=== PATIENT | male | born 1965 | race Caucasian/White ===

== ENCOUNTER → 2016-10-17 | Outpatient (CLI) | payer OTHER ==
[~2016-10-17] MED LIST: ANSHCCR/ TOP; ASCO500T3 PO; ASPI81TA28 PO; ATOR-26 PO; DEXT4CHW60 PO; DOCU-94 PO; EMOL-19 TOP; EMOL-31 TOP; FERR325T18 PO; FLUO20CA35 PO; GABA800T PO; GLUC-338 PO; INSDGI SC; INSHRIE SQ; INSUINJ17 SC; LEVO-366 PO; LEVO125T72 PO; LEVO300T5 PO; LSN25 PO; METF-384 PO
[2016-10-17 16:48] LABS: BASO % 1.5 %; BASO ABS # 0.11 K/uL (0-0.2); EOS % 1.7 %; HEMATOCRIT 30.4 % (42-52); IG% 0.1 %; LYMPH % 29.8 %; LYMPH ABS # 2.23 K/uL (1.2-3.4); MEAN CELL VOLUME 87.6 fL (80-100); MEAN CORPUSCULAR HEMOGLOBIN 30.3 pg (25-34); MEAN PLATELET VOLUME 9.7 fL (7.4-10.4); NEUT % 57.9 %; PLATELET COUNT 323 K/uL (130-400); RED BLOOD COUNT 3.47 M/uL (4.7-6.1); WHITE BLOOD COUNT 7.48 K/uL (4.8-10.8)
[2016-10-17 16:50] LABS: COMPLETE YES; MEAN CORPUSCULAR HGB CONC 34.5 g/dl (32-36)
[2016-10-17 17:09] LABS: ALB/GLOB RATIO 0.9 (0.9-2); ALKALINE PHOSPHATASE 87 U/L (45-117); ALT/SGPT 24 U/L (12-78); AST/SGOT 13 U/L (15-37); BLOOD UREA NITROGEN 23 mg/dl (7-18); BUN/CREATININE RATIO 18.9 (10-20); CALCIUM 8.8 mg/dl (8.5-10.1); CARBON DIOXIDE 30 mmol/L (21-32); CHLORIDE 104 mmol/L (98-107); GLUCOSE 63 mg/dl (70-99); POTASSIUM 4.6 mmol/L (3.5-5.1); SODIUM 141 mmol/L (136-145)
--- NOTE | 2016-10-20 07:46 | CODING QUERY NO DIAGNOSIS ---
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 Please assist us with providing a diagnosis/symptom for the test(s) below: A diagnosis/symptom was not documented on your Order. A valid diagnosis/symptom is required to bill all insurances. Please remember that we are unable to code a diagnosis of rule out, probable, possible, questionable, or suspected. Tests that require a diagnosis: DOS: 10/17/16 * CBC DIAGNOSIS: * CMP DIAGNOSIS: * TROPONIN DIAGNOSIS: Provider Signature: Date: Thank you Yos[facility] Information Management Once completed, please kindly fax back to [phone] For questions please call [phone]
== END ==
LOC: C.LABSPEC 16:22
PROVIDERS: ATTEND Nurse Practitioner Adult Health
DX: Z00.00 Encounter for general adult medical examination without abnormal findings (principal)

== ENCOUNTER 2016-11-14 06:16 | Emergency (ER) | payer OTHER ==
[~2016-11-14] VITALS: Ht 182.9 cm; Wt 73.5 kg
[~2016-11-14 06:16] MED LIST changes: -ASCO500T3 PO; -DEXT4CHW60 PO; -DOCU-94 PO; -EMOL-19 TOP; -FERR325T18 PO; -INSHRIE SQ; -LEVO-366 PO; -LEVO300T5 PO; -LSN25 PO; -METF-384 PO
[2016-11-14 06:24] VITALS: TEMP 36.6; Ht 182.9 cm; Wt 73.5 kg
[2016-11-14] MEDS ORDERED: DOCU-94 PO (06:32)
[2016-11-14] MEDS ORDERED: FERR325T18 PO (06:32)
[2016-11-14] MEDS ORDERED: LSN25 PO (06:36)
[2016-11-14] MEDS ORDERED: ANSHCCR/ TOP (06:36)
[2016-11-14] MEDS ORDERED: LEVO300T31 PO (06:36)
[2016-11-14] MEDS ORDERED: DEXT4CHW60 PO (06:36)
[2016-11-14] MEDS ORDERED: METF-384 PO (06:37)
[2016-11-14] MEDS ORDERED: ASCO500T3 PO (06:38)
[2016-11-14] MEDS ORDERED: EMOL-19 TOP (06:38)
[2016-11-14] MEDS ORDERED: INSHRIE SQ (06:42)
[2016-11-14 06:50] VITALS: O2SAT 99
--- NOTE | 2016-11-14 06:50 | EMERGENCY ROOM VISIT NOTE ---
History Report prepared by Sarah: Karla June Under the Supervision of: Dr. Charli Chaney M.D. First contact with patient: 06:36 Chief Complaint: SYNCOPE Stated Complaint: SYNCOPE,FALL,LACERATION Nursing Triage Summary: arrived via amb with als. pt got up to go to the br and had a syncopal episode struck his head on the bed. ? 10 second loc. small laceration to scalp and abrasion to right lateral back area. History of Present Illness The patient is a 51 year old male who presents to the Emergency Room with complaints of a sudden syncopal episode that occurred prior to arrival. He currently rates his discomfort as a 2/10 in severity. The patient states that this morning he had gotten up to go to the bathroom and then suddenly lost consciousness for 10 seconds. The patient notes that he hit the back of his head and now has a laceration to his scalp. He states that this has never happened in the past and notes that he feels back to baseline currently. The patient states that he felt his blood pressure was low this morning. He reports a normal fluid intake. The patient denies feeling ill recently. The patient denies any chest pain, shortness of breath, fever, or chills. He states that he has a history of diabetes and notes that his blood glucose levels have recently been running high. The patient states that he smokes 1 pack of cigarettes per day. He notes a history of anemia, but states that he is unsure why. Source of History: patient Onset: prior to arrival Position: other (global) Symptom Intensity: 2/10 Quality: other (syncopal episode) Timing: other (sudden) Associated Symptoms: + LOC, No SOB, No chest pain, No chills, No fevers Note: Associated Symptoms: blood pressure low Review of Systems All systems have been listed, reviewed, and are negative other than those previously mentioned. Please see Additional Medical History Sheet. Past Medical & Surgical Medical Problems: (1) Anemia (2) Depression (3) Diabetes mellitus type I (4) Dyslipidemia (5) Eczema (6) Hypothyroidism (7) Neuropathy Family History Diabetes mellitus Heart disease Social History Smoking Status: Current Every Day Smoker Alcohol Use: none Drug Use: none Marital Status: single Housing Status: other Occupation Status: unemployed Current/Historical Medications Scheduled Ascorbic Acid (Vitamin C), 500 MG PO BID Aspirin (Aspirin Ec), 81 MG PO DAILY Atorvastatin (Lipitor), 80 MG PO DAILY Emollient (Lubriderm), 1 APPLN TOP BID Ferrous Gluconate (Ferrous Gluconate), 324 MG PO TID Fluoxetine (Prozac), 20 MG PO DAILY Hydrocortisone (Hydrocortisone 2.5%), 1 APPLN TOP BID Insulin Glargine (Lantus), 24 UNITS SC QPM Insulin Human Regular (Humulin R), SQ TID Levothyroxine Sodium (Levothyroxine Sodium), 300 MCG PO DAILY Lisinopril (Lisinopril), 2.5 MG PO DAILY Metformin Hcl (Glucophage), 1,000 MG PO BID Scheduled PRN Dextrose (Diabetic Use) (Glucose), 8 GM PO QID PRN for UNDECIDED Docusate Sodium (Colace), 100 MG PO BID PRN for Constipation Gabapentin (Neurontin), 800 MG PO TID PRN for UNDECIDED Allergies Coded Allergies: NO KNOWN DRUG ALLERGIES (Verified Allergy, Unknown, NONE, 11/14/16) Physical Exam Vital Signs Date Time Temp Pulse Resp B/P Pulse Ox O2 Delivery O2 Flow Rate FiO2 11/14/16 11:35 100 16 148/97 98 11/14/16 10:29 11/14/16 10:23 71 141/89 99 71 120/87 89 120/78 11/14/16 09:52 70 18 151/96 98 Room Air 11/14/16 07:43 69 18 142/87 99 Room Air 11/14/16 07:05 68 132/78 72 121/76 78 93/63 11/14/16 06:50 99 Room Air 11/14/16 06:25 71 11/14/16 06:24 36.6 73 18 111/67 99 Room Air Physical Exam GENERAL: Patient awake, alert, oriented x 3. Patient follows commands. Patient does not appear toxic. Patient is adequately hydrated and well- nourished. SKIN: No erythema, pallor, cyanosis or rash HEENT: 3 cm linear laceration on the top of his scalp. Pupils equal, reactive to light and accommodation. Ears normal. No hemotympanum, Lion sign, or raccoon sign. Oral cavity and posterior pharynx appear normal. Neck: Without adenopathy, no neck vein distention. LUNGS: Clear to auscultation. No wheezes, no rales, no rhonchi. HEART: No murmurs. No gallops. No rubs ABDOMEN: No masses, no rebound, no hepatomegaly or splenomegaly. EXTREMITIES: No signs of trauma. No pedal or pretibial edema. No calf or thigh tenderness. NEUROLOGIC: Cranial nerves II-XII within normal limits. No gross motor sensory function deficits. Medical Decision & Procedures ER Provider Diagnostic Interpretation: X ray results are stated below per my interpretation and the radiologist's interpretation. CHEST ONE VIEW PORTABLE CLINICAL HISTORY: syncope TRAUMA COMPARISON STUDY: 04/28/2016 FINDINGS: The chest has an emphysematous configuration. The heart is normal in size. There is no failure. There is no focal pulmonary consolidation. There are no pleural effusions. There is no pneumothorax.[ IMPRESSION: No active disease in the chest. Electronically signed by: Jason Ram M.D. 11/14/2016 6:58 AM Dictated Date/Time: 11/14/2016 6:58 AM Laboratory Results 11/14/16 06:23 11/14/16 06:23 Test 11/14/16 06:23 Red Blood Count 3.85 M/uL (4.7-6.1) Mean Corpuscular Volume 88.8 fL (80-100) Mean Corpuscular Hemoglobin 29.9 pg (25-34) Mean Corpuscular Hemoglobin Concent 33.6 g/dl (32-36) RDW Standard Deviation 45.1 fL (36.4-46.3) RDW Coefficient of Variation 13.8 % (11.5-14.5) Mean Platelet Volume 9.7 fL (7.4-10.4) Anion Gap 4.0 mmol/L (3-11) Est Creatinine Clear Calc Drug Dose 64.2 ml/min Estimated GFR () 66.5 Estimated GFR (Non- 57.4 BUN/Creatinine Ratio 11.6 (10-20) Calcium Level 9.1 mg/dl (8.5-10.1) Total Bilirubin 0.4 mg/dl (0.2-1) Aspartate Amino Transf (AST/SGOT) 13 U/L (15-37) Alanine Aminotransferase (ALT/SGPT) 35 U/L (12-78) Alkaline Phosphatase 95 U/L (45-117) Troponin I < 0.015 ng/ml (0-0.045) Total Protein 7.0 gm/dl (6.4-8.2) Albumin 3.4 gm/dl (3.4-5.0) Globulin 3.6 gm/dl (2.5-4.0) Albumin/Globulin Ratio 0.9 (0.9-2) Beta-Hydroxybutyric Acid 0.85 mg/dL (0.2-2.81) Laboratory results as stated above per my review. Medications Administered Medications (Trade) Dose Ordered Sig/Radha Route Start Time Stop Time Status Last Admin Dose Admin Sodium Chloride 1,000 ml @ 999 mls/hr Q1H1M IV 11/14/16 07:00 11/14/16 12:09 DC 11/14/16 06:58 999 MLS/HR Sodium Chloride (Nss 1000ml) 1,000 ml @ 1,000 mls/hr Q1H ONCE IV 11/14/16 08:30 11/14/16 09:29 DC 11/14/16 08:30 1,000 MLS/HR Atorvastatin Calcium (Lipitor Tab) 80 mg ONE ONCE PO 11/14/16 09:00 11/14/16 09:01 DC 11/14/16 09:45 80 MG Fluoxetine HCl (Prozac Cap) 20 mg NOW ONCE PO 11/14/16 09:00 11/14/16 09:01 DC 11/14/16 09:44 20 MG Gabapentin (Neurontin Cap) 800 mg ONE ONCE PO 11/14/16 09:00 11/14/16 09:01 DC 11/14/16 09:45 800 MG Docusate Sodium (coLACE CAP) 100 mg NOW ONCE PO 11/14/16 09:00 11/14/16 09:01 DC 11/14/16 09:44 100 MG Levothyroxine Sodium (Synthroid Tab) 300 mcg ONE ONCE PO 11/14/16 09:00 11/14/16 09:01 DC 11/14/16 09:46 300 MCG Metformin HCl (Glucophage Tab) 1,000 mg ONE ONCE PO 11/14/16 09:00 11/14/16 09:01 DC 11/14/16 09:46 1,000 MG Procedure Location: Scalp Total length: 3 cm Complexity: Simple Verbal consent was obtained after the risks and benefits were explained, including but not limited to bleeding, scarring, infection, pain, and bone/ nerve damage. At this time, the risks of the procedure are less than the risks of NOT performing the procedure. A time out was taken and the correct patient and site identified. The scalp was prepped with betadine. Copious irrigation was performed using saline. The skin was re-prepped with betadine, the hair cleared from the wound, and a sterile field set. The wound was explored for foreign bodies and none found. Debridement was not performed. The wound edges were approximated using 3 surgical sunshine in the standard fashion. Hemostasis and excellent approximation was achieved. Antibacterial ointment and a sterile dressing applied. Detailed wound care instructions and signs and symptoms of infection reviewed with the patient. No complications and the patient tolerated the procedure well. ECG Indication: syncope Rate (beats per minute): 71 Rhythm: normal sinus Findings: no acute ischemic change, no ectopy ED Course 0636: Past medical records reviewed. The patient was evaluated in room A2. A complete history and physical examination was performed. 0700: Ordered Sodium Chloride 1000 ml @ 999 mls/hr IV. 0817: I reevaluated the patient and he is resting comfortably. 0830: Ordered Sodium Chloride 1000 ml @ 1000 mls/hr IV. 0845: I performed the staple laceration repair at this time. See procedure note for further detail. 0900: Ordered Metformin HCl 1000 mg PO, Synthroid Tab 300 mcg PO, Colace Cp 100 mg PO, Gabapentin 800 mg PO, Prozac Cp 20 mg PO, Lipitor Tab 80 mg PO. 1115: I reevaluated the patient and he is resting comfortably. I discussed all the exam findings with him and I discussed the treatment plan. He verbalized complete understanding and agreement. The patient is ready to go home. Medical Decision Nurses notes reviewed. Medical history sheet reviewed. Differential diagnosis includes but is not limited to: arrhythmia, metabolic disorder, hypoglycemia, anemia, TIA, CVA, vasovagal syncope. The patient had a syncopal episode this morning and fell striking the top of his head. He incurred a 3 cm laceration on his scalp. Multiple labs, imaging and EKG were obtained here. Please see above. The patient was felt to be slightly orthostatic although he is most likely orthostatic all the time. He has a history of diabetic neuropathy. He normally uses a cane. The patient has no evidence for an acute cardiac arrhythmia or other cardiopulmonary pathology. Lab work was evaluated. Blood sugar slightly elevated. The patient had not yet taken any of his meds this morning. The patient was given a few liters of fluid here and did feel significantly better. The laceration was repaired using 3 sunshine. The patient was felt safe to return to the retirement. Impression Primary Impression: Orthostatic hypotension Additional Impressions: Anemia Diabetes Scalp laceration Scribe Attestation The scribe's documentation has been prepared under my direction and personally reviewed by me in its entirety. I confirm that the note above accurately reflects all work, treatment, procedures, and medical decision making performed by me. Departure Information Dispostion Home / Self-Care Referrals Deniz ESQUIVEL (PCP) Forms HOME CARE DOCUMENTATION FORM, IMPORTANT VISIT INFORMATION Patient Instructions My [facility] Additional Instructions Continue all of your current medications as prescribed. Drink extra fluids. [place] should be removed in 7-8 days Clean daily with warm soap and water and cover with bacitracin ointment. Problem Qualifiers
[2016-11-14 06:58] LABS: HEMATOCRIT 34.2 % (42-52); MEAN CELL VOLUME 88.8 fL (80-100); MEAN CORPUSCULAR HEMOGLOBIN 29.9 pg (25-34); MEAN CORPUSCULAR HGB CONC 33.6 g/dl (32-36); MEAN PLATELET VOLUME 9.7 fL (7.4-10.4); PLATELET COUNT 324 K/uL (130-400); RED BLOOD COUNT 3.85 M/uL (4.7-6.1); WHITE BLOOD COUNT 7.08 K/uL (4.8-10.8)
[2016-11-14] MEDS ORDERED: SODIUM CHLORIDE 0.9% 1000ML 1,000 ML IV SCH (07:00)
--- NOTE | 2016-11-14 07:01 | DIAGNOSTIC IMAGING REPORT ---
CHEST ONE VIEW PORTABLE CLINICAL HISTORY: syncope TRAUMA COMPARISON STUDY: 04/28/2016 FINDINGS: The chest has an emphysematous configuration. The heart is normal in size. There is no failure. There is no focal pulmonary consolidation. There are no pleural effusions. There is no pneumothorax.[ IMPRESSION: No active disease in the chest. Electronically signed by: Jason Ram M.D. 11/14/2016 6:58 AM Dictated Date/Time: 11/14/2016 6:58 AM
[2016-11-14 07:05] LABS: ALT/SGPT 35 U/L (12-78); AST/SGOT 13 U/L (15-37); BLOOD UREA NITROGEN 16 mg/dl (7-18); BUN/CREATININE RATIO 11.6 (10-20); CALCIUM 9.1 mg/dl (8.5-10.1); CARBON DIOXIDE 31 mmol/L (21-32); CHLORIDE 102 mmol/L (98-107); GLUCOSE 309 mg/dl (70-99); POTASSIUM 4.8 mmol/L (3.5-5.1); SODIUM 137 mmol/L (136-145)
[2016-11-14 07:08] LABS: ALB/GLOB RATIO 0.9 (0.9-2); ALKALINE PHOSPHATASE 95 U/L (45-117)
[2016-11-14 07:15] LABS: BETA-HYDROXYBUTYRATE 0.85 mg/dL (0.2-2.81)
[2016-11-14] MEDS ORDERED: SODIUM CHLORIDE 0.9% 1000ML 1,000 ML IV ONE (08:30)
[2016-11-14] MEDS ORDERED: LEVOTHYROXINE 200 MCG TAB PO ONE (09:00)
[2016-11-14] MEDS ORDERED: GABAPENTIN 400 MG CAP PO ONE (09:00)
[2016-11-14] MEDS ORDERED: METFORMIN HCL 500 MG TAB PO ONE (09:00)
[2016-11-14] MEDS ORDERED: ATORVASTATIN 40 MG TAB PO ONE (09:00)
[2016-11-14] MEDS ORDERED: FLUOXETINE HCL 20 MG CAP PO ONE (09:00)
[2016-11-14] MEDS ORDERED: DOCUSATE SODIUM 100 MG CAP PO ONE (09:00)
[2016-11-14 11:35] VITALS: BP 148/97; PULSE 100; O2SAT 98
[2017-06-28] MEDS ORDERED: LVQ750 PO (18:46)
[2017-06-28] MEDS ORDERED: DXY100 PO (18:46)
[2017-06-28] MEDS ORDERED: SYN50 PO (19:05)
== END 2016-11-14 11:36 | disposition home or self-care (01) ==
LOC: EDBD 06:16 → C.EDA 06:18
DX: I95.1 Orthostatic hypotension (principal); S01.01XA Laceration without foreign body of scalp, initial encounter; W22.09XA Striking against other stationary object, initial encounter; W19.XXXA Unspecified fall, initial encounter; E10.40 Type 1 diabetes mellitus with diabetic neuropathy, unspecified; D64.9 Anemia, unspecified; F32.9 Major depressive disorder, single episode, unspecified; E78.5 Hyperlipidemia, unspecified; E03.9 Hypothyroidism, unspecified; F17.210 Nicotine dependence, cigarettes, uncomplicated; Z83.3 Family history of diabetes mellitus; Z79.82 Long term (current) use of aspirin; Z79.899 Other long term (current) drug therapy; Z79.4 Long term (current) use of insulin

== ENCOUNTER 2016-12-09 12:22 | Emergency (ER) | payer OTHER ==
[~2016-12-09] VITALS: Ht 182.9 cm; Wt 78.8 kg
[~2016-12-09 12:22] MED LIST changes: +ASCO500T3 PO; +DEXT4CHW60 PO; +DOCU-94 PO; +EMOL-19 TOP; -EMOL-31 TOP; +FERR325T18 PO; -GLUC-338 PO; +INSHRIE SQ; -INSUINJ17 SC; -LEVO125T72 PO; +LEVO300T31 PO; +LSN25 PO; +METF-384 PO
[2016-12-09 12:39] VITALS: O2SAT 100
[2016-12-09 12:41] VITALS: TEMP 36.5; Ht 182.9 cm; Wt 78.8 kg
[2016-12-09] MEDS ORDERED: SODIUM CHLORIDE 0.9% 1000ML 1,000 ML IV STA ×2 (12:57)
[2016-12-09 13:16] LABS: BASO % 1.9 %; BASO ABS # 0.11 K/uL (0-0.2); COMPLETE YES; EOS % 4.2 %; HEMATOCRIT 30.3 % (42-52); IG% 0.2 %; LYMPH % 37.9 %; LYMPH ABS # 2.17 K/uL (1.2-3.4); MEAN CELL VOLUME 89.6 fL (80-100); MEAN CORPUSCULAR HEMOGLOBIN 30.5 pg (25-34); MEAN PLATELET VOLUME 8.9 fL (7.4-10.4); NEUT % 48.8 %; PLATELET COUNT 316 K/uL (130-400); RED BLOOD COUNT 3.38 M/uL (4.7-6.1); WHITE BLOOD COUNT 5.73 K/uL (4.8-10.8)
[2016-12-09] MEDS ORDERED: NovoLIN-R INSULIN PER UNIT CHARGE IV STA (13:22)
[2016-12-09 13:25] LABS: INR 0.9 (0.9-1.1); PROTHROMBIN TIME (PATIENT) 10.1 SECONDS (9.0-12.0)
--- NOTE | 2016-12-09 13:25 | DIAGNOSTIC IMAGING REPORT ---
CHEST ONE VIEW PORTABLE CLINICAL HISTORY: EVALUATE WEAKNESS mental status change COMPARISON STUDY: 11/14/2016 FINDINGS: Possible right suprahilar nodular density measuring 8.5 mm currently. Lungs otherwise are clear. Diaphragms smooth. Minimal chronic colonic atelectasis left base. IMPRESSION: 1. 8.5 mm nodular density versus overlap artifact right suprahilar region. 2. CT of the chest is suggested as follow-up. Electronically signed by: Miguel Connolly M.D. 12/09/2016 1:24 PM Dictated Date/Time: 12/09/2016 1:22 PM
[2016-12-09 13:38] LABS: ALKALINE PHOSPHATASE 79 U/L (45-117); ALT/SGPT 22 U/L (12-78); AST/SGOT 11 U/L (15-37); BLOOD UREA NITROGEN 21 mg/dl (7-18); BUN/CREATININE RATIO 17.9 (10-20); CARBON DIOXIDE 27 mmol/L (21-32); CHLORIDE 104 mmol/L (98-107); CKMB/CK RATIO 2.2 (0-3.0); GLUCOSE 483 mg/dl (70-99); MAGNESIUM 2.2 mg/dl (1.8-2.4); SODIUM 136 mmol/L (136-145)
[2016-12-09 13:59] LABS: BETA-HYDROXYBUTYRATE 0.64 mg/dL (0.2-2.81)
[2016-12-09] MEDS ORDERED: OPTIRAY 320 IV PRN (16:00)
--- NOTE | 2016-12-09 16:31 | DIAGNOSTIC IMAGING REPORT ---
CHEST CTA for PULMONARY ARTERIES CT DOSE: 271.10 mGy.cm HISTORY: Abnormal chest x-ray. Hypotension. Weakness. TECHNIQUE: Multiaxial CT images of the chest were performed following the intravenous administration of contrast to evaluate the pulmonary arteries. Maximal intensity projection images were also obtained. COMPARISON STUDY: Chest CTA 04/28/2016. FINDINGS: There is a normal caliber thoracic aorta with no evidence for dissection. There is no evidence for pulmonary embolus. No pleural effusions. No pneumothorax. The liver and spleen are unremarkable. There is a right renal cyst. No mediastinal or hilar lymphadenopathy. Mild emphysema. Patchy groundglass densities at the lung bases. This favors dependent change. A 3 mm ground glass nodule within the lingula. This is best seen on image 196. This is of doubtful clinical significance given its small size. This remains stable. Slightly distended and fluid-filled esophagus. This also remains unchanged. No right suprahilar nodules identified. IMPRESSION: 1. No evidence for pulmonary embolus. 2. Patchy ground glass densities at the lung bases favor mild dependent change. Otherwise, no focal lung consolidations to suggest pneumonia. 3. Mild emphysema. 4. Stable 3 mm groundglass nodule within the left upper lobe. Electronically signed by: Tani Contreras M.D. 12/09/2016 4:29 PM Dictated Date/Time: 12/09/2016 4:21 PM
[2016-12-09 17:56] VITALS: BP 115/72; PULSE 67; O2SAT 98
--- NOTE | 2016-12-09 21:39 | EMERGENCY ROOM VISIT NOTE ---
History Report prepared by Sarah: Sangeetha Valencia Under the Supervision of: Dr. Celestino Garcia M.D. First contact with patient: 12:57 Chief Complaint: HYPOTENSION Stated Complaint: HYPOTENSIVE History of Present Illness The patient is a 51 year old male who presents to the Emergency Room with complaints of persistent hypotension that was first noticed yesterday. The patient came to the ED via ambulance from [facility]. The patient was going to the nurse's station yesterday when he felt dizzy and experienced syncope. The patient fell but denies any injuries. His blood pressure was checked immediately and was found to be 80/50. He had an IV placed and has received 4 L of NSS without any relief of his hypotension. [facility] staff felt that the patient needed to be evaluated further so they sent him into the ED. Pt denies headache, fevers, chills, cough, diaphoresis, visual changes, neck pain, chest pain, breathing difficulties, nausea, vomiting, abdominal pain, back pain, melena, hematochezia, urinary symptoms, numbness, weakness, lymphadenopathy, rash, or other complaints. The patient states that he has experienced similar episodes in the past, but they have not identified the cause. The patient has diabetes and states that his sugars have been fluctuating. His blood sugar in the ED was 510, but he states that it is not uncommon for his blood sugar to be that high. Source of History: patient Onset: yesterday Position: other (global) Quality: other (hypotension) Timing: other (persistent) Associated Symptoms: + LOC Note: dizziness Review of Systems See HPI for pertinent positives and negatives. A total of ten systems were reviewed and were otherwise negative. Past Medical & Surgical Medical Problems: (1) Anemia (2) Depression (3) Diabetes mellitus type I (4) Dyslipidemia (5) Eczema (6) Hypothyroidism (7) Neuropathy (8) Pneumonia Family History Diabetes mellitus Heart disease Social History Smoking Status: Current Every Day Smoker Alcohol Use: none Drug Use: none Marital Status: single Housing Status: other Occupation Status: unemployed Current/Historical Medications Scheduled Ascorbic Acid (Vitamin C), 500 MG PO BID Aspirin (Aspirin Ec), 81 MG PO DAILY Atorvastatin (Lipitor), 80 MG PO DAILY Emollient (Lubriderm), 1 APPLN TOP BID Ferrous Gluconate (Ferrous Gluconate), 324 MG PO TID Fluoxetine (Prozac), 20 MG PO DAILY Hydrocortisone (Hydrocortisone 2.5%), 1 APPLN TOP BID Insulin Glargine (Lantus), 24 UNITS SC QPM Insulin Human Regular (Humulin R), SQ TID Levothyroxine Sodium (Levothyroxine Sodium), 300 MCG PO DAILY Lisinopril (Lisinopril), 2.5 MG PO DAILY Metformin Hcl (Glucophage), 1,000 MG PO BID Scheduled PRN Dextrose (Diabetic Use) (Glucose), 8 GM PO QID PRN for UNDECIDED Docusate Sodium (Colace), 100 MG PO BID PRN for Constipation Gabapentin (Neurontin), 800 MG PO TID PRN for UNDECIDED Allergies Coded Allergies: NO KNOWN DRUG ALLERGIES (Verified Allergy, Unknown, NONE, 11/14/16) Physical Exam Vital Signs Date Time Temp Pulse Resp B/P Pulse Ox O2 Delivery O2 Flow Rate FiO2 12/09/16 17:56 67 18 115/72 98 Room Air 12/09/16 16:32 68 12/09/16 15:54 88 18 106/65 98 Room Air 12/09/16 14:24 70 16 111/70 98 12/09/16 13:59 70 18 150/91 99 Room Air 12/09/16 12:52 154/86 141/79 119/74 12/09/16 12:41 36.5 70 18 154/86 98 Room Air 12/09/16 12:39 100 Room Air 12/09/16 12:31 77 Physical Exam GENERAL: Awake, alert, well-appearing, in no distress HENT: Normocephalic, atraumatic. Oropharynx unremarkable. EYES: Normal conjunctiva. Sclera non-icteric. NECK: Supple. No nuchal rigidity. FROM. No JVD. RESPIRATORY: Clear to auscultation. CARDIAC: Regular rate, normal rhythm. Extremities warm and well perfused. Pulses equal. ABDOMEN: Soft, non-distended. No tenderness to palpation. No rebound or guarding. No masses. RECTAL: Deferred. MUSCULOSKELETAL: Chest examination reveals no tenderness. The back is symmetrical on inspection without obvious abnormality. There is no CVA tenderness to palpation. No joint edema. LOWER EXTREMITIES: Calves are equal size bilaterally and non-tender. No edema. No discoloration. NEURO: Normal sensorium. No sensory or motor deficits noted. SKIN: No rash or jaundice noted. Medical Decision & Procedures ER Provider Diagnostic Interpretation: Radiology results as stated below per my review and radiologist interpretation: CHEST ONE VIEW PORTABLE FINDINGS: Possible right suprahilar nodular density measuring 8.5 mm currently. Lungs otherwise are clear. Diaphragms smooth. Minimal chronic colonic atelectasis left base. IMPRESSION: 1. 8.5 mm nodular density versus overlap artifact right suprahilar region. 2. CT of the chest is suggested as follow-up. Electronically signed by: Miguel Connolly M.D. 12/09/2016 1:24 PM Dictated Date/Time: 12/09/2016 1:22 PM CHEST CTA for PULMONARY ARTERIES FINDINGS: There is a normal caliber thoracic aorta with no evidence for dissection. There is no evidence for pulmonary embolus. No pleural effusions. No pneumothorax. The liver and spleen are unremarkable. There is a right renal cyst. No mediastinal or hilar lymphadenopathy. Mild emphysema. Patchy groundglass densities at the lung bases. This favors dependent change. A 3 mm ground glass nodule within the lingula. This is best seen on image 196. This is of doubtful clinical significance given its small size. This remains stable. Slightly distended and fluid-filled esophagus. This also remains unchanged. No right suprahilar nodules identified. IMPRESSION: 1. No evidence for pulmonary embolus. 2. Patchy ground glass densities at the lung bases favor mild dependent change. Otherwise, no focal lung consolidations to suggest pneumonia. 3. Mild emphysema. 4. Stable 3 mm groundglass nodule within the left upper lobe. Electronically signed by: Tani Contreras M.D. 12/09/2016 4:29 PM Dictated Date/Time: 12/09/2016 4:21 PM Laboratory Results 12/09/16 12:30 Red Blood Count 3.38, Mean Corpuscular Volume 89.6, Mean Corpuscular Hemoglobin 30.5, Mean Corpuscular Hemoglobin Concent 34.0, Mean Platelet Volume 8.9, Neutrophils (%) (Auto) 48.8, Lymphocytes (%) (Auto) 37.9, Monocytes (%) (Auto) 7.0, Eosinophils (%) (Auto) 4.2, Basophils (%) (Auto) 1.9, Neutrophils # (Auto) 2.80, Lymphocytes # (Auto) 2.17, Monocytes # (Auto) 0.40, Eosinophils # (Auto) 0.24, Basophils # (Auto) 0.11 12/09/16 12:30 Test 12/09/16 12:30 12/09/16 14:23 White Blood Count 5.73 K/uL (4.8-10.8) Red Blood Count 3.38 M/uL (4.7-6.1) Hemoglobin 10.3 g/dL (14.0-18.0) Hematocrit 30.3 % (42-52) Mean Corpuscular Volume 89.6 fL (80-100) Mean Corpuscular Hemoglobin 30.5 pg (25-34) Mean Corpuscular Hemoglobin Concent 34.0 g/dl (32-36) Platelet Count 316 K/uL (130-400) Mean Platelet Volume 8.9 fL (7.4-10.4) Neutrophils (%) (Auto) 48.8 % Lymphocytes (%) (Auto) 37.9 % Monocytes (%) (Auto) 7.0 % Eosinophils (%) (Auto) 4.2 % Basophils (%) (Auto) 1.9 % Neutrophils # (Auto) 2.80 K/uL (1.4-6.5) Lymphocytes # (Auto) 2.17 K/uL (1.2-3.4) Monocytes # (Auto) 0.40 K/uL (0.11-0.59) Eosinophils # (Auto) 0.24 K/uL (0-0.5) Basophils # (Auto) 0.11 K/uL (0-0.2) RDW Standard Deviation 45.3 fL (36.4-46.3) RDW Coefficient of Variation 13.7 % (11.5-14.5) Immature Granulocyte % (Auto) 0.2 % Immature Granulocyte # (Auto) 0.01 K/uL (0.00-0.02) Prothrombin Time 10.1 SECONDS (9.0-12.0) Prothromb Time International Ratio 0.9 (0.9-1.1) Activated Partial Thromboplast Time 26.8 SECONDS (21.0-31.0) Partial Thromboplastin Ratio 1.0 Anion Gap 5.0 mmol/L (3-11) Est Creatinine Clear Calc Drug Dose 79.1 ml/min Estimated GFR () 80.1 Estimated GFR (Non- 69.1 BUN/Creatinine Ratio 17.9 (10-20) Calcium Level 8.0 mg/dl (8.5-10.1) Magnesium Level 2.2 mg/dl (1.8-2.4) Total Bilirubin 0.4 mg/dl (0.2-1) Direct Bilirubin < 0.1 mg/dl (0-0.2) Aspartate Amino Transf (AST/SGOT) 11 U/L (15-37) Alanine Aminotransferase (ALT/SGPT) 22 U/L (12-78) Alkaline Phosphatase 79 U/L (45-117) Total Creatine Kinase 69 U/L (39-308) Creatine Kinase MB 1.5 ng/ml (0.5-3.6) Creatine Kinase MB Ratio 2.2 (0-3.0) Troponin I < 0.015 ng/ml (0-0.045) Total Protein 6.3 gm/dl (6.4-8.2) Albumin 3.0 gm/dl (3.4-5.0) Lipase 563 U/L (73-393) Beta-Hydroxybutyric Acid 0.64 mg/dL (0.2-2.81) Thyroid Stimulating Hormone (TSH) 2.980 uIu/ml (0.300-4.500) Bedside Glucose 328 mg/dl (70-99) Laboratory results reviewed by me Medications Administered Medications (Trade) Dose Ordered Sig/Radha Route Start Time Stop Time Status Last Admin Dose Admin Sodium Chloride 1,000 ml @ 125 mls/hr Q8H STAT IV 12/09/16 12:57 12/09/16 18:20 DC 12/09/16 12:57 125 MLS/HR Sodium Chloride (Nss 1000ml) 1,000 ml @ 999 mls/hr Q1H1M STAT IV 12/09/16 12:57 12/09/16 13:57 DC 12/09/16 13:38 999 MLS/HR Insulin Human Regular (novoLIN-R U-100 PER UNIT) 10 units NOW STAT IV 12/09/16 13:22 12/09/16 13:23 DC 12/09/16 13:46 10 UNITS ECG Indication: other (hypotension) Rate (beats per minute): 71 Rhythm: normal sinus Findings: no acute ischemic change, no ectopy ED Course 1257: Ordered Sodium Chloride 1000 ml @ 999 mls/hr IV, Sodium Chloride 1000 ml @ 125 mls/hr IV 1300: The patient was evaluated in room B5. A complete history and physical exam was performed. 1322: Ordered Insulin Human Regular 10 units IV 1547: I reassessed the patient and discussed the option of a CT scan. He expressed that he would like to have the CT scan done. 1715: Discussed the patient's case with Dr. Brown who is the [facility] doctor. She agrees with sending the patient [facility] to the [facility]. She will work him up as an outpatient and she will see him tomorrow morning. 1722: I reevaluated the patient. Discussed results and discharge instructions: she verbalized understanding and agreement. The patient is ready for discharge. Medical Decision Prior records/ancillary studies reviewed. Triage Nursing notes reviewed and agree them. The patient's history was concerning for hypertension. Differential diagnosis: Etiologies such as infection, hypoglycemia, electrolyte abnormalities, cardiac sources, intracerebral event, toxicologic, neurologic, as well as others were entertained. Physical examination: As above. Clinically no abnormalities found. The patient was asymptomatic orthostatic testing was unremarkable. ER treatment provided: IV hydration with normal saline IV insulin On reassessment the patient felt normal. Diagnostics interpretation by me: ECG: Normal slight anemia on CBC but no leukocytosis. The labs revealed Chemistry panel revealed hyperglycemia without evidence of DKA. His glucose went from 508 to 483 to 328. Lipase was minimally elevated but there is no evidence of pancreatitis and physical examination the patient had no pain. TSH and cardiac markers negative. Imaging studies: Chest x-ray and CT scan as above The patient had a slightly abnormal chest x-ray and radiology recommended CT imaging. He was evaluated with a PE study given the hypotension and none was found. No significant acute problems were noted on his chest CT. The patient had no hypotension in the emergency department. He has no symptoms. Consultation: A consultation was placed with the on-call [facility] physician, Dr. Brown. The case was discussed and diagnostics were reviewed. As the patient is a symptomatic and doing well at this time she will have the patient return back to the [facility] for observation and continued workup as an outpatient. By the evaluation outlined above emergent etiologies such as infection, hypoglycemia, electrolyte abnormalities, cardiac sources, intracerebral event, toxicologic, neurologic,as well as others were deemed relatively unlikely. The patient was informed about the findings as listed above. All questions were answered and he was pleased with the treatment. Return instructions were outlined and the patient was discharged in stable condition. The chart was completed utilizing NPC III Speech voice recognition software. Grammatical errors, random word insertions, pronoun errors, and incomplete sentences are an occasional consequence of this system due to software limitations, ambient noise, and hardware issues. Any formal questions or concerns about the content, text, or information contained within the body of this dictation should be directly addressed to the physician for clarification. Consults Time Called: 1704 Consulting Physician: Dr. Brown - [facility] Doctor Returned Call: 1715 Discussed the patient's case with Dr. Brown who is the [facility] doctor. She agrees with sending the patient back to the [facility]. She will work him up as an outpatient and she will see him tomorrow morning. Impression Primary Impression: Hypotension Scribe Attestation The scribe's documentation has been prepared under my direction and personally reviewed by me in its entirety. I confirm that the note above accurately reflects all work, treatment, procedures, and medical decision making performed by me. Departure Information Dispostion Other ([facility]) Referrals Deniz ESQUIVEL (PCP) Forms HOME CARE DOCUMENTATION FORM, IMPORTANT VISIT INFORMATION, WORK / SCHOOL INSTRUCTIONS Patient Instructions My [facility] Additional Instructions Continue current medications. Monitor blood glucose at least 4 times a day and adjust treatment accordingly. Proceed back to the [facility] for monitoring. Dr. Brown is aware and will be following the patient. Return to the ER for headache, passing out, difficulty breathing, fevers, numbness, tingling, worsening of your condition, or as needed. Problem Qualifiers Primary Impression: Hypotension
[2017-06-28] MEDS ORDERED: DXY100 PO (18:46)
[2017-06-28] MEDS ORDERED: LVQ750 PO (18:46)
[2017-06-28] MEDS ORDERED: SYN50 PO (19:05)
== END 2016-12-09 17:56 | disposition home or self-care (01) ==
LOC: EDBD 12:22 → C.EDB 12:23
DX: I95.9 Hypotension, unspecified (principal); D64.9 Anemia, unspecified; F32.9 Major depressive disorder, single episode, unspecified; E78.5 Hyperlipidemia, unspecified; E03.9 Hypothyroidism, unspecified; Z87.01 Personal history of pneumonia (recurrent); E10.40 Type 1 diabetes mellitus with diabetic neuropathy, unspecified; Z83.3 Family history of diabetes mellitus; F17.210 Nicotine dependence, cigarettes, uncomplicated; Z79.82 Long term (current) use of aspirin; Z79.4 Long term (current) use of insulin; Z79.899 Other long term (current) drug therapy

== ENCOUNTER 2017-06-21 12:42 | Inpatient (IN) | payer OTHER ==
[~2017-06-21] VITALS: Ht 182.9 cm; Wt 76.5 kg
[2017-06-21 13:28] LABS: BASO % 0.6 %; BASO ABS # 0.06 K/uL (0-0.2); COMPLETE YES; EOS % 0.3 %; HEMATOCRIT 29.2 % (42-52); IG% 0.3 %; LYMPH % 13.5 %; LYMPH ABS # 1.47 K/uL (1.2-3.4); MEAN CELL VOLUME 85.9 fL (80-100); MEAN CORPUSCULAR HEMOGLOBIN 29.4 pg (25-34); MEAN CORPUSCULAR HGB CONC 34.2 g/dl (32-36); MEAN PLATELET VOLUME 8.3 fL (7.4-10.4); MONO % 7.5 %; NEUT % 77.8 %; PLATELET COUNT 346 K/uL (130-400); WHITE BLOOD COUNT 10.88 K/uL (4.8-10.8)
[2017-06-21] MEDS ORDERED: SODIUM CHLORIDE 0.9% 500ML 500 ML IV STA (13:33)
[2017-06-21 13:47] LABS: BUN/CREATININE RATIO 12.5 (10-20); CALCIUM 8.4 mg/dl (8.5-10.1); CREATININE 1.29 mg/dl (0.60-1.40); POTASSIUM 4.4 mmol/L (3.5-5.1)
--- NOTE | 2017-06-21 13:47 | EMERGENCY ROOM VISIT NOTE ---
History First contact with patient: 13:23 Chief Complaint: DIZZY Stated Complaint: DIZZY/HYPOTENSION Nursing Triage Summary: Pt has been dizzy for the past month, but had an increase in severity today. History of Present Illness The patient is a 52 year old male who presents to the Emergency Room with complaints of lightheadedness that has been going on for the last few months. It is worse with standing. The patient resides at [facility]. His blood pressure was taken this morning and noted to be low at 70/50s. The patient denies any headache. He was slightly nauseated this morning. He reports eating and drinking normally. She denies any pain in his chest. No heart palpitations. No difficulty breathing. No recent illnesses. The patient is a type I diabetic. He does note that he has been feeling hypoglycemic at approximately 3 in the morning fairly consistently. He did not actually take his blood sugar at that time. Blood sugar at lunchtime today was 150. He denies any recent changes in medication. He does take medication for blood pressure Review of Systems 10 system review performed and negative unless noted in HPI or below Past Medical/Surgical History Medical Problems: (1) Anemia (2) Depression (3) Diabetes mellitus type I (4) Dyslipidemia (5) Eczema (6) Hypothyroidism (7) Neuropathy (8) Pneumonia Family History Diabetes mellitus Heart disease Social History Smoking Status: Current Every Day Smoker Alcohol Use: none Drug Use: none Marital Status: single Housing Status: other Occupation Status: unemployed Current/Historical Medications Scheduled Aspirin (Aspirin Ec), 81 MG PO DAILY Atorvastatin (Lipitor), 80 MG PO DAILY Dextrose (Diabetic Use) (Glucose), 2 TAB PO QID Fluoxetine (Prozac), 3 CAP PO DAILY Gabapentin (Neurontin), 800 MG PO TID Insulin Glargine (Lantus), 26 UNITS SC QPM Insulin Human Regular (Humulin R), SQ TID Levothyroxine Sodium (Levothyroxine Sodium), 300 MCG PO DAILY Lisinopril (Lisinopril), 2.5 MG PO DAILY Metformin Hcl (Glucophage), 1,000 MG PO BID Scheduled PRN Docusate Sodium (Colace), 100 MG PO BID PRN for Constipation Physical Exam Vital Signs Date Time Temp Pulse Resp B/P (MAP) Pulse Ox O2 Delivery O2 Flow Rate FiO2 06/21/17 15:13 75 20 108/68 97 Room Air 06/21/17 14:15 76 18 112/69 98 Room Air 80 95/56 82 73/47 06/21/17 12:56 36.8 73 18 121/75 98 Room Air 06/21/17 12:51 76 Physical Exam VITALS: Vitals are noted on the nurse's note and reviewed by myself. Vital signs stable. GENERAL: 52-year-old male, in no acute distress, nondiaphoretic, well-developed well-nourished. SKIN: The skin was without rashes, erythema, edema, or bruising. HEAD: Normocephalic atraumatic. EYES: Pupils equal round and reactive to light and accommodation. Conjunctivae without injection, sclerae without icterus. Extraocular movements intact. MOUTH: Mucous membranes slightly dry. Poor dental hygiene.. NECK: Supple without nuchal rigidity. No lymphadenopathy.. No JVD. HEART: Regular rate and rhythm without murmurs gallops or rubs. LUNGS: Clear to auscultation bilaterally without wheezes, rales or rhonchi. No accessory muscle use. ABDOMEN: Positive bowel sounds x 4.Soft,. MUSCULOSKELETAL: No muscle atrophy, erythema, or edema noted. Strength 5/5 throughout. NEURO: Patient was alert and oriented to person place and time. Normal sensation to touch. No focal neurological deficits. Medical Decision & Procedures ER Provider Diagnostic Interpretation: Chest x-ray IMPRESSION: Chronic and emphysematous change. No acute process. The above report was generated using voice recognition software. It may contain grammatical, syntax or spelling errors. Electronically signed by: Miguel Connolly M.D. 06/21/2017 1:51 PM Laboratory Results 06/21/17 13:15 Red Blood Count 3.40, Mean Corpuscular Volume 85.9, Mean Corpuscular Hemoglobin 29.4, Mean Corpuscular Hemoglobin Concent 34.2, Mean Platelet Volume 8.3, Neutrophils (%) (Auto) 77.8, Lymphocytes (%) (Auto) 13.5, Monocytes (%) (Auto) 7.5, Eosinophils (%) (Auto) 0.3, Basophils (%) (Auto) 0.6, Neutrophils # (Auto) 8.47, Lymphocytes # (Auto) 1.47, Monocytes # (Auto) 0.82, Eosinophils # (Auto) 0.03, Basophils # (Auto) 0.06 06/21/17 13:15 Test 06/21/17 13:15 06/21/17 13:32 White Blood Count 10.88 K/uL (4.8-10.8) Red Blood Count 3.40 M/uL (4.7-6.1) Hemoglobin 10.0 g/dL (14.0-18.0) Hematocrit 29.2 % (42-52) Mean Corpuscular Volume 85.9 fL (80-100) Mean Corpuscular Hemoglobin 29.4 pg (25-34) Mean Corpuscular Hemoglobin Concent 34.2 g/dl (32-36) Platelet Count 346 K/uL (130-400) Mean Platelet Volume 8.3 fL (7.4-10.4) Neutrophils (%) (Auto) 77.8 % Lymphocytes (%) (Auto) 13.5 % Monocytes (%) (Auto) 7.5 % Eosinophils (%) (Auto) 0.3 % Basophils (%) (Auto) 0.6 % Neutrophils # (Auto) 8.47 K/uL (1.4-6.5) Lymphocytes # (Auto) 1.47 K/uL (1.2-3.4) Monocytes # (Auto) 0.82 K/uL (0.11-0.59) Eosinophils # (Auto) 0.03 K/uL (0-0.5) Basophils # (Auto) 0.06 K/uL (0-0.2) RDW Standard Deviation 47.3 fL (36.4-46.3) RDW Coefficient of Variation 15.0 % (11.5-14.5) Immature Granulocyte % (Auto) 0.3 % Immature Granulocyte # (Auto) 0.03 K/uL (0.00-0.02) Anion Gap 6.0 mmol/L (3-11) Est Creatinine Clear Calc Drug Dose 72.1 ml/min Estimated GFR () 72.9 Estimated GFR (Non- 62.9 BUN/Creatinine Ratio 12.5 (10-20) Calcium Level 8.4 mg/dl (8.5-10.1) Total Bilirubin 0.2 mg/dl (0.2-1) Aspartate Amino Transf (AST/SGOT) 21 U/L (15-37) Alanine Aminotransferase (ALT/SGPT) 17 U/L (12-78) Alkaline Phosphatase 99 U/L (45-117) Total Creatine Kinase 231 U/L (39-308) Creatine Kinase MB 5.2 ng/ml (0.5-3.6) Creatine Kinase MB Ratio 2.3 (0-3.0) Total Protein 6.6 gm/dl (6.4-8.2) Albumin 2.5 gm/dl (3.4-5.0) Globulin 4.1 gm/dl (2.5-4.0) Albumin/Globulin Ratio 0.6 (0.9-2) Thyroid Stimulating Hormone (TSH) 52.800 uIu/ml (0.300-4.500) Free Thyroxine 0.46 ng/dl (0.80-1.60) Bedside Troponin I 0.030 ng/ml (0-0.045) Medications Administered Medications (Trade) Dose Ordered Sig/Radha Route Start Time Stop Time Status Last Admin Dose Admin Sodium Chloride 500 ml @ 999 mls/hr Q31M STAT IV 06/21/17 13:33 06/21/17 14:06 DC 06/21/17 13:41 999 MLS/HR ECG Indication: other Rate (beats per minute): 73 Rhythm: normal sinus ED Course Patient was seen and examined Vital signs including blood pressure were reviewed medications list was verified with patient Labs were obtained, and a saline lock was established The patient was put on a monitor. He was given 1 L normal saline bolus Upon reevaluation, the patient was resting comfortably in bed. We discussed the results of his workup. The case was also discussed with my supervising physician The patient was discussed with the [facility] hospitalist group, who agreed to admit the patient for further workup and treatment. Medical Decision Differential diagnosis: Orthostatic hypotension, dehydration, adrenal insufficiency, This patient is a 52-year-old male that presents to emergency department complaining of lightheadedness upon standing for the last few months. On exam, he was slightly dehydrated. His orthostatic vital signs were dramatically positive. The patient was also hyponatremic with a sodium of 129. His TSH is also significantly elevated in the 50s. The patient was hydrated with 1 L of normal saline in the emergency department. I do not feel that it is safe to send him back to [facility]. There is a high likelihood of a syncopal episode given the decrease in blood pressure with standing. The patient will be admitted to the hospital for further workup and treatment. Medication Reconcilliation Current Medication List: was personally reviewed by me Blood Pressure Screening Patient's blood pressure: Low blood pressure Consults Consulting Physician: Roger Delgado Impression Primary Impression: Orthostatic hypotension Departure Information Referrals Deniz ESQUIVEL (PCP) Patient Instructions [facility]
--- NOTE | 2017-06-21 13:53 | DIAGNOSTIC IMAGING REPORT ---
CHEST ONE VIEW PORTABLE CLINICAL HISTORY: / Hypertension. Dyspnea. COMPARISON STUDY: 12/09/2016 FINDINGS: Emphysematous change. Nodular density previously described in the right upper lung appear to represent overlap artifact with the anterior right first rib. No focal infiltrate. Minimal apical pleural reactive change considered chronic. IMPRESSION: Chronic and emphysematous change. No acute process. The above report was generated using voice recognition software. It may contain grammatical, syntax or spelling errors. Electronically signed by: Miguel Connolly M.D. 06/21/2017 1:51 PM Dictated Date/Time: 06/21/2017 1:51 PM
[2017-06-21 13:58] LABS: ALB/GLOB RATIO 0.6 (0.9-2); CKMB/CK RATIO 2.3 (0-3.0); THYROID STIMULATING HORMONE 52.8 uIu/ml (0.300-4.500)
[2017-06-21] MEDS ORDERED: FLUO10CA48 PO (15:03)
[2017-06-21] MEDS ORDERED: DEXT4CHW60 PO (15:03)
[2017-06-21] MEDS ORDERED: IV FLUIDS COMPLETED PRN (16:30)
[2017-06-21 16:38] VITALS: BP 83/55; PULSE 79; TEMP 36.7; BMI 22.2
[2017-06-21] MEDS ORDERED: ACETAMINOPHEN 325 MG TAB PO PRN (16:45)
[2017-06-21] MEDS: SODIUM CHLORIDE 0.9% 1000ML 1,000 ML IV SCH (16:51)
[2017-06-21] MEDS ORDERED: DEXTROSE 50% 50 ML SYR IV PRN (19:15)
[2017-06-21] MEDS ORDERED: PHARMACY GLYCEMIC MGMT CONSULT PRN (19:15)
[2017-06-21] MEDS ORDERED: DOCUSATE SODIUM 100 MG CAP PO PRN (19:15)
[2017-06-21] MEDS ORDERED: GLUCOSE 10 TABS/TUBE PO PRN (19:15)
[2017-06-21] MEDS ORDERED: GLUCOSE 40% GEL 15 GM TUBE PO PRN (19:15)
[2017-06-21] MEDS ORDERED: GLUCAGON FOR INJ 1 MG VIAL SQ PRN (19:15)
[2017-06-21 19:50] VITALS: BP 108/62; PULSE 88; TEMP 36.9; O2SAT 99
[2017-06-21] MEDS: INSULIN ASPART 100 UNITS/ML 3 ML PEN SC SCH (20:07)
[2017-06-21] MEDS: INSULIN GLARGINE SOLOSTAR 100 UNITS/ML 3 ML PEN SC SCH (20:50)
[2017-06-21] MEDS: GABAPENTIN 800 MG TAB PO SCH (20:51)
--- NOTE | 2017-06-21 21:39 | History and Physical ---
History & Physical Date & Time of Service: Jun 21, 2017 at 21:32 Chief Complaint: Hypotension Primary Care Physician: Deniz ESQUIVEL History of Present Illness Source: patient, hospital records 52 male with history of DM 1, HTN, Hypothyroidism, other problems noted below presenting with dizziness. Patient reports dizziness/lightheadedness for the past few weeks, worsening the past few days. Denies diarrhea, vomiting, poor intake. Thus was brought to the ER. Found to be (+) orthostasis, given IV bolus. TSH high, T4 low. On exam, patient seen resting in bed, comfortable. States he already feels improved. Denies chest pain, dyspnea, palpitations. Denies confusion, constipation, but does feel cold easily. Denies other symptoms. Past Medical/Surgical History Medical Problems: (1) Anemia Status: Resolved (2) Depression Status: Chronic (3) Diabetes mellitus type I Status: Chronic (4) Dyslipidemia Status: Chronic (5) Eczema Status: Chronic (6) Hypothyroidism Status: Chronic (7) Neuropathy Status: Chronic (8) Pneumonia Status: Resolved Family History Diabetes mellitus Heart disease Social History Smoking Status: Current Every Day Smoker Drug Use: none Marital Status: single Housing status: other Occupational Status: unemployed Allergies Coded Allergies: NO KNOWN DRUG ALLERGIES (Verified Allergy, Unknown, NONE, 06/21/17) Home Medications Scheduled Aspirin (Aspirin Ec), 81 MG PO DAILY Atorvastatin (Lipitor), 80 MG PO DAILY Dextrose (Diabetic Use) (Glucose), 2 TAB PO QID Fluoxetine (Prozac), 3 CAP PO DAILY Gabapentin (Neurontin), 800 MG PO TID Insulin Glargine (Lantus), 26 UNITS SC QPM Insulin Human Regular (Humulin R), SQ TID Levothyroxine Sodium (Levothyroxine Sodium), 300 MCG PO DAILY Lisinopril (Lisinopril), 2.5 MG PO DAILY Metformin Hcl (Glucophage), 1,000 MG PO BID Scheduled PRN Docusate Sodium (Colace), 100 MG PO BID PRN for Constipation Review of Systems Constitutional- no fever; no weight loss Eyes- no acute visual changes ENT- no sinus drainage; no pharyngitis Pulmonary- no cough, no wheezing, no shortness of breath Cardiac- no chest pain, no palpitations, no orthopnea, no dependent edema GI- no nausea, no vomiting, no diarrhea, no melena, no hematochezia - no dysuria, no hematuria Musculoskeletal- no arthralgias, no myalgias Derm- no rashes, no new skin lesions, no changing skin lesions Hematologic- no unusual bruising, no unusual bleeding Lymphatics- no adenopathy Endocrine- no polyuria or polydipsia; (+) cold intolerance Neuro- no headaches, no focal neurologic symptoms Psych- no anxiety, no depression Physical Exam Vital Signs Date Time Temp Pulse Resp B/P (MAP) Pulse Ox O2 Delivery O2 Flow Rate FiO2 06/21/17 20:00 Room Air 06/21/17 19:50 36.9 88 18 108/62 (77) 99 06/21/17 16:38 36.7 79 18 83/55 Room Air 06/21/17 15:13 75 20 108/68 97 Room Air 06/21/17 14:15 76 18 112/69 98 Room Air 80 95/56 82 73/47 06/21/17 12:56 36.8 73 18 121/75 98 Room Air 06/21/17 12:51 76 General Appearance: WD/WN, no apparent distress Head: normocephalic, atraumatic Eyes: normal inspection, PERRL, EOMI, sclerae normal ENT: normal ENT inspection, hearing grossly normal, pharynx normal Neck: supple, no adenopathy, thyroid normal, no JVD, trachea midline Respiratory/Chest: chest non-tender, lungs clear, normal breath sounds, no respiratory distress, no accessory muscle use Cardiovascular: regular rate, rhythm, no edema, no JVD, no murmur, normal peripheral pulses Abdomen/GI: normal bowel sounds, non tender, soft, no organomegaly Back: normal inspection, no CVA tenderness Extremities/Musculoskelatal: normal inspection, no calf tenderness, no pedal edema, normal range of motion, non-tender Neurologic/Psych: cellular plastics cutter II-XII nml as tested, no motor/sensory deficits, alert, normal mood/affect, normal reflexes, oriented x 3 Skin: normal color, warm/dry, no rash Lymphatic: no adenopathy Diagnostics Laboratory Results Results Past 24 Hours Test 06/21/17 13:15 06/21/17 13:32 06/21/17 16:43 06/21/17 17:03 Range/Units White Blood Count 10.88 4.8-10.8 K/uL Red Blood Count 3.40 4.7-6.1 M/uL Hemoglobin 10.0 14.0-18.0 g/dL Hematocrit 29.2 42-52 % Mean Corpuscular Volume 85.9 80-100 fL Mean Corpuscular Hemoglobin 29.4 25-34 pg Mean Corpuscular Hemoglobin Concent 34.2 32-36 g/dl Platelet Count 346 130-400 K/uL Mean Platelet Volume 8.3 7.4-10.4 fL Neutrophils (%) (Auto) 77.8 % Lymphocytes (%) (Auto) 13.5 % Monocytes (%) (Auto) 7.5 % Eosinophils (%) (Auto) 0.3 % Basophils (%) (Auto) 0.6 % Neutrophils # (Auto) 8.47 1.4-6.5 K/uL Lymphocytes # (Auto) 1.47 1.2-3.4 K/uL Monocytes # (Auto) 0.82 0.11-0.59 K/uL Eosinophils # (Auto) 0.03 0-0.5 K/uL Basophils # (Auto) 0.06 0-0.2 K/uL RDW Standard Deviation 47.3 36.4-46.3 fL RDW Coefficient of Variation 15.0 11.5-14.5 % Immature Granulocyte % (Auto) 0.3 % Immature Granulocyte # (Auto) 0.03 0.00-0.02 K/uL Sodium Level 129 136-145 mmol/L Potassium Level 4.4 3.5-5.1 mmol/L Chloride Level 97 98-107 mmol/L Carbon Dioxide Level 26 21-32 mmol/L Anion Gap 6.0 3-11 mmol/L Blood Urea Nitrogen 16 7-18 mg/dl Creatinine 1.29 0.60-1.40 mg/dl Est Creatinine Clear Calc Drug Dose 72.1 ml/min Estimated GFR () 72.9 Estimated GFR (Non- 62.9 BUN/Creatinine Ratio 12.5 10-20 Random Glucose 94 70-99 mg/dl Calcium Level 8.4 8.5-10.1 mg/dl Total Bilirubin 0.2 0.2-1 mg/dl Aspartate Amino Transf (AST/SGOT) 21 15-37 U/L Alanine Aminotransferase (ALT/SGPT) 17 12-78 U/L Alkaline Phosphatase 99 45-117 U/L Total Creatine Kinase 231 39-308 U/L Creatine Kinase MB 5.2 0.5-3.6 ng/ml Creatine Kinase MB Ratio 2.3 0-3.0 Total Protein 6.6 6.4-8.2 gm/dl Albumin 2.5 3.4-5.0 gm/dl Globulin 4.1 2.5-4.0 gm/dl Albumin/Globulin Ratio 0.6 0.9-2 Thyroid Stimulating Hormone (TSH) 52.800 0.300-4.500 uIu/ml Free Thyroxine 0.46 0.80-1.60 ng/dl Bedside Troponin I 0.030 0-0.045 ng/ml Bedside Glucose 58 56 70-99 mg/dl Test 06/21/17 17:39 06/21/17 20:05 Range/Units Bedside Glucose 105 140 70-99 mg/dl Microbiology Results 06/21/17 MRSA DNA Surveillance Screen - Final, Complete Specimen Negative for MRSA by DNA Probe Diagnostic Radiology CHEST ONE VIEW PORTABLE CLINICAL HISTORY: / Hypertension. Dyspnea. COMPARISON STUDY: 12/09/2016 FINDINGS: Emphysematous change. Nodular density previously described in the right upper lung appear to represent overlap artifact with the anterior right first rib. No focal infiltrate. Minimal apical pleural reactive change considered chronic. IMPRESSION: Chronic and emphysematous change. No acute process. EKG HR normal, Sinus Rhythm, No signs of ischemia Impression Assessment and Plan 52 male with history of DM 1, HTN, Hypothyroidism, other problems noted below presenting with dizziness. DIZZINESS, SECONDARY TO ORTHOSTASIS - hold Lisinopril - IV fluids monitor HYPONATREMIA - appears hypovolemic IV NSS monitor Na HYPOTHYROIDISM - increase L thyroxine to 350mcg daily DM 1 - pharmacy consulted HTN hold Lisinopril DVT proph SCDs Disposition pending anticipate d/c back to [facility] when medically stable Advanced Directives Existing Living Will: Yes Existing Power of Textile Technologist: No VTE Prophylaxis VTE Risk Assessment Done? Y/N: Yes Risk Level: Moderate
[2017-06-21 22:58] LABS: URINE APPEARANCE CLEAR (CLEAR); URINE BILIRUBIN NEG (NEG); URINE COLOR YELLOW; URINE EPITHELIAL CELL AUTO >30 /lpf (0-5); URINE NITRITE NEG (NEG); URINE PH 7.5 (4.5-7.5); URINE SPECIFIC GRAVITY 1.012 (1.000-1.030); UROBILINOGEN NEG (NEG); ZZUR CULT IF INDIC CLEAN CATCH NO
[2017-06-21 23:06] LABS: MANUAL MICROSCOPIC REQUIRED? NO; REVIEW REQ? YES
[2017-06-21 23:07] LABS: SULFASALICYLIC ACID POS (NEG)
[2017-06-22] VITALS (9 sets, daily range): BP systolic 93–145; BP diastolic 51–76; PULSE 67–83; TEMP 36.5–37.1; O2SAT 95–100; BMI 22.2
[2017-06-22] MEDS: SODIUM CHLORIDE 0.9% 1000ML 1,000 ML IV SCH ×3 (00:29→17:24)
[2017-06-22] MEDS: LEVOTHYROXINE 175 MCG TAB PO SCH (06:04)
[2017-06-22 06:44] LABS: BASO % 1.5 %; BASO ABS # 0.13 K/uL (0-0.2); COMPLETE YES; EOS % 2.9 %; HEMATOCRIT 28.4 % (42-52); IG% 0.4 %; LYMPH % 34.8 %; LYMPH ABS # 2.96 K/uL (1.2-3.4); MEAN CELL VOLUME 87.4 fL (80-100); MEAN CORPUSCULAR HEMOGLOBIN 29.2 pg (25-34); MEAN CORPUSCULAR HGB CONC 33.5 g/dl (32-36); MEAN PLATELET VOLUME 8.5 fL (7.4-10.4); MONO % 7.1 %; NEUT % 53.3 %; PLATELET COUNT 377 K/uL (130-400); RED BLOOD COUNT 3.25 M/uL (4.7-6.1)
[2017-06-22 07:00] LABS: ESTIMATED AVERAGE GLUCOSE 289 mg/dl; HA1C FLAG Normal (Normal)
[2017-06-22 07:27] LABS: BUN/CREATININE RATIO 13.2 (10-20); CALCIUM 8.3 mg/dl (8.5-10.1); CREATININE 1.03 mg/dl (0.60-1.40); POTASSIUM 4.3 mmol/L (3.5-5.1)
[2017-06-22] MEDS: ATORVASTATIN 40 MG TAB PO SCH (07:44)
[2017-06-22] MEDS: GABAPENTIN 800 MG TAB PO SCH ×3 (07:44→20:29)
[2017-06-22] MEDS: ASPIRIN 81 MG ECTAB PO SCH (07:44)
[2017-06-22] MEDS: FLUOXETINE HCL 10 MG CAP PO SCH (07:44)
[2017-06-22] MEDS: INSULIN ASPART 100 UNITS/ML 3 ML PEN SC SCH ×5 (07:49→23:57)
--- NOTE | 2017-06-22 10:01 | Pharmacy Progress Note ---
Glycemic Control Intl Consult Date of Service Jun 22, 2017. Scope Glycemic Pharmacist consulted by Dr Carey on 06/21/17 for glycemic control and to write orders per [facility] inpatient glycemic control protocol Objective Weight (Kilograms): 74.100 Accuchecks BSG (last 24hrs): Test 06/21/17 13:15 06/21/17 16:43 06/21/17 17:03 06/21/17 17:39 Random Glucose 94 mg/dl (70-99) Bedside Glucose 58 mg/dl (70-99) 56 mg/dl (70-99) 105 mg/dl (70-99) Test 06/21/17 20:05 06/22/17 06:02 Bedside Glucose 140 mg/dl (70-99) Random Glucose 93 mg/dl (70-99) Laboratory Data (last 24hrs) Test 06/21/17 13:15 06/21/17 23:04 06/22/17 06:02 Anion Gap 6.0 mmol/L 7.0 mmol/L BUN/Creatinine Ratio 12.5 13.2 Blood Urea Nitrogen 16 mg/dl 14 mg/dl Creatinine 1.29 mg/dl 1.03 mg/dl Potassium Level 4.4 mmol/L 4.3 mmol/L Sodium Level 129 mmol/L 129 mmol/L 133 mmol/L White Blood Count 10.88 K/uL 8.50 K/uL Red Blood Count 3.40 M/uL 3.25 M/uL Hemoglobin 10.0 g/dL 9.5 g/dL Hematocrit 29.2 % 28.4 % Mean Corpuscular Volume 85.9 fL 87.4 fL Mean Corpuscular Hemoglobin 29.4 pg 29.2 pg Mean Corpuscular Hemoglobin Concent 34.2 g/dl 33.5 g/dl Platelet Count 346 K/uL 377 K/uL Mean Platelet Volume 8.3 fL 8.5 fL Neutrophils (%) (Auto) 77.8 % 53.3 % Lymphocytes (%) (Auto) 13.5 % 34.8 % Monocytes (%) (Auto) 7.5 % 7.1 % Eosinophils (%) (Auto) 0.3 % 2.9 % Basophils (%) (Auto) 0.6 % 1.5 % Neutrophils # (Auto) 8.47 K/uL 4.53 K/uL Lymphocytes # (Auto) 1.47 K/uL 2.96 K/uL Monocytes # (Auto) 0.82 K/uL 0.60 K/uL Eosinophils # (Auto) 0.03 K/uL 0.25 K/uL Basophils # (Auto) 0.06 K/uL 0.13 K/uL Hemoglobin A1c 11.7 % HbA1c Test 06/22/17 06:02 Hemoglobin A1c 11.7 % (4.5-5.6) H Recent Pertinent Medications Outpatient Anti-diabetic Regimen: * Lantus 26 units HS * Humulin R sliding scale, 2-4 units * A1c = 11.7 % 06/22/17 The patient is currently receiving: * Basal insulin: Lantus 20 units every 24 hours * Correctional Insulin: Novolog Correction per scale ACHS Goal Range: Low 110 mg/dL - High 150 mg/dL Correction Factor: 60 mg/dL/unit * Prandial insulin: Per carb ratio of 1 unit per 20 grams CHO consumed Risk Factors for Insulin Resistance: * Diet: Type 2 DM Assessment & Plan ASSESSMENT: * 52 year old male, admitted with hypotension. * Uncontrolled type 1 diabetic, A1c 11.7%. * BSGs at goal as inpatient on basal bolus regimen. No changes needed at this time. PLAN FOR INPATIENT GLYCEMIC CONTROL: * Holding outpatient oral diabetes medications * Basal insulin with LANTUS SQ BID * BSG < 120mg/dl - 13 units * BSG 120-159mg/dl - 20 units * BSG 160mg/dl or greater - 26 units * Correctional Insulin with NOVOLOG per scale ACHS or Q6hrs while NPO * Goal Range: Low 110 mg/dL - High 150 mg/dL * Correction Factor: 60 mg/dL/unit * Nutritional / Prandial insulin per carb ratio of 1 unit per 20 grams CHO consumed OUTPATIENT RECOMMENDATIONS: * Uncontrolled type 1 DM, A1c 11.7% * Recommend titrating Lantus dose up and tightening sliding scale parameters * Call pharmacy upon discharge if more detailed recommendations needed * Please note that the plan above was derived based on current level of insulin resistance and hospital stress. These recommendations are appropriate for inpatient admission only. Plan of care upon discharge will need to be reassessed to avoid potential outpatient hypo/hyperglycemia. Thank you.
--- NOTE | 2017-06-22 19:04 | Progress Note ---
Medicine Progress Note Date & Time of Visit: Jun 22, 2017 at 18:59. Subjective patient seen resting in bed, comfortable states he feels improved today less dizzy when standing denies chest pain, dyspnea, palpitations, confusion, abdominal pain right buttock lesion feels about the same, denies fever/chills Objective Last 8 Hrs Date Time Temp Pulse Resp B/P (MAP) Pulse Ox O2 Delivery O2 Flow Rate FiO2 06/22/17 16:00 Room Air 06/22/17 15:27 36.7 67 16 112/66 (81) 95 Room Air 78 103/67 (79) 83 95/61 (72) 06/22/17 12:23 36.5 78 18 145/76 (99) 98 06/22/17 12:00 98 Room Air Physical Exam: General- oriented x 3, not in distress, speaks in sentences with no effort Eyes-EOMI, anicteric Neck- supple, no JVD, no adenopathy Lungs- clear breath sounds bilaterally, no rales/wheezes Heart- regular rhythm; no murmur, normal rate Abdomen- normal bowel sounds, soft, nontender Buttock- right: (+) soft indurated area, fluctuant mass, mild tenderness, no erythema/warmth Extremities- no pretibial edema, no calf tenderness Neuro- alert, oriented x 3; no gross focal deficits Skin- warm & dry Laboratory Results: Last 24 Hours Test 06/21/17 20:05 06/21/17 22:40 06/21/17 23:04 06/22/17 06:02 Bedside Glucose 140 mg/dl Urine Color YELLOW Urine Appearance CLEAR Urine pH 7.5 Urine Specific [place] 1.012 Urine Protein 2+ Urine Glucose (UA) NEG Urine Ketones NEG Urine Occult Blood NEG Urine Nitrite NEG Urine Bilirubin NEG Urine Urobilinogen NEG Urine Leukocyte Esterase NEG Urine WBC (Auto) 5-10 /hpf Urine RBC (Auto) 5-10 /hpf Urine Hyaline Casts (Auto) 5-10 /lpf Urine Epithelial Cells (Auto) >30 /lpf Urine Bacteria (Auto) NEG Urine Renal Epithelial Cells 5-10 /lpf Sodium Level 129 mmol/L 133 mmol/L White Blood Count 8.50 K/uL Red Blood Count 3.25 M/uL Hemoglobin 9.5 g/dL Hematocrit 28.4 % Mean Corpuscular Volume 87.4 fL Mean Corpuscular Hemoglobin 29.2 pg Mean Corpuscular Hemoglobin Concent 33.5 g/dl Platelet Count 377 K/uL Mean Platelet Volume 8.5 fL Neutrophils (%) (Auto) 53.3 % Lymphocytes (%) (Auto) 34.8 % Monocytes (%) (Auto) 7.1 % Eosinophils (%) (Auto) 2.9 % Basophils (%) (Auto) 1.5 % Neutrophils # (Auto) 4.53 K/uL Lymphocytes # (Auto) 2.96 K/uL Monocytes # (Auto) 0.60 K/uL Eosinophils # (Auto) 0.25 K/uL Basophils # (Auto) 0.13 K/uL RDW Standard Deviation 48.8 fL RDW Coefficient of Variation 15.1 % Immature Granulocyte % (Auto) 0.4 % Immature Granulocyte # (Auto) 0.03 K/uL Potassium Level 4.3 mmol/L Chloride Level 99 mmol/L Carbon Dioxide Level 26 mmol/L Anion Gap 7.0 mmol/L Blood Urea Nitrogen 14 mg/dl Creatinine 1.03 mg/dl Est Creatinine Clear Calc Drug Dose 86.9 ml/min Estimated GFR () 95.7 Estimated GFR (Non- 82.5 BUN/Creatinine Ratio 13.2 Random Glucose 93 mg/dl Estimated Average Glucose 289 mg/dl Hemoglobin A1c 11.7 % Calcium Level 8.3 mg/dl Test 06/22/17 07:01 06/22/17 11:20 06/22/17 11:31 06/22/17 18:57 Bedside Glucose 114 mg/dl 225 mg/dl Sodium Level 128 mmol/L Assessment & Plan 52 male with history of DM 1, HTN, Hypothyroidism, other problems noted below presenting with dizziness. DIZZINESS, SECONDARY TO ORTHOSTASIS - orthostasis improving - continue IV fluids HOLD Lisinopril monitor R/O RIGHT BUTTOCK ABSCESS - CT of the Pelvis ordered - no signs of active infection hold off on antibiotics until CT scan is back HYPONATREMIA - appears hypovolemic IV NSS - Na improved to 133 monitor HYPOTHYROIDISM - increased L thyroxine to 350mcg daily repeat TFT in 4 weeks DM 1 - pharmacy consulted HTN (+) orthostasis hold Lisinopril DVT proph SCDs lovenox if staying longer Disposition pending anticipate d/c back to [facility] when medically stable Current Inpatient Medications: Current Inpatient Medications Medications (Trade) Dose Ordered Sig/Radha Route Start Time Stop Time Status Last Admin Dose Admin Miscellaneous (Iv Fluids Completed) 1 ea PRN PRN N/A 06/21/17 16:30 06/21/18 16:29 Sodium Chloride 1,000 ml @ 125 mls/hr Q8H IV 06/21/17 17:00 07/21/17 16:59 06/22/17 17:24 125 MLS/HR Acetaminophen (Tylenol Tab) 650 mg Q4H PRN PO 06/21/17 16:45 07/21/17 16:44 Aspirin (Ecotrin Tab) 81 mg DAILY PO 06/22/17 09:00 07/22/17 08:59 06/22/17 07:44 81 MG Atorvastatin Calcium (Lipitor Tab) 80 mg DAILY PO 06/22/17 09:00 07/22/17 08:59 06/22/17 07:44 80 MG Docusate Sodium (coLACE CAP) 100 mg BID PRN PO 06/21/17 19:15 07/21/17 19:14 Fluoxetine HCl (Prozac Cap) 30 mg DAILY PO 06/22/17 09:00 07/22/17 08:59 06/22/17 07:44 30 MG Gabapentin (Neurontin Tab) 800 mg TID PO 06/21/17 21:00 07/21/17 20:59 06/22/17 13:40 800 MG Levothyroxine Sodium (Synthroid Tab) 350 mcg DAILYBB PO 06/22/17 06:00 07/22/17 05:59 06/22/17 06:04 350 MCG Insulin Aspart (novoLOG ASPART) SLIDING SCALE If C... ACHS SC 06/21/17 21:00 07/21/17 20:59 06/22/17 17:21 7 UNITS Glucose (Glucose 40% Gel) 15-30 GRAMS 15 GRAMS... UD PRN PO 06/21/17 19:15 07/21/17 19:14 Glucose (Glucose Chew Tab) 4-8 Tablets 4 Tabl... UD PRN PO 06/21/17 19:15 07/21/17 19:14 Dextrose (Dextrose 50% 50ML Syringe) 25-50ML OF 50% DW IV FOR... UD PRN IV 06/21/17 19:15 07/21/17 19:14 Glucagon (Glucagon Inj) 1 mg UD PRN SQ 06/21/17 19:15 07/21/17 19:14 Miscellaneous Information (Consult Glycemic Management Pharmacy) 1 ea UD PRN N/A 06/21/17 19:15 07/21/17 19:14 Insulin Glargine (Lantus Solostar Pen) SEE PROTOCOL PM LA 06/21/17 21:00 07/21/17 20:59 06/21/17 20:50 20 UNITS Insulin Aspart (novoLOG ASPART) SLIDING SCALE If C... 0000,0400 LA 06/23/17 00:00 06/23/17 04:01
[2017-06-22] MEDS: INSULIN GLARGINE SOLOSTAR 100 UNITS/ML 3 ML PEN SC SCH (20:30)
[2017-06-22] MEDS ORDERED: OPTIRAY 320 IV PRN (23:30)
[2017-06-23] VITALS (7 sets, daily range): BP systolic 76–155; BP diastolic 39–100; PULSE 61–85; TEMP 36.4–37.1; O2SAT 94–97; BMI 22.4
[2017-06-23] MEDS: INSULIN ASPART 100 UNITS/ML 3 ML PEN SC SCH ×5 (04:00→20:28)
[2017-06-23] MEDS: SODIUM CHLORIDE 0.9% 1000ML 1,000 ML IV SCH ×2 (05:26→11:16)
[2017-06-23] MEDS: LEVOTHYROXINE 175 MCG TAB PO SCH (06:28)
[2017-06-23 06:31] LABS: BASO % 1.8 %; BASO ABS # 0.14 K/uL (0-0.2); IG% 0.3 %; LYMPH % 37.5 %; LYMPH ABS # 2.92 K/uL (1.2-3.4); MEAN CELL VOLUME 88.2 fL (80-100); MEAN CORPUSCULAR HEMOGLOBIN 29.1 pg (25-34); MEAN PLATELET VOLUME 8.5 fL (7.4-10.4); MONO % 7.3 %; NEUT % 50.1 %; PLATELET COUNT 375 K/uL (130-400); RED BLOOD COUNT 3.06 M/uL (4.7-6.1); WHITE BLOOD COUNT 7.78 K/uL (4.8-10.8)
--- NOTE | 2017-06-23 06:51 | DIAGNOSTIC IMAGING REPORT ---
PELVIS W/IV CONT ONLY (CT) CLINICAL HISTORY: 52 years-old Male presenting with right fluctuant mass, concern for abscess. TECHNIQUE: Multidetector CT of the pelvis was performed after the administration of intravenous contrast. IV contrast: Optiray 320. A dose lowering technique was used consistent with the principles of ALARA (as low as reasonably achievable). COMPARISON: None. CT DOSE (mGy.cm): The estimated cumulative dose is 519.57 mGycm. FINDINGS: Resident Care Assistant topogram: Unremarkable. Bladder: Mild circumferential bladder wall thickening. Pelvic organs: Prostate and seminal vesicles normal. Bowel: Rectal wall thickening and infiltration of the mesorectal fascia. Wall thickening extends to the level of the anorectal junction distally. The sigmoid colon does not appear to be involved. Mild stool burden. No bowel obstruction. Peritoneal cavity: Trace free fluid in the pelvis. No free intraperitoneal gas. Lymph nodes: Scattered subcentimeter bilateral iliac and inguinal lymph nodes, likely reactive. Vasculature: Atherosclerosis of the bilateral iliac arteries. Abdominal wall: Extensive inflammatory change with multiple small rim-enhancing fluid collections along the right medial gluteal cleft. The largest collection measures 2.3 x 1.2 x 1.6 centimeters. Multiple smaller collections are noted. Reactive inflammatory changes of the adjacent medial aspect of the right gluteus teddy. Inflammatory change does not appear to extend to or emanating from the rectum or anus allowing for limitations of CT. A fistulous connection to the overlying cutis is difficult to exclude. Minimal inflammatory changes noted along the left medial gluteal cleft. Musculoskeletal: Degenerative change of the lower lumbar spine. IMPRESSION: 1. Multiple small abscesses along the right medial gluteal cleft. Though the overall region of involvement is larger, the largest single collection measures 2.3 x 1.2 x 1.6 cm. Inflammatory changes not appear to emanate from the anus or rectum allowing for limitations of CT. Reactive changes of the adjacent musculature. Correlate clinically to exclude a fistulous connection to the overlying cutis of the right medial gluteal cleft. 2. Mild rectal wall thickening with surrounding inflammatory change suggests proctitis. Electronically signed by: Castro Ocasio M.D. 06/23/2017 6:50 AM Dictated Date/Time: 06/23/2017 6:41 AM
[2017-06-23 07:00] LABS: ACANTHOCYTES 1+; COMPLETE YES
[2017-06-23 07:02] LABS: BUN/CREATININE RATIO 13.6 (10-20); CALCIUM 7.9 mg/dl (8.5-10.1); CREATININE 1.17 mg/dl (0.60-1.40); POTASSIUM 4.8 mmol/L (3.5-5.1)
[2017-06-23] MEDS ORDERED: VANCOMYCIN CONSULT ACTIVE PRN (08:11)
[2017-06-23] MEDS: GABAPENTIN 800 MG TAB PO SCH ×3 (08:14→20:25)
[2017-06-23] MEDS: ASPIRIN 81 MG ECTAB PO SCH (08:14)
[2017-06-23] MEDS: ATORVASTATIN 40 MG TAB PO SCH (08:14)
[2017-06-23] MEDS ORDERED: PIPERACILL/TAZOBAC CONSULT ACTIVE PRN (08:15)
[2017-06-23] MEDS: FLUOXETINE HCL 10 MG CAP PO SCH (08:15)
[2017-06-23] MEDS ORDERED: VANCOMYCIN INJ 2,000 MG in SODIUM CHLORIDE 0.9% 500ML 500 ML IV ONE (08:30)
[2017-06-23] MEDS ORDERED: PIPERACILL/TAZOBAC IV 3.375 GM in DEXTROSE 5% 100ML IV ONE (08:30)
--- NOTE | 2017-06-23 09:41 | Surgery Consultation ---
Consultation Date of Consultation: Jun 23, 2017. Attending Physician: Greg Carey MD Reason for Consultation: Right Buttock abscess History of Present Illness Gilbert is a pleasant 52 year-old male who presented to emergency department from [facility] on Monday with compliant of dizziness. Was found to have orthostatic hypotension and was admitted for observation and given IV fluids. He has had right buttock pain for the past month and was treated with a 10 day course of Bactrim at [facility]. States the pain and swelling had improved but now starting to increase again. Denies of previous episode of perirectal/buttock abscess. Last had a colonoscopy about 5 years ago or so which was normal per patient. Denies of any history of inflammatory bowel disease like Crohn's disease or ulcerative colitis. Denies history of recurrent skin infections. Denies fever, chills, nausea, vomiting, abdominal pain, severe rectal pain, changes in bowel habits, diarrhea or constipation or blood in stools. Past Medical/Surgical History Medical History: 1. Hypothyroidism 2. DM type 1 3. Depression 4. Anemia 5. Dyslipidemia 6. Neuropathy 7. Pneumonia 8. Hypertension Family History Diabetes mellitus Heart disease No pertinent family medical history Social History Smoking Status: Current Every Day Smoker Drug Use: none Marital Status: single Housing Status: other Occupation Status: unemployed Allergies Coded Allergies: NO KNOWN DRUG ALLERGIES (Verified Allergy, Unknown, NONE, 06/21/17) Home Medications Scheduled Aspirin (Aspirin Ec), 81 MG PO DAILY Atorvastatin (Lipitor), 80 MG PO DAILY Dextrose (Diabetic Use) (Glucose), 2 TAB PO QID Fluoxetine (Prozac), 3 CAP PO DAILY Gabapentin (Neurontin), 800 MG PO TID Insulin Glargine (Lantus), 26 UNITS SC QPM Insulin Human Regular (Humulin R), SQ TID Levothyroxine Sodium (Levothyroxine Sodium), 300 MCG PO DAILY Lisinopril (Lisinopril), 2.5 MG PO DAILY Metformin Hcl (Glucophage), 1,000 MG PO BID Scheduled PRN Docusate Sodium (Colace), 100 MG PO BID PRN for Constipation Current Inpatient Medications Current Inpatient Medications Medications (Trade) Dose Ordered Sig/Radha Route Start Time Stop Time Status Last Admin Dose Admin Miscellaneous (Iv Fluids Completed) 1 ea PRN PRN N/A 06/21/17 16:30 06/21/18 16:29 Sodium Chloride 1,000 ml @ 125 mls/hr Q8H IV 06/21/17 17:00 07/21/17 16:59 06/23/17 05:26 125 MLS/HR Acetaminophen (Tylenol Tab) 650 mg Q4H PRN PO 06/21/17 16:45 07/21/17 16:44 Aspirin (Ecotrin Tab) 81 mg DAILY PO 06/22/17 09:00 07/22/17 08:59 06/23/17 08:14 81 MG Atorvastatin Calcium (Lipitor Tab) 80 mg DAILY PO 06/22/17 09:00 07/22/17 08:59 06/23/17 08:14 80 MG Docusate Sodium (coLACE CAP) 100 mg BID PRN PO 06/21/17 19:15 07/21/17 19:14 Fluoxetine HCl (Prozac Cap) 30 mg DAILY PO 06/22/17 09:00 07/22/17 08:59 06/23/17 08:15 30 MG Gabapentin (Neurontin Tab) 800 mg TID PO 06/21/17 21:00 07/21/17 20:59 06/23/17 08:14 800 MG Levothyroxine Sodium (Synthroid Tab) 350 mcg DAILYBB PO 06/22/17 06:00 07/22/17 05:59 06/23/17 06:28 350 MCG Insulin Aspart (novoLOG ASPART) SLIDING SCALE If C... ACHS SC 06/21/17 21:00 07/21/17 20:59 06/23/17 08:13 3 UNITS Glucose (Glucose 40% Gel) 15-30 GRAMS 15 GRAMS... UD PRN PO 06/21/17 19:15 07/21/17 19:14 Glucose (Glucose Chew Tab) 4-8 Tablets 4 Tabl... UD PRN PO 06/21/17 19:15 07/21/17 19:14 Dextrose (Dextrose 50% 50ML Syringe) 25-50ML OF 50% DW IV FOR... UD PRN IV 06/21/17 19:15 07/21/17 19:14 Glucagon (Glucagon Inj) 1 mg UD PRN SQ 06/21/17 19:15 07/21/17 19:14 Miscellaneous Information (Consult Glycemic Management Pharmacy) 1 ea UD PRN N/A 06/21/17 19:15 07/21/17 19:14 Insulin Glargine (Lantus Solostar Pen) SEE PROTOCOL PM SC 06/21/17 21:00 07/21/17 20:59 06/22/17 20:30 26 UNITS Ioversol (Optiray 320) 111 ml UD PRN IV 06/22/17 23:30 06/26/17 23:29 Vancomycin HCl (Consult) 1 ea UD PRN N/A 06/23/17 08:11 07/23/17 08:10 Piperacillin Sod/ Tazobactam Sod (Consult) 1 ea UD PRN N/A 06/23/17 08:15 07/23/17 08:14 Vancomycin HCl 2000 mg/Sodium Chloride 540 ml @ 200 mls/hr TODAY@0830 ONCE IV 06/23/17 08:30 06/23/17 11:11 Piperacillin Sod/ Tazobactam Sod 3.375 gm/Dextrose 115 ml @ 28.75 mls/ hr Q8H IV 06/23/17 14:00 07/03/17 13:59 Review of Systems Constitutional: No fever, No chills, No sweats Cardiovascular: No chest pain Abdomen: No pain, No nausea, No vomiting, No diarrhea, No constipation, No GI bleeding Neurologic: + problem reported (dizziness) Physical Exam Date Time Temp Pulse Resp B/P (MAP) Pulse Ox O2 Delivery O2 Flow Rate FiO2 06/23/17 08:00 Room Air 06/23/17 07:02 36.5 78 20 124/73 (90) 95 Room Air 78 107/66 (80) 82 86/58 (67) 06/23/17 04:00 Room Air 06/23/17 03:25 36.9 75 18 124/68 (86) 97 Room Air 75 103/64 (77) 78 97/61 (73) 06/23/17 00:00 Room Air 06/22/17 23:34 36.9 76 18 120/71 (87) 97 Room Air 06/22/17 20:00 Room Air 06/22/17 19:32 37.1 82 18 93/53 (66) 95 Room Air 06/22/17 16:00 Room Air 06/22/17 15:27 36.7 67 16 112/66 (81) 95 Room Air 78 103/67 (79) 83 95/61 (72) 06/22/17 12:23 36.5 78 18 145/76 (99) 98 06/22/17 12:00 98 Room Air General Appearance: WD/WN, no apparent distress Head: normocephalic, atraumatic Eyes: sclerae normal ENT: hearing grossly normal Respiratory/Chest: no respiratory distress, no accessory muscle use Abdomen/GI: + pertinent finding (Right buttock with induration spanning about 6 cm with small area of fluctance appreciate. Tender to palpation, no active drainage. No cellulitis. Tenderness to the gluteus muscle just lateral to area of induration. REctal exam normal, no blood present) Back: normal inspection Extremities/Musculoskelatal: normal inspection Neurologic/Psych: alert, normal mood/affect, oriented x 3 Skin: normal color, warm/dry, no rash Laboratory Results Last 24 Hours Test 06/22/17 11:20 06/22/17 11:31 06/22/17 16:15 06/22/17 19:18 Sodium Level 128 mmol/L 129 mmol/L Bedside Glucose 225 mg/dl 305 mg/dl Test 06/22/17 20:20 06/22/17 23:45 06/23/17 00:40 06/23/17 04:32 Bedside Glucose 307 mg/dl 165 mg/dl 58 mg/dl Sodium Level 130 mmol/L Test 06/23/17 05:11 06/23/17 05:42 06/23/17 06:39 06/23/17 07:04 Bedside Glucose 76 mg/dl 58 mg/dl 95 mg/dl White Blood Count 7.78 K/uL Red Blood Count 3.06 M/uL Hemoglobin 8.9 g/dL Hematocrit 27.0 % Mean Corpuscular Volume 88.2 fL Mean Corpuscular Hemoglobin 29.1 pg Mean Corpuscular Hemoglobin Concent 33.0 g/dl Platelet Count 375 K/uL Mean Platelet Volume 8.5 fL Neutrophils (%) (Auto) 50.1 % Lymphocytes (%) (Auto) 37.5 % Monocytes (%) (Auto) 7.3 % Eosinophils (%) (Auto) 3.0 % Basophils (%) (Auto) 1.8 % Neutrophils # (Auto) 3.90 K/uL Lymphocytes # (Auto) 2.92 K/uL Monocytes # (Auto) 0.57 K/uL Eosinophils # (Auto) 0.23 K/uL Basophils # (Auto) 0.14 K/uL RDW Standard Deviation 48.5 fL RDW Coefficient of Variation 15.2 % Immature Granulocyte % (Auto) 0.3 % Immature Granulocyte # (Auto) 0.02 K/uL Acanthocytes 1+ Sodium Level 134 mmol/L Potassium Level 4.8 mmol/L Chloride Level 103 mmol/L Carbon Dioxide Level 29 mmol/L Anion Gap 2.0 mmol/L Blood Urea Nitrogen 16 mg/dl Creatinine 1.17 mg/dl Est Creatinine Clear Calc Drug Dose 77.3 ml/min Estimated GFR () 82.0 Estimated GFR (Non- 70.8 BUN/Creatinine Ratio 13.6 Random Glucose 66 mg/dl Calcium Level 7.9 mg/dl PELVIS W/IV CONT ONLY (CT) CLINICAL HISTORY: 52 years-old Male presenting with right fluctuant mass, concern for abscess. TECHNIQUE: Multidetector CT of the pelvis was performed after the administration of intravenous contrast. IV contrast: Optiray 320. A dose lowering technique was used consistent with the principles of ALARA (as low as reasonably achievable). COMPARISON: None. CT DOSE (mGy.cm): The estimated cumulative dose is 519.57 mGycm. FINDINGS: Mortgage Analyst topogram: Unremarkable. Bladder: Mild circumferential bladder wall thickening. Pelvic organs: Prostate and seminal vesicles normal. Bowel: Rectal wall thickening and infiltration of the mesorectal fascia. Wall thickening extends to the level of the anorectal junction distally. The sigmoid colon does not appear to be involved. Mild stool burden. No bowel obstruction. Peritoneal cavity: Trace free fluid in the pelvis. No free intraperitoneal gas. Lymph nodes: Scattered subcentimeter bilateral iliac and inguinal lymph nodes, likely reactive. Vasculature: Atherosclerosis of the bilateral iliac arteries. Abdominal wall: Extensive inflammatory change with multiple small rim-enhancing fluid collections along the right medial gluteal cleft. The largest collection measures 2.3 x 1.2 x 1.6 centimeters. Multiple smaller collections are noted. Reactive inflammatory changes of the adjacent medial aspect of the right gluteus teddy. Inflammatory change does not appear to extend to or emanating from the rectum or anus allowing for limitations of CT. A fistulous connection to the overlying cutis is difficult to exclude. Minimal inflammatory changes noted along the left medial gluteal cleft. Musculoskeletal: Degenerative change of the lower lumbar spine. IMPRESSION: 1. Multiple small abscesses along the right medial gluteal cleft. Though the overall region of involvement is larger, the largest single collection measures 2.3 x 1.2 x 1.6 cm. Inflammatory changes not appear to emanate from the anus or rectum allowing for limitations of CT. Reactive changes of the adjacent musculature. Correlate clinically to exclude a fistulous connection to the overlying cutis of the right medial gluteal cleft. 2. Mild rectal wall thickening with surrounding inflammatory change suggests proctitis. Assessment & Plan 52 year-old male with Right Gluteal Abscesses with largest measuring 2.3 x 1.2 x 1.6 cm. Examination shows induration with small area of fluctuance, no active drainage. Afebrile and no leukocytosis. CT of Pelvis showing multiple small abscesses along right medial gluteal cleft, inflammatory change does not appear to extend to or emanating from the rectum or anus. Plan: Plan for bedside incision and drainage this afternoon Continue current medical management Continue IV antibiotics and pain management Discussed with Dr. Jenkins who agrees with above
--- NOTE | 2017-06-23 09:49 | Pharmacy Progress Note ---
Glycemic Control Progress Note Date of Service Jun 23, 2017. Scope Glycemic Pharmacist consulted for glycemic control to write orders per [facility] inpatient glycemic control protocol. Objective Accuchecks BSG (last 24hrs): Test 06/22/17 11:31 06/22/17 16:15 06/22/17 20:20 06/22/17 23:45 Bedside Glucose 225 mg/dl (70-99) 305 mg/dl (70-99) 307 mg/dl (70-99) 165 mg/dl (70-99) Test 06/23/17 04:32 06/23/17 05:11 06/23/17 05:42 06/23/17 06:39 Bedside Glucose 58 mg/dl (70-99) 76 mg/dl (70-99) 58 mg/dl (70-99) Random Glucose 66 mg/dl (70-99) Test 06/23/17 07:04 Bedside Glucose 95 mg/dl (70-99) HbA1c: Test 06/22/17 06:02 Hemoglobin A1c 11.7 % (4.5-5.6) H Recent Pertinent Medications Outpatient Anti-diabetic Regimen: * Lantus 26 units HS * Humulin R sliding scale, 2-4 units * A1c = 11.7 % 06/22/17 The patient is currently receiving: * Basal insulin: * LANTUS SQ BID * BSG < 120mg/dl - 13 units * BSG 120-159mg/dl - 20 units * BSG 160mg/dl or greater - 26 units * Correctional Insulin: Novolog Correction per scale ACHS Goal Range: Low 110 mg/dL - High 150 mg/dL Correction Factor: 40 mg/dL/unit * Prandial insulin: Per carb ratio of 1 unit per 15 grams CHO consumed Risk Factors for Insulin Resistance: * Infection: IV Vancomycin and Zosyn for abscess * Diet: Type 2 DM Assessment & Plan ASSESSMENT: 06/23 * Yesterday blood sugar soto to 305mg/dl prior to dinner, so CF and CR were tightened, but then patient's BSG fell overnight after correction at 2100. * Pt requires a less aggressive CR and CF at bedtime, will adjust accordingly to prevent hypoglycemia overnight, and continue tighter CR and CF during the day /mealtimes. * Pt started IV Vancomycin and Zosyn for buttocks abscess 06/22 * 52 year old male, admitted with hypotension. * Uncontrolled type 1 diabetic, A1c 11.7%. * BSGs at goal as inpatient on basal bolus regimen. No changes needed at this time. PLAN FOR INPATIENT GLYCEMIC CONTROL: * Holding outpatient oral diabetes medications * Continue Basal insulin with LANTUS SQ BID * BSG < 120mg/dl - 13 units * BSG 120-159mg/dl - 20 units * BSG 160mg/dl or greater - 26 units * Correctional Insulin with NOVOLOG per scale AC * Goal Range: Low 120 mg/dL - High 150 mg/dL * Correction Factor: 45 mg/dL/unit * Nutritional / Prandial insulin per carb ratio of 1 unit per 15 grams CHO consumed * Correctional Insulin with NOVOLOG per scale HS * Correction Factor: 60 mg/dL/unit * Nutritional / Prandial insulin per carb ratio of 1 unit per 20 grams CHO consumed OUTPATIENT RECOMMENDATIONS: * Uncontrolled type 1 DM, A1c 11.7% * Recommend meal time insulin, instead of just a sliding scale with analog insulin * Please note that the plan above was derived based on current level of insulin resistance and hospital stress. These recommendations are appropriate for inpatient admission only. Plan of care upon discharge will need to be reassessed to avoid potential outpatient hypo/hyperglycemia. Thank you.
--- NOTE | 2017-06-23 10:05 | Pharmacy Progress Note ---
Pharmacy Antibiotic Consult Date of Service: Jun 23, 2017. Pharmacy Dosing Scope Pharmacy is consulted to initiate vancomycin and zosyn IV dosing therapy, order appropriate labs and adjust drug dose/frequency. Subjective The patient is a 52 year old male admitted on Jun 21, 2017 at 15:22. Objective Height (Feet): 6 Height (Inches): 0.00 Weight (Kilograms): 74.800 Lab Results (24hrs): Test 06/23/17 00:40 06/23/17 05:42 06/23/17 06:39 06/23/17 07:04 Sodium Level 130 mmol/L (136-145) 134 mmol/L (136-145) White Blood Count 7.78 K/uL (4.8-10.8) Red Blood Count 3.06 M/uL (4.7-6.1) Hemoglobin 8.9 g/dL (14.0-18.0) Hematocrit 27.0 % (42-52) Mean Corpuscular Volume 88.2 fL (80-100) Mean Corpuscular Hemoglobin 29.1 pg (25-34) Mean Corpuscular Hemoglobin Concent 33.0 g/dl (32-36) Platelet Count 375 K/uL (130-400) Mean Platelet Volume 8.5 fL (7.4-10.4) Neutrophils (%) (Auto) 50.1 % Lymphocytes (%) (Auto) 37.5 % Monocytes (%) (Auto) 7.3 % Eosinophils (%) (Auto) 3.0 % Basophils (%) (Auto) 1.8 % Neutrophils # (Auto) 3.90 K/uL (1.4-6.5) Lymphocytes # (Auto) 2.92 K/uL (1.2-3.4) Monocytes # (Auto) 0.57 K/uL (0.11-0.59) Eosinophils # (Auto) 0.23 K/uL (0-0.5) Basophils # (Auto) 0.14 K/uL (0-0.2) RDW Standard Deviation 48.5 fL (36.4-46.3) RDW Coefficient of Variation 15.2 % (11.5-14.5) Immature Granulocyte % (Auto) 0.3 % Immature Granulocyte # (Auto) 0.02 K/uL (0.00-0.02) Acanthocytes 1+ Potassium Level 4.8 mmol/L (3.5-5.1) Chloride Level 103 mmol/L (98-107) Carbon Dioxide Level 29 mmol/L (21-32) Anion Gap 2.0 mmol/L (3-11) Blood Urea Nitrogen 16 mg/dl (7-18) Creatinine 1.17 mg/dl (0.60-1.40) Est Creatinine Clear Calc Drug Dose 77.3 ml/min Estimated GFR () 82.0 Estimated GFR (Non- 70.8 BUN/Creatinine Ratio 13.6 (10-20) Random Glucose 66 mg/dl (70-99) Calcium Level 7.9 mg/dl (8.5-10.1) Bedside Glucose 58 mg/dl (70-99) 95 mg/dl (70-99) Assessment & Plan Patient started on vancomycin and zosyn for a gluteal abscess. Surgery consulted and plan is for bedside incision and drainage this afternoon. Had been previously tx with bactrim x 10 days for infxn per MD notes. Vancomycin: * LD of vancomycin 2000 mg x 1 (26 mg/kg) * Will start MD of vancomycin 1250 mg (~16 mg/kg) iv q 12 hr to achieve an estimated trough ~15-20 mcg/ml (goal for abscess) * Estimated kinetics: t1/2~10 hrs, ke~0.06 hr-1, CrCl ~77 ml/min * Will plan to obtain a trough prior to the 1000 dose on 06/25 to ensure therapeutic Zosyn: * 3.375 gm iv q8 hrs (appropriate for CrCl >20 ml/min) Pharmacy will continue to follow and will adjust dose/frequency as necessary. Thank you
[2017-06-23] MEDS ORDERED: LIDOCAINE HCL 1% 20 ML VIAL ONE (13:11)
--- NOTE | 2017-06-23 14:09 | OPERATIVE REPORT ---
DATE OF OPERATION: 06/23/2017 PREOPERATIVE DIAGNOSIS: Right gluteal abscess. POSTOPERATIVE DIAGNOSIS: Same. PROCEDURE PERFORMED: I&D of deep right gluteal abscess. SURGEON: Dr. Zain Jenkins. CERTIFIED FLEX ENDOSCOPE REPROCESSOR: Concha Shah PA-C. ANESTHESIA: 1% Xylocaine local. ESTIMATED BLOOD LOSS: 2 mL. COMPLICATIONS: None. DRAINS: None. INDICATION FOR PROCEDURE: This is a 52-year-old male who came in with a right gluteal induration and was treated with antibiotics, had a CT scan suggestive of abscesses in his right gluteal area. We talked to him in detail about this and plan on doing a local I&D at the bedside. DESCRIPTION OF PROCEDURE: The patient was placed in the left lateral decubitus position. His buttocks were prepped and draped in normal sterile fashion. 1% Xylocaine was used to create a field block. A 2 inch incision was made over the indurated area where there was some fluctuance. This was opened widely. There was a small amount of pus which was expressed. Intraoperative cultures were taken. There was about 2 mL of blood loss. The incision was then packed and will be packed overnight and we will take the packing out tomorrow and see how he progresses. I attest to the content of the Intraoperative Record and any orders documented therein. Any exception s are noted below.
[2017-06-23] MEDS: PIPERACILL/TAZOBAC IV 3.375 GM in DEXTROSE 5% 100ML IV SCH ×2 (14:36→21:55)
[2017-06-23] MEDS: OXYCODONE/ACETAMINOPHEN 5-325 TAB PO PRN ×2 (16:15→22:02)
--- NOTE | 2017-06-23 19:58 | Progress Note ---
Medicine Progress Note Date & Time of Visit: Jun 23, 2017 at 19:54. Subjective seen resting in bed, comfortable states he felt lightheaded when standing today , but improved denies chest pain, dyspnea still has some tenderness on the right buttock denies fever/chills denies other symptoms Objective Last 8 Hrs Date Time Temp Pulse Resp B/P (MAP) Pulse Ox O2 Delivery O2 Flow Rate FiO2 06/23/17 19:32 37.1 79 16 92/53 (66) 94 Room Air 85 90/48 (62) 78 76/39 (51) 06/23/17 16:00 Room Air 06/23/17 15:25 36.6 78 18 122/74 (90) 95 Room Air 06/23/17 12:05 36.4 80 16 110/67 (81) 94 Room Air 06/23/17 12:00 Room Air Physical Exam: General- oriented x 3, not in distress, speaks in sentences with no effort Eyes-EOMI, anicteric Neck- supple, no JVD Lungs- clear breath sounds bilaterally, no rales, no wheezes Heart- regular rhythm; no murmur, normal rate Abdomen- normal bowel sounds, soft, nontender Buttock- right: (+) soft indurated area, fluctuant mass, mild tenderness, no erythema/warmth Extremities- no pretibial edema, no calf tenderness Neuro- alert, oriented x 3; no gross focal deficits Skin- warm & dry Laboratory Results: Last 24 Hours Test 06/22/17 20:20 06/22/17 23:45 06/23/17 00:40 06/23/17 04:32 Bedside Glucose 307 mg/dl 165 mg/dl 58 mg/dl Sodium Level 130 mmol/L Test 06/23/17 05:11 06/23/17 05:42 06/23/17 06:39 06/23/17 07:04 Bedside Glucose 76 mg/dl 58 mg/dl 95 mg/dl White Blood Count 7.78 K/uL Red Blood Count 3.06 M/uL Hemoglobin 8.9 g/dL Hematocrit 27.0 % Mean Corpuscular Volume 88.2 fL Mean Corpuscular Hemoglobin 29.1 pg Mean Corpuscular Hemoglobin Concent 33.0 g/dl Platelet Count 375 K/uL Mean Platelet Volume 8.5 fL Neutrophils (%) (Auto) 50.1 % Lymphocytes (%) (Auto) 37.5 % Monocytes (%) (Auto) 7.3 % Eosinophils (%) (Auto) 3.0 % Basophils (%) (Auto) 1.8 % Neutrophils # (Auto) 3.90 K/uL Lymphocytes # (Auto) 2.92 K/uL Monocytes # (Auto) 0.57 K/uL Eosinophils # (Auto) 0.23 K/uL Basophils # (Auto) 0.14 K/uL RDW Standard Deviation 48.5 fL RDW Coefficient of Variation 15.2 % Immature Granulocyte % (Auto) 0.3 % Immature Granulocyte # (Auto) 0.02 K/uL Acanthocytes 1+ Sodium Level 134 mmol/L Potassium Level 4.8 mmol/L Chloride Level 103 mmol/L Carbon Dioxide Level 29 mmol/L Anion Gap 2.0 mmol/L Blood Urea Nitrogen 16 mg/dl Creatinine 1.17 mg/dl Est Creatinine Clear Calc Drug Dose 77.3 ml/min Estimated GFR () 82.0 Estimated GFR (Non- 70.8 BUN/Creatinine Ratio 13.6 Random Glucose 66 mg/dl Calcium Level 7.9 mg/dl Test 06/23/17 11:19 06/23/17 16:06 Bedside Glucose 296 mg/dl 141 mg/dl Date/Time Source Procedure Growth Status 06/23/17 13:05 Abscess Buttock Right Gram Stain Pending Received 06/23/17 13:05 Abscess Buttock Right Bacterial Culture Pending Received Assessment & Plan 52 male with history of DM 1, HTN, Hypothyroidism, other problems noted below presenting with dizziness. DIZZINESS, SECONDARY TO ORTHOSTASIS - orthostasis improving - continue IV fluids HOLD Lisinopril monitor - from chronic buttock abscess management as noted below - from DM autonomic neuropathy? may need Florinef, stockings if without improvement RIGHT BUTTOCK ABSCESS - CT of the Pelvis noted - Vanco + Zosyn ordered - Surgery consulted for I&D HYPONATREMIA - appears hypovolemic IV NSS - Na improved to 134 monitor HYPOTHYROIDISM - increased L thyroxine to 350mcg daily repeat TFT in 4 weeks DM 1 - pharmacy consulted HTN (+) orthostasis hold Lisinopril DVT proph SCDs lovenox if staying longer Disposition pending anticipate d/c back to [facility] when medically stable Current Inpatient Medications: Current Inpatient Medications Medications (Trade) Dose Ordered Sig/Radha Route Start Time Stop Time Status Last Admin Dose Admin Miscellaneous (Iv Fluids Completed) 1 ea PRN PRN N/A 06/21/17 16:30 06/21/18 16:29 Sodium Chloride 1,000 ml @ 125 mls/hr Q8H IV 06/21/17 17:00 07/21/17 16:59 06/23/17 11:16 125 MLS/HR Acetaminophen (Tylenol Tab) 650 mg Q4H PRN PO 06/21/17 16:45 07/21/17 16:44 Aspirin (Ecotrin Tab) 81 mg DAILY PO 06/22/17 09:00 07/22/17 08:59 06/23/17 08:14 81 MG Atorvastatin Calcium (Lipitor Tab) 80 mg DAILY PO 06/22/17 09:00 07/22/17 08:59 06/23/17 08:14 80 MG Docusate Sodium (coLACE CAP) 100 mg BID PRN PO 06/21/17 19:15 07/21/17 19:14 Fluoxetine HCl (Prozac Cap) 30 mg DAILY PO 06/22/17 09:00 07/22/17 08:59 06/23/17 08:15 30 MG Gabapentin (Neurontin Tab) 800 mg TID PO 06/21/17 21:00 07/21/17 20:59 06/23/17 14:36 800 MG Levothyroxine Sodium (Synthroid Tab) 350 mcg DAILYBB PO 06/22/17 06:00 07/22/17 05:59 06/23/17 06:28 350 MCG Glucose (Glucose 40% Gel) 15-30 GRAMS 15 GRAMS... UD PRN PO 06/21/17 19:15 07/21/17 19:14 Glucose (Glucose Chew Tab) 4-8 Tablets 4 Tabl... UD PRN PO 06/21/17 19:15 07/21/17 19:14 Dextrose (Dextrose 50% 50ML Syringe) 25-50ML OF 50% DW IV FOR... UD PRN IV 06/21/17 19:15 07/21/17 19:14 Glucagon (Glucagon Inj) 1 mg UD PRN SQ 06/21/17 19:15 07/21/17 19:14 Miscellaneous Information (Consult Glycemic Management Pharmacy) 1 ea UD PRN N/A 06/21/17 19:15 07/21/17 19:14 Insulin Glargine (Lantus Solostar Pen) SEE PROTOCOL PM SC 06/21/17 21:00 07/21/17 20:59 06/22/17 20:30 26 UNITS Ioversol (Optiray 320) 111 ml UD PRN IV 06/22/17 23:30 06/26/17 23:29 Vancomycin HCl (Consult) 1 ea UD PRN N/A 06/23/17 08:11 07/23/17 08:10 Piperacillin Sod/ Tazobactam Sod (Consult) 1 ea UD PRN N/A 06/23/17 08:15 07/23/17 08:14 Piperacillin Sod/ Tazobactam Sod 3.375 gm/Dextrose 115 ml @ 28.75 mls/ hr Q8H IV 06/23/17 14:00 07/03/17 13:59 06/23/17 14:36 28.75 MLS/HR Insulin Aspart (novoLOG ASPART) SLIDING SCALE If C... AC SC 06/23/17 11:00 07/23/17 10:59 06/23/17 17:06 7 UNITS Insulin Aspart (novoLOG ASPART) SLIDING SCALE If C... HS SC 06/23/17 21:00 07/23/17 20:59 Vancomycin HCl 1250 mg/Sodium Chloride 275 ml @ 125 mls/hr Q12H IV 06/23/17 22:00 07/03/17 21:59 Oxycodone/ Acetaminophen (Percocet 5-325mg Tab) `1-2 tabs for pain 1 tab ... Q4H PRN PO 06/23/17 14:00 07/07/17 13:59 06/23/17 16:15 2 TAB
[2017-06-23] MEDS: INSULIN GLARGINE SOLOSTAR 100 UNITS/ML 3 ML PEN SC SCH (20:29)
[2017-06-23] MEDS: VANCOMYCIN INJ 1,250 MG in SODIUM CHLORIDE 0.9% 250ML 250 ML IV SCH (21:55)
[2017-06-24] VITALS (7 sets, daily range): BP systolic 99–138; BP diastolic 60–83; PULSE 69–82; TEMP 36.4–36.9; O2SAT 93–98
[2017-06-24] MEDS: SODIUM CHLORIDE 0.9% 1000ML 1,000 ML IV SCH ×4 (01:20→20:05)
[2017-06-24] MEDS: LEVOTHYROXINE 175 MCG TAB PO SCH (06:17)
[2017-06-24] MEDS: PIPERACILL/TAZOBAC IV 3.375 GM in DEXTROSE 5% 100ML IV SCH ×3 (06:17→22:22)
[2017-06-24] MEDS: OXYCODONE/ACETAMINOPHEN 5-325 TAB PO PRN ×3 (06:22→20:23)
[2017-06-24 06:25] LABS: BASO % 1.4 %; BASO ABS # 0.15 K/uL (0-0.2); COMPLETE YES; EOS % 3.3 %; IG% 0.3 %; LYMPH ABS # 3.34 K/uL (1.2-3.4); MEAN CELL VOLUME 88.7 fL (80-100); MEAN CORPUSCULAR HEMOGLOBIN 29.1 pg (25-34); MEAN CORPUSCULAR HGB CONC 32.8 g/dl (32-36); MEAN PLATELET VOLUME 8.1 fL (7.4-10.4); MONO % 10.1 %; NEUT % 52.9 %; PLATELET COUNT 385 K/uL (130-400); RED BLOOD COUNT 3.27 M/uL (4.7-6.1); WHITE BLOOD COUNT 10.44 K/uL (4.8-10.8)
[2017-06-24 06:58] LABS: BUN/CREATININE RATIO 14.6 (10-20); CREATININE 1.21 mg/dl (0.60-1.40); POTASSIUM 4.3 mmol/L (3.5-5.1)
[2017-06-24] MEDS: INSULIN ASPART 100 UNITS/ML 3 ML PEN SC SCH ×4 (07:57→20:12)
[2017-06-24] MEDS: ASPIRIN 81 MG ECTAB PO SCH (07:59)
[2017-06-24] MEDS: ATORVASTATIN 40 MG TAB PO SCH (07:59)
[2017-06-24] MEDS: GABAPENTIN 800 MG TAB PO SCH ×3 (08:00→20:05)
[2017-06-24] MEDS: FLUOXETINE HCL 10 MG CAP PO SCH (08:01)
--- NOTE | 2017-06-24 08:42 | Surgery Progress Note ---
Surgery Progress Note Date of Service Jun 24, 2017. Subjective Post OP Day: 1 + feeling well, + flatus, + diet (regular), No complaints, No nausea, No vomiting Objective Vital Signs: Date Time Temp Pulse Resp B/P (MAP) Pulse Ox O2 Delivery O2 Flow Rate FiO2 06/24/17 07:49 36.4 74 18 119/71 (87) 93 113/75 (88) 100/65 (77) 06/24/17 04:03 36.4 69 22 116/64 (81) 98 Room Air 06/24/17 04:00 Room Air 06/24/17 00:01 Room Air 06/23/17 23:15 36.5 72 22 140/77 (98) 97 Room Air 72 121/70 (87) 69 106/64 (78) 06/23/17 20:00 Room Air 06/23/17 19:32 37.1 79 16 92/53 (66) 94 Room Air 85 90/48 (62) 78 76/39 (51) 06/23/17 16:00 Room Air 06/23/17 15:25 36.6 78 18 122/74 (90) 95 Room Air 06/23/17 12:05 36.4 80 16 110/67 (81) 94 Room Air 06/23/17 12:00 Room Air General Appearance: WD/WN, no apparent distress Head: normocephalic, atraumatic Neck: supple, trachea midline Incision(s): clean, drainage (bloody; minimal purulence) Extremities: non-tender, no pedal edema Laboratory Results: Results Past 24 Hours Test 06/23/17 11:19 06/23/17 16:06 06/23/17 20:16 06/24/17 06:04 Range/Units Bedside Glucose 296 141 70 70-99 mg/dl White Blood Count 10.44 4.8-10.8 K/uL Red Blood Count 3.27 4.7-6.1 M/uL Hemoglobin 9.5 14.0-18.0 g/dL Hematocrit 29.0 42-52 % Mean Corpuscular Volume 88.7 80-100 fL Mean Corpuscular Hemoglobin 29.1 25-34 pg Mean Corpuscular Hemoglobin Concent 32.8 32-36 g/dl Platelet Count 385 130-400 K/uL Mean Platelet Volume 8.1 7.4-10.4 fL Neutrophils (%) (Auto) 52.9 % Lymphocytes (%) (Auto) 32.0 % Monocytes (%) (Auto) 10.1 % Eosinophils (%) (Auto) 3.3 % Basophils (%) (Auto) 1.4 % Neutrophils # (Auto) 5.53 1.4-6.5 K/uL Lymphocytes # (Auto) 3.34 1.2-3.4 K/uL Monocytes # (Auto) 1.05 0.11-0.59 K/uL Eosinophils # (Auto) 0.34 0-0.5 K/uL Basophils # (Auto) 0.15 0-0.2 K/uL RDW Standard Deviation 49.6 36.4-46.3 fL RDW Coefficient of Variation 15.2 11.5-14.5 % Immature Granulocyte % (Auto) 0.3 % Immature Granulocyte # (Auto) 0.03 0.00-0.02 K/uL Sodium Level 135 136-145 mmol/L Potassium Level 4.3 3.5-5.1 mmol/L Chloride Level 104 98-107 mmol/L Carbon Dioxide Level 27 21-32 mmol/L Anion Gap 4.0 3-11 mmol/L Blood Urea Nitrogen 18 7-18 mg/dl Creatinine 1.21 0.60-1.40 mg/dl Est Creatinine Clear Calc Drug Dose 77.1 ml/min Estimated GFR () 78.7 Estimated GFR (Non- 67.9 BUN/Creatinine Ratio 14.6 10-20 Random Glucose 40 70-99 mg/dl Calcium Level 8.0 8.5-10.1 mg/dl Test 06/24/17 06:12 06/24/17 06:30 06/24/17 06:45 Range/Units Bedside Glucose 49 50 73 70-99 mg/dl Microbiology Results 06/23/17 Gram Stain, Received Pending 06/23/17 Bacterial Culture, Received Pending Assessment & Plan gluteal abscess s/p I&D -begin dressings as ordered and continue at home till wound heals by secondary intention -IV abx to oral and discharge per medical team -follow-up with state medical staff
[2017-06-24] MEDS: VANCOMYCIN INJ 1,250 MG in SODIUM CHLORIDE 0.9% 250ML 250 ML IV SCH ×2 (10:08→20:16)
[2017-06-24] MEDS ORDERED: COSYNTROPIN INJ 250 MCG in SYRINGE 4 ML IV ONE (10:30)
[2017-06-24] MEDS ORDERED: COSYNTROPIN INJ 0.25 MCG in SYRINGE 4 ML IV ONE (10:30)
[2017-06-24 11:19] LABS: INR 0.9 (0.9-1.1)
[2017-06-24] MEDS: HEPARIN SOD 5000 UNIT/0.5 ML CARP SQ SCH ×2 (13:31→22:23)
--- NOTE | 2017-06-24 14:47 | Pharmacy Progress Note ---
Glycemic Control Progress Note Date of Service Jun 24, 2017. Scope Glycemic Pharmacist consulted for glycemic control to write orders per [facility] inpatient glycemic control protocol. Objective Accuchecks BSG (last 24hrs): Test 06/23/17 16:06 06/23/17 20:16 06/24/17 06:04 06/24/17 06:12 Bedside Glucose 141 mg/dl (70-99) 70 mg/dl (70-99) 49 mg/dl (70-99) Random Glucose 40 mg/dl (70-99) Test 06/24/17 06:30 06/24/17 06:45 06/24/17 11:16 06/24/17 13:17 Bedside Glucose 50 mg/dl (70-99) 73 mg/dl (70-99) 182 mg/dl (70-99) 175 mg/dl (70-99) HbA1c: Test 06/22/17 06:02 Hemoglobin A1c 11.7 % (4.5-5.6) H Recent Pertinent Medications Outpatient Anti-diabetic Regimen: * Lantus 26 units HS * Humulin R sliding scale, 2-4 units * Pt reports not wanting to take prandial insulin, and having hypoglycemia with 26 units of Lantus * A1c = 11.7 % 06/22/17 The patient is currently receiving: * Basal insulin: * LANTUS SQ BID * BSG < 120mg/dl - 13 units * BSG 120-250mg/dl - 20 units * BSG 251mg/dl or greater - 23 units * Correctional Insulin with NOVOLOG per scale AC * Goal Range: Low 120 mg/dL - High 150 mg/dL * Correction Factor: 45 mg/dL/unit * Nutritional / Prandial insulin per carb ratio of 1 unit per 15 grams CHO consumed * Correctional Insulin with NOVOLOG per scale HS * Correction Factor: 60 mg/dL/unit * Nutritional / Prandial insulin per carb ratio of 1 unit per 20 grams CHO consumed Risk Factors for Insulin Resistance: * Infection: IV Vancomycin and Zosyn for abscess * Diet: Type 2 DM Assessment & Plan ASSESSMENT: 06/24 * Blood sugars dropped overnight again despite change in CR and CF. Will eliminate CR completely at bedtime * Pt does not want to have prandial insulin as an outpatient and really does not like when his blood sugars go low, which he reports happens especially if he has more than 20 units of Lantus at bedtime. Change scale so pt only gets more than 20 units of Lantus if BSG > 250mg/dl 06/23 * Yesterday blood sugar soto to 305mg/dl prior to dinner, so CF and CR were tightened, but then patient's BSG fell overnight after correction at 2100. * Pt requires a less aggressive CR and CF at bedtime, will adjust accordingly to prevent hypoglycemia overnight, and continue tighter CR and CF during the day /mealtimes. * Pt started IV Vancomycin and Zosyn for buttocks abscess 06/22 * 52 year old male, admitted with hypotension. * Uncontrolled type 1 diabetic, A1c 11.7%. * BSGs at goal as inpatient on basal bolus regimen. No changes needed at this time. PLAN FOR INPATIENT GLYCEMIC CONTROL: * Holding outpatient oral diabetes medications * Basal insulin with LANTUS SQ BID * BSG < 120mg/dl - 13 units * BSG 120-249mg/dl - 20 units * BSG 250mg/dl or greater - 23 units * Correctional Insulin with NOVOLOG per scale AC * Goal Range: Low 120 mg/dL - High 150 mg/dL * Correction Factor: 45 mg/dL/unit * Nutritional / Prandial insulin per carb ratio of 1 unit per 15 grams CHO consumed * Correctional Insulin with NOVOLOG per scale HS * Correction Factor: 60 mg/dL/unit * No carb ratio OUTPATIENT RECOMMENDATIONS: * Uncontrolled type 1 DM, A1c 11.7% * Recommend meal time insulin, instead of just a sliding scale with analog insulin, but patient is resistant to doing this * Please note that the plan above was derived based on current level of insulin resistance and hospital stress. These recommendations are appropriate for inpatient admission only. Plan of care upon discharge will need to be reassessed to avoid potential outpatient hypo/hyperglycemia. Thank you.
--- NOTE | 2017-06-24 18:28 | Progress Note ---
Medicine Progress Note Date & Time of Visit: Jun 24, 2017 at 18:20. Subjective seen resting in bed, comfortable still has some dizziness/lightheadedness when standing denies chest pain, dyspnea has some pain on the I&D site no other symptoms Objective Last 8 Hrs Date Time Temp Pulse Resp B/P (MAP) Pulse Ox O2 Delivery O2 Flow Rate FiO2 06/24/17 16:00 Room Air 06/24/17 15:24 36.5 75 18 99/60 (73) 96 Room Air 06/24/17 12:00 Room Air 06/24/17 11:45 36.5 73 18 138/83 (101) 95 Physical Exam: General- oriented x 3, not in distress, speaks in sentences with no effort Eyes-anicteric Neck- no JVD Lungs- clear breath sounds bilaterally Heart- regular rhythm; no murmur, normal rate Abdomen- normal bowel sounds, soft, nontender Extremities- no pretibial edema, no calf tenderness Neuro- alert, oriented x 3; no gross focal deficits Skin- warm & dry Laboratory Results: Last 24 Hours Test 06/23/17 20:16 06/24/17 06:04 06/24/17 06:12 06/24/17 06:30 Bedside Glucose 70 mg/dl 49 mg/dl 50 mg/dl White Blood Count 10.44 K/uL Red Blood Count 3.27 M/uL Hemoglobin 9.5 g/dL Hematocrit 29.0 % Mean Corpuscular Volume 88.7 fL Mean Corpuscular Hemoglobin 29.1 pg Mean Corpuscular Hemoglobin Concent 32.8 g/dl Platelet Count 385 K/uL Mean Platelet Volume 8.1 fL Neutrophils (%) (Auto) 52.9 % Lymphocytes (%) (Auto) 32.0 % Monocytes (%) (Auto) 10.1 % Eosinophils (%) (Auto) 3.3 % Basophils (%) (Auto) 1.4 % Neutrophils # (Auto) 5.53 K/uL Lymphocytes # (Auto) 3.34 K/uL Monocytes # (Auto) 1.05 K/uL Eosinophils # (Auto) 0.34 K/uL Basophils # (Auto) 0.15 K/uL RDW Standard Deviation 49.6 fL RDW Coefficient of Variation 15.2 % Immature Granulocyte % (Auto) 0.3 % Immature Granulocyte # (Auto) 0.03 K/uL Sodium Level 135 mmol/L Potassium Level 4.3 mmol/L Chloride Level 104 mmol/L Carbon Dioxide Level 27 mmol/L Anion Gap 4.0 mmol/L Blood Urea Nitrogen 18 mg/dl Creatinine 1.21 mg/dl Est Creatinine Clear Calc Drug Dose 77.1 ml/min Estimated GFR () 78.7 Estimated GFR (Non- 67.9 BUN/Creatinine Ratio 14.6 Random Glucose 40 mg/dl Calcium Level 8.0 mg/dl Test 06/24/17 06:45 06/24/17 10:54 06/24/17 11:16 06/24/17 13:17 Bedside Glucose 73 mg/dl 182 mg/dl 175 mg/dl Prothrombin Time 10.0 SECONDS Prothromb Time International Ratio 0.9 Test 06/24/17 16:18 Bedside Glucose 86 mg/dl Assessment & Plan 52 male with history of DM 1, HTN, Hypothyroidism, other problems noted below presenting with dizziness. DIZZINESS, SECONDARY TO ORTHOSTASIS - orthostasis about the same - continue IV fluids HOLD Lisinopril monitor - from chronic buttock abscess management as noted below - from DM autonomic neuropathy? compression stockings check Cosyntropin test may need florinef RIGHT BUTTOCK ABSCESS - CT of the Pelvis noted - s/p I&D of the buttock abscess appreciate Dr. Jenkins's recommendations - Vanco + Zosyn ordered day 2 monitor HYPONATREMIA - appears hypovolemic IV NSS - Na improved to 134 monitor HYPOTHYROIDISM - increased L thyroxine to 350mcg daily repeat TFT in 4 weeks DM 1, Uncontrolled - A1C 11 - pharmacy consulted HTN (+) orthostasis hold Lisinopril DVT proph Heparin SC Disposition pending anticipate d/c back to [facility] when medically stable Current Inpatient Medications: Current Inpatient Medications Medications (Trade) Dose Ordered Sig/Radha Route Start Time Stop Time Status Last Admin Dose Admin Miscellaneous (Iv Fluids Completed) 1 ea PRN PRN N/A 06/21/17 16:30 06/21/18 16:29 Sodium Chloride 1,000 ml @ 125 mls/hr Q8H IV 06/21/17 17:00 07/21/17 16:59 06/24/17 10:08 125 MLS/HR Acetaminophen (Tylenol Tab) 650 mg Q4H PRN PO 06/21/17 16:45 07/21/17 16:44 Aspirin (Ecotrin Tab) 81 mg DAILY PO 06/22/17 09:00 07/22/17 08:59 06/24/17 07:59 81 MG Atorvastatin Calcium (Lipitor Tab) 80 mg DAILY PO 06/22/17 09:00 07/22/17 08:59 06/24/17 07:59 80 MG Docusate Sodium (coLACE CAP) 100 mg BID PRN PO 06/21/17 19:15 07/21/17 19:14 Fluoxetine HCl (Prozac Cap) 30 mg DAILY PO 06/22/17 09:00 07/22/17 08:59 06/24/17 08:01 30 MG Gabapentin (Neurontin Tab) 800 mg TID PO 06/21/17 21:00 07/21/17 20:59 06/24/17 13:13 800 MG Levothyroxine Sodium (Synthroid Tab) 350 mcg DAILYBB PO 06/22/17 06:00 07/22/17 05:59 06/24/17 06:17 350 MCG Glucose (Glucose 40% Gel) 15-30 GRAMS 15 GRAMS... UD PRN PO 06/21/17 19:15 07/21/17 19:14 Glucose (Glucose Chew Tab) 4-8 Tablets 4 Tabl... UD PRN PO 06/21/17 19:15 07/21/17 19:14 Dextrose (Dextrose 50% 50ML Syringe) 25-50ML OF 50% DW IV FOR... UD PRN IV 06/21/17 19:15 07/21/17 19:14 Glucagon (Glucagon Inj) 1 mg UD PRN SQ 06/21/17 19:15 07/21/17 19:14 Miscellaneous Information (Consult Glycemic Management Pharmacy) 1 ea UD PRN N/A 06/21/17 19:15 07/21/17 19:14 Insulin Glargine (Lantus Solostar Pen) SEE PROTOCOL PM SC 06/21/17 21:00 07/21/17 20:59 06/23/17 20:29 13 UNITS Ioversol (Optiray 320) 111 ml UD PRN IV 06/22/17 23:30 06/26/17 23:29 Vancomycin HCl (Consult) 1 ea UD PRN N/A 06/23/17 08:11 07/23/17 08:10 Piperacillin Sod/ Tazobactam Sod (Consult) 1 ea UD PRN N/A 06/23/17 08:15 07/23/17 08:14 Piperacillin Sod/ Tazobactam Sod 3.375 gm/Dextrose 115 ml @ 28.75 mls/ hr Q8H IV 06/23/17 14:00 07/03/17 13:59 06/24/17 13:34 28.75 MLS/HR Insulin Aspart (novoLOG ASPART) SLIDING SCALE If C... AC SC 06/23/17 11:00 07/23/17 10:59 06/24/17 17:07 5 UNITS Insulin Aspart (novoLOG ASPART) SLIDING SCALE If C... HS SC 06/23/17 21:00 07/23/17 20:59 06/23/17 20:28 1 UNITS Vancomycin HCl 1250 mg/Sodium Chloride 275 ml @ 125 mls/hr Q12H IV 06/23/17 22:00 07/03/17 21:59 06/24/17 10:08 125 MLS/HR Oxycodone/ Acetaminophen (Percocet 5-325mg Tab) `1-2 tabs for pain 1 tab ... Q4H PRN PO 06/23/17 14:00 07/07/17 13:59 06/24/17 13:12 2 TAB Heparin Sodium (Porcine) (Heparin Sq 5000 Unit/0.5ml) 5,000 unit Q8 SQ 06/24/17 14:00 07/24/17 13:59 06/24/17 13:31 5,000 UNIT Cosyntropin 250 mcg/Syringe 5 ml @ 2.5 mls/min TODAY@0800 ONCE IV 06/25/17 08:00 06/25/17 08:01
[2017-06-24] MEDS: INSULIN GLARGINE SOLOSTAR 100 UNITS/ML 3 ML PEN SC SCH (20:15)
[2017-06-25] VITALS (10 sets, daily range): BP systolic 114–160; BP diastolic 64–92; PULSE 72–85; TEMP 36.5–36.8; O2SAT 94–99
[2017-06-25] MEDS: PIPERACILL/TAZOBAC IV 3.375 GM in DEXTROSE 5% 100ML IV SCH (06:10)
[2017-06-25] MEDS: LEVOTHYROXINE 175 MCG TAB PO SCH (06:10)
[2017-06-25] MEDS: SODIUM CHLORIDE 0.9% 1000ML 1,000 ML IV SCH ×3 (06:11→17:09)
[2017-06-25] MEDS: HEPARIN SOD 5000 UNIT/0.5 ML CARP SQ SCH ×3 (06:12→21:07)
[2017-06-25] MEDS: OXYCODONE/ACETAMINOPHEN 5-325 TAB PO PRN ×2 (06:18→15:19)
[2017-06-25] MEDS ORDERED: COSYNTROPIN INJ 250 MCG in SYRINGE 4 ML IV ONE (08:00)
[2017-06-25 08:18] LABS: BASO % 1.6 %; BASO ABS # 0.13 K/uL (0-0.2); EOS % 4.9 %; HEMATOCRIT 25.9 % (42-52); IG% 0.1 %; LYMPH % 29.2 %; LYMPH ABS # 2.31 K/uL (1.2-3.4); MEAN CELL VOLUME 88.7 fL (80-100); MEAN CORPUSCULAR HEMOGLOBIN 29.5 pg (25-34); MEAN CORPUSCULAR HGB CONC 33.2 g/dl (32-36); MEAN PLATELET VOLUME 8.1 fL (7.4-10.4); MONO % 8.1 %; NEUT % 56.1 %; PLATELET COUNT 336 K/uL (130-400); RED BLOOD COUNT 2.92 M/uL (4.7-6.1)
[2017-06-25 08:55] LABS: ACANTHOCYTES 1+; COMPLETE YES
[2017-06-25 09:08] LABS: BUN/CREATININE RATIO 12.6 (10-20); CALCIUM 8.1 mg/dl (8.5-10.1); CREATININE 1.15 mg/dl (0.60-1.40)
[2017-06-25] MEDS ORDERED: VANCOMYCIN TROUGH ONE (09:30)
[2017-06-25] MEDS: INSULIN ASPART 100 UNITS/ML 3 ML PEN SC SCH ×4 (09:56→21:05)
[2017-06-25] MEDS: ASPIRIN 81 MG ECTAB PO SCH (09:57)
[2017-06-25] MEDS: VANCOMYCIN INJ 1,250 MG in SODIUM CHLORIDE 0.9% 250ML 250 ML IV SCH (09:58)
[2017-06-25] MEDS: ATORVASTATIN 40 MG TAB PO SCH (09:58)
[2017-06-25] MEDS: GABAPENTIN 800 MG TAB PO SCH ×3 (09:58→19:42)
[2017-06-25] MEDS: FLUOXETINE HCL 10 MG CAP PO SCH (09:58)
[2017-06-25] MEDS: LEVOFLOXACIN 750 MG TAB PO SCH (15:15)
--- NOTE | 2017-06-25 18:11 | Progress Note ---
Medicine Progress Note Date & Time of Visit: Jun 25, 2017 at 18:07. Subjective patient seen resting in bed, comfortable states he feels ok today was still slightly lightheaded when standing, feels this is improving pain on the I&D site improving denies other symptoms Objective Last 8 Hrs Date Time Temp Pulse Resp B/P (MAP) Pulse Ox O2 Delivery O2 Flow Rate FiO2 06/25/17 16:00 Room Air 06/25/17 15:15 36.8 80 21 160/82 (108) 97 Room Air 06/25/17 12:00 Room Air 06/25/17 11:41 36.7 82 18 135/74 (94) 95 Physical Exam: General- oriented x 3, not in distress, speaks in sentences with no effort Lungs- clear BS BL Heart- regular rhythm; no murmur, normal rate Abdomen- normal bowel sounds, soft, nontender Extremities- no pretibial edema, no calf tenderness Neuro- alert, oriented x 3; no gross focal deficits Skin- warm & dry Laboratory Results: Last 24 Hours Test 06/24/17 20:11 06/25/17 06:05 06/25/17 07:59 06/25/17 09:28 Bedside Glucose 104 mg/dl 97 mg/dl White Blood Count 7.90 K/uL Red Blood Count 2.92 M/uL Hemoglobin 8.6 g/dL Hematocrit 25.9 % Mean Corpuscular Volume 88.7 fL Mean Corpuscular Hemoglobin 29.5 pg Mean Corpuscular Hemoglobin Concent 33.2 g/dl Platelet Count 336 K/uL Mean Platelet Volume 8.1 fL Neutrophils (%) (Auto) 56.1 % Lymphocytes (%) (Auto) 29.2 % Monocytes (%) (Auto) 8.1 % Eosinophils (%) (Auto) 4.9 % Basophils (%) (Auto) 1.6 % Neutrophils # (Auto) 4.42 K/uL Lymphocytes # (Auto) 2.31 K/uL Monocytes # (Auto) 0.64 K/uL Eosinophils # (Auto) 0.39 K/uL Basophils # (Auto) 0.13 K/uL RDW Standard Deviation 50.7 fL RDW Coefficient of Variation 15.6 % Immature Granulocyte % (Auto) 0.1 % Immature Granulocyte # (Auto) 0.01 K/uL Acanthocytes 1+ Sodium Level 141 mmol/L Potassium Level 5.0 mmol/L Chloride Level 106 mmol/L Carbon Dioxide Level 30 mmol/L Anion Gap 5.0 mmol/L Blood Urea Nitrogen 15 mg/dl Creatinine 1.15 mg/dl Est Creatinine Clear Calc Drug Dose 81.6 ml/min Estimated GFR () 83.7 Estimated GFR (Non- 72.3 BUN/Creatinine Ratio 12.6 Random Glucose 84 mg/dl Calcium Level 8.1 mg/dl Cortisol Response to Stimulation Cortisol Baseline Vancomycin Level Trough 22.4 mcg/ml Test 06/25/17 09:32 06/25/17 11:08 06/25/17 16:17 Bedside Glucose 83 mg/dl 128 mg/dl 219 mg/dl Assessment & Plan 52 male with history of DM 1, HTN, Hypothyroidism, other problems noted below presenting with dizziness. DIZZINESS, SECONDARY TO ORTHOSTASIS - orthostasis improving - continue IV fluids HOLD Lisinopril monitor - from chronic buttock abscess management as noted below - from DM autonomic neuropathy? compression stockings Cosyntropin test: negative - continue to monitor BP, if stable, d/c tomorrow RIGHT BUTTOCK ABSCESS - CT of the Pelvis noted - s/p I&D of the buttock abscess appreciate Dr. Jenkins's recommendations - Culture of drainage: negative so far - Vanco + Zosyn ordered x 2 days --> changed to Doxy + Levaquin Day 1 monitor HYPONATREMIA - appears hypovolemic IV NSS - Na improved to 141 HYPOTHYROIDISM - increased L thyroxine to 350mcg daily repeat TFT in 4 weeks DM 1, Uncontrolled - A1C 11 - pharmacy consulted HTN (+) orthostasis hold Lisinopril DVT proph Heparin SC Disposition pending anticipate d/c back to [facility] when medically stable Current Inpatient Medications: Current Inpatient Medications Medications (Trade) Dose Ordered Sig/Radha Route Start Time Stop Time Status Last Admin Dose Admin Miscellaneous (Iv Fluids Completed) 1 ea PRN PRN N/A 06/21/17 16:30 06/21/18 16:29 Sodium Chloride 1,000 ml @ 125 mls/hr Q8H IV 06/21/17 17:00 07/21/17 16:59 06/25/17 17:09 125 MLS/HR Acetaminophen (Tylenol Tab) 650 mg Q4H PRN PO 06/21/17 16:45 07/21/17 16:44 Aspirin (Ecotrin Tab) 81 mg DAILY PO 06/22/17 09:00 07/22/17 08:59 06/25/17 09:57 81 MG Atorvastatin Calcium (Lipitor Tab) 80 mg DAILY PO 06/22/17 09:00 07/22/17 08:59 06/25/17 09:58 80 MG Docusate Sodium (coLACE CAP) 100 mg BID PRN PO 06/21/17 19:15 07/21/17 19:14 Fluoxetine HCl (Prozac Cap) 30 mg DAILY PO 06/22/17 09:00 07/22/17 08:59 06/25/17 09:58 30 MG Gabapentin (Neurontin Tab) 800 mg TID PO 06/21/17 21:00 07/21/17 20:59 06/25/17 15:15 800 MG Levothyroxine Sodium (Synthroid Tab) 350 mcg DAILYBB PO 06/22/17 06:00 07/22/17 05:59 06/25/17 06:10 350 MCG Glucose (Glucose 40% Gel) 15-30 GRAMS 15 GRAMS... UD PRN PO 06/21/17 19:15 07/21/17 19:14 Glucose (Glucose Chew Tab) 4-8 Tablets 4 Tabl... UD PRN PO 06/21/17 19:15 07/21/17 19:14 Dextrose (Dextrose 50% 50ML Syringe) 25-50ML OF 50% DW IV FOR... UD PRN IV 06/21/17 19:15 07/21/17 19:14 Glucagon (Glucagon Inj) 1 mg UD PRN SQ 06/21/17 19:15 07/21/17 19:14 Miscellaneous Information (Consult Glycemic Management Pharmacy) 1 ea UD PRN N/A 06/21/17 19:15 07/21/17 19:14 Insulin Glargine (Lantus Solostar Pen) SEE PROTOCOL PM SC 06/21/17 21:00 07/21/17 20:59 06/24/17 20:15 13 UNITS Ioversol (Optiray 320) 111 ml UD PRN IV 06/22/17 23:30 06/26/17 23:29 Insulin Aspart (novoLOG ASPART) SLIDING SCALE If C... AC SC 06/23/17 11:00 12/31/17 10:59 06/25/17 17:10 9 UNITS Insulin Aspart (novoLOG ASPART) SLIDING SCALE If C... HS SC 06/23/17 21:00 07/23/17 20:59 06/23/17 20:28 1 UNITS Oxycodone/ Acetaminophen (Percocet 5-325mg Tab) `1-2 tabs for pain 1 tab ... Q4H PRN PO 06/23/17 14:00 07/07/17 13:59 06/25/17 15:19 2 TAB Heparin Sodium (Porcine) (Heparin Sq 5000 Unit/0.5ml) 5,000 unit Q8 SQ 06/24/17 14:00 07/24/17 13:59 06/25/17 15:20 5,000 UNIT Levofloxacin (Levaquin Tab) 750 mg DAILY@11 PO 06/25/17 15:00 06/29/17 11:01 06/25/17 15:15 750 MG Doxycycline Hyclate (Vibramycin Cap) 100 mg BID PO 06/25/17 21:00 07/05/17 20:59
[2017-06-25] MEDS: DOXYCYCLINE HYCLATE 100 MG CAP PO SCH (19:43)
[2017-06-25] MEDS: INSULIN GLARGINE SOLOSTAR 100 UNITS/ML 3 ML PEN SC SCH (21:06)
[2017-06-26] VITALS (15 sets, daily range): BP systolic 114–169; BP diastolic 62–91; PULSE 40–79; TEMP 36.5–36.6; O2SAT 96–99
[2017-06-26] MEDS: SODIUM CHLORIDE 0.9% 1000ML 1,000 ML IV SCH ×3 (00:37→17:02)
[2017-06-26] MEDS: HEPARIN SOD 5000 UNIT/0.5 ML CARP SQ SCH ×3 (06:14→21:16)
[2017-06-26] MEDS: LEVOTHYROXINE 175 MCG TAB PO SCH (06:14)
[2017-06-26 07:36] LABS: BASO % 1.3 %; BASO ABS # 0.14 K/uL (0-0.2); COMPLETE YES; EOS % 3.2 %; HEMATOCRIT 28.7 % (42-52); IG% 0.3 %; LYMPH ABS # 2.57 K/uL (1.2-3.4); MEAN CELL VOLUME 89.1 fL (80-100); MEAN CORPUSCULAR HEMOGLOBIN 29.5 pg (25-34); MEAN CORPUSCULAR HGB CONC 33.1 g/dl (32-36); MEAN PLATELET VOLUME 8.6 fL (7.4-10.4); MONO % 7.2 %; PLATELET COUNT 452 K/uL (130-400); RED BLOOD COUNT 3.22 M/uL (4.7-6.1); WHITE BLOOD COUNT 10.69 K/uL (4.8-10.8)
[2017-06-26 08:06] LABS: BUN/CREATININE RATIO 12.6 (10-20); CALCIUM 8.6 mg/dl (8.5-10.1); CREATININE 1.02 mg/dl (0.60-1.40); POTASSIUM 4.1 mmol/L (3.5-5.1)
[2017-06-26] MEDS: ASPIRIN 81 MG ECTAB PO SCH (08:31)
[2017-06-26] MEDS: DOXYCYCLINE HYCLATE 100 MG CAP PO SCH ×2 (08:31→19:41)
[2017-06-26] MEDS: GABAPENTIN 800 MG TAB PO SCH ×3 (08:31→19:40)
[2017-06-26] MEDS: FLUOXETINE HCL 10 MG CAP PO SCH (08:31)
[2017-06-26] MEDS: ATORVASTATIN 40 MG TAB PO SCH (08:31)
[2017-06-26] MEDS: INSULIN ASPART 100 UNITS/ML 3 ML PEN SC SCH ×4 (08:34→19:40)
[2017-06-26] MEDS: OXYCODONE/ACETAMINOPHEN 5-325 TAB PO PRN ×3 (08:36→21:23)
--- NOTE | 2017-06-26 09:33 | Pharmacy Progress Note ---
Glycemic: Assessment & Plan Date of Service Jun 26, 2017. Assessment & Plan The patient is currently receiving 43 units of insulin per day. BSGs ranging 83 - 219 mg/dl over the past 24hrs. * Basal insulin: Lantus 13 units (BSG < 120), 20 units (BSG 120-250) , 23 units (BSG>250) every 24 hours * Correctional Insulin: Novolog Correction per scale ACHS Goal Range: Low 120 mg/dL - High 150 mg/dL Correction Factor: 45 mg/dL/unit AC; 60 mg/dl/unit HS * Prandial insulin: Per carb ratio of 1 unit per 12 grams CHO consumed BSGs continue to improve, except mildly elevated dinner and HS readings. Patient is very labile experiencing highs and lows over the last few days.Will continue lantus and novolog scale for now, until more of a trend can be determined. Pharmacy will continue to monitor patient daily and write orders per [facility] inpatient glycemic control protocol. Thanks. * Please note that the plan above was derived based on current level of insulin resistance and hospital stress. These recommendations are appropriate for inpatient admission only. Plan of care upon discharge will need to be reassessed to avoid potential outpatient hypo/hyperglycemia.
[2017-06-26] MEDS: LEVOFLOXACIN 750 MG TAB PO SCH (12:28)
[2017-06-26] MEDS ORDERED: LISINOPRIL 2.5 MG TAB PO ONE (18:04)
[2017-06-26] MEDS: INSULIN GLARGINE SOLOSTAR 100 UNITS/ML 3 ML PEN SC SCH (19:50)
[2017-06-27] VITALS (18 sets, daily range): BP systolic 77–166; BP diastolic 40–88; PULSE 62–84; TEMP 36.3–36.8; O2SAT 96–97
[2017-06-27] MEDS: LEVOTHYROXINE 175 MCG TAB PO SCH (06:28)
[2017-06-27] MEDS: HEPARIN SOD 5000 UNIT/0.5 ML CARP SQ SCH ×3 (06:29→20:39)
[2017-06-27] MEDS: OXYCODONE/ACETAMINOPHEN 5-325 TAB PO PRN ×3 (06:32→20:35)
[2017-06-27 06:39] LABS: HEMATOCRIT 27.6 % (42-52); MEAN CORPUSCULAR HEMOGLOBIN 28.7 pg (25-34); MEAN CORPUSCULAR HGB CONC 32.2 g/dl (32-36); MEAN PLATELET VOLUME 8.4 fL (7.4-10.4); PLATELET COUNT 362 K/uL (130-400); WHITE BLOOD COUNT 8.54 K/uL (4.8-10.8)
[2017-06-27] MEDS ORDERED: LISINOPRIL 2.5 MG TAB PO SCH (09:00)
[2017-06-27] MEDS: FLUOXETINE HCL 10 MG CAP PO SCH (09:19)
[2017-06-27] MEDS: DOXYCYCLINE HYCLATE 100 MG CAP PO SCH ×2 (09:19→20:36)
[2017-06-27] MEDS: GABAPENTIN 800 MG TAB PO SCH ×3 (09:20→20:36)
[2017-06-27] MEDS: ATORVASTATIN 40 MG TAB PO SCH (09:20)
[2017-06-27] MEDS: ASPIRIN 81 MG ECTAB PO SCH (09:20)
[2017-06-27] MEDS: INSULIN ASPART 100 UNITS/ML 3 ML PEN SC SCH ×4 (09:23→20:38)
--- NOTE | 2017-06-27 12:08 | Pharmacy Progress Note ---
Glycemic: Assessment & Plan Date of Service Jun 27, 2017. Assessment & Plan The patient is currently receiving 26 units of insulin per day. BSGs ranging 107 - 225 mg/dl over the past 24hrs. Will increase lantus dose and tighten correction factor to combat elevated blood sugars today. PLAN: * Basal insulin: Lantus 20 units every 24 hours * Correctional Insulin: Novolog Correction per scale AC Goal Range: Low 120 mg/dL - High 150 mg/dL Correction Factor: 40 mg/dL/unit * Correctional Insulin: Novolog Correction per scale HS Goal Range: Low 120 mg/dL - High 150 mg/dL Correction Factor: 60 mg/dL/unit * Prandial insulin: Per carb ratio of 1 unit per 12 grams CHO consumed Pharmacy will continue to monitor patient daily and write orders per [facility] inpatient glycemic control protocol. Thanks. * Please note that the plan above was derived based on current level of insulin resistance and hospital stress. These recommendations are appropriate for inpatient admission only. Plan of care upon discharge will need to be reassessed to avoid potential outpatient hypo/hyperglycemia.
[2017-06-27] MEDS: LEVOFLOXACIN 750 MG TAB PO SCH (13:47)
[2017-06-27] MEDS: SODIUM CHLORIDE 0.9% 1000ML 1,000 ML IV SCH (20:35)
--- NOTE | 2017-06-27 20:38 | Progress Note ---
Medicine Progress Note Date & Time of Visit: Jun 27, 2017 at 20:32. 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 reports patient "turned white" when he stood up today denies chest pain, dyspnea, palpitations incision site pain improving denies other symptoms Objective Last 8 Hrs Date Time Temp Pulse Resp B/P (MAP) Pulse Ox O2 Delivery O2 Flow Rate FiO2 06/27/17 19:20 36.7 78 18 144/73 (96) 97 Room Air 06/27/17 16:00 97 Room Air 06/27/17 15:51 62 24 81/51 (61) 06/27/17 15:49 77 22 80/54 (63) 06/27/17 15:47 84 77/40 (52) 06/27/17 15:45 83 22 90/58 (69) 06/27/17 15:43 82 20 102/64 (77) 06/27/17 15:41 36.7 79 18 132/67 (88) 96 Room Air Physical Exam: General- oriented x 3, not in distress, speaks in sentences with no effort Lungs- clear breath sounds bilaterally, Heart- regular rhythm; no murmur, normal rate Abdomen- normal bowel sounds, non distended, soft, nontender Extremities- no pretibial edema, no calf tenderness Neuro- alert, oriented x 3; no gross focal deficits Skin- warm & dry Laboratory Results: Last 24 Hours Test 06/27/17 06:10 06/27/17 06:18 06/27/17 11:03 06/27/17 16:31 White Blood Count 8.54 K/uL Red Blood Count 3.10 M/uL Hemoglobin 8.9 g/dL Hematocrit 27.6 % Mean Corpuscular Volume 89.0 fL Mean Corpuscular Hemoglobin 28.7 pg Mean Corpuscular Hemoglobin Concent 32.2 g/dl RDW Standard Deviation 51.1 fL RDW Coefficient of Variation 15.9 % Platelet Count 362 K/uL Mean Platelet Volume 8.4 fL Bedside Glucose 217 mg/dl 225 mg/dl 52 mg/dl Test 06/27/17 16:52 06/27/17 20:18 Bedside Glucose 83 mg/dl 160 mg/dl Assessment & Plan 52 male with history of DM 1, HTN, Hypothyroidism, other problems noted below presenting with dizziness. DIZZINESS, SECONDARY TO ORTHOSTASIS - usual Lisinopril 2.5mg po daily resumed this AM as BP was elevated yesterday up to systolic 169 (+) Orthostasis again today d/c Lisinopril for now - resume IV fluids - chronic buttock abscess s/p I&D continue Levaquin, Doxycycline - from DM autonomic neuropathy? compression stockings Cosyntropin test: negative - will consult Cardiology for further recommendations RIGHT BUTTOCK ABSCESS - s/p I&D of the buttock abscess appreciate Dr. Jenkins's recommendations - Culture of drainage: Coag Neg staph - Vanco + Zosyn ordered x 2 days --> changed to Doxy + Levaquin Day 2 monitor HYPONATREMIA - appears hypovolemic IV NSS - Na improved to 144 HYPOTHYROIDISM - increased L thyroxine to 350mcg daily repeat TFT in 4 weeks DM 1, Uncontrolled - A1C 11 - pharmacy consulted HTN (+) orthostasis hold Lisinopril DVT proph Heparin SC Disposition pending anticipate d/c back to [facility] when medically stable Current Inpatient Medications: Current Inpatient Medications Medications (Trade) Dose Ordered Sig/Radha Route Start Time Stop Time Status Last Admin Dose Admin Miscellaneous (Iv Fluids Completed) 1 ea PRN PRN N/A 06/21/17 16:30 06/21/18 16:29 Acetaminophen (Tylenol Tab) 650 mg Q4H PRN PO 06/21/17 16:45 07/21/17 16:44 Aspirin (Ecotrin Tab) 81 mg DAILY PO 06/22/17 09:00 07/22/17 08:59 06/27/17 09:20 81 MG Atorvastatin Calcium (Lipitor Tab) 80 mg DAILY PO 06/22/17 09:00 07/22/17 08:59 06/27/17 09:20 80 MG Docusate Sodium (coLACE CAP) 100 mg BID PRN PO 06/21/17 19:15 07/21/17 19:14 Fluoxetine HCl (Prozac Cap) 30 mg DAILY PO 06/22/17 09:00 07/22/17 08:59 06/27/17 09:19 30 MG Gabapentin (Neurontin Tab) 800 mg TID PO 06/21/17 21:00 07/21/17 20:59 06/27/17 13:47 800 MG Levothyroxine Sodium (Synthroid Tab) 350 mcg DAILYBB PO 06/22/17 06:00 07/22/17 05:59 06/27/17 06:28 350 MCG Glucose (Glucose 40% Gel) 15-30 GRAMS 15 GRAMS... UD PRN PO 06/21/17 19:15 07/21/17 19:14 Glucose (Glucose Chew Tab) 4-8 Tablets 4 Tabl... UD PRN PO 06/21/17 19:15 07/21/17 19:14 Dextrose (Dextrose 50% 50ML Syringe) 25-50ML OF 50% DW IV FOR... UD PRN IV 06/21/17 19:15 07/21/17 19:14 Glucagon (Glucagon Inj) 1 mg UD PRN SQ 06/21/17 19:15 07/21/17 19:14 Miscellaneous Information (Consult Glycemic Management Pharmacy) 1 ea UD PRN N/A 06/21/17 19:15 07/21/17 19:14 Insulin Aspart (novoLOG ASPART) SLIDING SCALE If C... AC SC 06/23/17 11:00 07/23/17 10:59 06/27/17 17:45 4 UNITS Insulin Aspart (novoLOG ASPART) SLIDING SCALE If C... HS SC 06/23/17 21:00 07/23/17 20:59 06/25/17 21:05 2 UNITS Oxycodone/ Acetaminophen (Percocet 5-325mg Tab) `1-2 tabs for pain 1 tab ... Q4H PRN PO 06/23/17 14:00 07/07/17 13:59 06/27/17 13:47 2 TAB Heparin Sodium (Porcine) (Heparin Sq 5000 Unit/0.5ml) 5,000 unit Q8 SQ 06/24/17 14:00 07/24/17 13:59 06/27/17 17:46 5,000 UNIT Levofloxacin (Levaquin Tab) 750 mg DAILY@11 PO 06/25/17 15:00 06/29/17 11:01 06/27/17 13:47 750 MG Doxycycline Hyclate (Vibramycin Cap) 100 mg BID PO 06/25/17 21:00 07/05/17 20:59 06/27/17 09:19 100 MG Insulin Glargine (Lantus Solostar Pen) 18 units PM SC 06/27/17 21:00 07/27/17 20:59 Sodium Chloride 1,000 ml @ 125 mls/hr Q8H IV 06/27/17 19:45 07/27/17 19:44
[2017-06-27] MEDS ORDERED: INSULIN GLARGINE SOLOSTAR 100 UNITS/ML 3 ML PEN SC SCH ×2 (21:00)
[2017-06-28] VITALS (8 sets, daily range): BP systolic 93–159; BP diastolic 52–83; PULSE 73–80; TEMP 36.3–36.6; O2SAT 95–99; Ht 182.9 cm; Wt 76.5 kg
[2017-06-28] MEDS: SODIUM CHLORIDE 0.9% 1000ML 1,000 ML IV SCH ×3 (03:52→17:31)
[2017-06-28] MEDS: LEVOTHYROXINE 175 MCG TAB PO SCH (05:55)
[2017-06-28] MEDS: HEPARIN SOD 5000 UNIT/0.5 ML CARP SQ SCH ×2 (05:56→13:44)
[2017-06-28] MEDS: OXYCODONE/ACETAMINOPHEN 5-325 TAB PO PRN ×2 (06:51→15:40)
[2017-06-28 07:26] LABS: BUN/CREATININE RATIO 14.7 (10-20); CALCIUM 8.7 mg/dl (8.5-10.1); CREATININE 1.22 mg/dl (0.60-1.40); POTASSIUM 3.9 mmol/L (3.5-5.1)
[2017-06-28] MEDS: FLUOXETINE HCL 10 MG CAP PO SCH (07:47)
[2017-06-28] MEDS: ASPIRIN 81 MG ECTAB PO SCH (07:47)
[2017-06-28] MEDS: GABAPENTIN 800 MG TAB PO SCH ×2 (07:47→13:43)
[2017-06-28] MEDS: ATORVASTATIN 40 MG TAB PO SCH (07:48)
[2017-06-28] MEDS: DOXYCYCLINE HYCLATE 100 MG CAP PO SCH (07:48)
[2017-06-28] MEDS: INSULIN ASPART 100 UNITS/ML 3 ML PEN SC SCH ×3 (08:47→17:26)
--- NOTE | 2017-06-28 09:33 | Pharmacy Progress Note ---
Pharmacy Glycemic Short Note 2 Date of Service Jun 28, 2017. OUTPATIENT ANTIDIABETIC REGIMEN: * Lantus 26 units qPM * Humulin R per sliding scale (usually 2-4 units) ASSESSMENT: * Mr. Fitch received 40 units of insulin yesterday with several hypoglycemic episodes over the past 24 hours * No changes to causes of insulin resistance/sensitivity * Changes made yesterday to insulin regimen: * Tightened CF from 45 -> 40 since he was running high * Lantus dose scheduled at 20 units instead of the sliding scale -> this was adjusted down to 18 units last night s/p hypoglycemic episode * Fasting BSG this AM severely low - 43 mg/dL * I'm somewhat surprised by this because he had received 20 units of Lantus on 06/25 and fasting BSGs were increasing?? * Changes to be made today based upon est TDD of 30 units PLAN FOR INPATIENT GLYCEMIC CONTROL: * Decrease Lantus to 15 units qHS * Loosen CR this AM to 15 until BSGs start to improve -> will then adjust back to 12 PLAN FOR DISCHARGE: * Needs meal coverage as an outpatient - would recommend to start with 2 units with each meal in addition to his Regular insulin sliding scale * Continue Lantus 26 units qPM
[2017-06-28] MEDS: LEVOFLOXACIN 750 MG TAB PO SCH (11:48)
--- NOTE | 2017-06-28 12:01 | Progress Note ---
Medicine Progress Note Date & Time of Visit: Jun 28, 2017 at 11:57. Subjective seen sitting up in bed, not in distress, comfortable states he felt less dizzy when standing this morning no chest pain, dyspnea pain on the surgical site improving denies other symptoms Objective Last 8 Hrs Date Time Temp Pulse Resp B/P (MAP) Pulse Ox O2 Delivery O2 Flow Rate FiO2 06/28/17 08:00 99 Room Air 06/28/17 08:00 36.5 73 16 124/75 (91) 99 Room Air 06/28/17 04:00 Room Air Physical Exam: General- oriented x 3, not in distress, speaks in sentences with no effort Lungs- clear breath sounds bilaterally, no rales, no wheezing Heart- regular rhythm; no murmur, normal rate Abdomen- normal bowel sounds, non distended, soft, nontender Extremities- no pretibial edema, no calf tenderness Neuro- alert, oriented x 3; no gross focal deficits Skin- warm & dry Laboratory Results: Last 24 Hours Test 06/27/17 16:31 06/27/17 16:52 06/27/17 20:18 06/28/17 05:59 Bedside Glucose 52 mg/dl 83 mg/dl 160 mg/dl 43 mg/dl Test 06/28/17 06:15 06/28/17 06:20 06/28/17 06:30 06/28/17 06:47 Bedside Glucose 49 mg/dl 63 mg/dl 143 mg/dl Sodium Level 138 mmol/L Potassium Level 3.9 mmol/L Chloride Level 104 mmol/L Carbon Dioxide Level 28 mmol/L Anion Gap 6.0 mmol/L Blood Urea Nitrogen 18 mg/dl Creatinine 1.22 mg/dl Est Creatinine Clear Calc Drug Dose 75.8 ml/min Estimated GFR () 78.0 Estimated GFR (Non- 67.3 BUN/Creatinine Ratio 14.7 Random Glucose 45 mg/dl Calcium Level 8.7 mg/dl Test 06/28/17 11:18 Bedside Glucose 315 mg/dl Assessment & Plan 52 male with history of DM 1, HTN, Hypothyroidism, other problems noted below presenting with dizziness. DIZZINESS, SECONDARY TO ORTHOSTASIS - Lisinopril held again yesterday for hypotension - resumed IV fluids - chronic buttock abscess s/p I&D continue Levaquin, Doxycycline - from DM autonomic neuropathy? compression stockings Cosyntropin test: negative - repeat Ortho VS today - Cardiology consulted RIGHT BUTTOCK ABSCESS - s/p I&D of the buttock abscess appreciate Dr. Jenkins's recommendations - Culture of drainage: Coag Neg staph - Vanco + Zosyn ordered x 2 days --> changed to Doxy + Levaquin Day 3 healing well needs to be monitored closely HYPONATREMIA - appears hypovolemic IV NSS - Na improved to 144 HYPOTHYROIDISM - increased L thyroxine to 350mcg daily repeat TFT in 4 weeks DM 1, Uncontrolled - A1C 11 - pharmacy consulted noted to have hypoglycemic episodes Brittle Diabetes - when discharged, Pharmacy recommends increase Humalog R 2 units with meals , maintain usual lantus dose HTN (+) orthostasis hold Lisinopril DVT proph Heparin SC Disposition pending anticipate d/c back to [facility] when medically stable Current Inpatient Medications: Current Inpatient Medications Medications (Trade) Dose Ordered Sig/Radha Route Start Time Stop Time Status Last Admin Dose Admin Miscellaneous (Iv Fluids Completed) 1 ea PRN PRN N/A 06/21/17 16:30 06/21/18 16:29 Acetaminophen (Tylenol Tab) 650 mg Q4H PRN PO 06/21/17 16:45 07/21/17 16:44 Aspirin (Ecotrin Tab) 81 mg DAILY PO 06/22/17 09:00 07/22/17 08:59 06/28/17 07:47 81 MG Atorvastatin Calcium (Lipitor Tab) 80 mg DAILY PO 06/22/17 09:00 07/22/17 08:59 06/28/17 07:48 80 MG Docusate Sodium (coLACE CAP) 100 mg BID PRN PO 06/21/17 19:15 07/21/17 19:14 Fluoxetine HCl (Prozac Cap) 30 mg DAILY PO 06/22/17 09:00 07/22/17 08:59 06/28/17 07:47 30 MG Gabapentin (Neurontin Tab) 800 mg TID PO 06/21/17 21:00 07/21/17 20:59 06/28/17 07:47 800 MG Levothyroxine Sodium (Synthroid Tab) 350 mcg DAILYBB PO 06/22/17 06:00 07/22/17 05:59 06/28/17 05:55 350 MCG Glucose (Glucose 40% Gel) 15-30 GRAMS 15 GRAMS... UD PRN PO 06/21/17 19:15 07/21/17 19:14 Glucose (Glucose Chew Tab) 4-8 Tablets 4 Tabl... UD PRN PO 06/21/17 19:15 07/21/17 19:14 Dextrose (Dextrose 50% 50ML Syringe) 25-50ML OF 50% DW IV FOR... UD PRN IV 06/21/17 19:15 07/21/17 19:14 Glucagon (Glucagon Inj) 1 mg UD PRN SQ 06/21/17 19:15 07/21/17 19:14 Miscellaneous Information (Consult Glycemic Management Pharmacy) 1 ea UD PRN N/A 06/21/17 19:15 07/21/17 19:14 Insulin Aspart (novoLOG ASPART) SLIDING SCALE If C... AC SC 06/23/17 11:00 07/23/17 10:59 06/28/17 11:47 9 UNITS Insulin Aspart (novoLOG ASPART) SLIDING SCALE If C... HS SC 06/23/17 21:00 07/23/17 20:59 06/27/17 20:38 1 UNITS Oxycodone/ Acetaminophen (Percocet 5-325mg Tab) `1-2 tabs for pain 1 tab ... Q4H PRN PO 06/23/17 14:00 07/07/17 13:59 06/28/17 06:51 2 TAB Heparin Sodium (Porcine) (Heparin Sq 5000 Unit/0.5ml) 5,000 unit Q8 SQ 06/24/17 14:00 07/24/17 13:59 06/28/17 05:56 5,000 UNIT Levofloxacin (Levaquin Tab) 750 mg DAILY@11 PO 06/25/17 15:00 06/29/17 11:01 06/28/17 11:48 750 MG Doxycycline Hyclate (Vibramycin Cap) 100 mg BID PO 06/25/17 21:00 07/05/17 20:59 06/28/17 07:48 100 MG Sodium Chloride 1,000 ml @ 125 mls/hr Q8H IV 06/27/17 19:45 07/27/17 19:44 06/28/17 11:49 125 MLS/HR Insulin Glargine (Lantus Solostar Pen) 15 units PM SC 06/28/17 21:00 07/28/17 20:59
--- NOTE | 2017-06-28 14:29 | Cardiology Consultation ---
Cardiology Consultation History of Present Illness Patient is a 52 year old male prisoner with history of hypertension, hypothyroidism with significantly elevated TSH at 52, history of Graves disease , history of orthostatic hypotension per review of prior [place] records requiring multiple hospitalizations and ER visits for syncope and near syncope with injury. Patient was initially admitted for a gluteal abscess. He underwent I&D. The following day the patient developed worsening dizziness with positional changes. No syncope during hospitalization. He has orthostatic blood pressure readings on vital signs. Lisinopril was placed on hold. He has been treated with IV fluids. He was ordered to have compression stockings but patient removed these. Patient denies a history of cardiovascular disease. He denies prior MS, CHF, arrhythmias. Denies prior cardiovascular testing. He does state his father and grandfather is a all had Cardiovascular issues including CABG and carotid vascular disease. At time of consult patient resting in bed comfortably. He denies dizziness while sitting. Symptoms occur only when standing up too quickly. He admits this occurs frequently while in his [facility] cell. last true syncopal event occurred approximately 6 months ago and required stable secondary to head laceration. he denies exertional chest pain or shortness of breath. no sense of palpitations or tachy palpitations. No orthopnea, PND or edema. No arrhythmias on telemetry (Karen Alegre PA-C) Past Medical/Surgical History Problem List: Medical Problems: (1) Anemia (2) Depression (3) Diabetes mellitus type I (4) Dyslipidemia (5) Eczema (6) Hypothyroidism (7) Neuropathy (8) Pneumonia 9. Orthostatic hypotension 10. Graves disease (Karen Alegre PA-C) Family History Diabetes mellitus Heart disease (Karen Alegre PA-C) Diabetes mellitus Heart disease (Ramón Urban DO) Social History Smoking Status: Current Every Day Smoker Drug Use: none Marital Status: single Housing Status: other Occupation: unemployed (Karen Alegre PA-C) Review Of Systems See HPI for pertinent positives. All other 10 point review of systems is negative (Karen Alegre PA-C) Allergies Coded Allergies: NO KNOWN DRUG ALLERGIES (Verified Allergy, Unknown, NONE, 06/21/17) Medications Reported Home Medications Medications Dose Route/Sig Max Daily Dose Days Date Category Dose Instructions Glucose (Dextrose (Diabetic Use)) 4 Gm Chw 2 Tab PO QID 06/21/17 Reported Prozac (Fluoxetine HCl) 10 Mg Cap 3 Cap PO DAILY 06/21/17 Reported *CRUSH* Humulin R (Insulin Human Regular) 100 Units/Ml Susp SQ TID 11/14/16 Reported BSG 200-300 INJECT 2 UNITS 301-400 INJECT 3 UNITS 401-500 INJECT 4 UNITS >500 CALL Glucophage (Metformin Hcl) 1,000 Mg Tab 1,000 Mg PO BID 11/14/16 Reported Levothyroxine Sodium 300 Mcg Tab 300 Mcg PO DAILY 11/14/16 Reported Lisinopril 2.5 Mg Tab 2.5 Mg PO DAILY 11/14/16 Reported Colace (Docusate Sodium) 100 Mg Cap 100 Mg PO BID PRN 11/14/16 Reported Lantus (Insulin Glargine) 100 Unit/Ml Inj 26 Units SC QPM 04/28/16 Reported Neurontin (Gabapentin) 800 Mg Tab 800 Mg PO TID 01/12/16 Reported Lipitor (Atorvastatin Calcium) 80 Mg Tab 80 Mg PO DAILY 01/12/16 Reported Aspirin Ec (Aspirin) 81 Mg Tab 81 Mg PO DAILY 01/12/16 Reported (Karen Alegre, PAAshley) Physical Exam Vital Signs (Last 8hrs): Last 8 Hrs Date Time Temp Pulse Resp B/P (MAP) Pulse Ox O2 Delivery O2 Flow Rate FiO2 06/28/17 12:00 99 Room Air 06/28/17 11:56 36.3 73 16 159/82 (107) 98 Room Air 144/76 (98) 101/64 (76) 06/28/17 08:00 99 Room Air 06/28/17 08:00 36.5 73 16 124/75 (91) 99 Room Air General Appearance: Alert and Oriented x3. NAD. Head: Normocephalic Atraumatic. Eyes: PERRLA, EOMI, conjunctiva and sclera clear Neck: Supple. No carotid bruits noted. No JVD. No HJD. Respiratory: Breath sounds clear to auscultation bilaterally. No w/r/r. Cardiovascular: Reg rate and rhythm. S1 and S2 noted. No murmurs, rubs, gallops. PMI non displace. Abdomen: Normal bowel sounds, soft nontender. no abdominal bruits. Extremities: No edema, no clubbing or cyanosis. distal pulses 2/4 bilaterally. Neuro: No focal deficits. Psychiatric: Normal affect. (Karen Alegre PA-C) Data Last 24 Hours Test 06/27/17 16:31 06/27/17 16:52 06/27/17 20:18 06/28/17 05:59 Bedside Glucose 52 mg/dl 83 mg/dl 160 mg/dl 43 mg/dl Test 06/28/17 06:15 06/28/17 06:20 06/28/17 06:30 06/28/17 06:47 Bedside Glucose 49 mg/dl 63 mg/dl 143 mg/dl Sodium Level 138 mmol/L Potassium Level 3.9 mmol/L Chloride Level 104 mmol/L Carbon Dioxide Level 28 mmol/L Anion Gap 6.0 mmol/L Blood Urea Nitrogen 18 mg/dl Creatinine 1.22 mg/dl Est Creatinine Clear Calc Drug Dose 75.8 ml/min Estimated GFR () 78.0 Estimated GFR (Non- 67.3 BUN/Creatinine Ratio 14.7 Random Glucose 45 mg/dl Calcium Level 8.7 mg/dl Test 06/28/17 11:18 Bedside Glucose 315 mg/dl Imaging: Chest xray on admission: IMPRESSION: Chronic and emphysematous change. No acute process. EKG: NSR, normal EKG. No ischemic changes. Telemetry reviewed: NSR with rare PVC. No arrhythmias (Karen Alegre PA-C) Assessment & Plan 1. Orthostatic hypotension with history of intermittent syncope/near syncope 2. Hypothyroidism, elevated TSH noted. 3. Gluteal abscess 4, Family history of cardiovascular disease 5. Hypertension 6. Chronic tobacco abuse PLAN: Titrate levothyroxine, dose adjusted this admission. Update 2D echo to r/o structural heart disease carotid duplex given history of tobacco abuse and syncope. If within normal limits, no further cardiac testing warranted. Recommend JARRELL hose, increase fluid intake, liberalize salt intake, and change positions slowly. Case discussed with Dr. Urban (Karen Alegre PA-C) Cardiology attending physician: Patient seen and examined at the bedside. Reports long history of orthostatic hypotension, syncope, and near syncope. Patient reports significant lightheadedness which can be sporadic but typically occurs when he is standing. He was initially admitted to the hospital for abscess I&D. Orthostatic blood pressures documented. He is also found to be hypothyroid. Levothyroxine has been titrated. Compression stockings were ordered, however, patient remove these yesterday. Denies chest pain or shortness of breath. No dysrhythmias on telemetry. PE: VSS with orthostatic blood pressure changes. General: NAD, awake and alert. Heart: Regular, normal S1-S2, no murmur, rub, gallop. Lungs: Clear bilateral, no rales, rhonchi, or wheeze. Extremities: No edema. A/P: Agree with above PA-C history, physical exam, assessment and plan. Conservative treatment of orthostatic hypotension discussed at length including compression stockings, liberalizing sodium intake, avoiding injury by lowering himself to the ground or sitting with prodromal symptoms, as well as used of isometric contraction exercises. Continue IV hydration with normal saline. Consider addition of Florinef in the future if conservative measures ineffective and patient is euthyroid. Resting 2-D transthoracic echo will be performed to exclude presence of structural heart disease. Thank you for allow me to participate in the care of your patient. Ariel Urban DO, FACC (Ramón Urban DO)
--- NOTE | 2017-06-28 15:08 | DIAGNOSTIC IMAGING REPORT ---
CAROTID DOPPLER NECK ART HISTORY: Mental status change syncope; dizziness COMPARISON: None. TECHNIQUE: Real-time, grayscale, and color Doppler sonography of the carotid arteries was performed. Imaging reviewed in the transverse and longitudinal planes. All measurements were calculated based on NASCET criteria. FINDINGS: Antegrade flow is seen in the bilateral vertebral arteries. The brachial pressures are hemodynamically similar. Mild plaque formation bilaterally The peak systolic velocity within the right ICA is 71. The right systolic ratio is 0.8. The peak systolic velocity within the left ICA is 73. The left systolic ratio is 0.8. IMPRESSION: No hemodynamically significant stenosis seen within the carotid arteries. Minimal plaque formation bilaterally The above report was generated using voice recognition software. It may contain grammatical, syntax or spelling errors. Electronically signed by: Miguel Connolly M.D. 06/28/2017 3:07 PM Dictated Date/Time: 06/28/2017 3:06 PM
--- NOTE | 2017-06-28 16:06 | ECHOCARDIOGRAM REPORT ---
*NOTICE TO RECEIVING LIBERTARIAN AGENCY This information is strictly Confidential and protected under [place] law. [place] law prohibits you from making any further disclosure of this information unless further disclosure is expressly permitted by the written consent of the person to whom it pertains or is authorized by law. A general authorization for the release of medical or other information is not sufficient for this purpose. Hospital accepts no responsibility if the information is made available to any other person, INCLUDING THE PATIENT. Interpretation Summary * Name: MARIELA ROSE [id number] Study Date: 06/28/2017 12:15 PM BP: 124/75 mmHg * Patient Location: .2T\S\S235\S\1 HR: 73 * : 1965 (M/d/yyyy) Gender: Male Height: 72 in * Age: 52 yrs Ethnicity: CA Weight: 168 lb * Ordering Physician: Karen Alegre * Referring Physician: Deniz ESQUIVEL * Performed By: Alejandra Gutierrez RDCS * * Reason For Study: Syncope * BSA: 2.0 m2 * The study was technically adequate. * -- Conclusions -- * Ejection Fraction = 60-65%. * Pulse wave TDI of the anterior and posterior mitral annulas demonstrates normal LV relaxation * No significant valvular disease. Procedure Details * A complete two-dimensional transthoracic echocardiogram was performed (2D, M-mode, Doppler and color flow Doppler). Left Ventricle * The left ventricle is normal in size. * There is no thrombus. * There is normal left ventricular wall thickness. * Ejection Fraction = 60-65%. * Left ventricular systolic function is normal. * The left ventricular wall motion is normal. Right Ventricle * The right ventricle is normal size. * The right ventricular systolic function is normal as assessed by tricuspid annular plane systolic excursion (TAPSE) (normal >1.5 cm). Atria * The left atrial size is normal. * Right atrial size is normal. * There is no evidence of atrial septal defect, but resolution does not allow assessment for a patent foramen ovale. Mitral Valve * The mitral valve is normal. * There is no mitral valve stenosis. * Significant mitral regurgitation is absent. Tricuspid Valve * The tricuspid valve is normal. * There is no tricuspid stenosis. * Significant tricuspid regurgitation is absent. Aortic Valve * The aortic valve is trileaflet. * Aortic stenosis is absent. * There is no significant aortic regurgitation. Pulmonic Valve * The pulmonary valve is not well seen, but the Doppler examination is normal without significant regurgitation or stenosis. * There is no pulmonic valvular stenosis. * Trace pulmonic valvular regurgitation. Great Vessels * The aortic root and proximal ascending aorta are normal sized. Pericardium/Pleural * There is no pericardial effusion. Great Vessels * Normal inferior vena cava diameter and respiratory variation suggests normal central venous pressure. Left Ventricular Diastolic Function * Pulse wave TDI of the anterior and posterior mitral annulas demonstrates normal LV relaxation MMode 2D Measurements and Calculations IVSd 1.1 cm LVIDd 4.5 cm LVIDs 3.1 cm LVPWd 1.1 cm IVS/LVPW 0.95 FS 32.3 % EDV(Teich) 94.7 ml ESV(Teich) 37.3 ml EF(Teich) 60.7 % EDV(cubed) 94.0 ml ESV(cubed) 29.1 ml EF(cubed) 69.0 % LV mass(C)d 178.7 grams LV mass(C)dI 90.3 grams/m\S\2 SV(Teich) 57.5 ml SI(Teich) 29.0 ml/m\S\2 SV(cubed) 64.8 ml SI(cubed) 32.8 ml/m\S\2 Ao root diam 3.2 cm Ao root area 8.1 cm\S\2 ACS 1.7 cm LA dimension 3.9 cm asc Aorta Diam 2.6 cm LA/Ao 1.2 LVOT diam 2.0 cm LVOT area 3.1 cm\S\2 LVAd ap4 28.2 cm\S\2 LVLd ap4 8.3 cm EDV(MOD-sp4) 80.9 ml EDV(sp4-el) 81.2 ml LVAs ap4 16.0 cm\S\2 LVLs ap4 7.6 cm ESV(MOD-sp4) 32.6 ml ESV(sp4-el) 28.5 ml EF(MOD-sp4) 59.7 % EF(sp4-el) 64.9 % LVAd ap2 25.2 cm\S\2 LVLd ap2 8.0 cm EDV(MOD-sp2) 72.1 ml EDV(sp2-el) 67.6 ml LVAs ap2 13.7 cm\S\2 LVLs ap2 6.8 cm ESV(MOD-sp2) 26.1 ml ESV(sp2-el) 23.2 ml EF(MOD-sp2) 63.9 % EF(sp2-el) 65.6 % LVLd %diff -3.76 % EDV(MOD-bp) 77.3 ml LVLs %diff -11.77 % ESV(MOD-bp) 29.9 ml EF(MOD-bp) 61.3 % SV(MOD-sp4) 48.3 ml SI(MOD-sp4) 24.4 ml/m\S\2 SV(MOD-sp2) 46.0 ml SI(MOD-sp2) 23.3 ml/m\S\2 SV(MOD-bp) 47.3 ml SI(MOD-bp) 23.9 ml/m\S\2 SV(sp4-el) 52.7 ml SI(sp4-el) 26.6 ml/m\S\2 SV(sp2-el) 44.3 ml SI(sp2-el) 22.4 ml/m\S\2 Doppler Measurements and Calculations MV E max mitul 74.4 cm/sec MV A max mitul 65.8 cm/sec MV E/A 1.1 MV dec time 0.24 sec Ao V2 max 118.9 cm/sec Ao max PG 5.7 mmHg Ao max PG (full) 2.6 mmHg TRACEY(V,A) 2.3 cm\S\2 TRACEY(V,D) 2.3 cm\S\2 LV V1 max PG 3.1 mmHg LV V1 max 87.9 cm/sec PA V2 max 102.7 cm/sec PA max PG 4.2 mmHg PA acc slope 511.0 cm/sec\S\2 PA acc time 0.14 sec PI max mitul 157.3 cm/sec PI max PG 9.9 mmHg PI dec slope 194.1 cm/sec\S\2 PI P1/2t 237.3 msec TR max mitul 94.9 cm/sec PA pr(Accel) 14.4 mmHg
[2017-06-28] MEDS ORDERED: DXY100 PO (18:46)
[2017-06-28] MEDS ORDERED: LVQ750 PO (18:46)
--- NOTE | 2017-06-28 18:51 | Discharge Instructions ---
Discharge Instructions Date of Service Jun 28, 2017. Admission Reason for Admission: Hypotension Discharge Discharge Diagnosis / Problem: ORTHOSTATIC HYPOTENSION Discharge Goals Goal(s): Diagnostic testing, Therapeutic intervention Activity Recommendations Activity Level: Ambulates in room (FALL PRECAUTIONS PLEASE) . Additional Information Patient informed of condition: Yes Advance Directives: No (UNKNOWN) DNR: No Level of Care: Other (CORRECTIONAL FACILITY) Communicable Disease: No Prognosis: Improving Instructions / Follow-Up Instructions / Follow-Up MONITOR ORTHOSTATIC VITAL SIGNS AT LEAST DAILY. MONITOR BLOOD GLUCOSE AC AND HS. USE COMPRESSION STOCKINGS ALL THE TIME. LIBERALIZE SALT INTAKE. PLEASE REFER TO ACCOMPANYING HOSPITAL DISCHARGE SUMMARY FOR FURTHER DETAILS. Current Hospital Diet Patient's current hospital diet: Diabetes Type 2 Diet Discharge Diet Recommended Diet: Diabetes Type 2 Diet Procedures Procedures Performed: INCISION AND DRAINAGE OF RIGHT BUTTOCK ABSCESS,CT SCAN OF THE PELVIS, ECHOCARDIOGRAM, CAROTID US Pending Studies Studies pending at discharge: no Laboratory Results Hemoglobin A1c Test 06/22/17 06:02 Range/Units Estimated Average Glucose 289 mg/dl Hemoglobin A1c 11.7 H 4.5-5.6 % Medical Emergencies . Who to Call and When: Medical Emergencies: If at any time you feel your situation is an emergency, please call 911 immediately. . Non-Emergent Contact Non-Emergency issues call your: Primary Care Provider Call Non-Emergent contact if: you have a fever, your pain is not controlled, your pain is worsening, wound has increased drainage, wound has increased redness, wound has increased pain, you have any medication questions . . "Provider Documentation" section prepared by Greg Carey. . Core Measure Problem Core Measures: None
[2017-06-28] MEDS ORDERED: SYN50 PO (19:05)
--- NOTE | 2017-06-28 19:07 | Discharge Summary ---
Discharge Summary Date of Service Jun 28, 2017. Discharge Summary Admission Date: 06/21/17 Discharge Date: Jun 28, 2017 Discharge Disposition: Home Principal Diagnosis: DIZZINESS, SECONDARY TO ORTHOSTASIS Secondary Diagnoses/Problems: Please refer to hospital course below. Procedures: INCISION AND DRAINAGE RIGHT BUTTOCK ABSCESS 06/23/17 CHEST ONE VIEW PORTABLE CLINICAL HISTORY: / Hypertension. Dyspnea. COMPARISON STUDY: 12/09/2016 FINDINGS: Emphysematous change. Nodular density previously described in the right upper lung appear to represent overlap artifact with the anterior right first rib. No focal infiltrate. Minimal apical pleural reactive change considered chronic. IMPRESSION: Chronic and emphysematous change. No acute process. PELVIS W/IV CONT ONLY (CT) CLINICAL HISTORY: 52 years-old Male presenting with right fluctuant mass, concern for abscess. TECHNIQUE: Multidetector CT of the pelvis was performed after the administration of intravenous contrast. IV contrast: Optiray 320. A dose lowering technique was used consistent with the principles of ALARA (as low as reasonably achievable). COMPARISON: None. CT DOSE (mGy.cm): The estimated cumulative dose is 519.57 mGycm. 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 Bladder: Mild circumferential bladder wall thickening. Pelvic organs: Prostate and seminal vesicles normal. Bowel: Rectal wall thickening and infiltration of the mesorectal fascia. Wall thickening extends to the level of the anorectal junction distally. The sigmoid colon does not appear to be involved. Mild stool burden. No bowel obstruction. Peritoneal cavity: Trace free fluid in the pelvis. No free intraperitoneal gas. Lymph nodes: Scattered subcentimeter bilateral iliac and inguinal lymph nodes, likely reactive. Vasculature: Atherosclerosis of the bilateral iliac arteries. Abdominal wall: Extensive inflammatory change with multiple small rim-enhancing fluid collections along the right medial gluteal cleft. The largest collection measures 2.3 x 1.2 x 1.6 centimeters. Multiple smaller collections are noted. Reactive inflammatory changes of the adjacent medial aspect of the right gluteus teddy. Inflammatory change does not appear to extend to or emanating from the rectum or anus allowing for limitations of CT. A fistulous connection to the overlying cutis is difficult to exclude. Minimal inflammatory changes noted along the left medial gluteal cleft. Musculoskeletal: Degenerative change of the lower lumbar spine. IMPRESSION: 1. Multiple small abscesses along the right medial gluteal cleft. Though the overall region of involvement is larger, the largest single collection measures 2.3 x 1.2 x 1.6 cm. Inflammatory changes not appear to emanate from the anus or rectum allowing for limitations of CT. Reactive changes of the adjacent musculature. Correlate clinically to exclude a fistulous connection to the overlying cutis of the right medial gluteal cleft. 2. Mild rectal wall thickening with surrounding inflammatory change suggests proctitis. Electronically signed by: Castro Ocasio M.D. 06/23/2017 6:50 AM CAROTID DOPPLER NECK ART No hemodynamically significant stenosis seen within the carotid arteries. Minimal plaque formation bilaterally ECHO Interpretation Summary * -- Conclusions -- * Ejection Fraction = 60-65%. * Pulse wave TDI of the anterior and posterior mitral annulas demonstrates normal LV relaxation * No significant valvular disease. 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 MONITOR BLOOD GLUCOSE AC AND HS. USE COMPRESSION STOCKINGS ALL THE TIME. LIBERALIZE SALT INTAKE. PLEASE REFER TO HOSPITAL COURSE BELOW FOR FURTHER DETAILS. Medication Reconciliation New Medications: Doxycycline Hyclate (Doxycycline Hyclate) 100 Mg Cap 100 MG PO BID for 2 Days, #4 CAP 0 Refills Levofloxacin (Levofloxacin) 750 Mg Tab 750 MG PO DAILY@11 for 2 Days, #2 TAB 0 Refills Continued Medications: Aspirin (Aspirin Ec) 81 Mg Tab 81 MG PO DAILY Atorvastatin (Lipitor) 80 Mg Tab 80 MG PO DAILY, TAB Docusate Sodium (Colace) 100 Mg Cap 100 MG PO BID PRN for Constipation Fluoxetine (Prozac) 10 Mg Cap 3 CAP PO DAILY, CAP *CRUSH* Gabapentin (Neurontin) 800 Mg Tab 800 MG PO TID for PRN, TAB Insulin Glargine (Lantus) 100 Unit/Ml Inj 26 UNITS SC QPM Insulin Human Regular (Humulin R) 100 Units/Ml Susp SQ TID BSG 200-300 INJECT 2 UNITS 301-400 INJECT 3 UNITS 401-500 INJECT 4 UNITS >500 CALL Levothyroxine Sodium (Levothyroxine Sodium) 300 Mcg Tab 300 MCG PO DAILY Metformin Hcl (Glucophage) 1,000 Mg Tab 1000 MG PO BID, TAB Discontinued Medications: Dextrose (Diabetic Use) (Glucose) 4 Gm Chw 2 TAB PO QID Lisinopril (Lisinopril) 2.5 Mg Tab 2.5 MG PO DAILY Admission Information HPI (per Admitting provider): 52 male with history of DM 1, HTN, Hypothyroidism, other problems noted below presenting with dizziness. Patient reports dizziness/lightheadedness for the past few weeks, worsening the past few days. Denies diarrhea, vomiting, poor intake. Thus was brought to the ER. Found to be (+) orthostasis, given IV bolus. TSH high, T4 low. On exam, patient seen resting in bed, comfortable. States he already feels improved. Denies chest pain, dyspnea, palpitations. Denies confusion, constipation, but does feel cold easily. Denies other symptoms. Physical Exam (per Admitting): General Appearance: WD/WN, no apparent distress Head: normocephalic, atraumatic Eyes: normal inspection, PERRL, EOMI, sclerae normal ENT: normal ENT inspection, hearing grossly normal, pharynx normal Neck: supple, no adenopathy, thyroid normal, no JVD, trachea midline Respiratory/Chest: chest non-tender, lungs clear, normal breath sounds, no respiratory distress, no accessory muscle use Cardiovascular: regular rate, rhythm, no edema, no JVD, no murmur, normal peripheral pulses Abdomen/GI: normal bowel sounds, non tender, soft, no organomegaly Back: normal inspection, no CVA tenderness Extremities/Musculoskelatal: normal inspection, no calf tenderness, no pedal edema, normal range of motion, non-tender Neurologic/Psych: 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 * Pulse wave TDI of the anterior and posterior mitral annulas demonstrates normal LV relaxation * No significant valvular disease. Carotid Doppler: unrevealing Cosyntropin test: negative recommend compression stockings, liberalize salt intake, patient instructed not to move too quickly, lower and sit if dizzy consider Florinef if not improving - Orthostatic VS has improved patient states dizziness much better RIGHT BUTTOCK ABSCESS - full CT report in the Procedure section above - s/p I&D of the buttock abscess 06/23/[address] Jenkins - Culture of drainage: Coag Neg staph - Vanco + Zosyn ordered x 2 days --> changed to Doxy + Levaquin Day 4 healing well needs to be monitored closely - continue 2 more days of Doxycycline + Levaquin monitor HYPONATREMIA - hypovolemic IV NSS - Na improved to 144 HYPOTHYROIDISM - increased L thyroxine frmo 300 to 350mcg daily repeat Thyroid Function test in 4 weeks - make sure patient takes Levothyroxine by itself in early AM DM 1, Uncontrolled - A1C 11 - pharmacy consulted noted to have hypoglycemic episodes Brittle Diabetes - when discharged, Pharmacy recommends increase Humalog R 2 units with meals , maintain usual lantus dose monitor closely HTN (+) orthostasis hold Lisinopril monitor BP daily DVT proph Heparin SC given Disposition d/c back to [facility] Total time spent on discharge = 45 minutes This includes examination of the patient, discharge planning, medication reconciliation, and communication with other providers. Discharge Instructions Discharge Instructions Date of Service Jun 28, 2017. Admission Reason for Admission: Hypotension Discharge Discharge Diagnosis / Problem: ORTHOSTATIC HYPOTENSION Discharge Goals Goal(s): Diagnostic testing, Therapeutic intervention Activity Recommendations Activity Level: Ambulates in room (FALL PRECAUTIONS PLEASE) . Additional Information Patient informed of condition: Yes Advance Directives: No (UNKNOWN) DNR: No Level of Care: Other (CORRECTIONAL FACILITY) Communicable Disease: No Prognosis: Improving Instructions / Follow-Up Instructions / Follow-Up MONITOR ORTHOSTATIC VITAL SIGNS AT LEAST DAILY. MONITOR BLOOD GLUCOSE AC AND HS. USE COMPRESSION STOCKINGS ALL THE TIME. LIBERALIZE SALT INTAKE. PLEASE REFER TO ACCOMPANYING HOSPITAL DISCHARGE SUMMARY FOR FURTHER DETAILS. Current Hospital Diet Patient's current hospital diet: Diabetes Type 2 Diet Discharge Diet Recommended Diet: Diabetes Type 2 Diet Procedures Procedures Performed: INCISION AND DRAINAGE OF RIGHT BUTTOCK ABSCESS,CT SCAN OF THE PELVIS, ECHOCARDIOGRAM, CAROTID US Pending Studies Studies pending at discharge: no Laboratory Results Hemoglobin A1c Test 06/22/17 06:02 Range/Units Estimated Average Glucose 289 mg/dl Hemoglobin A1c 11.7 H 4.5-5.6 % Medical Emergencies . Who to Call and When: Medical Emergencies: If at any time you feel your situation is an emergency, please call 911 immediately. . Non-Emergent Contact Non-Emergency issues call your: Primary Care Provider Call Non-Emergent contact if: you have a fever, your pain is not controlled, your pain is worsening, wound has increased drainage, wound has increased redness, wound has increased pain, you have any medication questions . . "Provider Documentation" section prepared by Greg Carey. . Core Measure Problem Core Measures: None
[2017-06-28] MEDS ORDERED: INSULIN GLARGINE SOLOSTAR 100 UNITS/ML 3 ML PEN SC SCH (21:00)
== END 2017-06-28 19:45 | disposition home or self-care (01) | DRG 312 ==
LOC: EDBD 12:42 → C.EDA 12:43 → C.2T 15:22 → ENRESERV 15:30 → OBSVTOIN 06-27 20:30
PROVIDERS: ADMIT Internal Medicine; ATTEND Internal Medicine
PROC: 0Y900ZZ Drainage of Right Buttock, Open Approach (ICD-10-PCS; principal; 2017-06-23)
DX: I95.1 Orthostatic hypotension (principal); E87.1 Hypo-osmolality and hyponatremia; F32.9 Major depressive disorder, single episode, unspecified; E78.5 Hyperlipidemia, unspecified; E03.9 Hypothyroidism, unspecified; F17.200 Nicotine dependence, unspecified, uncomplicated; E10.40 Type 1 diabetes mellitus with diabetic neuropathy, unspecified; Z87.01 Personal history of pneumonia (recurrent); Z79.82 Long term (current) use of aspirin; Z79.4 Long term (current) use of insulin; Z83.3 Family history of diabetes mellitus; Z82.49 Family history of ischemic heart disease and other diseases of the circulatory system

== ENCOUNTER 2020-05-22 17:36 | Inpatient (IN) ==
--- NOTE | 2020-05-22 18:51 | Emergency Department Note ---
History of Present Illness General Chief complaint: Fever Time Seen by Provider: 05/22/20 18:17 Source: patient Mode of arrival: other (wheelchair, snf guards) Limitations: no limitations History of Present Illness Provider complaint: hypoxia, fever Onset (ago): day(s) 2 Current Pain Intensity: 0 Associated symptoms: + cough, + fever/chills and + loss of appetite; no weakness Treatments prior to arrival: none This is a 55-year-old male who presents from the snf after being found to be hypoxic on a pulse ox check at the [facility]. Patient denies any shortness of breath or cough. Patient states he did have a fever yesterday, but this did improve with Tylenol. Patient denies chest pain, abdominal pain, nausea, vomiting, diarrhea, trouble urinating, leg swelling, rash, headaches, dizziness. Patient states his cellmate has been sick, although he was tested for coronavirus himself a couple of days ago and was negative. Patient states his blood sugar readings have been elevated in the 200s and 300s, even though he had poor p.o. intake today. Patient states he has previously been admitted with DKA. Patient states he was a smoker and was recently told he did have underlying COPD. He does not wear oxygen, nor does he use any MDIs or nebulizer treatments. Pt did have recent COVID test and was negative. Pt seen during a time of high acuity and national emergency pandemic while wearing PPE. Home Medications Home Medications Medication Instructions Recorded Confirmed Type Lantus U-100 Insulin 8 unit SUBCUT HS 05/09/18 05/22/20 History aspirin [Aspir-81] 81 mg PO DAILY 05/09/18 05/22/20 History atorvastatin 80 mg PO HS 05/09/18 05/22/20 History B complex 63-cadwd-U-biot-zinc 1 tab PO DAILY 05/22/20 05/22/20 History [Dialyvite] alendronate [Fosamax] 70 mg PO TU 05/22/20 05/22/20 History fludrocortisone 0.3 mg PO DAILY 05/22/20 05/22/20 History fluoxetine [Prozac] 40 mg PO DAILY 05/22/20 05/22/20 History gabapentin 600 mg PO QID 05/22/20 05/22/20 History insulin glargine [Lantus U-100 15 unit SUBCUT QAM 05/22/20 05/22/20 History Insulin] insulin regular human [Novolin R 1 sliding scale dose SUBCUT 05/22/20 05/22/20 History Regular U-100 Insuln] USEASDIRECTD levalbuterol tartrate [Xopenex HFA] 2 inh INHALATION QID 05/22/20 05/22/20 History levothyroxine 137 mcg PO DAILY 05/22/20 05/22/20 History lisinopril 2.5 mg PO DAILY 05/22/20 05/22/20 History ondansetron 4 mg PO Q6H PRN 05/22/20 05/22/20 History vitamin E 1,000 unit PO DAILY 05/22/20 05/22/20 History Allergies Allergy/AdvReac Type Severity Reaction Status Date / Time No Known Drug Allergies Allergy Unknown NONE Verified 05/22/20 20:27 Past Med/Surg History Medical History Diabetes mellitus type 1 NSTEMI (non-ST elevated myocardial infarction) Family History Other No pertinent family history Social History Smoking Status: Never smoker Hx Alcohol Use: No Hx Substance Use: No Preferred Language: Stateless Communication Ability: Effective Visual Impairment: No Limitations Beliefs That Will Affect Care: None Current Living Situation: Other Current Living Situation Comment: [facility] Other Information That Helps Us Care for You: No Feels Safe at Home: Yes Safety Concerns: Feels Safe At This Time Assistive Devices: None Review of Systems See HPI for pertinent positives & negatives. and A total of 10 systems reviewed and were otherwise negative Physical Exam Vital Signs Vital Signs - 24 hr 05/22/20 21:10 05/22/20 22:07 05/22/20 22:50 Pulse Rate [Right Finger] 76 74 74 Pulse Rhythm [Right Finger] Regular Pulse Strength [Right Finger] Normal Respiratory Rate 20 19 19 Respiratory Effort / Characteristics Non-Labored Blood Pressure [Right Arm] 158/101 H 149/87 H 146/84 H Blood Pressure Mean [Right Arm] 120 107 104 Pulse Oximetry 96 94 95 Oxygen Delivery Method Room Air Room Air GENERAL: alert, well appearing, well nourished, no distress, non-toxic, handcuffs in place. EYE EXAM: normal conjunctiva, PERRL and EOM's grossly intact OROPHARYNX: no exudate, no erythema, lips, buccal mucosa, and tongue normal and mucous membranes are moist NECK: supple, no nuchal rigidity, no adenopathy, non-tender LUNGS: Clear to auscultation. Normal chest wall mechanics, no w/r/r HEART: no murmurs, S1 normal and S2 normal ABDOMEN: abdomen soft, non-tender, normo-active bowel sounds, no masses, no r ebound or guarding. BACK: Back is symmetrical on inspection and there is no deformity, no midline t enderness, no CVA tenderness. SKIN: no rashes and no bruising UPPER EXTREMITIES: upper extremities are grossly normal. FROM, nml pulses b/l. LOWER EXTREMITIES: No pitting edema. decreased ROM b/l, nml pulses b/l. NEURO EXAM: Normal sensorium, cranial nerves II-XII grossly intact, normal speech, no gross weakness of arms, no gross weakness of legs. Patient with bilateral lower extremity neuropathy up to the level of the knees. Patient states this contributes to difficulty walking. Course Course 2010: Pt updated on results. States he was previously told that his kidney numbers were not normal and is aware of the anemia. Patient denies any recent blood loss including any black stools. 2032: Discussed with [facility] at [facility]. Pt had fever yesterday and again today up to 102.2 F. They did have a pulse ox reading of 88%. They do have a history of anemia, chronic kidney disease, diabetes, and COPD all verified on the patient. We did discuss his prior outpatient labs from April 28, 2020 compared to the levels tonight. Patient does have a history of iron deficiency anemia although they confirm patient is not taking any iron supplementation. These seem stable and relatively unchanged. They verify that patient does not use any nebulizer or MDI treatments and does not require oxygen. 2054: After updated the patient again, the nurse and I prepared to perform an ambulatory pulse ox and patient stated he is not ambulatory. Patient denies any history of DVT, denies noticing any lower extremity edema. 2144: Discussed with Dr. Wayne. 2150: Updated on patient. Patient states he is nonambulatory due to significant neuropathy. Administered Medications Acetaminophen (Acetaminophen 325 Mg Tab) 650 mg PO Q4H PRN PRN Reason: Pain or Fever Stop: 06/22/20 00:45 Last Admin: 05/23/20 08:54 Dose: 650 mg Documented by: [id number] Admin: 05/23/20 01:12 Dose: 650 mg Documented by: [id number] Aspirin (Aspirin 81 Mg Ectab) 81 mg PO DAILY MARY Stop: 06/22/20 08:59 Last Admin: 05/23/20 08:57 Dose: 81 mg Documented by: [id number] Fludrocortisone Acetate (Fludrocortisone Acetate 0.1 Mg Tab) 0.3 mg PO DAILY MARY Stop: 06/22/20 08:59 Last Admin: 05/23/20 09:00 Dose: 0.3 mg Documented by: [id number] Fluoxetine HCl (Fluoxetine Hcl 20 Mg Cap) 40 mg PO DAILY [facility] Stop: 06/22/20 08:59 Last Admin: 05/23/20 08:59 Dose: 40 mg Documented by: [id number] Gabapentin (Gabapentin 600 Mg Tab) 600 mg PO QID [facility] Stop: 06/22/20 08:59 Last Admin: 05/23/20 16:54 Dose: 600 mg Documented by: [id number] Admin: 05/23/20 12:03 Dose: 600 mg Documented by: [id number] Admin: 05/23/20 08:58 Dose: 600 mg Documented by: [id number] Heparin Sodium (Porcine) (Heparin Sod 5,000 Unit/0.5 Ml Vial) 5,000 units SQ Q8 [facility] Stop: 06/22/20 05:59 Last Admin: 05/23/20 12:11 Dose: 5,000 units Documented by: [id number] Cosigned by: [id number] Admin: 05/23/20 06:39 Dose: 5,000 units Documented by: [id number] Cosigned by: [id number] Ceftriaxone Sodium 2,000 mg/ (Dextrose) 70 mls @ 100 mls/hr IV Q24H [facility]; Protocol Stop: 05/30/20 07:59 Last Infusion: 05/23/20 09:50 Dose: 0 mls/hr Documented by: [id number] Admin: 05/23/20 08:58 Dose: 100 mls/hr Documented by: [id number] Doxycycline Hyclate 100 mg/ (Dextrose) 110 mls @ 50 mls/hr IV Q12H [facility] Stop: 05/30/20 08:59 Last Infusion: 05/23/20 11:31 Dose: 0 mls/hr Documented by: [id number] Admin: 05/23/20 08:57 Dose: 50 mls/hr Documented by: [id number] Sodium Chloride (Nss 1000ml) 1,000 mls @ 50 mls/hr IV .Q20H [facility] Stop: 06/22/20 06:59 Last Infusion: 05/23/20 11:31 Dose: 50 mls/hr Documented by: [id number] Admin: 05/23/20 08:57 Dose: 50 mls/hr Documented by: [id number] Sodium Chloride (Nss) 500 mls @ 80 mls/hr IV .Q6H15M [facility] Stop: 06/22/20 12:44 Last Admin: 05/23/20 14:27 Dose: 80 mls/hr Documented by: [id number] Insulin Aspart (Insulin Aspart 100 Units/Ml 3 Ml Pen) 0 units SC ACHS [facility] Stop: 06/22/20 07:29 Last Admin: 05/23/20 17:04 Dose: Not Given Documented by: [id number] Cosigned by: [id number] Admin: 05/23/20 12:10 Dose: Not Given Documented by: [id number] Cosigned by: [id number] Admin: 05/23/20 10:28 Dose: Not Given Documented by: [id number] Cosigned by: [id number] Insulin Glargine (Insulin Glargine Solostar 100 Units/Ml 3 Ml Pen) 15 units SQ QAM [facility] Stop: 06/22/20 08:59 Last Admin: 05/23/20 09:50 Dose: 15 units Documented by: [id number] Cosigned by: [id number] Levothyroxine Sodium (Levothyroxine Sodium 137 Mcg Tablet) 137 mcg PO DAILYBB [facility] Stop: 06/22/20 06:29 Last Admin: 05/23/20 06:30 Dose: 137 mcg Documented by: [id number] Ondansetron HCl (Ondansetron Inj 2 Mg/Ml 2 Ml Vial) 4 mg IV Q6H PRN PRN Reason: Nausea Stop: 06/22/20 00:45 Last Admin: 05/23/20 16:59 Dose: 4 mg Documented by: [id number] Admin: 05/23/20 10:16 Dose: 4 mg Documented by: [id number] Vitamin B Complex/Folic Acid (Nephrocaps) 1 cap PO DAILY MARY Stop: 06/22/20 08:59 Last Admin: 05/23/20 10:15 Dose: 1 cap Documented by: [id number] Discontinued Medications Doxycycline Hyclate (Doxycycline Hyclate 100 Mg Cap) 100 mg PO NOW STA Stop: 05/22/20 20:38 Last Admin: 05/22/20 21:03 Dose: 100 mg Documented by: [id number] Cefepime HCl (Maxipime) 2,000 mg in 20 mls @ 5 mls/min IV NOW STA Stop: 05/22/20 20:40 Last Admin: 05/22/20 21:03 Dose: 5 mls/min Documented by: [id number] Levalbuterol HCl (Levalbuterol Tartrate 15 Gm Hfa.Aer.Ad) 2 puffs INH QID MARY Stop: 06/22/20 08:59 Last Admin: 05/23/20 08:00 Dose: 2 puffs Documented by: [id number] Ondansetron HCl (Ondansetron Inj 2 Mg/Ml 2 Ml Vial) Confirm Administered Dose 4 mg .ROUTE .STK-MED ONE Stop: 05/23/20 01:06 Last Admin: 05/23/20 01:13 Dose: 4 mg Documented by: [id number] Potassium Chloride (Potassium Chloride 20 Meq Tabcr) 40 meq PO NOW STA Stop: 05/22/20 19:59 Last Admin: 05/22/20 20:30 Dose: 40 meq Documented by: [id number] Potassium Chloride (Potassium Chloride 20 Meq Tabcr) 20 meq PO NOW STA Stop: 05/23/20 01:03 Last Admin: 05/23/20 02:25 Dose: 20 meq Documented by: [id number] Potassium Citrate (Potassium Citrate 10 Meq Tab) 40 meq PO ONE ONE Stop: 05/23/20 13:01 Last Admin: 05/23/20 14:27 Dose: 40 meq Documented by: [id number] Medical Decision Making Differential Diagnosis Differential diagnoses includes but is not limited to pneumonia, bronchitis, COPD/Asthma exacerbation, pneumothorax, pulmonary embolism, congestive heart failure, acute coronary syndrome Medical Records Attestation: I reviewed the patient's medical records. Home Medications Current Medication List: was personally reviewed by me Laboratory Data Attestation: I reviewed the patient's lab results. Result diagrams: 05/23/20 05:24 05/23/20 17:45 Lab Results 05/22/20 05/22/20 05/22/20 Range/Units 19:05 19:05 19:05 WBC 6.00 (4.8-10.8) K/uL RBC 2.93 L (4.7-6.1) M/uL Hgb 8.2 L (14.0-18.0) g/dL Hct 24.9 L (42-52) % MCV 85.0 (80-100) fL MCH 28.0 (25-34) pg MCHC 32.9 (32-36) g/dL RDW Std Deviation 51.7 H (36.4-46.3) fL RDW Coeff of Minnie 16.6 H (11.5-14.5) % Plt Count 294 (130-400) K/uL MPV 8.8 (7.4-10.4) fL Immature Gran % (Auto) 0.2 % Neut % (Auto) 60.7 % Lymph % (Auto) 22.3 % [place] % (Auto) 14.8 % Eos % (Auto) 1.2 % Baso % (Auto) 0.8 % Neut # (Auto) 3.64 (1.4-6.5) K/uL Lymph # (Auto) 1.34 (1.2-3.4) K/uL [place] # (Auto) 0.89 H (0.11-0.59) K/uL Eos # (Auto) 0.07 (0-0.5) K/uL Baso # (Auto) 0.05 (0-0.2) K/uL Immature Gran # (Auto) 0.01 (0.00-0.02) K/uL PT 10.9 (9.0-12.0) Seconds INR 1.0 (0.9-1.1) APTT 29.3 (21.0-31.0) Seconds PTT Ratio 1.1 Sodium 142 (136-145) mmol/L Potassium 2.9 L (3.5-5.1) mmol/L Chloride 109 H (98-107) mmol/L Carbon Dioxide 29 (21-32) mmol/L Anion Gap 4.0 (3-11) BUN 21 H (7-18) mg/dl Creatinine 2.49 H (0.6-1.4) mg/dl Est Cr Clr Drug Dosing 36.4 ml/min Est GFR ( Amer) 32.2 Est GFR (Non-Af Amer) 27.8 BUN/Creatinine Ratio 8.4 L (10-20) Glucose 107 H (70-99) mg/dl Lactate (0.4-2.0) mmol/L Calcium 7.6 L (8.5-10.1) mg/dl Magnesium 2.0 (1.8-2.4) mg/dl Total Bilirubin 0.2 (0.2-1) mg/dl AST 19 (15-37) U/L ALT 24 (12-78) U/L Alkaline Phosphatase 117 (45-117) U/L Troponin I < 0.015 (0-0.045) ng/ml Total Protein 6.7 (6.4-8.2) gm/dl Albumin 2.4 L (3.4-5.0) gm/dl Globulin 4.3 H (2.5-4.0) gm/dl Albumin/Globulin Ratio 0.6 L (0.9-2) Procalcitonin (0-0.5) ng/ml Adenovirus (PCR) (NotDetected) B. pertussis DNA (PCR) (NotDetected) B.parapertussis DNA PCR (NotDetected) C. pneumoniae DNA (PCR) (NotDetected) Coronavirus OC43 (PCR) (NotDetected) Coronavirus HKU1 (PCR) (NotDetected) Coronavirus 229E (PCR) (NotDetected) COVID-19 PCR (NotDetected) Coronavirus NL63 (PCR) (NotDetected) Human Metapneumovir PCR (NotDetected) Influenza Type A (PCR) (NotDetected) Influ A Molecular Assay (Negative) Influenza Type B (PCR) (NotDetected) Influ B Molecular Assay (Negative) M. pneumoniae (PCR) (NotDetected) Parainfluenza 1 (PCR) (NotDetected) Parainfluenza 2 (PCR) (NotDetected) Parainfluenza 3 (PCR) (NotDetected) Parainfluenza 4 (PCR) (NotDetected) RSV (PCR) (NotDetected) Entero/Rhino (PCR) (NotDetected) 05/22/20 05/22/20 05/22/20 Range/Units 19:05 19:05 19:05 WBC (4.8-10.8) K/uL RBC (4.7-6.1) M/uL Hgb (14.0-18.0) g/dL Hct (42-52) % MCV (80-100) fL MCH (25-34) pg MCHC (32-36) g/dL RDW Std Deviation (36.4-46.3) fL RDW Coeff of Minnie (11.5-14.5) % Plt Count (130-400) K/uL MPV (7.4-10.4) fL Immature Gran % (Auto) % Neut % (Auto) % Lymph % (Auto) % [place] % (Auto) % Eos % (Auto) % Baso % (Auto) % Neut # (Auto) (1.4-6.5) K/uL Lymph # (Auto) (1.2-3.4) K/uL [place] # (Auto) (0.11-0.59) K/uL Eos # (Auto) (0-0.5) K/uL Baso # (Auto) (0-0.2) K/uL Immature Gran # (Auto) (0.00-0.02) K/uL PT (9.0-12.0) Seconds INR (0.9-1.1) APTT (21.0-31.0) Seconds PTT Ratio Sodium (136-145) mmol/L Potassium (3.5-5.1) mmol/L Chloride (98-107) mmol/L Carbon Dioxide (21-32) mmol/L Anion Gap (3-11) BUN (7-18) mg/dl Creatinine (0.6-1.4) mg/dl Est Cr Clr Drug Dosing ml/min Est GFR ( Amer) Est GFR (Non-Af Amer) BUN/Creatinine Ratio (10-20) Glucose (70-99) mg/dl Lactate 0.5 (0.4-2.0) mmol/L Calcium (8.5-10.1) mg/dl Magnesium (1.8-2.4) mg/dl Total Bilirubin (0.2-1) mg/dl AST (15-37) U/L ALT (12-78) U/L Alkaline Phosphatase (45-117) U/L Troponin I (0-0.045) ng/ml Total Protein (6.4-8.2) gm/dl Albumin (3.4-5.0) gm/dl Globulin (2.5-4.0) gm/dl Albumin/Globulin Ratio (0.9-2) Procalcitonin 0.07 (0-0.5) ng/ml Adenovirus (PCR) (NotDetected) B. pertussis DNA (PCR) (NotDetected) B.parapertussis DNA PCR (NotDetected) C. pneumoniae DNA (PCR) (NotDetected) Coronavirus OC43 (PCR) (NotDetected) Coronavirus HKU1 (PCR) (NotDetected) Coronavirus 229E (PCR) (NotDetected) COVID-19 PCR (NotDetected) Coronavirus NL63 (PCR) (NotDetected) Human Metapneumovir PCR (NotDetected) Influenza Type A (PCR) (NotDetected) Influ A Molecular Assay Negative (Negative) Influenza Type B (PCR) (NotDetected) Influ B Molecular Assay Negative (Negative) M. pneumoniae (PCR) (NotDetected) Parainfluenza 1 (PCR) (NotDetected) Parainfluenza 2 (PCR) (NotDetected) Parainfluenza 3 (PCR) (NotDetected) Parainfluenza 4 (PCR) (NotDetected) RSV (PCR) (NotDetected) Entero/Rhino (PCR) (NotDetected) 05/22/20 Range/Units 19:05 WBC (4.8-10.8) K/uL RBC (4.7-6.1) M/uL Hgb (14.0-18.0) g/dL Hct (42-52) % MCV (80-100) fL MCH (25-34) pg MCHC (32-36) g/dL RDW Std Deviation (36.4-46.3) fL RDW Coeff of Minnie (11.5-14.5) % Plt Count (130-400) K/uL MPV (7.4-10.4) fL Immature Gran % (Auto) % Neut % (Auto) % Lymph % (Auto) % [place] % (Auto) % Eos % (Auto) % Baso % (Auto) % Neut # (Auto) (1.4-6.5) K/uL Lymph # (Auto) (1.2-3.4) K/uL [place] # (Auto) (0.11-0.59) K/uL Eos # (Auto) (0-0.5) K/uL Baso # (Auto) (0-0.2) K/uL Immature Gran # (Auto) (0.00-0.02) K/uL PT (9.0-12.0) Seconds INR (0.9-1.1) APTT (21.0-31.0) Seconds PTT Ratio Sodium (136-145) mmol/L Potassium (3.5-5.1) mmol/L Chloride (98-107) mmol/L Carbon Dioxide (21-32) mmol/L Anion Gap (3-11) BUN (7-18) mg/dl Creatinine (0.6-1.4) mg/dl Est Cr Clr Drug Dosing ml/min Est GFR ( Amer) Est GFR (Non-Af Amer) BUN/Creatinine Ratio (10-20) Glucose (70-99) mg/dl Lactate (0.4-2.0) mmol/L Calcium (8.5-10.1) mg/dl Magnesium (1.8-2.4) mg/dl Total Bilirubin (0.2-1) mg/dl AST (15-37) U/L ALT (12-78) U/L Alkaline Phosphatase (45-117) U/L Troponin I (0-0.045) ng/ml Total Protein (6.4-8.2) gm/dl Albumin (3.4-5.0) gm/dl Globulin (2.5-4.0) gm/dl Albumin/Globulin Ratio (0.9-2) Procalcitonin (0-0.5) ng/ml Adenovirus (PCR) Not Detected (NotDetected) B. pertussis DNA (PCR) Not Detected (NotDetected) B.parapertussis DNA PCR Not Detected (NotDetected) C. pneumoniae DNA (PCR) Not Detected (NotDetected) Coronavirus OC43 (PCR) Not Detected (NotDetected) Coronavirus HKU1 (PCR) Not Detected (NotDetected) Coronavirus 229E (PCR) Not Detected (NotDetected) COVID-19 PCR DETECTED A* (NotDetected) Coronavirus NL63 (PCR) Not Detected (NotDetected) Human Metapneumovir PCR Not Detected (NotDetected) Influenza Type A (PCR) Not Detected (NotDetected) Influ A Molecular Assay (Negative) Influenza Type B (PCR) Not Detected (NotDetected) Influ B Molecular Assay (Negative) M. pneumoniae (PCR) Not Detected (NotDetected) Parainfluenza 1 (PCR) Not Detected (NotDetected) Parainfluenza 2 (PCR) Not Detected (NotDetected) Parainfluenza 3 (PCR) Not Detected (NotDetected) Parainfluenza 4 (PCR) Not Detected (NotDetected) RSV (PCR) Not Detected (NotDetected) Entero/Rhino (PCR) Not Detected (NotDetected) Imaging Data Radiologist's Impression: XR chest 1V portable HISTORY: 55 years-old Male SEPSIS acute sepsis COMPARISON: Chest radiograph 06/12/2018 TECHNIQUE: Portable AP view of the chest FINDINGS: Cardiomediastinal and hilar silhouettes are within normal limits. Nodular opacity of the right lung apex may correlate with osteophytic spurring of the anterior right first rib. No pneumothorax or overt pulmonary edema. Clear right lung. Small left pleural effusion with left lung base consolidation. Bones appear grossly intact. IMPRESSION: Small left pleural effusion with left lung base consolidation suggestive of pneumonia versus atelectasis. ACT 112: Negative or not required by law. The above report was generated using voice recognition software. It may contain grammatical, syntax or spelling errors. Electronically signed by: Jabari Leong M.D. 05/22/2020 7:53 PM ECG Data Attestation: I personally reviewed and interpreted this ECG as follows: Indication: + SOB/dyspnea Rate (beats per minute): 76 Rhythm: + normal sinus ECG Intervals/blocks: + Normal QRS and + Normal QT ECG Craig: + Normal ECG ST segments: + ST depression (V4-6) Blood Pressure Blood Pressure Findings: Elevated blood pressure Blood Pressure Disposition: further management by hospitalist LAURA Narrative This is a 55-year-old male prisoner brought in from [facility] due to concern for recent fevers and hypoxia noted in the infirmary. Patient here denies any shortness of breath, cough or cold type symptoms. Patient's oxygen saturation here was normal on room air. Patient did admit to a recent diagnosis of COPD and a remote smoking history. Patient is also a long-term diabetic, and does admit to difficulty controlling his blood sugars recently. Labs are drawn and sent and chest x-ray performed, and patient was found to have a left-sided pneumonia. Patient also found to have several other lab abnormalities, and [facility] nature [facility] several of these. Patient unable to perform an ambulatory pulse ox stating that he is wheelchair-bound due to significant bilateral lower extremity neuropathy. Patient's anemia and chronic kidney disease otherwise appears stable based on discussion with the nurse in the infirmary. Patient remained hemodynamically stable here, never hypoxic, no increased work of breathing and did not require any supplemental oxygen. Due to concern for his nonambulatory status for consideration of possible PE, we discussed additional imaging. However, given patient's elevated creatinine, I did not feel CT angiography of the chest was appropriate. No VQ scan could be obtained the night. We will order an ultrasound of the lower extremities to rule out DVT as a precaution, although I suspect the patient's fever and hypoxia were more related to the pneumonia seen on chest x-ray. Due to multiple comorbidities and several lab abnormalities as well as recent hypoxia in the setting of the pneumonia seen here erika, case was discussed with the hospitalist. They were in agreement with the plan. Patient did have a negative Covid test at the snf 3 days prior, however we will repeat this again tonight as a precaution. Patient did have hyperglycemia here although no evidence of DKA. I do not suspect ACS although patient did have an abnormal EKG. Troponin negative. No evidence for bacteremia/sepsis at this time although I do feel the patient is at risk given his other comorbidities and obvious source. Patient was started on IV antibiotics while in the emergency room, cultures were sent as a precaution. An order was placed for continuous cardiac monitoring. The monitor shows a rate of _70_ with __normal sinus_ rhythm. Impression & Plan Pneumonia, Hypertension, Anemia, CKD (chronic kidney disease) Discharge Plan Visit Data Chief Complaint: Fever ED Provider: Lee Ann Hou Discharge Problem: Pneumonia, Hypertension, Anemia, CKD (chronic kidney disease) Patient Disposition: Admitted As Inpatient Discharge Instructions Interventions: ED Discharge Assessment Last Done: 05/22/20 23:43 Discharge Problem: Pneumonia Qualifiers: Pneumonia type: due to unspecified organism Laterality: left Lung location: lower lobe of lung Qualified Code(s): J18.9 - Pneumonia, unspecified organism Hypertension Qualifiers: Hypertension type: essential hypertension Qualified Code(s): I10 - Essential (primary) hypertension Anemia Qualifiers: Anemia type: iron deficiency Iron deficiency anemia type: unspecified iron deficiency Qualified Code(s): D50.9 - Iron deficiency anemia, unspecified CKD (chronic kidney disease) Qualifiers: Chronic kidney disease stage: unspecified stage Qualified Code(s): N18.9 - Chronic kidney disease, unspecified
[2020-05-22 19:29] LABS: Basophils # (auto) 0.05 K/uL (0-0.2); Basophils % (auto) 0.8 %; Eosinophils # (auto) 0.07 K/uL (0-0.5); Eosinophils % (auto) 1.2 %; Hematocrit (blood only) 24.9 % (42-52); Hemoglobin 8.2 g/dL (14.0-18.0); Immature Granulocytes # (auto) 0.01 K/uL (0.00-0.02); Immature Granulocytes % (auto) 0.2 %; Lymphocytes # (auto) 1.34 K/uL (1.2-3.4); Lymphocytes % (auto) 22.3 %; Mean Corpuscular Hgb Conc 32.9 g/dL (32-36); Mean Platelet Volume 8.8 fL (7.4-10.4); Monocytes # (auto) 0.89 K/uL (0.11-0.59); Monocytes % (auto) 14.8 %; Neutrophils # (auto) 3.64 K/uL (1.4-6.5); Neutrophils % (auto) 60.7 %; Platelet Count 294 K/uL (130-400); RDW Coefficient of Variation 16.6 % (11.5-14.5); RDW Standard Deviation 51.7 fL (36.4-46.3); Red Blood Count 2.93 M/uL (4.7-6.1)
[2020-05-22 19:47] LABS: Alanine Aminotransferase 24 U/L (12-78); Albumin Level 2.4 gm/dl (3.4-5.0); Aspartate Aminotransferase 19 U/L (15-37); BUN Creatinine Ratio 8.4 (10-20); Blood Urea Nitrogen 21 mg/dl (7-18); Calcium 7.6 mg/dl (8.5-10.1); Carbon Dioxide 29 mmol/L (21-32); Chloride 109 mmol/L (98-107); Creatinine Clr Calc Pharmacy 36.4 ml/min; Est GFR (African American) 32.2; Est GFR (Non-African American) 27.8; Glucose 107 mg/dl (70-99); Partial Thromboplastin Ratio 1.1; Partial Thromboplastin Time 29.3 Seconds (21.0-31.0); Potassium 2.9 mmol/L (3.5-5.1); Prothrombin Time 10.9 Seconds (9.0-12.0); Sodium 142 mmol/L (136-145)
[2020-05-22 19:51] LABS: Albumin Globulin Ratio 0.6 (0.9-2); Alkaline Phosphatase 117 U/L (45-117); Bilirubin,Total 0.2 mg/dl (0.2-1); Globulin 4.3 gm/dl (2.5-4.0); Total Protein 6.7 gm/dl (6.4-8.2); Troponin I < 0.015 ng/ml (0-0.045)
--- NOTE | 2020-05-22 19:54 | XRay Report ---
XR chest 1V portable HISTORY: 55 years-old Male SEPSIS acute sepsis COMPARISON: Chest radiograph 06/12/2018 TECHNIQUE: Portable AP view of the chest FINDINGS: Cardiomediastinal and hilar silhouettes are within normal limits. Nodular opacity of the right lung a pex may correlate with osteophytic spurring of the anterior right first rib. No pneumothorax or overt pulmonary edema. Clear right lung. Small left pleural effusion with left lung base consolidation. Joel caty appear grossly intact. IMPRESSION: Small left pleural effusion with left lung base consolidation suggestive of pneumonia lori marlon atelectasis. ACT 112: Negative or not required by law. The above report was generated using voice recognition software. It may contain grammatical, syntax o r spelling errors. Electronically signed by: Jabari Leong M.D. 05/22/2020 7:53 PM
[2020-05-22] MEDS ORDERED: POTASSIUM CHLORIDE CRTAB 20 MEQ TABCR PO STA (19:58)
[2020-05-22 20:09] LABS: Influenza A virus by PCR Negative (Negative); Influenza B virus by PCR Negative (Negative)
[2020-05-22] MEDS ORDERED: DOXYCYCLINE HYCLATE 100 MG CAP PO STA (20:37)
[2020-05-22] MEDS ORDERED: CEFEPIME 2,000 MG/20 ML VIAL IV STA (20:37)
[2020-05-22 23:05] LABS: Adenovirus PCR Not Detected (NotDetected); Bordetella parapertussis PCR Not Detected (NotDetected); Bordetella pertussis PCR Not Detected (NotDetected); Chlamydia pneumoniae PCR Not Detected (NotDetected); Coronavirus 229E PCR Not Detected (NotDetected); Coronavirus HKU1 PCR Not Detected (NotDetected); Coronavirus NL63 PCR Not Detected (NotDetected); Coronavirus OC43PCR Not Detected (NotDetected); Human Metapneumovirus PCR Not Detected (NotDetected); Influenza A PCR Not Detected (NotDetected); Influenza B PCR Not Detected (NotDetected); Mycoplasma pneumoniae PCR Not Detected (NotDetected); Parainfluenza Virus 1 PCR Not Detected (NotDetected); Parainfluenza Virus 2 PCR Not Detected (NotDetected); Parainfluenza Virus 3 PCR Not Detected (NotDetected); Parainfluenza Virus 4 PCR Not Detected (NotDetected); Respiratory Syncytial VirusPCR Not Detected (NotDetected); Rhinovirus/Enterovirus PCR Not Detected (NotDetected)
[2020-05-22 23:07] LABS: Coronavirus CoV-2 (COVID19)PCR DETECTED (NotDetected)
[2020-05-23] MEDS ORDERED: NITROGLYCERIN SL 0.4 MG/TAB TAB SL PRN (00:46)
[2020-05-23] MEDS ORDERED: POTASSIUM CHLORIDE CRTAB 20 MEQ TABCR PO STA (01:02)
[2020-05-23] MEDS ORDERED: ONDANSETRON INJ 2 MG/ML 2 ML VIAL ONE (01:05)
[2020-05-23] MEDS: ACETAMINOPHEN 325 MG TAB PO PRN ×3 (01:12→20:32)
[2020-05-23] MEDS ORDERED: GLUCOSE 10 TABS/TUBE PO PRN (01:30)
[2020-05-23] MEDS ORDERED: GLUCAGON FOR INJ 1 MG VIAL SQ PRN (01:30)
[2020-05-23] MEDS ORDERED: GLUCOSE 40% GEL 15 GM TUBE PO PRN (01:30)
--- NOTE | 2020-05-23 04:32 | History and Physical Report ---
DATE OF ADMISSION: 05/22/2020 CHIEF COMPLAINT: Fever. HISTORY OF PRESENT ILLNESS: This is a 55-year-old male with past medical history significant for type 1 diabetes, hyperlipidemia, eczema, depression, anemia, hypothyroidism, neuropathy, history of pneumonia, who was recently in the hospital because of DKA, and also non-ST elevated myocardial infarction secondary to demand ischemia and XOCHITL, which got resolved, discharged on Lantus and Novolin, who comes because of fever. The patient has a fever yesterday and today in the correction facility. In correction facility his pulse ox was checked and he was hypoxic in 80s, so he was sent here. Currently the patient is resting comfortably and hemodynamically stable, saturating fine on room air. He is feeling he has some belching, but denies any shortness of breath or cough. No chest pain. No headache, no dizziness, no blurred vision, no earache, no runny nose, no sore throat, no dysphagia. Appetite is okay. Denies any loss of sense of smell or taste. No nausea, no abdominal pain. Normal bowel and bladder movements. No rash seen. Imaging studies showed left lower lobe pneumonia. As per patient, he was tested for COVID three days ago in intermediate and was negative, but we again did the BioFire in the ER, it came back positive for COVID-19 PCR. His creatinine is 2.4, baseline was 1 when he was here.His hemoglobin is 8.2, which was around 8-9 last admission. The patient denies any blood in the stools or black stools. Currently resting comfortably. ALLERGIES: No known drug allergies. PAST MEDICAL HISTORY: As mentioned above. PAST SURGICAL HISTORY: I and D of the right gluteal abscess. MEDICATIONS: Currently the patient is on aspirin 81 mg p.o. daily, atorvastatin 80 mg at bedtime, B complex 1 tablet daily, fludrocortisone 0.3 mg p.o. daily, Prozac 40 mg p.o. daily, gabapentin 600 mg p.o. q.i.d., Lantus 15 units a.m. and 18 units at bedtime. Insulin Regular human sliding scale, Xopenex HFA 2 inhalations q.i.d., levothyroxine 137 mcg p.o. daily, lisinopril 2.5 mg p.o. daily, Zofran 4 mg p.o. q. 6 hours p.r.n., vitamin D 1000 mg p.o. daily. FAMILY HISTORY: No family history on file. SOCIAL HISTORY: He says he used to smoke in the past, quit few years ago. REVIEW OF SYSTEMS: Currently in the correction facility, review of systems as per HPI. Rest of the review of systems negative. PHYSICAL EXAMINATION: GENERAL: The patient is of moderate build, not in acute distress. VITAL SIGNS: Temperature 36.8, pulse 83, respiratory rate 18, blood pressure 141/63, oxygen 94% on room air. HEENT: Pupils equal, round, and reactive to light. Oral mucosa moist. NECK: No JVD, no neck masses seen. CARDIOVASCULAR: S1, S2 heard. Regular rate and rhythm, no murmur, no gallop. RESPIRATORY SYSTEM: Normal AP diameter. No accessory muscle use. No wheezing, no crackles. ABDOMEN: Soft, bowel sounds present, nontender. No distention. CENTRAL NERVOUS SYSTEM: Cranial nerves II-XII grossly intact. Nonfocal. EXTREMITIES: No edema, no erythema seen. LABORATORY DATA: WBC 6, hemoglobin 8.2, hematocrit 24.9, platelets 294. PT 10.9, INR 1, APTT 29.3. Sodium 142, potassium 2.9, chloride 109, bicarbonate 29, BUN 21, creatinine 2.4, serum glucose 107. Lactate 0.5, calcium 7.6, magnesium 2, total bilirubin 0.2, AST 19, ALT 24, alkaline phosphatase 117. Troponin I less than 0.015. Procalcitonin 0.07. BioFire COVID-19 PCR positive. IMAGING DATA: Chest x-ray, small left pleural effusion with left basilar consolidation suggestive of pneumonia versus atelectasis. EKG: Normal sinus rhythm with a rate of 76, nonspecific ST waves in lateral leads. ASSESSMENT AND PLAN: This is a 55-year-old male who presents with fever, questionable hypoxia, and found to be COVID-19 positive. 1. Positive for COVID-19 pneumonia, coming from the intermediate, having fever yesterday and today. No leukocytosis. His chest x-ray shows left lower lobe infiltrate. COVID-19 BioFire is positive. The patient had question of hypoxia in the intermediate, but currently resting comfortably and hemodynamically stable and saturating fine on room air. Lactate and procalcitonin negative. In the ER, empirically started on Rocephin and doxycycline. Will continue the Rocephin and doxycycline for now and check the D-dimer in the a.m. and follow repeat labs. If the patient again desaturates, will start him on dexamethasone and remdesivir. Closely monitor in the tele floor. We will place him on gentle fluids. 2. Hypokalemia. We will replace. 3. Acute kidney injury. Baseline creatinine around 1, currently with creatinine of 2.4. Getting gentle fluids. We will hold his lisinopril and monitor his blood pressure. 4. History of diabetes. Recently was here with diabetic ketoacidosis. Continue his home Lantus, insulin sliding scale. Will follow his blood suagrs closely. If started on dexamethasone, may need glycemic pharmacy consult. 5. Hypothyroidism. Continue Synthroid. 6. Hypertension. Holding the lisinopril. Will follow the blood pressure. 7. Anemia. Last admission, his vitamin B12 and folate levels were normal, iron was low, thought to be iron deficiency anemia. We will check his stool for Hemoccult. He needs to follow with GI when stable. Last time he was started on iron supplements, seems to be not taking. Will restart when able. 8. Code status. Full code. 9. Deep venous thrombosis prophylaxis, sequential compression devices. DISPOSITION: Closely monitor in tele floor. CLIFFORD
[2020-05-23 06:18] LABS: Basophils # (auto) 0.03 K/uL (0-0.2); Basophils % (auto) 0.5 %; Eosinophils # (auto) 0.04 K/uL (0-0.5); Eosinophils % (auto) 0.7 %; Hematocrit (blood only) 23.2 % (42-52); Hemoglobin 7.4 g/dL (14.0-18.0); Immature Granulocytes # (auto) 0.01 K/uL (0.00-0.02); Immature Granulocytes % (auto) 0.2 %; Lymphocytes # (auto) 1.46 K/uL (1.2-3.4); Lymphocytes % (auto) 24.3 %; Mean Corpuscular Hemoglobin 27.5 pg (25-34); Mean Corpuscular Hgb Conc 31.9 g/dL (32-36); Mean Corpuscular Volume 86.2 fL (80-100); Mean Platelet Volume 8.8 fL (7.4-10.4); Monocytes # (auto) 0.75 K/uL (0.11-0.59); Monocytes % (auto) 12.5 %; Neutrophils # (auto) 3.71 K/uL (1.4-6.5); Neutrophils % (auto) 61.8 %; Platelet Count 280 K/uL (130-400); RDW Coefficient of Variation 16.6 % (11.5-14.5); RDW Standard Deviation 52.7 fL (36.4-46.3); Red Blood Count 2.69 M/uL (4.7-6.1)
[2020-05-23] MEDS: LEVOTHYROXINE SODIUM 137 MCG TABLET PO SCH (06:30)
[2020-05-23] MEDS: HEPARIN SOD 5,000 UNIT/0.5 ML VIAL SQ SCH ×3 (06:39→21:40)
[2020-05-23 06:42] LABS: RBC Morphology Unremarkable
[2020-05-23 06:44] LABS: D Dimer 1490 ug/L FEU (0-500)
[2020-05-23 06:52] LABS: BUN Creatinine Ratio 8.9 (10-20); Calcium 7.5 mg/dl (8.5-10.1); Creatinine Clr Calc Pharmacy 37.1 ml/min; Est GFR (Non-African American) 28.5; Magnesium 2.1 mg/dl (1.8-2.4)
[2020-05-23 06:55] LABS: Estimated Average Glucose 192 mg/dl; Hemoglobin A1C 8.3 % (4.5-5.6)
--- NOTE | 2020-05-23 07:07 | Ultrasound Report ---
ULTRASOUND BILATERAL LOWER EXTREMITY VENOUS CLINICAL HISTORY: Sepsis. Nonambulatory patient. COMPARISON STUDY: No priors. TECHNIQUE: Real-time, grayscale, and color Doppler sonography of the deep veins of the right and left lower extremity was performed from the inguinal crease to the calf. Compression and augmentation wer e utilized. FINDINGS: There is no sonographic evidence of deep venous thrombosis identified in the right or left lower extremity. The common femoral, superficial femoral, and popliteal veins are patent and normally compressible bilaterally. The greater saphenous vein and the profunda femoris vein at the junction w ith the common femoral vein are clear in both legs. The visualized calf veins are patent bilaterally. Prominent inguinal lymph nodes are likely on a reactive basis. IMPRESSION: There is no sonographic evidence of deep venous thrombosis identified in the right or lef t lower extremity. ACT 112: Negative or not required by law. Electronically signed by: Kendall Pardo M.D. 05/23/2020 7:05 AM
--- NOTE | 2020-05-23 08:08 | Electrocardiogram Report ---
Test Reason : Blood Pressure : / mmHG Vent. Rate : 076 BPM Atrial Rate : 076 BPM P-R Int : 130 ms QRS Dur : 098 ms QT Int : 392 ms P-R-T Axes : 042 019 062 degrees QTc Int : 441 ms Normal sinus rhythm Left ventricular hypertrophy with repolarization abnormality Diffuse Minor Nonspecific ST abnormality Abnormal ECG When compared with ECG of 14-JUN-2018 03:29, ST now depressed in Lateral leads Nonspecific T wave abnormality now evident in Lateral leads Confirmed by Samuel Arteaga ([id number]) on 05/23/2020 8:08:28 AM Referred By: [facility] Confirmed By:Samuel Arteaga
[2020-05-23] MEDS ORDERED: LEVALBUTEROL TARTRATE 15 GM HFA.AER.AD INH PRN (08:19)
[2020-05-23] MEDS: DOXYCYCLINE HYCLATE 100 MG in DEXTROSE 5% 100 ML IV SCH ×2 (08:57→20:42)
[2020-05-23] MEDS: ASPIRIN 81 MG ECTAB PO SCH (08:57)
[2020-05-23] MEDS: SODIUM CHLORIDE 0.9% 1000ML 1,000 ML IV SCH (08:57)
[2020-05-23] MEDS: GABAPENTIN 600 MG TAB PO SCH ×4 (08:58→20:42)
[2020-05-23] MEDS: cefTRIAXone SODIUM 2,000 MG in DEXTROSE 5% 50 ML IV SCH (08:58)
[2020-05-23] MEDS: FLUoxetine HCL 20 MG CAP PO SCH (08:59)
[2020-05-23] MEDS ORDERED: FOLBEE PLUS CZ (DIATX) 1 TAB PO SCH (09:00)
[2020-05-23] MEDS ORDERED: LEVALBUTEROL TARTRATE 15 GM HFA.AER.AD INH SCH (09:00)
[2020-05-23] MEDS ORDERED: VITAMIN E 1000 UNIT PO SCH (09:00)
[2020-05-23] MEDS: FLUDROCORTISONE ACETATE 0.1 MG TAB PO SCH (09:00)
[2020-05-23] MEDS: INSULIN GLARGINE SOLOSTAR 100 UNITS/ML 3 ML PEN SQ SCH (09:50)
[2020-05-23] MEDS: NEPHROCAPS PO SCH (10:15)
[2020-05-23] MEDS: ONDANSETRON INJ 2 MG/ML 2 ML VIAL IV PRN ×3 (10:16→20:33)
[2020-05-23] MEDS: INSULIN ASPART 100 UNITS/ML 3 ML PEN SC SCH ×4 (10:28→21:40)
--- NOTE | 2020-05-23 12:45 | Hospitalist Progress Note ---
Date of Service May 23, 2020 Assessment & Plan (1) Pneumonia: +COVID CXR reports small left pleural effusion and left lung base consolidation Continue ceft and doxy for now Has been on room air since admission. The high flow NC noted on records was erroneous per RN and admitting Dr No need for COVID specific therapies for now Will monitor oxygenation Will monitor LFTs DD dimer was elevated. Negative dopplers Will continue hep sq q8h for DVT ppx for now (2) XOCHITL (acute kidney injury): Cr is 2.44 XOCHITL vs CKD since last blood work we have is from 2 yrs ago when Cr was 1 Will give gentle IVF and monitor Cr (3) Diabetes mellitus type I: Continue insulin and lantus A1c is 8.3 (4) Hypothyroidism: Continue levothyroxine (5) Hypertension: Monitor BP Lisinopril on hold for now due to possible XOCHITL Admission and Anticipated Discharge Date Admission Date: May 22, 2020 Subjective Patient seen and examined. Reports only nausea and dry cough Denied any chest pain, SOB Denied any abd pain, vomiting, diarrhea or constipation Denied any dysuria, freq, urgency Physical Exam Constitutional: + well hydrated; no acute distress Eyes: PERRL, conjunctivae normal, anicteric sclerae ENMT: external ear and nose normal, oropharynx normal Respiratory: normal respiratory effort; no respiratory distress Was not able to auscultate as there was no stethoscope available in room and on floor. (Refer to respiratory exam from H/P this morning) Cardiovascular: RRR, no murmur, no edema Gastrointestinal (Abdomen): normal bowel sounds, soft, nontender, no hepatosplenomegaly Skin: Scaly erythematous patchy lesions on dorsum of left hand and both feet (psoriatic lesions) Neurologic: PERRL, EOMI, accommodation nl, no face palsy, no dysarthria Genitourinary: no CVA tenderness Results & Data Results & Data ([facility]) Vital Signs (Past 12 Hours) Vital Signs Temp Pulse Pulse Resp BP BP Pulse Ox 05/23/20 12:14 36.7 C 81 18 144/71 H 91 05/23/20 08:00 75 16 93 05/23/20 07:22 36.9 C 75 16 152/71 H 95 05/23/20 03:53 36.8 C 71 16 121/54 L 91 05/23/20 01:00 81 Laboratory Results Laboratory Results - last 24 hr 05/22/20 05/22/20 05/22/20 19:05 19:05 19:05 WBC 6.00 RBC 2.93 L Hgb 8.2 L Hct 24.9 L MCV 85.0 MCH 28.0 MCHC 32.9 RDW Std Deviation 51.7 H RDW Coeff of Minnie 16.6 H Plt Count 294 MPV 8.8 Immature Gran % (Auto) 0.2 Neut % (Auto) 60.7 Lymph % (Auto) 22.3 [place] % (Auto) 14.8 Eos % (Auto) 1.2 Baso % (Auto) 0.8 Neut # (Auto) 3.64 Lymph # (Auto) 1.34 [place] # (Auto) 0.89 H Eos # (Auto) 0.07 Baso # (Auto) 0.05 Immature Gran # (Auto) 0.01 RBC Morphology PT 10.9 INR 1.0 APTT 29.3 PTT Ratio 1.1 D-Dimer Sodium 142 Potassium 2.9 L Chloride 109 H Carbon Dioxide 29 Anion Gap 4.0 BUN 21 H Creatinine 2.49 H Est Cr Clr Drug Dosing 36.4 Est GFR ( Amer) 32.2 Est GFR (Non-Af Amer) 27.8 BUN/Creatinine Ratio 8.4 L Glucose 107 H POC Glucose Estimat Average Glucose Hemoglobin A1c Lactate Calcium 7.6 L Magnesium 2.0 Total Bilirubin 0.2 AST 19 ALT 24 Alkaline Phosphatase 117 Total Creatine Kinase Troponin I < 0.015 Total Protein 6.7 Albumin 2.4 L Globulin 4.3 H Albumin/Globulin Ratio 0.6 L Procalcitonin Nasal Screen MRSA (PCR) Adenovirus (PCR) B. pertussis DNA (PCR) B.parapertussis DNA PCR C. pneumoniae DNA (PCR) Coronavirus OC43 (PCR) Coronavirus HKU1 (PCR) Coronavirus 229E (PCR) COVID-19 PCR Coronavirus NL63 (PCR) Hepatitis C Ab Screen Human Metapneumovir PCR Influenza Type A (PCR) Influ A Molecular Assay Influenza Type B (PCR) Influ B Molecular Assay M. pneumoniae (PCR) Parainfluenza 1 (PCR) Parainfluenza 2 (PCR) Parainfluenza 3 (PCR) Parainfluenza 4 (PCR) RSV (PCR) Entero/Rhino (PCR) 05/22/20 05/22/20 05/22/20 19:05 19:05 19:05 WBC RBC Hgb Hct MCV MCH MCHC RDW Std Deviation RDW Coeff of Minnie Plt Count MPV Immature Gran % (Auto) Neut % (Auto) Lymph % (Auto) [place] % (Auto) Eos % (Auto) Baso % (Auto) Neut # (Auto) Lymph # (Auto) [place] # (Auto) Eos # (Auto) Baso # (Auto) Immature Gran # (Auto) RBC Morphology PT INR APTT PTT Ratio D-Dimer Sodium Potassium Chloride Carbon Dioxide Anion Gap BUN Creatinine Est Cr Clr Drug Dosing Est GFR ( Amer) Est GFR (Non-Af Amer) BUN/Creatinine Ratio Glucose POC Glucose Estimat Average Glucose Hemoglobin A1c Lactate 0.5 Calcium Magnesium Total Bilirubin AST ALT Alkaline Phosphatase Total Creatine Kinase Troponin I Total Protein Albumin Globulin Albumin/Globulin Ratio Procalcitonin 0.07 Nasal Screen MRSA (PCR) Adenovirus (PCR) B. pertussis DNA (PCR) B.parapertussis DNA PCR C. pneumoniae DNA (PCR) Coronavirus OC43 (PCR) Coronavirus HKU1 (PCR) Coronavirus 229E (PCR) COVID-19 PCR Coronavirus NL63 (PCR) Hepatitis C Ab Screen Human Metapneumovir PCR Influenza Type A (PCR) Influ A Molecular Assay Negative Influenza Type B (PCR) Influ B Molecular Assay Negative M. pneumoniae (PCR) Parainfluenza 1 (PCR) Parainfluenza 2 (PCR) Parainfluenza 3 (PCR) Parainfluenza 4 (PCR) RSV (PCR) Entero/Rhino (PCR) 05/22/20 05/23/20 05/23/20 19:05 04:10 05:24 WBC RBC Hgb Hct MCV MCH MCHC RDW Std Deviation RDW Coeff of Minnie Plt Count MPV Immature Gran % (Auto) Neut % (Auto) Lymph % (Auto) [place] % (Auto) Eos % (Auto) Baso % (Auto) Neut # (Auto) Lymph # (Auto) [place] # (Auto) Eos # (Auto) Baso # (Auto) Immature Gran # (Auto) RBC Morphology PT INR APTT PTT Ratio D-Dimer Sodium Potassium Chloride Carbon Dioxide Anion Gap BUN Creatinine Est Cr Clr Drug Dosing Est GFR ( Amer) Est GFR (Non-Af Amer) BUN/Creatinine Ratio Glucose POC Glucose Estimat Average Glucose Hemoglobin A1c Lactate Calcium Magnesium Total Bilirubin AST ALT Alkaline Phosphatase Total Creatine Kinase Troponin I Total Protein Albumin Globulin Albumin/Globulin Ratio Procalcitonin Nasal Screen MRSA (PCR) Negative Adenovirus (PCR) Not Detected B. pertussis DNA (PCR) Not Detected B.parapertussis DNA PCR Not Detected C. pneumoniae DNA (PCR) Not Detected Coronavirus OC43 (PCR) Not Detected Coronavirus HKU1 (PCR) Not Detected Coronavirus 229E (PCR) Not Detected COVID-19 PCR DETECTED A* Coronavirus NL63 (PCR) Not Detected Hepatitis C Ab Screen Neg Human Metapneumovir PCR Not Detected Influenza Type A (PCR) Not Detected Influ A Molecular Assay Influenza Type B (PCR) Not Detected Influ B Molecular Assay M. pneumoniae (PCR) Not Detected Parainfluenza 1 (PCR) Not Detected Parainfluenza 2 (PCR) Not Detected Parainfluenza 3 (PCR) Not Detected Parainfluenza 4 (PCR) Not Detected RSV (PCR) Not Detected Entero/Rhino (PCR) Not Detected 05/23/20 05/23/20 05/23/20 05:24 05:24 05:24 WBC 6.00 RBC 2.69 L Hgb 7.4 L Hct 23.2 L MCV 86.2 MCH 27.5 MCHC 31.9 L RDW Std Deviation 52.7 H RDW Coeff of Minnie 16.6 H Plt Count 280 MPV 8.8 Immature Gran % (Auto) 0.2 Neut % (Auto) 61.8 Lymph % (Auto) 24.3 [place] % (Auto) 12.5 Eos % (Auto) 0.7 Baso % (Auto) 0.5 Neut # (Auto) 3.71 Lymph # (Auto) 1.46 [place] # (Auto) 0.75 H Eos # (Auto) 0.04 Baso # (Auto) 0.03 Immature Gran # (Auto) 0.01 RBC Morphology Unremarkable PT INR APTT PTT Ratio D-Dimer 1490 H* Sodium 142 Potassium 3.0 L Chloride 110 H Carbon Dioxide 27 Anion Gap 5.0 BUN 22 H Creatinine 2.44 H Est Cr Clr Drug Dosing 37.1 Est GFR ( Amer) 33.0 Est GFR (Non-Af Amer) 28.5 BUN/Creatinine Ratio 8.9 L Glucose 59 L POC Glucose Estimat Average Glucose Hemoglobin A1c Lactate Calcium 7.5 L Magnesium 2.1 Total Bilirubin AST ALT Alkaline Phosphatase Total Creatine Kinase Troponin I Total Protein Albumin Globulin Albumin/Globulin Ratio Procalcitonin Nasal Screen MRSA (PCR) Adenovirus (PCR) B. pertussis DNA (PCR) B.parapertussis DNA PCR C. pneumoniae DNA (PCR) Coronavirus OC43 (PCR) Coronavirus HKU1 (PCR) Coronavirus 229E (PCR) COVID-19 PCR Coronavirus NL63 (PCR) Hepatitis C Ab Screen Human Metapneumovir PCR Influenza Type A (PCR) Influ A Molecular Assay Influenza Type B (PCR) Influ B Molecular Assay M. pneumoniae (PCR) Parainfluenza 1 (PCR) Parainfluenza 2 (PCR) Parainfluenza 3 (PCR) Parainfluenza 4 (PCR) RSV (PCR) Entero/Rhino (PCR) 05/23/20 05/23/20 05/23/20 05:24 05:24 10:14 WBC RBC Hgb Hct MCV MCH MCHC RDW Std Deviation RDW Coeff of Minnie Plt Count MPV Immature Gran % (Auto) Neut % (Auto) Lymph % (Auto) [place] % (Auto) Eos % (Auto) Baso % (Auto) Neut # (Auto) Lymph # (Auto) [place] # (Auto) Eos # (Auto) Baso # (Auto) Immature Gran # (Auto) RBC Morphology PT INR APTT PTT Ratio D-Dimer Sodium Potassium Chloride Carbon Dioxide Anion Gap BUN Creatinine Est Cr Clr Drug Dosing Est GFR ( Amer) Est GFR (Non-Af Amer) BUN/Creatinine Ratio Glucose POC Glucose 124 H Estimat Average Glucose 192 Hemoglobin A1c 8.3 H Lactate Calcium Magnesium Total Bilirubin AST ALT Alkaline Phosphatase Total Creatine Kinase 113 Troponin I Total Protein Albumin Globulin Albumin/Globulin Ratio Procalcitonin Nasal Screen MRSA (PCR) Adenovirus (PCR) B. pertussis DNA (PCR) B.parapertussis DNA PCR C. pneumoniae DNA (PCR) Coronavirus OC43 (PCR) Coronavirus HKU1 (PCR) Coronavirus 229E (PCR) COVID-19 PCR Coronavirus NL63 (PCR) Hepatitis C Ab Screen Human Metapneumovir PCR Influenza Type A (PCR) Influ A Molecular Assay Influenza Type B (PCR) Influ B Molecular Assay M. pneumoniae (PCR) Parainfluenza 1 (PCR) Parainfluenza 2 (PCR) Parainfluenza 3 (PCR) Parainfluenza 4 (PCR) RSV (PCR) Entero/Rhino (PCR) 05/23/20 12:01 WBC RBC Hgb Hct MCV MCH MCHC RDW Std Deviation RDW Coeff of Minnie Plt Count MPV Immature Gran % (Auto) Neut % (Auto) Lymph % (Auto) [place] % (Auto) Eos % (Auto) Baso % (Auto) Neut # (Auto) Lymph # (Auto) [place] # (Auto) Eos # (Auto) Baso # (Auto) Immature Gran # (Auto) RBC Morphology PT INR APTT PTT Ratio D-Dimer Sodium Potassium Chloride Carbon Dioxide Anion Gap BUN Creatinine Est Cr Clr Drug Dosing Est GFR ( Amer) Est GFR (Non-Af Amer) BUN/Creatinine Ratio Glucose POC Glucose 108 H Estimat Average Glucose Hemoglobin A1c Lactate Calcium Magnesium Total Bilirubin AST ALT Alkaline Phosphatase Total Creatine Kinase Troponin I Total Protein Albumin Globulin Albumin/Globulin Ratio Procalcitonin Nasal Screen MRSA (PCR) Adenovirus (PCR) B. pertussis DNA (PCR) B.parapertussis DNA PCR C. pneumoniae DNA (PCR) Coronavirus OC43 (PCR) Coronavirus HKU1 (PCR) Coronavirus 229E (PCR) COVID-19 PCR Coronavirus NL63 (PCR) Hepatitis C Ab Screen Human Metapneumovir PCR Influenza Type A (PCR) Influ A Molecular Assay Influenza Type B (PCR) Influ B Molecular Assay M. pneumoniae (PCR) Parainfluenza 1 (PCR) Parainfluenza 2 (PCR) Parainfluenza 3 (PCR) Parainfluenza 4 (PCR) RSV (PCR) Entero/Rhino (PCR)
[2020-05-23] MEDS ORDERED: POTASSIUM CITRATE 10 MEQ TAB PO ONE (13:00)
[2020-05-23] MEDS: SODIUM CHLORIDE 0.9% 500 ML IV SCH ×2 (14:27→23:30)
[2020-05-23] MEDS: ATORVASTATIN 40 MG TAB PO SCH (20:42)
[2020-05-23] MEDS ORDERED: INSULIN GLARGINE SOLOSTAR 100 UNITS/ML 3 ML PEN SQ SCH (21:00)
[2020-05-24] MEDS: SODIUM CHLORIDE 0.9% 500 ML IV SCH ×2 (02:37→19:03)
[2020-05-24] MEDS: LEVOTHYROXINE SODIUM 137 MCG TABLET PO SCH (06:04)
[2020-05-24] MEDS: ACETAMINOPHEN 325 MG TAB PO PRN (06:04)
[2020-05-24] MEDS: CARBOHYDRATES FOR HYPOGLYCEMIA PO PRN ×3 (06:10→21:30)
[2020-05-24] MEDS: HEPARIN SOD 5,000 UNIT/0.5 ML VIAL SQ SCH ×3 (06:23→21:15)
[2020-05-24 06:36] LABS: Hematocrit (blood only) 26.3 % (42-52); Hemoglobin 8.3 g/dL (14.0-18.0); Mean Corpuscular Hemoglobin 27.3 pg (25-34); Mean Corpuscular Hgb Conc 31.6 g/dL (32-36); Mean Corpuscular Volume 86.5 fL (80-100); Mean Platelet Volume 8.9 fL (7.4-10.4); Platelet Count 320 K/uL (130-400); RDW Coefficient of Variation 16.7 % (11.5-14.5); RDW Standard Deviation 53.3 fL (36.4-46.3); Red Blood Count 3.04 M/uL (4.7-6.1); White Blood Count 6.77 K/uL (4.8-10.8)
[2020-05-24 07:08] LABS: Albumin Level 2.3 gm/dl (3.4-5.0); BUN Creatinine Ratio 9.6 (10-20); Bilirubin,Total 0.3 mg/dl (0.2-1); Calcium 7.9 mg/dl (8.5-10.1); Globulin 4.3 gm/dl (2.5-4.0); Magnesium 1.9 mg/dl (1.8-2.4); Phosphorus 2.4 mg/dl (2.5-4.9); Total Protein 6.6 gm/dl (6.4-8.2)
[2020-05-24 09:29] LABS: Creatinine Clr Calc Pharmacy 33.2 ml/min; Est GFR (African American) 28.8; Est GFR (Non-African American) 24.9
[2020-05-24 09:30] LABS: Albumin Globulin Ratio 0.5 (0.9-2)
[2020-05-24] MEDS: cefTRIAXone SODIUM 2,000 MG in DEXTROSE 5% 50 ML IV SCH (10:10)
[2020-05-24] MEDS: DOXYCYCLINE HYCLATE 100 MG in DEXTROSE 5% 100 ML IV SCH ×2 (10:10→21:35)
[2020-05-24] MEDS: NEPHROCAPS PO SCH (10:11)
[2020-05-24] MEDS: GABAPENTIN 600 MG TAB PO SCH ×4 (10:11→21:34)
[2020-05-24] MEDS: FLUDROCORTISONE ACETATE 0.1 MG TAB PO SCH (10:11)
[2020-05-24] MEDS: FLUoxetine HCL 20 MG CAP PO SCH (10:11)
[2020-05-24] MEDS: ASPIRIN 81 MG ECTAB PO SCH (10:11)
[2020-05-24] MEDS: INSULIN ASPART 100 UNITS/ML 3 ML PEN SC SCH ×5 (10:25→21:14)
[2020-05-24] MEDS: INSULIN GLARGINE SOLOSTAR 100 UNITS/ML 3 ML PEN SQ SCH (10:26)
--- NOTE | 2020-05-24 10:44 | Hospitalist Progress Note ---
Date of Service May 24, 2020 Assessment & Plan (1) Pneumonia: +COVID CXR reports small left pleural effusion and left lung base consolidation Continue ceft and doxy Due to increased oxygen requirement, I discussed with Marriage Therapist Dr Lawson He recommends starting dexamethasone 6mg po Patient not a candidate for remdesivir due to renal function Will monitor blood glucose with steroid therapy Repeat CXR today reports trace left pleural effusion and improving left lung consolidation Continue to monitor oxygenation DD dimer was elevated. Negative dopplers Will continue hep sq q8h for DVT ppx for now (2) XOCHITL (acute kidney injury): Cr is 2.44>>2.7 XOCHITL vs CKD since last blood work we have is from 2 yrs ago when Cr was 1 Got some IVF Encouraged to drink (3) Diabetes mellitus type I: Continue insulin and lantus A1c is 8.3 Was hypoglycemic this AM. RN asked to hold AM lantus Hypoglycemic episode likely due to poor intake Will monitor especially with initiating (4) Hypothyroidism: Continue levothyroxine (5) Hypertension: Poorly controlled Lisinopril on hold for now due to possible XOCHITL Give amlodipine Admission and Anticipated Discharge Date Admission Date: May 22, 2020 Subjective Patient seen and examined Patient reports cough is same but shortness of getting worse Per RN, patient's ox sats dropped to <90 overnight and was started on nasal oxygen Denied any fevers, chills Still reports poor appetite and anorexia Denied any chest pain Denied any abd pain, diarrhea, constipation Physical Exam Constitutional: + well hydrated; no acute distress Eyes: PERRL, conjunctivae normal, anicteric sclerae ENMT: external ear and nose normal, oropharynx normal Respiratory: normal respiratory effort; no respiratory distress On nasal oxygen at 2l/min. Mild Left lung crackles Cardiovascular: RRR, no murmur, no edema Gastrointestinal (Abdomen): normal bowel sounds, soft, nontender, no hepatospl enomegaly Neurologic: PERRL, EOMI, accommodation nl, no face palsy, no dysarthria Genitourinary: no CVA tenderness Results & Data Results & Data ([facility]) Vital Signs (Past 12 Hours) Vital Signs Temp Pulse Pulse Resp BP Pulse Ox 05/24/20 08:09 36.9 C 78 18 160/77 H 89 L 05/24/20 00:06 36.9 C 76 18 152/75 H 94 05/23/20 23:59 73 Laboratory Results Laboratory Results - last 24 hr 05/23/20 05/23/20 05/23/20 16:51 17:45 20:40 WBC RBC Hgb Hct MCV MCH MCHC RDW Std Deviation RDW Coeff of Minnie Plt Count MPV Sodium Potassium 3.4 L Chloride Carbon Dioxide Anion Gap BUN Creatinine Est Cr Clr Drug Dosing Est GFR ( Amer) Est GFR (Non-Af Amer) BUN/Creatinine Ratio Glucose POC Glucose 82 108 H Calcium Phosphorus Magnesium Total Bilirubin AST ALT Alkaline Phosphatase NT-Pro-B Natriuret Pep Total Protein Albumin Globulin Albumin/Globulin Ratio 05/24/20 05/24/20 05/24/20 06:01 06:17 06:17 WBC 6.77 RBC 3.04 L Hgb 8.3 L Hct 26.3 L MCV 86.5 MCH 27.3 MCHC 31.6 L RDW Std Deviation 53.3 H RDW Coeff of Minnie 16.7 H Plt Count 320 MPV 8.9 Sodium 144 Potassium 4.0 D Chloride 111 H Carbon Dioxide 28 Anion Gap 5.0 BUN 26 H Creatinine 2.73 H Est Cr Clr Drug Dosing 33.2 Est GFR ( Amer) 28.8 Est GFR (Non-Af Amer) 24.9 BUN/Creatinine Ratio 9.6 L Glucose 44 L* POC Glucose 43 L* Calcium 7.9 L Phosphorus 2.4 L Magnesium 1.9 Total Bilirubin 0.3 AST 24 ALT 23 Alkaline Phosphatase 105 NT-Pro-B Natriuret Pep Total Protein 6.6 Albumin 2.3 L Globulin 4.3 H Albumin/Globulin Ratio 0.5 L 05/24/20 05/24/20 06:34 11:04 WBC RBC Hgb Hct MCV MCH MCHC RDW Std Deviation RDW Coeff of Minnie Plt Count MPV Sodium Potassium Chloride Carbon Dioxide Anion Gap BUN Creatinine Est Cr Clr Drug Dosing Est GFR ( Amer) Est GFR (Non-Af Amer) BUN/Creatinine Ratio Glucose POC Glucose 74 Calcium Phosphorus Magnesium Total Bilirubin AST ALT Alkaline Phosphatase NT-Pro-B Natriuret Pep 1908 H Total Protein Albumin Globulin Albumin/Globulin Ratio (1) Hypertension Hypertension type: essential hypertension Qualified Code(s): I10 - Essential (primary) hypertension
--- NOTE | 2020-05-24 11:29 | XRay Report ---
XR chest 1V portable HISTORY: 55 years-old Male Hypoxia. Reassess acute hypoxia COMPARISON: Chest radiograph 05/22/2020, CTA chest 12/09/2016 TECHNIQUE: Portable AP view of the chest FINDINGS: Cardiomediastinal and hilar silhouettes are within normal limits. Mild emphysema. No pneumothorax, la rge pleural effusion or overt pulmonary edema. Trace left pleural effusion with persistent moderately improved left lung base consolidation. Degenerative changes of the shoulders and spine. IMPRESSION: 1. Trace left pleural effusion with moderately improved left lung base consolidation suggestive of re solving pneumonia. One month follow-up chest radiograph recommended to document complete resolution. 2. Mild emphysema. ACT 112: Negative or not required by law. The above report was generated using voice recognition software. It may contain grammatical, syntax o r spelling errors. Electronically signed by: Jabari Leong M.D. 05/24/2020 11:28 AM
[2020-05-24] MEDS: dexAMETHasone 4 MG TAB PO SCH (11:30)
[2020-05-24] MEDS ORDERED: amLODIPine BESYLATE 5 MG TAB PO ONE (12:39)
[2020-05-24] MEDS ORDERED: PHARMACY GLYCEMIC MGMT CONSULT PRN (15:07)
[2020-05-24] MEDS: SODIUM CHLORIDE 0.9% 1000ML 1,000 ML IV SCH (19:03)
[2020-05-24] MEDS: ATORVASTATIN 40 MG TAB PO SCH (21:34)
[2020-05-25] MEDS: HEPARIN SOD 5,000 UNIT/0.5 ML VIAL SQ SCH ×3 (05:53→20:45)
[2020-05-25] MEDS: LEVOTHYROXINE SODIUM 137 MCG TABLET PO SCH (05:54)
[2020-05-25 07:06] LABS: Hematocrit (blood only) 25.7 % (42-52); Hemoglobin 8.4 g/dL (14.0-18.0); Mean Corpuscular Hemoglobin 27.5 pg (25-34); Mean Corpuscular Hgb Conc 32.7 g/dL (32-36); Mean Corpuscular Volume 84.3 fL (80-100); Platelet Count 283 K/uL (130-400); RDW Coefficient of Variation 16.4 % (11.5-14.5); RDW Standard Deviation 50.9 fL (36.4-46.3); Red Blood Count 3.05 M/uL (4.7-6.1); White Blood Count 3.49 K/uL (4.8-10.8)
[2020-05-25 07:46] LABS: Albumin Level 1.9 gm/dl (3.4-5.0); BUN Creatinine Ratio 12.6 (10-20); C Reactive Protein 4.59 mg/dl (0-0.29); Calcium 7.5 mg/dl (8.5-10.1); Creatinine Clr Calc Pharmacy 32.8 ml/min; Est GFR (African American) 28.5; Est GFR (Non-African American) 24.5; Magnesium 1.8 mg/dl (1.8-2.4); Potassium 3.6 mmol/L (3.5-5.1)
[2020-05-25 07:50] LABS: Albumin Globulin Ratio 0.5 (0.9-2); Bilirubin,Total 0.2 mg/dl (0.2-1); Ferritin 54.3 ng/ml (8-388); Globulin 4.1 gm/dl (2.5-4.0); Phosphorus 3.8 mg/dl (2.5-4.9)
[2020-05-25] MEDS: cefTRIAXone SODIUM 2,000 MG in DEXTROSE 5% 50 ML IV SCH (08:37)
[2020-05-25] MEDS: DOXYCYCLINE HYCLATE 100 MG in DEXTROSE 5% 100 ML IV SCH ×2 (08:38→21:08)
[2020-05-25] MEDS: FLUoxetine HCL 20 MG CAP PO SCH (08:51)
[2020-05-25] MEDS: NEPHROCAPS PO SCH (08:54)
[2020-05-25] MEDS: FLUDROCORTISONE ACETATE 0.1 MG TAB PO SCH (08:54)
[2020-05-25] MEDS: ASPIRIN 81 MG ECTAB PO SCH (08:55)
[2020-05-25] MEDS: dexAMETHasone 4 MG TAB PO SCH (08:56)
[2020-05-25] MEDS: GABAPENTIN 600 MG TAB PO SCH ×4 (08:57→21:04)
[2020-05-25] MEDS: ONDANSETRON INJ 2 MG/ML 2 ML VIAL IV PRN (09:05)
[2020-05-25] MEDS: INSULIN ASPART 100 UNITS/ML 3 ML PEN SC SCH ×5 (09:44→23:26)
--- NOTE | 2020-05-25 11:04 | Consultation Report ---
DATE OF CONSULTATION: 05/25/2020 NEPHROLOGY CONSULTATION NOTE REASON FOR CONSULT: Acute renal failure in a patient who is positive for COVID-19. HISTORY OF PRESENT ILLNESS: The patient is a 55-year-old male with type 1 diabetes, hyperlipidemia, depression, anemia, hypothyroidism and multiple complications related to diabetes as well as cardiac disease, admitted from [facility] because of fever. The patient was noted to be hypoxic and was positive for COVID-19 pneumonia. He does have a right lower lobe pneumonia also. Renal function was worse than baseline with a creatinine in the mid 2 to high 2s at this time, but fairly stable for the last 3 days. At baseline, renal function is close to being normal, but he has had many episodes of acute renal failure. At this time, patient seems to be requiring some oxygen. He is making urine. ALLERGIES: None. PAST MEDICAL AND SURGICAL HISTORY: Reviewed in detail and includes as detailed in the HPI. Past surgical history of incision and drainage of the right gluteal abscess. MEDICATIONS: At the residential include aspirin, Lipitor, vitamins, fludrocortisone 0.3 mg daily, Prozac, gabapentin, Lantus, Xopenex, levothyroxine, lisinopril, Zofran, vitamin D. FAMILY HISTORY: Not available. SOCIAL HISTORY: Currently a resident of [facility]. He used to smoke in the past, quit few years ago. REVIEW OF SYSTEMS: He had positive fever, shortness of breath, hypoxia, some GI symptoms, poor appetite, headache and nausea. Otherwise, 12 systems reviewed and negative. PHYSICAL EXAMINATION: GENERAL: The patient is of moderate built. He is not in overt respiratory distress. He is awake, alert, oriented x3 and was able to give me a detailed account of his medical problem. VITAL SIGNS: Temperature 36.6 degrees Celsius, 96% on 2 liter nasal cannula, pulse rate 77, respiratory rate 18. CHEST: Bilateral clear to auscultation. CARDIOVASCULAR: S1, S2 regular. ABDOMEN: Soft, nontender. EXTREMITIES: Show no edema. LABORATORY TESTS: BUN 35, creatinine 2.76. Sodium 139, potassium 3.6, carbon dioxide 26, chloride 107. Hemoglobin 8.4. Chest x-ray shows trace left pleural effusion with moderately improved left lung base consolidation suggestive of resolving pneumonia. No evidence of overt congestive heart failure. ASSESSMENT AND PLAN: A 55-year-old male with multiple medical problems at baseline, but normal renal function, who presented from the residential with fever, hypoxia and was found to be COVID-19 positive. 1. Acute renal failure. This is a fairly mild acute renal failure. Creatinine has been in the mid 2 to high 2s now for 3 days and does not seem to be getting worse very rapidly. He is making urine. He is hemodynamically stable. He does not have any evidence of fluid overload or major electrolyte problem or acid base imbalance needing dialysis. 2. Continue daily laboratories. 3. We do need a urinalysis to further categorize the renal failure. His blood glucose seems to be running quite high and needs to be controlled better. 4. Pneumonia with left lower consolidation in a COVID-19 positive patient, being addressed by the primary team. BRITTAD
[2020-05-25] MEDS ORDERED: INSULIN GLARGINE SOLOSTAR 100 UNITS/ML 3 ML PEN SQ STA ×2 (11:08→11:09)
--- NOTE | 2020-05-25 11:18 | Pharmacy Report ---
Glycemic Control Consultation - Date of Service May 25, 2020 - Scope Scope: Glycemic Pharmacist consulted for glycemic control and to write orders per [facility] inpatient glycemic control protocol. - Objective Weight: 86.5 kg Accuchecks BSG (last 24hrs): 05/24/20 05/24/20 05/24/20 11:49 16:42 20:34 Glucose POC Glucose 247 H 240 H 61 L* 05/24/20 05/24/20 05/24/20 20:35 20:37 21:08 Glucose POC Glucose 57 L* 59 L* 55 L* 05/24/20 05/24/20 05/25/20 21:37 22:07 06:28 Glucose 284 H POC Glucose 60 L* 107 H 05/25/20 05/25/20 07:38 07:38 Glucose POC Glucose 324 H* 321 H* Laboratory Data (last 24hrs): 05/25/20 06:28 Potassium 3.6 Carbon Dioxide 26 Anion Gap 6.0 Creatinine 2.76 H Est Cr Clr Drug Dosing 32.8 HbA1c: Hemoglobin A1c 8.3 % (4.5-5.6) H 05/23/20 05:24 - Recent Pertinent Medications Outpatient Anti-diabetic Regimen: * Lantus 15 units SC qAM, 8 units SC qPM * A1c = 8.3 % on 05/23/20 Risk Factors for Insulin Resistance: * Steroids: dexamethasone 6 mg po daily, started 05/24 * Infection: COVID-19, possible superimposed PNA * Diet: T1DM - Assessment & Plan Assessment & Plan: ASSESSMENT: * 55 yo M with T1DM admitted with COVID-19 and possible superimposed PNA * BSG's initially adequately controlled on 05/23, except AM hypoglycemia. * Severe AM hypoglycemia noted 05/24 AM prompted significant reduction in Lantus (from total of 23 to 15 units/24 hours yesterday). This reduction caused hyperglycemia this AM - will increase Lantus * Dexamethasone initiated 05/24 which caused hyperglycemia in the evening which prompted significant tightening of Novolog parameters. This tightening caused mild hypoglycemia last evening - Novolog parameters were loosened at that time. No further changes for now. May need to be tightened slightly later * IV insulin indicated due to better control BSG's but will give as one-time boluses given COVID positivity PLAN FOR INPATIENT GLYCEMIC CONTROL: * Insulin regular 5 units IV x1 now. May require additional IV insulin later today. * Basal insulin * Lantus 22 units SQ x1 today * Bolus insulin * NovoLog per scale ACHS with two overnight checks * Goal Range: Low 110 mg/dL - High 140 mg/dL * Correction Factor: 25 mg/dL/unit * Nutritional / Prandial insulin per carb ratio of 1 unit per 9 grams CHO consumed * Please note that the plan above was derived based on current level of insulin resistance and hospital stress. These recommendations are appropriate for inpatient admission only. Plan of care upon discharge will need to be reassessed to avoid potential outpatient hypo/hyperglycemia. Thank you.
[2020-05-25] MEDS: amLODIPine BESYLATE 5 MG TAB PO SCH (12:06)
[2020-05-25] MEDS ORDERED: INSULIN HUMAN REGULAR PER UNIT 5 UNITS in SYRINGE 4.95 ML IV ONE (13:30)
--- NOTE | 2020-05-25 14:33 | Hospitalist Progress Note ---
Date of Service May 25, 2020 Assessment & Plan (1) Pneumonia: +COVID CXR reports small left pleural effusion and left lung base consolidation Continue ceft and doxy Continue dexamethasone 6mg po Patient not a candidate for remdesivir due to renal function Continue to manage blood glucose Wean oxygen as tolerated DD dimer was elevated. Negative dopplers Will continue hep sq q8h for DVT ppx for now (2) XOCHITL (acute kidney injury): Cr is 2.44>>2.7 XOCHITL vs CKD since last blood work we have is from 2 yrs ago when Cr was 1 Food Products Tester evaluation appreciated (3) Diabetes mellitus type I: Continue insulin and lantus A1c is 8.3 Has had hypoglycemic episodes likely due to poor po intake Has been hyperglycemic this AM likely with steroid therapy Continue to optimize glycemic control pharmacist on board (4) Hypothyroidism: Continue levothyroxine (5) Hypertension: Poorly controlled Lisinopril on hold for now due to possible XOCHITL Continue amlodipine Admission and Anticipated Discharge Date Admission Date: May 22, 2020 Subjective Patient seen and examined. Reports cough and shortness of breath is same No chest pain, fevers, chills, vomiting Reports mild headache Denied any blurred vision, dizziness Denied any abd pain, diarrhea or constipation Physical Exam Constitutional: + well hydrated; no acute distress Eyes: PERRL, conjunctivae normal, anicteric sclerae ENMT: external ear and nose normal, oropharynx normal Respiratory: normal respiratory effort; no respiratory distress On nasal oxygen 2l/min, clear to auscultation bilaterally Cardiovascular: RRR, no murmur, no edema Gastrointestinal (Abdomen): normal bowel sounds, soft, nontender, no hepatosplenomegaly Skin: Psoariatic lesions on dorsum of left hand and both feet Neurologic: PERRL, EOMI, accommodation nl, no face palsy, no dysarthria Genitourinary: no CVA tenderness Results & Data Results & Data ([facility]) Vital Signs (Past 12 Hours) Vital Signs Temp Pulse Resp BP Pulse Ox 05/25/20 12:03 36.8 C 71 18 145/72 H 97 05/25/20 07:40 36.6 C 77 18 181/90 H 96 05/25/20 04:57 36.6 C 74 20 166/82 H 93 Laboratory Results Laboratory Results - last 24 hr 05/24/20 05/24/20 05/24/20 16:42 20:34 20:35 WBC RBC Hgb Hct MCV MCH MCHC RDW Std Deviation RDW Coeff of Minnie Plt Count MPV Sodium Potassium Chloride Carbon Dioxide Anion Gap BUN Creatinine Est Cr Clr Drug Dosing Est GFR ( Amer) Est GFR (Non-Af Amer) BUN/Creatinine Ratio Glucose POC Glucose 240 H 61 L* 57 L* Calcium Phosphorus Magnesium Ferritin Total Bilirubin AST ALT Alkaline Phosphatase C-Reactive Protein Total Protein Albumin Globulin Albumin/Globulin Ratio Procalcitonin 05/24/20 05/24/20 05/24/20 20:37 21:08 21:37 WBC RBC Hgb Hct MCV MCH MCHC RDW Std Deviation RDW Coeff of Minnie Plt Count MPV Sodium Potassium Chloride Carbon Dioxide Anion Gap BUN Creatinine Est Cr Clr Drug Dosing Est GFR ( Amer) Est GFR (Non-Af Amer) BUN/Creatinine Ratio Glucose POC Glucose 59 L* 55 L* 60 L* Calcium Phosphorus Magnesium Ferritin Total Bilirubin AST ALT Alkaline Phosphatase C-Reactive Protein Total Protein Albumin Globulin Albumin/Globulin Ratio Procalcitonin 05/24/20 05/25/20 05/25/20 22:07 06:28 06:28 WBC 3.49 L RBC 3.05 L Hgb 8.4 L Hct 25.7 L MCV 84.3 MCH 27.5 MCHC 32.7 RDW Std Deviation 50.9 H RDW Coeff of Minnie 16.4 H Plt Count 283 MPV 9.0 Sodium 139 Potassium 3.6 Chloride 107 Carbon Dioxide 26 Anion Gap 6.0 BUN 35 H Creatinine 2.76 H Est Cr Clr Drug Dosing 32.8 Est GFR ( Amer) 28.5 Est GFR (Non-Af Amer) 24.5 BUN/Creatinine Ratio 12.6 Glucose 284 H POC Glucose 107 H Calcium 7.5 L Phosphorus 3.8 D Magnesium 1.8 Ferritin 54.3 Total Bilirubin 0.2 AST 27 ALT 25 Alkaline Phosphatase 94 C-Reactive Protein 4.59 H Total Protein 6.0 L Albumin 1.9 L Globulin 4.1 H Albumin/Globulin Ratio 0.5 L Procalcitonin 05/25/20 05/25/20 05/25/20 06:28 07:38 07:38 WBC RBC Hgb Hct MCV MCH MCHC RDW Std Deviation RDW Coeff of Minnie Plt Count MPV Sodium Potassium Chloride Carbon Dioxide Anion Gap BUN Creatinine Est Cr Clr Drug Dosing Est GFR ( Amer) Est GFR (Non-Af Amer) BUN/Creatinine Ratio Glucose POC Glucose 324 H* 321 H* Calcium Phosphorus Magnesium Ferritin Total Bilirubin AST ALT Alkaline Phosphatase C-Reactive Protein Total Protein Albumin Globulin Albumin/Globulin Ratio Procalcitonin 0.14 05/25/20 14:15 WBC RBC Hgb Hct MCV MCH MCHC RDW Std Deviation RDW Coeff of Minnie Plt Count MPV Sodium Potassium Chloride Carbon Dioxide Anion Gap BUN Creatinine Est Cr Clr Drug Dosing Est GFR ( Amer) Est GFR (Non-Af Amer) BUN/Creatinine Ratio Glucose POC Glucose 287 H Calcium Phosphorus Magnesium Ferritin Total Bilirubin AST ALT Alkaline Phosphatase C-Reactive Protein Total Protein Albumin Globulin Albumin/Globulin Ratio Procalcitonin (1) Hypertension Hypertension type: essential hypertension Qualified Code(s): I10 - Essential (primary) hypertension
[2020-05-25] MEDS: hydrALAZINE HCL 25 MG TAB PO SCH ×2 (17:07→21:04)
[2020-05-25] MEDS: ACETAMINOPHEN 325 MG TAB PO PRN (17:14)
[2020-05-25] MEDS: ATORVASTATIN 40 MG TAB PO SCH (21:04)
[2020-05-25 23:43] LABS: Appearance Urine Clear (Clear); Bacteria Urine Automated Negative (Negative); Bilirubin Urine Negative (Negative); Blood Urine Trace (Negative); Color Urine Yellow; Glucose Urine UA 1+ (Negative); Ketones Urine Trace (Negative); Leukocyte Esterase Urine Negative (Negative); Nitrite Urine Negative (Negative); Protein Urine 3+ (Negative); RBC Urine Automated 0-4 /hpf (0-4); Specific Gravity Urine 1.023 (1.000-1.030); Urobilinogen Urine Negative (Negative); pH Urine 5.5 (4.5-7.5)
[2020-05-26] MEDS: LEVOTHYROXINE SODIUM 137 MCG TABLET PO SCH (04:47)
[2020-05-26] MEDS: INSULIN ASPART 100 UNITS/ML 3 ML PEN SC SCH ×5 (04:58→21:06)
[2020-05-26] MEDS: HEPARIN SOD 5,000 UNIT/0.5 ML VIAL SQ SCH ×3 (04:59→21:06)
[2020-05-26 05:56] LABS: Hematocrit (blood only) 25.6 % (42-52); Hemoglobin 8.6 g/dL (14.0-18.0); Mean Corpuscular Hgb Conc 33.6 g/dL (32-36); Mean Corpuscular Volume 83.4 fL (80-100); Mean Platelet Volume 8.9 fL (7.4-10.4); Platelet Count 319 K/uL (130-400); RDW Coefficient of Variation 16.3 % (11.5-14.5); RDW Standard Deviation 50.4 fL (36.4-46.3); Red Blood Count 3.07 M/uL (4.7-6.1); White Blood Count 7.04 K/uL (4.8-10.8)
[2020-05-26 06:32] LABS: Albumin Globulin Ratio 0.5 (0.9-2); Albumin Level 1.9 gm/dl (3.4-5.0); BUN Creatinine Ratio 14.6 (10-20); Bilirubin,Total 0.2 mg/dl (0.2-1); Calcium 7.8 mg/dl (8.5-10.1); Creatinine Clr Calc Pharmacy 32.1 ml/min; Est GFR (African American) 27.7; Est GFR (Non-African American) 23.9; Globulin 4.1 gm/dl (2.5-4.0)
[2020-05-26] MEDS ORDERED: INSULIN GLARGINE SOLOSTAR 100 UNITS/ML 3 ML PEN SQ ONE (08:00)
[2020-05-26] MEDS: DOXYCYCLINE HYCLATE 100 MG in DEXTROSE 5% 100 ML IV SCH ×2 (08:03→20:09)
[2020-05-26] MEDS: cefTRIAXone SODIUM 2,000 MG in DEXTROSE 5% 50 ML IV SCH (08:03)
[2020-05-26] MEDS: FLUoxetine HCL 20 MG CAP PO SCH (08:04)
[2020-05-26] MEDS: GABAPENTIN 600 MG TAB PO SCH ×4 (08:04→20:08)
[2020-05-26] MEDS: ASPIRIN 81 MG ECTAB PO SCH (08:04)
[2020-05-26] MEDS: NEPHROCAPS PO SCH (08:05)
[2020-05-26] MEDS: hydrALAZINE HCL 25 MG TAB PO SCH ×3 (08:05→20:09)
[2020-05-26] MEDS: amLODIPine BESYLATE 5 MG TAB PO SCH (08:05)
[2020-05-26] MEDS: dexAMETHasone 4 MG TAB PO SCH (08:05)
[2020-05-26] MEDS: FLUDROCORTISONE ACETATE 0.1 MG TAB PO SCH (08:06)
[2020-05-26] MEDS ORDERED: POTASSIUM CHLORIDE 20 MEQ/15 ML UDC PO STA (08:15)
[2020-05-26] MEDS: ONDANSETRON INJ 2 MG/ML 2 ML VIAL IV PRN ×2 (09:46→16:58)
--- NOTE | 2020-05-26 10:19 | Pharmacy Report ---
Pharmacy Glycemic Short Note 2 - Date of Service May 26, 2020 - Glycemic Short BSG Results (Last 24 hours): 05/25/20 05/25/20 05/25/20 11:59 14:15 16:18 Glucose POC Glucose 305 H* 287 H 264 H 05/25/20 05/25/20 05/26/20 20:41 23:16 04:46 Glucose POC Glucose 230 H 240 H 218 H 05/26/20 05/26/20 05:44 07:47 Glucose 204 H POC Glucose 191 H Outpatient Anti-diabetic Regimen: * Lantus 15 units SC qAM, 8 units SC qPM * A1c = 8.3 % on 05/23/20 Risk Factors for Insulin Resistance: * Steroids: dexamethasone 6 mg po daily, day 3 of anticipated 10 day course (for COVID-19) * Infection: COVID-19, possible superimposed PNA * Diet: T1DM ASSESSMENT: 05/26/20 * Stressors stable (see above) * BSG's gradually but steadily trended down yesterday after increase in Lantus in AM and tightening of Novolog parameters in PM. * Now with BSG of 191 mg/dL this AM * Will cautiously increase Lantus due to AM hyperglycemia and also 9 units of correctional insulin needed overnight. This dose may precipitate hypoglycemia in the AM were it not for the dexamethasone ordered, therefore ordered to be given simultaneously * Will continue with the current Novolog parameters as they were already tightened last evening * Plan for IV bolus for any BSG > 300 mg/dL - would like to continue to avoid standard-protocol insulin drip unless necessary due to need for hourly encounters/adjustments in COVID positive patient. BSG trend is reasonable at this time therefore OK for now. 05/25/20 * 55 yo M with T1DM admitted with COVID-19 and possible superimposed PNA * BSG's initially adequately controlled on 05/23, except AM hypoglycemia. * Severe AM hypoglycemia noted 05/24 AM prompted significant reduction in Lantus (from total of 23 to 15 units/24 hours yesterday). This reduction caused hyperglycemia this AM - will increase Lantus * Dexamethasone initiated 05/24 which caused hyperglycemia in the evening which prompted significant tightening of Novolog parameters. This tightening caused mild hypoglycemia last evening - Novolog parameters were loosened at that time. No further changes for now. May need to be tightened slightly later * IV insulin indicated due to better control BSG's but will give as one-time boluses given COVID positivity PLAN FOR INPATIENT GLYCEMIC CONTROL: * Basal insulin * Lantus 25 units SQ x1. Will continue to order one-time doses instead of scheduling * Bolus insulin * NovoLog per scale ACHS or Q6hrs while NPO * Goal Range: Low 110 mg/dL - High 140 mg/dL * Correction Factor: 20 mg/dL/unit * Nutritional / Prandial insulin per carb ratio of 1 unit per 7 grams CHO consumed Plan for discharge: Dependent on whether patient will be discharged on steroids
--- NOTE | 2020-05-26 11:01 | Progress Notes ---
DATE: 05/26/2020 NEPHROLOGY PROGRESS NOTE SUBJECTIVE: Overnight, no new issues. He continues to be very mildly hypoxic, but at this time is not on oxygen. OBJECTIVE: VITAL SIGNS: Blood pressure 141/41, 94% on room air, temperature 36.7, pulse rate 65. He is making urine, although it is not accurately charted. HEENT: Mucous membrane is moist. NECK: Supple. No jugular venous distention. CHEST: Bilateral clear to auscultation. CARDIOVASCULAR: S1, S2 regular. ABDOMEN: Soft, nontender. EXTREMITIES: Show no edema. LABORATORY TEST: From this morning was reviewed and shows creatinine of 2.82, which is very slightly worse than yesterday, but it really has not changed much, it was 2.49 on admission 4 days ago and has barely moved since then. Potassium was low this morning at 3.0. ASSESSMENT AND PLAN: A 55-year-old male with multiple medical problems at baseline, but normal renal function, who presented from the [facility] with fever, hypoxia and was found to be COVID-19 positive. 1. Acute renal failure: The acute component is fairly mild. Creatinine has only gone up by 0.4 in 5 days and he is making urine. He seems to be hemodynamically stable. 2. Hypokalemia secondary to poor appetite, but he is also on Florinef, which is fludrocortisone. This lowers potassium and will be stopped for the time being. He already received 40 mEq of potassium.
--- NOTE | 2020-05-26 14:21 | Hospitalist Progress Note ---
Date of Service May 26, 2020 Assessment & Plan (1) Pneumonia: +COVID CXR reports small left pleural effusion and left lung base consolidation Continue ceft and doxy Continue dexamethasone 6mg po Patient not a candidate for remdesivir due to renal function Continue to manage blood glucose Wean oxygen as tolerated Will need ambulatory pulse ox on discharge DD dimer was elevated. Negative dopplers Will continue hep sq q8h for DVT ppx for now (2) XOCHITL (acute kidney injury): Cr is 2.44>>2.7>>2.82 XOCHITL on CKD [facility] He stated patient has CKD and last lab work in 12/2019 showed cr of 2.32 Due to poor oral intake today, will give 1L IVF NSS at 80cc/h Monitor Cr and avoid nephrotoxins Supervisor Production evaluation appreciated Replete hypokalemia (3) Diabetes mellitus type I: Continue insulin and lantus A1c is 8.3 Has had hypoglycemic episodes likely due to poor po intake Has been hyperglycemic likely with steroid therapy Continue to optimize glycemic control pharmacist on board (4) Hypothyroidism: Continue levothyroxine (5) Hypertension: Poorly controlled Lisinopril on hold for now due to XOCHITL Continue amlodipine Admission and Anticipated Discharge Date Admission Date: May 22, 2020 Subjective Patient seen and examined Reports cough, shortness of breath Reports anorexia, abd discomfort. Had nausea earlier which has resolved Denied any chest pain Denied any diarrhea, constipation Reports mild headache and dizziness Physical Exam Constitutional: + well hydrated; no acute distress Eyes: PERRL, conjunctivae normal, anicteric sclerae ENMT: external ear and nose normal, oropharynx normal Respiratory: normal respiratory effort; no respiratory distress Auscultation: lungs clear to auscultation bilaterally Cardiovascular: RRR, no murmur, no edema Gastrointestinal (Abdomen): normal bowel sounds, soft, nontender, no hepatosplenomegaly Musculoskeletal: Psoariatic lesions Neurologic: PERRL, EOMI, accommodation nl, no face palsy, no dysarthria Genitourinary: no CVA tenderness Results & Data Results & Data ([facility]) Vital Signs (Past 12 Hours) Vital Signs Temp Pulse Pulse Resp BP Pulse Ox 05/26/20 11:48 37 C 74 18 151/76 H 89 L 05/26/20 08:45 93 05/26/20 08:40 65 05/26/20 07:49 36.7 C 74 18 141/41 H 94 05/26/20 04:44 36.6 C 66 140/74 91 Laboratory Results Laboratory Results - last 24 hr 05/25/20 05/25/20 05/25/20 11:59 14:15 16:18 WBC RBC Hgb Hct MCV MCH MCHC RDW Std Deviation RDW Coeff of Minnie Plt Count MPV Sodium Potassium Chloride Carbon Dioxide Anion Gap BUN Creatinine Est Cr Clr Drug Dosing Est GFR ( Amer) Est GFR (Non-Af Amer) BUN/Creatinine Ratio Glucose POC Glucose 305 H* 287 H 264 H Calcium Total Bilirubin AST ALT Alkaline Phosphatase Total Protein Albumin Globulin Albumin/Globulin Ratio Urine Color Urine Appearance Urine pH Ur Specific [place] Urine Protein Urine Glucose (UA) Urine Ketones Urine Blood Urine Nitrite Urine Bilirubin Urine Urobilinogen Ur Leukocyte Esterase Urine WBC (Auto) Urine RBC (Auto) U Hyaline Cast (Auto) U Epithel Cells (Auto) Urine Bacteria (Auto) 05/25/20 05/25/20 05/25/20 20:41 23:05 23:16 WBC RBC Hgb Hct MCV MCH MCHC RDW Std Deviation RDW Coeff of Minnie Plt Count MPV Sodium Potassium Chloride Carbon Dioxide Anion Gap BUN Creatinine Est Cr Clr Drug Dosing Est GFR ( Amer) Est GFR (Non-Af Amer) BUN/Creatinine Ratio Glucose POC Glucose 230 H 240 H Calcium Total Bilirubin AST ALT Alkaline Phosphatase Total Protein Albumin Globulin Albumin/Globulin Ratio Urine Color Yellow Urine Appearance Clear Urine pH 5.5 Ur Specific [place] 1.023 Urine Protein 3+ H Urine Glucose (UA) 1+ H Urine Ketones Trace H Urine Blood Trace H Urine Nitrite Negative Urine Bilirubin Negative Urine Urobilinogen Negative Ur Leukocyte Esterase Negative Urine WBC (Auto) 1-5 Urine RBC (Auto) 0-4 U Hyaline Cast (Auto) 1-5 U Epithel Cells (Auto) 10-20 H Urine Bacteria (Auto) Negative 05/26/20 05/26/20 05/26/20 04:46 05:44 05:44 WBC 7.04 RBC 3.07 L Hgb 8.6 L Hct 25.6 L MCV 83.4 MCH 28.0 MCHC 33.6 RDW Std Deviation 50.4 H RDW Coeff of Minnie 16.3 H Plt Count 319 MPV 8.9 Sodium 139 Potassium 3.0 L D Chloride 106 Carbon Dioxide 25 Anion Gap 8.0 BUN 41 H Creatinine 2.82 H Est Cr Clr Drug Dosing 32.1 Est GFR ( Amer) 27.7 Est GFR (Non-Af Amer) 23.9 BUN/Creatinine Ratio 14.6 Glucose 204 H POC Glucose 218 H Calcium 7.8 L Total Bilirubin 0.2 AST 27 ALT 28 Alkaline Phosphatase 89 Total Protein 6.0 L Albumin 1.9 L Globulin 4.1 H Albumin/Globulin Ratio 0.5 L Urine Color Urine Appearance Urine pH Ur Specific [place] Urine Protein Urine Glucose (UA) Urine Ketones Urine Blood Urine Nitrite Urine Bilirubin Urine Urobilinogen Ur Leukocyte Esterase Urine WBC (Auto) Urine RBC (Auto) U Hyaline Cast (Auto) U Epithel Cells (Auto) Urine Bacteria (Auto) 05/26/20 05/26/20 07:47 11:47 WBC RBC Hgb Hct MCV MCH MCHC RDW Std Deviation RDW Coeff of Minnie Plt Count MPV Sodium Potassium Chloride Carbon Dioxide Anion Gap BUN Creatinine Est Cr Clr Drug Dosing Est GFR ( Amer) Est GFR (Non-Af Amer) BUN/Creatinine Ratio Glucose POC Glucose 191 H 226 H Calcium Total Bilirubin AST ALT Alkaline Phosphatase Total Protein Albumin Globulin Albumin/Globulin Ratio Urine Color Urine Appearance Urine pH Ur Specific [place] Urine Protein Urine Glucose (UA) Urine Ketones Urine Blood Urine Nitrite Urine Bilirubin Urine Urobilinogen Ur Leukocyte Esterase Urine WBC (Auto) Urine RBC (Auto) U Hyaline Cast (Auto) U Epithel Cells (Auto) Urine Bacteria (Auto) (1) Hypertension Hypertension type: essential hypertension Qualified Code(s): I10 - Essential (primary) hypertension
[2020-05-26] MEDS: SODIUM CHLORIDE 0.9% 1000ML 1,000 ML IV SCH (15:15)
[2020-05-26] MEDS: ACETAMINOPHEN 325 MG TAB PO PRN (16:57)
[2020-05-26] MEDS: ATORVASTATIN 40 MG TAB PO SCH (20:08)
[2020-05-27] MEDS: SODIUM CHLORIDE 0.9% 1000ML 1,000 ML IV SCH (04:28)
[2020-05-27] MEDS: LEVOTHYROXINE SODIUM 137 MCG TABLET PO SCH (06:01)
[2020-05-27] MEDS: HEPARIN SOD 5,000 UNIT/0.5 ML VIAL SQ SCH ×3 (06:10→22:32)
[2020-05-27 06:27] LABS: Hemoglobin 8.6 g/dL (14.0-18.0); Mean Corpuscular Hemoglobin 26.9 pg (25-34); Mean Corpuscular Hgb Conc 31.9 g/dL (32-36); Mean Corpuscular Volume 84.4 fL (80-100); Platelet Count 382 K/uL (130-400); RDW Coefficient of Variation 16.5 % (11.5-14.5); RDW Standard Deviation 51.4 fL (36.4-46.3); White Blood Count 7.82 K/uL (4.8-10.8)
[2020-05-27 06:59] LABS: C Reactive Protein 2.34 mg/dl (0-0.29); Calcium 7.4 mg/dl (8.5-10.1); Creatinine Clr Calc Pharmacy 26.1 ml/min; Est GFR (African American) 21.6; Est GFR (Non-African American) 18.6; Magnesium 1.8 mg/dl (1.8-2.4); Potassium 3.7 mmol/L (3.5-5.1)
[2020-05-27] MEDS ORDERED: INSULIN GLARGINE SOLOSTAR 100 UNITS/ML 3 ML PEN SQ ONE ×2 (08:15→08:30)
[2020-05-27] MEDS: cefTRIAXone SODIUM 2,000 MG in DEXTROSE 5% 50 ML IV SCH (08:26)
[2020-05-27] MEDS: DOXYCYCLINE HYCLATE 100 MG in DEXTROSE 5% 100 ML IV SCH (08:26)
[2020-05-27] MEDS: dexAMETHasone 4 MG TAB PO SCH (08:26)
[2020-05-27] MEDS: amLODIPine BESYLATE 5 MG TAB PO SCH (08:27)
[2020-05-27] MEDS: ASPIRIN 81 MG ECTAB PO SCH (08:27)
[2020-05-27] MEDS: FLUoxetine HCL 20 MG CAP PO SCH (08:27)
[2020-05-27] MEDS: NEPHROCAPS PO SCH (08:27)
[2020-05-27] MEDS: hydrALAZINE HCL 25 MG TAB PO SCH ×3 (08:28→21:12)
[2020-05-27] MEDS: GABAPENTIN 600 MG TAB PO SCH ×4 (08:29→21:12)
[2020-05-27] MEDS: ONDANSETRON INJ 2 MG/ML 2 ML VIAL IV PRN (08:36)
[2020-05-27] MEDS: INSULIN ASPART 100 UNITS/ML 3 ML PEN SC SCH ×4 (08:48→22:32)
--- NOTE | 2020-05-27 10:06 | Progress Notes ---
DATE: 05/27/2020 NEPHROLOGY PROGRESS NOTE SUBJECTIVE: Overnight, no new issues. He continues to be very mildly hypoxic, but he is eating and drinking normally. He is making urine, which appears normal appearing. However, renal function continues to get worse. He did get IV fluid yesterday. OBJECTIVE: VITAL SIGNS: Blood pressure is 169/83, temperature 36.8, 90% on 2 liter nasal cannula. I did not do physical examination today to conserve critically needed protective equipment for COVID-19,.examination inferred from yesterday. LABORATORY TEST: From this morning was reviewed in detail and shows rising creatinine and is up to 3.47, BUN is 49, potassium 3.7. Sodium 138, calcium 7.4. C-reactive protein is up to 2.34 now. ASSESSMENT AND PLAN: A 55-year-old male with multiple medical problems at baseline, but normal renal function, who [facility] with fever, hypoxia and was found to be COVID-19 positive. Acute renal failure: Creatinine continues to rise. This is not a case of volume depletion. Acute renal failure secondary to acute tubular necrosis in the setting of COVID-19 infection. Potassium seems to be better today with the use of supplement, continue that. Continue daily laboratories. Rising creatinine is a concerning finding in a patient with COVID-19 and is associated with higher mortality. Given the rising creatinine, he is definitely not stable for discharge yet. We may even have to do dialysis in the coming days if the creatinine continues to rise. MTDD
--- NOTE | 2020-05-27 11:28 | Pharmacy Report ---
Pharmacy Glycemic Short Note 2 - Date of Service May 27, 2020 - Glycemic Short BSG Results (Last 24 hours): 05/26/20 05/26/20 05/26/20 11:47 16:41 20:07 Glucose POC Glucose 226 H 155 H 194 H 05/27/20 05/27/20 05:13 07:47 Glucose 296 H POC Glucose 314 H* Outpatient Anti-diabetic Regimen: * Lantus 15 units SC qAM, 8 units SC qPM * A1c = 8.3 % on 05/23/20 Risk Factors for Insulin Resistance: * Steroids: dexamethasone 6 mg po daily, day 3 of anticipated 10 day course (for COVID-19) * Infection: COVID-19, possible superimposed PNA * Diet: T1DM ASSESSMENT: 05/27/20 * Stressors stable (see above), except possible XOCHITL noted today * AM fasting BSG significantly elevated - will increase Lantus and add two overnight checks tonight * Post-prandial BSG's >180 mg/dL x2 yesterday - will tighten Novolog CHO ratio 05/26/20 * Stressors stable (see above) * BSG's gradually but steadily trended down yesterday after increase in Lantus in AM and tightening of Novolog parameters in PM. * Now with BSG of 191 mg/dL this AM * Will cautiously increase Lantus due to AM hyperglycemia and also 9 units of correctional insulin needed overnight. This dose may precipitate hypoglycemia in the AM were it not for the dexamethasone ordered, therefore ordered to be given simultaneously * Will continue with the current Novolog parameters as they were already tightened last evening * Plan for IV bolus for any BSG > 300 mg/dL - would like to continue to avoid standard-protocol insulin drip unless necessary due to need for hourly encounters/adjustments in COVID positive patient. BSG trend is reasonable at this time therefore OK for now. 05/25/20 * 55 yo M with T1DM admitted with COVID-19 and possible superimposed PNA * BSG's initially adequately controlled on 05/23, except AM hypoglycemia. * Severe AM hypoglycemia noted 05/24 AM prompted significant reduction in Lantus (from total of 23 to 15 units/24 hours yesterday). This reduction caused hyperglycemia this AM - will increase Lantus * Dexamethasone initiated 05/24 which caused hyperglycemia in the evening which prompted significant tightening of Novolog parameters. This tightening caused mild hypoglycemia last evening - Novolog parameters were loosened at that time. No further changes for now. May need to be tightened slightly later * IV insulin indicated due to better control BSG's but will give as one-time nuvia luses given COVID positivity PLAN FOR INPATIENT GLYCEMIC CONTROL: * Basal insulin * Lantus 25 units SQ x1. Will continue to order one-time doses instead of s cheduling * Bolus insulin * NovoLog per scale ACHS or Q6hrs while NPO * Goal Range: Low 110 mg/dL - High 140 mg/dL * Correction Factor: 20 mg/dL/unit * Nutritional / Prandial insulin per carb ratio of 1 unit per 7 grams CHO consumed Plan for discharge: Dependent on whether patient will be discharged on steroids
[2020-05-27] MEDS: ACETAMINOPHEN 325 MG TAB PO PRN (12:05)
--- NOTE | 2020-05-27 15:04 | Hospitalist Progress Note ---
Date of Service May 27, 2020 Assessment & Plan (1) Pneumonia: +COVID CXR reports small left pleural effusion and left lung base consolidation Continue ceft and doxy Continue dexamethasone 6mg po Patient not a candidate for remdesivir due to renal function Continue to manage blood glucose Obtained consent for convalescent plasma (05/27/20), will transfuse 1 unit Wean oxygen as tolerated Will need ambulatory pulse ox on discharge DD dimer was elevated at 1490. Negative dopplers Will continue heparin sq q8h for DVT ppx for now (2) XOCHITL (acute kidney injury): Cr is 2.44>>2.7>>2.82, however now 3.5 XOCHITL on CKD Spoke to physician at senior living facility He stated patient has CKD and last lab work in 12/2019 showed cr of 2.32 Due to poor oral intake yesterday received 1L IVF NSS at 80cc/h Monitor Cr and avoid nephrotoxins Door Patcher evaluation appreciated - ATN, worsening Cr, concern for poss. need for dialysis, no need for extra IV fluids Replete hypokalemia (3) Diabetes mellitus type I: Continue insulin and lantus A1c is 8.3 Has had hypoglycemic episodes likely due to poor po intake Has been hyperglycemic likely with steroid therapy Continue to optimize glycemic control pharmacist on board (4) Hypothyroidism: Continue levothyroxine (5) Hypertension: now controlled Lisinopril on hold for now due to XOCHITL Continue amlodipine Admission and Anticipated Discharge Date Admission Date: May 22, 2020 Subjective Sitting up in bed in NAD. using suppl. O2. At baseline he does not use any oxygen. Cr increased today. Nephrology following. Pt reports normal urination and normal urine output. Denies fever, chills, chest pain, abd. pain. some nausea. Obtained consent for convalescent plasma. Review of Systems Review of Systems: All systems reviewed & are unremarkable except as noted in HPI & below Constitutional: no fever and no chills Respiratory: + cough and + dyspnea (improved) Cardiovascular: no chest pain and no palpitations Gastrointestinal: no abdominal pain, no nausea and no vomiting Physical Exam Physical Exam: Constitutional: + well hydrated; no acute distress Eyes: PERRL, EOMI, conjunctivae normal, anicteric sclerae ENMT: external ear and nose normal, oropharynx normal Respiratory: normal respiratory effort; no respiratory distress Auscultation: lungs clear to auscultation bilaterally Cardiovascular: RRR, no murmur, no edema Gastrointestinal (Abdomen): normal bowel sounds, soft, nontender, no hepatosplenomegaly Musculoskeletal: moves extremities Neurologic: PERRL, EOMI, no face palsy, no dysarthria Genitourinary: no CVA tenderness Skin: warm, dry, Psoariatic lesions Results & Data Results & Data ([facility]) Vital Signs (Past 12 Hours) Vital Signs Temp Pulse Pulse Resp BP BP Pulse Ox 05/27/20 11:59 36.7 C 79 18 130/64 90 05/27/20 08:19 36.8 C 80 19 169/83 H 90 05/27/20 08:00 68 05/27/20 05:08 36.6 C 77 17 146/76 H 91 Laboratory Results 05/27/20 05/27/20 05/27/20 Range/Units 11:55 07:47 05:13 WBC (4.8-10.8) K/uL RBC (4.7-6.1) M/uL Hgb (14.0-18.0) g/dL Hct (42-52) % MCV (80-100) fL MCH (25-34) pg MCHC (32-36) g/dL RDW Std Deviation (36.4-46.3) fL RDW Coeff of Minnie (11.5-14.5) % Plt Count (130-400) K/uL MPV (7.4-10.4) fL Sodium 138 (136-145) mmol/L Potassium 3.7 D (3.5-5.1) mmol/L Chloride 108 H (98-107) mmol/L Carbon Dioxide 23 (21-32) mmol/L Anion Gap 7.0 (3-11) BUN 49 H (7-18) mg/dl Creatinine 3.47 H D (0.6-1.4) mg/dl Est Cr Clr Drug Dosing 26.1 ml/min Est GFR ( Amer) 21.6 Est GFR (Non-Af Amer) 18.6 BUN/Creatinine Ratio 14.0 (10-20) Glucose 296 H (70-99) mg/dl POC Glucose 240 H 314 H* (70-99) mg/dl Calcium 7.4 L (8.5-10.1) mg/dl Magnesium 1.8 (1.8-2.4) mg/dl C-Reactive Protein 2.34 H (0-0.29) mg/dl 05/27/20 05/26/20 05/26/20 Range/Units 05:13 20:07 16:41 WBC 7.82 (4.8-10.8) K/uL RBC 3.20 L (4.7-6.1) M/uL Hgb 8.6 L (14.0-18.0) g/dL Hct 27.0 L (42-52) % MCV 84.4 (80-100) fL MCH 26.9 (25-34) pg MCHC 31.9 L (32-36) g/dL RDW Std Deviation 51.4 H (36.4-46.3) fL RDW Coeff of Minnie 16.5 H (11.5-14.5) % Plt Count 382 (130-400) K/uL MPV 10.0 (7.4-10.4) fL Sodium (136-145) mmol/L Potassium (3.5-5.1) mmol/L Chloride (98-107) mmol/L Carbon Dioxide (21-32) mmol/L Anion Gap (3-11) BUN (7-18) mg/dl Creatinine (0.6-1.4) mg/dl Est Cr Clr Drug Dosing ml/min Est GFR ( Amer) Est GFR (Non-Af Amer) BUN/Creatinine Ratio (10-20) Glucose (70-99) mg/dl POC Glucose 194 H 155 H (70-99) mg/dl Calcium (8.5-10.1) mg/dl Magnesium (1.8-2.4) mg/dl C-Reactive Protein (0-0.29) mg/dl Medications Administered Current Inpatient Medications Acetaminophen (Acetaminophen 325 Mg Tab) 650 mg PO Q4H PRN PRN Reason: Pain or Fever Stop: 06/22/20 00:45 Last Admin: 05/27/20 12:05 Dose: 650 mg Documented by: Amlodipine Besylate (Amlodipine Besylate 5 Mg Tab) 10 mg PO QAM [facility] Stop: 06/24/20 08:59 Last Admin: 05/27/20 08:27 Dose: 10 mg Documented by: Aspirin (Aspirin 81 Mg Ectab) 81 mg PO DAILY [facility] Stop: 06/22/20 08:59 Last Admin: 05/27/20 08:27 Dose: 81 mg Documented by: Atorvastatin Calcium (Atorvastatin 40 Mg Tab) 80 mg PO HS MARY Stop: 06/22/20 20:59 Last Admin: 05/26/20 20:08 Dose: 80 mg Documented by: Dexamethasone (Dexamethasone 4 Mg Tab) 6 mg PO DAILY MARY Stop: 06/03/20 11:14 Last Admin: 05/27/20 08:26 Dose: 6 mg Documented by: Dextrose (Dextrose 50% 50 Ml Syringe) 25 - 50 ml IV UD PRN; Protocol PRN Reason: Hypoglycemia Protocol Stop: 06/22/20 01:29 Fluoxetine HCl (Fluoxetine Hcl 20 Mg Cap) 40 mg PO DAILY MARY Stop: 06/22/20 08:59 Last Admin: 05/27/20 08:27 Dose: 40 mg Documented by: Gabapentin (Gabapentin 600 Mg Tab) 600 mg PO QID MARY Stop: 06/22/20 08:59 Last Admin: 05/27/20 11:59 Dose: 600 mg Documented by: Glucagon (Glucagon For Inj 1 Mg Vial) 1 mg SQ UD PRN; Protocol PRN Reason: Hypoglycemia Protocol Stop: 06/22/20 01:29 Glucose (Glucose 40% Gel 15 Gm Tube) 15 - 30 gm PO UD PRN; Protocol PRN Reason: Hypoglycemia Protocol Stop: 06/22/20 01:29 Glucose (Glucose 10 Tabs/Tube) 4 - 8 tabs PO UD PRN; Protocol PRN Reason: Hypoglycemia Protocol Stop: 06/22/20 01:29 Heparin Sodium (Porcine) (Heparin Sod 5,000 Unit/0.5 Ml Vial) 5,000 units SQ Q8 MARY Stop: 06/22/20 05:59 Last Admin: 05/27/20 06:10 Dose: 5,000 units Documented by: Hydralazine HCl (Hydralazine Hcl 25 Mg Tab) 25 mg PO TID MARY Stop: 06/24/20 13:59 Last Admin: 05/27/20 08:28 Dose: 25 mg Documented by: Ceftriaxone Sodium 2,000 mg/ (Dextrose) 70 mls @ 100 mls/hr IV Q24H MARY; Protocol Stop: 05/30/20 07:59 Last Infusion: 05/27/20 09:13 Dose: Infused Documented by: Doxycycline Hyclate 100 mg/ (Dextrose) 110 mls @ 50 mls/hr IV Q12H [facility] Stop: 05/30/20 08:59 Last Infusion: 05/27/20 10:46 Dose: Infused Documented by: Insulin Aspart (Insulin Aspart 100 Units/Ml 3 Ml Pen) 0 units SC ACHS [facility] Stop: 06/22/20 07:29 Last Admin: 05/27/20 12:12 Dose: 9 units Documented by: Insulin Aspart (Insulin Aspart 100 Units/Ml 3 Ml Pen) 0 units SC TODAY@0000,0400 [facility] Stop: 05/28/20 04:01 Levalbuterol HCl (Levalbuterol Tartrate 15 Gm Hfa.Aer.Ad) 2 puffs INH QID PRN PRN Reason: Wheezing Stop: 05/30/20 08:17 Levothyroxine Sodium (Levothyroxine Sodium 137 Mcg Tablet) [facility] Stop: 06/22/20 06:29 Last Admin: 05/27/20 06:01 Dose: 137 mcg Documented by: Miscellaneous (Carbohydrates For Hypoglycemia ) 15 - 30 gm PO UD PRN PRN Reason: Hypoglycemia Treatment Stop: 06/22/20 01:29 Last Admin: 05/24/20 21:30 Dose: 15 gm Documented by: Miscellaneous Information (Pharmacy Glycemic Mgmt Consult) 1 ea N/A UD PRN PRN Reason: Consult Stop: 06/23/20 15:06 Nitroglycerin (Nitroglycerin Sl 0.4 Mg/Tab Tab) 0.4 mg SL UD PRN PRN Reason: Chest Pain Stop: 06/22/20 00:45 Ondansetron HCl (Ondansetron Inj 2 Mg/Ml 2 Ml Vial) 4 mg IV Q6H PRN PRN Reason: Nausea Stop: 06/22/20 00:45 Last Admin: 05/27/20 08:36 Dose: 4 mg Documented by: Vitamin B Complex/Folic Acid (Nephrocaps) 1 cap PO DAILY [facility] Stop: 06/22/20 08:59 Last Admin: 05/27/20 08:27 Dose: 1 cap Documented by: (1) Hypertension Hypertension type: essential hypertension Qualified Code(s): I10 - Essential (primary) hypertension
[2020-05-27] MEDS ORDERED: ACETAMINOPHEN 325 MG TAB PO SCH (17:50)
[2020-05-27] MEDS ORDERED: FUROSEMIDE 40 MG in SYRINGE 0 ML IV ONE (18:30)
[2020-05-27] MEDS: PANTOprazole 40 MG TAB PO SCH (21:12)
[2020-05-27] MEDS: ATORVASTATIN 40 MG TAB PO SCH (21:12)
[2020-05-27] MEDS: DOXYCYCLINE HYCLATE 100 MG CAP PO SCH (21:12)
[2020-05-28] MEDS: INSULIN ASPART 100 UNITS/ML 3 ML PEN SC SCH ×6 (00:25→21:59)
[2020-05-28] MEDS ORDERED: INSULIN ASPART 100 UNITS/ML 3 ML PEN SC ONE (02:00)
[2020-05-28] MEDS: HEPARIN SOD 5,000 UNIT/0.5 ML VIAL SQ SCH ×3 (04:32→21:43)
[2020-05-28] MEDS: LEVOTHYROXINE SODIUM 137 MCG TABLET PO SCH (04:32)
[2020-05-28 06:10] LABS: Hematocrit (blood only) 27.7 % (42-52); Hemoglobin 9.1 g/dL (14.0-18.0); Mean Corpuscular Hemoglobin 27.6 pg (25-34); Mean Corpuscular Hgb Conc 32.9 g/dL (32-36); Mean Corpuscular Volume 83.9 fL (80-100); Mean Platelet Volume 9.2 fL (7.4-10.4); Platelet Count 378 K/uL (130-400); RDW Coefficient of Variation 16.8 % (11.5-14.5); RDW Standard Deviation 51.6 fL (36.4-46.3); White Blood Count 8.55 K/uL (4.8-10.8)
[2020-05-28 06:39] LABS: BUN Creatinine Ratio 15.7 (10-20); Calcium 7.7 mg/dl (8.5-10.1); Creatinine Clr Calc Pharmacy 26.5 ml/min; Potassium 3.5 mmol/L (3.5-5.1)
[2020-05-28 06:42] LABS: Albumin Globulin Ratio 0.4 (0.9-2); Bilirubin,Total 0.2 mg/dl (0.2-1); Globulin 4.5 gm/dl (2.5-4.0); Phosphorus 3.4 mg/dl (2.5-4.9); Total Protein 6.5 gm/dl (6.4-8.2)
[2020-05-28] MEDS ORDERED: POTASSIUM CHLORIDE 10 MEQ TABCR PO STA (07:15)
--- NOTE | 2020-05-28 07:15 | Hospitalist Progress Note ---
Date of Service May 28, 2020 Assessment & Plan (1) Pneumonia: +COVID CXR reports small left pleural effusion and left lung base consolidation Continue ceft and doxy Continue dexamethasone 6mg po Patient not a candidate for remdesivir due to renal function Continue to manage blood glucose Obtained consent for convalescent plasma (05/27/20), and provided pt with FDA EUA fact sheet for convalescent plasma Will transfuse 1 unit (pt has not received it yet) Wean oxygen as tolerated Will need ambulatory pulse ox on discharge DD dimer was elevated at 1490. Negative dopplers Will continue heparin sq q8h for DVT ppx for now (2) XOCHITL (acute kidney injury): Cr is 2.44>>2.7>>2.82, however now 3.4 (essentially unchanged from yesterday) XOCHITL on CKD Spoke to physician at [facility] facility He stated patient has CKD and last lab work in 12/2019 showed Cr of 2.32 Due to poor oral intake received 1L IVF NSS at 80cc/h Monitor Cr and avoid nephrotoxins Security Sergeant evaluation appreciated - ATN, worsening Cr, concern for poss. need for dialysis, no need for extra IV fluids Replete hypokalemia (3) Diabetes mellitus type I: Continue insulin and lantus A1c is 8.3 Has had hypoglycemic episodes likely due to poor po intake Has been hyperglycemic likely with steroid therapy Continue to optimize glycemic control pharmacist on board (4) Hypothyroidism: Continue levothyroxine (5) Hypertension: now controlled Lisinopril on hold for now due to XOCHITL Continue amlodipine Admission and Anticipated Discharge Date Admission Date: May 22, 2020 Subjective Obtained consent for convalescent plasma on 05/27. Not received yet. Cr increased but essentially unchanged from yesterday. Nephrology following. No increased shortness of breath. But pt is on 4L/min and reports cough. Review of Systems Review of Systems: All systems reviewed & are unremarkable except as noted in HPI & below Constitutional: no fever and no chills Respiratory: + cough and + dyspnea (improved) Cardiovascular: no chest pain and no palpitations Gastrointestinal: no abdominal pain, no nausea and no vomiting Physical Exam Physical Exam: Constitutional: + well hydrated; no acute distress Eyes: PERRL, EOMI, conjunctivae normal, anicteric sclerae ENMT: external ear and nose normal, oropharynx normal Respiratory: normal respiratory effort; no respiratory distress Auscultation: lungs clear to auscultation bilaterally Cardiovascular: RRR, no murmur, no edema Gastrointestinal (Abdomen): normal bowel sounds, soft, nontender Musculoskeletal: moves extremities Neurologic: PERRL, EOMI, no face palsy, no dysarthria Genitourinary: no CVA tenderness Skin: warm, dry, Psoriatic lesions Results & Data Results & Data ([facility]) Vital Signs (Past 12 Hours) Vital Signs Temp Pulse Resp BP Pulse Ox 05/28/20 04:08 36.8 C 74 18 143/74 H 93 05/28/20 00:00 36.6 C 87 18 137/72 93 05/27/20 19:33 36.6 C 84 20 121/63 95 Laboratory Results 05/28/20 05/28/20 05/28/20 Range/Units 05:47 05:47 04:07 WBC 8.55 (4.8-10.8) K/uL RBC 3.30 L (4.7-6.1) M/uL Hgb 9.1 L (14.0-18.0) g/dL Hct 27.7 L (42-52) % MCV 83.9 (80-100) fL MCH 27.6 (25-34) pg MCHC 32.9 (32-36) g/dL RDW Std Deviation 51.6 H (36.4-46.3) fL RDW Coeff of Minnie 16.8 H (11.5-14.5) % Plt Count 378 (130-400) K/uL MPV 9.2 (7.4-10.4) fL Sodium 140 (136-145) mmol/L Potassium 3.5 (3.5-5.1) mmol/L Chloride 109 H (98-107) mmol/L Carbon Dioxide 22 (21-32) mmol/L Anion Gap 9.0 (3-11) BUN 53 H (7-18) mg/dl Creatinine 3.41 H (0.6-1.4) mg/dl Est Cr Clr Drug Dosing 26.5 ml/min Est GFR ( Amer) 22.0 Est GFR (Non-Af Amer) 19.0 BUN/Creatinine Ratio 15.7 (10-20) Glucose 203 H (70-99) mg/dl POC Glucose 216 H (70-99) mg/dl Calcium 7.7 L (8.5-10.1) mg/dl Phosphorus 3.4 (2.5-4.9) mg/dl Magnesium 2.0 (1.8-2.4) mg/dl Total Bilirubin 0.2 (0.2-1) mg/dl AST 27 (15-37) U/L ALT 34 (12-78) U/L Alkaline Phosphatase 93 (45-117) U/L Total Protein 6.5 (6.4-8.2) gm/dl Albumin 2.0 L (3.4-5.0) gm/dl Globulin 4.5 H (2.5-4.0) gm/dl Albumin/Globulin Ratio 0.4 L (0.9-2) Blood Type Antibody Screen 05/28/20 05/27/20 05/27/20 Range/Units 00:20 21:11 18:23 WBC (4.8-10.8) K/uL RBC (4.7-6.1) M/uL Hgb (14.0-18.0) g/dL Hct (42-52) % MCV (80-100) fL MCH (25-34) pg MCHC (32-36) g/dL RDW Std Deviation (36.4-46.3) fL RDW Coeff of Minnie (11.5-14.5) % Plt Count (130-400) K/uL MPV (7.4-10.4) fL Sodium (136-145) mmol/L Potassium (3.5-5.1) mmol/L Chloride (98-107) mmol/L Carbon Dioxide (21-32) mmol/L Anion Gap (3-11) BUN (7-18) mg/dl Creatinine (0.6-1.4) mg/dl Est Cr Clr Drug Dosing ml/min Est GFR ( Amer) Est GFR (Non-Af Amer) BUN/Creatinine Ratio (10-20) Glucose (70-99) mg/dl POC Glucose 221 H 174 H (70-99) mg/dl Calcium (8.5-10.1) mg/dl Phosphorus (2.5-4.9) mg/dl Magnesium (1.8-2.4) mg/dl Total Bilirubin (0.2-1) mg/dl AST (15-37) U/L ALT (12-78) U/L Alkaline Phosphatase (45-117) U/L Total Protein (6.4-8.2) gm/dl Albumin (3.4-5.0) gm/dl Globulin (2.5-4.0) gm/dl Albumin/Globulin Ratio (0.9-2) Blood Type A Positive Antibody Screen NEGATIVE 05/27/20 05/27/20 05/27/20 Range/Units 16:37 11:55 07:47 WBC (4.8-10.8) K/uL RBC (4.7-6.1) M/uL Hgb (14.0-18.0) g/dL Hct (42-52) % MCV (80-100) fL MCH (25-34) pg MCHC (32-36) g/dL RDW Std Deviation (36.4-46.3) fL RDW Coeff of Minnie (11.5-14.5) % Plt Count (130-400) K/uL MPV (7.4-10.4) fL Sodium (136-145) mmol/L Potassium (3.5-5.1) mmol/L Chloride (98-107) mmol/L Carbon Dioxide (21-32) mmol/L Anion Gap (3-11) BUN (7-18) mg/dl Creatinine (0.6-1.4) mg/dl Est Cr Clr Drug Dosing ml/min Est GFR ( Amer) Est GFR (Non-Af Amer) BUN/Creatinine Ratio (10-20) Glucose (70-99) mg/dl POC Glucose 98 240 H 314 H* (70-99) mg/dl Calcium (8.5-10.1) mg/dl Phosphorus (2.5-4.9) mg/dl Magnesium (1.8-2.4) mg/dl Total Bilirubin (0.2-1) mg/dl AST (15-37) U/L ALT (12-78) U/L Alkaline Phosphatase (45-117) U/L Total Protein (6.4-8.2) gm/dl Albumin (3.4-5.0) gm/dl Globulin (2.5-4.0) gm/dl Albumin/Globulin Ratio (0.9-2) Blood Type Antibody Screen Medications Administered Current Inpatient Medications Acetaminophen (Acetaminophen 325 Mg Tab) 650 mg PO Q4H PRN PRN Reason: Pain or Fever Stop: 06/22/20 00:45 Last Admin: 05/27/20 12:05 Dose: 650 mg Documented by: Amlodipine Besylate (Amlodipine Besylate 5 Mg Tab) 10 mg PO QAM [facility] Stop: 06/24/20 08:59 Last Admin: 05/27/20 08:27 Dose: 10 mg Documented by: Aspirin (Aspirin 81 Mg Ectab) 81 mg PO DAILY MARY Stop: 06/22/20 08:59 Last Admin: 05/27/20 08:27 Dose: 81 mg Documented by: Atorvastatin Calcium (Atorvastatin 40 Mg Tab) 80 mg PO HS [facility] Stop: 06/22/20 20:59 Last Admin: 05/27/20 21:12 Dose: 80 mg Documented by: Dexamethasone (Dexamethasone 4 Mg Tab) 6 mg PO DAILY [facility] Stop: 06/03/20 11:14 Last Admin: 05/27/20 08:26 Dose: 6 mg Documented by: Dextrose (Dextrose 50% 50 Ml Syringe) 25 - 50 ml IV UD PRN; Protocol PRN Reason: Hypoglycemia Protocol Stop: 06/22/20 01:29 Doxycycline Hyclate (Doxycycline Hyclate 100 Mg Cap) 100 mg PO BID [facility] Stop: 06/03/20 20:59 Last Admin: 05/27/20 21:12 Dose: 100 mg Documented by: Fluoxetine HCl (Fluoxetine Hcl 20 Mg Cap) 40 mg PO DAILY [facility] Stop: 06/22/20 08:59 Last Admin: 05/27/20 08:27 Dose: 40 mg Documented by: Gabapentin (Gabapentin 600 Mg Tab) 600 mg PO QID [facility] Stop: 06/22/20 08:59 Last Admin: 05/27/20 21:12 Dose: 600 mg Documented by: Glucagon (Glucagon For Inj 1 Mg Vial) 1 mg SQ UD PRN; Protocol PRN Reason: Hypoglycemia Protocol Stop: 06/22/20 01:29 Glucose (Glucose 40% Gel 15 Gm Tube) 15 - 30 gm PO UD PRN; Protocol PRN Reason: Hypoglycemia Protocol Stop: 06/22/20 01:29 Glucose (Glucose 10 Tabs/Tube) 4 - 8 tabs PO UD PRN; Protocol PRN Reason: Hypoglycemia Protocol Stop: 06/22/20 01:29 Heparin Sodium (Porcine) (Heparin Sod 5,000 Unit/0.5 Ml Vial) 5,000 units SQ Q8 [facility] Stop: 06/22/20 05:59 Last Admin: 05/28/20 04:32 Dose: 5,000 units Documented by: Hydralazine HCl (Hydralazine Hcl 25 Mg Tab) 25 mg PO TID [facility] Stop: 06/24/20 13:59 Last Admin: 05/27/20 21:12 Dose: 25 mg Documented by: Ceftriaxone Sodium 2,000 mg/ (Dextrose) 70 mls @ 100 mls/hr IV Q24H [facility]; Protocol Stop: 05/30/20 07:59 Last Infusion: 05/27/20 09:13 Dose: Infused Documented by: Insulin Aspart (Insulin Aspart 100 Units/Ml 3 Ml Pen) 0 units SC ACHS [facility] Stop: 06/22/20 07:29 Last Admin: 05/27/20 22:32 Dose: 2 units Documented by: Levalbuterol HCl (Levalbuterol Tartrate 15 Gm Hfa.Aer.Ad) 2 puffs INH QID PRN PRN Reason: Wheezing Stop: 05/30/20 08:17 Levothyroxine Sodium (Levothyroxine Sodium 137 Mcg Tablet) 137 mcg PO DAILYBB [facility] Stop: 06/22/20 06:29 Last Admin: 05/28/20 04:32 Dose: 137 mcg Documented by: Miscellaneous (Carbohydrates For Hypoglycemia ) 15 - 30 gm PO UD PRN PRN Reason: Hypoglycemia Treatment Stop: 06/22/20 01:29 Last Admin: 05/24/20 21:30 Dose: 15 gm Documented by: Miscellaneous Information (Pharmacy Glycemic Mgmt Consult) 1 ea N/A UD PRN PRN Reason: Consult Stop: 06/23/20 15:06 Nitroglycerin (Nitroglycerin Sl 0.4 Mg/Tab Tab) 0.4 mg SL UD PRN PRN Reason: Chest Pain Stop: 06/22/20 00:45 Ondansetron HCl (Ondansetron Inj 2 Mg/Ml 2 Ml Vial) 4 mg IV Q6H PRN PRN Reason: Nausea Stop: 06/22/20 00:45 Last Admin: 05/27/20 08:36 Dose: 4 mg Documented by: Pantoprazole Sodium (Pantoprazole 40 Mg Tab) 40 mg PO QAM [facility] Stop: 06/26/20 18:29 Last Admin: 05/27/20 21:12 Dose: 40 mg Documented by: Vitamin B Complex/Folic Acid (Nephrocaps) 1 cap PO DAILY [facility] Stop: 06/22/20 08:59 Last Admin: 05/27/20 08:27 Dose: 1 cap Documented by: (1) Hypertension Hypertension type: essential hypertension Qualified Code(s): I10 - Essential (primary) hypertension
[2020-05-28] MEDS: PANTOprazole 40 MG TAB PO SCH (09:36)
[2020-05-28] MEDS: GABAPENTIN 600 MG TAB PO SCH ×4 (09:36→21:41)
[2020-05-28] MEDS: amLODIPine BESYLATE 5 MG TAB PO SCH (09:36)
[2020-05-28] MEDS: dexAMETHasone 4 MG TAB PO SCH (09:36)
[2020-05-28] MEDS: ASPIRIN 81 MG ECTAB PO SCH (09:36)
[2020-05-28] MEDS: hydrALAZINE HCL 25 MG TAB PO SCH ×3 (09:37→21:42)
[2020-05-28] MEDS: NEPHROCAPS PO SCH (09:37)
[2020-05-28] MEDS: DOXYCYCLINE HYCLATE 100 MG CAP PO SCH ×2 (09:38→21:43)
[2020-05-28] MEDS: FLUoxetine HCL 20 MG CAP PO SCH (09:39)
[2020-05-28] MEDS: cefTRIAXone SODIUM 2,000 MG in DEXTROSE 5% 50 ML IV SCH (09:43)
[2020-05-28] MEDS: INSULIN GLARGINE SOLOSTAR 100 UNITS/ML 3 ML PEN SQ SCH (10:07)
[2020-05-28] MEDS: ONDANSETRON INJ 2 MG/ML 2 ML VIAL IV PRN (10:30)
--- NOTE | 2020-05-28 12:03 | Pharmacy Report ---
Pharmacy Glycemic Short Note 2 - Date of Service May 28, 2020 - Glycemic Short BSG Results (Last 24 hours): 05/27/20 05/27/20 05/27/20 11:55 16:37 21:11 Glucose POC Glucose 240 H 98 174 H 05/28/20 05/28/20 05/28/20 00:20 04:07 05:47 Glucose 203 H POC Glucose 221 H 216 H 05/28/20 09:30 Glucose POC Glucose 232 H Outpatient Anti-diabetic Regimen: * Lantus 15 units SC qAM, 8 units SC qPM * A1c = 8.3 % on 05/23/20 Risk Factors for Insulin Resistance: * Steroids: dexamethasone 6 mg po daily, day 3 of anticipated 10 day course (for COVID-19) * Infection: COVID-19, possible superimposed PNA * Diet: T1DM ASSESSMENT: 05/28/20: * Pt has received 65 units of insulin over the past 24 hrs * 32 units of basal insulin with Lantus * 33 units of bolus insulin with NovoLog * BSGs ranging 98-314 mg/dl * Hyperglycemia continues secondary to daily dexamethasone * Patient received additional 9 units of correctional insulin overnight and correctional insulin prior to meals yesterday. Will add this to basal insulin dosing and increase Lantus to 44 units SQ daily. * Will tighten CR since steroids have their most profound effect on post- prandial hyperglycemia. Will loosen CF since CR tightening AND basal insulin significantly increased. 05/27/20 * Stressors stable (see above), except possible XOCHITL noted today * AM fasting BSG significantly elevated - will increase Lantus and add two overnight checks tonight * Post-prandial BSG's >180 mg/dL x2 yesterday - will tighten Novolog CHO ratio 05/26/20 * Stressors stable (see above) * BSG's gradually but steadily trended down yesterday after increase in Lantus in AM and tightening of Novolog parameters in PM. * Now with BSG of 191 mg/dL this AM * Will cautiously increase Lantus due to AM hyperglycemia and also 9 units of correctional insulin needed overnight. This dose may precipitate hypoglycemia in the AM were it not for the dexamethasone ordered, therefore ordered to be given simultaneously * Will continue with the current Novolog parameters as they were already tightened last evening * Plan for IV bolus for any BSG > 300 mg/dL - would like to continue to avoid standard-protocol insulin drip unless necessary due to need for hourly encounters/adjustments in COVID positive patient. BSG trend is reasonable at this time therefore OK for now. 05/25/20 * 55 yo M with T1DM admitted with COVID-19 and possible superimposed PNA * BSG's initially adequately controlled on 05/23, except AM hypoglycemia. * Severe AM hypoglycemia noted 05/24 AM prompted significant reduction in Lantus (from total of 23 to 15 units/24 hours yesterday). This reduction caused hyperglycemia this AM - will increase Lantus * Dexamethasone initiated 05/24 which caused hyperglycemia in the evening which prompted significant tightening of Novolog parameters. This tightening caused mild hypoglycemia last evening - Novolog parameters were loosened at that time. No further changes for now. May need to be tightened slightly later * IV insulin indicated due to better control BSG's but will give as one-time boluses given COVID positivity PLAN FOR INPATIENT GLYCEMIC CONTROL: * Basal insulin * Lantus 44 units SQ daily while on PO dexamethasone. * Lantus will need SIGNIFICANTLY decreased once dexamethasone stopped. * Bolus insulin * NovoLog per scale ACHS or Q6hrs while NPO * Goal Range: Low 110 mg/dL - High 140 mg/dL * Correction Factor: 25 mg/dL/unit * Nutritional / Prandial insulin per carb ratio of 1 unit per 5 grams CHO consumed Plan for discharge: Dependent on whether patient will be discharged on steroids
--- NOTE | 2020-05-28 15:26 | Progress Notes ---
DATE: 05/28/2020 SUBJECTIVE: No new issues overnight. He did receive convalescent plasma earlier today with IV Lasix. Does not report any more shortness of breath than yesterday. He is eating and drinking normally. OBJECTIVE: GENERAL: Otherwise awake and alert, oriented x3. VITAL SIGNS: Blood pressure 144/71, temperature 36.8, 93% on 3 liter nasal cannula. HEENT: Mucous membrane is moist. NECK: Supple. No jugular venous distention. CHEST: Bilateral clear to auscultation. CARDIOVASCULAR: S1, S2 regular. ABDOMEN: Soft, nontender. EXTREMITIES: Shows no edema. LABORATORY TESTS: Reviewed from this morning, hemoglobin is 9.1, platelet count is 378. BUN is 53, creatinine 3.41. Sodium 140, potassium 3.5, chloride 109. ASSESSMENT AND PLAN: A 55-year-old male with multiple medical problems at baseline, who presented from the long term with fever, hypoxia and was found to be COVID-19 positive. Acute renal failure--- Creatinine today is very similar to yesterday, which is a good sign. He is making urine and he is otherwise hemodynamically stable. Acute renal failure secondary to acute tubular necrosis in the setting of COVID-19 infection. No major electrolyte problem today. Continue current therapy. He does not need IV fluid. His creatinine should start trending down before we consider his discharge. CLIFFORD
[2020-05-28] MEDS: ACETAMINOPHEN 325 MG TAB PO PRN (17:07)
--- NOTE | 2020-05-28 20:18 | XRay Report ---
XR chest 1V portable CLINICAL HISTORY: Abnormal chest x-ray. Follow-up study COMPARISON STUDY: 05/24/2020 FINDINGS: The cardiac and mediastinal contours remain stable. There is underlying pulmonary emphysema . Since the prior study, the patient has developed right lower lung zone airspace opacities suspiciou s for a pneumonia. There are improving left basilar opacities. There is widening of the left lateral costophrenic angle[ IMPRESSION: 1. Mild emphysema 2. Suspected trace left pleural effusion 3. Improving left basilar opacities 4. Interval development of right lower lobe airspace opacities suspicious for pneumonia. ACT 112: Negative or not required by law. Electronically signed by: Jason Ram M.D. 05/28/2020 8:17 PM
[2020-05-28] MEDS: ATORVASTATIN 40 MG TAB PO SCH (21:40)
[2020-05-29] MEDS: LEVOTHYROXINE SODIUM 137 MCG TABLET PO SCH (06:18)
[2020-05-29 06:21] LABS: Hematocrit (blood only) 25.5 % (42-52); Hemoglobin 8.4 g/dL (14.0-18.0); Mean Corpuscular Hemoglobin 27.6 pg (25-34); Mean Corpuscular Hgb Conc 32.9 g/dL (32-36); Mean Corpuscular Volume 83.9 fL (80-100); Mean Platelet Volume 9.4 fL (7.4-10.4); Platelet Count 365 K/uL (130-400); RDW Coefficient of Variation 16.9 % (11.5-14.5); RDW Standard Deviation 52.3 fL (36.4-46.3); Red Blood Count 3.04 M/uL (4.7-6.1); White Blood Count 8.85 K/uL (4.8-10.8)
[2020-05-29] MEDS: HEPARIN SOD 5,000 UNIT/0.5 ML VIAL SQ SCH ×3 (06:29→22:05)
[2020-05-29 06:57] LABS: Albumin Level 1.9 gm/dl (3.4-5.0); BUN Creatinine Ratio 17.4 (10-20); Calcium 7.7 mg/dl (8.5-10.1); Creatinine Clr Calc Pharmacy 27.9 ml/min; Est GFR (African American) 23.3; Est GFR (Non-African American) 20.1; Potassium 3.8 mmol/L (3.5-5.1)
[2020-05-29 06:59] LABS: Albumin Globulin Ratio 0.4 (0.9-2); Bilirubin,Total 0.3 mg/dl (0.2-1); Globulin 4.3 gm/dl (2.5-4.0); Phosphorus 3.7 mg/dl (2.5-4.9); Total Protein 6.2 gm/dl (6.4-8.2)
[2020-05-29] MEDS ORDERED: CEFEPIME CONSULT ACTIVE PRN (07:22)
[2020-05-29] MEDS: metroNIDAZOLE 500 MG TAB PO SCH ×3 (08:27→21:55)
[2020-05-29] MEDS: dexAMETHasone 4 MG TAB PO SCH (08:28)
[2020-05-29] MEDS: amLODIPine BESYLATE 5 MG TAB PO SCH (08:28)
[2020-05-29] MEDS: THIAMINE HCL 100 MG TAB PO SCH ×2 (08:28→21:55)
[2020-05-29] MEDS: GABAPENTIN 600 MG TAB PO SCH ×4 (08:29→21:24)
[2020-05-29] MEDS: NEPHROCAPS PO SCH (08:29)
[2020-05-29] MEDS: ASPIRIN 81 MG ECTAB PO SCH (08:30)
[2020-05-29] MEDS: hydrALAZINE HCL 25 MG TAB PO SCH ×3 (08:30→21:24)
[2020-05-29] MEDS: FLUoxetine HCL 20 MG CAP PO SCH (08:30)
[2020-05-29] MEDS: PANTOprazole 40 MG TAB PO SCH (08:31)
[2020-05-29] MEDS: DOXYCYCLINE HYCLATE 100 MG CAP PO SCH ×2 (08:33→21:55)
[2020-05-29] MEDS: CEFEPIME 2,000 MG in SYRINGE 0 ML IV SCH (08:35)
[2020-05-29] MEDS: INSULIN ASPART 100 UNITS/ML 3 ML PEN SC SCH ×4 (08:58→22:05)
[2020-05-29] MEDS: INSULIN GLARGINE SOLOSTAR 100 UNITS/ML 3 ML PEN SQ SCH (08:59)
--- NOTE | 2020-05-29 09:20 | Hospitalist Progress Note ---
Date of Service May 29, 2020 Assessment & Plan (1) Pneumonia: +COVID CXR reports small left pleural effusion and left lung base consolidation Continued ceftriaxone and doxycycline while inpt, repeat CXR shows progression of lung opacity, will switch ceft to cefepime and will add flagyl, pt on 4L of O2 Continue dexamethasone 6mg po Patient not a candidate for remdesivir due to renal function Continue to manage blood glucose Obtained consent for convalescent plasma (05/27/20), and provided pt with FDA EUA fact sheet for convalescent plasma Now s/p transfusion of 1 unit overnight (05/28 night), received 40 IV lasix prior to transfusion Wean oxygen as tolerated Will need ambulatory pulse ox on discharge DD dimer was elevated at 1490. Negative dopplers Will continue heparin sq q8h for DVT ppx for now (2) XOCHITL (acute kidney injury): Cr is 2.44>>2.7>>2.82, however then up to 3.47, now down to 3.2 XOCHITL on CKD d/t ATN in the setting of COVID 19infection Per physician at senior care facility, patient has CKD and last lab work in 12/2019 showed Cr of 2.32 Due to poor oral intake received 1L IVF NSS at 80cc/h while inpt Monitor Cr and avoid nephrotoxins [employer] evaluation appreciated - ATN, worsening Cr, concern for poss. need for dialysis, no need for extra IV fluids Replete hypokalemia (3) Diabetes mellitus type I: Continue insulin and lantus A1c is 8.3 Has had hypoglycemic episodes likely due to poor po intake Has been hyperglycemic likely with steroid therapy Continue to optimize glycemic control pharmacist on board (4) Hypothyroidism: Continue levothyroxine (5) Hypertension: now controlled Lisinopril on hold for now due to XOCHITL Continue amlodipine Admission and Anticipated Discharge Date Admission Date: May 22, 2020 Subjective Pt is sitting up in bed in NAD, on 4L/min and reports cough. Also reports some increased shortness of breath overnight, feeling better now. No chest pain, abd. pain, n/v/d. Pt received convalescent plasma last night with lasix. Cr slightly down to 3.2. Nephrology following. Pt continues to make urine. Review of Systems 2 Review of Systems: All systems reviewed & are unremarkable except as noted in HPI & below Constitutional: no fever and no chills Respiratory: + cough and + dyspnea (improved) Cardiovascular: no chest pain, no palpitations and no edema Gastrointestinal: no abdominal pain, no nausea, no vomiting and no diarrhea/loose stools Physical Exam Physical Exam: Constitutional: + well hydrated; no acute distress Eyes: PERRL, EOMI, conjunctivae normal, anicteric sclerae ENMT: external ear and nose normal, oropharynx normal Respiratory: normal respiratory effort; no respiratory distress Auscultation: lungs clear to auscultation bilaterally Cardiovascular: RRR, no murmur, no edema Gastrointestinal (Abdomen): normal bowel sounds, soft, nontender Musculoskeletal: moves extremities Neurologic: PERRL, EOMI, no face palsy, no dysarthria Genitourinary: no CVA tenderness Skin: warm, dry, Psoriatic lesions Results & Data Results & Data ([facility]) Vital Signs (Past 12 Hours) Vital Signs Temp Pulse Pulse Resp BP BP Pulse Ox 05/29/20 08:18 36.5 C 73 19 127/64 94 05/28/20 23:59 63 05/28/20 23:45 36.4 C L 62 16 119/73 91 05/28/20 23:10 36.5 C 65 16 116/64 91 05/28/20 23:05 36.4 C L 68 16 118/63 91 05/28/20 23:00 36.5 C 66 16 114/63 91 05/28/20 22:54 36.4 C L 68 16 118/63 91 Laboratory Results 05/29/20 05/29/20 05/29/20 Range/Units 07:43 06:05 06:05 WBC 8.85 (4.8-10.8) K/uL RBC 3.04 L (4.7-6.1) M/uL Hgb 8.4 L (14.0-18.0) g/dL Hct 25.5 L (42-52) % MCV 83.9 (80-100) fL MCH 27.6 (25-34) pg MCHC 32.9 (32-36) g/dL RDW Std Deviation 52.3 H (36.4-46.3) fL RDW Coeff of Minnie 16.9 H (11.5-14.5) % Plt Count 365 (130-400) K/uL MPV 9.4 (7.4-10.4) fL Sodium 140 (136-145) mmol/L Potassium 3.8 (3.5-5.1) mmol/L Chloride 111 H (98-107) mmol/L Carbon Dioxide 23 (21-32) mmol/L Anion Gap 6.0 (3-11) BUN 57 H (7-18) mg/dl Creatinine 3.25 H (0.6-1.4) mg/dl Est Cr Clr Drug Dosing 27.9 ml/min Est GFR ( Amer) 23.3 Est GFR (Non-Af Amer) 20.1 BUN/Creatinine Ratio 17.4 (10-20) Glucose 142 H (70-99) mg/dl POC Glucose 145 H (70-99) mg/dl Calcium 7.7 L (8.5-10.1) mg/dl Phosphorus 3.7 (2.5-4.9) mg/dl Magnesium 2.0 (1.8-2.4) mg/dl Total Bilirubin 0.3 (0.2-1) mg/dl AST 26 (15-37) U/L ALT 30 (12-78) U/L Alkaline Phosphatase 78 (45-117) U/L Total Protein 6.2 L (6.4-8.2) gm/dl Albumin 1.9 L (3.4-5.0) gm/dl Globulin 4.3 H (2.5-4.0) gm/dl Albumin/Globulin Ratio 0.4 L (0.9-2) Blood Type Antibody Screen 05/28/20 05/28/20 05/28/20 Range/Units 21:40 16:54 12:02 WBC (4.8-10.8) K/uL RBC (4.7-6.1) M/uL Hgb (14.0-18.0) g/dL Hct (42-52) % MCV (80-100) fL MCH (25-34) pg MCHC (32-36) g/dL RDW Std Deviation (36.4-46.3) fL RDW Coeff of Minnie (11.5-14.5) % Plt Count (130-400) K/uL MPV (7.4-10.4) fL Sodium (136-145) mmol/L Potassium (3.5-5.1) mmol/L Chloride (98-107) mmol/L Carbon Dioxide (21-32) mmol/L Anion Gap (3-11) BUN (7-18) mg/dl Creatinine (0.6-1.4) mg/dl Est Cr Clr Drug Dosing ml/min Est GFR ( Amer) Est GFR (Non-Af Amer) BUN/Creatinine Ratio (10-20) Glucose (70-99) mg/dl POC Glucose 103 H 82 207 H (70-99) mg/dl Calcium (8.5-10.1) mg/dl Phosphorus (2.5-4.9) mg/dl Magnesium (1.8-2.4) mg/dl Total Bilirubin (0.2-1) mg/dl AST (15-37) U/L ALT (12-78) U/L Alkaline Phosphatase (45-117) U/L Total Protein (6.4-8.2) gm/dl Albumin (3.4-5.0) gm/dl Globulin (2.5-4.0) gm/dl Albumin/Globulin Ratio (0.9-2) Blood Type Antibody Screen 05/28/20 05/27/20 Range/Units 09:30 18:23 WBC (4.8-10.8) K/uL RBC (4.7-6.1) M/uL Hgb (14.0-18.0) g/dL Hct (42-52) % MCV (80-100) fL MCH (25-34) pg MCHC (32-36) g/dL RDW Std Deviation (36.4-46.3) fL RDW Coeff of Minnie (11.5-14.5) % Plt Count (130-400) K/uL MPV (7.4-10.4) fL Sodium (136-145) mmol/L Potassium (3.5-5.1) mmol/L Chloride (98-107) mmol/L Carbon Dioxide (21-32) mmol/L Anion Gap (3-11) BUN (7-18) mg/dl Creatinine (0.6-1.4) mg/dl Est Cr Clr Drug Dosing ml/min Est GFR ( Amer) Est GFR (Non-Af Amer) BUN/Creatinine Ratio (10-20) Glucose (70-99) mg/dl POC Glucose 232 H (70-99) mg/dl Calcium (8.5-10.1) mg/dl Phosphorus (2.5-4.9) mg/dl Magnesium (1.8-2.4) mg/dl Total Bilirubin (0.2-1) mg/dl AST (15-37) U/L ALT (12-78) U/L Alkaline Phosphatase (45-117) U/L Total Protein (6.4-8.2) gm/dl Albumin (3.4-5.0) gm/dl Globulin (2.5-4.0) gm/dl Albumin/Globulin Ratio (0.9-2) Blood Type A Positive Antibody Screen NEGATIVE Medications Administered Current Inpatient Medications Acetaminophen (Acetaminophen 325 Mg Tab) 650 mg PO Q4H PRN PRN Reason: Pain or Fever Stop: 06/22/20 00:45 Last Admin: 05/28/20 17:07 Dose: 650 mg Documented by: Amlodipine Besylate (Amlodipine Besylate 5 Mg Tab) 10 mg PO QAM MARY Stop: 06/24/20 08:59 Last Admin: 05/29/20 08:28 Dose: 10 mg Documented by: Aspirin (Aspirin 81 Mg Ectab) 81 mg PO DAILY MARY Stop: 06/22/20 08:59 Last Admin: 05/29/20 08:30 Dose: 81 mg Documented by: Atorvastatin Calcium (Atorvastatin 40 Mg Tab) 80 mg PO HS MARY Stop: 06/22/20 20:59 Last Admin: 05/28/20 21:40 Dose: 80 mg Documented by: Dexamethasone (Dexamethasone 4 Mg Tab) 6 mg PO DAILY MARY Stop: 06/03/20 11:14 Last Admin: 05/29/20 08:28 Dose: 6 mg Documented by: Dextrose (Dextrose 50% 50 Ml Syringe) 25 - 50 ml IV UD PRN; Protocol PRN Reason: Hypoglycemia Protocol Stop: 06/22/20 01:29 Doxycycline Hyclate (Doxycycline Hyclate 100 Mg Cap) 100 mg PO BID MARY Stop: 06/03/20 20:59 Last Admin: 05/29/20 08:33 Dose: 100 mg Documented by: Fluoxetine HCl (Fluoxetine Hcl 20 Mg Cap) 40 mg PO DAILY MARY Stop: 06/22/20 08:59 Last Admin: 05/29/20 08:30 Dose: 40 mg Documented by: Gabapentin (Gabapentin 600 Mg Tab) 600 mg PO QID MARY Stop: 06/22/20 08:59 Last Admin: 05/29/20 08:29 Dose: 600 mg Documented by: Glucagon (Glucagon For Inj 1 Mg Vial) 1 mg SQ UD PRN; Protocol PRN Reason: Hypoglycemia Protocol Stop: 06/22/20 01:29 Glucose (Glucose 40% Gel 15 Gm Tube) 15 - 30 gm PO UD PRN; Protocol PRN Reason: Hypoglycemia Protocol Stop: 06/22/20 01:29 Glucose (Glucose 10 Tabs/Tube) 4 - 8 tabs PO UD PRN; Protocol PRN Reason: Hypoglycemia Protocol Stop: 06/22/20 01:29 Heparin Sodium (Porcine) (Heparin Sod 5,000 Unit/0.5 Ml Vial) 5,000 units SQ Q8 MARY Stop: 06/22/20 05:59 Last Admin: 05/29/20 06:29 Dose: 5,000 units Documented by: Hydralazine HCl (Hydralazine Hcl 25 Mg Tab) 25 mg PO TID MARY Stop: 06/24/20 13:59 Last Admin: 05/29/20 08:30 Dose: 25 mg Documented by: Cefepime HCl 2,000 mg/ Syringe 20 mls @ 5 mls/min IV Q24H MARY; Protocol Stop: 06/05/20 07:59 Last Admin: 05/29/20 08:35 Dose: 5 mls/min Documented by: Insulin Aspart (Insulin Aspart 100 Units/Ml 3 Ml Pen) 0 units SC ACHS [facility] Stop: 06/22/20 07:29 Last Admin: 05/29/20 08:58 Dose: 7 units Documented by: Insulin Glargine (Insulin Glargine Solostar 100 Units/Ml 3 Ml Pen) 44 units SQ DAILY [facility]; Protocol Stop: 06/27/20 08:59 Last Admin: 05/29/20 08:59 Dose: 44 units Documented by: Levalbuterol HCl (Levalbuterol Tartrate 15 Gm Hfa.Aer.Ad) 2 puffs INH QID PRN PRN Reason: Wheezing Stop: 05/30/20 08:17 Levothyroxine Sodium (Levothyroxine Sodium 137 Mcg Tablet) 137 mcg PO DAILYBB MARY Stop: 06/22/20 06:29 Last Admin: 05/29/20 06:18 Dose: 137 mcg Documented by: Metronidazole (Metronidazole 500 Mg Tab) 500 mg PO TID MARY Stop: 06/05/20 08:59 Last Admin: 05/29/20 08:27 Dose: 500 mg Documented by: Miscellaneous (Carbohydrates For Hypoglycemia ) 15 - 30 gm PO UD PRN PRN Reason: Hypoglycemia Treatment Stop: 06/22/20 01:29 Last Admin: 05/24/20 21:30 Dose: 15 gm Documented by: Miscellaneous Information (Pharmacy Glycemic Mgmt Consult) 1 ea N/A UD PRN PRN Reason: Consult Stop: 06/23/20 15:06 Miscellaneous Information (Cefepime Consult Active) 1 ea N/A UD PRN PRN Reason: Consult Stop: 06/28/20 07:21 Nitroglycerin (Nitroglycerin Sl 0.4 Mg/Tab Tab) 0.4 mg SL UD PRN PRN Reason: Chest Pain Stop: 06/22/20 00:45 Ondansetron HCl (Ondansetron Inj 2 Mg/Ml 2 Ml Vial) 4 mg IV Q6H PRN PRN Reason: Nausea Stop: 06/22/20 00:45 Last Admin: 05/28/20 10:30 Dose: 4 mg Documented by: Pantoprazole Sodium (Pantoprazole 40 Mg Tab) 40 mg PO QAM MARY Stop: 06/26/20 18:29 Last Admin: 05/29/20 08:31 Dose: 40 mg Documented by: Thiamine HCl (Thiamine Hcl 100 Mg Tab) 100 mg PO BID MARY Stop: 06/28/20 08:59 Last Admin: 05/29/20 08:28 Dose: 100 mg Documented by: Vitamin B Complex/Folic Acid (Nephrocaps) 1 cap PO DAILY MARY Stop: 06/22/20 08:59 Last Admin: 05/29/20 08:29 Dose: 1 cap Documented by: (1) Hypertension Hypertension type: essential hypertension Qualified Code(s): I10 - Essential (primary) hypertension
--- NOTE | 2020-05-29 09:43 | Progress Notes ---
DATE: 05/29/2020 SUBJECTIVE: The patient's condition seems to be slightly better today. He is now on room air with 94% oxygen saturations, made about 1.5 liters of urine and renal function is slightly better than yesterday. He is eating and drinking normally. OBJECTIVE: VITAL SIGNS: Blood pressure 127/64, pulse rate 73, temperature 36.5 degrees Celsius, 94% on room air. HEENT: Mucous membranes moist. REVIEW OF SYSTEMS: Detailed examination not done today to save critically needed protective personal equipment, examination inferred from my examination yesterday. LABORATORY TESTS: Blood work from this morning shows creatinine is 3.2, BUN 57. Sodium 140, potassium 3.8, calcium 7.7, hemoglobin 8.4. ASSESSMENT AND PLAN: A 55-year-old male with multiple medical problems at baseline, who presented from the [facility] with fever, hypoxia and was found to be COVID-19 positive, acute renal failure secondary to acute tubular necrosis in the setting of COVID-19 infection. No major issues with fluid or electrolyte. He does not need IV fluid. He is making good urine output and his creatinine has started to trend down slowly. At this point, I am quite hopeful that the worst is over and he will start making some recovery from now on. Continue to hold Florinef, which he was getting prior to hospitalization. It is not exactly clear what his baseline creatinine is, but we have information from the [facility] that his more recent baseline creatinine is about 2.
--- NOTE | 2020-05-29 10:12 | Pharmacy Report ---
Pharmacy Glycemic Short Note 2 - Date of Service May 29, 2020 - Glycemic Short BSG Results (Last 24 hours): 05/28/20 05/28/20 05/28/20 12:02 16:54 21:40 Glucose POC Glucose 207 H 82 103 H 05/29/20 05/29/20 06:05 07:43 Glucose 142 H POC Glucose 145 H Outpatient Anti-diabetic Regimen: * Lantus 15 units SC qAM, 8 units SC qPM * A1c = 8.3 % on 05/23/20 Risk Factors for Insulin Resistance: * Steroids: dexamethasone 6 mg po daily, day 3 of anticipated 10 day course (for COVID-19) * Infection: COVID-19, possible superimposed PNA * Diet: T1DM ASSESSMENT: 05/29/20: * Pt has received 81 units of insulin over the past 24hrs * 44 units of basal insulin with Lantus * 37 units of bolus insulin with NovoLog * BSGs ranging 82-232 mg/dl * Hyperglycemia secondary to steroids. Pt is requiring abou 2x outpatient dosing of insulin for steroid induced hyperglycemia (dexamethasone for COVID+) Insulin regimen will need significantly tapered once dxm dc. * BSGs trending downwards throughout the day - will loosen CF/CR * AM fasting BSG is in goal range at 142 mg/dl. No changes needed to basal insulin 05/28/20: * Pt has received 65 units of insulin over the past 24 hrs * 32 units of basal insulin with Lantus * 33 units of bolus insulin with NovoLog * BSGs ranging 98-314 mg/dl * Hyperglycemia continues secondary to daily dexamethasone * Patient received additional 9 units of correctional insulin overnight and correctional insulin prior to meals yesterday. Will add this to basal insulin dosing and increase Lantus to 44 units SQ daily. * Will tighten CR since steroids have their most profound effect on post- prandial hyperglycemia. Will loosen CF since CR tightening AND basal insulin significantly increased. 05/27/20 * Stressors stable (see above), except possible XOCHITL noted today * AM fasting BSG significantly elevated - will increase Lantus and add two overnight checks tonight * Post-prandial BSG's >180 mg/dL x2 yesterday - will tighten Novolog CHO ratio 05/26/20 * Stressors stable (see above) * BSG's gradually but steadily trended down yesterday after increase in Lantus in AM and tightening of Novolog parameters in PM. * Now with BSG of 191 mg/dL this AM * Will cautiously increase Lantus due to AM hyperglycemia and also 9 units of correctional insulin needed overnight. This dose may precipitate hypoglycemia in the AM were it not for the dexamethasone ordered, therefore ordered to be given simultaneously * Will continue with the current Novolog parameters as they were already tightened last evening * Plan for IV bolus for any BSG > 300 mg/dL - would like to continue to avoid standard-protocol insulin drip unless necessary due to need for hourly encounters/adjustments in COVID positive patient. BSG trend is reasonable at this time therefore OK for now. 05/25/20 * 55 yo M with T1DM admitted with COVID-19 and possible superimposed PNA * BSG's initially adequately controlled on 05/23, except AM hypoglycemia. * Severe AM hypoglycemia noted 05/24 AM prompted significant reduction in Lantus (from total of 23 to 15 units/24 hours yesterday). This reduction caused hyperglycemia this AM - will increase Lantus * Dexamethasone initiated 05/24 which caused hyperglycemia in the evening which prompted significant tightening of Novolog parameters. This tightening caused mild hypoglycemia last evening - Novolog parameters were loosened at that time. No further changes for now. May need to be tightened slightly later * IV insulin indicated due to better control BSG's but will give as one-time boluses given COVID positivity PLAN FOR INPATIENT GLYCEMIC CONTROL: * Basal insulin * Lantus 44 units SQ daily while on PO dexamethasone. * Lantus will need SIGNIFICANTLY decreased once dexamethasone stopped. * Bolus insulin: loosen parameters * NovoLog per scale ACHS or Q6hrs while NPO * Goal Range: Low 110 mg/dL - High 140 mg/dL * Correction Factor: 30 mg/dL/unit * Nutritional / Prandial insulin per carb ratio of 1 unit per 6 grams CHO consumed Plan for discharge: Dependent on whether patient will be discharged on steroids
[2020-05-29] MEDS ORDERED: EUCERIN CR 120 GM JAR EXT PRN (11:01)
[2020-05-29] MEDS: ONDANSETRON INJ 2 MG/ML 2 ML VIAL IV PRN (12:04)
[2020-05-29] MEDS: CARBOHYDRATES FOR HYPOGLYCEMIA PO PRN ×2 (16:50→17:10)
[2020-05-29] MEDS ORDERED: PROMETHAZINE HCL 6.25 MG in SODIUM CHLORIDE 0.9% 50 ML IV STA (16:59)
[2020-05-29] MEDS ORDERED: FUROSEMIDE 40 MG in SYRINGE 0 ML IV ONE (17:00)
--- NOTE | 2020-05-29 17:15 | XRay Report ---
XR chest 1V portable CLINICAL HISTORY: follow up COMPARISON STUDY: Chest radiograph May 28, 2020. FINDINGS: There is no pneumothorax. Small left pleural effusion is noted. Left basilar opacity has sl ightly increased. Right basilar opacity is unchanged. Diffuse interstitial thickening is increased. C ardiac size is stable. Patient is rotated. Mediastinal contours are unchanged. IMPRESSION: 1. Increase in interstitial thickening and bilateral opacities. The findings could reflect an infecti ous process or pulmonary edema. 2. Small left pleural effusion. ACT 112: Negative or not required by law. Electronically signed by: Wong Lazaro M.D. 05/29/2020 5:13 PM
[2020-05-29] MEDS: ATORVASTATIN 40 MG TAB PO SCH (21:24)
[2020-05-29] MEDS: DEXTROSE 50% 50 ML SYRINGE IV PRN (21:38)
[2020-05-29] MEDS: ACETAMINOPHEN 325 MG TAB PO PRN (21:54)
[2020-05-29] MEDS: DEXTROSE 5% 1,000 ML IV SCH (21:58)
[2020-05-30 05:43] LABS: Hematocrit (blood only) 24.2 % (42-52); Hemoglobin 7.9 g/dL (14.0-18.0); Mean Corpuscular Hemoglobin 27.2 pg (25-34); Mean Corpuscular Hgb Conc 32.6 g/dL (32-36); Mean Corpuscular Volume 83.4 fL (80-100); Platelet Count 394 K/uL (130-400); RDW Standard Deviation 52.7 fL (36.4-46.3); White Blood Count 10.78 K/uL (4.8-10.8)
[2020-05-30] MEDS: HEPARIN SOD 5,000 UNIT/0.5 ML VIAL SQ SCH ×2 (06:05→15:55)
[2020-05-30] MEDS: LEVOTHYROXINE SODIUM 137 MCG TABLET PO SCH (06:09)
[2020-05-30 06:12] LABS: Albumin Level 1.9 gm/dl (3.4-5.0); BUN Creatinine Ratio 16.7 (10-20); Calcium 7.4 mg/dl (8.5-10.1); Est GFR (African American) 23.5; Est GFR (Non-African American) 20.3; Magnesium 1.8 mg/dl (1.8-2.4); Potassium 4.1 mmol/L (3.5-5.1)
[2020-05-30 06:18] LABS: Albumin Globulin Ratio 0.5 (0.9-2); Bilirubin,Total 0.2 mg/dl (0.2-1); Phosphorus 2.6 mg/dl (2.5-4.9); Total Protein 5.9 gm/dl (6.4-8.2)
[2020-05-30] MEDS: INSULIN ASPART 100 UNITS/ML 3 ML PEN SC SCH ×4 (08:20→21:09)
--- NOTE | 2020-05-30 08:48 | Hospitalist Progress Note ---
Date of Service May 30, 2020 Assessment & Plan (1) Pneumonia: +COVID CXR reports small left pleural effusion and left lung base consolidation Continued ceftriaxone and doxycycline while inpt, repeat CXR shows progression of lung opacity, switched ceft to cefepime and added flagyl, pt now on 11L of O2 Continue dexamethasone 6mg po Patient not a candidate for remdesivir due to renal function Continue to manage blood glucose Obtained consent for convalescent plasma (05/27/20), and provided pt with FDA EUA fact sheet for convalescent plasma Now s/p transfusion of 1 unit (05/28 night), received 40 IV lasix prior to transfusion Currently oxygen requirement much increased 11L via oxymas, will give IV lasix (pt refused IV lasix yesterday) Wean oxygen as tolerated Will need ambulatory pulse ox on discharge DD dimer was elevated at 1490. Negative dopplers Can't get CT PE d/t poor renal function VQ scan ordered - notified that the study can not be obtained on COVID pts Repeat LE Dopplers Pt has been on heparin sq q8h for DVT ppx Will now switch to IV heparin given increased oxygen requirement, this was discussed including the risk of bleeding, with the pt who is in agreement ICU notified in case pt's status deteriorates (2) XOCHITL (acute kidney injury): Cr is 2.44>>2.7>>2.82, however then up to 3.47, now down to 3.2 XOCHITL on CKD d/t ATN in the setting of COVID 19infection Per physician at senior care facility, patient has CKD and last lab work in 12/2019 showed Cr of 2.32 Due to poor oral intake received 1L IVF NSS at 80cc/h while inpt Monitor Cr and avoid nephrotoxins Phone Counselor evaluation appreciated - ATN, worsening Cr, concern for poss. need for dialysis, no need for extra IV fluids Replete hypokalemia (3) Diabetes mellitus type I: Continue insulin and lantus A1c is 8.3 Has had hypoglycemic episodes likely due to poor po intake Has been hyperglycemic likely with steroid therapy Continue to optimize glycemic control pharmacist on board (4) Hypothyroidism: Continue levothyroxine (5) Hypertension: now controlled Lisinopril on hold for now due to XOCHITL Continue amlodipine Admission and Anticipated Discharge Date Admission Date: May 22, 2020 Subjective Pt is sitting up in bed in NAD, now on 11L/min of O2 via oxymask, reports cough. Also reports some increased shortness of breath. Pt refused lasix yesterday. Discussed that we need to try lasix. No chest pain, abd. pain, has some nausea. Nephrology following. Pt continues to make urine. Review of Systems Review of Systems: All systems reviewed & are unremarkable except as noted in HPI & below Constitutional: no fever and no chills Respiratory: + cough and + dyspnea Cardiovascular: no chest pain and no palpitations Gastrointestinal: + nausea; no abdominal pain and no vomiting Physical Exam Physical Exam: Constitutional: + well hydrated; no acute distress Eyes: PERRL, EOMI, conjunctivae normal, anicteric sclerae ENMT: external ear and nose normal, oropharynx normal Respiratory: normal respiratory effort; no respiratory distress Auscultation: lungs clear to auscultation bilaterally Cardiovascular: RRR, no murmur, no edema Gastrointestinal (Abdomen): normal bowel sounds, soft, nontender Musculoskeletal: moves extremities Neurologic: PERRL, EOMI, no face palsy, no dysarthria Genitourinary: no CVA tenderness Skin: warm, dry, Psoriatic lesions Results & Data Results & Data ([facility]) Vital Signs (Past 12 Hours) Vital Signs Temp Pulse Pulse Resp BP BP Pulse Ox 05/30/20 08:08 36.8 C 84 18 115/67 89 L 05/30/20 02:18 36.8 C 89 22 146/67 H 91 05/29/20 23:59 85 05/29/20 23:55 36.9 C 90 18 138/71 90 Laboratory Results 05/30/20 05/30/20 05/30/20 Range/Units 08:07 04:59 04:59 WBC 10.78 (4.8-10.8) K/uL RBC 2.90 L (4.7-6.1) M/uL Hgb 7.9 L (14.0-18.0) g/dL Hct 24.2 L (42-52) % MCV 83.4 (80-100) fL MCH 27.2 (25-34) pg MCHC 32.6 (32-36) g/dL RDW Std Deviation 52.7 H (36.4-46.3) fL RDW Coeff of Minnie 17.0 H (11.5-14.5) % Plt Count 394 (130-400) K/uL MPV 10.0 (7.4-10.4) fL Sodium 139 (136-145) mmol/L Potassium 4.1 (3.5-5.1) mmol/L Chloride 110 H (98-107) mmol/L Carbon Dioxide 21 (21-32) mmol/L Anion Gap 9.0 (3-11) BUN 54 H (7-18) mg/dl Creatinine 3.23 H (0.6-1.4) mg/dl Est Cr Clr Drug Dosing 28.0 ml/min Est GFR ( Amer) 23.5 Est GFR (Non-Af Amer) 20.3 BUN/Creatinine Ratio 16.7 (10-20) Glucose 168 H (70-99) mg/dl POC Glucose 187 H (70-99) mg/dl Calcium 7.4 L (8.5-10.1) mg/dl Phosphorus 2.6 D (2.5-4.9) mg/dl Magnesium 1.8 (1.8-2.4) mg/dl Total Bilirubin 0.2 (0.2-1) mg/dl AST 32 (15-37) U/L ALT 28 (12-78) U/L Alkaline Phosphatase 71 (45-117) U/L Total Protein 5.9 L (6.4-8.2) gm/dl Albumin 1.9 L (3.4-5.0) gm/dl Globulin 4.0 (2.5-4.0) gm/dl Albumin/Globulin Ratio 0.5 L (0.9-2) 05/30/20 05/29/20 05/29/20 Range/Units 02:21 23:54 21:57 WBC (4.8-10.8) K/uL RBC (4.7-6.1) M/uL Hgb (14.0-18.0) g/dL Hct (42-52) % MCV (80-100) fL MCH (25-34) pg MCHC (32-36) g/dL RDW Std Deviation (36.4-46.3) fL RDW Coeff of Minnie (11.5-14.5) % Plt Count (130-400) K/uL MPV (7.4-10.4) fL Sodium (136-145) mmol/L Potassium (3.5-5.1) mmol/L Chloride (98-107) mmol/L Carbon Dioxide (21-32) mmol/L Anion Gap (3-11) BUN (7-18) mg/dl Creatinine (0.6-1.4) mg/dl Est Cr Clr Drug Dosing ml/min Est GFR ( Amer) Est GFR (Non-Af Amer) BUN/Creatinine Ratio (-20) Glucose (70-99) mg/dl POC Glucose 71 107 H 106 H (70-99) mg/dl Calcium (8.5-10.1) mg/dl Phosphorus (2.5-4.9) mg/dl Magnesium (1.8-2.4) mg/dl Total Bilirubin (0.2-1) mg/dl AST (15-37) U/L ALT (12-78) U/L Alkaline Phosphatase (45-117) U/L Total Protein (6.4-8.2) gm/dl Albumin (3.4-5.0) gm/dl Globulin (2.5-4.0) gm/dl Albumin/Globulin Ratio (0.9-2) 05/29/20 05/29/20 05/29/20 Range/Units 21:33 21:15 21:13 WBC (4.8-10.8) K/uL RBC (4.7-6.1) M/uL Hgb (14.0-18.0) g/dL Hct (42-52) % MCV (80-100) fL MCH (25-34) pg MCHC (32-36) g/dL RDW Std Deviation (36.4-46.3) fL RDW Coeff of Minnie (11.5-14.5) % Plt Count (130-400) K/uL MPV (7.4-10.4) fL Sodium (136-145) mmol/L Potassium (3.5-5.1) mmol/L Chloride (98-107) mmol/L Carbon Dioxide (21-32) mmol/L Anion Gap (3-11) BUN (7-18) mg/dl Creatinine (0.6-1.4) mg/dl Est Cr Clr Drug Dosing ml/min Est GFR ( Amer) Est GFR (Non-Af Amer) BUN/Creatinine Ratio (-20) Glucose (70-99) mg/dl POC Glucose 38 L* 44 L* 38 L* (70-99) mg/dl Calcium (8.5-10.1) mg/dl Phosphorus (2.5-4.9) mg/dl Magnesium (1.8-2.4) mg/dl Total Bilirubin (0.2-1) mg/dl AST (15-37) U/L ALT (12-78) U/L Alkaline Phosphatase (45-117) U/L Total Protein (6.4-8.2) gm/dl Albumin (3.4-5.0) gm/dl Globulin (2.5-4.0) gm/dl Albumin/Globulin Ratio (0.9-2) 05/29/20 05/29/20 05/29/20 Range/Units 17:24 17:07 16:41 WBC (4.8-10.8) K/uL RBC (4.7-6.1) M/uL Hgb (14.0-18.0) g/dL Hct (42-52) % MCV (80-100) fL MCH (25-34) pg MCHC (32-36) g/dL RDW Std Deviation (36.4-46.3) fL RDW Coeff of Minnie (11.5-14.5) % Plt Count (130-400) K/uL MPV (7.4-10.4) fL Sodium (136-145) mmol/L Potassium (3.5-5.1) mmol/L Chloride (98-107) mmol/L Carbon Dioxide (21-32) mmol/L Anion Gap (3-11) BUN (7-18) mg/dl Creatinine (0.6-1.4) mg/dl Est Cr Clr Drug Dosing ml/min Est GFR ( Amer) Est GFR (Non-Af Amer) BUN/Creatinine Ratio (-20) Glucose (70-99) mg/dl POC Glucose 72 57 L* 61 L* (70-99) mg/dl Calcium (8.5-10.1) mg/dl Phosphorus (2.5-4.9) mg/dl Magnesium (1.8-2.4) mg/dl Total Bilirubin (0.2-1) mg/dl AST (15-37) U/L ALT (12-78) U/L Alkaline Phosphatase (45-117) U/L Total Protein (6.4-8.2) gm/dl Albumin (3.4-5.0) gm/dl Globulin (2.5-4.0) gm/dl Albumin/Globulin Ratio (0.9-2) 05/29/20 Range/Units 11:31 WBC (4.8-10.8) K/uL RBC (4.7-6.1) M/uL Hgb (14.0-18.0) g/dL Hct (42-52) % MCV (80-100) fL MCH (25-34) pg MCHC (32-36) g/dL RDW Std Deviation (36.4-46.3) fL RDW Coeff of Minnie (11.5-14.5) % Plt Count (130-400) K/uL MPV (7.4-10.4) fL Sodium (136-145) mmol/L Potassium (3.5-5.1) mmol/L Chloride (98-107) mmol/L Carbon Dioxide (21-32) mmol/L Anion Gap (3-11) BUN (7-18) mg/dl Creatinine (0.6-1.4) mg/dl Est Cr Clr Drug Dosing ml/min Est GFR ( Amer) Est GFR (Non-Af Amer) BUN/Creatinine Ratio (10-20) Glucose (70-99) mg/dl POC Glucose 140 H (70-99) mg/dl Calcium (8.5-10.1) mg/dl Phosphorus (2.5-4.9) mg/dl Magnesium (1.8-2.4) mg/dl Total Bilirubin (0.2-1) mg/dl AST (15-37) U/L ALT (12-78) U/L Alkaline Phosphatase (45-117) U/L Total Protein (6.4-8.2) gm/dl Albumin (3.4-5.0) gm/dl Globulin (2.5-4.0) gm/dl Albumin/Globulin Ratio (0.9-2) Medications Administered Current Inpatient Medications Acetaminophen (Acetaminophen 325 Mg Tab) 650 mg PO Q4H PRN PRN Reason: Pain or Fever Stop: 06/22/20 00:45 Last Admin: 05/29/20 21:54 Dose: 650 mg Documented by: Albuterol (Albuterol Hfa 8 Gm Inhaler) 2 puffs INH Q4R PRN PRN Reason: shortness of breath Stop: 06/28/20 16:37 Amlodipine Besylate (Amlodipine Besylate 5 Mg Tab) 10 mg PO QAM MARY Stop: 06/24/20 08:59 Last Admin: 05/29/20 08:28 Dose: 10 mg Documented by: Aspirin (Aspirin 81 Mg Ectab) 81 mg PO DAILY MARY Stop: 06/22/20 08:59 Last Admin: 05/29/20 08:30 Dose: 81 mg Documented by: Atorvastatin Calcium (Atorvastatin 40 Mg Tab) 80 mg PO HS [facility] Stop: 06/22/20 20:59 Last Admin: 05/29/20 21:24 Dose: 80 mg Documented by: Dexamethasone (Dexamethasone 4 Mg Tab) 6 mg PO DAILY [facility] Stop: 06/03/20 11:14 Last Admin: 05/29/20 08:28 Dose: 6 mg Documented by: Dextrose (Dextrose 50% 50 Ml Syringe) 25 - 50 ml IV UD PRN; Protocol PRN Reason: Hypoglycemia Protocol Stop: 06/22/20 01:29 Last Admin: 05/29/20 21:38 Dose: 50 ml Documented by: Doxycycline Hyclate (Doxycycline Hyclate 100 Mg Cap) 100 mg PO BID [facility] Stop: 06/03/20 20:59 Last Admin: 05/29/20 21:55 Dose: 100 mg Documented by: Fluoxetine HCl (Fluoxetine Hcl 20 Mg Cap) 40 mg PO DAILY MARY Stop: 06/22/20 08:59 Last Admin: 05/29/20 08:30 Dose: 40 mg Documented by: Gabapentin (Gabapentin 600 Mg Tab) 600 mg PO QID MARY Stop: 06/22/20 08:59 Last Admin: 05/29/20 21:24 Dose: 600 mg Documented by: Glucagon (Glucagon For Inj 1 Mg Vial) 1 mg SQ UD PRN; Protocol PRN Reason: Hypoglycemia Protocol Stop: 06/22/20 01:29 Glucose (Glucose 40% Gel 15 Gm Tube) 15 - 30 gm PO UD PRN; Protocol PRN Reason: Hypoglycemia Protocol Stop: 06/22/20 01:29 Glucose (Glucose 10 Tabs/Tube) 4 - 8 tabs PO UD PRN; Protocol PRN Reason: Hypoglycemia Protocol Stop: 06/22/20 01:29 Last Admin: 05/29/20 21:15 Dose: 4 tabs Documented by: Heparin Sodium (Porcine) (Heparin Sod 5,000 Unit/0.5 Ml Vial) 5,000 units SQ Q8 [facility] Stop: 06/22/20 05:59 Last Admin: 05/30/20 06:05 Dose: 5,000 units Documented by: Hydralazine HCl (Hydralazine Hcl 25 Mg Tab) 25 mg PO TID [facility] Stop: 06/24/20 13:59 Last Admin: 05/29/20 21:24 Dose: 25 mg Documented by: Cefepime HCl 2,000 mg/ Syringe 20 mls @ 5 mls/min IV Q24H [facility]; Protocol Stop: 06/05/20 07:59 Last Admin: 05/29/20 08:35 Dose: 5 mls/min Documented by: Dextrose (D5w) 1,000 mls @ 50 mls/hr IV .Q20H [facility] Stop: 06/28/20 21:59 Last Admin: 05/29/20 21:58 Dose: 50 mls/hr Documented by: Furosemide 60 mg/ Syringe 6 mls @ 4 mls/min IV ONE ONE Stop: 05/30/20 08:43 Doxycycline Hyclate 100 mg/ (Dextrose) 110 mls @ 50 mls/hr IV Q12H [facility] Stop: 06/06/20 08:44 Albumin Human (Albumin 25%) 12.5 gm in 50 mls @ 50 mls/hr IV Q1H [facility] Stop: 05/30/20 10:44 Insulin Aspart (Insulin Aspart 100 Units/Ml 3 Ml Pen) 0 units SC ACHS [facility] Stop: 06/22/20 07:29 Last Admin: 05/29/20 22:05 Dose: Not Given Documented by: Insulin Glargine (Insulin Glargine Solostar 100 Units/Ml 3 Ml Pen) 44 units SQ DAILY [facility]; Protocol Stop: 06/27/20 08:59 Last Admin: 05/29/20 08:59 Dose: 44 units Documented by: Levothyroxine Sodium (Levothyroxine Sodium 137 Mcg Tablet) 137 mcg PO DAILYBB [facility] Stop: 06/22/20 06:29 Last Admin: 05/30/20 06:09 Dose: 137 mcg Documented by: Metronidazole (Metronidazole 500 Mg Tab) 500 mg PO TID [facility] Stop: 06/05/20 08:59 Last Admin: 05/29/20 21:55 Dose: 500 mg Documented by: Miscellaneous (Carbohydrates For Hypoglycemia ) 15 - 30 gm PO UD PRN PRN Reason: Hypoglycemia Treatment Stop: 06/22/20 01:29 Last Admin: 05/29/20 17:10 Dose: 15 gm Documented by: Miscellaneous Information (Pharmacy Glycemic Mgmt Consult) 1 ea N/A UD PRN PRN Reason: Consult Stop: 06/23/20 15:06 Miscellaneous Information (Cefepime Consult Active) 1 ea N/A UD PRN PRN Reason: Consult Stop: 06/28/20 07:21 Multi-Ingredient Cream (Eucerin Cr 120 Gm Jar) 1 appln EXT BID PRN PRN Reason: Rash Stop: 06/28/20 11:00 Nitroglycerin (Nitroglycerin Sl 0.4 Mg/Tab Tab) 0.4 mg SL UD PRN PRN Reason: Chest Pain Stop: 06/22/20 00:45 Ondansetron HCl (Ondansetron Inj 2 Mg/Ml 2 Ml Vial) 4 mg IV Q6H PRN PRN Reason: Nausea Stop: 06/22/20 00:45 Last Admin: 05/29/20 12:04 Dose: 4 mg Documented by: Pantoprazole Sodium (Pantoprazole 40 Mg Tab) 40 mg PO QAM [facility] Stop: 06/26/20 18:29 Last Admin: 05/29/20 08:31 Dose: 40 mg Documented by: Thiamine HCl (Thiamine Hcl 100 Mg Tab) 100 mg PO BID [facility] Stop: 06/28/20 08:59 Last Admin: 05/29/20 21:55 Dose: 100 mg Documented by: Vitamin B Complex/Folic Acid (Nephrocaps) 1 cap PO DAILY [facility] Stop: 06/22/20 08:59 Last Admin: 05/29/20 08:29 Dose: 1 cap Documented by: (1) Hypertension Hypertension type: essential hypertension Qualified Code(s): I10 - Essential (primary) hypertension
[2020-05-30] MEDS ORDERED: FUROSEMIDE 60 MG in SYRINGE 0 ML IV ONE ×2 (09:00→17:45)
[2020-05-30] MEDS ORDERED: MAGNESIUM SULFATE / D5W 1 GM/100 ML BAG IV ONE ×2 (09:30→22:58)
[2020-05-30] MEDS: CEFEPIME 2,000 MG in SYRINGE 0 ML IV SCH (09:57)
[2020-05-30] MEDS: ALBUMIN 25% 12.5 GM/50 ML VIAL IV SCH ×2 (09:58→11:13)
[2020-05-30] MEDS: PANTOprazole 40 MG TAB PO SCH (09:59)
[2020-05-30] MEDS: ASPIRIN 81 MG ECTAB PO SCH (09:59)
[2020-05-30] MEDS: FLUoxetine HCL 20 MG CAP PO SCH (09:59)
[2020-05-30] MEDS: GABAPENTIN 600 MG TAB PO SCH ×4 (10:00→21:02)
[2020-05-30] MEDS: dexAMETHasone 4 MG TAB PO SCH (10:00)
[2020-05-30] MEDS: hydrALAZINE HCL 25 MG TAB PO SCH ×3 (10:00→21:02)
[2020-05-30] MEDS: amLODIPine BESYLATE 5 MG TAB PO SCH (10:00)
[2020-05-30] MEDS: NEPHROCAPS PO SCH (10:00)
[2020-05-30] MEDS: THIAMINE HCL 100 MG TAB PO SCH ×2 (10:02→21:02)
[2020-05-30] MEDS: metroNIDAZOLE 500 MG TAB PO SCH ×3 (10:02→21:02)
[2020-05-30] MEDS: ACETAMINOPHEN 325 MG TAB PO PRN (10:24)
[2020-05-30] MEDS: DOXYCYCLINE HYCLATE 100 MG in DEXTROSE 5% 100 ML IV SCH ×2 (12:04→23:52)
[2020-05-30] MEDS: INSULIN GLARGINE SOLOSTAR 100 UNITS/ML 3 ML PEN SQ SCH (12:47)
--- NOTE | 2020-05-30 14:19 | Pharmacy Report ---
Pharmacy Glycemic Short Note 2 - Date of Service May 30, 2020 - Glycemic Short BSG Results (Last 24 hours): 05/29/20 05/29/20 05/29/20 16:41 17:07 17:24 Glucose POC Glucose 61 L* 57 L* 72 05/29/20 05/29/20 05/29/20 21:13 21:15 21:33 Glucose POC Glucose 38 L* 44 L* 38 L* 05/29/20 05/29/20 05/30/20 21:57 23:54 02:21 Glucose POC Glucose 106 H 107 H 71 05/30/20 05/30/20 05/30/20 04:59 08:07 11:25 Glucose 168 H POC Glucose 187 H 221 H Outpatient Anti-diabetic Regimen: * Lantus 15 units SC qAM, 8 units SC qPM * A1c = 8.3 % on 05/23/20 Risk Factors for Insulin Resistance: * Steroids: dexamethasone 6 mg po daily, day 7 of anticipated 10 day course (for COVID-19) * Infection: COVID-19, possible superimposed PNA * Diet: T1DM ASSESSMENT: 05/30/20: * Pt has received 58 units of insulin over the past 24hrs * 44 units of basal insulin with Lantus * 14 units of bolus insulin with NovoLog * BSGs ranging 38-221 mg/dl * Hypoglycemic multiple times last night, held Lantus this morning until blood sugars soto to 221mg/dl at lunch, resume Lantus at 50% reduction * Continue CF/CR at this time, loosened yesterday, may need to tighten tomorrow for better steroid coverage since basal is being reduced significantly * Patient remains on PO Dexamethasone 05/29/20: * Pt has received 81 units of insulin over the past 24hrs * 44 units of basal insulin with Lantus * 37 units of bolus insulin with NovoLog * BSGs ranging 82-232 mg/dl * Hyperglycemia secondary to steroids. Pt is requiring abou 2x outpatient dosing of insulin for steroid induced hyperglycemia (dexamethasone for COVID+) Insulin regimen will need significantly tapered once dxm dc. * BSGs trending downwards throughout the day - will loosen CF/CR * AM fasting BSG is in goal range at 142 mg/dl. No changes needed to basal insulin 05/28/20: * Pt has received 65 units of insulin over the past 24 hrs * 32 units of basal insulin with Lantus * 33 units of bolus insulin with NovoLog * BSGs ranging 98-314 mg/dl * Hyperglycemia continues secondary to daily dexamethasone * Patient received additional 9 units of correctional insulin overnight and correctional insulin prior to meals yesterday. Will add this to basal insulin dosing and increase Lantus to 44 units SQ daily. * Will tighten CR since steroids have their most profound effect on post- prandial hyperglycemia. Will loosen CF since CR tightening AND basal insulin significantly increased. 05/27/20 * Stressors stable (see above), except possible XOCHITL noted today * AM fasting BSG significantly elevated - will increase Lantus and add two overnight checks tonight * Post-prandial BSG's >180 mg/dL x2 yesterday - will tighten Novolog CHO ratio 05/26/20 * Stressors stable (see above) * BSG's gradually but steadily trended down yesterday after increase in Lantus in AM and tightening of Novolog parameters in PM. * Now with BSG of 191 mg/dL this AM * Will cautiously increase Lantus due to AM hyperglycemia and also 9 units of correctional insulin needed overnight. This dose may precipitate hypoglycemia in the AM were it not for the dexamethasone ordered, therefore ordered to be given simultaneously * Will continue with the current Novolog parameters as they were already tightened last evening * Plan for IV bolus for any BSG > 300 mg/dL - would like to continue to avoid standard-protocol insulin drip unless necessary due to need for hourly encounters/adjustments in COVID positive patient. BSG trend is reasonable at this time therefore OK for now. 05/25/20 * 55 yo M with T1DM admitted with COVID-19 and possible superimposed PNA * BSG's initially adequately controlled on 05/23, except AM hypoglycemia. * Severe AM hypoglycemia noted 05/24 AM prompted significant reduction in Lantus (from total of 23 to 15 units/24 hours yesterday). This reduction caused hyperglycemia this AM - will increase Lantus * Dexamethasone initiated 05/24 which caused hyperglycemia in the evening which prompted significant tightening of Novolog parameters. This tightening caused mild hypoglycemia last evening - Novolog parameters were loosened at that time. No further changes for now. May need to be tightened slightly later * IV insulin indicated due to better control BSG's but will give as one-time boluses given COVID positivity PLAN FOR INPATIENT GLYCEMIC CONTROL: * Basal insulin -DECREASE * Lantus 20 units SQ daily * Bolus insulin: * NovoLog per scale ACHS or Q6hrs while NPO * Goal Range: Low 110 mg/dL - High 140 mg/dL * Correction Factor: 30 mg/dL/unit * Nutritional / Prandial insulin per carb ratio of 1 unit per 6 grams CHO consumed Plan for discharge: Dependent on whether patient will be discharged on steroids
[2020-05-30] MEDS ORDERED: FUROSEMIDE 10 MG/ML 10 ML VIAL IV ONE (17:27)
[2020-05-30] MEDS: DEXTROSE 5% 1,000 ML IV SCH (17:39)
[2020-05-30] MEDS ORDERED: FUROSEMIDE 40 MG/4 ML VIAL IV ONE (17:45)
[2020-05-30 20:00] LABS: Hemoglobin 7.9 g/dL (14.0-18.0)
[2020-05-30 20:15] LABS: Partial Thromboplastin Ratio 1.4; Partial Thromboplastin Time 40.3 Seconds (21.0-31.0)
[2020-05-30] MEDS: ATORVASTATIN 40 MG TAB PO SCH (21:02)
[2020-05-30] MEDS: HEPARIN SODIUM/DEXTROSE 25,000 UNITS/500 ML BAG IV SCH (21:09)
[2020-05-30] MEDS ORDERED: ALBUTEROL HFA 8 GM INHALER INH ONE (22:57)
[2020-05-30] MEDS ORDERED: methylPREDNISolone 20 MG in SYRINGE 0 ML IV STA (23:00)
[2020-05-30] MEDS: ALBUTEROL HFA 8 GM INHALER INH SCH (23:31)
[2020-05-31 00:03] LABS: Base Excess ABG -2.9 mEq/L (-9-1.8); HCO3 ABG 21 mmol/L (19-24); Oxygen Saturation ABG 85.9 % (90-95); PCO2 ABG 30 mmHg (35-46); PO2 ABG 51 mmHg (80-95); pH ABG 7.46 (7.35-7.45)
[2020-05-31 00:07] LABS: Allen Test Pos (Pos)
[2020-05-31 00:15] LABS: BUN Creatinine Ratio 18.3 (10-20); Calcium 7.6 mg/dl (8.5-10.1); Creatinine Clr Calc Pharmacy 26.5 ml/min; Est GFR (Non-African American) 18.9; Magnesium 2.1 mg/dl (1.8-2.4)
[2020-05-31 00:28] LABS: Beta-Hydroxybutyrate 1.66 mg/dl (0.2-2.81)
[2020-05-31 03:25] LABS: Hematocrit (blood only) 25.6 % (42-52); Hemoglobin 8.4 g/dL (14.0-18.0); Mean Corpuscular Hemoglobin 27.6 pg (25-34); Mean Corpuscular Hgb Conc 32.8 g/dL (32-36); Mean Corpuscular Volume 84.2 fL (80-100); Mean Platelet Volume 10.1 fL (7.4-10.4); Platelet Count 418 K/uL (130-400); RDW Coefficient of Variation 16.7 % (11.5-14.5); Red Blood Count 3.04 M/uL (4.7-6.1); White Blood Count 9.07 K/uL (4.8-10.8)
[2020-05-31 04:04] LABS: Calcium 7.5 mg/dl (8.5-10.1); Creatinine Clr Calc Pharmacy 26.5 ml/min; Est GFR (Non-African American) 18.9; Magnesium 2.3 mg/dl (1.8-2.4); Potassium 4.1 mmol/L (3.5-5.1)
[2020-05-31 04:16] LABS: Beta-Hydroxybutyrate 3.8 mg/dl (0.2-2.81); Phosphorus 3.7 mg/dl (2.5-4.9)
[2020-05-31] MEDS ORDERED: INSULIN ASPART 100 UNITS/ML 3 ML PEN SC STA (04:24)
[2020-05-31 05:34] LABS: Partial Thromboplastin Ratio > 5.0
[2020-05-31 05:49] LABS: Partial Thromboplastin Time > 139.0 Seconds (21.0-31.0)
[2020-05-31] MEDS: LEVOTHYROXINE SODIUM 137 MCG TABLET PO SCH (05:54)
--- NOTE | 2020-05-31 07:16 | Ultrasound Report ---
BILATERAL LOWER EXTREMITY VENOUS DOPPLER CLINICAL HISTORY: r/o DVT COMPARISON STUDY: Bilateral lower extremity venous Doppler ultrasound May 22, 2020. TECHNIQUE: Sonography of the deep venous system of the bilateral lower extremities was performed. Co mpression and augmentation were evaluated. FINDINGS: The bilateral common femoral, superficial femoral and popliteal veins were compressible. A ugmentation was normal. Flow was shown within the deep calf vessels. IMPRESSION: No evidence of deep venous thrombus within the bilateral lower extremities. ACT 112: Negative or not required by law. Electronically signed by: Wong Lazaro M.D. 05/31/2020 7:14 AM
[2020-05-31] MEDS ORDERED: metOLazone 2.5 MG TABLET PO ONE (07:23)
--- NOTE | 2020-05-31 07:33 | Hospitalist Progress Note ---
Date of Service May 31, 2020 Assessment & Plan (1) Pneumonia: +COVID CXR reports small left pleural effusion and left lung base consolidation Continued ceftriaxone and doxycycline while inpt, repeat CXR shows progression of lung opacity, switched ceft to cefepime and added flagyl, pt now on 11L of O2 Continue dexamethasone 6mg po Patient not a candidate for remdesivir due to renal function Continue to manage blood glucose Obtained consent for convalescent plasma (05/27/20), and provided pt with FDA EUA fact sheet for convalescent plasma Now s/p transfusion of 1 unit (05/28 night), received 40 IV lasix prior to transfusion Currently oxygen requirement much increased 13-15L via oxymask, now transferred to high flow nasal cannula Wean oxygen as tolerated Will need ambulatory pulse ox on discharge DD dimer was elevated at 1490. Negative dopplers Can't get CT PE d/t poor renal function VQ scan ordered - notified that the study can not be obtained on COVID pts Repeat LE Dopplers - negative Pt has been on heparin sq q8h for DVT ppx Switched to IV heparin given increased oxygen requirement, this was discussed including the risk of bleeding, with the pt who is in agreement -Discussed further with pulmonary medicine, seems that increased oxygen requirement is due to fluid overload, okay to stop IV heparin. Patient also had some increased bleeding from IV site. We will switch back to subcu DVT Heparin prophylaxis. -Gave 60 IV Lasix with 2.5 metolazone in the morning, then 5 mg metolazone with 100 mg of IV Lasix (05/31/20). Per nephrology, 80 mg IV Lasix twice daily ordered ICU notified in case pt's status deteriorates (2) XOCHITL (acute kidney injury): Cr is 2.44>>2.7>>2.82, however then up to 3.47, then down to 3.2 , now back to 3.4 and stable XOCHITL on CKD d/t ATN in the setting of COVID 19infection Per physician at [facility], patient has CKD and last lab work in 12/2019 showed Cr of 2.32 Due to poor oral intake received 1L IVF NSS at 80cc/h while inpt Monitor Cr and avoid nephrotoxins [employer] Adviser evaluation appreciated - ATN, worsening Cr, concern for poss. need for dialysis, no need for extra IV fluids Replete hypokalemia -Patient appears fluid overloaded, and now has increased oxygen requirement, diuresis increased. (3) Diabetes mellitus type I: Continue insulin and lantus A1c is 8.3 Has had hypoglycemic episodes likely due to poor po intake Has been hyperglycemic likely with steroid therapy Continue to optimize glycemic control pharmacist on board (4) Hypothyroidism: Continue levothyroxine (5) Hypertension: now controlled Lisinopril on hold for now due to XOCHITL Continue amlodipine Admission and Anticipated Discharge Date Admission Date: May 22, 2020 Subjective ICU notified for evaluation as pt on 13L of O2, then on 15L of O2 via oxymask. Dexamethasone switched from PO to IV by microchip specialist. Solumedrol given by microchip specialist. Pt received another dose of lasix last evening. Was started on IV heparin last evening, for concern of PE given increasing O2 requirement. Discussed with pulmonology, high flow nasal cannula. Increased diuresis recommended. Patient is lying in bed, in no acute distress, despite of being on HF nasal cannula, he says he has only some shortness of breath but he is actually not in distress. Denies any chest pain. Denies abdominal pain. Has been having some nausea on and off. Review of Systems Review of Systems: All systems reviewed & are unremarkable except as noted in HPI & below Constitutional: no fever and no chills Respiratory: + cough and + dyspnea Cardiovascular: no chest pain and no palpitations Gastrointestinal: + nausea; no abdominal pain and no vomiting Physical Exam Physical Exam: Constitutional: + well hydrated; no acute distress on HF NC Eyes: PERRL, EOMI, conjunctivae normal, anicteric sclerae ENMT: external ear and nose normal, oropharynx normal Respiratory: normal respiratory effort; no respiratory distress Auscultation: lungs clear to auscultation bilaterally Cardiovascular: RRR, no murmur, no edema Gastrointestinal (Abdomen): normal bowel sounds, soft, nontender Musculoskeletal: moves extremities Neurologic: PERRL, EOMI, no face palsy, no dysarthria Genitourinary: no CVA tenderness Skin: warm, dry, Psoriatic lesions Results & Data Results & Data ([facility]) Vital Signs (Past 12 Hours) Vital Signs Temp Pulse Pulse Resp BP Pulse Ox 05/31/20 03:48 36.4 C L 75 20 123/67 91 05/30/20 23:59 69 05/30/20 23:33 36.4 C L 78 18 117/61 91 05/30/20 23:31 78 22 91 Laboratory Results 05/31/20 05/31/20 05/31/20 Range/Units 07:23 04:48 03:00 WBC (4.8-10.8) K/uL RBC (4.7-6.1) M/uL Hgb (14.0-18.0) g/dL Hct (42-52) % MCV (80-100) fL MCH (25-34) pg MCHC (32-36) g/dL RDW Std Deviation (36.4-46.3) fL RDW Coeff of Minnie (11.5-14.5) % Plt Count (130-400) K/uL MPV (7.4-10.4) fL APTT > 139.0 H* Cancelled (21.0-31.0) Seconds PTT Ratio > 5.0 Cancelled ABG pH ABG pCO2 ABG pO2 ABG HCO3 ABG O2 Saturation ABG Base Excess Serge Test Barometric Pressure Oxygen Given Sodium (136-145) mmol/L Potassium (3.5-5.1) mmol/L Chloride (98-107) mmol/L Carbon Dioxide (21-32) mmol/L Anion Gap (3-11) BUN (7-18) mg/dl Creatinine (0.6-1.4) mg/dl Est Cr Clr Drug Dosing ml/min Est GFR ( Amer) Est GFR (Non-Af Amer) BUN/Creatinine Ratio (10-20) Glucose (70-99) mg/dl POC Glucose 417 H* (70-99) mg/dl Calcium (8.5-10.1) mg/dl Phosphorus (2.5-4.9) mg/dl Magnesium (1.8-2.4) mg/dl Beta-Hydroxybutyric Acd (0.2-2.81) mg/dl 05/31/20 05/31/20 05/30/20 Range/Units 03:00 03:00 23:50 WBC 9.07 (4.8-10.8) K/uL RBC 3.04 L (4.7-6.1) M/uL Hgb 8.4 L (14.0-18.0) g/dL Hct 25.6 L (42-52) % MCV 84.2 (80-100) fL MCH 27.6 (25-34) pg MCHC 32.8 (32-36) g/dL RDW Std Deviation 51.0 H (36.4-46.3) fL RDW Coeff of Minnie 16.7 H (11.5-14.5) % Plt Count 418 H (130-400) K/uL MPV 10.1 (7.4-10.4) fL APTT (21.0-31.0) Seconds PTT Ratio ABG pH 7.46 H ABG pCO2 30 L ABG pO2 51 L ABG HCO3 21 ABG O2 Saturation 85.9 L ABG Base Excess -2.9 Serge Test Pos Barometric Pressure Oxygen Given 15 Sodium 134 L (136-145) mmol/L Potassium 4.1 (3.5-5.1) mmol/L Chloride 102 (98-107) mmol/L Carbon Dioxide 25 (21-32) mmol/L Anion Gap 7.0 (3-11) BUN 65 H (7-18) mg/dl Creatinine 3.42 H (0.6-1.4) mg/dl Est Cr Clr Drug Dosing 26.5 ml/min Est GFR ( Amer) 22.0 Est GFR (Non-Af Amer) 18.9 BUN/Creatinine Ratio 19.0 (10-20) Glucose 445 H* (70-99) mg/dl POC Glucose (70-99) mg/dl Calcium 7.5 L (8.5-10.1) mg/dl Phosphorus 3.7 D (2.5-4.9) mg/dl Magnesium 2.3 (1.8-2.4) mg/dl Beta-Hydroxybutyric Acd 3.80 H (0.2-2.81) mg/dl 05/30/20 05/30/20 05/30/20 Range/Units 23:42 23:29 23:21 WBC (4.8-10.8) K/uL RBC (4.7-6.1) M/uL Hgb (14.0-18.0) g/dL Hct (42-52) % MCV (80-100) fL MCH (25-34) pg MCHC (32-36) g/dL RDW Std Deviation (36.4-46.3) fL RDW Coeff of Minnie (11.5-14.5) % Plt Count (130-400) K/uL MPV (7.4-10.4) fL APTT (21.0-31.0) Seconds PTT Ratio ABG pH Cancelled ABG pCO2 Cancelled ABG pO2 Cancelled ABG HCO3 Cancelled ABG O2 Saturation Cancelled ABG Base Excess Cancelled Serge Test Cancelled Barometric Pressure Cancelled Oxygen Given Cancelled Sodium (136-145) mmol/L Potassium (3.5-5.1) mmol/L Chloride (98-107) mmol/L Carbon Dioxide (21-32) mmol/L Anion Gap (3-11) BUN (7-18) mg/dl Creatinine (0.6-1.4) mg/dl Est Cr Clr Drug Dosing ml/min Est GFR ( Amer) Est GFR (Non-Af Amer) BUN/Creatinine Ratio (10-20) Glucose (70-99) mg/dl POC Glucose 384 H* 368 H* (70-99) mg/dl Calcium (8.5-10.1) mg/dl Phosphorus (2.5-4.9) mg/dl Magnesium (1.8-2.4) mg/dl Beta-Hydroxybutyric Acd (0.2-2.81) mg/dl 05/30/20 05/30/20 05/30/20 Range/Units 23:21 20:46 20:44 WBC (4.8-10.8) K/uL RBC (4.7-6.1) M/uL Hgb (14.0-18.0) g/dL Hct (42-52) % MCV (80-100) fL MCH (25-34) pg MCHC (32-36) g/dL RDW Std Deviation (36.4-46.3) fL RDW Coeff of Minnie (11.5-14.5) % Plt Count (130-400) K/uL MPV (7.4-10.4) fL APTT (21.0-31.0) Seconds PTT Ratio ABG pH ABG pCO2 ABG pO2 ABG HCO3 ABG O2 Saturation ABG Base Excess Serge Test Barometric Pressure Oxygen Given Sodium 136 (136-145) mmol/L Potassium 4.0 (3.5-5.1) mmol/L Chloride 105 (98-107) mmol/L Carbon Dioxide 22 (21-32) mmol/L Anion Gap 9.0 (3-11) BUN 63 H (7-18) mg/dl Creatinine 3.42 H (0.6-1.4) mg/dl Est Cr Clr Drug Dosing 26.5 ml/min Est GFR ( Amer) 22.0 Est GFR (Non-Af Amer) 18.9 BUN/Creatinine Ratio 18.3 (10-20) Glucose 361 H* (70-99) mg/dl POC Glucose 342 H* 364 H* (70-99) mg/dl Calcium 7.6 L (8.5-10.1) mg/dl Phosphorus (2.5-4.9) mg/dl Magnesium 2.1 (1.8-2.4) mg/dl Beta-Hydroxybutyric Acd 1.66 (0.2-2.81) mg/dl 05/30/20 05/30/20 05/30/20 Range/Units 19:42 19:42 16:49 WBC (4.8-10.8) K/uL RBC (4.7-6.1) M/uL Hgb 7.9 L (14.0-18.0) g/dL Hct 24.0 L (42-52) % MCV (80-100) fL MCH (25-34) pg MCHC (32-36) g/dL RDW Std Deviation (36.4-46.3) fL RDW Coeff of Minnie (11.5-14.5) % Plt Count (130-400) K/uL MPV (7.4-10.4) fL APTT 40.3 H (21.0-31.0) Seconds PTT Ratio 1.4 ABG pH ABG pCO2 ABG pO2 ABG HCO3 ABG O2 Saturation ABG Base Excess Serge Test Barometric Pressure Oxygen Given Sodium (136-145) mmol/L Potassium (3.5-5.1) mmol/L Chloride (98-107) mmol/L Carbon Dioxide (21-32) mmol/L Anion Gap (3-11) BUN (7-18) mg/dl Creatinine (0.6-1.4) mg/dl Est Cr Clr Drug Dosing ml/min Est GFR ( Amer) Est GFR (Non-Af Amer) BUN/Creatinine Ratio (-20) Glucose (70-99) mg/dl POC Glucose 294 H (70-99) mg/dl Calcium (8.5-10.1) mg/dl Phosphorus (2.5-4.9) mg/dl Magnesium (1.8-2.4) mg/dl Beta-Hydroxybutyric Acd (0.2-2.81) mg/dl 05/30/20 05/30/20 Range/Units 11:25 08:07 WBC (4.8-10.8) K/uL RBC (4.7-6.1) M/uL Hgb (14.0-18.0) g/dL Hct (42-52) % MCV (80-100) fL MCH (25-34) pg MCHC (32-36) g/dL RDW Std Deviation (36.4-46.3) fL RDW Coeff of Minnie (11.5-14.5) % Plt Count (130-400) K/uL MPV (7.4-10.4) fL APTT (21.0-31.0) Seconds PTT Ratio ABG pH ABG pCO2 ABG pO2 ABG HCO3 ABG O2 Saturation ABG Base Excess Serge Test Barometric Pressure Oxygen Given Sodium (136-145) mmol/L Potassium (3.5-5.1) mmol/L Chloride (98-107) mmol/L Carbon Dioxide (21-32) mmol/L Anion Gap (3-11) BUN (7-18) mg/dl Creatinine (0.6-1.4) mg/dl Est Cr Clr Drug Dosing ml/min Est GFR ( Amer) Est GFR (Non-Af Amer) BUN/Creatinine Ratio (-20) Glucose (70-99) mg/dl POC Glucose 221 H 187 H (70-99) mg/dl Calcium (8.5-10.1) mg/dl Phosphorus (2.5-4.9) mg/dl Magnesium (1.8-2.4) mg/dl Beta-Hydroxybutyric Acd (0.2-2.81) mg/dl Medications Administered Current Inpatient Medications Acetaminophen (Acetaminophen 325 Mg Tab) 650 mg PO Q4H PRN PRN Reason: Pain or Fever Stop: 06/22/20 00:45 Last Admin: 05/30/20 10:24 Dose: 650 mg Documented by: Albuterol (Albuterol Hfa 8 Gm Inhaler) 2 puffs INH Q4R PRN PRN Reason: shortness of breath Stop: 06/28/20 16:37 Albuterol (Albuterol Hfa 8 Gm Inhaler) 2 puffs INH Q6R MARY Stop: 06/29/20 22:59 Last Admin: 05/30/20 23:31 Dose: 2 puffs Documented by: Amlodipine Besylate (Amlodipine Besylate 5 Mg Tab) 10 mg PO QAM [facility] Stop: 06/24/20 08:59 Last Admin: 05/30/20 10:00 Dose: 10 mg Documented by: Aspirin (Aspirin 81 Mg Ectab) 81 mg PO DAILY [facility] Stop: 06/22/20 08:59 Last Admin: 05/30/20 09:59 Dose: 81 mg Documented by: Atorvastatin Calcium (Atorvastatin 40 Mg Tab) 80 mg PO HS [facility] Stop: 06/22/20 20:59 Last Admin: 05/30/20 21:02 Dose: 80 mg Documented by: Dextrose (Dextrose 50% 50 Ml Syringe) 25 - 50 ml IV UD PRN; Protocol PRN Reason: Hypoglycemia Protocol Stop: 06/22/20 01:29 Last Admin: 05/29/20 21:38 Dose: 50 ml Documented by: Fluoxetine HCl (Fluoxetine Hcl 20 Mg Cap) 40 mg PO DAILY [facility] Stop: 06/22/20 08:59 Last Admin: 05/30/20 09:59 Dose: 40 mg Documented by: Gabapentin (Gabapentin 600 Mg Tab) 600 mg PO QID [facility] Stop: 06/22/20 08:59 Last Admin: 05/30/20 21:02 Dose: 600 mg Documented by: Glucagon (Glucagon For Inj 1 Mg Vial) 1 mg SQ UD PRN; Protocol PRN Reason: Hypoglycemia Protocol Stop: 06/22/20 01:29 Glucose (Glucose 40% Gel 15 Gm Tube) 15 - 30 gm PO UD PRN; Protocol PRN Reason: Hypoglycemia Protocol Stop: 06/22/20 01:29 Glucose (Glucose 10 Tabs/Tube) 4 - 8 tabs PO UD PRN; Protocol PRN Reason: Hypoglycemia Protocol Stop: 06/22/20 01:29 Last Admin: 05/29/20 21:15 Dose: 4 tabs Documented by: Hydralazine HCl (Hydralazine Hcl 25 Mg Tab) 25 mg PO TID [facility] Stop: 06/24/20 13:59 Last Admin: 05/30/20 21:02 Dose: 25 mg Documented by: Cefepime HCl 2,000 mg/ Syringe 20 mls @ 5 mls/min IV Q24H [facility]; Protocol Stop: 06/05/20 07:59 Last Admin: 05/30/20 09:57 Dose: 5 mls/min Documented by: Dextrose (D5w) 1,000 mls @ 50 mls/hr IV .Q20H [facility] Stop: 06/28/20 21:59 Last Admin: 05/30/20 17:39 Dose: 50 mls/hr Documented by: Doxycycline Hyclate 100 mg/ (Dextrose) 110 mls @ 50 mls/hr IV Q12H [facility] Stop: 06/06/20 09:59 Last Infusion: 05/31/20 02:05 Dose: Infused Documented by: Heparin Sodium/Dextrose (Heparin Sodium/Dextrose) 25,000 units in 500 mls @ 0 mls/hr IV .Q0M [facility]; Protocol Stop: 06/29/20 17:44 Last Titration: 05/31/20 05:51 Dose: 0 units/hr, 0 mls/hr Documented by: Dexamethasone Sodium Phosphate (6 mg/ Syringe) 1.5 mls @ 1 mls/min IV DAILY [facility] Stop: 06/30/20 08:59 Furosemide 80 mg/ Syringe 8 mls @ 4 mls/min IV 0745 ONE Stop: 05/31/20 07:46 Insulin Aspart (Insulin Aspart 100 Units/Ml 3 Ml Pen) 0 units SC ACHS [facility] Stop: 06/22/20 07:29 Last Admin: 05/30/20 21:09 Dose: 7 units Documented by: Insulin Glargine (Insulin Glargine Solostar 100 Units/Ml 3 Ml Pen) 20 units SQ DAILY [facility]; Protocol Stop: 06/29/20 11:59 Last Admin: 05/30/20 12:47 Dose: 20 units Documented by: Levothyroxine Sodium (Levothyroxine Sodium 137 Mcg Tablet) 137 mcg PO DAILYBB [facility] Stop: 06/22/20 06:29 Last Admin: 05/31/20 05:54 Dose: 137 mcg Documented by: Metronidazole (Metronidazole 500 Mg Tab) 500 mg PO TID [facility] Stop: 06/05/20 08:59 Last Admin: 05/30/20 21:02 Dose: 500 mg Documented by: Miscellaneous (Carbohydrates For Hypoglycemia ) 15 - 30 gm PO UD PRN PRN Reason: Hypoglycemia Treatment Stop: 06/22/20 01:29 Last Admin: 05/29/20 17:10 Dose: 15 gm Documented by: Miscellaneous Information (Pharmacy Glycemic Mgmt Consult) 1 ea N/A UD PRN PRN Reason: Consult Stop: 06/23/20 15:06 Miscellaneous Information (Cefepime Consult Active) 1 ea N/A UD PRN PRN Reason: Consult Stop: 06/28/20 07:21 Multi-Ingredient Cream (Eucerin Cr 120 Gm Jar) 1 appln EXT BID PRN PRN Reason: Rash Stop: 06/28/20 11:00 Nitroglycerin (Nitroglycerin Sl 0.4 Mg/Tab Tab) 0.4 mg SL UD PRN PRN Reason: Chest Pain Stop: 06/22/20 00:45 Ondansetron HCl (Ondansetron Inj 2 Mg/Ml 2 Ml Vial) 4 mg IV Q6H PRN PRN Reason: Nausea Stop: 06/22/20 00:45 Last Admin: 05/29/20 12:04 Dose: 4 mg Documented by: Pantoprazole Sodium (Pantoprazole 40 Mg Tab) 40 mg PO QAM [facility] Stop: 06/26/20 18:29 Last Admin: 05/30/20 09:59 Dose: 40 mg Documented by: Thiamine HCl (Thiamine Hcl 100 Mg Tab) 100 mg PO BID MARY Stop: 06/28/20 08:59 Last Admin: 05/30/20 21:02 Dose: 100 mg Documented by: Vitamin B Complex/Folic Acid (Nephrocaps) 1 cap PO DAILY MARY Stop: 06/22/20 08:59 Last Admin: 05/30/20 10:00 Dose: 1 cap Documented by: (1) Hypertension Hypertension type: essential hypertension Qualified Code(s): I10 - Essential (primary) hypertension
[2020-05-31] MEDS ORDERED: FUROSEMIDE 80 MG in SYRINGE 0 ML IV ONE (07:45)
[2020-05-31] MEDS: dexAMETHasone 6 MG in SYRINGE 0 ML IV SCH (08:19)
[2020-05-31] MEDS: CEFEPIME 2,000 MG in SYRINGE 0 ML IV SCH (08:20)
--- NOTE | 2020-05-31 08:22 | XRay Report ---
XR chest 1V portable CLINICAL HISTORY: Hypoxia COMPARISON STUDY: 05/29/2020 FINDINGS: The cardiac and mediastinal contours remain stable. There is a suspected trace left pleural effusion. There are bilateral interstitial pulmonary opacities, slightly progressive the right lung base and slightly improved at the left lung base. The findings could be secondary to either pulmonary edema or infectious/inflammatory process.[ IMPRESSION: 1. Bilateral interstitial pulmonary opacities, minimally progressive on the right, and slightly impro armando on the left. ACT 112: Negative or not required by law. Electronically signed by: Jason Ram M.D. 05/31/2020 8:21 AM
[2020-05-31] MEDS: GABAPENTIN 600 MG TAB PO SCH ×4 (08:23→21:27)
[2020-05-31] MEDS: FLUoxetine HCL 20 MG CAP PO SCH (08:24)
[2020-05-31] MEDS: hydrALAZINE HCL 25 MG TAB PO SCH ×3 (08:24→21:28)
[2020-05-31] MEDS: PANTOprazole 40 MG TAB PO SCH (08:24)
[2020-05-31] MEDS: NEPHROCAPS PO SCH (08:24)
[2020-05-31] MEDS: amLODIPine BESYLATE 5 MG TAB PO SCH (08:25)
[2020-05-31] MEDS: metroNIDAZOLE 500 MG TAB PO SCH ×3 (08:25→21:28)
[2020-05-31] MEDS: THIAMINE HCL 100 MG TAB PO SCH ×2 (08:26→21:28)
[2020-05-31] MEDS: ASPIRIN 81 MG ECTAB PO SCH (08:27)
[2020-05-31] MEDS: ONDANSETRON INJ 2 MG/ML 2 ML VIAL IV PRN ×2 (08:41→17:29)
[2020-05-31 08:43] LABS: Partial Thromboplastin Ratio > 5.0
[2020-05-31] MEDS: INSULIN ASPART 100 UNITS/ML 3 ML PEN SC SCH ×4 (08:49→21:53)
[2020-05-31 08:50] LABS: Partial Thromboplastin Time > 139.0 Seconds (21.0-31.0)
[2020-05-31] MEDS: INSULIN GLARGINE SOLOSTAR 100 UNITS/ML 3 ML PEN SQ SCH (08:50)
[2020-05-31] MEDS ORDERED: NovoLIN-N (NPH) PER UNIT CHARGE SQ SCH (09:00)
[2020-05-31] MEDS ORDERED: dexAMETHasone 6 MG in DEXTROSE 5% 25 ML IV SCH (09:00)
--- NOTE | 2020-05-31 09:10 | XRay Report ---
XR chest 1V portable CLINICAL HISTORY: incr. O2 req., follow up COMPARISON STUDY: Chest radiograph May 30, 2020. FINDINGS: Lung volumes are normal. There is no pneumothorax. There are trace bilateral pleural effusi ons. Right lower lung airspace opacity persists. Left perihilar opacity has slightly increased. Diffu se interstitial thickening has slightly increased. Cardiomediastinal silhouette is stable. IMPRESSION: 1. Slight increase in bilateral airspace opacities with interstitial thickening. Pneumonia is favored . Asymmetric pulmonary edema could appear similar. 2. Trace bilateral pleural effusions. ACT 112: Negative or not required by law. Electronically signed by: Wong Lazaro M.D. 05/31/2020 9:08 AM
[2020-05-31 09:28] LABS: C Reactive Protein 8.42 mg/dl (0-0.29); Ferritin 206.7 ng/ml (8-388)
[2020-05-31 10:43] LABS: Partial Thromboplastin Ratio 1.6
[2020-05-31 11:06] LABS: Partial Thromboplastin Time 45.7 Seconds (21.0-31.0)
[2020-05-31] MEDS: DOXYCYCLINE HYCLATE 100 MG in DEXTROSE 5% 100 ML IV SCH ×2 (11:09→22:36)
[2020-05-31] MEDS: ALBUTEROL HFA 8 GM INHALER INH SCH (11:38)
[2020-05-31] MEDS: Heparin IV Adult Wt-Based Standard *NO* Bolus Protocol IV SCH (11:38)
--- NOTE | 2020-05-31 12:55 | Pulmonary Consultation ---
Date of Consultation May 31, 2020 Assessment & Plan (1) Pneumonia: Chest x-ray 05/31/2020 personally reviewed: Portable film, right lower lobe haziness as well as left upper lobe haziness appreciated. Is increased vascular marking compared to chest x-ray done 05/30/2020. --Hypoxic respiratory failure Multifactorial COVID-19 pneumonia playing a role on top of fluid overload For COVID-19 recommend continuing with dexamethasone for total of 10 days s/p convalescent plasma 1 unit (05/28 night) First fluid overload and CKD --> recommend diuresis as tolerated to keep the patient negative balance Procalcitonin 0.07 --> 0.14 For hypoxia continue with O2 supplementation to keep oxygen saturation greater than 88%. If the patient is needing more than 6 L would recommend high flow, the patient is still in distress would recommend BiPAP Awake proning as tolerated. Patient's D-dimer was elevated when he came to the hospital. He also has underlying CKD. The possibility of PE is low but still in the differential given Covid is a hypercoagulable state. Patient is currently on heparin drip. We could order a repeat D-dimer and the D-dimer is around the same level as it was before then we can transition the drip to subcu heparin instead I doubt patient has bacterial pneumonia given the procalcitonin was 0.07 at presentation and repeat procalcitonin was only 0.14 with no significant worsening on the chest x-ray when it comes to the consolidation process --CKD Nephrology is on board If the plan is dialysis in future Would recommend permacath placement Plan: Given there is worsening on the chest x-ray which is inclining more towards vascular congestion. The possibility of PE is low. Although patient has CKD and his D-dimer was elevated at presentation. We could repeat a D-dimer to see how much it has increased or remained around the same. Doppler bilateral lower extremity was also negative. The possibility of PE is low. Continue with diuresis to keep the patient negative balance. I do not think patient has bacterial pneumonia. Could consider discontinuing cefepime. Complete the course of doxycycline for 5 days and then stop. Patient is breathing in mid to high teens. Not in any acute distress. It is okay if the patient saturation is 87-88%. Transition to BiPAP if need be if there is any respiratory distress. Case was discussed with Dr Martínez as well as LI French. Pulmonary will follow the patient peripherally. Call for any questions Please note the above document was generated using voice recognition software. It may contain grammatical, syntax or spelling errors.Any formal questions or concerns about the content, text or information contained within the body of thi s dictation should be directly addressed to the provider for clarification. Laterality: left Lung location: lower lobe of lung Pneumonia type: due to unspecified organism Qualified Code(s): J18.9 - Pneumonia, unspecified organism (2) COVID-19: (3) CKD (chronic kidney disease): Chronic kidney disease stage: unspecified stage Qualified Code(s): N18.9 - Chronic kidney disease, unspecified History of Present Illness Attending Physician: Filemon Martínez MD History of Present Illness 55-year-old with past medical history of CKD stage III, type 1 diabetes, dyslipidemia, depression was admitted to hospital because of shortness of breath and was found to have COVID-19 pneumonia Because of the underlying CKD patient was not a candidate for remdesivir. Patient has been getting dexamethasone since he has been in the hospital. ICU was called today as patient's oxygen requirement are gradually increasing. Patient was seen from the glass window. He was laying comfortably in bed. Had blanket over his head. He was on high flow 100% saturating 89% not in any acute distress. Afebrile since coming to the hospital. History obtained from previous chart and the nurse. Allergies Allergy/AdvReac Type Severity Reaction Status Date / Time No Known Drug Allergies Allergy Unknown NONE Verified 05/22/20 20:27 Home Medications Home Medications Medication Instructions Recorded Confirmed Type Lantus U-100 Insulin 8 unit SUBCUT HS 05/09/18 05/22/20 History aspirin [Aspir-81] 81 mg PO DAILY 05/09/18 05/22/20 History atorvastatin 80 mg PO HS 05/09/18 05/22/20 History B complex [id number] 1 tab PO DAILY 05/22/20 05/22/20 History [Dialyvite] alendronate [Fosamax] 70 mg PO TU 05/22/20 05/22/20 History fludrocortisone 0.3 mg PO DAILY 05/22/20 05/22/20 History fluoxetine [Prozac] 40 mg PO DAILY 05/22/20 05/22/20 History gabapentin 600 mg PO QID 05/22/20 05/22/20 History insulin glargine [Lantus U-100 15 unit SUBCUT QAM 05/22/20 05/22/20 History Insulin] insulin regular human [Novolin R 1 sliding scale dose SUBCUT 05/22/20 05/22/20 History Regular U-100 Insuln] USEASDIRECTD levalbuterol tartrate [Xopenex HFA] 2 inh INHALATION QID 05/22/20 05/22/20 History levothyroxine 137 mcg PO DAILY 05/22/20 05/22/20 History lisinopril 2.5 mg PO DAILY 05/22/20 05/22/20 History ondansetron 4 mg PO Q6H PRN 05/22/20 05/22/20 History vitamin E 1,000 unit PO DAILY 05/22/20 05/22/20 History Patient History Medical History Diabetes mellitus type 1 NSTEMI (non-ST elevated myocardial infarction) Family History Other No pertinent family history Social History Smoking Status: Never smoker Hx Alcohol Use: No Hx Substance Use: No Preferred Language: [place] Communication Ability: Effective Visual Impairment: No Limitations Beliefs That Will Affect Care: None Current Living Situation: Other Current Living Situation Comment: [facility]way Other Information That Helps Us Care for You: No Feels Safe at Home: Yes Safety Concerns: Feels Safe At This Time Assistive Devices: Oxygen - Continuous Review of Systems Review of Systems: Other Physical Exam Physical Exam: Patient not examined due to coronavirus restrictions and attempts to minimize exposure to staff and consider PPE. Please refer to the hospitalist exam for complete details. Results & Data Results & Data ([facility]) Vital Signs (Past 12 Hours) Vital Signs Temp Pulse Resp BP Pulse Ox 05/31/20 12:00 36.7 C 77 22 125/71 90 05/31/20 08:51 76 22 93 05/31/20 08:01 36.7 C 37 L 20 124/68 92 05/31/20 03:48 36.4 C L 75 20 123/67 91 05/31/20 03:00 05/31/20 03:00 PG Care Time/CCT Total # of Minutes Spent Total Time Spent with Patient: Total time spent is greater than 50% in coordination of care (as documented) at patient's floor/unit and/or counseling patient: Coding Level of Care Code 67168 Inpt Consult Level 3 Diagnoses Pneumonia J18.9 Laterality: left Lung location: lower lobe of lung Pneumonia type: due to unspecified organism COVID-19 U07.1 CKD (chronic kidney disease) N18.9 Chronic kidney disease stage: unspecified stage
[2020-05-31] MEDS ORDERED: metOLazone 5 MG TABLET PO ONE (13:15)
[2020-05-31] MEDS ORDERED: FUROSEMIDE 100 MG in SYRINGE 0 ML IV ONE (13:15)
[2020-05-31 13:39] LABS: D Dimer 1740 ug/L FEU (0-500)
[2020-05-31] MEDS ORDERED: INSULIN HUMAN REGULAR PER UNIT 5 UNITS in SYRINGE 4.95 ML IV ONE (18:15)
--- NOTE | 2020-05-31 18:25 | Progress Notes ---
DATE: 05/31/2020 NEPHROLOGY PROGRESS NOTE The patient's oxygen requirement has gone up and he is now on 91% oxygen saturation on high-flow nasal cannula. Detailed physical examination not done to conserve critically needed PPE. LABORATORY TESTS: Reviewed. Chest x-ray shows pleural effusion as well as worsening finding. Venous duplex was done and was negative for DVT. Blood work from this morning shows hemoglobin 8.4. Sodium 134, potassium 4.1, BUN 65, creatinine 3.42. CRP 8.42. This is significantly higher than before. VITAL SIGNS: Show blood pressure 110/72, pulse rate 79, temperature 36.8 degrees Celsius, oxygen saturation 91% on high-flow nasal cannula. ASSESSMENT AND PLAN: A 55-year-old male with multiple medical problems including longstanding diabetes as well as baseline chronic kidney disease with baseline creatinine in the low 2s, admitted with COVID-19 infection and now has acute renal failure secondary to acute tubular necrosis on background chronic kidney disease. Acute renal failure: Creatinine has remained fairly stable for the last 3 days, but however, it seems he is having increasing respiratory symptoms. Reviewed the pulmonary distributor sales consultant notes in detail as well as chest x-ray finding and I agree we need to do some aggressive diuresis. Given this, I do want to stop the IV fluid and give Lasix 80 mg IV twice daily. It is better to keep him on the dry side as long as his blood pressure allows.
[2020-05-31] MEDS: ATORVASTATIN 40 MG TAB PO SCH (21:28)
[2020-05-31] MEDS: HEPARIN SOD 5,000 UNIT/0.5 ML VIAL SQ SCH (21:53)
[2020-05-31] MEDS: FUROSEMIDE 80 MG in SYRINGE 0 ML IV SCH (22:35)
[2020-06-01] MEDS: INSULIN ASPART 100 UNITS/ML 3 ML PEN SC SCH ×4 (00:56→12:35)
[2020-06-01] MEDS: ONDANSETRON INJ 2 MG/ML 2 ML VIAL IV PRN ×2 (05:21→08:25)
[2020-06-01] MEDS: LEVOTHYROXINE SODIUM 137 MCG TABLET PO SCH (06:03)
[2020-06-01] MEDS: HEPARIN SOD 5,000 UNIT/0.5 ML VIAL SQ SCH ×3 (06:03→21:56)
[2020-06-01 06:13] LABS: Hematocrit (blood only) 24.7 % (42-52); Hemoglobin 8.4 g/dL (14.0-18.0); Mean Corpuscular Hemoglobin 27.9 pg (25-34); Mean Corpuscular Volume 82.1 fL (80-100); Mean Platelet Volume 9.6 fL (7.4-10.4); Platelet Count 434 K/uL (130-400); RDW Coefficient of Variation 16.7 % (11.5-14.5); RDW Standard Deviation 50.4 fL (36.4-46.3); Red Blood Count 3.01 M/uL (4.7-6.1); White Blood Count 13.14 K/uL (4.8-10.8)
[2020-06-01 06:56] LABS: Calcium 7.8 mg/dl (8.5-10.1); Creatinine Clr Calc Pharmacy 20.7 ml/min; Est GFR (African American) 16.3; Potassium 3.4 mmol/L (3.5-5.1)
[2020-06-01] MEDS: CEFEPIME 2,000 MG in SYRINGE 0 ML IV SCH (08:00)
[2020-06-01] MEDS: FUROSEMIDE 80 MG in SYRINGE 0 ML IV SCH ×2 (08:01→17:16)
--- NOTE | 2020-06-01 08:01 | Hospitalist Progress Note ---
Date of Service June 01, 2020 Assessment & Plan (1) Pneumonia: +COVID CXR reports small left pleural effusion and left lung base consolidation Continued ceftriaxone and doxycycline while inpt, repeat CXR shows progression of lung opacity, switched ceft to cefepime and added flagyl, pt now on 11L of O2 Continue dexamethasone 6mg po Patient not a candidate for remdesivir due to renal function Continue to manage blood glucose Obtained consent for convalescent plasma (05/27/20), and provided pt with FDA EUA fact sheet for convalescent plasma Now s/p transfusion of 1 unit (05/28 night), received 40 IV lasix prior to transfusion Currently oxygen requirement much increased 13-15L via oxymask, now transferred to high flow nasal cannula Wean oxygen as tolerated Will need ambulatory pulse ox on discharge DD dimer was elevated at 1490. Negative dopplers Can't get CT PE d/t poor renal function VQ scan ordered - notified that the study can not be obtained on COVID pts Repeat LE Dopplers - negative Pt has been on heparin sq q8h for DVT ppx Switched to IV heparin given increased oxygen requirement, this was discussed including the risk of bleeding, with the pt who is in agreement -Discussed further with pulmonary medicine, seems that increased oxygen requirement is due to fluid overload, okay to stop IV heparin. Patient also had some increased bleeding from IV site. We will switch back to subcu DVT Heparin prophylaxis. -Gave 60 IV Lasix with 2.5 metolazone in the morning, then 5 mg metolazone with 100 mg of IV Lasix (05/31/20). Per nephrology, 80 mg IV Lasix twice daily ordered ICU notified in case pt's status deteriorates 05/01 This morning patient desaturated into the 70s, has been having nausea and vomiting. Code purple was called. Patient currently on high flow nasal cannula, sitting up in bed, alert and oriented and answering questions appropriately. Does not actually seem to be in acute distress at the moment. ICU at the bedside, plan for central line placement and proning, also explained possible intubation, pt understood and in agreement. Patient has had increased oxygen requirements yesterday, was believed due to fluid overload, will slightly diuresed with IV Lasix, metolazone. IV heparin was stopped yesterday. Continued dexamethasone and continued antibiotics. Patient not on remdesivir due to XOCHITL on CKD. 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 need for dialysis, no need for extra IV fluids Replete hypokalemia -Patient appears fluid overloaded, and now has increased oxygen requirement, diuresis increased. (3) Diabetes mellitus type I: Continue insulin and lantus A1c is 8.3 Has had hypoglycemic episodes likely due to poor po intake Has been hyperglycemic likely with steroid therapy Continue to optimize glycemic control pharmacist on board (4) Hypothyroidism: Continue levothyroxine (5) Hypertension: now controlled Lisinopril on hold for now due to XOCHITL Continue amlodipine Admission and Anticipated Discharge Date Admission Date: May 22, 2020 Subjective This morning patient desaturated into the 70s, has been having nausea and vomiting. Code purple was called. Patient currently on high flow nasal cannula, sitting up in bed, alert and oriented and answering questions appropriately. Does not actually seem to be in acute distress at the moment. ICU at the bedside, plan for central line placement and proning, also explained possible intubation, pt understood and in agreement. Patient has had increased oxygen requirements yesterday, was believed due to fluid overload, will slightly diuresed with IV Lasix, metolazone. IV heparin was stopped yesterday. Continued dexamethasone and continued antibiotics. Patient not on remdesivir due to XOCHITL on CKD. Review of Systems Review of Systems: All systems reviewed & are unremarkable except as noted in HPI & below Constitutional: no fever and no chills Respiratory: + cough and + dyspnea Cardiovascular: no chest pain and no palpitations Gastrointestinal: + nausea and + vomiting Physical Exam Physical Exam: Constitutional: + well hydrated; no acute distress on HF NC Eyes: PERRL, EOMI, conjunctivae normal, anicteric sclerae ENMT: external ear and nose normal, oropharynx normal Respiratory: normal respiratory effort; no respiratory distress Auscultation: + bibasilar crackles b/l Cardiovascular: RRR, no murmur, no edema Gastrointestinal (Abdomen): normal bowel sounds, soft, nontender Musculoskeletal: moves extremities Neurologic: PERRL, EOMI, no face palsy, no dysarthria Genitourinary: no CVA tenderness Skin: warm, dry, Psoriatic lesions Results & Data Results & Data ([facility]) Vital Signs (Past 12 Hours) Vital Signs Temp Pulse Pulse Resp BP BP Pulse Ox 06/01/20 07:52 37.0 C 98 H 22 141/73 H 88 L 06/01/20 04:52 37.2 C 91 H 20 150/71 H 95 06/01/20 03:56 68 20 91 05/31/20 23:59 36.9 C 76 85 20 128/66 83 L 05/31/20 22:51 80 20 92 05/31/20 20:05 83 20 93 Laboratory Results 06/01/20 06/01/20 06/01/20 Range/Units 07:38 06:01 06:01 WBC 13.14 H (4.8-10.8) K/uL RBC 3.01 L (4.7-6.1) M/uL Hgb 8.4 L (14.0-18.0) g/dL Hct 24.7 L (42-52) % MCV 82.1 (80-100) fL MCH 27.9 (25-34) pg MCHC 34.0 (32-36) g/dL RDW Std Deviation 50.4 H (36.4-46.3) fL RDW Coeff of Minnie 16.7 H (11.5-14.5) % Plt Count 434 H (130-400) K/uL MPV 9.6 (7.4-10.4) fL APTT (21.0-31.0) Seconds PTT Ratio D-Dimer (0-500) ug/L FEU Sodium 139 (136-145) mmol/L Potassium 3.4 L D (3.5-5.1) mmol/L Chloride 106 (98-107) mmol/L Carbon Dioxide 24 (21-32) mmol/L Anion Gap 9.0 (3-11) BUN 83 H (7-18) mg/dl Creatinine 4.38 H D (0.6-1.4) mg/dl Est Cr Clr Drug Dosing 20.7 ml/min Est GFR ( Amer) 16.3 Est GFR (Non-Af Amer) 14.0 BUN/Creatinine Ratio 19.0 (10-20) Glucose 142 H (70-99) mg/dl POC Glucose 102 H (70-99) mg/dl Calcium 7.8 L (8.5-10.1) mg/dl Ferritin (8-388) ng/ml C-Reactive Protein (0-0.29) mg/dl 06/01/20 06/01/20 06/01/20 Range/Units 05:00 04:50 00:48 WBC (4.8-10.8) K/uL RBC (4.7-6.1) M/uL Hgb (14.0-18.0) g/dL Hct (42-52) % MCV (80-100) fL MCH (25-34) pg MCHC (32-36) g/dL RDW Std Deviation (36.4-46.3) fL RDW Coeff of Minnie (11.5-14.5) % Plt Count (130-400) K/uL MPV (7.4-10.4) fL APTT (21.0-31.0) Seconds PTT Ratio D-Dimer (0-500) ug/L FEU Sodium (136-145) mmol/L Potassium (3.5-5.1) mmol/L Chloride (98-107) mmol/L Carbon Dioxide (21-32) mmol/L Anion Gap (3-11) BUN (7-18) mg/dl Creatinine (0.6-1.4) mg/dl Est Cr Clr Drug Dosing ml/min Est GFR ( Amer) Est GFR (Non-Af Amer) BUN/Creatinine Ratio (10-20) Glucose (70-99) mg/dl POC Glucose 175 H 182 H 237 H (70-99) mg/dl Calcium (8.5-10.1) mg/dl Ferritin (8-388) ng/ml C-Reactive Protein (0-0.29) mg/dl 05/31/20 05/31/20 05/31/20 Range/Units 21:26 17:25 11:23 WBC (4.8-10.8) K/uL RBC (4.7-6.1) M/uL Hgb (14.0-18.0) g/dL Hct (42-52) % MCV (80-100) fL MCH (25-34) pg MCHC (32-36) g/dL RDW Std Deviation (36.4-46.3) fL RDW Coeff of Minnie (11.5-14.5) % Plt Count (130-400) K/uL MPV (7.4-10.4) fL APTT (21.0-31.0) Seconds PTT Ratio D-Dimer (0-500) ug/L FEU Sodium (136-145) mmol/L Potassium (3.5-5.1) mmol/L Chloride (98-107) mmol/L Carbon Dioxide (21-32) mmol/L Anion Gap (3-11) BUN (7-18) mg/dl Creatinine (0.6-1.4) mg/dl Est Cr Clr Drug Dosing ml/min Est GFR ( Amer) Est GFR (Non-Af Amer) BUN/Creatinine Ratio (10-20) Glucose (70-99) mg/dl POC Glucose 256 H 353 H* 382 H* (70-99) mg/dl Calcium (8.5-10.1) mg/dl Ferritin (8-388) ng/ml C-Reactive Protein (0-0.29) mg/dl 05/31/20 05/31/20 05/31/20 Range/Units 09:49 09:49 07:00 WBC (4.8-10.8) K/uL RBC (4.7-6.1) M/uL Hgb (14.0-18.0) g/dL Hct (42-52) % MCV (80-100) fL MCH (25-34) pg MCHC (32-36) g/dL RDW Std Deviation (36.4-46.3) fL RDW Coeff of Minnie (11.5-14.5) % Plt Count (130-400) K/uL MPV (7.4-10.4) fL APTT 45.7 H* > 139.0 H* (21.0-31.0) Seconds PTT Ratio 1.6 > 5.0 D-Dimer 1740 H* (0-500) ug/L FEU Sodium (136-145) mmol/L Potassium (3.5-5.1) mmol/L Chloride (98-107) mmol/L Carbon Dioxide (21-32) mmol/L Anion Gap (3-11) BUN (7-18) mg/dl Creatinine (0.6-1.4) mg/dl Est Cr Clr Drug Dosing ml/min Est GFR ( Amer) Est GFR (Non-Af Amer) BUN/Creatinine Ratio (-20) Glucose (70-99) mg/dl POC Glucose (70-99) mg/dl Calcium (8.5-10.1) mg/dl Ferritin (8-388) ng/ml C-Reactive Protein (0-0.29) mg/dl 05/31/20 Range/Units 03:00 WBC (4.8-10.8) K/uL RBC (4.7-6.1) M/uL Hgb (14.0-18.0) g/dL Hct (42-52) % MCV (80-100) fL MCH (25-34) pg MCHC (32-36) g/dL RDW Std Deviation (36.4-46.3) fL RDW Coeff of Minnie (11.5-14.5) % Plt Count (130-400) K/uL MPV (7.4-10.4) fL APTT (21.0-31.0) Seconds PTT Ratio D-Dimer (0-500) ug/L FEU Sodium (136-145) mmol/L Potassium (3.5-5.1) mmol/L Chloride (98-107) mmol/L Carbon Dioxide (21-32) mmol/L Anion Gap (3-11) BUN (7-18) mg/dl Creatinine (0.6-1.4) mg/dl Est Cr Clr Drug Dosing ml/min Est GFR ( Amer) Est GFR (Non-Af Amer) BUN/Creatinine Ratio (-20) Glucose (70-99) mg/dl POC Glucose (70-99) mg/dl Calcium (8.5-10.1) mg/dl Ferritin 206.7 (8-388) ng/ml C-Reactive Protein 8.42 H (0-0.29) mg/dl Medications Administered Current Inpatient Medications Acetaminophen (Acetaminophen 325 Mg Tab) 650 mg PO Q4H PRN PRN Reason: Pain or Fever Stop: 06/22/20 00:45 Last Admin: 05/30/20 10:24 Dose: 650 mg Documented by: Albuterol (Albuterol Hfa 8 Gm Inhaler) 2 puffs INH Q4R PRN PRN Reason: shortness of breath Stop: 06/28/20 16:37 Albuterol (Albuterol Hfa 8 Gm Inhaler) 2 puffs INH Q6R MARY Stop: 06/29/20 22:59 Last Admin: 05/31/20 11:38 Dose: Not Given Documented by: Amlodipine Besylate (Amlodipine Besylate 5 Mg Tab) 10 mg PO QAM MARY Stop: 06/24/20 08:59 Last Admin: 05/31/20 08:25 Dose: 10 mg Documented by: Aspirin (Aspirin 81 Mg Ectab) 81 mg PO DAILY [facility] Stop: 06/22/20 08:59 Last Admin: 05/31/20 08:27 Dose: 81 mg Documented by: Atorvastatin Calcium (Atorvastatin 40 Mg Tab) 80 mg PO HS [facility] Stop: 06/22/20 20:59 Last Admin: 05/31/20 21:28 Dose: 80 mg Documented by: Dextrose (Dextrose 50% 50 Ml Syringe) 25 - 50 ml IV UD PRN; Protocol PRN Reason: Hypoglycemia Protocol Stop: 06/22/20 01:29 Last Admin: 05/29/20 21:38 Dose: 50 ml Documented by: Fluoxetine HCl (Fluoxetine Hcl 20 Mg Cap) 40 mg PO DAILY MARY Stop: 06/22/20 08:59 Last Admin: 05/31/20 08:24 Dose: 40 mg Documented by: Gabapentin (Gabapentin 600 Mg Tab) 600 mg PO QID MARY Stop: 06/22/20 08:59 Last Admin: 05/31/20 21:27 Dose: 600 mg Documented by: Glucagon (Glucagon For Inj 1 Mg Vial) 1 mg SQ UD PRN; Protocol PRN Reason: Hypoglycemia Protocol Stop: 06/22/20 01:29 Glucose (Glucose 40% Gel 15 Gm Tube) 15 - 30 gm PO UD PRN; Protocol PRN Reason: Hypoglycemia Protocol Stop: 06/22/20 01:29 Glucose (Glucose 10 Tabs/Tube) 4 - 8 tabs PO UD PRN; Protocol PRN Reason: Hypoglycemia Protocol Stop: 06/22/20 01:29 Last Admin: 05/29/20 21:15 Dose: 4 tabs Documented by: Heparin Sodium (Porcine) (Heparin Sod 5,000 Unit/0.5 Ml Vial) 5,000 units SQ Q8 MARY Stop: 06/30/20 21:59 Last Admin: 06/01/20 06:03 Dose: Not Given Documented by: Hydralazine HCl (Hydralazine Hcl 25 Mg Tab) 25 mg PO TID [facility] Stop: 06/24/20 13:59 Last Admin: 05/31/20 21:28 Dose: 25 mg Documented by: Cefepime HCl 2,000 mg/ Syringe 20 mls @ 5 mls/min IV Q24H MARY; Protocol Stop: 06/05/20 07:59 Last Admin: 05/31/20 08:20 Dose: 5 mls/min Documented by: Dextrose (D5w) 1,000 mls @ 50 mls/hr IV .Q20H MARY Stop: 06/28/20 21:59 Last Infusion: 05/31/20 08:08 Dose: 0 mls/hr Documented by: Doxycycline Hyclate 100 mg/ (Dextrose) 110 mls @ 50 mls/hr IV Q12H MARY Stop: 06/06/20 09:59 Last Infusion: 06/01/20 00:50 Dose: Infused Documented by: Dexamethasone Sodium Phosphate (6 mg/ Syringe) 1.5 mls @ 1 mls/min IV DAILY MARY Stop: 06/30/20 08:59 Last Admin: 05/31/20 08:19 Dose: 1 mls/min Documented by: Furosemide 80 mg/ Syringe 8 mls @ 4 mls/min IV [id number] MARY Stop: 06/30/20 20:59 Last Admin: 05/31/20 22:35 Dose: 4 mls/min Documented by: Insulin Aspart (Insulin Aspart 100 Units/Ml 3 Ml Pen) 0 units SC ACHS [facility] Stop: 06/22/20 07:29 Last Admin: 05/31/20 21:53 Dose: 6 units Documented by: Insulin Glargine (Insulin Glargine Solostar 100 Units/Ml 3 Ml Pen) 22 units SQ DAILY MARY; Protocol Stop: 07/01/20 08:59 Insulin Human NPH (Novolin-N (Nph) Per Unit Charge) 20 units SQ DAILY MARY; Protocol Stop: 06/30/20 08:59 Last Admin: 05/31/20 08:50 Dose: 20 units Documented by: Levothyroxine Sodium (Levothyroxine Sodium 137 Mcg Tablet) 137 mcg PO DAILYBB [facility] Stop: 06/22/20 06:29 Last Admin: 06/01/20 06:03 Dose: Not Given Documented by: Metronidazole (Metronidazole 500 Mg Tab) 500 mg PO TID [facility] Stop: 06/05/20 08:59 Last Admin: 05/31/20 21:28 Dose: 500 mg Documented by: Miscellaneous (Carbohydrates For Hypoglycemia ) 15 - 30 gm PO UD PRN PRN Reason: Hypoglycemia Treatment Stop: 06/22/20 01:29 Last Admin: 05/29/20 17:10 Dose: 15 gm Documented by: Miscellaneous Information (Pharmacy Glycemic Mgmt Consult) 1 ea N/A UD PRN PRN Reason: Consult Stop: 06/23/20 15:06 Miscellaneous Information (Cefepime Consult Active) 1 ea N/A UD PRN PRN Reason: Consult Stop: 06/28/20 07:21 Multi-Ingredient Cream (Eucerin Cr 120 Gm Jar) 1 appln EXT BID PRN PRN Reason: Rash Stop: 06/28/20 11:00 Nitroglycerin (Nitroglycerin Sl 0.4 Mg/Tab Tab) 0.4 mg SL UD PRN PRN Reason: Chest Pain Stop: 06/22/20 00:45 Ondansetron HCl (Ondansetron Inj 2 Mg/Ml 2 Ml Vial) 4 mg IV Q6H PRN PRN Reason: Nausea Stop: 06/22/20 00:45 Last Admin: 06/01/20 05:21 Dose: 4 mg Documented by: Pantoprazole Sodium (Pantoprazole 40 Mg Tab) 40 mg PO QAM [facility] Stop: 06/26/20 18:29 Last Admin: 05/31/20 08:24 Dose: 40 mg Documented by: Potassium Chloride (Potassium Chloride 20 Meq Tabcr) 20 meq PO QAM [facility] Stop: 07/01/20 08:59 Thiamine HCl (Thiamine Hcl 100 Mg Tab) 100 mg PO BID [facility] Stop: 06/28/20 08:59 Last Admin: 05/31/20 21:28 Dose: 100 mg Documented by: Vitamin B Complex/Folic Acid (Nephrocaps) 1 cap PO DAILY [facility] Stop: 06/22/20 08:59 Last Admin: 05/31/20 08:24 Dose: 1 cap Documented by: (1) Hypertension Hypertension type: essential hypertension Qualified Code(s): I10 - Essential (primary) hypertension
[2020-06-01] MEDS ORDERED: RAPID SEQUENCE INDUCTION BAG ONE (08:09)
[2020-06-01] MEDS: dexAMETHasone 6 MG in SYRINGE 0 ML IV SCH (08:10)
[2020-06-01] MEDS ORDERED: MIDAZOLAM BOLUS FROM BAG IV PRN (08:23)
[2020-06-01] MEDS ORDERED: STAT IV Infusion **Titration per Protocol STA (08:23)
[2020-06-01] MEDS ORDERED: fentaNYL DRIP 1,250 MCG/250 ML BAG IV SCH (08:30)
[2020-06-01] MEDS ORDERED: MIDAZOLAM HCL 125 MG/250 ML BAG IV SCH (08:30)
[2020-06-01] MEDS ORDERED: SODIUM CHLORIDE 0.9% 250 ML IV PRN ×2 (08:30→08:34)
[2020-06-01] MEDS: ALBUTEROL HFA 8 GM INHALER INH SCH ×4 (08:40→20:20)
[2020-06-01] MEDS ORDERED: LIDOCAINE 1% LOCAL 20 ML VIAL ONE (08:44)
[2020-06-01] MEDS ORDERED: POTASSIUM CHLORIDE CRTAB 20 MEQ TABCR PO SCH (09:00)
[2020-06-01] MEDS ORDERED: INSULIN GLARGINE SOLOSTAR 100 UNITS/ML 3 ML PEN SQ SCH ×2 (09:00)
[2020-06-01 09:20] LABS: Fibrinogen 638 mg/dl (184-400); INR 1.1 (0.9-1.1); Partial Thromboplastin Time 27.9 Seconds (21.0-31.0); Prothrombin Time 11.5 Seconds (9.0-12.0)
[2020-06-01] MEDS: HEPARIN SODIUM/DEXTROSE 25,000 UNITS/500 ML BAG IV SCH (09:41)
[2020-06-01] MEDS: Heparin IV Adult Wt-Based Standard *NO* Bolus Protocol IV SCH (09:42)
--- NOTE | 2020-06-01 10:04 | XRay Report ---
XR chest 1V portable CLINICAL HISTORY: s/p central line placement COMPARISON STUDY: Chest radiograph May 31, 2020. FINDINGS: Tip of the right internal jugular central line projects over the proximal SVC. There is no pneumothorax. Cardiomediastinal silhouette is stable. No pleural effusion is identified. Interstitial thickening and bilateral airspace opacities are similar to prior exam. IMPRESSION: 1. No pneumothorax following placement of a right internal jugular central line. Tip projects over th e proximal SVC. 2. No change in bilateral airspace opacities and interstitial thickening which favor an infectious pr ocess although pulmonary edema could appear similar. ACT 112: Negative or not required by law. Electronically signed by: Wong Lazaro M.D. 06/01/2020 10:03 AM
[2020-06-01] MEDS: DOXYCYCLINE HYCLATE 100 MG in DEXTROSE 5% 100 ML IV SCH ×2 (10:45→21:58)
[2020-06-01] MEDS: hydrALAZINE HCL 25 MG TAB PO SCH ×2 (12:33→17:52)
[2020-06-01] MEDS: ASPIRIN 81 MG ECTAB PO SCH (12:33)
[2020-06-01] MEDS: metroNIDAZOLE 500 MG TAB PO SCH ×3 (12:34→21:57)
[2020-06-01] MEDS: GABAPENTIN 600 MG TAB PO SCH ×3 (12:34→18:19)
[2020-06-01] MEDS: amLODIPine BESYLATE 5 MG TAB PO SCH (12:34)
[2020-06-01] MEDS: PANTOprazole 40 MG TAB PO SCH (12:34)
[2020-06-01] MEDS: NEPHROCAPS PO SCH (12:34)
[2020-06-01] MEDS: THIAMINE HCL 100 MG TAB PO SCH ×2 (12:35→21:58)
[2020-06-01] MEDS: FLUoxetine HCL 20 MG CAP PO SCH (12:35)
[2020-06-01 13:57] LABS: iSTAT Allen Test Pass; iSTAT Art Bld Gas pCO2 Correct 22 mmHg (35-46); iSTAT Art Bld Gas pH Corrected 7.477 (7.35-7.45); iSTAT Arterial Blood Gas HCO3 16 meg/L (19-24); iSTAT Arterial Blood Gas pCO2 22 mmHg (35-46); iSTAT Arterial Blood Gas pH 7.48 (7.35-7.45); iSTAT Arterial Blood Gas pO2 34 mmHg (80-95); iSTAT Arterial Blood Gas pO2 C 34; iSTAT Carbon Dioxide 17 mmol/L (24-31); iSTAT FiO2 100 %; iSTAT Hematocrit 25 % (42-52); iSTAT Hemoglobin 8.5 g/dl (14.0-18.0); iSTAT Potassium 3.5 mmol/L (3.3-5.0); iSTAT Site L Radial; iSTAT Sodium 138 mmol/L (135-144)
--- NOTE | 2020-06-01 14:24 | Pharmacy Report ---
Glycemic Control Progress Note - Date of Service June 01, 2020 - Scope Glycemic Pharmacist consulted for glycemic control to write orders per [facility] inpatient glycemic control protocol. - Objective Accuchecks BSG(last 24 hours):: 05/31/20 05/31/20 06/01/20 17:25 21:26 00:48 Glucose POC Glucose 353 H* 256 H 237 H 06/01/20 06/01/20 06/01/20 04:50 05:00 06:01 Glucose 142 H POC Glucose 182 H 175 H 06/01/20 06/01/20 07:38 12:16 Glucose POC Glucose 102 H 111 H HbA1c:: Hemoglobin A1c 8.3 % (4.5-5.6) H 05/23/20 05:24 - Recent Pertinent Medications The patient is currently receiving: * Basal insulin: Lantus 20 units every 24 hours plus NPH 20 units daily * Correctional Insulin: Novolog Correction per scale ACHS Goal Range: Low 120 mg/dL - High 150 mg/dL Correction Factor: 25 mg/dL/unit * Prandial insulin: Per carb ratio of 1 unit per 6 grams CHO consumed - Outpatient Anti-Diabetic Meds Lantus 15 units in the morning and 8 units in the PM - Assessment & Plan ASSESSMENT: * See progress note from 05/25/2020 for more background info, in short: * Pt receiving SQ basal bolus insulin regimen for hyperglycemia secondary to baseline DM (outpatient regimen on hold). Patient is COVID-19 positive and desaturated today. He is currently on high-flow oxygen and is being transferred to the ICU. He is on dexamethasone 6 mg IV daily. * Patient is currently receiving an average of 87 units of insulin per day * 40 units of basal insulin * 47 units of prandial/correctional insulin * BSGs ranging 237 - 417 mg/dl over the past 24hrs * Changes needed to insulin regimen: * AM Fasting BSG = 102 mg/dl. This is slightly below goal range for patient based on inpatient targets and co-morbidities. The patient received an extra 7 units of basal insulin overnight. Patient desaturated this morning and is now on high-flow oxygen. PO intake has been poor for several days (at least since 05/30/2020). He is volume overloaded and kidney function has worsened today. Due to uncertainty with patient's respiratory status plus steroid use, will switch to SQ regular insulin scheduled q6 hours. This will allow for quicker changes in insulin dosing. * Post-prandial BSGs were elevated yesterday. Will use looser CF at this point due to NPO status. * Total daily dose = ? units. Currently changing with PO intake. PLAN FOR INPATIENT GLYCEMIC CONTROL: * Changing to regular insulin scheduled q6 hours --> 1 unit if BSG less than 100 mg/dL; 2 units if BSG 100-180 mg/dL; 3 units if BSG greater than 180 mg/dL * Continuing correction factor of 30 mg/dl/unit * Continuing carb ratio of 1 unit per 7 grams CHO consumed * Continuing goal range of Low 120 mg/dL - High 150 mg/dL * Please note that the plan above was derived based on current level of insulin resistance and hospital stress. These recommendations are appropriate for inpatient admission only. Plan of care upon discharge will need to be reassessed to avoid potential outpatient hypo/hyperglycemia. Thank you.
--- NOTE | 2020-06-01 16:08 | Critical Care Consultation ---
Date of Consultation June 01, 2020 Assessment & Plan (1) Pneumonia: Reason Critically Ill: COVID-19 acute respiratory distress syndrome with severe hypoxic respiratory failure. PLAN: Neuro: If patient requires intubation mechanical ventilation I would proceed with neuromuscular blockade consisting of cis atracurium and sedatives of Versed and fentanyl infusions Continue fluoxetine 40 mg p.o. daily Continue gabapentin 600 mg p.o. by mouth 4 times daily Resp: Acute respiratory distress syndrome secondary to COVID-19 Acute hypoxic respiratory failure -Already receiving steroids for severe ARDS PF ratio: 34 on last ABG however that is significantly improved given oxygen saturation low 90s -s/p convalescent plasma 1 unit (05/28 night) -Not candidate for remdesivir -Dexamethasone 6 mg IV daily: Shortened to 10-day duration Patient had recurrent hypoxemic episode however he self proned and rapidly recovered in 3 to 5 minutes into the 90s. -Highly advise self proning if able morbidity and mortality significantly increases with intubation and mechanical ventilation. CV: Hypertension -Continue amlodipine -Lasix 80 mg IV twice daily -Holding hydralazine by mouth 25 mg p.o. 3 times daily 81 mg aspirin to continue daily Fluids/Renal: Chronic kidney disease -1 Nephrocap daily ID: Current anti-infectives: Flagyl 500 3 times daily day 4 of 7 -Doxycycline 100 mg 3 times daily day 3 of 7 -Cefepime 2 g every 24 hours day 4 of 7 GI/Nutrition: Thiamine supplementation -100 twice daily Protonix 40 mg daily ordered by hospitalist service Zofran as needed nausea Continue atorvastatin 80 mg daily Heme: Elevated D-dimer of unclear significance Elevated fibrinogen of unclear significance -DVT prophylaxis: Heparin 5000 3 times daily Endocrine: ICU hyperglycemia protocol Hypothyroidism -Continue levothyroxine 137 mg by mouth Vascular access: Right internal jugular triple-lumen placed 06/01 -Left radial arterial line placed 06/01 Code Status: Full code Disposition: ICU (2) COVID-19: (3) CKD (chronic kidney disease): History of Present Illness Reason for Consultation: Acute hypoxemic respiratory failure Requesting Physician: Filemon Martínez MD Attending Physician: Filemon Martínez MD History of Present Illness Patient is a 55-year-old male who was admitted to the hospital for hypoxemia secondary to COVID-19 pneumonia/acute respiratory distress syndrome. This morning the patient was having difficulty tolerating his Vapotherm and had been satting in the high 70s and low 80s was feeling rather dyspneic and was not recovering with any do speed. Providers at the bedside provided history that he had previously been on full dose heparin but this was discontinued when he was developing worsening anemia and some bleeding at puncture sites and transitioned to DVT prophylaxis doses. The heparin was started for an elevated D-dimer in the setting of severe hypoxemia. He has known chronic kidney disease which has mildly worsened, his potassium was within normal limits. When I saw the patient he was feeling very dyspneic he was not able to speak in full sentences. I discussed the risks and benefits of blood transfusion which he consented to, bronchoscopy which he verbally consented to, arterial line placement which she verbally consented to as well as advanced vascular access which he verbally consented to. We discussed the risks and benefits of endotracheal intubation as well as the need for sedation and probable pronation. Allergies Allergy/AdvReac Type Severity Reaction Status Date / Time No Known Drug Allergies Allergy Unknown NONE Verified 05/22/20 20:27 Home Medications Home Medications Medication Instructions Recorded Confirmed Type Lantus U-100 Insulin 8 unit SUBCUT HS 05/09/18 05/22/20 History aspirin [Aspir-81] 81 mg PO DAILY 05/09/18 05/22/20 History atorvastatin 80 mg PO HS 05/09/18 05/22/20 History B complex 56-edvih-L-biot-zinc 1 tab PO DAILY 05/22/20 05/22/20 History [Dialyvite] alendronate [Fosamax] 70 mg PO TU 05/22/20 05/22/20 History fludrocortisone 0.3 mg PO DAILY 05/22/20 05/22/20 History fluoxetine [Prozac] 40 mg PO DAILY 05/22/20 05/22/20 History gabapentin 600 mg PO QID 05/22/20 05/22/20 History insulin glargine [Lantus U-100 15 unit SUBCUT QAM 05/22/20 05/22/20 History Insulin] insulin regular human [Novolin R 1 sliding scale dose SUBCUT 05/22/20 05/22/20 History Regular U-100 Insuln] USEASDIRECTD levalbuterol tartrate [Xopenex HFA] 2 inh INHALATION QID 05/22/20 05/22/20 History levothyroxine 137 mcg PO DAILY 05/22/20 05/22/20 History lisinopril 2.5 mg PO DAILY 05/22/20 05/22/20 History ondansetron 4 mg PO Q6H PRN 05/22/20 05/22/20 History vitamin E 1,000 unit PO DAILY 05/22/20 05/22/20 History Patient History Medical History Diabetes mellitus type 1 NSTEMI (non-ST elevated myocardial infarction) Family History Other No pertinent family history Social History Smoking Status: Never smoker Hx Alcohol Use: No Hx Substance Use: No Preferred Language: [place] Communication Ability: Effective Visual Impairment: No Limitations Beliefs That Will Affect Care: None Current Living Situation: Other Current Living Situation Comment: Group Home Feels Safe at Home: Yes Assistive Devices: Oxygen - Continuous Review of Systems Review of Systems: Unable to obtain secondary to patient condition with extreme dyspnea Physical Exam Physical Exam: General: Alert. nontoxic. Single Shackle present on the patient's wrist to the bed Skin: Warm, dry, Head: Atraumatic Ears, nose, mouth and throat: airway patent Cardiovascular: Normal peripheral perfusion Respiratory: Tachypnea, accessory muscle use, no belly breathing, no pursed lip breathing Gastrointestinal: Non distended Musculoskeletal: No deformity Results & Data Results & Data ([facility]) Vital Signs (Past 12 Hours) Vital Signs Temp Pulse Resp BP BP Pulse Ox 06/01/20 15:56 86 26 H 94 06/01/20 15:00 82 18 102/59 L 76 L 06/01/20 14:00 37.1 C 81 18 108/68 94 06/01/20 12:00 37 C 80 26 H 102/67 94 06/01/20 11:00 81 28 H 102/72 96 06/01/20 08:30 104 H 40 H 92 06/01/20 07:52 37.0 C 98 H 22 141/73 H 88 L 06/01/20 04:52 37.2 C 91 H 20 150/71 H 95 Coding Level of Care Code Critical Care 1st 30-74 mins Diagnoses Pneumonia J18.9 Laterality: left Lung location: lower lobe of lung Pneumonia type: due to unspecified organism COVID-19 U07.1 CKD (chronic kidney disease) N18.9 Chronic kidney disease stage: unspecified stage Time Spent (min) 85 Comment I have personally spent 85 minutes of critical care time in the direct management of this (1) CKD (chronic kidney disease) Chronic kidney disease stage: unspecified stage Qualified Code(s): N18.9 - Chronic kidney disease, unspecified (2) Pneumonia Laterality: left Lung location: lower lobe of lung Pneumonia type: due to unspecified organism Qualified Code(s): J18.9 - Pneumonia, unspecified organism
--- NOTE | 2020-06-01 16:13 | Procedure Note ---
Procedure Note Date of Service Procedure #1 of 2 June 01, 2020 Procedure date: Noted above Procedure: Central venous access Pre-procedure indication: Severe ARDS, Post-procedure Diagnosis: same as above Prior to Procedure: Informed Consent: The risks, benefits, indications, potential complications, and alternatives were explained to the patient and informed consent obtained verbally, unable to sign due to acuity of condition and COVID-19 pandemic. Attending Staff: Tenzin Bartlett DO Resident/APC: Not applicable Skin Prep: Chlorhexidine Anesthesia: 4 mL 1% lidocaine without epinephrine The identity of the patient was confirmed and a bedside time out was performed. Description of Procedure: Given the high probability the patient was going to need pronation in event of refractory hypoxemic respiratory failure a right subclavian approach was undertaken. There were technical problems in getting the ultrasound equipment to work appropriately so a anatomic landmark approach was undertaken After sterile prep and sterile drape utilizing standard sterile technique the superficial skin of the right subclavian area was anesthetized. 3 attempts were undertaken to enter the subclavian vessel, this was not able to be located even with extreme Trendelenburg and further attempts were discontinued and the procedure into the right subclavian was aborted. Complications: None Estimated blood loss: Minimal Patient tolerated the procedure well. After successful placement of a subsequent triple-lumen catheter a additional ultrasound was located and I was able to confirm that there was lung sliding on the side of the attempt, later a chest x-ray was obtained to confirm location and there was no evidence of pneumothorax. Procedure #2 of 2 Procedure date: Noted above Procedure: Central venous access Pre-procedure indication: Severe ARDS, Post-procedure Diagnosis: same as above Prior to Procedure: Informed Consent: The risks, benefits, indications, potential complications, and alternatives were explained to the patient and informed consent obtained verbally, unable to sign due to acuity of condition and COVID-19 pandemic. Attending Staff: Tenzin Bartlett DO Resident/APC: Not applicable Skin Prep: Chlorhexidine Anesthesia: 4 mL 1% lidocaine without epinephrine The identity of the patient was confirmed and a bedside time out was performed. Description of Procedure: After sterile prep and sterile drape utilizing standard sterile technique the superficial skin of the right internal jugular area was anesthetized. Utilizing a micropuncture technique the target vessel was identified with a 27-gauge needle, maintaining same direction the target vessel was entered with an 18-gauge needle. Dark venous blood return was noted. A guidewire was inserted through the needle and into the vessel. The needle was withdrawn and a skin luis m was made. A tissue dilator was advanced via Seldinger technique and removed. A triple lumen catheter was inserted via Seldinger technique and the guidewire removed. A transducing needle was inserted into one of the ports and dark venous blood was noted, nonpulsatile, likely low central venous pressure. All ports phoebe and flushed easily. A Biopatch was placed, and the catheter was secured via silk suture at 15 cm as well as a commercial securement device. A sterile dressing was then applied. Complications: None Estimated blood loss: Trace Patient tolerated the procedure well. Coding CPT Codes Tubes, Drains, and Vasc Access - Tubes, Drains, and Vasc Access: [id number] Insertion Of Non-tunneled Catheter Age 4 Yrs> ([id number]) Tubes, Drains, and Vasc Access - Tubes, Drains, and Vasc Access: [id number] Insertion Of Non-tunneled Catheter Age 4 Yrs> ([id number]) [facility] [place] Procedure Codes (Charges) Tubes, Drains, and Vasc Access Procedure 1: Tubes, Drains, and Vasc Access: [id number] Insertion Of Non-tunneled Catheter Age 4 Yrs> (Procedure aborted modifier) Procedure 2: Tubes, Drains, and Vasc Access: [id number] Insertion Of Non-tunneled Catheter Age 4 Yrs> (Second procedure same side different site)
--- NOTE | 2020-06-01 16:46 | Nephrology Progress Note ---
Date of Service June 01, 2020 Assessment & Plan (1) XOCHITL (acute kidney injury): No recent baseline creatinine > last one prior to admission is 2 years old: 1.1-1.3 at that time. No OP/prior to admission creatinine documented. Pt presented with creatinine 2.5 on 05/22; then since 05/27 in mid to low 3s. bumped to 4.4 AM 06/01. Yesterday lasix dosing was intensified (first had lasix 40 mg 05/27, then 60 mg 05/30; then two 80 mg doses and 100 mg 05/31). some low K this am>> pt had 20 mEq po x 1. other chemistries ok; relative hypotension through the day today. did d/w pt he may well need dialysis; we reviewed what dialysis is and how fluid overload or build up of poisons might make him need it > he is open to dialysis if need arises -repeat bmp ordered for this evening; repeat UACM as well d/t worsened renal function; known proteinuria before admission and with 2-3+ dipstick proteinuria consistently at admission 2019 and 2017. -lowered hydralazine to bid 25 mg w/ prn dose -lowered amlodipine to 5 mg in am -order in to get last OP labs from longterm -lasix stopped after dose this evening >> lungs are clear, no edema on exam, markedly worsening renal function > use lasix PRN -continue FR 1.5L >>>lowered gabapentin dose d/t worsening XOCHITL >> from 600 mg qid to 300 mg bid to start and discuss w/ pharmacy on AM rounds/based on AM labs; some potential for decreased mental status if dose not adjusted -recommend renal u/s if clinically stable (none this admission) Present on Admission?: Yes (2) COVID-19: on high flow 02 w/ near intubation / code purple for hypoxia 06/01 AM; ICU status now; recurrent hypoxemic episodes corrected with self-proning -also on one week course of flagyl, doxy, cefepime (about midway through course) Present on Admission?: Yes (3) Orthostatic hypotension: on standing /long-term fludrocortisone prior to admission; now held while on dexamethasone >> would need to be mindful of hypothalamic/pituitary axis suppression once dexamethasone complete potentially Present on Admission?: Yes Admission and Anticipated Discharge Date Admission Date: May 22, 2020 Subjective seen on rounds today at approx 1330. pt awaiting transfer to ICU d/t deteriorating respiratory status--code purple this am . sats ok on 40L hi flow 02 but desats to 70s w/ exam maneuvers; pulm strongly recommending self proning. denies musculoskeletal or abd or chest pain, denies edema, denies diarrhea, denies N, no rash Review of Systems Review of Systems: All systems reviewed & are unremarkable except as noted in HPI & below Physical Exam Constitutional: well developed, well nourished, + thin and comfortable; no acute distress Eyes: EOM intact bilaterally ENMT: Ears: no external ear abnormality Nose: no external nose abnormality Mouth: + dry oral mucous membranes Neck: no nuchal rigidity Respiratory: normal respiratory effort Auscultation: lungs clear to auscultation bilaterally and + diminished lung sounds Cardiovascular: RRR, no murmur, no edema Gastrointestinal (Abdomen): Inspection/Auscultation: abdomen normal to inspection and normal bowel sounds Percussion/Palpation: abdomen soft; abdomen nontender Musculoskeletal: Extremities: strength 5/5 throughout Skin: no rashes, warm and dry Neurologic: gutierrez, fluent speech, no tremor Psychiatric: A+Ox3, euthymic affect Genitourinary: mukherjee present, ample light yellow clear urine Results & Data ([facility]) Vital Signs (Past 12 Hours) Vital Signs Temp Pulse Resp BP BP Pulse Ox 06/01/20 15:56 86 26 H 94 06/01/20 15:00 82 18 102/59 L 76 L 06/01/20 14:00 37.1 C 81 18 108/68 94 06/01/20 12:00 37 C 80 26 H 102/67 94 06/01/20 11:00 81 28 H 102/72 96 06/01/20 08:30 104 H 40 H 92 06/01/20 07:52 37.0 C 98 H 22 141/73 H 88 L 06/01/20 04:52 37.2 C 91 H 20 150/71 H 95 Laboratory Results 06/01/20 06:01 06/01/20 06:01 Diagnostic Findings cxr 1. No pneumothorax following placement of a right internal jugular central line. Tip projects over the proximal SVC. 2. No change in bilateral airspace opacities and interstitial thickening which favor an infectious process although pulmonary edema could appear similar.
--- NOTE | 2020-06-01 17:13 | Procedure Note ---
Procedure Note Date of Service June 01, 2020 Procedure date: Noted above Procedure: Left radial artery cannulation Pre-procedure Diagnosis: Need for invasive monitoring frequent blood draws in the setting of COVID-19 acute respiratory distress syndrome Post-procedure Diagnosis: same as above Prior to Procedure: Informed Consent: The risks, benefits, indications, potential complications, and alternatives were explained to the patient and informed consent obtained verbally due to COVID-19 limitations during pandemic and acuity of situation. Attending Staff: Tenzin Bartlett DO Skin Prep: Chlorhexidine Anesthesia: 3 mL 1% lidocaine without epinephrine The identity of the patient was confirmed and a bedside time out was performed. Description of Procedure: After sterile prep and sterile drape utilizing standard sterile technique the superficial skin of the left radial artery was anesthetized. The target artery was identified via dynamic ultrasound guidance and entered with a 20-gauge arrow Angiocath. Pulsatile bright red blood return was noted. Via modified Seldinger technique the self-contained guidewire was advanced and the Angiocath advanced over the guidewire. The guidewire was removed and brisk arterial blood return was noted. The pressure monitor was connected, and the arterial line was secured via silk suture as well as a commercial securement device. A sterile dressing was then applied. Complications: None Estimated blood loss: Trace Patient tolerated the procedure well. Coding CPT Codes Tubes, Drains, and Vasc Access - Tubes, Drains, and Vasc Access: [id number] Place Catheter In Artery ([id number]) [facility] [place] Procedure Codes (Charges) Tubes, Drains, and Vasc Access Procedure 1: Tubes, Drains, and Vasc Access: [id number] Place Catheter In Artery
[2020-06-01] MEDS: INSULIN HUMAN REGULAR SC SCH ×4 (17:14→22:13)
[2020-06-01] MEDS ORDERED: hydrALAZINE 10 MG TAB PO PRN (18:42)
[2020-06-01] MEDS ORDERED: hydrALAZINE HCL 25 MG TAB PO SCH (21:00)
[2020-06-01] MEDS ORDERED: OXYMETAZOLINE 0.05% 30 ML BTL ONE (21:44)
[2020-06-01] MEDS: GABAPENTIN 300 MG CAP PO SCH (21:56)
[2020-06-01] MEDS: ATORVASTATIN 40 MG TAB PO SCH (21:58)
[2020-06-02 01:18] LABS: Calcium 7.6 mg/dl (8.5-10.1); Creatinine Clr Calc Pharmacy 20.2 ml/min; Est GFR (African American) 15.8; Est GFR (Non-African American) 13.7; Potassium 3.7 mmol/L (3.5-5.1)
[2020-06-02] MEDS: ALBUTEROL HFA 8 GM INHALER INH SCH ×4 (02:00→19:37)
[2020-06-02] MEDS: INSULIN HUMAN REGULAR SC SCH ×4 (04:46→12:37)
[2020-06-02 05:09] LABS: iSTAT Art Bld Gas pCO2 Correct 32 mmHg (35-46); iSTAT Art Bld Gas pH Corrected 7.427 (7.35-7.45); iSTAT Arterial Blood Gas HCO3 21 meg/L (19-24); iSTAT Arterial Blood Gas pCO2 32 mmHg (35-46); iSTAT Arterial Blood Gas pH 7.42 (7.35-7.45); iSTAT Arterial Blood Gas pO2 60 mmHg (80-95); iSTAT Arterial Blood Gas pO2 C 59; iSTAT Carbon Dioxide 22 mmol/L (24-31); iSTAT FiO2 90 %; iSTAT Hematocrit 24 % (42-52); iSTAT Hemoglobin 8.2 g/dl (14.0-18.0); iSTAT Potassium 3.7 mmol/L (3.3-5.0); iSTAT Site L Radial; iSTAT Sodium 137 mmol/L (135-144)
[2020-06-02 05:09] LABS: Hematocrit (blood only) 23.7 % (42-52); Hemoglobin 7.8 g/dL (14.0-18.0); Mean Corpuscular Hemoglobin 27.4 pg (25-34); Mean Corpuscular Hgb Conc 32.9 g/dL (32-36); Mean Corpuscular Volume 83.2 fL (80-100); Platelet Count 412 K/uL (130-400); RDW Coefficient of Variation 16.5 % (11.5-14.5); RDW Standard Deviation 50.3 fL (36.4-46.3); Red Blood Count 2.85 M/uL (4.7-6.1); White Blood Count 11.82 K/uL (4.8-10.8)
[2020-06-02 05:58] LABS: BUN Creatinine Ratio 21.2 (10-20); Calcium 7.7 mg/dl (8.5-10.1); Creatinine Clr Calc Pharmacy 19.9 ml/min; Est GFR (African American) 15.6; Est GFR (Non-African American) 13.4; Magnesium 2.1 mg/dl (1.8-2.4); Potassium 3.7 mmol/L (3.5-5.1)
[2020-06-02] MEDS: LEVOTHYROXINE SODIUM 137 MCG TABLET PO SCH (06:16)
[2020-06-02] MEDS: HEPARIN SOD 5,000 UNIT/0.5 ML VIAL SQ SCH ×3 (06:16→21:35)
[2020-06-02] MEDS ORDERED: amLODIPine BESYLATE 5 MG TAB PO SCH (09:00)
--- NOTE | 2020-06-02 10:09 | Critical Care Progress Note ---
Date of Service June 02, 2020 Assessment & Plan (1) Pneumonia: Reason Critically Ill: COVID-19 acute respiratory distress syndrome with severe hypoxic respiratory failure. PLAN: Neuro: If patient requires intubation mechanical ventilation I would proceed with neuromuscular blockade consisting of cis atracurium and sedatives of Versed and fentanyl infusions Continue fluoxetine 40 mg p.o. daily Continue gabapentin 600 mg p.o. by mouth 4 times daily Resp: Acute respiratory distress syndrome secondary to COVID-19 Acute hypoxic respiratory failure -Already receiving steroids for severe ARDS PF ratio: 34 on last ABG however that is significantly improved given oxygen saturation low 90s -s/p convalescent plasma 1 unit (05/28 night) -Not candidate for remdesivir -Dexamethasone 6 mg IV daily: Shortened to 10-day duration Patient had recurrent hypoxemic episode however he self proned and rapidly recovered in 3 to 5 minutes into the 90s. -Highly advise self proning if able morbidity and mortality significantly increases with intubation and mechanical ventilation. -Trying to remove aggressive supplemental oxygen, will attempt nasal cannula and have patient auto prone if he drops below 88%. -If it takes the patient greater than 10 minutes to recover from hypoxia we will reinstitute high flow nasal cannula -His oxygen saturations have been in the high 90s with the Vapotherm high flow therapy CV: Hypertension -Amlodipine 5 mg daily -Holding Lasix per nephrology -Holding hydralazine by mouth 25 mg p.o. 2 times daily -10 mg hydralazine p.o. as needed for systolic 160 or greater 81 mg aspirin to continue daily -We will defer antihypertensives to nephrology team Fluids/Renal: Chronic kidney disease -1 Nephrocap daily -Hopefully have reached a ashwin in worsening acute on chronic kidney disease ID: Current anti-infectives: Flagyl 500 3 times daily day 5 of 7 by mouth -Doxycycline 100 mg 2 times daily day 4 of 7 by mouth -Cefepime 2 g every 24 hours day 5 of 7 GI/Nutrition: ADA diet regular as the patient has been recovering from his hypoxic episodes rather quickly Thiamine supplementation -100 twice daily -Additional multivitamin Protonix 40 mg daily ordered by hospitalist service Zofran as needed nausea Continue atorvastatin 80 mg daily Heme: Elevated D-dimer of unclear significance Elevated fibrinogen of unclear significance -DVT prophylaxis: Heparin 5000 2 times daily Epistaxis -Treated with Afrin last night and that resolved the nosebleed -We will use low-dose DVT prophylaxis of 5000 twice daily as the patient is also uremic and that should hopefully minimize minor and major bleeding complications Endocrine: ICU hyperglycemia protocol -Type 1 diabetes -Significant variability as we have held foods and had different stress levels with steroids. Hypothyroidism -Continue levothyroxine 137 mg by mouth Mineralocorticoid replacement -0.3 mg p.o. daily of fludrocortisone on home med record -Currently receiving 6 mg dexamethasone which provides similar mineralocorticoid activity -Placed fludrocortisone order back onto chart on hold. -Indication from senior care medication reconciliation listed orthostatic hypotension Vascular access: Right internal jugular triple-lumen placed 06/01 -Left radial arterial line placed 06/01 Code Status: Full code Disposition: ICU (2) COVID-19: (3) CKD (chronic kidney disease): Admission and Anticipated Discharge Date Admission Date: May 22, 2020 Subjective Patient is recovering quicker from dyspneic episodes Review of Systems Review of Systems: Other Physical Exam Physical Exam: General: Alert. nontoxic. Skin: Warm, dry, Head: Atraumatic Ears, nose, mouth and throat: airway patent Cardiovascular: Normal peripheral perfusion Respiratory: Tachypnea, accessory muscle use, no belly breathing, no pursed lip breathing Gastrointestinal: Non distended Musculoskeletal: No deformity Results & Data Results & Data ([facility]) Vital Signs (Past 12 Hours) Vital Signs Temp Pulse Pulse Resp BP Pulse Ox 06/02/20 08:00 79 21 98 06/02/20 07:51 76 20 96 06/02/20 07:00 80 24 96 06/02/20 06:30 78 24 87 L 06/02/20 06:00 75 21 98 06/02/20 05:30 36.7 C 75 20 97 06/02/20 05:00 75 22 93 06/02/20 04:30 75 21 93 06/02/20 04:00 73 19 97 06/02/20 03:48 77 20 97 06/02/20 03:30 72 21 98 06/02/20 03:16 70 19 103/54 L 100 06/02/20 03:00 71 23 96 06/02/20 02:30 71 20 99 06/02/20 02:00 70 80 9 L 94 06/02/20 01:30 71 16 94 06/02/20 01:00 73 19 93 06/02/20 00:30 36.6 C 71 20 99 06/02/20 00:00 72 19 96 06/01/20 23:30 73 10 L 100 06/01/20 23:00 73 18 100 06/01/20 22:30 80 20 90 06/01/20 22:24 77 20 89 L 06/01/20 22:00 77 19 92 Coding Level of Care Code Critical Care 1st 30-74 mins Diagnoses Pneumonia J18.9 Laterality: left Lung location: lower lobe of lung Pneumonia type: due to unspecified organism COVID-19 U07.1 CKD (chronic kidney disease) N18.9 Chronic kidney disease stage: unspecified stage Time Spent (min) 45 (1) CKD (chronic kidney disease) Chronic kidney disease stage: unspecified stage Qualified Code(s): N18.9 - Chronic kidney disease, unspecified (2) Pneumonia Laterality: left Lung location: lower lobe of lung Pneumonia type: due to unspecified organism Qualified Code(s): J18.9 - Pneumonia, unspecified organism
[2020-06-02] MEDS: dexAMETHasone 6 MG in SYRINGE 0 ML IV SCH (11:31)
[2020-06-02] MEDS: THIAMINE HCL 100 MG TAB PO SCH ×2 (11:32→21:37)
[2020-06-02] MEDS: CEFEPIME 2,000 MG in SYRINGE 0 ML IV SCH (11:32)
[2020-06-02] MEDS: FLUoxetine HCL 20 MG CAP PO SCH (11:33)
[2020-06-02] MEDS: NEPHROCAPS PO SCH (11:33)
[2020-06-02] MEDS: ASPIRIN 81 MG ECTAB PO SCH (11:33)
[2020-06-02] MEDS: PANTOprazole 40 MG TAB PO SCH (11:33)
[2020-06-02] MEDS: metroNIDAZOLE 500 MG TAB PO SCH ×3 (11:33→21:33)
[2020-06-02] MEDS: GABAPENTIN 300 MG CAP PO SCH ×2 (11:34→21:36)
[2020-06-02] MEDS: DOXYCYCLINE HYCLATE 100 MG in DEXTROSE 5% 100 ML IV SCH (11:41)
[2020-06-02] MEDS: INSULIN DETEMIR FLEXPEN/FLEX TOUCH 100 UNITS/ML 3ML SC SCH ×2 (11:57→21:38)
[2020-06-02] MEDS: Heparin IV Adult Wt-Based Standard *NO* Bolus Protocol IV SCH (12:40)
[2020-06-02] MEDS: INSULIN ASPART 100 UNITS/ML 3 ML PEN SC SCH ×3 (13:42→22:06)
--- NOTE | 2020-06-02 15:25 | Pharmacy Report ---
Pharmacy Glycemic Short Note 2 - Date of Service June 02, 2020 - Glycemic Short BSG Results (Last 24 hours): 06/01/20 06/01/20 06/02/20 17:09 22:09 00:42 Glucose 230 H POC Glucose 226 H 225 H 06/02/20 06/02/20 06/02/20 04:44 04:46 11:48 Glucose 226 H POC Glucose 245 H 229 H Outpatient Anti-diabetic Regimen: * Lantus 15 units SC qAM, 8 units SC qPM * A1c = 8.3 % on 05/23/20 Risk Factors for Insulin Resistance: * Steroids: dexamethasone 6 mg po daily, day 7 of anticipated 10 day course (for COVID-19) * Infection: COVID-19, possible superimposed PNA * Diet: T1DM ASSESSMENT: 06/02/20 * Patient received only 6 units of insulin yesterday given decompensation. Long acting insulin was d/c'd and SQ scheduled regular insulin was trialed. BSGs remained elevated, however it appears correctional insulin was held overnight. * As patient clinically improved today and was ordered a diet, will resume long acting insulin but will trial Levemir for more favorable twice daily dosing PK effects in T1 diabetes. Will change back to novolog but tighten scale conservatively. Patient remains on dexamethasone 05/30/20: * Pt has received 58 units of insulin over the past 24hrs * 44 units of basal insulin with Lantus * 14 units of bolus insulin with NovoLog * BSGs ranging 38-221 mg/dl * Hypoglycemic multiple times last night, held Lantus this morning until blood sugars soto to 221mg/dl at lunch, resume Lantus at 50% reduction * Continue CF/CR at this time, loosened yesterday, may need to tighten tomorrow for better steroid coverage since basal is being reduced significantly * Patient remains on PO Dexamethasone 05/29/20: * Pt has received 81 units of insulin over the past 24hrs * 44 units of basal insulin with Lantus * 37 units of bolus insulin with NovoLog * BSGs ranging 82-232 mg/dl * Hyperglycemia secondary to steroids. Pt is requiring abou 2x outpatient dosing of insulin for steroid induced hyperglycemia (dexamethasone for COVID+) Insulin regimen will need significantly tapered once dxm dc. * BSGs trending downwards throughout the day - will loosen CF/CR * AM fasting BSG is in goal range at 142 mg/dl. No changes needed to basal insulin 05/28/20: * Pt has received 65 units of insulin over the past 24 hrs * 32 units of basal insulin with Lantus * 33 units of bolus insulin with NovoLog * BSGs ranging 98-314 mg/dl * Hyperglycemia continues secondary to daily dexamethasone * Patient received additional 9 units of correctional insulin overnight and correctional insulin prior to meals yesterday. Will add this to basal insulin dosing and increase Lantus to 44 units SQ daily. * Will tighten CR since steroids have their most profound effect on post- prandial hyperglycemia. Will loosen CF since CR tightening AND basal insulin significantly increased. 05/27/20 * Stressors stable (see above), except possible XOCHITL noted today * AM fasting BSG significantly elevated - will increase Lantus and add two overnight checks tonight * Post-prandial BSG's >180 mg/dL x2 yesterday - will tighten Novolog CHO ratio 05/26/20 * Stressors stable (see above) * BSG's gradually but steadily trended down yesterday after increase in Lantus in AM and tightening of Novolog parameters in PM. * Now with BSG of 191 mg/dL this AM * Will cautiously increase Lantus due to AM hyperglycemia and also 9 units of correctional insulin needed overnight. This dose may precipitate hypoglycemia in the AM were it not for the dexamethasone ordered, therefore ordered to be given simultaneously * Will continue with the current Novolog parameters as they were already tightened last evening * Plan for IV bolus for any BSG > 300 mg/dL - would like to continue to avoid standard-protocol insulin drip unless necessary due to need for hourly encounters/adjustments in COVID positive patient. BSG trend is reasonable at this time therefore OK for now. 05/25/20 * 55 yo M with T1DM admitted with COVID-19 and possible superimposed PNA * BSG's initially adequately controlled on 05/23, except AM hypoglycemia. * Severe AM hypoglycemia noted 05/24 AM prompted significant reduction in Lantus (from total of 23 to 15 units/24 hours yesterday). This reduction caused hyperglycemia this AM - will increase Lantus * Dexamethasone initiated 05/24 which caused hyperglycemia in the evening which prompted significant tightening of Novolog parameters. This tightening caused mild hypoglycemia last evening - Novolog parameters were loosened at that time. No further changes for now. May need to be tightened slightly later * IV insulin indicated due to better control BSG's but will give as one-time boluses given COVID positivity PLAN FOR INPATIENT GLYCEMIC CONTROL: * Basal insulin * Levemir 15 units SQ BID (first dose was at lunchtime) * Bolus insulin: * NovoLog per scale ACHS or Q6hrs while NPO * Goal Range: Low 120 mg/dL - High 150 mg/dL * Correction Factor: 20 mg/dL/unit * Nutritional / Prandial insulin per carb ratio of 1 unit per 7 grams CHO consumed Plan for discharge: Dependent on whether patient will be discharged on steroids
--- NOTE | 2020-06-02 17:18 | Nephrology Progress Note ---
Date of Service June 02, 2020 Assessment & Plan (1) XOCHITL (acute kidney injury): No recent baseline creatinine > last one prior to admission is 2 years old: 1.1-1.3 at that time. No OP/prior to admission creatinine documented. Pt presented with creatinine 2.5 on 05/22; then since 05/27 in mid to low 3s. bumped to 4.4 AM 06/01. Yesterday lasix dosing was intensified (first had lasix 40 mg 05/27, then 60 mg 05/30; then two 80 mg doses and 100 mg 05/31). some low K this am>> pt had 20 mEq po x 1. other chemistries ok; relative hypotension through the day today. did d/w pt he may well need dialysis; we reviewed what dialysis is and how fluid overload or build up of poisons might make him need it > he is open to dialysis if need arises -await repeat UACM d/t worsened renal function -cont prn hydralazine; standing dose on hold as is standing amlodipine -await 06/02 requested last OP labs from [facility] -lasix stopped after pm dose 06/01 >> lungs are clear, no edema on exam, markedly worsening renal function > use lasix PRN for now -FR liberalized to 2L which is reasonable >>>lowered gabapentin dose d/t worsening XOCHITL >> from 600 mg qid to 300 mg bid as of 06/01 PM ; some potential for decreased mental status if dose not adjusted adn pt is so far tolerating -recommend renal u/s if clinically stable /feasible (none this admission) (2) COVID-19: on high flow 02 w/ near intubation / code purple for hypoxia 06/01 AM; ICU status now; recurrent hypoxemic episodes corrected with self-proning -also on one week course of flagyl, doxy, cefepime (now more than midway through course) ->worry about uptrend in temp this afternoon (currently 38.0) (3) Orthostatic hypotension: 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 pt was able to get down to 6L 02 briefly but then desatted to 70s w/ sitting up to eat. can restore sats somewhat by self proning; pt w/ limited willingness to do this however. no concerns about diminished UOP even w/ no lasix since last evening. Review of Systems Review of Systems: Other (ROS not obtained d/t pt on high flow 02 in C19 precautions, w/ easy desats) Physical Exam Constitutional: well developed, well nourished, + thin and comfortable; no acute distress on high flow 02 at time of my eval; full in person physical exam deferred d/t interest of minimizing C19 exposure, preserving PPE Eyes: EOM intact bilaterally ENMT: Ears: no external ear abnormality Nose: no external nose abnormality Mouth: + dry oral mucous membranes Respiratory: normal respiratory effort Cardiovascular: Rate/Rhythm: regular rate (on monitor) and regular rhythm (on monitor) Musculoskeletal: Extremities: strength 5/5 throughout Psychiatric: Orientation: alert and cooperative Eye Contact: good eye co ntact Genitourinary: mukherjee just emptied; clear light yellow urine Results & Data ([facility]) Vital Signs (Past 12 Hours) Vital Signs Temp Pulse Pulse Resp BP Pulse Ox 06/02/20 15:54 82 06/02/20 14:14 82 23 127/68 95 06/02/20 14:00 85 22 93 06/02/20 13:44 85 93 06/02/20 13:14 82 25 H 117/63 91 06/02/20 12:17 38.0 C H 86 23 136/70 94 06/02/20 12:00 89 20 73 L 06/02/20 11:00 79 16 96 06/02/20 10:57 75 20 98 06/02/20 10:00 37.5 C 82 25 H 88 L 06/02/20 08:00 79 21 98 06/02/20 07:51 76 20 96 06/02/20 07:00 80 24 96 06/02/20 06:30 78 24 87 L 06/02/20 06:00 75 21 98 06/02/20 05:30 36.7 C 75 20 97 Laboratory Results 06/02/20 04:44 06/02/20 04:44 Diagnostic Findings none new
[2020-06-02 18:03] LABS: Appearance Urine Clear (Clear); Bacteria Urine Automated Negative (Negative); Bilirubin Urine Negative (Negative); Blood Urine 1+ (Negative); Color Urine Yellow; Glucose Urine UA Negative (Negative); Ketones Urine Negative (Negative); Leukocyte Esterase Urine Negative (Negative); Nitrite Urine Negative (Negative); Protein Urine 3+ (Negative); RBC Urine Automated 0-4 /hpf (0-4); Specific Gravity Urine 1.017 (1.000-1.030); Urobilinogen Urine Negative (Negative); pH Urine 5.5 (4.5-7.5)
--- NOTE | 2020-06-02 20:46 | Hospitalist Progress Note ---
Date of Service June 02, 2020 Assessment & Plan (1) Pneumonia: +COVID CXR reports small left pleural effusion and left lung base consolidation Continued ceftriaxone and doxycycline while inpt, repeat CXR shows progression of lung opacity, switched ceft to cefepime and added flagyl, pt on 11L of O2 Continue dexamethasone 6mg po - switched to IV Patient not a candidate for remdesivir due to renal function Continue to manage blood glucose Obtained consent for convalescent plasma (05/27/20), and provided pt with FDA EUA fact sheet for convalescent plasma Now s/p transfusion of 1 unit (05/28 night), received 40 IV lasix prior to transfusion Pt on broad spectrum Abx Oxygen requirement increased to 13-15L via oxymask, switched to high flow nasal cannula ICU/ pulmonary medicine consulted DD dimer was elevated at 1490. Negative dopplers Can't get CT PE d/t poor renal function VQ scan ordered - notified that the study can not be obtained on COVID pts Repeat LE Dopplers - negative Pt has been on heparin sq q8h for DVT ppx Switched to IV heparin given increased oxygen requirement, this was discussed including the risk of bleeding, with the pt who is in agreement -Discussed further with pulmonary medicine, seems that increased oxygen requirement is due to fluid overload, okay to stop IV heparin. Patient also had some increased bleeding from IV site. Switched back to subcu DVT Heparin pro phylaxis. -Gave 60 IV Lasix with 2.5 metolazone in the morning, then 5 mg metolazone with 100 mg of IV Lasix (05/31/20). Per nephrology, 80 mg IV Lasix twice daily ordered On 10/9 AM pt desaturated into the 70s, having nausea and vomiting. Code purple was called. Central line was placed and proning encouraged, also explained possible intubation, pt understood and in agreement. Currently pt is in ICU on HF NC. (2) XOCHITL (acute kidney injury): Cr is 2.44>>2.7>>2.82, however then up to 3.47 >3.2 >3.4, now 4.5 and BUN 94 (06/02) XOCHITL on CKD d/t ATN in the setting of COVID 19infection Per physician at longterm facility, patient has CKD and last lab work in 12/2019 showed Cr of 2.32 Monitor Cr and avoid nephrotoxins Transportation Job Titles evaluation appreciated - ATN, worsening Cr, concern for poss. need for dialysis, no need for extra IV fluids Replete hypokalemia Due to increased oxygen requirement recently, diuresis was increased, currently pt does not seem to be in fluid overload (3) Diabetes mellitus type I: Continue insulin and lantus A1c is 8.3 Has had hypoglycemic episodes likely due to poor po intake Has been hyperglycemic likely with steroid therapy Continue to optimize glycemic control pharmacist on board (4) Hypothyroidism: Continue levothyroxine (5) Hypertension: now controlled Lisinopril on hold for now due to XOCHITL Continue amlodipine, hydralazine prn Admission and Anticipated Discharge Date Admission Date: May 22, 2020 Subjective Currently patient is sitting up in bed, in no acute distress, on high flow nasal cannula. States that he is is actually feeling better than he has had in a long time. Patient is currently in ICU, yesterday he was desaturating to 70s, and code purple was called. Encouraged proning. Denies chest pain, abdominal pain, nausea or vomiting. He was just eating. Review of Systems Review of Systems: All systems reviewed & are unremarkable except as noted in HPI & below Constitutional: no fever and no chills Respiratory: + cough and + dyspnea Cardiovascular: no chest pain and no palpitations Gastrointestinal: no abdominal pain, no nausea and no vomiting Physical Exam Physical Exam: Constitutional: WD/WN, no acute distress on HF NC Eyes: PERRL, EOMI, conjunctivae normal, anicteric sclerae ENMT: external ear and nose normal, oropharynx normal Respiratory: normal respiratory effort; no respiratory distress Auscultation: CTAB Cardiovascular: RRR, no murmur, no edema Gastrointestinal (Abdomen): normal bowel sounds, soft, nontender Musculoskeletal: moves extremities Neurologic: PERRL, EOMI, no face palsy, no dysarthria, moves extremities Genitourinary: no CVA tenderness Skin: warm, dry, Psoriatic lesions Results & Data Results & Data ([facility]) Vital Signs (Past 12 Hours) Vital Signs Temp Pulse Pulse Resp BP Pulse Ox 06/02/20 19:37 84 22 90 06/02/20 18:00 79 21 94 06/02/20 16:26 79 20 108/58 L 95 06/02/20 16:00 36.9 C 82 26 H 93 06/02/20 15:54 82 06/02/20 14:15 82 18 97 06/02/20 14:14 82 23 127/68 95 06/02/20 14:00 85 22 93 06/02/20 13:44 85 93 06/02/20 13:14 82 25 H 117/63 91 06/02/20 12:17 38.0 C H 86 23 136/70 94 06/02/20 12:00 89 20 73 L 06/02/20 11:00 79 16 96 06/02/20 10:57 75 20 98 06/02/20 10:00 37.5 C 82 25 H 88 L Laboratory Results 06/02/20 06/02/20 06/02/20 Range/Units 17:35 16:41 11:48 WBC (4.8-10.8) K/uL RBC (4.7-6.1) M/uL Hgb (14.0-18.0) g/dL POC Hgb (14.0-18.0) g/dl Hct (42-52) % POC Hct (42-52) % MCV (80-100) fL MCH (25-34) pg MCHC (32-36) g/dL RDW Std Deviation (36.4-46.3) fL RDW Coeff of Minnie (11.5-14.5) % Plt Count (130-400) K/uL MPV (7.4-10.4) fL Specimen Type Sample Site Patient Temperature POC pH (7.35-7.45) POC pCO2 (35-46) mmHg POC pO2 (80-95) mmHg POC HCO3 (19-24) ana/L POC Total CO2 (24-31) mmol/L POC Base Excess (-9-1.8) ana/L O2 Sat Pulse Oximetry ABG pH (Temp Correct) (7.35-7.45) ABG pCO2 (Temp Corrct (35-46) mmHg POC ABG pO2 at Pt Temp POC ABG O2 Sat (90-95) % Serge Test Set Respiration Rate O2 Delivery Device POC O2 Rate Minute Ventilation Vent Mode Vent Setting Spontaneous Rate FiO2 (liters per min) POC FiO2 % Tidal Volume Spontaneous Tidal Vol End Tidal CO2 PEEP High PEEP Setting Low PEEP Setting Pressure Support POC Pressure Suppt Pressure Support Vent Pressure High Time High Time Low EPAP IPAP POC Blood Gas Comment POC Sodium (135-144) mmol/L Sodium (136-145) mmol/L POC Potassium (3.3-5.0) mmol/L Potassium (3.5-5.1) mmol/L Chloride (98-107) mmol/L Carbon Dioxide (21-32) mmol/L Anion Gap (3-11) BUN (7-18) mg/dl Creatinine (0.6-1.4) mg/dl Est Cr Clr Drug Dosing ml/min Est GFR ( Amer) Est GFR (Non-Af Amer) BUN/Creatinine Ratio (10-20) Glucose (70-99) mg/dl POC Glucose 237 H 229 H (70-99) mg/dl Calcium (8.5-10.1) mg/dl Phosphorus (2.5-4.9) mg/dl Magnesium (1.8-2.4) mg/dl Urine Color Yellow Urine Appearance Clear (Clear) Urine pH 5.5 (4.5-7.5) Ur Specific [place] 1.017 (1.000-1.030) Urine Protein 3+ H (Negative) Urine Glucose (UA) Negative (Negative) Urine Ketones Negative (Negative) Urine Blood 1+ H (Negative) Urine Nitrite Negative (Negative) Urine Bilirubin Negative (Negative) Urine Urobilinogen Negative (Negative) Ur Leukocyte Esterase Negative (Negative) Urine WBC (Auto) 1-5 (0-5) /hpf Urine RBC (Auto) 0-4 (0-4) /hpf U Hyaline Cast (Auto) 1-5 (0-5) /lpf U Epithel Cells (Auto) 5-10 H (0-5) /lpf Urine Bacteria (Auto) Negative (Negative) 06/02/20 06/02/20 06/02/20 Range/Units 05:28 04:53 04:46 WBC (4.8-10.8) K/uL RBC (4.7-6.1) M/uL Hgb (14.0-18.0) g/dL POC Hgb Cancelled 8.2 L (14.0-18.0) g/dl Hct (42-52) % POC Hct Cancelled 24 L (42-52) % MCV (80-100) fL MCH (25-34) pg MCHC (32-36) g/dL RDW Std Deviation (36.4-46.3) fL RDW Coeff of Minnie (11.5-14.5) % Plt Count (130-400) K/uL MPV (7.4-10.4) fL Specimen Type Cancelled Sample Site Cancelled L Radial Patient Temperature Cancelled POC pH Cancelled 7.42 (7.35-7.45) POC pCO2 Cancelled 32 L (35-46) mmHg POC pO2 Cancelled 60 L (80-95) mmHg POC HCO3 Cancelled 21 (19-24) ana/L POC Total CO2 Cancelled 22 L (24-31) mmol/L POC Base Excess Cancelled -4.0 (-9-1.8) ana/L O2 Sat Pulse Oximetry Cancelled ABG pH (Temp Correct) Cancelled 7.427 (7.35-7.45) ABG pCO2 (Temp Corrct Cancelled 32 L (35-46) mmHg POC ABG pO2 at Pt Temp Cancelled 59 POC ABG O2 Sat Cancelled 91.0 (90-95) % Serge Test Cancelled NA Set Respiration Rate Cancelled O2 Delivery Device Cancelled Hi Dash Can POC O2 Rate Cancelled Minute Ventilation Cancelled Vent Mode Cancelled Vent Setting Cancelled Spontaneous Rate Cancelled FiO2 (liters per min) Cancelled POC FiO2 Cancelled 90 % Tidal Volume Cancelled Spontaneous Tidal Vol Cancelled End Tidal CO2 Cancelled PEEP Cancelled High PEEP Setting Cancelled Low PEEP Setting Cancelled Pressure Support Cancelled POC Pressure Suppt Cancelled Pressure Support Vent Cancelled Pressure High Cancelled Time High Cancelled Time Low Cancelled EPAP Cancelled IPAP Cancelled POC Blood Gas Comment Cancelled POC Sodium Cancelled 137 (135-144) mmol/L Sodium (136-145) mmol/L POC Potassium Cancelled 3.7 (3.3-5.0) mmol/L Potassium (3.5-5.1) mmol/L Chloride (98-107) mmol/L Carbon Dioxide (21-32) mmol/L Anion Gap (3-11) BUN (7-18) mg/dl Creatinine (0.6-1.4) mg/dl Est Cr Clr Drug Dosing ml/min Est GFR ( Amer) Est GFR (Non-Af Amer) BUN/Creatinine Ratio (10-20) Glucose (70-99) mg/dl POC Glucose 245 H (70-99) mg/dl Calcium (8.5-10.1) mg/dl Phosphorus (2.5-4.9) mg/dl Magnesium (1.8-2.4) mg/dl Urine Color Urine Appearance (Clear) Urine pH (4.5-7.5) Ur Specific [place] (1.000-1.030) Urine Protein (Negative) Urine Glucose (UA) (Negative) Urine Ketones (Negative) Urine Blood (Negative) Urine Nitrite (Negative) Urine Bilirubin (Negative) Urine Urobilinogen (Negative) Ur Leukocyte Esterase (Negative) Urine WBC (Auto) (0-5) /hpf Urine RBC (Auto) (0-4) /hpf U Hyaline Cast (Auto) (0-5) /lpf U Epithel Cells (Auto) (0-5) /lpf Urine Bacteria (Auto) (Negative) 06/02/20 06/02/20 06/02/20 Range/Units 04:44 04:44 00:42 WBC 11.82 H (4.8-10.8) K/uL RBC 2.85 L (4.7-6.1) M/uL Hgb 7.8 L (14.0-18.0) g/dL POC Hgb (14.0-18.0) g/dl Hct 23.7 L (42-52) % POC Hct (42-52) % MCV 83.2 (80-100) fL MCH 27.4 (25-34) pg MCHC 32.9 (32-36) g/dL RDW Std Deviation 50.3 H (36.4-46.3) fL RDW Coeff of Minnie 16.5 H (11.5-14.5) % Plt Count 412 H (130-400) K/uL MPV 10.0 (7.4-10.4) fL Specimen Type Sample Site Patient Temperature POC pH (7.35-7.45) POC pCO2 (35-46) mmHg POC pO2 (80-95) mmHg POC HCO3 (19-24) ana/L POC Total CO2 (24-31) mmol/L POC Base Excess (-9-1.8) ana/L O2 Sat Pulse Oximetry ABG pH (Temp Correct) (7.35-7.45) ABG pCO2 (Temp Corrct (35-46) mmHg POC ABG pO2 at Pt Temp POC ABG O2 Sat (90-95) % Serge Test Set Respiration Rate O2 Delivery Device POC O2 Rate Minute Ventilation Vent Mode Vent Setting Spontaneous Rate FiO2 (liters per min) POC FiO2 % Tidal Volume Spontaneous Tidal Vol End Tidal CO2 PEEP High PEEP Setting Low PEEP Setting Pressure Support POC Pressure Suppt Pressure Support Vent Pressure High Time High Time Low EPAP IPAP POC Blood Gas Comment POC Sodium (135-144) mmol/L Sodium 139 138 (136-145) mmol/L POC Potassium (3.3-5.0) mmol/L Potassium 3.7 3.7 (3.5-5.1) mmol/L Chloride 104 104 (98-107) mmol/L Carbon Dioxide 24 23 (21-32) mmol/L Anion Gap 11.0 11.0 (3-11) BUN 94 H 94 H (7-18) mg/dl Creatinine 4.54 H* 4.48 H (0.6-1.4) mg/dl Est Cr Clr Drug Dosing 19.9 20.2 ml/min Est GFR ( Amer) 15.6 15.8 Est GFR (Non-Af Amer) 13.4 13.7 BUN/Creatinine Ratio 21.2 H 21.0 H (10-20) Glucose 226 H 230 H (70-99) mg/dl POC Glucose (70-99) mg/dl Calcium 7.7 L 7.6 L (8.5-10.1) mg/dl Phosphorus 5.0 H (2.5-4.9) mg/dl Magnesium 2.1 (1.8-2.4) mg/dl Urine Color Urine Appearance (Clear) Urine pH (4.5-7.5) Ur Specific [place] (1.000-1.030) Urine Protein (Negative) Urine Glucose (UA) (Negative) Urine Ketones (Negative) Urine Blood (Negative) Urine Nitrite (Negative) Urine Bilirubin (Negative) Urine Urobilinogen (Negative) Ur Leukocyte Esterase (Negative) Urine WBC (Auto) (0-5) /hpf Urine RBC (Auto) (0-4) /hpf U Hyaline Cast (Auto) (0-5) /lpf U Epithel Cells (Auto) (0-5) /lpf Urine Bacteria (Auto) (Negative) 06/01/20 Range/Units 22:09 WBC (4.8-10.8) K/uL RBC (4.7-6.1) M/uL Hgb (14.0-18.0) g/dL POC Hgb (14.0-18.0) g/dl Hct (42-52) % POC Hct (42-52) % MCV (80-100) fL MCH (25-34) pg MCHC (32-36) g/dL RDW Std Deviation (36.4-46.3) fL RDW Coeff of Minnie (11.5-14.5) % Plt Count (130-400) K/uL MPV (7.4-10.4) fL Specimen Type Sample Site Patient Temperature POC pH (7.35-7.45) POC pCO2 (35-46) mmHg POC pO2 (80-95) mmHg POC HCO3 (19-24) ana/L POC Total CO2 (24-31) mmol/L POC Base Excess (-9-1.8) ana/L O2 Sat Pulse Oximetry ABG pH (Temp Correct) (7.35-7.45) ABG pCO2 (Temp Corrct (35-46) mmHg POC ABG pO2 at Pt Temp POC ABG O2 Sat (90-95) % Serge Test Set Respiration Rate O2 Delivery Device POC O2 Rate Minute Ventilation Vent Mode Vent Setting Spontaneous Rate FiO2 (liters per min) POC FiO2 % Tidal Volume Spontaneous Tidal Vol End Tidal CO2 PEEP High PEEP Setting Low PEEP Setting Pressure Support POC Pressure Suppt Pressure Support Vent Pressure High Time High Time Low EPAP IPAP POC Blood Gas Comment POC Sodium (135-144) mmol/L Sodium (136-145) mmol/L POC Potassium (3.3-5.0) mmol/L Potassium (3.5-5.1) mmol/L Chloride (98-107) mmol/L Carbon Dioxide (21-32) mmol/L Anion Gap (3-11) BUN (7-18) mg/dl Creatinine (0.6-1.4) mg/dl Est Cr Clr Drug Dosing ml/min Est GFR ( Amer) Est GFR (Non-Af Amer) BUN/Creatinine Ratio (10-20) Glucose (70-99) mg/dl POC Glucose 225 H (70-99) mg/dl Calcium (8.5-10.1) mg/dl Phosphorus (2.5-4.9) mg/dl Magnesium (1.8-2.4) mg/dl Urine Color Urine Appearance (Clear) Urine pH (4.5-7.5) Ur Specific [place] (1.000-1.030) Urine Protein (Negative) Urine Glucose (UA) (Negative) Urine Ketones (Negative) Urine Blood (Negative) Urine Nitrite (Negative) Urine Bilirubin (Negative) Urine Urobilinogen (Negative) Ur Leukocyte Esterase (Negative) Urine WBC (Auto) (0-5) /hpf Urine RBC (Auto) (0-4) /hpf U Hyaline Cast (Auto) (0-5) /lpf U Epithel Cells (Auto) (0-5) /lpf Urine Bacteria (Auto) (Negative) Medications Administered Current Inpatient Medications Acetaminophen (Acetaminophen 325 Mg Tab) 650 mg PO Q4H PRN PRN Reason: Pain or Fever Stop: 06/22/20 00:45 Last Admin: 05/30/20 10:24 Dose: 650 mg Documented by: Albuterol (Albuterol Hfa 8 Gm Inhaler) 2 puffs INH Q4R PRN PRN Reason: shortness of breath Stop: 06/28/20 16:37 Albuterol (Albuterol Hfa 8 Gm Inhaler) 2 puffs INH Q6R MARY Stop: 06/29/20 22:59 Last Admin: 06/02/20 19:37 Dose: 2 puffs Documented by: Aspirin (Aspirin 81 Mg Ectab) 81 mg PO DAILY MARY Stop: 06/22/20 08:59 Last Admin: 06/02/20 11:33 Dose: 81 mg Documented by: Atorvastatin Calcium (Atorvastatin 40 Mg Tab) 80 mg PO HS MARY Stop: 06/22/20 20:59 Last Admin: 06/01/20 21:58 Dose: 80 mg Documented by: Dextrose (Dextrose 50% 50 Ml Syringe) 25 - 50 ml IV UD PRN; Protocol PRN Reason: Hypoglycemia Protocol Stop: 06/22/20 01:29 Last Admin: 05/29/20 21:38 Dose: 50 ml Documented by: Doxycycline Hyclate (Doxycycline Hyclate 100 Mg Cap) 100 mg PO BID MARY Stop: 06/05/20 23:59 Fludrocortisone Acetate (Fludrocortisone Acetate 0.1 Mg Tab) 0.3 mg PO QAM MARY Stop: 07/03/20 08:59 Fluoxetine HCl (Fluoxetine Hcl 20 Mg Cap) 40 mg PO DAILY MARY Stop: 06/22/20 08:59 Last Admin: 06/02/20 11:33 Dose: 40 mg Documented by: Gabapentin (Gabapentin 300 Mg Cap) 300 mg PO BID MARY Stop: 07/01/20 20:59 Last Admin: 06/02/20 11:34 Dose: 300 mg Documented by: Glucagon (Glucagon For Inj 1 Mg Vial) 1 mg SQ UD PRN; Protocol PRN Reason: Hypoglycemia Protocol Stop: 06/22/20 01:29 Glucose (Glucose 40% Gel 15 Gm Tube) 15 - 30 gm PO UD PRN; Protocol PRN Reason: Hypoglycemia Protocol Stop: 06/22/20 01:29 Glucose (Glucose 10 Tabs/Tube) 4 - 8 tabs PO UD PRN; Protocol PRN Reason: Hypoglycemia Protocol Stop: 06/22/20 01:29 Last Admin: 05/29/20 21:15 Dose: 4 tabs Documented by: Heparin Sodium (Porcine) (Heparin Sod 5,000 Unit/0.5 Ml Vial) 5,000 units SQ Q8 MARY Stop: 06/02/20 23:59 Last Admin: 06/02/20 13:50 Dose: 5,000 units Documented by: Heparin Sodium (Porcine) (Heparin Sod 5,000 Unit/0.5 Ml Vial) 5,000 units SQ Q12 MARY Stop: 07/03/20 08:59 Hydralazine HCl (Hydralazine Hcl 25 Mg Tab) 25 mg PO BID MARY Stop: 07/01/20 20:59 Hydralazine HCl (Hydralazine 10 Mg Tab) 10 mg PO Q6H PRN PRN Reason: Hypertension/ SBP >160 Stop: 07/01/20 18:44 Cefepime HCl 2,000 mg/ Syringe 20 mls @ 5 mls/min IV Q24H MARY; Protocol Stop: 06/05/20 07:59 Last Admin: 06/02/20 11:32 Dose: 5 mls/min Documented by: Dexamethasone Sodium Phosphate (6 mg/ Syringe) 1.5 mls @ 1 mls/min IV DAILY MARY Stop: 06/10/20 08:59 Last Admin: 06/02/20 11:31 Dose: 1 mls/min Documented by: Insulin Aspart (Insulin Aspart 100 Units/Ml 3 Ml Pen) 0 units SC ACHS REPLACED BY [facility] Stop: 07/02/20 11:59 Last Admin: 06/02/20 16:36 Dose: 12 units Documented by: Insulin Detemir (Insulin Detemir Flexpen/Flex Touch 100 Units/Ml 3ml) 15 units SC BID REPLACED BY [facility] Stop: 07/02/20 11:59 Last Admin: 06/02/20 11:57 Dose: 15 units Documented by: Levothyroxine Sodium (Levothyroxine Sodium 137 Mcg Tablet) 137 mcg PO DAILYBB REPLACED BY [facility] Stop: 06/22/20 06:29 Last Admin: 06/02/20 06:16 Dose: 137 mcg Documented by: Metronidazole (Metronidazole 500 Mg Tab) 500 mg PO TID REPLACED BY [facility] Stop: 06/05/20 08:59 Last Admin: 06/02/20 16:35 Dose: 500 mg Documented by: Miscellaneous (Carbohydrates For Hypoglycemia ) 15 - 30 gm PO UD PRN PRN Reason: Hypoglycemia Treatment Stop: 06/22/20 01:29 Last Admin: 05/29/20 17:10 Dose: 15 gm Documented by: Miscellaneous Information (Pharmacy Glycemic Mgmt Consult) 1 ea N/A UD PRN PRN Reason: Consult Stop: 06/23/20 15:06 Miscellaneous Information (Cefepime Consult Active) 1 ea N/A UD PRN PRN Reason: Consult Stop: 06/28/20 07:21 Multi-Ingredient Cream (Eucerin Cr 120 Gm Jar) 1 appln EXT BID PRN PRN Reason: Rash Stop: 06/28/20 11:00 Multivitamins (Multivitamin Tab) 1 tab PO QAM REPLACED BY [facility] Stop: 07/03/20 08:59 Ondansetron HCl (Ondansetron Inj 2 Mg/Ml 2 Ml Vial) 4 mg IV Q6H PRN PRN Reason: Nausea Stop: 06/22/20 00:45 Last Admin: 06/01/20 08:25 Dose: 4 mg Documented by: Pantoprazole Sodium (Pantoprazole 40 Mg Tab) 40 mg PO QAM REPLACED BY [facility] Stop: 06/26/20 18:29 Last Admin: 06/02/20 11:33 Dose: 40 mg Documented by: Thiamine HCl (Thiamine Hcl 100 Mg Tab) 100 mg PO BID REPLACED BY [facility] Stop: 06/28/20 08:59 Last Admin: 06/02/20 11:32 Dose: 100 mg Documented by: Vitamin B Complex/Folic Acid (Nephrocaps) 1 cap PO DAILY MARY Stop: 06/22/20 08:59 Last Admin: 06/02/20 11:33 Dose: 1 cap Documented by: (1) Hypertension Hypertension type: essential hypertension Qualified Code(s): I10 - Essential (primary) hypertension
[2020-06-02] MEDS: DOXYCYCLINE HYCLATE 100 MG CAP PO SCH (21:35)
[2020-06-02] MEDS: ATORVASTATIN 40 MG TAB PO SCH (21:36)
[2020-06-03] MEDS: ALBUTEROL HFA 8 GM INHALER INH SCH ×3 (01:11→15:00)
[2020-06-03 05:08] LABS: Hematocrit (blood only) 21.9 % (42-52); Hemoglobin 7.3 g/dL (14.0-18.0); Mean Corpuscular Hemoglobin 27.2 pg (25-34); Mean Corpuscular Hgb Conc 33.3 g/dL (32-36); Mean Corpuscular Volume 81.7 fL (80-100); Platelet Count 384 K/uL (130-400); RDW Coefficient of Variation 16.3 % (11.5-14.5); Red Blood Count 2.68 M/uL (4.7-6.1); White Blood Count 9.45 K/uL (4.8-10.8)
[2020-06-03 05:25] LABS: iSTAT Arterial Blood Gas HCO3 23 meg/L (19-24); iSTAT Arterial Blood Gas pCO2 33 mmHg (35-46); iSTAT Arterial Blood Gas pH 7.44 (7.35-7.45); iSTAT Arterial Blood Gas pO2 59 mmHg (80-95); iSTAT Carbon Dioxide 23 mmol/L (24-31); iSTAT FiO2 70 %; iSTAT Site Art Line
[2020-06-03 06:09] LABS: BUN Creatinine Ratio 23.9 (10-20); Calcium 7.3 mg/dl (8.5-10.1); Creatinine Clr Calc Pharmacy 26.5 ml/min; Est GFR (Non-African American) 18.9; Magnesium 1.9 mg/dl (1.8-2.4); Phosphorus 3.1 mg/dl (2.5-4.9); Potassium 3.1 mmol/L (3.5-5.1)
[2020-06-03] MEDS: LEVOTHYROXINE SODIUM 137 MCG TABLET PO SCH (06:26)
[2020-06-03] MEDS ORDERED: POTASSIUM CHLORIDE 20 MEQ/15 ML UDC PO STA (06:37)
[2020-06-03] MEDS ORDERED: MAGNESIUM SULFATE / D5W 1 GM/100 ML BAG IV ONE (06:40)
[2020-06-03] MEDS ORDERED: POTASSIUM CHLORIDE CRTAB 20 MEQ TABCR PO STA ×2 (06:56→10:57)
[2020-06-03] MEDS: ASPIRIN 81 MG ECTAB PO SCH (07:58)
[2020-06-03] MEDS: metroNIDAZOLE 500 MG TAB PO SCH ×3 (07:58→20:07)
[2020-06-03] MEDS: GABAPENTIN 300 MG CAP PO SCH ×2 (07:59→20:07)
[2020-06-03] MEDS: FLUoxetine HCL 20 MG CAP PO SCH (07:59)
[2020-06-03] MEDS: DOXYCYCLINE HYCLATE 100 MG CAP PO SCH ×2 (07:59→20:07)
[2020-06-03] MEDS: NEPHROCAPS PO SCH (07:59)
[2020-06-03] MEDS: PANTOprazole 40 MG TAB PO SCH (07:59)
[2020-06-03] MEDS: THIAMINE HCL 100 MG TAB PO SCH ×2 (07:59→20:07)
[2020-06-03] MEDS: MULTIVITAMIN TAB PO SCH (07:59)
[2020-06-03] MEDS: HEPARIN SOD 5,000 UNIT/0.5 ML VIAL SQ SCH ×2 (07:59→20:08)
[2020-06-03] MEDS: ACETAMINOPHEN 325 MG TAB PO PRN (08:01)
[2020-06-03] MEDS: CEFEPIME 2,000 MG in SYRINGE 0 ML IV SCH (08:01)
[2020-06-03] MEDS: dexAMETHasone 6 MG in SYRINGE 0 ML IV SCH (08:01)
[2020-06-03] MEDS: INSULIN ASPART 100 UNITS/ML 3 ML PEN SC SCH ×4 (08:03→21:24)
[2020-06-03] MEDS: INSULIN DETEMIR FLEXPEN/FLEX TOUCH 100 UNITS/ML 3ML SC SCH (08:03)
[2020-06-03] MEDS ORDERED: FUROSEMIDE 40 MG in SYRINGE 0 ML IV STA (10:58)
--- NOTE | 2020-06-03 14:17 | Hospitalist Progress Note ---
Date of Service June 03, 2020 Assessment & Plan (1) Pneumonia: Positive for COVID-19 Acute respiratory distress syndrome with severe hypoxic respiratory failure Received 1 unit of convalescent plasma on 05/27/2020 has been receiving IV dexamethasone since that time He is not a candidate for remdesivir due to renal failure Continued ceftriaxone and doxycycline while inpt, repeat CXR shows progression of lung opacity, switched ceft to cefepime and added flagyl, pt on 11L of O2 Continue to manage blood glucose Obtained consent for convalescent plasma (05/27/20), and provided pt with FDA EUA fact sheet for convalescent plasma Received transfusion of 1 unit (05/28 night), received 40 IV lasix prior to transfusion Oxygen requirement increased to 13-15L via oxymask, switched to high flow nasal cannula ICU/ pulmonary medicine consulted-appreciate input and recommendation DD dimer was elevated at 1490. Negative dopplers Can't get CT PE d/t poor renal function VQ scan ordered - notified that the study can not be obtained on COVID pts Repeat LE Dopplers - negative Pt has been on heparin sq q8h for DVT ppx Switched to IV heparin given increased oxygen requirement, this was discussed including the risk of bleeding, with the pt who is in agreement -Discussed further with pulmonary medicine, seems that increased oxygen requirement is due to fluid overload, okay to stop IV heparin. Patient also had some increased bleeding from IV site. Switched back to subcu DVT Heparin prophylaxis. -Gave 60 IV Lasix with 2.5 metolazone in the morning, then 5 mg metolazone with 100 mg of IV Lasix (05/31/20). Per nephrology, 80 mg IV Lasix twice daily ordered Anemia Secondary to infection No acute blood loss identified Received 1 unit of PRBC HemoGlobin remains low at 7.3 We will monitor CBC (2) XOCHITL (acute kidney injury): Cr is 2.44>>2.7>>2.82, however then up to 3.47 >3.2 >3.4, now 4.5 and BUN 94 (06/02) XOCHITL on CKD d/t ATN in the setting of COVID 19infection Per physician at [facility], patient has CKD and last lab work in 12/2019 showed Cr of 2.32 Monitor Cr and avoid nephrotoxins Independent Living Advisor evaluation appreciated - ATN, worsening Cr, concern for poss. need for dialysis, no need for extra IV fluids Replete hypokalemia Creatinine has been improving, 3.42 as of 06/03/2020 (3) Diabetes mellitus type I: Continue insulin and lantus A1c is 8.3 Has had hypoglycemic episodes likely due to poor po intake Has been hyperglycemic likely with steroid therapy Continue to optimize glycemic control pharmacist on board (4) Hypothyroidism: Continue levothyroxine (5) Hypertension: now controlled Lisinopril on hold for now due to XOCHITL Continue amlodipine, hydralazine prn DVT prophylaxis Subcu heparin CODE STATUS Full Discussed with the security professional and the patient can be moved to medical telemetry unit for continuation of care Admission and Anticipated Discharge Date Admission Date: May 22, 2020 Subjective The patient was seen and examined in ICU He has been feeling a lot better today and requiring less oxygen via nasal cannula to maintain saturation Denies any complaints Review of Systems Review of Systems: All systems reviewed and are unremarkable except as noted below Constitutional: + weakness Respiratory: no dyspnea Cardiovascular: no chest pain Neurologic: + generalized weakness; no tremor(s), no headache(s) and no confusion Physical Exam Physical Exam: Lying in bed comfortably Constitutional: well developed and well nourished; no acute distress Eyes: PERRL, conjunctivae normal, anicteric sclerae ENMT: external ear and nose normal, oropharynx normal Neck: trachea midline, no thyromegaly Respiratory: no respiratory distress and no cough Auscultation: lungs clear to auscultation bilaterally Cardiovascular: Rate/Rhythm: regular rate and regular rhythm Heart Sounds: no murmur Gastrointestinal (Abdomen): Inspection/Auscultation: normal bowel sounds; abdomen not distended Percussion/Palpation: abdomen soft; abdomen nontender Musculoskeletal: No acute arthritis in any joint Neurologic: Alert, awake and oriented x3. Generally weak but no focal sensory and motor deficit appreciated. Psychiatric: A+Ox3, euthymic affect Results & Data Results & Data ([facility]) Vital Signs (Past 12 Hours) Vital Signs Temp Pulse Pulse Resp BP Pulse Ox 06/03/20 12:00 81 17 94 06/03/20 11:46 79 16 146/76 H 96 06/03/20 11:00 79 18 98 06/03/20 10:26 73 20 110/56 L 92 06/03/20 10:00 73 21 90 06/03/20 09:00 74 20 100 06/03/20 08:45 76 13 96 06/03/20 08:27 80 21 95 06/03/20 08:26 79 15 142/71 H 94 06/03/20 08:00 36.8 C 85 19 92 06/03/20 07:11 84 22 82 L 06/03/20 06:26 63 19 111/58 L 90 06/03/20 06:00 64 18 90 06/03/20 04:26 65 18 116/69 90 06/03/20 04:00 36.7 C 68 21 89 L 06/03/20 03:27 69 18 93 06/03/20 02:26 72 16 122/70 92 06/03/20 02:00 72 14 93 Laboratory Results Short CBC 06/03/20 Range/Units 04:32 WBC 9.45 (4.8-10.8) K/uL Hgb 7.3 L (14.0-18.0) g/dL Hct 21.9 L (42-52) % Plt Count 384 (130-400) K/uL BMP 06/03/20 04:32 Sodium 141 Potassium 3.1 L D Chloride 112 H Carbon Dioxide 21 BUN 82 H Creatinine 3.42 H D Glucose 145 H Calcium 7.3 L Urine 06/02/20 Range/Units 17:35 Urine Color Yellow Urine Appearance Clear (Clear) Urine pH 5.5 (4.5-7.5) Ur Specific [place] 1.017 (1.000-1.030) Urine Protein 3+ H (Negative) Urine Glucose (UA) Negative (Negative) Medications Administered Current Inpatient Medications Acetaminophen (Acetaminophen 325 Mg Tab) 650 mg PO Q4H PRN PRN Reason: Pain or Fever Stop: 06/22/20 00:45 Last Admin: 06/03/20 08:01 Dose: 650 mg Documented by: Albuterol (Albuterol Hfa 8 Gm Inhaler) 2 puffs INH Q4R PRN PRN Reason: shortness of breath Stop: 06/28/20 16:37 Albuterol (Albuterol Hfa 8 Gm Inhaler) 2 puffs INH Q6R MARY Stop: 06/29/20 22:59 Last Admin: 06/03/20 07:27 Dose: 2 puffs Documented by: Aspirin (Aspirin 81 Mg Ectab) 81 mg PO DAILY MARY Stop: 06/22/20 08:59 Last Admin: 06/03/20 07:58 Dose: 81 mg Documented by: Atorvastatin Calcium (Atorvastatin 40 Mg Tab) 80 mg PO HS MARY Stop: 06/22/20 20:59 Last Admin: 06/02/20 21:36 Dose: 80 mg Documented by: Dextrose (Dextrose 50% 50 Ml Syringe) 25 - 50 ml IV UD PRN; Protocol PRN Reason: Hypoglycemia Protocol Stop: 06/22/20 01:29 Last Admin: 05/29/20 21:38 Dose: 50 ml Documented by: Doxycycline Hyclate (Doxycycline Hyclate 100 Mg Cap) 100 mg PO BID MARY Stop: 06/05/20 23:59 Last Admin: 06/03/20 07:59 Dose: 100 mg Documented by: Fludrocortisone Acetate (Fludrocortisone Acetate 0.1 Mg Tab) 0.3 mg PO QAM MARY Stop: 07/03/20 08:59 Fluoxetine HCl (Fluoxetine Hcl 20 Mg Cap) 40 mg PO DAILY MARY Stop: 06/22/20 08:59 Last Admin: 06/03/20 07:59 Dose: 40 mg Documented by: Gabapentin (Gabapentin 300 Mg Cap) 300 mg PO BID MARY Stop: 07/01/20 20:59 Last Admin: 06/03/20 07:59 Dose: 300 mg Documented by: Glucagon (Glucagon For Inj 1 Mg Vial) 1 mg SQ UD PRN; Protocol PRN Reason: Hypoglycemia Protocol Stop: 06/22/20 01:29 Glucose (Glucose 40% Gel 15 Gm Tube) 15 - 30 gm PO UD PRN; Protocol PRN Reason: Hypoglycemia Protocol Stop: 06/22/20 01:29 Glucose (Glucose 10 Tabs/Tube) 4 - 8 tabs PO UD PRN; Protocol PRN Reason: Hypoglycemia Protocol Stop: 06/22/20 01:29 Last Admin: 05/29/20 21:15 Dose: 4 tabs Documented by: Heparin Sodium (Porcine) (Heparin Sod 5,000 Unit/0.5 Ml Vial) 5,000 units SQ Q12 MARY Stop: 07/03/20 08:59 Last Admin: 06/03/20 07:59 Dose: 5,000 units Documented by: Hydralazine HCl (Hydralazine Hcl 25 Mg Tab) 25 mg PO BID MARY Stop: 12/09/20 20:59 Hydralazine HCl (Hydralazine 10 Mg Tab) 10 mg PO Q6H PRN PRN Reason: Hypertension/ SBP >160 Stop: 07/01/20 18:44 Cefepime HCl 2,000 mg/ Syringe 20 mls @ 5 mls/min IV Q24H [facility]; Protocol Stop: 06/05/20 07:59 Last Admin: 06/03/20 08:01 Dose: 5 mls/min Documented by: Dexamethasone Sodium Phosphate (6 mg/ Syringe) 1.5 mls @ 1 mls/min IV DAILY MARY Stop: 06/10/20 08:59 Last Admin: 06/03/20 08:01 Dose: 1 mls/min Documented by: Insulin Aspart (Insulin Aspart 100 Units/Ml 3 Ml Pen) 0 units SC ACHS [facility] Stop: 07/02/20 11:59 Last Admin: 06/03/20 12:10 Dose: 19 units Documented by: Insulin Detemir (Insulin Detemir Flexpen/Flex Touch 100 Units/Ml 3ml) 15 units SC BID [facility] Stop: 07/02/20 11:59 Last Admin: 06/03/20 08:03 Dose: 15 units Documented by: Levothyroxine Sodium (Levothyroxine Sodium 137 Mcg Tablet) 137 mcg PO DAILYBB [facility] Stop: 06/22/20 06:29 Last Admin: 06/03/20 06:26 Dose: 137 mcg Documented by: Metronidazole (Metronidazole 500 Mg Tab) 500 mg PO TID [facility] Stop: 06/05/20 08:59 Last Admin: 06/03/20 12:12 Dose: 500 mg Documented by: Miscellaneous (Carbohydrates For Hypoglycemia ) 15 - 30 gm PO UD PRN PRN Reason: Hypoglycemia Treatment Stop: 06/22/20 01:29 Last Admin: 05/29/20 17:10 Dose: 15 gm Documented by: Miscellaneous Information (Pharmacy Glycemic Mgmt Consult) 1 ea N/A UD PRN PRN Reason: Consult Stop: 06/23/20 15:06 Miscellaneous Information (Cefepime Consult Active) 1 ea N/A UD PRN PRN Reason: Consult Stop: 06/28/20 07:21 Multi-Ingredient Cream (Eucerin Cr 120 Gm Jar) 1 appln EXT BID PRN PRN Reason: Rash Stop: 06/28/20 11:00 Multivitamins (Multivitamin Tab) 1 tab PO QAM MARY Stop: 07/03/20 08:59 Last Admin: 06/03/20 07:59 Dose: 1 tab Documented by: Ondansetron HCl (Ondansetron Inj 2 Mg/Ml 2 Ml Vial) 4 mg IV Q6H PRN PRN Reason: Nausea Stop: 06/22/20 00:45 Last Admin: 06/01/20 08:25 Dose: 4 mg Documented by: Pantoprazole Sodium (Pantoprazole 40 Mg Tab) 40 mg PO QAM [facility] Stop: 06/26/20 18:29 Last Admin: 06/03/20 07:59 Dose: 40 mg Documented by: Thiamine HCl (Thiamine Hcl 100 Mg Tab) 100 mg PO BID MARY Stop: 06/28/20 08:59 Last Admin: 06/03/20 07:59 Dose: 100 mg Documented by: Vitamin B Complex/Folic Acid (Nephrocaps) 1 cap PO DAILY MARY Stop: 06/22/20 08:59 Last Admin: 06/03/20 07:59 Dose: 1 cap Documented by: (1) Hypertension Hypertension type: essential hypertension Qualified Code(s): I10 - Essential (primary) hypertension
--- NOTE | 2020-06-03 14:26 | Pharmacy Report ---
Pharmacy Glycemic Short Note 2 - Date of Service June 03, 2020 - Glycemic Short BSG Results (Last 24 hours): 06/02/20 06/02/20 06/03/20 16:41 22:05 04:32 Glucose 145 H POC Glucose 237 H 145 H 06/03/20 06/03/20 11:35 11:37 Glucose POC Glucose 328 H* 311 H* Outpatient Anti-diabetic Regimen: * Lantus 15 units SC qAM, 8 units SC qPM * A1c = 8.3 % on 05/23/20 Risk Factors for Insulin Resistance: * Steroids: dexamethasone 6 mg po daily, day 7 of anticipated 10 day course (for COVID-19) * Infection: COVID-19, possible superimposed PNA * Diet: T1DM ASSESSMENT: 06/03/20 * Patient did trend down nicely yesterday with addition of levemir. Fasting BSG this morning was also well controlled. However, lunchtime BSG was significantly elevated, but AM novolog dose may not have been adequate. Patient remains on steroids and is tolerating a diet. Novolog was slightly tightened for dinnertime, however I am hesitant to make too many changes as patient was been labile in the past. Will assess a full 24 hours on current regimen and assess need for further changes tomorrow. May consider transition to NPH. 06/02/20 * Patient received only 6 units of insulin yesterday given decompensation. Long acting insulin was d/c'd and SQ scheduled regular insulin was trialed. BSGs remained elevated, however it appears correctional insulin was held overnight. * As patient clinically improved today and was ordered a diet, will resume long acting insulin but will trial Levemir for more favorable twice daily dosing PK effects in T1 diabetes. Will change back to novolog but tighten scale conservatively. Patient remains on dexamethasone 05/30/20: * Pt has received 58 units of insulin over the past 24hrs * 44 units of basal insulin with Lantus * 14 units of bolus insulin with NovoLog * BSGs ranging 38-221 mg/dl * Hypoglycemic multiple times last night, held Lantus this morning until blood sugars soto to 221mg/dl at lunch, resume Lantus at 50% reduction * Continue CF/CR at this time, loosened yesterday, may need to tighten tomorrow for better steroid coverage since basal is being reduced significantly * Patient remains on PO Dexamethasone 05/29/20: * Pt has received 81 units of insulin over the past 24hrs * 44 units of basal insulin with Lantus * 37 units of bolus insulin with NovoLog * BSGs ranging 82-232 mg/dl * Hyperglycemia secondary to steroids. Pt is requiring abou 2x outpatient dosing of insulin for steroid induced hyperglycemia (dexamethasone for COVID+) Insulin regimen will need significantly tapered once dxm dc. * BSGs trending downwards throughout the day - will loosen CF/CR * AM fasting BSG is in goal range at 142 mg/dl. No changes needed to basal insulin 05/28/20: * Pt has received 65 units of insulin over the past 24 hrs * 32 units of basal insulin with Lantus * 33 units of bolus insulin with NovoLog * BSGs ranging 98-314 mg/dl * Hyperglycemia continues secondary to daily dexamethasone * Patient received additional 9 units of correctional insulin overnight and correctional insulin prior to meals yesterday. Will add this to basal insulin dosing and increase Lantus to 44 units SQ daily. * Will tighten CR since steroids have their most profound effect on post- prandial hyperglycemia. Will loosen CF since CR tightening AND basal insulin significantly increased. 05/27/20 * Stressors stable (see above), except possible XOCHITL noted today * AM fasting BSG significantly elevated - will increase Lantus and add two overnight checks tonight * Post-prandial BSG's >180 mg/dL x2 yesterday - will tighten Novolog CHO ratio 05/26/20 * Stressors stable (see above) * BSG's gradually but steadily trended down yesterday after increase in Lantus in AM and tightening of Novolog parameters in PM. * Now with BSG of 191 mg/dL this AM * Will cautiously increase Lantus due to AM hyperglycemia and also 9 units of correctional insulin needed overnight. This dose may precipitate hypoglycemia in the AM were it not for the dexamethasone ordered, therefore ordered to be given simultaneously * Will continue with the current Novolog parameters as they were already tightened last evening * Plan for IV bolus for any BSG > 300 mg/dL - would like to continue to avoid [facility] andard-protocol insulin drip unless necessary due to need for hourly encounters/adjustments in COVID positive patient. BSG trend is reasonable at this time therefore OK for now. 05/25/20 * 55 yo M with T1DM admitted with COVID-19 and possible superimposed PNA * BSG's initially adequately controlled on 05/23, except AM hypoglycemia. * Severe AM hypoglycemia noted 05/24 AM prompted significant reduction in Lantus (from total of 23 to 15 units/24 hours yesterday). This reduction caused hyperglycemia this AM - will increase Lantus * Dexamethasone initiated 05/24 which caused hyperglycemia in the evening which prompted significant tightening of Novolog parameters. This tightening caused mild hypoglycemia last evening - Novolog parameters were loosened at that time. No further changes for now. May need to be tightened slightly later * IV insulin indicated due to better control BSG's but will give as one-time boluses given COVID positivity PLAN FOR INPATIENT GLYCEMIC CONTROL: * Basal insulin * Levemir 15 units SQ BID * Bolus insulin: * NovoLog per scale ACHS or Q6hrs while NPO * Goal Range: Low 120 mg/dL - High 150 mg/dL * Correction Factor: 20 mg/dL/unit * Nutritional / Prandial insulin per carb ratio of 1 unit per 6 grams CHO consumed ( was 1 unit per 7 grams CHO consumed for breakfast and lunch) Plan for discharge: Dependent on whether patient will be discharged on steroids
[2020-06-03] MEDS ORDERED: INSULIN HUMAN REGULAR PER UNIT 6 UNITS in SYRINGE 5.94 ML IV ONE ×2 (16:45→21:45)
--- NOTE | 2020-06-03 18:09 | Critical Care Progress Note ---
Date of Service June 03, 2020 Assessment & Plan (1) Pneumonia: Reason Critically Ill: COVID-19 acute respiratory distress syndrome with severe hypoxic respiratory failure. PLAN: Neuro: Continue fluoxetine 40 mg p.o. daily Resp: Acute respiratory distress syndrome secondary to COVID-19 Acute hypoxic respiratory failure -Already receiving steroids for severe ARDS PF: Improving -s/p convalescent plasma 1 unit (05/28 night) -Not candidate for remdesivir -Dexamethasone 6 mg IV daily: Shortened to 10-day duration in total CV: Hypertension -Amlodipine 5 mg daily -1 dose diuretic today -Holding hydralazine by mouth 25 mg p.o. 2 times daily -10 mg hydralazine p.o. as needed for systolic 160 or greater 81 mg aspirin to continue daily -We will defer antihypertensives to nephrology team Fluids/Renal: Chronic kidney disease: Creatinine improved -1 Nephrocap daily ID: Current anti-infectives: Flagyl 500 3 times daily day 6 of 7 by mouth -Doxycycline 100 mg 2 times daily day 7 by mouth -Cefepime 2 g every 24 hours day GI/Nutrition: ADA diet regular as the patient has been recovering from his hypoxic episodes rather quickly Thiamine supplementation -100 twice daily -Additional multivitamin Protonix 40 mg daily ordered by hospitalist service Zofran as needed nausea Continue atorvastatin 80 mg daily Heme: Elevated D-dimer of unclear significance Elevated fibrinogen of unclear significance -DVT prophylaxis: Heparin 5000 2 times daily Epistaxis -We will use low-dose DVT prophylaxis of 5000 twice daily as the patient is also uremic and that should hopefully minimize minor and major bleeding complications Endocrine: ICU hyperglycemia protocol -Type 1 diabetes Hypothyroidism -Continue levothyroxine 137 mg by mouth Mineralocorticoid replacement -0.3 mg p.o. daily of fludrocortisone on home med record -Currently receiving 6 mg dexamethasone which provides similar mineralocorticoid activity -Placed fludrocortisone order back onto chart on hold. -Indication from assisted medication reconciliation listed orthostatic hypotension Vascular access: Right internal jugular triple-lumen placed 06/01: Discontinue today -Left radial arterial line placed 06/01: Discontinued today Code Status: Full code Disposition: Patient was discussed in multidisciplinary rounds. Patient has stabilized and improved to a point that he could be considered for downgrade out of the ICU as he has proven his ability to self prone. (2) COVID-19: (3) CKD (chronic kidney disease): Admission and Anticipated Discharge Date Admission Date: May 22, 2020 Subjective No acute events overnight decreasing FiO2 requirements now tolerating mainly regular nasal cannula Review of Systems Review of Systems: No chest pain, continued subjective dyspnea Physical Exam Physical Exam: General: Alert. nontoxic. Skin: Warm, dry, Head: Atraumatic Ears, nose, mouth and throat: airway patent Cardiovascular: Normal peripheral perfusion Respiratory: Tachypnea, improved with limited accessory muscle use Gastrointestinal: Non distended Musculoskeletal: No deformity Results & Data Results & Data ([facility]) Vital Signs (Past 12 Hours) Vital Signs Temp Pulse Pulse Resp BP Pulse Ox 06/03/20 16:26 36.6 C 81 19 120/75 90 06/03/20 16:00 73 17 96 06/03/20 14:00 76 20 95 06/03/20 13:00 80 19 98 06/03/20 12:00 81 17 94 06/03/20 11:46 79 16 146/76 H 96 06/03/20 11:00 79 18 98 06/03/20 10:26 73 20 110/56 L 92 06/03/20 10:00 73 21 90 06/03/20 09:00 74 20 100 06/03/20 08:45 76 13 96 06/03/20 08:27 80 21 95 06/03/20 08:26 79 15 142/71 H 94 06/03/20 08:00 36.8 C 85 19 92 06/03/20 07:11 84 22 82 L 06/03/20 06:26 63 19 111/58 L 90 Coding Level of Care Code 25409 Subseq [facility] 3 Diagnoses Pneumonia J18.9 Laterality: left Lung location: lower lobe of lung Pneumonia type: due to unspecified organism COVID-19 U07.1 CKD (chronic kidney disease) N18.9 Chronic kidney disease stage: unspecified stage (1) Pneumonia Laterality: left Lung location: lower lobe of lung Pneumonia type: due to unspecified organism Qualified Code(s): J18.9 - Pneumonia, unspecified organism (2) CKD (chronic kidney disease) Chronic kidney disease stage: unspecified stage Qualified Code(s): N18.9 - Chronic kidney disease, unspecified
--- NOTE | 2020-06-03 18:21 | Nephrology Progress Note ---
Date of Service June 03, 2020 Assessment & Plan (1) XOCHITL (acute kidney injury): No recent baseline creatinine > last one prior to admission is 2 years old: 1.1-1.3 at that time. No OP/prior to admission creatinine documented. Pt presented with creatinine 2.5 on 05/22; then since 05/27 in mid to low 3s. bumped to 4.4 AM 06/01, 4.5 on 06/02; on 06/03 down to 3.4. on 06/01 lasix dosing was intensified (first had lasix 40 mg 05/27, then 60 mg 05/30; then two 80 mg doses as well as 100 mg 05/31). some low K again this am>> pt had 60 mEq po this am. other chemistries ok; relative hypotension from 06/01-06/02 improved. did d/w pt he may well need dialysis; we reviewed what dialysis is and how fluid overload or build up of poisons might make him need it > he is open to dialysis if need a rises -repeat uacm w/ 3+ dipstick protein, 1+ blood, consistent with even 2018 sediment; no infection or other inflammation -on bid hydralazine>>will stop standing hydralazine dose and give lasix IV 40 mg IV tid trial and another 20 mE K today -await 06/02 requested last OP labs from [facility] -lasix stopped after pm dose 06/01 >> lungs are clear, no edema on exam, markedly worsening renal function > use lasix as above and extra doses PRN for now -FR liberalized to 2L which is reasonable >>>lowered gabapentin dose d/t worsening XOCHITL >> from 600 mg qid to 300 mg bid as of 06/01 PM ; some potential for decreased mental status if dose not adjusted and pt is so far tolerating/no mention of pain -recommend renal u/s if clinically stable /feasible (none this admission) (2) COVID-19: on high flow 02 w/ near intubation / code purple for hypoxia 06/01 AM; ICU status now; recurrent hypoxemic episodes corrected with self-proning -also on one week course of flagyl, doxy, cefepime (now more than midway through course) -no recent F (3) Orthostatic hypotension: on standing /nursing home fludrocortisone prior to admission and now resumed including while completing dexamethasone Admission and Anticipated Discharge Date Admission Date: May 22, 2020 Subjective seen on rounds this am at 0915; no acute interval events; c/o dry mouth; breathing ok per pt; cough at times; no edema; no n/v and eating better now; no chest pain or palpitations; no rash; no F; on 6L for most of day today after high adrien ON Review of Systems Review of Systems: All systems reviewed & are unremarkable except as noted in HPI & below Physical Exam Constitutional: well developed, well nourished, + thin and comfortable; no acute distress Eyes: EOM intact bilaterally ENMT: Ears: no external ear abnormality Nose: no external nose abnormality Mouth: + dry oral mucous membranes Neck: no nuchal rigidity Respiratory: normal respiratory effort Auscultation: lungs clear to auscultation bilaterally Cardiovascular: RRR, no murmur, no edema Gastrointestinal (Abdomen): Inspection/Auscultation: abdomen normal to inspection and normal bowel sounds Percussion/Palpation: abdomen soft; abdomen nontender Musculoskeletal: Extremities: strength 5/5 throughout Skin: no rashes, warm and dry Psychiatric: A+Ox3, euthymic affect Orientation: alert and cooperative Eye Contact: good eye contact Genitourinary: mukherjee w/ ample light yellow clear urine Results & Data ([facility]) Vital Signs (Past 12 Hours) Vital Signs Temp Pulse Pulse Resp BP Pulse Ox 06/03/20 16:26 36.6 C 81 19 120/75 90 06/03/20 16:00 73 17 96 06/03/20 14:00 76 20 95 06/03/20 13:00 80 19 98 06/03/20 12:00 81 17 94 06/03/20 11:46 79 16 146/76 H 96 06/03/20 11:00 79 18 98 06/03/20 10:26 73 20 110/56 L 92 06/03/20 10:00 73 21 90 06/03/20 09:00 74 20 100 06/03/20 08:45 76 13 96 06/03/20 08:27 80 21 95 06/03/20 08:26 79 15 142/71 H 94 06/03/20 08:00 36.8 C 85 19 92 06/03/20 07:11 84 22 82 L 06/03/20 06:26 63 19 111/58 L 90 Laboratory Results 06/03/20 04:32 06/03/20 04:32 Diagnostic Findings cxr 1. No pneumothorax following placement of a right internal jugular central line. Tip projects over the proximal SVC. 2. No change in bilateral airspace opacities and interstitial thickening which favor an infectious process although pulmonary edema could appear similar.
[2020-06-03] MEDS ORDERED: POTASSIUM CHLORIDE CRTAB 20 MEQ TABCR PO ONE (18:24)
[2020-06-03] MEDS: ATORVASTATIN 40 MG TAB PO SCH (20:07)
[2020-06-03] MEDS: FUROSEMIDE 40 MG in SYRINGE 0 ML IV SCH (20:07)
[2020-06-03] MEDS ORDERED: INSULIN DETEMIR FLEXPEN/FLEX TOUCH 100 UNITS/ML 3ML SC ONE (21:00)
[2020-06-04 07:32] LABS: Eosinophils # (auto) 0.01 K/uL (0-0.5); Eosinophils % (auto) 0.1 %; Hematocrit (blood only) 26.3 % (42-52); Hemoglobin 8.8 g/dL (14.0-18.0); Immature Granulocytes # (auto) 0.08 K/uL (0.00-0.02); Immature Granulocytes % (auto) 0.5 %; Lymphocytes # (auto) 1.39 K/uL (1.2-3.4); Lymphocytes % (auto) 9.1 %; Mean Corpuscular Hemoglobin 27.5 pg (25-34); Mean Corpuscular Hgb Conc 33.5 g/dL (32-36); Mean Corpuscular Volume 82.2 fL (80-100); Mean Platelet Volume 10.2 fL (7.4-10.4); Monocytes # (auto) 0.64 K/uL (0.11-0.59); Monocytes % (auto) 4.2 %; Neutrophils # (auto) 13.08 K/uL (1.4-6.5); Neutrophils % (auto) 86.1 %; Platelet Count 514 K/uL (130-400); RDW Coefficient of Variation 16.4 % (11.5-14.5)
[2020-06-04 08:03] LABS: BUN Creatinine Ratio 21.9 (10-20); Calcium 8.6 mg/dl (8.5-10.1); Creatinine Clr Calc Pharmacy 22.2 ml/min; Est GFR (African American) 17.8; Est GFR (Non-African American) 15.3; Magnesium 2.1 mg/dl (1.8-2.4); Phosphorus 2.5 mg/dl (2.5-4.9); Potassium 3.9 mmol/L (3.5-5.1)
[2020-06-04] MEDS: LEVOTHYROXINE SODIUM 137 MCG TABLET PO SCH (08:32)
[2020-06-04] MEDS: CEFEPIME 2,000 MG in SYRINGE 0 ML IV SCH (08:32)
[2020-06-04] MEDS: FUROSEMIDE 40 MG in SYRINGE 0 ML IV SCH ×2 (08:32→17:04)
[2020-06-04] MEDS: dexAMETHasone 6 MG in SYRINGE 0 ML IV SCH (08:32)
[2020-06-04] MEDS: NEPHROCAPS PO SCH (08:33)
[2020-06-04] MEDS: FLUoxetine HCL 20 MG CAP PO SCH (08:33)
[2020-06-04] MEDS: ASPIRIN 81 MG ECTAB PO SCH (08:52)
[2020-06-04] MEDS: metroNIDAZOLE 500 MG TAB PO SCH ×2 (08:53→16:52)
[2020-06-04] MEDS: PANTOprazole 40 MG TAB PO SCH (08:53)
[2020-06-04] MEDS: DOXYCYCLINE HYCLATE 100 MG CAP PO SCH ×2 (08:55→20:27)
[2020-06-04] MEDS: THIAMINE HCL 100 MG TAB PO SCH ×2 (08:56→20:27)
[2020-06-04] MEDS: INSULIN ASPART 100 UNITS/ML 3 ML PEN SC SCH ×4 (10:09→21:55)
[2020-06-04] MEDS: INSULIN DETEMIR FLEXPEN/FLEX TOUCH 100 UNITS/ML 3ML SC SCH (10:10)
[2020-06-04] MEDS: HEPARIN SOD 5,000 UNIT/0.5 ML VIAL SQ SCH ×2 (10:10→21:56)
--- NOTE | 2020-06-04 13:09 | Pharmacy Report ---
Pharmacy Glycemic Short Note 2 - Date of Service June 04, 2020 - Glycemic Short BSG Results (Last 24 hours): 06/03/20 06/03/20 06/03/20 16:22 16:23 20:19 Glucose POC Glucose 348 H* 327 H* 403 H* 06/04/20 06/04/20 06/04/20 06:46 08:29 11:28 Glucose 117 H POC Glucose 108 H 105 H Outpatient Anti-diabetic Regimen: * Lantus 15 units SC qAM, 8 units SC qPM * A1c = 8.3 % on 05/23/20 Risk Factors for Insulin Resistance: * Steroids: dexamethasone 6 mg po daily, day 7 of anticipated 10 day course (for COVID-19) * Infection: COVID-19, possible superimposed PNA * Diet: T1DM ASSESSMENT: 06/04/20: * Patient's fasting and lunchtime BSG well controlled today after more heavily weighting AM Levemir. Will continue to monitor for further adjustments. The patient appears to be very labile and BSG trends have been difficult to identify thus far. Patient continues on dexamethasone and is tolerating a diet. 06/03/20 * Patient did trend down nicely yesterday with addition of levemir. Fasting BSG this morning was also well controlled. However, lunchtime BSG was significantly elevated, but AM novolog dose may not have been adequate. Patient remains on steroids and is tolerating a diet. Novolog was slightly tightened for dinnertime, however I am hesitant to make too many changes as patient was been labile in the past. Will assess a full 24 hours on current regimen and assess need for further changes tomorrow. May consider transition to NPH. 06/02/20 * Patient received only 6 units of insulin yesterday given decompensation. Long acting insulin was d/c'd and SQ scheduled regular insulin was trialed. BSGs remained elevated, however it appears correctional insulin was held overnight. * As patient clinically improved today and was ordered a diet, will resume long acting insulin but will trial Levemir for more favorable twice daily dosing PK effects in T1 diabetes. Will change back to novolog but tighten scale conservatively. Patient remains on dexamethasone 05/30/20: * Pt has received 58 units of insulin over the past 24hrs * 44 units of basal insulin with Lantus * 14 units of bolus insulin with NovoLog * BSGs ranging 38-221 mg/dl * Hypoglycemic multiple times last night, held Lantus this morning until blood sugars soto to 221mg/dl at lunch, resume Lantus at 50% reduction * Continue CF/CR at this time, loosened yesterday, may need to tighten tomorrow for better steroid coverage since basal is being reduced significantly * Patient remains on PO Dexamethasone 05/29/20: * Pt has received 81 units of insulin over the past 24hrs * 44 units of basal insulin with Lantus * 37 units of bolus insulin with NovoLog * BSGs ranging 82-232 mg/dl * Hyperglycemia secondary to steroids. Pt is requiring abou 2x outpatient dosing of insulin for steroid induced hyperglycemia (dexamethasone for COVID+) Insulin regimen will need significantly tapered once dxm dc. * BSGs trending downwards throughout the day - will loosen CF/CR * AM fasting BSG is in goal range at 142 mg/dl. No changes needed to basal insulin 05/28/20: * Pt has received 65 units of insulin over the past 24 hrs * 32 units of basal insulin with Lantus * 33 units of bolus insulin with NovoLog * BSGs ranging 98-314 mg/dl * Hyperglycemia continues secondary to daily dexamethasone * Patient received additional 9 units of correctional insulin overnight and correctional insulin prior to meals yesterday. Will add this to basal insulin dosing and increase Lantus to 44 units SQ daily. * Will tighten CR since steroids have their most profound effect on post- prandial hyperglycemia. Will loosen CF since CR tightening AND basal insulin significantly increased. 05/27/20 * Stressors stable (see above), except possible XOCHITL noted today * AM fasting BSG significantly elevated - will increase Lantus and add two overnight checks tonight * Post-prandial BSG's >180 mg/dL x2 yesterday - will tighten Novolog CHO ratio 05/26/20 * Stressors stable (see above) * BSG's gradually but steadily trended down yesterday after increase in Lantus in AM and tightening of Novolog parameters in PM. * Now with BSG of 191 mg/dL this AM * Will cautiously increase Lantus due to AM hyperglycemia and also 9 units of correctional insulin needed overnight. This dose may precipitate hypoglycemia in the AM were it not for the dexamethasone ordered, therefore ordered to be given simultaneously * Will continue with the current Novolog parameters as they were already tightened last evening * Plan for IV bolus for any BSG > 300 mg/dL - would like to continue to avoid standard-protocol insulin drip unless necessary due to need for hourly encounters/adjustments in COVID positive patient. BSG trend is reasonable at this time therefore OK for now. 05/25/20 * 55 yo M with T1DM admitted with COVID-19 and possible superimposed PNA * BSG's initially adequately controlled on 05/23, except AM hypoglycemia. * Severe AM hypoglycemia noted 05/24 AM prompted significant reduction in Lantus (from total of 23 to 15 units/24 hours yesterday). This reduction caused hyperglycemia this AM - will increase Lantus * Dexamethasone initiated 05/24 which caused hyperglycemia in the evening which prompted significant tightening of Novolog parameters. This tightening caused mild hypoglycemia last evening - Novolog parameters were loosened at that time. No further changes for now. May need to be tightened slightly later * IV insulin indicated due to better control BSG's but will give as one-time boluses given COVID positivity PLAN FOR INPATIENT GLYCEMIC CONTROL: * Basal insulin * Levemir 20 units SQ qam * Levemir 12 units SQ HS * Bolus insulin: * NovoLog per scale ACHS or Q6hrs while NPO * Goal Range: Low 120 mg/dL - High 150 mg/dL * Correction Factor: 20 mg/dL/unit * Nutritional / Prandial insulin per carb ratio of 1 unit per 6 grams CHO consumed Plan for discharge: Dependent on whether patient will be discharged on steroids
[2020-06-04] MEDS: FLUDROCORTISONE ACETATE 0.1 MG TAB PO SCH (13:13)
[2020-06-04] MEDS: MULTIVITAMIN TAB PO SCH (13:13)
[2020-06-04] MEDS: GABAPENTIN 300 MG CAP PO SCH ×2 (13:13→20:27)
--- NOTE | 2020-06-04 18:49 | Hospitalist Progress Note ---
Date of Service June 04, 2020 Assessment & Plan (1) Pneumonia: Positive for COVID-19 Acute respiratory distress syndrome with severe hypoxic respiratory failure Received 1 unit of convalescent plasma on 05/27/2020 has been receiving IV dexamethasone since that time He is not a candidate for remdesivir due to renal failure Continued ceftriaxone and doxycycline while inpt, repeat CXR shows progression of lung opacity, switched ceft to cefepime and added flagyl, pt on 11L of O2 Continue to manage blood glucose Obtained consent for convalescent plasma (05/27/20), and provided pt with FDA EUA fact sheet for convalescent plasma Received transfusion of 1 unit (05/28 night), received 40 IV lasix prior to transfusion Oxygen requirement increased to 13-15L via oxymask, switched to high flow nasal cannula ICU/ pulmonary medicine consulted-appreciate input and recommendation Remains stable but requiring very high flow oxygen Not yet ready to be transferred to [facility] until the oxygen requirement improves DD dimer was elevated at 1490. Negative dopplers Can't get CT PE d/t poor renal function VQ scan ordered - notified that the study can not be obtained on COVID pts Repeat LE Dopplers - negative Pt has been on heparin sq q8h for DVT ppx Switched to IV heparin given increased oxygen requirement, this was discussed including the risk of bleeding, with the pt who is in agreement -Discussed further with pulmonary medicine, seems that increased oxygen requirement is due to fluid overload, okay to stop IV heparin. Patient also had some increased bleeding from IV site. Switched back to subcu DVT Heparin prophylaxis. -Gave 60 IV Lasix with 2.5 metolazone in the morning, then 5 mg metolazone with 100 mg of IV Lasix (05/31/20). Per nephrology, 80 mg IV Lasix twice daily ordered Lasix doses will be adjusted as per nephrology Anemia Secondary to infection No acute blood loss identified Received 1 unit of PRBC HemoGlobin remains low at 7.3 We will monitor CBC-hemoglobin is 8.8 on 06/04/2020 (2) XOCHITL (acute kidney injury): Cr is 2.44>>2.7>>2.82, however then up to 3.47 >3.2 >3.4, now 4.5 and BUN 94 (06/02) XOCHITL on CKD d/t ATN in the setting of COVID 19infection Per physician at [facility], patient has CKD and last lab work in 12/2019 showed Cr of 2.32 Monitor Cr and avoid nephrotoxins [employer] evaluation appreciated - ATN, worsening Cr, concern for poss. need for dialysis, no need for extra IV fluids Replete hypokalemia Creatinine has been improving, 3.42 as of 06/03/2020 Worse as of today and the Lasix doses will be adjusted by registered nurses (3) Diabetes mellitus type I: Continue insulin and lantus A1c is 8.3 Has had hypoglycemic episodes likely due to poor po intake Has been hyperglycemic likely with steroid therapy Continue to optimize glycemic control pharmacist on board (4) Hypothyroidism: Continue levothyroxine (5) Hypertension: now controlled Lisinopril on hold for now due to XOCHITL Continue amlodipine, hydralazine prn DVT prophylaxis Subcu heparin CODE STATUS Full Discussed with the staff electrical engineer and the patient can be moved to medical telemetry unit for continuation of care Admission and Anticipated Discharge Date Admission Date: May 22, 2020 Subjective The patient was seen and examined in ICU He has been feeling a lot better today and requiring less oxygen via nasal cannula to maintain saturation Denies any complaints 06/04/2020 The patient was seen and examined in telemetry unit He has been feeling a lot better but is still requiring high flow oxygen to maintain saturation Denies any significant symptoms Review of Systems Review of Systems: All systems reviewed and are unremarkable except as noted below Constitutional: + weakness Neurologic: + generalized weakness; no tremor(s), no headache(s) and no confusion Physical Exam Physical Exam: Lying in bed comfortably Constitutional: well developed and well nourished; no acute distress Eyes: PERRL, conjunctivae normal, anicteric sclerae ENMT: external ear and nose normal, oropharynx normal Neck: trachea midline, no thyromegaly Respiratory: no respiratory distress and no cough Auscultation: lungs clear to auscultation bilaterally Cardiovascular: Rate/Rhythm: regular rate and regular rhythm Heart Sounds: no murmur Gastrointestinal (Abdomen): Inspection/Auscultation: normal bowel sounds; abdomen not distended Percussion/Palpation: abdomen soft; abdomen nontender Musculoskeletal: No acute arthritis in any joint Neurologic: Generally weak without any focal neuro deficit Psychiatric: A+Ox3, euthymic affect Results & Data Results & Data ([facility]) Vital Signs (Past 12 Hours) Vital Signs Temp Pulse Pulse Resp BP BP Pulse Ox 06/04/20 16:39 36.9 C 85 22 127/72 99 06/04/20 16:00 90 22 127/72 99 06/04/20 15:12 24 92 06/04/20 11:29 36.9 C 90 24 145/79 H 91 06/04/20 11:13 93 H 16 92 Laboratory Results Short CBC 06/04/20 Range/Units 06:46 WBC 15.20 H (4.8-10.8) K/uL Hgb 8.8 L (14.0-18.0) g/dL Hct 26.3 L (42-52) % Plt Count 514 H (130-400) K/uL BMP 06/04/20 06:46 Sodium 138 Potassium 3.9 D Chloride 107 Carbon Dioxide 23 BUN 89 H Creatinine 4.07 H D Glucose 117 H Calcium 8.6 D Medications Administered Current Inpatient Medications Acetaminophen (Acetaminophen 325 Mg Tab) 650 mg PO Q4H PRN PRN Reason: Pain or Fever Stop: 06/22/20 00:45 Last Admin: 06/03/20 08:01 Dose: 650 mg Documented by: Albuterol (Albuterol Hfa 8 Gm Inhaler) 2 puffs INH Q4R PRN PRN Reason: shortness of breath Stop: 06/28/20 16:37 Aspirin (Aspirin 81 Mg Ectab) 81 mg PO DAILY MARY Stop: 06/22/20 08:59 Last Admin: 06/04/20 08:52 Dose: 81 mg Documented by: Atorvastatin Calcium (Atorvastatin 40 Mg Tab) 80 mg PO HS MARY Stop: 06/22/20 20:59 Last Admin: 06/03/20 20:07 Dose: 80 mg Documented by: Dextrose (Dextrose 50% 50 Ml Syringe) 25 - 50 ml IV UD PRN; Protocol PRN Reason: Hypoglycemia Protocol Stop: 06/22/20 01:29 Last Admin: 05/29/20 21:38 Dose: 50 ml Documented by: Doxycycline Hyclate (Doxycycline Hyclate 100 Mg Cap) 100 mg PO BID MARY Stop: 06/05/20 23:59 Last Admin: 06/04/20 08:55 Dose: 100 mg Documented by: Fludrocortisone Acetate (Fludrocortisone Acetate 0.1 Mg Tab) 0.3 mg PO QAM MARY Stop: 07/03/20 08:59 Last Admin: 06/04/20 13:13 Dose: 0.3 mg Documented by: Fluoxetine HCl (Fluoxetine Hcl 20 Mg Cap) 40 mg PO DAILY MARY Stop: 06/22/20 08:59 Last Admin: 06/04/20 08:33 Dose: 40 mg Documented by: Gabapentin (Gabapentin 300 Mg Cap) 300 mg PO BID MARY Stop: 07/01/20 20:59 Last Admin: 06/04/20 13:13 Dose: 300 mg Documented by: Glucagon (Glucagon For Inj 1 Mg Vial) 1 mg SQ UD PRN; Protocol PRN Reason: Hypoglycemia Protocol Stop: 06/22/20 01:29 Glucose (Glucose 40% Gel 15 Gm Tube) 15 - 30 gm PO UD PRN; Protocol PRN Reason: Hypoglycemia Protocol Stop: 06/22/20 01:29 Glucose (Glucose 10 Tabs/Tube) 4 - 8 tabs PO UD PRN; Protocol PRN Reason: Hypoglycemia Protocol Stop: 06/22/20 01:29 Last Admin: 05/29/20 21:15 Dose: 4 tabs Documented by: Heparin Sodium (Beef Lung) (Heparin 10 Unit/Ml 5 Ml Flush) 5 ml FLUSH PRN PRN PRN Reason: Flush Stop: 07/03/20 22:44 Heparin Sodium (Porcine) (Heparin Sod 5,000 Unit/0.5 Ml Vial) 5,000 units SQ Q12 MARY Stop: 07/03/20 08:59 Last Admin: 06/04/20 10:10 Dose: 5,000 units Documented by: Hydralazine HCl (Hydralazine 10 Mg Tab) 10 mg PO Q6H PRN PRN Reason: Hypertension/ SBP >160 Stop: 07/01/20 18:44 Cefepime HCl 2,000 mg/ Syringe 20 mls @ 5 mls/min IV Q24H MARY; Protocol Stop: 06/05/20 07:59 Last Admin: 06/04/20 08:32 Dose: 5 mls/min Documented by: Dexamethasone Sodium Phosphate (6 mg/ Syringe) 1.5 mls @ 1 mls/min IV DAILY MARY Stop: 06/10/20 08:59 Last Admin: 06/04/20 08:32 Dose: 1 mls/min Documented by: Furosemide 20 mg/ Syringe 2 mls @ 4 mls/min IV [id number] MARY Stop: 07/05/20 08:59 Insulin Aspart (Insulin Aspart 100 Units/Ml 3 Ml Pen) 0 units SC ACHS [facility] Stop: 07/02/20 11:59 Last Admin: 06/04/20 17:36 Dose: 11 units Documented by: Insulin Detemir (Insulin Detemir Flexpen/Flex Touch 100 Units/Ml 3ml) 20 units SC QAM [facility] Stop: 07/04/20 08:59 Last Admin: 06/04/20 10:10 Dose: 20 units Documented by: Insulin Detemir (Insulin Detemir Flexpen/Flex Touch 100 Units/Ml 3ml) 12 units SC HS [facility] Stop: 07/04/20 20:59 Levothyroxine Sodium (Levothyroxine Sodium 137 Mcg Tablet) 137 mcg PO DAILYBB [facility] Stop: 06/22/20 06:29 Last Admin: 06/04/20 08:32 Dose: 137 mcg Documented by: Metronidazole (Metronidazole 500 Mg Tab) 500 mg PO TID [facility] Stop: 06/05/20 08:59 Last Admin: 06/04/20 16:52 Dose: 500 mg Documented by: Miscellaneous (Carbohydrates For Hypoglycemia ) 15 - 30 gm PO UD PRN PRN Reason: Hypoglycemia Treatment Stop: 06/22/20 01:29 Last Admin: 05/29/20 17:10 Dose: 15 gm Documented by: Miscellaneous Information (Pharmacy Glycemic Mgmt Consult) 1 ea N/A UD PRN PRN Reason: Consult Stop: 06/23/20 15:06 Miscellaneous Information (Cefepime Consult Active) 1 ea N/A UD PRN PRN Reason: Consult Stop: 06/28/20 07:21 Multi-Ingredient Cream (Eucerin Cr 120 Gm Jar) 1 appln EXT BID PRN PRN Reason: Rash Stop: 06/28/20 11:00 Multivitamins ([facility]ivitamin Tab) [facility] [place] 07/03/20 08:59 Last Admin: 06/04/20 13:13 Dose: 1 tab Documented by: Ondansetron HCl (Ondansetron Inj 2 Mg/Ml 2 Ml Vial) 4 mg IV Q6H PRN PRN Reason: Nausea Stop: 06/22/20 00:45 Last Admin: 06/01/20 08:25 Dose: 4 mg Documented by: Pantoprazole Sodium (Pantoprazole 40 Mg Tab) 40 mg PO QAM MARY Stop: 06/26/20 18:29 Last Admin: 06/04/20 08:53 Dose: 40 mg Documented by: Thiamine HCl (Thiamine Hcl 100 Mg Tab) 100 mg PO BID MARY Stop: 06/28/20 08:59 Last Admin: 06/04/20 08:56 Dose: 100 mg Documented by: Vitamin B Complex/Folic Acid (Nephrocaps) 1 cap PO DAILY MARY Stop: 06/22/20 08:59 Last Admin: 06/04/20 08:33 Dose: 1 cap Documented by: (1) Hypertension Hypertension type: essential hypertension Qualified Code(s): I10 - Essential (primary) hypertension
[2020-06-04] MEDS: ATORVASTATIN 40 MG TAB PO SCH (20:27)
--- NOTE | 2020-06-04 20:31 | Nephrology Progress Note ---
Date of Service June 04, 2020 Assessment & Plan (1) XOCHITL (acute kidney injury): Per hospitalist, baseline creatinine 2.3 in 12/2019. No OP/prior to admission creatinine documented. Pt presented with creatinine 2.5 on 05/22; then since 05/27 in mid to low 3s. bumped to 4.4 AM 06/01, 4.5 on 06/02; on 06/03 down to 3.4, back up to 4.1 06/04 w/ resumption of lasix. on 06/01 lasix dosing was intensified (first had lasix 40 mg 05/27, then 60 mg 05/30; then two 80 mg doses as well as 100 mg 05/31). K ok this am. other chemistries ok; relative hypotension from 06/01-06/02 improved. did d/w pt he may well need dialysis; we reviewed what dialysis is and how fluid overload or build up of poisons might make him need it > he is open to dialysis if need arises -repeat u[facility] w/ 3+ dipstick protein, 1+ blood, consistent with even 2018 sediment; no infection or other inflammation -on bid hydralazine>>lowered lasix IV to 20 mg IV bid17 trial -await 06/02 [facility] -[facility]ix stopped after pm dose 06/01 >> lungs are clear, no edema on exam, markedly worsening renal function > use lasix as above and extra doses PRN for now -cont FR 2L >>>cont lowered gabapentin dose d/t worsening XOCHITL >> from 600 mg qid to 300 mg bid as of 06/01 PM ; some potential for decreased mental status if dose not adjusted and pt is so far tolerating/no mention of pain -recommend renal u/s if clinically stable /feasible (none this admission) (2) COVID-19: on high flow 02 w/ near intubation / code purple for hypoxia 06/01 AM; ICU status downgraded 06/03; recurrent hypoxemic episodes corrected with self- proning >> he has been on 6L or more 02 continuously since 05/28 -also on one week course of flagyl, doxy, cefepime (now more than midway through course) -no recent F (3) Orthostatic hypotension: on standing /custodial fludrocortisone prior to admission and now resumed including while completing dexamethasone Admission and Anticipated Discharge Date Admission Date: May 22, 2020 Review of Systems Review of Systems: Other Physical Exam Constitutional: PE deferred in the interest of preserving PPE and limiting staff exposure Results & Data ([facility]) Vital Signs (Past 12 Hours) Vital Signs Temp Pulse Pulse Resp BP BP Pulse Ox 06/04/20 19:42 86 20 88 L 06/04/20 16:39 36.9 C 85 22 127/72 99 06/04/20 16:00 90 22 127/72 99 06/04/20 15:12 24 92 06/04/20 11:29 36.9 C 90 24 145/79 H 91 06/04/20 11:13 93 H 16 92 Laboratory Results 06/04/20 06:46 06/04/20 06:46
[2020-06-04] MEDS ORDERED: INSULIN DETEMIR FLEXPEN/FLEX TOUCH 100 UNITS/ML 3ML SC SCH (21:00)
[2020-06-05] MEDS: metroNIDAZOLE 500 MG TAB PO SCH (02:23)
[2020-06-05] MEDS: LEVOTHYROXINE SODIUM 137 MCG TABLET PO SCH (06:13)
[2020-06-05 07:04] LABS: Basophils # (auto) 0.01 K/uL (0-0.2); Basophils % (auto) 0.1 %; Eosinophils # (auto) 0.07 K/uL (0-0.5); Eosinophils % (auto) 0.5 %; Hemoglobin 8.9 g/dL (14.0-18.0); Immature Granulocytes # (auto) 0.13 K/uL (0.00-0.02); Immature Granulocytes % (auto) 0.9 %; Lymphocytes # (auto) 1.77 K/uL (1.2-3.4); Lymphocytes % (auto) 11.9 %; Mean Corpuscular Hemoglobin 27.6 pg (25-34); Mean Corpuscular Volume 83.6 fL (80-100); Mean Platelet Volume 10.6 fL (7.4-10.4); Monocytes # (auto) 0.58 K/uL (0.11-0.59); Monocytes % (auto) 3.9 %; Neutrophils # (auto) 12.32 K/uL (1.4-6.5); Neutrophils % (auto) 82.7 %; Platelet Count 535 K/uL (130-400); RDW Coefficient of Variation 16.6 % (11.5-14.5); RDW Standard Deviation 51.1 fL (36.4-46.3); Red Blood Count 3.23 M/uL (4.7-6.1); White Blood Count 14.88 K/uL (4.8-10.8)
[2020-06-05 07:45] LABS: Calcium 8.7 mg/dl (8.5-10.1); Est GFR (African American) 17.6; Est GFR (Non-African American) 15.2; Potassium 4.1 mmol/L (3.5-5.1)
[2020-06-05] MEDS: PANTOprazole 40 MG TAB PO SCH (09:01)
[2020-06-05] MEDS: NEPHROCAPS PO SCH (09:01)
[2020-06-05] MEDS: GABAPENTIN 300 MG CAP PO SCH ×2 (09:02→22:17)
[2020-06-05] MEDS: FLUoxetine HCL 20 MG CAP PO SCH (09:02)
[2020-06-05] MEDS: ASPIRIN 81 MG ECTAB PO SCH (09:02)
[2020-06-05] MEDS: FLUDROCORTISONE ACETATE 0.1 MG TAB PO SCH (09:02)
[2020-06-05] MEDS: MULTIVITAMIN TAB PO SCH (09:03)
[2020-06-05] MEDS: THIAMINE HCL 100 MG TAB PO SCH ×2 (09:03→23:16)
[2020-06-05] MEDS: DOXYCYCLINE HYCLATE 100 MG CAP PO SCH ×2 (09:06→22:18)
--- NOTE | 2020-06-05 09:47 | Pharmacy Report ---
Pharmacy Glycemic Short Note 2 - Date of Service June 05, 2020 - Glycemic Short BSG Results (Last 24 hours): Outpatient Anti-diabetic Regimen: * Lantus 15 units SC qAM, 8 units SC qPM * A1c = 8.3 % on 05/23/20 Risk Factors for Insulin Resistance: * Steroids: dexamethasone 6 mg po daily, day 7 of anticipated 10 day course (for COVID-19) * Infection: COVID-19, possible superimposed PNA * Diet: T1DM ASSESSMENT: 06/05: * Gilbert received 65 units of insulin total yesterday * 32 units basal + 33 units bolus * BSGs were [phone] mg/dL * BSGs trending upwards throughout the day * Fasting BSG this AM was controlled at 138 mg/dL * Lunchtime BSG was 52 mg/dL with a recheck of 57 mg/dL * Patient was not symptomatic and did not require treatment. BSG increased with lunch meal. * Each of the last two days, patient's AM and lunch BSGs have been low or borderline low which may be secondary to BID Lantus * Will attempt front-loading all of his basal insulin in the AM when he get the dexamethasone 06/04: * Patient's fasting and lunchtime BSG well controlled today after more heavily weighting AM Levemir. Will continue to monitor for further adjustments. The patient appears to be very labile and BSG trends have been difficult to identify thus far. Patient continues on dexamethasone and is tolerating a diet. 06/03: * Patient did trend down nicely yesterday with addition of levemir. Fasting BSG this morning was also well controlled. However, lunchtime BSG was significantly elevated, but AM novolog dose may not have been adequate. Patient remains on steroids and is tolerating a diet. Novolog was slightly tightened for dinnertime, however I am hesitant to make too many changes as patient was been labile in the past. Will assess a full 24 hours on current regimen and assess need for further changes tomorrow. May consider transition to NPH. PLAN FOR INPATIENT GLYCEMIC CONTROL: * Basal insulin - decrease slightly and change in schedule * Levemir 30 units SQ qAM * Bolus insulin - no change * NovoLog per scale ACHS or Q6hrs while NPO * Goal Range: Low 120 mg/dL - High 150 mg/dL * Correction Factor: 20 mg/dL/unit * Nutritional / Prandial insulin per carb ratio of 1 unit per 5 grams CHO consumed Plan for discharge: Dependent on whether patient will be discharged on steroids
[2020-06-05] MEDS: INSULIN ASPART 100 UNITS/ML 3 ML PEN SC SCH ×4 (10:13→22:39)
[2020-06-05] MEDS: INSULIN DETEMIR FLEXPEN/FLEX TOUCH 100 UNITS/ML 3ML SC SCH (10:14)
[2020-06-05] MEDS: HEPARIN SOD 5,000 UNIT/0.5 ML VIAL SQ SCH ×2 (10:14→22:39)
--- NOTE | 2020-06-05 10:25 | XRay Report ---
XR chest 1V portable CLINICAL HISTORY: Pneumonia COMPARISON STUDY: 06/01/2020 FINDINGS: The cardiac and mediastinal contours remain stable. There is been interval removal of the r ight internal jugular central venous catheter. There are persistent bilateral interstitial pulmonary opacities.[There is an 12 mm nodular opacity at the left lung base. As this was not visualized the pr ior study, this is unlikely to represent a pulmonary mass. This likely represents focal atelectasis o r focal pulmonary consolidation. This can be followed on subsequent studies. IMPRESSION: 1. Persistent bilateral interstitial pulmonary opacities 2. Interval removal of the right internal jugular central venous catheter 3. 12 mm nodular opacity at the left lung base ACT 112: Negative or not required by law. Electronically signed by: Jason Ram M.D. 06/05/2020 10:22 AM
[2020-06-05] MEDS: dexAMETHasone 6 MG in SYRINGE 0 ML IV SCH (12:22)
[2020-06-05] MEDS: CEFEPIME 2,000 MG in SYRINGE 0 ML IV SCH (12:22)
[2020-06-05] MEDS: FUROSEMIDE 20 MG in SYRINGE 0 ML IV SCH ×2 (12:27→17:26)
--- NOTE | 2020-06-05 17:10 | Hospitalist Progress Note ---
Date of Service June 05, 2020 Assessment & Plan (1) Pneumonia: Positive for COVID-19 Acute respiratory distress syndrome with severe hypoxic respiratory failure Received 1 unit of convalescent plasma on 05/27/2020 has been receiving IV dexamethasone since that time He is not a candidate for remdesivir due to renal failure Continued ceftriaxone and doxycycline while inpt, repeat CXR shows progression of lung opacity, switched ceft to cefepime and added flagyl, pt on 11L of O2 Continue to manage blood glucose Obtained consent for convalescent plasma (05/27/20), and provided pt with FDA EUA fact sheet for convalescent plasma Received transfusion of 1 unit (05/28 night), received 40 IV lasix prior to transfusion Oxygen requirement increased to 13-15L via oxymask, switched to high flow nasal cannula ICU/ pulmonary medicine consulted-appreciate input and recommendation Remains stable but requiring very high flow oxygen Not yet ready to be transferred to SCI until the oxygen requirement improves Repeat chest x-ray did show no improvement of the interstitial disease Still requiring high flow oxygen at 45% DD dimer was elevated at 1490. Negative dopplers Can't get CT PE d/t poor renal function VQ scan ordered - notified that the study can not be obtained on COVID pts Repeat LE Dopplers - negative Pt has been on heparin sq q8h for DVT ppx Switched to IV heparin given increased oxygen requirement, this was discussed including the risk of bleeding, with the pt who is in agreement -Discussed further with pulmonary medicine, seems that increased oxygen requirement is due to fluid overload, okay to stop IV heparin. Patient also had some increased bleeding from IV site. Switched back to subcu DVT Heparin prophylaxis. -Gave 60 IV Lasix with 2.5 metolazone in the morning, then 5 mg metolazone with 100 mg of IV Lasix (05/31/20). Per nephrology, 80 mg IV Lasix twice daily ordered Lasix doses will be adjusted as per nephrology Anemia Secondary to infection No acute blood loss identified Received 1 unit of PRBC HemoGlobin remains low at 7.3 We will monitor CBC-hemoglobin is 8.8 on 06/04/2020 Hemoglobin remains stable 8.9 as of 06/05/2020 (2) XOCHITL (acute kidney injury): Cr is 2.44>>2.7>>2.82, however then up to 3.47 >3.2 >3.4, now 4.5 and BUN 94 (06/02) XOCHITL on CKD d/t ATN in the setting of COVID 19infection [facility], patient has CKD and last lab work in 12/2019 showed Cr of 2.32 Monitor Cr and avoid nephrotoxins Body Masker evaluation appreciated - ATN, worsening Cr, concern for poss. need for dialysis, no need for extra IV fluids Replete hypokalemia Creatinine has been improving, 3.42 as of 06/03/2020 Worse as of today and the Lasix doses will be adjusted by taxi dancer Creatinine is slightly worse compared with yesterday to 4.11 from 4.07 (3) Diabetes mellitus type I: Continue insulin and lantus A1c is 8.3 Has had hypoglycemic episodes likely due to poor po intake Has been hyperglycemic likely with steroid therapy Continue to optimize glycemic control pharmacist on board (4) Hypothyroidism: Continue levothyroxine (5) Hypertension: now controlled Lisinopril on hold for now due to XOCHITL Continue amlodipine, hydralazine prn DVT prophylaxis Subcu heparin CODE STATUS Full Discussed with the crystal cutter and the patient can be moved to medical telemetry unit for continuation of care Admission and Anticipated Discharge Date Admission Date: May 22, 2020 Subjective The patient was seen and examined in ICU He has been feeling a lot better today and requiring less oxygen via nasal cannula to maintain saturation Denies any complaints 06/04/2020 The patient was seen and examined in telemetry unit He has been feeling a lot better but is still requiring high flow oxygen to maintain saturation Denies any significant symptoms 06/05/2020 The patient was seen and examined in telemetry unit He complains of occasional nausea but breathing remains stable He is still requiring about 45% FiO2 decreased from 60% as of yesterday Review of Systems Review of Systems: All systems reviewed and are unremarkable except as noted below Constitutional: + weakness Neurologic: + generalized weakness; no tremor(s), no headache(s) and no confusion Physical Exam Physical Exam: Lying in bed comfortably Constitutional: well developed and well nourished; no acute distress Eyes: PERRL, conjunctivae normal, anicteric sclerae ENMT: external ear and nose normal, oropharynx normal Neck: trachea midline, no thyromegaly Respiratory: no respiratory distress and no cough Auscultation: lungs clear to auscultation bilaterally Cardiovascular: Rate/Rhythm: regular rate and regular rhythm Heart Sounds: no murmur Gastrointestinal (Abdomen): Inspection/Auscultation: normal bowel sounds; abdomen not distended Percussion/Palpation: abdomen soft; abdomen nontender Musculoskeletal: No acute arthritis in any joint Psychiatric: A+Ox3, euthymic affect Results & Data Results & Data ([facility]) Vital Signs (Past 12 Hours) Vital Signs Temp Pulse Pulse Resp BP Pulse Ox 06/05/20 14:22 95 H 19 88 L 06/05/20 12:31 36.7 C 90 18 144/73 H 92 06/05/20 11:15 91 H 19 88 L 06/05/20 08:19 36.8 C 92 H 18 132/69 98 06/05/20 07:20 86 19 88 L Laboratory Results Short CBC 06/05/20 Range/Units 06:34 WBC 14.88 H (4.8-10.8) K/uL Hgb 8.9 L (14.0-18.0) g/dL Hct 27.0 L (42-52) % Plt Count 535 H (130-400) K/uL [facility] 06/05/20 06:34 Sodium 140 Potassium 4.1 Chloride 108 H Carbon Dioxide 23 BUN 94 H Creatinine 4.11 H Glucose 121 H Calcium 8.7 Medications Administered Current Inpatient Medications Acetaminophen (Acetaminophen 325 Mg Tab) 650 mg PO Q4H PRN PRN Reason: Pain or Fever Stop: 06/22/20 00:45 Last Admin: 06/03/20 08:01 Dose: 650 mg Documented by: Albuterol (Albuterol Hfa 8 Gm Inhaler) 2 puffs INH Q4R PRN PRN Reason: shortness of breath Stop: 06/28/20 16:37 Aspirin (Aspirin 81 Mg Ectab) 81 mg PO DAILY MARY Stop: 06/22/20 08:59 Last Admin: 06/05/20 09:02 Dose: 81 mg Documented by: Atorvastatin Calcium (Atorvastatin 40 Mg Tab) 80 mg PO HS MARY Stop: 06/22/20 20:59 Last Admin: 06/04/20 20:27 Dose: 80 mg Documented by: Dextrose (Dextrose 50% 50 Ml Syringe) 25 - 50 ml IV UD PRN; Protocol PRN Reason: Hypoglycemia Protocol Stop: 06/22/20 01:29 Last Admin: 05/29/20 21:38 Dose: 50 ml Documented by: Doxycycline Hyclate (Doxycycline Hyclate 100 Mg Cap) 100 mg PO BID MARY Stop: 06/05/20 23:59 Last Admin: 06/05/20 09:06 Dose: 100 mg Documented by: Fludrocortisone Acetate (Fludrocortisone Acetate 0.1 Mg Tab) 0.3 mg PO QAM MARY Stop: 07/03/20 08:59 Last Admin: 06/05/20 09:02 Dose: 0.3 mg Documented by: Fluoxetine HCl (Fluoxetine Hcl 20 Mg Cap) 40 mg PO DAILY MARY Stop: 06/22/20 08:59 Last Admin: 06/05/20 09:02 Dose: 40 mg Documented by: Gabapentin (Gabapentin 300 Mg Cap) 300 mg PO BID MARY Stop: 07/01/20 20:59 Last Admin: 06/05/20 09:02 Dose: 300 mg Documented by: Glucagon (Glucagon For Inj 1 Mg Vial) 1 mg SQ UD PRN; Protocol PRN Reason: Hypoglycemia Protocol Stop: 06/22/20 01:29 Glucose (Glucose 40% Gel 15 Gm Tube) 15 - 30 gm PO UD PRN; Protocol PRN Reason: Hypoglycemia Protocol Stop: 06/22/20 01:29 Glucose (Glucose 10 Tabs/Tube) 4 - 8 tabs PO UD PRN; Protocol PRN Reason: Hypoglycemia Protocol Stop: 06/22/20 01:29 Last Admin: 05/29/20 21:15 Dose: 4 tabs Documented by: Heparin Sodium (Beef Lung) (Heparin 10 Unit/Ml 5 Ml Flush) 5 ml FLUSH PRN PRN PRN Reason: Flush Stop: 07/03/20 22:44 Heparin Sodium (Porcine) (Heparin Sod 5,000 Unit/0.5 Ml Vial) 5,000 units SQ Q12 MARY Stop: 07/03/20 08:59 Last Admin: 06/05/20 10:14 Dose: 5,000 units Documented by: Hydralazine HCl (Hydralazine 10 Mg Tab) 10 mg PO Q6H PRN PRN Reason: Hypertension/ SBP >160 Stop: 07/01/20 18:44 Dexamethasone Sodium Phosphate (6 mg/ Syringe) 1.5 mls @ 1 mls/min IV DAILY MARY Stop: 06/10/20 08:59 Last Admin: 06/05/20 12:22 Dose: 1 mls/min Documented by: Furosemide 20 mg/ Syringe 2 mls @ 4 mls/min IV BID17 [facility] Stop: 07/05/20 08:59 Last Admin: 06/05/20 12:27 Dose: 4 mls/min Documented by: Cefepime HCl 2,000 mg/ Syringe 20 mls @ 5 mls/min IV Q24H [facility]; Protocol Stop: 06/07/20 11:03 Last Admin: 06/05/20 12:22 Dose: 5 mls/min Documented by: Insulin Aspart (Insulin Aspart 100 Units/Ml 3 Ml Pen) 0 units SC ACHS [facility]; Protocol Stop: 07/02/20 11:59 Last Admin: 06/05/20 17:05 Dose: Not Given Documented by: Insulin Glargine (Insulin Glargine Solostar 100 Units/Ml 3 Ml Pen) 30 units SC [facility]; Protocol Stop: 07/06/20 08:59 Levothyroxine Sodium (Levothyroxine Sodium 137 Mcg Tablet) 137 mcg PO DAILYBB [facility] Stop: 06/22/20 06:29 Last Admin: 06/05/20 06:13 Dose: 137 mcg Documented by: Miscellaneous (Carbohydrates For Hypoglycemia ) 15 - 30 gm PO UD PRN PRN Reason: Hypoglycemia Treatment Stop: 06/22/20 01:29 Last Admin: 05/29/20 17:10 Dose: 15 gm Documented by: Miscellaneous Information (Pharmacy Glycemic Mgmt Consult) 1 ea N/A UD PRN PRN Reason: Consult Stop: 06/23/20 15:06 Miscellaneous Information (Cefepime Consult Active) 1 ea N/A UD PRN PRN Reason: Consult Stop: 06/28/20 07:21 Multi-Ingredient Cream (Eucerin Cr 120 Gm Jar) 1 appln EXT BID PRN PRN Reason: Rash Stop: 06/28/20 11:00 Multivitamins (Multivitamin Tab) [facility] [place] [facility] [place]: 07/03/20 08:59 Last Admin: 06/05/20 09:03 Dose: 1 tab Documented by: Ondansetron HCl (Ondansetron Inj 2 Mg/Ml 2 Ml Vial) 4 mg IV Q6H PRN PRN Reason: Nausea Stop: 06/22/20 00:45 Last Admin: 06/01/20 08:25 Dose: 4 mg Documented by: Pantoprazole Sodium (Pantoprazole 40 Mg Tab) 40 mg PO QAM MARY Stop: 06/26/20 18:29 Last Admin: 06/05/20 09:01 Dose: 40 mg Documented by: Thiamine HCl (Thiamine Hcl 100 Mg Tab) 100 mg PO BID MARY Stop: 06/28/20 08:59 Last Admin: 06/05/20 09:03 Dose: 100 mg Documented by: Vitamin B Complex/Folic Acid (Nephrocaps) 1 cap PO DAILY MARY Stop: 06/22/20 08:59 Last Admin: 06/05/20 09:01 Dose: 1 cap Documented by: (1) Hypertension Hypertension type: essential hypertension Qualified Code(s): I10 - Essential (primary) hypertension
--- NOTE | 2020-06-05 18:17 | Nephrology Progress Note ---
Date of Service June 05, 2020 Assessment & Plan (1) XOCHITL (acute kidney injury): Per hospitalist, baseline creatinine 2.3 in 12/2019. No OP/prior to admission creatinine documented. Pt presented with creatinine 2.5 on 05/22; then since 05/27 in mid to low 3s. bumped to 4.4 AM 06/01, 4.5 on 06/02; on 06/03 down to 3.4, back up to 4.1 on 06/04 w/ resumption of lasix. on 06/01 lasix dosing was intensified (first had lasix 40 mg 05/27, then 60 mg 05/30; then two 80 mg doses as well as 100 mg 05/31). K ok this am. other chemistries ok; relative hypotension from 06/01-06/02 improved. did d/w pt he may well need dialysis; we reviewed what dialysis is and how fluid overload or build up of poisons might make him need it > he is open to dialysis if need arises -repeat uacm w/ 3+ dipstick protein, 1+ blood, consistent with even 2018 sediment; no infection or other inflammation -on bid hydralazine>>cont lasix IV to 20 mg IV bid17 -await 06/02 requested last OP labs from half-way -lasix stopped after pm dose 06/01 >> lungs are clear, no edema on exam, markedly worsening renal function > use lasix as above and extra doses PRN for now -lowered FR to 1.5L >>>cont lowered gabapentin dose d/t worsening XOCHITL >> from 600 mg qid to 300 mg bid as of 06/01 PM ; some potential for decreased mental status if dose not adjusted and pt is so far tolerating/no mention of pain -recommend renal u/s if clinically stable /feasible (none this admission) (2) COVID-19: on high flow 02 w/ near intubation / code purple for hypoxia 06/01 AM; ICU status downgraded 06/03; recurrent hypoxemic episodes corrected with self- proning >> he has been on 6L or more 02 continuously since 05/28 -also on one week course of doxy, cefepime (now more than midway through course) -no recent F >new L base consolidation? (3) Orthostatic hypotension: on standing /termite helper fludrocortisone prior to admission and now resumed including while completing dexamethasone Admission and Anticipated Discharge Date Admission Date: May 22, 2020 Subjective no pain seen on rounds this am - on 30L/min Fi02 with sats dropping to 80s and even 70s, feeling sob. no n/v, ongoing dry mouth; still tolerating mukherjee; no chest pain; no edema Review of Systems Review of Systems: All systems reviewed & are unremarkable except as noted in HPI & below Physical Exam Constitutional: well developed, well nourished, + acute distress (mild) and + thin Eyes: EOM intact bilaterally ENMT: Ears: no external ear abnormality Nose: no external nose abnormality Mouth: + dry oral mucous membranes Neck: no nuchal rigidity Respiratory: normal respiratory effort Auscultation: + crackles (some fine crackles BL) Cardiovascular: RRR, no murmur, no edema Rate/Rhythm: regular rate (on monitor) and regular rhythm (on monitor) Gastrointestinal (Abdomen): Inspection/Auscultation: abdomen normal to inspection and normal bowel sounds Percussion/Palpation: abdomen soft; abdomen nontender Musculoskeletal: Extremities: strength 5/5 throughout Skin: no rashes, warm and dry cyanotic lips Psychiatric: Orientation: alert and oriented x 3 Eye Contact: good eye contact Affect: + anxious affect and + flat affect Genitourinary: mukherjee w/ ample light yellow urine Results & Data ([facility]) Vital Signs (Past 12 Hours) Vital Signs Temp Pulse Pulse Resp BP Pulse Ox 06/05/20 17:30 36.9 C 89 20 142/85 H 91 06/05/20 17:13 83 20 90 06/05/20 14:22 95 H 19 88 L 06/05/20 12:31 36.7 C 90 18 144/73 H 92 06/05/20 11:15 91 H 19 88 L 06/05/20 08:19 36.8 C 92 H 18 132/69 98 06/05/20 07:20 86 19 88 L Laboratory Results 06/05/20 06:34 06/05/20 06:34 Diagnostic Findings cxr today 1. Persistent bilateral interstitial pulmonary opacities 2. Interval removal of the right internal jugular central venous catheter 3. 12 mm nodular opacity at the left lung base
[2020-06-05] MEDS: ATORVASTATIN 40 MG TAB PO SCH (22:19)
[2020-06-06] MEDS: LEVOTHYROXINE SODIUM 137 MCG TABLET PO SCH (05:33)
[2020-06-06 07:00] LABS: Basophils # (auto) 0.01 K/uL (0-0.2); Basophils % (auto) 0.1 %; Eosinophils # (auto) 0.03 K/uL (0-0.5); Eosinophils % (auto) 0.2 %; Hematocrit (blood only) 25.3 % (42-52); Hemoglobin 8.5 g/dL (14.0-18.0); Immature Granulocytes # (auto) 0.12 K/uL (0.00-0.02); Immature Granulocytes % (auto) 0.9 %; Lymphocytes # (auto) 1.42 K/uL (1.2-3.4); Lymphocytes % (auto) 11.2 %; Mean Corpuscular Hemoglobin 27.8 pg (25-34); Mean Corpuscular Hgb Conc 33.6 g/dL (32-36); Mean Corpuscular Volume 82.7 fL (80-100); Mean Platelet Volume 10.7 fL (7.4-10.4); Monocytes # (auto) 0.41 K/uL (0.11-0.59); Monocytes % (auto) 3.2 %; Neutrophils # (auto) 10.73 K/uL (1.4-6.5); Neutrophils % (auto) 84.4 %; Platelet Count 483 K/uL (130-400); RDW Coefficient of Variation 16.7 % (11.5-14.5); RDW Standard Deviation 50.3 fL (36.4-46.3); Red Blood Count 3.06 M/uL (4.7-6.1); White Blood Count 12.72 K/uL (4.8-10.8)
[2020-06-06 07:31] LABS: Calcium 8.1 mg/dl (8.5-10.1); Creatinine Clr Calc Pharmacy 23.7 ml/min; Est GFR (African American) 19.5; Est GFR (Non-African American) 16.8; Magnesium 2.2 mg/dl (1.8-2.4); Phosphorus 3.9 mg/dl (2.5-4.9); Potassium 3.9 mmol/L (3.5-5.1)
[2020-06-06 07:43] LABS: Beta-Hydroxybutyrate 1.42 mg/dl (0.2-2.81)
[2020-06-06] MEDS ORDERED: NovoLIN-N (NPH) PER UNIT CHARGE SQ ONE (08:00)
[2020-06-06] MEDS: FUROSEMIDE 20 MG in SYRINGE 0 ML IV SCH ×2 (08:55→17:10)
[2020-06-06] MEDS: THIAMINE HCL 100 MG TAB PO SCH ×2 (08:55→20:34)
[2020-06-06] MEDS: dexAMETHasone 6 MG in SYRINGE 0 ML IV SCH (08:55)
[2020-06-06] MEDS: NEPHROCAPS PO SCH (08:56)
[2020-06-06] MEDS: FLUDROCORTISONE ACETATE 0.1 MG TAB PO SCH (08:56)
[2020-06-06] MEDS: HEPARIN SOD 5,000 UNIT/0.5 ML VIAL SQ SCH ×2 (08:56→20:33)
[2020-06-06] MEDS: FLUoxetine HCL 20 MG CAP PO SCH (08:56)
[2020-06-06] MEDS: ASPIRIN 81 MG ECTAB PO SCH (08:56)
[2020-06-06] MEDS: PANTOprazole 40 MG TAB PO SCH (08:57)
[2020-06-06] MEDS: GABAPENTIN 300 MG CAP PO SCH ×2 (08:57→20:33)
[2020-06-06] MEDS: MULTIVITAMIN TAB PO SCH (08:57)
[2020-06-06] MEDS: INSULIN ASPART 100 UNITS/ML 3 ML PEN SC SCH ×4 (08:58→20:35)
[2020-06-06] MEDS: INSULIN GLARGINE SOLOSTAR 100 UNITS/ML 3 ML PEN SC SCH (08:59)
--- NOTE | 2020-06-06 10:32 | Pharmacy Report ---
Pharmacy Glycemic Short Note 2 - Date of Service June 06, 2020 - Glycemic Short BSG Results (Last 24 hours): 06/05/20 06/05/20 06/05/20 12:11 12:11 13:10 Glucose POC Glucose 52 L* 57 L* 111 H 06/05/20 06/05/20 06/06/20 16:54 21:01 06:03 Glucose 304 H* POC Glucose 113 H 243 H 06/06/20 07:38 Glucose POC Glucose 337 H* Outpatient Anti-diabetic Regimen: * Lantus 15 units SC qAM, 8 units SC qPM * A1c = 8.3 % on 05/23/20 ASSESSMENT: 06/06: * Gilbert received 36 units of insulin yesterday (this is significantly less than previous days) * 20 units of basal * 16 units of bolus * BSGs: 138, 57, 113, 243 mg/dL * remains on dexamethasone 6 mg IV daily * Fasting BSG this AM was 337 mg/dL. I suspect this is due to basal deficiency. Patient received 30-32 units of basal insulin 06/02 through 06/04 but only 20 units yesterday (~35% reduction). Patient will resume dose of 30 units of basal today. I will add a small dose of NPH this morning only to help cover dexamethasone while patient is overcoming basal deficiency. * Post prandial BSGs were on the lower end yesterday with the exception of bedtime BSG of 243 mg/dL. Patient consumed 15 grams of carbs with dinner that were not covered with Novolog, therefore this elevation is to be expected. No changes to Novolog. 06/05: * Gilbert received 65 units of insulin total yesterday * 32 units basal + 33 units bolus * BSGs were [id number] mg/dL * BSGs trending upwards throughout the day * Fasting BSG this AM was controlled at 138 mg/dL * Lunchtime BSG was 52 mg/dL with a recheck of 57 mg/dL * Patient was not symptomatic and did not require treatment. BSG increased with lunch meal. * Each of the last two days, patient's AM and lunch BSGs have been low or borderline low which may be secondary to BID Lantus * Will attempt front-loading all of his basal insulin in the AM when he get the dexamethasone 06/04: * Patient's fasting and lunchtime BSG well controlled today after more heavily weighting AM Levemir. Will continue to monitor for further adjustments. The patient appears to be very labile and BSG trends have been difficult to identify thus far. Patient continues on dexamethasone and is tolerating a t. 06/03: * Patient did trend down nicely yesterday with addition of levemir. Fasting BSG this morning was also well controlled. However, lunchtime BSG was significantly elevated, but AM novolog dose may not have been adequate. Patient remains on steroids and is tolerating a diet. Novolog was slightly tightened for dinnertime, however I am hesitant to make too many changes as patient was been labile in the past. Will assess a full 24 hours on current regimen and assess need for further changes tomorrow. May consider transition to NPH. PLAN FOR INPATIENT GLYCEMIC CONTROL: * Basal insulin * Lantus 30 units SQ qAM * NPH 10 units SQ this AM x 1 * Bolus insulin - no change * NovoLog per scale ACHS or Q6hrs while NPO * Goal Range: Low 120 mg/dL - High 150 mg/dL * Correction Factor: 20 mg/dL/unit * Nutritional / Prandial insulin per carb ratio of 1 unit per 5 grams CHO consumed Plan for discharge: Dependent on whether patient will be discharged on steroids
[2020-06-06] MEDS: CEFEPIME 2,000 MG in SYRINGE 0 ML IV SCH (11:22)
--- NOTE | 2020-06-06 13:41 | Hospitalist Progress Note ---
Date of Service June 06, 2020 Assessment & Plan (1) Pneumonia: Positive for COVID-19 Acute respiratory distress syndrome with severe hypoxic respiratory failure Received 1 unit of convalescent plasma on 05/27/2020 has been receiving IV dexamethasone since that time He is not a candidate for remdesivir due to renal failure Continued ceftriaxone and doxycycline while inpt, repeat CXR shows progression of lung opacity, switched ceft to cefepime and added flagyl, pt on 11L of O2 Continue to manage blood glucose Obtained consent for convalescent plasma (05/27/20), and provided pt with FDA EUA fact sheet for convalescent plasma Received transfusion of 1 unit (05/28 night), received 40 IV lasix prior to transfusion Oxygen requirement increased to 13-15L via oxymask, switched to high flow nasal cannula ICU/ pulmonary medicine consulted-appreciate input and recommendation Remains stable but requiring very high flow oxygen Not yet ready to be transferred to [facility] until the oxygen requirement improves Repeat chest x-ray did show no improvement of the interstitial disease Condition has been worsening and he still requires high flow oxygen up to 80 to maintain saturation We will continue current management Discussed with the long term doctor and discussed with the patient about poor prognosis of his condition If his respiratory status goes down even with current aggressive treatment he does not want to be intubated to maintain oxygen level and life He has a clear understanding about his current medical condition and agreed that he does not want to be resuscitated in case of cardiac and respiratory arrest His CODE STATUS is changed to DNR/DNI DD dimer was elevated at 1490. Negative dopplers Can't get CT PE d/t poor renal function VQ scan ordered - notified that the study can not be obtained on COVID pts Repeat LE Dopplers - negative Pt has been on heparin sq q8h for DVT ppx Switched to IV heparin given increased oxygen requirement, this was discussed including the risk of bleeding, with the pt who is in agreement -Discussed further with pulmonary medicine, seems that increased oxygen requirement is due to fluid overload, okay to stop IV heparin. Patient also had some increased bleeding from IV site. Switched back to subcu DVT Heparin prophylaxis. -Gave 60 IV Lasix with 2.5 metolazone in the morning, then 5 mg metolazone with 100 mg of IV Lasix (05/31/20). Per nephrology, 80 mg IV Lasix twice daily ordered Lasix doses will be adjusted as per nephrology Anemia Secondary to infection No acute blood loss identified Received 1 unit of PRBC HemoGlobin remains low at 7.3 We will monitor CBC-hemoglobin is 8.8 on 06/04/2020 Hemoglobin remains stable 8.9 as of 06/05/2020 (2) XOCHITL (acute kidney injury): Cr is 2.44>>2.7>>2.82, however then up to 3.47 >3.2 >3.4, now 4.5 and BUN 94 (06/02) XOCHITL on CKD d/t ATN in the setting of COVID 19infection Per physician at [facility], patient has CKD and last lab work in 12/2019 showed Cr of 2.32 Monitor Cr and avoid nephrotoxins Photographer Apprentice evaluation appreciated - ATN, worsening Cr, concern for poss. need for dialysis, no need for extra IV fluids Replete hypokalemia Creatinine has been improving, 3.42 as of 06/03/2020 Worse as of today and the Lasix doses will be adjusted by manganese wheeler Creatinine is slightly worse compared with yesterday to 4.11 from 4.07 Creatinine is a little bit better today We will continue Lasix as advised by her manganese wheeler (3) Diabetes mellitus type I: Continue insulin and lantus A1c is 8.3 Has had hypoglycemic episodes likely due to poor po intake Has been hyperglycemic likely with steroid therapy Continue to optimize glycemic control pharmacist on board (4) Hypothyroidism: Continue levothyroxine (5) Hypertension: now controlled Lisinopril on hold for now due to XOCHITL Continue amlodipine, hydralazine prn DVT prophylaxis Subcu heparin CODE STATUS DNR/DNI Discussed with the screwdown operator and the patient can be moved to medical telemetry unit for continuation of care Discussed with the screwdown operator, physician at the [facility] and the patient in detail. Is a very poor prognosis The patient was put into DNI/DNR Admission and Anticipated Discharge Date Admission Date: May 22, 2020 Subjective The patient was seen and examined in ICU He has been feeling a lot better today and requiring less oxygen via nasal cannula to maintain saturation Denies any complaints 06/04/2020 The patient was seen and examined in telemetry unit He has been feeling a lot better but is still requiring high flow oxygen to maintain saturation Denies any significant symptoms 06/05/2020 The patient was seen and examined in telemetry unit He complains of occasional nausea but breathing remains stable He is still requiring about 45% FiO2 decreased from 60% as of yesterday 06/06/2020 The patient was seen and examined in telemetry unit He remains short of breath and requiring high flow oxygen to maintain saturation sometimes up to 80 He is generally weak and lethargic Denies any significant pain, no fever and/or chills, no nausea and or vomiting Review of Systems Review of Systems: All systems reviewed and are unremarkable except as noted below Constitutional: + weakness Respiratory: + dyspnea Neurologic: + generalized weakness; no tremor(s), no headache(s) and no confusion Physical Exam Physical Exam: Lying in bed with moderate shortness of breath at rest Constitutional: well developed, well nourished, + acute distress (Due to shortness of breath) and + ill appearing Eyes: PERRL, conjunctivae normal, anicteric sclerae ENMT: external ear and nose normal, oropharynx normal Neck: trachea midline, no thyromegaly Respiratory: + respiratory distress, + labored breathing, + uses accessory muscles and + cough Auscultation: + diminished lung sounds, + crackles and + wheezes Cardiovascular: Rate/Rhythm: regular rate and regular rhythm Heart Sounds: no murmur Gastrointestinal (Abdomen): Inspection/Auscultation: normal bowel sounds; abdomen not distended Percussion/Palpation: abdomen soft; abdomen nontender Musculoskeletal: No acute arthritis in any joint Neurologic: Alert, awake and oriented x3. Psychiatric: A+Ox3, euthymic affect Results & Data Results & Data ([facility]) Vital Signs (Past 12 Hours) Vital Signs Temp Pulse Pulse Resp BP Pulse Ox 06/06/20 11:19 36.9 C 81 25 H 98/68 L 98 06/06/20 11:01 86 22 82 L 06/06/20 07:56 36.7 C 81 20 109/61 87 L 06/06/20 07:30 72 06/06/20 07:24 76 23 88 L 06/06/20 04:17 36.4 C L 82 22 111/64 90 06/06/20 02:18 79 20 88 L Laboratory Results Short CBC 06/06/20 Range/Units 06:03 WBC 12.72 H (4.8-10.8) K/uL Hgb 8.5 L (14.0-18.0) g/dL Hct 25.3 L (42-52) % Plt Count 483 H (130-400) K/uL BMP 06/06/20 06:03 Sodium 138 Potassium 3.9 Chloride 105 Carbon Dioxide 23 BUN 109 H Creatinine 3.78 H D Glucose 304 H* Calcium 8.1 L Medications Administered Current Inpatient Medications Acetaminophen (Acetaminophen 325 Mg Tab) 650 mg PO Q4H PRN PRN Reason: Pain or Fever Stop: 06/22/20 00:45 Last Admin: 06/03/20 08:01 Dose: 650 mg Documented by: Albuterol (Albuterol Hfa 8 Gm Inhaler) 2 puffs INH Q4R PRN PRN Reason: shortness of breath Stop: 06/28/20 16:37 Aspirin (Aspirin 81 Mg Ectab) 81 mg PO DAILY MARY Stop: 06/22/20 08:59 Last Admin: 06/06/20 08:56 Dose: 81 mg Documented by: Atorvastatin Calcium (Atorvastatin 40 Mg Tab) 80 mg PO HS MARY Stop: 06/22/20 20:59 Last Admin: 06/05/20 22:19 Dose: 80 mg Documented by: Dextrose (Dextrose 50% 50 Ml Syringe) 25 - 50 ml IV UD PRN; Protocol PRN Reason: Hypoglycemia Protocol Stop: 06/22/20 01:29 Last Admin: 05/29/20 21:38 Dose: 50 ml Documented by: Fludrocortisone Acetate (Fludrocortisone Acetate 0.1 Mg Tab) 0.3 mg PO QAM [facility]ARY Stop: 07/03/20 08:59 Last Admin: 06/06/20 08:56 Dose: 0.3 mg Documented by: Fluoxetine HCl (Fluoxetine Hcl 20 Mg Cap) 40 mg PO DAILY [facility]ARY Stop: 06/22/20 08:59 Last Admin: 06/06/20 08:56 Dose: 40 mg Documented by: Gabapentin (Gabapentin 300 Mg Cap) 300 mg PO BID MARY Stop: 07/01/20 20:59 Last Admin: 06/06/20 08:57 Dose: 300 mg Documented by: Glucagon (Glucagon For Inj 1 Mg Vial) 1 mg SQ UD PRN; Protocol PRN Reason: Hypoglycemia Protocol Stop: 06/22/20 01:29 Glucose (Glucose 40% Gel 15 Gm Tube) 15 - 30 gm PO UD PRN; Protocol PRN Reason: Hypoglycemia Protocol Stop: 06/22/20 01:29 Glucose (Glucose 10 Tabs/Tube) 4 - 8 tabs PO UD PRN; Protocol PRN Reason: Hypoglycemia Protocol Stop: 06/22/20 01:29 Last Admin: 05/29/20 21:15 Dose: 4 tabs Documented by: Heparin Sodium (Beef Lung) (Heparin 10 Unit/Ml 5 Ml Flush) 5 ml FLUSH PRN PRN PRN Reason: Flush Stop: 07/03/20 22:44 Heparin Sodium (Porcine) (Heparin Sod 5,000 Unit/0.5 Ml Vial) 5,000 units SQ Q12 MARY Stop: 07/03/20 08:59 Last Admin: 06/06/20 08:56 Dose: 5,000 units Documented by: Hydralazine HCl (Hydralazine 10 Mg Tab) 10 mg PO Q6H PRN PRN Reason: Hypertension/ SBP >160 Stop: 07/01/20 18:44 Dexamethasone Sodium Phosphate (6 mg/ Syringe) 1.5 mls @ 1 mls/min IV DAILY [facility] Stop: 06/10/20 08:59 Last Admin: 06/06/20 08:55 Dose: 1 mls/min Documented by: Furosemide 20 mg/ Syringe 2 mls @ 4 mls/min IV [id number] [facility] Stop: 07/05/20 08:59 Last Admin: 06/06/20 08:55 Dose: 4 mls/min Documented by: Cefepime HCl 2,000 mg/ Syringe 20 mls @ 5 mls/min IV Q24H [facility]; Protocol Stop: 06/07/20 11:03 Last Admin: 06/06/20 11:22 Dose: 5 mls/min Documented by: Insulin Aspart (Insulin Aspart 100 Units/Ml 3 Ml Pen) 0 units SC ACHS [facility]; Protocol Stop: 07/02/20 11:59 Last Admin: 06/06/20 12:04 Dose: 13 units Documented by: Insulin Glargine (Insulin Glargine Solostar 100 Units/Ml 3 Ml Pen) [facility]; Protocol Stop: 07/06/20 08:59 Last Admin: 06/06/20 08:59 Dose: 30 units Documented by: Levothyroxine Sodium (Levothyroxine Sodium 137 Mcg Tablet) 137 mcg PO DAILYBB [facility] Stop: 06/22/20 06:29 Last Admin: 06/06/20 05:33 Dose: 137 mcg Documented by: Miscellaneous (Carbohydrates For Hypoglycemia ) 15 - 30 gm PO UD PRN PRN Reason: Hypoglycemia Treatment Stop: 06/22/20 01:29 Last Admin: 05/29/20 17:10 Dose: 15 gm Documented by: Miscellaneous Information (Pharmacy Glycemic Mgmt Consult) 1 ea N/A UD PRN PRN Reason: Consult Stop: 06/23/20 15:06 Miscellaneous Information (Cefepime Consult Active) 1 ea N/A UD PRN PRN Reason: Consult Stop: 06/28/20 07:21 Multi-Ingredient Cream (Eucerin Cr 120 Gm Jar) 1 appln EXT BID PRN PRN Reason: Rash Stop: 06/28/20 11:00 Multivitamins (Multivitamin Tab) 1 tab PO QAM [facility] Stop: 07/03/20 08:59 Last Admin: 06/06/20 08:57 Dose: 1 tab Documented by: Ondansetron HCl (Ondansetron Inj 2 Mg/Ml 2 Ml Vial) 4 mg IV Q6H PRN PRN Reason: Nausea Stop: 06/22/20 00:45 Last Admin: 06/01/20 08:25 Dose: 4 mg Documented by: Pantoprazole Sodium (Pantoprazole 40 Mg Tab) 40 mg PO QAM [facility] Stop: 06/26/20 18:29 Last Admin: 06/06/20 08:57 Dose: 40 mg Documented by: Thiamine HCl (Thiamine Hcl 100 Mg Tab) 100 mg PO BID [facility] Stop: 06/28/20 08:59 Last Admin: 06/06/20 08:55 Dose: 100 mg Documented by: Vitamin B Complex/Folic Acid (Nephrocaps) 1 cap PO DAILY [facility] Stop: 06/22/20 08:59 Last Admin: 06/06/20 08:56 Dose: 1 cap Documented by: (1) Hypertension Hypertension type: essential hypertension Qualified Code(s): I10 - Essential (primary) hypertension
[2020-06-06] MEDS: ATORVASTATIN 40 MG TAB PO SCH (20:33)
[2020-06-07] MEDS: LEVOTHYROXINE SODIUM 137 MCG TABLET PO SCH (06:22)
[2020-06-07] MEDS: INSULIN ASPART 100 UNITS/ML 3 ML PEN SC SCH ×4 (09:08→21:25)
[2020-06-07] MEDS: ASPIRIN 81 MG ECTAB PO SCH (09:09)
[2020-06-07] MEDS: dexAMETHasone 6 MG in SYRINGE 0 ML IV SCH (09:09)
[2020-06-07] MEDS: FLUDROCORTISONE ACETATE 0.1 MG TAB PO SCH (09:09)
[2020-06-07] MEDS: HEPARIN SOD 5,000 UNIT/0.5 ML VIAL SQ SCH ×2 (09:10→21:24)
[2020-06-07] MEDS: INSULIN GLARGINE SOLOSTAR 100 UNITS/ML 3 ML PEN SC SCH (09:10)
[2020-06-07] MEDS: FUROSEMIDE 20 MG in SYRINGE 0 ML IV SCH ×2 (09:11→17:49)
[2020-06-07] MEDS: NEPHROCAPS PO SCH (09:13)
[2020-06-07] MEDS: GABAPENTIN 300 MG CAP PO SCH ×2 (09:13→21:25)
[2020-06-07] MEDS: PANTOprazole 40 MG TAB PO SCH (09:13)
[2020-06-07] MEDS: FLUoxetine HCL 20 MG CAP PO SCH (09:14)
[2020-06-07] MEDS: THIAMINE HCL 100 MG TAB PO SCH ×2 (09:14→21:25)
[2020-06-07] MEDS: MULTIVITAMIN TAB PO SCH (09:15)
[2020-06-07 09:43] LABS: Basophils # (auto) 0.01 K/uL (0-0.2); Basophils % (auto) 0.1 %; Eosinophils # (auto) 0.15 K/uL (0-0.5); Hematocrit (blood only) 25.7 % (42-52); Hemoglobin 8.6 g/dL (14.0-18.0); Immature Granulocytes # (auto) 0.15 K/uL (0.00-0.02); Lymphocytes # (auto) 1.28 K/uL (1.2-3.4); Lymphocytes % (auto) 8.7 %; Mean Corpuscular Hemoglobin 27.7 pg (25-34); Mean Corpuscular Hgb Conc 33.5 g/dL (32-36); Mean Corpuscular Volume 82.9 fL (80-100); Mean Platelet Volume 10.6 fL (7.4-10.4); Monocytes # (auto) 0.54 K/uL (0.11-0.59); Monocytes % (auto) 3.7 %; Neutrophils # (auto) 12.57 K/uL (1.4-6.5); Neutrophils % (auto) 85.5 %; Platelet Count 508 K/uL (130-400); RDW Coefficient of Variation 16.6 % (11.5-14.5); RDW Standard Deviation 49.8 fL (36.4-46.3)
[2020-06-07 10:03] LABS: BUN Creatinine Ratio 29.4 (10-20); Calcium 8.4 mg/dl (8.5-10.1); Creatinine Clr Calc Pharmacy 24.5 ml/min; Est GFR (African American) 20.4; Est GFR (Non-African American) 17.6; Magnesium 2.2 mg/dl (1.8-2.4); Potassium 3.6 mmol/L (3.5-5.1)
[2020-06-07 10:04] LABS: Phosphorus 3.9 mg/dl (2.5-4.9)
[2020-06-07 11:01] LABS: Schistocytes Occasional
[2020-06-07] MEDS: CEFEPIME 2,000 MG in SYRINGE 0 ML IV SCH (12:16)
[2020-06-07] MEDS: ONDANSETRON INJ 2 MG/ML 2 ML VIAL IV PRN (12:37)
--- NOTE | 2020-06-07 14:18 | Hospitalist Progress Note ---
Date of Service June 07, 2020 Assessment & Plan (1) Pneumonia: Positive for COVID-19 Acute respiratory distress syndrome with severe hypoxic respiratory failure Received 1 unit of convalescent plasma on 05/27/2020 has been receiving IV dexamethasone since that time He is not a candidate for remdesivir due to renal failure Continued ceftriaxone and doxycycline while inpt, repeat CXR shows progression of lung opacity, switched ceft to cefepime and added flagyl, pt on 11L of O2 Continue to manage blood glucose Obtained consent for convalescent plasma (05/27/20), and provided pt with FDA EUA fact sheet for convalescent plasma Received transfusion of 1 unit (05/28 night), received 40 IV lasix prior to transfusion Oxygen requirement increased to 13-15L via oxymask, switched to high flow nasal cannula ICU/ pulmonary medicine consulted-appreciate input and recommendation Remains stable but requiring very high flow oxygen Not yet ready to be transferred to [facility] until the oxygen requirement improves Repeat chest x-ray did show no improvement of the interstitial disease Condition has been worsening and he still requires high flow oxygen up to 80 to maintain saturation Condition has been deteriorating and is requiring FiO2 of 90 to maintain saturation Remains very weak and lethargic Discussed with the intermediate doctor and discussed with the patient about poor prognosis of his condition If his respiratory status goes down even with current aggressive treatment he does not want to be intubated to maintain oxygen level and life He has a clear understanding about his current medical condition and agreed that he does not want to be resuscitated in case of cardiac and respiratory arrest His CODE STATUS is changed to DNR/DNI DD dimer was elevated at 1490. Negative dopplers Can't get CT PE d/t poor renal function VQ scan ordered - notified that the study can not be obtained on COVID pts Repeat LE Dopplers - negative Pt has been on heparin sq q8h for DVT ppx Switched to IV heparin given increased oxygen requirement, this was discussed including the risk of bleeding, with the pt who is in agreement -Discussed further with pulmonary medicine, seems that increased oxygen requirement is due to fluid overload, okay to stop IV heparin. Patient also had some increased bleeding from IV site. Switched back to subcu DVT Heparin prophylaxis. -Gave 60 IV Lasix with 2.5 metolazone in the morning, then 5 mg metolazone with 100 mg of IV Lasix (05/31/20). Per nephrology, 80 mg IV Lasix twice daily ordered Lasix doses will be adjusted as per nephrology Anemia Secondary to infection No acute blood loss identified Received 1 unit of PRBC HemoGlobin remains low at 7.3 We will monitor CBC-hemoglobin is 8.8 on 06/04/2020 Hemoglobin remains stable 8.9 as of 06/05/2020-remains stable thereafter (2) XOCHITL (acute kidney injury): Cr is 2.44>>2.7>>2.82, however then up to 3.47 >3.2 >3.4, now 4.5 and BUN 94 (06/02) XOCHITL on CKD d/t ATN in the setting of COVID 19infection [facility] at [facility], patient has CKD and last lab work in 12/2019 showed Cr of 2.32 Monitor Cr and avoid nephrotoxins Oven Builder evaluation appreciated - ATN, worsening Cr, concern for poss. need for dialysis, no need for extra IV fluids Replete hypokalemia Creatinine has been improving, 3.42 as of 06/03/2020 Worse as of today and the Lasix doses will be adjusted by watch caser Creatinine is slightly worse compared with yesterday to 4.11 from 4.07 Creatinine is a little bit better today 06/07/2020 We will continue Lasix as advised by her watch caser (3) Diabetes mellitus type I: Continue insulin and lantus A1c is 8.3 Has had hypoglycemic episodes likely due to poor po intake Has been hyperglycemic likely with steroid therapy Continue to optimize glycemic control pharmacist on board (4) Hypothyroidism: Continue levothyroxine (5) Hypertension: now controlled Lisinopril on hold for now due to XOCHITL Continue amlodipine, hydralazine prn DVT prophylaxis Subcu heparin CODE STATUS DNR/DNI Discussed with the mental health program specialist and the patient can be moved to medical telemetry unit for continuation of care Discussed with the mental health program specialist, physician at the [facility] and the patient in detail. Is a very poor prognosis The patient was put into DNI/DNR Admission and Anticipated Discharge Date Admission Date: May 22, 2020 Subjective The patient was seen and examined in ICU He has been feeling a lot better today and requiring less oxygen via nasal cannula to maintain saturation Denies any complaints 06/04/2020 The patient was seen and examined in telemetry unit He has been feeling a lot better but is still requiring high flow oxygen to maintain saturation Denies any significant symptoms 06/05/2020 The patient was seen and examined in telemetry unit He complains of occasional nausea but breathing remains stable He is still requiring about 45% FiO2 decreased from 60% as of yesterday 06/06/2020 The patient was seen and examined in telemetry unit He remains short of breath and requiring high flow oxygen to maintain saturation sometimes up to 80 He is generally weak and lethargic Denies any significant pain, no fever and/or chills, no nausea and or vomiting 06/07/2020 The patient was seen and examined in telemetry/Covid unit He has been feeling worse compared with yesterday and has been requiring more oxygen to maintain saturation Denies any significant symptoms other than weakness and shortness of breath Review of Systems Review of Systems: All systems reviewed and are unremarkable except as noted below Constitutional: + weakness Respiratory: + dyspnea Neurologic: + generalized weakness; no tremor(s), no headache(s) and no confusion Physical Exam Physical Exam: Lying in bed with moderate shortness of breath at rest Constitutional: well developed, well nourished, + acute distress (Due to shortness of breath) and + ill appearing Eyes: PERRL, conjunctivae normal, anicteric sclerae ENMT: external ear and nose normal, oropharynx normal Neck: trachea midline, no thyromegaly Respiratory: + respiratory distress, + labored breathing, + uses accessory mus cles and + cough Auscultation: + diminished lung sounds, + crackles and + wheezes Cardiovascular: Rate/Rhythm: regular rate and regular rhythm Heart Sounds: no murmur Gastrointestinal (Abdomen): Inspection/Auscultation: normal bowel sounds; abdomen not distended Percussion/Palpation: abdomen soft; abdomen nontender Musculoskeletal: No acute arthritis in any joint Psychiatric: A+Ox3, euthymic affect Results & Data Results & Data ([facility]) Vital Signs (Past 12 Hours) Vital Signs Temp Pulse Pulse Resp BP BP Pulse Ox 06/07/20 11:55 81 22 100 06/07/20 11:44 37.0 C 83 22 124/74 92 06/07/20 08:04 82 24 92 06/07/20 07:56 36.9 C 73 20 124/69 97 06/07/20 03:24 36.6 C 74 24 114/71 97 06/07/20 02:54 71 16 92 Laboratory Results Short CBC 06/07/20 Range/Units 09:14 WBC 14.70 H (4.8-10.8) K/uL Hgb 8.6 L (14.0-18.0) g/dL Hct 25.7 L (42-52) % Plt Count 508 H (130-400) K/uL BMP 06/07/20 09:14 Sodium 139 Potassium 3.6 Chloride 104 Carbon Dioxide 26 BUN 107 H Creatinine 3.64 H Glucose 174 H Calcium 8.4 L Medications Administered Current Inpatient Medications Acetaminophen (Acetaminophen 325 Mg Tab) 650 mg PO Q4H PRN PRN Reason: Pain or Fever Stop: 06/22/20 00:45 Last Admin: 06/03/20 08:01 Dose: 650 mg Documented by: Albuterol (Albuterol Hfa 8 Gm Inhaler) 2 puffs INH Q4R PRN PRN Reason: shortness of breath Stop: 06/28/20 16:37 Aspirin (Aspirin 81 Mg Ectab) 81 mg PO DAILY [facility]ARY Stop: 06/22/20 08:59 Last Admin: 06/07/20 09:09 Dose: 81 mg Documented by: Atorvastatin Calcium (Atorvastatin 40 Mg Tab) 80 mg PO HS [facility] Stop: 06/22/20 20:59 Last Admin: 06/06/20 20:33 Dose: 80 mg Documented by: Dextrose (Dextrose 50% 50 Ml Syringe) 25 - 50 ml IV UD PRN; Protocol PRN Reason: Hypoglycemia Protocol Stop: 06/22/20 01:29 Last Admin: 05/29/20 21:38 Dose: 50 ml Documented by: Fludrocortisone Acetate (Fludrocortisone Acetate 0.1 Mg Tab) 0.3 mg PO QAM [facility] Stop: 07/03/20 08:59 Last Admin: 06/07/20 09:09 Dose: 0.3 mg Documented by: Fluoxetine HCl (Fluoxetine Hcl 20 Mg Cap) 40 mg PO DAILY [facility] Stop: 06/22/20 08:59 Last Admin: 06/07/20 09:14 Dose: 40 mg Documented by: Gabapentin (Gabapentin 300 Mg Cap) 300 mg PO BID [facility] Stop: 07/01/20 20:59 Last Admin: 06/07/20 09:13 Dose: 300 mg Documented by: Glucagon (Glucagon For Inj 1 Mg Vial) 1 mg SQ UD PRN; Protocol PRN Reason: Hypoglycemia Protocol Stop: 06/22/20 01:29 Glucose (Glucose 40% Gel 15 Gm Tube) 15 - 30 gm PO UD PRN; Protocol PRN Reason: Hypoglycemia Protocol Stop: 06/22/20 01:29 Glucose (Glucose 10 Tabs/Tube) 4 - 8 tabs PO UD PRN; Protocol PRN Reason: Hypoglycemia Protocol Stop: 06/22/20 01:29 Last Admin: 05/29/20 21:15 Dose: 4 tabs Documented by: Heparin Sodium (Beef Lung) (Heparin 10 Unit/Ml 5 Ml Flush) 5 ml FLUSH PRN PRN PRN Reason: Flush Stop: 07/03/20 22:44 Heparin Sodium (Porcine) (Heparin Sod 5,000 Unit/0.5 Ml Vial) 5,000 units SQ Q12 [facility] Stop: 07/03/20 08:59 Last Admin: 06/07/20 09:10 Dose: 5,000 units Documented by: Hydralazine HCl (Hydralazine 10 Mg Tab) 10 mg PO Q6H PRN PRN Reason: Hypertension/ SBP >160 Stop: 07/01/20 18:44 Dexamethasone Sodium Phosphate (6 mg/ Syringe) 1.5 mls @ 1 mls/min IV DAILY [facility] Stop: 06/10/20 08:59 Last Admin: 06/07/20 09:09 Dose: 1 mls/min Documented by: Furosemide 20 mg/ Syringe 2 mls @ 4 mls/min IV [id number] [facility] Stop: 07/05/20 08:59 Last Admin: 06/07/20 09:11 Dose: 4 mls/min Documented by: Insulin Aspart (Insulin Aspart 100 Units/Ml 3 Ml Pen) 0 units SC [facility]; Protocol Stop: 07/02/20 11:59 Last Admin: 06/07/20 12:38 Dose: 5 units Documented by: Insulin Glargine (Insulin Glargine Solostar 100 Units/Ml 3 Ml Pen) 30 units SC [facility]; Protocol Stop: 07/06/20 08:59 Last Admin: 06/07/20 09:10 Dose: 30 units Documented by: Levothyroxine Sodium (Levothyroxine Sodium 137 Mcg Tablet) 137 mcg PO DAILYBB [facility] Stop: 06/22/20 06:29 Last Admin: 06/07/20 06:22 Dose: 137 mcg Documented by: Miscellaneous (Carbohydrates For Hypoglycemia ) 15 - 30 gm PO UD PRN PRN Reason: Hypoglycemia Treatment Stop: 06/22/20 01:29 Last Admin: 05/29/20 17:10 Dose: 15 gm Documented by: Miscellaneous Information (Pharmacy Glycemic Mgmt Consult) 1 ea N/A UD PRN PRN Reason: Consult Stop: 06/23/20 15:06 Multi-Ingredient Cream (Eucerin Cr 120 Gm Jar) 1 appln EXT BID PRN PRN Reason: Rash Stop: 06/28/20 11:00 Multivitamins (Multivitamin Tab) 1 tab PO QAM [facility] Stop: 07/03/20 08:59 Last Admin: 06/07/20 09:15 Dose: 1 tab Documented by: Ondansetron HCl (Ondansetron Inj 2 Mg/Ml 2 Ml Vial) 4 mg IV Q6H PRN PRN Reason: Nausea Stop: 06/22/20 00:45 Last Admin: 06/07/20 12:37 Dose: 4 mg Documented by: Pantoprazole Sodium (Pantoprazole 40 Mg Tab) 40 mg PO QAM [facility] Stop: 06/26/20 18:29 Last Admin: 06/07/20 09:13 Dose: 40 mg Documented by: Thiamine HCl (Thiamine Hcl 100 Mg Tab) 100 mg PO BID [facility] Stop: 06/28/20 08:59 Last Admin: 06/07/20 09:14 Dose: 100 mg Documented by: Vitamin B Complex/Folic Acid (Nephrocaps) 1 cap PO DAILY [facility] Stop: 06/22/20 08:59 Last Admin: 06/07/20 09:13 Dose: 1 cap Documented by: (1) Hypertension Hypertension type: essential hypertension Qualified Code(s): I10 - Essential (primary) hypertension
[2020-06-07] MEDS: ATORVASTATIN 40 MG TAB PO SCH (21:25)
[2020-06-08] MEDS: LEVOTHYROXINE SODIUM 137 MCG TABLET PO SCH (06:04)
[2020-06-08] MEDS: dexAMETHasone 6 MG in SYRINGE 0 ML IV SCH (07:41)
[2020-06-08] MEDS: ONDANSETRON INJ 2 MG/ML 2 ML VIAL IV PRN (07:48)
[2020-06-08] MEDS: FUROSEMIDE 20 MG in SYRINGE 0 ML IV SCH ×2 (07:49→17:21)
[2020-06-08] MEDS: INSULIN ASPART 100 UNITS/ML 3 ML PEN SC SCH ×4 (08:00→21:55)
[2020-06-08 08:32] LABS: Basophils # (auto) 0.01 K/uL (0-0.2); Basophils % (auto) 0.1 %; Eosinophils # (auto) 0.17 K/uL (0-0.5); Eosinophils % (auto) 1.1 %; Hematocrit (blood only) 26.5 % (42-52); Hemoglobin 8.7 g/dL (14.0-18.0); Immature Granulocytes # (auto) 0.22 K/uL (0.00-0.02); Immature Granulocytes % (auto) 1.4 %; Lymphocytes # (auto) 1.57 K/uL (1.2-3.4); Lymphocytes % (auto) 9.9 %; Mean Corpuscular Hemoglobin 27.4 pg (25-34); Mean Corpuscular Hgb Conc 32.8 g/dL (32-36); Mean Corpuscular Volume 83.6 fL (80-100); Mean Platelet Volume 10.9 fL (7.4-10.4); Monocytes # (auto) 0.39 K/uL (0.11-0.59); Monocytes % (auto) 2.5 %; Neutrophils # (auto) 13.42 K/uL (1.4-6.5); Platelet Count 478 K/uL (130-400); RDW Coefficient of Variation 16.6 % (11.5-14.5); RDW Standard Deviation 50.1 fL (36.4-46.3); Red Blood Count 3.17 M/uL (4.7-6.1); White Blood Count 15.78 K/uL (4.8-10.8)
[2020-06-08 09:38] LABS: BUN Creatinine Ratio 29.4 (10-20); Calcium 8.2 mg/dl (8.5-10.1); Creatinine Clr Calc Pharmacy 25.7 ml/min; Est GFR (African American) 21.2; Est GFR (Non-African American) 18.3; Magnesium 2.1 mg/dl (1.8-2.4); Potassium 3.3 mmol/L (3.5-5.1)
[2020-06-08] MEDS: THIAMINE HCL 100 MG TAB PO SCH ×2 (09:44→22:19)
[2020-06-08] MEDS: HEPARIN SOD 5,000 UNIT/0.5 ML VIAL SQ SCH ×2 (09:44→22:18)
[2020-06-08] MEDS: PANTOprazole 40 MG TAB PO SCH (09:45)
[2020-06-08] MEDS: FLUoxetine HCL 20 MG CAP PO SCH (09:45)
[2020-06-08] MEDS: MULTIVITAMIN TAB PO SCH (09:45)
[2020-06-08] MEDS: GABAPENTIN 300 MG CAP PO SCH ×2 (09:46→22:19)
[2020-06-08] MEDS: INSULIN GLARGINE SOLOSTAR 100 UNITS/ML 3 ML PEN SC SCH (09:46)
[2020-06-08] MEDS: FLUDROCORTISONE ACETATE 0.1 MG TAB PO SCH (09:46)
[2020-06-08] MEDS: ASPIRIN 81 MG ECTAB PO SCH (09:47)
[2020-06-08] MEDS: NEPHROCAPS PO SCH (09:47)
--- NOTE | 2020-06-08 11:09 | Pharmacy Report ---
Pharmacy Glycemic Short Note 2 - Date of Service June 08, 2020 - Glycemic Short BSG Results (Last 24 hours): 06/07/20 06/07/20 06/07/20 11:26 16:23 20:57 Glucose POC Glucose 157 H 258 H 271 H 06/08/20 06/08/20 07:29 07:49 Glucose 112 H POC Glucose 126 H Outpatient Anti-diabetic Regimen: * Lantus 15 units SC qAM, 8 units SC qPM * A1c = 8.3 % on 05/23/20 ASSESSMENT: 06/07 * Dexamethasone 6 mg IV daily continues * Labile BSG's noted - hypoglycemia noted 06/05 and severe hyperglycemia 06/06. Yesterday, BSG's improved - ranged 157-271 mg/dL * AM fasting BSG in goal range - will continue Lantus * Post-prandial elevations yesterday noted, but none >300 mg/dL and hypoglycemia occurred on 06/05 with current CHO ratio. Therefore will not tighten further. 06/06: * Gilbert received 36 units of insulin yesterday (this is significantly less than previous days) * 20 units of basal * 16 units of bolus * BSGs: 138, 57, 113, 243 mg/dL * remains on dexamethasone 6 mg IV daily * Fasting BSG this AM was 337 mg/dL. I suspect this is due to basal deficiency. Patient received 30-32 units of basal insulin 06/02 through 06/04 but only 20 units yesterday (~35% reduction). Patient will resume dose of 30 units of basal today. I will add a small dose of NPH this morning only to help cover dexamethasone while patient is overcoming basal deficiency. * Post prandial BSGs were on the lower end yesterday with the exception of bedtime BSG of 243 mg/dL. Patient consumed 15 grams of carbs with dinner that were not covered with Novolog, therefore this elevation is to be expected. No changes to Novolog. 06/05: * Gilbert received 65 units of insulin total yesterday * 32 units basal + 33 units bolus * BSGs were [phone] mg/dL * BSGs trending upwards throughout the day * Fasting BSG this AM was controlled at 138 mg/dL * Lunchtime BSG was 52 mg/dL with a recheck of 57 mg/dL * Patient was not symptomatic and did not require treatment. BSG increased with lunch meal. * Each of the last two days, patient's AM and lunch BSGs have been low or borderline low which may be secondary to BID Lantus * Will attempt front-loading all of his basal insulin in the AM when he get the dexamethasone 06/04: * Patient's fasting and lunchtime BSG well controlled today after more heavily weighting AM Levemir. Will continue to monitor for further adjustments. The patient appears to be very labile and BSG trends have been difficult to identify thus far. Patient continues on dexamethasone and is tolerating a diet. 06/03: * Patient did trend down nicely yesterday with addition of levemir. Fasting BSG this morning was also well controlled. However, lunchtime BSG was significantly elevated, but AM novolog dose may not have been adequate. Patient remains on steroids and is tolerating a diet. Novolog was slightly tightened for dinnertime, however I am hesitant to make too many changes as patient was been labile in the past. Will assess a full 24 hours on current regimen and assess need for further changes tomorrow. May consider transition to NPH. PLAN FOR INPATIENT GLYCEMIC CONTROL: * Basal insulin - no change * Lantus 30 units SQ qAM * Bolus insulin - no change * NovoLog per scale ACHS or Q6hrs while NPO * Goal Range: Low 120 mg/dL - High 150 mg/dL * Correction Factor: 20 mg/dL/unit * Nutritional / Prandial insulin per carb ratio of 1 unit per 5 grams CHO consumed Plan for discharge: Dependent on whether patient will be discharged on steroids
--- NOTE | 2020-06-08 12:00 | Progress Notes ---
DATE: 06/08/2020 NEPHROLOGY PROGRESS NOTE SUBJECTIVE: Overnight, no improvement noted in the patient. He is still requiring very high oxygen 100% at 40 liters per minute on BiPAP. The patient is getting weaker and really not able to give me much history. OBJECTIVE: VITAL SIGNS: Blood pressure 125/71, pulse rate 79, temperature 37 degrees Celsius, oxygen saturation 89% on 100% FiO2 40 liters per minute. CHEST: Bilateral decreased breath sounds and occasional crackles. CARDIOVASCULAR: S1, S2 regular. ABDOMEN: Soft, nontender. EXTREMITIES: Show trace edema. Urine output was about 2150 mL. LABORATORY TEST: WBC count is rising again and is up to 15.78, hemoglobin 8.7, platelet count 478. Sodium 138, potassium 3.3, BUN 103, creatinine 3.5. Chest x-ray done 3 days ago shows persistent bilateral interstitial pulmonary opacities. ASSESSMENT AND PLAN: A 55-year-old male with multiple underlying medical problems including diabetes and chronic kidney disease with baseline creatinine in the low 2s, admitted with COVID-19 pneumonia and has [id number] renal failure. 1. Acute renal failure: This is secondary to acute tubular necrosis. His baseline creatinine was 2.3 as of 12/2019. At this time, creatinine is higher than baseline, but is stable and is not rising. He does have good urine output with current dose of Lasix. He does not appear to be in volume depletion or volume overload. I would continue with the Lasix as is being done. 2. COVID-19 pneumonia: Unfortunately, patient's condition seems to be declining. He is on very high oxygen need at this time.
[2020-06-08] MEDS: POTASSIUM CHLORIDE CRTAB 20 MEQ TABCR PO SCH ×2 (12:30→22:18)
--- NOTE | 2020-06-08 15:25 | Hospitalist Progress Note ---
Date of Service June 08, 2020 Assessment & Plan (1) Pneumonia: Positive for COVID-19 Acute respiratory distress syndrome with severe hypoxic respiratory failure Received 1 unit of convalescent plasma on 05/27/2020 has been receiving IV dexamethasone since that time He is not a candidate for remdesivir due to renal failure Continued ceftriaxone and doxycycline while inpt, repeat CXR shows progression of lung opacity, switched ceft to cefepime and added flagyl, pt on 11L of O2 Continue to manage blood glucose Obtained consent for convalescent plasma (05/27/20), and provided pt with FDA EUA fact sheet for convalescent plasma Received transfusion of 1 unit (05/28 night), received 40 IV lasix prior to transfusion Oxygen requirement increased to 13-15L via oxymask, switched to high flow nasal cannula ICU/ pulmonary medicine consulted-appreciate input and recommendation Remains stable but requiring very high flow oxygen Not yet ready to be transferred to [facility] until the oxygen requirement improves Repeat chest x-ray did show no improvement of the interstitial disease Condition has been worsening and he still requires high flow oxygen up to 80 to maintain saturation Condition has been deteriorating and is requiring FiO2 of 90 to maintain saturation Remains critical but stable Prognosis is extremely poor Discussed with the residential doctor and discussed with the patient about poor prognosis of his condition If his respiratory status goes down even with current aggressive treatment he does not want to be intubated to maintain oxygen level and life He has a clear understanding about his current medical condition and agreed that he does not want to be resuscitated in case of cardiac and respiratory arrest His CODE STATUS is changed to DNR/DNI Continue supportive care DD dimer was elevated at 1490. Negative dopplers Can't get CT PE d/t poor renal function VQ scan ordered - notified that the study can not be obtained on COVID pts Repeat LE Dopplers - negative Pt has been on heparin sq q8h for DVT ppx Switched to IV heparin given increased oxygen requirement, this was discussed including the risk of bleeding, with the pt who is in agreement -Discussed further with pulmonary medicine, seems that increased oxygen requirement is due to fluid overload, okay to stop IV heparin. Patient also had some increased bleeding from IV site. Switched back to subcu DVT Heparin prophylaxis. -Gave 60 IV Lasix with 2.5 metolazone in the morning, then 5 mg metolazone with 100 mg of IV Lasix (05/31/20). Per nephrology, 80 mg IV Lasix twice daily ordered Lasix doses will be adjusted as per nephrology Anemia Secondary to infection No acute blood loss identified Received 1 unit of PRBC HemoGlobin remains low at 7.3 We will monitor CBC-hemoglobin is 8.8 on 06/04/2020 Hemoglobin remains stable 8.9 as of 06/05/2020-remains stable thereafter (2) XOCHITL (acute kidney injury): Cr is 2.44>>2.7>>2.82, however then up to 3.47 >3.2 >3.4, now 4.5 and BUN 94 (06/02) XOCHITL on CKD d/t ATN in the setting of COVID 19infection [facility], patient has CKD and last lab work in 12/2019 showed Cr of 2.32 Monitor Cr and avoid nephrotoxins Director Of Surgery evaluation appreciated - ATN, worsening Cr, concern for poss. need for dialysis, no need for extra IV fluids Replete hypokalemia Creatinine has been improving, 3.42 as of 06/03/2020 Worse as of today and the Lasix doses will be adjusted by gambling box person Creatinine is slightly worse compared with yesterday to 4.11 from 4.07 Creatinine is a little bit better today 06/07/2020 We will continue Lasix as advised by her gambling box person Creatinine is high but stable at 3.5 (3) Diabetes mellitus type I: Continue insulin and lantus A1c is 8.3 Has had hypoglycemic episodes likely due to poor po intake Has been hyperglycemic likely with steroid therapy Continue to optimize glycemic control pharmacist on board (4) Hypothyroidism: Continue levothyroxine (5) Hypertension: now controlled Lisinopril on hold for now due to XOCHITL Continue amlodipine, hydralazine prn DVT prophylaxis Subcu heparin CODE STATUS DNR/DNI Discussed with the upset welding machine operator and the patient can be moved to medical telemetry unit for continuation of care Discussed with the upset welding machine operator, physician at the [facility] and the patient in detail. Is a very poor prognosis The patient was put into DNI/DNR Admission and Anticipated Discharge Date Admission Date: May 22, 2020 Subjective The patient was seen and examined in ICU He has been feeling a lot better today and requiring less oxygen via nasal cannula to maintain saturation Denies any complaints 06/04/2020 The patient was seen and examined in telemetry unit He has been feeling a lot better but is still requiring high flow oxygen to maintain saturation Denies any significant symptoms 06/05/2020 The patient was seen and examined in telemetry unit He complains of occasional nausea but breathing remains stable He is still requiring about 45% FiO2 decreased from 60% as of yesterday 06/06/2020 The patient was seen and examined in telemetry unit He remains short of breath and requiring high flow oxygen to maintain saturation sometimes up to 80 He is generally weak and lethargic Denies any significant pain, no fever and/or chills, no nausea and or vomiting 06/07/2020 The patient was seen and examined in telemetry/Covid unit He has been feeling worse compared with yesterday and has been requiring more oxygen to maintain saturation Denies any significant symptoms other than weakness and shortness of breath 06/08/2020 The patient was seen and examined in telemetry/Covid unit He remains stable but critical Complains of shortness of breath at rest and requiring high flow oxygen with FiO2 of 40-80 to maintain saturation Denies any other symptoms Review of Systems Review of Systems: All systems reviewed and are unremarkable except as noted below Constitutional: + weakness Respiratory: + dyspnea Neurologic: + generalized weakness; no tremor(s), no headache(s) and no confusion Physical Exam Physical Exam: Lying in bed with moderate shortness of breath at rest Constitutional: well developed, well nourished, + acute distress (Due to shortness of breath) and + ill appearing Eyes: PERRL, conjunctivae normal, anicteric sclerae ENMT: external ear and nose normal, oropharynx normal Neck: trachea midline, no thyromegaly Respiratory: + respiratory distress, + labored breathing, + uses accessory muscles and + cough Auscultation: + diminished lung sounds, + crackles and + wheezes Cardiovascular: Rate/Rhythm: regular rate and regular rhythm Heart Sounds: no murmur Gastrointestinal (Abdomen): Inspection/Auscultation: normal bowel sounds; abdomen not distended Percussion/Palpation: abdomen soft; abdomen nontender Musculoskeletal: No acute arthritis in any joint Neurologic: Alert, awake and oriented x3. Generally very weak and lethargic Psychiatric: A+Ox3, euthymic affect Results & Data Results & Data ([facility]) Vital Signs (Past 12 Hours) Vital Signs Temp Pulse Pulse Resp BP BP Pulse Ox 06/08/20 11:23 37.0 C 84 23 122/73 98 06/08/20 10:38 84 24 97 06/08/20 07:52 79 18 89 L 06/08/20 07:45 73 06/08/20 07:30 37.0 C 80 31 H 125/71 84 L 06/08/20 05:24 75 26 H 89 L 06/08/20 04:12 36.6 C 85 22 107/61 90 Laboratory Results Short CBC 06/08/20 Range/Units 07:49 WBC 15.78 H (4.8-10.8) K/uL Hgb 8.7 L (14.0-18.0) g/dL Hct 26.5 L (42-52) % Plt Count 478 H (130-400) K/uL BMP 06/08/20 07:49 Sodium 138 Potassium 3.3 L Chloride 106 Carbon Dioxide 23 BUN 103 H Creatinine 3.52 H Glucose 112 H Calcium 8.2 L Medications Administered Current Inpatient Medications Acetaminophen (Acetaminophen 325 Mg Tab) 650 mg PO Q4H PRN PRN Reason: Pain or Fever Stop: 06/22/20 00:45 Last Admin: 06/03/20 08:01 Dose: 650 mg Documented by: Albuterol (Albuterol Hfa 8 Gm Inhaler) 2 puffs INH Q4R PRN PRN Reason: shortness of breath Stop: 06/28/20 16:37 Aspirin (Aspirin 81 Mg Ectab) 81 mg PO DAILY MARY Stop: 06/22/20 08:59 Last Admin: 06/08/20 09:47 Dose: 81 mg Documented by: Atorvastatin Calcium (Atorvastatin 40 Mg Tab) 80 mg PO HS MARY Stop: 06/22/20 20:59 Last Admin: 06/07/20 21:25 Dose: 80 mg Documented by: Dextrose (Dextrose 50% 50 Ml Syringe) 25 - 50 ml IV UD PRN; Protocol PRN Reason: Hypoglycemia Protocol Stop: 06/22/20 01:29 Last Admin: 05/29/20 21:38 Dose: 50 ml Documented by: Fludrocortisone Acetate (Fludrocortisone Acetate 0.1 Mg Tab) 0.3 mg PO QAM MARY Stop: 07/03/20 08:59 Last Admin: 06/08/20 09:46 Dose: 0.3 mg Documented by: Fluoxetine HCl (Fluoxetine Hcl 20 Mg Cap) 40 mg PO DAILY MARY Stop: 06/22/20 08:59 Last Admin: 06/08/20 09:45 Dose: 40 mg Documented by: Gabapentin (Gabapentin 300 Mg Cap) 300 mg PO BID MARY Stop: 07/01/20 20:59 Last Admin: 06/08/20 09:46 Dose: 300 mg Documented by: Glucagon (Glucagon For Inj 1 Mg Vial) 1 mg SQ UD PRN; Protocol PRN Reason: Hypoglycemia Protocol Stop: 06/22/20 01:29 Glucose (Glucose 40% Gel 15 Gm Tube) 15 - 30 gm PO UD PRN; Protocol PRN Reason: Hypoglycemia Protocol Stop: 06/22/20 01:29 Glucose (Glucose 10 Tabs/Tube) 4 - 8 tabs PO UD PRN; Protocol PRN Reason: Hypoglycemia Protocol Stop: 06/22/20 01:29 Last Admin: 05/29/20 21:15 Dose: 4 tabs Documented by: Heparin Sodium (Beef Lung) (Heparin 10 Unit/Ml 5 Ml Flush) 5 ml FLUSH PRN PRN PRN Reason: Flush Stop: 07/03/20 22:44 Heparin Sodium (Porcine) (Heparin Sod 5,000 Unit/0.5 Ml Vial) 5,000 units SQ Q12 MARY Stop: 07/03/20 08:59 Last Admin: 06/08/20 09:44 Dose: 5,000 units Documented by: Hydralazine HCl (Hydralazine 10 Mg Tab) 10 mg PO Q6H PRN PRN Reason: Hypertension/ SBP >160 Stop: 07/01/20 18:44 Dexamethasone Sodium Phosphate (6 mg/ Syringe) 1.5 mls @ 1 mls/min IV DAILY MARY Stop: 06/10/20 08:59 Last Admin: 06/08/20 07:41 Dose: 1 mls/min Documented by: Furosemide 20 mg/ Syringe 2 mls @ 4 mls/min IV [id number] MARY Stop: 07/05/20 08:59 Last Admin: 06/08/20 07:49 Dose: 4 mls/min Documented by: Insulin Aspart (Insulin Aspart 100 Units/Ml 3 Ml Pen) 0 units SC ACHS MARY; Protocol Stop: 07/02/20 11:59 Last Admin: 06/08/20 12:13 Dose: 9 units Documented by: Insulin Glargine (Insulin Glargine Solostar 100 Units/Ml 3 Ml Pen) [facility] [place] Protocol Stop: 07/06/20 08:59 Last Admin: 06/08/20 09:46 Dose: 30 units Documented by: Levothyroxine Sodium (Levothyroxine Sodium 137 Mcg Tablet) 137 mcg PO DAILYBB [facility] Stop: 06/22/20 06:29 Last Admin: 06/08/20 06:04 Dose: 137 mcg Documented by: Miscellaneous (Carbohydrates For Hypoglycemia ) 15 - 30 gm PO UD PRN PRN Reason: Hypoglycemia Treatment Stop: 06/22/20 01:29 Last Admin: 05/29/20 17:10 Dose: 15 gm Documented by: Miscellaneous Information (Pharmacy Glycemic Mgmt Consult) 1 ea N/A UD PRN PRN Reason: Consult Stop: 06/23/20 15:06 Multi-Ingredient Cream (Eucerin Cr 120 Gm Jar) 1 appln EXT BID PRN PRN Reason: Rash Stop: 06/28/20 11:00 Multivitamins (Multivitamin Tab) 1 tab PO [facility] Stop: 07/03/20 08:59 Last Admin: 06/08/20 09:45 Dose: 1 tab Documented by: Ondansetron HCl (Ondansetron Inj 2 Mg/Ml 2 Ml Vial) 4 mg IV Q6H PRN PRN Reason: Nausea Stop: 06/22/20 00:45 Last Admin: 06/08/20 07:48 Dose: 4 mg Documented by: Pantoprazole Sodium (Pantoprazole 40 Mg Tab) 40 mg PO [facility] Stop: 06/26/20 18:29 Last Admin: 06/08/20 09:45 Dose: 40 mg Documented by: Potassium Chloride (Potassium Chloride Crtab 20 Meq Tabcr) 20 meq PO BID [facility] Stop: 07/08/20 10:29 Last Admin: 06/08/20 12:30 Dose: 20 meq Documented by: Thiamine HCl (Thiamine Hcl 100 Mg Tab) 100 mg PO BID [facility] Stop: 06/28/20 08:59 Last Admin: 06/08/20 09:44 Dose: 100 mg Documented by: Vitamin B Complex/Folic Acid (Nephrocaps) 1 cap PO DAILY [facility] Stop: 06/22/20 08:59 Last Admin: 06/08/20 09:47 Dose: 1 cap Documented by: (1) Hypertension Hypertension type: essential hypertension Qualified Code(s): I10 - Essential (primary) hypertension
[2020-06-08] MEDS: ATORVASTATIN 40 MG TAB PO SCH (22:19)
[2020-06-09] MEDS: LEVOTHYROXINE SODIUM 137 MCG TABLET PO SCH (06:14)
[2020-06-09] MEDS: ASPIRIN 81 MG ECTAB PO SCH (07:43)
[2020-06-09] MEDS: POTASSIUM CHLORIDE CRTAB 20 MEQ TABCR PO SCH ×2 (07:43→21:47)
[2020-06-09] MEDS: FLUDROCORTISONE ACETATE 0.1 MG TAB PO SCH (07:44)
[2020-06-09] MEDS: MULTIVITAMIN TAB PO SCH (07:44)
[2020-06-09] MEDS: NEPHROCAPS PO SCH (07:44)
[2020-06-09] MEDS: GABAPENTIN 300 MG CAP PO SCH ×2 (07:45→21:47)
[2020-06-09] MEDS: PANTOprazole 40 MG TAB PO SCH (07:46)
[2020-06-09] MEDS: FLUoxetine HCL 20 MG CAP PO SCH (07:46)
[2020-06-09] MEDS: THIAMINE HCL 100 MG TAB PO SCH ×2 (07:46→21:47)
[2020-06-09] MEDS: HEPARIN SOD 5,000 UNIT/0.5 ML VIAL SQ SCH ×2 (07:49→21:48)
[2020-06-09] MEDS: INSULIN GLARGINE SOLOSTAR 100 UNITS/ML 3 ML PEN SC SCH (07:50)
[2020-06-09] MEDS ORDERED: POTASSIUM CHLORIDE CRTAB 20 MEQ TABCR PO STA (07:51)
[2020-06-09] MEDS: dexAMETHasone 6 MG in SYRINGE 0 ML IV SCH (07:58)
[2020-06-09] MEDS: FUROSEMIDE 20 MG in SYRINGE 0 ML IV SCH ×2 (07:58→17:01)
[2020-06-09] MEDS: ACETAMINOPHEN 325 MG TAB PO PRN (07:58)
[2020-06-09] MEDS: INSULIN ASPART 100 UNITS/ML 3 ML PEN SC SCH ×4 (08:48→21:49)
[2020-06-09] MEDS: ALBUTEROL HFA 8 GM INHALER INH PRN (11:23)
--- NOTE | 2020-06-09 12:10 | Pharmacy Report ---
Pharmacy Glycemic Short Note 2 - Date of Service June 09, 2020 - Glycemic Short BSG Results (Last 24 hours): 06/08/20 06/08/20 06/09/20 16:32 20:26 07:37 POC Glucose 146 H 136 H 125 H 06/09/20 11:19 POC Glucose 118 H Outpatient Anti-diabetic Regimen: * Lantus 15 units SC qAM, 8 units SC qPM * A1c = 8.3 % on 05/23/20 ASSESSMENT: 06/09 * Dexamethasone scheduled to stop after dose this AM. Therefore will adjust regimen starting tomorrow AM. Will reduce Lantus and significantly loosen Novolog parameters. Further loosening may eventually be required as effects of dexamethasone gradually wear off 06/07 * Dexamethasone 6 mg IV daily continues * Labile BSG's noted - hypoglycemia noted 06/05 and severe hyperglycemia 06/06. Yesterday, BSG's improved - ranged 157-271 mg/dL * AM fasting BSG in goal range - will continue Lantus * Post-prandial elevations yesterday noted, but none >300 mg/dL and hypoglycemia occurred on 06/05 with current CHO ratio. Therefore will not tighten further. 06/06: * Gilbert received 36 units of insulin yesterday (this is significantly less than previous days) * 20 units of basal * 16 units of bolus * BSGs: 138, 57, 113, 243 mg/dL * remains on dexamethasone 6 mg IV daily * Fasting BSG this AM was 337 mg/dL. I suspect this is due to basal deficiency. Patient received 30-32 units of basal insulin 06/02 through 06/04 but only 20 units yesterday (~35% reduction). Patient will resume dose of 30 units of basal today. I will add a small dose of NPH this morning only to help cover dexamethasone while patient is overcoming basal deficiency. * Post prandial BSGs were on the lower end yesterday with the exception of bedtime BSG of 243 mg/dL. Patient consumed 15 grams of carbs with dinner that were not covered with Novolog, therefore this elevation is to be expected. No changes to Novolog. 06/05: * Gilbert received 65 units of insulin total yesterday * 32 units basal + 33 units bolus * BSGs were [phone] mg/dL * BSGs trending upwards throughout the day * Fasting BSG this AM was controlled at 138 mg/dL * Lunchtime BSG was 52 mg/dL with a recheck of 57 mg/dL * Patient was not symptomatic and did not require treatment. BSG increased with lunch meal. * Each of the last two days, patient's AM and lunch BSGs have been low or borderline low which may be secondary to BID Lantus * Will attempt front-loading all of his basal insulin in the AM when he get the dexamethasone 06/04: * Patient's fasting and lunchtime BSG well controlled today after more heavily weighting AM Levemir. Will continue to monitor for further adjustments. The patient appears to be very labile and BSG trends have been difficult to identify thus far. Patient continues on dexamethasone and is tolerating a diet. 06/03: * Patient did trend down nicely yesterday with addition of levemir. Fasting BSG this morning was also well controlled. However, lunchtime BSG was significantly elevated, but AM novolog dose may not have been adequate. Patient remains on steroids and is tolerating a diet. Novolog was slightly tightened for dinnertime, however I am hesitant to make too many changes as patient was been labile in the past. Will assess a full 24 hours on current regimen and assess need for further changes tomorrow. May consider transition to NPH. PLAN FOR INPATIENT GLYCEMIC CONTROL: * Basal insulin - decrease starting tomorrow * Lantus 22 units SQ qAM * Bolus insulin - loosen starting tomorrow * NovoLog per scale ACHS or Q6hrs while NPO * Goal Range: Low 120 mg/dL - High 150 mg/dL * Correction Factor: 25 mg/dL/unit * Nutritional / Prandial insulin per carb ratio of 1 unit per 8 grams CHO consumed Plan for discharge: Dependent on whether patient will be discharged on steroids
--- NOTE | 2020-06-09 16:47 | Hospitalist Progress Note ---
Date of Service June 09, 2020 Assessment & Plan (1) Pneumonia: Positive for COVID-19 Acute respiratory distress syndrome with severe hypoxic respiratory failure Received 1 unit of convalescent plasma on 05/27/2020 has been receiving IV dexamethasone since that time He is not a candidate for remdesivir due to renal failure Continued ceftriaxone and doxycycline while inpt, repeat CXR shows progression of lung opacity, switched ceft to cefepime and added flagyl, pt on 11L of O2 Continue to manage blood glucose Obtained consent for convalescent plasma (05/27/20), and provided pt with FDA EUA fact sheet for convalescent plasma Received transfusion of 1 unit (05/28 night), received 40 IV lasix prior to transfusion Oxygen requirement increased to 13-15L via oxymask, switched to high flow nasal cannula ICU/ pulmonary medicine consulted-appreciate input and recommendation Remains stable but requiring very high flow oxygen Not yet ready to be [facility] until the oxygen requirement improves Repeat chest x-ray did show no improvement of the interstitial disease Condition has been worsening and he still requires high flow oxygen up to 80 to maintain saturation Condition has been deteriorating and is requiring FiO2 of 90 to maintain saturation Remains critical and getting progressively worse with requirement of more FiO2 to maintain saturation Prognosis is extremely poor Discussed with the [place] [facility] doctor and discussed with the patient about poor prognosis of his condition If his respiratory status goes down even with current aggressive treatment he does not want to be intubated to maintain oxygen level and life He has a clear understanding about his current medical condition and agreed that he does not want to be resuscitated in case of cardiac and respiratory arrest His CODE STATUS is changed to DNR/DNI Continue supportive care DD dimer was elevated at 1490. Negative dopplers Can't get CT PE d/t poor renal function VQ scan ordered - notified that the study can not be obtained on COVID pts Repeat LE Dopplers - negative Pt has been on heparin sq q8h for DVT ppx Switched to IV heparin given increased oxygen requirement, this was discussed including the risk of bleeding, with the pt who is in agreement -Discussed further with pulmonary medicine, seems that increased oxygen requirement is due to fluid overload, okay to stop IV heparin. Patient also had some increased bleeding from IV site. Switched back to subcu DVT Heparin prophylaxis. -Gave 60 IV Lasix with 2.5 metolazone in the morning, then 5 mg metolazone with 100 mg of IV Lasix (05/31/20). Per nephrology, 80 mg IV Lasix twice daily ordered Lasix doses will be adjusted as per nephrology Anemia Secondary to infection No acute blood loss identified Received 1 unit of PRBC HemoGlobin remains low at 7.3 We will monitor CBC-hemoglobin is 8.8 on 06/04/2020 Hemoglobin remains stable 8.9 as of 06/05/2020-remains stable thereafter (2) XOCHITL (acute kidney injury): Cr is 2.44>>2.7>>2.82, however then up to 3.47 >3.2 >3.4, now 4.5 and BUN 94 (06/02) XOCHITL on CKD d/t ATN in the setting of COVID [facility]infection [facility], patient has CKD and last lab work in 12/2019 showed Cr of 2.32 Monitor Cr and avoid nephrotoxins Janitorial Supervisor evaluation appreciated - ATN, worsening Cr, concern for poss. need for dialysis, no need for extra IV fluids Replete hypokalemia Creatinine has been improving, 3.42 as of 06/03/2020 Worse as of today and the Lasix doses will be adjusted by director of compliance Creatinine is slightly worse compared with yesterday to 4.11 from 4.07 Creatinine is a little bit better today 06/07/2020 We will continue Lasix as advised by her director of compliance Creatinine is high but stable at 3.52 (3) Diabetes mellitus type I: Continue insulin and lantus A1c is 8.3 Has had hypoglycemic episodes likely due to poor po intake Has been hyperglycemic likely with steroid therapy Continue to optimize glycemic control pharmacist on board (4) Hypothyroidism: Continue levothyroxine (5) Hypertension: now controlled Lisinopril on hold for now due to XOCHITL Continue amlodipine, hydralazine prn DVT prophylaxis Subcu heparin CODE STATUS DNR/DNI Discussed with the parks and recreation worker and the patient can be moved to medical telemetry unit for continuation of care Discussed with the parks and recreation worker, physician at the [facility] and the patient in detail. Is a very poor prognosis The patient was put into DNI/DNR Admission and Anticipated Discharge Date Admission Date: May 22, 2020 Subjective The patient was seen and examined in ICU He has been feeling a lot better today and requiring less oxygen via nasal cannula to maintain saturation Denies any complaints 06/04/2020 The patient was seen and examined in telemetry unit He has been feeling a lot better but is still requiring high flow oxygen to maintain saturation Denies any significant symptoms 06/05/2020 The patient was seen and examined in telemetry unit He complains of occasional nausea but breathing remains stable He is still requiring about 45% FiO2 decreased from 60% as of yesterday 06/06/2020 The patient was seen and examined in telemetry unit He remains short of breath and requiring high flow oxygen to maintain saturation sometimes up to 80 He is generally weak and lethargic Denies any significant pain, no fever and/or chills, no nausea and or vomiting 06/07/2020 The patient was seen and examined in telemetry/Covid unit He has been feeling worse compared with yesterday and has been requiring more ox ygen to maintain saturation Denies any significant symptoms other than weakness and shortness of breath 06/08/2020 The patient was seen and examined in telemetry/Covid unit He remains stable but critical Complains of shortness of breath at rest and requiring high flow oxygen with FiO2 of 40-80 to maintain saturation Denies any other symptoms 06/09/2020 The patient was seen and examined in telemetry/Covid unit His condition remains critical and deteriorating Still requiring high flow oxygen to maintain saturation Denies any significant pain, nausea and or vomiting, fever or chills Review of Systems Review of Systems: All systems reviewed and are unremarkable except as noted below Constitutional: + weakness Respiratory: + dyspnea Neurologic: + generalized weakness; no tremor(s), no headache(s) and no confusion Physical Exam Physical Exam: Lying in bed with moderate shortness of breath at rest Constitutional: well developed, well nourished, + acute distress (Due to shortness of breath) and + ill appearing Eyes: PERRL, conjunctivae normal, anicteric sclerae ENMT: external ear and nose normal, oropharynx normal Neck: trachea midline, no thyromegaly Respiratory: + respiratory distress, + labored breathing, + uses accessory muscles and + cough Auscultation: + diminished lung sounds, + crackles and + wheezes Cardiovascular: Rate/Rhythm: regular rate and regular rhythm Heart Sounds: no murmur Gastrointestinal (Abdomen): Inspection/Auscultation: normal bowel sounds; abdomen not distended Percussion/Palpation: abdomen soft; abdomen nontender Musculoskeletal: No acute arthritis in any joint Neurologic: Alert, awake and oriented x3. Very weak and lethargic Psychiatric: A+Ox3, euthymic affect Results & Data Results & Data ([facility]) Vital Signs (Past 12 Hours) Vital Signs Temp Pulse Pulse Pulse Resp BP BP 06/09/20 15:38 20 06/09/20 15:28 36.9 C 82 19 114/65 06/09/20 11:25 81 20 06/09/20 11:21 36.8 C 79 23 110/65 06/09/20 08:00 74 06/09/20 07:36 36.8 C 82 24 127/71 Pulse Ox 06/09/20 15:38 93 06/09/20 15:28 95 06/09/20 11:25 90 06/09/20 11:21 98 06/09/20 08:00 06/09/20 07:36 89 L Medications Administered Current Inpatient Medications Acetaminophen (Acetaminophen 325 Mg Tab) 650 mg PO Q4H PRN PRN Reason: Pain or Fever Stop: 06/22/20 00:45 Last Admin: 06/09/20 07:58 Dose: 650 mg Documented by: Albuterol (Albuterol Hfa 8 Gm Inhaler) 2 puffs INH Q4R PRN PRN Reason: shortness of breath Stop: 06/28/20 16:37 Last Admin: 06/09/20 11:23 Dose: 2 puffs Documented by: Aspirin (Aspirin 81 Mg Ectab) 81 mg PO DAILY MARY Stop: 06/22/20 08:59 Last Admin: 06/09/20 07:43 Dose: 81 mg Documented by: Atorvastatin Calcium (Atorvastatin 40 Mg Tab) 80 mg PO HS MARY Stop: 06/22/20 20:59 Last Admin: 06/08/20 22:19 Dose: 80 mg Documented by: Dextrose (Dextrose 50% 50 Ml Syringe) 25 - 50 ml IV UD PRN; Protocol PRN Reason: Hypoglycemia Protocol Stop: 06/22/20 01:29 Last Admin: 05/29/20 21:38 Dose: 50 ml Documented by: Fludrocortisone Acetate (Fludrocortisone Acetate 0.1 Mg Tab) 0.3 mg PO QAM MARY Stop: 07/03/20 08:59 Last Admin: 06/09/20 07:44 Dose: 0.3 mg Documented by: Fluoxetine HCl (Fluoxetine Hcl 20 Mg Cap) 40 mg PO DAILY MARY Stop: 06/22/20 08:59 Last Admin: 06/09/20 07:46 Dose: 40 mg Documented by: Gabapentin (Gabapentin 300 Mg Cap) 300 mg PO BID MARY Stop: 07/01/20 20:59 Last Admin: 06/09/20 07:45 Dose: 300 mg Documented by: Glucagon (Glucagon For Inj 1 Mg Vial) 1 mg SQ UD PRN; Protocol PRN Reason: Hypoglycemia Protocol Stop: 06/22/20 01:29 Glucose (Glucose 40% Gel 15 Gm Tube) 15 - 30 gm PO UD PRN; Protocol PRN Reason: Hypoglycemia Protocol Stop: 06/22/20 01:29 Glucose (Glucose 10 Tabs/Tube) 4 - 8 tabs PO UD PRN; Protocol PRN Reason: Hypoglycemia Protocol Stop: 06/22/20 01:29 Last Admin: 05/29/20 21:15 Dose: 4 tabs Documented by: Heparin Sodium (Beef Lung) (Heparin 10 Unit/Ml 5 Ml Flush) 5 ml FLUSH PRN PRN PRN Reason: Flush Stop: 07/03/20 22:44 Heparin Sodium (Porcine) (Heparin Sod 5,000 Unit/0.5 Ml Vial) 5,000 units SQ Q12 MARY Stop: 07/03/20 08:59 Last Admin: 06/09/20 07:49 Dose: 5,000 units Documented by: Hydralazine HCl (Hydralazine 10 Mg Tab) 10 mg PO Q6H PRN PRN Reason: Hypertension/ SBP >160 Stop: 07/01/20 18:44 Dexamethasone Sodium Phosphate (6 mg/ Syringe) 1.5 mls @ 1 mls/min IV DAILY MARY Stop: 06/10/20 08:59 Last Admin: 06/09/20 07:58 Dose: 1 mls/min Documented by: Furosemide 20 mg/ Syringe 2 mls @ 4 mls/min IV BID17 [facility] Stop: 07/05/20 08:59 Last Admin: 06/09/20 07:58 Dose: 4 mls/min Documented by: Insulin Aspart (Insulin Aspart 100 Units/Ml 3 Ml Pen) 0 units SC ACHS [facility]; Protocol Stop: 06/09/20 23:59 Last Admin: 06/09/20 12:42 Dose: 10 units Documented by: Insulin Aspart (Insulin Aspart 100 Units/Ml 3 Ml Pen) 0 units SC ACHS [facility]; Pro tocol Stop: 07/10/20 07:29 Insulin Glargine (Insulin Glargine Solostar 100 Units/Ml 3 Ml Pen) 22 units SC [facility]; Protocol Stop: 07/10/20 08:59 Levothyroxine Sodium (Levothyroxine Sodium 137 Mcg Tablet) 137 mcg PO DAILYBB [facility] Stop: 06/22/20 06:29 Last Admin: 06/09/20 06:14 Dose: 137 mcg Documented by: Miscellaneous (Carbohydrates For Hypoglycemia ) 15 - 30 gm PO UD PRN PRN Reason: Hypoglycemia Treatment Stop: 06/22/20 01:29 Last Admin: 05/29/20 17:10 Dose: 15 gm Documented by: Miscellaneous Information (Pharmacy Glycemic Mgmt Consult) 1 ea N/A UD PRN PRN Reason: Consult Stop: 06/23/20 15:06 Multi-Ingredient Cream (Eucerin Cr 120 Gm Jar) 1 appln EXT BID PRN PRN Reason: Rash Stop: 06/28/20 11:00 Multivitamins (Multivitamin Tab) 1 tab PO [facility] Stop: 07/03/20 08:59 Last Admin: 06/09/20 07:44 Dose: 1 tab Documented by: Ondansetron HCl (Ondansetron Inj 2 Mg/Ml 2 Ml Vial) 4 mg IV Q6H PRN PRN Reason: Nausea Stop: 06/22/20 00:45 Last Admin: 06/08/20 07:48 Dose: 4 mg Documented by: Pantoprazole Sodium (Pantoprazole 40 Mg Tab) 40 mg PO [facility] Stop: 06/26/20 18:29 Last Admin: 06/09/20 07:46 Dose: 40 mg Documented by: Potassium Chloride (Potassium Chloride Crtab 20 Meq Tabcr) 20 meq PO BID [facility] Stop: 07/08/20 10:29 Last Admin: 06/09/20 07:43 Dose: 20 meq Documented by: Thiamine HCl (Thiamine Hcl 100 Mg Tab) 100 mg PO BID [facility] Stop: 06/28/20 08:59 Last Admin: 06/09/20 07:46 Dose: 100 mg Documented by: Vitamin B Complex/Folic Acid (Nephrocaps) 1 cap PO DAILY [facility] Stop: 06/22/20 08:59 Last Admin: 06/09/20 07:44 Dose: 1 cap Documented by: (1) Hypertension Hypertension type: essential hypertension Qualified Code(s): I10 - Essential (primary) hypertension
[2020-06-09] MEDS: ATORVASTATIN 40 MG TAB PO SCH (21:48)
[2020-06-10] MEDS: LEVOTHYROXINE SODIUM 137 MCG TABLET PO SCH (06:11)
[2020-06-10 06:19] LABS: Basophils # (auto) 0.01 K/uL (0-0.2); Basophils % (auto) 0.1 %; Eosinophils # (auto) 0.16 K/uL (0-0.5); Eosinophils % (auto) 1.2 %; Hemoglobin 8.2 g/dL (14.0-18.0); Immature Granulocytes # (auto) 0.16 K/uL (0.00-0.02); Immature Granulocytes % (auto) 1.2 %; Lymphocytes # (auto) 1.52 K/uL (1.2-3.4); Lymphocytes % (auto) 11.5 %; Mean Corpuscular Hemoglobin 26.7 pg (25-34); Mean Corpuscular Hgb Conc 31.5 g/dL (32-36); Mean Corpuscular Volume 84.7 fL (80-100); Mean Platelet Volume 10.8 fL (7.4-10.4); Monocytes # (auto) 0.26 K/uL (0.11-0.59); Neutrophils # (auto) 11.09 K/uL (1.4-6.5); Platelet Count 471 K/uL (130-400); RDW Coefficient of Variation 16.9 % (11.5-14.5); RDW Standard Deviation 50.8 fL (36.4-46.3); Red Blood Count 3.07 M/uL (4.7-6.1)
[2020-06-10 06:40] LABS: BUN Creatinine Ratio 35.4 (10-20); Calcium 8.5 mg/dl (8.5-10.1); Creatinine Clr Calc Pharmacy 31.2 ml/min; Est GFR (African American) 27.6; Est GFR (Non-African American) 23.8; Potassium 3.7 mmol/L (3.5-5.1)
[2020-06-10] MEDS ORDERED: INSULIN GLARGINE SOLOSTAR 100 UNITS/ML 3 ML PEN SC SCH (09:00)
[2020-06-10] MEDS: POTASSIUM CHLORIDE CRTAB 20 MEQ TABCR PO SCH ×2 (09:15→21:47)
[2020-06-10] MEDS: NEPHROCAPS PO SCH (09:15)
[2020-06-10] MEDS: ASPIRIN 81 MG ECTAB PO SCH (09:15)
[2020-06-10] MEDS: PANTOprazole 40 MG TAB PO SCH (09:15)
[2020-06-10] MEDS: FLUoxetine HCL 20 MG CAP PO SCH (09:15)
[2020-06-10] MEDS: MULTIVITAMIN TAB PO SCH (09:15)
[2020-06-10] MEDS: FLUDROCORTISONE ACETATE 0.1 MG TAB PO SCH (09:15)
[2020-06-10] MEDS: THIAMINE HCL 100 MG TAB PO SCH ×2 (09:15→21:47)
[2020-06-10] MEDS: GABAPENTIN 300 MG CAP PO SCH ×2 (09:15→21:47)
[2020-06-10] MEDS: FUROSEMIDE 20 MG in SYRINGE 0 ML IV SCH ×2 (09:17→18:13)
[2020-06-10] MEDS: HEPARIN SOD 5,000 UNIT/0.5 ML VIAL SQ SCH ×2 (09:17→21:47)
[2020-06-10] MEDS: INSULIN ASPART 100 UNITS/ML 3 ML PEN SC SCH ×4 (09:18→21:34)
[2020-06-10] MEDS ORDERED: predniSONE 10 MG TABLET PO ONE (12:30)
--- NOTE | 2020-06-10 13:04 | Pharmacy Report ---
Pharmacy Glycemic Short Note 2 - Date of Service June 10, 2020 - Glycemic Short BSG Results (Last 24 hours): 06/09/20 06/09/20 06/10/20 16:30 20:23 05:29 Glucose 155 H POC Glucose 180 H 209 H 06/10/20 06/10/20 07:16 11:39 Glucose POC Glucose 169 H 188 H Outpatient Anti-diabetic Regimen: * Lantus 15 units SC qAM, 8 units SC qPM * A1c = 8.3 % on 05/23/20 ASSESSMENT: 06/10 * Patient received dexamethasone 6 mg IV daily x17 days. This is 40 mg in terms of prednisone equivalents. Although this is not *greater than* 3 weeks, it is close to 3 weeks and therefore patient may have an element of HPA axis suppression which would require a steroid taper to prevent glucocorticoid withdrawal. Discussed w Dr. Cagle - plan currently is to start prednisone taper 30 mg po daily x7 days, 20 mg po daily x7 days, 10 mg po daily x7 days. This may require adjustment/slowing taper depending on patient tolerability. * Lantus dose reduced this AM - this dose may not be enough with prednisone admin this afternoon, but instead of giving a unit or two of Lantus in supplement, will schedule two overnight checks to provide additional "basal" insulin if needed * Will tighten the Novolog CHO ration slightly with steroids being resumed, but not quite to what it was previously while on dexamethasone 6 mg IV daily 06/09 * Dexamethasone scheduled to stop after dose this AM. Therefore will adjust regimen starting tomorrow AM. Will reduce Lantus and significantly loosen Novolog parameters. Further loosening may eventually be required as effects of dexamethasone gradually wear off 06/07 * Dexamethasone 6 mg IV daily continues * Labile BSG's noted - hypoglycemia noted 06/05 and severe hyperglycemia 06/06. Yesterday, BSG's improved - ranged 157-271 mg/dL * AM fasting BSG in goal range - will continue Lantus * Post-prandial elevations yesterday noted, but none >300 mg/dL and hypoglycemia occurred on 06/05 with current CHO ratio. Therefore will not tighten further. 06/06: * Gilbert received 36 units of insulin yesterday (this is significantly less than previous days) * 20 units of basal * 16 units of bolus * BSGs: 138, 57, 113, 243 mg/dL * remains on dexamethasone 6 mg IV daily * Fasting BSG this AM was 337 mg/dL. I suspect this is due to basal deficiency. Patient received 30-32 units of basal insulin 06/02 through 06/04 but only 20 units yesterday (~35% reduction). Patient will resume dose of 30 units of basal today. I will add a small dose of NPH this morning only to help cover dexamethasone while patient is overcoming basal deficiency. * Post prandial BSGs were on the lower end yesterday with the exception of bedtime BSG of 243 mg/dL. Patient consumed 15 grams of carbs with dinner that were not covered with Novolog, therefore this elevation is to be expected. No changes to Novolog. 06/05: * Gilbert received 65 units of insulin total yesterday * 32 units basal + 33 units bolus * BSGs were [phone] mg/dL * BSGs trending upwards throughout the day * Fasting BSG this AM was controlled at 138 mg/dL * Lunchtime BSG was 52 mg/dL with a recheck of 57 mg/dL * Patient was not symptomatic and did not require treatment. BSG increased with lunch meal. * Each of the last two days, patient's AM and lunch BSGs have been low or borderline low which may be secondary to BID Lantus * Will attempt front-loading all of his basal insulin in the AM when he get the dexamethasone 06/04: * Patient's fasting and lunchtime BSG well controlled today after more heavily weighting AM Levemir. Will continue to monitor for further adjustments. The patient appears to be very labile and BSG trends have been difficult to identify thus far. Patient continues on dexamethasone and is tolerating a diet. 06/03: * Patient did trend down nicely yesterday with addition of levemir. Fasting BSG this morning was also well controlled. However, lunchtime BSG was significantly elevated, but AM novolog dose may not have been adequate. Patient remains on steroids and is tolerating a diet. Novolog was slightly tightened for dinnertime, however I am hesitant to make too many changes as patient was been labile in the past. Will assess a full 24 hours on current regimen and assess need for further changes tomorrow. May consider transition to NPH. PLAN FOR INPATIENT GLYCEMIC CONTROL: * Basal insulin * Lantus 22 units SQ this AM. Will need to assess dose for tomorrow AM based on trend in BSG's * Bolus insulin - tighten * NovoLog per scale ACHS or Q6hrs while NPO * Goal Range: Low 120 mg/dL - High 150 mg/dL * Correction Factor: 25 mg/dL/unit * Nutritional / Prandial insulin per carb ratio of 1 unit per 7 grams CHO consumed Plan for discharge: Dependent on changes in inpatient insulin requirements with starting steroid taper
--- NOTE | 2020-06-10 16:10 | Hospitalist Progress Note ---
Date of Service June 10, 2020 Assessment & Plan (1) Acute respiratory failure with hypoxia: Admitted almost 3 weeks ago with covid pneumonia. Had acute respiratory distress syndrome with severe hypoxic respiratory failure on admisstion. Received one unit of conv plasma on 05/27. Has been receiving dexamethasone since that time. Working with pharmacist on an oral taper starting today to wean him off steroids safely over the next 3 weeks. Not a candidate for remdesivir 2/2 renal failure. Continues on high flow oxygen supplementation since that time and reports that he is starting to improve. He is DNR/DNI. (2) Pneumonia due to COVID-19 virus: He completed a robust antibiotic course while admitted. (Doxycycline 100mg BID 5 dys, stopped for 2, resumed 05/30 for 7 full days, Ceftriaxone x 14 days, Cefepime for an additional 3 days after the ceftriaxone completed, and Flagyl for 8 days.) Cont care plan as outlined above with supportive care measures and steroids. Cont scheduled Lasix as creatinine is coming down to around baseline and patient reports feeling improved. CXR in am to monitor progress. (3) XOCHITL (acute kidney injury): XOCHITL in setting of CKD 2/2 ATN in setting of COVID infection-appears closer to his baseline on labwork. Cont Lasix 20 IV BID for now, and touch base with nephrology who has been following him. Is not on home lasix per admission med list. Will consider stopping this tomorrow. (4) Diabetes mellitus type I: Continue insulin and lantus during admission. A1c is 8.3. Glucose appears well-controlled despite ongoing steroid therapy. Pharmacy is helping to manage this. (5) Thrush, oral: Likely from [employer] steroids. Started Nystatin swish and swallow regimen for 10 days. This may help to improve his PO intake. (6) Diabetic neuropathy: Home dose gabapentin was 600mg PO QID decreased to 300mg PO BID becuase of renal insufficiency. Will discuss this with nephro and pharmacy further in am. For now, give scheduled Tylenol and PRN oxy for discomfort with minimization of narcotic with current respiratory status. (7) Hypothyroidism: chronic, stable, Continue levothyroxine per home regimen. (8) Depression: chronic, stable. Pt appears encouraged today and in good spirits. Cont Prozac per home regimen. (9) DVT prophylaxis: Heparin SQ DNR/DNI Dipso-cont [facility] regional hospitalization/PCU status, still requiring high flow oxygen supplementation. Prognosis poor but continuing treatment and supportive care at this time. Pt does report feeling some improvement today. Kenya Cagle DO [facility] Hospitalist Admission and Anticipated Discharge Date Admission Date: May 22, 2020 Subjective 55 yo M hospitalized for COVID pneumonia feels improved still SOB and requiring significant oxygen through high flow mechanism per prior provider who discussed group home healthcare goals he is DNR reports that his neuropathy is not well controled currently taking gabapentin 300mg PO BID Review of Systems Review of Systems: All systems reviewed & are unremarkable except as noted in Subjective Physical Exam Physical Exam: CONSTITUTIONAL: WNWD, vitals as above, generally thin, inmate in restraints. EYES: normal conjunctivae, no scleral icterus ENT: external ear and nose normal, tongue with whitish substance all over it consistent with thrush. NECK: trachea midline RESPIRATORY: normal respiratory effort on max high flow oxygen supplementation, easily desaturates with speaking, +conversational dyspnea. Crackles at left base, otherwise no wheezes and good airflow throughout the remainder of the lung. Right side airflow is significantly diminished on auscultation. No clear adventitial sounds here. CARDIOVASCULAR: regular rate and rhythm, S1 and 2 heard without murmurs, gallops or rubs, no JVD, no peripheral edema GASTROINTESTINAL: soft, nontender, nondistended, no guarding MUSCULOSKELETAL: generalized weakness, head is normocephalic and atraumatic SKIN: warm and dry NEUROLOGIC: CN 2-12 grossly intact, normal cognition, normal speech, no gross focal deficits. PSYCHIATRIC: alert cooperative and answering questions appropriately. Results & Data Results & Data ([facility]) Vital Signs (Past 12 Hours) Vital Signs Temp Pulse Pulse Resp BP Pulse Ox 06/10/20 16:00 90 06/10/20 15:15 84 20 89 L 06/10/20 11:40 36.8 C 84 20 108/54 L 85 L 06/10/20 11:25 80 20 93 06/10/20 08:00 72 06/10/20 07:54 77 20 91 06/10/20 07:19 36.6 C 76 26 H 123/74 84 L 06/10/20 04:28 36.5 C 71 20 130/72 91 Laboratory Results Short CBC 06/10/20 Range/Units 05:29 WBC 13.20 H (4.8-10.8) K/uL Hgb 8.2 L (14.0-18.0) g/dL Hct 26.0 L (42-52) % Plt Count 471 H (130-400) K/uL BMP 06/10/20 05:29 Sodium 142 Potassium 3.7 Chloride 109 H Carbon Dioxide 26 BUN 100 H Creatinine 2.83 H D Glucose 155 H Calcium 8.5 Medications Administered Current Inpatient Medications Acetaminophen (Acetaminophen 325 Mg Tab) 650 mg PO Q4H PRN PRN Reason: Pain or Fever Stop: 06/22/20 00:45 Last Admin: 06/09/20 07:58 Dose: 650 mg Documented by: Albuterol (Albuterol Hfa 8 Gm Inhaler) 2 puffs INH Q4R PRN PRN Reason: shortness of breath Stop: 06/28/20 16:37 Last Admin: 06/09/20 11:23 Dose: 2 puffs Documented by: Aspirin (Aspirin 81 Mg Ectab) 81 mg PO DAILY MARY Stop: 06/22/20 08:59 Last Admin: 06/10/20 09:15 Dose: 81 mg Documented by: Atorvastatin Calcium (Atorvastatin 40 Mg Tab) 80 mg PO HS MARY Stop: 06/22/20 20:59 Last Admin: 06/09/20 21:48 Dose: 80 mg Documented by: Dextrose (Dextrose 50% 50 Ml Syringe) 25 - 50 ml IV UD PRN; Protocol PRN Reason: Hypoglycemia Protocol Stop: 06/22/20 01:29 Last Admin: 05/29/20 21:38 Dose: 50 ml Documented by: Fludrocortisone Acetate (Fludrocortisone Acetate 0.1 Mg Tab) 0.3 mg PO QAM MARY Stop: 07/03/20 08:59 Last Admin: 06/10/20 09:15 Dose: 0.3 mg Documented by: Fluoxetine HCl (Fluoxetine Hcl 20 Mg Cap) 40 mg PO DAILY MARY Stop: 06/22/20 08:59 Last Admin: 06/10/20 09:15 Dose: 40 mg Documented by: Gabapentin (Gabapentin 300 Mg Cap) 300 mg PO BID MARY Stop: 07/01/20 20:59 Last Admin: 06/10/20 09:15 Dose: 300 mg Documented by: Glucagon (Glucagon For Inj 1 Mg Vial) 1 mg SQ UD PRN; Protocol PRN Reason: Hypoglycemia Protocol Stop: 06/22/20 01:29 Glucose (Glucose 40% Gel 15 Gm Tube) 15 - 30 gm PO UD PRN; Protocol PRN Reason: Hypoglycemia Protocol Stop: 06/22/20 01:29 Glucose (Glucose 10 Tabs/Tube) 4 - 8 tabs PO UD PRN; Protocol PRN Reason: Hypoglycemia Protocol Stop: 06/22/20 01:29 Last Admin: 05/29/20 21:15 Dose: 4 tabs Documented by: Heparin Sodium (Beef Lung) (Heparin 10 Unit/Ml 5 Ml Flush) 5 ml FLUSH PRN PRN PRN Reason: Flush Stop: 07/03/20 22:44 Heparin Sodium (Porcine) (Heparin Sod 5,000 Unit/0.5 Ml Vial) 5,000 units SQ Q12 MARY Stop: 07/03/20 08:59 Last Admin: 06/10/20 09:17 Dose: 5,000 units Documented by: Hydralazine HCl (Hydralazine 10 Mg Tab) 10 mg PO Q6H PRN PRN Reason: Hypertension/ SBP >160 Stop: 07/01/20 18:44 Furosemide 20 mg/ Syringe 2 mls @ 4 mls/min IV [id number] [facility] Stop: 07/05/20 08:59 Last Admin: 06/10/20 09:17 Dose: 4 mls/min Documented by: Insulin Aspart (Insulin Aspart 100 Units/Ml 3 Ml Pen) 0 units SC ACHS [facility]; Protocol Stop: 07/10/20 07:29 Last Admin: 06/10/20 12:58 Dose: 10 units Documented by: Insulin Aspart (Insulin Aspart 100 Units/Ml 3 Ml Pen) 0 units SC TODAY@0000,0400 [facility]; Protocol Stop: 06/11/20 04:01 Levothyroxine Sodium (Levothyroxine Sodium 137 Mcg Tablet) 137 mcg PO DAILYBB [facility] Stop: 06/22/20 06:29 Last Admin: 06/10/20 06:11 Dose: 137 mcg Documented by: Miscellaneous (Carbohydrates For Hypoglycemia ) 15 - 30 gm PO UD PRN PRN Reason: Hypoglycemia Treatment Stop: 06/22/20 01:29 Last Admin: 05/29/20 17:10 Dose: 15 gm Documented by: Miscellaneous Information (Pharmacy Glycemic Mgmt Consult) 1 ea N/A UD PRN PRN Reason: Consult Stop: 06/23/20 15:06 Multi-Ingredient Cream (Eucerin Cr 120 Gm Jar) 1 appln EXT BID PRN PRN Reason: Rash Stop: 06/28/20 11:00 Multivitamins (Multivitamin Tab) 1 tab PO [facility] Stop: 07/03/20 08:59 Last Admin: 06/10/20 09:15 Dose: 1 tab Documented by: Ondansetron HCl (Ondansetron Inj 2 Mg/Ml 2 Ml Vial) 4 mg IV Q6H PRN PRN Reason: Nausea Stop: 06/22/20 00:45 Last Admin: 06/08/20 07:48 Dose: 4 mg Documented by: Pantoprazole Sodium (Pantoprazole 40 Mg Tab) 40 mg PO [facility] Stop: 06/26/20 18:29 Last Admin: 06/10/20 09:15 Dose: 40 mg Documented by: Potassium Chloride (Potassium Chloride Crtab 20 Meq Tabcr) 20 meq PO BID [facility] Stop: 07/08/20 10:29 Last Admin: 06/10/20 09:15 Dose: 20 meq Documented by: Prednisone (Prednisone 10 Mg Tablet) 30 mg PO [facility]; Taper Stop: 07/01/20 08:59 Thiamine HCl (Thiamine Hcl 100 Mg Tab) 100 mg PO BID [facility] Stop: 06/28/20 08:59 Last Admin: 06/10/20 09:15 Dose: 100 mg Documented by: Vitamin B Complex/Folic Acid (Nephrocaps) 1 cap PO DAILY [facility] Stop: 06/22/20 08:59 Last Admin: 06/10/20 09:15 Dose: 1 cap Documented by:
[2020-06-10] MEDS ORDERED: oxyCODONE HCL IR 5 MG TAB (IMMEDIATE RELEASE) PO PRN (21:06)
[2020-06-10] MEDS: ATORVASTATIN 40 MG TAB PO SCH (21:47)
[2020-06-10] MEDS: ACETAMINOPHEN 500 MG TAB PO SCH (22:18)
[2020-06-10] MEDS: NYSTATIN SUSP 500,000 U/5 ML UDC PO SCH (22:19)
[2020-06-11] MEDS: INSULIN ASPART 100 UNITS/ML 3 ML PEN SC SCH ×6 (00:20→21:14)
[2020-06-11] MEDS: ACETAMINOPHEN 500 MG TAB PO SCH ×3 (06:05→21:11)
[2020-06-11] MEDS: LEVOTHYROXINE SODIUM 137 MCG TABLET PO SCH (06:06)
[2020-06-11 06:38] LABS: Hematocrit (blood only) 28.5 % (42-52); Hemoglobin 9.1 g/dL (14.0-18.0); Mean Corpuscular Hemoglobin 27.4 pg (25-34); Mean Corpuscular Hgb Conc 31.9 g/dL (32-36); Mean Corpuscular Volume 85.8 fL (80-100); Mean Platelet Volume 11.1 fL (7.4-10.4); Platelet Count 520 K/uL (130-400); RDW Coefficient of Variation 17.4 % (11.5-14.5); RDW Standard Deviation 53.1 fL (36.4-46.3); Red Blood Count 3.32 M/uL (4.7-6.1)
[2020-06-11 07:07] LABS: Calcium 8.7 mg/dl (8.5-10.1); Creatinine Clr Calc Pharmacy 34.1 ml/min; Est GFR (African American) 30.4; Est GFR (Non-African American) 26.3; Magnesium 2.4 mg/dl (1.8-2.4); Potassium 4.2 mmol/L (3.5-5.1)
[2020-06-11 07:12] LABS: C Reactive Protein 4.65 mg/dl (0-0.29); Ferritin 84.9 ng/ml (8-388); Phosphorus 3.8 mg/dl (2.5-4.9)
[2020-06-11] MEDS ORDERED: INSULIN GLARGINE SOLOSTAR 100 UNITS/ML 3 ML PEN SC ONE (08:00)
[2020-06-11] MEDS ORDERED: predniSONE 10 MG TABLET PO SCH (09:00)
[2020-06-11] MEDS: HEPARIN SOD 5,000 UNIT/0.5 ML VIAL SQ SCH ×2 (09:34→21:06)
[2020-06-11] MEDS: THIAMINE HCL 100 MG TAB PO SCH ×2 (09:44→21:12)
[2020-06-11] MEDS: ASPIRIN 81 MG ECTAB PO SCH (09:45)
[2020-06-11] MEDS: FLUDROCORTISONE ACETATE 0.1 MG TAB PO SCH (09:45)
[2020-06-11] MEDS: MULTIVITAMIN TAB PO SCH (09:45)
[2020-06-11] MEDS: POTASSIUM CHLORIDE CRTAB 20 MEQ TABCR PO SCH ×2 (09:45→21:13)
[2020-06-11] MEDS: PANTOprazole 40 MG TAB PO SCH (09:46)
[2020-06-11] MEDS: FLUoxetine HCL 20 MG CAP PO SCH (09:46)
[2020-06-11] MEDS: NEPHROCAPS PO SCH (09:46)
[2020-06-11] MEDS: GABAPENTIN 300 MG CAP PO SCH ×3 (09:46→21:11)
[2020-06-11] MEDS: NYSTATIN SUSP 500,000 U/5 ML UDC PO SCH ×4 (09:48→21:10)
[2020-06-11] MEDS: FUROSEMIDE 20 MG in SYRINGE 0 ML IV SCH ×2 (09:48→16:44)
--- NOTE | 2020-06-11 10:45 | XRay Report ---
XR chest 1V portable HISTORY: 55 years-old Male monitor progress, +persistent hypoxia, +cov-19 acute shortness of breath COMPARISON: Chest radiograph 06/05/2020, CTA chest 12/09/2016. TECHNIQUE: Portable AP view of the chest FINDINGS: Moderate cardiomegaly. No pneumothorax. Progressively worsened mixed interstitial and alveolar opacit ies with consolidation most pronounced in the right lung base. No large pleural effusion. Mild emphys darby. Previously described 12 mm nodular opacity of the left lung base is better seen on comparison. D egenerative changes of the shoulders and spine. IMPRESSION: 1. Moderately progressed bilateral mixed interstitial and alveolar opacities suggestive of multifocal pneumonia. Superimposed pulmonary edema would be difficult to exclude. 2. Cardiomegaly. 3. Emphysema. ACT 112: Negative or not required by law. The above report was generated using voice recognition software. It may contain grammatical, syntax o r spelling errors. Electronically signed by: Jabari Leong M.D. 06/11/2020 10:44 AM
--- NOTE | 2020-06-11 10:46 | Pharmacy Report ---
Pharmacy Glycemic Short Note 2 - Date of Service June 11, 2020 - Glycemic Short BSG Results (Last 24 hours): 06/10/20 06/10/20 06/10/20 11:39 16:58 20:52 Glucose POC Glucose 188 H 129 H 149 H 06/11/20 06/11/20 06/11/20 00:03 04:30 05:54 Glucose 190 H POC Glucose 171 H 204 H 06/11/20 07:21 Glucose POC Glucose 228 H Outpatient Anti-diabetic Regimen: * Lantus 15 units SC qAM, 8 units SC qPM * A1c = 8.3 % on 05/23/20 ASSESSMENT: 06/11 * Post-prandial BSG's well controlled yesterday with revised CHO ratio - no change to Novolog CHO ratio. But will tighten correction factor now to help make up for basal deficiency causing hyperglycemia * AM fasting BSG elevated, as anticipated due to late admin of steroids yesterday (see 06/10 comment). Will increase dose today. Will add two overnight checks 06/10 * Patient received dexamethasone 6 mg IV daily x17 days. This is 40 mg in terms of prednisone equivalents. Although this is not *greater than* 3 weeks, it is close to 3 weeks and therefore patient may have an element of HPA axis suppression which would require a steroid taper to prevent glucocorticoid withdrawal. Discussed w Dr. Cagle - plan currently is to start prednisone taper 30 mg po daily x7 days, 20 mg po daily x7 days, 10 mg po daily x7 days. This may require adjustment/slowing taper depending on patient tolerability. * Lantus dose reduced this AM - this dose may not be enough with prednisone admin this afternoon, but instead of giving a unit or two of Lantus in supplement, will schedule two overnight checks to provide additional "basal" insulin if needed * Will tighten the Novolog CHO ration slightly with steroids being resumed, but not quite to what it was previously while on dexamethasone 6 mg IV daily 06/09 * Dexamethasone scheduled to stop after dose this AM. Therefore will adjust regimen starting tomorrow AM. Will reduce Lantus and significantly loosen Novolog parameters. Further loosening may eventually be required as effects of dexamethasone gradually wear off 06/07 * Dexamethasone 6 mg IV daily continues * Labile BSG's noted - hypoglycemia noted 06/05 and severe hyperglycemia 06/06. Yesterday, BSG's improved - ranged 157-271 mg/dL * AM fasting BSG in goal range - will continue Lantus * Post-prandial elevations yesterday noted, but none >300 mg/dL and hypoglycemia occurred on 06/05 with current CHO ratio. Therefore will not tighten further. 06/06: * Gilbert received 36 units of insulin yesterday (this is significantly less than previous days) * 20 units of basal * 16 units of bolus * BSGs: 138, 57, 113, 243 mg/dL * remains on dexamethasone 6 mg IV daily * Fasting BSG this AM was 337 mg/dL. I suspect this is due to basal deficiency. Patient received 30-32 units of basal insulin 06/02 through 06/04 but only 20 units yesterday (~35% reduction). Patient will resume dose of 30 units of basal today. I will add a small dose of NPH this morning only to help cover dexamethasone while patient is overcoming basal deficiency. * Post prandial BSGs were on the lower end yesterday with the exception of bedtime BSG of 243 mg/dL. Patient consumed 15 grams of carbs with dinner that were not covered with Novolog, therefore this elevation is to be expected. No changes to Novolog. 06/05: * Gilbert received 65 units of insulin total yesterday * 32 units basal + 33 units bolus * BSGs were [phone] mg/dL * BSGs trending upwards throughout the day * Fasting BSG this AM was controlled at 138 mg/dL * Lunchtime BSG was 52 mg/dL with a recheck of 57 mg/dL * Patient was not symptomatic and did not require treatment. BSG increased with lunch meal. * Each of the last two days, patient's AM and lunch BSGs have been low or borderline low which may be secondary to BID Lantus * Will attempt front-loading all of his basal insulin in the AM when he get the dexamethasone 06/04: * Patient's fasting and lunchtime BSG well controlled today after more heavily weighting AM Levemir. Will continue to monitor for further adjustments. The patient appears to be very labile and BSG trends have been difficult to identify thus far. Patient continues on dexamethasone and is tolerating a diet. 06/03: * Patient did trend down nicely yesterday with addition of levemir. Fasting BSG this morning was also well controlled. However, lunchtime BSG was significantly elevated, but AM novolog dose may not have been adequate. Patient remains on steroids and is tolerating a diet. Novolog was slightly tightened for dinnertime, however I am hesitant to make too many changes as patient was been labile in the past. Will assess a full 24 hours on current regimen and assess need for further changes tomorrow. May consider transition to NPH. PLAN FOR INPATIENT GLYCEMIC CONTROL: * Insulin regular 5 units IV x1 at lunch for BSG >300 mg/dL * Basal insulin - increase * Lantus 27 units SQ this AM. Will need to assess dose for tomorrow AM based on trend in BSG's * Bolus insulin - tighten * NovoLog per scale ACHS or Q6hrs while NPO * Goal Range: Low 120 mg/dL - High 150 mg/dL * Correction Factor: 20 mg/dL/unit * Nutritional / Prandial insulin per carb ratio of 1 unit per 7 grams CHO consumed Plan for discharge: Dependent on changes in inpatient insulin requirements with starting steroid taper
[2020-06-11] MEDS ORDERED: INSULIN HUMAN REGULAR PER UNIT 5 UNITS in SYRINGE 4.95 ML IV ONE (13:00)
--- NOTE | 2020-06-11 16:04 | Pulmonology Progress Note ---
Date of Service June 11, 2020 Assessment & Plan (1) Pneumonia: Chest x-ray 06/11/2020 personally reviewed: There is increase bilateral haziness appreciated more on the right side. Bilateral costophrenic and cardiophrenic angles are clean. The chest x-ray was compared to 06/05/2020. --Hypoxic respiratory failure Multifactorial Covid 19 PNA, CKD S/p course of antibiotics. s/p Dexamethasone. Patient is currently on tapering prednisone. Would recommend tapering off in the next 4 days. BNP is within normal limit. I doubt volume playing a role on the chest x-ray. Patient is not complaining of anything he is not spiking fever. --[facility] is on board Plan: Patient is -2.5 L in the last 24 hours He is on Lasix and diuresing well. Creatinine has returned to his baseline. I would not treat the chest x-ray. If the patient is clinically doing okay, no need to start antibiotics. Would recommend continuing with diuretics as tolerated. Incentive spirometry and Mucinex as needed. Case was discussed with Dr. Cagle Please note the above document was generated using voice recognition software. It may contain grammatical, syntax or spelling errors.Any formal questions or concerns about the content, text or information contained within the body of this dictation should be directly addressed to the provider for clarification. Laterality: left Lung location: lower lobe of lung Pneumonia type: due to unspecified organism Qualified Code(s): J18.9 - Pneumonia, unspecified organism (2) COVID-19: (3) CKD (chronic kidney disease): Chronic kidney disease stage: unspecified stage Qualified Code(s): N18.9 - Chronic kidney disease, unspecified Admission and Anticipated Discharge Date Admission Date: May 22, 2020 Subjective Patient was seen from the window while going to see another patient on this Covid unit. Case was discussed with hospitalist Review of Systems Review of Systems: Other Physical Exam Physical Exam: Patient not examined due to coronavirus restrictions and attempts to minimize exposure to staff and consider PPE. Please refer to the hospitalist exam for complete details. Results & Data Results & Data ([facility]) Vital Signs (Past 12 Hours) Vital Signs Temp Pulse Pulse Resp BP BP Pulse Ox 06/11/20 15:13 75 22 99 06/11/20 12:06 36.5 C 80 21 158/88 H 91 11/19/20 11:25 74 18 91 06/11/20 11:10 75 18 90 06/11/20 08:00 74 06/11/20 07:36 36.4 C L 78 18 150/97 H 90 06/11/20 04:29 36.7 C 77 18 126/70 93 PG Care Time/CCT Total # of Minutes Spent Total Time Spent with Patient: Total time spent is greater than 50% in coordination of care (as documented) at patient's floor/unit and/or counseling patient: Coding Level of Care Code 58461 Subseq Hosp Care Lvl 2 Diagnoses Pneumonia J18.9 Laterality: left Lung location: lower lobe of lung Pneumonia type: due to unspecified organism COVID-19 U07.1 CKD (chronic kidney disease) N18.9 Chronic kidney disease stage: unspecified stage
--- NOTE | 2020-06-11 20:30 | Hospitalist Progress Note ---
Date of Service June 11, 2020 Assessment & Plan (1) Acute respiratory failure with hypoxia: Admitted almost 3 weeks ago with covid pneumonia. Had acute respiratory distress syndrome with severe hypoxic respiratory failure on admission. Received one unit of conv plasma on 05/27. Has been receiving dexamethasone since that time. Changed steroid taper to reflect pulm recommendations. Not a candidate for remdesivir 2/2 renal failure. Continues on high flow oxygen supplementation since that time and reports that he is starting to improve. He is DNR/DNI. 06/11-CXR reveals worsened pulmonary edema/infiltrates. Exam is more consistent with pulmonary edema. Cont Lasix BID as long as kidney function continues to improve, and may need to increase this if oxygen needs start to worsen. I did lift the fluid restriction from the standpoint of quality of life at his request. Would not add additional antibiotics as the patient has already had a significant course as noted below. Discussed these decisions with the energy trader, Dr. Lawson. (2) Pneumonia due to COVID-19 virus: He completed a robust antibiotic course while admitted. (Doxycycline 100mg BID 5 dys, stopped for 2, resumed 05/30 for 7 full days, Ceftriaxone x 14 days, Cefepime for an additional 3 days after the ceftriaxone completed, and Flagyl for 8 days.) Cont care plan as outlined above with supportive care measures and steroids. Cont scheduled Lasix as creatinine is coming down to around baseline and patient reports feeling improved. (3) XOCHITL (acute kidney injury): XOCHITL in setting of CKD 2/2 ATN in setting of COVID infection-creatinine continues to improve. Cont Lasix 20 IV BID for now. (4) Diabetes mellitus type I: Continue insulin and lantus during admission. A1c is 8.3. There is some steroid induced hyperglycemia present and ongoing. His glucose levels are somewhat uncontrolled. I spoke with the glycemic pharmacist about this and she will tighten his coverage and perform two additional checks with coverage as needed overnight. Steroid taper will only last an additional 5 days. (5) Thrush, oral: Likely from anesthesia tech steroids. Cont Nystatin swish and swallow regimen for 10 days. This may help to improve his PO intake. (6) Diabetic neuropathy: Home dose gabapentin was 600mg PO QID decreased to 300mg PO BID becuase of renal insufficiency. Can only give max 300mg PO TID dosing for now with current renal function. Cont scheduled Tylenol and PRN oxy for discomfort with minimization of narcotic with current respiratory status. (7) Hypothyroidism: chronic, stable, Continue levothyroxine per home regimen. (8) Depression: chronic, stable. Pt appears encouraged today and in good spirits. Cont Prozac per home regimen. (9) DVT prophylaxis: Heparin SQ DNR/DNI Dipso-cont hopspitalization/PCU status, still requiring high flow oxygen supplementation. Prognosis poor but continuing treatment and supportive care at this time. Oxygen needs are slightly improved. Kenya Cagle DO [facility] Hospitalist Admission and Anticipated Discharge Date Admission Date: May 22, 2020 Subjective 55 yo M hospitalized for COVID pneumonia feels tired today but still doing ok CXR this morning with some additional fluid seen bilaterally This was corroborated on exam, however, oxygen needs are improved today Neuropathy still an issue for him but Tylenol helped him Fluid restriction was lifted at his request. Denies CP, diarrhea, or other issues when systems were reviewed. Review of Systems Review of Systems: All systems reviewed & are unremarkable except as noted in Subjective Physical Exam Physical Exam: CONSTITUTIONAL: WNWD, vitals as above, generally thin, inmate in restraints. EYES: normal conjunctivae, no scleral icterus ENT: external ear and nose normal, tongue with whitish substance all over it consistent with thrush. NECK: trachea midline RESPIRATORY: normal respiratory effort on high flow oxygen supplementation, easily desaturates with speaking. Crackles bilaterally, otherwise no wheezes. CARDIOVASCULAR: regular rate and rhythm, S1 and 2 heard without murmurs, gallops or rubs, no JVD, no peripheral edema GASTROINTESTINAL: soft, nontender, nondistended, no guarding MUSCULOSKELETAL: generalized weakness, head is normocephalic and atraumatic SKIN: warm and dry NEUROLOGIC: CN 2-12 grossly intact, normal cognition, normal speech, no gross focal deficits. PSYCHIATRIC: alert cooperative and answering questions appropriately. Results & Data Results & Data ([facility]) Vital Signs (Past 12 Hours) Vital Signs Temp Pulse Resp BP BP Pulse Ox 06/11/20 20:16 36.6 C 73 15 149/86 H 96 06/11/20 18:49 77 19 92 06/11/20 16:42 75 15 138/79 91 06/11/20 15:13 75 22 99 06/11/20 12:06 36.5 C 80 21 158/88 H 91 06/11/20 11:25 74 18 91 06/11/20 11:10 75 18 90 Laboratory Results Short CBC 06/11/20 Range/Units 05:54 WBC 13.00 H (4.8-10.8) K/uL Hgb 9.1 L (14.0-18.0) g/dL Hct 28.5 L (42-52) % Plt Count 520 H (130-400) K/uL BMP 06/11/20 05:54 Sodium 143 Potassium 4.2 Chloride 112 H Carbon Dioxide 25 BUN 91 H Creatinine 2.61 H Glucose 190 H Calcium 8.7 Diagnostic Findings [facility], [id number] XRay Report Patient: MARIELA ROSE [id number] Date: 05/22/20MR#: [id number]: BOX AAcct ID:[id number]: Date: 1965[facility] Zip: [place], [place] [address]Qlh: 55Location: 2ESex: MRoom/Bed: [address] Phy: Kenya Cagle, DODiagnosis: FEVERPri Phy: [facility]Service Date: 06/11/20Fam Phy:Interpreting Phy: Villa LeongAdmit Phy: Esequiel Wayne MD Ordering Phy: Kenya Cagle DO cc: ~ XR chest 1V portable HISTORY: 55 years-old Male monitor progress, +persistent hypoxia, +cov-19 acute shortness of breath COMPARISON: Chest radiograph 06/05/2020, CTA chest 12/09/2016. TECHNIQUE: Portable AP view of the chest FINDINGS: Moderate cardiomegaly. No pneumothorax. Progressively worsened mixed interstitial and alveolar opacities with consolidation most pronounced in the right lung base. No large pleural effusion. Mild emphysema. Previously described 12 mm nodular opacity of the left lung base is better seen on comparison. Degenerative changes of the shoulders and spine. IMPRESSION: 1. Moderately progressed bilateral mixed interstitial and alveolar opacities suggestive of multifocal pneumonia. Superimposed pulmonary edema would be difficult to exclude. 2. Cardiomegaly. 3. Emphysema. ACT 112: Negative or not required by law. The above report was generated using voice recognition software. It may contain grammatical, syntax or spelling errors. Electronically signed by: Jabari Leong M.D. 06/11/2020 10:44 AM Dictated: 06/11/20 1041Transcribed: 06/11/20 1041 Medications Administered Current Inpatient Medications Acetaminophen (Acetaminophen 500 Mg Tab) 1,000 mg PO Q8H MARY Stop: 07/10/20 21:59 Last Admin: 06/11/20 13:40 Dose: 1,000 mg Documented by: Albuterol (Albuterol Hfa 8 Gm Inhaler) 2 puffs INH Q4R PRN PRN Reason: shortness of breath Stop: 06/28/20 16:37 Last Admin: 06/09/20 11:23 Dose: 2 puffs Documented by: Aspirin (Aspirin 81 Mg Ectab) 81 mg PO DAILY MARY Stop: 06/22/20 08:59 Last Admin: 06/11/20 09:45 Dose: 81 mg Documented by: Atorvastatin Calcium (Atorvastatin 40 Mg Tab) 80 mg PO HS MARY Stop: 06/22/20 20:59 Last Admin: 06/10/20 21:47 Dose: 80 mg Documented by: Dextrose (Dextrose 50% 50 Ml Syringe) 25 - 50 ml IV UD PRN; Protocol PRN Reason: Hypoglycemia Protocol Stop: 06/22/20 01:29 Last Admin: 05/29/20 21:38 Dose: 50 ml Documented by: Fludrocortisone Acetate (Fludrocortisone Acetate 0.1 Mg Tab) 0.3 mg PO QAM MARY Stop: 07/03/20 08:59 Last Admin: 06/11/20 09:45 Dose: 0.3 mg Documented by: Fluoxetine HCl (Fluoxetine Hcl 20 Mg Cap) 40 mg PO DAILY MARY Stop: 06/22/20 08:59 Last Admin: 06/11/20 09:46 Dose: 40 mg Documented by: Gabapentin (Gabapentin 300 Mg Cap) 300 mg PO TID MARY Stop: 07/11/20 08:59 Last Admin: 06/11/20 13:40 Dose: 300 mg Documented by: Glucagon (Glucagon For Inj 1 Mg Vial) 1 mg SQ UD PRN; Protocol PRN Reason: Hypoglycemia Protocol Stop: 06/22/20 01:29 Glucose (Glucose 40% Gel 15 Gm Tube) 15 - 30 gm PO UD PRN; Protocol PRN Reason: Hypoglycemia Protocol Stop: 06/22/20 01:29 Glucose (Glucose 10 Tabs/Tube) 4 - 8 tabs PO UD PRN; Protocol PRN Reason: Hypoglycemia Protocol Stop: 06/22/20 01:29 Last Admin: 05/29/20 21:15 Dose: 4 tabs Documented by: Heparin Sodium (Beef Lung) (Heparin 10 Unit/Ml 5 Ml Flush) 5 ml FLUSH PRN PRN PRN Reason: Flush Stop: 07/03/20 22:44 Heparin Sodium (Porcine) (Heparin Sod 5,000 Unit/0.5 Ml Vial) 5,000 units SQ Q12 [facility] Stop: 07/03/20 08:59 Last Admin: 06/11/20 09:34 Dose: 5,000 units Documented by: Hydralazine HCl (Hydralazine 10 Mg Tab) 10 mg PO Q6H PRN PRN Reason: Hypertension/ SBP >160 Stop: 07/01/20 18:44 Furosemide 20 mg/ Syringe 2 mls @ 4 mls/min IV BID17 [facility] Stop: 07/05/20 08:59 Last Admin: 06/11/20 16:44 Dose: 4 mls/min Documented by: Insulin Aspart (Insulin Aspart 100 Units/Ml 3 Ml Pen) 0 units SC [facility]; Protocol Stop: 07/10/20 07:29 Last Admin: 06/11/20 17:52 Dose: 5 units Documented by: Insulin Aspart (Insulin Aspart 100 Units/Ml 3 Ml Pen) 0 units SC TODAY @0000,0400 [facility]; Protocol Stop: 06/12/20 04:01 Levothyroxine Sodium (Levothyroxine Sodium 137 Mcg Tablet) 137 mcg PO DAILYBB [facility] Stop: 06/22/20 06:29 Last Admin: 06/11/20 06:06 Dose: 137 mcg Documented by: Miscellaneous (Carbohydrates For Hypoglycemia ) 15 - 30 gm PO UD PRN PRN Reason: Hypoglycemia Treatment Stop: 06/22/20 01:29 Last Admin: 05/29/20 17:10 Dose: 15 gm Documented by: Miscellaneous Information (Pharmacy Glycemic Mgmt Consult) 1 ea N/A UD PRN PRN Reason: Consult Stop: 06/23/20 15:06 Multi-Ingredient Cream (Eucerin Cr 120 Gm Jar) 1 appln EXT BID PRN PRN Reason: Rash Stop: 06/28/20 11:00 Multivitamins (Multivitamin Tab) 1 tab PO QAM [facility] Stop: 07/03/20 08:59 Last Admin: 06/11/20 09:45 Dose: 1 tab Documented by: Nystatin (Nystatin Susp 500,000 U/5 Ml Udc) 5 ml PO QID [facility] Stop: 06/20/20 21:59 Last Admin: 06/11/20 16:44 Dose: 5 ml Documented by: Ondansetron HCl (Ondansetron Inj 2 Mg/Ml 2 Ml Vial) 4 mg IV Q6H PRN PRN Reason: Nausea Stop: 06/22/20 00:45 Last Admin: 06/08/20 07:48 Dose: 4 mg Documented by: Oxycodone HCl (Oxycodone Hcl Ir 5 Mg Tab (Immediate Release)) 5 mg PO Q8H PRN PRN Reason: severe neuropathic pain Stop: 06/24/20 21:05 Pantoprazole Sodium (Pantoprazole 40 Mg Tab) 40 mg PO QAM [facility] Stop: 06/26/20 18:29 Last Admin: 06/11/20 09:46 Dose: 40 mg Documented by: Potassium Chloride (Potassium Chloride Crtab 20 Meq Tabcr) 20 meq PO BID [facility] Stop: 07/08/20 10:29 Last Admin: 06/11/20 09:45 Dose: 20 meq Documented by: Prednisone (Prednisone 20 Mg Tab) 20 mg PO QAM [facility] Stop: 06/15/20 08:59 Prednisone (Prednisone 10 Mg Tablet) 10 mg PO QAM [facility] Stop: 06/18/20 08:59 Thiamine HCl (Thiamine Hcl 100 Mg Tab) 100 mg PO BID [facility] Stop: 06/28/20 08:59 Last Admin: 06/11/20 09:44 Dose: 100 mg Documented by: Vitamin B Complex/Folic Acid (Nephrocaps) 1 cap PO DAILY [facility] Stop: 06/22/20 08:59 Last Admin: 06/11/20 09:46 Dose: 1 cap Documented by:
[2020-06-11] MEDS: ATORVASTATIN 40 MG TAB PO SCH (21:12)
[2020-06-12] MEDS: INSULIN ASPART 100 UNITS/ML 3 ML PEN SC SCH ×5 (00:30→20:15)
[2020-06-12] MEDS: LEVOTHYROXINE SODIUM 137 MCG TABLET PO SCH (05:54)
[2020-06-12] MEDS: ACETAMINOPHEN 500 MG TAB PO SCH ×3 (05:54→21:21)
[2020-06-12 07:39] LABS: BUN Creatinine Ratio 38.2 (10-20); Calcium 8.6 mg/dl (8.5-10.1); Creatinine Clr Calc Pharmacy 34.7 ml/min; Est GFR (African American) 32.1; Est GFR (Non-African American) 27.7; Potassium 4.8 mmol/L (3.5-5.1)
[2020-06-12] MEDS ORDERED: INSULIN HUMAN REGULAR PER UNIT 5 UNITS in SYRINGE 4.95 ML IV ONE ×2 (07:45→11:30)
[2020-06-12 07:50] LABS: Beta-Hydroxybutyrate 5.73 mg/dl (0.2-2.81)
[2020-06-12] MEDS ORDERED: INSULIN GLARGINE SOLOSTAR 100 UNITS/ML 3 ML PEN SC ONE ×2 (08:00→16:00)
[2020-06-12] MEDS ORDERED: INSULIN GLARGINE SOLOSTAR 100 UNITS/ML 3 ML PEN SC SCH (08:00)
[2020-06-12] MEDS ORDERED: INSULIN ASPART 100 UNITS/ML 3 ML PEN SC ONE (08:30)
[2020-06-12] MEDS: ASPIRIN 81 MG ECTAB PO SCH (08:50)
[2020-06-12] MEDS: HEPARIN SOD 5,000 UNIT/0.5 ML VIAL SQ SCH ×2 (08:51→20:14)
[2020-06-12] MEDS: FLUDROCORTISONE ACETATE 0.1 MG TAB PO SCH (08:51)
[2020-06-12] MEDS: FUROSEMIDE 20 MG in SYRINGE 0 ML IV SCH ×2 (08:52→17:16)
[2020-06-12] MEDS: POTASSIUM CHLORIDE CRTAB 20 MEQ TABCR PO SCH ×2 (08:52→20:15)
[2020-06-12] MEDS: MULTIVITAMIN TAB PO SCH (08:53)
[2020-06-12] MEDS: NYSTATIN SUSP 500,000 U/5 ML UDC PO SCH ×4 (08:53→20:14)
[2020-06-12] MEDS: NEPHROCAPS PO SCH (08:53)
[2020-06-12] MEDS: GABAPENTIN 300 MG CAP PO SCH ×3 (08:54→20:14)
[2020-06-12] MEDS: predniSONE 20 MG TAB PO SCH (08:55)
[2020-06-12] MEDS: FLUoxetine HCL 20 MG CAP PO SCH (08:56)
[2020-06-12] MEDS: PANTOprazole 40 MG TAB PO SCH (08:56)
[2020-06-12] MEDS: THIAMINE HCL 100 MG TAB PO SCH ×2 (08:57→20:14)
[2020-06-12] MEDS: INSULIN REGULAR 250 UNITS in SODIUM CHLORIDE 0.9% 247.5 ML IV SCH (09:52)
[2020-06-12] MEDS ORDERED: INSULIN ASPART 100 UNITS/ML 3 ML PEN SC SCH ×2 (11:30)
[2020-06-12] MEDS ORDERED: INSULIN HUMAN REGULAR PER UNIT 7 UNITS in SYRINGE 6.93 ML IV ONE ×2 (13:15→16:00)
--- NOTE | 2020-06-12 15:16 | Hospitalist Progress Note ---
Date of Service June 12, 2020 Assessment & Plan (1) Acute respiratory failure with hypoxia: Admitted almost 3 weeks ago with covid pneumonia. Had acute respiratory distress syndrome with severe hypoxic respiratory failure on admission. Received one unit of conv plasma on 05/27. Has been receiving dexamethasone since that time. Changed steroid taper to reflect pulm recommendations. Continues on prednisone taper at this time. Not a candidate for remdesivir 2/2 renal failure. Continues on high flow oxygen supplementation since that time and reports that he is starting to improve. He is DNR/DNI. 06/12-About the same with frequent desaturations with minimal exertion or speaking. Continues on the prednisone taper. Lasix on hold. Lungs clear to auscultation on exam today. (2) Pneumonia due to COVID-19 virus: He completed a robust antibiotic course while admitted. (Doxycycline 100mg BID 5 dys, stopped for 2, resumed 05/30 for 7 full days, Ceftriaxone x 14 days, Cefepime for an additional 3 days after the ceftriaxone completed, and Flagyl for 8 days.) Cont care plan as outlined above with supportive care measures and steroids. (3) Diabetes mellitus type I: Brittle diabetic with recently demonstrated difficult to manage blood sugar, especially with steroids. Pt is reliably eating as thrush is getting better. Converted him to insulin drip this morning with plans to keep him on the drip for more consistent blood sugars. Will not be transitioning him off the insulin drip until he is more stable from a breathing standpoint. Lantus and prandial boluses to be decided on by glycemic pharmacist. Infiltration of peripheral IV site today lead to hyperglycemia with glucose into the 500s. He did not develop acidosis before a new IV site was established and insulin was running through it with good effect. Blood glucose is currently coming down into normal range on the drip. (4) XOCHITL (acute kidney injury): Resolved to baseline renal function. Patient has Stage 3 CKD. Lasix on hold for now. (5) Thrush, oral: Improving. Likely from jail steroids. Cont Nystatin swish and swallow regimen for 10 days. This may help to improve his PO intake. (6) Diabetic neuropathy: Home dose gabapentin was 600mg PO QID decreased to 300mg PO BID becuase of renal insufficiency. Cont with gabapentin 300mg PO TID dosing for now with current renal function. Cont scheduled Tylenol and PRN oxy for discomfort with minimization of narcotic with current respiratory status. (7) Hypothyroidism: chronic, stable, Continue levothyroxine per home regimen. (8) Depression: chronic, stable. Cont Prozac per home regimen. (9) DVT prophylaxis: Heparin SQ DNR/DNI Dipso-cont hopspitalization/PCU status, still requiring high flow oxygen supplementation. Prognosis poor but continuing treatment and supportive care at this time. Kenya Cagle DO [facility] Hospitalist Admission and Anticipated Discharge Date Admission Date: May 22, 2020 Subjective CC: acute respiratory failure 2/2 covid pneumonia pt is doing ok tonight he is eating but desaturates with eating or with any talking or minimal exertion he is requesting fruit. started vit c,d and zinc, also neuropathy pain is "ok" Type I brittle diabetic with difficult to contorl blood sugar on steroids over last 3 days. Discussed with glycemic pharmacist my preference would be to keep him on an insulin drip PIV infiltrated today and patient became hyperglycemic with some associated nausea No evidence of AGMA/DKA. Creat soto slightly-->Lasix on hold-->lungs clear to auscultation on exam. Review of Systems Review of Systems: All systems reviewed & are unremarkable except as noted in Subjective Physical Exam Physical Exam: CONSTITUTIONAL: vitals as above, generally thin, inmate in restraints. EYES: normal conjunctivae, no scleral icterus ENT: external ear and nose normal, tongue with whitish substance all over it consistent with thrush, which is improving. NECK: trachea midline RESPIRATORY: normal respiratory effort on high flow oxygen supplementation, easily desaturates with speaking or minimal exertion. Clear to auscultation throughout. Crackles have resolved and no wheezing present. CARDIOVASCULAR: regular rate and rhythm, S1 and 2 heard without murmurs, gallops or rubs, no JVD, no peripheral edema GASTROINTESTINAL: soft, nontender, nondistended, no guarding MUSCULOSKELETAL: generalized weakness, head is normocephalic and atraumatic SKIN: warm and dry NEUROLOGIC: CN 2-12 grossly intact, normal cognition, normal speech, no gross focal deficits. PSYCHIATRIC: alert cooperative and answering questions appropriately. Results & Data Results & Data ([facility]) Vital Signs (Past 12 Hours) Vital Signs Temp Pulse Resp BP BP Pulse Ox 06/12/20 11:16 74 18 97 06/12/20 11:11 36.6 C 76 20 112/68 96 06/12/20 07:10 71 18 96 06/12/20 06:47 36.6 C 74 16 139/88 95 06/12/20 06:06 76 20 84 L 06/12/20 04:24 36.6 C 74 20 150/87 H 89 L Laboratory Results [facility] 06/12/20 06:11 Sodium 143 Potassium 4.8 Chloride 112 H Carbon Dioxide 26 BUN 96 H Creatinine 2.50 H Glucose 316 H* Calcium 8.6 Medications Administered Current Inpatient Medications Acetaminophen (Acetaminophen 500 Mg Tab) 1,000 mg PO Q8H MARY Stop: 07/10/20 21:59 Last Admin: 06/12/20 13:22 Dose: 1,000 mg Documented by: Albuterol (Albuterol Hfa 8 Gm Inhaler) 2 puffs INH Q4R PRN PRN Reason: shortness of breath Stop: 06/28/20 16:37 Last Admin: 06/09/20 11:23 Dose: 2 puffs Documented by: Aspirin (Aspirin 81 Mg Ectab) 81 mg PO DAILY MARY Stop: 06/22/20 08:59 Last Admin: 06/12/20 08:50 Dose: 81 mg Documented by: Atorvastatin Calcium (Atorvastatin 40 Mg Tab) 80 mg PO HS MARY Stop: 06/22/20 20:59 Last Admin: 06/11/20 21:12 Dose: 80 mg Documented by: Dextrose (Dextrose 50% 50 Ml Syringe) 25 - 50 ml IV UD PRN; Protocol PRN Reason: Hypoglycemia Protocol Stop: 06/22/20 01:29 Last Admin: 05/29/20 21:38 Dose: 50 ml Documented by: Fludrocortisone Acetate (Fludrocortisone Acetate 0.1 Mg Tab) 0.3 mg PO QAM MARY Stop: 07/03/20 08:59 Last Admin: 06/12/20 08:51 Dose: 0.3 mg Documented by: Fluoxetine HCl (Fluoxetine Hcl 20 Mg Cap) 40 mg PO DAILY MARY Stop: 06/22/20 08:59 Last Admin: 06/12/20 08:56 Dose: 40 mg Documented by: Gabapentin (Gabapentin 300 Mg Cap) 300 mg PO TID MARY Stop: 07/11/20 08:59 Last Admin: 06/12/20 13:24 Dose: 300 mg Documented by: Glucagon (Glucagon For Inj 1 Mg Vial) 1 mg SQ UD PRN; Protocol PRN Reason: Hypoglycemia Protocol Stop: 06/22/20 01:29 Glucose (Glucose 40% Gel 15 Gm Tube) 15 - 30 gm PO UD PRN; Protocol PRN Reason: Hypoglycemia Protocol Stop: 06/22/20 01:29 Glucose (Glucose 10 Tabs/Tube) 4 - 8 tabs PO UD PRN; Protocol PRN Reason: Hypoglycemia Protocol Stop: 06/22/20 01:29 Last Admin: 05/29/20 21:15 Dose: 4 tabs Documented by: Heparin Sodium (Beef Lung) (Heparin 10 Unit/Ml 5 Ml Flush) 5 ml FLUSH PRN PRN PRN Reason: Flush Stop: 07/03/20 22:44 Heparin Sodium (Porcine) (Heparin Sod 5,000 Unit/0.5 Ml Vial) 5,000 units SQ Q12 MARY Stop: 07/03/20 08:59 Last Admin: 06/12/20 08:51 Dose: 5,000 units Documented by: Hydralazine HCl (Hydralazine 10 Mg Tab) 10 mg PO Q6H PRN PRN Reason: Hypertension/ SBP >160 Stop: 07/01/20 18:44 Furosemide 20 mg/ Syringe 2 mls @ 4 mls/min IV BID17 [facility] Stop: 07/05/20 08:59 Last Admin: 06/12/20 08:52 Dose: 4 mls/min Documented by: Insulin Human Regular 250 (units/ Sodium Chloride) 250 mls @ 7 mls/hr IV .Q24H MARY; Protocol Stop: 07/12/20 08:29 Last Titration: 06/12/20 14:09 Dose: 7 units/hr, 7 mls/hr Documented by: Insulin Aspart (Insulin Aspart 100 Units/Ml 3 Ml Pen) 0 units SC ACHS [facility]; Protocol Stop: 07/12/20 11:29 Last Admin: 06/12/20 13:19 Dose: 7 units Documented by: Insulin Glargine (Insulin Glargine Solostar 100 Units/Ml 3 Ml Pen) 10 units SC DAILY@0800 [facility]; Protocol Stop: 07/12/20 07:59 Last Admin: 06/12/20 08:48 Dose: 10 units Documented by: Levothyroxine Sodium (Levothyroxine Sodium 137 Mcg Tablet) 137 mcg PO DAILYBB [facility] Stop: 06/22/20 06:29 Last Admin: 06/12/20 05:54 Dose: 137 mcg Documented by: Miscellaneous (Carbohydrates For Hypoglycemia ) 15 - 30 gm PO UD PRN PRN Reason: Hypoglycemia Treatment Stop: 06/22/20 01:29 Last Admin: 05/29/20 17:10 Dose: 15 gm Documented by: Miscellaneous Information (Pharmacy Glycemic Mgmt Consult) 1 ea N/A UD PRN PRN Reason: Consult Stop: 06/23/20 15:06 Multi-Ingredient Cream (Eucerin Cr 120 Gm Jar) 1 appln EXT BID PRN PRN Reason: Rash Stop: 06/28/20 11:00 Multivitamins (Multivitamin Tab) 1 tab PO [facility] Stop: 07/03/20 08:59 Last Admin: 06/12/20 08:53 Dose: 1 tab Documented by: Nystatin (Nystatin Susp 500,000 U/5 Ml [facility]) 5 ml PO QID [facility] Stop: 06/20/20 21:59 Last Admin: 06/12/20 13:20 Dose: 5 ml Documented by: Ondansetron HCl (Ondansetron Inj 2 Mg/Ml 2 Ml Vial) 4 mg IV Q6H PRN PRN Reason: Nausea Stop: 06/22/20 00:45 Last Admin: 06/08/20 07:48 Dose: 4 mg Documented by: Oxycodone HCl (Oxycodone Hcl Ir 5 Mg Tab (Immediate Release)) 5 mg PO Q8H PRN PRN Reason: severe neuropathic pain Stop: 06/24/20 21:05 Pantoprazole Sodium (Pantoprazole 40 Mg Tab) 40 mg PO [facility] Stop: 06/26/20 18:29 Last Admin: 06/12/20 08:56 Dose: 40 mg Documented by: Potassium Chloride (Potassium Chloride Crtab 20 Meq Tabcr) 20 meq PO BID [facility] Stop: 07/08/20 10:29 Last Admin: 06/12/20 08:52 Dose: 20 meq Documented by: Prednisone (Prednisone 20 Mg Tab) 20 mg PO [facility] Stop: 06/15/20 08:59 Last Admin: 06/12/20 08:55 Dose: 20 mg Documented by: Prednisone (Prednisone 10 Mg Tablet) 10 mg PO [facility] Stop: 06/18/20 08:59 Thiamine HCl (Thiamine Hcl 100 Mg Tab) 100 mg PO BID [facility]ARY Stop: 06/28/20 08:59 Last Admin: 06/12/20 08:57 Dose: 100 mg Documented by: Vitamin B Complex/Folic Acid (Nephrocaps) 1 cap PO DAILY [facility]ARY Stop: 06/22/20 08:59 Last Admin: 06/12/20 08:53 Dose: 1 cap Documented by:
--- NOTE | 2020-06-12 16:01 | Pharmacy Report ---
Pharmacy Glycemic Short Note 2 - Date of Service June 12, 2020 - Glycemic Short BSG Results (Last 24 hours): 06/11/20 06/11/20 06/11/20 16:21 20:20 20:22 Glucose POC Glucose 168 H 307 H* 295 H 06/12/20 06/12/20 06/12/20 00:25 04:21 04:23 Glucose POC Glucose 276 H 306 H* 309 H* 06/12/20 06/12/20 06/12/20 06:11 07:26 07:27 Glucose 316 H* POC Glucose 348 H* 378 H* 06/12/20 06/12/20 06/12/20 07:27 11:02 11:03 Glucose POC Glucose 387 H* 467 H* 449 H* 06/12/20 06/12/20 06/12/20 12:00 12:01 12:59 Glucose POC Glucose 427 H* 435 H* 477 H* 06/12/20 06/12/20 06/12/20 13:00 14:02 14:04 Glucose POC Glucose 514 H* 534 H* 538 H* 06/12/20 06/12/20 15:06 15:07 Glucose POC Glucose 472 H* 508 H* Outpatient Anti-diabetic Regimen: * Lantus 15 units SC qAM, 8 units SC qPM * A1c = 8.3 % on 05/23/20 ASSESSMENT: 06/12 * One BSG > 300 mg/dL yesterday and BSG again >300 mg/dL this AM despite increase in Lantus and despite overnight checks * Discussed extensively w Dr. Cagle early this AM - benefits of insulin drip at this point with labile T1DM, steroid taper, BSG >300 mg/dL, and severe illness outweigh drawbacks with frequent titrations. We also discussed whether to continue Lantus - usually do not continue SQ basal insulin for a patient on an insulin drip. However, with previous labile BSG's noted, discussed best to continue *low dose* Lantus *not* intended to provide all of the patient's basal needs, to help eventual transition off of the drip as significant fluctuations in basal insulin previously this admission caused both severe hypo- and hyper-glycemia. Insulin drip initiated, higher bolus dose ordered, and low dose Lantus was ordered this AM as discussed * Have since discussed multiple times with RN (Mt) - BSG's have continued to climb. In response, have escalated therapy more than usual hyperglycemia protocol (for non-DKA, non-HHS), providing additional IV boluses (additional 5 units then additional 7 units) and have also been titrating rate up faster that usual hyperglycemia protocol. Despite frequent and aggressive interventions with escalating IV doses, BSG's have continued to climb. Discussed w Mt r/e IV site - Mt noted that there was a brief ~30 minute period where the IV may have infiltrated at around 1330 today, but otherwise good blood return noted * Discussed again with Dr. Cagle - concern that BSG's are behaving as if he is not adequately receiving the IV insulin which may or may not be due to a line issue. Plan is to get new line, get a BSG then give 0.1 unit/kg bolus in that new line, switch drip now running at 10 units/hr to the new line, and continue to titrate. Plan is to also increase goal range to DKA goal range and assess electrolytes r/e DKA concerns. Dr. Cagle to order/assess. Also - we discussed giving additional Lantus up to the dose the patient was receiving while on dexamethasone 6 mg as there is concern with IV access. 20 units Lantus ordered. This plan was also then verbally discussed with Mt * Will leave out for 2nd shift 06/11 * Post-prandial BSG's well controlled yesterday with revised CHO ratio - no change to Novolog CHO ratio. But will tighten correction factor now to help make up for basal deficiency causing hyperglycemia * AM fasting BSG elevated, as anticipated due to late admin of steroids yesterday (see 06/10 comment). Will increase dose today. Will add two overnight checks 06/10 * Patient received dexamethasone 6 mg IV daily x17 days. This is 40 mg in terms of prednisone equivalents. Although this is not *greater than* 3 weeks, it is close to 3 weeks and therefore patient may have an element of HPA axis suppression which would require a steroid taper to prevent glucocorticoid withdrawal. Discussed w Dr. Cagle - plan currently is to start prednisone taper 30 mg po daily x7 days, 20 mg po daily x7 days, 10 mg po daily x7 days. This may require adjustment/slowing taper depending on patient tolerability. * Lantus dose reduced this AM - this dose may not be enough with prednisone admin this afternoon, but instead of giving a unit or two of Lantus in supplement, will schedule two overnight checks to provide additional "basal" insulin if needed * Will tighten the Novolog CHO ration slightly with steroids being resumed, but not quite to what it was previously while on dexamethasone 6 mg IV daily 06/09 * Dexamethasone scheduled to stop after dose this AM. Therefore will adjust regimen starting tomorrow AM. Will reduce Lantus and significantly loosen Novolog parameters. Further loosening may eventually be required as effects of dexamethasone gradually wear off 06/07 * Dexamethasone 6 mg IV daily continues * Labile BSG's noted - hypoglycemia noted 06/05 and severe hyperglycemia 06/06. Yesterday, BSG's improved - ranged 157-271 mg/dL * AM fasting BSG in goal range - will continue Lantus * Post-prandial elevations yesterday noted, but none >300 mg/dL and hypoglycemia occurred on 06/05 with current CHO ratio. Therefore will not tighten further. 06/06: * Gilbert received 36 units of insulin yesterday (this is significantly less than previous days) * 20 units of basal * 16 units of bolus * BSGs: 138, 57, 113, 243 mg/dL * remains on dexamethasone 6 mg IV daily * Fasting BSG this AM was 337 mg/dL. I suspect this is due to basal deficiency. Patient received 30-32 units of basal insulin 06/02 through 06/04 but only 20 units yesterday (~35% reduction). Patient will resume dose of 30 units of basal today. I will add a small dose of NPH this morning only to help cover dexamethasone while patient is overcoming basal deficiency. * Post prandial BSGs were on the lower end yesterday with the exception of bedtime BSG of 243 mg/dL. Patient consumed 15 grams of carbs with dinner that were not covered with Novolog, therefore this elevation is to be expected. No changes to Novolog. 06/05: * Gilbert received 65 units of insulin total yesterday * 32 units basal + 33 units bolus * BSGs were [phone] mg/dL * BSGs trending upwards throughout the day * Fasting BSG this AM was controlled at 138 mg/dL * Lunchtime BSG was 52 mg/dL with a recheck of 57 mg/dL * Patient was not symptomatic and did not require treatment. BSG increased with lunch meal. * Each of the last two days, patient's AM and lunch BSGs have been low or borderline low which may be secondary to BID Lantus * Will attempt front-loading all of his basal insulin in the AM when he get the dexamethasone 06/04: * Patient's fasting and lunchtime BSG well controlled today after more heavily weighting AM Levemir. Will continue to monitor for further adjustments. The patient appears to be very labile and BSG trends have been difficult to identify thus far. Patient continues on dexamethasone and is tolerating a diet. 06/03: * Patient did trend down nicely yesterday with addition of levemir. Fasting BSG this morning was also well controlled. However, lunchtime BSG was significantly elevated, but AM novolog dose may not have been adequate. Patient remains on steroids and is tolerating a diet. Novolog was slightly tightened for dinnertime, however I am hesitant to make too many changes as patient was been labile in the past. Will assess a full 24 hours on current regimen and assess need for further changes tomorrow. May consider transition to NPH. PLAN FOR INPATIENT GLYCEMIC CONTROL: * Insulin regular 5 units IV x1 this AM, 5 units IV x1, 7 units IV x1 and now again 7 units IV x1 IV bolus * Insulin drip - goal range 150-250 mg/dL. Currently running at 10 units/hr * Basal insulin * Lantus 10 units SQ qAM. Additional 20 units NOW * Bolus insulin * Nutritional / Prandial insulin per carb ratio of 1 unit per 5 or 6 grams CHO consumed, depending on insulin drip rate Plan for discharge: Dependent on changes in inpatient insulin requirements with starting steroid taper
[2020-06-12 16:48] LABS: BUN Creatinine Ratio 36.6 (10-20); Calcium 8.6 mg/dl (8.5-10.1); Creatinine Clr Calc Pharmacy 31.3 ml/min; Est GFR (African American) 28.3; Est GFR (Non-African American) 24.4; Magnesium 2.6 mg/dl (1.8-2.4); Phosphorus 3.8 mg/dl (2.5-4.9); Potassium 4.8 mmol/L (3.5-5.1)
[2020-06-12 17:06] LABS: Beta-Hydroxybutyrate 1.46 mg/dl (0.2-2.81)
[2020-06-12] MEDS ORDERED: ONDANSETRON INJ 2 MG/ML 2 ML VIAL IV ONE (18:23)
[2020-06-12] MEDS: ASCORBIC ACID 500 MG TAB PO SCH (20:14)
[2020-06-12] MEDS: ZINC SULFATE 220 MG CAPSULE PO SCH (20:15)
[2020-06-12] MEDS: CHOLECALCIFEROL 1,000 UNITS 25 MCG TAB PO SCH (20:15)
[2020-06-12] MEDS: ATORVASTATIN 40 MG TAB PO SCH (20:15)
[2020-06-13] MEDS ORDERED: INSULIN GLARGINE SOLOSTAR 100 UNITS/ML 3 ML PEN SC ONE
[2020-06-13] MEDS: INSULIN ASPART 100 UNITS/ML 3 ML PEN SC SCH ×6 (00:19→22:05)
[2020-06-13] MEDS: ACETAMINOPHEN 500 MG TAB PO SCH ×3 (06:08→22:10)
[2020-06-13] MEDS: LEVOTHYROXINE SODIUM 137 MCG TABLET PO SCH (06:08)
[2020-06-13] MEDS: ASPIRIN 81 MG ECTAB PO SCH (08:45)
[2020-06-13] MEDS: FLUDROCORTISONE ACETATE 0.1 MG TAB PO SCH (08:46)
[2020-06-13] MEDS: FLUoxetine HCL 20 MG CAP PO SCH (08:47)
[2020-06-13] MEDS: HEPARIN SOD 5,000 UNIT/0.5 ML VIAL SQ SCH ×2 (08:47→20:21)
[2020-06-13] MEDS: POTASSIUM CHLORIDE CRTAB 20 MEQ TABCR PO SCH ×2 (08:48→20:22)
[2020-06-13] MEDS: NEPHROCAPS PO SCH (08:49)
[2020-06-13] MEDS: ZINC SULFATE 220 MG CAPSULE PO SCH (08:49)
[2020-06-13] MEDS: MULTIVITAMIN TAB PO SCH (08:50)
[2020-06-13] MEDS: THIAMINE HCL 100 MG TAB PO SCH ×2 (08:50→20:24)
[2020-06-13] MEDS: NYSTATIN SUSP 500,000 U/5 ML UDC PO SCH ×4 (08:50→20:23)
[2020-06-13] MEDS: ASCORBIC ACID 500 MG TAB PO SCH ×2 (08:51→22:42)
[2020-06-13] MEDS: CHOLECALCIFEROL 1,000 UNITS 25 MCG TAB PO SCH (08:51)
[2020-06-13] MEDS: predniSONE 20 MG TAB PO SCH (08:51)
[2020-06-13] MEDS: PANTOprazole 40 MG TAB PO SCH (08:52)
[2020-06-13] MEDS: GABAPENTIN 300 MG CAP PO SCH ×3 (08:52→20:23)
--- NOTE | 2020-06-13 09:16 | XRay Report ---
XR chest 1V portable HISTORY: hypoxia, +covid pneumonia progress COMPARISON: Chest 06/11/2020. FINDINGS: No pneumothorax. The heart remains mildly enlarged. Bilateral hazy airspace opacities, left greater than right are again noted. This appears of slightly improved within the right lung base. Th ere may be trace bilateral pleural effusions. IMPRESSION: Redemonstration of the bilateral hazy airspace opacities consistent with a viral pneumonia. This may have slightly improved within the right lung base. ACT 112: Negative or not required by law. Electronically signed by: Tani Contreras M.D. 06/13/2020 9:15 AM
[2020-06-13] MEDS: INSULIN REGULAR 250 UNITS in SODIUM CHLORIDE 0.9% 247.5 ML IV SCH (12:40)
--- NOTE | 2020-06-13 14:17 | Pharmacy Report ---
Pharmacy Glycemic Short Note 2 - Date of Service June 13, 2020 - Glycemic Short BSG Results (Last 24 hours): 06/12/20 06/12/20 06/12/20 15:06 15:07 16:00 Glucose POC Glucose 472 H* 508 H* 456 H* 06/12/20 06/12/20 06/12/20 16:03 16:06 17:08 Glucose 440 H* POC Glucose 470 H* 328 H* 06/12/20 06/12/20 06/12/20 17:09 18:04 19:07 Glucose POC Glucose 367 H* 264 H 245 H 06/12/20 06/12/20 06/12/20 20:09 21:00 22:00 Glucose POC Glucose 200 H 154 H 112 H 06/12/20 06/12/20 06/12/20 22:18 22:33 22:48 Glucose POC Glucose 136 H 121 H 117 H 06/12/20 06/12/20 06/13/20 23:03 23:18 00:12 Glucose POC Glucose 141 H 155 H 170 H 06/13/20 06/13/20 06/13/20 03:45 06:06 07:31 Glucose POC Glucose 185 H 199 H 179 H 06/13/20 06/13/20 06/13/20 08:38 09:35 10:34 Glucose POC Glucose 190 H 215 H 200 H 06/13/20 06/13/20 06/13/20 11:35 12:35 13:02 Glucose POC Glucose 191 H 149 H 160 H 06/13/20 13:29 Glucose POC Glucose 152 H Outpatient Anti-diabetic Regimen: * Lantus 15 units SC qAM, 8 units SC qPM * A1c = 8.3 % on 05/23/20 ASSESSMENT: 06/13/20 * Patient was transitioned off insulin drip early this morning and given 20 units of Lantus. After discussion with physician, insulin infusion resumed at 3.5 units/hr. Has now remained steady at 5 units/hr with BSGs in the mid - 100s. * At this point, will continue with Lantus 10 units (starting 06/13/20) plus insulin infusion. Do not want to stop insulin infusion due to fluctuating blood sugars. Please do not stop. 06/12 * One BSG > 300 mg/dL yesterday and BSG again >300 mg/dL this AM despite increase in Lantus and despite overnight checks * Discussed extensively w Dr. Cagle early this AM - benefits of insulin drip at this point with labile T1DM, steroid taper, BSG >300 mg/dL, and severe illness outweigh drawbacks with frequent titrations. We also discussed whether to continue Lantus - usually do not continue SQ basal insulin for a patient on an insulin drip. However, with previous labile BSG's noted, discussed best to continue *low dose* Lantus *not* intended to provide all of the patient's basal needs, to help eventual transition off of the drip as significant fluctuations in basal insulin previously this admission caused both severe hypo- and hyper-glycemia. Insulin drip initiated, higher bolus dose ordered, and low dose Lantus was ordered this AM as discussed * Have since discussed multiple times with RN (Mt) - BSG's have continued to climb. In response, have escalated therapy more than usual hyperglycemia protocol (for non-DKA, non-HHS), providing additional IV boluses (additional 5 units then additional 7 units) and have also been titrating rate up faster that usual hyperglycemia protocol. Despite frequent and aggressive interventions with escalating IV doses, BSG's have continued to climb. Discussed w Mt r/e IV site - Mt noted that there was a brief ~30 minute period where the IV may have infiltrated at around 1330 today, but otherwise good blood return noted * Discussed again with Dr. Cagle - concern that BSG's are behaving as if he is not adequately receiving the IV insulin which may or may not be due to a line issue. Plan is to get new line, get a BSG then give 0.1 unit/kg bolus in that new line, switch drip now running at 10 units/hr to the new line, and continue to titrate. Plan is to also increase goal range to DKA goal range and assess electrolytes r/e DKA concerns. Dr. Cagle to order/assess. Also - we discussed giving additional Lantus up to the dose the patient was receiving while on dexamethasone 6 mg as there is concern with IV access. 20 units Lantus ordered. This plan was also then verbally discussed with Mt * Will leave out for 2nd shift 06/11 * Post-prandial BSG's well controlled yesterday with revised CHO ratio - no change to Novolog CHO ratio. But will tighten correction factor now to help make up for basal deficiency causing hyperglycemia * AM fasting BSG elevated, as anticipated due to late admin of steroids yesterday (see 06/10 comment). Will increase dose today. Will add two overnight checks 06/10 * Patient received dexamethasone 6 mg IV daily x17 days. This is 40 mg in terms of prednisone equivalents. Although this is not *greater than* 3 weeks, it is close to 3 weeks and therefore patient may have an element of HPA axis suppression which would require a steroid taper to prevent glucocorticoid withdrawal. Discussed w Dr. Cagle - plan currently is to start prednisone taper 30 mg po daily x7 days, 20 mg po daily x7 days, 10 mg po daily x7 days. This may require adjustment/slowing taper depending on patient tolerability. * Lantus dose reduced this AM - this dose may not be enough with prednisone admin this afternoon, but instead of giving a unit or two of Lantus in supplement, will schedule two overnight checks to provide additional "basal" insulin if needed * Will tighten the Novolog CHO ration slightly with steroids being resumed, but not quite to what it was previously while on dexamethasone 6 mg IV daily PLAN FOR INPATIENT GLYCEMIC CONTROL: * Insulin drip - goal range 150-250 mg/dL. Currently running at 5 units/hr * Basal insulin * Lantus 10 units SQ qAM. * Bolus insulin * Nutritional / Prandial insulin per carb ratio of 1 unit per 5 or 6 grams CHO consumed, depending on insulin drip rate Plan for discharge: Dependent on changes in inpatient insulin requirements with starting steroid taper
[2020-06-13] MEDS ORDERED: FUROSEMIDE 20 MG in SYRINGE 0 ML IV ONE (15:29)
--- NOTE | 2020-06-13 16:36 | Hospitalist Progress Note ---
Date of Service June 13, 2020 Assessment & Plan (1) Acute respiratory failure with hypoxia: Admitted almost 3 weeks ago with covid pneumonia. Had acute respiratory distress syndrome with severe hypoxic respiratory failure on admission. Received one unit of conv plasma on 05/27. Has been receiving dexamethasone since that time. Changed steroid taper recently. WATCH CLOSELY FOR ADRENAL INSUFFICIENCY WHEN OFF STEROIDS. Not a candidate for remdesivir 2/2 renal failure. Continues on high flow oxygen supplementation occasionally transitioning to oxymask. (2) Pneumonia due to COVID-19 virus: He completed a robust antibiotic course while admitted. (Doxycycline 100mg BID 5 dys, stopped for 2, resumed 05/30 for 7 full days, Ceftriaxone x 14 days, Cefepime for an additional 3 days after the ceftriaxone completed, and Flagyl for 8 days.) Cont care plan as outlined above with supportive care measures and steroids. (3) Diabetes mellitus type I: Brittle diabetic with recently demonstrated difficult to manage blood sugar, especially with steroids. Pt is reliably eating as thrush is getting better. Converted him to insulin drip this morning with plans to keep him on the drip for more consistent blood sugars. Will not be transitioning him off the insulin drip until he is more stable from a breathing standpoint. Lantus and prandial boluses to be decided on by glycemic pharmacist. Infiltration of peripheral IV site on 06/12 lead to hyperglycemia with glucose into the 500s. He did not develop acidosis before a new IV site was established and insulin was running through it with good effect. Blood glucose is currently coming down into normal range on the drip. (4) CKD (chronic kidney disease), stage III: Resolved to baseline renal function. Patient has Stage 3 CKD. Lasix on hold for now. (5) Thrush, oral: Improving. Likely from equipment [employer] steroids. Cont Nystatin swish and swallow regimen for 10 days. This may help to improve his PO intake. (6) Diabetic neuropathy: Still reporting pain. Home dose gabapentin was 600mg PO QID decreased to 300mg PO BID becuase of renal insufficiency. Cont with gabapentin 300mg PO TID dosing for now with current renal function. Cont Tylenol and PRN oxy for discomfort with minimization of narcotic with current respiratory status. (7) Hypothyroidism: chronic, stable, Continue levothyroxine per home regimen. (8) Depression: chronic, stable. Cont Prozac per home regimen. (9) DVT prophylaxis: Heparin SQ DNR/DNI Dipso-cont hopspitalization/PCU status, still requiring high flow oxygen supplementation. Prognosis poor but continuing treatment and supportive care at this time. [facility] Ad[facility] and Anticipated Discharge Date Admission Date: May 22, 2020 Subjective cc: covid pneumonia -doing ok -feeling tired -still SOB with min exertion -eating well remains afebrile no BM in many days per nursing -not inclined to change position or prone. Review of Systems Review of Systems: All systems reviewed & are unremarkable except as noted in Subjective Physical Exam Physical Exam: CONSTITUTIONAL: vitals as above, generally thin, inmate in restraints. EYES: normal conjunctivae, no scleral icterus ENT: external ear and nose normal, tongue with whitish substance all over it consistent with thrush, which is improving. NECK: trachea midline RESPIRATORY: normal respiratory effort on high flow oxygen supplementation, easily desaturates with speaking or minimal exertion. Clear to auscultation throughout. CARDIOVASCULAR: regular rate and rhythm, S1 and 2 heard without murmurs, gallops or rubs, no JVD, no peripheral edema GASTROINTESTINAL: soft, nontender, nondistended, no guarding MUSCULOSKELETAL: generalized weakness, head is normocephalic and atraumatic SKIN: warm and dry NEUROLOGIC: CN 2-12 grossly intact, normal cognition, normal speech, no gross focal deficits. PSYCHIATRIC: alert cooperative and answering questions appropriately. Results & Data Results & Data ([facility]) Vital Signs (Past 12 Hours) Vital Signs Temp Pulse Pulse Resp BP Pulse Ox 06/13/20 11:13 36.5 C 75 20 160/96 H 90 06/13/20 07:39 36.4 C L 70 16 113/74 93 06/13/20 07:11 71 16 97 Laboratory Results [facility] 06/12/20 16:06 Sodium 142 Potassium 4.8 Chloride 112 H Carbon Dioxide 24 BUN 101 H Creatinine 2.77 H Glucose 440 H* Calcium 8.6 Diagnostic Findings [facility], [id number] XRay Report Patient: MARIELA ROSE [id number] Date: 05/22/20MR#: [id number]: BOX AAcct ID:[id number]: Date: 1965City Zip: [place] [address]Xyv: 56Location: 2ESex: MRoom/Bed: [id number] Phy: Kenya Cagle, DODiagnosis: FEVERPri [facility] Date: 06/13/20Fam Phy:Interpreting Phy: Tani Contreras MDAdmit Phy: Esequiel Wayne MD Ordering Phy: Kenya Cagle, DO cc: ~ R chest 1V portable HISTORY: hypoxia, +covid pneumonia progress COMPARISON: Chest 06/11/2020. FINDINGS: No pneumothorax. The heart remains mildly enlarged. Bilateral hazy airspace opacities, left greater than right are again noted. This appears of slightly improved within the right lung base. There may be trace bilateral pleural effusions. IMPRESSION: Redemonstration of the bilateral hazy airspace opacities consistent with a viral pneumonia. This may have slightly improved within the right lung base. ACT 112: Negative or not required by law. Electronically signed by: Tani Contreras M.D. 06/13/2020 9:15 AM Dictated: 06/13/20 0912Transcribed: 06/13/20 0912 Medications Administered Current Inpatient Medications Acetaminophen (Acetaminophen 500 Mg Tab) 1,000 mg PO Q8H MARY Stop: 07/10/20 21:59 Last Admin: 06/13/20 13:46 Dose: 1,000 mg Documented by: Albuterol (Albuterol Hfa 8 Gm Inhaler) 2 puffs INH Q4R PRN PRN Reason: shortness of breath Stop: 06/28/20 16:37 Last Admin: 06/09/20 11:23 Dose: 2 puffs Documented by: Ascorbic Acid (Ascorbic Acid 500 Mg Tab) 500 mg PO BID MARY Stop: 07/12/20 20:59 Last Admin: 06/13/20 08:51 Dose: 500 mg Documented by: Aspirin (Aspirin 81 Mg Ectab) 81 mg PO DAILY MARY Stop: 06/22/20 08:59 Last Admin: 06/13/20 08:45 Dose: 81 mg Documented by: Atorvastatin Calcium (Atorvastatin 40 Mg Tab) 80 mg PO HS MARY Stop: 06/22/20 20:59 Last Admin: 06/12/20 20:15 Dose: 80 mg Documented by: Dextrose (Dextrose 50% 50 Ml Syringe) 25 - 50 ml IV UD PRN; Protocol PRN Reason: Hypoglycemia Protocol Stop: 06/22/20 01:29 Last Admin: 05/29/20 21:38 Dose: 50 ml Documented by: Fludrocortisone Acetate (Fludrocortisone Acetate 0.1 Mg Tab) 0.3 mg PO QAM MARY Stop: 07/03/20 08:59 Last Admin: 06/13/20 08:46 Dose: 0.3 mg Documented by: Fluoxetine HCl (Fluoxetine Hcl 20 Mg Cap) 40 mg PO DAILY MARY Stop: 06/22/20 08:59 Last Admin: 06/13/20 08:47 Dose: 40 mg Documented by: Gabapentin (Gabapentin 300 Mg Cap) 300 mg PO TID MARY Stop: 07/11/20 08:59 Last Admin: 06/13/20 13:45 Dose: 300 mg Documented by: Glucagon (Glucagon For Inj 1 Mg Vial) 1 mg SQ UD PRN; Protocol PRN Reason: Hypoglycemia Protocol Stop: 06/22/20 01:29 Glucose (Glucose 40% Gel 15 Gm Tube) 15 - 30 gm PO UD PRN; Protocol PRN Reason: Hypoglycemia Protocol Stop: 06/22/20 01:29 Glucose (Glucose 10 Tabs/Tube) 4 - 8 tabs PO UD PRN; Protocol PRN Reason: Hypoglycemia Protocol Stop: 06/22/20 01:29 Last Admin: 05/29/20 21:15 Dose: 4 tabs Documented by: Heparin Sodium (Beef Lung) (Heparin 10 Unit/Ml 5 Ml Flush) 5 ml FLUSH PRN PRN PRN Reason: Flush Stop: 07/03/20 22:44 Heparin Sodium (Porcine) (Heparin Sod 5,000 Unit/0.5 Ml Vial) 5,000 units SQ Q12 MARY Stop: 07/03/20 08:59 Last Admin: 06/13/20 08:47 Dose: 5,000 units Documented by: Hydralazine HCl (Hydralazine 10 Mg Tab) 10 mg PO Q6H PRN PRN Reason: Hypertension/ SBP >160 Stop: 07/01/20 18:44 Furosemide 20 mg/ Syringe 2 mls @ 4 mls/min IV [id number] MARY Stop: 07/05/20 08:59 Last Admin: 06/12/20 17:16 Dose: 4 mls/min Documented by: Insulin Human Regular 250 (units/ Sodium Chloride) 250 mls @ 5.6 mls/hr IV .Q24H [facility]; Protocol Stop: 07/12/20 08:29 Last Titration: 06/13/20 15:33 Dose: 5.6 units/hr, 5.6 mls/hr Documented by: Insulin Aspart (Insulin Aspart 100 Units/Ml 3 Ml Pen) 0 units SC ACHS [facility]; Protocol Stop: 07/12/20 11:29 Last Admin: 06/13/20 13:43 Dose: 10 units Documented by: Insulin Glargine (Insulin Glargine Solostar 100 Units/Ml 3 Ml Pen) 10 units SC DAILY@0800 [facility]; Protocol Stop: 07/12/20 07:59 Last Admin: 06/12/20 08:48 Dose: 10 units Documented by: Levothyroxine Sodium (Levothyroxine Sodium 137 Mcg Tablet) 137 mcg PO DAILYBB [facility] Stop: 06/22/20 06:29 Last Admin: 06/13/20 06:08 Dose: 137 mcg Documented by: Miscellaneous (Carbohydrates For Hypoglycemia ) 15 - 30 gm PO UD PRN PRN Reason: Hypoglycemia Treatment Stop: 06/22/20 01:29 Last Admin: 05/29/20 17:10 Dose: 15 gm Documented by: Miscellaneous Information (Pharmacy Glycemic Mgmt Consult) 1 ea N/A UD PRN PRN Reason: Consult Stop: 06/23/20 15:06 Multi-Ingredient Cream (Eucerin Cr 120 Gm Jar) 1 appln EXT BID PRN PRN Reason: Rash Stop: 06/28/20 11:00 Multivitamins (Multivitamin Tab) 1 tab PO QAM [facility] Stop: 07/03/20 08:59 Last Admin: 06/13/20 08:50 Dose: 1 tab Documented by: Nystatin (Nystatin Susp 500,000 U/5 Ml Ud) 5 ml PO QID [facility] Stop: 06/20/20 21:59 Last Admin: 06/13/20 13:44 Dose: 5 ml Documented by: Ondansetron HCl (Ondansetron Inj 2 Mg/Ml 2 Ml Vial) 4 mg IV Q6H PRN PRN Reason: Nausea Stop: 06/22/20 00:45 Last Admin: 06/08/20 07:48 Dose: 4 mg Documented by: Oxycodone HCl (Oxycodone Hcl Ir 5 Mg Tab (Immediate Release)) 5 mg PO Q8H PRN PRN Reason: severe neuropathic pain Stop: 06/24/20 21:05 Pantoprazole Sodium (Pantoprazole 40 Mg Tab) [facility] Stop: 06/26/20 18:29 Last Admin: 06/13/20 08:52 Dose: 40 mg Documented by: Potassium Chloride (Potassium Chloride Crtab 20 Meq Tabcr) 20 meq PO BID [facility] Stop: 07/08/20 10:29 Last Admin: 06/13/20 08:48 Dose: 20 meq Documented by: Prednisone (Prednisone 20 Mg Tab) 20 mg PO [facility] Stop: 06/15/20 08:59 Last Admin: 06/13/20 08:51 Dose: 20 mg Documented by: Prednisone (Prednisone 10 Mg Tablet) 10 mg PO [facility] Stop: 06/18/20 08:59 Thiamine HCl (Thiamine Hcl 100 Mg Tab) 100 mg PO BID [facility] Stop: 06/28/20 08:59 Last Admin: 06/13/20 08:50 Dose: 100 mg Documented by: Vitamin B Complex/Folic Acid (Nephrocaps) 1 cap PO DAILY [facility] Stop: 06/22/20 08:59 Last Admin: 06/13/20 08:49 Dose: 1 cap Documented by: Vitamin D (Cholecalciferol 1,000 Units 25 Mcg Tab) 1,000 units PO [facility]ACARL [facility] Stop: 07/12/20 18:29 Last Admin: 06/13/20 08:51 Dose: 1,000 units Documented by: Zinc Sulfate (Zinc Sulfate 220 Mg Capsule) 220 mg PO [facility] Stop: 07/12/20 18:29 Last Admin: 06/13/20 08:49 Dose: 220 mg Documented by:
[2020-06-13] MEDS ORDERED: GLYCERIN ADULT 12 SUPP/BOX SUPP PR ONE (18:58)
[2020-06-13] MEDS: ATORVASTATIN 40 MG TAB PO SCH (20:23)
[2020-06-14] MEDS: ACETAMINOPHEN 500 MG TAB PO SCH (05:33)
[2020-06-14] MEDS: LEVOTHYROXINE SODIUM 137 MCG TABLET PO SCH (05:33)
[2020-06-14 07:19] LABS: Hematocrit (blood only) 26.2 % (42-52); Hemoglobin 8.1 g/dL (14.0-18.0); Mean Corpuscular Hemoglobin 27.2 pg (25-34); Mean Corpuscular Hgb Conc 30.9 g/dL (32-36); Mean Corpuscular Volume 87.9 fL (80-100); Platelet Count 457 K/uL (130-400); RDW Coefficient of Variation 17.5 % (11.5-14.5); RDW Standard Deviation 56.4 fL (36.4-46.3); Red Blood Count 2.98 M/uL (4.7-6.1); White Blood Count 13.81 K/uL (4.8-10.8)
[2020-06-14 07:33] LABS: BUN Creatinine Ratio 37.1 (10-20); C Reactive Protein 0.88 mg/dl (0-0.29); Calcium 8.8 mg/dl (8.5-10.1); Creatinine Clr Calc Pharmacy 35.4 ml/min; Est GFR (African American) 32.9; Est GFR (Non-African American) 28.4; Magnesium 2.3 mg/dl (1.8-2.4); Potassium 4.5 mmol/L (3.5-5.1)
[2020-06-14 07:38] LABS: Ferritin 74.8 ng/ml (8-388)
[2020-06-14] MEDS ORDERED: ACETAMINOPHEN 500 MG TAB PO PRN (07:39)
[2020-06-14] MEDS: INSULIN ASPART 100 UNITS/ML 3 ML PEN SC SCH ×4 (08:48→20:16)
[2020-06-14] MEDS: FLUDROCORTISONE ACETATE 0.1 MG TAB PO SCH (08:50)
[2020-06-14] MEDS: ASPIRIN 81 MG ECTAB PO SCH (08:50)
[2020-06-14] MEDS: HEPARIN SOD 5,000 UNIT/0.5 ML VIAL SQ SCH ×2 (08:50→21:31)
[2020-06-14] MEDS: POTASSIUM CHLORIDE CRTAB 20 MEQ TABCR PO SCH ×2 (08:51→21:32)
[2020-06-14] MEDS: NYSTATIN SUSP 500,000 U/5 ML UDC PO SCH ×4 (08:52→21:30)
[2020-06-14] MEDS: NEPHROCAPS PO SCH (08:52)
[2020-06-14] MEDS: MULTIVITAMIN TAB PO SCH (08:52)
[2020-06-14] MEDS: GABAPENTIN 300 MG CAP PO SCH ×3 (08:53→21:31)
[2020-06-14] MEDS: predniSONE 20 MG TAB PO SCH (08:53)
[2020-06-14] MEDS: PANTOprazole 40 MG TAB PO SCH (08:54)
[2020-06-14] MEDS: FLUoxetine HCL 20 MG CAP PO SCH (08:55)
[2020-06-14] MEDS: CHOLECALCIFEROL 1,000 UNITS 25 MCG TAB PO SCH (08:56)
[2020-06-14] MEDS: ZINC SULFATE 220 MG CAPSULE PO SCH (08:56)
[2020-06-14] MEDS: ASCORBIC ACID 500 MG TAB PO SCH ×2 (08:56→21:32)
[2020-06-14] MEDS: THIAMINE HCL 100 MG TAB PO SCH ×2 (08:56→21:32)
[2020-06-14] MEDS: DOCUSATE SODIUM/SENNA 50/8.6MG TAB PO SCH (09:00)
[2020-06-14] MEDS: INSULIN REGULAR 250 UNITS in SODIUM CHLORIDE 0.9% 247.5 ML IV SCH (10:00)
[2020-06-14] MEDS: INSULIN GLARGINE SOLOSTAR 100 UNITS/ML 3 ML PEN SC SCH (12:48)
[2020-06-14] MEDS: POLYETHYLENE (MIRALAX) 17 GM PACK PO PRN (13:30)
--- NOTE | 2020-06-14 13:44 | Pharmacy Report ---
Pharmacy Glycemic Short Note 2 - Date of Service June 14, 2020 - Glycemic Short BSG Results (Last 24 hours): 06/13/20 06/13/20 06/13/20 14:31 15:30 16:31 Glucose POC Glucose 253 H 237 H 221 H 06/13/20 06/13/20 06/13/20 17:35 18:31 19:34 Glucose POC Glucose 187 H 254 H 227 H 06/13/20 06/13/20 06/13/20 20:37 21:46 22:33 Glucose POC Glucose 182 H 140 H 124 H 06/13/20 06/14/20 06/14/20 23:31 00:32 01:35 Glucose POC Glucose 102 H 98 98 06/14/20 06/14/20 06/14/20 02:38 04:06 05:05 Glucose POC Glucose 104 H 120 H 99 06/14/20 06/14/20 06/14/20 05:59 06:02 06:48 Glucose 79 POC Glucose 91 94 06/14/20 06/14/20 06/14/20 08:09 08:56 10:00 Glucose POC Glucose 96 129 H 178 H 06/14/20 06/14/20 06/14/20 11:01 11:59 13:03 Glucose POC Glucose 176 H 155 H 215 H Outpatient Anti-diabetic Regimen: * Lantus 15 units SC qAM, 8 units SC qPM * A1c = 8.3 % on 05/23/20 ASSESSMENT: 06/14/20 * Patient did not receive any additional Lantus yesterday (except for 20 units around midnight). BSGs trended higher towards the end of the day with insulin rates around 5.6-6.7 units/hr. Overnight, however, insulin infusion was held for some time. * Insulin infusion was held this morning from around 0600 to 1000. Then restarted at 1.5 units/hr. Gave Lantus 10 units at noon. Again, the goal of this Lantus was not to titrate patient off drip but allow for easier transition in the future. Preferably when not on steroids. 06/13/20 * Patient was transitioned off insulin drip early this morning and given 20 units of Lantus. After discussion with physician, insulin infusion resumed at 3.5 units/hr. Has now remained steady at 5 units/hr with BSGs in the mid - 100s. * At this point, will continue with Lantus 10 units (starting 06/13/20) plus insulin infusion. Do not want to stop insulin infusion due to fluctuating blood sugars. Please do not stop. 06/12 * One BSG > 300 mg/dL yesterday and BSG again >300 mg/dL this AM despite increase in Lantus and despite overnight checks * Discussed extensively w Dr. Cagle early this AM - benefits of insulin drip at this point with labile T1DM, steroid taper, BSG >300 mg/dL, and severe illness outweigh drawbacks with frequent titrations. We also discussed whether to continue Lantus - usually do not continue SQ basal insulin for a patient on an insulin drip. However, with previous labile BSG's noted, discussed best to continue *low dose* Lantus *not* intended to provide all of the patient's basal needs, to help eventual transition off of the drip as significant fluctuations in basal insulin previously this admission caused both severe hypo- and hyper-glycemia. Insulin drip initiated, higher bolus dose ordered, and low dose Lantus was ordered this AM as discussed * Have since discussed multiple times with RN (Mt) - BSG's have continued to climb. In response, have escalated therapy more than usual hyperglycemia protocol (for non-DKA, non-HHS), providing additional IV boluses (additional 5 units then additional 7 units) and have also been titrating rate up faster that usual hyperglycemia protocol. Despite frequent and aggressive interventions with escalating IV doses, BSG's have continued to climb. Discussed w Mt r/e IV site - tM noted that there was a brief ~30 minute period where the IV may have infiltrated at around 1330 today, but otherwise good blood return noted * Discussed again with Dr. Cagle - concern that BSG's are behaving as if he is not adequately receiving the IV insulin which may or may not be due to a line issue. Plan is to get new line, get a BSG then give 0.1 unit/kg bolus in that new line, switch drip now running at 10 units/hr to the new line, and continue to titrate. Plan is to also increase goal range to DKA goal range and assess electrolytes r/e DKA concerns. Dr. Cagle to order/assess. Also - we discussed giving additional Lantus up to the dose the patient was receiving w azar on dexamethasone 6 mg as there is concern with IV access. 20 units Lantus ordered. This plan was also then verbally discussed with Mt * Will leave out for 2nd shift 06/11 * Post-prandial BSG's well controlled yesterday with revised CHO ratio - no change to Novolog CHO ratio. But will tighten correction factor now to help make up for basal deficiency causing hyperglycemia * AM fasting BSG elevated, as anticipated due to late admin of steroids yesterday (see 06/10 comment). Will increase dose today. Will add two overnight checks 06/10 * Patient received dexamethasone 6 mg IV daily x17 days. This is 40 mg in terms of prednisone equivalents. Although this is not *greater than* 3 weeks, it is close to 3 weeks and therefore patient may have an element of HPA axis suppression which would require a steroid taper to prevent glucocorticoid withdrawal. Discussed w Dr. Cagle - plan currently is to start prednisone taper 30 mg po daily x7 days, 20 mg po daily x7 days, 10 mg po daily x7 days. This may require adjustment/slowing taper depending on patient tolerability. * Lantus dose reduced this AM - this dose may not be enough with prednisone admin this afternoon, but instead of giving a unit or two of Lantus in supplement, will schedule two overnight checks to provide additional "basal" insulin if needed * Will tighten the Novolog CHO ration slightly with steroids being resumed, but not quite to what it was previously while on dexamethasone 6 mg IV daily PLAN FOR INPATIENT GLYCEMIC CONTROL: * Insulin drip - goal range 150-250 mg/dL. Currently running at 1.8 units/hr * Basal insulin * Lantus 10 units SQ qAM. * Bolus insulin * Nutritional / Prandial insulin per carb ratio of 1 unit per 5 or 6 grams CHO consumed, depending on insulin drip rate Plan for discharge: Dependent on changes in inpatient insulin requirements with starting steroid taper
--- NOTE | 2020-06-14 14:21 | Hospitalist Progress Note ---
Date of Service June 14, 2020 Assessment & Plan (1) Acute respiratory failure with hypoxia: Admitted almost 3 weeks ago with covid pneumonia. Had acute respiratory distress syndrome with severe hypoxic respiratory failure on admission. Received one unit of conv plasma on 05/27. Has been receiving dexamethasone since that time. Changed steroid taper recently. WATCH CLOSELY FOR ADRENAL INSUFFICIENCY WHEN OFF STEROIDS. Not a candidate for remdesivir 2/2 renal failure. Continues on high flow oxygen supplementation occasionally transitioning to oxymask. (2) Pneumonia due to COVID-19 virus: He completed a robust antibiotic course while admitted. (Doxycycline 100mg BID 5 dys, stopped for 2, resumed 05/30 for 7 full days, Ceftriaxone x 14 days, Cefepime for an additional 3 days after the ceftriaxone completed, and Flagyl for 8 days.) Cont care plan as outlined above with supportive care measures and steroids. (3) Diabetes mellitus type I: Brittle diabetic with recently demonstrated difficult to manage blood sugar, especially with steroids. Pt is reliably eating as thrush is getting better. Converted him to insulin drip this morning with plans to keep him on the drip for more consistent blood sugars. Will not be transitioning him off the insulin drip until he is more stable from a breathing standpoint. Lantus and prandial boluses to be decided on by glycemic pharmacist. Infiltration of peripheral IV site on 06/12 lead to hyperglycemia with glucose into the 500s. He did not develop acidosis before a new IV site was established and insulin was running through it with good effect. Blood glucose is currently coming down into normal range on the drip. (4) CKD (chronic kidney disease), stage III: Resolved to baseline renal function. Patient has Stage 3 CKD. Lasix on hold for now. (5) Thrush, oral: Improving. 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 Cont Nystatin swish and swallow regimen for 10 days. This may help to improve his PO intake. (6) Diabetic neuropathy: Still reporting pain. Home dose gabapentin was 600mg PO QID decreased to 300mg PO BID becuase of renal insufficiency. Cont with gabapentin 300mg PO TID dosing for now with current renal function. Cont Tylenol and PRN oxy for discomfort with minimization of narcotic with current respiratory status. (7) Hypothyroidism: chronic, stable, Continue levothyroxine per home regimen. (8) Depression: chronic, stable. Cont Prozac per home regimen. (9) Constipation: Pt ok with glycerin suppository and miralax now. Cont scheduled Sen[place]ot. Encouraged to move as able. Proning good for breathing and BM. (10) DVT prophylaxis: Heparin SQ DNR/DNI Dipso-cont hopspitalization/PCU status, still requiring high flow oxygen supplementation. Prognosis poor but continuing treatment and supportive care at this time. DO Tank LiconaK[facility] Centerist Admission and Anticipated Discharge Date Admission Date: May 22, 2020 Subjective cc: covid pneumonia -tired today -tolerating PO afebrile +SOB +pain in feet from neuropathy Review of Systems Review of Systems: All systems reviewed & are unremarkable except as noted in Subjective Physical Exam Physical Exam: CONSTITUTIONAL: vitals as above, generally thin, inmate in restraints. EYES: normal conjunctivae, no scleral icterus ENT: external ear and nose normal, tongue with whitish substance all over it consistent with thrush, which is improving. NECK: trachea midline RESPIRATORY: normal respiratory effort on high flow oxygen supplementation, easily desaturates with speaking or minimal exertion. Min crackles at bases b ilaterally otherwise clear with good air flow. CARDIOVASCULAR: regular rate and rhythm, S1 and 2 heard without murmurs, gallops or rubs, no JVD, no peripheral edema GASTROINTESTINAL: soft, nontender, nondistended, no guarding MUSCULOSKELETAL: generalized weakness, head is normocephalic and atraumatic SKIN: warm and dry NEUROLOGIC: CN 2-12 grossly intact, normal cognition, normal speech, no gross focal deficits. PSYCHIATRIC: alert cooperative and answering questions appropriately. Results & Data Results & Data ([facility]) Vital Signs (Past 12 Hours) Vital Signs Temp Pulse Resp BP BP Pulse Ox 06/14/20 10:45 75 22 81 L 06/14/20 08:32 75 20 89 L 06/14/20 07:55 36.7 C 71 20 124/70 89 L 06/14/20 04:09 36.6 C 72 18 135/78 90 06/14/20 03:30 69 16 89 L Laboratory Results Short CBC 06/14/20 Range/Units 05:59 WBC 13.81 H (4.8-10.8) K/uL Hgb 8.1 L (14.0-18.0) g/dL Hct 26.2 L (42-52) % Plt Count 457 H (130-400) K/uL BMP 06/14/20 05:59 Sodium 143 Potassium 4.5 Chloride 113 H Carbon Dioxide 27 BUN 91 H Creatinine 2.45 H D Glucose 79 Calcium 8.8 Medications Administered Current Inpatient Medications Acetaminophen (Acetaminophen 500 Mg Tab) 1,000 mg PO Q8H PRN PRN Reason: pain/fever Stop: 07/10/20 21:59 Albuterol (Albuterol Hfa 8 Gm Inhaler) 2 puffs INH Q4R PRN PRN Reason: shortness of breath Stop: 06/28/20 16:37 Last Admin: 06/09/20 11:23 Dose: 2 puffs Documented by: Ascorbic Acid (Ascorbic Acid 500 Mg Tab) 500 mg PO BID MARY Stop: 07/12/20 20:59 Last Admin: 06/14/20 08:56 Dose: 500 mg Documented by: Aspirin (Aspirin 81 Mg Ectab) 81 mg PO DAILY MARY Stop: 06/22/20 08:59 Last Admin: 06/14/20 08:50 Dose: 81 mg Documented by: Atorvastatin Calcium (Atorvastatin 40 Mg Tab) 80 mg PO HS MARY Stop: 06/22/20 20:59 Last Admin: 06/13/20 20:23 Dose: 80 mg Documented by: Dextrose (Dextrose 50% 50 Ml Syringe) 25 - 50 ml IV UD PRN; Protocol PRN Reason: Hypoglycemia Protocol Stop: 06/22/20 01:29 Last Admin: 05/29/20 21:38 Dose: 50 ml Documented by: Fludrocortisone Acetate (Fludrocortisone Acetate 0.1 Mg Tab) 0.3 mg PO QAM MARY Stop: 07/03/20 08:59 Last Admin: 06/14/20 08:50 Dose: 0.3 mg Documented by: Fluoxetine HCl (Fluoxetine Hcl 20 Mg Cap) 40 mg PO DAILY MARY Stop: 06/22/20 08:59 Last Admin: 06/14/20 08:55 Dose: 40 mg Documented by: Gabapentin (Gabapentin 300 Mg Cap) 300 mg PO TID MARY Stop: 07/11/20 08:59 Last Admin: 06/14/20 12:49 Dose: 300 mg Documented by: Glucagon (Glucagon For Inj 1 Mg Vial) 1 mg SQ UD PRN; Protocol PRN Reason: Hypoglycemia Protocol Stop: 06/22/20 01:29 Glucose (Glucose 40% Gel 15 Gm Tube) 15 - 30 gm PO UD PRN; Protocol PRN Reason: Hypoglycemia Protocol Stop: 06/22/20 01:29 Glucose (Glucose 10 Tabs/Tube) 4 - 8 tabs PO UD PRN; Protocol PRN Reason: Hypoglycemia Protocol Stop: 06/22/20 01:29 Last Admin: 05/29/20 21:15 Dose: 4 tabs Documented by: Heparin Sodium (Beef Lung) (Heparin 10 Unit/Ml 5 Ml Flush) 5 ml FLUSH PRN PRN PRN Reason: Flush Stop: 07/03/20 22:44 Heparin Sodium (Porcine) (Heparin Sod 5,000 Unit/0.5 Ml Vial) 5,000 units SQ Q12 MARY Stop: 07/03/20 08:59 Last Admin: 06/14/20 08:50 Dose: 5,000 units Documented by: Hydralazine HCl (Hydralazine 10 Mg Tab) 10 mg PO Q6H PRN PRN Reason: Hypertension/ SBP >160 Stop: 07/01/20 18:44 Furosemide 20 mg/ Syringe 2 mls @ 4 mls/min IV [id number] [facility] Stop: 07/05/20 08:59 Last Admin: 06/12/20 17:16 Dose: 4 mls/min Documented by: Insulin Human Regular 250 (units/ Sodium Chloride) 250 mls @ 2.2 mls/hr IV .Q24H [facility]; Protocol Stop: 07/12/20 08:29 Last Titration: 06/14/20 14:03 Dose: 2.2 units/hr, 2.2 mls/hr Documented by: Insulin Aspart (Insulin Aspart 100 Units/Ml 3 Ml Pen) 0 units SC ACHS [facility]; Protocol Stop: 07/12/20 11:29 Last Admin: 06/14/20 12:47 Dose: 14 units Documented by: Insulin Glargine (Insulin Glargine Solostar 100 Units/Ml 3 Ml Pen) 10 units SC DAILY@0800 [facility]; Protocol Stop: 07/14/20 11:59 Last Admin: 06/14/20 12:48 Dose: 10 units Documented by: Levothyroxine Sodium (Levothyroxine Sodium 137 Mcg Tablet) 137 mcg PO DAILYBB [facility] Stop: 06/22/20 06:29 Last Admin: 06/14/20 05:33 Dose: 137 mcg Documented by: Miscellaneous (Carbohydrates For Hypoglycemia ) 15 - 30 gm PO UD PRN PRN Reason: Hypoglycemia Treatment Stop: 06/22/20 01:29 Last Admin: 05/29/20 17:10 Dose: 15 gm Documented by: Miscellaneous Information (Pharmacy Glycemic Mgmt Consult) 1 ea N/A UD PRN PRN Reason: Consult Stop: 06/23/20 15:06 Multi-Ingredient Cream (Eucerin Cr 120 Gm Jar) 1 appln EXT BID PRN PRN Reason: Rash Stop: 06/28/20 11:00 Multivitamins ([facility]itamin Tab) [facility] Stop: 07/03/20 08:59 Last Admin: 06/14/20 08:52 Dose: 1 tab Documented by: Nystatin (Nystatin Susp 500,000 U/5 Ml [facility]) 5 ml PO QID [facility] Stop: 06/20/20 21:59 Last Admin: 06/14/20 12:48 Dose: 5 ml Documented by: Ondansetron HCl (Ondansetron Inj 2 Mg/Ml 2 Ml Vial) 4 mg IV Q6H PRN PRN Reason: Nausea Stop: 06/22/20 00:45 Last Admin: 06/08/20 07:48 Dose: 4 mg Documented by: Oxycodone HCl (Oxycodone Hcl Ir 5 Mg Tab (Immediate Release)) 5 mg PO Q8H PRN PRN Reason: severe neuropathic pain Stop: 06/24/20 21:05 Pantoprazole Sodium (Pantoprazole 40 Mg Tab) 40 mg PO QAM [facility] Stop: 06/26/20 18:29 Last Admin: 06/14/20 08:54 Dose: 40 mg Documented by: Polyethylene Glycol (Polyethylene (Miralax) 17 Gm Pack) 17 gm PO Q6H PRN PRN Reason: Constipation Stop: 07/13/20 18:55 Last Admin: 06/14/20 13:30 Dose: 17 gm Documented by: Potassium Chloride (Potassium Chloride Crtab 20 Meq Tabcr) 20 meq PO BID [facility] Stop: 07/08/20 10:29 Last Admin: 06/14/20 08:51 Dose: 20 meq Documented by: Prednisone (Prednisone 20 Mg Tab) 20 mg PO QAM [facility] Stop: 06/15/20 08:59 Last Admin: 06/14/20 08:53 Dose: 20 mg Documented by: Prednisone (Prednisone 10 Mg Tablet) 10 mg PO [facility] Stop: 06/18/20 08:59 Senna/Docusate Sodium (Docusate Sodium/Senna 50/8.6mg Tab) 1 [facility] Stop: 07/14/20 08:59 Last Admin: 06/14/20 09:00 Dose: 1 tab Documented by: Thiamine HCl (Thiamine Hcl 100 Mg Tab) 100 mg PO BID [facility] Stop: 06/28/20 08:59 Last Admin: 06/14/20 08:56 Dose: 100 mg Documented by: Vitamin B Complex/Folic Acid (Nephrocaps) 1 cap PO DAILY [facility] Stop: 06/22/20 08:59 Last Admin: 06/14/20 08:52 Dose: 1 cap Documented by: Vitamin D (Cholecalciferol 1,000 Units 25 Mcg Tab) 1,000 units PO [facility] Stop: 07/12/20 18:29 Last Admin: 06/14/20 08:56 Dose: 1,000 units Documented by: Zinc Sulfate (Zinc Sulfate 220 Mg Capsule) 220 mg PO [facility] Stop: 07/12/20 18:29 Last Admin: 06/14/20 08:56 Dose: 220 mg Documented by:
[2020-06-14] MEDS: ONDANSETRON INJ 2 MG/ML 2 ML VIAL IV PRN (20:07)
[2020-06-14] MEDS: ATORVASTATIN 40 MG TAB PO SCH (21:31)
[2020-06-15] MEDS: LEVOTHYROXINE SODIUM 137 MCG TABLET PO SCH (05:17)
[2020-06-15] MEDS: INSULIN ASPART 100 UNITS/ML 3 ML PEN SC SCH ×4 (08:36→20:31)
[2020-06-15] MEDS: INSULIN GLARGINE SOLOSTAR 100 UNITS/ML 3 ML PEN SC SCH (08:36)
[2020-06-15] MEDS: FLUDROCORTISONE ACETATE 0.1 MG TAB PO SCH (08:40)
[2020-06-15] MEDS: FLUoxetine HCL 20 MG CAP PO SCH (08:40)
[2020-06-15] MEDS: NEPHROCAPS PO SCH (08:40)
[2020-06-15] MEDS: MULTIVITAMIN TAB PO SCH (08:41)
[2020-06-15] MEDS: CHOLECALCIFEROL 1,000 UNITS 25 MCG TAB PO SCH (08:41)
[2020-06-15] MEDS: GABAPENTIN 300 MG CAP PO SCH ×3 (08:41→20:10)
[2020-06-15] MEDS: predniSONE 10 MG TABLET PO SCH (08:41)
[2020-06-15] MEDS: ASCORBIC ACID 500 MG TAB PO SCH ×2 (08:42→20:11)
[2020-06-15] MEDS: ASPIRIN 81 MG ECTAB PO SCH (08:42)
[2020-06-15] MEDS: POTASSIUM CHLORIDE CRTAB 20 MEQ TABCR PO SCH ×2 (08:42→20:09)
[2020-06-15] MEDS: PANTOprazole 40 MG TAB PO SCH (08:42)
[2020-06-15] MEDS: THIAMINE HCL 100 MG TAB PO SCH ×2 (08:42→20:11)
[2020-06-15] MEDS: ZINC SULFATE 220 MG CAPSULE PO SCH (08:45)
[2020-06-15] MEDS: NYSTATIN SUSP 500,000 U/5 ML UDC PO SCH ×4 (08:48→20:09)
[2020-06-15] MEDS: DOCUSATE SODIUM/SENNA 50/8.6MG TAB PO SCH (08:48)
[2020-06-15] MEDS: HEPARIN SOD 5,000 UNIT/0.5 ML VIAL SQ SCH ×2 (08:48→20:09)
--- NOTE | 2020-06-15 10:29 | Nephrology Progress Note ---
Date of Service June 15, 2020 Assessment & Plan (1) CKD (chronic kidney disease), stage III: Per hospitalist on paperwork from admission, baseline creatinine 2.3 in 12/2019. No OP/prior to admission creatinine documented. Pt presented with creatinine 2.5 on 05/22; then since 05/27 in mid to low 3s. peaked at 4.5 on 06/02; creat under 3 since 06/10; today low 2's. lasix on hold since 06/12 pm; remains on K supplements. uacm w/ 3+ dipstick protein, 1+ blood, consistent with even 2018 sediment; no infection or other inflammation. pt is open to dialysis if need arises; though he is doing better from renal standpoint than earlier thi cuateh -no longer on FR and none indicated -added bmp for today since on standing K > stable on standing K supplements; cont same; check bmp at least q48 hrs and sooner w/ lasix dose changes -lasix resumed today at 40 mg IV daily which is reasonable -await 06/02 requested last OP labs from [facility] > these do not appear to have been sent; >>>depending on respiratory status > consider removing mukherjee and voiding trial with diuretics if any standing to be given by 1800 daily -will follow peripherally now that renal function back to baseline >>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 s/p course of dexamethasone and on prednisone taper; also on OP fludro -ensure cont fludrocortisone at d/c; lisinopril on hold for now and reasonable to cont same BP w/ stable control since he is essentially bedbound; on lasix alone; has order for prn hydralazine - but not given since 06/01 and will d/c it (3) COVID-19: on high flow 02 for a few weeks now and still dependent; w/ near intubation / code purple for hypoxia 06/01 AM; ICU status downgraded 11/11; recurrent hypoxemic episodes corrected with self-proning >> he has been on 6L or more 02 continuously since 05/28 -per primary and pulm Admission and Anticipated Discharge Date Admission Date: May 22, 2020 Subjective seen on rounds at about 1630 this afternoon; c/o pleuritic chest pain and asks for meds; denies other sx including poor po, N/v, issues w/ mukherjee; rash. Review of Systems Review of Systems: All systems reviewed & are unremarkable except as noted in HPI & below Physical Exam Constitutional: well developed, well nourished and + thin; no acute distress Eyes: EOM intact bilaterally ENMT: Ears: no external ear abnormality Nose: no external nose abnormality Mouth: + dry oral mucous membranes Neck: no nuchal rigidity Respiratory: normal respiratory effort (on high flow 02; desats not ) Auscultation: + crackles (some fine crackles BL bases) Cardiovascular: RRR, no murmur, no edema Rate/Rhythm: regular rate and regular rhythm Gastrointestinal (Abdomen): Inspection/Auscultation: abdomen normal to inspection and normal bowel sounds Percussion/Palpation: abdomen soft; abdomen nontender Musculoskeletal: Extremities: strength 5/5 throughout Skin: no rashes, warm and dry Neurologic: gutierrez, fluent speech, no tremor Psychiatric: Orientation: alert and oriented x 3 Eye Contact: good eye contact Affect: + flat affect and + irritable affect Genitourinary: mukherjee w/ ample yellow urine Results & Data ([facility]) Vital Signs (Past 12 Hours) Vital Signs Temp Pulse Pulse Resp BP BP Pulse Ox 06/15/20 07:38 36.5 C 74 17 144/83 H 94 06/15/20 07:27 73 18 96 06/15/20 03:30 75 18 95 06/15/20 03:18 36.6 C 78 19 123/70 98 06/14/20 23:59 83 06/14/20 23:39 81 20 96 06/14/20 23:18 36.7 C 85 19 147/82 H Laboratory Results 06/14/20 05:59 06/15/20 10:37 (1) CKD (chronic kidney disease), stage III Chronic kidney disease stage 3 subtype: stage 3b (GFR 30-44) Qualified Code(s): N18.32 - Chronic kidney disease, stage 3b
[2020-06-15] MEDS: INSULIN REGULAR 250 UNITS in SODIUM CHLORIDE 0.9% 247.5 ML IV SCH (10:43)
[2020-06-15 11:26] LABS: BUN Creatinine Ratio 36.3 (10-20); Calcium 8.3 mg/dl (8.5-10.1); Creatinine Clr Calc Pharmacy 39.8 ml/min; Est GFR (African American) 37.8; Est GFR (Non-African American) 32.6; Potassium 4.4 mmol/L (3.5-5.1)
[2020-06-15 11:34] LABS: iSTAT Allen Test Pass; iSTAT Arterial Blood Gas HCO3 23 meg/L (19-24); iSTAT Arterial Blood Gas pCO2 35 mmHg (35-46); iSTAT Arterial Blood Gas pH 7.43 (7.35-7.45); iSTAT Arterial Blood Gas pO2 58 mmHg (80-95); iSTAT Carbon Dioxide 24 mmol/L (24-31); iSTAT FiO2 65 %; iSTAT Site R Radial
[2020-06-15] MEDS: DEXTROSE 50% 50 ML SYRINGE IV PRN (16:17)
[2020-06-15] MEDS ORDERED: MoRPHine SULFATE 2 MG/ML CARP IV STA (17:06)
--- NOTE | 2020-06-15 17:22 | Hospitalist Progress Note ---
Date of Service June 15, 2020 Assessment & Plan (1) Acute respiratory failure with hypoxia: Acute respiratory distress syndrome with severe hypoxic respiratory failure on admission. Received one unit of conv plasma on 05/27. Steroids x 3 weeks have been tapered off. Was not a candidate for remdesivir 2/2 renal failure. Continues on high flow oxygen supplementation occasionally transitioning to oxymask. Cont PRN Lasix on top of Lasix 40mg IV dialy for now. His oxygenation ability is improving and desaturations are less significant. (2) Pneumonia due to COVID-19 virus: He completed a robust antibiotic course while admitted. (Doxycycline 100mg BID 5 dys, stopped for 2, resumed 05/30 for 7 full days, Ceftriaxone x 14 days, Cefepime for an additional 3 days after the ceftriaxone completed, and Flagyl for 8 days.) Cont care plan as outlined above with supportive care measures and steroids. (3) Diabetes mellitus type I: Brittle diabetic with recently demonstrated difficult to manage blood sugar, especially with steroids. Pt is reliably eating as thrush is getting better. Converted him to insulin drip 06/12 with plans to keep him on the drip for more consistent blood sugars. Will not be transitioning him off the insulin drip until he is more stable from a breathing standpoint. Lantus and prandial boluses to be decided on by glycemic pharmacist. Infiltration of peripheral IV site on 06/12 lead to hyperglycemia with glucose into the 500s. He did not develop acidosis before a new IV site was established and insulin was running through it with good effect. Blood glucose is controlled with current insulin management. (4) CKD (chronic kidney disease), stage III: Resolved to baseline renal function. Patient has Stage 3 CKD. (5) Thrush, oral: Improving. Likely from intermediate steroids. Cont Nystatin swish and swallow regimen for 10 days. This may help to improve his PO intake. (6) Diabetic neuropathy: Still reporting pain. Home dose gabapentin was 600mg PO QID decreased to 300mg PO BID becuase of renal insufficiency. Cont with gabapentin 300mg PO TID dosing for now with current renal function. Cont Tylenol and PRN oxy for discomfort with minimization of narcotic with current respiratory status. (7) Hypothyroidism: chronic, stable, Continue levothyroxine per home regimen. (8) Depression: chronic, stable. Cont Prozac per home regimen. (9) Constipation: Resolved, BM today. (10) DVT prophylaxis: Heparin SQ DNR/DNI Dipso-cont hopspitalization/PCU status, still requiring high flow oxygen supplementation. Prognosis poor but continuing treatment and supportive care at this time. [facility] Admission and Anticipated Discharge Date Admission Date: May 22, 2020 Subjective cc: covid pneumonia -tired today -tolerating PO afebrile +SOB +pain in feet from neuropathy Review of Systems Review of Systems: All systems reviewed & are unremarkable except as noted in Subjective Physical Exam Physical Exam: CONSTITUTIONAL: vitals as above, generally thin, inmate in restraints. EYES: normal conjunctivae, no scleral icterus ENT: external ear and nose normal, MMM RESPIRATORY: normal respiratory effort on high flow oxygen supplementation, easily desaturates with speaking or minimal exertion but not as much today. Crackles heard at bases bilaterally CARDIOVASCULAR: regular rate and rhythm, S1 and 2 heard without murmurs, gallops or rubs, no JVD, no peripheral edema GASTROINTESTINAL: soft, nontender, nondistended, no guarding MUSCULOSKELETAL: generalized weakness, head is normocephalic and atraumatic SKIN: warm and dry NEUROLOGIC: CN 2-12 grossly intact, normal cognition, normal speech, no gross focal deficits. PSYCHIATRIC: alert cooperative and answering questions appropriately. Results & Data Results & Data ([facility]) Vital Signs (Past 12 Hours) Vital Signs Temp Pulse Pulse Pulse Resp BP BP 06/15/20 15:54 83 20 06/15/20 15:21 36.8 C 85 18 137/77 06/15/20 13:00 36.7 C 87 21 129/75 06/15/20 11:37 78 18 06/15/20 10:20 75 06/15/20 07:38 36.5 C 74 17 144/83 H 06/15/20 07:27 73 18 Pulse Ox 06/15/20 15:54 70 L 06/15/20 15:21 86 L 06/15/20 13:00 94 06/15/20 11:37 90 06/15/20 10:20 06/15/20 07:38 94 06/15/20 07:27 96 Laboratory Results BMP 06/15/20 10:37 Sodium 142 Potassium 4.4 Chloride 112 H Carbon Dioxide 25 BUN 79 H Creatinine 2.18 H Glucose 116 H Calcium 8.3 L Medications Administered Current Inpatient Medications Acetaminophen (Acetaminophen 500 Mg Tab) 1,000 mg PO Q8H PRN PRN Reason: pain/fever Stop: 07/10/20 21:59 Acetaminophen (Acetaminophen 500 Mg Tab) 1,000 mg PO Q8H MARY Stop: 07/15/20 17:29 Last Admin: 06/15/20 17:54 Dose: 1,000 mg Documented by: Albuterol (Albuterol Hfa 8 Gm Inhaler) 2 puffs INH Q4R PRN PRN Reason: shortness of breath Stop: 06/28/20 16:37 Last Admin: 06/09/20 11:23 Dose: 2 puffs Documented by: Ascorbic Acid (Ascorbic Acid 500 Mg Tab) 500 mg PO BID MARY Stop: 07/12/20 20:59 Last Admin: 06/15/20 08:42 Dose: 500 mg Documented by: Aspirin (Aspirin 81 Mg Ectab) 81 mg PO DAILY MARY Stop: 06/22/20 08:59 Last Admin: 06/15/20 08:42 Dose: 81 mg Documented by: Atorvastatin Calcium (Atorvastatin 40 Mg Tab) 80 mg PO HS MARY Stop: 06/22/20 20:59 Last Admin: 06/14/20 21:31 Dose: 80 mg Documented by: Dextrose (Dextrose 50% 50 Ml Syringe) 25 - 50 ml IV UD PRN; Protocol PRN Reason: Hypoglycemia Protocol Stop: 06/22/20 01:29 Last Admin: 06/15/20 16:17 Dose: 25 ml Documented by: Fludrocortisone Acetate (Fludrocortisone Acetate 0.1 Mg Tab) 0.3 mg PO QAM MARY Stop: 07/03/20 08:59 Last Admin: 06/15/20 08:40 Dose: 0.3 mg Documented by: Fluoxetine HCl (Fluoxetine Hcl 20 Mg Cap) 40 mg PO DAILY MARY Stop: 06/22/20 08:59 Last Admin: 06/15/20 08:40 Dose: 40 mg Documented by: Gabapentin (Gabapentin 300 Mg Cap) 300 mg PO TID MARY Stop: 07/11/20 08:59 Last Admin: 06/15/20 13:01 Dose: 300 mg Documented by: Glucagon (Glucagon For Inj 1 Mg Vial) 1 mg SQ UD PRN; Protocol PRN Reason: Hypoglycemia Protocol Stop: 06/22/20 01:29 Glucose (Glucose 40% Gel 15 Gm Tube) 15 - 30 gm PO UD PRN; Protocol PRN Reason: Hypoglycemia Protocol Stop: 06/22/20 01:29 Glucose (Glucose 10 Tabs/Tube) 4 - 8 tabs PO UD PRN; Protocol PRN Reason: Hypoglycemia Protocol Stop: 06/22/20 01:29 Last Admin: 05/29/20 21:15 Dose: 4 tabs Documented by: Heparin Sodium (Beef Lung) (Heparin 10 Unit/Ml 5 Ml Flush) 5 ml FLUSH PRN PRN PRN Reason: Flush Stop: 07/03/20 22:44 Heparin Sodium (Porcine) (Heparin Sod 5,000 Unit/0.5 Ml Vial) 5,000 units SQ Q12 MARY Stop: 07/03/20 08:59 Last Admin: 06/15/20 08:48 Dose: 5,000 units Documented by: Hydralazine HCl (Hydralazine 10 Mg Tab) 10 mg PO Q6H PRN PRN Reason: Hypertension/ SBP >160 Stop: 07/01/20 18:44 Furosemide 20 mg/ Syringe 2 mls @ 4 mls/min IV BID17 [facility] Stop: 07/05/20 08:59 Last Admin: 06/12/20 17:16 Dose: 4 mls/min Documented by: Insulin Human Regular 250 (units/ Sodium Chloride) 250 mls @ 0.9 mls/hr IV .Q24H MARY; Protocol Stop: 07/12/20 08:29 Last Titration: 06/15/20 17:47 Dose: 0.9 units/hr, 0.9 mls/hr Documented by: Furosemide 40 mg/ Syringe 4 mls @ 4 mls/min IV DAILY MARY Stop: 07/15/20 17:29 Last Admin: 06/15/20 17:51 Dose: 4 mls/min Documented by: Insulin Aspart (Insulin Aspart 100 Units/Ml 3 Ml Pen) 0 units SC ACHS [facility]; Protocol Stop: 07/12/20 11:29 Last Admin: 06/15/20 13:00 Dose: 11 units Documented by: Insulin Glargine (Insulin Glargine Solostar 100 Units/Ml 3 Ml Pen) 10 units SC DAILY@0800 [facility]; Protocol Stop: 07/14/20 11:59 Last Admin: 06/15/20 08:36 Dose: 10 units Documented by: Levothyroxine Sodium (Levothyroxine Sodium 137 Mcg Tablet) 137 mcg PO DAILYBB [facility] Stop: 06/22/20 06:29 Last Admin: 06/15/20 05:17 Dose: 137 mcg Documented by: Angeaneous (Carbohydrates For Hypoglycemia ) 15 - 30 gm PO UD PRN PRN Reason: Hypoglycemia Treatment Stop: 06/22/20 01:29 Last Admin: 05/29/20 17:10 Dose: 15 gm Documented by: April Information (Pharmacy Glycemic Mgmt Consult) 1 ea N/A UD PRN PRN Reason: Consult Stop: 06/23/20 15:06 Multi-Ingredient Cream (Eucerin Cr 120 Gm Jar) 1 appln EXT BID PRN PRN Reason: Rash Stop: 06/28/20 11:00 Multivitamins (Multivitamin Tab) 1 tab PO QAM [facility] Stop: 07/03/20 08:59 Last Admin: 06/15/20 08:41 Dose: 1 tab Documented by: Nystatin (Nystatin Susp 500,000 U/5 Ml [facility]) 5 ml PO QID [facility] Stop: 06/20/20 21:59 Last Admin: 06/15/20 17:52 Dose: 5 ml Documented by: Ondansetron HCl (Ondansetron Inj 2 Mg/Ml 2 Ml Vial) 4 mg IV Q6H PRN PRN Reason: Nausea Stop: 06/22/20 00:45 Last Admin: 06/14/20 20:07 Dose: 4 mg Documented by: Oxycodone HCl (Oxycodone Hcl Ir 5 Mg Tab (Immediate Release)) 5 mg PO Q8H PRN PRN Reason: severe neuropathic pain Stop: 06/24/20 21:05 Pantoprazole Sodium (Pantoprazole 40 Mg Tab) 40 mg PO QAM [facility] Stop: 06/26/20 18:29 Last Admin: 06/15/20 08:42 Dose: 40 mg Documented by: Polyethylene Glycol (Polyethylene (Miralax) 17 Gm Pack) 17 gm PO Q6H PRN PRN Reason: Constipation Stop: 07/13/20 18:55 Last Admin: 06/14/20 13:30 Dose: 17 gm Documented by: Potassium Chloride (Potassium Chloride Crtab 20 Meq Tabcr) 20 meq PO BID [facility] Stop: 07/08/20 10:29 Last Admin: 06/15/20 08:42 Dose: 20 meq Documented by: Prednisone (Prednisone 10 Mg Tablet) 10 mg PO QAM [facility] Stop: 06/18/20 08:59 Last Admin: 06/15/20 08:41 Dose: 10 mg Documented by: Senna/Docusate Sodium (Docusate Sodium/Senna 50/8.6mg Tab) 1 tab PO QAM MARY Stop: 07/14/20 08:59 Last Admin: 06/15/20 08:48 Dose: 1 tab Documented by: Thiamine HCl (Thiamine Hcl 100 Mg Tab) 100 mg PO BID MARY Stop: 06/28/20 08:59 Last Admin: 06/15/20 08:42 Dose: 100 mg Documented by: Vitamin B Complex/Folic Acid (Nephrocaps) 1 cap PO DAILY MARY Stop: 06/22/20 08:59 Last Admin: 06/15/20 08:40 Dose: 1 cap Documented by: Vitamin D (Cholecalciferol 1,000 Units 25 Mcg Tab) 1,000 units PO QAM [facility] Stop: 07/12/20 18:29 Last Admin: 06/15/20 08:41 Dose: 1,000 units Documented by: Zinc Sulfate (Zinc Sulfate 220 Mg Capsule) 220 mg PO QAM [facility] Stop: 07/12/20 18:29 Last Admin: 06/15/20 08:45 Dose: 220 mg Documented by:
[2020-06-15] MEDS: FUROSEMIDE 40 MG in SYRINGE 0 ML IV SCH (17:51)
[2020-06-15] MEDS: ACETAMINOPHEN 500 MG TAB PO SCH (17:54)
[2020-06-15] MEDS: ATORVASTATIN 40 MG TAB PO SCH (20:10)
[2020-06-16] MEDS: ACETAMINOPHEN 500 MG TAB PO SCH ×3 (01:32→17:55)
[2020-06-16] MEDS: FLUDROCORTISONE ACETATE 0.1 MG TAB PO SCH (08:28)
[2020-06-16] MEDS: THIAMINE HCL 100 MG TAB PO SCH ×2 (08:28→20:13)
[2020-06-16] MEDS: ASCORBIC ACID 500 MG TAB PO SCH ×2 (08:28→20:13)
[2020-06-16] MEDS: CHOLECALCIFEROL 1,000 UNITS 25 MCG TAB PO SCH (08:28)
[2020-06-16] MEDS: ASPIRIN 81 MG ECTAB PO SCH (08:28)
[2020-06-16] MEDS: FLUoxetine HCL 20 MG CAP PO SCH (08:28)
[2020-06-16] MEDS: FUROSEMIDE 40 MG in SYRINGE 0 ML IV SCH (08:28)
[2020-06-16] MEDS: ZINC SULFATE 220 MG CAPSULE PO SCH (08:28)
[2020-06-16] MEDS: NEPHROCAPS PO SCH (08:28)
[2020-06-16] MEDS: predniSONE 10 MG TABLET PO SCH (08:28)
[2020-06-16] MEDS: PANTOprazole 40 MG TAB PO SCH (08:28)
[2020-06-16] MEDS: POTASSIUM CHLORIDE CRTAB 20 MEQ TABCR PO SCH ×2 (08:29→20:11)
[2020-06-16] MEDS: MULTIVITAMIN TAB PO SCH (08:29)
[2020-06-16] MEDS: HEPARIN SOD 5,000 UNIT/0.5 ML VIAL SQ SCH ×2 (08:29→20:12)
[2020-06-16] MEDS: NYSTATIN SUSP 500,000 U/5 ML UDC PO SCH ×4 (08:29→20:11)
[2020-06-16] MEDS: GABAPENTIN 300 MG CAP PO SCH ×3 (08:29→20:12)
[2020-06-16] MEDS: INSULIN GLARGINE SOLOSTAR 100 UNITS/ML 3 ML PEN SC SCH (08:29)
[2020-06-16] MEDS: LEVOTHYROXINE SODIUM 137 MCG TABLET PO SCH (08:41)
[2020-06-16] MEDS: INSULIN ASPART 100 UNITS/ML 3 ML PEN SC SCH ×4 (08:45→20:06)
[2020-06-16] MEDS: DOCUSATE SODIUM/SENNA 50/8.6MG TAB PO SCH (09:35)
[2020-06-16] MEDS: INSULIN REGULAR 250 UNITS in SODIUM CHLORIDE 0.9% 247.5 ML IV SCH (11:03)
--- NOTE | 2020-06-16 15:38 | Hospitalist Progress Note ---
Date of Service June 16, 2020 Assessment & Plan (1) Acute respiratory failure with hypoxia: Acute respiratory distress syndrome with severe hypoxic respiratory failure on admission. Received one unit of conv plasma on 05/27. Steroids x 3 weeks have been tapered off. Was not a candidate for remdesivir 2/2 renal failure. Continues on high flow oxygen supplementation occasionally transitioning to oxymask. Cont PRN Lasix on top of Lasix 40mg IV dialy for now. His oxygenation ability is improving and desaturations are less significant. (2) Pneumonia due to COVID-19 virus: He completed a robust antibiotic course while admitted. (Doxycycline 100mg BID 5 dys, stopped for 2, resumed 05/30 for 7 full days, Ceftriaxone x 14 days, Cefepime for an additional 3 days after the ceftriaxone completed, and Flagyl for 8 days.) Cont care plan as outlined above with supportive care measures and steroids. (3) Diabetes mellitus type I: Brittle diabetic with recently demonstrated difficult to manage blood sugar, especially with steroids. Pt is reliably eating as thrush is getting better. Converted him to insulin drip 06/12 with plans to keep him on the drip for more consistent blood sugars. Will not be transitioning him off the insulin drip until he is more stable from a breathing standpoint. Lantus and prandial boluses to be decided on by glycemic pharmacist. Infiltration of peripheral IV site on 06/12 lead to hyperglycemia with glucose into the 500s. He did not develop acidosis before a new IV site was established and insulin was running through it with good effect. Blood glucose is currently coming down into normal range on the drip. (4) CKD (chronic kidney disease), stage III: Resolved to baseline renal function. Patient has Stage 3 CKD. Lasix on hold for now. (5) Thrush, oral: From prolonged steroids. Has a few days left. Tolerating p.o. (6) Diabetic neuropathy: Persistent. Home dose gabapentin was 600mg PO QID decreased to 300mg PO BID because of renal insufficiency. Cont with gabapentin 300mg PO TID dosing for now with current renal function. Cont scheduled Tylenol Tylenol and PRN oxy for discomfort with minimization of narcotic with current respiratory status. (7) Hypothyroidism: chronic, stable, Continue levothyroxine per home regimen. (8) Depression: chronic, stable. Cont Prozac per home regimen. (9) Constipation: Resolved, patient reports a BM yesterday and today. (10) DVT prophylaxis: Heparin SQ DNR/DNI Dipso-cont hopspitalization/PCU status, still requiring high flow oxygen supplementation. Prognosis poor but continuing treatment and supportive care at this time. Kenya Cagle DO [facility] Hospitalist Admission and Anticipated Discharge Date Admission Date: May 22, 2020 Subjective cc: covid pneumonia Patient consistently reports shortness of breath that is persistent but not progressively worse. He is tired, tolerating p.o., afebrile. He reports pain in his feet is improved from neuropathy although it still there. Continue scheduled Tylenol with breakthrough narcotic. Continue max gabapentin therapy which is less than his typical dose. Review of Systems Review of Systems: All systems reviewed & are unremarkable except as noted in Subjective Physical Exam Physical Exam: CONSTITUTIONAL: vitals as above, generally thin, inmate in restraints. EYES: normal conjunctivae, no scleral icterus ENT: external ear and nose normal, MMM RESPIRATORY: normal respiratory effort on high flow oxygen supplementation, easily desaturates with speaking or minimal exertion but not as much today. crackles heard throughout all lung case. CARDIOVASCULAR: regular rate and rhythm, S1 and 2 heard without murmurs, gallops or rubs, no JVD, no peripheral edema GASTROINTESTINAL: soft, nontender, nondistended, no guarding MUSCULOSKELETAL: generalized weakness, head is normocephalic and atraumatic SKIN: warm and dry NEUROLOGIC: CN 2-12 grossly intact, normal cognition, normal speech, no gross focal deficits. PSYCHIATRIC: alert cooperative and answering questions appropriately. Results & Data Results & Data ([facility]) Vital Signs (Past 12 Hours) Vital Signs Temp Pulse Pulse Resp BP Pulse Ox 06/16/20 12:08 36.7 C 75 20 142/80 H 89 L 06/16/20 10:42 72 18 93 06/16/20 09:41 82 26 H 91 06/16/20 09:00 77 26 H 91 06/16/20 08:30 70 28 H 82 L 06/16/20 08:07 73 21 90 06/16/20 07:37 36.7 C 74 21 133/80 93 06/16/20 03:55 78 24 98 Medications Administered Current Inpatient Medications Acetaminophen (Acetaminophen 500 Mg Tab) 1,000 mg PO Q8H PRN PRN Reason: pain/fever Stop: 07/10/20 21:59 Acetaminophen (Acetaminophen 500 Mg Tab) 1,000 mg PO Q8H MARY Stop: 07/15/20 17:29 Last Admin: 06/16/20 09:35 Dose: 1,000 mg Documented by: Albuterol (Albuterol Hfa 8 Gm Inhaler) 2 puffs INH Q4R PRN PRN Reason: shortness of breath Stop: 06/28/20 16:37 Last Admin: 06/09/20 11:23 Dose: 2 puffs Documented by: Ascorbic Acid (Ascorbic Acid 500 Mg Tab) 500 mg PO BID MARY Stop: 07/12/20 20:59 Last Admin: 06/16/20 08:28 Dose: 500 mg Documented by: Aspirin (Aspirin 81 Mg Ectab) 81 mg PO DAILY MARY Stop: 06/22/20 08:59 Last Admin: 06/16/20 08:28 Dose: 81 mg Documented by: Atorvastatin Calcium (Atorvastatin 40 Mg Tab) 80 mg PO HS MARY Stop: 06/22/20 20:59 Last Admin: 06/15/20 20:10 Dose: 80 mg Documented by: Dextrose (Dextrose 50% 50 Ml Syringe) 25 - 50 ml IV UD PRN; Protocol PRN Reason: Hypoglycemia Protocol Stop: 06/22/20 01:29 Last Admin: 06/15/20 16:17 Dose: 25 ml Documented by: Fludrocortisone Acetate (Fludrocortisone Acetate 0.1 Mg Tab) 0.3 mg PO QAM MARY Stop: 07/03/20 08:59 Last Admin: 06/16/20 08:28 Dose: 0.3 mg Documented by: Fluoxetine HCl (Fluoxetine Hcl 20 Mg Cap) 40 mg PO DAILY MARY Stop: 06/22/20 08:59 Last Admin: 06/16/20 08:28 Dose: 40 mg Documented by: Gabapentin (Gabapentin 300 Mg Cap) 300 mg PO TID MARY Stop: 07/11/20 08:59 Last Admin: 06/16/20 13:01 Dose: 300 mg Documented by: Glucagon (Glucagon For Inj 1 Mg Vial) 1 mg SQ UD PRN; Protocol PRN Reason: Hypoglycemia Protocol Stop: 06/22/20 01:29 Glucose (Glucose 40% Gel 15 Gm Tube) 15 - 30 gm PO UD PRN; Protocol PRN Reason: Hypoglycemia Protocol Stop: 06/22/20 01:29 Glucose (Glucose 10 Tabs/Tube) 4 - 8 tabs PO UD PRN; Protocol PRN Reason: Hypoglycemia Protocol Stop: 06/22/20 01:29 Last Admin: 05/29/20 21:15 Dose: 4 tabs Documented by: Heparin Sodium (Beef Lung) (Heparin 10 Unit/Ml 5 Ml Flush) 5 ml FLUSH PRN PRN PRN Reason: Flush Stop: 07/03/20 22:44 Heparin Sodium (Porcine) (Heparin Sod 5,000 Unit/0.5 Ml Vial) 5,000 units SQ Q12 MARY Stop: 07/03/20 08:59 Last Admin: 06/16/20 08:29 Dose: 5,000 units Documented by: Furosemide 20 mg/ Syringe 2 mls @ 4 mls/min IV BID17 [facility] Stop: 07/05/20 08:59 Last Admin: 06/12/20 17:16 Dose: 4 mls/min Documented by: Insulin Human Regular 250 (units/ Sodium Chloride) 250 mls @ 0.7 mls/hr IV .Q24H [facility]; Protocol Stop: 07/12/20 08:29 Last Titration: 06/16/20 15:09 Dose: 0.7 units/hr, 0.7 mls/hr Documented by: Furosemide 40 mg/ Syringe 4 mls @ 4 mls/min IV DAILY [facility] Stop: 07/15/20 17:29 Last Admin: 06/16/20 08:28 Dose: 4 mls/min Documented by: Insulin Aspart (Insulin Aspart 100 Units/Ml 3 Ml Pen) 0 units SC ACHS [facility]; Protocol Stop: 07/12/20 11:29 Last Admin: 06/16/20 12:47 Dose: 9 units Documented by: Insulin Glargine (Insulin Glargine Solostar 100 Units/Ml 3 Ml Pen) 10 units SC DAILY@0800 [facility]; Protocol Stop: 07/14/20 11:59 Last Admin: 06/16/20 08:29 Dose: 10 units Documented by: Levothyroxine Sodium (Levothyroxine Sodium 137 Mcg Tablet) 137 mcg PO DAILYBB MARY Stop: 06/22/20 06:29 Last Admin: 06/16/20 08:41 Dose: 137 mcg Documented by: Miscellaneous (Carbohydrates For Hypoglycemia ) 15 - 30 gm PO UD PRN PRN Reason: Hypoglycemia Treatment Stop: 06/22/20 01:29 Last Admin: 05/29/20 17:10 Dose: 15 gm Documented by: Miscellaneous Information (Pharmacy Glycemic Mgmt Consult) 1 ea N/A UD PRN PRN Reason: Consult Stop: 06/23/20 15:06 Multi-Ingredient Cream (Eucerin Cr 120 Gm Jar) 1 appln EXT BID PRN PRN Reason: Rash Stop: 06/28/20 11:00 Multivitamins (Multivitamin Tab) 1 tab PO QAM [facility] Stop: 07/03/20 08:59 Last Admin: 06/16/20 08:29 Dose: 1 tab Documented by: Nystatin (Nystatin Susp 500,000 U/5 Ml Udc) 5 ml PO QID [facility] Stop: 06/20/20 21:59 Last Admin: 06/16/20 12:18 Dose: 5 ml Documented by: Ondansetron HCl (Ondansetron Inj 2 Mg/Ml 2 Ml Vial) 4 mg IV Q6H PRN PRN Reason: Nausea Stop: 06/22/20 00:45 Last Admin: 06/14/20 20:07 Dose: 4 mg Documented by: Oxycodone HCl (Oxycodone Hcl Ir 5 Mg Tab (Immediate Release)) 5 mg PO Q8H PRN PRN Reason: severe neuropathic pain Stop: 06/24/20 21:05 Pantoprazole Sodium (Pantoprazole 40 Mg Tab) 40 mg PO QAM [facility] Stop: 06/26/20 18:29 Last Admin: 06/16/20 08:28 Dose: 40 mg Documented by: Polyethylene Glycol (Polyethylene (Miralax) 17 Gm Pack) 17 gm PO Q6H PRN PRN Reason: Constipation Stop: 07/13/20 18:55 Last Admin: 06/14/20 13:30 Dose: 17 gm Documented by: Potassium Chloride (Potassium Chloride Crtab 20 Meq Tabcr) 20 meq PO BID [facility] Stop: 07/08/20 10:29 Last Admin: 06/16/20 08:29 Dose: 20 meq Documented by: Prednisone (Prednisone 10 Mg Tablet) 10 mg PO QAM [facility] Stop: 06/18/20 08:59 Last Admin: 06/16/20 08:28 Dose: 10 mg Documented by: Senna/Docusate Sodium (Docusate Sodium/Senna 50/8.6mg Tab) 1 tab PO QAM MARY Stop: 07/14/20 08:59 Last Admin: 06/16/20 09:35 Dose: 1 tab Documented by: Thiamine HCl (Thiamine Hcl 100 Mg Tab) 100 mg PO BID MARY Stop: 06/28/20 08:59 Last Admin: 06/16/20 08:28 Dose: 100 mg Documented by: Vitamin B Complex/Folic Acid (Nephrocaps) 1 cap PO DAILY MARY Stop: 06/22/20 08:59 Last Admin: 06/16/20 08:28 Dose: 1 cap Documented by: Vitamin D (Cholecalciferol 1,000 Units 25 Mcg Tab) 1,000 units PO QAM [facility] Stop: 07/12/20 18:29 Last Admin: 06/16/20 08:28 Dose: 1,000 units Documented by: Zinc Sulfate (Zinc Sulfate 220 Mg Capsule) 220 mg PO QAM [facility] Stop: 07/12/20 18:29 Last Admin: 06/16/20 08:28 Dose: 220 mg Documented by: (1) CKD (chronic kidney disease), stage III Chronic kidney disease stage 3 subtype: stage 3b (GFR 30-44) Qualified Code(s): N18.32 - Chronic kidney disease, stage 3b
[2020-06-16] MEDS ORDERED: FUROSEMIDE 20 MG in SYRINGE 0 ML IV ONE (19:30)
[2020-06-16] MEDS: ATORVASTATIN 40 MG TAB PO SCH (20:14)
[2020-06-17] MEDS: ACETAMINOPHEN 500 MG TAB PO SCH ×3 (01:02→18:17)
[2020-06-17] MEDS: LEVOTHYROXINE SODIUM 137 MCG TABLET PO SCH (05:47)
[2020-06-17 07:16] LABS: Hematocrit (blood only) 24.6 % (42-52); Hemoglobin 7.8 g/dL (14.0-18.0); Mean Corpuscular Hemoglobin 27.9 pg (25-34); Mean Corpuscular Hgb Conc 31.7 g/dL (32-36); Mean Corpuscular Volume 87.9 fL (80-100); Mean Platelet Volume 10.7 fL (7.4-10.4); Platelet Count 445 K/uL (130-400); RDW Coefficient of Variation 17.6 % (11.5-14.5); RDW Standard Deviation 56.5 fL (36.4-46.3); White Blood Count 10.54 K/uL (4.8-10.8)
[2020-06-17 07:39] LABS: BUN Creatinine Ratio 32.2 (10-20); C Reactive Protein 1.48 mg/dl (0-0.29); Calcium 8.2 mg/dl (8.5-10.1); Creatinine Clr Calc Pharmacy 37.9 ml/min; Est GFR (African American) 33.9; Est GFR (Non-African American) 29.2; Magnesium 2.2 mg/dl (1.8-2.4); Potassium 4.4 mmol/L (3.5-5.1)
[2020-06-17] MEDS: FLUDROCORTISONE ACETATE 0.1 MG TAB PO SCH (08:43)
[2020-06-17] MEDS: FLUoxetine HCL 20 MG CAP PO SCH (08:43)
[2020-06-17] MEDS: ASPIRIN 81 MG ECTAB PO SCH (08:44)
[2020-06-17] MEDS: HEPARIN SOD 5,000 UNIT/0.5 ML VIAL SQ SCH ×2 (08:44→21:06)
[2020-06-17] MEDS: GABAPENTIN 300 MG CAP PO SCH ×3 (08:44→21:06)
[2020-06-17] MEDS: NEPHROCAPS PO SCH (08:44)
[2020-06-17] MEDS: predniSONE 10 MG TABLET PO SCH (08:44)
[2020-06-17] MEDS: CHOLECALCIFEROL 1,000 UNITS 25 MCG TAB PO SCH (08:45)
[2020-06-17] MEDS: MULTIVITAMIN TAB PO SCH (08:45)
[2020-06-17] MEDS: PANTOprazole 40 MG TAB PO SCH (08:45)
[2020-06-17] MEDS: THIAMINE HCL 100 MG TAB PO SCH ×2 (08:45→21:06)
[2020-06-17] MEDS: ASCORBIC ACID 500 MG TAB PO SCH ×2 (08:45→21:05)
[2020-06-17] MEDS: POTASSIUM CHLORIDE CRTAB 20 MEQ TABCR PO SCH ×2 (08:46→21:05)
[2020-06-17] MEDS: NYSTATIN SUSP 500,000 U/5 ML UDC PO SCH ×4 (08:46→21:04)
[2020-06-17] MEDS: INSULIN ASPART 100 UNITS/ML 3 ML PEN SC SCH ×4 (08:47→21:02)
[2020-06-17] MEDS: INSULIN GLARGINE SOLOSTAR 100 UNITS/ML 3 ML PEN SC SCH (08:47)
[2020-06-17] MEDS: ZINC SULFATE 220 MG CAPSULE PO SCH (08:47)
[2020-06-17] MEDS: FUROSEMIDE 40 MG in SYRINGE 0 ML IV SCH (08:52)
[2020-06-17] MEDS: DOCUSATE SODIUM/SENNA 50/8.6MG TAB PO SCH (08:52)
--- NOTE | 2020-06-17 09:00 | XRay Report ---
XR chest 1V portable HISTORY: COVID, persistent hypoxia COMPARISON: Chest 06/13/2020. FINDINGS: Cardiac silhouette remains enlarged. Trace bilateral pleural effusions. No pneumothorax. Bi lateral airspace opacities have progressed. This most pronounced within the left upper lobe. Diffuse interstitial thickening is again noted. IMPRESSION: Progressive bilateral airspace opacities consistent with a worsening pneumonia. This is most pronounc ed within the left upper lobe. ACT 112: Negative or not required by law. Electronically signed by: Tani Contreras M.D. 06/17/2020 8:59 AM
[2020-06-17] MEDS: INSULIN REGULAR 250 UNITS in SODIUM CHLORIDE 0.9% 247.5 ML IV SCH (09:31)
[2020-06-17] MEDS: ALBUTEROL HFA 8 GM INHALER INH PRN ×2 (09:50→19:24)
[2020-06-17] MEDS ORDERED: INSULIN GLARGINE SOLOSTAR 100 UNITS/ML 3 ML PEN SC ONE ×3 (10:30→21:00)
--- NOTE | 2020-06-17 12:45 | Pharmacy Report ---
Pharmacy Glycemic Short Note 2 - Date of Service June 17, 2020 - Glycemic Short BSG Results (Last 24 hours): 06/16/20 06/16/20 06/16/20 13:03 14:00 15:08 Glucose POC Glucose 138 H 153 H 163 H 06/16/20 06/16/20 06/16/20 16:11 18:39 19:18 Glucose POC Glucose 142 H 181 H 180 H 06/16/20 06/16/20 06/16/20 20:00 21:08 23:20 Glucose POC Glucose 174 H 170 H 119 H 06/17/20 06/17/20 06/17/20 00:16 01:14 02:16 Glucose POC Glucose 115 H 106 H 118 H 06/17/20 06/17/20 06/17/20 03:30 04:28 05:39 Glucose POC Glucose 105 H 118 H 122 H 06/17/20 06/17/20 06/17/20 06:02 06:36 07:29 Glucose 114 H POC Glucose 154 H 155 H 06/17/20 06/17/20 08:41 11:40 Glucose POC Glucose 161 H 235 H Outpatient Anti-diabetic Regimen: * Lantus 15 units SC qAM, 8 units SC qPM * A1c = 8.3 % on 05/23/20 ASSESSMENT: 06/17: * Received request from Hospitalist to transition patient off of insulin drip this AM * Patient continues on Prednisone 10mg daily * Over the last 24 hrs patient has been requiring infusion rates of 0.5- 0.8units/hr in addition to receiving once daily Lantus 10 units * Spoke with patient's RN, he is tolerating his diet * Will give supplemental Lantus this AM and give a scaled Lantus dose this PM with plans to transition him to his full outpt dose tomorrow * Novolog prandial doses will be based upon those producing desirable results w/ meals PLAN FOR INPATIENT GLYCEMIC CONTROL: * Basal insulin * Lantus 10 units x 1 given this AM, give additional 10 units x 1, then dose per scale this PM: 0 units if BSG less than 110, 4 units if 110-200, 7 units if greater than 200. * Beginning 06/18: Lantus 15 units AM + 8 units PM * Bolus insulin * Novolog SQ ACHS * Goal range: 110-140mg/dL * Correction Factor: 25mg/dL/unit * Nutritional / Prandial insulin per carb ratio of 1 unit per 6 grams CHO consumed Plan for discharge: TBD
--- NOTE | 2020-06-17 15:43 | Hospitalist Progress Note ---
Date of Service June 17, 2020 Assessment & Plan (1) Acute respiratory failure with hypoxia: Acute respiratory distress syndrome with severe hypoxic respiratory failure on admission secondary to COVID-19 infection Received one unit of conv plasma on 05/27. Steroids x 3 weeks have been tapered off. Was not a candidate for remdesivir 2/2 renal failure. Continues on high flow oxygen supplementation occasionally transitioning to oxymask. Still requiring high flow oxygen with FiO2 of 40 (2) Pneumonia due to COVID-19 virus: He completed a robust antibiotic course while admitted. (Doxycycline 100mg BID 5 dys, stopped for 2, resumed 05/30 for 7 full days, Ceftriaxone x 14 days, Cefepime for an additional 3 days after the ceftriaxone completed, and Flagyl for 8 days.) Cont care plan as outlined above with supportive care measures and steroids. We will get repeat COVID-19 test if negative he will be taken out from the floor with unit (3) Diabetes mellitus type I: Brittle diabetic with recently demonstrated difficult to manage blood sugar, especially with steroids. Pt is reliably eating as thrush is getting better. Converted him to insulin drip 06/12 with plans to keep him on the drip for more consistent blood sugars. Blood sugar has been stable and the insulin drip has been discontinued from today Management as per glycemic pharmacist (4) CKD (chronic kidney disease), stage III: Resolved to baseline renal function. Patient has Stage 3 CKD. Kidney function remains stable Lasix doses have been adjusted (5) Thrush, oral: From prolonged steroids. Has a few days left. Tolerating p.o. (6) Diabetic neuropathy: Persistent. Home dose gabapentin was 600mg PO QID decreased to 300mg PO BID because of renal insufficiency. Cont with gabapentin 300mg PO TID dosing for now with current renal function. Cont scheduled Tylenol Tylenol and PRN oxy for discomfort with minimization of narcotic with current respiratory status. (7) Hypothyroidism: chronic, stable, Continue levothyroxine per home regimen. (8) Depression: chronic, stable. Cont Prozac per home regimen. (9) Constipation: Resolved, BM today. (10) DVT prophylaxis: Heparin SQ DNR/DNI Dipso-cont hopspitalization/PCU status, still requiring high flow oxygen supplementation. Prognosis poor but continuing treatment and supportive care at this time. Admission and Anticipated Discharge Date Admission Date: May 22, 2020 Subjective 06/17/2020 The patient was seen and examined in telemetry/Covid unit He has been feeling a little better since the left team about 1 week ago He has been requiring high flow oxygen at around FiO2 of 40 Denies any significant symptoms except weakness and tiredness Review of Systems Review of Systems: All systems reviewed and are unremarkable except as noted below Constitutional: + weakness Respiratory: no dyspnea Neurologic: + generalized weakness; no tremor(s), no headache(s) and no confusion Physical Exam Physical Exam: Lying in bed with moderate shortness of breath at rest Constitutional: well developed, well nourished, + acute distress (Due to shortness of breath) and + ill appearing Eyes: PERRL, conjunctivae normal, anicteric sclerae ENMT: external ear and nose normal, oropharynx normal Neck: trachea midline, no thyromegaly Respiratory: + respiratory distress, + labored breathing, + uses accessory muscles and + cough Auscultation: + diminished lung sounds, + crackles and + wheezes Cardiovascular: Rate/Rhythm: regular rate and regular rhythm Heart Sounds: no murmur Gastrointestinal (Abdomen): Inspection/Auscultation: normal bowel sounds; abdomen not distended Percussion/Palpation: abdomen soft; abdomen nontender Musculoskeletal: No acute arthritis in any joint Neurologic: Alert, awake and oriented x3 Psychiatric: A+Ox3, euthymic affect Lymphatic: no cervical or axillary lymphadenopathy Results & Data Results & Data ([facility]) Vital Signs (Past 12 Hours) Vital Signs Temp Pulse Pulse Resp BP Pulse Ox 06/17/20 15:10 85 16 96 06/17/20 11:40 36.5 C 74 16 117/74 91 06/17/20 11:30 84 20 92 06/17/20 10:26 80 96 06/17/20 09:50 76 20 90 06/17/20 09:30 75 24 94 06/17/20 09:00 75 26 H 91 06/17/20 08:30 28 H 90 06/17/20 08:25 28 H 72 L 06/17/20 07:51 71 24 92 06/17/20 07:43 36.5 C 73 22 130/77 83 L 06/17/20 07:30 20 94 06/17/20 03:48 75 18 107/72 94 Laboratory Results Short CBC 06/17/20 Range/Units 06:02 WBC 10.54 (4.8-10.8) K/uL Hgb 7.8 L (14.0-18.0) g/dL Hct 24.6 L (42-52) % Plt Count 445 H (130-400) K/uL BMP 06/17/20 06:02 Sodium 146 H Potassium 4.4 Chloride 114 H Carbon Dioxide 28 BUN 77 H Creatinine 2.39 H Glucose 114 H Calcium 8.2 L Medications Administered Current Inpatient Medications Acetaminophen (Acetaminophen 500 Mg Tab) 1,000 mg PO Q8H PRN PRN Reason: pain/fever Stop: 07/10/20 21:59 Last Admin: 06/17/20 08:51 Dose: 1,000 mg Documented by: Acetaminophen (Acetaminophen 500 Mg Tab) 1,000 mg PO Q8H MARY Stop: 07/15/20 17:29 Last Admin: 06/17/20 09:50 Dose: Not Given Documented by: Albuterol (Albuterol Hfa 8 Gm Inhaler) 2 puffs INH Q4R PRN PRN Reason: shortness of breath Stop: 06/28/20 16:37 Last Admin: 06/17/20 09:50 Dose: 2 puffs Documented by: Ascorbic Acid (Ascorbic Acid 500 Mg Tab) 500 mg PO BID MARY Stop: 07/12/20 20:59 Last Admin: 06/17/20 08:45 Dose: 500 mg Documented by: Aspirin (Aspirin 81 Mg Ectab) 81 mg PO DAILY MARY Stop: 06/22/20 08:59 Last Admin: 06/17/20 08:44 Dose: 81 mg Documented by: Atorvastatin Calcium (Atorvastatin 40 Mg Tab) 80 mg PO HS MARY Stop: 06/22/20 20:59 Last Admin: 06/16/20 20:14 Dose: 80 mg Documented by: Dextrose (Dextrose 50% 50 Ml Syringe) 25 - 50 ml IV UD PRN; Protocol PRN Reason: Hypoglycemia Protocol Stop: 06/22/20 01:29 Last Admin: 06/15/20 16:17 Dose: 25 ml Documented by: Fludrocortisone Acetate (Fludrocortisone Acetate 0.1 Mg Tab) 0.3 mg PO QAM MARY Stop: 07/03/20 08:59 Last Admin: 06/17/20 08:43 Dose: 0.3 mg Documented by: Fluoxetine HCl (Fluoxetine Hcl 20 Mg Cap) 40 mg PO DAILY MARY Stop: 06/22/20 08:59 Last Admin: 06/17/20 08:43 Dose: 40 mg Documented by: Gabapentin (Gabapentin 300 Mg Cap) 300 mg PO TID MARY Stop: 07/11/20 08:59 Last Admin: 06/17/20 13:00 Dose: 300 mg Documented by: Glucagon (Glucagon For Inj 1 Mg Vial) 1 mg SQ UD PRN; Protocol PRN Reason: Hypoglycemia Protocol Stop: 06/22/20 01:29 Glucose (Glucose 40% Gel 15 Gm Tube) 15 - 30 gm PO UD PRN; Protocol PRN Reason: Hypoglycemia Protocol Stop: 06/22/20 01:29 Glucose (Glucose 10 Tabs/Tube) 4 - 8 tabs PO UD PRN; Protocol PRN Reason: Hypoglycemia Protocol Stop: 06/22/20 01:29 Last Admin: 05/29/20 21:15 Dose: 4 tabs Documented by: Heparin Sodium (Beef Lung) (Heparin 10 Unit/Ml 5 Ml Flush) 5 ml FLUSH PRN PRN PRN Reason: Flush Stop: 07/03/20 22:44 Heparin Sodium (Porcine) (Heparin Sod 5,000 Unit/0.5 Ml Vial) 5,000 units SQ Q12 MARY Stop: 07/03/20 08:59 Last Admin: 06/17/20 08:44 Dose: 5,000 units Documented by: Furosemide 20 mg/ Syringe 2 mls @ 4 mls/min IV BID17 [facility] Stop: 07/05/20 08:59 Last Admin: 06/12/20 17:16 Dose: 4 mls/min Documented by: Furosemide 40 mg/ Syringe 4 mls @ 4 mls/min IV DAILY MARY Stop: 07/15/20 17:29 Last Admin: 06/17/20 08:52 Dose: 4 mls/min Documented by: Insulin Aspart (Insulin Aspart 100 Units/Ml 3 Ml Pen) 0 units SC ACHS [facility]; Protocol Stop: 07/12/20 11:29 Last Admin: 06/17/20 12:55 Dose: 14 units Documented by: Insulin Glargine (Insulin Glargine Solostar 100 Units/Ml 3 Ml Pen) 15 units SC QAM [facility]; Protocol Stop: 07/18/20 08:59 Insulin Glargine (Insulin Glargine Solostar 100 Units/Ml 3 Ml Pen) 0 units SC [facility]; Protocol Stop: 06/17/20 21:01 Insulin Glargine (Insulin Glargine Solostar 100 Units/Ml 3 Ml Pen) 8 units SC [facility]; Protocol Stop: 07/18/20 20:59 Levothyroxine Sodium (Levothyroxine Sodium 137 Mcg Tablet) 137 mcg PO DAILYBB [facility] Stop: 06/22/20 06:29 Last Admin: 06/17/20 05:47 Dose: 137 mcg Documented by: Miscellaneous (Carbohydrates For Hypoglycemia ) 15 - 30 gm PO UD PRN PRN Reason: Hypoglycemia Treatment Stop: 06/22/20 01:29 Last Admin: 05/29/20 17:10 Dose: 15 gm Documented by: Miscellaneous Information (Pharmacy Glycemic Mgmt Consult) 1 ea N/A UD PRN PRN Reason: Consult Stop: 06/23/20 15:06 Multi-Ingredient Cream (Eucerin Cr 120 Gm Jar) 1 appln EXT BID PRN PRN Reason: Rash Stop: 06/28/20 11:00 Multivitamins (Multivitamin Tab) 1 tab PO [facility] Stop: 07/03/20 08:59 Last Admin: 06/17/20 08:45 Dose: 1 tab Documented by: Nystatin (Nystatin Susp 500,000 U/5 Ml [facility]) 5 ml PO QID [facility] Stop: 06/20/20 21:59 Last Admin: 06/17/20 12:57 Dose: 5 ml Documented by: Ondansetron HCl (Ondansetron Inj 2 Mg/Ml 2 Ml Vial) 4 mg IV Q6H PRN PRN Reason: Nausea Stop: 06/22/20 00:45 Last Admin: 06/14/20 20:07 Dose: 4 mg Documented by: Oxycodone HCl (Oxycodone Hcl Ir 5 Mg Tab (Immediate Release)) 5 mg PO Q8H PRN PRN Reason: severe neuropathic pain Stop: 06/24/20 21:05 Pantoprazole Sodium (Pantoprazole 40 Mg Tab) 40 mg PO QAM [facility] Stop: 06/26/20 18:29 Last Admin: 06/17/20 08:45 Dose: 40 mg Documented by: Polyethylene Glycol (Polyethylene (Miralax) 17 Gm Pack) 17 gm PO Q6H PRN PRN Reason: Constipation Stop: 07/13/20 18:55 Last Admin: 06/14/20 13:30 Dose: 17 gm Documented by: Potassium Chloride (Potassium Chloride Crtab 20 Meq Tabcr) 20 meq PO BID MARY Stop: 07/08/20 10:29 Last Admin: 06/17/20 08:46 Dose: 20 meq Documented by: Prednisone (Prednisone 10 Mg Tablet) 10 mg PO QAM MARY Stop: 06/18/20 08:59 Last Admin: 06/17/20 08:44 Dose: 10 mg Documented by: Senna/Docusate Sodium (Docusate Sodium/Senna 50/8.6mg Tab) 1 tab PO QAM MARY Stop: 07/14/20 08:59 Last Admin: 06/17/20 08:52 Dose: 1 tab Documented by: Thiamine HCl (Thiamine Hcl 100 Mg Tab) 100 mg PO BID MARY Stop: 06/28/20 08:59 Last Admin: 06/17/20 08:45 Dose: 100 mg Documented by: Vitamin B Complex/Folic Acid (Nephrocaps) 1 cap PO DAILY MARY Stop: 06/22/20 08:59 Last Admin: 06/17/20 08:44 Dose: 1 cap Documented by: Vitamin D (Cholecalciferol 1,000 Units 25 Mcg Tab) 1,000 units PO QAM MARY Stop: 07/12/20 18:29 Last Admin: 06/17/20 08:45 Dose: 1,000 units Documented by: Zinc Sulfate (Zinc Sulfate 220 Mg Capsule) 220 mg PO QAM MARY Stop: 07/12/20 18:29 Last Admin: 06/17/20 08:47 Dose: 220 mg Documented by: (1) CKD (chronic kidney disease), stage III Chronic kidney disease stage 3 subtype: stage 3b (GFR 30-44) Qualified Code(s): N18.32 - Chronic kidney disease, stage 3b
[2020-06-17 18:50] LABS: Influenza A virus by PCR Negative (Neg); Influenza B virus by PCR Negative (Neg); RSV by PCR Negative (Neg)
[2020-06-17 18:54] LABS: SARS CoV2 RNA(COVID-19) InHosp POSITIVE (Negative)
[2020-06-17] MEDS: ATORVASTATIN 40 MG TAB PO SCH (21:04)
[2020-06-18] MEDS: ACETAMINOPHEN 500 MG TAB PO SCH ×3 (01:20→17:22)
[2020-06-18] MEDS: LEVOTHYROXINE SODIUM 137 MCG TABLET PO SCH (04:46)
[2020-06-18] MEDS: NYSTATIN SUSP 500,000 U/5 ML UDC PO SCH ×4 (08:01→21:05)
[2020-06-18] MEDS: POTASSIUM CHLORIDE CRTAB 20 MEQ TABCR PO SCH ×2 (08:01→21:07)
[2020-06-18] MEDS: GABAPENTIN 300 MG CAP PO SCH ×3 (08:01→21:06)
[2020-06-18] MEDS: HEPARIN SOD 5,000 UNIT/0.5 ML VIAL SQ SCH ×2 (08:01→21:09)
[2020-06-18] MEDS: ASPIRIN 81 MG ECTAB PO SCH (08:02)
[2020-06-18] MEDS: FLUoxetine HCL 20 MG CAP PO SCH (08:02)
[2020-06-18] MEDS: NEPHROCAPS PO SCH (08:02)
[2020-06-18] MEDS: THIAMINE HCL 100 MG TAB PO SCH ×2 (08:02→21:08)
[2020-06-18] MEDS: MULTIVITAMIN TAB PO SCH (08:02)
[2020-06-18] MEDS: ZINC SULFATE 220 MG CAPSULE PO SCH (08:02)
[2020-06-18] MEDS: FLUDROCORTISONE ACETATE 0.1 MG TAB PO SCH (08:02)
[2020-06-18] MEDS: FUROSEMIDE 40 MG in SYRINGE 0 ML IV SCH (08:03)
[2020-06-18] MEDS: PANTOprazole 40 MG TAB PO SCH (08:03)
[2020-06-18] MEDS: CHOLECALCIFEROL 1,000 UNITS 25 MCG TAB PO SCH (08:03)
[2020-06-18] MEDS: ASCORBIC ACID 500 MG TAB PO SCH ×2 (08:03→21:09)
[2020-06-18] MEDS: INSULIN GLARGINE SOLOSTAR 100 UNITS/ML 3 ML PEN SC SCH (08:28)
[2020-06-18] MEDS: INSULIN ASPART 100 UNITS/ML 3 ML PEN SC SCH ×4 (08:28→22:21)
[2020-06-18] MEDS: DOCUSATE SODIUM/SENNA 50/8.6MG TAB PO SCH (08:33)
--- NOTE | 2020-06-18 13:02 | Hospitalist Progress Note ---
Date of Service June 18, 2020 Assessment & Plan (1) Acute respiratory failure with hypoxia: Acute respiratory distress syndrome with severe hypoxic respiratory failure on admission secondary to COVID-19 infection Received one unit of conv plasma on 05/27. Steroids x 3 weeks have been tapered off. Was not a candidate for remdesivir 2/2 renal failure. Continues on high flow oxygen supplementation occasionally transitioning to oxymask. Still requiring high flow oxygen with FiO2 of 40 Saturating well with 8 L O2 via oxygen mask (2) Pneumonia due to COVID-19 virus: He completed a robust antibiotic course while admitted. (Doxycycline 10 0mg BID 5 dys, stopped for 2, resumed 05/30 for 7 full days, Ceftriaxone x 14 days, Cefepime for an additional 3 days after the ceftriaxone completed, and Flagyl for 8 days.) Cont care plan as outlined above with supportive care measures and steroids. Repeat COVID-19 is positive (3) Diabetes mellitus type I: Brittle diabetic with recently demonstrated difficult to manage blood sugar, especially with steroids. Pt is reliably eating as thrush is getting better. Converted him to insulin drip 06/12 with plans to keep him on the drip for more consistent blood sugars. Blood sugar has been stable and the insulin drip has been discontinued from today Management as per glycemic pharmacist (4) CKD (chronic kidney disease), stage III: Resolved to baseline renal function. Patient has Stage 3 CKD. Kidney function remains stable Lasix doses have been adjusted Remains reasonably stable (5) Thrush, oral: From prolonged steroids. Has a few days left. Tolerating p.o. (6) Diabetic neuropathy: Persistent. Home dose gabapentin was 600mg PO QID decreased to 300mg PO BID because of renal insufficiency. Cont with gabapentin 300mg PO TID dosing for now with current renal function. Cont scheduled Tylenol Tylenol and PRN oxy for discomfort with minimization of narcotic with current respiratory status. (7) Hypothyroidism: chronic, stable, Continue levothyroxine per home regimen. (8) Depression: chronic, stable. Cont Prozac per home regimen. (9) Constipation: Resolved, BM today. (10) DVT prophylaxis: Heparin SQ DNR/DNI Dipso-cont hopspitalization/PCU status, still requiring high flow oxygen supplementation. Prognosis poor but continuing treatment and supportive care at this time. Admission and Anticipated Discharge Date Admission Date: May 22, 2020 Subjective 06/17/2020 The patient was seen and examined in telemetry/Covid unit He has been feeling a little better since the left team about 1 week ago He has been requiring high flow oxygen at around FiO2 of 40 Denies any significant symptoms except weakness and tiredness 06/18/2020 The patient was seen and examined in telemetry/Covid unit He remains stable with shortness of breath on minimal exertion Still requiring high flow oxygen at 8 L/min via oxygen mask Review of Systems Review of Systems: All systems reviewed and are unremarkable except as noted below Constitutional: + weakness Neurologic: + generalized weakness; no tremor(s), no headache(s) and no confu bernie Physical Exam Physical Exam: Lying in bed with moderate shortness of breath at rest Constitutional: well developed, well nourished, + acute distress (Due to shortness of breath) and + ill appearing Eyes: PERRL, conjunctivae normal, anicteric sclerae ENMT: external ear and nose normal, oropharynx normal Neck: trachea midline, no thyromegaly Respiratory: + respiratory distress, + labored breathing, + uses accessory muscles and + cough Auscultation: + diminished lung sounds, + crackles and + wheezes Cardiovascular: Rate/Rhythm: regular rate and regular rhythm Heart Sounds: no murmur Gastrointestinal (Abdomen): Inspection/Auscultation: normal bowel sounds; abdomen not distended Percussion/Palpation: abdomen soft; abdomen nontender Musculoskeletal: No acute arthritis in any joint Neurologic: Alert, awake and oriented x3. Generally weak but no focal neuro deficit Psychiatric: A+Ox3, euthymic affect Lymphatic: no cervical or axillary lymphadenopathy Results & Data Results & Data ([facility]) Vital Signs (Past 12 Hours) Vital Signs Temp Pulse Pulse Pulse Resp BP Pulse Ox 06/18/20 12:08 100 06/18/20 11:40 77 18 94 06/18/20 11:24 36.6 C 77 19 121/74 90 06/18/20 07:38 36.9 C 76 18 138/84 87 L 06/18/20 07:20 75 18 93 06/18/20 04:29 36.6 C 77 18 134/77 90 06/18/20 03:24 75 20 92 Medications Administered Current Inpatient Medications Acetaminophen (Acetaminophen 500 Mg Tab) 1,000 mg PO Q8H PRN PRN Reason: pain/fever Stop: 12/18/20 21:59 Last Admin: 06/17/20 08:51 Dose: 1,000 mg Documented by: Acetaminophen (Acetaminophen 500 Mg Tab) 1,000 mg PO Q8H MARY Stop: 07/15/20 17:29 Last Admin: 06/18/20 08:34 Dose: 1,000 mg Documented by: Albuterol (Albuterol Hfa 8 Gm Inhaler) 2 puffs INH Q4R PRN PRN Reason: shortness of breath Stop: 06/28/20 16:37 Last Admin: 06/17/20 19:24 Dose: 2 puffs Documented by: Ascorbic Acid (Ascorbic Acid 500 Mg Tab) 500 mg PO BID MARY Stop: 07/12/20 20:59 Last Admin: 06/18/20 08:03 Dose: 500 mg Documented by: Aspirin (Aspirin 81 Mg Ectab) 81 mg PO DAILY MARY Stop: 06/22/20 08:59 Last Admin: 06/18/20 08:02 Dose: 81 mg Documented by: Atorvastatin Calcium (Atorvastatin 40 Mg Tab) 80 mg PO HS MARY Stop: 06/22/20 20:59 Last Admin: 06/17/20 21:04 Dose: 80 mg Documented by: Dextrose (Dextrose 50% 50 Ml Syringe) 25 - 50 ml IV UD PRN; Protocol PRN Reason: Hypoglycemia Protocol Stop: 06/22/20 01:29 Last Admin: 06/15/20 16:17 Dose: 25 ml Documented by: Fludrocortisone Acetate (Fludrocortisone Acetate 0.1 Mg Tab) 0.3 mg PO QAM MARY Stop: 07/03/20 08:59 Last Admin: 06/18/20 08:02 Dose: 0.3 mg Documented by: Fluoxetine HCl (Fluoxetine Hcl 20 Mg Cap) 40 mg PO DAILY MARY Stop: 06/22/20 08:59 Last Admin: 06/18/20 08:02 Dose: 40 mg Documented by: Gabapentin (Gabapentin 300 Mg Cap) 300 mg PO TID MARY Stop: 07/11/20 08:59 Last Admin: 06/18/20 08:01 Dose: 300 mg Documented by: Glucagon (Glucagon For Inj 1 Mg Vial) 1 mg SQ UD PRN; Protocol PRN Reason: Hypoglycemia Protocol Stop: 06/22/20 01:29 Glucose (Glucose 40% Gel 15 Gm Tube) 15 - 30 gm PO UD PRN; Protocol PRN Reason: Hypoglycemia Protocol Stop: 06/22/20 01:29 Glucose (Glucose 10 Tabs/Tube) 4 - 8 tabs PO UD PRN; Protocol PRN Reason: Hypoglycemia Protocol Stop: 06/22/20 01:29 Last Admin: 05/29/20 21:15 Dose: 4 tabs Documented by: Heparin Sodium (Beef Lung) (Heparin 10 Unit/Ml 5 Ml Flush) 5 ml FLUSH PRN PRN PRN Reason: Flush Stop: 07/03/20 22:44 Heparin Sodium (Porcine) (Heparin Sod 5,000 Unit/0.5 Ml Vial) 5,000 units SQ Q12 MARY Stop: 07/03/20 08:59 Last Admin: 06/18/20 08:01 Dose: 5,000 units Documented by: Furosemide 20 mg/ Syringe 2 mls @ 4 mls/min IV BID17 [facility] Stop: 07/05/20 08:59 Last Admin: 06/12/20 17:16 Dose: 4 mls/min Documented by: Furosemide 40 mg/ Syringe 4 mls @ 4 mls/min IV DAILY MARY Stop: 07/15/20 17:29 Last Admin: 06/18/20 08:03 Dose: 4 mls/min Documented by: Insulin Aspart (Insulin Aspart 100 Units/Ml 3 Ml Pen) 0 units SC [facility]; Protocol Stop: 07/12/20 11:29 Last Admin: 06/18/20 08:28 Dose: 12 units Documented by: Insulin Glargine (Insulin Glargine Solostar 100 Units/Ml 3 Ml Pen) 15 [facility]; Protocol Stop: 07/18/20 08:59 Last Admin: 06/18/20 08:28 Dose: 15 units Documented by: Insulin Glargine (Insulin Glargine Solostar 100 Units/Ml 3 Ml Pen) 8 units SC [facility]; Protocol Stop: 07/18/20 20:59 Levothyroxine Sodium (Levothyroxine Sodium 137 Mcg Tablet) 137 mcg PO DAILYBB MARY Stop: 06/22/20 06:29 Last Admin: 06/18/20 04:46 Dose: 137 mcg Documented by: Miscellaneous (Carbohydrates For Hypoglycemia ) 15 - 30 gm PO UD PRN PRN Reason: Hypoglycemia Treatment Stop: 06/22/20 01:29 Last Admin: 05/29/20 17:10 Dose: 15 gm Documented by: Miscellaneous Information (Pharmacy Glycemic Mgmt Consult) 1 ea N/A UD PRN PRN Reason: Consult Stop: 06/23/20 15:06 Multi-Ingredient Cream (Eucerin Cr 120 Gm Jar) 1 appln EXT BID PRN PRN Reason: Rash Stop: 06/28/20 11:00 Multivitamins (Multivitamin Tab) 1 tab PO QAM [facility] Stop: 07/03/20 08:59 Last Admin: 06/18/20 08:02 Dose: 1 tab Documented by: Nystatin (Nystatin Susp 500,000 U/5 Ml [facility]) 5 ml PO QID MARY Stop: 06/20/20 21:59 Last Admin: 06/18/20 08:01 Dose: 5 ml Documented by: Ondansetron HCl (Ondansetron Inj 2 Mg/Ml 2 Ml Vial) 4 mg IV Q6H PRN PRN Reason: Nausea Stop: 06/22/20 00:45 Last Admin: 06/14/20 20:07 Dose: 4 mg Documented by: Oxycodone HCl (Oxycodone Hcl Ir 5 Mg Tab (Immediate Release)) 5 mg PO Q8H PRN PRN Reason: severe neuropathic pain Stop: 06/24/20 21:05 Pantoprazole Sodium (Pantoprazole 40 Mg Tab) 40 mg PO QAM [facility] Stop: 06/26/20 18:29 Last Admin: 06/18/20 08:03 Dose: 40 mg Documented by: Polyethylene Glycol (Polyethylene (Miralax) 17 Gm Pack) 17 gm PO Q6H PRN PRN Reason: Constipation Stop: 07/13/20 18:55 Last Admin: 06/14/20 13:30 Dose: 17 gm Documented by: Potassium Chloride (Potassium Chloride Crtab 20 Meq Tabcr) 20 meq PO BID [facility] Stop: 07/08/20 10:29 Last Admin: 06/18/20 08:01 Dose: 20 meq Documented by: Senna/Docusate Sodium (Docusate Sodium/Senna 50/8.6mg Tab) 1 tab PO QAM [facility] Stop: 07/14/20 08:59 Last Admin: 06/18/20 08:33 Dose: 1 tab Documented by: Thiamine HCl (Thiamine Hcl 100 Mg Tab) 100 mg PO BID MARY Stop: 06/28/20 08:59 Last Admin: 06/18/20 08:02 Dose: 100 mg Documented by: Vitamin B Complex/Folic Acid (Nephrocaps) 1 cap PO DAILY MARY Stop: 06/22/20 08:59 Last Admin: 06/18/20 08:02 Dose: 1 cap Documented by: Vitamin D (Cholecalciferol 1,000 Units 25 Mcg Tab) 1,000 units PO QAM MARY Stop: 07/12/20 18:29 Last Admin: 06/18/20 08:03 Dose: 1,000 units Documented by: Zinc Sulfate (Zinc Sulfate 220 Mg Capsule) 220 mg PO QAM MARY Stop: 07/12/20 18:29 Last Admin: 06/18/20 08:02 Dose: 220 mg Documented by: (1) CKD (chronic kidney disease), stage III Chronic kidney disease stage 3 subtype: stage 3b (GFR 30-44) Qualified Code(s): N18.32 - Chronic kidney disease, stage 3b
--- NOTE | 2020-06-18 13:44 | Pharmacy Report ---
Pharmacy Glycemic Short Note 2 - Date of Service June 18, 2020 - Glycemic Short BSG Results (Last 24 hours): 06/17/20 06/17/20 06/18/20 16:41 19:58 04:30 POC Glucose 139 H 198 H 183 H 06/18/20 06/18/20 07:37 11:25 POC Glucose 182 H 239 H Outpatient Anti-diabetic Regimen: * Lantus 15 units SC qAM, 8 units SC qPM * A1c = 8.3 % on 05/23/20 ASSESSMENT: 06/18: * Pt has received 65 units of SQ insulin since transitioning off of IV insulin infusion * 24 units of basal insulin with Lantus * 41 units of bolus insulin with NovoLog * BSGs adequate since patient is such a brittle diabetic with large BSG fluctuations * Resuming outpatient basal insulin dosing today. * Will tighten CHO coverage slightly since post-prandial BSGs still elevated * Prednisone DC today --> should yield an improvement in hyperglycemia without steroids on board. 06/17: * Received request from Hospitalist to transition patient off of insulin drip this AM * Patient continues on Prednisone 10mg daily * Over the last 24 hrs patient has been requiring infusion rates of 0.5- 0.8units/hr in addition to receiving once daily Lantus 10 units * Spoke with patient's RN, he is tolerating his diet * Will give supplemental Lantus this AM and give a scaled Lantus dose this PM with plans to transition him to his full outpt dose tomorrow * Novolog prandial doses will be based upon those producing desirable results w/ meals PLAN FOR INPATIENT GLYCEMIC CONTROL: * Basal insulin * Lantus 15 units AM + 8 units PM * Bolus insulin: tighten CHO ratio * Novolog SQ ACHS * Goal range: 110-140mg/dL * Correction Factor: 25mg/dL/unit * Nutritional / Prandial insulin per carb ratio of 1 unit per 5 grams CHO consumed Plan for discharge: TBD
[2020-06-18] MEDS ORDERED: INSULIN GLARGINE SOLOSTAR 100 UNITS/ML 3 ML PEN SC SCH (21:00)
[2020-06-18] MEDS: ATORVASTATIN 40 MG TAB PO SCH (21:06)
[2020-06-19] MEDS: ACETAMINOPHEN 500 MG TAB PO SCH ×3 (02:23→17:31)
[2020-06-19] MEDS: LEVOTHYROXINE SODIUM 137 MCG TABLET PO SCH (05:31)
[2020-06-19] MEDS: CARBOHYDRATES FOR HYPOGLYCEMIA PO PRN ×2 (07:30→07:46)
[2020-06-19] MEDS: INSULIN ASPART 100 UNITS/ML 3 ML PEN SC SCH ×4 (07:40→21:25)
--- NOTE | 2020-06-19 08:43 | Pharmacy Report ---
Pharmacy Glycemic Short Note 2 - Date of Service June 19, 2020 - Glycemic Short BSG Results (Last 24 hours): 06/18/20 06/18/20 06/18/20 11:25 16:24 20:28 POC Glucose 239 H 80 114 H 06/19/20 06/19/20 06/19/20 07:25 07:28 07:44 POC Glucose 62 L* 67 L* 62 L* 06/19/20 08:06 POC Glucose 96 Outpatient Anti-diabetic Regimen: * Lantus 15 units SC qAM, 8 units SC qPM * A1c = 8.3 % on 05/23/20 ASSESSMENT: 06/19: * Pt has received 61 units of SQ insulin over the past 24hrs * 23 units of basal insulin with Lantus * 38 units of bolus insulin with NovoLog * Pt with LOW BSG this AM. Hypoglycemia at 62-67-96 mg/dl. May have been cause by too much basal insulin; however, current basal insulin dosing is c/w outpatient dosing. Will reduce PM dose of Lantus this evening to prevent subsequent LOW tomorrow. * Will loosen CF since patient may have too much basal insulin on board * No changes needed to CHO coverage. * Prednisone DC yesterday; this will help stabilize BSGs 06/18: * Pt has received 65 units of SQ insulin since transitioning off of IV insulin infusion * 24 units of basal insulin with Lantus * 41 units of bolus insulin with NovoLog * BSGs adequate since patient is such a brittle diabetic with large BSG fluctuations * Resuming outpatient basal insulin dosing today. * Will tighten CHO coverage slightly since post-prandial BSGs still elevated * Prednisone DC today --> should yield an improvement in hyperglycemia without steroids on board. 06/17: * Received request from Hospitalist to transition patient off of insulin drip this AM * Patient continues on Prednisone 10mg daily * Over the last 24 hrs patient has been requiring infusion rates of 0.5- 0.8units/hr in addition to receiving once daily Lantus 10 units * Spoke with patient's RN, he is tolerating his diet * Will give supplemental Lantus this AM and give a scaled Lantus dose this PM with plans to transition him to his full outpt dose tomorrow * Novolog prandial doses will be based upon those producing desirable results w/ meals PLAN FOR INPATIENT GLYCEMIC CONTROL: * Basal insulin * Lantus 15 units AM + decrease PM dose to 6 units * Bolus insulin: loosen CF from 25 to 30 * Novolog SQ ACHS * Goal range: 110-140mg/dL * Correction Factor: 30 mg/dL/unit * Nutritional / Prandial insulin per carb ratio of 1 unit per 6 grams CHO consumed
[2020-06-19] MEDS: HEPARIN SOD 5,000 UNIT/0.5 ML VIAL SQ SCH ×3 (08:52→21:28)
[2020-06-19] MEDS: INSULIN GLARGINE SOLOSTAR 100 UNITS/ML 3 ML PEN SC SCH (08:52)
[2020-06-19] MEDS: FUROSEMIDE 40 MG in SYRINGE 0 ML IV SCH (08:53)
[2020-06-19] MEDS: PANTOprazole 40 MG TAB PO SCH (08:54)
[2020-06-19] MEDS: POTASSIUM CHLORIDE CRTAB 20 MEQ TABCR PO SCH ×2 (08:54→21:29)
[2020-06-19] MEDS: THIAMINE HCL 100 MG TAB PO SCH ×2 (08:54→21:30)
[2020-06-19] MEDS: GABAPENTIN 300 MG CAP PO SCH ×3 (08:54→21:28)
[2020-06-19] MEDS: CHOLECALCIFEROL 1,000 UNITS 25 MCG TAB PO SCH (08:55)
[2020-06-19] MEDS: MULTIVITAMIN TAB PO SCH (08:55)
[2020-06-19] MEDS: NEPHROCAPS PO SCH ×2 (08:55→08:57)
[2020-06-19] MEDS: FLUoxetine HCL 20 MG CAP PO SCH (08:55)
[2020-06-19] MEDS: ASPIRIN 81 MG ECTAB PO SCH (08:55)
[2020-06-19] MEDS: NYSTATIN SUSP 500,000 U/5 ML UDC PO SCH ×4 (08:56→21:28)
[2020-06-19] MEDS: FLUDROCORTISONE ACETATE 0.1 MG TAB PO SCH (08:56)
[2020-06-19] MEDS: ASCORBIC ACID 500 MG TAB PO SCH ×2 (08:59→21:31)
[2020-06-19] MEDS: ZINC SULFATE 220 MG CAPSULE PO SCH (08:59)
[2020-06-19] MEDS: DOCUSATE SODIUM/SENNA 50/8.6MG TAB PO SCH (08:59)
--- NOTE | 2020-06-19 15:21 | Hospitalist Progress Note ---
Date of Service June 19, 2020 Assessment & Plan (1) Acute respiratory failure with hypoxia: Acute respiratory distress syndrome with severe hypoxic respiratory failure on admission secondary to COVID-19 infection Received one unit of conv plasma on 05/27. Steroids x 3 weeks have been tapered off. Was not a candidate for remdesivir 2/2 renal failure. Continues on high flow oxygen supplementation occasionally transitioning to oxymask. Still requiring high flow oxygen with FiO2 of 40 Condition is worse today and requiring more than 10 L of oxygen to maintain saturation We will continue current management Cannot be discharged with high flow oxygen (2) Pneumonia due to COVID-19 virus: He completed a robust antibiotic course while admitted. (Doxycycline 100mg BID 5 dys, stopped for 2, resumed 05/30 for 7 full days, Ceftriaxone x 14 d ays, Cefepime for an additional 3 days after the ceftriaxone completed, and Flagyl for 8 days.) Cont care plan as outlined above with supportive care measures and steroids. Repeat COVID-19 is positive (3) Diabetes mellitus type I: Brittle diabetic with recently demonstrated difficult to manage blood sugar, especially with steroids. Pt is reliably eating as thrush is getting better. Converted him to insulin drip 06/12 with plans to keep him on the drip for more consistent blood sugars. Blood sugar has been stable and the insulin drip has been discontinued from today Management as per glycemic pharmacist (4) CKD (chronic kidney disease), stage III: Resolved to baseline renal function. Patient has Stage 3 CKD. Kidney function remains stable Lasix doses have been adjusted Remains reasonably stable Creatinine was 2.39 on of this month (5) Thrush, oral: From prolonged steroids. Has a few days left. Tolerating p.o. (6) Diabetic neuropathy: Persistent. Home dose gabapentin was 600mg PO QID decreased to 300mg PO BID because of renal insufficiency. Cont with gabapentin 300mg PO TID dosing for now with current renal function. Cont scheduled Tylenol Tylenol and PRN oxy for discomfort with minimization of narcotic with current respiratory status. (7) Hypothyroidism: chronic, stable, Continue levothyroxine per home regimen. (8) Depression: chronic, stable. Cont Prozac per home regimen. (9) Constipation: Resolved, BM today. (10) DVT prophylaxis: Heparin SQ DNR/DNI Dipso-cont hopspitalization/PCU status, still requiring high flow oxygen supplementation. Prognosis poor but continuing treatment and supportive care at this time. Admission and Anticipated Discharge Date Admission Date: May 22, 2020 Subjective 06/17/2020 The patient was seen and examined in telemetry/Covid unit He has been feeling a little better since the left team about 1 week ago He has been requiring high flow oxygen at around FiO2 of 40 Denies any significant symptoms except weakness and tiredness 06/18/2020 The patient was seen and examined in telemetry/Covid unit He remains stable with shortness of breath on minimal exertion Still requiring high flow oxygen at 8 L/min via oxygen mask 06/19/2020 The patient was seen and examined in telemetry/Covid unit He has been feeling worse today with increasing shortness of breath at rest and with minimal exertion He is requiring more than 10 L of oxygen via oxygen mask to maintain saturation Generally weak and lethargic Review of Systems Review of Systems: All systems reviewed and are unremarkable except as noted below Constitutional: + weakness Neurologic: + generalized weakness; no tremor(s), no headache(s) and no confusion Physical Exam Physical Exam: Lying in bed with moderate shortness of breath at rest Constitutional: well developed, well nourished, + acute distress (Due to shortness of breath) and + ill appearing Eyes: PERRL, conjunctivae normal, anicteric sclerae ENMT: external ear and nose normal, oropharynx normal Neck: trachea midline, no thyromegaly Respiratory: + respiratory distress, + labored breathing, + uses accessory muscles and + cough Auscultation: + diminished lung sounds, + crackles and + wheezes Cardiovascular: Rate/Rhythm: regular rate and regular rhythm Heart Sounds: no murmur Gastrointestinal (Abdomen): Inspection/Auscultation: normal bowel sounds; abdomen not distended Percussion/Palpation: abdomen soft; abdomen nontender Musculoskeletal: No acute arthritis in any joints Neurologic: Alert, awake and oriented x3, lysed weakness Psychiatric: A+Ox3, euthymic affect Lymphatic: no cervical or axillary lymphadenopathy Results & Data Results & Data ([facility]) Vital Signs (Past 12 Hours) Vital Signs Temp Pulse Pulse Pulse Resp BP BP 06/19/20 15:13 36.8 C 94 H 18 101/62 06/19/20 11:24 37.0 C 93 H 20 98/55 L 06/19/20 08:11 81 20 06/19/20 07:45 79 06/19/20 07:29 36.7 C 84 22 134/74 06/19/20 03:59 36.9 C 84 18 120/72 Pulse Ox 06/19/20 15:13 99 06/19/20 11:24 92 06/19/20 08:11 91 06/19/20 07:45 06/19/20 07:29 85 L 06/19/20 03:59 95 Medications Administered Current Inpatient Medications Acetaminophen (Acetaminophen 500 Mg Tab) 1,000 mg PO Q8H PRN PRN Reason: pain/fever Stop: 07/10/20 21:59 Last Admin: 06/17/20 08:51 Dose: 1,000 mg Documented by: Acetaminophen (Acetaminophen 500 Mg Tab) 1,000 mg PO Q8H MARY Stop: 07/15/20 17:29 Last Admin: 06/19/20 08:59 Dose: 1,000 mg Documented by: Albuterol (Albuterol Hfa 8 Gm Inhaler) 2 puffs INH Q4R PRN PRN Reason: shortness of breath Stop: 06/28/20 16:37 Last Admin: 06/17/20 19:24 Dose: 2 puffs Documented by: Ascorbic Acid (Ascorbic Acid 500 Mg Tab) 500 mg PO BID MARY Stop: 07/12/20 20:59 Last Admin: 06/19/20 08:59 Dose: 500 mg Documented by: Aspirin (Aspirin 81 Mg Ectab) 81 mg PO DAILY MARY Stop: 06/22/20 08:59 Last Admin: 06/19/20 08:55 Dose: 81 mg Documented by: Atorvastatin Calcium (Atorvastatin 40 Mg Tab) 80 mg PO HS MARY Stop: 06/22/20 20:59 Last Admin: 06/18/20 21:06 Dose: 80 mg Documented by: Dextrose (Dextrose 50% 50 Ml Syringe) 25 - 50 ml IV UD PRN; Protocol PRN Reason: Hypoglycemia Protocol Stop: 06/22/20 01:29 Last Admin: 06/15/20 16:17 Dose: 25 ml Documented by: Fludrocortisone Acetate (Fludrocortisone Acetate 0.1 Mg Tab) 0.3 mg PO QAM MARY Stop: 07/03/20 08:59 Last Admin: 06/19/20 08:56 Dose: 0.3 mg Documented by: Fluoxetine HCl (Fluoxetine Hcl 20 Mg Cap) 40 mg PO DAILY MARY Stop: 06/22/20 08:59 Last Admin: 06/19/20 08:55 Dose: 40 mg Documented by: Gabapentin (Gabapentin 300 Mg Cap) 300 mg PO TID MARY Stop: 07/11/20 08:59 Last Admin: 06/19/20 08:54 Dose: 300 mg Documented by: Glucagon (Glucagon For Inj 1 Mg Vial) 1 mg SQ UD PRN; Protocol PRN Reason: Hypoglycemia Protocol Stop: 06/22/20 01:29 Glucose (Glucose 40% Gel 15 Gm Tube) 15 - 30 gm PO UD PRN; Protocol PRN Reason: Hypoglycemia Protocol Stop: 06/22/20 01:29 Glucose (Glucose 10 Tabs/Tube) 4 - 8 tabs PO UD PRN; Protocol PRN Reason: Hypoglycemia Protocol Stop: 06/22/20 01:29 Last Admin: 05/29/20 21:15 Dose: 4 tabs Documented by: Heparin Sodium (Beef Lung) (Heparin 10 Unit/Ml 5 Ml Flush) 5 ml FLUSH PRN PRN PRN Reason: Flush Stop: 07/03/20 22:44 Heparin Sodium (Porcine) (Heparin Sod 5,000 Unit/0.5 Ml Vial) 5,000 units SQ Q12 MARY Stop: 07/03/20 08:59 Last Admin: 06/19/20 08:59 Dose: 5,000 units Documented by: Furosemide 20 mg/ Syringe 2 mls @ 4 mls/min IV [id number] MARY Stop: 07/05/20 08:59 Last Admin: 06/12/20 17:16 Dose: 4 mls/min Documented by: Furosemide 40 mg/ Syringe 4 mls @ 4 mls/min IV DAILY [facility] Stop: 07/15/20 17:29 Last Admin: 06/19/20 08:53 Dose: 4 mls/min Documented by: Insulin Aspart (Insulin Aspart 100 Units/Ml 3 Ml Pen) 0 units SC ACHS [facility]; Protocol Stop: 07/12/20 11:29 Last Admin: 06/19/20 13:20 Dose: Not Given Documented by: Insulin Glargine (Insulin Glargine Solostar 100 Units/Ml 3 Ml Pen) 15 units SC QAM [facility]; Protocol Stop: 07/18/20 08:59 Last Admin: 06/19/20 08:52 Dose: 15 units Documented by: Insulin Glargine (Insulin Glargine Solostar 100 Units/Ml 3 Ml Pen) 6 units SC [facility]; Protocol Stop: 07/19/20 20:59 Levothyroxine Sodium (Levothyroxine Sodium 137 Mcg Tablet) 137 mcg PO DAILYBB [facility] Stop: 06/22/20 06:29 Last Admin: 06/19/20 05:31 Dose: 137 mcg Documented by: Miscellaneous (Carbohydrates For Hypoglycemia ) 15 - 30 gm PO UD PRN PRN Reason: Hypoglycemia Treatment Stop: 06/22/20 01:29 Last Admin: 06/19/20 07:46 Dose: 15 gm Documented by: Miscellaneous Information (Pharmacy Glycemic Mgmt Consult) 1 ea N/A UD PRN PRN Reason: Consult Stop: 06/23/20 15:06 Multi-Ingredient Cream (Eucerin Cr 120 Gm Jar) 1 appln EXT BID PRN PRN Reason: Rash Stop: 06/28/20 11:00 Multivitamins (Multivitamin Tab) 1 tab PO [facility] Stop: 07/03/20 08:59 Last Admin: 06/19/20 08:55 Dose: 1 tab Documented by: Nystatin (Nystatin Susp 500,000 U/5 Ml [facility] [place]) 5 ml PO QID [facility] Stop: 06/20/20 21:59 Last Admin: 06/19/20 08:56 Dose: 5 ml Documented by: Ondansetron HCl (Ondansetron Inj 2 Mg/Ml 2 Ml Vial) 4 mg IV Q6H PRN PRN Reason: Nausea Stop: 06/22/20 00:45 Last Admin: 06/14/20 20:07 Dose: 4 mg Documented by: Oxycodone HCl (Oxycodone Hcl Ir 5 Mg Tab (Immediate Release)) 5 mg PO Q8H PRN PRN Reason: severe neuropathic pain Stop: 06/24/20 21:05 Pantoprazole Sodium (Pantoprazole 40 Mg Tab) [facility] [place] 06/26/20 18:29 Last Admin: 06/19/20 08:54 Dose: 40 mg Documented by: Polyethylene Glycol (Polyethylene (Miralax) 17 Gm Pack) 17 gm PO Q6H PRN PRN Reason: Constipation Stop: 07/13/20 18:55 Last Admin: 06/14/20 13:30 Dose: 17 gm Documented by: Potassium Chloride (Potassium Chloride Crtab 20 Meq Tabcr) 20 meq PO BID MARY Stop: 07/08/20 10:29 Last Admin: 06/19/20 08:54 Dose: 20 meq Documented by: Senna/Docusate Sodium (Docusate Sodium/Senna 50/8.6mg Tab) 1 tab PO QAM MARY Stop: 07/14/20 08:59 Last Admin: 06/19/20 08:59 Dose: 1 tab Documented by: Thiamine HCl (Thiamine Hcl 100 Mg Tab) 100 mg PO BID MARY Stop: 06/28/20 08:59 Last Admin: 06/19/20 08:54 Dose: 100 mg Documented by: Vitamin B Complex/Folic Acid (Nephrocaps) 1 cap PO DAILY MARY Stop: 06/22/20 08:59 Last Admin: 06/19/20 08:57 Dose: 1 cap Documented by: Vitamin D (Cholecalciferol 1,000 Units 25 Mcg Tab) 1,000 units PO QAM MARY Stop: 07/12/20 18:29 Last Admin: 06/19/20 08:55 Dose: 1,000 units Documented by: Zinc Sulfate (Zinc Sulfate 220 Mg Capsule) 220 mg PO QAM MARY Stop: 07/12/20 18:29 Last Admin: 06/19/20 08:59 Dose: 220 mg Documented by: (1) CKD (chronic kidney disease), stage III Chronic kidney disease stage 3 subtype: stage 3b (GFR 30-44) Qualified Code(s): N18.32 - Chronic kidney disease, stage 3b
[2020-06-19] MEDS: POLYETHYLENE (MIRALAX) 17 GM PACK PO PRN (15:59)
[2020-06-19] MEDS ORDERED: INSULIN GLARGINE SOLOSTAR 100 UNITS/ML 3 ML PEN SC SCH (21:00)
[2020-06-19] MEDS: ATORVASTATIN 40 MG TAB PO SCH (21:30)
[2020-06-20] MEDS: ACETAMINOPHEN 500 MG TAB PO SCH ×3 (01:48→17:51)
[2020-06-20] MEDS: LEVOTHYROXINE SODIUM 137 MCG TABLET PO SCH (04:51)
[2020-06-20] MEDS: ZINC SULFATE 220 MG CAPSULE PO SCH (08:18)
[2020-06-20] MEDS: PANTOprazole 40 MG TAB PO SCH (08:18)
[2020-06-20] MEDS: FLUDROCORTISONE ACETATE 0.1 MG TAB PO SCH (08:19)
[2020-06-20] MEDS: MULTIVITAMIN TAB PO SCH (08:19)
[2020-06-20] MEDS: GABAPENTIN 300 MG CAP PO SCH ×3 (08:20→22:24)
[2020-06-20] MEDS: POTASSIUM CHLORIDE CRTAB 20 MEQ TABCR PO SCH ×2 (08:20→22:25)
[2020-06-20] MEDS: FLUoxetine HCL 20 MG CAP PO SCH (08:20)
[2020-06-20] MEDS: NEPHROCAPS PO SCH (08:21)
[2020-06-20] MEDS: THIAMINE HCL 100 MG TAB PO SCH ×2 (08:22→22:00)
[2020-06-20] MEDS: HEPARIN SOD 5,000 UNIT/0.5 ML VIAL SQ SCH ×2 (08:23→22:18)
[2020-06-20] MEDS: ASCORBIC ACID 500 MG TAB PO SCH ×2 (08:23→22:15)
[2020-06-20] MEDS: ASPIRIN 81 MG ECTAB PO SCH (08:24)
[2020-06-20] MEDS: CHOLECALCIFEROL 1,000 UNITS 25 MCG TAB PO SCH (08:24)
[2020-06-20] MEDS: DOCUSATE SODIUM/SENNA 50/8.6MG TAB PO SCH (09:12)
[2020-06-20] MEDS: INSULIN GLARGINE SOLOSTAR 100 UNITS/ML 3 ML PEN SC SCH (09:12)
[2020-06-20] MEDS: INSULIN ASPART 100 UNITS/ML 3 ML PEN SC SCH ×4 (09:12→22:17)
[2020-06-20] MEDS: NYSTATIN SUSP 500,000 U/5 ML UDC PO SCH ×4 (10:07→22:33)
[2020-06-20] MEDS: FUROSEMIDE 40 MG in SYRINGE 0 ML IV SCH (10:07)
--- NOTE | 2020-06-20 14:32 | Pharmacy Report ---
Pharmacy Glycemic Short Note 2 - Date of Service June 20, 2020 - Glycemic Short BSG Results (Last 24 hours): 06/19/20 06/19/20 06/20/20 16:26 20:23 01:49 POC Glucose 86 181 H 75 06/20/20 06/20/20 08:10 12:09 POC Glucose 112 H 98 Outpatient Anti-diabetic Regimen: * Lantus 15 units SC qAM, 8 units SC qPM * A1c = 8.3 % on 05/23/20 ASSESSMENT: 06/20: * Patient received total of 24 units of insulin yesterday, of which 21 were basal insulin. Insulin needs much decreasing with steroids being dc'ed on 06/18. * BSGs on lower end of range today, but stable at 112-98 mg/dL - continue same basal insulin for now * May loosen CF/CR slightly today 06/19: * Pt has received 61 units of SQ insulin over the past 24hrs * 23 units of basal insulin with Lantus * 38 units of bolus insulin with NovoLog * Pt with LOW BSG this AM. Hypoglycemia at 62-67-96 mg/dl. May have been cause by too much basal insulin; however, current basal insulin dosing is c/w outpatient dosing. Will reduce PM dose of Lantus this evening to prevent subsequent LOW tomorrow. * Will loosen CF since patient may have too much basal insulin on board * No changes needed to CHO coverage. * Prednisone DC yesterday; this will help stabilize BSGs PLAN FOR INPATIENT GLYCEMIC CONTROL: * Basal insulin * Lantus 15 units AM + decrease PM dose to 6 units * Bolus insulin: * Novolog SQ ACHS * Goal range: 110-140mg/dL * Correction Factor: 40 mg/dL/unit * Nutritional / Prandial insulin per carb ratio of 1 unit per 6 grams CHO consumed
--- NOTE | 2020-06-20 17:39 | Hospitalist Progress Note ---
Date of Service June 20, 2020 Assessment & Plan (1) Acute respiratory failure with hypoxia: Acute respiratory distress syndrome with severe hypoxic respiratory failure on admission secondary to COVID-19 infection Received one unit of conv plasma on 05/27. Steroids x 3 weeks have been tapered off. Was not a candidate for remdesivir 2/2 renal failure. Continues on high flow oxygen supplementation occasionally transitioning to oxymask. Still requiring high flow oxygen with FiO2 of 40 Condition is worse today and requiring more than 10 L of oxygen to maintain saturation We will continue current management Cannot be discharged with high flow oxygen Condition has been deteriorating (2) Pneumonia due to COVID-19 virus: He completed a robust antibiotic course while admitted. (Doxycycline 100mg BID 5 dys, stopped for 2, resumed 05/30 for 7 full days, Ceftriaxone x 14 days, Cefepime for an additional 3 days after the ceftriaxone completed, and Flagyl for 8 days.) Cont care plan as outlined above with supportive care measures and steroids. Repeat COVID-19 is positive We will get another test on Monday (3) Diabetes mellitus type I: Brittle diabetic with recently demonstrated difficult to manage blood sugar, especially with steroids. Pt is reliably eating as thrush is getting better. Converted him to insulin drip 06/12 with plans to keep him on the drip for more consistent blood sugars. Blood sugar has been stable and the insulin drip has been discontinued from today Management as per glycemic pharmacist (4) CKD (chronic kidney disease), stage III: Resolved to baseline renal function. Patient has Stage 3 CKD. Kidney function remains stable Lasix doses have been adjusted Remains reasonably stable Creatinine was 2.39 on of this month Check PRP on Monday (5) Thrush, oral: From prolonged steroids. Has a few days left. Tolerating p.o. (6) Diabetic neuropathy: Persistent. Home dose gabapentin was 600mg PO QID decreased to 300mg PO BID because of renal insufficiency. Cont with gabapentin 300mg PO TID dosing for now with current renal function. Cont scheduled Tylenol Tylenol and PRN oxy for discomfort with minimization of narcotic with current respiratory status. (7) Hypothyroidism: chronic, stable, Continue levothyroxine per home regimen. (8) Depression: chronic, stable. Cont Prozac per home regimen. (9) Constipation: Resolved, BM today. (10) DVT prophylaxis: Heparin SQ DNR/DNI [facility], still requiring high flow oxygen supplementation. Prognosis poor but continuing treatment and supportive care at this time. Prognosis remains poor Admission and Anticipated Discharge Date Admission Date: May 22, 2020 Subjective 06/17/2020 The patient was seen and examined in telemetry/Covid unit He has been feeling a little better since the left team about 1 week ago He has been requiring high flow oxygen at around FiO2 of 40 Denies any significant symptoms except weakness and tiredness 06/18/2020 The patient was seen and examined in telemetry/Covid unit He remains stable with shortness of breath on minimal exertion Still requiring high flow oxygen at 8 L/min via oxygen mask 06/19/2020 The patient was seen and examined in telemetry/Covid unit He has been feeling worse today with increasing shortness of breath at rest and with minimal exertion He is requiring more than 10 L of oxygen via oxygen mask to maintain saturation Generally weak and lethargic 06/20/2020 The patient was seen and examined in medical telemetry unit He has been deteriorating and requiring more oxygen at rest and with minimal exertion Denies any significant pain Review of Systems Review of Systems: All systems reviewed and are unremarkable except as noted below Constitutional: + weakness Neurologic: + generalized weakness; no tremor(s), no headache(s) and no confusion Physical Exam Physical Exam: Lying in bed with moderate shortness of breath at rest Constitutional: well developed, well nourished, + acute distress (Due to shortness of breath) and + ill appearing Eyes: PERRL, conjunctivae normal, anicteric sclerae ENMT: external ear and nose normal, oropharynx normal Neck: trachea midline, no thyromegaly Respiratory: + respiratory distress, + labored breathing, + uses accessory muscles and + cough Auscultation: + diminished lung sounds, + crackles and + wheezes Cardiovascular: Rate/Rhythm: regular rate and regular rhythm Heart Sounds: no murmur Gastrointestinal (Abdomen): Inspection/Auscultation: normal bowel sounds; abdomen not distended Percussion/Palpation: abdomen soft; abdomen nontender Skin: No acute arthritis in any joint Neurologic: Extremely weak and lethargic Psychiatric: A+Ox3, euthymic affect Lymphatic: no cervical or axillary lymphadenopathy Results & Data Results & Data ([facility]) Vital Signs (Past 12 Hours) Vital Signs Temp Pulse Pulse Pulse Resp BP BP 11/28/20 17:19 36.8 C 93 H 18 129/71 06/20/20 16:00 97 H 06/20/20 11:26 37.4 C 92 H 24 151/85 H 06/20/20 08:24 36.8 C 91 H 30 H 112/69 06/20/20 07:35 89 06/20/20 05:46 36.5 C 84 18 111/65 Pulse Ox 06/20/20 17:19 94 06/20/20 16:00 06/20/20 11:26 91 06/20/20 08:24 91 06/20/20 07:35 06/20/20 05:46 92 Medications Administered Current Inpatient Medications Acetaminophen (Acetaminophen 500 Mg Tab) 1,000 mg PO Q8H PRN PRN Reason: pain/fever Stop: 07/10/20 21:59 Last Admin: 06/17/20 08:51 Dose: 1,000 mg Documented by: Acetaminophen (Acetaminophen 500 Mg Tab) 1,000 mg PO Q8H MARY Stop: 07/15/20 17:29 Last Admin: 06/20/20 10:07 Dose: 1,000 mg Documented by: Albuterol (Albuterol Hfa 8 Gm Inhaler) 2 puffs INH Q4R PRN PRN Reason: shortness of breath Stop: 06/28/20 16:37 Last Admin: 06/17/20 19:24 Dose: 2 puffs Documented by: Ascorbic Acid (Ascorbic Acid 500 Mg Tab) 500 mg PO BID MARY Stop: 07/12/20 20:59 Last Admin: 06/20/20 08:23 Dose: 500 mg Documented by: Aspirin (Aspirin 81 Mg Ectab) 81 mg PO DAILY MARY Stop: 06/22/20 08:59 Last Admin: 06/20/20 08:24 Dose: 81 mg Documented by: Atorvastatin Calcium (Atorvastatin 40 Mg Tab) 80 mg PO HS MARY Stop: 06/22/20 20:59 Last Admin: 06/19/20 21:30 Dose: 80 mg Documented by: Dextrose (Dextrose 50% 50 Ml Syringe) 25 - 50 ml IV UD PRN; Protocol PRN Reason: Hypoglycemia Protocol Stop: 06/22/20 01:29 Last Admin: 06/15/20 16:17 Dose: 25 ml Documented by: Fludrocortisone Acetate (Fludrocortisone Acetate 0.1 Mg Tab) 0.3 mg PO QAM [facility] Stop: 07/03/20 08:59 Last Admin: 06/20/20 08:19 Dose: 0.3 mg Documented by: Fluoxetine HCl (Fluoxetine Hcl 20 Mg Cap) 40 mg PO DAILY MARY Stop: 06/22/20 08:59 Last Admin: 06/20/20 08:20 Dose: 40 mg Documented by: Gabapentin (Gabapentin 300 Mg Cap) 300 mg PO TID MARY Stop: 07/11/20 08:59 Last Admin: 06/20/20 15:58 Dose: Not Given Documented by: Glucagon (Glucagon For Inj 1 Mg Vial) 1 mg SQ UD PRN; Protocol PRN Reason: Hypoglycemia Protocol Stop: 06/22/20 01:29 Glucose (Glucose 40% Gel 15 Gm Tube) 15 - 30 gm PO UD PRN; Protocol PRN Reason: Hypoglycemia Protocol Stop: 06/22/20 01:29 Glucose (Glucose 10 Tabs/Tube) 4 - 8 tabs PO UD PRN; Protocol PRN Reason: Hypoglycemia Protocol Stop: 06/22/20 01:29 Last Admin: 05/29/20 21:15 Dose: 4 tabs Documented by: Heparin Sodium (Beef Lung) (Heparin 10 Unit/Ml 5 Ml Flush) 5 ml FLUSH PRN PRN PRN Reason: Flush Stop: 07/03/20 22:44 Heparin Sodium (Porcine) (Heparin Sod 5,000 Unit/0.5 Ml Vial) 5,000 units SQ Q12 MARY Stop: 07/03/20 08:59 Last Admin: 06/20/20 08:23 Dose: 5,000 units Documented by: Furosemide 40 mg/ Syringe 4 mls @ 4 mls/min IV DAILY MARY Stop: 07/15/20 17:29 Last Admin: 06/20/20 10:07 Dose: 4 mls/min Documented by: Insulin Aspart (Insulin Aspart 100 Units/Ml 3 Ml Pen) 0 units SC A[facility]S [facility]; Protocol Stop: 07/12/20 11:29 Last Admin: 06/20/20 13:05 Dose: Not Given Documented by: Insulin Glargine (Insulin Glargine Solostar 100 Units/Ml 3 Ml Pen) [facility] [place] Protocol Stop: 07/18/20 08:59 Last Admin: 06/20/20 09:12 Dose: 15 units Documented by: Insulin Glargine (Insulin Glargine Solostar 100 Units/Ml 3 Ml Pen) 6 units SC [facility]; Protocol Stop: 07/20/20 20:59 Levothyroxine Sodium (Levothyroxine Sodium 137 Mcg Tablet) 137 mcg PO DAILYBB [facility] Stop: 06/22/20 06:29 Last Admin: 06/20/20 04:51 Dose: 137 mcg Documented by: Miscellaneous (Carbohydrates For Hypoglycemia ) 15 - 30 gm PO UD PRN PRN Reason: Hypoglycemia Treatment Stop: 06/22/20 01:29 Last Admin: 06/19/20 07:46 Dose: 15 gm Documented by: Miscellaneous Information (Pharmacy Glycemic Mgmt Consult) 1 ea N/A UD PRN PRN Reason: Consult Stop: 06/23/20 15:06 Multi-Ingredient Cream (Eucerin Cr 120 Gm Jar) 1 appln EXT BID PRN PRN Reason: Rash Stop: 06/28/20 11:00 Multivitamins (Multivitamin Tab) 1 tab PO [facility] Stop: 07/03/20 08:59 Last Admin: 06/20/20 08:19 Dose: 1 tab Documented by: Nystatin (Nystatin Susp 500,000 U/5 Ml [facility]) 5 ml PO QID [facility] Stop: 06/20/20 21:59 Last Admin: 06/20/20 15:57 Dose: Not Given Documented by: Ondansetron HCl (Ondansetron Inj 2 Mg/Ml 2 Ml Vial) 4 mg IV Q6H PRN PRN Reason: Nausea Stop: 06/22/20 00:45 Last Admin: 06/14/20 20:07 Dose: 4 mg Documented by: Oxycodone HCl (Oxycodone Hcl Ir 5 Mg Tab (Immediate Release)) 5 mg PO Q8H PRN PRN Reason: severe neuropathic pain Stop: 06/24/20 21:05 Pantoprazole Sodium (Pantoprazole 40 Mg Tab) 40 mg PO QAM [facility] Stop: 06/26/20 18:29 Last Admin: 06/20/20 08:18 Dose: 40 mg Documented by: Polyethylene Glycol (Polyethylene (Miralax) 17 Gm Pack) 17 gm PO Q6H PRN PRN Reason: Constipation Stop: 07/13/20 18:55 Last Admin: 06/19/20 15:59 Dose: 17 gm Documented by: Potassium Chloride (Potassium Chloride Crtab 20 Meq Tabcr) 20 meq PO BID MARY Stop: 07/08/20 10:29 Last Admin: 06/20/20 08:20 Dose: 20 meq Documented by: Senna/Docusate Sodium (Docusate Sodium/Senna 50/8.6mg Tab) 1 tab PO QAM MARY Stop: 07/14/20 08:59 Last Admin: 06/20/20 09:12 Dose: Not Given Documented by: Thiamine HCl (Thiamine Hcl 100 Mg Tab) 100 mg PO BID MARY Stop: 06/28/20 08:59 Last Admin: 06/20/20 08:22 Dose: 100 mg Documented by: Vitamin B Complex/Folic Acid (Nephrocaps) 1 cap PO DAILY MARY Stop: 06/22/20 08:59 Last Admin: 06/20/20 08:21 Dose: 1 cap Documented by: Vitamin D (Cholecalciferol 1,000 Units 25 Mcg Tab) 1,000 units PO QAM MARY Stop: 07/12/20 18:29 Last Admin: 06/20/20 08:24 Dose: 1,000 units Documented by: Zinc Sulfate (Zinc Sulfate 220 Mg Capsule) 220 mg PO QAM MARY Stop: 07/12/20 18:29 Last Admin: 06/20/20 08:18 Dose: 220 mg Documented by: (1) CKD (chronic kidney disease), stage III Chronic kidney disease stage 3 subtype: stage 3b (GFR 30-44) Qualified Code(s): N18.32 - Chronic kidney disease, stage 3b
[2020-06-20] MEDS ORDERED: INSULIN GLARGINE SOLOSTAR 100 UNITS/ML 3 ML PEN SC SCH ×2 (21:00)
[2020-06-20] MEDS: ATORVASTATIN 40 MG TAB PO SCH (22:21)
[2020-06-21] MEDS: ACETAMINOPHEN 500 MG TAB PO SCH ×3 (01:22→17:19)
[2020-06-21] MEDS: LEVOTHYROXINE SODIUM 137 MCG TABLET PO SCH (06:23)
[2020-06-21] MEDS: ZINC SULFATE 220 MG CAPSULE PO SCH (08:52)
[2020-06-21] MEDS: HEPARIN SOD 5,000 UNIT/0.5 ML VIAL SQ SCH ×2 (08:52→21:49)
[2020-06-21] MEDS: THIAMINE HCL 100 MG TAB PO SCH ×2 (08:52→22:02)
[2020-06-21] MEDS: FUROSEMIDE 40 MG in SYRINGE 0 ML IV SCH (08:52)
[2020-06-21] MEDS: DOCUSATE SODIUM/SENNA 50/8.6MG TAB PO SCH (08:52)
[2020-06-21] MEDS: ASCORBIC ACID 500 MG TAB PO SCH ×2 (08:52→22:03)
[2020-06-21] MEDS: GABAPENTIN 300 MG CAP PO SCH ×3 (08:52→22:03)
[2020-06-21] MEDS: POTASSIUM CHLORIDE CRTAB 20 MEQ TABCR PO SCH ×2 (08:52→21:59)
[2020-06-21] MEDS: ASPIRIN 81 MG ECTAB PO SCH (08:53)
[2020-06-21] MEDS: CHOLECALCIFEROL 1,000 UNITS 25 MCG TAB PO SCH (08:53)
[2020-06-21] MEDS: PANTOprazole 40 MG TAB PO SCH (08:53)
[2020-06-21] MEDS: MULTIVITAMIN TAB PO SCH (08:53)
[2020-06-21] MEDS: FLUDROCORTISONE ACETATE 0.1 MG TAB PO SCH (08:53)
[2020-06-21] MEDS: FLUoxetine HCL 20 MG CAP PO SCH (08:53)
[2020-06-21] MEDS: INSULIN ASPART 100 UNITS/ML 3 ML PEN SC SCH ×4 (09:21→22:04)
[2020-06-21] MEDS: INSULIN GLARGINE SOLOSTAR 100 UNITS/ML 3 ML PEN SC SCH (09:22)
--- NOTE | 2020-06-21 16:37 | Hospitalist Progress Note ---
Date of Service June 21, 2020 Assessment & Plan (1) Acute respiratory failure with hypoxia: Acute respiratory distress syndrome with severe hypoxic respiratory failure on admission secondary to COVID-19 infection Received one unit of conv plasma on 05/27. Steroids x 3 weeks have been tapered off. Was not a candidate for remdesivir 2/2 renal failure. Continues on high flow oxygen supplementation occasionally transitioning to oxymask. Still requiring high flow oxygen with FiO2 of 40 Condition is worse today and requiring more than 10 L of oxygen to maintain saturation We will continue current management Cannot be discharged with high flow oxygen Condition has been deteriorating and requiring 15 L of oxygen via oxygen mask to maintain saturation (2) Pneumonia due to COVID-19 virus: He completed a robust antibiotic course while admitted. (Doxycycline 100mg BID 5 dys, stopped for 2, resumed 05/30 for 7 full days, Ceftriaxone x 14 days, Cefepime for an additional 3 days after the ceftriaxone completed, and Flagyl for 8 days.) Cont care plan as outlined above with supportive care measures and steroids. Repeat COVID-19 is positive We will get another test on Monday (3) Diabetes mellitus type I: Brittle diabetic with recently demonstrated difficult to manage blood sugar, especially with steroids. Pt is reliably eating as thrush is getting better. Converted him to insulin drip 06/12 with plans to keep him on the drip for more consistent blood sugars. Blood sugar has been stable and the insulin drip has been discontinued from today Management as per glycemic pharmacist (4) CKD (chronic kidney disease), stage III: Resolved to baseline renal function. Patient has Stage 3 CKD. Kidney function remains stable Lasix doses have been adjusted Remains reasonably stable Creatinine was 2.39 on of this month Check PRP on Monday (5) Thrush, oral: From prolonged steroids. Has a few days left. Tolerating p.o. (6) Diabetic neuropathy: Persistent. Home dose gabapentin was 600mg PO QID decreased to 300mg PO BID because of renal insufficiency. Cont with gabapentin 300mg PO TID dosing for now with current renal function. Cont scheduled Tylenol Tylenol and PRN oxy for discomfort with minimization of narcotic with current respiratory status. (7) Hypothyroidism: chronic, stable, Continue levothyroxine per home regimen. (8) Depression: chronic, stable. Cont Prozac per home regimen. (9) Constipation: Resolved, BM today. (10) DVT prophylaxis: Heparin SQ DNR/DNI Dipso-cont [facility]/PCU status, still requiring high flow oxygen supplementation. Prognosis poor but continuing treatment and supportive care at this time. Prognosis remains poor Admission and Anticipated Discharge Date Admission Date: May 22, 2020 Subjective 06/17/2020 The patient was seen and examined in telemetry/Covid unit He has been feeling a little better since the left team about 1 week ago He has been requiring high flow oxygen at around FiO2 of 40 Denies any significant symptoms except weakness and tiredness 06/18/2020 The patient was seen and examined in telemetry/Covid unit He remains stable with shortness of breath on minimal exertion Still requiring high flow oxygen at 8 L/min via oxygen mask 06/19/2020 The patient was seen and examined in telemetry/Covid unit He has been feeling worse today with increasing shortness of breath at rest and with minimal exertion He is requiring more than 10 L of oxygen via oxygen mask to maintain saturation Generally weak and lethargic 06/20/2020 The patient was seen and examined in medical telemetry unit He has been deteriorating and requiring more oxygen at rest and with minimal exertion Denies any significant pain 06/21/2020 The patient was seen and examined in medical telemetry unit His condition has been deteriorating He is requiring 15 L of oxygen mask to maintain saturation Denies any other significant symptoms Review of Systems Review of Systems: All systems reviewed and are unremarkable except as noted below Constitutional: + weakness Neurologic: + generalized weakness; no tremor(s), no headache(s) and no confusion Physical Exam Physical Exam: Lying in bed with moderate shortness of breath at rest Constitutional: well developed, well nourished, + acute distress (Due to shortness of breath) and + ill appearing Eyes: PERRL, conjunctivae normal, anicteric sclerae ENMT: external ear and nose normal, oropharynx normal Neck: trachea midline, no thyromegaly Respiratory: + respiratory distress, + labored breathing, + uses accessory muscles and + cough Auscultation: + diminished lung sounds, + crackles and + wheezes Cardiovascular: Rate/Rhythm: regular rate and regular rhythm Heart Sounds: no murmur Gastrointestinal (Abdomen): Inspection/Auscultation: normal bowel sounds; abdomen not distended Percussion/Palpation: abdomen soft; abdomen nontender Musculoskeletal: No acute arthritis in any joint Psychiatric: A+Ox3, euthymic affect Lymphatic: no cervical or axillary lymphadenopathy Results & Data Results & Data ([facility]) Vital Signs (Past 12 Hours) Vital Signs Temp Pulse Pulse Pulse Resp BP Pulse Ox 06/21/20 15:16 87 06/21/20 11:54 36.9 C 81 19 111/68 93 06/21/20 10:38 98 06/21/20 08:28 36.4 C L 84 16 124/66 90 06/21/20 08:07 91 Medications Administered Current Inpatient Medications Acetaminophen (Acetaminophen 500 Mg Tab) 1,000 mg PO Q8H PRN PRN Reason: pain/fever Stop: 07/10/20 21:59 Last Admin: 06/17/20 08:51 Dose: 1,000 mg Documented by: Acetaminophen (Acetaminophen 500 Mg Tab) 1,000 mg PO Q8H MARY Stop: 07/15/20 17:29 Last Admin: 06/21/20 08:53 Dose: 1,000 mg Documented by: Albuterol (Albuterol Hfa 8 Gm Inhaler) 2 puffs INH Q4R PRN PRN Reason: shortness of breath Stop: 06/28/20 16:37 Last Admin: 06/17/20 19:24 Dose: 2 puffs Documented by: Ascorbic Acid (Ascorbic Acid 500 Mg Tab) 500 mg PO BID MARY Stop: 07/12/20 20:59 Last Admin: 06/21/20 08:52 Dose: 500 mg Documented by: Aspirin (Aspirin 81 Mg Ectab) 81 mg PO DAILY MARY Stop: 06/22/20 08:59 Last Admin: 06/21/20 08:53 Dose: 81 mg Documented by: Atorvastatin Calcium (Atorvastatin 40 Mg Tab) 80 mg PO HS MARY Stop: 06/22/20 20:59 Last Admin: 06/20/20 22:21 Dose: 80 mg Documented by: Dextrose (Dextrose 50% 50 Ml Syringe) 25 - 50 ml IV UD PRN; Protocol PRN Reason: Hypoglycemia Protocol Stop: 06/22/20 01:29 Last Admin: 06/15/20 16:17 Dose: 25 ml Documented by: Fludrocortisone Acetate (Fludrocortisone Acetate 0.1 Mg Tab) 0.3 mg PO QAM MARY Stop: 07/03/20 08:59 Last Admin: 11/29/20 08:53 Dose: 0.3 mg Documented by: Fluoxetine HCl (Fluoxetine Hcl 20 Mg Cap) 40 mg PO DAILY MARY Stop: 06/22/20 08:59 Last Admin: 06/21/20 08:53 Dose: 40 mg Documented by: Gabapentin (Gabapentin 300 Mg Cap) 300 mg PO TID MARY Stop: 07/11/20 08:59 Last Admin: 06/21/20 14:20 Dose: 300 mg Documented by: Glucagon (Glucagon For Inj 1 Mg Vial) 1 mg SQ UD PRN; Protocol PRN Reason: Hypoglycemia Protocol Stop: 06/22/20 01:29 Glucose (Glucose 40% Gel 15 Gm Tube) 15 - 30 gm PO UD PRN; Protocol PRN Reason: Hypoglycemia Protocol Stop: 06/22/20 01:29 Glucose (Glucose 10 Tabs/Tube) 4 - 8 tabs PO UD PRN; Protocol PRN Reason: Hypoglycemia Protocol Stop: 06/22/20 01:29 Last Admin: 05/29/20 21:15 Dose: 4 tabs Documented by: Heparin Sodium (Beef Lung) (Heparin 10 Unit/Ml 5 Ml Flush) 5 ml FLUSH PRN PRN PRN Reason: Flush Stop: 07/03/20 22:44 Heparin Sodium (Porcine) (Heparin Sod 5,000 Unit/0.5 Ml Vial) 5,000 units SQ Q12 MARY Stop: 07/03/20 08:59 Last Admin: 06/21/20 08:52 Dose: 5,000 units Documented by: Furosemide 40 mg/ Syringe 4 mls @ 4 mls/min IV DAILY MARY Stop: 07/15/20 17:29 Last Admin: 06/21/20 08:52 Dose: 4 mls/min Documented by: Lorazepam (Ativan) 0.25 mg in 0.5 mls @ 0.5 mls/min IV Q6H PRN PRN Reason: Anxiety/Agitation Stop: 07/21/20 08:58 Insulin Aspart (Insulin Aspart 100 Units/Ml 3 Ml Pen) 0 units SC ACHS [facility]; Protocol Stop: 07/12/20 11:29 Last Admin: 06/21/20 13:39 Dose: Not Given Documented by: Insulin Glargine (Insulin Glargine Solostar 100 Units/Ml 3 Ml Pen) 15 units SC QAM [facility]; Protocol Stop: 07/18/20 08:59 Last Admin: 06/21/20 09:22 Dose: 15 units Documented by: Insulin Glargine (Insulin Glargine Solostar 100 Units/Ml 3 Ml Pen) 4 units SC [facility]; Protocol Stop: 07/21/20 20:59 Levothyroxine Sodium (Levothyroxine Sodium 137 Mcg Tablet) 137 mcg PO DAILYBB [facility] Stop: 06/22/20 06:29 Last Admin: 06/21/20 06:23 Dose: 137 mcg Documented by: Miscellaneous (Carbohydrates For Hypoglycemia ) 15 - 30 gm PO UD PRN PRN Reason: Hypoglycemia Treatment Stop: 06/22/20 01:29 Last Admin: 06/19/20 07:46 Dose: 15 gm Documented by: Miscellaneous Information (Pharmacy Glycemic Mgmt Consult) 1 ea N/A UD PRN PRN Reason: Consult Stop: 06/23/20 15:06 Multi-Ingredient Cream (Eucerin Cr 120 Gm Jar) 1 appln EXT BID PRN PRN Reason: Rash Stop: 06/28/20 11:00 Multivitamins (Multivitamin Tab) [facility] [place] Stop: 07/03/20 08:59 Last Admin: 06/21/20 08:53 Dose: 1 tab Documented by: Ondansetron HCl (Ondansetron Inj 2 Mg/Ml 2 Ml Vial) 4 mg IV Q6H PRN PRN Reason: Nausea Stop: 06/22/20 00:45 Last Admin: 06/14/20 20:07 Dose: 4 mg Documented by: Oxycodone HCl (Oxycodone Hcl Ir 5 Mg Tab (Immediate Release)) 5 mg PO Q8H PRN PRN Reason: severe neuropathic pain Stop: 06/24/20 21:05 Pantoprazole Sodium (Pantoprazole 40 Mg Tab) 40 mg PO QAM [facility] Stop: 06/26/20 18:29 Last Admin: 06/21/20 08:53 Dose: 40 mg Documented by: Polyethylene Glycol (Polyethylene (Miralax) 17 Gm Pack) 17 gm PO Q6H PRN PRN Reason: Constipation Stop: 07/13/20 18:55 Last Admin: 06/19/20 15:59 Dose: 17 gm Documented by: Potassium Chloride (Potassium Chloride Crtab 20 Meq Tabcr) 20 meq PO BID [facility] Stop: 07/08/20 10:29 Last Admin: 06/21/20 08:52 Dose: 20 meq Documented by: Senna/Docusate Sodium (Docusate Sodium/Senna 50/8.6mg Tab) 1 tab PO QAM [facility] Stop: 07/14/20 08:59 Last Admin: 06/21/20 08:52 Dose: 1 tab Documented by: Thiamine HCl (Thiamine Hcl 100 Mg Tab) 100 mg PO BID MARY Stop: 06/28/20 08:59 Last Admin: 06/21/20 08:52 Dose: 100 mg Documented by: Vitamin B Complex/Folic Acid (Nephrocaps) 1 cap PO DAILY MARY Stop: 06/22/20 08:59 Last Admin: 06/20/20 08:21 Dose: 1 cap Documented by: Vitamin D (Cholecalciferol 1,000 Units 25 Mcg Tab) 1,000 units PO QAM [facility] Stop: 07/12/20 18:29 Last Admin: 06/21/20 08:53 Dose: 1,000 units Documented by: Zinc Sulfate (Zinc Sulfate 220 Mg Capsule) 220 mg PO QAM [facility] Stop: 07/12/20 18:29 Last Admin: 06/21/20 08:52 Dose: 220 mg Documented by: (1) CKD (chronic kidney disease), stage III Chronic kidney disease stage 3 subtype: stage 3b (GFR 30-44) Qualified Code(s): N18.32 - Chronic kidney disease, stage 3b
[2020-06-21] MEDS ORDERED: INSULIN GLARGINE SOLOSTAR 100 UNITS/ML 3 ML PEN SC SCH (21:00)
[2020-06-21] MEDS: ATORVASTATIN 40 MG TAB PO SCH (22:01)
[2020-06-22] MEDS: ACETAMINOPHEN 500 MG TAB PO SCH ×3 (02:14→17:36)
[2020-06-22 07:28] LABS: Hematocrit (blood only) 20.5 % (42-52); Hemoglobin 6.5 g/dL (14.0-18.0); Mean Corpuscular Hemoglobin 28.1 pg (25-34); Mean Corpuscular Hgb Conc 31.7 g/dL (32-36); Mean Corpuscular Volume 88.7 fL (80-100); Mean Platelet Volume 9.5 fL (7.4-10.4); Platelet Count 481 K/uL (130-400); RDW Coefficient of Variation 17.4 % (11.5-14.5); RDW Standard Deviation 56.8 fL (36.4-46.3); Red Blood Count 2.31 M/uL (4.7-6.1)
[2020-06-22] MEDS ORDERED: SODIUM CHLORIDE 0.9% 250 ML IV PRN (07:37)
[2020-06-22 07:45] LABS: Basophils # (auto) 0.04 K/uL (0-0.2); Basophils % (auto) 0.3 %; Eosinophils # (auto) 0.65 K/uL (0-0.5); Eosinophils % (auto) 5.3 %; Immature Granulocytes # (auto) 0.02 K/uL (0.00-0.02); Immature Granulocytes % (auto) 0.2 %; Lymphocytes # (auto) 1.57 K/uL (1.2-3.4); Lymphocytes % (auto) 12.9 %; Monocytes # (auto) 1.24 K/uL (0.11-0.59); Monocytes % (auto) 10.2 %; Neutrophils # (auto) 8.68 K/uL (1.4-6.5); Neutrophils % (auto) 71.1 %; RBC Morphology Unremarkable
[2020-06-22 07:55] LABS: Albumin Level 1.7 gm/dl (3.4-5.0); BUN Creatinine Ratio 25.1 (10-20); Calcium 8.4 mg/dl (8.5-10.1); Creatinine Clr Calc Pharmacy 39.7 ml/min; Est GFR (African American) 35.8; Est GFR (Non-African American) 30.9; Potassium 4.2 mmol/L (3.5-5.1)
[2020-06-22 07:59] LABS: Albumin Globulin Ratio 0.4 (0.9-2); Bilirubin,Total 0.3 mg/dl (0.2-1); Globulin 4.6 gm/dl (2.5-4.0); Total Protein 6.3 gm/dl (6.4-8.2)
[2020-06-22] MEDS ORDERED: FUROSEMIDE 40 MG in SYRINGE 0 ML IV ONE (08:30)
--- NOTE | 2020-06-22 08:56 | Pharmacy Report ---
Pharmacy Glycemic Short Note 2 - Date of Service June 22, 2020 - Glycemic Short BSG Results (Last 24 hours): 06/21/20 06/21/20 06/21/20 11:44 16:49 21:47 Glucose POC Glucose 106 H 175 H 176 H 06/22/20 06/22/20 06:58 07:42 Glucose 57 L POC Glucose 86 Outpatient Anti-diabetic Regimen: * Lantus 15 units SC qAM, 8 units SC qPM * A1c = 8.3 % on 05/23/20 ASSESSMENT: 06/22: * BSGs yesterday of 82, 106, 175, and 176 mg/dL * Patient received 23 units of insulin yesterday * 19 units of basal and 4 units of prandial/correctional * Fasting BSG of 57 mg/dL on BMP 06/20: * Patient received total of 24 units of insulin yesterday, of which 21 were basal insulin. Insulin needs much decreasing with steroids being dc'ed on 06/18. * BSGs on lower end of range today, but stable at 112-98 mg/dL - continue same basal insulin for now * May loosen CF/CR slightly today 06/19: * Pt has received 61 units of SQ insulin over the past 24hrs * 23 units of basal insulin with Lantus * 38 units of bolus insulin with NovoLog * Pt with LOW BSG this AM. Hypoglycemia at 62-67-96 mg/dl. May have been cause by too much basal insulin; however, current basal insulin dosing is c/w outpatient dosing. Will reduce PM dose of Lantus this evening to prevent subsequent LOW tomorrow. * Will loosen CF since patient may have too much basal insulin on board * No changes needed to CHO coverage. * Prednisone DC yesterday; this will help stabilize BSGs PLAN FOR INPATIENT GLYCEMIC CONTROL: * Basal insulin - hold HS Lantus tonight * Lantus 15 units AM * Bolus insulin: tighten CF * Novolog SQ ACHS * Goal range: 110-140mg/dL * Correction Factor: 30 mg/dL/unit * Nutritional / Prandial insulin per carb ratio of 1 unit per 6 grams CHO consumed
[2020-06-22] MEDS: FUROSEMIDE 40 MG in SYRINGE 0 ML IV SCH (09:33)
[2020-06-22] MEDS: MULTIVITAMIN TAB PO SCH (09:34)
[2020-06-22] MEDS: GABAPENTIN 300 MG CAP PO SCH ×3 (09:34→21:11)
[2020-06-22] MEDS: ASCORBIC ACID 500 MG TAB PO SCH ×2 (09:34→21:17)
[2020-06-22] MEDS: PANTOprazole 40 MG TAB PO SCH (09:35)
[2020-06-22] MEDS: FLUDROCORTISONE ACETATE 0.1 MG TAB PO SCH (09:35)
[2020-06-22] MEDS: POTASSIUM CHLORIDE CRTAB 20 MEQ TABCR PO SCH ×2 (09:36→21:16)
[2020-06-22] MEDS: ZINC SULFATE 220 MG CAPSULE PO SCH (09:36)
[2020-06-22] MEDS: HEPARIN SOD 5,000 UNIT/0.5 ML VIAL SQ SCH ×2 (09:37→21:11)
[2020-06-22] MEDS: THIAMINE HCL 100 MG TAB PO SCH ×2 (09:37→21:18)
[2020-06-22] MEDS: CHOLECALCIFEROL 1,000 UNITS 25 MCG TAB PO SCH (09:37)
[2020-06-22] MEDS: INSULIN GLARGINE SOLOSTAR 100 UNITS/ML 3 ML PEN SC SCH (09:38)
[2020-06-22] MEDS: INSULIN ASPART 100 UNITS/ML 3 ML PEN SC SCH ×4 (09:38→20:50)
[2020-06-22] MEDS: DOCUSATE SODIUM/SENNA 50/8.6MG TAB PO SCH (09:43)
[2020-06-22] MEDS: LORazepam 0.25 MG/0.5 ML VIAL IV PRN ×2 (09:56→21:44)
--- NOTE | 2020-06-22 14:14 | Hospitalist Progress Note ---
Date of Service June 22, 2020 Assessment & Plan (1) Acute respiratory failure with hypoxia: Acute respiratory distress syndrome with severe hypoxic respiratory failure on admission secondary to COVID-19 infection Received one unit of conv plasma on 05/27. Steroids x 3 weeks have been tapered off. Was not a candidate for remdesivir 2/2 renal failure. Continues on high flow oxygen supplementation occasionally transitioning to oxymask. Still requiring high flow oxygen with FiO2 of 40 Condition is worse today and requiring more than 10 L of oxygen to maintain saturation We will continue current management Cannot be discharged with high flow oxygen Condition has been deteriorating and requiring 15 L of oxygen via oxygen mask to maintain saturation No improvement of his condition Anemia Hemoglobin noted to be 6.5 likely secondary to acute illness No evidence of any acute blood loss Will give 2 units of PRBC Lasix in between transfusions (2) Pneumonia due to COVID-19 virus: He completed a robust antibiotic course while admitted. (Doxycycline 100mg BID 5 dys, stopped for 2, resumed 05/30 for 7 full days, Ceftriaxone x 14 days, Cefepime for an additional 3 days after the ceftriaxone completed, and Flagyl for 8 days.) Cont care plan as outlined above with supportive care measures and steroids. Repeat COVID-19 is positive We will get another test on Monday (3) Diabetes mellitus type I: Brittle diabetic with recently demonstrated difficult to manage blood sugar, especially with steroids. Pt is reliably eating as thrush is getting better. Converted him to insulin drip 06/12 with plans to keep him on the drip for more consistent blood sugars. Blood sugar has been stable and the insulin drip has been discontinued from today Management as per glycemic pharmacist (4) CKD (chronic kidney disease), stage III: Resolved to baseline renal function. Patient has Stage 3 CKD. Kidney function remains stable Lasix doses have been adjusted Remains reasonably stable Creatinine was 2.39 on of this month Check PRP on Monday-creatinine remains stable (5) Thrush, oral: From prolonged steroids. Has a few days left. Tolerating p.o. (6) Diabetic neuropathy: Persistent. Home dose gabapentin was 600mg PO QID decreased to 300mg PO BID because of renal insufficiency. Cont with gabapentin 300mg PO TID dosing for now with current renal function. Cont scheduled Tylenol Tylenol and PRN oxy for discomfort with minimization of narcotic with current respiratory status. (7) Hypothyroidism: chronic, stable, Continue levothyroxine per home regimen. (8) Depression: chronic, stable. Cont Prozac per home regimen. (9) Constipation: Resolved, BM today. (10) DVT prophylaxis: Heparin SQ DNR/DNI Dipso-cont hopspitalization/PCU status, still requiring high flow oxygen supplementation. Prognosis poor but continuing treatment and supportive care at this time. Prognosis remains poor Will ask for PT and OT evaluation for possible placement Admission and Anticipated Discharge Date Admission Date: May 22, 2020 Subjective 06/17/2020 The patient was seen and examined in telemetry/Covid unit He has been feeling a little better since the left team about 1 week ago He has been requiring high flow oxygen at around FiO2 of 40 Denies any significant symptoms except weakness and tiredness 06/18/2020 The patient was seen and examined in telemetry/Covid unit He remains stable with shortness of breath on minimal exertion Still requiring high flow oxygen at 8 L/min via oxygen mask 06/19/2020 The patient was seen and examined in telemetry/Covid unit He has been feeling worse today with increasing shortness of breath at rest and with minimal exertion He is requiring more than 10 L of oxygen via oxygen mask to maintain saturation Generally weak and lethargic 06/20/2020 The patient was seen and examined in medical telemetry unit He has been deteriorating and requiring more oxygen at rest and with minimal exertion Denies any significant pain 06/21/2020 The patient was seen and examined in medical telemetry unit His condition has been deteriorating He is requiring 15 L of oxygen mask to maintain saturation Denies any other significant symptoms 06/22/2020 The patient was seen and examined in medical telemetry unit He remained stable but critical and he still requires high flow oxygen to maintain saturation Remains extremely weak and lethargic Review of Systems Review of Systems: All systems reviewed and are unremarkable except as noted below Constitutional: + weakness Neurologic: + generalized weakness; no tremor(s), no headache(s) and no confusion Physical Exam Physical Exam: Lying in bed with moderate shortness of breath at rest Constitutional: well developed, well nourished, + acute distress (Due to shortness of breath) and + ill appearing Eyes: PERRL, conjunctivae normal, anicteric sclerae ENMT: external ear and nose normal, oropharynx normal Neck: trachea midline, no thyromegaly Respiratory: + respiratory distress, + labored breathing, + uses accessory muscles and + cough Auscultation: + diminished lung sounds, + crackles and + wheezes Cardiovascular: Rate/Rhythm: regular rate and regular rhythm Heart Sounds: no murmur Gastrointestinal (Abdomen): Inspection/Auscultation: normal bowel sounds; abdomen not distended Percussion/Palpation: abdomen soft; abdomen nontender Musculoskeletal: No acute arthritis in any joint Psychiatric: A+Ox3, euthymic affect Lymphatic: no cervical or axillary lymphadenopathy Results & Data Results & Data ([facility]) Vital Signs (Past 12 Hours) Vital Signs Temp Pulse Pulse Pulse Resp BP BP 06/22/20 13:50 36.4 C L 80 18 137/79 06/22/20 11:45 36.7 C 84 20 124/77 06/22/20 10:36 36.2 C L 84 20 127/77 06/22/20 10:27 36.7 C 84 20 124/77 06/22/20 10:12 36.6 C 80 18 134/75 06/22/20 08:01 36.4 C L 84 124/66 06/22/20 08:00 36.8 C 75 20 125/68 06/22/20 07:34 78 06/22/20 04:46 36.5 C 81 20 132/74 06/22/20 02:43 84 Pulse Ox 06/22/20 13:50 06/22/20 11:45 94 06/22/20 10:36 94 06/22/20 10:27 91 06/22/20 10:12 06/22/20 08:01 90 06/22/20 08:00 97 06/22/20 07:34 06/22/20 04:46 96 06/22/20 02:43 Laboratory Results Short CBC 06/22/20 Range/Units 06:58 WBC 12.20 H (4.8-10.8) K/uL Hgb 6.5 L* (14.0-18.0) g/dL Hct 20.5 L* (42-52) % Plt Count 481 H (130-400) K/uL BMP 06/22/20 06:58 Sodium 140 Potassium 4.2 Chloride 106 Carbon Dioxide 29 BUN 57 H Creatinine 2.28 H Glucose 57 L Calcium 8.4 L Liver Function 06/22/20 Range/Units 06:58 Total Bilirubin 0.3 (0.2-1) mg/dl AST 41 H (15-37) U/L ALT 53 (12-78) U/L Alkaline Phosphatase 149 H (45-117) U/L Albumin 1.7 L (3.4-5.0) gm/dl Medications Administered Current Inpatient Medications Acetaminophen (Acetaminophen 500 Mg Tab) 1,000 mg PO Q8H PRN PRN Reason: pain/fever Stop: 07/10/20 21:59 Last Admin: 06/17/20 08:51 Dose: 1,000 mg Documented by: Acetaminophen (Acetaminophen 500 Mg Tab) 1,000 mg PO Q8H MARY Stop: 07/15/20 17:29 Last Admin: 06/22/20 09:43 Dose: 1,000 mg Documented by: Albuterol (Albuterol Hfa 8 Gm Inhaler) 2 puffs INH Q4R PRN PRN Reason: shortness of breath Stop: 06/28/20 16:37 Last Admin: 06/17/20 19:24 Dose: 2 puffs Documented by: Ascorbic Acid (Ascorbic Acid 500 Mg Tab) 500 mg PO BID MARY Stop: 07/12/20 20:59 Last Admin: 06/22/20 09:34 Dose: 500 mg Documented by: Atorvastatin Calcium (Atorvastatin 40 Mg Tab) 80 mg PO HS MARY Stop: 06/22/20 20:59 Last Admin: 06/21/20 22:01 Dose: 80 mg Documented by: Fludrocortisone Acetate (Fludrocortisone Acetate 0.1 Mg Tab) 0.3 mg PO QAM MARY Stop: 07/03/20 08:59 Last Admin: 06/22/20 09:35 Dose: 0.3 mg Documented by: Gabapentin (Gabapentin 300 Mg Cap) 300 mg PO TID MARY Stop: 07/11/20 08:59 Last Admin: 06/22/20 14:11 Dose: 300 mg Documented by: Heparin Sodium (Beef Lung) (Heparin 10 Unit/Ml 5 Ml Flush) 5 ml FLUSH PRN PRN PRN Reason: Flush Stop: 07/03/20 22:44 Heparin Sodium (Porcine) (Heparin Sod 5,000 Unit/0.5 Ml Vial) 5,000 units SQ Q12 MARY Stop: 07/03/20 08:59 Last Admin: 06/22/20 09:37 Dose: 5,000 units Documented by: Furosemide 40 mg/ Syringe 4 mls @ 4 mls/min IV DAILY [facility] Stop: 07/15/20 17:29 Last Admin: 06/22/20 09:33 Dose: 4 mls/min Documented by: Lorazepam (Ativan) 0.25 mg in 0.5 mls @ 0.5 mls/min IV Q6H PRN PRN Reason: Anxiety/Agitation Stop: 07/21/20 08:58 Last Admin: 06/22/20 09:56 Dose: 0.5 mls/min Documented by: Sodium Chloride (Nss) 250 mls @ 15 mls/hr IV .[id number] PRN PRN Reason: For Transfusion Stop: 06/22/20 17:37 Insulin Aspart (Insulin Aspart 100 Units/Ml 3 Ml Pen) 0 units SC [facility]; Protocol Stop: 07/12/20 11:29 Last Admin: 06/22/20 12:42 Dose: 2 units Documented by: Insulin Glargine (Insulin Glargine Solostar 100 Units/Ml 3 Ml Pen) 15 units SC [facility]; Protocol Stop: 07/18/20 08:59 Last Admin: 06/22/20 09:38 Dose: 15 units Documented by: Miscellaneous Information (Pharmacy Glycemic Mgmt Consult) 1 ea N/A UD PRN PRN Reason: Consult Stop: 06/23/20 15:06 Multi-Ingredient Cream (Eucerin Cr 120 Gm Jar) 1 appln EXT BID PRN PRN Reason: Rash Stop: 06/28/20 11:00 Multivitamins (Multivitamin Tab) 1 tab PO [facility] Stop: 07/03/20 08:59 Last Admin: 06/22/20 09:34 Dose: 1 tab Documented by: Oxycodone HCl (Oxycodone Hcl Ir 5 Mg Tab (Immediate Release)) 5 mg PO Q8H PRN PRN Reason: severe neuropathic pain Stop: 06/24/20 21:05 Pantoprazole Sodium (Pantoprazole 40 Mg Tab) [facility] [place]: 06/26/20 18:29 Last Admin: 06/22/20 09:35 Dose: 40 mg Documented by: Polyethylene Glycol (Polyethylene (Miralax) 17 Gm Pack) 17 gm PO Q6H PRN PRN Reason: Constipation Stop: 07/13/20 18:55 Last Admin: 06/19/20 15:59 Dose: 17 gm Documented by: Potassium Chloride (Potassium Chloride Crtab 20 Meq Tabcr) 20 meq PO BID [facility] Stop: 07/08/20 10:29 Last Admin: 06/22/20 09:36 Dose: 20 meq Documented by: Senna/Docusate Sodium (Docusate Sodium/Senna 50/8.6mg Tab) 1 tab [facility] [place]: 07/14/20 08:59 Last Admin: 06/22/20 09:43 Dose: 1 tab Documented by: Thiamine HCl (Thiamine Hcl 100 Mg Tab) 100 mg PO BID [facility] Stop: 06/28/20 08:59 Last Admin: 06/22/20 09:37 Dose: 100 mg Documented by: Vitamin D (Cholecalciferol 1,000 Units 25 Mcg Tab) 1,000 units PO QAM [facility] Stop: 07/12/20 18:29 Last Admin: 06/22/20 09:37 Dose: 1,000 units Documented by: Zinc Sulfate (Zinc Sulfate 220 Mg Capsule) 220 mg PO [facility] Stop: 07/12/20 18:29 Last Admin: 06/22/20 09:36 Dose: 220 mg Documented by: (1) CKD (chronic kidney disease), stage III Chronic kidney disease stage 3 subtype: stage 3b (GFR 30-44) Qualified Code(s): N18.32 - Chronic kidney disease, stage 3b
--- NOTE | 2020-06-22 19:39 | Nephrology Progress Note ---
Date of Service June 22, 2020 Assessment & Plan (1) CKD (chronic kidney disease), stage III: Per hospitalist on paperwork from admission, baseline creatinine 2.3 in 12/2019. No OP/prior to admission creatinine documented. Pt presented with creatinine 2.5 on 05/22; then since 05/27 in mid to low 3s. peaked at 4.5 on 06/02; creat under 3 since 06/10; today low 2's,at baseline. uacm w/ 3+ dipstick protein, 1+ blood, consistent with even 2018 sediment; no infection or other inflammation. 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 s/p course of dexamethasone and on prednisone taper; also on OP fludro dose currently -ensure cont fludrocortisone at d/c; lisinopril on hold for now and reasonable to cont same BP w/ stable control since he is essentially bedbound; on lasix alone 40 mg IV dailyand will continue (3) COVID-19: on high flow 02 for a few weeks now and still dependent; w/ near intubati on / code purple for hypoxia 06/01 AM; ICU status downgraded 06/03; recurrent hypoxemic episodes corrected with self-proning >> he has been on 6L or more 02 continuously since 05/28 -per primary and pulm (4) Anemia: for pRBC today and to get extra lasix w/ transfusion Present on Admission?: Yes Admission and Anticipated Discharge Date Admission Date: May 22, 2020 Subjective c/o pleuritic chest pain and minimal appetite when I saw him this am at 0750; on 0xymask and can't eat w/o desat; for 2 units pRBC today d/t low hgb Review of Systems Review of Systems: All systems reviewed & are unremarkable except as noted in HPI & below Physical Exam Constitutional: well developed, well nourished and + thin; no acute distress Eyes: EOM intact bilaterally ENMT: Ears: no external ear abnormality Nose: no external nose abnormality Mouth: + dry oral mucous membranes Neck: no nuchal rigidity Respiratory: normal respiratory effort (on high flow 02; desats not ) Auscultation: + crackles (diffuse crackle throught posterior case) Cardiovascular: RRR, no murmur, no edema Rate/Rhythm: regular rate and regular rhythm Gastrointestinal (Abdomen): Inspection/Auscultation: abdomen normal to inspection and normal bowel sounds Percussion/Palpation: abdomen soft; abdomen nontender Musculoskeletal: Extremities: strength 5/5 throughout Skin: no rashes, warm and dry Psychiatric: Orientation: alert and oriented x 3 Eye Contact: good eye contact Affect: + anxious affect and + flat affect Genitourinary: mukherjee w/ ample light colored clear yellow urine Results & Data ([facility]) Vital Signs (Past 12 Hours) Vital Signs Temp Pulse Pulse Pulse Resp BP BP 06/22/20 15:54 36.7 C 88 18 151/85 H 06/22/20 15:50 74 06/22/20 14:54 36.5 C 81 18 143/85 H 06/22/20 14:23 36.4 C L 75 125/75 06/22/20 14:09 36.6 C 79 20 120/74 06/22/20 13:50 36.4 C L 80 18 137/79 06/22/20 11:45 36.7 C 84 20 124/77 06/22/20 10:36 36.2 C L 84 20 127/77 06/22/20 10:27 36.7 C 84 20 124/77 06/22/20 10:12 36.6 C 80 18 134/75 06/22/20 08:01 36.4 C L 84 124/66 06/22/20 08:00 36.8 C 75 20 125/68 06/22/20 07:34 78 Pulse Ox 06/22/20 15:54 91 06/22/20 15:50 06/22/20 14:54 98 06/22/20 14:23 94 06/22/20 14:09 91 06/22/20 13:50 06/22/20 11:45 94 06/22/20 10:36 94 06/22/20 10:27 91 06/22/20 10:12 06/22/20 08:01 90 06/22/20 08:00 97 06/22/20 07:34 Laboratory Results 06/22/20 06:58 06/22/20 06:58 (1) CKD (chronic kidney disease), stage III Chronic kidney disease stage 3 subtype: stage 3b (GFR 30-44) Qualified Code(s): N18.32 - Chronic kidney disease, stage 3b (2) Anemia Anemia type: iron deficiency Iron deficiency anemia type: unspecified iron deficiency Qualified Code(s): D50.9 - Iron deficiency anemia, unspecified
[2020-06-22] MEDS: CARBOHYDRATES FOR HYPOGLYCEMIA PO PRN (20:45)
[2020-06-22] MEDS ORDERED: GLUCAGON FOR INJ 1 MG VIAL IM PRN (21:00)
[2020-06-22] MEDS ORDERED: GLUCOSE 40% GEL 15 GM TUBE PO PRN (21:00)
[2020-06-22] MEDS ORDERED: DEXTROSE 50% 50 ML SYRINGE IV PRN (21:00)
[2020-06-22] MEDS ORDERED: GLUCOSE 10 TABS/TUBE PO PRN (21:00)
[2020-06-23] MEDS: ACETAMINOPHEN 500 MG TAB PO SCH ×3 (02:25→17:28)
[2020-06-23 07:50] LABS: Basophils # (auto) 0.06 K/uL (0-0.2); Basophils % (auto) 0.6 %; Eosinophils # (auto) 0.38 K/uL (0-0.5); Eosinophils % (auto) 3.7 %; Hematocrit (blood only) 28.1 % (42-52); Hemoglobin 9.2 g/dL (14.0-18.0); Immature Granulocytes # (auto) 0.03 K/uL (0.00-0.02); Immature Granulocytes % (auto) 0.3 %; Lymphocytes # (auto) 1.09 K/uL (1.2-3.4); Lymphocytes % (auto) 10.5 %; Mean Corpuscular Hemoglobin 28.4 pg (25-34); Mean Corpuscular Hgb Conc 32.7 g/dL (32-36); Mean Corpuscular Volume 86.7 fL (80-100); Mean Platelet Volume 9.8 fL (7.4-10.4); Monocytes # (auto) 1.05 K/uL (0.11-0.59); Monocytes % (auto) 10.1 %; Neutrophils # (auto) 7.77 K/uL (1.4-6.5); Neutrophils % (auto) 74.8 %; Platelet Count 482 K/uL (130-400); RDW Coefficient of Variation 16.7 % (11.5-14.5); RDW Standard Deviation 52.9 fL (36.4-46.3); Red Blood Count 3.24 M/uL (4.7-6.1); White Blood Count 10.38 K/uL (4.8-10.8)
[2020-06-23 08:26] LABS: BUN Creatinine Ratio 22.7 (10-20); Calcium 8.6 mg/dl (8.5-10.1); Creatinine Clr Calc Pharmacy 40.6 ml/min; Est GFR (African American) 36.8; Est GFR (Non-African American) 31.8; Potassium 4.3 mmol/L (3.5-5.1)
[2020-06-23] MEDS: FUROSEMIDE 40 MG in SYRINGE 0 ML IV SCH (08:56)
[2020-06-23] MEDS: MULTIVITAMIN TAB PO SCH (08:56)
[2020-06-23] MEDS: PANTOprazole 40 MG TAB PO SCH (08:56)
[2020-06-23] MEDS: DOCUSATE SODIUM/SENNA 50/8.6MG TAB PO SCH (08:56)
[2020-06-23] MEDS: CHOLECALCIFEROL 1,000 UNITS 25 MCG TAB PO SCH (08:56)
[2020-06-23] MEDS: ZINC SULFATE 220 MG CAPSULE PO SCH (08:57)
[2020-06-23] MEDS: HEPARIN SOD 5,000 UNIT/0.5 ML VIAL SQ SCH ×2 (08:57→21:32)
[2020-06-23] MEDS: POTASSIUM CHLORIDE CRTAB 20 MEQ TABCR PO SCH ×2 (08:57→21:31)
[2020-06-23] MEDS: FLUDROCORTISONE ACETATE 0.1 MG TAB PO SCH (08:57)
[2020-06-23] MEDS: GABAPENTIN 300 MG CAP PO SCH ×3 (08:57→21:31)
[2020-06-23] MEDS: ASCORBIC ACID 500 MG TAB PO SCH ×2 (08:58→21:31)
[2020-06-23] MEDS: THIAMINE HCL 100 MG TAB PO SCH ×2 (08:58→21:31)
[2020-06-23] MEDS: INSULIN GLARGINE SOLOSTAR 100 UNITS/ML 3 ML PEN SC SCH (09:10)
[2020-06-23] MEDS: INSULIN ASPART 100 UNITS/ML 3 ML PEN SC SCH ×4 (09:10→22:15)
--- NOTE | 2020-06-23 14:26 | CT Scan Report ---
CT SCAN OF THE CHEST WITHOUT IV CONTRAST CLINICAL HISTORY: Worsening pneumonia. Covid. COMPARISON STUDY: Chest CT dated 12/09/2016. Chest x-ray dated 06/17/2020. TECHNIQUE: CT scan of the thorax was performed from the thoracic inlet to the upper abdomen. Images are reviewed in the axial, sagittal, and coronal planes. IV contrast was not administered for this ex amination as per the referring clinician. A dose lowering technique was utilized adhering to the kelin yanez of ELI. The examination is degraded by motion artifact. CT DOSE: 614.05 mGycm FINDINGS: Thyroid: Atrophic and heterogeneous. Thoracic aorta: The thoracic aorta is normal in caliber and demonstrates standard 3-vessel arch anato my. Heart: The heart is enlarged noting a small pericardial effusion. The coronary arteries are densely c alcified. The pulmonary trunk is dilated measuring 4.2 cm. This suggests pulmonary artery hypertensio n. Lungs and pleural spaces: Evaluation of the lung parenchyma is degraded by motion artifact. Emphysema tous change is noted. There are small pleural effusions. There is dense multifocal airspace consolida tion, most confluent throughout the left upper lobe and in the lower lobes. There are foci of develop ing cavitation identified in the left upper lobe consolidation, best seen on image #68. Mediastinum: There are numerous enlarged mediastinal lymph nodes. Prevascular node on image #119 kailee ures 2.1 x 1.3 cm. A pretracheal node on image #112 measures 2.1 x 1.1 cm. Zakiya: Not well assessed without IV contrast. Axillae: There is no axillary lymphadenopathy. Upper abdomen: Fluid fills the distal to the esophagus to the level of the genaro. A small hiatal her tj is observed. Partially visualized upper abdominal viscera is otherwise grossly unremarkable. Skeletal structures: The skeletal structures are osteopenic. No lytic or blastic bony lesions are see n. IMPRESSION: 1. Cardiomegaly and emphysema with evidence of pulmonary artery hypertension. 2. Extensive multifocal airspace consolidation as above. 3. There is evidence of necrotizing/cavitary pneumonia in the left upper lobe. 4. Small pleural effusions. 5. Fluid fills the esophagus to the level of the genaro. Note that this may place the patient at risk for aspiration. 5. Mediastinal lymphadenopathy, likely reactive. ACT 112: Negative or not required by law. Electronically signed by: Kendall Pardo M.D. 06/23/2020 2:24 PM
--- NOTE | 2020-06-23 17:01 | Hospitalist Progress Note ---
Date of Service June 23, 2020 Assessment & Plan (1) Acute respiratory failure with hypoxia: Acute respiratory distress syndrome with severe hypoxic respiratory failure on admission secondary to COVID-19 infection Received one unit of conv plasma on 05/27. Steroids x 3 weeks have been tapered off. Was not a candidate for remdesivir 2/2 renal failure. Continues on high flow oxygen supplementation occasionally transitioning to oxymask. Still requiring high flow oxygen with FiO2 of 40 Condition is worse today and requiring more than 10 L of oxygen to maintain saturation We will continue current management Cannot be discharged with high flow oxygen Condition has been deteriorating and requiring 15 L of oxygen via oxygen mask to maintain saturation No improvement of his condition CT of the chest without contrast showed:1. Cardiomegaly and emphysema with evidence of pulmonary artery hypertension. 2. Extensive multifocal airspace consolidation as above. 3. There is evidence of necrotizing/cavitary pneumonia in the left upper lobe. 4. Small pleural effusions. 5. Fluid fills the esophagus to the level of the genaro. Note that this may place the patient at risk for aspiration. 6. Mediastinal lymphadenopathy, likely reactive. Plan to get pulmonary opinion for his ongoing shortness of breath. Anemia Hemoglobin noted to be 6.5 likely secondary to acute illness No evidence of any acute blood loss Will give 2 units of PRBC Lasix in between transfusions Hemoglobin improved to 9.2 as of 06/23/2020 (2) Pneumonia due to COVID-19 virus: He completed a robust antibiotic course while admitted. (Doxycycline 100mg BID 5 dys, stopped for 2, resumed 05/30 for 7 full days, Ceftriaxone x 14 days, Cefepime for an additional 3 days after the ceftriaxone completed, and Flagyl for 8 days.) Cont care plan as outlined above with supportive care measures and steroids. Repeat COVID-19 is positive No more Covid test is required Patient is still remains in isolation but not in negative pressure room Remains critical but stable (3) Diabetes mellitus type I: Brittle diabetic with recently demonstrated difficult to manage blood sugar, especially with steroids. Pt is reliably eating as thrush is getting better. Converted him to insulin drip 06/12 with plans to keep him on the drip for more consistent blood sugars. Blood sugar has been stable and the insulin drip has been discontinued from today Management as per glycemic pharmacist (4) CKD (chronic kidney disease), stage III: Resolved to baseline renal function. Patient has Stage 3 CKD. Kidney function remains stable Lasix doses have been adjusted Remains reasonably stable Creatinine was 2.39 on of this month Check PRP on Monday-creatinine remains stable (5) Thrush, oral: From prolonged steroids. Has a few days left. Tolerating p.o. (6) Diabetic neuropathy: Persistent. Home dose gabapentin was 600mg PO QID decreased to 300mg PO BID because of renal insufficiency. Cont with gabapentin 300mg PO TID dosing for now with current renal function. Cont scheduled Tylenol Tylenol and PRN oxy for discomfort with minimization of narcotic with current respiratory status. (7) Hypothyroidism: chronic, stable, Continue levothyroxine per home regimen. (8) Depression: chronic, stable. Cont Prozac per home regimen. (9) Constipation: Resolved, BM today. (10) DVT prophylaxis: Heparin SQ DNR/DNI Dipso-cont hopspitalization/PCU status, still requiring high flow oxygen supplementation. Prognosis poor but continuing treatment and supportive care at this time. Prognosis remains poor Will ask for PT and OT evaluation for possible placement Admission and Anticipated Discharge Date Admission Date: May 22, 2020 Subjective 06/17/2020 The patient was seen and examined in telemetry/Covid unit He has been feeling a little better since the left team about 1 week ago He has been requiring high flow oxygen at around FiO2 of 40 Denies any significant symptoms except weakness and tiredness 06/18/2020 The patient was seen and examined in telemetry/Covid unit He remains stable with shortness of breath on minimal exertion Still requiring high flow oxygen at 8 L/min via oxygen mask 06/19/2020 The patient was seen and examined in telemetry/Covid unit He has been feeling worse today with increasing shortness of breath at rest and with minimal exertion He is requiring more than 10 L of oxygen via oxygen mask to maintain saturation Generally weak and lethargic 06/20/2020 The patient was seen and examined in medical telemetry unit He has been deteriorating and requiring more oxygen at rest and with minimal exertion Denies any significant pain 06/21/2020 The patient was seen and examined in medical telemetry unit His condition has been deteriorating He is requiring 15 L of oxygen mask to maintain saturation Denies any other significant symptoms 06/22/2020 The patient was seen and examined in medical telemetry unit He remained stable but critical and he still requires high flow oxygen to maintain saturation Remains extremely weak and lethargic 06/23/2020 The patient was seen and examined in medical telemetry unit He is still requiring high flow oxygen at 15 L via oxygen mask to maintain saturation He has been getting more shortness of breath with minimal exertion Denies any pain, fever and or chills Review of Systems Review of Systems: All systems reviewed and are unremarkable except as noted below Constitutional: + weakness Neurologic: + generalized weakness; no tremor(s), no headache(s) and no confusion Physical Exam Physical Exam: Lying in bed with moderate shortness of breath at rest Constitutional: well developed, well nourished, + acute distress (Due to shortness of breath) and + ill appearing Eyes: PERRL, conjunctivae normal, anicteric sclerae ENMT: external ear and nose normal, oropharynx normal Neck: trachea midline, no thyromegaly Respiratory: + respiratory distress, + labored breathing, + uses accessory muscles and + cough Auscultation: + diminished lung sounds, + crackles and + wheezes Cardiovascular: Rate/Rhythm: regular rate and regular rhythm Heart Sounds: no murmur Gastrointestinal (Abdomen): Inspection/Auscultation: normal bowel sounds; abdomen not distended Percussion/Palpation: abdomen soft; abdomen nontender Musculoskeletal: No acute arthritis in any joint Psychiatric: A+Ox3, euthymic affect Lymphatic: no cervical or axillary lymphadenopathy Results & Data Results & Data ([facility]) Vital Signs (Past 12 Hours) Vital Signs Temp Pulse Pulse Resp BP Pulse Ox Pulse Ox 06/23/20 15:03 86 06/23/20 15:00 36.8 C 83 20 128/71 93 06/23/20 11:41 94 06/23/20 11:00 36.7 C 80 18 130/77 93 06/23/20 07:17 76 06/23/20 07:00 36.5 C 76 18 148/64 H 94 Pulse Ox Pulse Ox 06/23/20 15:03 06/23/20 15:00 06/23/20 11:41 86 L 75 L 06/23/20 11:00 06/23/20 07:17 06/23/20 07:00 Laboratory Results Short CBC 06/23/20 Range/Units 07:27 WBC 10.38 (4.8-10.8) K/uL Hgb 9.2 L (14.0-18.0) g/dL Hct 28.1 L (42-52) % Plt Count 482 H (130-400) K/uL BMP 06/23/20 07:27 Sodium 139 Potassium 4.3 Chloride 104 Carbon Dioxide 29 BUN 51 H Creatinine 2.23 H Glucose 249 H Calcium 8.6 Medications Administered Current Inpatient Medications Acetaminophen (Acetaminophen 500 Mg Tab) 1,000 mg PO Q8H PRN PRN Reason: pain/fever Stop: 07/10/20 21:59 Last Admin: 06/17/20 08:51 Dose: 1,000 mg Documented by: Acetaminophen (Acetaminophen 500 Mg Tab) 1,000 mg PO Q8H MARY Stop: 07/15/20 17:29 Last Admin: 06/23/20 08:56 Dose: 1,000 mg Documented by: Albuterol (Albuterol Hfa 8 Gm Inhaler) 2 puffs INH Q4R PRN PRN Reason: shortness of breath Stop: 06/28/20 16:37 Last Admin: 06/17/20 19:24 Dose: 2 puffs Documented by: Ascorbic Acid (Ascorbic Acid 500 Mg Tab) 500 mg PO BID MARY Stop: 07/12/20 20:59 Last Admin: 06/23/20 08:58 Dose: 500 mg Documented by: Dextrose (Dextrose 50% 50 Ml Syringe) 25 - 50 ml IV UD PRN; Protocol PRN Reason: Hypoglycemia Protocol Stop: 07/22/20 20:59 Fludrocortisone Acetate (Fludrocortisone Acetate 0.1 Mg Tab) 0.3 mg PO QAM MARY Stop: 07/03/20 08:59 Last Admin: 06/23/20 08:57 Dose: 0.3 mg Documented by: Gabapentin (Gabapentin 300 Mg Cap) 300 mg PO TID MARY Stop: 07/11/20 08:59 Last Admin: 06/23/20 14:23 Dose: 300 mg Documented by: Glucagon (Glucagon For Inj 1 Mg Vial) 1 mg IM UD PRN; Protocol PRN Reason: Hypoglycemia Protocol Stop: 07/22/20 20:59 Glucose (Glucose 40% Gel 15 Gm Tube) 15 - 30 gm PO UD PRN; Protocol PRN Reason: Hypoglycemia Protocol Stop: 07/22/20 20:59 Glucose (Glucose 10 Tabs/Tube) 4 - 8 tabs PO UD PRN; Protocol PRN Reason: Hypoglycemia Protocol Stop: 07/22/20 20:59 Heparin Sodium (Beef Lung) (Heparin 10 Unit/Ml 5 Ml Flush) 5 ml FLUSH PRN PRN PRN Reason: Flush Stop: 07/03/20 22:44 Heparin Sodium (Porcine) (Heparin Sod 5,000 Unit/0.5 Ml Vial) 5,000 units SQ Q12 MARY Stop: 07/03/20 08:59 Last Admin: 06/23/20 08:57 Dose: 5,000 units Documented by: Furosemide 40 mg/ Syringe 4 mls @ 4 mls/min IV DAILY MARY Stop: 07/15/20 17:29 Last Admin: 06/23/20 08:56 Dose: 4 mls/min Documented by: Lorazepam (Ativan) 0.25 mg in 0.5 mls @ 0.5 mls/min IV Q6H PRN PRN Reason: Anxiety/Agitation Stop: 07/21/20 08:58 Last Admin: 06/22/20 21:44 Dose: 0.5 mls/min Documented by: Insulin Aspart (Insulin Aspart 100 Units/Ml 3 Ml Pen) 0 units SC [facility]; Protocol Stop: 07/12/20 11:29 Last Admin: 06/23/20 12:32 Dose: 15 units Documented by: Insulin Glargine (Insulin Glargine Solostar 100 Units/Ml 3 Ml Pen) [facility] [place] Protocol Stop: 07/18/20 08:59 Last Admin: 06/23/20 09:10 Dose: 15 units Documented by: Insulin Glargine (Insulin Glargine Solostar 100 Units/Ml 3 Ml Pen) 0 units SC [facility]; Protocol Stop: 07/23/20 20:59 Miscellaneous (Carbohydrates For Hypoglycemia ) 15 - 30 gm PO UD PRN PRN Reason: Hypoglycemia Treatment Stop: 07/22/20 20:59 Last Admin: 06/22/20 20:45 Dose: 15 gm Documented by: Multi-Ingredient Cream (Eucerin Cr 120 Gm Jar) 1 appln EXT BID PRN PRN Reason: Rash Stop: 06/28/20 11:00 Multivitamins (Multivitamin Tab) 1 tab PO QAM [facility] Stop: 07/03/20 08:59 Last Admin: 06/23/20 08:56 Dose: 1 tab Documented by: Oxycodone HCl (Oxycodone Hcl Ir 5 Mg Tab (Immediate Release)) 5 mg PO Q8H PRN PRN Reason: severe neuropathic pain Stop: 06/24/20 21:05 Pantoprazole Sodium (Pantoprazole 40 Mg Tab) 40 [facility] [place] Stop: 06/26/20 18:29 Last Admin: 06/23/20 08:56 Dose: 40 mg Documented by: Polyethylene Glycol (Polyethylene (Miralax) 17 Gm Pack) 17 gm PO Q6H PRN PRN Reason: Constipation Stop: 07/13/20 18:55 Last Admin: 06/19/20 15:59 Dose: 17 gm Documented by: Potassium Chloride (Potassium Chloride Crtab 20 Meq Tabcr) 20 meq PO BID [facility] Stop: 07/08/20 10:29 Last Admin: 06/23/20 08:57 Dose: 20 meq Documented by: Senna/Docusate Sodium (Docusate Sodium/Senna 50/8.6mg Tab) 1 tab PO [facility] Stop: 07/14/20 08:59 Last Admin: 06/23/20 08:56 Dose: 1 tab Documented by: Thiamine HCl (Thiamine Hcl 100 Mg Tab) 100 mg PO BID [facility] Stop: 06/28/20 08:59 Last Admin: 06/23/20 08:58 Dose: 100 mg Documented by: Vitamin D (Cholecalciferol 1,000 Units 25 Mcg Tab) 1,000 units PO [facility] Stop: 07/12/20 18:29 Last Admin: 06/23/20 08:56 Dose: 1,000 units Documented by: Zinc Sulfate (Zinc Sulfate 220 Mg Capsule) 220 mg PO [facility] Stop: 07/12/20 18:29 Last Admin: 06/23/20 08:57 Dose: 220 mg Documented by: (1) CKD (chronic kidney disease), stage III Chronic kidney disease stage 3 subtype: stage 3b (GFR 30-44) Qualified Code(s): N18.32 - Chronic kidney disease, stage 3b
[2020-06-23] MEDS ORDERED: VANCOMYCIN CONSULT ACTIVE PRN (20:08)
--- NOTE | 2020-06-23 20:11 | Pharmacy Report ---
Pharmacy Abx Dose Short Note - Date of Service June 23, 2020 - Assessment & Plan Assessment 55 year old M receiving vancomycin/Unasyn for treatment of worsening pulmonary function Day # 1 of antimicrobial therapy. Patient has received Rocephin, doxycycline, cefepime, and Flagyl during extended hospital stay. Plan Vancomycin Patient meets criteria for vancomycin AUC dosing nomogram AUC/LINN is the preferred PK/PD target for vancomycin * Target AUC/LINN = 400-600 * AUC guided dosing is effective and associated with decreased risk of nephrotoxicity Pharmacy will continue to follow and will adjust dose/frequency as necessary. Thank you.
[2020-06-23] MEDS ORDERED: VANCOMYCIN HCL 2,000 MG in SODIUM CHLORIDE 0.9% 500 ML IV ONE (21:00)
[2020-06-23] MEDS ORDERED: INSULIN GLARGINE SOLOSTAR 100 UNITS/ML 3 ML PEN SC SCH (21:00)
[2020-06-23] MEDS: AMPICILLIN/SULBACTAM SOD 3,000 MG in 0.9 % SODIUM CHLORIDE 100 ML IV SCH (21:31)
[2020-06-24] MEDS: ACETAMINOPHEN 500 MG TAB PO SCH ×4 (00:29→16:55)
[2020-06-24] MEDS: INSULIN ASPART 100 UNITS/ML 3 ML PEN SC SCH ×5 (00:30→23:16)
[2020-06-24] MEDS: ALBUTEROL HFA 8 GM INHALER INH PRN (01:55)
[2020-06-24] MEDS: AMPICILLIN/SULBACTAM SOD 3,000 MG in 0.9 % SODIUM CHLORIDE 100 ML IV SCH ×4 (02:12→20:56)
[2020-06-24] MEDS: LORazepam 0.25 MG/0.5 ML VIAL IV PRN (02:13)
[2020-06-24] MEDS ORDERED: PHARMACY GLYCEMIC MGMT CONSULT PRN (07:34)
[2020-06-24] MEDS: GABAPENTIN 300 MG CAP PO SCH ×3 (08:42→20:56)
[2020-06-24] MEDS: FLUDROCORTISONE ACETATE 0.1 MG TAB PO SCH (08:43)
[2020-06-24] MEDS: HEPARIN SOD 5,000 UNIT/0.5 ML VIAL SQ SCH ×2 (08:44→20:57)
[2020-06-24] MEDS: FUROSEMIDE 40 MG in SYRINGE 0 ML IV SCH (08:45)
[2020-06-24] MEDS: THIAMINE HCL 100 MG TAB PO SCH ×2 (08:45→20:56)
[2020-06-24] MEDS: ASCORBIC ACID 500 MG TAB PO SCH ×2 (08:45→20:56)
[2020-06-24] MEDS: MULTIVITAMIN TAB PO SCH (08:46)
[2020-06-24] MEDS: CHOLECALCIFEROL 1,000 UNITS 25 MCG TAB PO SCH (08:46)
[2020-06-24] MEDS: POTASSIUM CHLORIDE CRTAB 20 MEQ TABCR PO SCH ×2 (08:46→20:56)
[2020-06-24] MEDS: ZINC SULFATE 220 MG CAPSULE PO SCH (08:46)
[2020-06-24] MEDS: PANTOprazole 40 MG TAB PO SCH (08:46)
[2020-06-24] MEDS ORDERED: SODIUM CHLORIDE 0.65% NA SOLN 45 ML (OCEAN) ONE (09:00)
[2020-06-24] MEDS: INSULIN GLARGINE SOLOSTAR 100 UNITS/ML 3 ML PEN SC SCH (09:16)
--- NOTE | 2020-06-24 10:51 | Pharmacy Report ---
Pharmacy Glycemic Short Note 2 - Date of Service June 24, 2020 - Glycemic Short BSG Results (Last 24 hours): 06/23/20 06/23/20 06/23/20 11:16 16:41 20:21 POC Glucose 300 H 89 73 06/23/20 06/24/20 23:41 05:23 POC Glucose 158 H 189 H Outpatient Anti-diabetic Regimen: * Lantus 15 units SC qAM, 8 units SC qPM * A1c = 8.3 % on 05/23/20 ASSESSMENT: 06/24: * BSGs yesterday of 267, 300, 89, and 73 mg/dL * 41 units of insulin received yesterday (15 units of Lantus and 26 units of prandial/correctional) * Fasting BSG of 189 mg/dL this morning * Chest CT yesterday revealed fluid filled esophagus * Given risk of aspiration - patient made NPO * Will decrease Lantus dose this morning given NPO status - plan for HS scale this evening * Concern for worsening pneumonia - vancomycin and Unasyn initiated last evening 06/22: * BSGs yesterday of 82, 106, 175, and 176 mg/dL * Patient received 23 units of insulin yesterday * 19 units of basal and 4 units of prandial/correctional * Fasting BSG of 57 mg/dL on BMP 06/20: * Patient received total of 24 units of insulin yesterday, of which 21 were basal insulin. Insulin needs much decreasing with steroids being dc'ed on 06/18. * BSGs on lower end of range today, but stable at 112-98 mg/dL - continue same basal insulin for now * May loosen CF/CR slightly today 06/19: * Pt has received 61 units of SQ insulin over the past 24hrs * 23 units of basal insulin with Lantus * 38 units of bolus insulin with NovoLog * Pt with LOW BSG this AM. Hypoglycemia at 62-67-96 mg/dl. May have been cause by too much basal insulin; however, current basal insulin dosing is c/w outpatient dosing. Will reduce PM dose of Lantus this evening to prevent subsequent LOW tomorrow. * Will loosen CF since patient may have too much basal insulin on board * No changes needed to CHO coverage. * Prednisone DC yesterday; this will help stabilize BSGs PLAN FOR INPATIENT GLYCEMIC CONTROL: * Basal insulin * Lantus 8 units SC x 1 this morning * Lantus scale SC HS (0-7 units - see EHR for details) * Bolus insulin: continue * Novolog SQ ACHS * Goal range: 110-140mg/dL * Correction Factor: 40 mg/dL/unit * Nutritional / Prandial insulin per carb ratio of 1 unit per 5 grams CHO consumed
[2020-06-24] MEDS: DOCUSATE SODIUM/SENNA 50/8.6MG TAB PO SCH (13:56)
--- NOTE | 2020-06-24 14:11 | Pulmonology Progress Note ---
Date of Service June 24, 2020 Assessment & Plan (1) Necrotizing pneumonia: A CT of his chest was obtained on 06/23/2020 which demonstrates necrotizing pneumonia in the left upper lobe with extensive multifocal airspace consolidation. These findings likely represent a viral pneumonia with superimposed bacterial pneumonia. I agree with Unasyn at this time. Recommend obtaining an MRSA screen. Follow-up procalcitonin. Determination of HIV status would be beneficial as well. I would recommend an infectious disease consult. Please obtain a sputum culture if able. Blood cultures are pending. He does have small pleural effusions likely related to volume overload from hypoalbuminemia and CHF. Recommend as needed diuresis. There is not a large enough pocket for a thoracentesis at this time. He also has a dilated and fluid-filled esophagus which may be related to his diabetic neuropathy. I would recommend a gastroenterology consultation to evaluate his esophagus. Recommend maintaining the head of the bed elevated. Speech therapy consultation may be beneficial as well. His prognosis is very poor especially in light of his chronic renal failure. Pulmonary will follow peripherally. Please call with questions. Thank you for the consult. (2) COVID-19: (3) Diabetic neuropathy: (4) Acute respiratory failure with hypoxia: (5) Moderate protein-energy malnutrition: (6) Aperistalsis, esophagus: Admission and Anticipated Discharge Date Admission Date: May 22, 2020 Subjective Patient notes minimal shortness of breath. He denies any dysphagia or coughing while eating. He denies any fevers or chills. No chest pain. He does note occasional hypoglycemic episodes at night and night sweats related to hypoglycemia. Review of Systems Review of Systems: All systems reviewed & are unremarkable except as noted in HPI & below Physical Exam Constitutional: + ill appearing Eyes: PERRL, conjunctivae normal, anicteric sclerae ENMT: external ear and nose normal, oropharynx normal Neck: normal visual inspection Respiratory: Diffuse crackles bilaterally predominantly in the upper lobes Cardiovascular: RRR, no murmur, no edema Gastrointestinal (Abdomen): normal bowel sounds, soft, nontender, no hepatosplenomegaly Musculoskeletal: no cyanosis or clubbing, extremities motor strength 5/5 Skin: no rashes, warm and dry Neurologic: PERRL, EOMI, accommodation nl, no face palsy, no dysarthria Psychiatric: A+Ox3, euthymic affect Results & Data Results & Data ([place]) Vital Signs (Past 12 Hours) Vital Signs Temp Pulse Pulse Resp BP Pulse Ox 06/24/20 11:45 98.4 F 83 20 115/67 94 06/24/20 09:30 81 06/24/20 07:48 99.1 F 89 135/73 91 06/24/20 03:30 98.4 F 81 21 113/68 93 I reviewed the vital signs, labs and imaging PG Care Time/CCT Total # of Minutes Spent Total Time Spent with Patient: Total time spent is greater than 50% in coordination of care (as documented) at patient's floor/unit and/or counseling patient: Coding Level of Care Code 49460 Subseq Hosp Care Lvl 3 Diagnoses Necrotizing pneumonia J85.0 COVID-19 U07.1 Diabetic neuropathy E11.40 Acute respiratory failure with hypoxia J96.01 Moderate protein-energy malnutrition E44.0 Aperistalsis, esophagus K22.0
--- NOTE | 2020-06-24 17:25 | Hospitalist Progress Note ---
Date of Service June 24, 2020 Assessment & Plan (1) Acute respiratory failure with hypoxia: Acute respiratory distress syndrome with severe hypoxic respiratory failure on admission secondary to COVID-19 infection Received one unit of conv plasma on 05/27. Steroids x 3 weeks have been tapered off. Was not a candidate for remdesivir 2/2 renal failure. Continues on high flow oxygen supplementation occasionally transitioning to oxymask. CT of the chest without contrast on 06/23 revealed multifocal airspace consolidation with necrotizing/cavitary pneumonia in the ERASMO, and fluid in the distal esophagus. cont Unasyn and Vanc--MRSA screen and trend procalcitonin consult ID and GI HIV screening, verbal consent over the phone. Cont to wean oxygen as tolerated. Cont daily diuretic and monitor kidney function. (2) Pneumonia due to COVID-19 virus: He completed a robust antibiotic course while admitted. (Doxycycline 100mg BID 5 dys, stopped for 2, resumed 05/30 for 7 full days, Ceftriaxone x 14 days, Cefepime for an additional 3 days after the ceftriaxone completed, and Flagyl for 8 days.) Cont care plan as outlined above with supportive care measures. Repeat COVID-19 is positive No more Covid test is required Patient is still remains in isolation but not in negative pressure room (3) Diabetes mellitus type I: brittle diabetic with difficult to control glucose. Glycemic pharmacist managing and has his on basal bolus SQ insulin at this point. Controlled for now. (4) CKD (chronic kidney disease), stage III: Resolved to baseline renal function. Patient has Stage 3 CKD. creatinine 06/23 was 2.2 (5) Thrush, oral: From prolonged steroids. Completed course of nystatin. (6) Diabetic neuropathy: Persistent. Home dose gabapentin was 600mg PO QID decreased to 300mg PO BID because of renal insufficiency. Cont with gabapentin 300mg PO TID dosing for now with current renal function. Cont scheduled Tylenol and PRN oxy for discomfort with minimization of narcotic with current respiratory status. (7) Hypothyroidism: chronic, stable, Continue levothyroxine per home regimen. (8) Depression: chronic, stable. Cont Prozac per home regimen. (9) Constipation: Resolved, BM reported yesteday. (10) DVT prophylaxis: Lovenox DNR/DNI Dipso-somewhat improved from last week. Continues on new antibiotic course for necrotizing pneumonia. Uncertain disposition at this time. Kenya Cagle DO [facility] Hospitalist Admission and Anticipated Discharge Date Admission Date: May 22, 2020 Subjective 55 yo M with covid pneumonia -persists on high oxygen requirements -CT scan of chest yesterday reveals fluid filled esophagus suggestive of GI issue and contiributing to risk of aspiration pnuemonia -also showed necrotizing pneumonia, poss 2/2 aspiration? -was made NPO but speech unable to see today -pt hungry and restarted diet, advised patient and nurse re: aspiration precautions -appreciate pulm input-requested studies and risk management consultant input was ordered. -patient is afebrile, neuropathy is manageable and no other symptoms at this time. Review of Systems Review of Systems: All systems reviewed & are unremarkable except as noted in Subjective Physical Exam Physical Exam: CONSTITUTIONAL: vitals as above, generally thin, inmate in restraints. EYES: normal conjunctivae, no scleral icterus ENT: external ear and nose normal, MMM RESPIRATORY: normal respiratory effort on 15 LPM oxygen face mask, easily desaturates with speaking or minimal exertion, improved. clear to auscultation throughout with very scant rhonchi if at all. CARDIOVASCULAR: regular rate and rhythm, S1 and 2 heard without murmurs, gallops or rubs, no JVD, no peripheral edema GASTROINTESTINAL: soft, nontender, nondistended, no guarding MUSCULOSKELETAL: generalized weakness, head is normocephalic and atraumatic SKIN: warm and dry NEUROLOGIC: CN 2-12 grossly intact, normal cognition, normal speech, no gross focal deficits. PSYCHIATRIC: alert cooperative and answering questions appropriately. Results & Data Results & Data ([facility]) Vital Signs (Past 12 Hours) Vital Signs Temp Pulse Pulse Resp BP BP Pulse Ox 06/24/20 14:34 36.8 C 79 18 136/69 96 06/24/20 11:45 36.9 C 83 20 115/67 94 06/24/20 09:30 81 06/24/20 07:48 37.3 C 89 135/73 91 Medications Administered Current Inpatient Medications Acetaminophen (Acetaminophen 500 Mg Tab) 1,000 mg PO Q8H PRN PRN Reason: pain/fever Stop: 07/10/20 21:59 Last Admin: 06/17/20 08:51 Dose: 1,000 mg Documented by: Acetaminophen (Acetaminophen 500 Mg Tab) 1,000 mg PO Q8H [facility] Stop: 07/15/20 17:29 Last Admin: 06/24/20 16:55 Dose: Not Given Documented by: Albuterol (Albuterol Hfa 8 Gm Inhaler) 2 puffs INH Q4R PRN PRN Reason: shortness of breath Stop: 06/28/20 16:37 Last Admin: 06/24/20 01:55 Dose: 2 puffs Documented by: Ascorbic Acid (Ascorbic Acid 500 Mg Tab) 500 mg PO BID MARY Stop: 07/12/20 20:59 Last Admin: 06/24/20 08:45 Dose: 500 mg Documented by: Dextrose (Dextrose 50% 50 Ml Syringe) 25 - 50 ml IV UD PRN; Protocol PRN Reason: Hypoglycemia Protocol Stop: 07/22/20 20:59 Fludrocortisone Acetate (Fludrocortisone Acetate 0.1 Mg Tab) 0.3 mg PO QAM MARY Stop: 07/03/20 08:59 Last Admin: 06/24/20 08:43 Dose: 0.3 mg Documented by: Gabapentin (Gabapentin 300 Mg Cap) 300 mg PO TID MARY Stop: 07/11/20 08:59 Last Admin: 06/24/20 13:56 Dose: 300 mg Documented by: Glucagon (Glucagon For Inj 1 Mg Vial) 1 mg IM UD PRN; Protocol PRN Reason: Hypoglycemia Protocol Stop: 07/22/20 20:59 Glucose (Glucose 40% Gel 15 Gm Tube) 15 - 30 gm PO UD PRN; Protocol PRN Reason: Hypoglycemia Protocol Stop: 07/22/20 20:59 Glucose (Glucose 10 Tabs/Tube) 4 - 8 tabs PO UD PRN; Protocol PRN Reason: Hypoglycemia Protocol Stop: 07/22/20 20:59 Heparin Sodium (Beef Lung) (Heparin 10 Unit/Ml 5 Ml Flush) 5 ml FLUSH PRN PRN PRN Reason: Flush Stop: 07/03/20 22:44 Heparin Sodium (Porcine) (Heparin Sod 5,000 Unit/0.5 Ml Vial) 5,000 units SQ Q12 MARY Stop: 07/03/20 08:59 Last Admin: 06/24/20 08:44 Dose: 5,000 units Documented by: Furosemide 40 mg/ Syringe 4 mls @ 4 mls/min IV DAILY MARY Stop: 07/15/20 17:29 Last Admin: 06/24/20 08:45 Dose: 4 mls/min Documented by: Lorazepam (Ativan) 0.25 mg in 0.5 mls @ 0.5 mls/min IV Q6H PRN PRN Reason: Anxiety/Agitation Stop: 07/21/20 08:58 Last Admin: 06/24/20 02:13 Dose: 0.5 mls/min Documented by: Ampicillin Sodium/Sulbactam Sodium 3,000 mg/ Sodium Chloride 108 mls @ 200 mls/hr IV Q6H MARY; Protocol Stop: 06/30/20 20:59 Last Admin: 06/24/20 16:23 Dose: 108 mls/hr Documented by: Vancomycin HCl 1,500 mg/ (Sodium Chloride) 530 mls @ 200 mls/hr IV Q24H MARY Stop: 06/30/20 00:38 Insulin Aspart (Insulin Aspart 100 Units/Ml 3 Ml Pen) 0 units SC Q6 MARY; Protocol Stop: 07/12/20 11:29 Last Admin: 06/24/20 17:12 Dose: Not Given Documented by: Insulin Glargine (Insulin Glargine Solostar 100 Units/Ml 3 Ml Pen) 8 units SC QAM [facility]; Protocol Stop: 07/18/20 08:59 Last Admin: 06/24/20 09:16 Dose: 8 units Documented by: Insulin Glargine (Insulin Glargine Solostar 100 Units/Ml 3 Ml Pen) 0 units SC HS [facility]; Protocol Stop: 06/24/20 21:01 Miscellaneous (Carbohydrates For Hypoglycemia ) 15 - 30 gm PO UD PRN PRN Reason: Hypoglycemia Treatment Stop: 07/22/20 20:59 Last Admin: 06/22/20 20:45 Dose: 15 gm Documented by: Miscellaneous Information (Vancomycin Consult Active) 1 ea N/A UD PRN PRN Reason: Consult Stop: 07/23/20 20:07 Miscellaneous Information (Pharmacy Glycemic Mgmt Consult) 1 ea N/A UD PRN PRN Reason: Consult Stop: 07/24/20 07:33 Multi-Ingredient Cream (Eucerin Cr 120 Gm Jar) 1 appln EXT BID PRN PRN Reason: Rash Stop: 06/28/20 11:00 Multivitamins (Multivitamin Tab) 1 tab PO QAM [facility] Stop: 07/03/20 08:59 Last Admin: 06/24/20 08:46 Dose: 1 tab Documented by: Oxycodone HCl (Oxycodone Hcl Ir 5 Mg Tab (Immediate Release)) 5 mg PO Q8H PRN PRN Reason: severe neuropathic pain Stop: 06/24/20 21:05 Pantoprazole Sodium (Pantoprazole 40 Mg Tab) [facility] [place] Stop: 06/26/20 18:29 Last Admin: 06/24/20 08:46 Dose: 40 mg Documented by: Polyethylene Glycol (Polyethylene (Miralax) 17 Gm Pack) 17 gm PO Q6H PRN PRN Reason: Constipation Stop: 07/13/20 18:55 Last Admin: 06/19/20 15:59 Dose: 17 gm Documented by: Potassium Chloride (Potassium Chloride Crtab 20 Meq Tabcr) 20 meq PO BID [facility] Stop: 07/08/20 10:29 Last Admin: 06/24/20 08:46 Dose: 20 meq Documented by: Senna/Docusate Sodium (Docusate Sodium/Senna 50/8.6mg Tab) 1 tab PO [facility] Stop: 07/14/20 08:59 Last Admin: 06/24/20 13:56 Dose: 1 tab Documented by: Thiamine HCl (Thiamine Hcl 100 Mg Tab) 100 mg PO BID [facility] Stop: 06/28/20 08:59 Last Admin: 06/24/20 08:45 Dose: 100 mg Documented by: Vitamin D (Cholecalciferol 1,000 Units 25 Mcg Tab) 1,000 units PO [facility] Stop: 07/12/20 18:29 Last Admin: 06/24/20 08:46 Dose: 1,000 units Documented by: Zinc Sulfate (Zinc Sulfate 220 Mg Capsule) 220 mg PO [facility] Stop: 07/12/20 18:29 Last Admin: 06/24/20 08:46 Dose: 220 mg Documented by: (1) CKD (chronic kidney disease), stage III Chronic kidney disease stage 3 subtype: stage 3b (GFR 30-44) Qualified Code(s): N18.32 - Chronic kidney disease, stage 3b
[2020-06-24] MEDS: CARBOHYDRATES FOR HYPOGLYCEMIA PO PRN (20:32)
[2020-06-24] MEDS ORDERED: INSULIN GLARGINE SOLOSTAR 100 UNITS/ML 3 ML PEN SC SCH (21:00)
[2020-06-24] MEDS ORDERED: VANCOMYCIN HCL 1,500 MG in SODIUM CHLORIDE 0.9% 500 ML IV SCH (22:00)
[2020-06-25] MEDS: ACETAMINOPHEN 500 MG TAB PO SCH ×3 (00:35→17:13)
[2020-06-25] MEDS: AMPICILLIN/SULBACTAM SOD 3,000 MG in 0.9 % SODIUM CHLORIDE 100 ML IV SCH ×4 (02:46→21:05)
[2020-06-25 07:06] LABS: Hematocrit (blood only) 27.2 % (42-52); Hemoglobin 8.7 g/dL (14.0-18.0); Mean Corpuscular Hemoglobin 27.9 pg (25-34); Mean Corpuscular Volume 87.2 fL (80-100); Mean Platelet Volume 9.3 fL (7.4-10.4); Platelet Count 490 K/uL (130-400); RDW Coefficient of Variation 16.1 % (11.5-14.5); RDW Standard Deviation 51.6 fL (36.4-46.3); Red Blood Count 3.12 M/uL (4.7-6.1); White Blood Count 10.18 K/uL (4.8-10.8)
[2020-06-25 07:36] LABS: BUN Creatinine Ratio 18.9 (10-20); Creatinine Clr Calc Pharmacy 40.8 ml/min; Est GFR (Non-African American) 31.9; Potassium 3.9 mmol/L (3.5-5.1)
--- NOTE | 2020-06-25 08:14 | Gastrointestinal Consultation ---
Date of Consultation June 25, 2020 Assessment & Plan (1) COVID-19: 55 year old male admitted w/ acute respiratory distress syndrome with severe hypoxic respiratory failure on admission secondary to COVID-19 infection s/p one unit of conv plasma on 05/27, received steroids x 3 weeks, not a candidiate for remdesivir due to renal failure who remains on oxymask at 15L w/ O2 sats in the 80's this AM who underwent chest CT imaging last two days ago w/ multifocal airspace consolidation with necrotizing/cavitary pneumonia in the ERASMO, and fluid in the distal esophagus on IV ABX. He notes today he has had worsening SOB but he is able to converse slowly with me - currently tolerating breakfast without any GI concern, no nausea/vomiting/regurgitation, denies dysphagia He is high risk for sedation for diagnostic EGD Would recommend NPO status Consider TPN for nutrition Agree with DONOR RELATIONS MANAGER evaluation PPI BID Once clinically stable, consider endoscopic evaluation Thank you for allowing us to participate in the care of this patient. Please call with any acute changes, questions or concerns. Please see addendum below with additional recommendation from my supervising physician. (2) Necrotizing pneumonia: Supervising Physician Co-Signing Physician Notes I have discussed the management with KAYLIE Burdick. I spoke with the patient and he reports no dysphagia, no prior issues with dysphagia, he feels he can eat and when he does he does not spit anything up and feels it goes down. He reports he has been tolerating a diet. [facility]- non contrast ct showing fluid filled e sophagus. I wonder if this is a reactive incidental finding related to his pneumonia as he has no clinical evidence of dysphagia or obstruction. He currently still has covid and an extremely high oxygen requirement. There is no current need for an urgent egd given his tolerance of po and it would unlikely be of much benefit to him given the risks of sedation with his current high oxygen requirement. Continue with current medical optimization of his pulmonary status. Could consider PPN for additional nutritional requirements on a temporary purpose if indicated. History of Present Illness Reason for Consultation: fluid filled esophagus Requesting Physician: Gurjit Attending Physician: Kenya Cagle, DO History of Present Illness 55 year old male w/ DM, hypothyroidism, CKD, NSETMI, dyslipidemia admitted w/ acute respiratory distress syndrome with severe hypoxic respiratory failure on admission secondary to COVID-19 infection s/p one unit of conv plasma on 05/27, received steroids x 3 weeks, not a candidate for remdesivir due to renal failure who remains on on high flow oxygen supplementation occasionally transitioning to oxymask w/ O2 sats in the 80's this AM who underwent chest CT imaging last two days ago w/ multifocal airspace consolidation with necrotizing/cavitary pneumonia in the ERASMO, and fluid in the distal esophagus on IV ABX. GI asked to evaluate for fluid filled esophagus. Due to active COVID-19 diagnosis, initial consultation to be completed via telemedicine. I tried to contact the room phone at [phone] x 2 attempts at [phone] and [phone] without answer. I was able to get in touch with the patient via phone at [phone]. He reports today is not a good day for his breathing. Feels more SOB than yesterday. No cough. No abd pain. No nausea, vomiting. No GERD. No burning, regurgitation. He notes his swallowing is fine. No dysphagia. He did tolerate food last evening and is currently eating breakfast. Eating eggs/oatmeal. Denies any acute GI concerns. Prior to COVID diagnosis - no GI concerns. Denies history of GERD, nausea/vomiting. No prior weight loss. No ETOH. No tobacco. Uses Motrin PRN but not daily. No family history of GI malignances Chest CT: Cardiomegaly and emphysema with evidence of pulmonary artery hypertension.Extensive multifocal airspace consolidation as above. There is evidence of necrotizing/cavitary pneumonia in the left upper lobe.. Small pleural effusions. Fluid fills the esophagus to the level of the genaro. Note that this may place the patient at risk for aspiration. EGD: not completed before Colonoscopy around age 49: he reports this was normal Allergies Allergy/AdvReac Type Severity Reaction Status Date / Time No Known Drug Allergies Allergy Unknown NONE Verified 05/22/20 20:27 Home Medications Medication Instructions Recorded Confirmed Type Lantus U-100 Insulin 8 unit SUBCUT HS 05/09/18 05/22/20 History aspirin [Aspir-81] 81 mg PO DAILY 05/09/18 05/22/20 History atorvastatin 80 mg PO HS 05/09/18 05/22/20 History B complex 92-mmmpr-[id number]-biot-zinc 1 tab PO DAILY 05/22/20 05/22/20 History [Dialyvite] alendronate [Fosamax] 70 mg PO TU 05/22/20 05/22/20 History fludrocortisone 0.3 mg PO DAILY 05/22/20 05/22/20 History fluoxetine [Prozac] 40 mg PO DAILY 05/22/20 05/22/20 History gabapentin 600 mg PO QID 05/22/20 05/22/20 History insulin glargine [Lantus U-100 15 unit SUBCUT QAM 05/22/20 05/22/20 History Insulin] insulin regular human [Novolin R 1 sliding scale dose SUBCUT 05/22/20 05/22/20 History Regular U-100 Insuln] USEASDIRECTD levalbuterol tartrate [Xopenex HFA] 2 inh INHALATION QID 05/22/20 05/22/20 History levothyroxine 137 mcg PO DAILY 05/22/20 05/22/20 History lisinopril 2.5 mg PO DAILY 05/22/20 05/22/20 History ondansetron 4 mg PO Q6H PRN 05/22/20 05/22/20 History vitamin E 1,000 unit PO DAILY 05/22/20 05/22/20 History Patient History Medical History (Updated 06/24/20 @ 14:11 by Radhames Esteban MD) Aperistalsis, esophagus Diabetes mellitus type 1 Hypothyroidism Moderate protein-energy malnutrition Necrotizing pneumonia NSTEMI (non-ST elevated myocardial infarction) Orthostatic hypotension on chronic fludrocortisone Proteinuria Family History Other No pertinent family history Social History Smoking Status: Never smoker Hx Alcohol Use: No Hx Substance Use: No Preferred Language: Occitan Communication Ability: Effective Visual Impairment: No Limitations Beliefs That Will Affect Care: None Current Living Situation: Other Current Living Situation Comment: [facility] Feels Safe at Home: Yes Assistive Devices: Oxygen - Continuous Review of Systems Constitutional: + fatigue; no fever and no chills Respiratory: + dyspnea; no cough Cardiovascular: no chest pain Gastrointestinal: no abdominal pain, no heartburn, no nausea, no coffee ground emesis, no hematemesis, no dysphagia, no constipation, no diarrhea/loose stools, no blood in stools and no melena Physical Exam Physical Exam: Did no conduct a PE Results & Data ([facility]) Vital Signs (Past 12 Hours) Vital Signs Temp Pulse Pulse Pulse Resp BP BP 06/25/20 07:40 36.9 C 80 20 135/75 06/25/20 07:07 75 06/25/20 02:54 36.8 C 76 18 144/77 H 06/25/20 00:15 83 06/24/20 23:30 37.3 C 86 18 125/67 06/24/20 20:23 36.7 C 84 147/80 H Pulse Ox 06/25/20 07:40 97 06/25/20 07:07 06/25/20 02:54 97 06/25/20 00:15 06/24/20 23:30 93 06/24/20 20:23 93 Laboratory Results 06/25/20 06/25/20 06/25/20 Range/Units 07:21 06:39 06:39 WBC (4.8-10.8) K/uL RBC (4.7-6.1) M/uL Hgb (14.0-18.0) g/dL Hct (42-52) % MCV (80-100) fL MCH (25-34) pg MCHC (32-36) g/dL RDW Std Deviation (36.4-46.3) fL RDW Coeff of Minnie (11.5-14.5) % Plt Count (130-400) K/uL MPV (7.4-10.4) fL Sodium (136-145) mmol/L Potassium (3.5-5.1) mmol/L Chloride (98-107) mmol/L Carbon Dioxide (21-32) mmol/L Anion Gap (3-11) BUN (7-18) mg/dl Creatinine (0.6-1.4) mg/dl Est Cr Clr Drug Dosing ml/min Est GFR ( Amer) Est GFR (Non-Af Amer) BUN/Creatinine Ratio (10-20) Glucose (70-99) mg/dl POC Glucose 97 (70-99) mg/dl Calcium (8.5-10.1) mg/dl Procalcitonin 2.28 H (0-0.5) ng/ml Nasal Screen MRSA (PCR) (Negative) HIV 1&2 Ab/P24 Ag 4thGn Pending 06/25/20 06/25/20 06/24/20 Range/Units 06:39 06:39 20:50 WBC 10.18 (4.8-10.8) K/uL RBC 3.12 L (4.7-6.1) M/uL Hgb 8.7 L (14.0-18.0) g/dL Hct 27.2 L (42-52) % MCV 87.2 (80-100) fL MCH 27.9 (25-34) pg MCHC 32.0 (32-36) g/dL RDW Std Deviation 51.6 H (36.4-46.3) fL RDW Coeff of Minnie 16.1 H (11.5-14.5) % Plt Count 490 H (130-400) K/uL MPV 9.3 (7.4-10.4) fL Sodium 139 (136-145) mmol/L Potassium 3.9 (3.5-5.1) mmol/L Chloride 106 (98-107) mmol/L Carbon Dioxide 27 (21-32) mmol/L Anion Gap 6.0 (3-11) BUN 42 H (7-18) mg/dl Creatinine 2.22 H (0.6-1.4) mg/dl Est Cr Clr Drug Dosing 40.8 ml/min Est GFR ( Amer) 37.0 Est GFR (Non-Af Amer) 31.9 BUN/Creatinine Ratio 18.9 (10-20) Glucose 85 (70-99) mg/dl POC Glucose 86 (70-99) mg/dl Calcium 8.0 L (8.5-10.1) mg/dl Procalcitonin (0-0.5) ng/ml Nasal Screen MRSA (PCR) (Negative) HIV 1&2 Ab/P24 Ag 4thGn 06/24/20 06/24/20 06/24/20 Range/Units 20:05 16:51 16:30 WBC (4.8-10.8) K/uL RBC (4.7-6.1) M/uL Hgb (14.0-18.0) g/dL Hct (42-52) % MCV (80-100) fL MCH (25-34) pg MCHC (32-36) g/dL RDW Std Deviation (36.4-46.3) fL RDW Coeff of Minnie (11.5-14.5) % Plt Count (130-400) K/uL MPV (7.4-10.4) fL Sodium (136-145) mmol/L Potassium (3.5-5.1) mmol/L Chloride (98-107) mmol/L Carbon Dioxide (21-32) mmol/L Anion Gap (3-11) BUN (7-18) mg/dl Creatinine (0.6-1.4) mg/dl Est Cr Clr Drug Dosing ml/min Est GFR ( Amer) Est GFR (Non-Af Amer) BUN/Creatinine Ratio (10-20) Glucose (70-99) mg/dl POC Glucose 54 L* 83 (70-99) mg/dl Calcium (8.5-10.1) mg/dl Procalcitonin (0-0.5) ng/ml Nasal Screen MRSA (PCR) Cancelled (Negative) HIV 1&2 Ab/P24 Ag 4thGn 06/24/20 06/24/20 06/24/20 Range/Units 14:00 11:40 07:36 WBC (4.8-10.8) K/uL RBC (4.7-6.1) M/uL Hgb (14.0-18.0) g/dL Hct (42-52) % MCV (80-100) fL MCH (25-34) pg MCHC (32-36) g/dL RDW Std Deviation (36.4-46.3) fL RDW Coeff of Minnie (11.5-14.5) % Plt Count (130-400) K/uL MPV (7.4-10.4) fL Sodium (136-145) mmol/L Potassium (3.5-5.1) mmol/L Chloride (98-107) mmol/L Carbon Dioxide (21-32) mmol/L Anion Gap (3-11) BUN (7-18) mg/dl Creatinine (0.6-1.4) mg/dl Est Cr Clr Drug Dosing ml/min Est GFR ( Amer) Est GFR (Non-Af Amer) BUN/Creatinine Ratio (-20) Glucose (70-99) mg/dl POC Glucose 130 H 162 H (70-99) mg/dl Calcium (8.5-10.1) mg/dl Procalcitonin (0-0.5) ng/ml Nasal Screen MRSA (PCR) Negative (Negative) HIV 1&2 Ab/P24 Ag 4thGn
[2020-06-25] MEDS: ALBUTEROL HFA 8 GM INHALER INH PRN (08:27)
[2020-06-25] MEDS: INSULIN ASPART 100 UNITS/ML 3 ML PEN SC SCH ×4 (09:25→21:06)
[2020-06-25] MEDS: INSULIN GLARGINE SOLOSTAR 100 UNITS/ML 3 ML PEN SC SCH ×2 (09:27→21:07)
[2020-06-25] MEDS: MULTIVITAMIN TAB PO SCH (09:33)
[2020-06-25] MEDS: FUROSEMIDE 40 MG in SYRINGE 0 ML IV SCH (09:33)
[2020-06-25] MEDS: GABAPENTIN 300 MG CAP PO SCH ×3 (09:33→21:05)
[2020-06-25] MEDS: FLUDROCORTISONE ACETATE 0.1 MG TAB PO SCH (09:33)
[2020-06-25] MEDS: PANTOprazole 40 MG TAB PO SCH (09:33)
[2020-06-25] MEDS: ZINC SULFATE 220 MG CAPSULE PO SCH (09:33)
[2020-06-25] MEDS: POTASSIUM CHLORIDE CRTAB 20 MEQ TABCR PO SCH ×2 (09:33→21:05)
[2020-06-25] MEDS: ASCORBIC ACID 500 MG TAB PO SCH ×2 (09:34→21:05)
[2020-06-25] MEDS: ENOXAPARIN INJ 40 MG/0.4 ML SYR SQ SCH (09:35)
[2020-06-25] MEDS: DOCUSATE SODIUM/SENNA 50/8.6MG TAB PO SCH (09:37)
[2020-06-25] MEDS: THIAMINE HCL 100 MG TAB PO SCH ×2 (09:38→21:05)
[2020-06-25] MEDS: CHOLECALCIFEROL 1,000 UNITS 25 MCG TAB PO SCH (09:38)
[2020-06-25] MEDS: ONDANSETRON INJ 2 MG/ML 2 ML VIAL IV PRN (14:47)
[2020-06-25] MEDS ORDERED: INSULIN GLARGINE SOLOSTAR 100 UNITS/ML 3 ML PEN SC SCH (18:00)
--- NOTE | 2020-06-25 20:00 | Hospitalist Progress Note ---
Date of Service June 25, 2020 Assessment & Plan (1) Acute respiratory failure with hypoxia: Acute respiratory distress syndrome with severe hypoxic respiratory failure on admission secondary to COVID-19 infection Received one unit of conv plasma on 05/27. Steroids x 3 weeks have been tapered off. Was not a candidate for remdesivir 2/2 renal failure. Continues on significant oxygen supplementation. CT of the chest without contrast on 06/23 revealed multifocal airspace consolidation with necrotizing/cavitary pneumonia in the ERASMO, and fluid in the distal esophagus. cont Unasyn, vancomycin discontinued with negative MRSA screen. Procalcitonin is trending down. Repeat chest x-ray this evening shows increased pulmonary edema and additional dose of Lasix will be given. Infectious disease consult and agrees with the results. HIV screeningis negative. Results were discussed with patient verbalized understanding. Cont to wean oxygen as tolerated. Cont daily diuretic and monitor kidney function, being conservative with lab draws in setting of anemia with recent need for blood transfusion. (2) Pneumonia due to COVID-19 virus: He completed a robust antibiotic course while admitted. (Doxycycline 100mg BID 5 dys, stopped for 2, resumed 05/30 for 7 full days, Ceftriaxone x 14 days, Cefepime for an additional 3 days after the ceftriaxone completed, and Flagyl for 8 days.) Now with bacterial superinfection likely secondary to aspir ation with gram-negative and anaerobic coverage. Cont care plan as outlined above with supportive care measures. (3) Diabetes mellitus type I: brittle diabetic with difficult to control glucose. Glycemic pharmacist managing and has his on basal bolus SQ insulin at this point. Controlled for now. (4) CKD (chronic kidney disease), stage III: Resolved to baseline renal function. Patient has Stage 3 CKD. (5) Diabetic neuropathy: Persistent. Home dose gabapentin was 600mg PO QID decreased to 300mg PO BID because of renal insufficiency. Cont with gabapentin 300mg PO TID dosing for now with current renal function. Cont Tylenol and PRN oxy for discomfort with minimization of narcotic with current respiratory status. (6) Hypothyroidism: chronic, stable, Continue levothyroxine per home regimen. (7) Depression: chronic, stable. Cont Prozac per home regimen. (8) Constipation: Resolved, BM reported yesteday. (9) DVT prophylaxis: Lovenox DNR/DNI Dipso-somewhat improved from last week. Continues on new antibiotic course for necrotizing pneumonia. Uncertain disposition at this time. [facility] Admission and Anticipated Discharge Date Admission Date: May 22, 2020 Subjective 55 yo M with covid pneumonia -discussed recommendations around NPO status -patient and I agree that he would like to eat and will observe strict aspiration precautions -reports feeling slightly more short of breath today -peripheral neuropathy still an issue but is tolerable with current gabapentin and Tylenol -I disclosed his negative HIV results to him and he verbalized understanding of this. Review of Systems Review of Systems: All systems reviewed & are unremarkable except as noted in Subjective Physical Exam Physical Exam: CONSTITUTIONAL: vitals as above, generally thin, inmate in restraints. EYES: normal conjunctivae, no scleral icterus ENT: external ear and nose normal, MMM RESPIRATORY: normal respiratory effort on 15 LPM oxygen face mask. Coarse crackles throughout, jennifer at bases bilaterally. CARDIOVASCULAR: regular rate and rhythm, S1 and 2 heard without murmurs, gallops or rubs, no JVD, no peripheral edema GASTROINTESTINAL: soft, nontender, nondistended, no guarding MUSCULOSKELETAL: generalized weakness, head is normocephalic and atraumatic SKIN: warm and dry NEUROLOGIC: CN 2-12 grossly intact, normal cognition, normal speech, no gross focal deficits. PSYCHIATRIC: alert cooperative and answering questions appropriately. Results & Data Results & Data ([facility]) Vital Signs (Past 12 Hours) Vital Signs Temp Pulse Pulse Resp BP BP Pulse Ox 06/25/20 15:45 36.2 C L 77 18 128/75 93 06/25/20 15:00 79 06/25/20 11:21 36.9 C 87 22 127/67 95 06/25/20 08:27 80 24 90 Laboratory Results Short CBC 06/25/20 Range/Units 06:39 WBC 10.18 (4.8-10.8) K/uL Hgb 8.7 L (14.0-18.0) g/dL Hct 27.2 L (42-52) % Plt Count 490 H (130-400) K/uL BMP 06/25/20 06:39 Sodium 139 Potassium 3.9 Chloride 106 Carbon Dioxide 27 BUN 42 H Creatinine 2.22 H Glucose 85 Calcium 8.0 L (1) CKD (chronic kidney disease), stage III Chronic kidney disease stage 3 subtype: stage 3b (GFR 30-44) Qualified Code(s): N18.32 - Chronic kidney disease, stage 3b
[2020-06-26] MEDS ORDERED: FUROSEMIDE 40 MG in SYRINGE 0 ML IV ONE (00:15)
[2020-06-26] MEDS: ACETAMINOPHEN 500 MG TAB PO SCH ×3 (03:14→17:44)
[2020-06-26] MEDS: AMPICILLIN/SULBACTAM SOD 3,000 MG in 0.9 % SODIUM CHLORIDE 100 ML IV SCH ×4 (05:18→22:05)
[2020-06-26 07:40] LABS: BUN Creatinine Ratio 16.5 (10-20); Calcium 8.2 mg/dl (8.5-10.1); Creatinine Clr Calc Pharmacy 37.1 ml/min; Est GFR (Non-African American) 28.5; Potassium 3.8 mmol/L (3.5-5.1)
--- NOTE | 2020-06-26 07:59 | XRay Report ---
XR chest 1V portable CLINICAL HISTORY: increased SOB, pneumonia, COVID COMPARISON STUDY: 06/17/2020 FINDINGS: The cardiac and mediastinal contours remain stable. There are multifocal airspace opacities consistent with a multifocal pneumonia. There is slight worsening in the pulmonary consolidative lo nges. Trace pleural effusions are suspected. IMPRESSION: Continued progression in the bilateral airspace opacities consistent with a focal pneumon ia ACT 112: Negative or not required by law. Electronically signed by: Jason Ram M.D. 06/26/2020 7:58 AM
[2020-06-26] MEDS: ZINC SULFATE 220 MG CAPSULE PO SCH (09:42)
[2020-06-26] MEDS: FLUDROCORTISONE ACETATE 0.1 MG TAB PO SCH (09:42)
[2020-06-26] MEDS: GABAPENTIN 300 MG CAP PO SCH ×3 (09:43→22:03)
[2020-06-26] MEDS: THIAMINE HCL 100 MG TAB PO SCH ×2 (09:43→22:05)
[2020-06-26] MEDS: PANTOprazole 40 MG TAB PO SCH (09:43)
[2020-06-26] MEDS: ASCORBIC ACID 500 MG TAB PO SCH ×2 (09:43→22:05)
[2020-06-26] MEDS: POTASSIUM CHLORIDE CRTAB 20 MEQ TABCR PO SCH ×2 (09:43→22:00)
[2020-06-26] MEDS: MULTIVITAMIN TAB PO SCH (09:43)
[2020-06-26] MEDS: FUROSEMIDE 40 MG in SYRINGE 0 ML IV SCH (09:44)
[2020-06-26] MEDS: ENOXAPARIN INJ 40 MG/0.4 ML SYR SQ SCH (09:44)
[2020-06-26] MEDS: CHOLECALCIFEROL 1,000 UNITS 25 MCG TAB PO SCH (09:53)
[2020-06-26] MEDS: DOCUSATE SODIUM/SENNA 50/8.6MG TAB PO SCH (09:58)
--- NOTE | 2020-06-26 10:14 | Pharmacy Report ---
Pharmacy Glycemic Short Note 2 - Date of Service June 26, 2020 - Glycemic Short BSG Results (Last 24 hours): 06/25/20 06/25/20 06/25/20 11:19 17:09 21:01 Glucose POC Glucose 169 H 85 186 H 06/26/20 06/26/20 06:54 07:23 Glucose 147 H POC Glucose 165 H Outpatient Anti-diabetic Regimen: * Lantus 15 units SC qAM, 8 units SC qPM * A1c = 8.3 % on 05/23/20 ASSESSMENT: 06/26: * BSGs yesterday of 97, 169, 85, and 186 mg/dL * Patient received 33 units of insulin (15 units of basal and 18 units of prandial/correctional) * Fasting BSG of 165 mg/dL this morning * Will keep BID dosing of Lantus - increase Lantus scale this evening to provide up to 9 units * Vancomycin discontinued yesterday, continues on Unasyn 06/24: * BSGs yesterday of 267, 300, 89, and 73 mg/dL * 41 units of insulin received yesterday (15 units of Lantus and 26 units of prandial/correctional) * Fasting BSG of 189 mg/dL this morning * Chest CT yesterday revealed fluid filled esophagus * Given risk of aspiration - patient made NPO * Will decrease Lantus dose this morning given NPO status - plan for HS scale this evening * Concern for worsening pneumonia - vancomycin and Unasyn initiated last evening 06/19: * Pt has received 61 units of SQ insulin over the past 24hrs * 23 units of basal insulin with Lantus * 38 units of bolus insulin with NovoLog * Pt with LOW BSG this AM. Hypoglycemia at 62-67-96 mg/dl. May have been cause by too much basal insulin; however, current basal insulin dosing is c/w outpatient dosing. Will reduce PM dose of Lantus this evening to prevent subsequent LOW tomorrow. * Will loosen CF since patient may have too much basal insulin on board * No changes needed to CHO coverage. * Prednisone DC yesterday; this will help stabilize BSGs PLAN FOR INPATIENT GLYCEMIC CONTROL: * Basal insulin * Lantus 8 units SC qAM * Lantus scale SC HS (4-9 units - see EHR for details) * Bolus insulin: continue * Novolog SQ ACHS * Goal range: 110-140mg/dL * Correction Factor: 40 mg/dL/unit * Nutritional / Prandial insulin per carb ratio of 1 unit per 6 grams CHO consumed
[2020-06-26] MEDS: INSULIN GLARGINE SOLOSTAR 100 UNITS/ML 3 ML PEN SC SCH ×2 (10:41→21:50)
[2020-06-26] MEDS: INSULIN ASPART 100 UNITS/ML 3 ML PEN SC SCH ×4 (10:41→21:50)
[2020-06-26] MEDS ORDERED: oxyCODONE HCL IR 5 MG TAB (IMMEDIATE RELEASE) PO STA (14:33)
[2020-06-26] MEDS: ONDANSETRON INJ 2 MG/ML 2 ML VIAL IV PRN (17:56)
[2020-06-26] MEDS ORDERED: FUROSEMIDE 20 MG in SYRINGE 0 ML IV ONE (20:00)
--- NOTE | 2020-06-26 20:00 | Hospitalist Progress Note ---
Date of Service June 26, 2020 Assessment & Plan (1) Acute respiratory failure with hypoxia: Acute respiratory distress syndrome with severe hypoxic respiratory failure on admission secondary to COVID-19 infection Received one unit of conv plasma on 05/27. Steroids x 3 weeks have been tapered off. Was not a candidate for remdesivir 2/2 renal failure. Continues on significant oxygen supplementation. CT of the chest without contrast on 06/23 revealed multifocal airspace consolidation with necrotizing/cavitary pneumonia in the ERASMO, and fluid in the distal esophagus. cont Unasyn, vancomycin discontinued with negative MRSA screen. Procalcitonin is trending down. Repeat chest x-ray on 06/25 in response to increase shortness of breath per patient reveals increased pulmonary edema. He is slightly better today but has a mild bump in creatinine to 2.4. Persistent crackles at the right base with intermittent shortness of breath. Will give additional 20 mg Lasix IV now. HIV screening is negative. Results were discussed with patient verbalized understanding. Cont to wean oxygen as tolerated. Cont daily diuretic and monitor kidney function, being conservative with lab draws in setting of anemia with recent need for blood transfusion. (2) Pneumonia due to COVID-19 virus: He completed a robust antibiotic course while admitted. (Doxycycline 100mg BID 5 dys, stopped for 2, resumed 05/30 for 7 full days, Ceftriaxone x 14 days, Cefepime for an additional 3 days after the ceftriaxone completed, and Flagyl for 8 days.) Now with bacterial superinfection likely secondary to aspiration with gram-negative and anaerobic coverage. Cont care plan as outlined above with supportive care measures. Patient will need at least 2 more weeks of antibiotics in the setting of necrotizing pneumonia. (3) Diabetes mellitus type I: brittle diabetic with difficult to control glucose. Glycemic pharmacist managing and has his on basal bolus SQ insulin at this point. Controlled for now. (4) CKD (chronic kidney disease), stage III: Resolved to baseline renal function. Patient has Stage 3 CKD. (5) Diabetic neuropathy: Persistent. Home dose gabapentin was 600mg PO QID decreased to 300mg PO BID because of renal insufficiency. Cont with gabapentin 300mg PO TID dosing for now with current renal function. Cont Tylenol and PRN oxy for discomfort with minimization of narcotic with current respiratory status. (6) Hypothyroidism: chronic, stable, Continue levothyroxine per home regimen. (7) Depression: chronic, stable. Cont Prozac per home regimen. (8) Constipation: Resolved, BM reported yesteday. (9) DVT prophylaxis: Lovenox DNR/DNI Dipso-remains hypoxic but is improving on new antibiotic therapy. Continue current course. Patient will need at least 2 more weeks of antibiotics in the setting of necrotizing pneumonia. DO [facility] Hospitalist Admission and Anticipated Discharge Date Admission Date: May 22, 2020 Subjective CC: acute respiratory failure -Tolerating p.o -Reports breathing is not worse or better but intermittent -Continues to observe strict aspiration precautions while eating -Reports having a bowel movement today -Asking for something more strong for severe peripheral neuropathic pain Review of Systems Review of Systems: All systems reviewed & are unremarkable except as noted in Subjective Physical Exam Physical Exam: CONSTITUTIONAL: vitals as above, generally thin, inmate in restraints. EYES: normal conjunctivae, no scleral icterus ENT: external ear and nose normal, MMM RESPIRATORY: normal respiratory effort on 15 LPM oxygen face mask. Coarse crackles improved and only auscultated over right base today. CARDIOVASCULAR: regular rate and rhythm, S1 and 2 heard without murmurs, gallops or rubs, no JVD, no peripheral edema GASTROINTESTINAL: soft, nontender, nondistended, no guarding MUSCULOSKELETAL: generalized weakness, head is normocephalic and atraumatic SKIN: warm and dry NEUROLOGIC: CN 2-12 grossly intact, normal cognition, normal speech, no gross focal deficits. PSYCHIATRIC: alert cooperative and answering questions appropriately. Results & Data Results & Data ([facility]) Vital Signs (Past 12 Hours) Vital Signs Temp Pulse Pulse Pulse Pulse Resp BP 06/26/20 19:11 36.9 C 84 18 134/77 06/26/20 18:08 06/26/20 16:00 76 06/26/20 15:02 37.6 C H 76 22 120/69 06/26/20 11:35 36.8 C 77 20 120/71 06/26/20 08:00 72 Pulse Ox 06/26/20 19:11 98 06/26/20 18:08 93 06/26/20 16:00 06/26/20 15:02 94 06/26/20 11:35 99 06/26/20 08:00 Laboratory Results [facility] 06/26/20 06:54 Sodium 139 Potassium 3.8 Chloride 104 Carbon Dioxide 26 BUN 40 H Creatinine 2.44 H Glucose 147 H Calcium 8.2 L Medications Administered Current Inpatient Medications Acetaminophen (Acetaminophen 500 Mg Tab) 1,000 mg PO Q8H MARY Stop: 07/15/20 17:29 Last Admin: 06/26/20 17:44 Dose: 1,000 mg Documented by: Albuterol (Albuterol Hfa 8 Gm Inhaler) 2 puffs INH Q4R PRN PRN Reason: shortness of breath Stop: 06/28/20 16:37 Last Admin: 06/25/20 08:27 Dose: 2 puffs Documented by: Ascorbic Acid (Ascorbic Acid 500 Mg Tab) 500 mg PO BID MARY Stop: 07/12/20 20:59 Last Admin: 06/26/20 09:43 Dose: 500 mg Documented by: Dextrose (Dextrose 50% 50 Ml Syringe) 25 - 50 ml IV UD PRN; Protocol PRN Reason: Hypoglycemia Protocol Stop: 07/22/20 20:59 Enoxaparin Sodium (Enoxaparin Inj 40 Mg/0.4 Ml Syr) 40 mg SQ QAM MARY Stop: 07/25/20 08:59 Last Admin: 06/26/20 09:44 Dose: 40 mg Documented by: Fludrocortisone Acetate (Fludrocortisone Acetate 0.1 Mg Tab) 0.3 mg PO QAM MARY Stop: 07/03/20 08:59 Last Admin: 06/26/20 09:42 Dose: 0.3 mg Documented by: Gabapentin (Gabapentin 300 Mg Cap) 300 mg PO TID MARY Stop: 07/11/20 08:59 Last Admin: 06/26/20 14:48 Dose: 300 mg Documented by: Glucagon (Glucagon For Inj 1 Mg Vial) 1 mg IM UD PRN; Protocol PRN Reason: Hypoglycemia Protocol Stop: 07/22/20 20:59 Glucose (Glucose 40% Gel 15 Gm Tube) 15 - 30 gm PO UD PRN; Protocol PRN Reason: Hypoglycemia Protocol Stop: 07/22/20 20:59 Glucose (Glucose 10 Tabs/Tube) 4 - 8 tabs PO UD PRN; Protocol PRN Reason: Hypoglycemia Protocol Stop: 07/22/20 20:59 Heparin Sodium (Beef Lung) (Heparin 10 Unit/Ml 5 Ml Flush) 5 ml FLUSH PRN PRN PRN Reason: Flush Stop: 07/03/20 22:44 Furosemide 40 mg/ Syringe 4 mls @ 4 mls/min IV DAILY MARY Stop: 07/15/20 17:29 Last Admin: 06/26/20 09:44 Dose: 4 mls/min Documented by: Lorazepam (Ativan) 0.25 mg in 0.5 mls @ 0.5 mls/min IV Q6H PRN PRN Reason: Anxiety/Agitation Stop: 07/21/20 08:58 Last Admin: 06/24/20 02:13 Dose: 0.5 mls/min Documented by: Ampicillin Sodium/Sulbactam Sodium 3,000 mg/ Sodium Chloride 108 mls @ 200 mls/hr IV Q6H MARY; Protocol Stop: 06/30/20 20:59 Last Infusion: 06/26/20 15:50 Dose: Infused Documented by: Insulin Aspart (Insulin Aspart 100 Units/Ml 3 Ml Pen) 0 units SC ACHS [facility]; Protocol Stop: 07/25/20 07:29 Last Admin: 06/26/20 17:50 Dose: Not Given Documented by: Insulin Glargine (Insulin Glargine Solostar 100 Units/Ml 3 Ml Pen) 8 units SC QAM [facility]; Protocol Stop: 07/18/20 08:59 Last Admin: 06/26/20 10:41 Dose: 8 units Documented by: Insulin Glargine (Insulin Glargine Solostar 100 Units/Ml 3 Ml Pen) 0 units SC [facility]; Protocol Stop: 07/25/20 17:59 Last Admin: 06/25/20 21:07 Dose: 7 units Documented by: Miscellaneous (Carbohydrates For Hypoglycemia ) 15 - 30 gm PO UD PRN PRN Reason: Hypoglycemia Treatment Stop: 07/22/20 20:59 Last Admin: 06/24/20 20:32 Dose: 15 gm Documented by: Miscellaneous Information (Pharmacy Glycemic Mgmt Consult) 1 ea N/A UD PRN PRN Reason: Consult Stop: 07/24/20 07:33 Multi-Ingredient Cream (Eucerin Cr 120 Gm Jar) 1 appln EXT BID PRN PRN Reason: Rash Stop: 06/28/20 11:00 Multivitamins (Multivitamin Tab) 1 tab PO QAM [facility] Stop: 07/03/20 08:59 Last Admin: 06/26/20 09:43 Dose: 1 tab Documented by: Ondansetron HCl (Ondansetron Inj 2 Mg/Ml 2 Ml Vial) 4 mg IV Q8H PRN PRN Reason: nausea or vomiting Stop: 07/25/20 14:14 Last Admin: 06/26/20 17:56 Dose: 4 mg Documented by: Oxycodone HCl (Oxycodone Hcl Ir 5 Mg Tab (Immediate Release)) 5 mg PO Q6H PRN PRN Reason: Pain Stop: 07/10/20 14:32 Polyethylene Glycol (Polyethylene (Miralax) 17 Gm Pack) 17 gm PO Q6H PRN PRN Reason: Constipation Stop: 07/13/20 18:55 Last Admin: 06/19/20 15:59 Dose: 17 gm Documented by: Potassium Chloride (Potassium Chloride Crtab 20 Meq Tabcr) 20 meq PO BID [facility] Stop: 07/08/20 10:29 Last Admin: 06/26/20 09:43 Dose: 20 meq Documented by: Senna/Docusate Sodium (Docusate Sodium/Senna 50/8.6mg Tab) [facility] Stop: 07/14/20 08:59 Last Admin: 06/26/20 09:58 Dose: 1 tab Documented by: Thiamine HCl (Thiamine Hcl 100 Mg Tab) 100 mg PO BID [facility] Stop: 06/28/20 08:59 Last Admin: 06/26/20 09:43 Dose: 100 mg Documented by: Vitamin D (Cholecalciferol 1,000 Units 25 Mcg Tab) 1,000 units PO QAM [facility] Stop: 07/12/20 18:29 Last Admin: 06/26/20 09:53 Dose: 1,000 units Documented by: Zinc Sulfate (Zinc Sulfate 220 Mg Capsule) 220 mg PO QAM [facility] Stop: 07/12/20 18:29 Last Admin: 06/26/20 09:42 Dose: 220 mg Documented by: (1) CKD (chronic kidney disease), stage III Chronic kidney disease stage 3 subtype: stage 3b (GFR 30-44) Qualified Code(s): N18.32 - Chronic kidney disease, stage 3b
[2020-06-26] MEDS ORDERED: VANCOMYCIN TROUGH ONE (21:30)
[2020-06-27] MEDS: ACETAMINOPHEN 500 MG TAB PO SCH ×3 (01:06→21:14)
[2020-06-27] MEDS: AMPICILLIN/SULBACTAM SOD 3,000 MG in 0.9 % SODIUM CHLORIDE 100 ML IV SCH ×4 (01:07→21:21)
[2020-06-27] MEDS: INSULIN ASPART 100 UNITS/ML 3 ML PEN SC SCH ×4 (07:30→21:35)
[2020-06-27] MEDS: ENOXAPARIN INJ 40 MG/0.4 ML SYR SQ SCH (09:00)
[2020-06-27] MEDS: POTASSIUM CHLORIDE CRTAB 20 MEQ TABCR PO SCH ×2 (09:00→21:16)
[2020-06-27] MEDS: ZINC SULFATE 220 MG CAPSULE PO SCH (09:00)
[2020-06-27] MEDS: FLUDROCORTISONE ACETATE 0.1 MG TAB PO SCH (09:00)
[2020-06-27] MEDS: ASCORBIC ACID 500 MG TAB PO SCH ×2 (09:00→21:22)
[2020-06-27] MEDS: MULTIVITAMIN TAB PO SCH (09:00)
[2020-06-27] MEDS: INSULIN GLARGINE SOLOSTAR 100 UNITS/ML 3 ML PEN SC SCH ×2 (09:00→21:35)
[2020-06-27] MEDS: FUROSEMIDE 40 MG in SYRINGE 0 ML IV SCH (09:00)
[2020-06-27] MEDS: DOCUSATE SODIUM/SENNA 50/8.6MG TAB PO SCH (09:00)
[2020-06-27] MEDS: THIAMINE HCL 100 MG TAB PO SCH ×2 (09:00→21:24)
[2020-06-27] MEDS: CHOLECALCIFEROL 1,000 UNITS 25 MCG TAB PO SCH (09:00)
[2020-06-27] MEDS: GABAPENTIN 300 MG CAP PO SCH ×3 (09:00→21:20)
[2020-06-27] MEDS: oxyCODONE HCL IR 5 MG TAB (IMMEDIATE RELEASE) PO PRN (19:28)
--- NOTE | 2020-06-27 20:00 | Hospitalist Progress Note ---
Date of Service June 27, 2020 Assessment & Plan (1) Acute respiratory failure with hypoxia: Acute respiratory distress syndrome with severe hypoxic respiratory failure on admission secondary to COVID-19 infection Received one unit of conv plasma on 05/27. Steroids x 3 weeks have been tapered off. Was not a candidate for remdesivir 2/2 renal failure. Continues on significant oxygen supplementation. CT of the chest without contrast on 06/23 revealed multifocal airspace consolidation with necrotizing/cavitary pneumonia in the ERASMO, and fluid in the distal esophagus. Unasyn started in response to new findings, vancomycin discontinued with negative MRSA screen. Procalcitonin is trending down. Repeat chest x-ray on 06/25 in response to increase shortness of breath per patient reveals increased pulmonary edema. Clear lungs to auscultation. Cont daily Lasix HIV screening is negative. Results were discussed with patient verbalized understanding. Cont to wean oxygen as tolerated. (2) Pneumonia due to COVID-19 virus: He completed a robust antibiotic course while admitted. (Doxycycline 100mg BID 5 dys, stopped for 2, resumed 05/30 for 7 full days, Ceftriaxone x 14 days, Cefepime for an additional 3 days after the ceftriaxone completed, and Flagyl for 8 days.) Now with bacterial superinfection likely secondary to aspiration with gram-negative and anaerobic coverage. Cont care plan as outlined above with supportive care measures. Patient will need at least 2 more weeks of antibiotics in the setting of necrotizing pneumonia. (3) Diabetes mellitus type I: brittle diabetic with difficult to control glucose. Glycemic pharmacist managing and has his on basal bolus SQ insulin at this point. Controlled for now. (4) CKD (chronic kidney disease), stage III: Resolved to baseline renal function. Patient has Stage 3 CKD. (5) Diabetic neuropathy: Persistent. Home dose gabapentin was 600mg PO QID decreased to 300mg PO BID because of renal insufficiency. Cont with gabapentin 300mg PO TID dosing for now with current renal function. Cont Tylenol and PRN oxy for discomfort with minimization of narcotic with current respiratory status. He was requiring oxycodone today which is fine. (6) Hypothyroidism: chronic, stable, Continue levothyroxine per home regimen. (7) Depression: chronic, stable. Cont Prozac per home regimen. (8) Psoriasis: steroid cream BID x 2 weeks. (9) DVT prophylaxis: Lovenox DNR/DNI Dipso-remains hypoxic but is improving on new antibiotic therapy. Continue current course. Patient will need at least 2 more weeks of antibiotics in the setting of necrotizing pneumonia. Kenya Cagle DO [facility] Hospitalist Admission and Anticipated Discharge Date Admission Date: May 22, 2020 Subjective 55 yo M with acute respiratory failure -peripheral neuropathy pain worse today -breathing slightly improved -has some new plaque psoriasis patches Review of Systems Review of Systems: All systems reviewed & are unremarkable except as noted in Subjective Physical Exam Physical Exam: CONSTITUTIONAL: vitals as above, generally thin, inmate in restraints. EYES: normal conjunctivae, no scleral icterus ENT: external ear and nose normal, MMM RESPIRATORY: normal respiratory effort on 13 LPM oxygen face mask. CARDIOVASCULAR: regular rate and rhythm, S1 and 2 heard without murmurs, gallops or rubs, no JVD, no peripheral edema GASTROINTESTINAL: soft, nontender, nondistended, no guarding MUSCULOSKELETAL: generalized weakness, head is normocephalic and atraumatic SKIN: warm and dry NEUROLOGIC: CN 2-12 grossly intact, normal cognition, normal speech, no gross focal deficits. PSYCHIATRIC: alert cooperative and answering questions appropriately. Results & Data Results & Data ([facility]) Vital Signs (Past 12 Hours) Vital Signs Temp Pulse Pulse Resp BP BP Pulse Ox 06/27/20 19:23 37.0 C 87 20 163/82 H 94 06/27/20 15:00 36.7 C 76 20 166/90 H 99 06/27/20 11:08 36.7 C 81 20 115/64 97 (1) CKD (chronic kidney disease), stage III Chronic kidney disease stage 3 subtype: stage 3b (GFR 30-44) Qualified Code(s): N18.32 - Chronic kidney disease, stage 3b
[2020-06-27] MEDS: BETAMETHASONE VAL 0.1% OINT 15 GM TUBE EXT SCH (21:21)
[2020-06-28] MEDS: ACETAMINOPHEN 500 MG TAB PO SCH ×3 (00:55→16:39)
[2020-06-28] MEDS: AMPICILLIN/SULBACTAM SOD 3,000 MG in 0.9 % SODIUM CHLORIDE 100 ML IV SCH ×4 (03:08→21:49)
[2020-06-28] MEDS: FLUDROCORTISONE ACETATE 0.1 MG TAB PO SCH (09:28)
[2020-06-28] MEDS: POTASSIUM CHLORIDE CRTAB 20 MEQ TABCR PO SCH ×2 (09:28→21:48)
[2020-06-28] MEDS: ENOXAPARIN INJ 40 MG/0.4 ML SYR SQ SCH (09:29)
[2020-06-28] MEDS: MULTIVITAMIN TAB PO SCH (09:29)
[2020-06-28] MEDS: GABAPENTIN 300 MG CAP PO SCH ×3 (09:29→21:49)
[2020-06-28] MEDS: ZINC SULFATE 220 MG CAPSULE PO SCH (09:30)
[2020-06-28] MEDS: CHOLECALCIFEROL 1,000 UNITS 25 MCG TAB PO SCH (09:30)
[2020-06-28] MEDS: ASCORBIC ACID 500 MG TAB PO SCH ×2 (09:30→21:50)
[2020-06-28] MEDS: DOCUSATE SODIUM/SENNA 50/8.6MG TAB PO SCH (09:36)
--- NOTE | 2020-06-28 09:46 | Pharmacy Report ---
Pharmacy Glycemic Short Note 2 - Date of Service June 28, 2020 - Glycemic Short BSG Results (Last 24 hours): 06/27/20 06/27/20 06/27/20 11:43 11:44 12:11 POC Glucose 57 L* 61 L* 72 06/27/20 06/27/20 06/28/20 17:25 21:19 07:54 POC Glucose 110 H 100 H 83 Outpatient Anti-diabetic Regimen: * Lantus 15 units SC qAM, 8 units SC qPM * A1c = 8.3 % on 05/23/20 ASSESSMENT: 06/28: * BSGs yesterday 113, 57, 72, 110, and 100 mg/dL * Patient received 12 units of basal insulin and 10 units of prandial/correctional (22 units total) * Will loosen Novolog parameters * Fasting BSG this morning of 83 mg/dL * Will plan to decrease basal insulin today 06/26: * BSGs yesterday of 97, 169, 85, and 186 mg/dL * Patient received 33 units of insulin (15 units of basal and 18 units of prandial/correctional) * Fasting BSG of 165 mg/dL this morning * Will keep BID dosing of Lantus - increase Lantus scale this evening to provide up to 9 units * Vancomycin discontinued yesterday, continues on Unasyn 06/19: * Pt has received 61 units of SQ insulin over the past 24hrs * 23 units of basal insulin with Lantus * 38 units of bolus insulin with NovoLog * Pt with LOW BSG this AM. Hypoglycemia at 62-67-96 mg/dl. May have been cause by too much basal insulin; however, current basal insulin dosing is c/w outpatient dosing. Will reduce PM dose of Lantus this evening to prevent subsequent LOW tomorrow. * Will loosen CF since patient may have too much basal insulin on board * No changes needed to CHO coverage. * Prednisone DC yesterday; this will help stabilize BSGs PLAN FOR INPATIENT GLYCEMIC CONTROL: * Basal insulin * Lantus 8 units SC qAM * Lantus scale SC HS (0-7 units - see EHR for details) * Bolus insulin: loosen * Novolog SQ ACHS * Goal range: 110-140mg/dL * Correction Factor: 40 mg/dL/unit * Nutritional / Prandial insulin per carb ratio of 1 unit per 8 grams CHO consumed
[2020-06-28] MEDS: ONDANSETRON INJ 2 MG/ML 2 ML VIAL IV PRN ×2 (09:52→17:22)
[2020-06-28] MEDS: FUROSEMIDE 40 MG in SYRINGE 0 ML IV SCH (09:53)
[2020-06-28] MEDS: BETAMETHASONE VAL 0.1% OINT 15 GM TUBE EXT SCH (10:06)
[2020-06-28] MEDS: oxyCODONE HCL IR 5 MG TAB (IMMEDIATE RELEASE) PO PRN ×3 (10:22→21:50)
[2020-06-28] MEDS: INSULIN ASPART 100 UNITS/ML 3 ML PEN SC SCH ×4 (10:35→21:00)
[2020-06-28] MEDS: INSULIN GLARGINE SOLOSTAR 100 UNITS/ML 3 ML PEN SC SCH ×2 (10:36→21:00)
[2020-06-28] MEDS ORDERED: CHLORASEPTIC 1.4% SOLN 180 ML BTL MT PRN (14:46)
[2020-06-28] MEDS ORDERED: FUROSEMIDE 20 MG in SYRINGE 0 ML IV ONE (15:00)
[2020-06-28] MEDS: BETAMETHASONE VAL 0.1% CR 15 GM EXT SCH ×2 (16:40→21:50)
--- NOTE | 2020-06-28 19:36 | Hospitalist Progress Note ---
Date of Service June 28, 2020 Assessment & Plan (1) Acute respiratory failure with hypoxia: Acute respiratory distress syndrome with severe hypoxic respiratory failure on admission secondary to COVID-19 infection Received one unit of conv plasma on 05/27. Steroids x 3 weeks have been tapered off. Was not a candidate for remdesivir 2/2 renal failure. Continues on significant oxygen supplementation. CT of the chest without contrast on 06/23 revealed multifocal airspace consolidation with necrotizing/cavitary pneumonia in the ERASMO, and fluid in the distal esophagus. Unasyn started in response to new findings, vancomycin discontinued with negative MRSA screen. Procalcitonin is trending down. Repeat chest x-ray on 06/25 in response to increase shortness of breath per patient reveals increased pulmonary edema. Improved with intermittent Lasix Clear lungs to auscultation. Cont daily Lasix HIV screening is negative. Results were discussed with patient verbalized understanding. Cont to wean oxygen as tolerated. 12-6 with increase in crackles on exam will give additional Lasix this evening. May consider repeat CT imaging in am in light of reports of severe breathing issues. (2) Pneumonia due to COVID-19 virus: He completed a robust antibiotic course while admitted. (Doxycycline 100mg BID 5 dys, stopped for 2, resumed 05/30 for 7 full days, Ceftriaxone x 14 days, Cefepime for an additional 3 days after the ceftriaxone completed, and Flagyl for 8 days.) Now with bacterial superinfection likely secondary to aspiration with gram-negative and anaerobic coverage. Cont care plan as outlined above with supportive care measures. Patient will need at least 2 more weeks of antibiotics in the setting of necrotizing pneumonia. (3) Diabetes mellitus type I: brittle diabetic with difficult to control glucose. Glycemic pharmacist managing and has his on basal bolus SQ insulin at this point. Controlled for now. (4) CKD (chronic kidney disease), stage III: Resolved to baseline renal function. Patient has Stage 3 CKD. (5) Diabetic neuropathy: Persistent. Home dose gabapentin was 600mg PO QID decreased to 300mg PO BID because of renal insufficiency. Cont with gabapentin 300mg PO TID dosing for now with current renal function. Cont Tylenol and PRN oxy for discomfort with minimization of narcotic with current respiratory status. He was requiring oxycodone today which is fine. (6) Hypothyroidism: chronic, stable, Continue levothyroxine per home regimen. (7) Depression: chronic, stable. Cont Prozac per home regimen. (8) Psoriasis: steroid cream BID x 2 weeks. (9) DVT prophylaxis: Lovenox DNR/DNI Dipso-remains hypoxic but is improving on new antibiotic therapy. Continue current course. Patient will need at least 2 more weeks of antibiotics in the setting of necrotizing pneumonia. Kenya Cagle DO [facility] Hospitalist Admission and Anticipated Discharge Date Admission Date: May 22, 2020 Subjective 55 yo M with acute respiratory failure -peripheral neuropathy pain manageable with current therapy but is painful -breathing slightly improved but has spells of feeling intermittent severe SOB. -tolerating PO Review of Systems Review of Systems: All systems reviewed & are unremarkable except as noted in Subjective Physical Exam Physical Exam: CONSTITUTIONAL: vitals as above, generally thin, inmate in restraints. EYES: normal conjunctivae, no scleral icterus ENT: external ear and nose normal, MMM RESPIRATORY: crackles on right side, good air movement on the left side, no increased work of breathing. CARDIOVASCULAR: regular rate and rhythm, S1 and 2 heard without murmurs, gallops or rubs, no JVD, no peripheral edema GASTROINTESTINAL: soft, nontender, nondistended, no guarding MUSCULOSKELETAL: generalized weakness, head is normocephalic and atraumatic SKIN: warm and dry NEUROLOGIC: CN 2-12 grossly intact, normal cognition, normal speech, no gross focal deficits. PSYCHIATRIC: alert cooperative and answering questions appropriately. Results & Data Results & Data ([facility]) Vital Signs (Past 12 Hours) Vital Signs Temp Pulse Pulse Pulse Resp BP BP 06/28/20 19:05 36.5 C 76 20 130/75 06/28/20 16:00 74 06/28/20 14:48 36.6 C 74 20 133/81 06/28/20 11:29 36.7 C 75 20 133/80 06/28/20 08:00 66 06/28/20 07:57 36.4 C L 73 20 163/85 H Pulse Ox 06/28/20 19:05 95 06/28/20 16:00 06/28/20 14:48 96 06/28/20 11:29 98 06/28/20 08:00 06/28/20 07:57 98 Medications Administered Current Inpatient Medications Acetaminophen (Acetaminophen 500 Mg Tab) 1,000 mg PO Q8H MARY Stop: 07/15/20 17:29 Last Admin: 06/28/20 16:39 Dose: 1,000 mg Documented by: Ascorbic Acid (Ascorbic Acid 500 Mg Tab) 500 mg PO BID MARY Stop: 07/12/20 20:59 Last Admin: 06/28/20 09:30 Dose: 500 mg Documented by: Betamethasone Valerate (Betamethasone Suzanne 0.1% Cr 15 Gm) 1 appln EXT BID MARY Stop: 07/28/20 15:59 Last Admin: 06/28/20 16:40 Dose: 1 appln Documented by: Dextrose (Dextrose 50% 50 Ml Syringe) 25 - 50 ml IV UD PRN; Protocol PRN Reason: Hypoglycemia Protocol Stop: 07/22/20 20:59 Enoxaparin Sodium (Enoxaparin Inj 40 Mg/0.4 Ml Syr) 40 mg SQ QAM MARY Stop: 07/25/20 08:59 Last Admin: 06/28/20 09:29 Dose: 40 mg Documented by: Fludrocortisone Acetate (Fludrocortisone Acetate 0.1 Mg Tab) 0.3 mg PO QAM MARY Stop: 07/03/20 08:59 Last Admin: 06/28/20 09:28 Dose: 0.3 mg Documented by: Gabapentin (Gabapentin 300 Mg Cap) 300 mg PO TID MARY Stop: 07/11/20 08:59 Last Admin: 06/28/20 14:40 Dose: 300 mg Documented by: Glucagon (Glucagon For Inj 1 Mg Vial) 1 mg IM UD PRN; Protocol PRN Reason: Hypoglycemia Protocol Stop: 07/22/20 20:59 Glucose (Glucose 40% Gel 15 Gm Tube) 15 - 30 gm PO UD PRN; Protocol PRN Reason: Hypoglycemia Protocol Stop: 07/22/20 20:59 Glucose (Glucose 10 Tabs/Tube) 4 - 8 tabs PO UD PRN; Protocol PRN Reason: Hypoglycemia Protocol Stop: 07/22/20 20:59 Heparin Sodium (Beef Lung) (Heparin 10 Unit/Ml 5 Ml Flush) 5 ml FLUSH PRN PRN PRN Reason: Flush Stop: 07/03/20 22:44 Furosemide 40 mg/ Syringe 4 mls @ 4 mls/min IV DAILY MARY Stop: 07/15/20 17:29 Last Admin: 06/28/20 09:53 Dose: 4 mls/min Documented by: Lorazepam (Ativan) 0.25 mg in 0.5 mls @ 0.5 mls/min IV Q6H PRN PRN Reason: Anxiety/Agitation Stop: 07/21/20 08:58 Last Admin: 06/24/20 02:13 Dose: 0.5 mls/min Documented by: Ampicillin Sodium/Sulbactam Sodium 3,000 mg/ Sodium Chloride 108 mls @ 200 mls/hr IV Q6H [facility]; Protocol Stop: 06/30/20 20:59 Last Infusion: 06/28/20 15:20 Dose: Infused Documented by: Insulin Aspart (Insulin Aspart 100 Units/Ml 3 Ml Pen) 0 units SC [facility]; Protocol Stop: 07/25/20 07:29 Last Admin: 06/28/20 17:33 Dose: Not Given Documented by: Insulin Glargine (Insulin Glargine Solostar 100 Units/Ml 3 Ml Pen) [facility]; Protocol Stop: 07/18/20 08:59 Last Admin: 06/28/20 10:36 Dose: 8 units Documented by: Insulin Glargine (Insulin Glargine Solostar 100 Units/Ml 3 Ml Pen) 0 units SC [facility]; Protocol Stop: 07/25/20 17:59 Last Admin: 06/27/20 21:35 Dose: 4 units Documented by: Miscellaneous (Carbohydrates For Hypoglycemia ) 15 - 30 gm PO UD PRN PRN Reason: Hypoglycemia Treatment Stop: 07/22/20 20:59 Last Admin: 06/24/20 20:32 Dose: 15 gm Documented by: Miscellaneous Information (Pharmacy Glycemic Mgmt Consult) 1 ea N/A UD PRN PRN Reason: Consult Stop: 07/24/20 07:33 Multivitamins (Multivitamin Tab) 1 tab PO [facility] Stop: 07/03/20 08:59 Last Admin: 06/28/20 09:29 Dose: 1 tab Documented by: Ondansetron HCl (Ondansetron Inj 2 Mg/Ml 2 Ml Vial) 4 mg IV Q8H PRN PRN Reason: nausea or vomiting Stop: 07/25/20 14:14 Last Admin: 06/28/20 17:22 Dose: 4 mg Documented by: Oxycodone HCl (Oxycodone Hcl Ir 5 Mg Tab (Immediate Release)) 5 mg PO Q6H PRN PRN Reason: Pain Stop: 07/10/20 14:32 Last Admin: 06/28/20 16:39 Dose: 5 mg Documented by: Phenol (Chloraseptic 1.4% Soln 180 Ml Btl) 2 sprays MT Q4H PRN PRN Reason: sore thorat Stop: 07/28/20 14:45 Last Admin: 06/28/20 15:19 Dose: 2 sprays Documented by: Polyethylene Glycol (Polyethylene (Miralax) 17 Gm Pack) 17 gm PO Q6H PRN PRN Reason: Constipation Stop: 07/13/20 18:55 Last Admin: 06/19/20 15:59 Dose: 17 gm Documented by: Potassium Chloride (Potassium Chloride Crtab 20 Meq Tabcr) 20 meq PO BID MARY Stop: 07/08/20 10:29 Last Admin: 06/28/20 09:28 Dose: 20 meq Documented by: Senna/Docusate Sodium (Docusate Sodium/Senna 50/8.6mg Tab) 1 [facility] Stop: 07/14/20 08:59 Last Admin: 06/28/20 09:36 Dose: Not Given Documented by: Vitamin D (Cholecalciferol 1,000 Units 25 Mcg Tab) 1,000 units [facility] Stop: 07/12/20 18:29 Last Admin: 06/28/20 09:30 Dose: 1,000 units Documented by: Zinc Sulfate (Zinc Sulfate 220 Mg Capsule) 220 mg PO QAM [facility] Stop: 07/12/20 18:29 Last Admin: 06/28/20 09:30 Dose: 220 mg Documented by: (1) CKD (chronic kidney disease), stage III Chronic kidney disease stage 3 subtype: stage 3b (GFR 30-44) Qualified Code(s): N18.32 - Chronic kidney disease, stage 3b
[2020-06-29] MEDS: ACETAMINOPHEN 500 MG TAB PO SCH ×3 (02:28→17:46)
[2020-06-29] MEDS: AMPICILLIN/SULBACTAM SOD 3,000 MG in 0.9 % SODIUM CHLORIDE 100 ML IV SCH ×4 (04:20→20:48)
[2020-06-29 06:58] LABS: Basophils # (auto) 0.06 K/uL (0-0.2); Basophils % (auto) 0.7 %; Eosinophils # (auto) 0.56 K/uL (0-0.5); Eosinophils % (auto) 6.9 %; Hematocrit (blood only) 29.5 % (42-52); Hemoglobin 9.3 g/dL (14.0-18.0); Immature Granulocytes # (auto) 0.06 K/uL (0.00-0.02); Immature Granulocytes % (auto) 0.7 %; Lymphocytes # (auto) 1.41 K/uL (1.2-3.4); Lymphocytes % (auto) 17.4 %; Mean Corpuscular Hemoglobin 27.6 pg (25-34); Mean Corpuscular Hgb Conc 31.5 g/dL (32-36); Mean Corpuscular Volume 87.5 fL (80-100); Mean Platelet Volume 9.2 fL (7.4-10.4); Monocytes # (auto) 0.83 K/uL (0.11-0.59); Monocytes % (auto) 10.2 %; Neutrophils # (auto) 5.19 K/uL (1.4-6.5); Neutrophils % (auto) 64.1 %; Platelet Count 615 K/uL (130-400); RDW Coefficient of Variation 15.7 % (11.5-14.5); RDW Standard Deviation 50.1 fL (36.4-46.3); Red Blood Count 3.37 M/uL (4.7-6.1); White Blood Count 8.11 K/uL (4.8-10.8)
[2020-06-29 07:42] LABS: BUN Creatinine Ratio 12.9 (10-20); C Reactive Protein 9.11 mg/dl (0-0.29); Calcium 7.7 mg/dl (8.5-10.1); Creatinine Clr Calc Pharmacy 42.1 ml/min; Est GFR (African American) 38.5; Est GFR (Non-African American) 33.2; Magnesium 1.8 mg/dl (1.8-2.4); Potassium 3.9 mmol/L (3.5-5.1)
[2020-06-29] MEDS: ENOXAPARIN INJ 40 MG/0.4 ML SYR SQ SCH (08:23)
[2020-06-29] MEDS: FUROSEMIDE 40 MG in SYRINGE 0 ML IV SCH (08:23)
[2020-06-29] MEDS: MULTIVITAMIN TAB PO SCH (08:24)
[2020-06-29] MEDS: CHOLECALCIFEROL 1,000 UNITS 25 MCG TAB PO SCH (08:24)
[2020-06-29] MEDS: ZINC SULFATE 220 MG CAPSULE PO SCH (08:24)
[2020-06-29] MEDS: FLUDROCORTISONE ACETATE 0.1 MG TAB PO SCH (08:24)
[2020-06-29] MEDS: DOCUSATE SODIUM/SENNA 50/8.6MG TAB PO SCH (08:24)
[2020-06-29] MEDS: GABAPENTIN 300 MG CAP PO SCH ×3 (08:24→20:48)
[2020-06-29] MEDS: ASCORBIC ACID 500 MG TAB PO SCH ×2 (08:24→20:49)
[2020-06-29] MEDS: POTASSIUM CHLORIDE CRTAB 20 MEQ TABCR PO SCH ×2 (08:24→20:48)
[2020-06-29] MEDS: BETAMETHASONE VAL 0.1% CR 15 GM EXT SCH ×2 (08:24→20:49)
[2020-06-29] MEDS: INSULIN GLARGINE SOLOSTAR 100 UNITS/ML 3 ML PEN SC SCH (08:25)
[2020-06-29] MEDS: INSULIN ASPART 100 UNITS/ML 3 ML PEN SC SCH ×4 (08:25→20:55)
[2020-06-29] MEDS: oxyCODONE HCL IR 5 MG TAB (IMMEDIATE RELEASE) PO PRN ×2 (08:35→15:51)
[2020-06-29] MEDS: CARBOHYDRATES FOR HYPOGLYCEMIA PO PRN (08:41)
--- NOTE | 2020-06-29 13:58 | Pharmacy Report ---
Glycemic Control Progress Note - Date of Service June 29, 2020 - Scope Glycemic Pharmacist consulted for glycemic control to write orders per [facility] inpatient glycemic control protocol. - Objective Accuchecks BSG(last 24 hours):: 06/27/20 06/28/20 06/28/20 07:35 16:44 21:47 Glucose POC Glucose 113 H 70 109 H 06/29/20 06/29/20 06/29/20 06:26 07:51 07:53 Glucose 50 L* POC Glucose 63 L* 69 L* 06/29/20 06/29/20 08:13 11:40 Glucose POC Glucose 80 76 HbA1c:: Hemoglobin A1c 8.3 % (4.5-5.6) H 05/23/20 05:24 - Recent Pertinent Medications The patient is currently receiving: * Basal insulin: Lantus 8 units in the morning and then 4 units in the evening * Correctional Insulin: Novolog Correction per scale ACHS Goal Range: Low 110 mg/dL - High 140 mg/dL Correction Factor: 40 mg/dL/unit * Prandial insulin: Per carb ratio of 1 unit per 8 grams CHO consumed - Outpatient Anti-Diabetic Meds Lantus 15 units in the morning and 8 units in the evening Regular insulin sliding scale - Assessment & Plan ASSESSMENT: * See progress note from 05/24/2020 for more background info, in short: * Pt receiving SQ basal bolus insulin regimen for hyperglycemia secondary to baseline DM (outpatient regimen on hold). Patient currently on Unasyn. He had poor intake yesterday and this morning. However, did eat a much larger lunch today. * Patient is currently receiving an average of 12 units of insulin per day * 12 units of basal insulin * 0 units of prandial/correctional insulin * BSGs ranging 70 - 110 mg/dl over the past 24hrs * Changes needed to insulin regimen: * AM Fasting BSG = 63 mg/dl. This is below goal range for patient based on inpatient targets and co-morbidities. This indicates that on days of poor PO intake, Lantus 12 units is too aggressive. Since patient did not eat breakfast and has uncertain PO intake throughout the rest of the day, will decrease Lantus to 11 units. * Post-prandial BSGs were fine yesterday although difficult to evaluate due to poor PO intake. Will leave the same at this point. * Total daily dose = ? units. Dependent on PO intake. PLAN FOR INPATIENT GLYCEMIC CONTROL: * DECREASING Lantus to 7 units SQ in the morning and 4 units in the evening * Continuing correction factor of 40 mg/dl/unit * Continuing carb ratio of 1 unit per 8 grams CHO consumed * Continuing goal range of Low 110 mg/dL - High 140 mg/dL * Please note that the plan above was derived based on current level of insulin resistance and hospital stress. These recommendations are appropriate for inpatient admission only. Plan of care upon discharge will need to be reassessed to avoid potential outpatient hypo/hyperglycemia. Thank you.
--- NOTE | 2020-06-29 15:57 | Hospitalist Progress Note ---
Date of Service June 29, 2020 Assessment & Plan (1) Acute respiratory failure with hypoxia: Acute respiratory distress syndrome with severe hypoxic respiratory failure on admission secondary to COVID-19 infection Received one unit of conv plasma on 05/27. Steroids x 3 weeks have been tapered off. Was not a candidate for remdesivir 2/2 renal failure. Continues on significant oxygen supplementation. CT of the chest without contrast on 06/23 revealed multifocal airspace consolidation with necrotizing/cavitary pneumonia in the ERASMO, and fluid in the distal esophagus. Unasyn started in response to new findings, vancomycin discontinued with negative MRSA screen. Procalcitonin is trending down. Repeat chest x-ray on 06/25 in response to increase shortness of breath per patient reveals increased pulmonary edema. Improved with intermittent Lasix-kidney function improved HIV screening is negative. Results were discussed with patient verbalized understanding. Cont to wean oxygen as tolerated. 12-6 with increase in crackles on exam will give additional Lasix this evening. May consider repeat CT imaging in am in light of reports of severe breathing issues. 12-7 patient continues to report intermittent episodes 10 minutes ++ where he feels severely SOB and then it resolves to his current baseline. This occurs multiple times a day and gives him the impression he is worsening. I considered a repeat CT chest with contrast to look for complications of pneumonia or PE of which he is high risk for both. In light of CKD, however, would like to get pulmonary opinion of this first and also obtain echo in am prior to ordering this. (2) Pneumonia due to COVID-19 virus: He completed a robust antibiotic course while admitted. (Doxycycline 100mg BID 5 dys, stopped for 2, resumed 05/30 for 7 full days, Ceftriaxone x 14 days, Cefepime for an additional 3 days after the ceftriaxone completed, and Flagyl for 8 days.) Now with bacterial superinfection likely secondary to aspiration with gram-negative and anaerobic coverage. Cont care plan as outlined above with supportive care measures. Patient will need at least 2 more weeks of antibiotics in the setting of necrotizing pneumonia. (3) Diabetes mellitus type I: brittle diabetic with difficult to control glucose. Glycemic pharmacist managing and has his on basal bolus SQ insulin at this point. Controlled for now. (4) CKD (chronic kidney disease), stage III: Resolved to baseline renal function. Patient has Stage 3 CKD. (5) Diabetic neuropathy: Persistent. Home dose gabapentin was 600mg PO QID decreased to 300mg PO BID because of renal insufficiency. Cont with gabapentin 300mg PO TID dosing for now with current renal function. Cont Tylenol and PRN oxy for discomfort with minimization of narcotic with current respiratory status. He was requiring oxycodone today which is fine. (6) Hypothyroidism: chronic, stable, Continue levothyroxine per home regimen. (7) Depression: chronic, stable. Cont Prozac per home regimen. (8) Psoriasis: steroid cream BID x 2 weeks. Extensor plaques are improving on exam. (9) DVT prophylaxis: Lovenox DNR/DNI Dipso-Uncertain at this time. Pt continues to remain hypoxic but is overall improved since admission. Patient will need at least 2 more weeks of antibiotics in the setting of necrotizing pneumonia. Kenya Cagle DO [facility] Hospitalist Admission and Anticipated Discharge Date Admission Date: May 22, 2020 Subjective 55 yo M with acute respiratory failure -peripheral neuropathy pain manageable with current therapy but is painful -breathing slightly improved but has spells of feeling intermittent severe SOB that persist today -this appears to be a new development and he is continually hypoxemic and has been severely so for the past 4+weeks in the hospital. -tolerating PO Review of Systems Review of Systems: All systems reviewed & are unremarkable except as noted in Subjective Physical Exam Physical Exam: CONSTITUTIONAL: vitals as above, generally thin, inmate in restraints. EYES: normal conjunctivae, no scleral icterus ENT: external ear and nose normal, MMM RESPIRATORY: crackles on right side are improved today from yesterday, good air movement on the left side, no increased work of breathing. CARDIOVASCULAR: regular rate and rhythm, S1 and 2 heard without murmurs, gallops or rubs, no JVD, no peripheral edema GASTROINTESTINAL: soft, nontender, nondistended, no guarding MUSCULOSKELETAL: generalized weakness, head is normocephalic and atraumatic SKIN: warm and dry NEUROLOGIC: CN 2-12 grossly intact, normal cognition, normal speech, no gross focal deficits. PSYCHIATRIC: alert cooperative and answering questions appropriately. Results & Data Results & Data ([facility]) Vital Signs (Past 12 Hours) Vital Signs Temp Pulse Resp BP BP Pulse Ox 06/29/20 14:36 36.7 C 74 18 148/76 H 123/80 96 06/29/20 12:03 36.7 C 74 18 123/80 96 06/29/20 06:57 36.8 C 103 H 20 151/79 H 94 06/29/20 05:01 36.7 C 80 148/76 H 95 Laboratory Results Short CBC 06/29/20 Range/Units 06:26 WBC 8.11 (4.8-10.8) K/uL Hgb 9.3 L (14.0-18.0) g/dL Hct 29.5 L (42-52) % Plt Count 615 H (130-400) K/uL BMP 06/29/20 06:26 Sodium 138 Potassium 3.9 Chloride 106 Carbon Dioxide 28 BUN 28 H Creatinine 2.15 H Glucose 50 L* Calcium 7.7 L Medications Administered Current Inpatient Medications Acetaminophen (Acetaminophen 500 Mg Tab) 1,000 mg PO Q8H MARY Stop: 07/15/20 17:29 Last Admin: 06/29/20 08:24 Dose: 1,000 mg Documented by: Ascorbic Acid (Ascorbic Acid 500 Mg Tab) 500 mg PO BID MARY Stop: 07/12/20 20:59 Last Admin: 06/29/20 08:24 Dose: 500 mg Documented by: Betamethasone Valerate (Betamethasone Suzanne 0.1% Cr 15 Gm) 1 appln EXT BID MARY Stop: 07/28/20 15:59 Last Admin: 06/29/20 08:24 Dose: 1 appln Documented by: Dextrose (Dextrose 50% 50 Ml Syringe) 25 - 50 ml IV UD PRN; Protocol PRN Reason: Hypoglycemia Protocol Stop: 07/22/20 20:59 Enoxaparin Sodium (Enoxaparin Inj 40 Mg/0.4 Ml Syr) 40 mg SQ QAM MARY Stop: 07/25/20 08:59 Last Admin: 06/29/20 08:23 Dose: 40 mg Documented by: Fludrocortisone Acetate (Fludrocortisone Acetate 0.1 Mg Tab) 0.3 mg PO QAM MARY Stop: 07/03/20 08:59 Last Admin: 06/29/20 08:24 Dose: 0.3 mg Documented by: Gabapentin (Gabapentin 300 Mg Cap) 300 mg PO TID MARY Stop: 07/11/20 08:59 Last Admin: 06/29/20 14:31 Dose: 300 mg Documented by: Glucagon (Glucagon For Inj 1 Mg Vial) 1 mg IM UD PRN; Protocol PRN Reason: Hypoglycemia Protocol Stop: 07/22/20 20:59 Glucose (Glucose 40% Gel 15 Gm Tube) 15 - 30 gm PO UD PRN; Protocol PRN Reason: Hypoglycemia Protocol Stop: 07/22/20 20:59 Glucose (Glucose 10 Tabs/Tube) 4 - 8 tabs PO UD PRN; Protocol PRN Reason: Hypoglycemia Protocol Stop: 07/22/20 20:59 Heparin Sodium (Beef Lung) (Heparin 10 Unit/Ml 5 Ml Flush) 5 ml FLUSH PRN PRN PRN Reason: Flush Stop: 07/03/20 22:44 Furosemide 40 mg/ Syringe 4 mls @ 4 mls/min IV DAILY MARY Stop: 07/15/20 17:29 Last Admin: 06/29/20 08:23 Dose: 4 mls/min Documented by: Lorazepam (Ativan) 0.25 mg in 0.5 mls @ 0.5 mls/min IV Q6H PRN PRN Reason: Anxiety/Agitation Stop: 07/21/20 08:58 Last Admin: 06/24/20 02:13 Dose: 0.5 mls/min Documented by: Ampicillin Sodium/Sulbactam Sodium 3,000 mg/ Sodium Chloride 108 mls @ 200 mls/hr IV Q6H MARY; Protocol Stop: 06/30/20 20:59 Last Infusion: 06/29/20 15:30 Dose: Infused Documented by: Insulin Aspart (Insulin Aspart 100 Units/Ml 3 Ml Pen) 0 units SC [facility]; Protocol Stop: 07/25/20 07:29 Last Admin: 06/29/20 11:45 Dose: Not Given Documented by: Insulin Glargine (Insulin Glargine Solostar 100 Units/Ml 3 Ml Pen) 7 [facility]; Protocol Stop: 07/29/20 08:59 Last Admin: 06/29/20 08:25 Dose: 7 units Documented by: Insulin Glargine (Insulin Glargine Solostar 100 Units/Ml 3 Ml Pen) 4 units SC [facility]; Protocol Stop: 07/29/20 20:59 Miscellaneous (Carbohydrates For Hypoglycemia ) 15 - 30 gm PO UD PRN PRN Reason: Hypoglycemia Treatment Stop: 07/22/20 20:59 Last Admin: 06/29/20 08:41 Dose: 15 gm Documented by: Miscellaneous Information (Pharmacy Glycemic Mgmt Consult) 1 ea N/A UD PRN PRN Reason: Consult Stop: 07/24/20 07:33 Multivitamins (Multivitamin Tab) 1 tab PO QAM [facility] Stop: 07/03/20 08:59 Last Admin: 06/29/20 08:24 Dose: 1 tab Documented by: Ondansetron HCl (Ondansetron Inj 2 Mg/Ml 2 Ml Vial) 4 mg IV Q8H PRN PRN Reason: nausea or vomiting Stop: 07/25/20 14:14 Last Admin: 06/28/20 17:22 Dose: 4 mg Documented by: Oxycodone HCl (Oxycodone Hcl Ir 5 Mg Tab (Immediate Release)) 5 mg PO Q6H PRN PRN Reason: Pain Stop: 07/10/20 14:32 Last Admin: 06/29/20 15:51 Dose: 5 mg Documented by: Phenol (Chloraseptic 1.4% Soln 180 Ml Btl) 2 sprays MT Q4H PRN PRN Reason: sore thorat Stop: 07/28/20 14:45 Last Admin: 06/28/20 15:19 Dose: 2 sprays Documented by: Polyethylene Glycol (Polyethylene (Miralax) 17 Gm Pack) 17 gm PO Q6H PRN PRN Reason: Constipation Stop: 07/13/20 18:55 Last Admin: 06/19/20 15:59 Dose: 17 gm Documented by: Potassium Chloride (Potassium Chloride Crtab 20 Meq Tabcr) 20 meq PO BID [facility] Stop: 07/08/20 10:29 Last Admin: 06/29/20 08:24 Dose: 20 meq Documented by: Senna/Docusate Sodium (Docusate Sodium/Senna 50/8.6mg Tab) 1 tab PO QAM [facility] Stop: 07/14/20 08:59 Last Admin: 06/29/20 08:24 Dose: 1 tab Documented by: Vitamin D (Cholecalciferol 1,000 Units 25 Mcg Tab) 1,000 units PO QAM [facility] Stop: 07/12/20 18:29 Last Admin: 06/29/20 08:24 Dose: 1,000 units Documented by: Zinc Sulfate (Zinc Sulfate 220 Mg Capsule) 220 mg PO QAM [facility] Stop: 07/12/20 18:29 Last Admin: 06/29/20 08:24 Dose: 220 mg Documented by: (1) CKD (chronic kidney disease), stage III Chronic kidney disease stage 3 subtype: stage 3b (GFR 30-44) Qualified Code(s): N18.32 - Chronic kidney disease, stage 3b
[2020-06-29] MEDS: ONDANSETRON INJ 2 MG/ML 2 ML VIAL IV PRN (17:51)
--- NOTE | 2020-06-29 20:07 | Nephrology Progress Note ---
Date of Service June 29, 2020 Assessment & Plan (1) CKD (chronic kidney disease), stage III: Per hospitalist on paperwork from admission, baseline creatinine 2.3 in 12/2019. No OP/prior to admission creatinine documented. Pt presented with creatinine 2.5 on 05/22; then since 05/27 in mid to low 3s. peaked at 4.5 on 06/02; creat under 3 since 06/10; today low 2's,at baseline. uacm w/ 3+ dipstick protein, 1+ blood, consistent with even 2018 sediment; no infection or other inflammation. pt is open to dialysis if need arises; though he is doing better from renal standpoint than earlier this month -no longer on FR and none indicated -daily to q48 hr bmp -cont lasix 40 mg IV daily >will resume OP lisinopril 2.5 mg daily -will follow peripherally now that renal function back to baseline >>VENEER GLUER was on gabapentin 600 mg qid; so we lowered significantly mid Nov d/t XOCHITL; now back up to 300 mg tid and tolerating; do not believe this medication would help pleuritic chest pain which he again c/o to me today but could consider resuming OP dose when/if appropriate (2) Orthostatic hypotension: with labile BP reported VENEER GLUER on standing /[facility] fludrocortisone prior to admission. s/p course of dexamethasone; also on OP fludro dose currently -ensure cont fludrocortisone at d/c -resume lisinopril BP w/ stable elevation since he is essentially bedbound (3) COVID-19: on high flow 02 for a few weeks now and still dependent; w/ near intubation / code purple for hypoxia 06/01 AM; ICU status downgraded 06/03; recurrent hypoxemic episodes corrected with self-proning >> he has been on 6L or more 02 continuously since 05/28; currently on 11L/min on oxymask -per primary and pulm (4) Anemia: for pRBC today and to get extra lasix w/ transfusion Admission and Anticipated Discharge Date Admission Date: May 22, 2020 Subjective seen on rounds at approx 1030; pt c/o BL foot pain; did stand today but desats w/ standing or taking po; not feeling jennifer sob Review of Systems Review of Systems: All systems reviewed & are unremarkable except as noted in HPI & below Physical Exam Constitutional: well developed, well nourished and + thin; no acute distress Eyes: EOM intact bilaterally ENMT: Ears: no external ear abnormality Nose: no external nose abnormality Mouth: + dry oral mucous membranes Neck: no nuchal rigidity Respiratory: normal respiratory effort (on high flow 02; desats not ) Auscultation: lungs clear to auscultation bilaterally and + diminished lung sounds Cardiovascular: RRR, no murmur, no edema Rate/Rhythm: regular rate and regular rhythm Gastrointestinal (Abdomen): Inspection/Auscultation: abdomen normal to inspection and normal bowel sounds Percussion/Palpation: abdomen soft; abdomen nontender Musculoskeletal: Extremities: strength 5/5 throughout Skin: no rashes, warm and dry Psychiatric: A+Ox3, euthymic affect Orientation: alert and oriented x 3 Eye Contact: good eye contact Affect: + anxious affect and + flat affect Results & Data ([facility]) Vital Signs (Past 12 Hours) Vital Signs Temp Pulse Resp BP BP Pulse Ox 06/29/20 19:08 36.6 C 77 20 180/90 H 96 06/29/20 16:00 36.4 C L 79 18 165/87 H 97 06/29/20 14:36 36.7 C 74 18 148/76 H 123/80 96 06/29/20 12:03 36.7 C 74 18 123/80 96 Laboratory Results 06/29/20 06:26 06/29/20 06:26 (1) CKD (chronic kidney disease), stage III Chronic kidney disease stage 3 subtype: stage 3b (GFR 30-44) Qualified Code(s): N18.32 - Chronic kidney disease, stage 3b (2) Anemia Anemia type: iron deficiency Iron deficiency anemia type: unspecified iron deficiency Qualified Code(s): D50.9 - Iron deficiency anemia, unspecified
[2020-06-29] MEDS ORDERED: INSULIN GLARGINE SOLOSTAR 100 UNITS/ML 3 ML PEN SC SCH (21:00)
[2020-06-30] MEDS: ACETAMINOPHEN 500 MG TAB PO SCH ×3 (02:00→17:46)
[2020-06-30] MEDS: AMPICILLIN/SULBACTAM SOD 3,000 MG in 0.9 % SODIUM CHLORIDE 100 ML IV SCH ×3 (02:00→14:21)
[2020-06-30] MEDS: oxyCODONE HCL IR 5 MG TAB (IMMEDIATE RELEASE) PO PRN ×2 (02:01→12:08)
[2020-06-30] MEDS: lisinopril 2.5 MG TAB PO SCH (08:32)
[2020-06-30] MEDS: ASCORBIC ACID 500 MG TAB PO SCH ×2 (08:32→21:28)
[2020-06-30] MEDS: FUROSEMIDE 40 MG in SYRINGE 0 ML IV SCH (08:32)
[2020-06-30] MEDS: DOCUSATE SODIUM/SENNA 50/8.6MG TAB PO SCH (08:32)
[2020-06-30] MEDS: CHOLECALCIFEROL 1,000 UNITS 25 MCG TAB PO SCH (08:32)
[2020-06-30] MEDS: ZINC SULFATE 220 MG CAPSULE PO SCH (08:33)
[2020-06-30] MEDS: MULTIVITAMIN TAB PO SCH (08:33)
[2020-06-30] MEDS: POTASSIUM CHLORIDE CRTAB 20 MEQ TABCR PO SCH ×2 (08:33→21:25)
[2020-06-30] MEDS: ENOXAPARIN INJ 40 MG/0.4 ML SYR SQ SCH (08:33)
[2020-06-30] MEDS: INSULIN GLARGINE SOLOSTAR 100 UNITS/ML 3 ML PEN SC SCH ×2 (08:33→21:40)
[2020-06-30] MEDS: FLUDROCORTISONE ACETATE 0.1 MG TAB PO SCH (08:33)
[2020-06-30] MEDS: GABAPENTIN 300 MG CAP PO SCH ×3 (08:33→21:26)
[2020-06-30] MEDS: INSULIN ASPART 100 UNITS/ML 3 ML PEN SC SCH ×4 (08:34→21:40)
[2020-06-30] MEDS: BETAMETHASONE VAL 0.1% CR 15 GM EXT SCH ×2 (08:35→21:27)
[2020-06-30] MEDS: ONDANSETRON INJ 2 MG/ML 2 ML VIAL IV PRN (10:09)
--- NOTE | 2020-06-30 11:16 | Hospitalist Progress Note ---
Date of Service June 30, 2020 Assessment & Plan (1) Acute respiratory failure with hypoxia: Acute respiratory distress syndrome with severe hypoxic respiratory failure on admission secondary to COVID-19 infection Received one unit of conv plasma on 05/27. Steroids x 3 weeks have been tapered off. Was not a candidate for remdesivir 2/2 renal failure. Continues on significant oxygen supplementation. CT of the chest without contrast on 06/23 revealed multifocal airspace consolidation with necrotizing/cavitary pneumonia in the ERASMO, and fluid in the distal esophagus. Unasyn started in response to new findings, vancomycin discontinued with negative MRSA screen. Procalcitonin is trending down. Repeat chest x-ray on 06/25 in response to increase shortness of breath per patient reveals increased pulmonary edema. Improved with intermittent Lasix-kidney function improved HIV screening is negative. Results were discussed with patient verbalized understanding. Cont to wean oxygen as tolerated. 12-6 with increase in crackles on exam will give additional Lasix this evening. May consider repeat CT imaging in am in light of reports of severe breathing issues. 12-7 patient continues to report intermittent episodes 10 minutes ++ where he feels severely SOB and then it resolves to his current baseline. This occurs multiple times a day and gives him the impression he is worsening. I considered a repeat CT chest with contrast to look for complications of pneumonia or PE of which he is high risk for both. In light of CKD, however, would like to get pulmonary opinion of this first and also obtain echo in am prior to ordering this. 12-8: with persistent SOB episodes reported and very concerning to patient in the setting of a severe course of respiratory covid viral illness already complicated by necrotizing pneumonia possibly secondary to aspiration, will repeat CT. The patient is still eating and is still high risk for aspiration. Although on Unasyn, clinical picture may be worse. DDx may include an abscess or other complication of pneumonia Will time it with contrast for PE study to also ensure no PE present despite patient being on DVT prophylaxis. (2) Pneumonia due to COVID-19 virus: He completed a robust antibiotic course while admitted. (Doxycycline 100mg BID 5 dys, stopped for 2, resumed 05/30 for 7 full days, Ceftriaxone x 14 days, Cefepime for an additional 3 days after the ceftriaxone completed, and Flagyl for 8 days.) Now with bacterial superinfection likely secondary to aspiration with gram-negative and anaerobic coverage. Cont care plan as outlined above with supportive care measures. Patient will need at least 2 weeks total of antibiotics in the setting of necrotizing pneumonia. (3) Diabetes mellitus type I: brittle diabetic with difficult to control glucose. Glycemic pharmacist managing and has his on basal bolus SQ insulin at this point. Controlled for now. (4) CKD (chronic kidney disease), stage III: Resolved to baseline renal function. Patient has Stage 3 CKD. With contrast administration being given, have encouraged him to hydrate well and will hold am lasix dose. (5) Diabetic neuropathy: Persistent. Home dose gabapentin was 600mg PO QID decreased to 300mg PO BID because of renal insufficiency. Cont with gabapentin 300mg PO TID dosing for now with current renal function. Cont Tylenol and PRN oxy for discomfort. He is starting to become more comfortable. May need to consider a different option than oxycodone for marriage and family therapist management if not offered by the group home going home but for now would just get him through this respiratory illness. (6) Hypothyroidism: chronic, stable, Continue levothyroxine per home regimen. (7) Depression: chronic, stable. Cont Prozac per home regimen. (8) Psoriasis: steroid cream BID x 2 weeks. Extensor plaques are improving on exam. (9) DVT prophylaxis: Lovenox DNR/DNI Dipso-Uncertain at this time. Pt continues to remain hypoxic but is overall improved since admission. Patient will need at least 1 more week of antibiotics in the setting of necrotizing pneumonia. Will repeat CT scan of the chest in am with contrast to ensure no worsening picture with persistent severe hypoxia and worsening SOB episodes per patient. Kenya Cagle DO [facility] Hospitalist Admission and Anticipated Discharge Date Admission Date: May 22, 2020 Subjective 55 yo M with acute respiratory failure -peripheral neuropathy pain manageable with current therapy but is painful -breathing slightly improved but still reporting spells of severe SOB that persist today -echo reviewed with patient. -tolerating PO Review of Systems Review of Systems: All systems reviewed & are unremarkable except as noted in Subjective Physical Exam Physical Exam: CONSTITUTIONAL: vitals as above, generally thin, inmate in restraints. EYES: normal conjunctivae, no scleral icterus ENT: external ear and nose normal, MMM RESPIRATORY: crackles on right side and left now, no rales or wheezes, no increased work of breathing. CARDIOVASCULAR: regular rate and rhythm, S1 and 2 heard without murmurs, gallops or rubs, no JVD, no peripheral edema GASTROINTESTINAL: soft, nontender, nondistended, no guarding MUSCULOSKELETAL: generalized weakness, head is normocephalic and atraumatic SKIN: warm and dry NEUROLOGIC: CN 2-12 grossly intact, normal cognition, normal speech, no gross focal deficits. PSYCHIATRIC: alert cooperative and answering questions appropriately. Results & Data Results & Data ([facility]) Vital Signs (Past 12 Hours) Vital Signs Temp Pulse Pulse Resp BP BP Pulse Ox 06/30/20 07:21 36.7 C 79 18 131/73 92 06/30/20 04:00 37.2 C 85 20 138/75 93 06/30/20 00:00 83 06/29/20 23:48 36.5 C 84 20 163/84 H 94 Medications Administered Current Inpatient Medications Acetaminophen (Acetaminophen 500 Mg Tab) 1,000 mg PO Q8H MARY Stop: 07/15/20 17:29 Last Admin: 06/30/20 08:32 Dose: 1,000 mg Documented by: Ascorbic Acid (Ascorbic Acid 500 Mg Tab) 500 mg PO BID MARY Stop: 07/12/20 20:59 Last Admin: 06/30/20 08:32 Dose: 500 mg Documented by: Betamethasone Valerate (Betamethasone Suzanne 0.1% Cr 15 Gm) 1 appln EXT BID MARY Stop: 07/28/20 15:59 Last Admin: 06/30/20 08:35 Dose: Not Given Documented by: Dextrose (Dextrose 50% 50 Ml Syringe) 25 - 50 ml IV UD PRN; Protocol PRN Reason: Hypoglycemia Protocol Stop: 07/22/20 20:59 Enoxaparin Sodium (Enoxaparin Inj 40 Mg/0.4 Ml Syr) 40 mg SQ QAM MARY Stop: 07/25/20 08:59 Last Admin: 06/30/20 08:33 Dose: 40 mg Documented by: Fludrocortisone Acetate (Fludrocortisone Acetate 0.1 Mg Tab) 0.3 mg PO QAM MARY Stop: 07/03/20 08:59 Last Admin: 06/30/20 08:33 Dose: 0.3 mg Documented by: Gabapentin (Gabapentin 300 Mg Cap) 300 mg PO TID MARY Stop: 07/11/20 08:59 Last Admin: 06/30/20 08:33 Dose: 300 mg Documented by: Glucagon (Glucagon For Inj 1 Mg Vial) 1 mg IM UD PRN; Protocol PRN Reason: Hypoglycemia Protocol Stop: 07/22/20 20:59 Glucose (Glucose 40% Gel 15 Gm Tube) 15 - 30 gm PO UD PRN; Protocol PRN Reason: Hypoglycemia Protocol Stop: 07/22/20 20:59 Glucose (Glucose 10 Tabs/Tube) 4 - 8 tabs PO UD PRN; Protocol PRN Reason: Hypoglycemia Protocol Stop: 07/22/20 20:59 Heparin Sodium (Beef Lung) (Heparin 10 Unit/Ml 5 Ml Flush) 5 ml FLUSH PRN PRN PRN Reason: Flush Stop: 07/03/20 22:44 Furosemide 40 mg/ Syringe 4 mls @ 4 mls/min IV DAILY MARY Stop: 07/15/20 17:29 Last Admin: 06/30/20 08:32 Dose: 4 mls/min Documented by: Lorazepam (Ativan) 0.25 mg in 0.5 mls @ 0.5 mls/min IV Q6H PRN PRN Reason: Anxiety/Agitation Stop: 07/21/20 08:58 Last Admin: 06/24/20 02:13 Dose: 0.5 mls/min Documented by: Ampicillin Sodium/Sulbactam Sodium 3,000 mg/ Sodium Chloride 108 mls @ 200 mls/hr IV Q6H MARY; Protocol Stop: 06/30/20 20:59 Last Infusion: 06/30/20 09:20 Dose: Infused Documented by: Insulin Aspart (Insulin Aspart 100 Units/Ml 3 Ml Pen) 0 units SC [facility]; Protocol Stop: 07/25/20 07:29 Last Admin: 06/30/20 08:34 Dose: 5 units Documented by: Insulin Glargine (Insulin Glargine Solostar 100 Units/Ml 3 Ml Pen) [facility]; Protocol Stop: 07/29/20 08:59 Last Admin: 06/30/20 08:33 Dose: 7 units Documented by: Insulin Glargine (Insulin Glargine Solostar 100 Units/Ml 3 Ml Pen) 4 units SC [facility]; Protocol Stop: 07/29/20 20:59 Last Admin: 06/29/20 20:48 Dose: 4 units Documented by: Lisinopril (Lisinopril 2.5 Mg Tab) 2.5 mg PO QAM [facility] Stop: 07/30/20 08:59 Last Admin: 06/30/20 08:32 Dose: 2.5 mg Documented by: Miscellaneous (Carbohydrates For Hypoglycemia ) 15 - 30 gm PO UD PRN PRN Reason: Hypoglycemia Treatment Stop: 07/22/20 20:59 Last Admin: 06/29/20 08:41 Dose: 15 gm Documented by: Miscellaneous Information (Pharmacy Glycemic Mgmt Consult) 1 ea N/A UD PRN PRN Reason: Consult Stop: 07/24/20 07:33 Multivitamins (Multivitamin Tab) 1 tab PO QAM [facility] Stop: 07/03/20 08:59 Last Admin: 06/30/20 08:33 Dose: 1 tab Documented by: Ondansetron HCl (Ondansetron Inj 2 Mg/Ml 2 Ml Vial) 4 mg IV Q8H PRN PRN Reason: nausea or vomiting Stop: 07/25/20 14:14 Last Admin: 06/30/20 10:09 Dose: 4 mg Documented by: Oxycodone HCl (Oxycodone Hcl Ir 5 Mg Tab (Immediate Release)) 5 mg PO Q6H PRN PRN Reason: Pain Stop: 07/10/20 14:32 Last Admin: 06/30/20 02:01 Dose: 5 mg Documented by: Phenol (Chloraseptic 1.4% Soln 180 Ml Btl) 2 sprays MT Q4H PRN PRN Reason: sore thorat Stop: 07/28/20 14:45 Last Admin: 06/28/20 15:19 Dose: 2 sprays Documented by: Polyethylene Glycol (Polyethylene (Miralax) 17 Gm Pack) 17 gm PO Q6H PRN PRN Reason: Constipation Stop: 07/13/20 18:55 Last Admin: 06/19/20 15:59 Dose: 17 gm Documented by: Potassium Chloride (Potassium Chloride Crtab 20 Meq Tabcr) 20 meq PO BID [facility] Stop: 07/08/20 10:29 Last Admin: 06/30/20 08:33 Dose: 20 meq Documented by: Senna/Docusate Sodium (Docusate Sodium/Senna 50/8.6mg Tab) 1 tab PO QAM [facility] Stop: 07/14/20 08:59 Last Admin: 06/30/20 08:32 Dose: 1 tab Documented by: Vitamin D (Cholecalciferol 1,000 Units 25 Mcg Tab) 1,000 units PO [facility] Stop: 07/12/20 18:29 Last Admin: 06/30/20 08:32 Dose: 1,000 units Documented by: Zinc Sulfate (Zinc Sulfate 220 Mg Capsule) 220 mg PO [facility] Stop: 07/12/20 18:29 Last Admin: 06/30/20 08:33 Dose: 220 mg Documented by: (1) CKD (chronic kidney disease), stage III Chronic kidney disease stage 3 subtype: stage 3b (GFR 30-44) Qualified Code(s): N18.32 - Chronic kidney disease, stage 3b
[2020-06-30] MEDS: CARBOHYDRATES FOR HYPOGLYCEMIA PO PRN ×2 (16:52→17:05)
[2020-07-01] MEDS: ACETAMINOPHEN 500 MG TAB PO SCH ×3 (00:08→17:06)
[2020-07-01] MEDS: oxyCODONE HCL IR 5 MG TAB (IMMEDIATE RELEASE) PO PRN (00:08)
[2020-07-01] MEDS: AMPICILLIN/SULBACTAM SOD 3,000 MG in 0.9 % SODIUM CHLORIDE 100 ML IV SCH ×3 (06:35→19:32)
[2020-07-01] MEDS: INSULIN ASPART 100 UNITS/ML 3 ML PEN SC SCH ×4 (08:01→20:55)
[2020-07-01] MEDS: INSULIN GLARGINE SOLOSTAR 100 UNITS/ML 3 ML PEN SC SCH ×2 (08:01→20:55)
[2020-07-01] MEDS: DOCUSATE SODIUM/SENNA 50/8.6MG TAB PO SCH (08:07)
[2020-07-01] MEDS: POTASSIUM CHLORIDE CRTAB 20 MEQ TABCR PO SCH ×2 (08:07→20:43)
[2020-07-01] MEDS: ASCORBIC ACID 500 MG TAB PO SCH (08:08)
[2020-07-01] MEDS: BETAMETHASONE VAL 0.1% CR 15 GM EXT SCH ×2 (08:08→20:44)
[2020-07-01] MEDS: CHOLECALCIFEROL 1,000 UNITS 25 MCG TAB PO SCH (08:08)
[2020-07-01] MEDS: GABAPENTIN 300 MG CAP PO SCH ×3 (08:08→20:43)
[2020-07-01] MEDS: FLUDROCORTISONE ACETATE 0.1 MG TAB PO SCH (08:08)
[2020-07-01] MEDS: ZINC SULFATE 220 MG CAPSULE PO SCH (08:08)
[2020-07-01] MEDS: ENOXAPARIN INJ 40 MG/0.4 ML SYR SQ SCH (08:08)
[2020-07-01] MEDS: MULTIVITAMIN TAB PO SCH (08:08)
[2020-07-01] MEDS: lisinopril 2.5 MG TAB PO SCH (08:08)
[2020-07-01] MEDS: ONDANSETRON INJ 2 MG/ML 2 ML VIAL IV PRN ×2 (08:53→17:21)
[2020-07-01] MEDS ORDERED: OPTIRAY 320 125ml IV ONE (09:02)
--- NOTE | 2020-07-01 09:04 | Nephrology Progress Note ---
Date of Service July 01, 2020 Assessment & Plan (1) CKD (chronic kidney disease), stage III: Per hospitalist on paperwork from admission, baseline creatinine 2.3 in 12/2019. No OP/prior to admission creatinine documented. Pt presented with creatinine 2.5 on 05/22; then since 05/27 in mid to low 3s. peaked at 4.5 on 06/02; creat under 3 since 06/10; at last labs on 06/29 in low 2's, at baseline. uacm w/ 3+ dipstick protein, 1+ blood, consistent with even 2018 sediment; no infection or other inflammation. pt is open to dialysis if need arises; though he is doing better from renal standpoint than earlier this month -no longer on FR and none indicated -will order labs for am -lasix 40 mg IV daily appropriately held today and likely tomorrow until labs assessed d/t IV dye load >wrote to hold low dose ACEI as well >>given IV contrast planned today, will give 500 mL NS 75 mL hourly after study as well to lower XOCHITL risk withplan to stop if worsening respiratory status >>SHINGLE TRIMMER was on gabapentin 600 mg qid; so we lowered significantly mid Nov d/t XOCHITL; now back up to 300 mg tid and tolerating; do not believe this medication would help pleuritic chest pain which he again c/o to me today but could consider resuming OP dose when/if appropriate (2) Orthostatic hypotension: with labile BP reported SHINGLE TRIMMER on standing /[facility] fludrocortisone prior to admission. s/p course of dexamethasone; also on OP fludro dose currently -ensure cont fludrocortisone at d/c -resume lisinopril when clinically approp BP w/ stable elevation since he is essentially bedbound (3) COVID-19: on high flow 02 for a few weeks now and still dependent; w/ near intubation / code purple for hypoxia 06/01 AM; ICU status downgraded 06/03; recurrent hypoxemic episodes corrected with self-proning >> he has been on 6L or more 02 continuously since 05/28; currently on 15L/min on oxymask -per primary and pulm -f/u CT results >> remarkable for increaseing BL pl effusions and ERASMO abscess >> fluids after study 500 ML; recheck labs in am and plan to resume lasix (4) Anemia: has had pRBC this admission on 06/22 >> t stn same day 6% -recheck cbc in am -start venofer load w/ 2 x 200 mg daily doses; will need further dosing therefter Admission and Anticipated Discharge Date Admission Date: May 22, [address] chest PE protocol for this aM and lasix on hold. seen on rounds on noon hour; still desats w/ standing or taking minimal po; no change in breathing and tolerating fluids so far Review of Systems Review of Systems: All systems reviewed & are unremarkable except as noted in HPI & below Physical Exam Constitutional: well developed, well nourished and + thin; no acute distress Eyes: EOM intact bilaterally ENMT: Ears: no external ear abnormality Nose: no external nose abnormality Mouth: + dry oral mucous membranes Neck: no nuchal rigidity Respiratory: normal respiratory effort (on high flow 02; desats not ) and able to speak in complete sentences; no labored breathing Auscultation: + diminished lung sounds and + crackles (diffusely through posterior case) Cardiovascular: RRR, no murmur, no edema Rate/Rhythm: regular rate and regular rhythm Gastrointestinal (Abdomen): Inspection/Auscultation: abdomen normal to inspection and normal bowel sounds Percussion/Palpation: abdomen soft; abdomen nontender Musculoskeletal: Extremities: strength 5/5 throughout Skin: no rashes, warm and dry Neurologic: gutierrez, fluen tspeech, no tremor Psychiatric: A+Ox3, euthymic affect Orientation: alert and oriented x 3 Eye Contact: good eye contact Affect: + anxious affect and + flat affect Genitourinary: [email or web address] Results & Data ([facility]) Vital Signs (Past 12 Hours) Vital Signs Temp Pulse Pulse Resp BP BP Pulse Ox 07/01/20 07:17 37.0 C 89 18 158/82 H 90 07/01/20 07:10 77 07/01/20 03:56 36.5 C 88 22 158/87 H 98 07/01/20 00:00 81 06/30/20 23:25 36.5 C 86 20 158/87 H 94 Laboratory Results no new labs Diagnostic Findings CT angio today there are mildly enlarged mediastinal lymph nodes. An index prevascular node measures 13 mm in short axis. There is a precarinal lymph node measures 11 mm in short axis. There was no evidence of thoracic aortic dilatation. There were no pulmonary artery filling defects to indicate acute pulmonary embolism. There is pulmonary artery enlargement suggesting pulmonary arterial hypertension There are bilateral pleural effusions left greater than right. These have in creased when compared the prior study There are progressive extensive bilateral pulmonary airspace opacities. There is cavitation of a a left upper lobe airspace opacity with a 4 cm air-fluid collection. This is suggestive of a pulmonary abscess. There is underlying pulmonary edema. There is debris filled esophagus. There is a small hiatal hernia IMPRESSION: 1. No evidence of acute pulmonary embolism 2. Increasing bilateral pleural effusions 3. Progressive extensive multifocal pulmonary airspace opacities. 4. Progressive cavitation within the left upper lobe with a 4 cm air-fluid collection. This is consistent with a necrotizing cavitary pneumonia/abscess 5. Mild mediastinal lymphadenopathy (1) CKD (chronic kidney disease), stage III Chronic kidney disease stage 3 subtype: stage 3b (GFR 30-44) Qualified Code(s): N18.32 - Chronic kidney disease, stage 3b (2) Anemia Anemia type: iron deficiency Iron deficiency anemia type: unspecified iron deficiency Qualified Code(s): D50.9 - Iron deficiency anemia, unspecified
--- NOTE | 2020-07-01 09:22 | CT Scan Report ---
CT ANGIOGRAM OF THE CHEST CLINICAL HISTORY: Shortness of breath. POSSIBLE PULMONARY EMBOLISM COMPARISON STUDY: 06/23/2020 TECHNIQUE: Following the IV administration of 94 mL of [id number]-320, CT angiogram of the thorax was pe rformed from the thoracic inlet to the lung bases utilizing the pulmonary embolus protocol. Images ar e reviewed in the axial, sagittal, and coronal planes. IV contrast was administered without complicat ion. MIP imaging was performed. A dose lowering technique was utilized adhering to the principles of ALARA. CT DOSE: 610.22 mGy.cm FINDINGS: There are mildly enlarged mediastinal lymph nodes. An index prevascular node measures 13 mm in short axis. There is a precarinal lymph node measures 11 mm in short axis. There was no evidence of thoracic aortic dilatation. There were no pulmonary artery filling defects to indicate acute pulmonary embolism. There is pulmona ry artery enlargement suggesting pulmonary arterial hypertension There are bilateral pleural effusions left greater than right. These have increased when compared the prior study There are progressive extensive bilateral pulmonary airspace opacities. There is cavitation of a a le ft upper lobe airspace opacity with a 4 cm air-fluid collection. This is suggestive of a pulmonary ab scess. There is underlying pulmonary edema. There is debris filled esophagus. There is a small hiatal hernia IMPRESSION: 1. No evidence of acute pulmonary embolism 2. Increasing bilateral pleural effusions 3. Progressive extensive multifocal pulmonary airspace opacities. 4. Progressive cavitation within the left upper lobe with a 4 cm air-fluid collection. This is consis tent with a necrotizing cavitary pneumonia/abscess 5. Mild mediastinal lymphadenopathy ACT 112: Negative or not required by law. Electronically signed by: Jason Ram M.D. 07/01/2020 9:21 AM
[2020-07-01] MEDS ORDERED: SODIUM CHLORIDE 0.9% 500 ML IV SCH (09:30)
[2020-07-01] MEDS: IRON SUCROSE 200 MG in 0.9 % SODIUM CHLORIDE 100 ML IV SCH (10:44)
--- NOTE | 2020-07-01 12:22 | Pulmonology Progress Note ---
Date of Service July 01, 2020 Assessment & Plan (1) Necrotizing pneumonia: Impression: 55-year-old male with Covid pneumonia and now appears to have a secondary lung abscess/pneumonia with fluid overload perpetuating his hypoxemic respiratory failure. Recommendations: 1. Recommend continued aggressive diuresis. Nephrology is following. His kidney function appears to have returned back to baseline. He is on 40 of IV Lasix daily. I recommend that this be increased to try and get the patient -1 to 2 L every 24 hours as tolerated by kidney function. 2. Hypoxemic respiratory failure: Suspect that this is multifactorial due to combinations of pulmonary fibrosis to the patient's recent viral pneumonia, fluid overload given the bilateral pleural effusions, and potential new infe ction given the lung abscess and elevated procalcitonin. See comments below. Wean oxygen as tolerated. 3. Bilateral pleural effusions: Would not recommend thoracentesis at this point time if the patient can tolerate diuresis. If kidney function becomes problematic to the point that we cannot diurese the patient without impending dialysis, could consider thoracentesis at that point time. 4. Lung abscess: The patient is being followed by infectious disease at [facility]. Typically these abscesses require a prolonged course of antimicrobial therapy often 3 to 6 weeks. Will defer to infectious disease choice of antimicrobial agents and duration of therapy. He should have follow- up imaging at completion of antimicrobial therapy to evaluate the cavity. Encouragingly, his procalcitonin and white blood cell count are normalizing. Would not recommend IV iron in the setting of a potential active infection. No indication for bronchoscopy currently as it would be unlikely to change man agement. 5. Florinef can be stopped at this point time. I think there is little utility in zinc and vitamin C as well so these will also be discontinued. If the patient's infection can be adequately addressed and treated and he can be diuresed, I suspect that his oxygen requirement will decrease over time. We will continue to follow peripherally as needed. Please call if we can be of additional assistance (2) Lung abscess: (3) Pneumonia: Laterality: left Lung location: lower lobe of lung Pneumonia type: due to unspecified organism Qualified Code(s): J18.9 - Pneumonia, unspecified organism (4) Fluid overload: Admission and Anticipated Discharge Date Admission Date: May 22, 2020 Subjective Asked by hospitalist to reevaluate this patient with persistent hypoxemia. I reviewed Dr. Esteban's note from 06/25 discussed the case with Dr. Montilla. Patient reports continued shortness of breath and continues to require oxygen at fairly high flow rates. Review of Systems Review of Systems: Please refer to hospitalist note. No additions or deletions Physical Exam Physical Exam: CONSTITUTIONAL: vitals as above, generally thin, inmate in restraints. EYES: normal conjunctivae, no scleral icterus ENT: external ear and nose normal, MMM RESPIRATORY: crackles on right side and left now, no rales or wheezes, no increased work of breathing. CARDIOVASCULAR: regular rate and rhythm, S1 and 2 heard without murmurs, gallops or rubs, no JVD, no peripheral edema GASTROINTESTINAL: soft, nontender, nondistended, no guarding MUSCULOSKELETAL: generalized weakness, head is normocephalic and atraumatic SKIN: warm and dry NEUROLOGIC: CN 2-12 grossly intact, normal cognition, normal speech, no gross focal deficits. PSYCHIATRIC: alert cooperative and answering questions appropriately. Results & Data Results & Data ([facility]) Vital Signs (Past 12 Hours) Vital Signs Temp Pulse Pulse Resp BP BP Pulse Ox 07/01/20 11:21 37 C 78 18 156/80 H 96 07/01/20 07:17 37.0 C 89 18 158/82 H 90 07/01/20 07:10 77 07/01/20 03:56 36.5 C 88 22 158/87 H 98 Laboratory Results 06/29/20 06:26 06/29/20 06:[address] the chest from 07/01/2020 was reviewed and compared to prior CT scan from 06/23/2020. There is now a air-fluid level in the necrotic area within the left upper lobe consistent with a lung abscess. There are diffuse parenchymal opacities bilaterally. These appear progressed from prior CT scan done 8 days ago. There is also worsening of the bilateral pleural effusions. No filling defects concerning for thromboembolic disease. Echocardiogram from 06/30/2020 showed preserved ejection fraction with grade 2 diastolic dysfunction. No obvious valvular lesions identified. PG Care Time/CCT Total # of Minutes Spent Total Time Spent with Patient: Total time spent is greater than 50% in coordinat ion of care (as documented) at patient's floor/unit and/or counseling patient: Coding Level of Care Code 94386 Subseq Hosp Care Lvl 3 Diagnoses Necrotizing pneumonia J85.0 Lung abscess J85.2 Pneumonia J18.9 Laterality: left Lung location: lower lobe of lung Pneumonia type: due to unspecified organism Fluid overload E87.70 Time Spent (min) 35
--- NOTE | 2020-07-01 12:33 | Pharmacy Report ---
Glycemic Control Progress Note - Date of Service July 01, 2020 - Scope Glycemic Pharmacist consulted for glycemic control to write orders per [facility] inpatient glycemic control protocol. - Objective Accuchecks BSG(last 24 hours):: 06/30/20 06/30/20 06/30/20 16:47 16:48 17:04 POC Glucose 54 L* 54 L* 60 L* 06/30/20 06/30/20 07/01/20 17:13 20:02 07:31 POC Glucose 74 158 H 140 H 07/01/20 11:06 POC Glucose 168 H HbA1c:: Hemoglobin A1c 8.3 % (4.5-5.6) H 05/23/20 05:24 - Recent Pertinent Medications The patient is currently receiving: * Basal insulin: Lantus 7 units in the morning and 5 units in the evening * Correctional Insulin: Novolog Correction per scale ACHS Goal Range: Low 110 mg/dL - High 140 mg/dL Correction Factor: 40 mg/dL/unit * Prandial insulin: Per carb ratio of 1 unit per 8 grams CHO consumed - Outpatient Anti-Diabetic Meds Lantus 15 units in the morning and 8 units in the PM - Assessment & Plan ASSESSMENT: * See progress note from 06/22/20 for more background info, in short: * Pt receiving SQ basal bolus insulin regimen for hyperglycemia secondary to T1 diabetes. * Patient is currently receiving an average of 26 units of insulin per day * 12 units of basal insulin * 14 units of prandial/correctional insulin * BSGs ranging 54 - 158 mg/dl over the past 24hrs * Changes needed to insulin regimen: * AM Fasting BSG = 140 mg/dl. This is in goal range for patient based on inpatient targets and co-morbidities. The patient is eating well today. Will continue with 12 units of basal per day. If patient has poor PO inta ke, recommend reducing to 11 units/day. * Post-prandial BSGs trended downwards. Loosen CF/CR and up goal range. * Total daily dose = ~25 units. Close to home dose. PLAN FOR INPATIENT GLYCEMIC CONTROL: * Continuing Lantus 7 units SQ in the morning and 5 units in the PM * LOOSENING correction factor to 45 mg/dl/unit * LOOSENING carb ratio to 1 unit per 10 grams CHO consumed * Continuing goal range of Low 110 mg/dL - High 140 mg/dL * Please note that the plan above was derived based on current level of insulin resistance and hospital stress. These recommendations are appropriate for inpatient admission only. Plan of care upon discharge will need to be reassessed to avoid potential outpatient hypo/hyperglycemia. Thank you.
--- NOTE | 2020-07-01 15:07 | Hospitalist Progress Note ---
Date of Service July 01, 2020 Assessment & Plan (1) Acute respiratory failure with hypoxia: Acute respiratory distress syndrome with severe hypoxic respiratory failure on admission secondary to COVID-19 infection Received one unit of conv plasma on 05/27. Steroids x 3 weeks have been tapered off. Was not a candidate for remdesivir 2/2 renal failure. Continues on significant oxygen supplementation. CT of the chest without contrast on 06/23 revealed multifocal airspace consolidation with necrotizing/cavitary pneumonia in the ERASMO, and fluid in the distal esophagus. Repeat CT scan with the contrast showed-bilateral extensive necrotizing pneumonia,bilateral pleural effusion and left upper lobe lung abscess. CT scan was negative for any acute pulmonary embolism Appreciate pulmonary input and recommendation Appreciate ID input and recommendation Been on intravenous Unasyn and will continue antibiotic for 3 to 6 weeks HIV screening is negative. Results were discussed with patient verbalized understanding. Cont to wean oxygen as tolerated. Bilateral pleural effusion We will continue with intravenous Lasix and more diuresis No plan for thoracentesis at this time but may require down the line if the condition does not get any better with intravenous Lasix and kidney function deteriorated Left upper lobe lung abscess As above (2) Pneumonia due to COVID-19 virus: He completed a robust antibiotic course while admitted. (Doxycycline 100mg BID 5 dys, stopped for 2, resumed 05/30 for 7 full days, Ceftriaxone x 14 days, Cefepime for an additional 3 days after the ceftriaxone completed, and Flagyl for 8 days.) Now with bacterial superinfection likely secondary to aspiration with gram-negative and anaerobic coverage. Cont care plan as outlined above with supportive care measures. Patient will need at least 2 weeks total of antibiotics in the setting of necrotizing pneumonia. As above (3) Diabetes mellitus type I: brittle diabetic with difficult to control glucose. Glycemic pharmacist managing and has his on basal bolus SQ insulin at this point. Controlled for now. (4) CKD (chronic kidney disease), stage III: Resolved to baseline renal function. Patient has Stage 3 CKD. With contrast administration being given, have encouraged him to hydrate well and will hold am lasix dose. Will check PRP (5) Diabetic neuropathy: Persistent. Home dose gabapentin was 600mg PO QID decreased to 300mg PO BID because of renal insufficiency. Cont with gabapentin 300mg PO TID dosing for now with current renal function. Cont Tylenol and PRN oxy for discomfort. He is starting to become more comfortable. May need to consider a different option than oxycodone for [place] management if not offered by the long term going home but for now would just get him through this respiratory illness. (6) Hypothyroidism: chronic, stable, Continue levothyroxine per home regimen. (7) Depression: chronic, stable. Cont Prozac per home regimen. (8) Psoriasis: steroid cream BID x 2 weeks. Extensor plaques are improving on exam. (9) DVT prophylaxis: Lovenox DNR/DNI Dipso-Uncertain at this time. Pt continues to remain hypoxic but is overall improved since admission. Patient will need at least 1 more week of antibiotics in the setting of necrotizing pneumonia. Will repeat CT scan of the chest in am with contrast to ensure no worsening picture with persistent severe hypoxia and worsening SOB episodes per patient. Admission and Anticipated Discharge Date Admission Date: May 22, 2020 Subjective 07/01/2020 The patient was seen and examined in medical telemetry unit His condition has been deteriorating and he still requiring high flow oxygen up to 15 L to maintain saturation Denies any fever and/or chills Review of Systems Review of Systems: All systems reviewed and are unremarkable except as noted below Respiratory: + cough, + dyspnea and + dyspnea on exertion Cardiovascular: no chest pain Physical Exam Physical Exam: Lying in bed with some discomfort secondary to shortness of breath Constitutional: well developed, well nourished, + acute distress (Due to shortness of breath) and + ill appearing Eyes: PERRL, conjunctivae normal, anicteric sclerae ENMT: external ear and nose normal, oropharynx normal Neck: trachea midline, no thyromegaly Respiratory: + respiratory distress and + labored breathing Auscultation: + diminished lung sounds and + crackles (At the bases) Musculoskeletal: No acute arthritis in any joint Neurologic: Alert, awake and oriented x3. Generally very weak and lethargic Psychiatric: A+Ox3, euthymic affect Results & Data Results & Data ([facility]) Vital Signs (Past 12 Hours) Vital Signs Temp Pulse Pulse Resp BP BP Pulse Ox 07/01/20 11:21 37 C 78 18 156/80 H 96 07/01/20 07:17 37.0 C 89 18 158/82 H 90 07/01/20 07:10 77 07/01/20 03:56 36.5 C 88 22 158/87 H 98 Medications Administered Current Inpatient Medications Acetaminophen (Acetaminophen 500 Mg Tab) 1,000 mg PO Q8H MARY Stop: 07/15/20 17:29 Last Admin: 07/01/20 08:07 Dose: 1,000 mg Documented by: Betamethasone Valerate (Betamethasone Suzanne 0.1% Cr 15 Gm) 1 appln EXT BID MARY Stop: 07/28/20 15:59 Last Admin: 07/01/20 08:08 Dose: 1 appln Documented by: Dextrose (Dextrose 50% 50 Ml Syringe) 25 - 50 ml IV UD PRN; Protocol PRN Reason: Hypoglycemia Protocol Stop: 07/22/20 20:59 Enoxaparin Sodium (Enoxaparin Inj 40 Mg/0.4 Ml Syr) 40 mg SQ QAM MARY Stop: 07/25/20 08:59 Last Admin: 07/01/20 08:08 Dose: 40 mg Documented by: Gabapentin (Gabapentin 300 Mg Cap) 300 mg PO TID MARY Stop: 07/11/20 08:59 Last Admin: 07/01/20 13:10 Dose: 300 mg Documented by: Glucagon (Glucagon For Inj 1 Mg Vial) 1 mg IM UD PRN; Protocol PRN Reason: Hypoglycemia Protocol Stop: 07/22/20 20:59 Glucose (Glucose 40% Gel 15 Gm Tube) 15 - 30 gm PO UD PRN; Protocol PRN Reason: Hypoglycemia Protocol Stop: 07/22/20 20:59 Glucose (Glucose 10 Tabs/Tube) 4 - 8 tabs PO UD PRN; Protocol PRN Reason: Hypoglycemia Protocol Stop: 07/22/20 20:59 Heparin Sodium (Beef Lung) (Heparin 10 Unit/Ml 5 Ml Flush) 5 ml FLUSH PRN PRN PRN Reason: Flush Stop: 07/03/20 22:44 Furosemide 40 mg/ Syringe 4 mls @ 4 mls/min IV DAILY MARY Stop: 07/15/20 17:29 Last Admin: 06/30/20 08:32 Dose: 4 mls/min Documented by: Lorazepam (Ativan) 0.25 mg in 0.5 mls @ 0.5 mls/min IV Q6H PRN PRN Reason: Anxiety/Agitation Stop: 07/21/20 08:58 Last Admin: 06/24/20 02:13 Dose: 0.5 mls/min Documented by: Ampicillin Sodium/Sulbactam Sodium 3,000 mg/ Sodium Chloride 108 mls @ 200 mls/hr IV Q6H [facility]; Protocol Stop: 07/08/20 06:59 Last Infusion: 07/01/20 13:52 Dose: Infused Documented by: Iron Sucrose 200 mg/ Sodium (Chloride) 110 mls @ 220 mls/hr IV DAILY [facility]1983 Stop: 07/02/20 09:29 Last Infusion: 07/01/20 11:32 Dose: Infused Documented by: Sodium Chloride (Nss) 500 mls @ 80 mls/hr IV .Q6H15M [facility], [facility]1983 Stop: 07/01/20 15:44 Last Admin: 07/01/20 10:44 Dose: 80 mls/hr Documented by: Insulin Aspart (Insulin Aspart 100 Units/Ml 3 Ml Pen) 0 units SC [facility]; Protocol Stop: 07/25/20 07:29 Last Admin: 07/01/20 11:58 Dose: 1 units Documented by: Insulin Glargine (Insulin Glargine Solostar 100 Units/Ml 3 Ml Pen) 7 units SC [facility]; Protocol Stop: 07/29/20 08:59 Last Admin: 07/01/20 08:01 Dose: 7 units Documented by: Insulin Glargine (Insulin Glargine Solostar 100 Units/Ml 3 Ml Pen) 5 units SC [facility]; Protocol Stop: 07/30/20 20:59 Last Admin: 06/30/20 21:40 Dose: 5 units Documented by: Lisinopril (Lisinopril 2.5 Mg Tab) 2.5 mg PO [facility] Stop: 07/30/20 08:59 Last Admin: 07/01/20 08:08 Dose: 2.5 mg Documented by: Miscellaneous (Carbohydrates For Hypoglycemia ) 15 - 30 gm PO UD PRN PRN Reason: Hypoglycemia Treatment Stop: 07/22/20 20:59 Last Admin: 06/30/20 17:05 Dose: 15 gm Documented by: Miscellaneous Information (Pharmacy Glycemic Mgmt Consult) 1 ea N/A UD PRN PRN Reason: Consult Stop: 07/24/20 07:33 Multivitamins (Multivitamin Tab) 1 tab PO [facility] Stop: 07/03/20 08:59 Last Admin: 07/01/20 08:08 Dose: 1 tab Documented by: Ondansetron HCl (Ondansetron Inj 2 Mg/Ml 2 Ml Vial) 4 mg IV Q8H PRN PRN Reason: nausea or vomiting Stop: 07/25/20 14:14 Last Admin: 07/01/20 08:53 Dose: 4 mg Documented by: Oxycodone HCl (Oxycodone Hcl Ir 5 Mg Tab (Immediate Release)) 5 mg PO Q6H PRN PRN Reason: Pain Stop: 07/10/20 14:32 Last Admin: 07/01/20 00:08 Dose: 5 mg Documented by: Phenol (Chloraseptic 1.4% Soln 180 Ml Btl) 2 sprays MT Q4H PRN PRN Reason: sore thorat Stop: 07/28/20 14:45 Last Admin: 06/28/20 15:19 Dose: 2 sprays Documented by: Polyethylene Glycol (Polyethylene (Miralax) 17 Gm Pack) 17 gm PO Q6H PRN PRN Reason: Constipation Stop: 07/13/20 18:55 Last Admin: 06/19/20 15:59 Dose: 17 gm Documented by: Potassium Chloride (Potassium Chloride Crtab 20 Meq Tabcr) 20 meq PO BID [facility] Stop: 07/08/20 10:29 Last Admin: 07/01/20 08:07 Dose: 20 meq Documented by: Senna/Docusate Sodium (Docusate Sodium/Senna 50/8.6mg Tab) 1 tab PO QAM [facility] Stop: 07/14/20 08:59 Last Admin: 07/01/20 08:07 Dose: 1 tab Documented by: Vitamin D (Cholecalciferol 1,000 Units 25 Mcg Tab) 1,000 units PO QAM [facility] Stop: 07/12/20 18:29 Last Admin: 07/01/20 08:08 Dose: 1,000 units Documented by: (1) CKD (chronic kidney disease), stage III Chronic kidney disease stage 3 subtype: stage 3b (GFR 30-44) Qualified Code(s): N18.32 - Chronic kidney disease, stage 3b
[2020-07-02] MEDS: ACETAMINOPHEN 500 MG TAB PO SCH ×3 (00:28→16:54)
[2020-07-02] MEDS: AMPICILLIN/SULBACTAM SOD 3,000 MG in 0.9 % SODIUM CHLORIDE 100 ML IV SCH ×4 (00:28→18:39)
[2020-07-02 06:27] LABS: Basophils # (auto) 0.09 K/uL (0-0.2); Basophils % (auto) 0.9 %; Eosinophils # (auto) 0.36 K/uL (0-0.5); Eosinophils % (auto) 3.7 %; Hemoglobin 9.2 g/dL (14.0-18.0); Immature Granulocytes # (auto) 0.08 K/uL (0.00-0.02); Immature Granulocytes % (auto) 0.8 %; Lymphocytes # (auto) 1.97 K/uL (1.2-3.4); Lymphocytes % (auto) 20.5 %; Mean Corpuscular Hemoglobin 27.7 pg (25-34); Mean Corpuscular Hgb Conc 31.7 g/dL (32-36); Mean Corpuscular Volume 87.3 fL (80-100); Mean Platelet Volume 8.9 fL (7.4-10.4); Monocytes # (auto) 0.75 K/uL (0.11-0.59); Monocytes % (auto) 7.8 %; Neutrophils # (auto) 6.36 K/uL (1.4-6.5); Neutrophils % (auto) 66.3 %; Platelet Count 724 K/uL (130-400); RDW Coefficient of Variation 15.7 % (11.5-14.5); RDW Standard Deviation 50.4 fL (36.4-46.3); Red Blood Count 3.32 M/uL (4.7-6.1); White Blood Count 9.61 K/uL (4.8-10.8)
[2020-07-02 06:58] LABS: Albumin Level 1.3 gm/dl (3.4-5.0); BUN Creatinine Ratio 9.8 (10-20); Calcium 8.3 mg/dl (8.5-10.1); Creatinine Clr Calc Pharmacy 46.4 ml/min; Est GFR (African American) 43.3; Est GFR (Non-African American) 37.4; Magnesium 1.7 mg/dl (1.8-2.4); Potassium 4.1 mmol/L (3.5-5.1)
[2020-07-02 07:01] LABS: Albumin Globulin Ratio 0.3 (0.9-2); Bilirubin,Total 0.2 mg/dl (0.2-1); Globulin 5.1 gm/dl (2.5-4.0); Phosphorus 3.3 mg/dl (2.5-4.9); Total Protein 6.4 gm/dl (6.4-8.2)
[2020-07-02] MEDS: INSULIN ASPART 100 UNITS/ML 3 ML PEN SC SCH ×4 (08:07→21:41)
[2020-07-02] MEDS: INSULIN GLARGINE SOLOSTAR 100 UNITS/ML 3 ML PEN SC SCH (08:08)
[2020-07-02] MEDS: IRON SUCROSE 200 MG in 0.9 % SODIUM CHLORIDE 100 ML IV SCH (08:18)
[2020-07-02] MEDS: POTASSIUM CHLORIDE CRTAB 20 MEQ TABCR PO SCH ×2 (08:19→21:40)
[2020-07-02] MEDS: CHOLECALCIFEROL 1,000 UNITS 25 MCG TAB PO SCH (08:19)
[2020-07-02] MEDS: MULTIVITAMIN TAB PO SCH (08:19)
[2020-07-02] MEDS: DOCUSATE SODIUM/SENNA 50/8.6MG TAB PO SCH (08:19)
[2020-07-02] MEDS: ENOXAPARIN INJ 40 MG/0.4 ML SYR SQ SCH (08:19)
[2020-07-02] MEDS: GABAPENTIN 300 MG CAP PO SCH ×3 (08:20→21:40)
[2020-07-02] MEDS: BETAMETHASONE VAL 0.1% CR 15 GM EXT SCH ×2 (08:20→21:42)
[2020-07-02] MEDS: FUROSEMIDE 40 MG in SYRINGE 0 ML IV SCH (08:21)
--- NOTE | 2020-07-02 09:52 | Pulmonology Progress Note ---
Date of Service July 02, 2020 Assessment & Plan (1) Necrotizing pneumonia: Impression: 55-year-old male with Covid pneumonia and now appears to have a secondary lung abscess/pneumonia with fluid overload perpetuating his hypoxemic respiratory failure. Recommendations: 1. Recommend continued aggressive diuresis. Nephrology is following. His kidney function appears to have returned back to baseline. He is on 40 of IV Lasix daily. His volume status was even last 24 hours. Continue diuretics under the direction of nephrology. 2. Hypoxemic respiratory failure: Suspect that this is multifactorial due to combinations of pulmonary fibrosis to the patient's recent viral pneumonia, fluid overload given the bilateral pleural effusions, and potential new infection given the lung abscess and elevated procalcitonin. See comments below. Wean oxygen as tolerated. 3. Bilateral pleural effusions: Would not recommend thoracentesis at this point time if the patient can tolerate diuresis. If kidney function becomes problematic to the point that we cannot diurese the patient without impending dialysis, could consider thoracentesis at that point time. 4. Lung abscess: The patient is being followed by infectious disease at [facility]. Typically these abscesses require a prolonged course of antimicrobial therapy often 3 to 6 weeks. Will defer to infectious disease choice of antimicrobial agents and duration of therapy. He should have follow- up imaging at completion of antimicrobial therapy to evaluate the cavity. Encouragingly, his procalcitonin and white blood cell count are normalizing. Would not recommend IV iron in the setting of a potential active infection. No indication for bronchoscopy currently as it would be unlikely to casino change attendant. 5. Florinef can be stopped at this point time. I think there is little utility in zinc and vitamin C as well so these will also be discontinued. If the patient's infection can be adequately addressed and treated and he can be diuresed, I suspect that his oxygen requirement will decrease over time. Admission and Anticipated Discharge Date Admission Date: May 22, 2020 Subjective Seen and examined. The patient is lying comfortably with a facemask in place with oxygen saturations in the high 90% range. Reportedly he desaturates with any significant physical activity. Review of Systems Review of Systems: Per hospitalist note. Results & Data Results & Data ([facility]) Vital Signs (Past 12 Hours) Vital Signs Temp Pulse Pulse Resp BP BP Pulse Ox 07/02/20 07:26 36.9 C 84 18 145/77 H 98 07/02/20 07:23 84 07/02/20 04:28 37.5 C 88 20 149/78 H 94 07/01/20 23:55 75 07/01/20 23:07 36.4 C L 84 18 163/86 H 94 PG Care Time/CCT Total # of Minutes Spent Total Time Spent with Patient: Total time spent is greater than 50% in coordination of care (as documented) at patient's floor/unit and/or counseling patient: Coding Level of Care Code 89922 Subseq Hosp Care Lvl 3 Diagnoses Necrotizing pneumonia J85.0
--- NOTE | 2020-07-02 14:37 | Hospitalist Progress Note ---
Date of Service July 02, 2020 Assessment & Plan (1) Acute respiratory failure with hypoxia: Acute respiratory distress syndrome with severe hypoxic respiratory failure on admission secondary to COVID-19 infection Received one unit of conv plasma on 05/27. Steroids x 3 weeks have been tapered off. Was not a candidate for remdesivir 2/2 renal failure. Continues on significant oxygen supplementation. CT of the chest without contrast on 06/23 revealed multifocal airspace consolidation with necrotizing/cavitary pneumonia in the ERASMO, and fluid in the distal esophagus. Repeat CT scan with the contrast showed-bilateral extensive necrotizing pneumonia,bilateral pleural effusion and left upper lobe lung abscess. CT scan was negative for any acute pulmonary embolism Appreciate pulmonary input and recommendation Appreciate ID input and recommendation Been on intravenous Unasyn and will continue antibiotic for 3 to 6 weeks HIV screening is negative. Results were discussed with patient verbalized understanding. Still requiring high flow oxygen up to 15 L/min to maintain saturation. Bilateral pleural effusion We will continue with intravenous Lasix and more diuresis No plan for thoracentesis at this time but may require down the line if the condition does not get any better with intravenous Lasix and kidney function deteriorated We will continue aggressive diuresis as per portrait consultant and employment training specialist Left upper lobe lung abscess As above Will need prolonged intravenous antibiotic (2) Pneumonia due to COVID-19 virus: He completed a robust antibiotic course while admitted. (Doxycycline 100mg BID 5 dys, stopped for 2, resumed 05/30 for 7 full days, Ceftriaxone x 14 days, Cefepime for an additional 3 days after the ceftriaxone completed, and Flagyl for 8 days.) Now with bacterial superinfection likely secondary to asp iration with gram-negative and anaerobic coverage. Cont care plan as outlined above with supportive care measures. Patient will need at least 2 weeks total of antibiotics in the setting of necrotizing pneumonia. As above (3) Diabetes mellitus type I: brittle diabetic with difficult to control glucose. Glycemic pharmacist managing and has his on basal bolus SQ insulin at this point. Controlled for now. (4) CKD (chronic kidney disease), stage III: Resolved to baseline renal function. Patient has Stage 3 CKD. With contrast administration being given, have encouraged him to hydrate well and will hold am lasix dose. Will check PRP-kidney function remains stable (5) Diabetic neuropathy: Persistent. Home dose gabapentin was 600mg PO QID decreased to 300mg PO BID because of renal insufficiency. Cont with gabapentin 300mg PO TID dosing for now with current renal function. Cont Tylenol and PRN oxy for discomfort. He is starting to become more comfortable. 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 (6) Hypothyroidism: chronic, stable, Continue levothyroxine per home regimen. (7) Depression: chronic, stable. Cont Prozac per home regimen. (8) Psoriasis: steroid cream BID x 2 weeks. Extensor plaques are improving on exam. (9) DVT prophylaxis: Lovenox DNR/DNI Dipso-Uncertain at this time. Pt continues to remain hypoxic but is overall improved since admission. Patient will need at least 1 more week of antibiotics in the setting of necrotizing pneumonia. Will repeat CT scan of the chest in am with contrast to ensure no worsening picture with persistent severe hypoxia and worsening SOB episodes per patient. Overall prognosis remains poor Admission and Anticipated Discharge Date Admission Date: May 22, 2020 Subjective 07/01/2020 The patient was seen and examined in medical telemetry unit His condition has been deteriorating and he still requiring high flow oxygen up to 15 L to maintain saturation Denies any fever and/or chills 07/02/2020 The patient was seen and examined in medical telemetry unit He remains critical but stable Desaturates with any activity and has been requiring high flow oxygen up to 15 L/min to maintain saturation Review of Systems Review of Systems: All systems reviewed and are unremarkable except as noted below Constitutional: + weakness Respiratory: + cough, + dyspnea and + dyspnea on exertion Neurologic: + generalized weakness; no tremor(s), no headache(s) and no confu bernie Physical Exam Physical Exam: Lying in bed with some discomfort secondary to shortness of breath Constitutional: well developed, well nourished, + acute distress (Due to shortness of breath) and + ill appearing Eyes: PERRL, conjunctivae normal, anicteric sclerae ENMT: external ear and nose normal, oropharynx normal Neck: trachea midline, no thyromegaly Respiratory: + respiratory distress, + labored breathing, + uses accessory muscles and + cough Auscultation: + diminished lung sounds, + crackles (At the bases) and + wheezes Cardiovascular: Rate/Rhythm: regular rate and regular rhythm Heart Sounds: no murmur Gastrointestinal (Abdomen): Inspection/Auscultation: normal bowel sounds; abdomen not distended Percussion/Palpation: abdomen soft; abdomen nontender Musculoskeletal: No acute arthritis in any joint Psychiatric: A+Ox3, euthymic affect Lymphatic: no cervical or axillary lymphadenopathy Results & Data Results & Data ([facility]) Vital Signs (Past 12 Hours) Vital Signs Temp Pulse Pulse Resp BP BP Pulse Ox 07/02/20 11:17 36.4 C L 76 18 146/76 H 97 07/02/20 07:26 36.9 C 84 18 145/77 H 98 07/02/20 07:23 84 07/02/20 04:28 37.5 C 88 20 149/78 H 94 Laboratory Results Short CBC 07/02/20 Range/Units 06:05 WBC 9.61 (4.8-10.8) K/uL Hgb 9.2 L (14.0-18.0) g/dL Hct 29.0 L (42-52) % Plt Count 724 H (130-400) K/uL BMP 07/02/20 06:05 Sodium 141 Potassium 4.1 Chloride 109 H Carbon Dioxide 26 BUN 19 H Creatinine 1.95 H Glucose 68 L Calcium 8.3 L Liver Function 07/02/20 Range/Units 06:05 Total Bilirubin 0.2 (0.2-1) mg/dl AST 16 (15-37) U/L ALT 14 (12-78) U/L Alkaline Phosphatase 138 H (45-117) U/L Albumin 1.3 L (3.4-5.0) gm/dl Medications Administered Current Inpatient Medications Acetaminophen (Acetaminophen 500 Mg Tab) 1,000 mg PO Q8H MARY Stop: 07/15/20 17:29 Last Admin: 07/02/20 08:20 Dose: 1,000 mg Documented by: Betamethasone Valerate (Betamethasone Suzanne 0.1% Cr 15 Gm) 1 appln EXT BID MARY Stop: 07/28/20 15:59 Last Admin: 07/02/20 08:20 Dose: 1 appln Documented by: Dextrose (Dextrose 50% 50 Ml Syringe) 25 - 50 ml IV UD PRN; Protocol PRN Reason: Hypoglycemia Protocol Stop: 07/22/20 20:59 Enoxaparin Sodium (Enoxaparin Inj 40 Mg/0.4 Ml Syr) 40 mg SQ QAM MARY Stop: 07/25/20 08:59 Last Admin: 07/02/20 08:19 Dose: 40 mg Documented by: Gabapentin (Gabapentin 300 Mg Cap) 300 mg PO TID MARY Stop: 07/11/20 08:59 Last Admin: 07/02/20 14:03 Dose: 300 mg Documented by: Glucagon (Glucagon For Inj 1 Mg Vial) 1 mg IM UD PRN; Protocol PRN Reason: Hypoglycemia Protocol Stop: 07/22/20 20:59 Glucose (Glucose 40% Gel 15 Gm Tube) 15 - 30 gm PO UD PRN; Protocol PRN Reason: Hypoglycemia Protocol Stop: 07/22/20 20:59 Glucose (Glucose 10 Tabs/Tube) 4 - 8 tabs PO UD PRN; Protocol PRN Reason: Hypoglycemia Protocol Stop: 07/22/20 20:59 Heparin Sodium (Beef Lung) (Heparin 10 Unit/Ml 5 Ml Flush) 5 ml FLUSH PRN PRN PRN Reason: Flush Stop: 07/03/20 22:44 Furosemide 40 mg/ Syringe 4 mls @ 4 mls/min IV DAILY MARY Stop: 07/15/20 17:29 Last Admin: 07/02/20 08:21 Dose: 4 mls/min Documented by: Lorazepam (Ativan) 0.25 mg in 0.5 mls @ 0.5 mls/min IV Q6H PRN PRN Reason: Anxiety/Agitation Stop: 07/21/20 08:58 Last Admin: 06/24/20 02:13 Dose: 0.5 mls/min Documented by: Ampicillin Sodium/Sulbactam Sodium 3,000 mg/ Sodium Chloride 108 mls @ 200 mls/hr IV Q6H MARY; Protocol Stop: 07/08/20 06:59 Last Admin: 07/02/20 14:02 Dose: 200 mls/hr Documented by: Insulin Aspart (Insulin Aspart 100 Units/Ml 3 Ml Pen) 0 units SC ACHS [facility]; Protocol Stop: 07/25/20 07:29 Last Admin: 07/02/20 11:46 Dose: Not Given Documented by: Insulin Glargine (Insulin Glargine Solostar 100 Units/Ml 3 Ml Pen) 7 units SC QAM [facility]; Protocol Stop: 07/29/20 08:59 Last Admin: 07/02/20 08:08 Dose: 7 units Documented by: Insulin Glargine (Insulin Glargine Solostar 100 Units/Ml 3 Ml Pen) 3 units SC [facility]; Protocol Stop: 08/01/20 20:59 Lisinopril (Lisinopril 2.5 Mg Tab) 2.5 mg PO QAM [facility] Stop: 07/30/20 08:59 Last Admin: 07/01/20 08:08 Dose: 2.5 mg Documented by: Miscellaneous (Carbohydrates For Hypoglycemia ) 15 - 30 gm PO UD PRN PRN Reason: Hypoglycemia Treatment Stop: 07/22/20 20:59 Last Admin: 06/30/20 17:05 Dose: 15 gm Documented by: Miscellaneous Information (Pharmacy Glycemic Mgmt Consult) 1 ea N/A UD PRN PRN Reason: Consult Stop: 07/24/20 07:33 Multivitamins (Multivitamin Tab) [facility] [place] Stop: 07/03/20 08:59 Last Admin: 07/02/20 08:19 Dose: 1 tab Documented by: Ondansetron HCl (Ondansetron Inj 2 Mg/Ml 2 Ml Vial) 4 mg IV Q8H PRN PRN Reason: nausea or vomiting Stop: 07/25/20 14:14 Last Admin: 07/01/20 17:21 Dose: 4 mg Documented by: Oxycodone HCl (Oxycodone Hcl Ir 5 Mg Tab (Immediate Release)) 5 mg PO Q6H PRN PRN Reason: Pain Stop: 07/10/20 14:32 Last Admin: 07/01/20 00:08 Dose: 5 mg Documented by: Phenol (Chloraseptic 1.4% Soln 180 Ml Btl) 2 sprays MT Q4H PRN PRN Reason: sore thorat Stop: 07/28/20 14:45 Last Admin: 06/28/20 15:19 Dose: 2 sprays Documented by: Polyethylene Glycol (Polyethylene (Miralax) 17 Gm Pack) 17 gm PO Q6H PRN PRN Reason: Constipation Stop: 07/13/20 18:55 Last Admin: 06/19/20 15:59 Dose: 17 gm Documented by: Potassium Chloride (Potassium Chloride Crtab 20 Meq Tabcr) 20 meq PO BID [facility] Stop: 07/08/20 10:29 Last Admin: 07/02/20 08:19 Dose: 20 meq Documented by: Senna/Docusate Sodium (Docusate Sodium/Senna 50/8.6mg Tab) 1 tab PO [facility] Stop: 07/14/20 08:59 Last Admin: 07/02/20 08:19 Dose: 1 tab Documented by: Vitamin D (Cholecalciferol 1,000 Units 25 Mcg Tab) 1,000 [facility] [place] Stop: 07/12/20 18:29 Last Admin: 07/02/20 08:19 Dose: 1,000 units Documented by: (1) CKD (chronic kidney disease), stage III Chronic kidney disease stage 3 subtype: stage 3b (GFR 30-44) Qualified Code(s): N18.32 - Chronic kidney disease, stage 3b
--- NOTE | 2020-07-02 15:49 | Pharmacy Report ---
Pharmacy Glycemic Short Note 2 - Date of Service July 02, 2020 - Glycemic Short BSG Results (Last 24 hours): 07/01/20 07/01/20 07/02/20 17:04 20:03 06:05 Glucose 68 L POC Glucose 229 H 149 H 07/02/20 07/02/20 07:36 11:24 Glucose POC Glucose 78 88 Outpatient Anti-diabetic Regimen: * Lantus 15 units SC qAM, 8 units SC qPM * A1c = 8.3 % on 05/23/20 ASSESSMENT: 07/02: * Patient received total of 23 units of insulin yesterday: 12 units of basal and 11 units bolus. * Fasting BSG this AM was low at 68 mg/dl. Reduced HS Lantus dose for tonight to 3 units. * Lunch BSG today was only 88 mg/dl, therefore also loosened Novolog CR. PLAN FOR INPATIENT GLYCEMIC CONTROL: * Basal insulin: reduced * Lantus 7 units SQ qAM and 3 units SQ HS * Bolus insulin: loosened * Novolog SQ ACHS * Goal range: 110-140mg/dL * Correction Factor: 45 mg/dL/unit * Nutritional / Prandial insulin per carb ratio of 1 unit per 12 grams CHO consumed Recommendation for Discharge: * Resume patient's home insulin regimen as long as he is not reporting hypoglycemia. * Recommend close follow up with outpatient provider for dose titration as needed.
[2020-07-02] MEDS: oxyCODONE HCL IR 5 MG TAB (IMMEDIATE RELEASE) PO PRN (16:53)
--- NOTE | 2020-07-02 17:26 | Nephrology Progress Note ---
Date of Service July 02, 2020 Assessment & Plan (1) CKD (chronic kidney disease), stage III: Per hospitalist on paperwork from admission, baseline creatinine 2.3 in 12/2019. No OP/prior to admission creatinine documented. Pt presented with creatinine 2.5 on 05/22; then since 05/27 in mid to low 3s. peaked at 4.5 on 06/02; creat under 3 since 06/10; at last labs on 06/29 in low 2's, at baseline. uacm w/ 3+ dipstick protein, 1+ blood, consistent with even 2018 sediment; no infection or other inflammation. 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 on 0.3 mg daily x months at least) and plan slow taper q 2-3 wks -stopped ACEI at tihs point (3) COVID-19: on high flow 02 for a few weeks now and still dependent; w/ near intubation / code purple for hypoxia 06/01 AM; ICU status downgraded 06/03; recurrent hypoxemic episodes corrected with self-proning >> he has been on 6L or more 02 continuously since 05/28; currently on 15L/min on oxymask -per primary and pulm -f/u CT results >> remarkable for increaseing BL pl effusions and ERASMO abscess >> fluids after study 500 ML; recheck labs in am and plan to resume lasix (4) Anemia: has had pRBC this admission on 06/22 >> t stn same day 6% -recheck cbc in am -cont venofer load w/ 2 x 200 mg daily doses; will order 300 mg daily starting tomorrow venofer x 3 more days Admission and Anticipated Discharge Date Admission Date: May 22, 2020 Subjective seen on rounds this am 1015; no interval changes in sx; desats to 70s w/ talking to me; had minimal breakfast; states pulm plans abtx changes and recommends aggressive diuresis Review of Systems Review of Systems: All systems reviewed & are unremarkable except as noted in HPI & below Musculoskeletal: + body aches (c/o bl foot pain) Physical Exam Constitutional: well developed, well nourished and + thin; no acute distress Eyes: EOM intact bilaterally ENMT: Ears: no external ear abnormality Nose: no external nose abnormality Mouth: + dry oral mucous membranes Neck: no nuchal rigidity Respiratory: normal respiratory effort (on high flow 02; desats readily) and able to speak in complete sentences; no labored breathing Auscultation: + diminished lung sounds and + crackles (diffusely through posterior case) Cardiovascular: RRR, no murmur, no edema Rate/Rhythm: regular rate and regular rhythm Gastrointestinal (Abdomen): Inspection/Auscultation: abdomen normal to inspection and normal bowel sounds Percussion/Palpation: abdomen soft; abdomen nontender Musculoskeletal: Extremities: strength 5/5 throughout Skin: no rashes, warm and dry Neurologic: gutierrez, fluent speech; no tremor Psychiatric: A+Ox3, euthymic affect Orientation: alert and oriented x 3 Eye Contact: good eye contact Affect: + anxious affect and + flat affect Genitourinary: [email or web address] Results & Data ([facility]) Vital Signs (Past 12 Hours) Vital Signs Temp Pulse Pulse Resp BP Pulse Ox 07/02/20 15:21 36.9 C 77 20 138/80 93 07/02/20 14:25 78 07/02/20 11:17 36.4 C L 76 18 146/76 H 97 07/02/20 07:26 36.9 C 84 18 145/77 H 98 07/02/20 07:23 84 Laboratory Results 07/02/20 06:05 07/02/20 06:05 (1) CKD (chronic kidney disease), stage III Chronic kidney disease stage 3 subtype: stage 3b (GFR 30-44) Qualified Code(s): N18.32 - Chronic kidney disease, stage 3b (2) Anemia Anemia type: iron deficiency Iron deficiency anemia type: unspecified iron deficiency Qualified Code(s): D50.9 - Iron deficiency anemia, unspecified
[2020-07-02] MEDS: FLUDROCORTISONE ACETATE 0.1 MG TAB PO SCH (18:37)
[2020-07-02] MEDS ORDERED: INSULIN GLARGINE SOLOSTAR 100 UNITS/ML 3 ML PEN SC SCH (21:00)
[2020-07-03] MEDS: oxyCODONE HCL IR 5 MG TAB (IMMEDIATE RELEASE) PO PRN ×3 (00:55→17:14)
[2020-07-03] MEDS: AMPICILLIN/SULBACTAM SOD 3,000 MG in 0.9 % SODIUM CHLORIDE 100 ML IV SCH ×5 (00:56→23:44)
[2020-07-03] MEDS: ACETAMINOPHEN 500 MG TAB PO SCH ×3 (00:57→17:08)
[2020-07-03 06:18] LABS: BUN Creatinine Ratio 9.2 (10-20); Calcium 7.9 mg/dl (8.5-10.1); Creatinine Clr Calc Pharmacy 43.3 ml/min; Est GFR (African American) 39.8; Est GFR (Non-African American) 34.4; Potassium 3.9 mmol/L (3.5-5.1)
[2020-07-03] MEDS: FUROSEMIDE 40 MG in SYRINGE 0 ML IV SCH (07:53)
[2020-07-03] MEDS: FLUDROCORTISONE ACETATE 0.1 MG TAB PO SCH (07:54)
[2020-07-03] MEDS: BETAMETHASONE VAL 0.1% CR 15 GM EXT SCH ×2 (07:56→21:34)
[2020-07-03] MEDS: IRON SUCROSE 300 MG in SODIUM CHLORIDE 0.9% 250 ML IV SCH (07:57)
[2020-07-03] MEDS: GABAPENTIN 300 MG CAP PO SCH ×3 (08:05→21:33)
[2020-07-03] MEDS: ENOXAPARIN INJ 40 MG/0.4 ML SYR SQ SCH (08:05)
[2020-07-03] MEDS: CHOLECALCIFEROL 1,000 UNITS 25 MCG TAB PO SCH (08:06)
[2020-07-03] MEDS: POTASSIUM CHLORIDE CRTAB 20 MEQ TABCR PO SCH ×2 (08:06→21:34)
[2020-07-03] MEDS: DOCUSATE SODIUM/SENNA 50/8.6MG TAB PO SCH (08:12)
[2020-07-03] MEDS: INSULIN ASPART 100 UNITS/ML 3 ML PEN SC SCH ×4 (09:55→22:07)
[2020-07-03] MEDS: INSULIN GLARGINE SOLOSTAR 100 UNITS/ML 3 ML PEN SC SCH (09:56)
--- NOTE | 2020-07-03 15:07 | Hospitalist Progress Note ---
Date of Service July 03, 2020 Assessment & Plan (1) Acute respiratory failure with hypoxia: Acute respiratory distress syndrome with severe hypoxic respiratory failure on admission secondary to COVID-19 infection Received one unit of conv plasma on 05/27. Steroids x 3 weeks have been tapered off. Was not a candidate for remdesivir 2/2 renal failure. Continues on significant oxygen supplementation. CT of the chest without contrast on 06/23 revealed multifocal airspace consolidation with necrotizing/cavitary pneumonia in the ERASMO, and fluid in the distal esophagus. Repeat CT scan with the contrast showed-bilateral extensive necrotizing pneumonia,bilateral pleural effusion and left upper lobe lung abscess. CT scan was negative for any acute pulmonary embolism Appreciate pulmonary input and recommendation Appreciate ID input and recommendation Been on intravenous Unasyn and will continue antibiotic for 3 to 6 weeks HIV screening is negative. Results were discussed with patient verbalized understanding. Still requiring high flow oxygen up to 15 L/min to maintain saturation. Does not show any significant improvement Bilateral pleural effusion We will continue with intravenous Lasix and more diuresis No plan for thoracentesis at this time but may require down the line if the condition does not get any better with intravenous Lasix and kidney function deteriorated We will continue aggressive diuresis as per change management specialist and project scientist We will continue diuresis Left upper lobe lung abscess As above Will need prolonged intravenous antibiotic (2) Pneumonia due to COVID-19 virus: He completed a robust antibiotic course while admitted. (Doxycycline 100mg BID 5 dys, stopped for 2, resumed 05/30 for 7 full days, Ceftriaxone x 14 days, Cefepime for an additional 3 days after the ceftriaxone completed, and Flagyl for 8 days.) Now with bacterial superinfection likely secondary to aspiration with gram-negative and anaerobic coverage. Cont care plan as outlined above with supportive care measures. Patient will need at least 2 weeks total of antibiotics in the setting of necrotizing pneumonia. As above (3) Diabetes mellitus type I: brittle diabetic with difficult to control glucose. Glycemic pharmacist managing and has his on basal bolus SQ insulin at this point. Controlled for now. (4) CKD (chronic kidney disease), stage III: Resolved to baseline renal function. Patient has Stage 3 CKD. With contrast administration being given, have encouraged him to hydrate well and will hold am lasix dose. Will check PRP-kidney function remains stable (5) Diabetic neuropathy: Persistent. Home dose gabapentin was 600mg PO QID decreased to 300mg PO BID because of renal insufficiency. Cont with gabapentin 300mg PO TID dosing for now with current renal function. Cont Tylenol and PRN oxy for discomfort. He is starting to become more comfortable. May need to consider a different option than oxycodone for chcf management if not offered by the snf going home but for now would just get him through this respiratory illness. (6) Hypothyroidism: chronic, stable, Continue levothyroxine per home regimen. (7) Depression: chronic, stable. Cont Prozac per home regimen. (8) Psoriasis: steroid cream BID x 2 weeks. Extensor plaques are improving on exam. (9) DVT prophylaxis: Lovenox DNR/DNI Dipso-Uncertain at this time. Pt continues to remain hypoxic but is overall improved since admission. Patient will need at least 1 more week of antibiotics in the setting of necrotizing pneumonia. Will repeat CT scan of the chest in am with contrast to ensure no worsening picture with persistent severe hypoxia and worsening SOB episodes per patient. Overall prognosis remains poor Admission and Anticipated Discharge Date Admission Date: May 22, 2020 Subjective 07/01/2020 The patient was seen and examined in medical telemetry unit His condition has been deteriorating and he still requiring high flow oxygen up to 15 L to maintain saturation Denies any fever and/or chills 07/02/2020 The patient was seen and examined in medical telemetry unit He remains critical but stable Desaturates with any activity and has been requiring high flow oxygen up to 15 L/min to maintain saturation 07/03/2020 The patient was seen and examined in medical telemetry unit He is seems to be a little bit better today Does not have any shortness of breath at rest and denies any cough Still requiring high flow oxygen to maintain saturation Review of Systems Review of Systems: All systems reviewed and are unremarkable except as noted below Constitutional: + weakness Respiratory: + cough, + dyspnea and + dyspnea on exertion Neurologic: + generalized weakness; no tremor(s), no headache(s) and no confusion Physical Exam Physical Exam: Lying in bed without significant distress but has oxygen mask on Constitutional: well developed, well nourished, + acute distress (Due to shortness of breath) and + ill appearing Eyes: PERRL, conjunctivae normal, anicteric sclerae ENMT: external ear and nose normal, oropharynx normal Neck: trachea midline, no thyromegaly Respiratory: + respiratory distress and + uses accessory muscles; no labored breathing and no cough Auscultation: + diminished lung sounds, + crackles (At the bases) and + wheezes Cardiovascular: Rate/Rhythm: regular rate and regular rhythm Heart Sounds: no murmur Gastrointestinal (Abdomen): Inspection/Auscultation: normal bowel sounds; abdomen not distended Percussion/Palpation: abdomen soft; abdomen nontender Musculoskeletal: No acute arthritis in any joint Psychiatric: A+Ox3, euthymic affect Lymphatic: no cervical or axillary lymphadenopathy Results & Data Results & Data ([facility]) Vital Signs (Past 12 Hours) Vital Signs Temp Pulse Pulse Resp BP Pulse Ox 07/03/20 08:00 81 07/03/20 07:58 36.7 C 80 20 157/86 H 93 Laboratory Results [facility] 07/03/20 05:19 Sodium 140 Potassium 3.9 Chloride 109 H Carbon Dioxide 28 BUN 19 H Creatinine 2.09 H Glucose 59 L Calcium 7.9 L Medications Administered Current Inpatient Medications Acetaminophen (Acetaminophen 500 Mg Tab) 1,000 mg PO Q8H [facility] Stop: 07/15/20 17:29 Last Admin: 07/03/20 08:12 Dose: 1,000 mg Documented by: Betamethasone Valerate (Betamethasone Suzanne 0.1% Cr 15 Gm) 1 appln EXT BID [facility] Stop: 07/28/20 15:59 Last Admin: 07/03/20 07:56 Dose: 1 appln Documented by: Dextrose (Dextrose 50% 50 Ml Syringe) 25 - 50 ml IV UD PRN; Protocol PRN Reason: Hypoglycemia Protocol Stop: 07/22/20 20:59 Enoxaparin Sodium (Enoxaparin Inj 40 Mg/0.4 Ml Syr) 40 mg SQ QAM MARY Stop: 07/25/20 08:59 Last Admin: 07/03/20 08:05 Dose: 40 mg Documented by: Fludrocortisone Acetate (Fludrocortisone Acetate 0.1 Mg Tab) 0.25 mg PO QAM [facility] Stop: 08/01/20 17:29 Last Admin: 07/03/20 07:54 Dose: 0.25 mg Documented by: Gabapentin (Gabapentin 300 Mg Cap) 300 mg PO TID MARY Stop: 07/11/20 08:59 Last Admin: 07/03/20 13:25 Dose: 300 mg Documented by: Glucagon (Glucagon For Inj 1 Mg Vial) 1 mg IM UD PRN; Protocol PRN Reason: Hypoglycemia Protocol Stop: 07/22/20 20:59 Glucose (Glucose 40% Gel 15 Gm Tube) 15 - 30 gm PO UD PRN; Protocol PRN Reason: Hypoglycemia Protocol Stop: 07/22/20 20:59 Glucose (Glucose 10 Tabs/Tube) 4 - 8 tabs PO UD PRN; Protocol PRN Reason: Hypoglycemia Protocol Stop: 07/22/20 20:59 Heparin Sodium (Beef Lung) (Heparin 10 Unit/Ml 5 Ml Flush) 5 ml FLUSH PRN PRN PRN Reason: Flush Stop: 07/03/20 22:44 Lorazepam (Ativan) 0.25 mg in 0.5 mls @ 0.5 mls/min IV Q6H PRN PRN Reason: Anxiety/Agitation Stop: 07/21/20 08:58 Last Admin: 06/24/20 02:13 Dose: 0.5 mls/min Documented by: Ampicillin Sodium/Sulbactam Sodium 3,000 mg/ Sodium Chloride 108 mls @ 200 mls/hr IV Q6H [facility]; Protocol Stop: 07/08/20 06:59 Last Infusion: 07/03/20 14:39 Dose: Infused Documented by: Iron Sucrose 300 mg/ Sodium (Chloride) 265 mls @ 176.667 mls/hr IV DAILY@0800 [facility]; Protocol Stop: 07/04/20 09:29 Last Infusion: 07/03/20 10:33 Dose: Infused Documented by: Furosemide 30 mg/ Syringe 3 mls @ 4 mls/min IV BID MARY Stop: 08/02/20 20:59 Insulin Aspart (Insulin Aspart 100 Units/Ml 3 Ml Pen) 0 units SC [facility]; Protocol Stop: 07/25/20 07:29 Last Admin: 07/03/20 12:15 Dose: Not Given Documented by: Insulin Glargine (Insulin Glargine Solostar 100 Units/Ml 3 Ml Pen) 7 units SC [facility]; Protocol Stop: 07/29/20 08:59 Last Admin: 07/03/20 09:56 Dose: 7 units Documented by: Miscellaneous (Carbohydrates For Hypoglycemia ) 15 - 30 gm PO UD PRN PRN Reason: Hypoglycemia Treatment Stop: 07/22/20 20:59 Last Admin: 06/30/20 17:05 Dose: 15 gm Documented by: Miscellaneous Information (Pharmacy Glycemic Mgmt Consult) 1 ea N/A UD PRN PRN Reason: Consult Stop: 07/24/20 07:33 Ondansetron HCl (Ondansetron Inj 2 Mg/Ml 2 Ml Vial) 4 mg IV Q8H PRN PRN Reason: nausea or vomiting Stop: 07/25/20 14:14 Last Admin: 07/01/20 17:21 Dose: 4 mg Documented by: Oxycodone HCl (Oxycodone Hcl Ir 5 Mg Tab (Immediate Release)) 5 mg PO Q6H PRN PRN Reason: Pain Stop: 07/10/20 14:32 Last Admin: 07/03/20 07:53 Dose: 5 mg Documented by: Phenol (Chloraseptic 1.4% Soln 180 Ml Btl) 2 sprays MT Q4H PRN PRN Reason: sore thorat Stop: 07/28/20 14:45 Last Admin: 06/28/20 15:19 Dose: 2 sprays Documented by: Polyethylene Glycol (Polyethylene (Miralax) 17 Gm Pack) 17 gm PO Q6H PRN PRN Reason: Constipation Stop: 07/13/20 18:55 Last Admin: 06/19/20 15:59 Dose: 17 gm Documented by: Potassium Chloride (Potassium Chloride Crtab 20 Meq Tabcr) 20 meq PO BID MARY Stop: 07/08/20 10:29 Last Admin: 07/03/20 08:06 Dose: 20 meq Documented by: Senna/Docusate Sodium (Docusate Sodium/Senna 50/8.6mg Tab) 1 tab PO QAM MARY Stop: 07/14/20 08:59 Last Admin: 07/03/20 08:12 Dose: 1 tab Documented by: Vitamin D (Cholecalciferol 1,000 Units 25 Mcg Tab) 1,000 units PO QAM MARY Stop: 07/12/20 18:29 Last Admin: 07/03/20 08:06 Dose: 1,000 units Documented by: (1) CKD (chronic kidney disease), stage III Chronic kidney disease stage 3 subtype: stage 3b (GFR 30-44) Qualified Code(s): N18.32 - Chronic kidney disease, stage 3b
--- NOTE | 2020-07-03 17:03 | Nephrology Progress Note ---
Date of Service July 03, 2020 Assessment & Plan (1) CKD (chronic kidney disease), stage III: Per hospitalist on paperwork from admission, baseline creatinine 2.3 in 12/2019. No OP/prior to admission creatinine documented. Pt presented with creatinine 2.5 on 05/22; then bumped to 05/27 in mid to low 3s. peaked at 4.5 on 06/02; creat under 3 since 06/10; at last labs on 06/29 in low 2's, at baseline. uacm w/ 3+ dipstick protein, 1+ blood, consistent with even 2018 sediment; no infection or other inflammation. pt is open to dialysis if need arises; though he is doing better from renal standpoint than earlier this month -no longer on FR and none indicated (he desats w/ po) -right now needs bmp each am -labs stable after IV contrast exposure 48 hrs back > back on IV lasix and 1.1L negative past 24 hrs; today changed lasix dose to 30 mg IV bid -- since there is plan to d/c lonny, will make it bid 17 >>CLINICAL PROJECT COORDINATOR was on gabapentin 600 mg qid; so we lowered significantly mid Nov d/t [id number]; now back up to 300 mg tid and tolerating; do not believe this medication would help pleuritic chest pain which he again c/o to me today but could consider resuming OP dose when/if appropriate (2) Orthostatic hypotension: with labile BP reported CLINICAL PROJECT COORDINATOR; but here BP w/ stable elevation since he is essentially bedbound on standing /longwall foreman fludrocortisone prior to admission. s/p course of dexamethasone >>fludro stopped today by another provider but I resumed it -lowered fludro to 0.25 mg daily on 07/02 (longwall foreman steroid user on 0.3 mg daily x months at least) and plan slow taper w/ dosing stepdown q 2-3 wks -stopped ACEI at tihs point (3) COVID-19: on high flow 02 for a few weeks now and still dependent; w/ near intubation / code purple for hypoxia 06/01 AM; ICU status downgraded 06/03; recurrent hypoxemic episodes corrected with self-proning >> he has been on 6L or more 02 continuously since 05/28; currently on 15L/min on oxymask -f/u CT results 06/30 >> remarkable for ERASMO abscess c/w necrotizing pneumonia; increasing BL pl effusions and multifocal airspace opacities >> per inf dzs and primary service (4) Anemia: has had pRBC this admission on 06/22 >> t stn same day 6% -recheck cbc in am -cont venofer load w/ 2 x 200 mg daily doses; will order 300 mg daily starting today x 2 more days Admission and Anticipated Discharge Date Admission Date: May 22, 2020 Subjective seen on rounds at 1040; breathing at basliene; taking small amount of po; no uncontrolled pain; does find mukherjee bothersome but states he doesn't want it d/c'd, just wondering if can exchange Review of Systems Review of Systems: All systems reviewed & are unremarkable except as noted in HPI & below Physical Exam Constitutional: well developed, well nourished and + thin; no acute distress Eyes: EOM intact bilaterally ENMT: Ears: no external ear abnormality Nose: no external nose abnormality Mouth: + dry oral mucous membranes Neck: no nuchal rigidity Respiratory: normal respiratory effort (on high flow 02; desats readily in past but not today w/ speech), + cough (w/ repeated deep inspiration; deep/dry) and able to speak in complete sentences; no labored breathing Auscultation: + diminished lung sounds and + crackles (diffusely through posterior case) Cardiovascular: RRR, no murmur, no edema Rate/Rhythm: regular rate and regular rhythm Gastrointestinal (Abdomen): Inspection/Auscultation: abdomen normal to inspection and normal bowel sounds Percussion/Palpation: abdomen soft; abdomen nontender Musculoskeletal: Extremities: strength 5/5 throughout Skin: no rashes, warm and dry Neurologic: gutierrez, fluent speech, tremor Psychiatric: A+Ox3, euthymic affect Orientation: alert and oriented x 3 Eye Contact: good eye contact Affect: + anxious affect and + flat affect Genitourinary: mukherjee w/ ample yellow urine Results & Data ([facility]) Vital Signs (Past 12 Hours) Vital Signs Temp Pulse Pulse Resp BP Pulse Ox 07/03/20 15:00 74 07/03/20 08:00 81 07/03/20 07:58 36.7 C 80 20 157/86 H 93 Laboratory Results 07/02/20 06:05 12/11/20 05:19 (1) CKD (chronic kidney disease), stage III Chronic kidney disease stage 3 subtype: stage 3b (GFR 30-44) Qualified Code(s): N18.32 - Chronic kidney disease, stage 3b (2) Anemia Anemia type: iron deficiency Iron deficiency anemia type: unspecified iron deficiency Qualified Code(s): D50.9 - Iron deficiency anemia, unspecified
[2020-07-03] MEDS: FUROSEMIDE 30 MG in SYRINGE 0 ML IV SCH (18:41)
[2020-07-03] MEDS ORDERED: FUROSEMIDE 30 MG in SYRINGE 0 ML IV SCH (21:00)
[2020-07-03] MEDS: ONDANSETRON INJ 2 MG/ML 2 ML VIAL IV PRN (23:44)
[2020-07-04] MEDS: ACETAMINOPHEN 500 MG TAB PO SCH ×3 (01:30→16:43)
[2020-07-04] MEDS: AMPICILLIN/SULBACTAM SOD 3,000 MG in 0.9 % SODIUM CHLORIDE 100 ML IV SCH ×3 (06:21→18:24)
[2020-07-04] MEDS: IRON SUCROSE 300 MG in SODIUM CHLORIDE 0.9% 250 ML IV SCH (08:02)
[2020-07-04] MEDS: GABAPENTIN 300 MG CAP PO SCH ×3 (08:03→21:18)
[2020-07-04] MEDS: ENOXAPARIN INJ 40 MG/0.4 ML SYR SQ SCH (08:03)
[2020-07-04] MEDS: oxyCODONE HCL IR 5 MG TAB (IMMEDIATE RELEASE) PO PRN ×2 (08:03→16:47)
[2020-07-04] MEDS: FUROSEMIDE 30 MG in SYRINGE 0 ML IV SCH ×2 (08:04→16:48)
[2020-07-04] MEDS: BETAMETHASONE VAL 0.1% CR 15 GM EXT SCH ×2 (08:04→21:17)
[2020-07-04] MEDS: FLUDROCORTISONE ACETATE 0.1 MG TAB PO SCH (08:04)
[2020-07-04] MEDS: CHOLECALCIFEROL 1,000 UNITS 25 MCG TAB PO SCH (08:05)
[2020-07-04] MEDS: DOCUSATE SODIUM/SENNA 50/8.6MG TAB PO SCH (08:06)
[2020-07-04] MEDS: INSULIN ASPART 100 UNITS/ML 3 ML PEN SC SCH ×4 (08:06→21:19)
[2020-07-04] MEDS: POTASSIUM CHLORIDE CRTAB 20 MEQ TABCR PO SCH ×2 (08:06→21:19)
[2020-07-04] MEDS ORDERED: INSULIN GLARGINE SOLOSTAR 100 UNITS/ML 3 ML PEN SC SCH (13:00)
--- NOTE | 2020-07-04 14:55 | Hospitalist Progress Note ---
Date of Service July 04, 2020 Assessment & Plan (1) Acute respiratory failure with hypoxia: Acute respiratory distress syndrome with severe hypoxic respiratory failure on admission secondary to COVID-19 infection Received one unit of conv plasma on 05/27. Steroids x 3 weeks have been tapered off. Was not a candidate for remdesivir 2/2 renal failure. Continues on significant oxygen supplementation. CT of the chest without contrast on 06/23 revealed multifocal airspace consolidation with necrotizing/cavitary pneumonia in the ERASMO, and fluid in the distal esophagus. Repeat CT scan with the contrast showed-bilateral extensive necrotizing pneumonia,bilateral pleural effusion and left upper lobe lung abscess. CT scan was negative for any acute pulmonary embolism Appreciate pulmonary input and recommendation Appreciate ID input and recommendation Been on intravenous Unasyn and will continue antibiotic for 3 to 6 weeks HIV screening is negative. Results were discussed with patient verbalized understanding. Still requiring high flow oxygen up to 15 L/min to maintain saturation. 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 (Doxycycline 100mg BID 5 dys, stopped for 2, resumed 05/30 for 7 full days, Ceftriaxone x 14 days, Cefepime for an additional 3 days after the ceftriaxone completed, and Flagyl for 8 days.) Now with bacterial superinfection likely secondary to aspiration with gram-negative and anaerobic coverage. Cont care plan as outlined above with supportive care measures. Patient will need at least 2 weeks total of antibiotics in the setting of necrotizing pneumonia. As above (3) Diabetes mellitus type I: brittle diabetic with difficult to control glucose. Glycemic pharmacist managing and has his on basal bolus SQ insulin at this point. Controlled for now. (4) CKD (chronic kidney disease), stage III: Resolved to baseline renal function. Patient has Stage 3 CKD. With contrast administration being given, have encouraged him to hydrate well and will hold am lasix dose. Will check PRP-kidney function remains stable We will check PRP tomorrow (5) Diabetic neuropathy: Persistent. Home dose gabapentin was 600mg PO QID decreased to 300mg PO BID because of renal insufficiency. Cont with gabapentin 300mg PO TID dosing for now with current renal function. Cont Tylenol and PRN oxy for discomfort. He is starting to become more comfortable. May need to consider a different option than oxycodone for long term care pharmacist management if not offered by the [facility] going home but for now would just get him through this respiratory illness. (6) Hypothyroidism: chronic, stable, Continue levothyroxine per home regimen. (7) Depression: chronic, stable. Cont Prozac per home regimen. (8) Psoriasis: steroid cream BID x 2 weeks. Extensor plaques are improving on exam. (9) DVT prophylaxis: Lovenox DNR/DNI Dipso-Uncertain at this time. Pt continues to remain hypoxic but is overall improved since admission. Patient will need at least 1 more week of antibiotics in the setting of necrotizing pneumonia. Will repeat CT scan of the chest in am with contrast to ensure no worsening picture with persistent severe hypoxia and worsening SOB episodes per patient. Overall prognosis remains poor Admission and Anticipated Discharge Date Admission Date: May 22, 2020 Subjective 07/01/2020 The patient was seen and examined in medical telemetry unit His condition has been deteriorating and he still requiring high flow oxygen up to 15 L to maintain saturation Denies any fever and/or chills 07/02/2020 The patient was seen and examined in medical telemetry unit He remains critical but stable Desaturates with any activity and has been requiring high flow oxygen up to 15 L/min to maintain saturation 07/03/2020 The patient was seen and examined in medical telemetry unit He is seems to be a little bit better today Does not have any shortness of breath at rest and denies any cough Still requiring high flow oxygen to maintain saturation 07/04/2020 The patient was seen and examined in medical telemetry unit He remains critical but stable Gets very short of breath with minimal exertion and requiring high flow oxygen to maintain saturation Review of Systems Review of Systems: All systems reviewed and are unremarkable except as noted below Constitutional: + weakness Respiratory: + cough, + dyspnea and + dyspnea on exertion Neurologic: + generalized weakness; no tremor(s), no headache(s) and no confusion Physical Exam Physical Exam: Lying in bed without significant distress but has oxygen mask on Constitutional: well developed, well nourished, + acute distress (Due to shortness of breath) and + ill appearing Eyes: PERRL, conjunctivae normal, anicteric sclerae ENMT: external ear and nose normal, oropharynx normal Neck: trachea midline, no thyromegaly Respiratory: + respiratory distress and + uses accessory muscles; no labored breathing and no cough Auscultation: + diminished lung sounds, + crackles (At the bases) and + wheezes Cardiovascular: Rate/Rhythm: regular rate and regular rhythm Heart Sounds: no murmur Extremities: + edema (Trace edema bilaterally) Gastrointestinal (Abdomen): Inspection/Auscultation: normal bowel sounds; abdomen not distended Percussion/Palpation: abdomen soft; abdomen nontender Psychiatric: A+Ox3, euthymic affect Lymphatic: no cervical or axillary lymphadenopathy Results & Data Results & Data ([facility]) Vital Signs (Past 12 Hours) Vital Signs Temp Pulse Pulse Resp BP Pulse Ox 07/04/20 08:07 37.4 C 88 16 98/79 L 92 07/04/20 07:00 86 07/04/20 03:35 37.7 C H 93 H 18 143/94 H 92 Medications Administered Current Inpatient Medications Acetaminophen (Acetaminophen 500 Mg Tab) 1,000 mg PO Q8H [facility] Stop: 07/15/20 17:29 Last Admin: 07/04/20 08:02 Dose: 1,000 mg Documented by: Betamethasone Valerate (Betamethasone Suzanne 0.1% Cr 15 Gm) 1 appln EXT BID [facility] Stop: 07/28/20 15:59 Last Admin: 07/04/20 08:04 Dose: 1 appln Documented by: Dextrose (Dextrose 50% 50 Ml Syringe) 25 - 50 ml IV UD PRN; Protocol PRN Reason: Hypoglycemia Protocol Stop: 07/22/20 20:59 Enoxaparin Sodium (Enoxaparin Inj 40 Mg/0.4 Ml Syr) 40 mg SQ QAM [facility] Stop: 07/25/20 08:59 Last Admin: 07/04/20 08:03 Dose: 40 mg Documented by: Fludrocortisone Acetate (Fludrocortisone Acetate 0.1 Mg Tab) 0.25 mg PO QAM [facility] Stop: 08/01/20 17:29 Last Admin: 07/04/20 08:04 Dose: 0.25 mg Documented by: Gabapentin (Gabapentin 300 Mg Cap) 300 mg PO TID [facility] Stop: 07/11/20 08:59 Last Admin: 07/04/20 13:51 Dose: 300 mg Documented by: Glucagon (Glucagon For Inj 1 Mg Vial) 1 mg IM UD PRN; Protocol PRN Reason: Hypoglycemia Protocol Stop: 07/22/20 20:59 Glucose (Glucose 40% Gel 15 Gm Tube) 15 - 30 gm PO UD PRN; Protocol PRN Reason: Hypoglycemia Protocol Stop: 07/22/20 20:59 Glucose (Glucose 10 Tabs/Tube) 4 - 8 tabs PO UD PRN; Protocol PRN Reason: Hypoglycemia Protocol Stop: 07/22/20 20:59 Lorazepam (Ativan) 0.25 mg in 0.5 mls @ 0.5 mls/min IV Q6H PRN PRN Reason: Anxiety/Agitation Stop: 07/21/20 08:58 Last Admin: 06/24/20 02:13 Dose: 0.5 mls/min Documented by: Ampicillin Sodium/Sulbactam Sodium 3,000 mg/ Sodium Chloride 108 mls @ 200 mls/hr IV Q6H [facility]; Protocol Stop: 07/08/20 06:59 Last Admin: 07/04/20 13:50 Dose: 200 mls/hr Documented by: Furosemide 30 mg/ Syringe 3 mls @ 4 mls/min IV BID17 [facility] Stop: 08/02/20 17:44 Last Admin: 07/04/20 08:04 Dose: 4 mls/min Documented by: Insulin Aspart (Insulin Aspart 100 Units/Ml 3 Ml Pen) 0 units SC ACHS [facility]; Protocol Stop: 07/25/20 07:29 Last Admin: 07/04/20 14:03 Dose: 1 units Documented by: Insulin Glargine (Insulin Glargine Solostar 100 Units/Ml 3 Ml Pen) 7 units SC QAM [facility]; Protocol Stop: 07/29/20 08:59 Last Admin: 07/03/20 09:56 Dose: 7 units Documented by: Insulin Glargine (Insulin Glargine Solostar 100 Units/Ml 3 Ml Pen) 8 units SC 1300 [facility] Stop: 07/04/20 15:00 Last Admin: 07/04/20 14:04 Dose: 8 units Documented by: Miscellaneous (Carbohydrates For Hypoglycemia ) 15 - 30 gm PO UD PRN PRN Reason: Hypoglycemia Treatment Stop: 07/22/20 20:59 Last Admin: 06/30/20 17:05 Dose: 15 gm Documented by: Miscellaneous Information (Pharmacy Glycemic Mgmt Consult) 1 ea N/A UD PRN PRN Reason: Consult Stop: 07/24/20 07:33 Ondansetron HCl (Ondansetron Inj 2 Mg/Ml 2 Ml Vial) 4 mg IV Q8H PRN PRN Reason: nausea or vomiting Stop: 07/25/20 14:14 Last Admin: 07/03/20 23:44 Dose: 4 mg Documented by: Oxycodone HCl (Oxycodone Hcl Ir 5 Mg Tab (Immediate Release)) 5 mg PO Q6H PRN PRN Reason: Pain Stop: 07/10/20 14:32 Last Admin: 07/04/20 08:03 Dose: 5 mg Documented by: Phenol (Chloraseptic 1.4% Soln 180 Ml Btl) 2 sprays MT Q4H PRN PRN Reason: sore thorat Stop: 07/28/20 14:45 Last Admin: 06/28/20 15:19 Dose: 2 sprays Documented by: Polyethylene Glycol (Polyethylene (Miralax) 17 Gm Pack) 17 gm PO Q6H PRN PRN Reason: Constipation Stop: 07/13/20 18:55 Last Admin: 06/19/20 15:59 Dose: 17 gm Documented by: Potassium Chloride (Potassium Chloride Crtab 20 Meq Tabcr) 20 meq PO BID [facility] Stop: 07/08/20 10:29 Last Admin: 07/04/20 08:06 Dose: 20 meq Documented by: Senna/Docusate Sodium (Docusate Sodium/Senna 50/8.6mg Tab) 1 tab PO QAM [facility] Stop: 07/14/20 08:59 Last Admin: 07/04/20 08:06 Dose: 1 tab Documented by: Vitamin D (Cholecalciferol 1,000 Units 25 Mcg Tab) 1,000 units PO QAM [facility] Stop: 07/12/20 18:29 Last Admin: 07/04/20 08:05 Dose: 1,000 units Documented by: (1) CKD (chronic kidney disease), stage III Chronic kidney disease stage 3 subtype: stage 3b (GFR 30-44) Qualified Code(s): N18.32 - Chronic kidney disease, stage 3b
--- NOTE | 2020-07-04 15:14 | Nephrology Progress Note ---
Date of Service July 04, 2020 Assessment & Plan (1) CKD (chronic kidney disease), stage III: Per hospitalist on paperwork from admission, baseline creatinine 2.3 in 12/2019. No OP/prior to admission creatinine documented. Pt presented with creatinine 2.5 on 05/22; then bumped to 05/27 in mid to low 3s. peaked at 4.5 on 06/02; creat under 3 since 06/10; at last labs on 06/29 in low 2's, at baseline. uacm w/ 3+ dipstick protein, 1+ blood, consistent with even 2018 sediment; no infection or other inflammation. pt is open to dialysis if need arises; though he is doing better from renal standpoint than earlier this month -labs stable after IV contrast exposure. Creatinine of 2 yesterday. -Continue Lasix 30 mg IV twice daily. 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 s/p course of de xamethasone > BP remains soft -Continue low-dose fludrocortisone (3) COVID-19: on high flow 02 for a few weeks now and still dependent; w/ near intubation / code purple for hypoxia 06/01 AM; ICU status downgraded 06/03; recurrent hypoxemic episodes corrected with self-proning >> he has been on 6L or more 02 continuously since 05/28; currently on 15L/min on oxymask -f/u CT results 06/30 >> remarkable for ERASMO abscess c/w necrotizing pneumonia; increasing BL pl effusions and multifocal airspace opacities >> per inf dzs and primary service (4) Anemia: has had pRBC this admission on 06/22 >> t stn same day 6% -recheck cbc in am -cont venofer load w/ 2 x 200 mg daily doses; will continue 300 mg daily Admission and Anticipated Discharge Date Admission Date: May 22, 2020 Subjective Patient is drowsy, unable to give history. Seen for CKD and hypernatremia. Review of Systems Review of Systems: Unobtainable due to cognitive status Physical Exam Physical Exam: General exam: Appears comfortable, no acute distress HEENT: Pupils are equal and reactive to light Neck: No JVD, neck is supple trachea is midline Respiratory system: Clear breath sounds bilaterally. Gastrointestinal: Abdomen is soft, non distended, non tender, bowel sounds are present CVS: Regular rate and rhythm. No murmurs, rubs or gallops Musculoskeletal: No joint or muscle tenderness Extremities: Non tender, no edema, peripheral pulses are present Neuro: Drowsy but arousable, no tremors, no focal neurological deficits Skin: No rashes Results & Data ([facility]) Vital Signs (Past 12 Hours) Vital Signs Temp Pulse Pulse Resp BP Pulse Ox 07/04/20 08:07 37.4 C 88 16 98/79 L 92 07/04/20 07:00 86 07/04/20 03:35 37.7 C H 93 H 18 143/94 H 92 Laboratory Results 07/03/20 05:19 (1) CKD (chronic kidney disease), stage III Chronic kidney disease stage 3 subtype: stage 3b (GFR 30-44) Qualified Code(s): N18.32 - Chronic kidney disease, stage 3b (2) Anemia Anemia type: iron deficiency Iron deficiency anemia type: unspecified iron deficiency Qualified Code(s): D50.9 - Iron deficiency anemia, unspecified
[2020-07-05] MEDS: oxyCODONE HCL IR 5 MG TAB (IMMEDIATE RELEASE) PO PRN ×3 (01:44→17:08)
[2020-07-05] MEDS: AMPICILLIN/SULBACTAM SOD 3,000 MG in 0.9 % SODIUM CHLORIDE 100 ML IV SCH ×4 (01:45→18:36)
[2020-07-05] MEDS: LORazepam 0.25 MG/0.5 ML VIAL IV PRN ×2 (01:52→20:19)
[2020-07-05] MEDS: ACETAMINOPHEN 500 MG TAB PO SCH ×3 (04:00→17:09)
[2020-07-05 07:06] LABS: Basophils # (auto) 0.11 K/uL (0-0.2); Basophils % (auto) 0.8 %; Eosinophils # (auto) 0.42 K/uL (0-0.5); Eosinophils % (auto) 3.1 %; Hematocrit (blood only) 27.7 % (42-52); Hemoglobin 8.8 g/dL (14.0-18.0); Immature Granulocytes # (auto) 0.18 K/uL (0.00-0.02); Immature Granulocytes % (auto) 1.3 %; Lymphocytes # (auto) 1.49 K/uL (1.2-3.4); Lymphocytes % (auto) 11.1 %; Mean Corpuscular Hemoglobin 27.5 pg (25-34); Mean Corpuscular Hgb Conc 31.8 g/dL (32-36); Mean Corpuscular Volume 86.6 fL (80-100); Mean Platelet Volume 8.6 fL (7.4-10.4); Monocytes # (auto) 1.15 K/uL (0.11-0.59); Monocytes % (auto) 8.5 %; Neutrophils # (auto) 10.13 K/uL (1.4-6.5); Neutrophils % (auto) 75.2 %; Platelet Count 643 K/uL (130-400); RDW Coefficient of Variation 15.9 % (11.5-14.5); RDW Standard Deviation 50.5 fL (36.4-46.3); White Blood Count 13.48 K/uL (4.8-10.8)
[2020-07-05 07:44] LABS: BUN Creatinine Ratio 10.8 (10-20); Calcium 7.6 mg/dl (8.5-10.1); Creatinine Clr Calc Pharmacy 38.9 ml/min; Est GFR (African American) 34.9; Est GFR (Non-African American) 30.1; Potassium 3.5 mmol/L (3.5-5.1)
[2020-07-05] MEDS: FUROSEMIDE 30 MG in SYRINGE 0 ML IV SCH ×2 (09:34→17:09)
[2020-07-05] MEDS: ENOXAPARIN INJ 40 MG/0.4 ML SYR SQ SCH (09:35)
[2020-07-05] MEDS: FLUDROCORTISONE ACETATE 0.1 MG TAB PO SCH (09:36)
[2020-07-05] MEDS: BETAMETHASONE VAL 0.1% CR 15 GM EXT SCH ×2 (09:36→20:36)
[2020-07-05] MEDS: POTASSIUM CHLORIDE CRTAB 20 MEQ TABCR PO SCH ×2 (09:36→20:34)
[2020-07-05] MEDS: CHOLECALCIFEROL 1,000 UNITS 25 MCG TAB PO SCH (09:36)
[2020-07-05] MEDS: DOCUSATE SODIUM/SENNA 50/8.6MG TAB PO SCH (09:37)
[2020-07-05] MEDS: GABAPENTIN 300 MG CAP PO SCH ×3 (09:37→20:35)
[2020-07-05] MEDS: ONDANSETRON INJ 2 MG/ML 2 ML VIAL IV PRN (09:44)
--- NOTE | 2020-07-05 09:50 | XRay Report ---
XR chest 1V portable HISTORY: Pneumonia. Follow-up. Shortness of breath. pleural effusions COMPARISON: Chest CTA 07/01/2020. FINDINGS: No change in the near diffuse bilateral airspace opacities. No pneumothorax. Small bilatera l pleural effusions and cardiomegaly persist. IMPRESSION: No change in the extensive bilateral airspace opacities and small bilateral pleural effusions. This l ikely represents a pneumonia. ACT 112: Negative or not required by law. Electronically signed by: Tani Contreras M.D. 07/05/2020 9:49 AM
[2020-07-05] MEDS: INSULIN GLARGINE SOLOSTAR 100 UNITS/ML 3 ML PEN SC SCH ×2 (09:55→20:31)
[2020-07-05] MEDS: INSULIN ASPART 100 UNITS/ML 3 ML PEN SC SCH ×4 (09:55→20:25)
--- NOTE | 2020-07-05 11:33 | Pulmonology Progress Note ---
Date of Service July 05, 2020 Assessment & Plan (1) Necrotizing pneumonia: Impression: 55-year-old male with Covid pneumonia and now appears to have a secondary lung abscess/pneumonia with fluid overload perpetuating his hypoxemic respiratory failure. Recommendations: 1. Recommend continued aggressive diuresis. Nephrology is following. Continue to try and target -1 L per 24 hours. If more aggressive diuresis resulted in decline in renal function and progressive need for dialysis, I think that is a necessary evil at this point in time as the patient has been in the hospital for over a month and needs aggressive fluid removal to optimize his pulmonary mechanics. 2. Hypoxemic respiratory failure: Suspect that this is multifactorial due to combinations of pulmonary fibrosis to the patient's recent viral pneumonia, fluid overload given the bilateral pleural effusions, and infection given the lung abscess and elevated procalcitonin. See comments below. Wean oxygen as tolerated. 3. Bilateral pleural effusions: Would not recommend thoracentesis at this point time if the patient can tolerate diuresis. If kidney function becomes problematic to the point that we cannot diurese the patient without impending dialysis, could consider thoracentesis at that point time. 4. Lung abscess: The patient is being followed by infectious disease at [facility]. Typically these abscesses require a prolonged course of antimicrobial therapy often 3 to 6 weeks. Will defer to infectious disease choice of antimicrobial agents and duration of therapy. He should have follow- up imaging at completion of antimicrobial therapy to evaluate the cavity. Encouragingly, his procalcitonin and white blood cell count are normalizing. Would not recommend IV iron in the setting of a potential active infection. No indication for bronchoscopy currently as it would be unlikely to change control specialist. If the patient's infection can be adequately addressed and treated and he can be diuresed, I suspect that his oxygen requirement will decrease over time. Admission and Anticipated Discharge Date Admission Date: May 22, 2020 Subjective Chart reviewed. 24-hour events noted. Patient offers no new complaints Review of Systems Review of Systems: Please refer to hospitalist note from today. No additions or deletions Physical Exam Constitutional: + ill appearing; no acute distress Neck: trachea midline, no thyromegaly Respiratory: normal respiratory effort Auscultation: + crackles, + rales and + wheezes Cardiovascular: RRR, no murmur, no edema Gastrointestinal (Abdomen): normal bowel sounds, soft, nontender, no hepatosplenomegaly Musculoskeletal: Extremities: extremities normal to inspection Skin: no rashes, warm and dry Neurologic: Nonfocal exam Lymphatic: no cervical lymphadenopathy Results & Data Results & Data ([facility]) Vital Signs (Past 12 Hours) Vital Signs Temp Pulse Pulse Resp BP Pulse Ox 07/05/20 04:50 36.9 C 92 H 18 164/86 H 88 L 07/05/20 04:35 68 07/05/20 00:36 36.4 C L 75 18 156/86 H 92 Laboratory Results 07/05/20 06:57 07/05/20 06:57 Diagnostic Findings Chest x-ray today was independently reviewed. Bilateral interstitial opacities slightly progressed compared to 06/25/2020 are noted with an area of focal consolidation in the lateral aspect of the left upper lobe. Small bilateral effusions again noted PG Care Time/CCT Total # of Minutes Spent Total Time Spent with Patient: Total time spent is greater than 50% in coordination of care (as documented) at patient's floor/unit and/or counseling patient: Coding Level of Care Code 73786 Subseq Hosp Care Lvl 2 Diagnoses Necrotizing pneumonia J85.0
--- NOTE | 2020-07-05 12:45 | Hospitalist Progress Note ---
Date of Service July 05, 2020 Assessment & Plan (1) Acute respiratory failure with hypoxia: Acute respiratory distress syndrome with severe hypoxic respiratory failure on admission secondary to COVID-19 infection Received one unit of conv plasma on 05/27. Steroids x 3 weeks have been tapered off. Was not a candidate for remdesivir 2/2 renal failure. Continues on significant oxygen supplementation. CT of the chest without contrast on 06/23 revealed multifocal airspace consolidation with necrotizing/cavitary pneumonia in the ERASMO, and fluid in the distal esophagus. Repeat CT scan with the contrast showed-bilateral extensive necrotizing pneumonia,bilateral pleural effusion and left upper lobe lung abscess. CT scan was negative for any acute pulmonary embolism Appreciate pulmonary input and recommendation Appreciate ID input and recommendation Been on intravenous Unasyn and will continue antibiotic for 3 to 6 weeks HIV screening is negative. Results were discussed with patient verbalized understanding. Still requiring high flow oxygen up to 15 L/min to maintain saturation. Does not show any improvement at all-we will continue current management Bilateral pleural effusion We will continue with intravenous Lasix and more diuresis No plan for thoracentesis at this time but may require down the line if the condition does not get any better with intravenous Lasix and kidney function deteriorated We will continue aggressive diuresis as per manager outreach and creative recruiter We will continue diuresis-no indication of thoracentesis and/or bronchoscopy as per loan services professional Left upper lobe lung abscess As above Will need prolonged intravenous antibiotic No fever and/or chills and no increase in white count We will continue intravenous antibiotic for now (2) Pneumonia due to COVID-19 virus: He completed a robust antibiotic course while admitted. (Doxycycline 100mg BID 5 dys, stopped for 2, resumed 05/30 for 7 full days, Ceftriaxone x 14 days, Cefepime for an additional 3 days after the ceftriaxone completed, and Flagyl for 8 days.) Now with bacterial superinfection likely secondary to aspiration with gram-negative and anaerobic coverage. Cont care plan as outlined above with supportive care measures. Patient will need at least 2 weeks total of antibiotics in the setting of necrotizing pneumonia. As above (3) Diabetes mellitus type I: brittle diabetic with difficult to control glucose. Glycemic pharmacist managing and has his on basal bolus SQ insulin at this point. Controlled for now. (4) CKD (chronic kidney disease), stage III: Resolved to baseline renal function. Patient has Stage 3 CKD. With contrast administration being given, have encouraged him to hydrate well and will hold am lasix dose. Will check PRP-kidney function remains stable We will check PRP tomorrow-creatinine is slightly higher today is 2.33 (5) Diabetic neuropathy: Persistent. Home dose gabapentin was 600mg PO QID decreased to 300mg PO BID because of renal insufficiency. Cont with gabapentin 300mg PO TID dosing for now with current renal function. Cont Tylenol and PRN oxy for discomfort. He is starting to become more comfortable. May need to consider a different option than oxycodone for fci management if not offered by the [facility] going home but for now would just get him through this respiratory illness. (6) Hypothyroidism: chronic, stable, Continue levothyroxine per home regimen. (7) Depression: chronic, stable. Cont Prozac per home regimen. (8) Psoriasis: steroid cream BID x 2 weeks. Extensor plaques are improving on exam. (9) DVT prophylaxis: Lovenox DNR/DNI Dipso-Uncertain at this time. Pt continues to remain hypoxic but is overall improved since admission. Patient will need at least 1 more week of antibiotics in the setting of necrotizing pneumonia. Will repeat CT scan of the chest in am with contrast to ensure no worsening picture with persistent severe hypoxia and worsening SOB episodes per patient. Overall prognosis remains poor Admission and Anticipated Discharge Date Admission Date: May 22, 2020 Subjective 07/01/2020 The patient was seen and examined in medical telemetry unit His condition has been deteriorating and he still requiring high flow oxygen up to 15 L to maintain saturation Denies any fever and/or chills 07/02/2020 The patient was seen and examined in medical telemetry unit He remains critical but stable Desaturates with any activity and has been requiring high flow oxygen up to 15 L/min to maintain saturation 07/03/2020 The patient was seen and examined in medical telemetry unit He is seems to be a little bit better today Does not have any shortness of breath at rest and denies any cough Still requiring high flow oxygen to maintain saturation 07/04/2020 The patient was seen and examined in medical telemetry unit He remains critical but stable Gets very short of breath with minimal exertion and requiring high flow oxygen to maintain saturation 07/05/2020 The patient was seen and examined in medical telemetry unit He remains critical but stable Still requiring very high dose of oxygen up to 15 L/min via nasal cannula or oxygen mask to maintain saturation Denies any other significant symptoms Review of Systems Review of Systems: All systems reviewed and are unremarkable except as noted below Constitutional: + weakness Respiratory: + cough, + dyspnea and + dyspnea on exertion Neurologic: + generalized weakness; no tremor(s), no headache(s) and no confusion Physical Exam Physical Exam: Lying in bed without significant distress but has oxygen mask on Constitutional: well developed, well nourished, + acute distress (Due to shortness of breath) and + ill appearing Eyes: PERRL, conjunctivae normal, anicteric sclerae ENMT: external ear and nose normal, oropharynx normal Neck: trachea midline, no thyromegaly Respiratory: + respiratory distress and + uses accessory muscles; no labored breathing and no cough Auscultation: + diminished lung sounds, + crackles (At the bases) and + wheezes Cardiovascular: Rate/Rhythm: regular rate and regular rhythm Heart Sounds: no murmur Extremities: + edema (Trace edema bilaterally) Gastrointestinal (Abdomen): Inspection/Auscultation: normal bowel sounds; abdomen not distended Percussion/Palpation: abdomen soft; abdomen nontender Musculoskeletal: No acute arthritis in any joints Neurologic: Alert, awake and oriented. Remains extremely weak and lethargic Psychiatric: A+Ox3, euthymic affect Lymphatic: no cervical or axillary lymphadenopathy Results & Data Results & Data ([facility]) Vital Signs (Past 12 Hours) Vital Signs Temp Pulse Pulse Resp BP BP Pulse Ox 07/05/20 12:28 36.4 C L 78 24 152/83 H 92 07/05/20 04:50 36.9 C 92 H 18 164/86 H 88 L 07/05/20 04:35 68 Laboratory Results Short CBC 07/05/20 Range/Units 06:57 WBC 13.48 H (4.8-10.8) K/uL Hgb 8.8 L (14.0-18.0) g/dL Hct 27.7 L (42-52) % Plt Count 643 H (130-400) K/uL BMP 07/05/20 06:57 Sodium 141 Potassium 3.5 Chloride 107 Carbon Dioxide 26 BUN 25 H Creatinine 2.33 H Glucose 169 H Calcium 7.6 L Medications Administered Current Inpatient Medications Acetaminophen (Acetaminophen 500 Mg Tab) 1,000 mg PO Q8H MARY Stop: 07/15/20 17:29 Last Admin: 07/05/20 09:35 Dose: 1,000 mg Documented by: Betamethasone Valerate (Betamethasone Suzanne 0.1% Cr 15 Gm) 1 appln EXT BID [facility] Stop: 07/28/20 15:59 Last Admin: 07/05/20 09:36 Dose: 1 appln Documented by: Dextrose (Dextrose 50% 50 Ml Syringe) 25 - 50 ml IV UD PRN; Protocol PRN Reason: Hypoglycemia Protocol Stop: 07/22/20 20:59 Enoxaparin Sodium (Enoxaparin Inj 40 Mg/0.4 Ml Syr) 40 mg SQ QAM [facility] Stop: 07/25/20 08:59 Last Admin: 07/05/20 09:35 Dose: 40 mg Documented by: Fludrocortisone Acetate (Fludrocortisone Acetate 0.1 Mg Tab) 0.25 mg PO QAM [facility] Stop: 08/01/20 17:29 Last Admin: 07/05/20 09:36 Dose: 0.25 mg Documented by: Gabapentin (Gabapentin 300 Mg Cap) 300 mg PO TID [facility] Stop: 07/11/20 08:59 Last Admin: 07/05/20 09:37 Dose: 300 mg Documented by: Glucagon (Glucagon For Inj 1 Mg Vial) 1 mg IM UD PRN; Protocol PRN Reason: Hypoglycemia Protocol Stop: 07/22/20 20:59 Glucose (Glucose 40% Gel 15 Gm Tube) 15 - 30 gm PO UD PRN; Protocol PRN Reason: Hypoglycemia Protocol Stop: 07/22/20 20:59 Glucose (Glucose 10 Tabs/Tube) 4 - 8 tabs PO UD PRN; Protocol PRN Reason: Hypoglycemia Protocol Stop: 07/22/20 20:59 Lorazepam (Ativan) 0.25 mg in 0.5 mls @ 0.5 mls/min IV Q6H PRN PRN Reason: Anxiety/Agitation Stop: 07/21/20 08:58 Last Admin: 07/05/20 01:52 Dose: 0.5 mls/min Documented by: Ampicillin Sodium/Sulbactam Sodium 3,000 mg/ Sodium Chloride 108 mls @ 200 mls/hr IV Q6H [facility]; Protocol Stop: 07/08/20 06:59 Last Infusion: 07/05/20 08:28 Dose: Infused Documented by: Furosemide 30 mg/ Syringe 3 mls @ 4 mls/min IV BID17 MARY Stop: 08/02/20 17:44 Last Admin: 07/05/20 09:34 Dose: 4 mls/min Documented by: Insulin Aspart (Insulin Aspart 100 Units/Ml 3 Ml Pen) 0 units SC ACHS [facility]; Protocol Stop: 07/25/20 07:29 Last Admin: 07/05/20 09:55 Dose: 1 units Documented by: Insulin Glargine (Insulin Glargine Solostar 100 Units/Ml 3 Ml Pen) 10 units SC QAM [facility]; Protocol Stop: 08/04/20 08:59 Last Admin: 07/05/20 09:55 Dose: 10 units Documented by: Miscellaneous (Carbohydrates For Hypoglycemia ) 15 - 30 gm PO UD PRN PRN Reason: Hypoglycemia Treatment Stop: 07/22/20 20:59 Last Admin: 06/30/20 17:05 Dose: 15 gm Documented by: Miscellaneous Information (Pharmacy Glycemic Mgmt Consult) 1 ea N/A UD PRN PRN Reason: Consult Stop: 07/24/20 07:33 Ondansetron HCl (Ondansetron Inj 2 Mg/Ml 2 Ml Vial) 4 mg IV Q8H PRN PRN Reason: nausea or vomiting Stop: 07/25/20 14:14 Last Admin: 07/05/20 09:44 Dose: 4 mg Documented by: Oxycodone HCl (Oxycodone Hcl Ir 5 Mg Tab (Immediate Release)) 5 mg PO Q6H PRN PRN Reason: Pain Stop: 07/10/20 14:32 Last Admin: 07/05/20 09:34 Dose: 5 mg Documented by: Phenol (Chloraseptic 1.4% Soln 180 Ml Btl) 2 sprays MT Q4H PRN PRN Reason: sore thorat Stop: 07/28/20 14:45 Last Admin: 06/28/20 15:19 Dose: 2 sprays Documented by: Polyethylene Glycol (Polyethylene (Miralax) 17 Gm Pack) 17 gm PO Q6H PRN PRN Reason: Constipation Stop: 07/13/20 18:55 Last Admin: 06/19/20 15:59 Dose: 17 gm Documented by: Potassium Chloride (Potassium Chloride Crtab 20 Meq Tabcr) 20 meq PO BID [facility] Stop: 12/16/20 10:29 Last Admin: 07/05/20 09:36 Dose: 20 meq Documented by: Senna/Docusate Sodium (Docusate Sodium/Senna 50/8.6mg Tab) 1 tab PO [facility] Stop: 07/14/20 08:59 Last Admin: 07/05/20 09:37 Dose: 1 tab Documented by: Vitamin D (Cholecalciferol 1,000 Units 25 Mcg Tab) [facility] [place] [place] Stop: 07/12/20 18:29 Last Admin: 07/05/20 09:36 Dose: 1,000 units Documented by: (1) CKD (chronic kidney disease), stage III Chronic kidney disease stage 3 subtype: stage 3b (GFR 30-44) Qualified Code(s): N18.32 - Chronic kidney disease, stage 3b
--- NOTE | 2020-07-05 14:05 | Pharmacy Report ---
Pharmacy Glycemic Short Note 2 - Date of Service July 05, 2020 - Glycemic Short BSG Results (Last 24 hours): 07/04/20 07/04/20 07/05/20 16:45 20:20 06:57 Glucose 169 H POC Glucose 228 H 212 H 07/05/20 07/05/20 07:47 12:15 Glucose POC Glucose 190 H 190 H Outpatient Anti-diabetic Regimen: * Lantus 15 units SC qAM, 8 units SC qPM * A1c = 8.3 % on 05/23/20 ASSESSMENT: 07/05: * Two days ago patient received only total of 7 units of insulin for the entire day since his BSGs were running low. * Yesterday, BSGs trended up into the 200s by the evening and he required total of 15 units of insulin; 8 units of which was basal and rest bolus. * Fasting BSG today was up to 190 mg/dl showing patient's insulin requirements have increased. Lantus dose was increased and given this AM. Additional Lantus dose if needed based on BSG scale ordered for tonight. * Novolog parameters continued the same. PLAN FOR INPATIENT GLYCEMIC CONTROL: * Basal insulin: increased * Lantus 10 units SQ qAM and 0-7 units based on BSG scale at HS * Bolus insulin: continued * Novolog SQ ACHS * Goal range: 110-140mg/dL * Correction Factor: 45 mg/dL/unit * Nutritional / Prandial insulin per carb ratio of 1 unit per 12 grams CHO consumed Recommendation for Discharge: * Resume patient's home insulin regimen as long as he is not reporting hypoglycemia. * Recommend close follow up with outpatient provider for dose titration as needed.
[2020-07-06] MEDS: AMPICILLIN/SULBACTAM SOD 3,000 MG in 0.9 % SODIUM CHLORIDE 100 ML IV SCH ×2 (01:56→06:15)
[2020-07-06] MEDS: ACETAMINOPHEN 500 MG TAB PO SCH ×3 (01:57→17:01)
[2020-07-06] MEDS: LORazepam 0.25 MG/0.5 ML VIAL IV PRN (03:16)
[2020-07-06] MEDS: INSULIN ASPART 100 UNITS/ML 3 ML PEN SC SCH ×4 (08:50→22:17)
[2020-07-06] MEDS: INSULIN GLARGINE SOLOSTAR 100 UNITS/ML 3 ML PEN SC SCH ×2 (08:51→22:17)
[2020-07-06] MEDS: FLUDROCORTISONE ACETATE 0.1 MG TAB PO SCH (08:52)
[2020-07-06] MEDS: FUROSEMIDE 30 MG in SYRINGE 0 ML IV SCH (08:54)
[2020-07-06] MEDS: GABAPENTIN 300 MG CAP PO SCH ×3 (08:54→20:39)
[2020-07-06] MEDS: BETAMETHASONE VAL 0.1% CR 15 GM EXT SCH ×3 (08:54→20:45)
[2020-07-06] MEDS: ENOXAPARIN INJ 40 MG/0.4 ML SYR SQ SCH (08:55)
[2020-07-06] MEDS: DOCUSATE SODIUM/SENNA 50/8.6MG TAB PO SCH (08:56)
[2020-07-06] MEDS: POTASSIUM CHLORIDE CRTAB 20 MEQ TABCR PO SCH ×2 (08:56→20:39)
[2020-07-06] MEDS: CHOLECALCIFEROL 1,000 UNITS 25 MCG TAB PO SCH (08:58)
[2020-07-06] MEDS: oxyCODONE HCL IR 5 MG TAB (IMMEDIATE RELEASE) PO PRN ×2 (09:03→16:58)
--- NOTE | 2020-07-06 09:58 | Pulmonology Progress Note ---
Date of Service July 06, 2020 Assessment & Plan (1) Necrotizing pneumonia: Impression: 55-year-old male with Covid pneumonia and now appears to have a secondary lung abscess/pneumonia with fluid overload perpetuating his hypoxemic respiratory failure.. Bilateral pleural effusions are identified. Recommendations: 1. Recommend continued aggressive diuresis. Nephrology is following. Continue to try and target -1 L per 24 hours. If more aggressive diuresis resulted in decline in renal function and progressive need for dialysis, I think that is a necessary evil at this point in time as the patient has been in the hospital for over a month and needs aggressive fluid removal to optimize his pulmonary mechanics. 2. Hypoxemic respiratory failure: Multifactorial due to combinations of pulmonary fibrosis, recent viral pneumonia from COVID-19 (+ 06/17/2020), fluid overload, bilateral pleural effusions, and infection given the lung abscess and elevated procalcitonin. Continue to attempt aggressive diuresis. Hold off on thoracentesis at this point unless creatinine jumped significantly. Continue with antibiotic therapy for lung abscess. Incentive spirometry. Out of bed to chair to activate mucilatory elevator 3. Bilateral pleural effusions: Appear to be progressive based on review of previous CT scan 06/23/2020. Nephrology is now involved and diuresing patient. We will target 1 L negative per day. Currently creatinine is stable at 2.33 which appears close to his baseline. We will hold off on invasive draining of pleural fluid at this time. 4. Lung abscess: The patient is being followed by infectious disease at [facility]. Typically these abscesses require a prolonged course of antimicrobial therapy often 3 to 6 weeks. Will defer to infectious disease choice of antimicrobial agents and duration of therapy. He should have follow- up imaging at completion of antimicrobial therapy to evaluate the cavity. Procalcitonin and white blood cell count are trending downward. Would not recommend IV iron in the setting of a potential active infection. No indication for bronchoscopy currently as it would be unlikely to mold insert changer. We will continue to follow this patient at this time. Please feel free to call with any questions. Admission and Anticipated Discharge Date Admission Date: May 22, 2020 Supervising Physician Co-Signing Physician Notes Chart reviewed. Discussed with critical care VIJAY. Recommend continued diuresis and antimicrobial agents. Wean oxygen as tolerated. Would not recommend imaging at this point time is unlikely to alter management. No indication for thoracentesis currently. Subjective Attending: Dr. Hitchcock Patient seen and examined at bedside. He was on high flow oxygen last night. Today he is on supplemental oxygen via oxygen mask at 15 L/min. His SaO2 on initial examination was 88%. After encouraging deep inspiration, patient was a 92%. Patient denies any fever or chills. He has no nausea or vomiting. He has no chest pain or tightness. He does state that he continues to get short of breath with minimal activity. He is incarcerated and therefore, shackled to the bed. He denies any new acute complaints. Review of Systems Review of Systems: All systems reviewed & are unremarkable except as noted in Subjective Physical Exam Physical Exam: GENERAL : No acute distress EYES: No icterus, gaze conjugate NOSE: No evidence of epistaxis MOUTH: No lesions or candidiasis NECK: Supple LUNGS: Patient with diffuse coarse crackles, Velcro crackles, bronchospasm, throughout all lung case on the posterior and anterior. Good inspiratory effort. No paradoxical chest wall movement. Lung sounds present in all 5 lobes HEART: Regular, tachycardic ABDOMEN: Soft, NT, ND, BS Present EXTREMITIES: No LE edema, pedal pulses intact NEURO: A&OX3 Results & Data Results & Data ([facility]) Vital Signs (Past 12 Hours) Vital Signs Temp Pulse Pulse Resp BP BP Pulse Ox 07/06/20 06:47 36.5 C 80 16 152/78 H 89 L 07/06/20 03:00 36.6 C 82 22 146/82 H 90 07/06/20 01:30 73 07/05/20 22:49 36.6 C 73 18 141/77 H 91 Laboratory Results 07/05/20 06:57 07/05/20 06:57 Diagnostic Findings Chest x-ray from 07/05/[address] scan of chest from 07/01/[address] scan of chest from 06/23/2020 reviewed PG Care Time/CCT Total # of Minutes Spent Total Time Spent with Patient: Total time spent is greater than 50% in coordination of care (as documented) at patient's floor/unit and/or counseling p atient: 25 minutes Coding Level of Care Code 39577 Subseq Hosp Care Lvl 2 Diagnoses Necrotizing pneumonia J85.0 Time Spent (min) 25
[2020-07-06] MEDS ORDERED: MoRPHine SULFATE 2 MG/ML CARP IV STA (10:41)
--- NOTE | 2020-07-06 10:57 | Nephrology Progress Note ---
Date of Service July 06, 2020 Assessment & Plan (1) CKD (chronic kidney disease), stage III: Per hospitalist on paperwork from admission, baseline creatinine 2.3 in 12/2019. No OP/prior to admission creatinine documented. Pt presented with creatinine 2.5 on 05/22; then bumped to 05/27 in mid to low 3s. peaked at 4.5 on 06/02; creat under 3 since 06/10; at last labs on 06/29 in low 2's, at baseline. [facility] w/ 3+ dipstick protein, 1+ blood, consistent with even 2018 sediment; no infection or other inflammation. pt is open to dialysis if need arises; though he is doing better from renal standpoint than earlier this month. 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 s/p course of dexamethasone >>fludro stopped today by another provider but I resumed it -lowered fludro to 0.25 mg daily on 07/02 (termination clerk steroid user on 0.3 mg daily x months at least) and plan slow taper w/ dosing stepdown q 2-3 wks -stopped ACEI at tihs point (3) COVID-19: on high flow 02 for a few weeks now and still dependent; w/ near intubation / code purple for hypoxia 06/01 AM; ICU status downgraded 06/03; recurrent hypoxemic episodes corrected with self-proning >> he has been on 6L or more 02 continuously since 05/28; currently on 15L/min on oxymask -f/u CT results 06/30 >> remarkable for ERASMO abscess c/w necrotizing pneumonia; increasing BL pl effusions and multifocal airspace opacities >> consider NPO status and PPN; recommend touching base again w/ inf dzs [facility] if not already done in wake of second CT (4) Anemia: has had pRBC this admission on 06/22 >> t stn same day 6% -recheck cbc in am -completed venofer load wk of 06/29 Admission and Anticipated Discharge Date Admission Date: May 22, 2020 Subjective worse sob today > desatting to 80s on 16L and feels more sob Physical Exam Constitutional: well developed, well nourished, + acute distress (d/t sob) and + thin Eyes: EOM intact bilaterally ENMT: Ears: no external ear abnormality Nose: no external nose abnormality Mouth: + dry oral mucous membranes Neck: no nuchal rigidity Respiratory: + labored breathing, able to speak in complete sentences, + tachypneic, + paradoxical chest wall movement and + paradoxical thoraco- abdominal movement; + abnormal respiratory effort and no cough Auscultation: + diminished lung sounds (markedly and no crackles) Cardiovascular: RRR, no murmur, no edema Rate/Rhythm: regular rate and regular rhythm Gastrointestinal (Abdomen): Inspection/Auscultation: abdomen normal to inspection and normal bowel sounds Percussion/Palpation: abdomen soft; abdomen nontender Musculoskeletal: Extremities: strength 5/5 throughout Skin: no rashes, warm and dry Psychiatric: A+Ox3, euthymic affect Orientation: alert and oriented x 3 Eye Contact: good eye contact Affect: + anxious affect and + flat affect Genitourinary: mukherjee present/ample urine Results & Data ([facility]) Vital Signs (Past 12 Hours) Vital Signs Temp Pulse Pulse Resp BP BP Pulse Ox 07/06/20 06:47 36.5 C 80 16 152/78 H 89 L 07/06/20 03:00 36.6 C 82 22 146/82 H 90 07/06/20 01:30 73 Laboratory Results 07/05/20 06:57 07/05/20 06:57 (1) CKD (chronic kidney disease), stage III Chronic kidney disease stage 3 subtype: stage 3b (GFR 30-44) Qualified Code(s): N18.32 - Chronic kidney disease, stage 3b (2) Anemia Anemia type: iron deficiency Iron deficiency anemia type: unspecified iron deficiency Qualified Code(s): D50.9 - Iron deficiency anemia, unspecified
[2020-07-06] MEDS ORDERED: FUROSEMIDE 30 MG in SYRINGE 0 ML IV STA (11:13)
[2020-07-06 12:00] LABS: Basophils # (auto) 0.21 K/uL (0-0.2); Basophils % (auto) 1.5 %; Eosinophils # (auto) 0.55 K/uL (0-0.5); Hemoglobin 8.8 g/dL (14.0-18.0); Immature Granulocytes # (auto) 0.15 K/uL (0.00-0.02); Immature Granulocytes % (auto) 1.1 %; Lymphocytes # (auto) 2.39 K/uL (1.2-3.4); Lymphocytes % (auto) 17.5 %; Mean Corpuscular Hgb Conc 32.6 g/dL (32-36); Monocytes # (auto) 1.01 K/uL (0.11-0.59); Monocytes % (auto) 7.4 %; Neutrophils # (auto) 9.32 K/uL (1.4-6.5); Neutrophils % (auto) 68.5 %; Platelet Count 716 K/uL (130-400); RDW Coefficient of Variation 16.2 % (11.5-14.5); RDW Standard Deviation 51.6 fL (36.4-46.3); Red Blood Count 3.14 M/uL (4.7-6.1); White Blood Count 13.63 K/uL (4.8-10.8)
[2020-07-06 12:15] LABS: BUN Creatinine Ratio 11.3 (10-20); Calcium 7.7 mg/dl (8.5-10.1); Creatinine Clr Calc Pharmacy 39.2 ml/min; Est GFR (African American) 35.3; Est GFR (Non-African American) 30.4; Potassium 3.7 mmol/L (3.5-5.1)
--- NOTE | 2020-07-06 12:56 | Pharmacy Report ---
Pharmacy Glycemic Short Note 2 - Date of Service July 06, 2020 - Glycemic Short BSG Results (Last 24 hours): 07/05/20 07/05/20 07/06/20 16:44 20:04 07:39 Glucose POC Glucose 193 H 180 H 95 07/06/20 07/06/20 11:41 11:44 Glucose 106 H POC Glucose 105 H Outpatient Anti-diabetic Regimen: * Lantus 15 units SC qAM, 8 units SC qPM * A1c = 8.3 % on 05/23/20 ASSESSMENT: 07/06: * Glycemic control acceptable over last 24 hr in this type 1 diabetic with "brittle" diabetes and inconsistent PO intake * Fasting BSG 95 this AM with 14 units of basal insulin on board * Over the last 24 hrs 19 units SQ have been administered - over that time she had really only consumed one full meal * Post-prandial BSGs mildly elevated however BSGs did not climb - will increase prandial insulin dose only slightly given previous requirements when tolerating a diet * Given today's poor PO intake, will titrate back the basal dose slightly (adjustments made to scaled dosing in the PM). 07/05: * Two days ago patient received only total of 7 units of insulin for the entire day since his BSGs were running low. * Yesterday, BSGs trended up into the 200s by the evening and he required total of 15 units of insulin; 8 units of which was basal and rest bolus. * Fasting BSG today was up to 190 mg/dl showing patient's insulin requirements have increased. Lantus dose was increased and given this AM. Additional Lantus dose if needed based on BSG scale ordered for tonight. * Novolog parameters continued the same. PLAN FOR INPATIENT GLYCEMIC CONTROL: * Basal insulin: decrease * Lantus 10 units SQ qAM and 0-6 units based on BSG scale at HS - see EHR * Bolus insulin: increase prandial doses * Novolog SQ ACHS * Goal range: 110-140mg/dL * Correction Factor: 45 mg/dL/unit * Nutritional / Prandial insulin per carb ratio of 1 unit per 9 grams CHO consumed Recommendation for Discharge: * A1c of 8.3% is above goal for many patients, however patient specific goals should be established with Endocrinology + patient input. * Resume patient's home insulin regimen as long as he is not reporting hypoglycemia. * Recommend close follow up with outpatient provider for dose titration as needed according to goals of care.
[2020-07-06] MEDS ORDERED: PIPERACILL/TAZOBAC CONSULT ACTIVE PRN (12:59)
[2020-07-06] MEDS ORDERED: PIPERACILLIN/TAZOBACTAM 4.5 GM in DEXTROSE 5% 100 ML IV ONE (13:30)
[2020-07-06] MEDS: FUROSEMIDE 40 MG in SYRINGE 0 ML IV SCH ×3 (13:40→20:40)
--- NOTE | 2020-07-06 14:57 | Hospitalist Progress Note ---
Date of Service July 06, 2020 Assessment & Plan (1) Acute respiratory failure with hypoxia: Acute respiratory distress syndrome with severe hypoxic respiratory failure on admission secondary to COVID-19 infection Received one unit of conv plasma on 05/27. Steroids x 3 weeks have been tapered off. Was not a candidate for remdesivir 2/2 renal failure. Continues on significant oxygen supplementation. CT of the chest without contrast on 06/23 revealed multifocal airspace consolidation with necrotizing/cavitary pneumonia in the ERASMO, and fluid in the distal esophagus. Repeat CT scan with the contrast showed-bilateral extensive necrotizing pneumonia,bilateral pleural effusion and left upper lobe lung abscess. CT scan was negative for any acute pulmonary embolism Appreciate pulmonary input and recommendation Appreciate ID input and recommendation Been on intravenous Unasyn and will continue antibiotic for 3 to 6 weeks HIV screening is negative. Results were discussed with patient verbalized understanding. Still requiring high flow oxygen up to 15 L/min to maintain saturation. Does not show any improvement at all-we will continue current management Discussed with test deck supervisor-we will get tracheal aspirate for Gram stain and culture. Unfortunately no invasive procedure for the abscess. Bilateral pleural effusion We will continue with intravenous Lasix and more diuresis No plan for thoracentesis at this time but may require down the line if the condition does not get any better with intravenous Lasix and kidney function deteriorated We will continue aggressive diuresis as per certified coder and test deck supervisor We will continue diuresis-no indication of thoracentesis and/or bronchoscopy as per thermoforming machine operator Doses of diuretics has been increased to Lasix 40 mg 4 times a day If there is no improvement with diuresis thoracentesis may be beneficial Left upper lobe lung abscess As above Will need prolonged intravenous antibiotic No fever and/or chills and no increase in white count We will continue intravenous antibiotic for now Discussed with ID and will change antibiotic to Zosyn intravenously We will get tracheal aspirate for Gram stain and CS (2) Pneumonia due to COVID-19 virus: He completed a robust antibiotic course while admitted. (Doxycycline 100mg BID 5 dys, stopped for 2, resumed 05/30 for 7 full days, Ceftriaxone x 14 days, Cefepime for an additional 3 days after the ceftriaxone completed, and Flagyl for 8 days.) Now with bacterial superinfection likely secondary to aspiration with gram-negative and anaerobic coverage. Cont care plan as outlined above with supportive care measures. Patient will need at least 2 weeks total of antibiotics in the setting of necrotizing pneumonia. As above (3) Diabetes mellitus type I: brittle diabetic with difficult to control glucose. Glycemic pharmacist managing and has his on basal bolus SQ insulin at this point. Controlled for now. (4) CKD (chronic kidney disease), stage III: Resolved to baseline renal function. Patient has Stage 3 CKD. With contrast administration being given, have encouraged him to hydrate well and will hold am lasix dose. Will check PRP-kidney function remains stable We will check PRP tomorrow-creatinine is slightly higher today is 2.33 (5) Diabetic neuropathy: Persistent. Home dose gabapentin was 600mg PO QID decreased to 300mg PO BID because of renal insufficiency. Cont with gabapentin 300mg PO TID dosing for now with current renal function. Cont Tylenol and PRN oxy for discomfort. He is starting to become more comfortable. May need to consider a different option than oxycodone for [facility] management if not offered by the [facility] going home but for now would just get him through this respiratory illness. (6) Hypothyroidism: chronic, stable, Continue levothyroxine per home regimen. (7) Depression: chronic, stable. Cont Prozac per home regimen. (8) Psoriasis: steroid cream BID x 2 weeks. Extensor plaques are improving on exam. (9) DVT prophylaxis: Lovenox DNR/DNI Dipso-Uncertain at this time. Pt continues to remain hypoxic but is overall improved since admission. Patient will need at least 1 more week of antibiotics in the setting of necrotizing pneumonia. Will repeat CT scan of the chest in am with contrast to ensure no worsening picture with persistent severe hypoxia and worsening SOB episodes per patient. Overall prognosis remains poor Admission and Anticipated Discharge Date Admission Date: May 22, 2020 Subjective 07/01/2020 The patient was seen and examined in medical telemetry unit His condition has been deteriorating and he still requiring high flow oxygen up to 15 L to maintain saturation Denies any fever and/or chills 07/02/2020 The patient was seen and examined in medical telemetry unit He remains critical but stable Desaturates with any activity and has been requiring high flow oxygen up to 15 L/min to maintain saturation 07/03/2020 The patient was seen and examined in medical telemetry unit He is seems to be a little bit better today Does not have any shortness of breath at rest and denies any cough Still requiring high flow oxygen to maintain saturation 07/04/2020 The patient was seen and examined in medical telemetry unit He remains critical but stable Gets very short of breath with minimal exertion and requiring high flow oxygen to maintain saturation 07/05/2020 The patient was seen and examined in medical telemetry unit He remains critical but stable Still requiring very high dose of oxygen up to 15 L/min via nasal cannula or oxygen mask to maintain saturation Denies any other significant symptoms 07/06/2020 The patient was seen and examined in medical telemetry unit His condition has been deteriorating Gets very short of breath with minimal exertion Denies any fever and/or chills, any abdominal pain, nausea and or vomiting Review of Systems Review of Systems: All systems reviewed and are unremarkable except as noted below Constitutional: + weakness Respiratory: + cough, + dyspnea and + dyspnea on exertion Neurologic: + generalized weakness; no tremor(s), no headache(s) and no confusion Physical Exam Physical Exam: Lying in bed without significant distress but has oxygen mask on Constitutional: well developed, well nourished, + acute distress (Due to shortness of breath) and + ill appearing Eyes: PERRL, conjunctivae normal, anicteric sclerae ENMT: external ear and nose normal, oropharynx normal Neck: trachea midline, no thyromegaly Respiratory: + respiratory distress and + uses accessory muscles; no labored breathing and no cough Auscultation: + diminished lung sounds, + crackles (At the bases) and + wheezes Cardiovascular: Rate/Rhythm: regular rate and regular rhythm Heart Sounds: no murmur Extremities: + edema (Trace edema bilaterally) Gastrointestinal (Abdomen): Inspection/Auscultation: normal bowel sounds; abdomen not distended Percussion/Palpation: abdomen soft; abdomen nontender Musculoskeletal: No acute arthritis in any joint Neurologic: Alert, awake and oriented x3. Generally weak and lethargic. Moves all extremities Psychiatric: A+Ox3, euthymic affect Lymphatic: no cervical or axillary lymphadenopathy Results & Data Results & Data ([facility]) Vital Signs (Past 12 Hours) Vital Signs Temp Pulse Resp BP BP Pulse Ox 07/06/20 11:49 37.0 C 72 22 127/77 90 07/06/20 06:47 36.5 C 80 16 152/78 H 89 L 07/06/20 03:00 36.6 C 82 22 146/82 H 90 Laboratory Results Short CBC 07/06/20 Range/Units 11:44 WBC 13.63 H (4.8-10.8) K/uL Hgb 8.8 L (14.0-18.0) g/dL Hct 27.0 L (42-52) % Plt Count 716 H (130-400) K/uL BMP 07/06/20 11:44 Sodium 141 Potassium 3.7 Chloride 107 Carbon Dioxide 30 BUN 26 H Creatinine 2.31 H Glucose 106 H Calcium 7.7 L Medications Administered Current Inpatient Medications Acetaminophen (Acetaminophen 500 Mg Tab) 1,000 mg PO Q8H MARY Stop: 07/15/20 17:29 Last Admin: 07/06/20 09:03 Dose: 1,000 mg Documented by: Betamethasone Valerate (Betamethasone Suzanne 0.1% Cr 15 Gm) 1 appln EXT BID [facility] Stop: 07/28/20 15:59 Last Admin: 07/06/20 08:54 Dose: 1 appln Documented by: Dextrose (Dextrose 50% 50 Ml Syringe) 25 - 50 ml IV UD PRN; Protocol PRN Reason: Hypoglycemia Protocol Stop: 07/22/20 20:59 Enoxaparin Sodium (Enoxaparin Inj 40 Mg/0.4 Ml Syr) 40 mg SQ QAM [facility] Stop: 07/25/20 08:59 Last Admin: 07/06/20 08:55 Dose: 40 mg Documented by: Fludrocortisone Acetate (Fludrocortisone Acetate 0.1 Mg Tab) 0.25 mg PO QAM [facility] Stop: 08/01/20 17:29 Last Admin: 07/06/20 08:52 Dose: 0.25 mg Documented by: Gabapentin (Gabapentin 300 Mg Cap) 300 mg PO TID MARY Stop: 07/11/20 08:59 Last Admin: 07/06/20 13:41 Dose: 300 mg Documented by: Glucagon (Glucagon For Inj 1 Mg Vial) 1 mg IM UD PRN; Protocol PRN Reason: Hypoglycemia Protocol Stop: 07/22/20 20:59 Glucose (Glucose 40% Gel 15 Gm Tube) 15 - 30 gm PO UD PRN; Protocol PRN Reason: Hypoglycemia Protocol Stop: 07/22/20 20:59 Glucose (Glucose 10 Tabs/Tube) 4 - 8 tabs PO UD PRN; Protocol PRN Reason: Hypoglycemia Protocol Stop: 07/22/20 20:59 Lorazepam (Ativan) 0.25 mg in 0.5 mls @ 0.5 mls/min IV Q6H PRN PRN Reason: Anxiety/Agitation Stop: 07/21/20 08:58 Last Admin: 07/06/20 03:16 Dose: 0.5 mls/min Documented by: Furosemide 40 mg/ Syringe 4 mls @ 4 mls/min IV QID MARY Stop: 08/05/20 12:59 Last Admin: 07/06/20 13:40 Dose: 4 mls/min Documented by: Piperacillin Sod/Tazobactam (Sod 4.5 gm/ Dextrose) 120 mls @ 30 mls/hr IV Q8H MARY; Protocol Stop: 07/13/20 19:59 Insulin Aspart (Insulin Aspart 100 Units/Ml 3 Ml Pen) 0 units SC ACHS [facility]; Protocol Stop: 07/25/20 07:29 Last Admin: 07/06/20 12:31 Dose: Not Given Documented by: Insulin Glargine (Insulin Glargine Solostar 100 Units/Ml 3 Ml Pen) [facility] [place] [place] Protocol Stop: 08/04/20 08:59 Last Admin: 07/06/20 08:51 Dose: 10 units Documented by: Insulin Glargine (Insulin Glargine Solostar 100 Units/Ml 3 Ml Pen) 0 units SC [facility]; Protocol Stop: 08/04/20 20:59 Last Admin: 07/05/20 20:31 Dose: 4 units Documented by: Miscellaneous (Carbohydrates For Hypoglycemia ) 15 - 30 gm PO UD PRN PRN Reason: Hypoglycemia Treatment Stop: 07/22/20 20:59 Last Admin: 06/30/20 17:05 Dose: 15 gm Documented by: Miscellaneous Information (Pharmacy Glycemic Mgmt Consult) 1 ea N/A UD PRN PRN Reason: Consult Stop: 07/24/20 07:33 Miscellaneous Information (Piperacill/Tazobac Consult Active) 1 ea N/A UD PRN PRN Reason: Consult Stop: 08/05/20 12:58 Ondansetron HCl (Ondansetron Inj 2 Mg/Ml 2 Ml Vial) 4 mg IV Q8H PRN PRN Reason: nausea or vomiting Stop: 07/25/20 14:14 Last Admin: 07/05/20 09:44 Dose: 4 mg Documented by: Oxycodone HCl (Oxycodone Hcl Ir 5 Mg Tab (Immediate Release)) 5 mg PO Q6H PRN PRN Reason: Pain Stop: 07/10/20 14:32 Last Admin: 07/06/20 09:03 Dose: 5 mg Documented by: Phenol (Chloraseptic 1.4% Soln 180 Ml Btl) 2 sprays MT Q4H PRN PRN Reason: sore thorat Stop: 07/28/20 14:45 Last Admin: 06/28/20 15:19 Dose: 2 sprays Documented by: Polyethylene Glycol (Polyethylene (Miralax) 17 Gm Pack) 17 gm PO Q6H PRN PRN Reason: Constipation Stop: 07/13/20 18:55 Last Admin: 06/19/20 15:59 Dose: 17 gm Documented by: Potassium Chloride (Potassium Chloride Crtab 20 Meq Tabcr) 20 meq PO BID MARY Stop: 07/08/20 10:29 Last Admin: 07/06/20 08:56 Dose: 20 meq Documented by: Senna/Docusate Sodium (Docusate Sodium/Senna 50/8.6mg Tab) 1 tab PO QAM MARY Stop: 07/14/20 08:59 Last Admin: 07/06/20 08:56 Dose: 1 tab Documented by: Vitamin D (Cholecalciferol 1,000 Units 25 Mcg Tab) 1,000 units PO QAM MARY Stop: 07/12/20 18:29 Last Admin: 07/06/20 08:58 Dose: 1,000 units Documented by: (1) CKD (chronic kidney disease), stage III Chronic kidney disease stage 3 subtype: stage 3b (GFR 30-44) Qualified Code(s): N18.32 - Chronic kidney disease, stage 3b
[2020-07-06] MEDS ORDERED: MoRPHine SULFATE 2 MG/ML CARP ONE (17:40)
[2020-07-06] MEDS: MoRPHine SULFATE 2 MG/ML CARP IV PRN (17:43)
[2020-07-06 20:11] LABS: BUN Creatinine Ratio 11.2 (10-20); Calcium 8.2 mg/dl (8.5-10.1); Creatinine Clr Calc Pharmacy 39.4 ml/min; Est GFR (African American) 35.5; Est GFR (Non-African American) 30.6; Potassium 3.2 mmol/L (3.5-5.1)
[2020-07-06] MEDS: PIPERACILLIN/TAZOBACTAM 4.5 GM in DEXTROSE 5% 100 ML IV SCH (20:34)
[2020-07-07] MEDS: MoRPHine SULFATE 2 MG/ML CARP IV PRN (00:18)
[2020-07-07] MEDS: ACETAMINOPHEN 500 MG TAB PO SCH ×3 (02:38→17:29)
[2020-07-07] MEDS: PIPERACILLIN/TAZOBACTAM 4.5 GM in DEXTROSE 5% 100 ML IV SCH ×3 (04:55→20:45)
[2020-07-07] MEDS: LORazepam 0.25 MG/0.5 ML VIAL IV PRN ×2 (06:17→14:17)
[2020-07-07 07:59] LABS: Basophils # (auto) 0.19 K/uL (0-0.2); Basophils % (auto) 1.5 %; Eosinophils # (auto) 0.59 K/uL (0-0.5); Eosinophils % (auto) 4.7 %; Hemoglobin 9.4 g/dL (14.0-18.0); Immature Granulocytes # (auto) 0.13 K/uL (0.00-0.02); Lymphocytes # (auto) 1.61 K/uL (1.2-3.4); Lymphocytes % (auto) 12.8 %; Mean Corpuscular Hemoglobin 27.3 pg (25-34); Mean Corpuscular Hgb Conc 31.3 g/dL (32-36); Mean Corpuscular Volume 87.2 fL (80-100); Monocytes # (auto) 1.01 K/uL (0.11-0.59); Monocytes % (auto) 8.1 %; Neutrophils % (auto) 71.9 %; Platelet Count 693 K/uL (130-400); RDW Coefficient of Variation 16.3 % (11.5-14.5); RDW Standard Deviation 51.4 fL (36.4-46.3); Red Blood Count 3.44 M/uL (4.7-6.1); White Blood Count 12.53 K/uL (4.8-10.8)
[2020-07-07] MEDS: oxyCODONE HCL IR 5 MG TAB (IMMEDIATE RELEASE) PO PRN ×2 (08:00→20:45)
[2020-07-07] MEDS: FUROSEMIDE 40 MG in SYRINGE 0 ML IV SCH ×4 (08:02→20:45)
[2020-07-07] MEDS: POTASSIUM CHLORIDE CRTAB 20 MEQ TABCR PO SCH ×2 (08:03→20:46)
[2020-07-07] MEDS: GABAPENTIN 300 MG CAP PO SCH ×3 (08:03→20:46)
[2020-07-07] MEDS: ENOXAPARIN INJ 40 MG/0.4 ML SYR SQ SCH (08:05)
[2020-07-07] MEDS: FLUDROCORTISONE ACETATE 0.1 MG TAB PO SCH (08:06)
[2020-07-07] MEDS: CHOLECALCIFEROL 1,000 UNITS 25 MCG TAB PO SCH (08:07)
[2020-07-07] MEDS: BETAMETHASONE VAL 0.1% CR 15 GM EXT SCH ×2 (08:11→20:46)
[2020-07-07] MEDS: INSULIN GLARGINE SOLOSTAR 100 UNITS/ML 3 ML PEN SC SCH ×2 (08:12→21:37)
[2020-07-07] MEDS: DOCUSATE SODIUM/SENNA 50/8.6MG TAB PO SCH (08:16)
[2020-07-07] MEDS: INSULIN ASPART 100 UNITS/ML 3 ML PEN SC SCH ×4 (08:17→21:37)
[2020-07-07 08:20] LABS: BUN Creatinine Ratio 10.9 (10-20); Calcium 8.2 mg/dl (8.5-10.1); Creatinine Clr Calc Pharmacy 38.7 ml/min; Est GFR (African American) 34.7; Potassium 3.5 mmol/L (3.5-5.1)
--- NOTE | 2020-07-07 15:19 | Nephrology Progress Note ---
Date of Service July 07, 2020 Assessment & Plan (1) CKD (chronic kidney disease), stage III: Per hospitalist on paperwork from admission, baseline creatinine 2.3 in 12/2019. No OP/prior to admission creatinine documented. Pt presented with creatinine 2.5 on 05/22; then bumped to 05/27 in mid to low 3s. peaked at 4.5 on 06/02; creat under 3 since 06/10; at last labs on 06/29 in low 2's, at baseline. uacm w/ 3+ dipstick protein, 1+ blood, consistent with even 2018 sediment; no infection or other inflammation. pt is open to dialysis if need arises; though he is doing better from renal standpoint than earlier this month. not negative over the weekend and now with worsening respiratory status -cont increased lasix 40 mg qid IV -Daily BMP -no FR for now but may need one -started K 20 mE daily first dose today >>[employer]ING LE[employer] was on gabapentin 600 mg qid; so we lowered significantly mid Nov d/t XOCHITL; now back up to 300 mg tid and tolerating; do not believe this medication would help pleuritic chest pain which he again c/o to me today but could consider resuming OP dose when/if appropriate (2) Orthostatic hypotension: with labile BP reported [employer]; but here BP w/ stable elevation since he is essentially bedbound on standing /detention fludrocortisone prior to admission. s/p course of dexamethasone >>fludro stopped today by another provider but I resumed it -lowered fludro to 0.25 mg daily on 07/02 (detention steroid user on 0.3 mg da lesli x months at least) and plan slow taper w/ dosing stepdown q 2-3 wks -stopped ACEI at tihs point (3) COVID-19: on high flow 02 for a few weeks now and still dependent; w/ near intubation / code purple for hypoxia 06/01 AM; ICU status downgraded 06/03; re current hypoxemic episodes corrected with self-proning >> he has been on 6L or more 02 continuously since 05/28; currently on 15L/min on oxymask -f/u CT results 06/30 >> remarkable for larger ERASMO abscess c/w worsening necrotizing pneumonia; increasing BL pl effusions and multifocal airspace opacities >> consider NPO status and PPN; recommend touching base again w/ inf dzs [facility] if not already done in wake of second CT (4) Anemia: has had pRBC this admission on 06/22 >> t stn same day 6% -recheck cbc in am -completed venofer load wk of 06/29 Admission and Anticipated Discharge Date Admission Date: May 22, 2020 Subjective 4L negative so far today; remains on 15L seen on rounds at 1400; no chnage in dyspnea, poor po; no n/v; no c/o pain today Review of Systems Review of Systems: All systems reviewed & are unremarkable except as noted in HPI & below Physical Exam Constitutional: well developed, well nourished and + thin; no acute distress Eyes: EOM intact bilaterally ENMT: Ears: no external ear abnormality Nose: no external nose abnormality Mouth: + dry oral mucous membranes Neck: no nuchal rigidity Respiratory: able to speak in complete sentences and + tachypneic; + abnormal respiratory effort, no labored breathing, no cough, no paradoxical chest wall movement and no paradoxical thoraco-abdominal movemnt Auscultation: + diminished lung sounds (markedly and no crackles) Cardiovascular: RRR, no murmur, no edema Rate/Rhythm: regular rate and regular rhythm Gastrointestinal (Abdomen): Inspection/Auscultation: abdomen normal to inspection and normal bowel sounds Percussion/Palpation: abdomen soft; abdomen nontender Musculoskeletal: Extremities: strength 5/5 throughout Skin: no rashes, warm and dry Neurologic: gutierrez, fluent speech, no tremor Psychiatric: A+Ox3, euthymic affect Orientation: alert and oriented x 3 Eye Contact: good eye contact Affect: + anxious affect and + flat affect Genitourinary: mukherjee w/ ample urine Results & Data ([facility]) Vital Signs (Past 12 Hours) Vital Signs Temp Pulse Resp BP BP Pulse Ox 07/07/20 14:13 80 20 152/80 H 90 07/07/20 11:41 36.8 C 78 20 120/73 97 07/07/20 08:54 36.5 C 83 20 152/85 H 88 L 07/07/20 06:30 79 24 92 07/07/20 06:05 82 30 H 77 L 07/07/20 06:00 89 40 H 58 L 12/15/20 04:00 37.0 C 72 22 135/78 92 Laboratory Results 07/07/20 07:26 07/07/20 07:26 (1) CKD (chronic kidney disease), stage III Chronic kidney disease stage 3 subtype: stage 3b (GFR 30-44) Qualified Code(s): N18.32 - Chronic kidney disease, stage 3b (2) Anemia Anemia type: iron deficiency Iron deficiency anemia type: unspecified iron deficiency Qualified Code(s): D50.9 - Iron deficiency anemia, unspecified
--- NOTE | 2020-07-07 16:04 | Pulmonology Progress Note ---
Date of Service July 07, 2020 Assessment & Plan (1) Necrotizing pneumonia: Is a 55-year-old incarcerated male that presented with shortness of breath and was found to have lung abscess with pneumonia. He had bilateral pleural effusions. He also had Heist toxemic respiratory failure. He had a positive Covid test on 06/17/2020. Recommendations: 1. Bilateral pleural effusions: This appears to be progressive as compared to CT scan from 06/23/2020. Patient is currently being diuresed by nephrology with 40 mg of furosemide 4 times daily. Negative fluid goal is -1 L/day. Currently, the patient's creatinine has been stable and is close to baseline. At this time, will defer on invasive procedures such as thoracentesis until patient begins to experience kidney failure or increased creatinine. At that time we will reevaluate to see if there is merit in attempting thoracentesis. 2. Lung abscess: Patient currently receiving [facility]. A tracheal aspirate was suction was obtained this morning and cultures are currently pending. Procalcitonin and white blood cell count are trending downward. Suspect the patient will need 3 to 6 weeks of antibiotic therapy. Would obtain follow-up imaging at the completion of anti microbial therapy to evaluate the cavity. 3. Hypoxemic respiratory failure: This is multifactorial. The patient has pulmonary fibrosis, recent viral pneumonia from COVID-19 (positive test 06/17/2020), fluid overload, bilateral pleural effusions, lung abscess. Continued diuresis is recommended. Continue with antibiotic therapy per [facility] infectious disease. Instructed patient to get out of bed and sit in chair for several hours daily and advised him not to lay flat in bed all the time. He would also benefit from continued voluntary proning as tolerated. I did speak to the correctional officers about the importance of the patient being in a bedside chair. I also discussed this with the patient's nurse. 4. Chronic kidney disease stage III: Nephrology is consulted. Continued diu resis watching creatinine closely. Further management per nephrology Thank you for including us in the care of this patient. We will continue to follow along with you at this time. (2) Acute respiratory failure with hypoxia: (3) Bilateral pleural effusion: (4) Lung abscess: (5) Fluid overload: (6) COVID-19: (7) Diabetes mellitus type I: (8) Hypotension: (9) Depression: Admission and Anticipated Discharge Date Admission Date: May 22, 2020 Supervising Physician Co-Signing Physician Notes Discussed with VIJAY. Agree with assessment and plan as noted. We will follow-up chest x-ray in morning. Subjective Attending: Dr. Hitchcock Patient seen at bedside. He is found with the blanket and sheet covered his head. I was able to remove the bed linens to talk to the patient and he stated that he had continued shortness of breath. He is frustrated and depressed. He states that he is tired of being short of breath. He denies any fever or chills. He has no nausea or vomiting. He has no diarrhea. Review of Systems Review of Systems: All systems reviewed & are unremarkable except as noted in Subjective Physical Exam Physical Exam: GENERAL : No acute distress. Patient appears ill EYES: No icterus, gaze conjugate NOSE: No evidence of epistaxis MOUTH: No lesions or candidiasis NECK: Supple LUNGS: Patient with bilateral crackles at the bases. He also has some faint bronchospasm in all case. There is no appreciation of rhonchi in the upper case. Patient has poor inspirational effort. HEART: Regular, rate controlled ABDOMEN: Soft, NT, ND, BS Present EXTREMITIES: No LE edema, pedal pulses intact NEURO: A&OX3 Results & Data Results & Data ([facility]) Vital Signs (Past 12 Hours) Vital Signs Temp Pulse Resp BP BP Pulse Ox 07/07/20 14:13 80 20 152/80 H 90 07/07/20 11:41 36.8 C 78 20 120/73 97 07/07/20 08:54 36.5 C 83 20 152/85 H 88 L 07/07/20 06:30 79 24 92 07/07/20 06:05 82 30 H 77 L 07/07/20 06:00 89 40 H 58 L Laboratory Results 07/07/20 07:26 07/07/20 07:26 Diagnostic Findings No new diagnostic imaging since 07/05/2020 PG Care Time/CCT Total # of Minutes Spent Total Time Spent with Patient: Total time spent is greater than 50% in coordination of care (as documented) at patient's floor/unit and/or counseling patient: 30 minutes including discussion with patient at bedside Coding Level of Care Code 77168 Subseq Hosp Care Lvl 2 Diagnoses Necrotizing pneumonia J85.0 Acute respiratory failure with hypoxia J96.01 Bilateral pleural effusion J90 Lung abscess J85.2 Fluid overload E87.70 COVID-19 U07.1 Diabetes mellitus type I E10.9 Hypotension I95.9 Depression F32.9 Time Spent (min) 30
--- NOTE | 2020-07-07 18:19 | Hospitalist Progress Note ---
Date of Service July 07, 2020 Assessment & Plan (1) Acute respiratory failure with hypoxia: Acute respiratory distress syndrome with severe hypoxic respiratory failure on admission secondary to COVID-19 infection Received one unit of conv plasma on 05/27. Steroids x 3 weeks have been tapered off. Was not a candidate for remdesivir 2/2 renal failure. Continues on significant oxygen supplementation. CT of the chest without contrast on 06/23 revealed multifocal airspace consolidation with necrotizing/cavitary pneumonia in the ERASMO, and fluid in the distal esophagus. Repeat CT scan with the contrast showed-bilateral extensive necrotizing pneumonia,bilateral pleural effusion and left upper lobe lung abscess. CT scan was negative for any acute pulmonary embolism Appreciate pulmonary input and recommendation Appreciate ID input and recommendation Been on intravenous Unasyn and will continue antibiotic for 3 to 6 weeks HIV screening is negative. Results were discussed with patient verbalized understanding. Still requiring high flow oxygen up to 15 L/min to maintain saturation. Does not show any improvement at all-we will continue current management Discussed with assembler truck trailer-we will get tracheal aspirate for Gram stain and culture. Unfortunately no invasive procedure for the abscess. Not been getting any better Will ask for palliative care recommendation Bilateral pleural effusion We will continue with intravenous Lasix and more diuresis No plan for thoracentesis at this time but may require down the line if the condition does not get any better with intravenous Lasix and kidney function deteriorated We will continue aggressive diuresis as per breaker boss and assembler truck trailer We will continue diuresis-no indication of thoracentesis and/or bronchoscopy as per physical security manager Doses of diuretics has been increased to Lasix 40 mg 4 times a day If there is no improvement with diuresis thoracentesis may be beneficial Has been getting enough diuresis and chest x-ray showed minimal bilateral pleural effusion Left upper lobe lung abscess As above Will need prolonged intravenous antibiotic No fever and/or chills and no increase in white count We will continue intravenous antibiotic for now Discussed with ID and will change antibiotic to Zosyn intravenously We will get tracheal aspirate for Gram stain and CS-Gram stain of the tracheal aspirate showed rare gram-positive cocci and a culture is pending (2) Pneumonia due to COVID-19 virus: He completed a robust antibiotic course while admitted. (Doxycycline 100mg BID 5 dys, stopped for 2, resumed 05/30 for 7 full days, Ceftriaxone x 14 days, Cefepime for an additional 3 days after the ceftriaxone completed, and Flagyl for 8 days.) Now with bacterial superinfection likely secondary to aspiration with gram-negative and anaerobic coverage. Cont care plan as o utlined above with supportive care measures. Patient will need at least 2 weeks total of antibiotics in the setting of necrotizing pneumonia. As above (3) Diabetes mellitus type I: brittle diabetic with difficult to control glucose. Glycemic pharmacist managing and has his on basal bolus SQ insulin at this point. Controlled for now. (4) CKD (chronic kidney disease), stage III: Resolved to baseline renal function. Patient has Stage 3 CKD. With contrast administration being given, have encouraged him to hydrate well and will hold am lasix dose. Will check PRP-kidney function remains stable We will check PRP tomorrow-creatinine is slightly higher today is 2.33 (5) Diabetic neuropathy: Persistent. Home dose gabapentin was 600mg PO QID decreased to 300mg PO BID because of renal insufficiency. Cont with gabapentin 300mg PO TID dosing for now with current renal function. Cont Tylenol and PRN oxy for discomfort. He is starting to become more comfortable. May need to consider a different option than oxycodone for terminal block assembler management if not offered by the correction going home but for now would just get him through this respiratory illness. (6) Hypothyroidism: chronic, stable, Continue levothyroxine per home regimen. (7) Depression: chronic, stable. Cont Prozac per home regimen. (8) Psoriasis: steroid cream BID x 2 weeks. Extensor plaques are improving on exam. (9) DVT prophylaxis: Lovenox DNR/DNI Dipso-Uncertain at this time. Pt continues to remain hypoxic but is overall improved since admission. Patient will need at least 1 more week of antibiotics in the setting of necrotizing pneumonia. Will repeat CT scan of the chest in am with contrast to ensure no worsening picture with persistent severe hypoxia and worsening SOB episodes per patient. Overall prognosis remains poor Admission and Anticipated Discharge Date Admission Date: May 22, 2020 Subjective 07/01/2020 The patient was seen and examined in medical telemetry unit His condition has been deteriorating and he still requiring high flow oxygen up to 15 L to maintain saturation Denies any fever and/or chills 07/02/2020 The patient was seen and examined in medical telemetry unit He remains critical but stable Desaturates with any activity and has been requiring high flow oxygen up to 15 L/min to maintain saturation 07/03/2020 The patient was seen and examined in medical telemetry unit He is seems to be a little bit better today Does not have any shortness of breath at rest and denies any cough Still requiring high flow oxygen to maintain saturation 07/04/2020 The patient was seen and examined in medical telemetry unit He remains critical but stable Gets very short of breath with minimal exertion and requiring high flow oxygen to maintain saturation 07/05/2020 The patient was seen and examined in medical telemetry unit He remains critical but stable Still requiring very high dose of oxygen up to 15 L/min via nasal cannula or oxygen mask to maintain saturation Denies any other significant symptoms 07/06/2020 The patient was seen and examined in medical telemetry unit His condition has been deteriorating Gets very short of breath with minimal exertion Denies any fever and/or chills, any abdominal pain, nausea and or vomiting 07/07/2020 The patient was seen and examined in medical telemetry unit Condition is a little better today but he does not feel that way Remains shortness of breath at rest and requiring high flow oxygen No fever and/or chills Review of Systems Review of Systems: All systems reviewed and are unremarkable except as noted below Constitutional: + weakness Respiratory: + cough, + dyspnea and + dyspnea on exertion Neurologic: + generalized weakness; no tremor(s), no headache(s) and no confusion Physical Exam Physical Exam: Lying in bed minimal shortness of breath at rest Constitutional: well developed, well nourished, + acute distress (Due to shortness of breath) and + ill appearing Eyes: PERRL, conjunctivae normal, anicteric sclerae ENMT: external ear and nose normal, oropharynx normal Neck: trachea midline, no thyromegaly Respiratory: + respiratory distress and + uses accessory muscles; no labored breathing and no cough Auscultation: + diminished lung sounds, + crackles (At the bases) and + wheezes Cardiovascular: Rate/Rhythm: regular rate and regular rhythm Heart Sounds: no murmur Extremities: + edema (Trace edema bilaterally) Gastrointestinal (Abdomen): Inspection/Auscultation: normal bowel sounds; abdomen not distended Percussion/Palpation: abdomen soft; abdomen nontender Musculoskeletal: No acute arthritis in any joint Neurologic: Alert, awake and oriented x3. Generally very weak and lethargic Psychiatric: A+Ox3, euthymic affect Lymphatic: no cervical or axillary lymphadenopathy Results & Data Results & Data ([facility]) Vital Signs (Past 12 Hours) Vital Signs Temp Pulse Resp BP BP Pulse Ox 07/07/20 14:13 80 20 152/80 H 90 07/07/20 11:41 36.8 C 78 20 120/73 97 07/07/20 08:54 36.5 C 83 20 152/85 H 88 L 07/07/20 06:30 79 24 92 Laboratory Results Short CBC 07/07/20 Range/Units 07:26 WBC 12.53 H (4.8-10.8) K/uL Hgb 9.4 L (14.0-18.0) g/dL Hct 30.0 L (42-52) % Plt Count 693 H (130-400) K/uL BMP 07/06/20 07/07/20 18:53 07:26 Sodium 139 140 Potassium 3.2 L 3.5 Chloride 105 105 Carbon Dioxide 29 28 BUN 26 H 26 H Creatinine 2.30 H 2.34 H Glucose 72 120 H Calcium 8.2 L 8.2 L Medications Administered Current Inpatient Medications Acetaminophen (Acetaminophen 500 Mg Tab) 1,000 mg PO Q8H MARY Stop: 07/15/20 17:29 Last Admin: 07/07/20 17:29 Dose: Not Given Documented by: Betamethasone Valerate (Betamethasone Suzanne 0.1% Cr 15 Gm) 1 appln EXT BID MARY Stop: 07/28/20 15:59 Last Admin: 07/07/20 08:11 Dose: 1 appln Documented by: Dextrose (Dextrose 50% 50 Ml Syringe) 25 - 50 ml IV UD PRN; Protocol PRN Reason: Hypoglycemia Protocol Stop: 07/22/20 20:59 Enoxaparin Sodium (Enoxaparin Inj 40 Mg/0.4 Ml Syr) 40 mg SQ QAM MARY Stop: 07/25/20 08:59 Last Admin: 07/07/20 08:05 Dose: 40 mg Documented by: Fludrocortisone Acetate (Fludrocortisone Acetate 0.1 Mg Tab) 0.25 mg PO QAM MARY Stop: 08/01/20 17:29 Last Admin: 07/07/20 08:06 Dose: 0.25 mg Documented by: Gabapentin (Gabapentin 300 Mg Cap) 300 mg PO TID MARY Stop: 07/11/20 08:59 Last Admin: 07/07/20 14:05 Dose: 300 mg Documented by: Glucagon (Glucagon For Inj 1 Mg Vial) 1 mg IM UD PRN; Protocol PRN Reason: Hypoglycemia Protocol Stop: 07/22/20 20:59 Glucose (Glucose 40% Gel 15 Gm Tube) 15 - 30 gm PO UD PRN; Protocol PRN Reason: Hypoglycemia Protocol Stop: 07/22/20 20:59 Glucose (Glucose 10 Tabs/Tube) 4 - 8 tabs PO UD PRN; Protocol PRN Reason: Hypoglycemia Protocol Stop: 07/22/20 20:59 Lorazepam (Ativan) 0.25 mg in 0.5 mls @ 0.5 mls/min IV Q6H PRN PRN Reason: Anxiety/Agitation Stop: 07/21/20 08:58 Last Admin: 07/07/20 14:17 Dose: 0.5 mls/min Documented by: Furosemide 40 mg/ Syringe 4 mls @ 4 mls/min IV QID MARY Stop: 08/05/20 12:59 Last Admin: 07/07/20 17:25 Dose: 4 mls/min Documented by: Piperacillin Sod/Tazobactam (Sod 4.5 gm/ Dextrose) 120 mls @ 30 mls/hr IV Q8H MARY; Protocol Stop: 07/13/20 19:59 Last Infusion: 07/07/20 16:47 Dose: Infused Documented by: Insulin Aspart (Insulin Aspart 100 Units/Ml 3 Ml Pen) 0 units SC ACHS [facility]; Protocol Stop: 07/25/20 07:29 Last Admin: 07/07/20 12:09 Dose: Not Given Documented by: Insulin Glargine (Insulin Glargine Solostar 100 Units/Ml 3 Ml Pen) [facility] [place] Protocol Stop: 08/04/20 08:59 Last Admin: 07/07/20 08:12 Dose: 10 units Documented by: Insulin Glargine (Insulin Glargine Solostar 100 Units/Ml 3 Ml Pen) 0 units SC [facility]; Protocol Stop: 08/04/20 20:59 Last Admin: 07/06/20 22:17 Dose: Not Given Documented by: Miscellaneous (Carbohydrates For Hypoglycemia ) 15 - 30 gm PO UD PRN PRN Reason: Hypoglycemia Treatment Stop: 07/22/20 20:59 Last Admin: 06/30/20 17:05 Dose: 15 gm Documented by: Miscellaneous Information (Pharmacy Glycemic Mgmt Consult) 1 ea N/A UD PRN PRN Reason: Consult Stop: 07/24/20 07:33 Miscellaneous Information (Piperacill/Tazobac Consult Active) 1 ea N/A UD PRN PRN Reason: Consult Stop: 08/05/20 12:58 Morphine Sulfate (Morphine Sulfate 2 Mg/Ml Carp) 1 mg IV Q6H PRN PRN Reason: Pain or Agitation Stop: 07/20/20 17:26 Last Admin: 07/07/20 00:18 Dose: 1 mg Documented by: Ondansetron HCl (Ondansetron Inj 2 Mg/Ml 2 Ml Vial) 4 mg IV Q8H PRN PRN Reason: nausea or vomiting Stop: 07/25/20 14:14 Last Admin: 07/05/20 09:44 Dose: 4 mg Documented by: Oxycodone HCl (Oxycodone Hcl Ir 5 Mg Tab (Immediate Release)) 5 mg PO Q6H PRN PRN Reason: Pain Stop: 07/10/20 14:32 Last Admin: 07/07/20 08:00 Dose: 5 mg Documented by: Phenol (Chloraseptic 1.4% Soln 180 Ml Btl) 2 sprays MT Q4H PRN PRN Reason: sore thorat Stop: 07/28/20 14:45 Last Admin: 06/28/20 15:19 Dose: 2 sprays Documented by: Polyethylene Glycol (Polyethylene (Miralax) 17 Gm Pack) 17 gm PO Q6H PRN PRN Reason: Constipation Stop: 07/13/20 18:55 Last Admin: 06/19/20 15:59 Dose: 17 gm Documented by: Potassium Chloride (Potassium Chloride Crtab 20 Meq Tabcr) 20 meq PO BID MARY Stop: 07/08/20 10:29 Last Admin: 07/07/20 08:03 Dose: 20 meq Documented by: Senna/Docusate Sodium (Docusate Sodium/Senna 50/8.6mg Tab) 1 tab PO QAM MARY Stop: 07/14/20 08:59 Last Admin: 07/07/20 08:16 Dose: 1 tab Documented by: Vitamin D (Cholecalciferol 1,000 Units 25 Mcg Tab) 1,000 units PO QAM MRAY Stop: 07/12/20 18:29 Last Admin: 07/07/20 08:07 Dose: 1,000 units Documented by: (1) CKD (chronic kidney disease), stage III Chronic kidney disease stage 3 subtype: stage 3b (GFR 30-44) Qualified Code(s): N18.32 - Chronic kidney disease, stage 3b
[2020-07-08] MEDS: ACETAMINOPHEN 500 MG TAB PO SCH ×3 (01:25→17:12)
[2020-07-08] MEDS: PIPERACILLIN/TAZOBACTAM 4.5 GM in DEXTROSE 5% 100 ML IV SCH ×3 (03:28→21:15)
[2020-07-08] MEDS: POTASSIUM CHLORIDE CRTAB 20 MEQ TABCR PO SCH ×2 (07:34→21:15)
[2020-07-08] MEDS: FLUDROCORTISONE ACETATE 0.1 MG TAB PO SCH (07:35)
[2020-07-08] MEDS: FUROSEMIDE 40 MG in SYRINGE 0 ML IV SCH ×4 (07:36→21:15)
[2020-07-08] MEDS: CHOLECALCIFEROL 1,000 UNITS 25 MCG TAB PO SCH (07:37)
[2020-07-08] MEDS: GABAPENTIN 300 MG CAP PO SCH ×3 (07:37→21:15)
[2020-07-08] MEDS: ENOXAPARIN INJ 40 MG/0.4 ML SYR SQ SCH (07:37)
[2020-07-08] MEDS: BETAMETHASONE VAL 0.1% CR 15 GM EXT SCH ×2 (07:38→21:53)
[2020-07-08 08:09] LABS: Basophils # (auto) 0.24 K/uL (0-0.2); Basophils % (auto) 2.1 %; Eosinophils # (auto) 0.52 K/uL (0-0.5); Eosinophils % (auto) 4.5 %; Hematocrit (blood only) 30.6 % (42-52); Hemoglobin 9.6 g/dL (14.0-18.0); Immature Granulocytes # (auto) 0.13 K/uL (0.00-0.02); Immature Granulocytes % (auto) 1.1 %; Lymphocytes # (auto) 2.66 K/uL (1.2-3.4); Lymphocytes % (auto) 23.2 %; Mean Corpuscular Hemoglobin 27.5 pg (25-34); Mean Corpuscular Hgb Conc 31.4 g/dL (32-36); Mean Corpuscular Volume 87.7 fL (80-100); Mean Platelet Volume 9.5 fL (7.4-10.4); Monocytes % (auto) 7.8 %; Neutrophils # (auto) 7.04 K/uL (1.4-6.5); Neutrophils % (auto) 61.3 %; Platelet Count 707 K/uL (130-400); RDW Coefficient of Variation 16.5 % (11.5-14.5); Red Blood Count 3.49 M/uL (4.7-6.1); White Blood Count 11.49 K/uL (4.8-10.8)
[2020-07-08] MEDS: DOCUSATE SODIUM/SENNA 50/8.6MG TAB PO SCH (08:18)
[2020-07-08] MEDS: LORazepam 0.25 MG/0.5 ML VIAL IV PRN ×3 (08:18→22:17)
[2020-07-08 08:49] LABS: BUN Creatinine Ratio 11.1 (10-20); Calcium 8.4 mg/dl (8.5-10.1); Creatinine Clr Calc Pharmacy 36.8 ml/min; Est GFR (African American) 32.7; Est GFR (Non-African American) 28.2; Potassium 3.7 mmol/L (3.5-5.1)
[2020-07-08] MEDS: INSULIN GLARGINE SOLOSTAR 100 UNITS/ML 3 ML PEN SC SCH ×2 (10:32→21:52)
[2020-07-08] MEDS: INSULIN ASPART 100 UNITS/ML 3 ML PEN SC SCH ×4 (10:33→21:52)
--- NOTE | 2020-07-08 11:37 | Palliative Care Consultation ---
Date of Consultation July 08, 2020 Assessment & Plan (1) Palliative care encounter: patient wants to continue with current treatment plan for continued future he agrees to participate with PT and OT as tolerates Pt agreeable to PRN Roxanol prior to moving to bedside chair, activity to assess how it affects him Pt continues to want to be a DNR/DNI Would like his daughter called Brisa [phone]. Will need to clear any contact with [facility]. Discussed with CM. Guaman called [phone], no answer, just automated message. Will continue to reach out. (2) Pneumonia due to COVID-19 virus: (3) Acute respiratory failure with hypoxia: (4) CKD (chronic kidney disease), stage III: Chronic kidney disease stage 3 subtype: stage 3b (GFR 30-44) Qualified Code(s): N18.32 - Chronic kidney disease, stage 3b (5) Fluid overload: History of Present Illness Attending Physician: Shayy Montilla MD Allergies Allergy/AdvReac Type Severity Reaction Status Date / Time No Known Drug Allergies Allergy Unknown NONE Verified 05/22/20 20:27 Home Medications Medication Instructions Recorded Confirmed Type Lantus U-100 Insulin 8 unit SUBCUT HS 05/09/18 05/22/20 History aspirin [Aspir-81] 81 mg PO DAILY 05/09/18 05/22/20 History atorvastatin 80 mg PO HS 05/09/18 05/22/20 History B complex 65-rblor-Q-biot-zinc 1 tab PO DAILY 05/22/20 05/22/20 History [Dialyvite] alendronate [Fosamax] 70 mg PO TU 05/22/20 05/22/20 History fludrocortisone 0.3 mg PO DAILY 05/22/20 05/22/20 History fluoxetine [Prozac] 40 mg PO DAILY 05/22/20 05/22/20 History gabapentin 600 mg PO QID 05/22/20 05/22/20 History insulin glargine [Lantus U-100 15 unit SUBCUT QAM 05/22/20 05/22/20 History Insulin] insulin regular human [Novolin R 1 sliding scale dose SUBCUT 05/22/20 05/22/20 History Regular U-100 Insuln] USEASDIRECTD levalbuterol tartrate [Xopenex HFA] 2 inh INHALATION QID 05/22/20 05/22/20 History levothyroxine 137 mcg PO DAILY 05/22/20 05/22/20 History lisinopril 2.5 mg PO DAILY 05/22/20 05/22/20 History ondansetron 4 mg PO Q6H PRN 05/22/20 05/22/20 History vitamin E 1,000 unit PO DAILY 05/22/20 05/22/20 History Patient History Medical History (Updated 07/08/20 @ 11:36 by KAYLIE Shah) Aperistalsis, esophagus Diabetes mellitus type 1 Hypothyroidism Moderate protein-energy malnutrition Necrotizing pneumonia NSTEMI (non-ST elevated myocardial infarction) Orthostatic hypotension on chronic fludrocortisone Palliative care encounter Proteinuria Family History Other No pertinent family history Social History Smoking Status: Never smoker Hx Alcohol Use: No Hx Substance Use: No Preferred Language: Amharic Communication Ability: Effective Visual Impairment: No Limitations Beliefs That Will Affect Care: None Current Living Situation: Other Current Living Situation Comment: Senior Care Feels Safe at Home: Yes Assistive Devices: Oxygen - Continuous Physical Exam Constitutional: + thin, + frail appearing and cooperative Respiratory: + respiratory distress and + uses accessory muscles Cardiovascular: Rate/Rhythm: regular rate and regular rhythm Heart Sounds: normal S1 and normal S2 Extremities: normal capillary refill Gastrointestinal (Abdomen): normal bowel sounds, soft, nontender, no hepatosplenomegaly Skin: no rashes, warm and dry Psychiatric: A+Ox3, euthymic affect Results & Data ([facility]) Vital Signs (Past 12 Hours) Vital Signs Temp Pulse Pulse Resp BP Pulse Ox 07/08/20 07:37 36.8 C 79 16 148/79 H 92 07/08/20 03:07 36.7 C 81 22 94 07/08/20 01:31 85 07/07/20 23:50 36.7 C 77 22 133/82 99 PG Care Time/CCT Total # of Minutes Spent Total Time Spent with Patient: Total time spent is greater than 50% in coordination of care (as documented) at patient's floor/unit and/or counseling patient: 70 Coding Level of Care Code 83143 Inpt Consult Level 3 Diagnoses Palliative care encounter Z51.5 Pneumonia due to COVID-19 virus U07.1; J12.89 Acute respiratory failure with hypoxia J96.01 CKD (chronic kidney disease), stage III N18.32 Chronic kidney disease stage 3 subtype: stage 3b (GFR 30-44) Fluid overload E87.70 Time Spent (min) 70 Time Spent Midlevel Total time spent 70 minutes with > 50% of that time spent assessing the patient, discussing goals of care and collaborating with IDT
--- NOTE | 2020-07-08 11:41 | Pharmacy Report ---
Glycemic Control Progress Note - Date of Service July 08, 2020 - Scope Glycemic Pharmacist consulted for glycemic control to write orders per [facility] inpatient glycemic control protocol. - Objective Accuchecks BSG(last 24 hours):: 07/07/20 07/07/20 07/08/20 16:42 20:39 07:14 Glucose 126 H POC Glucose 137 H 131 H 07/08/20 07:32 Glucose POC Glucose 145 H HbA1c:: Hemoglobin A1c 8.3 % (4.5-5.6) H 05/23/20 05:24 - Recent Pertinent Medications The patient is currently receiving: * Basal insulin: Lantus 10 units every 24 hours * Correctional Insulin: Novolog Correction per scale ACHS Goal Range: Low 120 mg/dL - High 160 mg/dL Correction Factor: 35 mg/dL/unit * Prandial insulin: Per carb ratio of 1 unit per 9 grams CHO consumed - Outpatient Anti-Diabetic Meds Lantus 15 units in the morning and 8 units in the PM - Assessment & Plan ASSESSMENT: * See progress note from 05/24/2020 for more background info, in short: * Pt receiving SQ basal bolus insulin regimen for hyperglycemia secondary to baseline DM (outpatient regimen on hold). Patient receiving Zosyn for necrotizing pneumonia. * Patient is currently receiving an average of 10 units of insulin per day * 10 units of basal insulin * 0 units of prandial/correctional insulin * BSGs ranging 127 - 138 mg/dl over the past 24hrs * Changes needed to insulin regimen: * AM Fasting BSG = 145 mg/dl. This is in goal range for patient based on inpatient targets and co-morbidities. Therefore Basal insulin will be continued at 10 units in the morning and then a scale in the evening. Okay with patient receiving Lantus 13 units at this point so will remove 6 unit option. * Post-prandial BSGs are in range therefore no changes needed to CF/CR. * Total daily dose = ~10-20 units depending on PO intake. PLAN FOR INPATIENT GLYCEMIC CONTROL: * Continuing Lantus 10 units SQ qAM plus 3 units tonight if BSG > 140 mg/dL * LOOSENING correction factor to 40 mg/dl/unit * Continuing carb ratio of 1 unit per 9 grams CHO consumed * Continuing goal range of Low 110 mg/dL - High 140 mg/dL * Please note that the plan above was derived based on current level of insulin resistance and hospital stress. These recommendations are appropriate for inpatient admission only. Plan of care upon discharge will need to be reassessed to avoid potential outpatient hypo/hyperglycemia. Thank you.
--- NOTE | 2020-07-08 15:03 | Hospitalist Progress Note ---
Date of Service July 08, 2020 Assessment & Plan (1) Acute respiratory failure with hypoxia: Acute respiratory distress syndrome with severe hypoxic respiratory failure on admission secondary to COVID-19 infection Received one unit of conv plasma on 05/27. Steroids x 3 weeks have been tapered off. Was not a candidate for remdesivir 2/2 renal failure. Continues on significant oxygen supplementation. CT of the chest without contrast on 06/23 revealed multifocal airspace consolidation with necrotizing/cavitary pneumonia in the ERASMO, and fluid in the distal esophagus. Repeat CT scan with the contrast showed-bilateral extensive necrotizing pneumonia,bilateral pleural effusion and left upper lobe lung abscess. CT scan was negative for any acute pulmonary embolism Appreciate pulmonary input and recommendation Appreciate ID input and recommendation Received intravenous Unasyn HIV screening is negative. Results were discussed with patient verbalized understanding. Still requiring high flow oxygen up to 15 L/min to maintain saturation. Does not show any improvement at all-we will continue current management Has been getting intravenous Zosyn since 07/06/2020 after discussion with ID as below Condition has been deteriorating Palliative care consulted-appreciate input and recommendation We will continue current management Bilateral pleural effusion We will continue with intravenous Lasix and more diuresis No plan for thoracentesis at this time but may require down the line if the condition does not get any better with intravenous Lasix and kidney function deteriorated We will continue aggressive diuresis as per otr driver and registered nurse obstetrics We will continue diuresis-no indication of thoracentesis and/or bronchoscopy as per superintendent terminal Doses of diuretics has been increased to Lasix 40 mg 4 times a day If there is no improvement with diuresis thoracentesis may be beneficial Has been getting enough diuresis and chest x-ray showed minimal bilateral pleural effusion Left upper lobe lung abscess As above Will need prolonged intravenous antibiotic No fever and/or chills and no increase in white count We will continue intravenous antibiotic for now Discussed with ID and will change antibiotic to Zosyn intravenously since 07/06/2020 We will get tracheal aspirate for Gram stain and CS-Gram stain of the tracheal aspirate-rare gram-positive cocci and the culture was THROAT: No sore throat, difficulty swallowing, or hoarseness. White count has been improving and will continue intravenous Zosyn for now (2) Pneumonia due to COVID-19 virus: He completed a robust antibiotic course while admitted. (Doxycycline 100mg BID 5 dys, stopped for 2, resumed 05/30 for 7 full days, Ceftriaxone x 14 days, Cefepime for an additional 3 days after the ceftriaxone completed, and Flagyl for 8 days.) Now with bacterial superinfection likely secondary to aspiration with gram-negative and anaerobic coverage. Cont care plan as outlined above with supportive care measures. Patient will need at least 2 weeks total of antibiotics in the setting of necrotizing pneumonia. As above (3) Diabetes mellitus type I: brittle diabetic with difficult to control glucose. Glycemic pharmacist managing and has his on basal bolus SQ insulin at this point. Controlled for now. (4) CKD (chronic kidney disease), stage III: Resolved to baseline renal function. Patient has Stage 3 CKD. With contrast administration being given, have encouraged him to hydrate well and will hold am lasix dose. Will check PRP-kidney function remains stable We will check PRP tomorrow-creatinine is slightly higher today is 2.33 Creatinine is minimally high at 2.46 (5) Diabetic neuropathy: Persistent. Home dose gabapentin was 600mg PO QID decreased to 300mg PO BID because of renal insufficiency. Cont with gabapentin 300mg PO TID dosing for now with current renal function. Cont Tylenol and PRN oxy for discomfort. He is starting to become more comfortable. May need to consider a different option than oxycodone for retirement management if not offered by the shelter going home but for now would just get him through this respiratory illness. (6) Hypothyroidism: chronic, stable, Continue levothyroxine per home regimen. (7) Depression: chronic, stable. Cont Prozac per home regimen. (8) Psoriasis: steroid cream BID x 2 weeks. Extensor plaques are improving on exam. (9) DVT prophylaxis: Lovenox DNR/DNI Dipso-Uncertain at this time. Pt continues to remain hypoxic but is overall improved since admission. Patient will need at least 1 more week of antibiotics in the setting of necrotizing pneumonia. Will repeat CT scan of the chest in am with contrast to ensure no worsening picture with persistent severe hypoxia and worsening SOB episodes per patient. Overall prognosis remains poor We will discussed with the [facility] medical lead Admission and Anticipated Discharge Date Admission Date: May 22, 2020 Subjective 07/01/2020 The patient was seen and examined in medical telemetry unit His condition has been deteriorating and he still requiring high flow oxygen up to 15 L to maintain saturation Denies any fever and/or chills 07/02/2020 The patient was seen and examined in medical telemetry unit He remains critical but stable Desaturates with any activity and has been requiring high flow oxygen up to 15 L/min to maintain saturation 07/03/2020 The patient was seen and examined in medical telemetry unit He is seems to be a little bit better today Does not have any shortness of breath at rest and denies any cough Still requiring high flow oxygen to maintain saturation 07/04/2020 The patient was seen and examined in medical telemetry unit He remains critical but stable Gets very short of breath with minimal exertion and requiring high flow oxygen to maintain saturation 07/05/2020 The patient was seen and examined in medical telemetry unit He remains critical but stable Still requiring very high dose of oxygen up to 15 L/min via nasal cannula or oxygen mask to maintain saturation Denies any other significant symptoms 07/06/2020 The patient was seen and examined in medical telemetry unit His condition has been deteriorating Gets very short of breath with minimal exertion Denies any fever and/or chills, any abdominal pain, nausea and or vomiting 07/07/2020 The patient was seen and examined in medical telemetry unit Condition is a little better today but he does not feel that way Remains shortness of breath at rest and requiring high flow oxygen No fever and/or chills 07/08/2020 The patient was seen and examined in medical telemetry unit He has been deteriorating and requiring higher dose of oxygen to maintain saturation He has been trying to participate in physical therapy He remains DNR/DNI Review of Systems 2 Review of Systems: All systems reviewed and are unremarkable except as noted below Constitutional: + weakness Respiratory: + cough, + dyspnea and + dyspnea on exertion Neurologic: + generalized weakness; no tremor(s), no headache(s) and no confusion Physical Exam Physical Exam: Sitting on a chair with moderate shortness of breath at rest Constitutional: + acute distress (Due to shortness of breath), + ill appearing and + thin Eyes: PERRL, conjunctivae normal, anicteric sclerae ENMT: external ear and nose normal, oropharynx normal Neck: trachea midline, no thyromegaly Respiratory: + respiratory distress and + uses accessory muscles; no labored breathing and no cough Auscultation: + diminished lung sounds, + crackles (At the bases) and + wheezes Cardiovascular: Rate/Rhythm: regular rate and regular rhythm Heart Sounds: no murmur Extremities: + edema (Trace edema bilaterally) Gastrointestinal (Abdomen): Inspection/Auscultation: normal bowel sounds; abdomen not distended Percussion/Palpation: abdomen soft; abdomen nontender Musculoskeletal: No acute arthritis in any joint Neurologic: Alert, awake and oriented x3. Generally very weak and lethargic Psychiatric: A+Ox3, euthymic affect Lymphatic: no cervical or axillary lymphadenopathy Results & Data Results & Data ([facility]) Vital Signs (Past 12 Hours) Vital Signs Temp Pulse Resp BP Pulse Ox 07/08/20 11:42 36.4 C L 78 16 119/74 99 07/08/20 07:37 36.8 C 79 16 148/79 H 92 07/08/20 03:07 36.7 C 81 22 94 Laboratory Results Short CBC 07/08/20 Range/Units 07:14 WBC 11.49 H (4.8-10.8) K/uL Hgb 9.6 L (14.0-18.0) g/dL Hct 30.6 L (42-52) % Plt Count 707 H (130-400) K/uL BMP 07/08/20 07:14 Sodium 141 Potassium 3.7 Chloride 104 Carbon Dioxide 29 BUN 27 H Creatinine 2.46 H Glucose 126 H Calcium 8.4 L Medications Administered Current Inpatient Medications Acetaminophen (Acetaminophen 500 Mg Tab) 1,000 mg PO Q8H [facility] Stop: 07/15/20 17:29 Last Admin: 07/08/20 08:18 Dose: 1,000 mg Documented by: Betamethasone Valerate (Betamethasone Suzanne 0.1% Cr 15 Gm) 1 appln EXT BID MARY Stop: 07/28/20 15:59 Last Admin: 07/08/20 07:38 Dose: 1 appln Documented by: Dextrose (Dextrose 50% 50 Ml Syringe) 25 - 50 ml IV UD PRN; Protocol PRN Reason: Hypoglycemia Protocol Stop: 07/22/20 20:59 Enoxaparin Sodium (Enoxaparin Inj 40 Mg/0.4 Ml Syr) 40 mg SQ QAM MARY Stop: 07/25/20 08:59 Last Admin: 07/08/20 07:37 Dose: 40 mg Documented by: Fludrocortisone Acetate (Fludrocortisone Acetate 0.1 Mg Tab) 0.25 mg PO QAM [facility] Stop: 08/01/20 17:29 Last Admin: 07/08/20 07:35 Dose: 0.25 mg Documented by: Gabapentin (Gabapentin 300 Mg Cap) 300 mg PO TID [facility] Stop: 07/11/20 08:59 Last Admin: 07/08/20 13:11 Dose: 300 mg Documented by: Glucagon (Glucagon For Inj 1 Mg Vial) 1 mg IM UD PRN; Protocol PRN Reason: Hypoglycemia Protocol Stop: 07/22/20 20:59 Glucose (Glucose 40% Gel 15 Gm Tube) 15 - 30 gm PO UD PRN; Protocol PRN Reason: Hypoglycemia Protocol Stop: 07/22/20 20:59 Glucose (Glucose 10 Tabs/Tube) 4 - 8 tabs PO UD PRN; Protocol PRN Reason: Hypoglycemia Protocol Stop: 07/22/20 20:59 Lorazepam (Ativan) 0.25 mg in 0.5 mls @ 0.5 mls/min IV Q6H PRN PRN Reason: Anxiety/Agitation Stop: 07/21/20 08:58 Last Admin: 07/08/20 14:28 Dose: 0.5 mls/min Documented by: Furosemide 40 mg/ Syringe 4 mls @ 4 mls/min IV QID [facility] Stop: 08/05/20 12:59 Last Admin: 07/08/20 13:10 Dose: 4 mls/min Documented by: Piperacillin Sod/Tazobactam (Sod 4.5 gm/ Dextrose) 120 mls @ 30 mls/hr IV Q8H [facility]; Protocol Stop: 07/13/20 19:59 Last Admin: 07/08/20 13:10 Dose: 30 mls/hr Documented by: Insulin Aspart (Insulin Aspart 100 Units/Ml 3 Ml Pen) 0 units [facility]; Protocol Stop: 07/25/20 07:29 Last Admin: 07/08/20 13:05 Dose: 2 units Documented by: Insulin Glargine (Insulin Glargine Solostar 100 Units/Ml 3 Ml Pen) [address] [facility]; Protocol Stop: 08/04/20 08:59 Last Admin: 07/08/20 10:32 Dose: 10 units Documented by: Insulin Glargine (Insulin Glargine Solostar 100 Units/Ml 3 Ml Pen) 0 units SC [facility]; Protocol Stop: 08/04/20 20:59 Last Admin: 07/07/20 21:37 Dose: Not Given Documented by: Miscellaneous (Carbohydrates For Hypoglycemia ) 15 - 30 gm PO UD PRN PRN Reason: Hypoglycemia Treatment Stop: 07/22/20 20:59 Last Admin: 06/30/20 17:05 Dose: 15 gm Documented by: Miscellaneous Information (Pharmacy Glycemic Mgmt Consult) 1 ea N/A UD PRN PRN Reason: Consult Stop: 07/24/20 07:33 Miscellaneous Information (Piperacill/Tazobac Consult Active) 1 ea N/A UD PRN PRN Reason: Consult Stop: 08/05/20 12:58 Morphine Sulfate (Morphine Sulfate 2 Mg/Ml Carp) 1 mg IV Q6H PRN PRN Reason: Pain or Agitation Stop: 07/20/20 17:26 Last Admin: 07/07/20 00:18 Dose: 1 mg Documented by: Ondansetron HCl (Ondansetron Inj 2 Mg/Ml 2 Ml Vial) 4 mg IV Q8H PRN PRN Reason: nausea or vomiting Stop: 07/25/20 14:14 Last Admin: 07/05/20 09:44 Dose: 4 mg Documented by: Oxycodone HCl (Oxycodone Hcl Ir 5 Mg Tab (Immediate Release)) 5 mg PO Q6H PRN PRN Reason: Pain Stop: 07/10/20 14:32 Last Admin: 07/07/20 20:45 Dose: 5 mg Documented by: Phenol (Chloraseptic 1.4% Soln 180 Ml Btl) 2 sprays MT Q4H PRN PRN Reason: sore thorat Stop: 07/28/20 14:45 Last Admin: 06/28/20 15:19 Dose: 2 sprays Documented by: Polyethylene Glycol (Polyethylene (Miralax) 17 Gm Pack) 17 gm PO Q6H PRN PRN Reason: Constipation Stop: 07/13/20 18:55 Last Admin: 06/19/20 15:59 Dose: 17 gm Documented by: Potassium Chloride (Potassium Chloride Crtab 20 Meq Tabcr) 40 meq PO BID MARY Stop: 08/06/20 20:59 Last Admin: 07/08/20 07:34 Dose: 40 meq Documented by: Senna/Docusate Sodium (Docusate Sodium/Senna 50/8.6mg Tab) 1 tab PO QAM MARY Stop: 07/14/20 08:59 Last Admin: 07/08/20 08:18 Dose: 1 tab Documented by: Vitamin D (Cholecalciferol 1,000 Units 25 Mcg Tab) 1,000 units PO QAM MARY Stop: 07/12/20 18:29 Last Admin: 07/08/20 07:37 Dose: 1,000 units Documented by: (1) CKD (chronic kidney disease), stage III Chronic kidney disease stage 3 subtype: stage 3b (GFR 30-44) Qualified Code(s): N18.32 - Chronic kidney disease, stage 3b
--- NOTE | 2020-07-08 15:20 | Pulmonology Progress Note ---
Date of Service July 08, 2020 Assessment & Plan (1) Necrotizing pneumonia: Is a 55-year-old incarcerated male that presented with shortness of breath and was found to have lung abscess with pneumonia. He had bilateral pleural effusions. He had a positive Covid test on 06/17/2020. Recommendations: 1. Bilateral pleural effusions: I suspect these may be improving as the patient has had significant net negative intake/output over the last several days. We will repeat chest x-ray in the morning. 2. Lung abscess: Patient currently receiving antibiotics as directed by [facility] infectious disease. A tracheal aspirate was suction was obtained this morning and cultures are currently pending. Procalcitonin and white blood cell count are trending downward. Suspect the patient will need 3 to 6 weeks of antibiotic therapy. Would obtain follow-up imaging at the completion of antimicrobial therapy to evaluate the cavity. 3. Hypoxemic respiratory failure: This is multifactorial. The patient has pulmonary fibrosis, recent viral pneumonia from COVID-19 (positive test 06/17/2020), fluid overload, bilateral pleural effusions, lung abscess. He is somewhat improving and we have been able to wean his oxygen down to 15 L with saturations of 99%. He continues to manifest minimal pulmonary reserve and desaturates with any physical activity however this appears improved compared to where he was a few days ago. 4. We will review his chest x-ray tomorrow and decide if any additional interventions are recommended from a pulmonary standpoint. This will likely require a prolonged rehabilitation process and the patient was advised that the more active he can be and avoiding lying prone in bed, the sooner we may see improvement. (2) Acute respiratory failure with hypoxia: (3) Bilateral pleural effusion: (4) Lung abscess: (5) Fluid overload: (6) COVID-19: (7) Diabetes mellitus type I: (8) Hypotension: (9) Depression: Admission and Anticipated Discharge Date Admission Date: May 22, 2020 Subjective No acute events. Review of Systems Review of Systems: Refer to hospitalist note Physical Exam Physical Exam: Exam per hospital Results & Data Results & Data ([facility]) Vital Signs (Past 12 Hours) Vital Signs Temp Pulse Resp BP Pulse Ox 07/08/20 11:42 36.4 C L 78 16 119/74 99 07/08/20 07:37 36.8 C 79 16 148/79 H 92 Laboratory Results 07/08/20 07:14 07/08/20 07:14 Diagnostic Findings No new films since the PG Care Time/CCT Total # of Minutes Spent Total Time Spent with Patient: Total time spent is greater than 50% in coordination of care (as documented) at patient's floor/unit and/or counseling patient: Coding Level of Care Code 07789 Subseq Hosp Care Lvl 2 Diagnoses Necrotizing pneumonia J85.0 Acute respiratory failure with hypoxia J96.01 Bilateral pleural effusion J90 Lung abscess J85.2 Fluid overload E87.70 COVID-19 U07.1 Diabetes mellitus type I E10.9 Hypotension I95.9 Depression F32.9
[2020-07-09] MEDS: ACETAMINOPHEN 500 MG TAB PO SCH ×3 (01:28→16:32)
[2020-07-09] MEDS: PIPERACILLIN/TAZOBACTAM 4.5 GM in DEXTROSE 5% 100 ML IV SCH ×3 (03:30→20:10)
[2020-07-09] MEDS: ENOXAPARIN INJ 40 MG/0.4 ML SYR SQ SCH (07:43)
[2020-07-09] MEDS: POTASSIUM CHLORIDE CRTAB 20 MEQ TABCR PO SCH ×2 (07:43→21:09)
[2020-07-09] MEDS: oxyCODONE HCL IR 5 MG TAB (IMMEDIATE RELEASE) PO PRN ×2 (07:44→16:32)
[2020-07-09] MEDS: FLUDROCORTISONE ACETATE 0.1 MG TAB PO SCH (07:44)
[2020-07-09] MEDS: GABAPENTIN 300 MG CAP PO SCH ×3 (07:45→21:09)
[2020-07-09] MEDS: DOCUSATE SODIUM/SENNA 50/8.6MG TAB PO SCH (07:45)
[2020-07-09] MEDS: FUROSEMIDE 40 MG in SYRINGE 0 ML IV SCH ×3 (07:45→16:36)
[2020-07-09] MEDS: BETAMETHASONE VAL 0.1% CR 15 GM EXT SCH ×2 (07:46→21:10)
[2020-07-09] MEDS: LORazepam 0.25 MG/0.5 ML VIAL IV PRN ×3 (07:48→22:08)
--- NOTE | 2020-07-09 08:17 | XRay Report ---
XR chest 1V portable CLINICAL HISTORY: Respiratory failure COMPARISON STUDY: 07/05/2020 FINDINGS: The heart remains enlarged. There are extensive bilateral pulmonary airspace opacities cons istent with a multifocal pneumonia. Trace pleural effusions are suspected.[ IMPRESSION: No change in the extensive bilateral pulmonary airspace opacities consistent with a multi focal pneumonia. ACT 112: Negative or not required by law. Electronically signed by: Jason Ram M.D. 07/09/2020 8:16 AM
[2020-07-09] MEDS: INSULIN GLARGINE SOLOSTAR 100 UNITS/ML 3 ML PEN SC SCH (09:16)
[2020-07-09] MEDS: INSULIN ASPART 100 UNITS/ML 3 ML PEN SC SCH ×4 (09:16→20:55)
[2020-07-09] MEDS: CHOLECALCIFEROL 1,000 UNITS 25 MCG TAB PO SCH (09:58)
[2020-07-09 10:39] LABS: BUN Creatinine Ratio 11.5 (10-20); Calcium 8.4 mg/dl (8.5-10.1); Creatinine Clr Calc Pharmacy 33.5 ml/min; Est GFR (African American) 29.2; Est GFR (Non-African American) 25.2; Potassium 3.8 mmol/L (3.5-5.1)
--- NOTE | 2020-07-09 11:49 | Nephrology Progress Note ---
Date of Service July 09, 2020 Assessment & Plan (1) CKD (chronic kidney disease), stage III: Per hospitalist on paperwork from admission, baseline creatinine 2.3 in 12/2019. No OP/prior to admission creatinine documented. Pt presented with creatinine 2.5 on 05/22; then bumped to 05/27 in mid to low 3s. peaked at 4.5 on 06/02; creat under 3 since 06/10; at last labs on 06/29 in low 2's, at baseline. uacm w/ 3+ dipstick protein, 1+ blood, consistent with even 2018 sediment; no infection or other inflammation. pt is open to dialysis if need arises; though he is doing better from renal standpoint than earlier this month. 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) and plan slow taper w/ dosing stepdown q 2-3 wks -stopped ACEI at tihs point (3) COVID-19: on high flow 02 for a few weeks now and still dependent; w/ near intubation / code purple for hypoxia 06/01 AM; ICU status downgraded 06/03; recurrent hypoxemic episodes corrected with self-proning >> he has been on 6L or more 02 continuously since 05/28; currently up to 30L/min on oxymask -f/u CT results 06/30 >> remarkable for larger ERASMO abscess c/w worsening necrotizing pneumonia; increasing BL pl effusions and multifocal airspace opacities >> consider NPO status and PPN; recommend touching base again w/ inf dzs [facility] if not already done in wake of second CT; d/w Dr Carlos 07/09 (4) Anemia: has had pRBC this admission on 06/22 >> t stn same day 6% -recheck cbc in am -completed venofer load wk of 06/29 Admission and Anticipated Discharge Date Admission Date: May 22, 2020 Subjective needing more 02 today>up to 30L most of day; not feeling more sob though; no other c/o Review of Systems Review of Systems: All systems reviewed & are unremarkable except as noted in HPI & below Physical Exam Constitutional: well developed, well nourished and + thin; no acute distress Eyes: EOM intact bilaterally ENMT: Ears: no external ear abnormality Nose: no external nose abnormality Mouth: + dry oral mucous membranes Neck: no nuchal rigidity Respiratory: able to speak in complete sentences; + abnormal respiratory effort, no labored breathing, no cough, not tachypneic, no paradoxical chest wall movement and no paradoxical thoraco-abdominal movemnt Auscultation: + diminished lung sounds (markedly and no crackles) and + crackles (through posterior case ? fewer) Cardiovascular: RRR, no murmur, no edema Rate/Rhythm: regular rate and regular rhythm Gastrointestinal (Abdomen): Inspection/Auscultation: abdomen normal to inspection and normal bowel sounds Percussion/Palpation: abdomen soft; abdomen nontender Musculoskeletal: Extremities: strength 5/5 throughout Skin: no rashes, warm and dry Neurologic: gutierrez, fluent speech, no tremor Psychiatric: A+Ox3, euthymic affect Orientation: alert and oriented x 3 Eye Contact: good eye contact Affect: + anxious affect and + flat affect Genitourinary: mukherjee w/ ample urine Results & Data ([facility]) Vital Signs (Past 12 Hours) Vital Signs Temp Pulse Pulse Resp BP BP Pulse Ox 07/09/20 11:34 36.5 C 84 16 102/62 83 L 07/09/20 07:26 36.7 C 85 20 135/72 94 07/09/20 02:49 36.8 C 79 20 128/75 93 07/09/20 00:03 81 Laboratory Results 07/08/20 07:14 12/17/20 09:44 (1) CKD (chronic kidney disease), stage III Chronic kidney disease stage 3 subtype: stage 3b (GFR 30-44) Qualified Code(s): N18.32 - Chronic kidney disease, stage 3b (2) Anemia Anemia type: iron deficiency Iron deficiency anemia type: unspecified iron deficiency Qualified Code(s): D50.9 - Iron deficiency anemia, unspecified
[2020-07-09] MEDS ORDERED: INSULIN GLARGINE SOLOSTAR 100 UNITS/ML 3 ML PEN SC ONE (12:30)
--- NOTE | 2020-07-09 13:04 | Pharmacy Report ---
Glycemic Control Progress Note - Date of Service July 09, 2020 - Scope Glycemic Pharmacist consulted for glycemic control to write orders per [facility] inpatient glycemic control protocol. - Objective Accuchecks BSG(last 24 hours):: 07/08/20 07/08/20 07/09/20 16:50 20:22 07:37 Glucose POC Glucose 263 H 201 H 182 H 07/09/20 07/09/20 09:44 11:46 Glucose 202 H POC Glucose 221 H HbA1c:: Hemoglobin A1c 8.3 % (4.5-5.6) H 05/23/20 05:24 - Recent Pertinent Medications The patient is currently receiving: * Basal insulin: Lantus 10 units every 24 hours plus an additional 0-3 units at bedtime depending on blood sugar * Correctional Insulin: Novolog Correction per scale ACHS Goal Range: Low 120 mg/dL - High 160 mg/dL Correction Factor: 40 mg/dL/unit * Prandial insulin: Per carb ratio of 1 unit per 9 grams CHO consumed - Outpatient Anti-Diabetic Meds Lantus 15 units in the morning and 8 units in the PM - Assessment & Plan ASSESSMENT: * See progress note from 05/24/20 for more background info, in short: * Pt receiving SQ basal bolus insulin regimen for hyperglycemia secondary to baseline DM (outpatient regimen on hold). Patient currently receiving Zosyn for necrotizing pneumonia. * Patient is currently receiving an average of 20 units of insulin per day * 13 units of basal insulin * 7 units of prandial/correctional insulin * BSGs ranging 145 - 263 mg/dl over the past 24hrs * Changes needed to insulin regimen: * AM Fasting BSG = 182 mg/dl. This is above goal range for patient based on inpatient targets and co-morbidities. The patient is eating slightly more today. Also had a couple days where he received only 10 units of basal insulin (which was probably too little). Will give additional 3 units at lunch today to make 13 units. * Post-prandial BSGs did trend upwards yesterday. Tightened CF slightly (as more basal needed). Hesitate to tighten CR as 1 unit per 8 grams of carbohydrates appears to be too much. May be better tolerated now since goal range is higher. * Total daily dose is dependent upon patient's oral intake. PLAN FOR INPATIENT GLYCEMIC CONTROL: * Continuing Lantus 10 units SQ qAM + 3 extra units at lunchtime * TIGHTENING correction factor to 35 mg/dl/unit * Continuing carb ratio of 1 unit per 9 grams CHO consumed * Continuing goal range of Low 120 mg/dL - High 160 mg/dL * Please note that the plan above was derived based on current level of insulin resistance and hospital stress. These recommendations are appropriate for inpatient admission only. Plan of care upon discharge will need to be reassessed to avoid potential outpatient hypo/hyperglycemia. Thank you.
[2020-07-09] MEDS: MoRPHine SULFATE 2 MG/ML CARP IV PRN (13:14)
--- NOTE | 2020-07-09 14:15 | Pulmonology Progress Note ---
Date of Service July 09, 2020 Assessment & Plan (1) Necrotizing pneumonia: Is a 55-year-old incarcerated male that presented with shortness of breath and was found to have lung abscess with pneumonia. He had bilateral pleural effusions. He had a positive Covid test on 06/17/2020. Recommendations: 1. Bilateral pleural effusions: These appear much smaller on the current film in association with the diuretics that the patient has been undergoing. 2. Lung abscess: Patient currently receiving antibiotics as directed by [facility] infectious disease. Antibiotics per ID. Would recommend a follow-up CT scan 3 to 4 weeks after appropriate antimicrobial therapy. 3. Hypoxemic respiratory failure: This is multifactorial. The patient has pulmonary fibrosis, recent viral pneumonia from COVID-19 (positive test 06/17/2020), fluid overload, bilateral pleural effusions, lung abscess. He is stable at this point time although not significantly improved. Unfortunately I think this is going to be a very prolonged process. Bronchoscopy is unlikely to yield any actionable information and I do not think the patient is a candidate for any sort of lung biopsy. 45 days out, I think there is little utility in high-dose steroids or additional immune suppression. Patient could have some underlying organizing pneumonia postinfectious however he would not tolerate a biopsy or bronchoscopy without having to be reintubated and he is DNR/DNI status. 4. Unfortunately have little else to offer this patient at this point time. We will sign off at this time (2) Acute respiratory failure with hypoxia: (3) Bilateral pleural effusion: (4) Lung abscess: (5) Fluid overload: (6) COVID-19: (7) Diabetes mellitus type I: (8) Hypotension: (9) Depression: Admission and Anticipated Discharge Date Admission Date: May 22, 2020 Subjective No significant changes. Review of Systems Review of Systems: Refer to hospitalist note Physical Exam Constitutional: + ill appearing; no acute distress Neck: trachea midline, no thyromegaly Respiratory: normal respiratory effort Auscultation: + crackles, + rales and + wheezes Cardiovascular: RRR, no murmur, no edema Gastrointestinal (Abdomen): normal bowel sounds, soft, nontender, no hepatosplenomegaly Musculoskeletal: Extremities: extremities normal to inspection Skin: no rashes, warm and dry Lymphatic: no cervical lymphadenopathy Results & Data Results & Data ([facility]) Vital Signs (Past 12 Hours) Vital Signs Temp Pulse Resp BP BP Pulse Ox 07/09/20 11:34 36.5 C 84 16 102/62 83 L 07/09/20 07:26 36.7 C 85 20 135/72 94 07/09/20 02:49 36.8 C 79 20 128/75 93 Laboratory Results 07/08/20 07:14 07/09/20 09:44 Diagnostic Findings Chest x-ray from today was independently reviewed. There are persistent bilateral airspace opacities not significantly changed from previous. Small pleural effusions are identified. PG Care Time/CCT Total # of Minutes Spent Total Time Spent with Patient: Total time spent is greater than 50% in coordination of care (as documented) at patient's floor/unit and/or counseling patient: Coding Level of Care Code 01922 Subseq Hosp Care Lvl 2 Diagnoses Necrotizing pneumonia J85.0 Acute respiratory failure with hypoxia J96.01 Bilateral pleural effusion J90 Lung abscess J85.2 Fluid overload E87.70 COVID-19 U07.1 Diabetes mellitus type I E10.9 Hypotension I95.9 Depression F32.9
--- NOTE | 2020-07-09 18:38 | Hospitalist Progress Note ---
Date of Service July 09, 2020 Assessment & Plan (1) Acute respiratory failure with hypoxia: Acute respiratory distress syndrome with severe hypoxic respiratory failure on admission secondary to COVID-19 infection Received conv plasma on 05/27. Received Steroids x 3 weeks and tapered off. Not a candidate for remdesivir due to renal failure -CT Chest revealed multifocal airspace consolidation with necrotizing/cavitary pneumonia in the ERASMO, and fluid in the distal esophagus. -Repeat CT scan showed B/L extensive necrotizing pneumonia,bilateral pleural effusion and left upper lobe lung abscess. CT scan was negative for any acute pulmonary embolism -HIV screen is negative -Discussed with ID on 07/09/20 -Appreciate pulmonology, ID input -Received multiple courses of antibiotics including Rocephin, doxycycline, cefepime, Unasyn -Plan to continue zosyn while hospitalized transition to Augmentin as able upon discharge -Needs to complete 4 weeks of antibiotic therapy starting June 23 -Continue supplemental oxygen as needed -We will need repeat imaging studies after completion of antibiotic course Bilateral pleural effusion Continue IV lasix May not tolerate any procedures Appreciate Nephrology/Pulm Input Monitor renal function Left upper lobe lung abscess As above Will need prolonged intravenous antibiotic Needs follow up with ID/Pulm upon discharge (2) Pneumonia due to COVID-19 virus: Completed multiple antibiotic course while admitted. (Doxycycline 100mg BID 5 dys, stopped for 2, resumed 05/30 for 7 full days, Ceftriaxone x 14 days, Cefepime for an additional 3 days after the ceftriaxone completed, and Flagyl for 8 days. Also received Unasyn and currently on Zosyn from 07/06) Continue antibiotics as above (3) Diabetes mellitus type I: Glycemic pharmacist managing Continue Insulin therapy Monitor BGs (4) CKD (chronic kidney disease), stage III: XOCHITL on CKD III ? Baseline Cr: 2.3 Renally adjust medications as needed Cr:2.7 today Appreciate nephrology input Monitor renal function Avoid nephrotoxic agents as able IV lasix adjusted (5) Diabetic neuropathy: Gabapentin decreased to 300mg PO TID due to renal insufficiency. (6) Hypothyroidism: Continue levothyroxine (7) Depression: Continue Prozac (8) Psoriasis: continue steroid cream BID (9) DVT prophylaxis: Lovenox SQ Code Status DNR/DNI Disposition To be determined Poor prognosis Admission and Anticipated Discharge Date Admission Date: May 22, 2020 Subjective Patient is seen and examined States no change in dyspnea No significant cough Reports nausea, but no vomiting Denies chest pain, abdominal pain, dizziness, diarrhea [employer] Guards at bedside Still requiring significant oxygen supplementation Discussed with ID today Review of Systems Review of Systems: All systems reviewed & are unremarkable except as noted in HPI & below Physical Exam Physical Exam: Physical Exam: Vitals signs as noted above General Appearance: Ill-appearing, no apparent distress Head: normocephalic, Atraumatic Eyes: normal inspection, EOMI Neck: supple, Trachea midline Respiratory/Chest: Decreased breath sounds, basal crackles, Rales Cardiovascular: S1, S2, No murmur Abdomen/GI:Soft, Non tender, Bowel sounds present Extremities/Musculoskelatal:normal inspection, no edema Neurologic/Psych:AAOX3, grossly no focal neurological deficits Skin: normal color, warm Results & Data Results & Data ([place]) Vital Signs (Past 12 Hours) Vital Signs Temp Pulse Pulse Resp BP BP Pulse Ox 07/09/20 15:32 78 07/09/20 14:43 36.4 C L 81 18 147/80 H 92 07/09/20 11:34 36.5 C 84 16 102/62 83 L 07/09/20 08:00 79 07/09/20 07:26 36.7 C 85 20 135/72 94 Laboratory Results [facility] 07/09/20 09:44 Sodium 140 Potassium 3.8 Chloride 104 Carbon Dioxide 30 BUN 31 H Creatinine 2.70 H Glucose 202 H Calcium 8.4 L (1) CKD (chronic kidney disease), stage III Chronic kidney disease stage 3 subtype: stage 3b (GFR 30-44) Qualified Code(s): N18.32 - Chronic kidney disease, stage 3b
[2020-07-10] MEDS: ACETAMINOPHEN 500 MG TAB PO SCH ×3 (01:35→18:35)
[2020-07-10] MEDS: PIPERACILLIN/TAZOBACTAM 4.5 GM in DEXTROSE 5% 100 ML IV SCH ×3 (04:01→20:49)
[2020-07-10] MEDS: oxyCODONE HCL IR 5 MG TAB (IMMEDIATE RELEASE) PO PRN ×2 (04:08→13:33)
[2020-07-10] MEDS: FUROSEMIDE 40 MG in SYRINGE 0 ML IV SCH ×3 (06:36→18:22)
[2020-07-10 07:28] LABS: Basophils # (auto) 0.22 K/uL (0-0.2); Basophils % (auto) 1.8 %; Eosinophils # (auto) 0.87 K/uL (0-0.5); Eosinophils % (auto) 7.2 %; Hematocrit (blood only) 28.2 % (42-52); Hemoglobin 8.9 g/dL (14.0-18.0); Immature Granulocytes # (auto) 0.13 K/uL (0.00-0.02); Immature Granulocytes % (auto) 1.1 %; Lymphocytes # (auto) 2.64 K/uL (1.2-3.4); Lymphocytes % (auto) 21.8 %; Mean Corpuscular Hemoglobin 27.9 pg (25-34); Mean Corpuscular Hgb Conc 31.6 g/dL (32-36); Mean Corpuscular Volume 88.4 fL (80-100); Mean Platelet Volume 9.4 fL (7.4-10.4); Monocytes # (auto) 0.77 K/uL (0.11-0.59); Monocytes % (auto) 6.4 %; Neutrophils # (auto) 7.49 K/uL (1.4-6.5); Neutrophils % (auto) 61.7 %; Platelet Count 617 K/uL (130-400); RDW Coefficient of Variation 16.9 % (11.5-14.5); RDW Standard Deviation 53.1 fL (36.4-46.3); Red Blood Count 3.19 M/uL (4.7-6.1); White Blood Count 12.12 K/uL (4.8-10.8)
[2020-07-10 07:59] LABS: BUN Creatinine Ratio 12.1 (10-20); Calcium 8.1 mg/dl (8.5-10.1); Creatinine Clr Calc Pharmacy 34.6 ml/min; Est GFR (African American) 30.3; Est GFR (Non-African American) 26.1; Magnesium 1.9 mg/dl (1.8-2.4); Potassium 3.8 mmol/L (3.5-5.1)
[2020-07-10] MEDS: INSULIN ASPART 100 UNITS/ML 3 ML PEN SC SCH ×4 (09:45→20:57)
[2020-07-10] MEDS: BETAMETHASONE VAL 0.1% CR 15 GM EXT SCH ×2 (10:08→21:00)
[2020-07-10] MEDS: ENOXAPARIN INJ 40 MG/0.4 ML SYR SQ SCH (10:08)
[2020-07-10] MEDS: INSULIN GLARGINE SOLOSTAR 100 UNITS/ML 3 ML PEN SC SCH ×2 (10:08→20:54)
[2020-07-10] MEDS: POTASSIUM CHLORIDE CRTAB 20 MEQ TABCR PO SCH ×2 (10:09→20:49)
[2020-07-10] MEDS: GABAPENTIN 300 MG CAP PO SCH ×3 (10:09→20:50)
[2020-07-10] MEDS: CHOLECALCIFEROL 1,000 UNITS 25 MCG TAB PO SCH (10:09)
[2020-07-10] MEDS: FLUDROCORTISONE ACETATE 0.1 MG TAB PO SCH (10:10)
[2020-07-10] MEDS: DOCUSATE SODIUM/SENNA 50/8.6MG TAB PO SCH (10:11)
[2020-07-10] MEDS: LORazepam 0.25 MG/0.5 ML VIAL IV PRN ×2 (10:11→18:34)
--- NOTE | 2020-07-10 11:50 | Pharmacy Report ---
Glycemic Control Progress Note - Date of Service July 10, 2020 - Scope Glycemic Pharmacist consulted for glycemic control to write orders per [facility] inpatient glycemic control protocol. - Objective Accuchecks BSG(last 24 hours):: 07/09/20 07/09/20 07/09/20 11:46 16:14 20:12 Glucose POC Glucose 221 H 211 H 109 H 07/10/20 07/10/20 07/10/20 06:42 07:49 11:29 Glucose 83 POC Glucose 106 H 135 H HbA1c:: Hemoglobin A1c 8.3 % (4.5-5.6) H 05/23/20 05:24 - Recent Pertinent Medications The patient is currently receiving: * Basal insulin: Lantus 10 units in the morning and 3 units at lunch (was previously at bedtime but moved up earlier yesterday) * Correctional Insulin: Novolog Correction per scale ACHS Goal Range: Low 120 mg/dL - High 160 mg/dL Correction Factor: 35 mg/dL/unit * Prandial insulin: Per carb ratio of 1 unit per 9 grams CHO consumed - Outpatient Anti-Diabetic Meds Lantus 15 units in the morning and 8 units in the evening - Assessment & Plan ASSESSMENT: * See progress note from 05/24/20 for more background info, in short: * Pt receiving SQ basal bolus insulin regimen for hyperglycemia secondary to baseline DM (outpatient regimen on hold). * Patient is currently receiving an average of 29 units of insulin per day * 13 units of basal insulin * 16 units of prandial/correctional insulin * BSGs ranging 109 - 221 mg/dl over the past 24hrs * Changes needed to insulin regimen: * AM Fasting BSG = 106 mg/dl. This is in goal range for patient based on inpatient targets and co-morbidities. Therefore Basal insulin will be continued. * Post-prandial BSGs are in range therefore no changes needed to CR. Will loosen CF since patient's basal appears to be more on track. * Total daily dose = ~30 units. PLAN FOR INPATIENT GLYCEMIC CONTROL: * Continuing Lantus 10 units SQ daily plus 2-3 units at bedtime * LOOSENING correction factor to 40 mg/dl/unit * Continuing carb ratio of 1 unit per 9 grams CHO consumed * Continuing goal range of Low 120 mg/dL - High 160 mg/dL * Please note that the plan above was derived based on current level of insulin resistance and hospital stress. These recommendations are appropriate for inpatient admission only. Plan of care upon discharge will need to be reassessed to avoid potential outpatient hypo/hyperglycemia. Thank you.
--- NOTE | 2020-07-10 20:41 | Hospitalist Progress Note ---
Date of Service July 10, 2020 Assessment & Plan (1) Acute respiratory failure with hypoxia: Acute respiratory distress syndrome with severe hypoxic respiratory failure on admission secondary to COVID-19 infection Received conv plasma on 05/27. Received Steroids x 3 weeks and tapered off. Not a candidate for remdesivir due to renal failure -CT Chest revealed multifocal airspace consolidation with necrotizing/cavitary pneumonia in the ERASMO, and fluid in the distal esophagus. -Repeat CT scan showed B/L extensive necrotizing pneumonia,bilateral pleural effusion and left upper lobe lung abscess. CT scan was negative for any acute pulmonary embolism -HIV screen is negative -Discussed with ID on 07/09/20 -Appreciate pulmonology, ID input -Received multiple courses of antibiotics including Rocephin, doxycycline, cefepime, Unasyn -Plan to continue zosyn while hospitalized transition to Augmentin as able upon discharge -Needs to complete 4 weeks of antibiotic therapy starting June 23 -Continue supplemental oxygen as needed -We will need repeat imaging studies after completion of antibiotic course -Continue current management Bilateral pleural effusion Continue IV lasix May not tolerate any procedures Appreciate Nephrology/Pulm Input Monitor renal function Left upper lobe lung abscess As above Will need prolonged intravenous antibiotic Needs follow up with ID/Pulm upon discharge (2) Pneumonia due to COVID-19 virus: Completed multiple antibiotic course while admitted. (Doxycycline 100mg BID 5 dys, stopped for 2, resumed 05/30 for 7 full days, Ceftriaxone x 14 days, Cefepime for an additional 3 days after the ceftriaxone completed, and Flagyl for 8 days. Also received Unasyn and currently on Zosyn from 07/06) Continue antibiotics as above (3) Diabetes mellitus type I: Glycemic pharmacist managing Continue Insulin therapy Monitor BGs (4) CKD (chronic kidney disease), stage III: XOCHITL on CKD III ? Baseline Cr: 2.3 Renally adjust medications as needed Cr:2.62 today Appreciate nephrology input Monitor renal function Avoid nephrotoxic agents as able Continue IV lasix as per Nephrology (5) Diabetic neuropathy: Gabapentin decreased to 300mg PO TID due to renal insufficiency. (6) Hypothyroidism: Continue levothyroxine (7) Depression: Continue Prozac (8) Psoriasis: continue steroid cream BID (9) DVT prophylaxis: Lovenox SQ Code Status DNR/DNI Disposition To be determined Poor prognosis Admission and Anticipated Discharge Date Admission Date: May 22, 2020 Subjective Patient is seen and examined No new complaints Dyspnea slightly better today Less cough Denies chest pain, abdominal pain, dizziness, diarrhea Half-Way Guards at bedside Still requiring significant oxygen supplementation Review of Systems 2 Review of Systems: All systems reviewed & are unremarkable except as noted in HPI & below Physical Exam Physical Exam: Physical Exam: Vitals signs as noted above General Appearance: Ill-appearing, no apparent distress Head: normocephalic, Atraumatic Eyes: normal inspection, EOMI Neck: supple, Trachea midline Respiratory/Chest: Decreased breath sounds, basal crackles, Rales Cardiovascular: S1, S2, No murmur Abdomen/GI:Soft, Non tender, Bowel sounds present Extremities/Musculoskelatal:normal inspection, no edema Neurologic/Psych:AAOX3, grossly no focal neurological deficits Skin: normal color, warm Results & Data Results & Data ([facility]) Vital Signs (Past 12 Hours) Vital Signs Temp Pulse Pulse Resp BP BP Pulse Ox 07/10/20 19:00 36.4 C L 82 16 160/86 H 90 07/10/20 17:43 94 07/10/20 16:00 80 07/10/20 14:52 36.3 C L 82 20 127/71 90 07/10/20 12:00 36.8 C 82 18 121/62 99 Laboratory Results Short CBC 07/10/20 Range/Units 06:42 WBC 12.12 H (4.8-10.8) K/uL Hgb 8.9 L (14.0-18.0) g/dL Hct 28.2 L (42-52) % Plt Count 617 H (130-400) K/uL BMP 07/10/20 06:42 Sodium 141 Potassium 3.8 Chloride 107 Carbon Dioxide 29 BUN 32 H Creatinine 2.62 H Glucose 83 Calcium 8.1 L (1) CKD (chronic kidney disease), stage III Chronic kidney disease stage 3 subtype: stage 3b (GFR 30-44) Qualified Code(s): N18.32 - Chronic kidney disease, stage 3b
[2020-07-11] MEDS: ACETAMINOPHEN 500 MG TAB PO SCH ×3 (01:23→17:37)
[2020-07-11] MEDS: INSULIN ASPART 100 UNITS/ML 3 ML PEN SC SCH ×6 (01:25→21:17)
[2020-07-11] MEDS: LORazepam 0.25 MG/0.5 ML VIAL IV PRN ×3 (02:27→17:37)
[2020-07-11] MEDS: PIPERACILLIN/TAZOBACTAM 4.5 GM in DEXTROSE 5% 100 ML IV SCH ×3 (04:24→21:37)
[2020-07-11 08:06] LABS: Basophils # (auto) 0.22 K/uL (0-0.2); Basophils % (auto) 1.8 %; Eosinophils # (auto) 0.69 K/uL (0-0.5); Eosinophils % (auto) 5.6 %; Hematocrit (blood only) 29.9 % (42-52); Hemoglobin 9.4 g/dL (14.0-18.0); Immature Granulocytes # (auto) 0.16 K/uL (0.00-0.02); Immature Granulocytes % (auto) 1.3 %; Lymphocytes % (auto) 19.5 %; Mean Corpuscular Hemoglobin 27.8 pg (25-34); Mean Corpuscular Hgb Conc 31.4 g/dL (32-36); Mean Corpuscular Volume 88.5 fL (80-100); Mean Platelet Volume 9.5 fL (7.4-10.4); Monocytes # (auto) 0.99 K/uL (0.11-0.59); Monocytes % (auto) 8.1 %; Neutrophils # (auto) 7.83 K/uL (1.4-6.5); Neutrophils % (auto) 63.7 %; Platelet Count 603 K/uL (130-400); RDW Coefficient of Variation 17.2 % (11.5-14.5); RDW Standard Deviation 53.7 fL (36.4-46.3); Red Blood Count 3.38 M/uL (4.7-6.1); White Blood Count 12.29 K/uL (4.8-10.8)
[2020-07-11 08:37] LABS: BUN Creatinine Ratio 11.7 (10-20); Calcium 8.5 mg/dl (8.5-10.1); Est GFR (African American) 29.7; Est GFR (Non-African American) 25.7; Potassium 3.9 mmol/L (3.5-5.1)
[2020-07-11] MEDS: CHOLECALCIFEROL 1,000 UNITS 25 MCG TAB PO SCH (09:14)
[2020-07-11] MEDS: DOCUSATE SODIUM/SENNA 50/8.6MG TAB PO SCH (09:14)
[2020-07-11] MEDS: BETAMETHASONE VAL 0.1% CR 15 GM EXT SCH ×2 (09:14→21:18)
[2020-07-11] MEDS: INSULIN GLARGINE SOLOSTAR 100 UNITS/ML 3 ML PEN SC SCH ×2 (09:15→21:17)
[2020-07-11] MEDS: POTASSIUM CHLORIDE CRTAB 20 MEQ TABCR PO SCH ×2 (09:15→21:16)
[2020-07-11] MEDS: ENOXAPARIN INJ 40 MG/0.4 ML SYR SQ SCH (09:15)
[2020-07-11] MEDS: FLUDROCORTISONE ACETATE 0.1 MG TAB PO SCH (09:16)
[2020-07-11] MEDS: FUROSEMIDE 40 MG in SYRINGE 0 ML IV SCH ×3 (09:19→17:38)
--- NOTE | 2020-07-11 18:16 | Hospitalist Progress Note ---
Date of Service July 11, 2020 Assessment & Plan (1) Acute respiratory failure with hypoxia: Acute respiratory distress syndrome with severe hypoxic respiratory failure on admission secondary to COVID-19 infection Received conv plasma on 05/27. Received Steroids x 3 weeks and tapered off. Not a candidate for remdesivir due to renal failure -CT Chest revealed multifocal airspace consolidation with necrotizing/cavitary pneumonia in the ERASMO, and fluid in the distal esophagus. -Repeat CT scan showed B/L extensive necrotizing pneumonia,bilateral pleural effusion and left upper lobe lung abscess. CT scan was negative for any acute pulmonary embolism -HIV screen is negative -Discussed with ID on 07/09/20 -Appreciate pulmonology, ID input -Received multiple courses of antibiotics including Rocephin, doxycycline, cefepime, Unasyn -Plan to continue zosyn while hospitalized transition to Augmentin as able upon discharge -Needs to complete 4 weeks of antibiotic therapy starting June 23 -Continue supplemental oxygen as needed -We will need repeat imaging studies after completion of antibiotic course -Clinically not showing much improvement -Patient prefers to continue current management Bilateral pleural effusion Continue IV lasix May not tolerate any procedures Appreciate Nephrology/Pulm Input Monitor renal function Left upper lobe lung abscess As above Will need prolonged intravenous antibiotic Needs follow up with ID/Pulm upon discharge (2) Pneumonia due to COVID-19 virus: Completed multiple antibiotic course while admitted. (Doxycycline 100mg BID 5 dys, stopped for 2, resumed 05/30 for 7 full days, Ceftriaxone x 14 days, Cefepime for an additional 3 days after the ceftriaxone completed, and Flagyl for 8 days. Also received Unasyn and currently on Zosyn from 07/06) Continue antibiotics as above (3) Diabetes mellitus type I: Glycemic pharmacist managing Continue Insulin therapy Monitor BGs (4) CKD (chronic kidney disease), stage III: XOCHITL on CKD III ? Baseline Cr: 2.3 Renally adjust medications as needed Cr:2.66 today Appreciate nephrology input Monitor renal function Avoid nephrotoxic agents as able Continue IV lasix as per Nephrology (5) Diabetic neuropathy: Gabapentin decreased to 300mg PO TID due to renal insufficiency. (6) Hypothyroidism: Continue levothyroxine (7) Depression: Continue Prozac (8) Psoriasis: continue steroid cream BID (9) DVT prophylaxis: Lovenox SQ Code Status DNR/DNI Disposition To be determined Poor prognosis Admission and Anticipated Discharge Date Admission Date: May 22, 2020 Subjective Patient is seen and examined Subjectively feels no change from yesterday Still requiring significant supplemental oxygen to maintain Sats Desaturates easily with feeds/movement Reports intermittent dyspnea Minimal cough Denies chest pain, abdominal pain, dizziness, diarrhea [employer] Guards at bedside Review of Systems Review of Systems: All systems reviewed & are unremarkable except as noted in HPI & below Physical Exam Physical Exam: Physical Exam: Vitals signs as noted above General Appearance: Ill-appearing, no apparent distress Head: normocephalic, Atraumatic Eyes: normal inspection, EOMI Neck: supple, Trachea midline Respiratory/Chest: Decreased breath sounds, b/l basal crackles, Rales Cardiovascular: S1, S2, No murmur Abdomen/GI:Soft, Non tender, Bowel sounds present Extremities/Musculoskelatal:normal inspection, no edema Neurologic/Psych:AAOX3, grossly no focal neurological deficits Skin: normal color, warm Results & Data Results & Data ([facility]) Vital Signs (Past 12 Hours) Vital Signs Temp Pulse Pulse Resp BP Pulse Ox 07/11/20 15:23 36.9 C 76 20 92/58 L 98 07/11/20 11:50 36.9 C 76 20 110/71 96 07/11/20 08:00 77 (1) CKD (chronic kidney disease), stage III Chronic kidney disease stage 3 subtype: stage 3b (GFR 30-44) Qualified Code(s): N18.32 - Chronic kidney disease, stage 3b
[2020-07-12] MEDS: LORazepam 0.25 MG/0.5 ML VIAL IV PRN ×3 (01:59→18:36)
[2020-07-12] MEDS: ACETAMINOPHEN 500 MG TAB PO SCH ×3 (02:01→17:22)
[2020-07-12] MEDS: PIPERACILLIN/TAZOBACTAM 4.5 GM in DEXTROSE 5% 100 ML IV SCH ×3 (04:15→19:49)
[2020-07-12] MEDS: FUROSEMIDE 40 MG in SYRINGE 0 ML IV SCH ×3 (06:34→17:22)
[2020-07-12 07:35] LABS: Hematocrit (blood only) 30.6 % (42-52); Hemoglobin 9.6 g/dL (14.0-18.0); Mean Corpuscular Hemoglobin 27.9 pg (25-34); Mean Corpuscular Hgb Conc 31.4 g/dL (32-36); Mean Platelet Volume 9.8 fL (7.4-10.4); Platelet Count 626 K/uL (130-400); RDW Coefficient of Variation 17.6 % (11.5-14.5); Red Blood Count 3.44 M/uL (4.7-6.1); White Blood Count 11.68 K/uL (4.8-10.8)
[2020-07-12 08:17] LABS: BUN Creatinine Ratio 11.2 (10-20); Calcium 8.5 mg/dl (8.5-10.1); Creatinine Clr Calc Pharmacy 36.1 ml/min; Est GFR (African American) 31.9; Est GFR (Non-African American) 27.5
[2020-07-12] MEDS: ENOXAPARIN INJ 40 MG/0.4 ML SYR SQ SCH (08:44)
[2020-07-12] MEDS: POTASSIUM CHLORIDE CRTAB 20 MEQ TABCR PO SCH ×2 (08:44→21:07)
[2020-07-12] MEDS: INSULIN GLARGINE SOLOSTAR 100 UNITS/ML 3 ML PEN SC SCH ×2 (08:45→21:11)
[2020-07-12] MEDS: INSULIN ASPART 100 UNITS/ML 3 ML PEN SC SCH ×4 (08:45→21:12)
[2020-07-12] MEDS: BETAMETHASONE VAL 0.1% CR 15 GM EXT SCH ×2 (09:05→21:07)
[2020-07-12] MEDS: CHOLECALCIFEROL 1,000 UNITS 25 MCG TAB PO SCH (09:06)
[2020-07-12] MEDS: FLUDROCORTISONE ACETATE 0.1 MG TAB PO SCH (09:06)
[2020-07-12] MEDS: DOCUSATE SODIUM/SENNA 50/8.6MG TAB PO SCH (09:07)
[2020-07-12 09:08] LABS: Potassium 4.1 mmol/L (3.5-5.1)
[2020-07-12 09:09] LABS: Magnesium 1.8 mg/dl (1.8-2.4)
[2020-07-12 12:40] LABS: Cdiff Antigen Positive; Cdiff Toxin A+B Negative Cdiff Toxin (Negative)
--- NOTE | 2020-07-12 14:11 | Pharmacy Report ---
Pharmacy Glycemic Short Note 2 - Date of Service July 12, 2020 - Glycemic Short BSG Results (Last 24 hours): 07/11/20 07/11/20 07/12/20 16:22 20:44 06:58 Glucose 190 H POC Glucose 98 271 H 07/12/20 07/12/20 07:48 11:52 Glucose POC Glucose 203 H 230 H Outpatient Anti-diabetic Regimen: * Lantus 15 units SC qAM, 8 units SC qPM * A1c = 8.3 % on 05/23/20 ASSESSMENT: 07/12 * Patient received total of 39 units of insulin yesterday, of which 13 were basal * Fasting BSG elevated at 203 - will increase HS basal dose * BSGs trending up with lunch time - plan to tighten CR PLAN FOR INPATIENT GLYCEMIC CONTROL: * Basal insulin: increase * Lantus 10 units SQ qAM and 3-4 units based on BSG scale at HS - see EHR * Bolus insulin: increase prandial doses * Novolog SQ ACHS * Goal range: 110-140mg/dL * Correction Factor: 35 mg/dL/unit * Nutritional / Prandial insulin per carb ratio of 1 unit per 7 grams CHO consumed
--- NOTE | 2020-07-12 15:56 | Hospitalist Progress Note ---
Date of Service July 12, 2020 Assessment & Plan (1) Acute respiratory failure with hypoxia: Acute respiratory distress syndrome with severe hypoxic respiratory failure on admission secondary to COVID-19 infection Received conv plasma on 05/27. Received Steroids x 3 weeks and tapered off. Not a candidate for remdesivir due to renal failure -CT Chest revealed multifocal airspace consolidation with necrotizing/cavitary pneumonia in the ERASMO, and fluid in the distal esophagus. -Repeat CT scan showed B/L extensive necrotizing pneumonia,bilateral pleural effusion and left upper lobe lung abscess. CT scan was negative for any acute pulmonary embolism -HIV screen is negative -Discussed with ID on 07/09/20 -Appreciate pulmonology, ID input -Received multiple courses of antibiotics including Rocephin, doxycycline, cefepime, Unasyn -Plan to continue zosyn while hospitalized transition to Augmentin as able upon discharge -Needs to complete 4 weeks of antibiotic therapy starting June 23 -Continue supplemental oxygen as needed -We will need repeat imaging studies after completion of antibiotic course -Remains critical but stable -Repeat chest x-ray tomorrow Bilateral pleural effusion Continue IV lasix May not tolerate any procedures Appreciate Nephrology/Pulm Input Monitor renal function Left upper lobe lung abscess As above Will need prolonged intravenous antibiotic Needs follow up with ID/Pulm upon discharge (2) Pneumonia due to COVID-19 virus: Completed multiple antibiotic course while admitted. (Doxycycline 100mg BID 5 dys, stopped for 2, resumed 05/30 for 7 full days, Ceftriaxone x 14 days, Cefepime for an additional 3 days after the ceftriaxone completed, and Flagyl for 8 days. Also received Unasyn and currently on Zosyn from 07/06) Continue antibiotics as above Diarrhea Stool for C diff: Gene positive, Toxin negative Hold stool softeners Will re-test stool studies if recurrence of diarrhea Monitor (3) Diabetes mellitus type I: Glycemic pharmacist managing Continue Insulin therapy Monitor BGs (4) CKD (chronic kidney disease), stage III: XOCHITL on CKD III ? Baseline Cr: 2.3 Renally adjust medications as needed Cr:2.5 today Appreciate nephrology input Monitor renal function Avoid nephrotoxic agents as able Continue IV lasix as per Nephrology (5) Diabetic neuropathy: Gabapentin decreased to 300mg PO TID due to renal insufficiency. (6) Hypothyroidism: Continue levothyroxine (7) Depression: Continue Prozac (8) Psoriasis: continue steroid cream BID (9) DVT prophylaxis: Lovenox SQ Code Status DNR/DNI Disposition To be determined Poor prognosis Admission and Anticipated Discharge Date Admission Date: May 22, 2020 Subjective Patient is seen and examined Had diarrhea today Stool for C. difficile negative Dyspnea slightly better today as per patient Persistent intermittent cough Chronic neuropathic feet pain No other complaints Denies chest pain, abdominal pain, dizziness, diarrhea [employer] Guards at bedside Review of Systems Review of Systems: All systems reviewed & are unremarkable except as noted in HPI & below Physical Exam Physical Exam: Physical Exam: Vitals signs as noted above General Appearance: Ill-appearing, no apparent distress Head: normocephalic, Atraumatic Eyes: normal inspection, EOMI Neck: supple, Trachea midline Respiratory/Chest: Decreased breath sounds, b/l basal crackles, Rales Cardiovascular: S1, S2, No murmur Abdomen/GI:Soft, Non tender, Bowel sounds present Extremities/Musculoskelatal:normal inspection, no edema Neurologic/Psych:AAOX3, grossly no focal neurological deficits Skin: normal color, warm Results & Data Results & Data ([facility]) Vital Signs (Past 12 Hours) Vital Signs Temp Pulse Pulse Resp BP BP Pulse Ox 07/12/20 15:00 71 07/12/20 12:18 36.7 C 86 18 125/77 91 07/12/20 08:00 36.8 C 77 77 20 142/94 H 96 07/12/20 04:18 36.5 C 79 18 145/83 H 99 Laboratory Results Short CBC 07/12/20 Range/Units 06:58 WBC 11.68 H (4.8-10.8) K/uL Hgb 9.6 L (14.0-18.0) g/dL Hct 30.6 L (42-52) % Plt Count 626 H (130-400) K/uL BMP 07/12/20 07/12/20 06:58 08:41 Sodium 140 Potassium 4.1 Chloride 104 Carbon Dioxide 29 BUN 28 H Creatinine 2.51 H Glucose 190 H Calcium 8.5 (1) CKD (chronic kidney disease), stage III Chronic kidney disease stage 3 subtype: stage 3b (GFR 30-44) Qualified Code(s): N18.32 - Chronic kidney disease, stage 3b
[2020-07-13] MEDS: ACETAMINOPHEN 500 MG TAB PO SCH ×3 (01:30→17:28)
[2020-07-13] MEDS: PIPERACILLIN/TAZOBACTAM 4.5 GM in DEXTROSE 5% 100 ML IV SCH ×3 (04:18→21:02)
[2020-07-13 07:45] LABS: Hematocrit (blood only) 33.3 % (42-52); Hemoglobin 10.5 g/dL (14.0-18.0); Mean Corpuscular Hemoglobin 28.2 pg (25-34); Mean Corpuscular Hgb Conc 31.5 g/dL (32-36); Mean Corpuscular Volume 89.5 fL (80-100); Mean Platelet Volume 9.3 fL (7.4-10.4); Platelet Count 537 K/uL (130-400); RDW Coefficient of Variation 17.5 % (11.5-14.5); RDW Standard Deviation 56.4 fL (36.4-46.3); Red Blood Count 3.72 M/uL (4.7-6.1); White Blood Count 11.48 K/uL (4.8-10.8)
[2020-07-13 08:21] LABS: BUN Creatinine Ratio 11.1 (10-20); Calcium 8.7 mg/dl (8.5-10.1); Est GFR (African American) 32.9; Est GFR (Non-African American) 28.4; Magnesium 1.9 mg/dl (1.8-2.4); Potassium 4.4 mmol/L (3.5-5.1)
--- NOTE | 2020-07-13 08:48 | XRay Report ---
XR chest 1V portable HISTORY: 55 years-old Male pleural effusion, lung abcess follow-up study in a patient with pleural e ffusions COMPARISON: Chest radiograph 07/09/2020, CTA chest 07/01/2020 TECHNIQUE: Portable AP view of the chest FINDINGS: Cardiac silhouette is enlarged, unchanged. Unchanged mediastinal contours. Emphysema with bilateral m ixed interstitial and alveolar opacities. Moderately improved aeration of the lungs. 5.8 cm pleural-b ased mass of the lateral left upper lobe. Small pleural effusions have also decreased in size. Degene rative changes of the shoulders and spine. IMPRESSION: 1. Emphysema with moderately improved aeration of the lungs. 2. Small pleural effusions have mildly decreased in size. 3. 5.8 cm pleural-based opacity of the left upper lobe correlates with the previously described cavit odessa lesion. ACT 112: Negative or not required by law. The above report was generated using voice recognition software. It may contain grammatical, syntax o r spelling errors. Electronically signed by: Jabari Leong M.D. 07/13/2020 8:46 AM
[2020-07-13] MEDS: FUROSEMIDE 40 MG in SYRINGE 0 ML IV SCH (08:55)
[2020-07-13] MEDS: INSULIN ASPART 100 UNITS/ML 3 ML PEN SC SCH ×4 (08:55→22:02)
[2020-07-13] MEDS: INSULIN GLARGINE SOLOSTAR 100 UNITS/ML 3 ML PEN SC SCH ×2 (08:58→22:01)
[2020-07-13] MEDS: FLUDROCORTISONE ACETATE 0.1 MG TAB PO SCH (08:59)
[2020-07-13] MEDS: POTASSIUM CHLORIDE CRTAB 20 MEQ TABCR PO SCH ×2 (08:59→21:03)
[2020-07-13] MEDS: ENOXAPARIN INJ 40 MG/0.4 ML SYR SQ SCH (09:00)
[2020-07-13] MEDS: BETAMETHASONE VAL 0.1% CR 15 GM EXT SCH ×2 (09:01→21:05)
[2020-07-13] MEDS: ONDANSETRON INJ 2 MG/ML 2 ML VIAL IV PRN ×2 (09:05→21:17)
--- NOTE | 2020-07-13 09:32 | Pharmacy Report ---
Pharmacy Glycemic Short Note 2 - Date of Service July 13, 2020 - Glycemic Short BSG Results (Last 24 hours): 07/12/20 07/12/20 07/12/20 11:52 16:40 21:10 Glucose POC Glucose 230 H 166 H 138 H 07/13/20 07/13/20 07:26 07:33 Glucose 201 H POC Glucose 207 H Outpatient Anti-diabetic Regimen: * Lantus 15 units SC qAM, 8 units SC qPM * A1c = 8.3 % on 05/23/20 ASSESSMENT: 07/13 * Post-prandial BSG's responded well to tightened carb ratio yesterday - no change * AM fasting still elevated - will slightly change the BSG parameters to increase likelihood of slightly higher basal dose this AM 07/12 * Patient received total of 39 units of insulin yesterday, of which 13 were basal * Fasting BSG elevated at 203 - will increase HS basal dose * BSGs trending up with lunch time - plan to tighten CR PLAN FOR INPATIENT GLYCEMIC CONTROL: * Basal insulin: increase * Lantus 10 units SQ qAM and 3-4 units based on BSG scale at HS - see EHR * Bolus insulin: no change * Novolog SQ ACHS * Goal range: 110-140mg/dL * Correction Factor: 35 mg/dL/unit * Nutritional / Prandial insulin per carb ratio of 1 unit per 7 grams CHO consumed
[2020-07-13] MEDS: FUROSEMIDE 60 MG in SYRINGE 0 ML IV SCH ×3 (13:12→21:04)
--- NOTE | 2020-07-13 17:40 | Hospitalist Progress Note ---
Date of Service July 13, 2020 Assessment & Plan (1) Acute respiratory failure with hypoxia: Acute respiratory distress syndrome with severe hypoxic respiratory failure on admission secondary to COVID-19 infection Received conv plasma on 05/27. Received Steroids x 3 weeks and tapered off. Not a candidate for remdesivir due to renal failure -CT Chest revealed multifocal airspace consolidation with necrotizing/cavitary pneumonia in the ERASMO, and fluid in the distal esophagus. -Repeat CT scan showed B/L extensive necrotizing pneumonia,bilateral pleural effusion and left upper lobe lung abscess. CT scan was negative for any acute pulmonary embolism -HIV screen is negative -Discussed with ID on 07/09/20 -Appreciate pulmonology, ID input -Received multiple courses of antibiotics including Rocephin, doxycycline, cefepime, Unasyn -Plan to continue zosyn while hospitalized transition to Augmentin as able upon discharge -Needs to complete 4 weeks of antibiotic therapy starting June 23 -Continue supplemental oxygen as needed -Repeat chest x-ray 07/13/20 showed moderately improved aeration of the lungs. Small pleural effusions is mildly decreased. Persistent 5.8 cm left upper lobe opacity. -Very slowly improving Bilateral pleural effusion Continue IV lasix May not tolerate any procedures Appreciate Nephrology/Pulm Input Monitor renal function Left upper lobe lung abscess As above Will need prolonged intravenous antibiotic Needs follow up with ID/Pulm upon discharge (2) Pneumonia due to COVID-19 virus: Completed multiple antibiotic course while admitted. (Doxycycline 100mg BID 5 dys, stopped for 2, resumed 05/30 for 7 full days, Ceftriaxone x 14 days, Cefepime for an additional 3 days after the ceftriaxone completed, and Flagyl for 8 days. Also received Unasyn and currently on Zosyn from 07/06) Continue antibiotics as above Diarrhea Stool for C diff: Gene positive, Toxin negative Hold stool softeners Will re-test stool studies if recurrence of diarrhea Monitor (3) Diabetes mellitus type I: Glycemic pharmacist managing Continue Insulin therapy Monitor BGs (4) CKD (chronic kidney disease), stage III: XOCHITL on CKD III ? Baseline Cr: 2.3 Renally adjust medications as needed Cr:2.45 today Appreciate nephrology input Monitor renal function Avoid nephrotoxic agents as able Continue IV lasix as per Nephrology Renal function near baseline (5) Diabetic neuropathy: Gabapentin decreased to 300mg PO TID due to renal insufficiency. (6) Hypothyroidism: Continue levothyroxine (7) Depression: Continue Prozac (8) Psoriasis: continue steroid cream BID (9) DVT prophylaxis: Lovenox SQ Code Status DNR/DNI Disposition To be determined Poor prognosis Admission and Anticipated Discharge Date Admission Date: May 22, 2020 Subjective Patient is seen and examined States feeling nauseous today Denies any diarrhea today Chest x-ray showed moderately improved aeration of the lungs. Less dyspnea, cough Chronic neuropathic feet pain Denies chest pain, abdominal pain, dizziness [employer] Guards at bedside Review of Systems Review of Systems: All systems reviewed & are unremarkable except as noted in HPI & below Physical Exam Physical Exam: Physical Exam: Vitals signs as noted above General Appearance: Ill-appearing, no apparent distress Head: normocephalic, Atraumatic Eyes: normal inspection, EOMI Neck: supple, Trachea midline Respiratory/Chest: Decreased breath sounds, b/l basal crackles, Rales Cardiovascular: S1, S2, No murmur Abdomen/GI:Soft, Non tender, Bowel sounds present Extremities/Musculoskelatal:normal inspection, no edema Neurologic/Psych:AAOX3, grossly no focal neurological deficits Skin: normal color, warm Results & Data Results & Data ([facility]) Vital Signs (Past 12 Hours) Vital Signs Temp Pulse Resp BP Pulse Ox 07/13/20 17:18 36.5 C 73 18 120/81 93 07/13/20 12:00 36.8 C 81 16 130/80 99 07/13/20 07:50 36.3 C L 84 18 158/89 H 92 Laboratory Results Short CBC 07/13/20 Range/Units 07:26 WBC 11.48 H (4.8-10.8) K/uL Hgb 10.5 L (14.0-18.0) g/dL Hct 33.3 L (42-52) % Plt Count 537 H (130-400) K/uL BMP 07/13/20 07:26 Sodium 139 Potassium 4.4 Chloride 104 Carbon Dioxide 30 BUN 27 H Creatinine 2.45 H Glucose 201 H Calcium 8.7 (1) CKD (chronic kidney disease), stage III Chronic kidney disease stage 3 subtype: stage 3b (GFR 30-44) Qualified Code(s): N18.32 - Chronic kidney disease, stage 3b
--- NOTE | 2020-07-13 19:52 | Communication Note ---
Date of Service: July 13, 2020 Pt not seen in person today d/t covid 19 mitigation efforts by this provider chart review only labs, meds, i/o, VS reviewed >increased lasix to 60 mg IV tid from 40 mg IV tid >cont I/O, daily bmp >will cont to follow
[2020-07-13] MEDS: LORazepam 0.25 MG/0.5 ML VIAL IV PRN (21:17)
[2020-07-14] MEDS: ACETAMINOPHEN 500 MG TAB PO SCH ×3 (01:19→16:54)
[2020-07-14] MEDS: PIPERACILLIN/TAZOBACTAM 4.5 GM in DEXTROSE 5% 100 ML IV SCH ×3 (04:21→21:03)
[2020-07-14 07:46] LABS: BUN Creatinine Ratio 10.5 (10-20); Calcium 8.5 mg/dl (8.5-10.1); Creatinine Clr Calc Pharmacy 33.6 ml/min; Est GFR (African American) 30.4; Est GFR (Non-African American) 26.3; Potassium 4.5 mmol/L (3.5-5.1)
[2020-07-14] MEDS: ONDANSETRON INJ 2 MG/ML 2 ML VIAL IV PRN ×2 (08:20→17:28)
[2020-07-14] MEDS: LORazepam 0.25 MG/0.5 ML VIAL IV PRN ×2 (08:20→17:28)
[2020-07-14] MEDS: ENOXAPARIN INJ 40 MG/0.4 ML SYR SQ SCH (08:32)
[2020-07-14] MEDS: FUROSEMIDE 60 MG in SYRINGE 0 ML IV SCH ×4 (08:32→21:03)
[2020-07-14] MEDS: POTASSIUM CHLORIDE CRTAB 20 MEQ TABCR PO SCH ×2 (08:32→21:07)
[2020-07-14] MEDS: FLUDROCORTISONE ACETATE 0.1 MG TAB PO SCH (08:33)
[2020-07-14] MEDS: BETAMETHASONE VAL 0.1% CR 15 GM EXT SCH ×2 (08:33→21:16)
[2020-07-14] MEDS: NEPHROCAPS PO SCH (08:41)
[2020-07-14] MEDS: INSULIN ASPART 100 UNITS/ML 3 ML PEN SC SCH ×4 (08:52→21:06)
[2020-07-14] MEDS: INSULIN GLARGINE SOLOSTAR 100 UNITS/ML 3 ML PEN SC SCH ×2 (08:53→21:06)
[2020-07-14 15:11] LABS: Cdiff Antigen Negative; Cdiff Toxin A+B Negative Cdiff Toxin (Negative)
[2020-07-14] MEDS: LACTOBACILLUS ACIDOPHILUS 1 GM PACK PO SCH (16:54)
[2020-07-14] MEDS: RASPBERRY SYRUP 5 ML UDP PO SCH (18:06)
[2020-07-14] MEDS: MoRPHine SULFATE 2 MG/ML CARP IV PRN (18:06)
[2020-07-14] MEDS: VANCOMYCIN HCL 125 MG/2.5ML SOLN PO SCH (18:06)
[2020-07-14] MEDS ORDERED: traMADol HCL 50 MG TABLET PO PRN (18:23)
--- NOTE | 2020-07-14 19:36 | Hospitalist Progress Note ---
Date of Service July 14, 2020 Assessment & Plan (1) Acute respiratory failure with hypoxia: Acute respiratory distress syndrome with severe hypoxic respiratory failure on admission secondary to COVID-19 infection Received conv plasma on 05/27. Received Steroids x 3 weeks and tapered off. Not a candidate for remdesivir due to renal failure -CT Chest revealed multifocal airspace consolidation with necrotizing/cavitary pneumonia in the ERASMO, and fluid in the distal esophagus. -Repeat CT scan showed B/L extensive necrotizing pneumonia,bilateral pleural effusion and left upper lobe lung abscess. CT scan was negative for any acute pulmonary embolism -HIV screen is negative -Discussed with ID on 07/09/20 -Appreciate pulmonology, ID input -Received multiple courses of antibiotics including Rocephin, doxycycline, cefepime, Unasyn -Plan to continue zosyn while hospitalized transition to Augmentin as able upon discharge -Needs to complete 4 weeks of antibiotic therapy starting June 23 -Repeat chest x-ray 07/13/20 showed moderately improved aeration of the lungs. Small pleural effusions is mildly decreased. Persistent 5.8 cm left upper lobe opacity. -Very slowly improving -Continue to wean supplemental oxygen as able Bilateral pleural effusion Continue IV lasix May not tolerate any procedures Appreciate Nephrology/Pulm Input Monitor renal function Left upper lobe lung abscess As above Will need prolonged intravenous antibiotic Needs follow up with ID/Pulm upon discharge (2) Pneumonia due to COVID-19 virus: Completed multiple antibiotic course while admitted. (Doxycycline 100mg BID 5 dys, stopped for 2, resumed 05/30 for 7 full days, Ceftriaxone x 14 days, Cefepime for an additional 3 days after the ceftriaxone completed, and Flagyl for 8 days. Also received Unasyn and currently on Zosyn from 07/06) Continue antibiotics as above Diarrhea Stool for C diff: Gene positive, Toxin negative Hold stool softeners We will start on oral vancomycin given ongoing diarrhea Monitor (3) Diabetes mellitus type I: Glycemic pharmacist managing Continue Insulin therapy Monitor BGs (4) CKD (chronic kidney disease), stage III: XOCHITL on CKD III ? Baseline Cr: 2.3 Renally adjust medications as needed Cr:2.61 today Appreciate nephrology input Monitor renal function Avoid nephrotoxic agents as able Continue IV lasix as per Nephrology Renal function near baseline (5) Diabetic neuropathy: Gabapentin decreased to 300mg PO TID due to renal insufficiency. (6) Hypothyroidism: Continue levothyroxine (7) Depression: Continue Prozac (8) Psoriasis: continue steroid cream BID (9) DVT prophylaxis: Lovenox SQ Code Status DNR/DNI Disposition To be determined Poor prognosis Admission and Anticipated Discharge Date Admission Date: May 22, 2020 Subjective Patient is seen and examined Complains to have generalized pain Reports having diarrhea Continues to have chronic dyspnea Requiring decreased supplemental oxygen to maintain saturations today Cough about the same as yesterday Chronic neuropathic feet pain [employer] at bedside Offers no other complaints Review of Systems Review of Systems: All systems reviewed & are unremarkable except as noted in HPI & below Physical Exam Physical Exam: Physical Exam: Vitals signs as noted above General Appearance: Ill-appearing, no apparent distress Head: normocephalic, Atraumatic Eyes: normal inspection, EOMI Neck: supple, Trachea midline Respiratory/Chest: Decreased breath sounds, b/l basal crackles, Rales Cardiovascular: S1, S2, No murmur Abdomen/GI:Soft, Non tender, Bowel sounds present Extremities/Musculoskelatal:normal inspection, no edema Neurologic/Psych:AAOX3, grossly no focal neurological deficits Skin: normal color, warm Results & Data Results & Data ([facility]) Vital Signs (Past 12 Hours) Vital Signs Temp Pulse Pulse Resp BP Pulse Ox 07/14/20 17:03 36.4 C L 73 18 136/79 91 07/14/20 12:52 18 98 07/14/20 12:05 36.7 C 78 20 123/84 100 07/14/20 08:00 75 Laboratory Results [facility] 07/14/20 07:04 Sodium 141 Potassium 4.5 Chloride 105 Carbon Dioxide 30 BUN 27 H Creatinine 2.61 H Glucose 173 H Calcium 8.5 (1) CKD (chronic kidney disease), stage III Chronic kidney disease stage 3 subtype: stage 3b (GFR 30-44) Qualified Code(s): N18.32 - Chronic kidney disease, stage 3b
[2020-07-15] MEDS: RASPBERRY SYRUP 5 ML UDP PO SCH ×5 (00:27→23:11)
[2020-07-15] MEDS: VANCOMYCIN HCL 125 MG/2.5ML SOLN PO SCH ×5 (00:27→23:11)
[2020-07-15] MEDS: INSULIN ASPART 100 UNITS/ML 3 ML PEN SC SCH ×6 (00:35→20:36)
[2020-07-15] MEDS: ACETAMINOPHEN 500 MG TAB PO SCH ×2 (00:35→09:37)
[2020-07-15] MEDS: PIPERACILLIN/TAZOBACTAM 4.5 GM in DEXTROSE 5% 100 ML IV SCH ×3 (04:40→20:42)
[2020-07-15 07:37] LABS: Basophils # (auto) 0.21 K/uL (0-0.2); Basophils % (auto) 2.2 %; Eosinophils # (auto) 0.77 K/uL (0-0.5); Hematocrit (blood only) 33.4 % (42-52); Hemoglobin 10.5 g/dL (14.0-18.0); Immature Granulocytes # (auto) 0.05 K/uL (0.00-0.02); Immature Granulocytes % (auto) 0.5 %; Lymphocytes # (auto) 2.88 K/uL (1.2-3.4); Lymphocytes % (auto) 29.8 %; Mean Corpuscular Hemoglobin 27.9 pg (25-34); Mean Corpuscular Hgb Conc 31.4 g/dL (32-36); Mean Corpuscular Volume 88.8 fL (80-100); Mean Platelet Volume 9.5 fL (7.4-10.4); Monocytes % (auto) 5.2 %; Neutrophils # (auto) 5.26 K/uL (1.4-6.5); Neutrophils % (auto) 54.3 %; Platelet Count 521 K/uL (130-400); RDW Coefficient of Variation 17.8 % (11.5-14.5); RDW Standard Deviation 56.9 fL (36.4-46.3); Red Blood Count 3.76 M/uL (4.7-6.1); White Blood Count 9.67 K/uL (4.8-10.8)
[2020-07-15 07:55] LABS: BUN Creatinine Ratio 12.1 (10-20); Calcium 8.4 mg/dl (8.5-10.1); Creatinine Clr Calc Pharmacy 30.3 ml/min; Est GFR (African American) 26.6; Est GFR (Non-African American) 22.9; Potassium 4.2 mmol/L (3.5-5.1)
[2020-07-15] MEDS: FLUDROCORTISONE ACETATE 0.1 MG TAB PO SCH (09:36)
[2020-07-15] MEDS: POTASSIUM CHLORIDE CRTAB 20 MEQ TABCR PO SCH ×2 (09:36→20:38)
[2020-07-15] MEDS: ENOXAPARIN INJ 40 MG/0.4 ML SYR SQ SCH (09:36)
[2020-07-15] MEDS: LACTOBACILLUS ACIDOPHILUS 1 GM PACK PO SCH ×3 (09:36→17:29)
[2020-07-15] MEDS: FUROSEMIDE 60 MG in SYRINGE 0 ML IV SCH (09:36)
[2020-07-15] MEDS: INSULIN GLARGINE SOLOSTAR 100 UNITS/ML 3 ML PEN SC SCH (09:36)
[2020-07-15] MEDS: NEPHROCAPS PO SCH (09:37)
[2020-07-15] MEDS: BETAMETHASONE VAL 0.1% CR 15 GM EXT SCH ×2 (09:37→20:38)
--- NOTE | 2020-07-15 13:08 | Nephrology Progress Note ---
Date of Service July 15, 2020 Assessment & Plan (1) CKD (chronic kidney disease), stage III: Baseline creatinine 2.3 in 12/2019. No OP/prior to admission creatinine documented. Pt presented with creatinine 2.5 on 05/22; then bumped to 05/27 in mid to low 3s. peaked at 4.5 on 06/02; creat under 3 since 06/10; labs on 06/29 in low 2's, at baseline. uacm w/ 3+ dipstick protein, 1+ blood, consistent with even 2018 sediment; no infection or other inflammation. pt is open to dialysis if need arises; though he is doing better from renal standpoint than earlier this month. -Has been net negative over the last 48 hours after the increase in the Lasix dose. -His oxygen requirements have decreased dramatically, and is maintaining good saturations at 4 L. -He gets anxious and starts to hyperventilate when he is made aware that his oxygen has been lowered. -Bump in serum creatinine not with increase in Lasix today creatinine of 2.9 up from 2.6 yesterday, BUN 35 up from 27. -Lower the furosemide to 40 mg IV twice daily, -Daily BMP -monitor electrolytes and replace accordingly. >>SENIOR PROFESSIONAL SERVICES CONSULTANT was on gabapentin 600 mg qid; so we lowered significantly mid Nov d/t XOCHITL; now back up to 300 mg tid and tolerating; do not believe this medication would help pleuritic chest pain which he again c/o to me today but could consider resuming OP dose when/if appropriate (2) Orthostatic hypotension: with labile BP reported SENIOR PROFESSIONAL SERVICES CONSULTANT; but here BP w/ stable elevation since he is essentially bedbound on standing /chcf fludrocortisone prior to admission. s/p course of dexamethasone >>fludro was stopped earlier topped but was restarted by Dr. Mercer. -lowered fludro to 0.25 mg daily on 07/02 (chcf steroid user on 0.3 mg daily x months at least) and plan slow taper w/ dosing stepdown q 2-3 wks. -Pressure has been good. -stopped ACEI , continue to withhold at the moment (3) COVID-19: on high flow 02 for a few weeks now ; w/ near intubation / code purple for hypoxia 06/01 AM; ICU status downgraded 11/11; recurrent hypoxemic episodes corrected with self-proning >> he has been on 6L or more 02 continuously since 05/28; currently up to 30L/min on oxymask -However amazingly he is maintaining good saturations on just 4 L of oxygen, he is to be comfortable and just in mild distress. Admission and Anticipated Discharge Date Admission Date: May 22, 2020 Subjective Continues to have chronic dyspnea Requiring decreased supplemental oxygen to maintain saturations. Gets anxious when he is made aware that he is on low oxygen. Review of Systems Review of Systems: All systems reviewed & are unremarkable except as noted in HPI & below and Other As per input from the nursing staff Physical Exam Physical Exam: Not done physically, due to COVID-19 PPE saving maneuvers Results & Data ([facility]) Vital Signs (Past 12 Hours) Vital Signs Temp Pulse Resp BP Pulse Ox 07/15/20 12:00 36.8 C 77 20 146/87 H 91 07/15/20 08:00 36.8 C 79 20 123/75 93 07/15/20 03:58 36.9 C 80 20 128/85 100 Laboratory Results 07/15/20 07:17 07/15/20 07:17 (1) CKD (chronic kidney disease), stage III Chronic kidney disease stage 3 subtype: stage 3b (GFR 30-44) Qualified Code(s): N18.32 - Chronic kidney disease, stage 3b
--- NOTE | 2020-07-15 14:59 | Pharmacy Report ---
Pharmacy Glycemic Short Note 2 - Date of Service July 15, 2020 - Glycemic Short BSG Results (Last 24 hours): 07/14/20 07/14/20 07/14/20 16:52 20:34 20:36 Glucose POC Glucose 247 H 422 H* 409 H* 07/15/20 07/15/20 07/15/20 00:04 04:09 07:17 Glucose 227 H POC Glucose 366 H* 243 H 07/15/20 07/15/20 07/15/20 07:53 12:00 12:02 Glucose POC Glucose 209 H 326 H* 263 H Outpatient Anti-diabetic Regimen: * Lantus 15 units SC qAM, 8 units SC qPM * A1c = 8.3 % on 05/23/20 ASSESSMENT: 07/15 * Patient received total of 36 units of insulin yesterday, of which 14 were basal * Fasting BSG elevated at 209 - likely related to basal deficient. Patient previously refusing basal 07/13 evening d/t poor PO intake * Plan to continue with usual basal this evening, anticipate BSGs to improve PLAN FOR INPATIENT GLYCEMIC CONTROL: * Basal insulin * Lantus 10 units SQ qAM and 3-4 units based on BSG scale at HS * Bolus insulin: no change * Novolog SQ ACHS * Goal range: 110-140mg/dL * Correction Factor: 30 mg/dL/unit * Nutritional / Prandial insulin per carb ratio of 1 unit per 7 grams CHO consumed
[2020-07-15] MEDS: LORazepam 0.25 MG/0.5 ML VIAL IV PRN (16:56)
[2020-07-15] MEDS: ONDANSETRON INJ 2 MG/ML 2 ML VIAL IV PRN (16:58)
[2020-07-15] MEDS ORDERED: INSULIN GLARGINE SOLOSTAR 100 UNITS/ML 3 ML PEN SC STA (17:01)
--- NOTE | 2020-07-15 19:34 | Hospitalist Progress Note ---
Date of Service July 15, 2020 Assessment & Plan (1) Acute respiratory failure with hypoxia: Acute respiratory distress syndrome with severe hypoxic respiratory failure on admission secondary to COVID-19 infection Received conv plasma on 05/27. Received Steroids x 3 weeks and tapered off. Not a candidate for remdesivir due to renal failure -CT Chest revealed multifocal airspace consolidation with necrotizing/cavitary pneumonia in the ERASMO, and fluid in the distal esophagus. -Repeat CT scan showed B/L extensive necrotizing pneumonia,bilateral pleural effusion and left upper lobe lung abscess. CT scan was negative for any acute pulmonary embolism -HIV screen is negative -Discussed with ID on 07/09/20 -Appreciate pulmonology, ID input -Received multiple courses of antibiotics including Rocephin, doxycycline, cefepime, Unasyn -Plan to continue zosyn while hospitalized transition to Augmentin as able upon discharge -Needs to complete 4 weeks of antibiotic therapy starting June 23 -Repeat chest x-ray 07/13/20 showed moderately improved aeration of the lungs. Small pleural effusions is mildly decreased. Persistent 5.8 cm left upper lobe opacity. -Very slowly improving -Continue to wean off of oxygen -Saturating low 90s on 4 L of supplemental oxygen -We need to repeat CT chest prior to discharge Bilateral pleural effusion Continue IV lasix as per Nephrology May not tolerate any procedures Appreciate Nephrology/Pulm Input Monitor renal function Left upper lobe lung abscess As above Will need prolonged intravenous antibiotic Needs follow up with ID/Pulm upon discharge (2) Pneumonia due to COVID-19 virus: Completed multiple antibiotic course while admitted. (Doxycycline 100mg BID 5 dys, stopped for 2, resumed 05/30 for 7 full days, Ceftriaxone x 14 days, Cefepime for an additional 3 days after the ceftriaxone completed, and Flagyl for 8 days. Also received Unasyn and currently on Zosyn from 07/06) Continue antibiotics as above Diarrhea Stool for C diff: Gene positive, Toxin negative Hold stool softeners Started on oral vancomycin--Diarrhea improving Monitor (3) Diabetes mellitus type I: Glycemic pharmacist managing Continue Insulin therapy Monitor BGs (4) CKD (chronic kidney disease), stage III: XOCHITL on CKD III ? Baseline Cr: 2.3 Renally adjust medications as needed Cr:2.9 today Appreciate nephrology input Monitor renal function Avoid nephrotoxic agents as able Decreased IV lasix to 40mg BID as per Nephrology Renal function near baseline (5) Diabetic neuropathy: Gabapentin decreased to 300mg PO TID due to renal insufficiency. (6) Hypothyroidism: Continue levothyroxine (7) Depression: Continue Prozac (8) Psoriasis: continue steroid cream BID (9) DVT prophylaxis: Lovenox SQ Code Status DNR/DNI Disposition To be determined Poor prognosis Admission and Anticipated Discharge Date Admission Date: May 22, 2020 Subjective Patient is seen and examined Less diarrhea today States having nausea associated with some abdominal discomfort today Denies any cough Less dyspnea today Continues to have poor appetite Renal function worsened today Chronic neuropathic feet pain [employer] at bedside Review of Systems Review of Systems: All systems reviewed & are unremarkable except as noted in HPI & below Physical Exam Physical Exam: Physical Exam: Vitals signs as noted above General Appearance: Ill-appearing, no apparent distress Head: normocephalic, Atraumatic Eyes: normal inspection, EOMI Neck: supple, Trachea midline Respiratory/Chest: Decreased breath sounds, CTA Cardiovascular: S1, S2, No murmur Abdomen/GI:Soft, Non tender, Bowel sounds present Extremities/Musculoskelatal:normal inspection, no edema Neurologic/Psych:AAOX3, grossly no focal neurological deficits Skin: normal color, warm Results & Data Results & Data ([place]) Vital Signs (Past 12 Hours) Vital Signs Temp Pulse Pulse Resp BP Pulse Ox 07/15/20 16:50 36.4 C L 73 18 128/80 91 07/15/20 15:00 72 07/15/20 12:00 36.8 C 77 20 146/87 H 91 07/15/20 08:00 36.8 C 79 20 123/75 93 Laboratory Results Short CBC 07/15/20 Range/Units 07:17 WBC 9.67 (4.8-10.8) K/uL Hgb 10.5 L (14.0-18.0) g/dL Hct 33.4 L (42-52) % Plt Count 521 H (130-400) K/uL BMP 07/15/20 07:17 Sodium 139 Potassium 4.2 Chloride 105 Carbon Dioxide 31 BUN 35 H Creatinine 2.92 H D Glucose 227 H Calcium 8.4 L (1) CKD (chronic kidney disease), stage III Chronic kidney disease stage 3 subtype: stage 3b (GFR 30-44) Qualified Code(s): N18.32 - Chronic kidney disease, stage 3b
[2020-07-15] MEDS: FUROSEMIDE 40 MG in SYRINGE 0 ML IV SCH (20:38)
[2020-07-16] MEDS: ONDANSETRON INJ 2 MG/ML 2 ML VIAL IV PRN ×2 (02:30→10:45)
[2020-07-16] MEDS: VANCOMYCIN HCL 125 MG/2.5ML SOLN PO SCH ×3 (05:00→17:13)
[2020-07-16] MEDS: PIPERACILLIN/TAZOBACTAM 4.5 GM in DEXTROSE 5% 100 ML IV SCH ×3 (05:00→20:35)
[2020-07-16] MEDS: RASPBERRY SYRUP 5 ML UDP PO SCH ×3 (05:00→17:13)
[2020-07-16] MEDS ORDERED: ALUMINUM/MAGNESIUM/SIMETH (MAALOX MAX) 30 ML UDC PO STA (06:13)
[2020-07-16 07:27] LABS: Basophils # (auto) 0.26 K/uL (0-0.2); Basophils % (auto) 2.4 %; Eosinophils # (auto) 0.84 K/uL (0-0.5); Eosinophils % (auto) 7.7 %; Hematocrit (blood only) 32.7 % (42-52); Hemoglobin 10.1 g/dL (14.0-18.0); Immature Granulocytes # (auto) 0.05 K/uL (0.00-0.02); Immature Granulocytes % (auto) 0.5 %; Lymphocytes # (auto) 2.56 K/uL (1.2-3.4); Lymphocytes % (auto) 23.3 %; Mean Corpuscular Hemoglobin 27.5 pg (25-34); Mean Corpuscular Hgb Conc 30.9 g/dL (32-36); Mean Corpuscular Volume 89.1 fL (80-100); Mean Platelet Volume 9.7 fL (7.4-10.4); Monocytes # (auto) 0.47 K/uL (0.11-0.59); Monocytes % (auto) 4.3 %; Neutrophils # (auto) 6.79 K/uL (1.4-6.5); Neutrophils % (auto) 61.8 %; Platelet Count 531 K/uL (130-400); RDW Coefficient of Variation 17.8 % (11.5-14.5); Red Blood Count 3.67 M/uL (4.7-6.1); White Blood Count 10.97 K/uL (4.8-10.8)
[2020-07-16 07:44] LABS: BUN Creatinine Ratio 11.3 (10-20); Calcium 8.4 mg/dl (8.5-10.1); Creatinine Clr Calc Pharmacy 28.6 ml/min; Est GFR (African American) 25.2; Est GFR (Non-African American) 21.8; Potassium 4.5 mmol/L (3.5-5.1)
[2020-07-16] MEDS ORDERED: ALUMINUM/MAGNESIUM/SIMETH (MAALOX MAX) 30 ML UDC PO PRN (08:21)
[2020-07-16] MEDS: LORazepam 0.25 MG/0.5 ML VIAL IV PRN ×3 (08:26→20:34)
[2020-07-16] MEDS: FUROSEMIDE 40 MG in SYRINGE 0 ML IV SCH (08:29)
[2020-07-16] MEDS: ENOXAPARIN INJ 40 MG/0.4 ML SYR SQ SCH (08:30)
[2020-07-16] MEDS: INSULIN ASPART 100 UNITS/ML 3 ML PEN SC SCH ×4 (08:35→20:47)
[2020-07-16] MEDS: INSULIN GLARGINE SOLOSTAR 100 UNITS/ML 3 ML PEN SC SCH ×2 (08:35→20:47)
[2020-07-16] MEDS ORDERED: INSULIN GLARGINE SOLOSTAR 100 UNITS/ML 3 ML PEN SC SCH (09:00)
[2020-07-16] MEDS: LACTOBACILLUS ACIDOPHILUS 1 GM PACK PO SCH ×3 (09:57→17:13)
--- NOTE | 2020-07-16 11:09 | Nephrology Progress Note ---
Date of Service July 16, 2020 Assessment & Plan (1) CKD (chronic kidney disease), stage III: Baseline creatinine 2.3 in 12/2019. No OP/prior to admission creatinine documented. Pt presented with creatinine 2.5 on 05/22; then bumped to 05/27 in mid to low 3s. peaked at 4.5 on 06/02; creat under 3 since 06/10; labs on 06/29 in low 2's, at baseline. uacm w/ 3+ dipstick protein, 1+ blood, consistent with even 2018 sediment; no infection or other inflammation. pt is open to dialysis if need arises; though he is doing better from renal standpoint than earlier this month. -Has been net negative over the last 72 hours , Lasix was reduced to 40 twice daily yesterday as his oxygen requirement had decreased. . -Slight bump in serum creatinine, after the decrease in Lasix yesterday, cont inues to be 35 CO2 of 30, urine output is also good. -Would recommend a chest x-ray, need to go back to 60 twice daily if it shows worsening of pulmonary edema. -Daily BMP -monitor electrolytes and replace accordingly. >>CLOUD ENGAGEMENT PARTNER was on gabapentin 600 mg qid; so we lowered significantly mid Nov d/t XCOHITL; now back up to 300 mg tid and tolerating; do not believe this medication would help pleuritic chest pain which he again c/o to me today but could consider resuming OP dose when/if appropriate (2) Orthostatic hypotension: with labile BP reported [employer]OUD ENGAGEMENT PARTNER; but here BP w/ stable elevation since he is essentially bedbound on standing /fdc fludrocortisone prior to admission. s/p course of dexamethasone >>fludro was stopped earlier topped but was restarted by Dr. Mercer. -lowered fludro to 0.25 mg daily on 07/02 (fdc steroid user on 0.3 mg d aily x months at least) and plan slow taper w/ dosing stepdown q 2-3 wks. -Pressure has been good. -stopped ACEI , continue to withhold at the moment (3) COVID-19: on high flow 02 for a few weeks now ; w/ near intubation / code purple for hypoxia 06/01 AM; ICU status downgraded 06/03; recurrent hypoxemic episodes corrected with self-proning >> he has been on 6L or more 02 continuously since 05/28; currently up to 30L/min on oxymask -However he is maintaining good saturations on just 4-6L of oxygen. Admission and Anticipated Discharge Date Admission Date: May 22, 2020 Subjective As per nursing staff. Diarrhea , and nausea better. States having nausea associated with some abdominal discomfort today Is now on 6 L of oxygen, comfortable Review of Systems Review of Systems: Other Not done, COVID-19 PPE preserving maneuvers Physical Exam Physical Exam: Not done physically, due to COVID-19 PPE saving maneuvers Results & Data ([facility]) Vital Signs (Past 12 Hours) Vital Signs Temp Pulse Pulse Resp BP BP Pulse Ox 07/16/20 10:08 79 07/16/20 07:33 36.5 C 82 20 136/82 95 07/16/20 04:00 36.5 C 85 18 149/86 H 93 Laboratory Results 07/16/20 06:55 07/16/20 06:55 (1) CKD (chronic kidney disease), stage III Chronic kidney disease stage 3 subtype: stage 3b (GFR 30-44) Qualified Code(s): N18.32 - Chronic kidney disease, stage 3b
[2020-07-16] MEDS: FLUDROCORTISONE ACETATE 0.1 MG TAB PO SCH (12:06)
[2020-07-16] MEDS: BETAMETHASONE VAL 0.1% CR 15 GM EXT SCH ×2 (12:07→20:48)
[2020-07-16] MEDS: NEPHROCAPS PO SCH (12:07)
[2020-07-16] MEDS: POTASSIUM CHLORIDE CRTAB 20 MEQ TABCR PO SCH (12:07)
--- NOTE | 2020-07-16 15:17 | Pharmacy Report ---
Pharmacy Glycemic Short Note 2 - Date of Service July 16, 2020 - Glycemic Short BSG Results (Last 24 hours): 07/15/20 07/15/20 07/16/20 16:31 20:28 06:55 Glucose 268 H POC Glucose 222 H 206 H 07/16/20 07/16/20 07:42 11:26 Glucose POC Glucose 253 H 228 H Outpatient Anti-diabetic Regimen: * Lantus 15 units SC qAM, 8 units SC qPM * A1c = 8.3 % on 05/23/20 ASSESSMENT: 07/16 * Patient received 30 units of insulin yesterday, of which 14 were basal * Fasting BSG still elevated despite recent dose increase - will further titrate this AM to 13 units * Continue same CF/CF for now 07/15 * Patient received total of 36 units of insulin yesterday, of which 14 were basal * Fasting BSG elevated at 209 - likely related to basal deficient. Patient previously refusing basal 07/13 evening d/t poor PO intake * Plan to continue with usual basal this evening, anticipate BSGs to improve PLAN FOR INPATIENT GLYCEMIC CONTROL: * Basal insulin * Lantus 13 units SQ qAM and 3-4 units based on BSG scale at HS * Bolus insulin: no change * Novolog SQ ACHS * Goal range: 110-140mg/dL * Correction Factor: 25 mg/dL/unit * Nutritional / Prandial insulin per carb ratio of 1 unit per 7 grams CHO consumed
--- NOTE | 2020-07-16 19:42 | Hospitalist Progress Note ---
Date of Service July 16, 2020 Assessment & Plan (1) Acute respiratory failure with hypoxia: Marked hypoxia attributed to COVID-19 pneumonia + superimposed necrotizing pneumonia. Required high flow nasal O2 for prolonged period of time. O2 now weaned down to 6 LPM by NC. (2) COVID-19: SARS-CoV-2 PCR positive 05/22/20. COVID-19 infection with pneumonia + resp failure. (3) Necrotizing pneumonia: Suspected aspiration pneumonia. Continue IV piperacillin / tazobactam. (4) Fluid overload: Receiving IV furosemide for fluid overload. Hold furosemide due to rising creatinine. (5) Nausea: Intermittent nausea. May have diabetic gastroparesis +/- GERD. Continue anti-emetics. Keep head of bed elevated. Add famotidine. Consider eventual gastric emptying scan. (6) XOCHITL (acute kidney injury): Serum creatinine today has risen to 3.05. Hold furosemide. Follow. (7) CKD (chronic kidney disease), stage III: CKD III due to diabetic nephropathy with superimposed XOCHITL as noted above. (8) Diabetes mellitus type I: Pharmacy consulted for glycemic management. Lantus / NovoLog per protocol. FBS today = 253. (9) Do not resuscitate status: As noted. (10) DVT prophylaxis: SQ enoxaparin. (11) Discharge planning issues: Anticipated return to [facility] when medically stable. Admission and Anticipated Discharge Date Admission Date: May 22, 2020 Subjective Recheck for COVID-19, pneumonia, and other problems. Patient seen in their room around 1330. Respiratory status improved- O2 weaned down to 6 LPM via NC. Occasional cough. No SOB at rest. Tired. Intermittent nausea; poor PO intake. Diarrhea improved. Review of Systems: Constitutional- no fever. Cardiac- no anginal symptoms. Pulmonary- as noted above. GI- as noted above. - Hanna cath. Otherwise, as noted above. Physical Exam Constitutional: + ill appearing; no acute distress Eyes: + anicteric sclerae Respiratory: no respiratory distress Auscultation: + rales (bibasilar) Cardiovascular: Rate/Rhythm: regular rate and regular rhythm Vessels: no JVD Extremities: no calf tenderness and no edema Gastrointestinal (Abdomen): Inspection/Auscultation: normal bowel sounds Percussion/Palpation: abdomen soft; abdomen nontender Musculoskeletal: Extremities: no cyanosis Skin: no rashes, warm and dry Psychiatric: Orientation: alert and oriented x 3 Genitourinary: + bladder abnormal to inspection (Hanna cath) Results & Data Results & Data ([facility]) Vital Signs (Past 12 Hours) Vital Signs Temp Pulse Pulse Resp BP Pulse Ox 07/16/20 15:30 36.7 C 75 18 119/76 94 07/16/20 15:00 72 07/16/20 11:29 36.7 C 82 20 115/70 95 07/16/20 10:08 79 Laboratory Results Laboratory Results - last 24 hr 07/15/20 07/16/20 07/16/20 20:28 06:55 06:55 WBC 10.97 H RBC 3.67 L Hgb 10.1 L Hct 32.7 L MCV 89.1 MCH 27.5 MCHC 30.9 L RDW Std Deviation 58.0 H RDW Coeff of Minnie 17.8 H Plt Count 531 H MPV 9.7 Immature Gran % (Auto) 0.5 Neut % (Auto) 61.8 Lymph % (Auto) 23.3 Dixon % (Auto) 4.3 Eos % (Auto) 7.7 Baso % (Auto) 2.4 Neut # (Auto) 6.79 H Lymph # (Auto) 2.56 Dixon # (Auto) 0.47 Eos # (Auto) 0.84 H Baso # (Auto) 0.26 H Immature Gran # (Auto) 0.05 H Sodium 139 Potassium 4.5 Chloride 105 Carbon Dioxide 30 Anion Gap 4.0 BUN 35 H Creatinine 3.05 H Est Cr Clr Drug Dosing 28.6 Est GFR ( Amer) 25.2 Est GFR (Non-Af Amer) 21.8 BUN/Creatinine Ratio 11.3 Glucose 268 H POC Glucose 206 H Calcium 8.4 L Magnesium 2.0 07/16/20 07/16/20 07/16/20 07:42 11:26 16:23 WBC RBC Hgb Hct MCV MCH MCHC RDW Std Deviation RDW Coeff of Imnnie Plt Count MPV Immature Gran % (Auto) Neut % (Auto) Lymph % (Auto) Dixon % (Auto) Eos % (Auto) Baso % (Auto) Neut # (Auto) Lymph # (Auto) Dixon # (Auto) Eos # (Auto) Baso # (Auto) Immature Gran # (Auto) Sodium Potassium Chloride Carbon Dioxide Anion Gap BUN Creatinine Est Cr Clr Drug Dosing Est GFR ( Amer) Est GFR (Non-Af Amer) BUN/Creatinine Ratio Glucose POC Glucose 253 H 228 H 135 H Calcium Magnesium (1) CKD (chronic kidney disease), stage III Chronic kidney disease stage 3 subtype: stage 3b (GFR 30-44) Qualified Code(s): N18.32 - Chronic kidney disease, stage 3b
[2020-07-16] MEDS: FAMOTIDINE 20 MG in SYRINGE 3 ML IV SCH (20:50)
[2020-07-17] MEDS ORDERED: INSULIN ASPART 100 UNITS/ML 3 ML PEN SC SCH
[2020-07-17] MEDS: ONDANSETRON INJ 2 MG/ML 2 ML VIAL IV PRN (01:07)
[2020-07-17] MEDS: PIPERACILLIN/TAZOBACTAM 4.5 GM in DEXTROSE 5% 100 ML IV SCH ×3 (04:58→21:50)
[2020-07-17] MEDS: LORazepam 0.25 MG/0.5 ML VIAL IV PRN ×3 (06:29→21:51)
[2020-07-17 08:05] LABS: C Reactive Protein 1.46 mg/dl (0-0.29); Calcium 8.6 mg/dl (8.5-10.1); Creatinine Clr Calc Pharmacy 28.3 ml/min; Est GFR (African American) 25.8; Est GFR (Non-African American) 22.3; Potassium 3.7 mmol/L (3.5-5.1)
[2020-07-17] MEDS: MoRPHine SULFATE 2 MG/ML CARP IV PRN (08:16)
[2020-07-17] MEDS: INSULIN GLARGINE SOLOSTAR 100 UNITS/ML 3 ML PEN SC SCH ×2 (08:27→21:52)
[2020-07-17] MEDS: ENOXAPARIN INJ 40 MG/0.4 ML SYR SQ SCH (08:28)
[2020-07-17] MEDS: FLUDROCORTISONE ACETATE 0.1 MG TAB PO SCH (08:28)
[2020-07-17] MEDS: NEPHROCAPS PO SCH (08:30)
[2020-07-17] MEDS: LACTOBACILLUS ACIDOPHILUS 1 GM PACK PO SCH ×3 (08:31→17:20)
[2020-07-17] MEDS: INSULIN ASPART 100 UNITS/ML 3 ML PEN SC SCH ×4 (09:58→21:53)
[2020-07-17] MEDS: FAMOTIDINE 20 MG in SYRINGE 3 ML IV SCH ×2 (11:52→21:51)
[2020-07-17] MEDS: BETAMETHASONE VAL 0.1% CR 15 GM EXT SCH ×2 (12:00→21:57)
--- NOTE | 2020-07-17 12:54 | Nephrology Progress Note ---
Date of Service July 17, 2020 Assessment & Plan (1) CKD (chronic kidney disease), stage III: Baseline creatinine 2.3 in 12/2019. No OP/prior to admission creatinine documented. Pt presented with creatinine 2.5 on 05/22; then bumped to 05/27 in mid to low 3s. peaked at 4.5 on 06/02; creat under 3 since 06/10; labs on 06/29 in low 2's, at baseline. uacm w/ 3+ dipstick protein, 1+ blood, consistent with even 2018 sediment; no infection or other inflammation. pt is open to dialysis if need arises; though he is doing better from renal standpoint than earlier this month. -Has been net negative over the last 72 hours , Lasix was reduced to 40 twice daily yesterday as his oxygen requirement had decreased. . -Creatinine improved after withholding Lasix yesterday , continues to make good urine saturations of around 92% on 6 L comfortable -Continue to hold Lasix for today. -Daily BMP -monitor electrolytes and replace accordingly. 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 s/p course of dexamethasone >>fludro was stopped earlier topped but was restarted by Dr. Mercer. -lowered fludro to 0.25 mg daily on 07/02 (detention steroid user on 0.3 mg daily x months at least) and plan slow taper w/ dosing stepdown q 2-3 wks. -Pressure has been good. -stopped ACEI , continue to withhold at the moment (3) COVID-19: on high flow 02 for a few weeks now ; w/ near intubation / code purple for hypoxia 06/01 AM; ICU status downgraded 06/03; recurrent hypoxemic episodes corrected with self-proning >> he has been on 6L or more 02 continuously since 05/28; currently up to 30L/min on oxymask -However he is maintaining good saturations on just 4-6L of oxygen. Admission and Anticipated Discharge Date Admission Date: May 22, 2020 Subjective Respiratory status better diarrhea better, comfortable at rest. Review of Systems Review of Systems: All systems reviewed & are unremarkable except as noted in HPI & below Physical Exam Physical Exam: Not done Results & Data ([facility]) Vital Signs (Past 12 Hours) Vital Signs Temp Pulse Pulse Resp BP Pulse Ox 07/17/20 07:49 36.4 C L 84 18 136/80 92 07/17/20 07:09 82 07/17/20 04:59 36.7 C 89 16 124/80 88 L 07/17/20 02:56 78 Laboratory Results 07/16/20 06:55 07/17/20 07:03 (1) CKD (chronic kidney disease), stage III Chronic kidney disease stage 3 subtype: stage 3b (GFR 30-44) Qualified Code(s): N18.32 - Chronic kidney disease, stage 3b
--- NOTE | 2020-07-17 17:58 | Hospitalist Progress Note ---
Date of Service July 17, 2020 Assessment & Plan (1) Acute respiratory failure with hypoxia: Marked hypoxia attributed to COVID-19 pneumonia + superimposed necrotizing pneumonia. Required high flow nasal O2 for prolonged period of time. O2 now weaned down NC 2-6 LPM alt with Oxymask. (2) COVID-19: SARS-CoV-2 PCR positive 05/22/20. COVID-19 infection with pneumonia + resp failure. (3) Necrotizing pneumonia: Suspected aspiration pneumonia. Continue IV piperacillin / tazobactam. ID recommends prolonged course of therapy. (4) Fluid overload: Received IV furosemide for fluid overload. Holding furosemide due to rising creatinine. (5) Nausea: Intermittent nausea. May have diabetic gastroparesis +/- GERD. Continue anti-emetics. Keep head of bed elevated. Added famotidine. Consider eventual gastric emptying scan. (6) Diarrhea: Frequent loose stools. Stools + for C diff gene, but negative for toxin on both 07/12 and 07/14. Was receiving empiric therapy with PO vanco, but was having nausea and vanco stopped. Diarrhea improved. (7) XOCHITL (acute kidney injury): Serum creatinine yesterday had risen to 3.05. Holding furosemide. Creatinine today = 2.99. Follow. (8) CKD (chronic kidney disease), stage III: CKD III due to diabetic nephropathy with superimposed XOCHITL as noted above. (9) Diabetes mellitus type I: Pharmacy consulted for glycemic management. Lantus / NovoLog per protocol. FBS today = 115. (10) Do not resuscitate status: As noted. (11) DVT prophylaxis: SQ enoxaparin. (12) Discharge planning issues: Anticipated return to [facility] when medically stable. Admission and Anticipated Discharge Date Admission Date: May 22, 2020 Subjective Recheck for COVID-19, pneumonia, and other problems. Patient seen in their room around 1500. Respiratory status improved- alternating Oxymask and NC. Occasional cough. No SOB at rest. Tired. Nausea improved. Ate most of lunch. Diarrhea improved. Review of Systems: Constitutional- no fever. Cardiac- no anginal symptoms. Pulmonary- as noted above. GI- as noted above. - Hanna cath. Otherwise, as noted above. Physical Exam Constitutional: + ill appearing; no acute distress Eyes: + anicteric sclerae Respiratory: no respiratory distress Auscultation: + rales (bibasilar) Cardiovascular: Rate/Rhythm: regular rate and regular rhythm Vessels: no JVD Extremities: no calf tenderness and no edema Gastrointestinal (Abdomen): Inspection/Auscultation: normal bowel sounds Percussion/Palpation: abdomen soft; abdomen nontender Musculoskeletal: Extremities: no cyanosis Skin: no rashes, warm and dry Psychiatric: Orientation: alert and oriented x 3 Genitourinary: + bladder abnormal to inspection (Hanna cath) Results & Data Results & Data ([facility]) Vital Signs (Past 12 Hours) Vital Signs Temp Pulse Pulse Resp BP BP Pulse Ox 07/17/20 16:00 80 07/17/20 15:18 36.5 C 80 120/68 91 07/17/20 07:49 36.4 C L 84 18 136/80 92 07/17/20 07:09 82 (1) CKD (chronic kidney disease), stage III Chronic kidney disease stage 3 subtype: stage 3b (GFR 30-44) Qualified Code(s): N18.32 - Chronic kidney disease, stage 3b
[2020-07-18] MEDS: PIPERACILLIN/TAZOBACTAM 4.5 GM in DEXTROSE 5% 100 ML IV SCH ×3 (03:58→20:46)
[2020-07-18] MEDS: LACTOBACILLUS ACIDOPHILUS 1 GM PACK PO SCH ×3 (08:40→17:10)
[2020-07-18] MEDS: FLUDROCORTISONE ACETATE 0.1 MG TAB PO SCH (08:42)
[2020-07-18] MEDS: NEPHROCAPS PO SCH (08:42)
[2020-07-18] MEDS: INSULIN GLARGINE SOLOSTAR 100 UNITS/ML 3 ML PEN SC SCH ×2 (08:48→20:45)
[2020-07-18] MEDS: INSULIN ASPART 100 UNITS/ML 3 ML PEN SC SCH ×4 (08:48→20:46)
[2020-07-18] MEDS: BETAMETHASONE VAL 0.1% CR 15 GM EXT SCH ×2 (08:50→20:46)
[2020-07-18] MEDS: ENOXAPARIN INJ 40 MG/0.4 ML SYR SQ SCH (08:50)
[2020-07-18] MEDS: FAMOTIDINE 20 MG in SYRINGE 3 ML IV SCH ×2 (08:56→20:45)
--- NOTE | 2020-07-18 12:21 | Nephrology Progress Note ---
Date of Service July 18, 2020 Assessment & Plan (1) CKD (chronic kidney disease), stage III: Baseline creatinine 2.3 in 12/2019. No OP/prior to admission creatinine documented. Pt presented with creatinine 2.5 on 05/22; then bumped to 05/27 in mid to low 3s. peaked at 4.5 on 06/02; creat under 3 since 06/10; labs on 06/29 in low 2's, at baseline. uacm w/ 3+ dipstick protein, 1+ blood, consistent with even 2018 sediment; no infection or other inflammation. pt is open to dialysis if need arises; though he is doing better from renal standpoint than earlier this month. -Has been net negative over the last 72 hours , Lasix was reduced to 40 twice daily yesterday as his oxygen requirement had decreased. -Creatinine improved after withholding Lasix , labs from today awaited continues to make good urine saturations of around 92-94% on 4 L comfortable -Continue to hold Lasix for today. -Daily BMP -monitor electrolytes and replace accordingly. 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 s/p course of dexamethasone >>fludro was stopped earlier topped but was restarted by Dr. Mercer. -lowered fludro to 0.25 mg daily on 07/02 (correction steroid user on 0.3 mg daily x months at least) and plan slow taper w/ dosing stepdown q 2-3 wks. -Pressure has been good. -stopped ACEI , continue to withhold at the moment (3) COVID-19: on high flow 02 for a few weeks now ; w/ near intubation / code purple for hypoxia 06/01 AM; ICU status downgraded 06/03; recurrent hypoxemic episodes corrected with self-proning >> he has been on 6L or more 02 continuously since 05/28; went up to 30L/min on oxymask -However he is maintaining good saturations on just 4-L of oxygen. Admission and Anticipated Discharge Date Admission Date: May 22, 2020 Subjective As per nursing staff, has been settled overnight agitations of 94 to 96% on 4 L cannula. UOP has been good. Review of Systems Review of Systems: Other As per nursing staff has been stable, area has almost settled as of breath improved Physical Exam Physical Exam: Not done, Covid PPD saving methods Results & Data ([facility]) Vital Signs (Past 12 Hours) Vital Signs Temp Pulse Resp BP Pulse Ox 07/18/20 11:36 36.8 C 81 20 109/68 94 07/18/20 08:15 36.7 C 97 H 18 126/74 97 07/18/20 03:37 36.7 C 83 18 125/72 98 (1) CKD (chronic kidney disease), stage III Chronic kidney disease stage 3 subtype: stage 3b (GFR 30-44) Qualified Code(s): N18.32 - Chronic kidney disease, stage 3b
[2020-07-18] MEDS: LORazepam 0.25 MG/0.5 ML VIAL IV PRN ×2 (13:34→23:28)
--- NOTE | 2020-07-18 21:53 | Hospitalist Progress Note ---
Date of Service July 18, 2020 Assessment & Plan (1) Acute respiratory failure with hypoxia: Marked hypoxia attributed to COVID-19 pneumonia + superimposed necrotizing pneumonia. Required high flow nasal O2 for prolonged period of time. O2 now weaned down NC 4 LPM alt with Oxymask. (2) COVID-19: SARS-CoV-2 PCR positive 05/22/20. COVID-19 infection with pneumonia + resp failure. (3) Necrotizing pneumonia: Suspected aspiration pneumonia. Continue IV piperacillin / tazobactam. ID recommends prolonged course of therapy. (4) Fluid overload: Received IV furosemide for fluid overload. Holding furosemide due to rising creatinine. (5) Nausea: Intermittent nausea. May have diabetic gastroparesis +/- GERD. Continue anti-emetics. Keep head of bed elevated. Added famotidine. Consider eventual gastric emptying scan. (6) Diarrhea: Frequent loose stools. Stools + for C diff gene, but negative for toxin on both 07/12 and 07/14. Was receiving empiric therapy with PO vanco, but was having nausea and vanco stopped. Diarrhea improved. (7) XOCHITL (acute kidney injury): Serum creatinine yesterday had risen to 3.05. Holding furosemide. Creatinine yesterday = 2.99. Follow. (8) CKD (chronic kidney disease), stage III: CKD III due to diabetic nephropathy with superimposed XOCHITL as noted above. (9) Diabetes mellitus type I: Pharmacy consulted for glycemic management. Lantus / NovoLog per protocol. FBS today = 218. (10) Do not resuscitate status: As noted. (11) DVT prophylaxis: SQ enoxaparin. (12) Discharge planning issues: Anticipated return to [facility] when medically stable. Admission and Anticipated Discharge Date Admission Date: May 22, 2020 Subjective Recheck for COVID-19, pneumonia, and other problems. Patient seen in their room around 1400. Respiratory status improved- alternating Oxymask and NC generally @ 4 LPM. Occasional cough. No SOB at rest. Nausea improved. Diarrhea improved. Hanna cath removed yesterday. Unable to void this morning- required straight cath. Review of Systems: Constitutional- no fever. Cardiac- no anginal symptoms. Pulmonary- as noted above. GI- as noted above. - as noted above. Otherwise, as noted above. Physical Exam Constitutional: + ill appearing; no acute distress Eyes: + anicteric sclerae Respiratory: no respiratory distress Auscultation: + rales (bibasilar) Cardiovascular: Rate/Rhythm: regular rate and regular rhythm Vessels: no JVD Extremities: no calf tenderness and no edema Gastrointestinal (Abdomen): Inspection/Auscultation: normal bowel sounds Percussion/Palpation: abdomen soft; abdomen nontender Musculoskeletal: Extremities: no cyanosis Skin: no rashes, warm and dry Psychiatric: Orientation: alert and oriented x 3 Genitourinary: + bladder abnormal to inspection (Hanna cath) Results & Data Results & Data ([facility]) Vital Signs (Past 12 Hours) Vital Signs Temp Pulse Pulse Resp BP BP Pulse Ox 07/18/20 19:14 36.5 C 74 18 137/80 94 07/18/20 18:27 76 07/18/20 17:00 36.4 C L 73 18 108/67 94 07/18/20 12:41 75 07/18/20 11:36 36.8 C 81 20 109/68 94 Laboratory Results Laboratory Results - last 24 hr 07/18/20 07/18/20 07/18/20 07:47 11:40 16:54 POC Glucose 218 H 154 H 81 07/18/20 20:10 POC Glucose 105 H (1) CKD (chronic kidney disease), stage III Chronic kidney disease stage 3 subtype: stage 3b (GFR 30-44) Qualified Code(s): N18.32 - Chronic kidney disease, stage 3b
[2020-07-19] MEDS: PIPERACILLIN/TAZOBACTAM 4.5 GM in DEXTROSE 5% 100 ML IV SCH ×3 (05:07→21:49)
[2020-07-19] MEDS: ONDANSETRON INJ 2 MG/ML 2 ML VIAL IV PRN (08:54)
[2020-07-19] MEDS: NEPHROCAPS PO SCH (08:54)
[2020-07-19] MEDS: FLUDROCORTISONE ACETATE 0.1 MG TAB PO SCH (08:55)
[2020-07-19] MEDS: ENOXAPARIN INJ 40 MG/0.4 ML SYR SQ SCH (08:56)
[2020-07-19] MEDS: FAMOTIDINE 20 MG in SYRINGE 3 ML IV SCH (08:56)
[2020-07-19] MEDS: LACTOBACILLUS ACIDOPHILUS 1 GM PACK PO SCH ×3 (08:56→18:14)
[2020-07-19] MEDS: BETAMETHASONE VAL 0.1% CR 15 GM EXT SCH ×2 (08:59→21:52)
[2020-07-19] MEDS: LORazepam 0.25 MG/0.5 ML VIAL IV PRN ×2 (09:00→21:52)
[2020-07-19 09:04] LABS: Hematocrit (blood only) 34.2 % (42-52); Hemoglobin 10.9 g/dL (14.0-18.0); Mean Corpuscular Hemoglobin 27.9 pg (25-34); Mean Corpuscular Hgb Conc 31.9 g/dL (32-36); Mean Corpuscular Volume 87.7 fL (80-100); Mean Platelet Volume 9.8 fL (7.4-10.4); Platelet Count 547 K/uL (130-400); RDW Coefficient of Variation 17.9 % (11.5-14.5); RDW Standard Deviation 56.9 fL (36.4-46.3); White Blood Count 8.33 K/uL (4.8-10.8)
[2020-07-19] MEDS: INSULIN ASPART 100 UNITS/ML 3 ML PEN SC SCH ×4 (09:11→21:51)
[2020-07-19] MEDS: INSULIN GLARGINE SOLOSTAR 100 UNITS/ML 3 ML PEN SC SCH ×2 (09:12→21:50)
[2020-07-19 09:28] LABS: BUN Creatinine Ratio 9.4 (10-20); Calcium 8.6 mg/dl (8.5-10.1); Est GFR (African American) 27.1; Est GFR (Non-African American) 23.4; Potassium 3.2 mmol/L (3.5-5.1)
[2020-07-19] MEDS ORDERED: SODIUM CHLORIDE 0.65% NA SOLN 45 ML (OCEAN) ONE (10:42)
[2020-07-19] MEDS: POTASSIUM CHLORIDE / WTR 10 MEQ/100 ML PLCT IV SCH ×2 (12:04→13:08)
[2020-07-19] MEDS: SODIUM CHLORIDE 0.65% NA SOLN 45 ML (OCEAN) SCH ×2 (12:07→21:51)
--- NOTE | 2020-07-19 12:13 | Hospitalist Progress Note ---
Date of Service July 19, 2020 Assessment & Plan (1) Acute respiratory failure with hypoxia: Marked hypoxia attributed to COVID-19 pneumonia + superimposed necrotizing pneumonia. Required high flow nasal O2 for prolonged period of time. O2 now weaned down NC 4 LPM alt with Oxymask. (2) COVID-19: SARS-CoV-2 PCR positive 05/22/20. COVID-19 infection with pneumonia + resp failure. (3) Necrotizing pneumonia: Suspected aspiration pneumonia. Continue IV piperacillin / tazobactam. ID recommends prolonged course of therapy. (4) Fluid overload: Received IV furosemide for fluid overload. Holding furosemide due to rising creatinine. (5) Nausea: Intermittent nausea. May have diabetic gastroparesis +/- GERD. Continue anti-emetics. Keep head of bed elevated. Persistent nausea despite some improvement with famotidine. Try PPI (lansoprazole ODT). Consider GI consult if no improvement. (6) Diarrhea: Frequent loose stools. Stools + for C diff gene, but negative for toxin on both 07/12 and 07/14. Was receiving empiric therapy with PO vanco, but stopped due to severe nausea. Diarrhea improved. (7) XOCHITL (acute kidney injury): Serum creatinine yesterday had risen to 3.05. Holding furosemide. Creatinine today = 2.87. Follow. (8) CKD (chronic kidney disease), stage III: CKD III due to diabetic nephropathy with superimposed XOCHITL as noted above. (9) Diabetes mellitus type I: Fluctuating blood sugars due to acute illness and variable PO intake. Pharmacy consulted for glycemic management. Lantus / NovoLog per protocol. FBS today = 80. (10) Do not resuscitate status: As noted. (11) DVT prophylaxis: SQ enoxaparin. (12) Discharge planning issues: Anticipated return to [facility] when medically stable. Admission and Anticipated Discharge Date Admission Date: May 22, 2020 Subjective Recheck for COVID-19, pneumonia, and other problems. Patient seen in their room around 1400. Respiratory status stable- alternating Oxymask and NC generally @ 4 LPM. Occasional cough. No SOB at rest. Having some mild epistaxis. Persistent nausea; did not eat much breakfast. 2 loose stools today. Hanna cath removed 07/17. Still unable to void- requiring straight caths. Review of Systems: Constitutional- no fever. Cardiac- no anginal symptoms. Pulmonary- as noted above. GI- as noted above. - as noted above. Otherwise, as noted above. Physical Exam Constitutional: + ill appearing; no acute distress Eyes: + anicteric sclerae Respiratory: no respiratory distress Auscultation: + rales (bibasilar) Cardiovascular: Rate/Rhythm: regular rate and regular rhythm Vessels: no JVD Extremities: no calf tenderness and no edema Gastrointestinal (Abdomen): Inspection/Auscultation: normal bowel sounds Percussion/Palpation: abdomen soft; abdomen nontender Musculoskeletal: Extremities: no cyanosis Skin: no rashes, warm and dry Psychiatric: Orientation: alert and oriented x 3 Results & Data Results & Data ([facility]) Vital Signs (Past 12 Hours) Vital Signs Temp Pulse Pulse Resp BP BP Pulse Ox 07/19/20 11:25 36.6 C 73 20 121/76 100 07/19/20 08:00 68 07/19/20 04:00 36.5 C 74 18 116/71 89 L Laboratory Results Laboratory Results - last 24 hr 07/18/20 07/18/20 07/19/20 16:54 20:10 07:46 WBC RBC Hgb Hct MCV MCH MCHC RDW Std Deviation RDW Coeff of Minnie Plt Count MPV Sodium Potassium Chloride Carbon Dioxide Anion Gap BUN Creatinine Est Cr Clr Drug Dosing Est GFR ( Amer) Est GFR (Non-Af Amer) BUN/Creatinine Ratio Glucose POC Glucose 81 105 H 80 Calcium 07/19/20 07/19/20 07/19/20 08:47 08:47 11:24 WBC 8.33 RBC 3.90 L Hgb 10.9 L Hct 34.2 L MCV 87.7 MCH 27.9 MCHC 31.9 L RDW Std Deviation 56.9 H RDW Coeff of Minnie 17.9 H Plt Count 547 H MPV 9.8 Sodium 141 Potassium 3.2 L Chloride 105 Carbon Dioxide 27 Anion Gap 9.0 BUN 27 H Creatinine 2.87 H Est Cr Clr Drug Dosing 30.0 Est GFR ( Amer) 27.1 Est GFR (Non-Af Amer) 23.4 BUN/Creatinine Ratio 9.4 L Glucose 98 POC Glucose 90 Calcium 8.6 (1) CKD (chronic kidney disease), stage III Chronic kidney disease stage 3 subtype: stage 3b (GFR 30-44) Qualified Code(s): N18.32 - Chronic kidney disease, stage 3b
--- NOTE | 2020-07-19 14:59 | Nephrology Progress Note ---
Date of Service July 19, 2020 Assessment & Plan (1) CKD (chronic kidney disease), stage III: Baseline creatinine 2.3 in 12/2019. No OP/prior to admission creatinine documented. Pt presented with creatinine 2.5 on 05/22; then bumped to 05/27 in mid to low 3s. peaked at 4.5 on 06/02; creat under 3 since 06/10; labs on 06/29 in low 2's, at baseline. uacm w/ 3+ dipstick protein, 1+ blood, consistent with even 2018 sediment; no infection or other inflammation. pt is open to dialysis if need arises; though he is doing better from renal standpoint than earlier this month. -Has been net negative over the last 72 hours , Lasix was reduced to 40 twice daily yesterday as his oxygen requirement had decreased. -Creatinine improved after withholding Lasix ,saturations of around 92-94% on 4 L comfortable -Continue to hold Lasix for today -Reassessment of volume status. -Daily BMP -monitor electrolytes and replace accordingly. 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 s/p course of dexamethasone >>fludro was stopped earlier topped but was restarted by Dr. Mercer. -lowered fludro to 0.25 mg daily on 07/02 (skilled nursing steroid user on 0.3 mg daily x months at least) and plan slow taper w/ dosing stepdown q 2-3 wks. -Pressure has been good. -stopped ACEI , continue to withhold at the moment (3) COVID-19: on high flow 02 for a few weeks now ; w/ near intubation / code purple for hypoxia 06/01 AM; ICU status downgraded 06/03; recurrent hypoxemic episodes corrected with self-proning >> he has been on 6L or more 02 continuously since 05/28; went up to 30L/min on oxymask -However he is maintaining good saturations on just 4-L of oxygen. Admission and Anticipated Discharge Date Admission Date: May 22, 2020 Subjective Per nursing staff, shortness of breath is improved, no new complaints Review of Systems Review of Systems: Other As per nursing staff no complaints Physical Exam Physical Exam: Not done, Covid PPD saving methods Results & Data ([facility]) Vital Signs (Past 12 Hours) Vital Signs Temp Pulse Pulse Resp BP BP Pulse Ox 07/19/20 11:25 36.6 C 73 20 121/76 100 07/19/20 08:00 68 07/19/20 04:00 36.5 C 74 18 116/71 89 L Laboratory Results 07/19/20 08:47 07/19/20 08:47 (1) CKD (chronic kidney disease), stage III Chronic kidney disease stage 3 subtype: stage 3b (GFR 30-44) Qualified Code(s): N18.32 - Chronic kidney disease, stage 3b
[2020-07-19] MEDS: LANSOPRAZOLE 30 MG SOLTAB PO SCH (21:45)
[2020-07-20] MEDS: PIPERACILLIN/TAZOBACTAM 4.5 GM in DEXTROSE 5% 100 ML IV SCH ×3 (05:08→21:37)
[2020-07-20] MEDS: LORazepam 0.25 MG/0.5 ML VIAL IV PRN ×2 (05:09→12:22)
[2020-07-20] MEDS: CARBOHYDRATES FOR HYPOGLYCEMIA PO PRN (07:42)
[2020-07-20] MEDS: INSULIN ASPART 100 UNITS/ML 3 ML PEN SC SCH ×4 (08:31→21:57)
[2020-07-20] MEDS: LACTOBACILLUS ACIDOPHILUS 1 GM PACK PO SCH ×3 (08:31→17:27)
[2020-07-20] MEDS: INSULIN GLARGINE SOLOSTAR 100 UNITS/ML 3 ML PEN SC SCH ×2 (08:31→08:33)
[2020-07-20] MEDS: NEPHROCAPS PO SCH (08:32)
[2020-07-20] MEDS: BETAMETHASONE VAL 0.1% CR 15 GM EXT SCH ×2 (08:32→21:37)
[2020-07-20] MEDS: ENOXAPARIN INJ 40 MG/0.4 ML SYR SQ SCH (08:32)
[2020-07-20] MEDS: FLUDROCORTISONE ACETATE 0.1 MG TAB PO SCH (08:32)
[2020-07-20] MEDS: SODIUM CHLORIDE 0.65% NA SOLN 45 ML (OCEAN) SCH ×3 (08:33→21:37)
[2020-07-20 08:42] LABS: BUN Creatinine Ratio 8.7 (10-20); Calcium 8.6 mg/dl (8.5-10.1); Creatinine Clr Calc Pharmacy 30.9 ml/min; Est GFR (African American) 28.1; Est GFR (Non-African American) 24.2
[2020-07-20] MEDS: POTASSIUM CHLORIDE / WTR 10 MEQ/100 ML PLCT IV SCH (10:12)
[2020-07-20] MEDS: LANSOPRAZOLE 30 MG SOLTAB PO SCH ×2 (10:12→21:38)
--- NOTE | 2020-07-20 11:23 | Pharmacy Report ---
Pharmacy Glycemic Short Note 2 - Date of Service July 20, 2020 - Glycemic Short BSG Results (Last 24 hours): 07/19/20 07/19/20 07/19/20 11:24 16:44 20:18 Glucose POC Glucose 90 82 106 H 07/20/20 07/20/20 07/20/20 07:36 07:50 08:27 Glucose 54 L POC Glucose 58 L* 105 H Outpatient Anti-diabetic Regimen: * Lantus 15 units SC qAM, 8 units SC qPM * A1c = 8.3 % on 05/23/20 ASSESSMENT: 07/19 * Patient received 16 units of insulin yesterday (all of which was basal) * BSGs of 80, 90, 82, and 106 mg/dL * Fasting BSG of 58 mg/dL this morning - will plan to decrease HS Lantus scale this evening 07/16 * Patient received 30 units of insulin yesterday, of which 14 were basal * Fasting BSG still elevated despite recent dose increase - will further titrate this AM to 13 units * Continue same CF/CF for now 07/15 * Patient received total of 36 units of insulin yesterday, of which 14 were basal * Fasting BSG elevated at 209 - likely related to basal deficient. Patient previously refusing basal 07/13 evening d/t poor PO intake * Plan to continue with usual basal this evening, anticipate BSGs to improve PLAN FOR INPATIENT GLYCEMIC CONTROL: * Basal insulin * Lantus 13 units SQ qAM and Lantus scale HS (0-2 units based on BSG) * Bolus insulin: no change * Novolog SQ ACHS * Goal range: 110-140mg/dL * Correction Factor: 25 mg/dL/unit * Nutritional / Prandial insulin per carb ratio of 1 unit per 7 grams CHO consumed PLAN FOR DISCHARGE: * Patient's BSGs have been incredibly labile throughout this admission * Discharge recommendation will be largely dependent on patient's oral intake upon discharge * Based on current intake, patient likely requires dose reduction of Lantus - dosed TBD at time of discharge
[2020-07-20] MEDS: ONDANSETRON INJ 2 MG/ML 2 ML VIAL IV PRN (12:22)
--- NOTE | 2020-07-20 21:12 | Hospitalist Progress Note ---
Date of Service July 20, 2020 Assessment & Plan (1) Acute respiratory failure with hypoxia: Marked hypoxia attributed to COVID-19 pneumonia + superimposed necrotizing pneumonia. Required high flow nasal O2 for prolonged period of time. O2 now weaned down NC 3-4 LPM alt with Oxymask. (2) COVID-19: SARS-CoV-2 PCR positive 05/22/20. COVID-19 infection with pneumonia + resp failure. (3) Necrotizing pneumonia: Suspected aspiration pneumonia. Continue IV piperacillin / tazobactam. ID recommends prolonged course of therapy. (4) Fluid overload: Received IV furosemide for fluid overload. Holding furosemide due to rising creatinine. (5) Nausea: Intermittent nausea. May have diabetic gastroparesis +/- GERD. Continue anti-emetics. Keep head of bed elevated. Persistent nausea despite some improvement with famotidine. Trying PPI (lansoprazole ODT). UGI + barium swallow scheduled for 07/21. Gastric emptying scan scheduled for 07/22. May need EGD. GI follow-up after imaging studies completed. (6) Diarrhea: Frequent loose stools. Stools + for C diff gene, but negative for toxin on both 07/12 and 07/14. Was receiving empiric therapy with PO vanco, but stopped due to severe nausea. Diarrhea improved. (7) XOCHITL (acute kidney injury): Serum creatinine soto to 3.05 while receiving furosemide for volume overload. Furosemide held. Creatinine today = 2.79. Follow. (8) CKD (chronic kidney disease), stage III: CKD III due to diabetic nephropathy with superimposed XOCHITL as noted above. (9) Diabetes mellitus type I: Fluctuating blood sugars due to acute illness and variable PO intake. Pharmacy consulted for glycemic management. Lantus / NovoLog per protocol. Variable PO intake due to nausea. FBS today = 105. (10) Do not resuscitate status: As noted. (11) DVT prophylaxis: SQ enoxaparin. (12) Discharge planning issues: Anticipated return to [facility] when medically stable. Admission and Anticipated Discharge Date Admission Date: May 22, 2020 Subjective Recheck for COVID-19, pneumonia, and other problems. Patient seen in their room around 1400. Respiratory status stable- alternating Oxymask and NC generally @ 4 LPM. Occasional cough. No SOB at rest. Epistaxis Ongoing severe nausea and poor PO intake. Diarrhea improved. Hanna cath removed 07/17. Had some urinary retention and incontinence- better today. Review of Systems: Constitutional- no fever. Cardiac- no anginal symptoms. Pulmonary- as noted above. GI- as noted above. - as noted above. Otherwise, as noted above. Physical Exam Constitutional: + ill appearing; no acute distress Eyes: + anicteric sclerae Respiratory: no respiratory distress Auscultation: + rales (bibasilar) Cardiovascular: Rate/Rhythm: regular rate and regular rhythm Vessels: no JVD Extremities: no calf tenderness and no edema Gastrointestinal (Abdomen): Inspection/Auscultation: normal bowel sounds Percussion/Palpation: abdomen soft; abdomen nontender Musculoskeletal: Extremities: no cyanosis Skin: no rashes, warm and dry Psychiatric: Orientation: alert and oriented x 3 Results & Data Results & Data ([facility]) Vital Signs (Past 12 Hours) Vital Signs Temp Pulse Pulse Resp BP Pulse Ox 07/20/20 16:00 75 07/20/20 11:15 36.8 C 86 18 139/70 99 Laboratory Results 07/20/20 07:50 (1) CKD (chronic kidney disease), stage III Chronic kidney disease stage 3 subtype: stage 3b (GFR 30-44) Qualified Code(s): N18.32 - Chronic kidney disease, stage 3b
[2020-07-21] MEDS: PIPERACILLIN/TAZOBACTAM 4.5 GM in DEXTROSE 5% 100 ML IV SCH (04:23)
[2020-07-21 06:54] LABS: BUN Creatinine Ratio 8.1 (10-20); Calcium 8.2 mg/dl (8.5-10.1); Creatinine Clr Calc Pharmacy 31.1 ml/min; Est GFR (African American) 28.3; Est GFR (Non-African American) 24.4; Magnesium 2.3 mg/dl (1.8-2.4); Potassium 3.1 mmol/L (3.5-5.1)
[2020-07-21] MEDS: ENOXAPARIN INJ 40 MG/0.4 ML SYR SQ SCH (08:49)
[2020-07-21] MEDS: INSULIN ASPART 100 UNITS/ML 3 ML PEN SC SCH ×4 (08:53→22:05)
[2020-07-21] MEDS: LACTOBACILLUS ACIDOPHILUS 1 GM PACK PO SCH ×3 (08:54→17:57)
[2020-07-21] MEDS: FLUDROCORTISONE ACETATE 0.1 MG TAB PO SCH (08:55)
[2020-07-21] MEDS: LANSOPRAZOLE 30 MG SOLTAB PO SCH ×2 (08:57→22:05)
[2020-07-21] MEDS: BETAMETHASONE VAL 0.1% CR 15 GM EXT SCH ×2 (08:58→22:05)
[2020-07-21] MEDS: SODIUM CHLORIDE 0.65% NA SOLN 45 ML (OCEAN) SCH ×4 (08:59→22:05)
[2020-07-21] MEDS: NEPHROCAPS PO SCH (08:59)
[2020-07-21] MEDS ORDERED: INSULIN GLARGINE SOLOSTAR 100 UNITS/ML 3 ML PEN SC ONE (09:00)
[2020-07-21] MEDS ORDERED: POTASSIUM CHLORIDE CRTAB 20 MEQ TABCR PO ONE (10:00)
--- NOTE | 2020-07-21 10:32 | Nephrology Progress Note ---
Date of Service July 21, 2020 Assessment & Plan (1) CKD (chronic kidney disease), stage III: Baseline creatinine 2.3 in 12/2019. No OP/prior to admission creatinine documented. Pt presented with creatinine 2.5 on 05/22; then bumped to 05/27 in mid to low 3s. peaked at 4.5 on 06/02; creat under 3 since 06/10; labs on 06/29 in low 2's, at baseline. uacm w/ 3+ dipstick protein, 1+ blood, consistent with even 2018 sediment; no infection or other inflammation. pt is open to dialysis if need arises; though he is doing better from renal standpoint than earlier this month. Creatinine 2.77 today from 2.79 yesterday. Potassium 3.1 due to fludrocortisone -Will give potassium chloride 40 mEq today. -Continue current dose of Lasix -Daily BMP -monitor electrolytes and replace accordingly. 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 -Will hold fludrocortisone (3) COVID-19: on high flow 02 for a few weeks now ; w/ near intubation / code purple for hypoxia 06/01 AM; ICU status downgraded 06/03; recurrent hypoxemic episodes corrected with self-proning >> he has been on 6L or more 02 continuously since 05/28; Oxygenation is much better now maintaining sats on 4 L nasal cannula -We will continue diuresis as above Admission and Anticipated Discharge Date Admission Date: May 22, 2020 Subjective Seen in follow-up for acute kidney injury. He feels better denies any shortness of breath. He remains on oxygen nasal cannula. No leg swelling. Urine output is adequate creatinine slowly downtrending Review of Systems Review of Systems: All systems reviewed & are unremarkable except as noted in HPI & below Physical Exam Physical Exam: General exam: Appears comfortable, no acute distress HEENT: Pupils are equal and reactive to light Neck: No JVD, neck is supple trachea is midline Respiratory system: Clear breath sounds bilaterally. Gastrointestinal: Abdomen is soft, non distended, non tender, bowel sounds are present CVS: Regular rate and rhythm. No murmurs, rubs or gallops Musculoskeletal: No joint or muscle tenderness Extremities: Non tender, no edema, peripheral pulses are present Neuro: Oriented, no tremors, no focal neurological deficits Skin: No rashes Results & Data ([facility]) Vital Signs (Past 12 Hours) Vital Signs Temp Pulse Resp BP BP Pulse Ox 07/21/20 07:51 36.5 C 78 18 149/85 H 93 07/21/20 04:24 36.4 C L 75 24 140/75 91 07/20/20 23:14 36.5 C 82 18 136/77 94 Laboratory Results 07/21/20 05:45 (1) CKD (chronic kidney disease), stage III Chronic kidney disease stage 3 subtype: stage 3b (GFR 30-44) Qualified Code(s): N18.32 - Chronic kidney disease, stage 3b
[2020-07-21] MEDS: ONDANSETRON INJ 2 MG/ML 2 ML VIAL IV PRN (10:50)
--- NOTE | 2020-07-21 10:50 | XRay Report ---
TWO VIEW CHEST CLINICAL HISTORY: Necrotizing pneumonia. FINDINGS: AP and lateral chest radiographs are compared to study dated 07/13/2020. Correlation is mad e with chest CT dated 07/01/2020. The heart is top normal for projection. Emphysematous change is agai n noted. Diffuse/multifocal airspace consolidation is similar to previous. This is most confluent at the left apex. There are small pleural effusions. There is no pneumothorax. The bony thorax appears i ntact. IMPRESSION: 1. Diffuse/multifocal airspace consolidation is unchanged to modestly increased as compared to 2019. 2. Confluent consolidation at the left apex is unchanged. 3. Emphysema. 4. Small pleural effusions persist. ACT 112: Negative or not required by law. Electronically signed by: Kendall Pardo M.D. 07/21/2020 10:49 AM
--- NOTE | 2020-07-21 14:47 | Pharmacy Report ---
Pharmacy Glycemic Short Note 2 - Date of Service July 21, 2020 - Glycemic Short BSG Results (Last 24 hours): 07/20/20 07/20/20 07/21/20 16:26 21:23 05:45 Glucose 129 H POC Glucose 128 H 128 H 07/21/20 07/21/20 07:42 11:51 Glucose POC Glucose 176 H 166 H Outpatient Anti-diabetic Regimen: * Lantus 15 units SC qAM, 8 units SC qPM * A1c = 8.3 % on 05/23/20 ASSESSMENT: 07/21: * Patient received 16 units of insulin yesterday: 13 units of basal and 3 units of bolus * Patient is NPO this morning for video swallow. Ordered a slightly reduced dose of Lantus 11 units this AM. Plan to give an additional 2 units at dinnertime since no evidence of BSG trending downward at this point. * No change to Novolog. 07/19 * Patient received 16 units of insulin yesterday (all of which was basal) * BSGs of 80, 90, 82, and 106 mg/dL * Fasting BSG of 58 mg/dL this morning - will plan to decrease HS Lantus scale this evening 07/16 * Patient received 30 units of insulin yesterday, of which 14 were basal * Fasting BSG still elevated despite recent dose increase - will further titrate this AM to 13 units * Continue same CF/CF for now 07/15 * Patient received total of 36 units of insulin yesterday, of which 14 were basal * Fasting BSG elevated at 209 - likely related to basal deficient. Patient previously refusing basal 07/13 evening d/t poor PO intake * Plan to continue with usual basal this evening, anticipate BSGs to improve PLAN FOR INPATIENT GLYCEMIC CONTROL: * Basal insulin * Lantus 13 units SQ qAM * Lantus 2 units SQ with dinner * Bolus insulin: no change * Novolog SQ ACHS * Goal range: 110-140mg/dL * Correction Factor: 25 mg/dL/unit * Nutritional / Prandial insulin per carb ratio of 1 unit per 7 grams CHO consumed PLAN FOR DISCHARGE: * Patient's BSGs have been incredibly labile throughout this admission * Discharge recommendation will be largely dependent on patient's oral intake upon discharge * Based on current intake, patient likely requires dose reduction of Lantus - dosed TBD at time of discharge
[2020-07-21] MEDS ORDERED: INSULIN GLARGINE SOLOSTAR 100 UNITS/ML 3 ML PEN SC SCH (16:30)
--- NOTE | 2020-07-21 20:38 | Hospitalist Progress Note ---
Date of Service July 21, 2020 Assessment & Plan (1) Acute respiratory failure with hypoxia: Acute respiratory distress syndrome with severe hypoxic respiratory failure on admission secondary to COVID-19 infection Received conv plasma on 05/27. Received Steroids x 3 weeks and tapered off. Not a candidate for remdesivir due to renal failure -CT Chest revealed multifocal airspace consolidation with necrotizing/cavitary pneumonia in the ERASMO, and fluid in the distal esophagus. -Repeat CT scan showed B/L extensive necrotizing pneumonia,bilateral pleural effusion and left upper lobe lung abscess. CT scan was negative for any acute pulmonary embolism -HIV screen is negative -Discussed with ID -Appreciate pulmonology, ID input -Received multiple courses of antibiotics including Rocephin, doxycycline, cefepime, Unasyn -Completed zosyn--4 week course starting June 23 -Repeat chest x-ray 07/13/20 showed moderately improved aeration of the lungs. Small pleural effusions is mildly decreased. Persistent 5.8 cm left upper lobe opacity. -Very slowly improving -Saturating well on 2-3 L of supplemental oxygen -Continue to wean off of oxygen -Will discuss with ID for further instructions Intermittent nausea. May have diabetic gastroparesis and or GERD. Continue anti-emetics. PPI Trial Video Swallow, Gastric Emptying Study tmw May need EGD Consider GI re-eval if needed Bilateral pleural effusion Received IV lasix May not tolerate any procedures Appreciate Nephrology/Pulm Input Monitor renal function Left upper lobe lung abscess As above Received prolonged intravenous antibiotic course Needs follow up with ID/Pulm upon discharge (2) Pneumonia due to COVID-19 virus: Completed multiple antibiotic course while admitted. (Doxycycline 100mg BID 5 dys, stopped for 2, resumed 05/30 for 7 full days, Ceftriaxone x 14 days, Cefepime for an additional 3 days after the ceftriaxone completed, and Flagyl for 8 days. Also received Unasyn and currently on Zosyn from 07/06) Completed IV Zosyn course Diarrhea Stool for C diff: Gene positive, Toxin negative Hold stool softeners Received empiric vancomycin- DCed due to nausea Monitor (3) Diabetes mellitus type I: Glycemic pharmacist managing Continue Insulin therapy Monitor BGs (4) CKD (chronic kidney disease), stage III: XOCHITL on CKD III ? Baseline Cr: 2.3 Lisinopril discontinued Cr:2.7 today Appreciate nephrology input Monitor renal function Avoid nephrotoxic agents as able IV lasix held (5) Diabetic neuropathy: Was on Gabapentin (6) Hypothyroidism: Continue levothyroxine (7) Depression: Continue Prozac (8) Psoriasis: continue steroid cream BID (9) DVT prophylaxis: Lovenox SQ Code Status DNR/DNI [facility] Admission and Anticipated Discharge Date Admission Date: May 22, 2020 Subjective Patient is seen and examined at bedside Reports nausea, diarrhea Also has some abdominal discomfort, poor appetite Denies cough, dyspnea, chest pain Offers no other complaints Care Home guards at bedside Review of Systems Review of Systems: All systems reviewed & are unremarkable except as noted in HPI & below Physical Exam Physical Exam: Physical Exam: Vitals signs as noted above General Appearance: Ill-appearing, no apparent distress Head: normocephalic, Atraumatic Eyes: normal inspection, EOMI Neck: supple, Trachea midline Respiratory/Chest: Decreased breath sounds, left basal crackles Cardiovascular: S1, S2, No murmur Abdomen/GI:Soft, Non tender, Bowel sounds present Extremities/Musculoskelatal:normal inspection, no edema Neurologic/Psych:AAOX3, grossly no focal neurological deficits Skin: normal color, warm Results & Data Results & Data ([place]) Vital Signs (Past 12 Hours) Vital Signs Temp Pulse Pulse Resp BP BP Pulse Ox 07/21/20 19:55 36.4 C L 71 18 129/76 96 07/21/20 16:00 36.6 C 73 18 133/78 93 07/21/20 14:20 71 07/21/20 11:04 36.6 C 79 18 143/85 H 91 Laboratory Results [facility] 07/21/20 05:45 Sodium 137 Potassium 3.1 L Chloride 104 Carbon Dioxide 26 BUN 22 H Creatinine 2.77 H Glucose 129 H Calcium 8.2 L (1) CKD (chronic kidney disease), stage III Chronic kidney disease stage 3 subtype: stage 3b (GFR 30-44) Qualified Code(s): N18.32 - Chronic kidney disease, stage 3b
[2020-07-22] MEDS: D5W AND NSS 1,000 ML IV SCH ×2 (01:10→14:05)
[2020-07-22] MEDS: LEVOTHYROXINE SODIUM 137 MCG TABLET PO SCH (06:06)
[2020-07-22 07:37] LABS: Basophils # (auto) 0.26 K/uL (0-0.2); Basophils % (auto) 2.7 %; Eosinophils # (auto) 1.68 K/uL (0-0.5); Eosinophils % (auto) 17.2 %; Hematocrit (blood only) 30.2 % (42-52); Hemoglobin 9.7 g/dL (14.0-18.0); Immature Granulocytes # (auto) 0.03 K/uL (0.00-0.02); Immature Granulocytes % (auto) 0.3 %; Lymphocytes # (auto) 3.26 K/uL (1.2-3.4); Lymphocytes % (auto) 33.4 %; Mean Corpuscular Hemoglobin 27.6 pg (25-34); Mean Corpuscular Hgb Conc 32.1 g/dL (32-36); Mean Platelet Volume 9.8 fL (7.4-10.4); Monocytes # (auto) 0.66 K/uL (0.11-0.59); Monocytes % (auto) 6.8 %; Neutrophils # (auto) 3.86 K/uL (1.4-6.5); Neutrophils % (auto) 39.6 %; Platelet Count 532 K/uL (130-400); RDW Coefficient of Variation 18.1 % (11.5-14.5); RDW Standard Deviation 56.2 fL (36.4-46.3); Red Blood Count 3.51 M/uL (4.7-6.1); White Blood Count 9.75 K/uL (4.8-10.8)
[2020-07-22] MEDS: ONDANSETRON INJ 2 MG/ML 2 ML VIAL IV PRN (07:57)
[2020-07-22] MEDS: INSULIN ASPART 100 UNITS/ML 3 ML PEN SC SCH ×4 (07:57→21:02)
[2020-07-22 08:03] LABS: Calcium 8.4 mg/dl (8.5-10.1); Creatinine Clr Calc Pharmacy 35.1 ml/min; Est GFR (African American) 32.1; Est GFR (Non-African American) 27.7; Magnesium 2.2 mg/dl (1.8-2.4); Potassium 3.3 mmol/L (3.5-5.1)
[2020-07-22] MEDS: LACTOBACILLUS ACIDOPHILUS 1 GM PACK PO SCH ×3 (08:46→16:28)
--- NOTE | 2020-07-22 08:49 | Nuclear Medicine Report ---
NUCLEAR GASTRIC EMPTYING STUDY: (NO CHARGE) CLINICAL HISTORY: diabetic, severe nausea COMPARISON STUDY: None TECHNIQUE: The patient was unable to ingest the oral meal required for this examination. The meal con tained 1 mCi of technetium 99m sulfur colloid. The patient ate only one tiny bit of egg and then refu sed to eat anymore due to nausea. The examination is therefore nondiagnostic. IMPRESSION: Nondiagnostic study. ACT 112: Negative or not required by law. Electronically signed by: Jason Ram M.D. 07/22/2020 8:48 AM
[2020-07-22] MEDS ORDERED: FLUoxetine HCL 20 MG CAP PO SCH (09:00)
[2020-07-22] MEDS: INSULIN GLARGINE SOLOSTAR 100 UNITS/ML 3 ML PEN SC SCH (09:03)
[2020-07-22] MEDS: LANSOPRAZOLE 30 MG SOLTAB PO SCH ×2 (09:04→21:10)
[2020-07-22] MEDS: SODIUM CHLORIDE 0.65% NA SOLN 45 ML (OCEAN) SCH ×3 (09:04→21:10)
[2020-07-22] MEDS: NEPHROCAPS PO SCH (09:04)
[2020-07-22] MEDS: ENOXAPARIN INJ 40 MG/0.4 ML SYR SQ SCH (09:04)
[2020-07-22] MEDS: BETAMETHASONE VAL 0.1% CR 15 GM EXT SCH ×2 (09:05→21:11)
[2020-07-22] MEDS ORDERED: POTASSIUM CHLORIDE CRTAB 20 MEQ TABCR PO STA (10:20)
[2020-07-22] MEDS: POTASSIUM CHLORIDE / WTR 10 MEQ/100 ML PLCT IV SCH ×3 (10:45→12:52)
[2020-07-22] MEDS: METOCLOPRAMIDE HCL 5 MG TABLET PO SCH ×2 (13:18→16:26)
--- NOTE | 2020-07-22 19:34 | Hospitalist Progress Note ---
Date of Service July 22, 2020 Assessment & Plan (1) Acute respiratory failure with hypoxia: Acute respiratory distress syndrome with severe hypoxic respiratory failure on admission secondary to COVID-19 infection Received conv plasma on 05/27. Received Steroids x 3 weeks and tapered off. Not a candidate for remdesivir due to renal failure -CT Chest revealed multifocal airspace consolidation with necrotizing/cavitary pneumonia in the ERASMO, and fluid in the distal esophagus. -Repeat CT scan showed B/L extensive necrotizing pneumonia,bilateral pleural effusion and left upper lobe lung abscess. CT scan was negative for any acute pulmonary embolism -HIV screen is negative -Discussed with ID -Appreciate pulmonology, ID input -Received multiple courses of antibiotics including Rocephin, doxycycline, cefepime, Unasyn -Completed zosyn--4 week course starting June 23 -Repeat chest x-ray 07/13/20 showed moderately improved aeration of the lungs. Small pleural effusions is mildly decreased. Persistent 5.8 cm left upper lobe opacity. -Very slowly improving -Saturating well on 1-2 L of supplemental oxygen -Continue to wean off of oxygen -Will need follow up with ID upon discharge -May need 2 Step prior to discharge Intermittent nausea--Chronic as per Patient's Outpatient Provider May have diabetic gastroparesis and or GERD. Continue anti-emetics. PPI Trial Video Swallow, Gastric Emptying Study--Patient refused Consider GI re-eval as outpatient Tried Regaln in the past without much help--willing to try again Bilateral pleural effusion Received IV lasix May not tolerate any procedures Appreciate Nephrology/Pulm Input Monitor renal function Left upper lobe lung abscess As above Received prolonged intravenous antibiotic course Needs follow up with ID/Pulm upon discharge (2) Pneumonia due to COVID-19 virus: Completed multiple antibiotic course while admitted. (Doxycycline 100mg BID 5 dys, stopped for 2, resumed 05/30 for 7 full days, Ceftriaxone x 14 days, Cefepime for an additional 3 days after the ceftriaxone completed, and Flagyl for 8 days. Also received Unasyn and currently on Zosyn from 07/06) Completed IV Zosyn course for 28 days Diarrhea Stool for C diff: Gene positive, Toxin negative Hold stool softeners Received empiric vancomycin- DCed due to nausea Monitor (3) Diabetes mellitus type I: Glycemic pharmacist managing Continue Insulin therapy Monitor BGs (4) CKD (chronic kidney disease), stage III: XOCHITL on CKD III ? Baseline Cr: 2.3 Lisinopril discontinued Cr:2.5 today Appreciate nephrology input Monitor renal function Avoid nephrotoxic agents as able IV lasix held (5) Diabetic neuropathy: Was on Gabapentin (6) Hypothyroidism: Continue levothyroxine (7) Depression: Continue Prozac (8) Psoriasis: continue steroid cream BID (9) DVT prophylaxis: Lovenox SQ Code Status DNR/DNI [facility] Admission and Anticipated Discharge Date Admission Date: May 22, 2020 Subjective Patient is seen and examined at bedside Reports nausea but no vomiting Discussed with patient's primary provider from correctional facility over the phone Patient refused video swallow, gastric emptying study No other complaints Saturating well on 1 to 2 L of supplemental oxygen Denies cough, dyspnea, chest pain, abd pain Halfway guards at bedside Review of Systems Review of Systems: All systems reviewed & are unremarkable except as noted in HPI & below Physical Exam Physical Exam: Physical Exam: Vitals signs as noted above General Appearance: Ill-appearing, no apparent distress Head: normocephalic, Atraumatic Eyes: normal inspection, EOMI Neck: supple, Trachea midline Respiratory/Chest: Decreased breath sounds, CTA Cardiovascular: S1, S2, No murmur Abdomen/GI:Soft, Non tender, Bowel sounds present Extremities/Musculoskelatal:normal inspection, no edema Neurologic/Psych:AAOX3, grossly no focal neurological deficits Skin: normal color, warm Results & Data Results & Data ([facility]) Vital Signs (Past 12 Hours) Vital Signs Temp Pulse Pulse Resp BP BP Pulse Ox 07/22/20 15:20 36.7 C 74 18 133/79 93 07/22/20 15:00 71 07/22/20 11:23 36.7 C 75 16 151/79 H 94 07/22/20 07:48 36.6 C 83 20 149/77 H 93 07/22/20 07:29 70 Laboratory Results Short CBC 07/22/20 Range/Units 06:33 WBC 9.75 (4.8-10.8) K/uL Hgb 9.7 L (14.0-18.0) g/dL Hct 30.2 L (42-52) % Plt Count 532 H (130-400) K/uL BMP 07/22/20 06:33 Sodium 140 Potassium 3.3 L Chloride 107 Carbon Dioxide 27 BUN 18 Creatinine 2.50 H Glucose 178 H Calcium 8.4 L (1) CKD (chronic kidney disease), stage III Chronic kidney disease stage 3 subtype: stage 3b (GFR 30-44) Qualified Code(s): N18.32 - Chronic kidney disease, stage 3b
[2020-07-23] MEDS: LEVOTHYROXINE SODIUM 137 MCG TABLET PO SCH (05:46)
[2020-07-23 07:57] LABS: BUN Creatinine Ratio 6.4 (10-20); Calcium 8.5 mg/dl (8.5-10.1); Creatinine Clr Calc Pharmacy 42.3 ml/min; Est GFR (African American) 39.6; Est GFR (Non-African American) 34.2; Magnesium 2.2 mg/dl (1.8-2.4); Potassium 3.8 mmol/L (3.5-5.1)
[2020-07-23 08:07] LABS: Basophils # (auto) 0.17 K/uL (0-0.2); Basophils % (auto) 1.6 %; Eosinophils # (auto) 1.31 K/uL (0-0.5); Eosinophils % (auto) 12.5 %; Hematocrit (blood only) 29.8 % (42-52); Hemoglobin 9.5 g/dL (14.0-18.0); Immature Granulocytes # (auto) 0.03 K/uL (0.00-0.02); Immature Granulocytes % (auto) 0.3 %; Lymphocytes # (auto) 3.29 K/uL (1.2-3.4); Lymphocytes % (auto) 31.4 %; Mean Corpuscular Hemoglobin 27.3 pg (25-34); Mean Corpuscular Hgb Conc 31.9 g/dL (32-36); Mean Corpuscular Volume 85.6 fL (80-100); Mean Platelet Volume 9.8 fL (7.4-10.4); Monocytes # (auto) 0.78 K/uL (0.11-0.59); Monocytes % (auto) 7.4 %; Neutrophils # (auto) 4.89 K/uL (1.4-6.5); Neutrophils % (auto) 46.8 %; Platelet Count 497 K/uL (130-400); RDW Coefficient of Variation 18.6 % (11.5-14.5); RDW Standard Deviation 58.1 fL (36.4-46.3); Red Blood Count 3.48 M/uL (4.7-6.1); White Blood Count 10.47 K/uL (4.8-10.8)
[2020-07-23] MEDS: ONDANSETRON INJ 2 MG/ML 2 ML VIAL IV PRN (08:14)
[2020-07-23] MEDS: ENOXAPARIN INJ 40 MG/0.4 ML SYR SQ SCH (08:18)
[2020-07-23] MEDS: METOCLOPRAMIDE HCL 5 MG TABLET PO SCH ×2 (08:18→12:08)
[2020-07-23] MEDS: NEPHROCAPS PO SCH (08:18)
[2020-07-23] MEDS: LACTOBACILLUS ACIDOPHILUS 1 GM PACK PO SCH ×2 (08:18→11:44)
[2020-07-23] MEDS: LANSOPRAZOLE 30 MG SOLTAB PO SCH (08:19)
[2020-07-23] MEDS: INSULIN ASPART 100 UNITS/ML 3 ML PEN SC SCH ×2 (08:21→12:40)
[2020-07-23] MEDS: INSULIN GLARGINE SOLOSTAR 100 UNITS/ML 3 ML PEN SC SCH (08:22)
[2020-07-23] MEDS: BETAMETHASONE VAL 0.1% CR 15 GM EXT SCH (08:25)
[2020-07-23] MEDS: SODIUM CHLORIDE 0.65% NA SOLN 45 ML (OCEAN) SCH ×2 (08:25→12:42)
[2020-07-23 11:35] VITALS: TEMP 98.2; O2SAT 94
[2020-07-23] MEDS: CARBOHYDRATES FOR HYPOGLYCEMIA PO PRN ×2 (11:40→11:55)
[2020-07-23] MEDS ORDERED: DEXTROSE 50% 50 ML SYRINGE IV ONE (12:03)
[2020-07-23] MEDS ORDERED: GLUCOSE 10 TABS/TUBE PO PRN (12:15)
[2020-07-23] MEDS ORDERED: DEXTROSE 50% 50 ML SYRINGE IV PRN (12:15)
[2020-07-23] MEDS ORDERED: GLUCAGON FOR INJ 1 MG VIAL IM PRN (12:15)
[2020-07-23] MEDS ORDERED: GLUCOSE 40% GEL 15 GM TUBE PO PRN (12:15)
--- NOTE | 2020-07-23 13:08 | Hospitalist Progress Note ---
Date of Service July 23, 2020 Assessment & Plan (1) Acute respiratory failure with hypoxia: Acute respiratory distress syndrome with severe hypoxic respiratory failure on admission secondary to COVID-19 infection Received conv plasma on 05/27. Received Steroids x 3 weeks and tapered off. Not a candidate for remdesivir due to renal failure -CT Chest revealed multifocal airspace consolidation with necrotizing/cavitary pneumonia in the ERASMO, and fluid in the distal esophagus. -Repeat CT scan showed B/L extensive necrotizing pneumonia,bilateral pleural effusion and left upper lobe lung abscess. CT scan was negative for any acute pulmonary embolism -HIV screen is negative -Discussed with ID -Appreciate pulmonology, ID input -Received multiple courses of antibiotics including Rocephin, doxycycline, cefepime, Unasyn -Completed zosyn--4 week course starting June 23 -Repeat chest x-ray 07/13/20 showed moderately improved aeration of the lungs. Small pleural effusions is mildly decreased. Persistent 5.8 cm left upper lobe opacity. -Very slowly improving -Saturating well on 1 L of supplemental oxygen -Needs follow up with ID/Pulm upon discharge -Continue supplemental oxygen and wean off as able as outpatient Intermittent nausea--Chronic as per Patient's Outpatient Provider May have diabetic gastroparesis and or GERD. Continue anti-emetics. PPI Trial Video Swallow, Gastric Emptying Study--Patient refused Consider GI re-eval as outpatient Tried Regaln in the past without much help Bilateral pleural effusion Received IV lasix May not tolerate any procedures Appreciate Nephrology/Pulm Input Monitor renal function Left upper lobe lung abscess As above Received prolonged intravenous antibiotic course Needs follow up with ID/Pulm upon discharge (2) Pneumonia due to COVID-19 virus: Completed multiple antibiotic course while admitted. (Doxycycline 100mg BID 5 dys, stopped for 2, resumed 05/30 for 7 full days, Ceftriaxone x 14 days, Cefepime for an additional 3 days after the ceftriaxone completed, and Flagyl for 8 days. Also received Unasyn and currently on Zosyn from 07/06) Completed IV Zosyn course for 28 days Diarrhea Stool for C diff: Gene positive, Toxin negative Hold stool softeners Received empiric vancomycin- DCed due to nausea Monitor (3) Diabetes mellitus type I: Glycemic pharmacist managing Continue Insulin therapy Monitor BGs Blood glucose levels very variable. Discontinue Lantus for now Advised to follow-up with his physician for further insulin adjustment (4) CKD (chronic kidney disease), stage III: XOCHITL on CKD III ? Baseline Cr: 2.3 Lisinopril discontinued Cr:2.1 today Appreciate nephrology input Monitor renal function Avoid nephrotoxic agents as able (5) Diabetic neuropathy: Was on Gabapentin (6) Hypothyroidism: Continue levothyroxine (7) Depression: Continue Prozac (8) Psoriasis: continue steroid cream BID (9) DVT prophylaxis: Lovenox SQ Code Status DNR/DNI [facility] Admission and Anticipated Discharge Date Admission Date: May 22, 2020 Subjective Patient is seen and examined at bedside Transient hypoglycemic this morning but later improved No new complaints Saturating 94% on 1 liter of supplemental oxygen Denies cough, chest pain, abd pain, dizziness [facility] guards at bedside Review of Systems Review of Systems: All systems reviewed & are unremarkable except as noted in HPI & below Physical Exam Physical Exam: Physical Exam: Vitals signs as noted above General Appearance: Ill-appearing, no apparent distress Head: normocephalic, Atraumatic Eyes: normal inspection, EOMI Neck: supple, Trachea midline Respiratory/Chest: Decreased breath sounds, CTA Cardiovascular: S1, S2, No murmur Abdomen/GI:Soft, Non tender, Bowel sounds present Extremities/Musculoskelatal:normal inspection, no edema Neurologic/Psych:AAOX3, grossly no focal neurological deficits Skin: normal color, warm Results & Data Results & Data ([facility]) Vital Signs (Past 12 Hours) Vital Signs Temp Pulse Pulse Resp BP BP Pulse Ox 07/23/20 11:34 36.8 C 76 18 146/82 H 94 07/23/20 11:00 78 07/23/20 07:52 36.9 C 75 18 155/83 H 90 07/23/20 03:30 36.6 C 18 142/68 H 91 07/23/20 01:16 72 Laboratory Results Short CBC 07/23/20 Range/Units 06:43 WBC 10.47 (4.8-10.8) K/uL Hgb 9.5 L (14.0-18.0) g/dL Hct 29.8 L (42-52) % Plt Count 497 H (130-400) K/uL BMP 07/23/20 06:43 Sodium 142 Potassium 3.8 D Chloride 112 H Carbon Dioxide 24 BUN 14 Creatinine 2.10 H D Glucose 101 H Calcium 8.5 (1) CKD (chronic kidney disease), stage III Chronic kidney disease stage 3 subtype: stage 3b (GFR 30-44) Qualified Code(s): N18.32 - Chronic kidney disease, stage 3b
[2020-07-23 14:24] VITALS: BP 142/68
[2020-07-23 15:37] VITALS: PULSE 79
--- NOTE | 2020-07-23 16:36 | Discharge Summary ---
Date of Service July 23, 2020 Admission HPI Per Admitting Provider CHIEF COMPLAINT: Fever. HISTORY OF PRESENT ILLNESS: This is a 55-year-old male with past medical history significant for type 1 diabetes, hyperlipidemia, eczema, depression, anemia, hypothyroidism, neuropathy, history of pneumonia, who was recently in the hospital because of DKA, and also non-ST elevated myocardial infarction secondary to demand ischemia and XOCHITL, which got resolved, discharged on Lantus and Novolin, who comes because of fever. The patient has a fever yesterday and today in the correction facility. In correction facility his pulse ox was checked and he was hypoxic in 80s, so he was sent here. Currently the patient is resting comfortably and hemodynamically stable, saturating fine on room air. He is feeling he has some belching, but denies any shortness of breath or cough. No chest pain. No headache, no dizziness, no blurred vision, no earache, no runny nose, no sore throat, no dysphagia. Appetite is okay. Denies any loss of sense of smell or taste. No nausea, no abdominal pain. Normal bowel and bladder movements. No rash seen. Imaging studies showed left lower lobe pneumonia. As per patient, he was tested for COVID three days ago in jail and was negative, but we again did the [employer] in the ER, it came back positive for COVID-19 PCR. His creatinine is 2.4, baseline was 1 when he was here.His hemoglobin is 8.2, which was around 8-9 last admission. The patient denies any blood in the stools or black stools. Currently resting comfortably. Admission Exam Per Admitting Provider PHYSICAL EXAMINATION: GENERAL: The patient is of moderate build, not in acute distress. VITAL SIGNS: Temperature 36.8, pulse 83, respiratory rate 18, blood pressure 141/63, oxygen 94% on room air. HEENT: Pupils equal, round, and reactive to light. Oral mucosa moist. NECK: No JVD, no neck masses seen. CARDIOVASCULAR: S1, S2 heard. Regular rate and rhythm, no murmur, no gallop. RESPIRATORY SYSTEM: Normal AP diameter. No accessory muscle use. No wheezing, no crackles. ABDOMEN: Soft, bowel sounds present, nontender. No distention. CENTRAL NERVOUS SYSTEM: Cranial nerves II-XII grossly intact. Nonfocal. EXTREMITIES: No edema, no erythema seen. Principal Diagnosis Acute respiratory failure with hypoxia Multifocal COVID-19 pneumonia Bilateral pleural effusion Left upper lobe lung abscess Chronic Nausea Acute kidney injury on CKD III Discharge Data Allergies Allergy/AdvReac Type Severity Reaction Status Date / Time No Known Drug Allergies Allergy Unknown NONE Verified 05/22/20 20:27 Consultations 05/22/20 21:48 ED Decision to Admit Stat 05/23/20 00:46 Consult Case Management - Discharge Planning Routine 05/25/20 08:44 Consult Nephrology Routine 05/31/20 07:27 Consult Pulmonology Routine 06/01/20 11:01 Consult Irrigator Gravity Flow Routine 06/02/20 00:30 Consult Health Information Management Routine 06/24/20 19:51 Consult Gastroenterology Routine 06/24/20 19:52 Consult Infectious Diseases Routine Procedures Performed Venous Doppler: No evidence of deep venous thrombus within the bilateral lower extremities. Chest CT: 1. Cardiomegaly and emphysema with evidence of pulmonary artery hypertension. 2. Extensive multifocal airspace consolidation as above. 3. There is evidence of necrotizing/cavitary pneumonia in the left upper lobe. 4. Small pleural effusions. 5. Fluid fills the esophagus to the level of the genaro. Note that this may place the patient at risk for aspiration. 5. Mediastinal lymphadenopathy, likely reactive. CTA: 1. No evidence of acute pulmonary embolism 2. Increasing bilateral pleural effusions 3. Progressive extensive multifocal pulmonary airspace opacities. 4. Progressive cavitation within the left upper lobe with a 4 cm air-fluid collection. This is consistent with a necrotizing cavitary pneumonia/abscess 5. Mild mediastinal lymphadenopathy Ordered Studies 05/22/20 21:42 US venous doppler LE BI Urgent 05/31/20 18:51 US venous doppler LE BI Routine 06/23/20 13:12 CT chest wo con Routine 07/01/20 09:00 CT angio chest PE protocol Routine Hospital Course (1) Acute respiratory failure with hypoxia: Acute respiratory distress syndrome with severe hypoxic respiratory failure on admission secondary to COVID-19 infection Received conv plasma on 05/27. Received Steroids x 3 weeks and tapered off. Not a candidate for remdesivir due to renal failure -CT Chest revealed multifocal airspace consolidation with necrotizing/cavitary pneumonia in the ERASMO, and fluid in the distal esophagus. -Repeat CT scan showed B/L extensive necrotizing pneumonia,bilateral pleural effusion and left upper lobe lung abscess. CT scan was negative for any acute pulmonary embolism -HIV screen is negative -Discussed with ID -Appreciate pulmonology, ID input -Received multiple courses of antibiotics including Rocephin, doxycycline, cefepime, Unasyn -Completed zosyn--4 week course starting June 23 -Repeat chest x-ray 07/13/20 showed moderately improved aeration of the lungs. Small pleural effusions is mildly decreased. Persistent 5.8 cm left upper lobe opacity. -Very slowly improving -Saturating well on 1 L of supplemental oxygen -Needs follow up with ID/Pulm upon discharge -Continue supplemental oxygen and wean off as able as outpatient Intermittent nausea--Chronic as per Patient's Outpatient Provider May have diabetic gastroparesis and or GERD. Continue anti-emetics. PPI Trial Video Swallow, Gastric Emptying Study--Patient refused Consider GI re-eval as outpatient Tried Regaln in the past without much help Bilateral pleural effusion Received IV lasix May not tolerate any procedures Appreciate Nephrology/Pulm Input Monitor renal function Left upper lobe lung abscess As above Received prolonged intravenous antibiotic course Needs follow up with ID/Pulm upon discharge (2) Pneumonia due to COVID-19 virus: Completed multiple antibiotic course while admitted. (Doxycycline 100mg BID 5 dys, stopped for 2, resumed 05/30 for 7 full days, Ceftriaxone x 14 days, Cefepime for an additional 3 days after the ceftriaxone completed, and Flagyl for 8 days. Also received Unasyn and currently on Zosyn from 07/06) Completed IV Zosyn course for 28 days Diarrhea Stool for C diff: Gene positive, Toxin negative Hold stool softeners Received empiric vancomycin- DCed due to nausea Monitor (3) Diabetes mellitus type I: Glycemic pharmacist managing Continue Insulin therapy Monitor BGs Blood glucose levels very variable. Discontinue Lantus for now Advised to follow-up with his physician for further insulin adjustment (4) CKD (chronic kidney disease), stage III: XOCHITL on CKD III ? Baseline Cr: 2.3 Lisinopril discontinued Cr:2.1 today Appreciate nephrology input Monitor renal function Avoid nephrotoxic agents as able (5) Diabetic neuropathy: Was on Gabapentin (6) Hypothyroidism: Continue levothyroxine (7) Depression: Continue Prozac (8) Psoriasis: continue steroid cream BID (9) DVT prophylaxis: Lovenox SQ Code Status DNR/DNI [facility]position Back to [facility] Today Total Time Total Time Spent Total Time Spent (In Minutes): 55 minutes Total Time Includes: Examination of the Patient, Discharge Planning, Medication Reconciliation, Communication With Other Providers and Other Discharge Plan Discharge Items [facility] Disposition: [facility] Reason For Visit: FEVER Discharge Diagnosis: Acute respiratory failure with hypoxia Multifocal COVID-19 pneumonia Bilateral pleural effusion Left upper lobe lung abscess Chronic Nausea Acute kidney injury on CKD III Activity: Per Instructions section Exercise/Sports: Gradually increase as tolerated Non-emergency contact: Primary Care Provider, Specialist and Profile Mill Operator Tape Control Call non-emergency contact if: you have any medication questions, your symptoms worsen, your pain is not controlled, your pain is worsening, your pain is unusual for you, your pain is concerning for you and you have a fever Follow-up/Referrals: Deniz ESQUIVEL [Primary Care Provider] - Diet: Carb Consistent or DM2 Diet Texture: Easy to Chew Addtl Attending Provider Instructions: Follow-up with your primary care physician at [facility] in 1 week Follow-up with your letterset press set up operator in 2 weeks with repeat chest X ray/CT scan as advised Follow up with your infectious disease for further instructions on antibiotics. Follow-up with your pr manager in 2 weeks to reassess your renal function as outpatient. Continue oxygen via nasal cannula as needed to maintain oxygen saturations greater than 90% Your blood glucose levels are very variable during your hospital stay. [facility]. Follow-up with your physician for further recommendations. Seek immediate medical attention if your symptoms reoccur or worsen Home Isolation COVID-19 Instructions The following information about Home Isolation is from the CDC Website: https://www.cdc.gov/coronavirus/2019-ncov/hcp/gmbircaq-ajxlybj-nyyydu.html Stay home except to get medical care People who are mildly ill with COVID-19 are able to isolate at home during their illness. You should restrict activities outside your home, except for getting medical care. Do not go to work, school, or public areas. Avoid using public transportation, ride-sharing, or taxis. Separate yourself from other people and animals in your home People: As much as possible, you should stay in a specific room and away from other people in your home. Also, you should use a separate bathroom, if available. Animals: You should restrict contact with pets and other animals while you are sick with COVID-19, just like you would around other people. Although there have not been reports of pets or other animals becoming sick with COVID-19, it is still recommended that people sick with COVID-19 limit contact with animals until more information is known about the virus. When possible, have another member of your household care for your animals while you are sick. If you are sick with COVID-19, avoid contact with your pet, including petting, snuggling, being kissed or licked, and sharing food. If you must care for your pet or be around animals while you are sick, wash your hands before and after you interact with pets and wear a face mask. Call ahead before visiting your doctor If you have a medical appointment, call the healthcare provider and tell them that you have or may have COVID-19. This will help the healthcare providers office take steps to keep other people from getting infected or exposed. Wear a face mask You should wear a face mask when you are around other people (e.g., sharing a room or vehicle) or pets and before you enter a healthcare providers office. If you are not able to wear a face mask (for example, because it causes trouble breathing), then people who live with you should not stay in the same room with you, or they should wear a face mask if they enter your room. Cover your coughs and sneezes Cover your mouth and nose with a tissue when you cough or sneeze. Throw used tissues in a lined trash can. Immediately wash your hands with soap and water for at least 20 seconds or, if soap and water are not available, clean your hands with an alcohol-based hand dishwasher busser that contains at least 60% alcohol. Clean your hands often Wash your hands often with soap and water for at least 20 seconds, especially after blowing your nose, coughing, or sneezing; going to the bathroom; and before eating or preparing food. If soap and water are not readily available, use an alcohol-based hand dishwasher busser with at least 60% alcohol, covering all surfaces of your hands and rubbing them together until they feel dry. Soap and water are the best option if hands are visibly dirty. Avoid touching your eyes, nose, and mouth with unwashed hands. Avoid sharing personal household items You should not share dishes, drinking glasses, cups, eating utensils, towels, or bedding with other people or pets in your home. After using these items, they should be washed thoroughly with soap and water. Clean all high-touch surfaces everyday High touch surfaces include counters, tabletops, doorknobs, bathroom fixtures, toilets, phones, keyboards, tablets, and bedside tables. Also, clean any surfaces that may have blood, stool, or body fluids on them. Use a household cleaning spray or wipe, according to the label instructions. Labels contain instructions for safe and effective use of the cleaning product including precautions you should take when applying the product, such as wearing gloves and making sure you have good ventilation during use of the product. Monitor your symptoms Seek prompt medical attention if your illness is worsening (e.g., difficulty breathing).Beforeseeking care, call your healthcare provider and tell them that you have, or are being evaluated for, COVID-19. Put on a face mask before you enter the facility. These steps will help the healthcare providers office to keep other people in the office or waiting room from getting infected or exposed. Ask your healthcare provider to call the local or state health department. Persons who are placed under active monitoring or facilitated self- monitoring should follow instructions provided by their local health department or occupational health professionals, as appropriate. When working with your local health department check their available hours. If you have a medical emergency and need to call 911, notify the dispatch personnel that you have, or are being evaluated for COVID-19. If possible, put on a face mask before emergency medical services arrive. Discontinuing home isolation Patients with confirmed COVID-19 should remain under home isolation precautions until the risk of secondary transmission to others is thought to be low. The decision to discontinue home isolation precautions should be made on a c ase-by-case basis, in consultation with healthcare providers and state and local health departments. Coronavirus disease 2019 (COVID-19) is a virus that causes a respiratory illness . It is caused by a coronavirus called 2019 novel coronavirus (2019-nCoV). There are many types of coronavirus. Coronaviruses are a very common cause of bronchitis. They may sometimes cause lung infection(pneumonia). Symptoms can range from mild to severe respiratory illness. These viruses are also foundin some animals. COVID-19 was first found in people in [facility], in late 2019. In 2020, several cases of COVID-19 have been confirmed in the [place] Public health officials are working to find the source. How the virus spreads is not yet fully known. It may be spread through droplets of fluid that a person coughs or sneezes into the air. It may be spread if you touch a surface with virus on it, such as a handle or object, and then touch your mouth. What are the symptoms of COVID-19? Some people have no symptoms or mild symptoms. Symptoms may appear 2 to 14 days after contact with the virus. Symptoms can include: Fever Coughing Trouble breathing What are possible complications from COVID-19? In many cases, this virus can cause infection (pneumonia) in both lungs. In some cases, this can cause . How is COVID-19 diagnosed? Your healthcare provider will ask about your symptoms. He or she will also ask about your recent travel and contact with sick people. Testing for the virus is only done through the CDC. If yourhealthcare provider thinks you may have COVID- 19, he or she will work with your local health department and the CDC on testing. Follow all instructions from your healthcare provider. COVID-19 is diagnosed by: Nasal and throat swab. A cotton-tipped swab is wiped inside your nose or throat. This is done to check for viruses in your nasal mucus. Sputum culture. A small sample of mucus coughed from your lungs (sputum) is collected if you have a cough. It is checked for the virus. How is COVID-19 treated? There is currently no medicine to treat the virus. Treatment is done to help your body while it fights the virus. This is known as supportive care. Supportive care may include: Pain medicine. These include acetaminophen and ibuprofen. They are used to help ease pain and reduce fever. Bed rest. This helps your body fight the illness. For severe illness, you may need to stay in the hospital. Care during severe illness may include: IV (intravenous) fluids.These are given through a vein to help keep your body hydrated. Oxygen. Supplemental oxygen or ventilation with a breathing machine (ventilator) may be given. This is done to keep enough oxygen in your body. Are you at risk for COVID-19? If youve been to a place where people have been sick with this virus, you are at risk for infection. You are at risk if you: Recently traveled to an affected area Had contact with a sick person who recently traveled to this area Had contact with a person who was diagnosed with COVID-19 How can COVID-19 be prevented? There is no vaccine yet. The best prevention is to not have contact with the virus. The CDC advises that people should not travel to areas where there are COVID-19 outbreaks right now for any reason that is not urgent. To help prevent spreading the infection, wash your hands often, or use an alcohol-basedhand dishwasher busser. If you are in an area with COVID-19: Wash your hands often. Or use an alcohol-based hand dishwasher busser often. Only touch your eyes, nose, or mouth with clean hands. Dont have contact with people who are sick. Follow local instructions about being in public. For example, you may be told to not use public transport for a period of time. Stay away from markets that have live or animals. Wash your hands after touching any animals. Don't touch animals that may be sick. Dont share eating or drinking tools with sick people. Dont kiss someone who is sick. Clean surfaces often with disinfectant. If you were in an area with COVID-19 in the last 14 days: Call your healthcare provider. He or she can talk with local health staff to see what action may be needed. Follow all instructions from your provider. Take your temperature every morning and evening for at least 14 days. This is to check for fever. Keep a record of the readings. Keep watch for symptoms of the virus. Tell your provider right away if you have symptoms. If you were in an area with COVID-19 and have a fever or other symptoms: Dont panic. Keep in mind that other illnesses can cause similar symptoms. Stay away from work, school, and public places. Limit physical contact with family members. Don't kiss anyone or share eating or drinking utensils. Clean surfaces you touch with disinfectant. This is to help prevent the virus from spreading. Call your healthcare provider. Explain that you have been exposed to COVID-19 and have symptoms. Do this before going to any hospital. Wait for instructions. Keep in mind that healthcare staff may wear protective equipment such as masks, gowns, gloves, and eye protection. You may be put in a separate room. This is to prevent the possible virus from spreading. Tell the healthcare staff about recent travel. This includes local travel on public transport. Staff may need to find other people you have been in contact with. Follow all instructions the healthcare staff give you. If you have been diagnosed with COVID-19 Follow all instructions from your healthcare provider. Dont leave your home, except to get medical care. Call your healthcare providers office before going. They can prepare and give you instructions. This will help prevent the virus from spreading. Dont go to work, school, or public areas. Dont use public transport or taxis. Stay away from other people in your home. Have them wear face masks around you. Dont share household items or food. Wear a face mask if you can. This includes at home or in a medical facility. Cover your face with a tissue when you cough or sneeze. Throw the tissue away. Wash your hands. Wash your hands often. Caregivers should: Follow all instructions from healthcare staff. Wear a face mask and protective clothing as advised. Wash hands often. Keep track of the sick persons symptoms. Clean surfaces, fabrics, and laundry thoroughly. Keep other people away from the sick person. When to call your healthcare provider Call your healthcare provider: If youve recently traveled and have symptoms If you have been diagnosed with COVID-19 and your symptoms are worse To learn more To find out more about COVID-19, visit the CDC website at www.cdc.gov/coronavirus/2019-ncov/index.html. 9202-[address] [employer]. [address] [place] [address]. All rights reserved. This information is not intended as a substitute for professional medical care. Always follow your healthcare professional's instructions. This information has been adapted from [employer] Pending Studies at Discharge: No Stand-Alone Forms: My [facility] [address] Skilled Items Patient informed of condition?: Yes Discharge Level of Care: Other Communicable Disease: No Discharge Prognosis: Improving Lines: None Urinary Catheter: No Medications and DC Order Prescriptions: New lansoprazole [Prevacid SoluTab] 30 mg Tablet,Disintegrat, Delay Rel 30 mg PO BID Qty: 60 RF: 0 Floranex 100 million cell Granules In Packet 1 g PO TIDM Qty: 90 RF: 0 Continued atorvastatin 80 mg Tablet 80 mg PO HS RF: 0 aspirin [Aspir-81] 81 mg Tablet,Delayed Release (Dr/Ec) 81 mg PO DAILY RF: 0 vitamin E 1,000 unit Capsule 1,000 unit PO DAILY RF: 0 levothyroxine 137 mcg Tablet 137 mcg PO DAILY RF: 0 alendronate [Fosamax] 70 mg Tablet 70 mg PO TU RF: 0 Novolin R Regular U-100 Insuln 100 unit/mL Solution 1 sliding scale dose SUBCUT USEASDIRECTD RF: 0 ondansetron 4 mg Tablet,Disintegrating 4 mg PO Q6H PRN (Reason: Nausea) RF: 0 fluoxetine [Prozac] 20 mg Capsule 40 mg PO DAILY RF: 0 levalbuterol tartrate [Xopenex HFA] 45 mcg/actuation Hfa Aerosol Inhaler 2 inh INHALATION QID RF: 0 Dialyvite [id number] gu-cl-dcb-mg Tablet 1 tab PO DAILY RF: 0 Discontinued Lantus U-100 Insulin 100 unit/mL Solution 8 unit SUBCUT HS RF: 0 gabapentin 600 mg Tablet 600 mg PO QID RF: 0 Lantus U-100 Insulin 100 unit/mL Solution 15 unit SUBCUT QAM RF: 0 fludrocortisone 0.1 mg Tablet 0.3 mg PO DAILY RF: 0 lisinopril 2.5 mg Tablet 2.5 mg PO DAILY RF: 0 Discharge Orders: Discharge Order (Routine); Ordered 07/23/20 Ordered By: Nitish Whatley/Other Patient Handouts: Managing Diabetes: The A1C Test Admission Data Admit Date/Time: 05/22/20 23:26 Attending Provider: Nitish Carlos Admit Provider: Esequiel Wayne Primary Care Provider: Deniz ESQUIVEL Other Providers: Nichol Robles I. ; Filemon Martínez ; Kenya Cagle ; Esequiel Wayne ; Chino Patel Muqueet ; Kei Bartlett Emily T. ; Eduin Campos ; Dominic Robles ; Yao Harper I. ; Caden Ellis II ; Dulce Dumont ; Miguel Cary ; Nitish Carlos Other Interventions: Discharge Summary Assessment (RN) Last Done: 07/23/20 14:16
== END 2020-07-23 16:03 | DRG 177 ==
LOC: ED 17:36 → 2S 23:26 → SUATTDRO 23:26 → 2S 23:43 → 1E 06-01 15:57 → 2E 06-04 00:36 → 2S 06-04 01:32 → 2E 06-05 16:12 → 2W 06-19 17:53

== ENCOUNTER 2022-03-05 10:05 | Observation (INO) ==
[2022-03-05] MEDS ORDERED: SODIUM CHLORIDE 0.9% 250 ML IV PRN (10:42)
[2022-03-05 10:45] LABS: Basophils # (auto) 0.12 K/uL (0-0.2); Basophils % (auto) 1.7 %; Eosinophils # (auto) 0.19 K/uL (0-0.50); Eosinophils % (auto) 2.6 %; Hematocrit (blood only) 24.7 % (40.1-51.0); Hemoglobin 7.9 g/dl (14.0-18.0); Immature Granulocytes # (auto) 0.02 K/uL (0.00-0.02); Immature Granulocytes % (auto) 0.3 %; Lymphocytes # (auto) 1.65 K/uL (1.2-3.4); Lymphocytes % (auto) 22.9 %; Mean Corpuscular Hemoglobin 28.9 pg (25.0-34.0); Mean Corpuscular Volume 90.5 fL (80.0-100.0); Monocytes # (auto) 0.57 K/uL (0.24-0.82); Monocytes % (auto) 7.9 %; Neutrophils # (auto) 4.67 K/uL (1.4-6.5); Neutrophils % (auto) 64.6 %; Platelet Count 386 K/uL (130-400); RDW Coefficient of Variation 14.5 % (11.5-14.5); RDW Standard Deviation 47.4 fL (36.4-46.3); Red Blood Count 2.73 M/uL (4.63-6.08); White Blood Count 7.22 K/ul (4.8-10.8)
[2022-03-05 11:01] LABS: Echinocytes 2+
[2022-03-05 11:12] LABS: Albumin Globulin Ratio 1.3 (0.9-2); Albumin Level 3.5 gm/dl (3.4-5.0); BUN Creatinine Ratio 9.3 (10-20); Bilirubin,Total 0.4 mg/dl (0.2-1.0); Calcium 8.4 mg/dl (8.5-10.1); Creatinine Clr Calc Pharmacy 29.4 ml/min; Est GFR (African American) 25.3 ml/min; Est GFR (Non-African American) 21.8 ml/min; Globulin 2.7 gm/dl (2.5-4.0); Potassium 5.3 mmol/L (3.5-5.1); Total Protein 6.2 gm/dl (6.0-8.3)
[2022-03-05] MEDS ORDERED: NovoLIN-R INSULIN PER UNIT CHARGE IV STA (11:13)
--- NOTE | 2022-03-05 11:13 | Emergency Department Note ---
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 The patient has multiple medical issues. A work-up was initiated. He did respond to fluids. ECG was normal sinus rhythm. CBC showed a moderate anemia but not significantly different than prior. The patient has an elevated creatinine which is about baseline for him. His potassium was mildly elevated at 5.3. Patient was very hyperglycemic. He received additional hydration and IV insulin here. Chest x-ray was unremarkable. Given the hypotension and tachycardia further management in the hospital was deemed appropriate consultation was made with the [facility]. Patient was evaluated in the ER for further management. Triage Nursing notes reviewed and agree them. Vital Signs: reviewed and remarkable for prehospital hypotension and tachycardia Differential diagnosis: Infection, dehydration, metabolic abnormality, hypo/hyperglycemia, electrolyte disturbance, anemia, hypoxia, cardiac sources, intracerebral event, toxicologic, neurologic, as well as other pathologies. Diagnostics interpreted by me: EC Lead ECG performed and revealed Normal sinus rhythm at 86, normal [place], QRS normal. No elevation or depression. No PACs or PVCs Cardiac Monitoring: Cardiac monitoring ordered by me: The patient was placed on continuous cardiac monitoring and observed. It revealed a normal sinus rhythm at 85 beats per minute without ectopy or evidence of dysrhythmia. Imaging studies: Chest x-ray. Findings: A chest x-ray was performed and revealed no pneumothorax, effusion, infiltrate, pulmonary edema, free air under the diaphragm, or wide mediastinum. Impression: No acute disease. HPI: The patient is a 57year old male prisoner who presents to the Emergency Room with complaints of hypotension. This started this morning and is noted to be found on morning rounds. Patient states he has had some dizziness over the last several days. Patient is a brittle diabetic and resides at the [facility] for the youth liaison officer escorting him. Patient reportedly had a blood pressure of 70/40 and a heart rate of 120. He did receive a fluid bolus of 500 mL of normal saline. His heart rate and blood pressure did improve. Patient states he has been eating and drinking normally. No trauma reported. Pt denies LOC, headache, fevers, chills, diaphoresis, visual changes, neck pain, chest pain, breathing difficulties, nausea, vomiting, abdominal pain, back pain, melena, hematochezia, urinary symptoms, numbness, weakness, lymphadenopathy, rash, or other complaints. ROS: See above HPI for pertinent positives & negatives. A total of 10 systems reviewed and were otherwise negative. PAST MEDICAL HISTORY:See Below , anemia, chronic renal insufficiency PAST SURGICAL HISTORY:See Below, FAMILY HISTORY:See Below SOCIAL HISTORY:See Below, incarcerated HOME MEDICATIONS:See Below ALLERGIES:See Below VITALS:See Below PHYSICAL EXAMINATION: GENERAL: Awake, alert, well-appearing, in no distress HENT: Normocephalic, atraumatic. Oropharynx unremarkable. EYES: Pale conjunctiva. Sclera non-icteric. NECK: Inspection normal. Non-tender. Supple. No nuchal rigidity. FROM. No masses. RESPIRATORY: Clear to auscultation. No wheezes. No rales. Normal respiratory effort. CARDIAC: Normal rate. Normal rhythm. No murmurs. No rubs. Extremities warm and well perfused. Pulses equal. No JVD. GI: Soft, non-distended. No tenderness to palpation. No rebound or guarding. No masses. RECTAL: Deferred. MUSCULOSKELETAL: Atraumatic. Chest examination reveals no tenderness. The back is symmetrical on inspection without obvious abnormality. There is no CVA tenderness to palpation. No joint edema. LOWER EXTREMITIES: Calves are equal size bilaterally and non-tender. No edema. No discoloration. NEURO: Normal sensorium. No sensory or motor deficits noted. SKIN: No rash or jaundice noted. Celestino Garcia MD Past Med/Surg History Medical History (Updated 03/05/22 @ 14:27 by Tawnya Harper PA-C) CKD (chronic kidney disease) Diabetes mellitus type 1 Hypothyroidism Non-STEMI (non-ST elevated myocardial infarction) NSTEMI (non-ST elevated myocardial infarction) Orthostatic hypotension on chronic fludrocortisone Proteinuria Psoriasis Surgical History (Updated 03/05/22 @ 14:26 by Tawnya Harper PA-C) No pertinent past surgical history Family History Other Heart disease Social History Smoking Status: Former smoker Tobacco Type: Cigarettes Cigarettes Per Day: 1 ppd; Smoking End Date: 2018; Hx Alcohol Use: No Hx Substance Use: No Preferred Language: [place] Communication Ability: Effective Visual Impairment: No Limitations [employer] Required: No Beliefs That Will Affect Care: None Current Living Situation: Other Current Living Situation Comment: [facility] Other Information That Helps Us Care for You: No Feels Safe at Home: Yes Safety Concerns: Feels Safe At This Time Assistive Devices: Wheelchair Allergies Allergies Allergy/AdvReac Type Severity Reaction Status Date / Time sodium chloride AdvReac Unknown CONTRAINDIC Verified 11/23/21 07:55 [From [place] Nasal] ATED. OC SPRAY AdvReac CONTRINDICA Uncoded 11/23/21 07:55 ATION Home Meds Home Medications Medication Instructions Recorded Confirmed Lactobacillus acidophilus 1 tab PO TIDM 03/05/22 03/05/22 (Acidophilus chewable tablet) acetaminophen 500 mg tablet 500 mg PO TID 03/05/22 03/05/22 alendronate 70 mg tablet 70 mg PO WK 03/05/22 03/05/22 aspirin 81 mg tablet,delayed 81 mg PO QAM 03/05/22 03/05/22 release atorvastatin 80 mg tablet 80 mg PO HS 03/05/22 03/05/22 ergocalciferol (vitamin D2) 50 mcg 50 mcg PO QAM 03/05/22 03/05/22 (2,000 unit) capsule ferrous sulfate 324 mg (65 mg 324 mg PO HS 03/05/22 03/05/22 iron) tablet,delayed release fluoxetine 20 mg capsule 40 mg PO QAM 03/05/22 03/05/22 hydroxyzine pamoate 50 mg capsule 50 mg PO HS 03/05/22 03/05/22 insulin glargine 100 unit/mL 19 unit subcut QAM 03/05/22 03/05/22 subcutaneous solution insulin regular human 100 unit/mL 0 sliding scale dose subcut DAILY 03/05/22 03/05/22 injection solution (Novolin R PRN . NEEDED Regular U-100 Insulin) levothyroxine 150 mcg tablet 150 mcg PO DAILYBB 03/05/22 03/05/22 lisinopril 10 mg tablet 10 mg PO BID 03/05/22 03/05/22 loperamide 2 mg tablet (Imodium 2 mg PO BID PRN Diarrhea 03/05/22 03/05/22 A-D) metoclopramide HCl 10 mg tablet 10 mg PO ACHS 03/05/22 03/05/22 ondansetron 8 mg disintegrating 8 mg PO Q8H 03/05/22 03/05/22 tablet pantoprazole 40 mg tablet,delayed 40 mg PO BID 03/05/22 03/05/22 release patiromer calcium sorbitex 25.2 25.2 g PO DAILY 03/05/22 03/05/22 gram oral powder packet (Veltassa) tamsulosin 0.4 mg capsule 0.4 mg PO HS 03/05/22 03/05/22 triamcinolone acetonide 0.1 % 1 applic topical BID 03/05/22 03/05/22 topical cream vitamin B complex with C-folic 1 tab PO DAILY 03/05/22 03/05/22 acid 0.8 mg-zinc citrate 50 mg tablet (Dialyvite 800 with Zinc 50) Results & Data (ED) Vital Signs Vital Signs - 24 hr 03/05/22 10:09 03/05/22 10:20 03/05/22 11:06 Temperature 36.4 C L Temperature Source Oral Pulse Rate 84 Pulse Rate [Apical] 86 Respiratory Rate 15 20 Respiratory Effort / Characteristics Non-Labored Non-Labored Spontaneous Respiratory Depth Normal Normal Respiratory Pattern Regular Regular Blood Pressure 119/67 Blood Pressure [Right Arm] 149/79 H Blood Pressure Mean 84 Blood Pressure Mean [Right Arm] 102 Blood Pressure Position Semi-fowlers Blood Pressure Position [Right Arm] Sitting Pulse Oximetry 100 98 100 Oxygen Delivery Method Room Air Room Air Room Air Sepsis Recent Fever Within 48 Hours No Sepsis New/Unexplained Change in Mental Status N/A Sepsis Action Taken by Nursing No Action Required 03/05/22 11:57 03/05/22 13:00 03/05/22 13:33 Temperature Temperature Source Pulse Rate Pulse Rate [Apical] 84 85 85 Respiratory Rate 20 20 20 Respiratory Effort / Characteristics Non-Labored Spontaneous Non-Labored Spontaneous Non-Labored Spontaneous Respiratory Depth Normal Normal Normal Respiratory Pattern Regular Regular Regular Blood Pressure Blood Pressure [Right Arm] 139/75 137/98 137/79 Blood Pressure Mean Blood Pressure Mean [Right Arm] 96 111 98 Blood Pressure Position Blood Pressure Position [Right Arm] Sitting Sitting Sitting Pulse Oximetry 99 98 100 Oxygen Delivery Method Room Air Room Air Room Air Sepsis Recent Fever Within 48 Hours Sepsis New/Unexplained Change in Mental Status Sepsis Action Taken by Nursing Laboratory Data Result diagrams: 03/06/22 06:15 03/06/22 06:15 Lab Results 03/05/22 03/05/22 03/05/22 Range/Units 10:28 10:28 10:28 WBC 7.22 (4.8-10.8) K/ul RBC 2.73 L (4.63-6.08) M/uL Hgb 7.9 L (14.0-18.0) g/dl Hct 24.7 L (40.1-51.0) % MCV 90.5 (80.0-100.0) fL MCH 28.9 (25.0-34.0) pg MCHC 32.0 (32.0-36.0) g/dL RDW Std Deviation 47.4 H (36.4-46.3) fL RDW Coeff of Minnie 14.5 (11.5-14.5) % Plt Count 386 (130-400) K/uL MPV 9.0 L (9.4-12.4) fL Immature Gran % (Auto) 0.3 % Neut % (Auto) 64.6 % Lymph % (Auto) 22.9 % [place] % (Auto) 7.9 % Eos % (Auto) 2.6 % Baso % (Auto) 1.7 % Neut # (Auto) 4.67 (1.4-6.5) K/uL Lymph # (Auto) 1.65 (1.2-3.4) K/uL [place] # (Auto) 0.57 (0.24-0.82) K/uL Eos # (Auto) 0.19 (0-0.50) K/uL Baso # (Auto) 0.12 (0-0.2) K/uL Immature Gran # (Auto) 0.02 (0.00-0.02) K/uL Echinocytes 2+ Sodium 130 L (136-145) mmol/L Potassium 5.3 H (3.5-5.1) mmol/L Chloride 104 (98-107) mmol/L Carbon Dioxide 18 L (21-32) mmol/L Anion Gap 8 (3-11) BUN 28 H (6-23) mg/dl Creatinine 3.01 H (0.6-1.4) mg/dl Est Cr Clr Drug Dosing 29.4 ml/min Est GFR ( Amer) 25.3 ml/min Est GFR (Non-Af Amer) 21.8 ml/min BUN/Creatinine Ratio 9.3 L (10-20) Glucose 371 H* (70-99(Fasting)) mg/dl Calcium 8.4 L (8.5-10.1) mg/dl Total Bilirubin 0.4 (0.2-1.0) mg/dl AST 29 (13-39) U/L ALT 46 (7-52) U/L Alkaline Phosphatase 90 (34-104) U/L Troponin I High Sens (0-20) pg/ml Total Protein 6.2 (6.0-8.3) gm/dl Albumin 3.5 (3.4-5.0) gm/dl Globulin 2.7 (2.5-4.0) gm/dl Albumin/Globulin Ratio 1.3 (0.9-2) Lipase 24 (11-82) U/L SARS-CoV-2, RNA, NAAT (NEGATIVE) Blood Type A Positive Antibody Screen NEGATIVE Crossmatch See Detail 03/05/22 03/05/22 Range/Units 10:28 13:00 WBC (4.8-10.8) K/ul RBC (4.63-6.08) M/uL Hgb (14.0-18.0) g/dl Hct (40.1-51.0) % MCV (80.0-100.0) fL MCH (25.0-34.0) pg MCHC (32.0-36.0) g/dL RDW Std Deviation (36.4-46.3) fL RDW Coeff of Minnie (11.5-14.5) % Plt Count (130-400) K/uL MPV (9.4-12.4) fL Immature Gran % (Auto) % Neut % (Auto) % Lymph % (Auto) % [place] % (Auto) % Eos % (Auto) % Baso % (Auto) % Neut # (Auto) (1.4-6.5) K/uL Lymph # (Auto) (1.2-3.4) K/uL [place] # (Auto) (0.24-0.82) K/uL Eos # (Auto) (0-0.50) K/uL Baso # (Auto) (0-0.2) K/uL Immature Gran # (Auto) (0.00-0.02) K/uL Echinocytes Sodium (136-145) mmol/L Potassium (3.5-5.1) mmol/L Chloride (98-107) mmol/L Carbon Dioxide (21-32) mmol/L Anion Gap (3-11) BUN (6-23) mg/dl Creatinine (0.6-1.4) mg/dl Est Cr Clr Drug Dosing ml/min Est GFR ( Amer) ml/min Est GFR (Non-Af Amer) ml/min BUN/Creatinine Ratio (10-20) Glucose (70-99(Fasting)) mg/dl Calcium (8.5-10.1) mg/dl Total Bilirubin (0.2-1.0) mg/dl AST (13-39) U/L ALT (7-52) U/L Alkaline Phosphatase (34-104) U/L Troponin I High Sens 3.5 (0-20) pg/ml Total Protein (6.0-8.3) gm/dl Albumin (3.4-5.0) gm/dl Globulin (2.5-4.0) gm/dl Albumin/Globulin Ratio (0.9-2) Lipase (11-82) U/L SARS-CoV-2, RNA, NAAT NEGATIVE (NEGATIVE) Blood Type Antibody Screen Crossmatch Administered Medications Atorvastatin Calcium (Atorvastatin 40 Mg Tab) 80 mg PO HS MARY Stop: 04/04/22 20:59 Last Admin: 03/05/22 21:31 Dose: 80 mg Documented By: CB Dextrose (Dextrose 50% 50 Ml Syringe) 25 - 50 ml IV UD PRN; Protocol PRN Reason: Hypoglycemia Protocol Stop: 04/04/22 13:34 Last Admin: 03/05/22 20:30 Dose: 50 ml Documented By: CB Ferrous Sulfate (Ferrous Sulfate 325 Mg Tab) 325 mg PO HS MARY Stop: 04/04/22 20:59 Last Admin: 03/05/22 21:31 Dose: 325 mg Documented By: CB Glucose (Glucose 40% Gel 15 Gm Tube) 15 - 30 gm PO UD PRN; Protocol PRN Reason: Hypoglycemia Protocol Stop: 04/04/22 13:34 Last Admin: 03/05/22 20:15 Dose: 30 gm Documented By: JULIETA Hydroxyzine HCl (Hydroxyzine Hcl 25 Mg Tab) 50 mg PO HS [facility] Stop: 04/04/22 20:59 Last Admin: 03/05/22 21:32 Dose: 50 mg Documented By: JULIETA Levothyroxine Sodium (Levothyroxine Sodium 150 Mcg Tablet) 150 mcg PO DAILYBB MARY Stop: 04/05/22 06:29 Last Admin: 03/06/22 06:48 Dose: 150 mcg Documented By: JULIETA Metoclopramide HCl (Metoclopramide Hcl 10 Mg Tablet) 10 mg PO ACHS [facility] Stop: 04/04/22 16:29 Last Admin: 03/05/22 21:32 Dose: 10 mg Documented By: Admin: 03/05/22 17:30 Dose: 10 mg Documented By: FRANCISCO JAVIER Ondansetron HCl (Ondansetron Inj 2 Mg/Ml 2 Ml Vial) 4 mg IV Q6H PRN PRN Reason: Nausea Stop: 04/04/22 14:59 Last Admin: 03/05/22 19:34 Dose: 4 mg Documented By: JULIETA Pantoprazole Sodium (Pantoprazole 40 Mg Tab) 40 mg PO BID [facility] Stop: 04/04/22 20:59 Last Admin: 03/05/22 21:32 Dose: 40 mg Documented By: JULIETA Tamsulosin HCl (Tamsulosin Hcl 0.4 Mg Cap) 0.4 mg PO HS [facility] Stop: 04/04/22 20:59 Last Admin: 03/05/22 21:32 Dose: 0.4 mg Documented By: JULIETA Discontinued Medications Sodium Chloride (Nss 1000ml) 1,000 mls @ 125 mls/hr IV .Q8H MARY Stop: 03/05/22 22:59 Last Infusion: 03/06/22 00:19 Dose: 0 mls/hr Documented By: Admin: 03/05/22 15:34 Dose: 125 mls/hr Documented By: FRANCISCO JAVIER Insulin Aspart (Insulin Aspart Per Unit) 0 units SC Q6 MARY Stop: 04/04/22 15:29 Last Admin: 03/05/22 17:30 Dose: 4 units Documented By: FRANCISCO JAVIER Co-signed By: MCKENZIE Admin: 03/05/22 15:41 Dose: 8 units Documented By: FRANCISCO JAVIER Co-signed By: CODY Insulin Human Regular (Novolin-R Insulin Per Unit Charge) 4 units IV NOW STA Stop: 03/05/22 11:14 Last Admin: 03/05/22 11:21 Dose: 4 units Documented By: JAMES Co-signed By: ARLENE Discharge Plan Visit Data Chief Complaint: Hypotension ED Provider: Celestino Garcia Discharge Problem: Acute hypotension, Anemia Patient Disposition: Admitted As Inpatient Discharge Instructions Interventions: ED Discharge Assessment Last Done: 03/05/22 14:35
--- NOTE | 2022-03-05 12:07 | Electrocardiogram Report ---
Test Reason : Blood Pressure : / mmHG Vent. Rate : 086 BPM Atrial Rate : 086 BPM P-R Int : 140 ms QRS Dur : 094 ms QT Int : 398 ms P-R-T Axes : 050 016 037 degrees QTc Int : 476 ms Normal sinus rhythm Normal ECG When compared with ECG of 22-NOV-2021 17:16, No significant change was found Confirmed by Gilbert Olmedo ([id number]) on 03/05/2022 12:07:08 PM Referred By: Confirmed By:Gilbert Olmedo
--- NOTE | 2022-03-05 13:31 | XRay Report ---
XR chest 1V portable CLINICAL HISTORY: hypotension TECHNIQUE: Single frontal radiograph of the chest was obtained. Comparison: Comparison is made to chest radiograph 10/11/2021 FINDINGS: No lines and tubes are seen. The cardiomediastinal silhouette is normal. The lungs are clear. No evid ence of pleural effusion or pneumothorax. IMPRESSION: No acute chest disease. ACT 112: Negative or not required by law. Electronically signed by: Sb Becker M.D. 03/05/2022 1:29 PM
[2022-03-05] MEDS ORDERED: GLUCAGON FOR INJ 1 MG VIAL SQ PRN (13:35)
[2022-03-05] MEDS ORDERED: DEXTROSE 50% 50 ML SYRINGE IV PRN (13:35)
[2022-03-05] MEDS ORDERED: GLUCOSE 10 TAB/TUBE PO PRN (13:35)
[2022-03-05] MEDS ORDERED: PHARMACY GLYCEMIC MGMT CONSULT PRN (13:35)
[2022-03-05] MEDS ORDERED: CARBOHYDRATES FOR HYPOGLYCEMIA PO PRN (13:35)
[2022-03-05] MEDS ORDERED: GLUCOSE 40% GEL 15 GM TUBE PO PRN (13:35)
--- NOTE | 2022-03-05 13:37 | History & Physical Report ---
Date of Service March 05, 2022 Assessment & Plan (1) Acute hypotension: Plan: This is a 57yo M from [facility] with a PMH of type 1 diabetes, CKD with baseline creatinine around 3, depression, anemia, hypothyroidism, neuropathy and other medical problems listed below who presents after hypotensive and tachycardic episode today. Noted to be hypotensive this AM with BP 70/40 with heart rate in the 120s that has resolved after 500 ml NSS Afebrile, no leukocytosis, hgb 7.9 (baseline 8-10), sodium 130 (corrected to 135 in setting of hyperglycemia), potassium 5.3, Cr 3.01 CXR with no acute disease ECG with normal sinus rhythm Likely due to hypovolemic state due to quick resolution with IV fluids. Appears dry on exam. Give additional 1L NSS Anemia at lower end of baseline but no reported blood in stool Repeat BMP and H&H later this afternoon Hold lisinopril for AM and reassess (2) Anemia: Plan: Anemia at lower end of baseline but no reported blood in stool. Repeat iron studies, continue supplementation (3) Diabetes mellitus type 1: Plan: Brittle diabetic. Reported BSG of 70 this AM, 370 upon arrival A1c ordered Glycemic consult placed BSG AC HS (4) CKD (chronic kidney disease): Plan: Cr at 3 (at baseline). Continue to monitor (5) Diabetic neuropathy: Plan: BLE neuropathy. Wheelchair bound. Fall precautions (6) Hypothyroidism: Plan: Continue levothyroxine (7) Depression: Plan: Continue SSRI (8) Dyslipidemia: Plan: Continue statin DVT Ppx: SCDs Code status: FULL PCP: [facility] Dispo: Obs PCU Patient seen in collaboration with Dr. Carey. Please see addendum. History of Present Illness Chief Complaint: hypotension, tachy at [facility] Primary Care Provider: [facility] This is a 57yo M from [facility] with a PMH of type 1 diabetes, CKD with baseline creatinine around 3, depression, anemia, hypothyroidism, neuropathy and other medical problems listed below who presents after hypotensive and tachycardic episode today. Patient with history of brittle diabetes who resides in [facility] at [place]. Was in normal state of health until this morning. Remembers blood sugar was 70 prior to breakfast. After eating, noted to be hypotensive with recorded BP 70/40 with heart rate in the 120s. Patient reports feeling dizzy at this time but denies any chest pain, palpitations, shortness of breath or near syncope. Received 500 mL bolus by EMS with improved blood pressure by the time of arrival to 119/67, heart rate of 84. Currently feeling back at baseline. Denies any fever, chills or recent infection. No headache, chest pain, palpitations, shortness of breath, nausea, vomiting, abdominal pain, dysuria, diarrhea constipation. Denies any black tarry stools or bright red blood in bowel movements are reportedly been regular. History of CKD with baseline creatinine around 3. Reports making urine without issue. Not on dialysis. Is wheelchair-bound due to significant diabetic peripheral neuropathy. Allergies Allergy/AdvReac Type Severity Reaction Status Date / Time sodium chloride AdvReac Unknown CONTRAINDIC Verified 11/23/21 07:55 [From [place] Nasal] ATED. OC SPRAY AdvReac CONTRINDICA Uncoded 11/23/21 07:55 [facility] Medications Medication Instructions Recorded Confirmed Type Lactobacillus acidophilus 1 tab PO TIDM 03/05/22 03/05/22 History (Acidophilus chewable tablet) acetaminophen 500 mg tablet 500 mg PO TID 03/05/22 03/05/22 History alendronate 70 mg tablet 70 mg PO WK 03/05/22 03/05/22 History aspirin 81 mg tablet,delayed 81 mg PO QAM 03/05/22 03/05/22 History release atorvastatin 80 mg tablet 80 mg PO HS 03/05/22 03/05/22 History ergocalciferol (vitamin D2) 50 mcg 50 mcg PO QAM 03/05/22 03/05/22 History (2,000 unit) capsule ferrous sulfate 324 mg (65 mg 324 mg PO HS 03/05/22 03/05/22 History iron) tablet,delayed release fluoxetine 20 mg capsule 40 mg PO QAM 03/05/22 03/05/22 History hydroxyzine pamoate 50 mg capsule 50 mg PO HS 03/05/22 03/05/22 History insulin glargine 100 unit/mL 19 unit subcut QAM 03/05/22 03/05/22 History subcutaneous solution insulin regular human 100 unit/mL 0 sliding scale dose subcut DAILY 03/05/22 03/05/22 History injection solution (Novolin R PRN . NEEDED Regular U-100 Insulin) levothyroxine 150 mcg tablet 150 mcg PO DAILYBB 03/05/22 03/05/22 History lisinopril 10 mg tablet 10 mg PO BID 03/05/22 03/05/22 History loperamide 2 mg tablet (Imodium 2 mg PO BID PRN Diarrhea 03/05/22 03/05/22 History A-D) metoclopramide HCl 10 mg tablet 10 mg PO ACHS 03/05/22 03/05/22 History ondansetron 8 mg disintegrating 8 mg PO Q8H 03/05/22 03/05/22 History tablet pantoprazole 40 mg tablet,delayed 40 mg PO BID 03/05/22 03/05/22 History release patiromer calcium sorbitex 25.2 25.2 g PO DAILY 03/05/22 03/05/22 History gram oral powder packet (Veltassa) tamsulosin 0.4 mg capsule 0.4 mg PO HS 03/05/22 03/05/22 History triamcinolone acetonide 0.1 % 1 applic topical BID 03/05/22 03/05/22 History topical cream vitamin B complex with C-folic 1 tab PO DAILY 03/05/22 03/05/22 History acid 0.8 mg-zinc citrate 50 mg tablet (Dialyvite 800 with Zinc 50) cyanocobalamin (vitamin B-12) 100 100 mcg PO QAM #30 tabs 03/06/22 Rx mcg tablet (Vitamin B-12) folic acid 1 mg tablet 1 mg PO QAM #30 tabs 03/06/22 Rx Past Med/Surg History Medical History (Updated 03/05/22 @ 14:27 by Tawnya Harper PA-C) CKD (chronic kidney disease) Diabetes mellitus type 1 Hypothyroidism Non-STEMI (non-ST elevated myocardial infarction) NSTEMI (non-ST elevated myocardial infarction) Orthostatic hypotension on chronic fludrocortisone Proteinuria Psoriasis Surgical History (Updated 03/05/22 @ 14:26 by Tawnya Harper PA-C) No pertinent past surgical history Family History Other Heart disease Social History Smoking Status: Former smoker Tobacco Type: Cigarettes Cigarettes Per Day: 1 ppd; Smoking End Date: 2018; Hx Alcohol Use: No Hx Substance Use: No Preferred Language: Frisian Communication Ability: Effective Visual Impairment: No Limitations Personal Clothing Laundry Aide Required: No Beliefs That Will Affect Care: None Current Living Situation: Other Current Living Situation Comment: [facility] Other Information That Helps Us Care for You: No Feels Safe at Home: Yes Safety Concerns: Feels Safe At This Time Assistive Devices: Wheelchair Review of Systems Review of Systems: At least ten systems reviewed and negative except as noted in the HPI. Physical Exam Physical Exam: General Appearance: WD/WN, vitals as above, NAD, sitting up in bed, pleasant, conversing easily Head: normocephalic, atraumatic Eyes: normal inspection, PERRL, conjunctivae normal, anicteric sclerae ENT: external ear and nose normal, oropharynx dry Neck: normal visual inspection, trachea midline, no thyromegaly Respiratory: normal respiratory effort, lungs clear to auscultation, no wheeze, rales, rhonchi. No accessory muscle use Cardiovascular: regular rate, rhythm, no murmur, normal peripheral pulses, no BLE edema. Vessels: no JVD Chest: normal inspection of chest Abdomen/GI: normal bowel sounds, soft, nontender, no hepatosplenomegaly Extremities/Musculoskeletal: no cyanosis or clubbing, extremities motor strength 5/5 Neurologic: PERRL, EOMI, accommodation nl, no face palsy, no dysarthria, CN's II-XI intact bilaterally and moves all extremities Psychiatric: A+Ox3, euthymic affect Skin: no rashes,warm/dry. + pale Results & Data Results & Data ([facility]) Vital Signs (Past 12 Hours) Vital Signs Temp Pulse Pulse Resp BP BP Pulse Ox 03/05/22 13:33 85 20 137/79 100 03/05/22 13:00 85 20 137/98 98 03/05/22 11:57 84 20 139/75 99 03/05/22 11:06 86 20 149/79 H 100 03/05/22 10:20 98 03/05/22 10:09 36.4 C L 84 15 119/67 100 O2 Del Method 03/05/22 13:33 Room Air 03/05/22 13:00 Room Air 03/05/22 11:57 Room Air 03/05/22 11:06 Room Air 03/05/22 10:20 Room Air 03/05/22 10:09 Room Air Laboratory Results Short CBC 03/05/22 Range/Units 10:28 WBC 7.22 (4.8-10.8) K/ul Hgb 7.9 L (14.0-18.0) g/dl Hct 24.7 L (40.1-51.0) % Plt Count 386 (130-400) K/uL BMP 03/05/22 10:28 Sodium 130 L Potassium 5.3 H Chloride 104 Carbon Dioxide 18 L BUN 28 H Creatinine 3.01 H Glucose 371 H* Calcium 8.4 L Liver Function 03/05/22 Range/Units 10:28 Total Bilirubin 0.4 (0.2-1.0) mg/dl AST 29 (13-39) U/L ALT 46 (7-52) U/L Alkaline Phosphatase 90 (34-104) U/L Albumin 3.5 (3.4-5.0) gm/dl Diagnostic Findings Chest X-Ray 03/05/22 13:07 XR chest 1V portable CLINICAL HISTORY: hypotension TECHNIQUE: Single frontal radiograph of the chest was obtained. Comparison: Comparison is made to chest radiograph 10/11/2021 FINDINGS: No lines and tubes are seen. The cardiomediastinal silhouette is normal. The lungs are clear. No evidence of pleural effusion or pneumothorax. IMPRESSION: No acute chest disease. ACT 112: Negative or not required by law. Electronically signed by: Sb Becker M.D. 03/05/2022 1:29 PM ECG Additional Comments: NSR Code Status & VTE Plan VTE Prophylaxis Plan VTE Prophylaxis will be ordered: Yes Supervising Physician Co-Signing Physician Notes delayed entry date of service noted above Attending Addendum: care coordinated with SHERRY Harper please refer to her notes for full details, I agree with her notes patient seen and examined, records reviewed by myself as well on exam, patient seen resting in bed, comfortable, not in distress denies symptoms diagnoses and plan of care as per SHERRY Harper's notes Greg Carey MD (1) CKD (chronic kidney disease) Chronic kidney disease stage: unspecified stage Qualified Code(s): N18.9 - Chronic kidney disease, unspecified
[2022-03-05] MEDS ORDERED: SODIUM CHLORIDE 0.9% 1000ML 1,000 ML IV SCH (15:00)
[2022-03-05] MEDS ORDERED: ACETAMINOPHEN 325 MG TAB PO PRN (15:00)
[2022-03-05] MEDS ORDERED: ONDANSETRON INJ 2 MG/ML 2 ML VIAL IV PRN (15:00)
[2022-03-05] MEDS: INSULIN ASPART PER UNIT SC SCH ×2 (15:41→17:30)
[2022-03-05 16:37] LABS: Hematocrit (blood only) 23.2 % (40.1-51.0); Hemoglobin 7.3 g/dl (14.0-18.0)
[2022-03-05 16:57] LABS: BUN Creatinine Ratio 9.5 (10-20); Creatinine Clr Calc Pharmacy 29.9 ml/min; Est GFR (African American) 25.8 ml/min; Est GFR (Non-African American) 22.2 ml/min; Potassium 5.3 mmol/L (3.5-5.1)
[2022-03-05] MEDS ORDERED: LACTOBACILLUS ACIDOPHILUS PO SCH (17:00)
[2022-03-05] MEDS: METOCLOPRAMIDE HCL 10 MG TABLET PO SCH ×2 (17:30→21:32)
[2022-03-05] MEDS ORDERED: TAMSULOSIN HCL 0.4 MG CAP PO SCH (21:00)
[2022-03-05] MEDS ORDERED: FERROUS SULFATE 325 MG TAB PO SCH (21:00)
[2022-03-05] MEDS ORDERED: hydrOXYzine HCl 25 MG TAB PO SCH (21:00)
[2022-03-05] MEDS ORDERED: ATORVASTATIN 40 MG TAB PO SCH (21:00)
[2022-03-05] MEDS: PANTOprazole 40 MG TAB PO SCH (21:32)
[2022-03-06 01:14] LABS: Appearance Urine Clear (Clear); Bacteria Urine Automated Negative (Negative); Bilirubin Urine Negative (Negative); Blood Urine Negative (Negative); Color Urine Yellow; Epithelial Cell Urine Auto 0-5 /lpf (0-5); Glucose Urine UA 1+ (Negative); Ketones Urine Negative (Negative); Leukocyte Esterase Urine Negative (Negative); Nitrite Urine Negative (Negative); Protein Urine Trace (Negative); RBC Urine Automated 0-4 /hpf (0-4); Specific Gravity Urine 1.011 (1.000-1.030); Urobilinogen Urine Negative (Negative); WBC Urine Automated 0 /hpf (0-5); pH Urine 5.5 (4.5-7.5)
[2022-03-06] MEDS ORDERED: LEVOTHYROXINE SODIUM 150 MCG TABLET PO SCH (06:30)
[2022-03-06 07:34] LABS: Hematocrit (blood only) 24.3 % (40.1-51.0); Hemoglobin 7.6 g/dl (14.0-18.0); Mean Corpuscular Hemoglobin 28.5 pg (25.0-34.0); Mean Corpuscular Hgb Conc 31.3 g/dL (32.0-36.0); Platelet Count 380 K/uL (130-400); RDW Coefficient of Variation 14.3 % (11.5-14.5); RDW Standard Deviation 48.2 fL (36.4-46.3); Red Blood Count 2.67 M/uL (4.63-6.08); White Blood Count 6.91 K/ul (4.8-10.8)
[2022-03-06 08:04] LABS: BUN Creatinine Ratio 9.7 (10-20); Calcium 8.2 mg/dl (8.5-10.1); Creatinine Clr Calc Pharmacy 31.9 ml/min; Est GFR (African American) 27.9 ml/min; Est GFR (Non-African American) 24.1 ml/min; Potassium 5.4 mmol/L (3.5-5.1)
[2022-03-06] MEDS ORDERED: ASPIRIN 81 MG ECTAB PO SCH (09:00)
[2022-03-06] MEDS ORDERED: LANTUS PER UNIT CHARGE SQ SCH (09:00)
[2022-03-06] MEDS ORDERED: FLUoxetine HCL 20 MG CAP PO SCH (09:00)
[2022-03-06] MEDS ORDERED: [UNRECOGNIZED DRUG - OTHER] PO SCH (09:00)
[2022-03-06] MEDS ORDERED: ZINC PO SCH (09:00)
[2022-03-06] MEDS: METOCLOPRAMIDE HCL 10 MG TABLET PO SCH ×2 (09:02→12:38)
[2022-03-06] MEDS: PANTOprazole 40 MG TAB PO SCH (09:03)
[2022-03-06] MEDS: INSULIN ASPART PER UNIT SC SCH ×2 (09:10→12:41)
[2022-03-06] MEDS ORDERED: FOLIC ACID 1 MG TAB PO SCH (11:30)
[2022-03-06] MEDS ORDERED: CYANOCOBALAMIN (B-12) 100 MCG TABLET PO SCH (11:30)
[2022-03-06] MEDS ORDERED: IRON SUCROSE 400 MG in SODIUM CHLORIDE 0.9% 250 ML IV ONE (11:45)
[2022-03-06] MEDS ORDERED: PATIROMER CALCIUM SORBITEX 8.4 GM PACK PO SCH (12:00)
--- NOTE | 2022-03-06 12:13 | Discharge Summary ---
Date of Service March 06, 2022 Admission HPI Per Admitting Provider This is a 57yo M from [facility] with a PMH of type 1 diabetes, CKD with baseline creatinine around 3, depression, anemia, hypothyroidism, neuropathy and other medical problems listed below who presents after hypotensive and tachycardic episode today. Patient with history of brittle diabetes who resides in [facility] at [place]. Was in normal state of health until this morning. Remembers blood sugar was 70 prior to breakfast. After eating, noted to be hypotensive with recorded BP 70/40 with heart rate in the 120s. Patient reports feeling dizzy at this time but denies any chest pain, palpitations, shortness of breath or near syncope. Received 500 mL bolus by EMS with improved blood pressure by the time of arrival to 119/67, heart rate of 84. Currently feeling back at baseline. Denies any fever, chills or recent infection. No headache, chest pain, palpitations, shortness of breath, nausea, vomiting, abdominal pain, dysuria, diarrhea constipation. Denies any black tarry stools or bright red bl ood in bowel movements are reportedly been regular. History of CKD with baseline creatinine around 3. Reports making urine without issue. Not on dialysis. Is wheelchair-bound due to significant diabetic peripheral neuropathy. Admission Exam Per Admitting Provider General Appearance:WD/WN, vitals as above, NAD, sitting up in bed, pleasant, conversing easily Head: normocephalic, atraumatic Eyes:normal inspection, PERRL, conjunctivae normal, anicteric sclerae ENT: external ear and nose normal, oropharynx dry Neck: normal visual inspection, trachea midline, no thyromegaly Respiratory:normal respiratory effort, lungs clear to auscultation, no wheeze, rales, rhonchi. No accessory muscle use Cardiovascular: regular rate, rhythm, no murmur, normal peripheral pulses, no BLE edema. Vessels: no JVD Chest: normal inspection of chest Abdomen/GI: normal bowel sounds, soft, nontender, no hepatosplenomegaly Extremities/Musculoskeletal: no cyanosis or clubbing, extremities motor strength 5/5 Neurologic: PERRL, EOMI, accommodation nl, no face palsy, no dysarthria, CN's II-XI intact bilaterally and moves all extremities Psychiatric:A+Ox3, euthymic affect Skin: no rashes,warm/dry. + pale Principal Diagnosis Acute hypotension Anemia on the background of CKD DM type I Discharge Exam GENERAL: Alert and oriented x3. NAD, on RA. HEENT: No pallor, no icterus. Pupils equal, round and reactive to light. Oral mucosa moist. NECK: No JVD, no neck masses. HEART: S1 and S2 heard. Regular rate and rhythm. No murmur, no gallop. RESPIRATORY SYSTEM: Normal AP diameter. No accessory muscle use. No wheezing, no crackles. ABDOMEN: Soft, bowel sounds present, nontender, no distention. CENTRAL NERVOUS SYSTEM: No facial droop. Speech is clear. Obeys simple commands. Moves extremities. EXTREMITIES: No edema, no erythema seen. Discharge Data Allergies Allergy/AdvReac Type Severity Reaction Status Date / Time sodium chloride AdvReac Unknown CONTRAINDIC Verified 11/23/21 07:55 [From [place] Nasal] ATED. OC SPRAY AdvReac CONTRINDICA Uncoded 11/23/21 07:55 ATION Consultations 03/05/22 13:07 ED Decision to Admit Stat Hospital Course (1) Acute hypotension: Plan 57yo M from [facility] with a PMH of type 1 diabetes, CKD with baseline creati nine around 3, depression, anemia, hypothyroidism, neuropathy and other medical problems listed below who presented 03/05 after hypotensive and tachycardic episode. He was managed for the following: (1) Acute hypotension Noted to be hypotensive 03/06 AM with BP 70/40 with heart rate in the 120s that has resolved after 500 ml NSS At admission: Afebrile, no leukocytosis, hgb 7.9 (baseline 8-10), sodium 130 (corrected to 135 in setting of hyperglycemia), potassium 5.3, Cr 3.01 CXR with no acute disease ECG with normal sinus rhythm Likely due to hypovolemic state due to quick resolution with IV fluids. Appeared dry on admitting exam. Anemia at lower end of baseline but no reported blood in stool, getting iron transfusion. No signs of infection, pt hemodynamically stable and reports strength back to baseline. (2) Anemia: Plan: Anemia at lower end of baseline but no reported blood in stool. c/w iron supplement. Colonoscospic eval as OP, pt made aware. (3) Diabetes mellitus type 1: Plan: Brittle diabetic. Reported BSG of 70 this AM, 370 upon arrival A1c ordered Glycemic consult placed BSG AC HS (4) CKD (chronic kidney disease): Plan: Cr at 3 (at baseline). Continue to monitor (5) Diabetic neuropathy: Plan: BLE neuropathy. Wheelchair bound. Fall precautions (6) Hypothyroidism: Plan: Continue levothyroxine (7) Depression: Plan: Continue SSRI (8) Dyslipidemia: Plan: Continue statin DVT Ppx: SCDs Code status: FULL PCP: [facility] Guaman Patient being discharged with following instruction at the point of discharge: [Dr. Brennan given phone call and signed out on the patient] Follow-up with your primary care physician within a week time. For your diabetes, follow-up closely with your diabetic clinic or primary care physician for ongoing management. For your hypotension episodes, you can take electrolyte solution up to 1 L a day in addition to other adequate fluid intake as discussed at the bedside. You can skip the dose of your blood pressure medications when your blood pressure is <110/70 mmHg. Recommend evaluation by GI doctor as an outpatient for colonoscopy as part of anemia work-up. Get your blood work CBC and CMP done in a week time and have the results forwarded to your primary care physician. Take your medications as prescribed. Total Time Total Time Spent Total Time Spent (In Minutes): 40 Discharge Plan Discharge Items [facility]position[facility] Reason For Visit: HYPOTENSIVE EPISODE Discharge Diagnosis: Acute hypotension Anemia on the background of CKD DM type I Activity: Resume your previous activity Non-emergency contact: Primary Care Provider Call non-emergency contact if: you have any medication questions, your symptoms worsen and your temperature is above 101 Follow-up/Referrals: Deniz ESQUIVEL [Primary Care Provider] - Diet: Carb Count or DM1, Low Potassium (2gm) and Low Sodium (2gm) Addtl Attending Provider Instructions: Follow-up with your primary care physician within a week time. For your diabetes, follow-up closely with your diabetic clinic or primary care physician for ongoing management. For your hypotension episodes, you can take electrolyte solution up to 1 L a day in addition to other adequate fluid intake as discussed at the bedside. You can skip the dose of your blood pressure medications when your blood pressure is <110/70 mmHg. Recommend evaluation by GI doctor as an outpatient for colonoscopy as part of anemia work-up. Get your blood work CBC and CMP done in a week time and have the results forwarded to your primary care physician. Take your medications as prescribed. Pending Studies at Discharge: No Skilled Items Patient informed of condition?: Yes DNR: No Discharge Level of Care: Other Communicable Disease: No Discharge Prognosis: Stable Lines: None Urinary Catheter: No Medications and DC Order Prescriptions: New cyanocobalamin (vitamin B-12) [Vitamin B-12] 100 mcg Tablet 100 mcg PO QAM Qty: 30 0RF folic acid 1 mg Tablet 1 mg PO QAM Qty: 30 0RF Continued acetaminophen 500 mg Tablet 500 mg PO TID Acidophilus Tablet,Chewable 1 tab PO TIDM alendronate 70 mg Tablet 70 mg PO WK Rx Instructions: TAKE THIS MED EVERY MONDAY IN THE MORNING ON AN EMPTY STOMACH aspirin 81 mg Tablet,Delayed Release (Dr/Ec) 81 mg PO QAM atorvastatin 80 mg Tablet 80 mg PO HS Dialyvite 800 with Zinc 50 0.8-50 mg Tablet 1 tab PO DAILY ferrous sulfate 324 mg (65 mg iron) Tablet,Delayed Release (Dr/Ec) 324 mg PO HS fluoxetine 20 mg Capsule 40 mg PO QAM hydroxyzine pamoate 50 mg Capsule 50 mg PO HS levothyroxine 150 mcg Tablet 150 mcg PO DAILYBB lisinopril 10 mg Tablet 10 mg PO BID metoclopramide HCl 10 mg Tablet 10 mg PO ACHS Rx Instructions: TAKE ONE TABLET, ORALLY, FOUR TIMES DAILY 15 MINUTES BEFORE MEALS AND AT BEDTIME ondansetron 8 mg Tablet,Disintegrating 8 mg PO Q8H pantoprazole 40 mg Tablet,Delayed Release (Dr/Ec) 40 mg PO BID tamsulosin 0.4 mg Capsule 0.4 mg PO HS triamcinolone acetonide 0.1 % Cream 1 applic TOPICAL BID Veltassa 25.2 gram Powder In Packet 25.2 g PO DAILY Rx Instructions: DISSOLVE ONE PACKET IN WATER AND DRINK ONCE DAILY 3 HOURS BEFORE MEALS ergocalciferol (vitamin D2) 50 mcg (2,000 unit) Capsule 50 mcg PO QAM insulin glargine [Semglee U-100 Insulin] 100 unit/mL Solution 19 unit SUBCUT QAM loperamide [Imodium A-D] 2 mg Tablet 2 mg PO BID PRN (Reason: Diarrhea) Novolin R Regular U-100 Insuln 100 unit/mL Solution 0 sliding scale dose subcut DAILY PRN (Reason: . NEEDED) Admission Data Admit Date/Time: 03/05/22 13:35 Attending Provider: Justin Avlarado Admit Provider: Greg Carey Primary Care Provider: Deniz ESQUIVEL Other Providers: Greg Carey
[2022-03-07 06:54] LABS: Estimated Average Glucose 174 mg/dl; Hemoglobin A1C 7.7 % (4.5-5.6)
== END 2022-03-06 16:43 ==
LOC: ED 10:05 → 2W 10:05 → SUATTDRO 13:35 → 2W 14:35
DX: D64.9 Anemia, unspecified; Z87.891 Personal history of nicotine dependence; Z79.82 Long term (current) use of aspirin; E10.22 Type 1 diabetes mellitus with diabetic chronic kidney disease; E78.5 Hyperlipidemia, unspecified; I95.9 Hypotension, unspecified; E03.9 Hypothyroidism, unspecified; Z79.4 Long term (current) use of insulin; N18.9 Chronic kidney disease, unspecified; Z79.890 Hormone replacement therapy

== ENCOUNTER 2022-12-14 16:36 | Inpatient (IN) ==
--- NOTE | 2022-12-14 16:42 | Emergency Department Note ---
Impression & Plan Osteomyelitis, Anemia, Failure of outpatient treatment, Ulcer of left ankle ED Provider Note NAME: MARIELA [id number] MILTON AGE: 57 SEX: M : 1965 ARRIVES VIA: Ambulance INFORMANT: [Patient] ED PROVIDER(S): [Kendall Lantigua MD] CHIEF COMPLAINT: HISTORY OF PRESENT ILLNESS: Diabetic ulcer of left ankle: Diabetic ulcer of the left lateral ankle with MRI revealing osteomyelitis and abscess. S aureus RX M.I.C. --- --------- Clindamycin S <=0.5 Daptomycin S 1 Erythromycin S <=0.5 Oxacillin S 0.5 Tetracycline S <=4 Trimeth/Sulfa S <=0.5/9.5 Vancomycin S 2 The patient is a 57-year-old male who presents to the ER with complaints of an ulcer and infection to his left distal leg. He has been dealing with this issue now for months. He was last seen 2 days ago at the wound center and there was concern that things had progressed to the point of needing an amputation. Apparently, today, the nursing home providers spoke to [facility] orthopedics and they recommended transfer to this hospital for admission. The patient states that despite everything that has been done, the wound will not heal. He denies any fever, he denies chills. He is not short of breath. He does not have any pain because he has neuropathy from his diabetes. He believes his sugars have been running okay. Looking at records, he was last on doxycycline. This medication finished on the , 6 days ago. Last wound culture showed a methicillin sensitive staph. PMHx/PSHx: See Below SOCIAL HISTORY: See Below. PHYSICAL EXAM: GENERAL: Patient is in no acute distress. HEENT: No acute trauma, normocephalic atraumatic, mucous membranes moist, no nasal congestion. NECK: No stridor, no adenopathy, no meningismus, trachea is midline. LUNGS: Clear to auscultation bilaterally, no wheeze, no rhonchi, breath sounds equal. HEART: Without murmurs gallops or rubs, regular rate and rhythm. ABDOMEN: Soft, nontender, bowel sounds positive, no peritonitis. EXTREMITIES: No cyanosis. The patient has some edema to the left lower extremity. There is a 2 cm open wound/ulcer to the lateral malleolus. This wound has some purulent drainage and appears quite deep. The packing was removed. There is no pain with palpation. There is some subtle warmth just proximal to the lesion. No excessive erythema. No foul odor at this time. NEUROLOGIC: Oriented x 3, no acute motor or sensory deficits, no focal weakness. SKIN: No jaundice, no diaphoresis. DIFFERENTIAL DIAGNOSIS: Osteomyelitis, tenosynovitis, abscess, failed outpatient management, neurovascular compromise, bacteremia or sepsis, metabolic abnormality, among others. EMERGENCY DEPARTMENT COURSE/PROCEDURES: Prior/Outside records reviewed: Wound center notes, nursing home notes, orthopedic notes. ECG per my interpretation: Indication was possible sepsis. The ECG shows a normal sinus rhythm with a rate of 80. There is no ST elevation, no PVCs. The QTc is 442. MEDICAL DECISION MAKING: There is no leukocytosis. A mild anemia was seen. Platelet count was slightly elevated. Creatinine was high at 2.65, this appears baseline for the patient. There was no electrolyte abnormality in need of emergent correction. Lactic acid level was not elevated making severe sepsis less likely. There was no concerning liver enzyme elevation. Procalcitonin level was not not elevated. COVID test returned negative. ECG showed a sinus rhythm, no ischemia. Left ankle film per my review did show evidence for osteomyelitis. On exam, the patient had a large wound to the lateral left leg near his malleolus. The wound was quite deep with drainage. A culture was obtained. The patient was not toxic or febrile. I did speak with orthopedics, Dr. Tomas. A medical admission was felt necessary. The patient can be seen by orthopedics in consult. The patient received IV vancomycin, IV saline 1 L, IV Flagyl, IV cefepime. I did speak with case management, I spoke with the patient, the on-call hospitalist was consulted. Patient has osteomyelitis with an abscess. His infection is not improving with outpatient therapy. The patient is very likely going to require some type of orthopedic surgical intervention. DISPOSITION: Patient's presentation and findings warrant a hospital stay. Past Med/Surg History Medical History Chronic anemia Chronic hyperkalemia Chronic hyponatremia Chronic nausea CKD (chronic kidney disease) Diabetes mellitus type 1 Hypothyroidism Non-STEMI (non-ST elevated myocardial infarction) NSTEMI (non-ST elevated myocardial infarction) Orthostatic hypotension on chronic fludrocortisone Proteinuria Psoriasis Surgical History Status post right foot surgery Family History Other Heart disease Social History Smoking Status: Never smoker Tobacco Type: Cigarettes Cigarettes Per Day: 1 ppd; Second Hand Exposure: No; Do You Dip or Chew Tobacco: No; Hx Alcohol Use: No Hx Substance Use: No Preferred Language: Panamanian Communication Ability: Effective Visual Impairment: No Limitations Interactive Producer Required: No Beliefs That Will Affect Care: None Current Living Situation: Other Current Living Situation Comment: inmate Other Information That Helps Us Care for You: No Feels Safe at Home: Yes Safety Concerns: Feels Safe At This Time Assistive Devices: Glasses, Hearing Aid - Bilateral and Wheelchair Allergies Allergies Allergy/AdvReac Type Severity Reaction Status Date / Time sodium chloride AdvReac Unknown CONTRAINDIC Verified 11/21/22 09:44 [From [place] Nasal] ATED. OC SPRAY AdvReac CONTRINDICA Uncoded 11/21/22 09:44 ATION Home Meds Home Medications Medication Instructions Recorded Confirmed Lactobacillus acidophilus 1 tab PO TIDM 03/05/22 12/14/22 (Acidophilus chewable tablet) alendronate 70 mg tablet 70 mg PO WK 03/05/22 12/14/22 aspirin 81 mg tablet,delayed 81 mg PO QAM 03/05/22 12/14/22 release ergocalciferol (vitamin D2) 50 mcg 50 mcg PO WK 03/05/22 12/14/22 (2,000 unit) capsule fluoxetine 20 mg capsule 40 mg PO QAM 03/05/22 12/14/22 hydroxyzine pamoate 50 mg capsule 50 mg PO HS 03/05/22 12/14/22 insulin glargine 100 unit/mL 15 unit subcut QAM 03/05/22 12/14/22 subcutaneous solution insulin regular human 100 unit/mL 2 unit subcut BID 03/05/22 12/14/22 injection solution (Novolin R Regular U-100 Insulin) levothyroxine 150 mcg tablet 150 mcg PO DAILYBB 03/05/22 12/14/22 metoclopramide HCl 10 mg tablet 10 mg PO ACHS 03/05/22 12/14/22 ondansetron 8 mg disintegrating 8 mg PO TID 03/05/22 12/14/22 tablet pantoprazole 40 mg tablet,delayed 40 mg PO BID 03/05/22 12/14/22 release patiromer calcium sorbitex 25.2 25.2 g PO .DAILY @ 03:45 03/05/22 12/14/22 gram oral powder packet (Veltassa) tamsulosin 0.4 mg capsule 0.4 mg PO HS 03/05/22 12/14/22 vitamin B complex with C-folic 1 tab PO DAILY 03/05/22 12/14/22 acid 0.8 mg-zinc citrate 50 mg tablet (Dialyvite 800 with Zinc 50) epoetin sanchez 10,000 unit/mL 10,000 unit subcut WK 11/21/22 12/14/22 injection solution (Epogen) ascorbic acid (vitamin C) 500 mg 500 mg PO QAM 12/14/22 12/14/22 tablet (Vitamin C) atorvastatin 40 mg tablet 40 mg PO PM 12/14/22 12/14/22 insulin regular human 100 unit/mL 1 sliding scale dose subcut 12/14/22 12/14/22 injection solution (Novolin R USEASDIRECTD PRN Hyperglycemia Regular U-100 Insulin) sodium bicarbonate 650 mg tablet 650 mg PO BID 12/14/22 12/14/22 Previous Rx's Medication Instructions Recorded cyanocobalamin (vitamin B-12) 100 100 mcg PO QAM #30 tabs 03/06/22 mcg tablet (Vitamin B-12) folic acid 1 mg tablet 1 mg PO QAM #30 tabs 03/06/22 Results & Data (ED) Vital Signs Vital Signs - 24 hr 12/14/22 16:45 12/14/22 16:56 12/14/22 16:57 Temperature 36.5 C Temperature Source Oral Pulse Rate 91 H 88 87 Pulse Rate from SpO2 Sensor 87 Pulse Rhythm Regular Pulse Strength Normal Respiratory Rate 18 24 Respiratory Effort / Characteristics Non-Labored Spontaneous Respiratory Depth Normal Respiratory Pattern Regular Blood Pressure 141/79 H Blood Pressure Mean 99 Blood Pressure Position Lying Pulse Oximetry 98 95 Oxygen Delivery Method Room Air Sepsis Recent Fever Within 48 Hours No Sepsis New/Unexplained Change in Mental Status No Sepsis Action Taken by Nursing No Action Required 12/14/22 17:00 12/14/22 17:00 12/14/22 17:05 Temperature Temperature Source Pulse Rate 89 Pulse Rate from SpO2 Sensor 88 Pulse Rhythm Pulse Strength Respiratory Rate 15 Respiratory Effort / Characteristics Respiratory Depth Respiratory Pattern Blood Pressure 140/80 141/85 H Blood Pressure Mean 98 94 Blood Pressure Position Pulse Oximetry 96 Oxygen Delivery Method Sepsis Recent Fever Within 48 Hours Sepsis New/Unexplained Change in Mental Status Sepsis Action Taken by Nursing 12/14/22 17:05 12/14/22 17:10 12/14/22 17:10 Temperature Temperature Source Pulse Rate 88 88 Pulse Rate from SpO2 Sensor 85 87 Pulse Rhythm Pulse Strength Respiratory Rate 23 23 Respiratory Effort / Characteristics Respiratory Depth Respiratory Pattern Blood Pressure 152/83 H Blood Pressure Mean 106 Blood Pressure Position Pulse Oximetry 96 95 Oxygen Delivery Method Sepsis Recent Fever Within 48 Hours Sepsis New/Unexplained Change in Mental Status Sepsis Action Taken by Prison Medications Current Medication List: was personally reviewed by me Laboratory Data Attestation: I reviewed the patient's lab results. 12/14/22 17:00 12/14/22 17:00 Lab Results 12/14/22 12/14/22 12/14/22 Range/Units 17:00 17:00 17:00 WBC 10.44 (4.8-10.8) K/ul RBC 4.77 (4.70-6.10) M/uL Hgb 12.7 L (14.0-18.0) g/dl Hct 40.4 L (42.0-52.0) % MCV 84.7 (80.0-100.0) fL MCH 26.6 (25.0-34.0) pg MCHC 31.4 L (32.0-36.0) g/dL RDW Std Deviation 52.2 H (36.4-46.3) fL RDW Coeff of Minnie 17.0 H (11.5-14.5) % Plt Count 487 H (130-400) K/uL MPV 8.5 L (9.4-12.4) fL Immature Gran % (Auto) 0.4 % Neut % (Auto) 70.7 % Lymph % (Auto) 12.5 % [place] % (Auto) 14.9 % Eos % (Auto) 0.7 % Baso % (Auto) 0.8 % Neut # (Auto) 7.39 H (1.40-6.50) K/uL Lymph # (Auto) 1.30 (1.2-3.4) K/uL [place] # (Auto) 1.56 H (0.11-0.59) K/uL Eos # (Auto) 0.07 (0-0.50) K/uL Baso # (Auto) 0.08 (0-0.2) K/uL Immature Gran # (Auto) 0.04 (0.01-0.20) K/uL Sodium 134 L (136-145) mmol/L Potassium 4.9 (3.5-5.1) mmol/L Chloride 101 (98-107) mmol/L Carbon Dioxide 26 (21-32) mmol/L Anion Gap 7 (3-11) BUN 29 H (6-23) mg/dl Creatinine 2.65 H (0.6-1.4) mg/dl Est Cr Clr Drug Dosing 26.4 ml/min Est GFR ( Amer) 29.5 ml/min Est GFR (Non-Af Amer) 25.4 ml/min BUN/Creatinine Ratio 10.9 (10-20) Glucose 84 (70-99(Fasting)) mg/dl Lactate 1.1 (0.4-2.0) mmol/L Calcium 8.6 (8.6-10.3) mg/dl Magnesium 1.7 (1.7-2.4) mg/dl Total Bilirubin 0.6 (0.2-1.0) mg/dl Direct Bilirubin 0.1 (0-0.2) mg/dl AST 17 (13-39) U/L ALT 15 (7-52) U/L Alkaline Phosphatase 96 (34-104) U/L Total Protein 7.2 (6.0-8.3) gm/dl Albumin 3.0 L (3.4-5.0) gm/dl Procalcitonin (0-0.5) ng/ml 12/14/22 Range/Units 17:00 WBC (4.8-10.8) K/ul RBC (4.70-6.10) M/uL Hgb (14.0-18.0) g/dl Hct (42.0-52.0) % MCV (80.0-100.0) fL MCH (25.0-34.0) pg MCHC (32.0-36.0) g/dL RDW Std Deviation (36.4-46.3) fL RDW Coeff of Minnie (11.5-14.5) % Plt Count (130-400) K/uL MPV (9.4-12.4) fL Immature Gran % (Auto) % Neut % (Auto) % Lymph % (Auto) % [place] % (Auto) % Eos % (Auto) % Baso % (Auto) % Neut # (Auto) (1.40-6.50) K/uL Lymph # (Auto) (1.2-3.4) K/uL [place] # (Auto) (0.11-0.59) K/uL Eos # (Auto) (0-0.50) K/uL Baso # (Auto) (0-0.2) K/uL Immature Gran # (Auto) (0.01-0.20) K/uL Sodium (136-145) mmol/L Potassium (3.5-5.1) mmol/L Chloride (98-107) mmol/L Carbon Dioxide (21-32) mmol/L Anion Gap (3-11) BUN (6-23) mg/dl Creatinine (0.6-1.4) mg/dl Est Cr Clr Drug Dosing ml/min Est GFR ( Amer) ml/min Est GFR (Non-Af Amer) ml/min BUN/Creatinine Ratio (10-20) Glucose (70-99(Fasting)) mg/dl Lactate (0.4-2.0) mmol/L Calcium (8.6-10.3) mg/dl Magnesium (1.7-2.4) mg/dl Total Bilirubin (0.2-1.0) mg/dl Direct Bilirubin (0-0.2) mg/dl AST (13-39) U/L ALT (7-52) U/L Alkaline Phosphatase (34-104) U/L Total Protein (6.0-8.3) gm/dl Albumin (3.4-5.0) gm/dl Procalcitonin 0.23 (0-0.5) ng/ml Administered Medications Discontinued Medications Sodium Chloride (Nss 1000ml) 1,000 mls @ 999 mls/hr IV .[id number] MARY Stop: 12/14/22 17:45 Last Infusion: 12/14/22 18:23 Dose: 0 mls/hr Documented By: Admin: 12/14/22 17:23 Dose: 999 mls/hr Documented By: TESSA Vancomycin HCl 1,750 mg/ (Sodium Chloride) 535 mls @ 200 mls/hr IV NOW STA; Protocol Stop: 12/14/22 19:45 Last Infusion: 12/14/22 21:42 Dose: 0 mls/hr Documented By: Admin: 12/14/22 18:41 Dose: 200 mls/hr Documented By: TESSA Cefepime HCl (Maxipime) 20 mls @ 5 mls/min IV NOW STA Stop: 12/14/22 17:05 Last Admin: 12/14/22 17:23 Dose: 5 mls/min Documented By: TESSA Metronidazole (Flagyl) 500 mg in 100 mls @ 100 mls/hr IV NOW STA Stop: 12/14/22 18:03 Last Infusion: 12/14/22 19:00 Dose: 0 mls/hr Documented By: Admin: 12/14/22 17:23 Dose: 100 mls/hr Documented By: TESSA Imaging Data Radiologist's Impression: Ankle X-Ray 12/14/22 16:58 XR ankle LT min 3V routine CLINICAL HISTORY: Possible osteomyelitis. COMPARISON: Left ankle MRI December 05, 2022. FINDINGS: Note is made of trace soft tissue defect consistent with wound of the left ankle. There is associated soft tissue swelling. A locule of soft tissue gas is present. There is slight indistinctness of the cortex of the fibular tip with a small adjacent 4 mm bone fragment. Talar dome is intact. No additional sites of bony erosion are identified. Moderate vascular calcification is incidentally noted. No acute fractures. IMPRESSION: 1. Lateral ankle wound with associated soft tissue swelling. 2. Indistinctness of the cortex of the fibular tip suggestive of acute osteomyelitis, as shown on MRI of December 05, 2022. 3. No acute fractures. ACT 112: Negative or not required by law. Electronically signed by: Wong Lazaro M.D. 12/14/2022 6:51 PM MRI OF THE LEFT ANKLE WITHOUT IV CONTRAST CLINICAL HISTORY: Pressure ulcer. Wound. COMPARISON STUDY: No priors. TECHNIQUE: MRI of the left ankle is performed utilizing various T1 and T2 sequences in the axial, sagittal, and coronal planes. IV contrast was not administered for this examination. The examination is significantly compromised by motion artifact. Note that interpretation is suboptimal without plain film correlate. FINDINGS: There is anterior subluxation/dislocation of the talus. This is displaced anteriorly by approximately 2 cm. There is no MRI evidence of acute fracture. There is marked soft tissue swelling around the ankle. There is a wound in the lateral soft tissues overlying the lateral malleolus. A fluid collection deep to the normal cervical at this site measures 2.8 x 2.9 x 2.0 cm. This appears to communicate with the joint space. There is a large and complex appearing joint effusion with surrounding of inflammation. Joint bodies are noted. There is abnormal marrow signal within the lateral malleolus that is highly suspicious for osteomyelitis. Erosive change/fragmentation is seen involving the anterior tibial plafond on sagittal image #11 with corresponding marrow edema. There is milder nonspecific marrow abnormality and edema within the the talus and the calcaneus. This is best seen on the sagittal STIR sequence. There is complex fluid seen around the peroneal tendons, as well as the flexor hallucis longus tendon. This is consistent with tenosynovitis, and may be infectious. The anterior, posterior, and peroneal tendons appear intact. The Achilles tendon is intact. The anterior talofibular ligament is ruptured. There is diffuse myositis of the regional musculature. Imaged portions of the plantar fascia appear intact. IMPRESSION: 1. Significant motion compromised examination. 2. Large wound with significant cellulitis overlying the lateral ankle. 3. There is a 2.9 cm pocket of fluid deep to the wound which likely represents abscess. Packing material could appear similar but is considered less likely. Correlate clinically. 4. The pocket of fluid to appears to communicated with the joint space. There is a large and complex appearing joint effusion. Septic arthritis at the ankle joint is the diagnosis of exclusion. 5. There is marrow abnormality within the lateral malleolus that is highly suspicious for osteomyelitis. There is also erosion and probable osteomyelitis involving the anterior tibial plafond. 6. Milder nonspecific marrow edema is also seen within the talus and calcaneus. This could be reactive. Infection is not excluded. 7. There is significant complex fluid identified around the peroneal tendons and the flexure hallucis longus tendon. This is consistent with tenosynovitis and may be infectious. 8. There is anterior subluxation/dislocation of the talus. 9. Additional findings as above. Electronically signed by: Kendall Pardo M.D. 12/05/2022 3:56 PM Discharge Plan Visit Data Chief Complaint: Leg Injury/Pain Stated Complaint: LEG MIGHT NEED AMPUTATED ED Provider: Kendall Lantigua Discharge Problem: Osteomyelitis, Anemia, Failure of outpatient treatment, Ulcer of left ankle Patient Disposition: Admitted As Inpatient Condition: Fair Discharge Instructions Interventions: ED Discharge Assessment Last Done: 12/14/22 21:47
[2022-12-14] MEDS ORDERED: SODIUM CHLORIDE 0.9% 1000ML 1,000 ML IV SCH (16:45)
[2022-12-14] MEDS ORDERED: CEFEPIME 20 ML IV STA (17:02)
[2022-12-14] MEDS ORDERED: metroNIDAZOLE 500 MG/100 ML BAG IV STA (17:04)
[2022-12-14] MEDS ORDERED: VANCOMYCIN HCL 1,750 MG in SODIUM CHLORIDE 0.9% 500 ML IV STA (17:05)
[2022-12-14 17:27] LABS: Basophils # (auto) 0.08 K/uL (0-0.2); Basophils % (auto) 0.8 %; Eosinophils # (auto) 0.07 K/uL (0-0.50); Eosinophils % (auto) 0.7 %; Hematocrit (blood only) 40.4 % (42.0-52.0); Hemoglobin 12.7 g/dl (14.0-18.0); Immature Granulocytes # (auto) 0.04 K/uL (0.01-0.20); Immature Granulocytes % (auto) 0.4 %; Lymphocytes % (auto) 12.5 %; Mean Corpuscular Hemoglobin 26.6 pg (25.0-34.0); Mean Corpuscular Hgb Conc 31.4 g/dL (32.0-36.0); Mean Corpuscular Volume 84.7 fL (80.0-100.0); Mean Platelet Volume 8.5 fL (9.4-12.4); Monocytes # (auto) 1.56 K/uL (0.11-0.59); Monocytes % (auto) 14.9 %; Neutrophils # (auto) 7.39 K/uL (1.40-6.50); Neutrophils % (auto) 70.7 %; Platelet Count 487 K/uL (130-400); RDW Standard Deviation 52.2 fL (36.4-46.3); Red Blood Count 4.77 M/uL (4.70-6.10); White Blood Count 10.44 K/ul (4.8-10.8)
[2022-12-14 17:35] LABS: BUN Creatinine Ratio 10.9 (10-20); Bilirubin Direct 0.1 mg/dl (0-0.2); Bilirubin,Total 0.6 mg/dl (0.2-1.0); Calcium 8.6 mg/dl (8.6-10.3); Creatinine Clr Calc Pharmacy 26.4 ml/min; Est GFR (African American) 29.5 ml/min; Est GFR (Non-African American) 25.4 ml/min; Magnesium 1.7 mg/dl (1.7-2.4); Potassium 4.9 mmol/L (3.5-5.1); Total Protein 7.2 gm/dl (6.0-8.3)
--- NOTE | 2022-12-14 18:33 | History & Physical Report ---
Date of Service December 14, 2022 Assessment & Plan (1) Diabetic ulcer of left ankle: (2) Osteomyelitis of ankle: Plan: Patient is 57-year-old male with PMH DM I, diabetic neuropathy presented to ER for ongoing left ankle ulcer 12/05/22 Left Ankle MRI: 1. Significant motion compromised examination. 2. Large wound with significant cellulitis overlying the lateral ankle. 3. There is a 2.9 cm pocket of fluid deep to the wound which likely represents abscess. Packing material could appear similar but is considered less likely. Correlate clinically. 4. The pocket of fluid to appears to communicated with the joint space. There is a large and complex appearing joint effusion. Septic arthritis at the ankle joint is the diagnosis of exclusion. 5. There is marrow abnormality within the lateral malleolus that is highly suspicious for osteomyelitis. There is also erosion and probable osteomyelitis involving the anterior tibial plafond. 6. Milder nonspecific marrow edema is also seen within the talus and calcaneus. This could be reactive. Infection is not excluded. 7. There is significant complex fluid identified around the peroneal tendons and the flexure hallucis longus tendon. This is consistent with tenosynovitis and may be infectious. 8. There is anterior subluxation/dislocation of the talus. In ER vitals stable. No leukocytosis, lactate WNL, procalcitonin: 0.23 Left ankle x-ray: Lateral ankle wound with associated soft tissue swelling. Indistinctness of the cortex of the fibular tip suggestive of acute osteomyelitis, as shown on MRI of December 05, 2022. No acute fractures. Blood cultures are pending Wound culture pending In ER given cefepime, vancomycin, Flagyl We will continue cefepime, vancomycin Flagyl N.p.o. midnight Ortho consult ID consult CBC, BMP in am (3) Diabetes mellitus type 1: Plan: A1c: 7.7 on 03/06/2022 Continue basal bolus insulin Glycemic pharmacy consult (4) CKD (chronic kidney disease), stage III: Plan: CKD III-IV Cr: 2.6. Baseline 2.7-3.0 Monitor renal functions, avoid nephrotoxic agents when possible (5) Dyslipidemia: Plan: Continue atorvastatin (6) Chronic hyponatremia: Plan: Na: 134. At baseline -Continue sodium bicarb tabs (7) Chronic anemia: Plan: Anemia CKD Hgb: 12.7. Was 11.9 on 12/07/2022 On Epogen weekly Continue vitamin B12, folic acid (8) Chronic hyperkalemia: Plan: K: 4.9 On Veltassa (9) Hypothyroidism: Plan: Continue levothyroxine (10) Depression: Plan: Continue fluoxetine (11) Chronic nausea: Plan: Continue PPI, Reglan DVT Prophylaxis SCDs Full Code as per discussion with pt Follows with Dr for routine care Pt was seen and care coordinated with Dr Cagle. See addendum I spent a total of 80 minutes reviewing notes, outpatient records, labs, medication, coordinating, documenting and providing care for this patient excluding time spent in the performance of separately billed services. History of Present Illness Chief Complaint: Left ankle ulcer Primary Care Provider: SIERRA Guaman Patient is 57-year-old male with PMH DM I, diabetic neuropathy, HTN, dyslipidemia CKD III, chronic anemia, chronic hyponatremia, chronic hypokalemia, hypothyroidism, depression, chronic nausea vomiting, psoriasis, left ankle diabetic ulcer presented to ER for left ankle ulcer. Patient has had ongoing left ankle ulcer. Has been following with [facility] wound clinic. Previously treated with doxycycline. Patient states area is not healing. He is unaware of any discharge from area. Has neuropathy so denies any pain. 12/05/2022 left ankle MRI showed 2.9 cm pocket of fluid deep to the wound which likely represents abscess, pocket of fluid to appears to communicated with the joint space, large and complex appearing joint effusion, marrow abnormality within the lateral malleolus that is highly suspicious for osteomyelitis and erosion and probable osteomyelitis involving the anterior tibial plafond. Patient was to have follow-up with [facility] soon. Ortho recommended patient present to hospital. Denies fever/chills, diaphoresis, worsening nausea, V/D/C, CABRERA, dizziness, syncope, vision changes, neck pain, CP, SOB, palpitations, cough, sore throat, rhinorrhea, abdominal pain, paresthesias, extremity weakness, extremity edema, urinary symptoms. Allergies Allergy/AdvReac Type Severity Reaction Status Date / Time sodium chloride AdvReac Unknown CONTRAINDIC Verified 11/21/22 09:44 [From [place] Nasal] ATED. OC SPRAY AdvReac CONTRINDICA Uncoded 11/21/22 09:44 ATION Home Medications Medication Instructions Recorded Confirmed Type Lactobacillus acidophilus 1 tab PO TIDM 03/05/22 12/14/22 History (Acidophilus chewable tablet) alendronate 70 mg tablet 70 mg PO WK 03/05/22 12/14/22 History aspirin 81 mg tablet,delayed 81 mg PO QAM 03/05/22 12/14/22 History release ergocalciferol (vitamin D2) 50 mcg 50 mcg PO WK 03/05/22 12/14/22 History (2,000 unit) capsule fluoxetine 20 mg capsule 40 mg PO QAM 03/05/22 12/14/22 History hydroxyzine pamoate 50 mg capsule 50 mg PO HS 03/05/22 12/14/22 History insulin glargine 100 unit/mL 15 unit subcut QAM 03/05/22 12/14/22 History subcutaneous solution insulin regular human 100 unit/mL 2 unit subcut BID 03/05/22 12/14/22 History injection solution (Novolin R Regular U-100 Insulin) levothyroxine 150 mcg tablet 150 mcg PO DAILYBB 03/05/22 12/14/22 History metoclopramide HCl 10 mg tablet 10 mg PO ACHS 03/05/22 12/14/22 History ondansetron 8 mg disintegrating 8 mg PO TID 03/05/22 12/14/22 History tablet pantoprazole 40 mg tablet,delayed 40 mg PO BID 03/05/22 12/14/22 History release patiromer calcium sorbitex 25.2 25.2 g PO .DAILY @ 03:45 03/05/22 12/14/22 History gram oral powder packet (Veltassa) tamsulosin 0.4 mg capsule 0.4 mg PO HS 03/05/22 12/14/22 History vitamin B complex with C-folic 1 tab PO DAILY 03/05/22 12/14/22 History acid 0.8 mg-zinc citrate 50 mg tablet (Dialyvite 800 with Zinc 50) cyanocobalamin (vitamin B-12) 100 100 mcg PO QAM #30 tabs 03/06/22 12/14/22 Rx mcg tablet (Vitamin B-12) folic acid 1 mg tablet 1 mg PO QAM #30 tabs 03/06/22 12/14/22 Rx epoetin sanchez 10,000 unit/mL 10,000 unit subcut WK 11/21/22 12/14/22 History injection solution (Epogen) ascorbic acid (vitamin C) 500 mg 500 mg PO QAM 12/14/22 12/14/22 History tablet (Vitamin C) atorvastatin 40 mg tablet 40 mg PO PM 12/14/22 12/14/22 History insulin regular human 100 unit/mL 1 sliding scale dose subcut 12/14/22 12/14/22 History injection solution (Novolin R USEASDIRECTD PRN Hyperglycemia Regular U-100 Insulin) sodium bicarbonate 650 mg tablet 650 mg PO BID 12/14/22 12/14/22 History Past Med/Surg History Medical History (Updated 12/14/22 @ 20:19 by Kinjal Nunes PA-C) Chronic anemia Chronic hyperkalemia Chronic hyponatremia Chronic nausea CKD (chronic kidney disease) Diabetes mellitus type 1 Hypothyroidism Non-STEMI (non-ST elevated myocardial infarction) NSTEMI (non-ST elevated myocardial infarction) Orthostatic hypotension on chronic fludrocortisone Proteinuria Psoriasis Surgical History (Updated 12/14/22 @ 20:14 by Kinjal Nunes PA-C) Status post right foot surgery Family History Other Heart disease Social History Smoking Status: Never smoker Tobacco Type: Cigarettes Cigarettes Per Day: 1 ppd; Hx Alcohol Use: No Hx Substance Use: No Preferred Language: Iranian Communication Ability: Effective Visual Impairment: No Limitations Fireperson Required: No Beliefs That Will Affect Care: None Current Living Situation: Other Current Living Situation Comment: [facility] Feels Safe at Home: Yes Assistive Devices: Wheelchair Review of Systems Review of Systems: All systems reviewed & are unremarkable except as noted in HPI & below Physical Exam Physical Exam: General: no distress, WDWN Head: normocephalic, atraumatic Eyes: conjunctiva non-injected, anicteric ENT: normal inspection external ears, nose, mucous membranes moist Neck: supple, trachea midline Lungs: clear, no respiratory distress, no wheezing/rhonchi/rales CV: RRR, no murmur, no pretibial edema Abd: normal BS, soft, non-tender Ext: no cyanosis, no calf tenderness; LLE: lateral malleolus with deep ulcer with mild surrounding erythema, +scant purulent discharge Neuro: A&O x 3, no focal deficits noted, normal affect Skin: warm, dry Results & Data Results & Data Vital Signs (Past 12 Hours) Vital Signs Temp Pulse Resp BP Pulse Ox O2 Del Method 12/14/22 17:10 152/83 H 12/14/22 17:10 88 23 95 12/14/22 17:05 88 23 96 12/14/22 17:05 141/85 H 12/14/22 17:00 89 15 96 12/14/22 17:00 140/80 12/14/22 16:57 87 24 95 12/14/22 16:56 88 12/14/22 16:45 36.5 C 91 H 18 141/79 H 98 Room Air Laboratory Results Short CBC 12/14/22 Range/Units 17:00 WBC 10.44 (4.8-10.8) K/ul Hgb 12.7 L (14.0-18.0) g/dl Hct 40.4 L (42.0-52.0) % Plt Count 487 H (130-400) K/uL BMP 12/14/22 17:00 Sodium 134 L Potassium 4.9 Chloride 101 Carbon Dioxide 26 BUN 29 H Creatinine 2.65 H Glucose 84 Calcium 8.6 Liver Function 12/14/22 Range/Units 17:00 Total Bilirubin 0.6 (0.2-1.0) mg/dl Direct Bilirubin 0.1 (0-0.2) mg/dl AST 17 (13-39) U/L ALT 15 (7-52) U/L Alkaline Phosphatase 96 (34-104) U/L Albumin 3.0 L (3.4-5.0) gm/dl Diagnostic Findings Ankle X-Ray 12/14/22 16:58 XR ankle LT min 3V routine CLINICAL HISTORY: Possible osteomyelitis. COMPARISON: Left ankle MRI December 05, 2022. FINDINGS: Note is made of trace soft tissue defect consistent with wound of the left ankle. There is associated soft tissue swelling. A locule of soft tissue gas is present. There is slight indistinctness of the cortex of the fibular tip with a small adjacent 4 mm bone fragment. Talar dome is intact. No additional sites of bony erosion are identified. Moderate vascular calcification is incidentally noted. No acute fractures. IMPRESSION: 1. Lateral ankle wound with associated soft tissue swelling. 2. Indistinctness of the cortex of the fibular tip suggestive of acute osteomyelitis, as shown on MRI of December 05, 2022. 3. No acute fractures. ACT 112: Negative or not required by law. Electronically signed by: Wong Lazaro M.D. 12/14/2022 6:51 PM Supervising Physician Co-Signing Physician Notes I have seen and examined the patient and have discussed the case with the provider above. I agree with the assessment and plan as stated. 57-year-old diabetic man who presents with a diabetic foot wound including an unstageable ulcer on the lateral malleolus of the left leg in addition to osteomyelitis of the left ankle. Patient underwent an MRI as outpatient approximately 10 days ago and was placed on doxycycline and appropriately. He presents for a nonhealing wound. He denies any fevers chills and is not septic at this time. He denies any other issues. He denies any pain. On physical exam he is hemodynamically stable and afebrile and oxygenating well on room air. Cardiopulmonary exam is within normal limits, abdomen is soft nontender nondistended. Skin is warm and dry. He has a large gaping ulcer approximately a quarter size over his lateral malleolus. This is not draining and there is mild streaking redness moving proximally up his lower left leg. There is pedal edema present on the left foot. Work-up includes a CBC revealing mild anemia but no evidence of leukocytosis BNP with low normal sodium of 134 BUN of 29 creatinine of 2.65. Renal function is at his baseline compared to prior studies on record review. Magnesium is 1.7 albumin is 3.0. Left ankle x-ray suggests evidence of osteomyelitis similar to the MRI finding on 12/05. 1. Left ankle osteomyelitis 2. left Diabetic foot ulceration 3. Diabetes mellitus 4. Osteoporosis 57-year-old prisoner with left ankle osteomyelitis and nonhealing diabetic foot ulceration with infection evidenced by streaking of redness up the left lower leg proximally. He is appropriately been placed on vancomycin metronidazole and cefepime intravenously. He is not presenting septic and has no elevated white count. He has been on doxycycline p.o. for the last 10 days. Continue with IV therapy and consult orthopedics. Surgical intervention may be required as the MRI previously revealed evidence of an abscess. After orthopedic evaluation would consult infectious disease for further recommendations. Consider bone biopsy to guide antimicrobial therapy. Repeat A1C in am. DO Gurjit
--- NOTE | 2022-12-14 18:53 | XRay Report ---
XR ankle LT min 3V routine CLINICAL HISTORY: Possible osteomyelitis. COMPARISON: Left ankle MRI December 05, 2022. FINDINGS: Note is made of trace soft tissue defect consistent with wound of the left ankle. There is associated soft tissue swelling. A locule of soft tissue gas is present. There is slight indistinctn ess of the cortex of the fibular tip with a small adjacent 4 mm bone fragment. Talar dome is intact. No additional sites of bony erosion are identified. Moderate vascular calcification is incidentally n oted. No acute fractures. IMPRESSION: 1. Lateral ankle wound with associated soft tissue swelling. 2. Indistinctness of the cortex of the fibular tip suggestive of acute osteomyelitis, as shown on MRI of December 05, 2022. 3. No acute fractures. ACT 112: Negative or not required by law. Electronically signed by: Wong Lazaro M.D. 12/14/2022 6:51 PM
[2022-12-14] MEDS ORDERED: VANCOMYCIN CONSULT ACTIVE PRN (22:20)
[2022-12-14] MEDS ORDERED: DEXTROSE 50% 50 ML SYRINGE IV PRN (22:20)
[2022-12-14] MEDS ORDERED: MAGNESIUM HYDROXIDE SUSP 30 ML UDC PO PRN (22:20)
[2022-12-14] MEDS ORDERED: PHARMACY GLYCEMIC MGMT CONSULT PRN (22:20)
[2022-12-14] MEDS ORDERED: POLYETHYLENE (MIRALAX) 17 GM PACK PO PRN (22:20)
[2022-12-14] MEDS ORDERED: ACETAMINOPHEN 325 MG TAB PO PRN (22:20)
[2022-12-14] MEDS ORDERED: VANCOMYCIN HCL 1,000 MG in SODIUM CHLORIDE 0.9% 500 ML IV SCH (22:20)
[2022-12-14] MEDS ORDERED: CARBOHYDRATES FOR HYPOGLYCEMIA PO PRN (22:20)
[2022-12-14] MEDS ORDERED: GLUCOSE 10 TAB/TUBE PO PRN (22:20)
[2022-12-14] MEDS ORDERED: GLUCAGON FOR INJ 1 MG VIAL SQ PRN (22:20)
[2022-12-14] MEDS ORDERED: GLUCOSE 40% GEL 15 GM TUBE PO PRN (22:20)
[2022-12-14] MEDS: INSULIN ASPART PER UNIT CHARGE SC SCH (22:30)
[2022-12-14] MEDS: METOCLOPRAMIDE HCL 10 MG TABLET PO SCH (23:42)
[2022-12-14] MEDS: TAMSULOSIN HCL 0.4 MG CAP PO SCH (23:42)
[2022-12-14] MEDS: PANTOprazole 40 MG TAB PO SCH (23:42)
[2022-12-14] MEDS: ATORVASTATIN 40 MG TAB PO SCH (23:42)
[2022-12-14] MEDS: SODIUM BICARBONATE 650 MG TAB PO SCH (23:42)
[2022-12-15] MEDS: metroNIDAZOLE 500 MG/100 ML BAG IV SCH ×3 (02:26→18:04)
[2022-12-15] MEDS: PATIROMER CALCIUM SORBITEX 8.4 GM PACK PO SCH (04:05)
[2022-12-15] MEDS: LEVOTHYROXINE SODIUM 150 MCG TABLET PO SCH (05:59)
[2022-12-15] MEDS: CEFEPIME 1,000 MG in SYRINGE 0 ML IV SCH ×2 (06:03→18:28)
[2022-12-15 08:45] LABS: Hematocrit (blood only) 36.1 % (42.0-52.0); Hemoglobin 11.5 g/dl (14.0-18.0); Mean Corpuscular Hemoglobin 26.7 pg (25.0-34.0); Mean Corpuscular Hgb Conc 31.9 g/dL (32.0-36.0); Mean Corpuscular Volume 83.8 fL (80.0-100.0); Mean Platelet Volume 8.7 fL (9.4-12.4); Platelet Count 427 K/uL (130-400); RDW Coefficient of Variation 16.6 % (11.5-14.5); RDW Standard Deviation 50.7 fL (36.4-46.3); Red Blood Count 4.31 M/uL (4.70-6.10); White Blood Count 7.93 K/ul (4.8-10.8)
[2022-12-15] MEDS: METOCLOPRAMIDE HCL 10 MG TABLET PO SCH ×4 (08:52→21:11)
[2022-12-15] MEDS: SODIUM BICARBONATE 650 MG TAB PO SCH ×2 (08:52→21:11)
[2022-12-15] MEDS: PANTOprazole 40 MG TAB PO SCH ×2 (08:52→21:11)
[2022-12-15] MEDS: CYANOCOBALAMIN (B-12) 100 MCG TABLET PO SCH (08:52)
[2022-12-15] MEDS: NEPHROCAPS PO SCH (08:53)
[2022-12-15] MEDS: ZINC SULFATE 220 MG CAPSULE PO SCH (08:53)
[2022-12-15] MEDS: FLUoxetine HCL 20 MG CAP PO SCH (08:53)
[2022-12-15] MEDS: ADVANCED PROBIOTIC 1250 MG CAPSULE PO SCH ×3 (08:53→18:05)
[2022-12-15] MEDS: FOLIC ACID 1 MG TAB PO SCH (08:53)
[2022-12-15 08:58] LABS: Calcium 8.1 mg/dl (8.6-10.3); Creatinine Clr Calc Pharmacy 37.6 ml/min; Est GFR (African American) 39.5 ml/min; Est GFR (Non-African American) 34.1 ml/min; Potassium 4.7 mmol/L (3.5-5.1)
[2022-12-15] MEDS: LANTUS PER UNIT CHARGE SQ SCH ×2 (09:00→21:22)
[2022-12-15] MEDS: INSULIN ASPART PER UNIT CHARGE SC SCH ×4 (09:01→21:22)
[2022-12-15 09:03] LABS: Estimated Average Glucose 212 mg/dl
--- NOTE | 2022-12-15 10:00 | Orthopedic Progress Note ---
Date of Service December 15, 2022 Assessment & Plan (1) Osteomyelitis of ankle: Plan: 57-year-old male with left ankle lateral wound, subsequent osteomyelitis Case was reviewed with Dr. Tomas. There is a concern for peripheral vascular disease compromising the patient's ability to heal. Recommend vascular surgery consult to evaluate and treat. Patient really has no significant function of his ankle and foot and therefore any kind of local ankle salvage surgery is likely not going to improve his quality of life. Therefore, the definitive surgical treatment of his osteomyelitis would be a below the knee amputation, however, I am concerned that this is at risk for wound healing problems because of suspected peripheral vascular disease and diabetes. If vascular surgery feels he does not warrant revascularization surgery, or does not want to do a below the knee amputation, would recommend referral to foot/ankle surgeon for further orthopedic management. Patient is afebrile, not septic, and stable, and therefore no acute orthopaedic surgical intervention is warranted at this time. Patient may eat. Continue antibiotics per primary team. Continue with wound care and dressing changes per wound care. Admission and Anticipated Discharge Date Admission Date: December 14, 2022 Supervising Physician Co-Signing Physician Notes I saw and examined the patient, reviewed his imaging, and formulated the above plan constituting the substantial portion of the visit. Agree with the above note. Patient may follow-up with orthopedic foot and ankle surgeon after discharge if needed. Jovanna Hunt is a 57-year-old male with suspected left ankle acute osteomyelitis. He was admitted last night. Past medical history significant for DM I, diabetic neuropathy, HTN, dyslipidemia CKD III, chronic anemia, chronic hyponatremia, chronic hypokalemia, hypothyroidism, depression, chronic nausea vomiting, psoriasis, 20-year smoker, left ankle diabetic ulcer presented to ER for left ankle ulcer. Patient reported that he has had this wound for about 2 months now. Started out as a small little cut, he believes from a bolt on his wheelchair, and has progressively gotten worse. He has been following with [facility] wound clinic and they have been managing. He was previously treated with doxycycline. He has neuropathy at baseline and has no feeling, pain or motion of that foot/ankle at his baseline. He had an MRI done December 05, 2022 that showed almost 3 cm pocket of fluid deep to the wound likely representing abscess, fluid appears to communicate with joint space, large joint effusion with marrow abnormality within the lateral malleolus highly suspicious for acute osteomyelitis at the anterior tibial plafond. Patient reports that he is feeling well. He denies any fevers, chills or malaise. Patient reports he is using a wheelchair at baseline and does not walk. He does weight-bear to transfer. He reports has not had any falls. He says he cannot feel his feet or move his feet. Review of Systems Review of Systems: Per HPI Physical Exam Physical Exam: Dressing was taken down which revealed an oval-shaped, 3 x 2 cm open wound over the lateral malleolus which is exposed at the base of the wound. There is a scant amount of drainage from the wound and minimal surrounding swelling and erythema. Patient has no sensation distal to his mid armenta at his baseline. He has no pain to palpation, and is unable to wiggle his toes or move his ankle up and down, which he says is normal for him with the neuropathy. Unable to palpate dorsal pedal or posterior tibial pulses. Patient has some mild erythema in his toes consistent with peripheral vascular disease with poor capillary refill. Results & Data Vital Signs (Past 12 Hours) Vital Signs Temp Pulse Resp BP Pulse Ox O2 Del Method 12/15/22 07:20 36.6 C 78 16 159/89 H 97 Room Air 12/14/22 22:05 36.7 C 78 18 166/90 H 98 Room Air Diagnostic Findings X-rays of the ankle done on 12/14 were reviewed that show soft tissue irregularity with open wound. Bony irregularity seen at the distal fibula suggestive of acute osteomyelitis MRI of left ankle done 12/05 was reviewed Large wound with significant cellulitis overlying the lateral ankle. There is a 2.9 cm pocket of fluid deep to the wound which likely represents abscess. Packing material could appear similar but is considered less likely. Correlate clinically. The pocket of fluid to appears to communicated with the joint space. There is a large and complex appearing joint effusion. Septic arthritis at the ankle joint is the diagnosis of exclusion. There is marrow abnormality within the lateral malleolus that is highly suspicious for osteomyelitis. There is also erosion and probable osteomyelitis involving the anterior tibial plafond. Milder nonspecific marrow edema is also seen within the talus and calcaneus. This could be reactive. Infection is not excluded. There is significant complex fluid identified around the peroneal tendons and the flexure hallucis longus tendon. This is consistent with tenosynovitis and may be infectious. There is anterior subluxation/dislocation of the talus.
[2022-12-15] MEDS: VANCOMYCIN HCL 750 MG in SODIUM CHLORIDE 0.9% 250 ML IV SCH (11:51)
--- NOTE | 2022-12-15 12:20 | Hospitalist Progress Note ---
Date of Service December 15, 2022 Assessment & Plan (1) Diabetic ulcer of left ankle: (2) Osteomyelitis of ankle: Plan: Patient is 57-year-old male with PMH DM I, diabetic neuropathy presented to ER for ongoing left ankle ulcer 12/05/22 Left Ankle MRI: 1. Significant motion compromised examination. 2. Large wound with significant cellulitis overlying the lateral ankle. 3. There is a 2.9 cm pocket of fluid deep to the wound which likely represents abscess. Packing material could appear similar but is considered less likely. Correlate clinically. 4. The pocket of fluid to appears to communicated with the joint space. There is a large and complex appearing joint effusion. Septic arthritis at the ankle joint is the diagnosis of exclusion. 5. There is marrow abnormality within the lateral malleolus that is highly suspicious for osteomyelitis. There is also erosion and probable osteomyelitis involving the anterior tibial plafond. 6. Milder nonspecific marrow edema is also seen within the talus and calcaneus. This could be reactive. Infection is not excluded. 7. There is significant complex fluid identified around the peroneal tendons and the flexure hallucis longus tendon. This is consistent with tenosynovitis and may be infectious. 8. There is anterior subluxation/dislocation of the talus. In ER vitals stable. No leukocytosis, lactate WNL, procalcitonin: 0.23 Left ankle x-ray: Lateral ankle wound with associated soft tissue swelling. Indistinctness of the cortex of the fibular tip suggestive of acute osteomyelitis, as shown on MRI of December 05, 2022. No acute fractures. Orthopedic evaluated the patient; recommend vascular surgery consult and ankle foot surgery referral. We will obtain arterial Doppler of bilateral lower extremities; vascular surgery consult based on results of the scan Currently on cefepime, vancomycin and Flagyl. We will get podiatry on board for possible debridement. Infectious disease on board; will follow recommendation Obtain ESR, CRP. (3) Diabetes mellitus type 1: Plan: A1c: 9.0% Continue basal bolus insulin Glycemic pharmacy consult (4) CKD (chronic kidney disease), stage III: Plan: CKD III-IV Labs reviewed; creatinine at baseline. Continue on oral bicarb Monitor renal functions, avoid nephrotoxic agents when possible (5) Dyslipidemia: Plan: Continue atorvastatin (6) Chronic hyponatremia: Plan: Labs reviewed; sodium of 131 today. -Continue sodium bicarb tabs (7) Chronic anemia: Plan: Anemia CKD Hgb: 11.5. On Epogen weekly Continue vitamin B12, folic acid (8) Chronic hyperkalemia: Plan: K: 4.7 On Veltassa (9) Hypothyroidism: Plan: Continue levothyroxine (10) Depression: Plan: Continue fluoxetine (11) Chronic nausea: Plan: Continue PPI, Reglan DVT Prophylaxis heparin Full Code as per discussion with pt Time spent evaluating patient, direct bedside care, chart review, placing orders, interpretation of diagnostic studies, discussion with consultants, patient, and family members, as well as other required patient management activities is 60 minutes. Please note the above document was generated using voice recognition software. It may contain grammatical, syntax or spelling errors. Any formal questions or concerns about the content, text or information contained within the body of this dictation should be directly addressed to the provider for clarification Admission and Anticipated Discharge Date Admission Date: December 14, 2022 Subjective Patient seen and examined at bedside. Is comfortably lying in the bed; not in any distress. Denies pain or discomfort. Vital stable. Afebrile Review of Systems Review of Systems: All systems reviewed & are unremarkable except as noted in Subjective Physical Exam Physical Exam: Constitutional: WD/WN, vitals as above, NAD, sitting up in bed, pleasant, conversing easily Respiratory: normal respiratory effort, lungs clear to auscultation, no wheeze, rales, rhonchi. Normal insp/exp effort, no accessory muscle use Cardiovascular: RRR, no murmur, no edema Vessels: no JVD or carotid bruit Chest: normal inspection of chest Abdomen: normal bowel sounds, soft, nontender, no hepatosplenomegaly Musculoskeletal: Left ankle; lateral malleolus with ulcer with mild surrounding erythema. Also, scant purulent discharge. Dorsal pedis not able to be palpated. Skin: no rashes, warm and dry normal turgor Neurologic: Grossly intact. Decreased sensation in bilateral lower extremities. Chronic. Psychiatric: A+Ox3, euthymic affect Lymphatic: no cervical or axillary lymphadenopathy : deferred Results & Data Results & Data Vital Signs (Past 12 Hours) Vital Signs Temp Pulse Resp BP Pulse Ox O2 Del Method 12/15/22 07:20 36.6 C 78 16 159/89 H 97 Room Air Laboratory Results Laboratory Results WBC 7.93 K/ul (4.8-10.8) 12/15/22 08: RBC 4.31 M/uL (4.70-6.10) L 12/15/22 08:22 Hgb 11.5 g/dl (14.0-18.0) L 12/15/22 08:22 Hct 36.1 % (42.0-52.0) L 12/15/22 08:22 MCV 83.8 fL (80.0-100.0) 12/15/22 08:22 MCH 26.7 pg (25.0-34.0) 12/15/22 08: MCHC 31.9 g/dL (32.0-36.0) L 12/15/22 08: RDW Std Deviation 50.7 fL (36.4-46.3) H 12/15/22 08:22 RDW Coeff of Minnie 16.6 % (11.5-14.5) H 12/15/22 08:22 Plt Count 427 K/uL (130-400) H 12/15/22 08:22 MPV 8.7 fL (9.4-12.4) L 12/15/22 08:22 Immature Gran % (Auto) 0.4 % 12/14/22 17:00 Neut % (Auto) 70.7 % 12/14/22 17:00 Lymph % (Auto) 12.5 % 12/14/22 17:00 [place] % (Auto) 14.9 % 12/14/22 17:00 Eos % (Auto) 0.7 % 12/14/22 17:00 Baso % (Auto) 0.8 % 12/14/22 17:00 Neut # (Auto) 7.39 K/uL (1.40-6.50) H 12/14/22 17:00 Lymph # (Auto) 1.30 K/uL (1.2-3.4) 12/14/22 17:00 [place] # (Auto) 1.56 K/uL (0.11-0.59) H 12/14/22 17:00 Eos # (Auto) 0.07 K/uL (0-0.50) 12/14/22 17:00 Baso # (Auto) 0.08 K/uL (0-0.2) 12/14/22 17:00 Immature Gran # (Auto) 0.04 K/uL (0.01-0.20) 12/14/22 17:00 Sodium 131 mmol/L (136-145) L 12/15/22 08:22 Potassium 4.7 mmol/L (3.5-5.1) 12/15/22 08:22 Chloride 103 mmol/L (98-107) 12/15/22 08:22 Carbon Dioxide 22 mmol/L (21-32) 12/15/22 08:22 Anion Gap 6 (3-11) 12/15/22 08:22 BUN 27 mg/dl (6-23) H 12/15/22 08:22 Creatinine 2.08 mg/dl (0.6-1.4) H D 12/15/22 08:22 Est Cr Clr Drug Dosing 37.6 ml/min 12/15/22 08:22 Est GFR ( Amer) 39.5 ml/min 12/15/22 08:22 Est GFR (Non-Af Amer) 34.1 ml/min 12/15/22 08:22 BUN/Creatinine Ratio 13.0 (10-20) 12/15/22 08:22 Glucose 172 mg/dl (70-99(Fasting)) H 12/15/22 08:22 POC Glucose 114 mg/dl (70-99) H 12/15/22 12:05 Estimat Average Glucose 212 mg/dl 12/15/22 08:22 Hemoglobin A1c 9.0 % (4.5-5.6) H 12/15/22 08:22 Lactate 1.1 mmol/L (0.4-2.0) 12/14/22 17:00 Calcium 8.1 mg/dl (8.6-10.3) L 12/15/22 08:22 Magnesium 1.7 mg/dl (1.7-2.4) 12/14/22 17:00 Total Bilirubin 0.6 mg/dl (0.2-1.0) 12/14/22 17:00 Direct Bilirubin 0.1 mg/dl (0-0.2) 12/14/22 17:00 AST 17 U/L (13-39) 12/14/22 17:00 ALT 15 U/L (7-52) 12/14/22 17:00 Alkaline Phosphatase 96 U/L (34-104) 12/14/22 17:00 Total Protein 7.2 gm/dl (6.0-8.3) 12/14/22 17:00 Albumin 3.0 gm/dl (3.4-5.0) L 12/14/22 17:00 Procalcitonin 0.23 ng/ml (0-0.5) 12/14/22 17:00 Nasal Screen MRSA (PCR) Negative (Negative) 12/14/22 22:40 Random Vancomycin 14.2 mcg/ml (10-20) 12/15/22 08:22 SARS-CoV-2, RNA, NAAT NEGATIVE (NEGATIVE) 12/14/22 20:23 Impressions Ankle X-Ray 12/14/22 16:58 XR ankle LT min 3V routine CLINICAL HISTORY: Possible osteomyelitis. COMPARISON: Left ankle MRI December 05, 2022. FINDINGS: Note is made of trace soft tissue defect consistent with wound of the left ankle. There is associated soft tissue swelling. A locule of soft tissue gas is present. There is slight indistinctness of the cortex of the fibular tip with a small adjacent 4 mm bone fragment. Talar dome is intact. No additional sites of bony erosion are identified. Moderate vascular calcification is incidentally noted. No acute fractures. IMPRESSION: 1. Lateral ankle wound with associated soft tissue swelling. 2. Indistinctness of the cortex of the fibular tip suggestive of acute osteomyelitis, as shown on MRI of December 05, 2022. 3. No acute fractures. ACT 112: Negative or not required by law. Electronically signed by: Wong Lazaro M.D. 12/14/2022 6:51 PM
--- NOTE | 2022-12-15 13:04 | Pharmacy Report ---
Pharmacy PK ABX Note - Date of Service December 15, 2022 - Assessment and Plan Assessment * Mr Fitch is a 57 year old incarcerated M receiving vancomycin, cefepime, metronidazole for treatment of L ankle cellulitis/abscess/osteo. * PMH includes DM w/ severe neuropathy, CKD (baseline SCr ~2.5-3) * Blood and ankle cultures pending * Infectious disease has been consulted, awaiting recs * Random vanc level was obtained this morning, in the setting of poor renal function. Level used in guiding maintenance dosing. Plan Vancomycin * Loading dose: 1750 mg IV x 1 * Maintenance dose: 750 mg IV every 24 hours * Regimen is predicted to achieve target AUC/LINN of 400-600 mg/L.hr * Will check another vanc level in 1-2 days, if patient remains hospitalized and on vanc therapy. Pharmacy will continue to follow and will adjust dose/frequency as necessary. Thank you. Pharmacy has transitioned to AUC monitoring for vancomycin. AUC/LINN is the preferred PK/PD target and is associated with decreased risk of nephrotoxicity compared to traditional trough targets.
--- NOTE | 2022-12-15 13:22 | Pharmacy Report ---
Pharmacy Glycemic Short Note 2 - Date of Service December 15, 2022 - Glycemic Short BSG Results (Last 24 hours): 12/14/22 12/14/22 12/15/22 17:00 22:07 08:13 Glucose 84 POC Glucose 95 167 H 12/15/22 12/15/22 08:22 12:05 Glucose 172 H POC Glucose 114 H OUTPATIENT ANTIDIABETIC REGIMEN: * Lantus 15 units SQ qAM * Novolin-R 2 units SQ BID plus sliding scale * HbA1c: 9.0% (12/15/22) ASSESSMENT: * Mr Fitch is a 57 year old incarcerated M admitted for treatment of L ankle cellulitis/abscess/osteo. * PMH is significant for CKD, significant DM neuropathy, type 1 DM * Lantus dose split into BID dosing for admission, in case pt would become NPO for any procedures. Ortho has been consulted and no procedures are scheduled at this time. Waiting for eval from podiatry and vascular surgery. * Pharmacy will continue to follow and adjust regimen as indicated. PLAN FOR INPATIENT GLYCEMIC CONTROL: * Basal insulin * Lantus 7 units SQ BID * Bolus insulin * NovoLog per scale ACHS or Q6hrs while NPO * Goal Range: Low 110 mg/dL - High 140 mg/dL * Correction Factor: 55 mg/dL/unit * Nutritional / Prandial insulin per carb ratio of 1 unit per 18 grams CHO consumed
[2022-12-15] MEDS: HEPARIN SOD 5,000 UNIT/0.5 ML VIAL SQ SCH ×2 (15:47→21:12)
--- NOTE | 2022-12-15 16:02 | Ultrasound Report ---
US arterial duplex LE BI CLINICAL HISTORY: concern for peripheral vascular disease. Lower extremity pain. COMPARISON STUDY: None. FINDINGS: Scattered calcified plaque seen throughout the bilateral lower extremity arterial systems. There are normal biphasic to triphasic waveforms seen within the bilateral common femoral, superficia l femoral, and right popliteal arteries. Biphasic to monophasic waveforms seen within the right calf arteries. No evidence for arterial occlusion. Monophasic waveforms left popliteal artery. Monophasic waveforms seen within the left calf arteries. Focal elevated peak soft velocities within the bilatera l peroneal arteries consistent with areas of hemodynamically significant stenosis. IMPRESSION: 1. Focal areas of hemodynamically significant stenosis in the bilateral peroneal arteries. 2. No evidence for arterial occlusion. 3. Scattered calcified plaque with monophasic waveforms within the left popliteal artery, bilateral c chaitanya arteries, and bilateral dorsalis pedis arteries consistent with diffuse atherosclerotic disease. ACT 112: Negative or not required by law. Electronically signed by: Tani Contreras M.D. 12/15/2022 4:00 PM
[2022-12-15] MEDS: TAMSULOSIN HCL 0.4 MG CAP PO SCH (21:11)
[2022-12-15] MEDS: ATORVASTATIN 40 MG TAB PO SCH (21:11)
--- NOTE | 2022-12-15 23:03 | Orthopedic Consultation ---
Date of Consultation December 15, 2022 Assessment & Plan (1) Ulcer of left ankle: Patient seen, evaluated, and treated. Discussed incision and drainage, Left wound debridement, bone biopsy and debridement all left ankle with Patient. Awaiting vascular consult prior to intervention. (2) Osteomyelitis: (3) Osteomyelitis of ankle: History of Present Illness Attending Physician: Benji Fontana MD History of Present Illness Patient is an incarcerated, 57-year-old, type I diabetic male seen at bedside for Left ankle ulcer. Patient has a past medical history of type I diabetes, diabetic neuropathy, HTN, dyslipidemia CKD III, chronic anemia, chronic hyponatremia, chronic hypokalemia, hypothyroidism, depression, chronic nausea vomiting, psoriasis, and left ankle diabetic ulcer. Patient presented to [facility] ER for left ankle ulcer. Patient has been following with [facility] wound clinic for an ongoing left ankle ulcer. 12/05/2022 left ankle MRI showed 2.9 cm pocket of fluid deep to the wound which likely represents abscess, pocket of fluid to appears to communicated with the joint space, large and complex appearing joint effusion, marrow abnormality within the lateral malleolus that is highly suspicious for osteomyelitis and erosion and probable osteomyelitis involving the anterior tibial plafond. Allergies Allergy/AdvReac Type Severity Reaction Status Date / Time sodium chloride AdvReac Unknown CONTRAINDIC Verified 11/21/22 09:44 [From [place] Nasal] ATED. OC SPRAY AdvReac CONTRINDICA Uncoded 11/21/22 09:44 ATION Home Medications Medication Instructions Recorded Confirmed Type Lactobacillus acidophilus 1 tab PO TIDM 03/05/22 12/14/22 History (Acidophilus chewable tablet) alendronate 70 mg tablet 70 mg PO WK 03/05/22 12/14/22 History aspirin 81 mg tablet,delayed 81 mg PO QAM 03/05/22 12/14/22 History release ergocalciferol (vitamin D2) 50 mcg 50 mcg PO WK 03/05/22 12/14/22 History (2,000 unit) capsule fluoxetine 20 mg capsule 40 mg PO QAM 03/05/22 12/14/22 History hydroxyzine pamoate 50 mg capsule 50 mg PO HS 03/05/22 12/14/22 History insulin glargine 100 unit/mL 15 unit subcut QAM 03/05/22 12/14/22 History subcutaneous solution insulin regular human 100 unit/mL 2 unit subcut BID 03/05/22 12/14/22 History injection solution (Novolin R Regular U-100 Insulin) levothyroxine 150 mcg tablet 150 mcg PO DAILYBB 03/05/22 12/14/22 History metoclopramide HCl 10 mg tablet 10 mg PO ACHS 03/05/22 12/14/22 History ondansetron 8 mg disintegrating 8 mg PO TID 03/05/22 12/14/22 History tablet pantoprazole 40 mg tablet,delayed 40 mg PO BID 03/05/22 12/14/22 History release patiromer calcium sorbitex 25.2 25.2 g PO .DAILY @ 03:45 03/05/22 12/14/22 History gram oral powder packet (Veltassa) tamsulosin 0.4 mg capsule 0.4 mg PO HS 03/05/22 12/14/22 History vitamin B complex with C-folic 1 tab PO DAILY 03/05/22 12/14/22 History acid 0.8 mg-zinc citrate 50 mg tablet (Dialyvite 800 with Zinc 50) cyanocobalamin (vitamin B-12) 100 100 mcg PO QAM #30 tabs 03/06/22 12/14/22 Rx mcg tablet (Vitamin B-12) folic acid 1 mg tablet 1 mg PO QAM #30 tabs 03/06/22 12/14/22 Rx epoetin sanchez 10,000 unit/mL 10,000 unit subcut WK 11/21/22 12/14/22 History injection solution (Epogen) ascorbic acid (vitamin C) 500 mg 500 mg PO QAM 12/14/22 12/14/22 History tablet (Vitamin C) atorvastatin 40 mg tablet 40 mg PO PM 12/14/22 12/14/22 History insulin regular human 100 unit/mL 1 sliding scale dose subcut 12/14/22 12/14/22 History injection solution (Novolin R USEASDIRECTD PRN Hyperglycemia Regular U-100 Insulin) sodium bicarbonate 650 mg tablet 650 mg PO BID 12/14/22 12/14/22 History Patient History Medical History Chronic anemia Chronic hyperkalemia Chronic hyponatremia Chronic nausea CKD (chronic kidney disease) Diabetes mellitus type 1 Hypothyroidism Non-STEMI (non-ST elevated myocardial infarction) NSTEMI (non-ST elevated myocardial infarction) Orthostatic hypotension on chronic fludrocortisone Proteinuria Psoriasis Surgical History Status post right foot surgery Family History Other Heart disease Social History Smoking Status: Never smoker Tobacco Type: Cigarettes Cigarettes Per Day: 1 ppd; Second Hand Exposure: No; Do You Dip or Chew Tobacco: No; Hx Alcohol Use: No Hx Substance Use: No Preferred Language: Czech Communication Ability: Effective Visual Impairment: No Limitations Inspector Open Die Required: No Beliefs That Will Affect Care: None Current Living Situation: Other Current Living Situation Comment: inmate Other Information That Helps Us Care for You: No Feels Safe at Home: Yes Safety Concerns: Feels Safe At This Time Assistive Devices: None Review of Systems Review of Systems: All systems reviewed & are unremarkable except as noted in HPI & below Physical Exam Constitutional: cooperative and comfortable Eyes: normal visual case by confrontation Neck: trachea midline Respiratory: normal respiratory effort Cardiovascular: Non palpable pedal pulses. Delayed SHOE CLEANER left foot Musculoskeletal: No gross deformities Skin: + ulcer (Left ankle full thickness wound appoximately 2 x 2 x 2cm) Results & Data Vital Signs (Past 12 Hours) Vital Signs Temp Pulse Resp BP Pulse Ox O2 Del Method 12/15/22 22:31 36.5 C 80 16 128/78 98 Room Air 12/15/22 15:48 36.4 C L 77 16 165/90 H 98 Room Air Diagnostic Findings XR ankle LT min 3V routine CLINICAL HISTORY: Possible osteomyelitis. COMPARISON: Left ankle MRI December 05, 2022. FINDINGS: Note is made of trace soft tissue defect consistent with wound of the left ankle. There is associated soft tissue swelling. A locule of soft tissue gas is present. There is slight indistinctness of the cortex of the fibular tip with a small adjacent 4 mm bone fragment. Talar dome is intact. No additional sites of bony erosion are identified. Moderate vascular calcification is incidentally noted. No acute fractures. IMPRESSION: 1. Lateral ankle wound with associated soft tissue swelling. 2. Indistinctness of the cortex of the fibular tip suggestive of acute osteomyelitis, as shown on MRI of December 05, 2022. 3. No acute fractures. ACT 112: Negative or not required by law. Electronically signed by: Wong Lazaro M.D. 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
[2022-12-16] MEDS: metroNIDAZOLE 500 MG/100 ML BAG IV SCH ×2 (02:25→09:24)
[2022-12-16] MEDS: PATIROMER CALCIUM SORBITEX 8.4 GM PACK PO SCH ×2 (04:10→23:23)
[2022-12-16] MEDS: LEVOTHYROXINE SODIUM 150 MCG TABLET PO SCH (05:38)
[2022-12-16] MEDS: HEPARIN SOD 5,000 UNIT/0.5 ML VIAL SQ SCH ×2 (05:38→12:55)
--- NOTE | 2022-12-16 05:57 | Electrocardiogram Report ---
Test Reason : Blood Pressure : / mmHG Vent. Rate : 080 BPM Atrial Rate : 080 BPM P-R Int : 118 ms QRS Dur : 080 ms QT Int : 384 ms P-R-T Axes : 078 024 070 degrees QTc Int : 442 ms Normal sinus rhythm Normal ECG When compared with ECG of 05-MAR-2022 10:12, No significant change Confirmed by Tejas Noland ([id number]) on 12/16/2022 5:57:11 AM Referred By: [facility] Confirmed By:Tejas Noland
[2022-12-16] MEDS: CEFEPIME 1,000 MG in SYRINGE 0 ML IV SCH ×2 (05:59→17:53)
[2022-12-16 07:54] LABS: Basophils # (auto) 0.13 K/uL (0-0.2); Basophils % (auto) 1.9 %; Eosinophils % (auto) 5.9 %; Immature Granulocytes # (auto) 0.03 K/uL (0.01-0.20); Immature Granulocytes % (auto) 0.4 %; Lymphocytes # (auto) 1.39 K/uL (1.2-3.4); Lymphocytes % (auto) 20.4 %; Mean Corpuscular Hgb Conc 32.4 g/dL (32.0-36.0); Mean Corpuscular Volume 83.1 fL (80.0-100.0); Mean Platelet Volume 8.8 fL (9.4-12.4); Monocytes # (auto) 0.73 K/uL (0.11-0.59); Monocytes % (auto) 10.7 %; Neutrophils # (auto) 4.15 K/uL (1.40-6.50); Neutrophils % (auto) 60.7 %; Platelet Count 431 K/uL (130-400); RDW Coefficient of Variation 16.7 % (11.5-14.5); RDW Standard Deviation 50.4 fL (36.4-46.3); Red Blood Count 4.45 M/uL (4.70-6.10); White Blood Count 6.83 K/ul (4.8-10.8)
[2022-12-16] MEDS: PANTOprazole 40 MG TAB PO SCH ×2 (07:59→20:42)
[2022-12-16] MEDS: METOCLOPRAMIDE HCL 10 MG TABLET PO SCH ×4 (07:59→20:42)
[2022-12-16] MEDS: FLUoxetine HCL 20 MG CAP PO SCH (08:00)
[2022-12-16] MEDS: FOLIC ACID 1 MG TAB PO SCH (08:00)
[2022-12-16] MEDS: ADVANCED PROBIOTIC 1250 MG CAPSULE PO SCH ×3 (08:00→17:52)
[2022-12-16] MEDS: SODIUM BICARBONATE 650 MG TAB PO SCH ×2 (08:00→20:42)
[2022-12-16] MEDS: NEPHROCAPS PO SCH (08:00)
[2022-12-16] MEDS: ZINC SULFATE 220 MG CAPSULE PO SCH (08:00)
[2022-12-16] MEDS: CYANOCOBALAMIN (B-12) 100 MCG TABLET PO SCH (08:01)
[2022-12-16 08:16] LABS: BUN Creatinine Ratio 12.1 (10-20); C Reactive Protein 8.18 mg/dl (0-0.5); Calcium 8.1 mg/dl (8.6-10.3); Creatinine Clr Calc Pharmacy 32.7 ml/min; Est GFR (African American) 33.4 ml/min; Est GFR (Non-African American) 28.8 ml/min; Potassium 4.7 mmol/L (3.5-5.1)
[2022-12-16] MEDS: INSULIN ASPART PER UNIT CHARGE SC SCH ×4 (09:20→20:43)
[2022-12-16] MEDS: LANTUS PER UNIT CHARGE SQ SCH ×2 (09:21→20:44)
--- NOTE | 2022-12-16 10:03 | Anesthesiology Consultation ---
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 OC SPRAY AdvReac CONTRINDICA Uncoded 11/21/22 09:44 ATION Medications Home Medications Medication Instructions Recorded Confirmed Last Taken Lactobacillus acidophilus 1 tab PO TIDM 03/05/22 12/14/22 12/14/22 11:00 (Acidophilus chewable tablet) alendronate 70 mg tablet 70 mg PO WK 03/05/22 12/14/22 12/13/22 aspirin 81 mg tablet,delayed 81 mg PO QAM 03/05/22 12/14/22 12/14/22 release ergocalciferol (vitamin D2) 50 mcg 50 mcg PO WK 03/05/22 12/14/22 12/08/22 (2,000 unit) capsule fluoxetine 20 mg capsule 40 mg PO QAM 03/05/22 12/14/22 12/14/22 hydroxyzine pamoate 50 mg capsule 50 mg PO HS 03/05/22 12/14/22 12/13/22 insulin glargine 100 unit/mL 15 unit subcut QAM 03/05/22 12/14/22 12/14/22 07:00 subcutaneous solution insulin regular human 100 unit/mL 2 unit subcut BID 03/05/22 12/14/22 12/14/22 11:00 injection solution (Novolin R Regular U-100 Insulin) levothyroxine 150 mcg tablet 150 mcg PO DAILYBB 03/05/22 12/14/22 12/14/22 metoclopramide HCl 10 mg tablet 10 mg PO ACHS 03/05/22 12/14/22 12/14/22 11:00 ondansetron 8 mg disintegrating 8 mg PO TID 03/05/22 12/14/22 12/14/22 11:00 tablet pantoprazole 40 mg tablet,delayed 40 mg PO BID 03/05/22 12/14/22 12/14/22 06:30 release patiromer calcium sorbitex 25.2 25.2 g PO .DAILY @ 03:45 03/05/22 12/14/22 12/14/22 gram oral powder packet (Rella) tamsulosin 0.4 mg capsule 0.4 mg PO HS 03/05/22 12/14/22 12/13/22 vitamin B complex with C-folic 1 tab PO DAILY 03/05/22 12/14/22 12/14/22 acid 0.8 mg-zinc citrate 50 mg tablet (Dialyvite 800 with Zinc 50) cyanocobalamin (vitamin B-12) 100 100 mcg PO QAM #30 tabs 03/06/22 12/14/22 12/14/22 mcg tablet (Vitamin B-12) folic acid 1 mg tablet 1 mg PO QAM #30 tabs 03/06/22 12/14/22 12/14/22 epoetin sanchez 10,000 unit/mL 10,000 unit subcut WK 11/21/22 12/14/22 12/09/22 injection solution (Epogen) ascorbic acid (vitamin C) 500 mg 500 mg PO QAM 12/14/22 12/14/22 12/14/22 tablet (Vitamin C) atorvastatin 40 mg tablet 40 mg PO PM 12/14/22 12/14/22 12/13/22 insulin regular human 100 unit/mL 1 sliding scale dose subcut 12/14/22 12/14/22 12/11/22 injection solution (Novolin R USEASDIRECTD PRN Hyperglycemia Regular U-100 Insulin) sodium bicarbonate 650 mg tablet 650 mg PO BID 12/14/22 12/14/22 12/14/22 06:30 Active Medications Generic Name Dose Route Start Last Admin Trade Name Freq PRN Reason Stop Dose Admin Acetaminophen 650 mg 12/14/22 22:20 12/16/22 06:07 Acetaminophen 325 Mg Tab PO 01/13/23 22:19 650 mg Q4H PRN Administration pain/fever Atorvastatin Calcium 40 mg 12/14/22 22:20 12/15/22 21:11 Atorvastatin 40 Mg Tab PO 01/13/23 22:19 40 mg PM MARY Administration Cyanocobalamin 100 mcg 12/15/22 09:00 12/16/22 08:01 Cyanocobalamin (B-12) 100 Mcg Tablet PO 01/14/23 08:59 100 mcg QAM MARY Administration Fluoxetine HCl 40 mg 12/15/22 09:00 12/16/22 08:00 Fluoxetine Hcl 20 Mg Cap PO 01/14/23 08:59 40 mg QAM MARY Administration Folic Acid 1 mg 12/15/22 09:00 12/16/22 08:00 Folic Acid 1 Mg Tab PO 01/14/23 08:59 1 mg QAM MARY Administration Heparin Sodium (Porcine) 5,000 units 12/15/22 14:00 12/16/22 05:38 Heparin Sod 5,000 Unit/0.5 Ml Vial SQ 01/14/23 13:59 5,000 units Q8 MARY Administration Cefepime HCl 1,000 mg/ Syringe 10 mls @ 5 mls/min 12/15/22 06:00 12/16/22 05:59 IV 01/26/23 05:59 5 mls/min Q12H MARY Administration Protocol Metronidazole 500 mg in 100 mls @ 100 mls/hr 12/15/22 02:00 12/16/22 09:24 Flagyl IV 01/26/23 01:59 100 mls/hr Q8H MARY Administration Protocol Vancomycin HCl 750 mg/ Sodium 265 mls @ 200 mls/hr 12/15/22 10:00 12/15/22 13:15 Chloride IV 01/26/23 09:59 Infused Q24H MARY Infusion Protocol Insulin Aspart 0 units 12/14/22 22:20 12/16/22 09:20 Insulin Aspart Per Unit Charge SC 01/13/23 22:19 1 units ACHS MARY Administration Insulin Glargine 7 units 12/15/22 09:00 12/16/22 09:21 Lantus Per Unit Charge SQ 01/14/23 08:59 7 units BID MARY Administration Lactobacillus Acidophilus 2 cap 12/15/22 08:00 12/16/22 08:00 Advanced Probiotic 1250 Mg Capsule PO 01/14/23 07:59 2 cap TIDM MARY Administration Levothyroxine Sodium 150 mcg 12/15/22 06:30 12/16/22 05:38 Levothyroxine Sodium 150 Mcg Tablet PO 01/14/23 06:29 150 mcg DAILYBB MARY Administration Metoclopramide HCl 10 mg 12/14/22 22:20 12/16/22 07:59 Metoclopramide Hcl 10 Mg Tablet PO 01/13/23 22:19 10 mg ACHS MARY Administration Pantoprazole Sodium 40 mg 12/14/22 22:20 12/16/22 07:59 Pantoprazole 40 Mg Tab PO 01/13/23 22:19 40 mg BID MARY Administration Patiromer 25.2 gm 12/15/22 03:45 12/16/22 04:10 Patiromer Calcium Sorbitex 8.4 Gm Pack PO 01/14/23 03:44 Not Given DAILY@0345 MARY Sodium Bicarbonate 650 mg 12/14/22 22:20 12/16/22 08:00 Sodium Bicarbonate 650 Mg Tab PO 01/13/23 22:19 650 mg BID MARY Administration Tamsulosin HCl 0.4 mg 12/14/22 22:20 12/15/22 21:11 Tamsulosin Hcl 0.4 Mg Cap PO 01/13/23 22:19 0.4 mg HS MARY Administration Vitamin B Complex/Folic Acid 1 cap 12/15/22 09:00 12/16/22 08:00 Nephrocaps PO 01/14/23 08:59 1 cap DAILY MARY Administration Zinc Sulfate 220 mg 12/15/22 09:00 12/16/22 08:00 Zinc Sulfate 220 Mg Capsule PO 01/14/23 08:59 220 mg QAM MARY Administration Past Medical History Medical History Chronic anemia Chronic hyperkalemia Chronic hyponatremia Chronic nausea CKD (chronic kidney disease) Diabetes mellitus type 1 Hypothyroidism Non-STEMI (non-ST elevated myocardial infarction) NSTEMI (non-ST elevated myocardial infarction) Orthostatic hypotension on chronic fludrocortisone Proteinuria Psoriasis Past Family History Family History Other Heart disease Past Surgical History Surgical History Status post right foot surgery Social History Smoking Status: Never smoker tobacco type: cigarettes Smoking cigarettes per day: 1 ppd Do You Dip or Chew Tobacco: No Hx Alcohol Use: No Hx Substance Use: No substance use type: does not use Physical Exam Vital Signs Last Vital Signs Temp 98.4 F 12/16/22 07:37 Pulse 82 12/16/22 07:37 Resp 16 12/16/22 07:37 BP 147/89 H 12/16/22 07:37 Pulse Ox 96 12/16/22 07:37 O2 Del Method Room Air 12/16/22 07:37 Testing Laboratory Results 12/16/22 07:37 12/16/22 07:37 Hemoglobin A1c 9.0 % (4.5-5.6) H 12/15/22 08:22 12/14/22 17:00 Aerobic Blood Culture - Preliminary Blood No growth in Aerobic bottle after 24 hours. Anaerobic Blood Culture - Preliminary No growth in Anaerobic bottle after 24 hours. 12/14/22 17:54 Aerobic Blood Culture - Preliminary Blood No growth in Aerobic bottle after 24 hours. Anaerobic Blood Culture - Preliminary No growth in Anaerobic bottle after 24 hours. 12/14/22 17:00 Gram Stain - Final Ankle,Left Aerobic and Anaerobic Culture - Preliminary Pin-point growth present, reincubating. 12/16/22 07:50 POC Glucose 127 H Electrocardiogram Date: 12/14/22 Findings: + NSR @ (80 bpm) Echocardiogram Date: 06/30/20 Normal LV chamber size with mild concentric LVH Normal LV systolic function, EF 55-60% No segmental wall motion abnormalities Grade 2 diastolic dysfunction
[2022-12-16] MEDS: VANCOMYCIN HCL 750 MG in SODIUM CHLORIDE 0.9% 250 ML IV SCH (10:34)
--- NOTE | 2022-12-16 15:47 | Consultation ---
Date of Consultation December 16, 2022 Assessment & Plan (1) Osteomyelitis: This gentleman has mild occlusive disease of the left lower extremity. No intervention is required at this point in time to improve the flow in the left lower extremity. Thank you very much for letting us participate in the care of this patient. Laterality: left Osteomyelitis location: ankle Osteomyelitis type: unspecified type Qualified Code(s): M86.9 - Osteomyelitis, unspecified History of Present Illness Reason for Consultation: Osteo of left ankle Attending Physician: Benji Fontana MD History of Present Illness Mr. Fitch is 57-year-old male with DM I, diabetic neuropathy, HTN, CKD III, and dyslipidemia who presented with a left ankle diabetic ulcer which has been present for some time. Has been following with [facility] wound clinic. Imaging showed a collection of fluid at the ankle joint and bony changes consistent with osteo of the left ankle. He denies any claudication or rest pain of the lower extremities. Denies fever/chills, diaphoresis, worsening nausea, V/D/C, CABRERA, dizziness, syncope, vision changes, neck pain, CP, SOB, palpitations, cough, sore throat, rhinorrhea, abdominal pain, paresthesias, extremity weakness, extremity edema, urinary symptoms. Allergies Allergy/AdvReac Type Severity Reaction Status Date / Time sodium chloride AdvReac Unknown CONTRAINDIC Verified 11/21/22 09:44 [From [place] Nasal] ATED. OC SPRAY AdvReac CONTRINDICA Uncoded 11/21/22 09:44 ATION Home Medications Medication Instructions Recorded Confirmed Type Lactobacillus acidophilus 1 tab PO TIDM 03/05/22 12/14/22 History (Acidophilus chewable tablet) alendronate 70 mg tablet 70 mg PO WK 03/05/22 12/14/22 History aspirin 81 mg tablet,delayed 81 mg PO QAM 03/05/22 12/14/22 History release ergocalciferol (vitamin D2) 50 mcg 50 mcg PO WK 03/05/22 12/14/22 History (2,000 unit) capsule fluoxetine 20 mg capsule 40 mg PO QAM 03/05/22 12/14/22 History hydroxyzine pamoate 50 mg capsule 50 mg PO HS 03/05/22 12/14/22 History insulin glargine 100 unit/mL 15 unit subcut QAM 03/05/22 12/14/22 History subcutaneous solution insulin regular human 100 unit/mL 2 unit subcut BID 03/05/22 12/14/22 History injection solution (Novolin R Regular U-100 Insulin) levothyroxine 150 mcg tablet 150 mcg PO DAILYBB 03/05/22 12/14/22 History metoclopramide HCl 10 mg tablet 10 mg PO ACHS 03/05/22 12/14/22 History ondansetron 8 mg disintegrating 8 mg PO TID 03/05/22 12/14/22 History tablet pantoprazole 40 mg tablet,delayed 40 mg PO BID 03/05/22 12/14/22 History release patiromer calcium sorbitex 25.2 25.2 g PO .DAILY @ 03:45 03/05/22 12/14/22 History gram oral powder packet (Veltassa) tamsulosin 0.4 mg capsule 0.4 mg PO HS 03/05/22 12/14/22 History vitamin B complex with C-folic 1 tab PO DAILY 03/05/22 12/14/22 History acid 0.8 mg-zinc citrate 50 mg tablet (Dialyvite 800 with Zinc 50) cyanocobalamin (vitamin B-12) 100 100 mcg PO QAM #30 tabs 03/06/22 12/14/22 Rx mcg tablet (Vitamin B-12) folic acid 1 mg tablet 1 mg PO QAM #30 tabs 03/06/22 12/14/22 Rx epoetin sanchez 10,000 unit/mL 10,000 unit subcut WK 11/21/22 12/14/22 History injection solution (Epogen) ascorbic acid (vitamin C) 500 mg 500 mg PO QAM 12/14/22 12/14/22 History tablet (Vitamin C) atorvastatin 40 mg tablet 40 mg PO PM 12/14/22 12/14/22 History insulin regular human 100 unit/mL 1 sliding scale dose subcut 12/14/22 12/14/22 History injection solution (Novolin R USEASDIRECTD PRN Hyperglycemia Regular U-100 Insulin) sodium bicarbonate 650 mg tablet 650 mg PO BID 12/14/22 12/14/22 History Patient History Medical History Chronic anemia Chronic hyperkalemia Chronic hyponatremia Chronic nausea CKD (chronic kidney disease) Diabetes mellitus type 1 Hypothyroidism Non-STEMI (non-ST elevated myocardial infarction) NSTEMI (non-ST elevated myocardial infarction) Orthostatic hypotension on chronic fludrocortisone Proteinuria Psoriasis Surgical History Status post right foot surgery Family History Other Heart disease Social History Smoking Status: Never smoker Tobacco Type: Cigarettes Cigarettes Per Day: 1 ppd; Second Hand Exposure: No; Do You Dip or Chew Tobacco: No; Hx Alcohol Use: No Hx Substance Use: No Preferred Language: Zambian Communication Ability: Effective Visual Impairment: No 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 Beliefs That Will Affect Care: None Current Living Situation: Other Current Living Situation Comment: inmate Other Information That Helps Us Care for You: No Feels Safe at Home: Yes Safety Concerns: Feels Safe At This Time Assistive Devices: None Review of Systems Review of Systems: All systems reviewed & are unremarkable except as noted in HPI & below Physical Exam Constitutional: WD/WN, vitals as above Respiratory: normal respiratory effort; no respiratory distress Cardiovascular: RRR, no murmur, no edema Heart Sounds: + cardiac rub Ves sels: femoral pulses present, posterior tibial pulses present and dorsalis pedis pulses present Extremities: normal capillary refill Gastrointestinal (Abdomen): Inspection/Auscultation: abdomen normal to inspection; abdomen not distended Percussion/Palpation: abdomen soft; abdomen nontender Musculoskeletal: no cyanosis or clubbing, extremities motor strength 5/5 Skin: + wound (dressing on left ankle wound) Neurologic: CN's II-XI intact bilaterally and deep tendon reflexes 2+ bilaterally Results & Data Vital Signs (Past 12 Hours) Vital Signs Temp Pulse Resp BP Pulse Ox O2 Del Method 12/16/22 15:12 36.6 C 73 16 118/74 97 Room Air 12/16/22 07:37 36.9 C 82 16 147/89 H 96 Room Air Diagnostic Findings arterial noninvasives shows biphasic waveforms below the knee on the left. The waveforms of the calf and foot are biphasic on the left. No definite occlusions are seen.
--- NOTE | 2022-12-16 16:00 | Hospitalist Progress Note ---
Date of Service December 16, 2022 Assessment & Plan (1) Diabetic ulcer of left ankle: (2) Osteomyelitis of ankle: Plan: Patient is 57-year-old male with PMH DM I, diabetic neuropathy presented to ER for ongoing left ankle ulcer 12/05/22 Left Ankle MRI: 1. Significant motion compromised examination. 2. Large wound with significant cellulitis overlying the lateral ankle. 3. There is a 2.9 cm pocket of fluid deep to the wound which likely represents abscess. Packing material could appear similar but is considered less likely. Correlate clinically. 4. The pocket of fluid to appears to communicated with the joint space. There is a large and complex appearing joint effusion. Septic arthritis at the ankle joint is the diagnosis of exclusion. 5. There is marrow abnormality within the lateral malleolus that is highly suspicious for osteomyelitis. There is also erosion and probable osteomyelitis involving the anterior tibial plafond. 6. Milder nonspecific marrow edema is also seen within the talus and calcaneus. This could be reactive. Infection is not excluded. 7. There is significant complex fluid identified around the peroneal tendons and the flexure hallucis longus tendon. This is consistent with tenosynovitis and may be infectious. 8. There is anterior subluxation/dislocation of the talus. In ER vitals stable. No leukocytosis, lactate WNL, procalcitonin: 0.23 Left ankle x-ray: Lateral ankle wound with associated soft tissue swelling. Indistinctness of the cortex of the fibular tip suggestive of acute osteomyelitis, as shown on MRI of December 05, 2022. No acute fractures. Superficial wound culture from earlier in November grew MSSA. ESR 76, CRP of 8.18 Orthopedic evaluated the patient; recommend vascular surgery consult and ankle foot surgery referral. Arterial Dopplers results reviewed; focal area of hemodynamically significant stenosis in bilateral peroneal arteries. No evidence of arterial occlusion. Podiatry to do I&D tomorrow. Discussed with infectious disease. Based on the culture results from earlier in November; recommended to stop vancomycin and flagyl, continue cefepime. If Intra-Op culture is MSSA only; plan for cefazolin for 6 weeks. (3) Diabetes mellitus type 1: Plan: A1c: 9.0% Continue basal bolus insulin Glycemic pharmacy consult (4) CKD (chronic kidney disease), stage III: Plan: CKD III-IV Labs reviewed; creatinine at baseline. Continue on oral bicarb Monitor renal functions, avoid nephrotoxic agents when possible (5) Dyslipidemia: Plan: Continue atorvastatin (6) Chronic hyponatremia: Plan: Labs reviewed; sodium of 133 today. -Continue sodium bicarb tabs (7) Chronic anemia: Plan: Anemia CKD Hgb: 11.5. On Epogen weekly Continue vitamin B12, folic acid (8) Chronic hyperkalemia: Plan: K: 4.7 On Veltassa (9) Hypothyroidism: Plan: Continue levothyroxine (10) Depression: Plan: Continue fluoxetine (11) Chronic nausea: Plan: Continue PPI, Reglan DVT Prophylaxis heparin Full Code as per discussion with pt Please note the above document was generated using voice recognition software. It may contain grammatical, syntax or spelling errors. Any formal questions or concerns about the content, text or information contained within the body of this dictation should be directly addressed to the provider for clarification Admission and Anticipated Discharge Date Admission Date: December 14, 2022 Subjective Patient seen and examined at bedside. He is comfortable; not in distress. Afebrile, normotensive and saturating well on room air. Review of Systems Review of Systems: All systems reviewed & are unremarkable except as noted in Subjective Physical Exam Physical Exam: Constitutional: WD/WN, vitals as above, NAD, sitting up in bed, pleasant, conversing easily Respiratory: normal respiratory effort, lungs clear to auscultation, no wheeze, rales, rhonchi. Normal insp/exp effort, no accessory muscle use Cardiovascular: RRR, no murmur, no edema Vessels: no JVD or carotid bruit Chest: normal inspection of chest Abdomen: normal bowel sounds, soft, nontender, no hepatosplenomegaly Musculoskeletal: Left ankle; lateral malleolus with ulcer with mild surrounding erythema. Also, scant purulent discharge. Dorsal pedis not able to be palpated. Skin: no rashes, warm and dry normal turgor Neurologic: Grossly intact. Decreased sensation in bilateral lower extremities. Chronic. Psychiatric: A+Ox3, euthymic affect Lymphatic: no cervical or axillary lymphadenopathy : deferred Results & Data Results & Data Vital Signs (Past 12 Hours) Vital Signs Temp Pulse Resp BP Pulse Ox O2 Del Method 12/16/22 15:12 36.6 C 73 16 118/74 97 Room Air 12/16/22 07:37 36.9 C 82 16 147/89 H 96 Room Air Laboratory Results Laboratory Results WBC 6.83 K/ul (4.8-10.8) 12/16/22 07:37 RBC 4.45 M/uL (4.70-6.10) L 12/16/22 07:37 Hgb 12.0 g/dl (14.0-18.0) L 12/16/22 07:37 Hct 37.0 % (42.0-52.0) L 12/16/22 07:37 MCV 83.1 fL (80.0-100.0) 12/16/22 07:37 MCH 27.0 pg (25.0-34.0) 12/16/22 07:37 MCHC 32.4 g/dL (32.0-36.0) 12/16/22 07:37 RDW Std Deviation 50.4 fL (36.4-46.3) H 12/16/22 07:37 RDW Coeff of Minnie 16.7 % (11.5-14.5) H 12/16/22 07:37 Plt Count 431 K/uL (130-400) H 12/16/22 07:37 MPV 8.8 fL (9.4-12.4) L 12/16/22 07:37 Immature Gran % (Auto) 0.4 % 12/16/22 07:37 Neut % (Auto) 60.7 % 12/16/22 07:37 Lymph % (Auto) 20.4 % 12/16/22 07:37 Schuyler % (Auto) 10.7 % 12/16/22 07:37 Eos % (Auto) 5.9 % 12/16/22 07:37 Baso % (Auto) 1.9 % 12/16/22 07:37 Neut # (Auto) 4.15 K/uL (1.40-6.50) 12/16/22 07:37 Lymph # (Auto) 1.39 K/uL (1.2-3.4) 12/16/22 07:37 Schuyler # (Auto) 0.73 K/uL (0.11-0.59) H 12/16/22 07:37 Eos # (Auto) 0.40 K/uL (0-0.50) 12/16/22 07:37 Baso # (Auto) 0.13 K/uL (0-0.2) 12/16/22 07:37 Immature Gran # (Auto) 0.03 K/uL (0.01-0.20) 12/16/22 07:37 ESR 76 mm/hr (0-20) H 12/16/22 07:37 Sodium 133 mmol/L (136-145) L 12/16/22 07:37 Potassium 4.7 mmol/L (3.5-5.1) 12/16/22 07:37 Chloride 104 mmol/L (98-107) 12/16/22 07:37 Carbon Dioxide 24 mmol/L (21-32) 12/16/22 07:37 Anion Gap 5 (3-11) 12/16/22 07:37 BUN 29 mg/dl (6-23) H 12/16/22 07:37 Creatinine 2.39 mg/dl (0.6-1.4) H D 12/16/22 07:37 Est Cr Clr Drug Dosing 32.7 ml/min 12/16/22 07:37 Est GFR ( Amer) 33.4 ml/min 12/16/22 07:37 Est GFR (Non-Af Amer) 28.8 ml/min 12/16/22 07:37 BUN/Creatinine Ratio 12.1 (10-20) 12/16/22 07:37 Glucose 162 mg/dl (70-99(Fasting)) H 12/16/22 07:37 POC Glucose 115 mg/dl (70-99) H 12/16/22 11:56 Estimat Average Glucose 212 mg/dl 12/15/22 08:22 Hemoglobin A1c 9.0 % (4.5-5.6) H 12/15/22 08:22 Lactate 1.1 mmol/L (0.4-2.0) 12/14/22 17:00 Calcium 8.1 mg/dl (8.6-10.3) L 12/16/22 07:37 Magnesium 1.7 mg/dl (1.7-2.4) 12/14/22 17:00 Total Bilirubin 0.6 mg/dl (0.2-1.0) 12/14/22 17:00 Direct Bilirubin 0.1 mg/dl (0-0.2) 12/14/22 17:00 AST 17 U/L (13-39) 12/14/22 17:00 ALT 15 U/L (7-52) 12/14/22 17:00 Alkaline Phosphatase 96 U/L (34-104) 12/14/22 17:00 C-Reactive Protein 8.18 mg/dl (0-0.5) H 12/16/22 07:37 Total Protein 7.2 gm/dl (6.0-8.3) 12/14/22 17:00 Albumin 3.0 gm/dl (3.4-5.0) L 12/14/22 17:00 Procalcitonin 0.23 ng/ml (0-0.5) 12/14/22 17:00 Nasal Screen MRSA (PCR) Negative (Negative) 12/14/22 22:40 Random Vancomycin 14.2 mcg/ml (10-20) 12/15/22 08:22 SARS-CoV-2, RNA, NAAT NEGATIVE (NEGATIVE) 12/14/22 20:23 Impressions Ankle X-Ray 12/14/22 16:58 XR ankle LT min 3V routine CLINICAL HISTORY: Possible osteomyelitis. COMPARISON: Left ankle MRI December 05, 2022. FINDINGS: Note is made of trace soft tissue defect consistent with wound of the left ankle. There is associated soft tissue swelling. A locule of soft tissue gas is present. There is slight indistinctness of the cortex of the fibular tip with a small adjacent 4 mm bone fragment. Talar dome is intact. No additional sites of bony erosion are identified. Moderate vascular calcification is incidentally noted. No acute fractures. IMPRESSION: 1. Lateral ankle wound with associated soft tissue swelling. 2. Indistinctness of the cortex of the fibular tip suggestive of acute osteomyelitis, as shown on MRI of December 05, 2022. 3. No acute fractures. ACT 112: Negative or not required by law. Electronically signed by: Wong Lazaro M.D. 12/14/2022 6:51 PM Duplex Scan Lower Extremity Artery 12/15/22 10:59 US arterial duplex LE BI CLINICAL HISTORY: concern for peripheral vascular disease. Lower extremity pain. COMPARISON STUDY: None. FINDINGS: Scattered calcified plaque seen throughout the bilateral lower extremity arterial systems. There are normal biphasic to triphasic waveforms seen within the bilateral common femoral, superficial femoral, and right popliteal arteries. Biphasic to monophasic waveforms seen within the right calf arteries. No evidence for arterial occlusion. Monophasic waveforms left popliteal artery. Monophasic waveforms seen within the left calf arteries. Focal elevated peak soft velocities within the bilateral peroneal arteries consistent with areas of hemodynamically significant stenosis. IMPRESSION: 1. Focal areas of hemodynamically significant stenosis in the bilateral peroneal arteries. 2. No evidence for arterial occlusion. 3. Scattered calcified plaque with monophasic waveforms within the left popliteal artery, bilateral calf arteries, and bilateral dorsalis pedis arteries consistent with diffuse atherosclerotic disease. ACT 112: Negative or not required by law. Electronically signed by: Tani Contreras M.D. 12/15/2022 4:00 PM
[2022-12-16] MEDS: TAMSULOSIN HCL 0.4 MG CAP PO SCH (20:41)
[2022-12-16] MEDS: ATORVASTATIN 40 MG TAB PO SCH (20:41)
[2022-12-17] MEDS ORDERED: Nursing to Pharmacy Communication SCH (00:15)
[2022-12-17] MEDS: LEVOTHYROXINE SODIUM 150 MCG TABLET PO SCH (06:00)
[2022-12-17] MEDS: METOCLOPRAMIDE HCL 10 MG TABLET PO SCH ×4 (06:00→21:39)
[2022-12-17] MEDS: CEFEPIME 1,000 MG in SYRINGE 0 ML IV SCH ×2 (06:01→17:05)
[2022-12-17] MEDS: INSULIN ASPART PER UNIT CHARGE SC SCH ×4 (06:31→21:47)
[2022-12-17] MEDS ORDERED: ONDANSETRON INJ 2 MG/ML 2 ML VIAL IV PRN (06:56)
[2022-12-17] MEDS ORDERED: ePHEDrine sulfate 50 MG/ML AMP IV PRN (06:56)
[2022-12-17] MEDS ORDERED: ATROPINE SULFATE 0.1 MG/ML 10ML SYR IV PRN (06:56)
[2022-12-17] MEDS ORDERED: fentaNYL citrate PF 100 MCG/2 ML VIAL IV PRN (06:56)
[2022-12-17] MEDS ORDERED: MIDAZOLAM HCL 1 MG/ML 2ML VIAL ONE (07:05)
[2022-12-17] MEDS ORDERED: ONDANSETRON INJ 2 MG/ML 2 ML VIAL ONE (07:05)
[2022-12-17] MEDS ORDERED: LIDOCAINE 2% 2 ML VIAL/AMP(20MG/ML) INFIL ONE (07:05)
[2022-12-17] MEDS ORDERED: PROPOFOL IV EMULSION 10 MG/ML 20 ML VIAL IV ONE (07:05)
[2022-12-17] MEDS ORDERED: fentaNYL citrate PF 100 MCG/2 ML VIAL ONE (07:06)
[2022-12-17 07:19] LABS: Basophils # (auto) 0.14 K/uL (0-0.2); Basophils % (auto) 1.8 %; Eosinophils % (auto) 7.8 %; Hematocrit (blood only) 36.5 % (42.0-52.0); Hemoglobin 11.9 g/dl (14.0-18.0); Immature Granulocytes # (auto) 0.02 K/uL (0.01-0.20); Immature Granulocytes % (auto) 0.3 %; Lymphocytes # (auto) 1.37 K/uL (1.2-3.4); Lymphocytes % (auto) 17.8 %; Mean Corpuscular Hemoglobin 26.4 pg (25.0-34.0); Mean Corpuscular Hgb Conc 32.6 g/dL (32.0-36.0); Mean Corpuscular Volume 81.1 fL (80.0-100.0); Mean Platelet Volume 9.2 fL (9.4-12.4); Monocytes # (auto) 0.82 K/uL (0.11-0.59); Monocytes % (auto) 10.6 %; Neutrophils # (auto) 4.76 K/uL (1.40-6.50); Neutrophils % (auto) 61.7 %; Platelet Count 476 K/uL (130-400); RDW Standard Deviation 49.6 fL (36.4-46.3); White Blood Count 7.71 K/ul (4.8-10.8)
[2022-12-17 07:36] LABS: BUN Creatinine Ratio 15.2 (10-20); Calcium 8.2 mg/dl (8.6-10.3); Est GFR (African American) 37.5 ml/min; Est GFR (Non-African American) 32.4 ml/min; Potassium 4.5 mmol/L (3.5-5.1)
--- NOTE | 2022-12-17 07:38 | History & Physical Bridge Note ---
Date of Service December 17, 2022 History & Physical Bridge Note I have examined the patient, reviewed the History & Physical and in the interval since the performance of the History & Physical I have noted the following changes of clinical significance: no changes noted
--- NOTE | 2022-12-17 08:58 | Post Operative Brief Note ---
Immediate Post Op Note v1 Date of Surgery December 17, 2022 Pre & Post Diagnosis Operation Date: 12/17/22 07:30 Pre-Op Diagnosis: Ulcer of left ankle Osteomyelitis of ankle Post-Op Diagnosis: Ulcer of left ankle Osteomyelitis of ankle I identified the patient and participated in the time-out.: Yes Procedure Operation Date: 12/17/22 07:30 Actual Procedures p Left Ankle Incision and Drainage, Left Ankle Arthroscopy, Wound Vac Application - Celestino Stout DPM, MS Surgeon Celestino Stout DPM, MS Drywall Sprayer none Estimated Blood Loss 5 Findings Consistent with Post-Op Diagnosis consistent with pre operative diagnosis Drains Hanna Catheter and Other (Wound Vac)
[2022-12-17] MEDS ORDERED: LANTUS PER UNIT CHARGE SQ SCH (09:00)
[2022-12-17] MEDS ORDERED: VANCOMYCIN LEVEL ONE (09:30)
--- NOTE | 2022-12-17 10:30 | Anesthesiology Progress Note ---
Date of Service December 17, 2022 Anesthesia Post Procedure Vital Signs Vital Signs: Temp Pulse Pulse Pulse Resp BP BP 12/17/22 10:00 97.7 F 74 16 145/81 H 12/17/22 09:30 97.3 F L 71 12 134/78 12/17/22 09:20 72 12 133/79 12/17/22 09:10 71 12 121/75 12/17/22 09:00 74 14 116/71 12/17/22 09:40 69 13 127/77 12/17/22 08:54 96.8 F L 71 20 118/72 12/17/22 07:20 98.6 F 78 16 138/83 12/16/22 23:24 97.7 F 87 18 156/88 H 12/16/22 15:12 97.9 F 73 16 118/74 Pulse Ox O2 Del Method O2 Flow Rate 12/17/22 10:00 97 Room Air 12/17/22 09:30 97 Room Air 12/17/22 09:20 97 Room Air 12/17/22 09:10 99 Oxymask 3 12/17/22 09:00 99 Oxymask 6 12/17/22 09:40 96 Room Air 12/17/22 08:54 98 Oxymask 6 12/17/22 07:20 95 Room Air 12/16/22 23:24 96 Room Air 12/16/22 15:12 97 Room Air Transfer of Care Handoff Completed per policy Notes Mental Status: alert / awake / arousable and participated in evaluation Patient Amnestic to Procedure: Yes Nausea / Vomiting: adequately controlled Pain: adequately controlled Airway Patency, RR, SpO2: stable & adequate BP & HR: stable & adequate Hydration State: stable & adequate Anesthetic Complications: no major complications apparent and Pt Satisfied with anesthetic care
[2022-12-17] MEDS: ADVANCED PROBIOTIC 1250 MG CAPSULE PO SCH ×3 (10:52→17:04)
[2022-12-17] MEDS: FOLIC ACID 1 MG TAB PO SCH (10:53)
[2022-12-17] MEDS: NEPHROCAPS PO SCH (10:53)
[2022-12-17] MEDS: CYANOCOBALAMIN (B-12) 100 MCG TABLET PO SCH (10:53)
[2022-12-17] MEDS: FLUoxetine HCL 20 MG CAP PO SCH (10:53)
[2022-12-17] MEDS: ZINC SULFATE 220 MG CAPSULE PO SCH (10:53)
[2022-12-17] MEDS: PANTOprazole 40 MG TAB PO SCH ×2 (10:53→21:39)
[2022-12-17] MEDS: SODIUM BICARBONATE 650 MG TAB PO SCH ×2 (10:53→21:40)
[2022-12-17] MEDS: HEPARIN SOD 5,000 UNIT/0.5 ML VIAL SQ SCH ×2 (13:16→21:40)
--- NOTE | 2022-12-17 15:17 | Hospitalist Progress Note ---
Date of Service December 17, 2022 Assessment & Plan (1) Diabetic ulcer of left ankle: (2) Osteomyelitis of ankle: Plan: Patient is 57-year-old male with PMH DM I, diabetic neuropathy presented to ER for ongoing left ankle ulcer 12/05/22 Left Ankle MRI: 1. Significant motion compromised examination. 2. Large wound with significant cellulitis overlying the lateral ankle. 3. There is a 2.9 cm pocket of fluid deep to the wound which likely represents abscess. Packing material could appear similar but is considered less likely. Correlate clinically. 4. The pocket of fluid to appears to communicated with the joint space. There is a large and complex appearing joint effusion. Septic arthritis at the ankle joint is the diagnosis of exclusion. 5. There is marrow abnormality within the lateral malleolus that is highly suspicious for osteomyelitis. There is also erosion and probable osteomyelitis involving the anterior tibial plafond. 6. Milder nonspecific marrow edema is also seen within the talus and calcaneus. This could be reactive. Infection is not excluded. 7. There is significant complex fluid identified around the peroneal tendons and the flexure hallucis longus tendon. This is consistent with tenosynovitis and may be infectious. 8. There is anterior subluxation/dislocation of the talus. In ER vitals stable. No leukocytosis, lactate WNL, procalcitonin: 0.23 Left ankle x-ray: Lateral ankle wound with associated soft tissue swelling. Indistinctness of the cortex of the fibular tip suggestive of acute osteomyelitis, as shown on MRI of December 05, 2022. No acute fractures. Superficial wound culture from earlier in November grew MSSA. ESR 76, CRP of 8.18 On admission, discussed with orthopedics; recommended vascular surgery evaluation and podiatry consult. Bilateral lower extremity arterial duplex reviewed; focal areas of hemodynamically significant stenosis in bilateral peroneal arteries present. Vascular surgery consulted; did not recommend any procedure. Status post Left ankle incision and drainage, left ankle arthroscopy, wound VAC application on December 17, 2022. Discussed with infectious disease. Based on the culture results from earlier in November; recommended to stop vancomycin and flagyl, continue cefepime. If Intra-Op culture is MSSA only; plan for cefazolin for 6 weeks. Continue dressing changes as per podiatry. Continue wound VAC PT OT ordered We will follow-up on Intra-Op culture. (3) Diabetes mellitus type 1: Plan: A1c: 9.0% Continue basal bolus insulin Glycemic pharmacy consult (4) CKD (chronic kidney disease), stage III: Plan: CKD III-IV Labs reviewed; creatinine at baseline. Continue on oral bicarb Monitor renal functions, avoid nephrotoxic agents when possible (5) Dyslipidemia: Plan: Continue atorvastatin (6) Chronic hyponatremia: Plan: Labs reviewed; sodium of 134 today. -Continue sodium bicarb tabs (7) Chronic anemia: Plan: Anemia CKD Hgb: 11.5. On Epogen weekly Continue vitamin B12, folic acid (8) Chronic hyperkalemia: Plan: K: 4.5 On Veltassa (9) Hypothyroidism: Plan: Continue levothyroxine (10) Depression: Plan: Continue fluoxetine (11) Chronic nausea: Plan: Continue PPI, Reglan DVT Prophylaxis heparin Full Code as per discussion with pt Please note the above document was generated using voice recognition software. It may contain grammatical, syntax or spelling errors. Any formal questions or concerns about the content, text or information contained within the body of this dictation should be directly addressed to the provider for clarification Admission and Anticipated Discharge Date Admission Date: December 14, 2022 Subjective Patient seen and examined after the OR. Dressing in place on his left foot with wound VAC in place. Patient denies any pain or discomfort. Review of Systems Review of Systems: All systems reviewed & are unremarkable except as noted in Subjective Physical Exam Physical Exam: Constitutional: WD/WN, vitals as above, NAD, sitting up in bed, pleasant, conversing easily Respiratory: normal respiratory effort, lungs clear to auscultation, no wheeze, rales, rhonchi. Normal insp/exp effort, no accessory muscle use Cardiovascular: RRR, no murmur, no edema Vessels: no JVD or carotid bruit Chest: normal inspection of chest Abdomen: normal bowel sounds, soft, nontender, no hepatosplenomegaly Musculoskeletal: Bandage in place which is clean dry and intact. Wound VAC in place. Skin: no rashes, warm and dry normal turgor Neurologic: Grossly intact. Decreased sensation in bilateral lower extremities. Chronic. Psychiatric: A+Ox3, euthymic affect Lymphatic: no cervical or axillary lymphadenopathy : deferred Results & Data Results & Data Vital Signs (Past 12 Hours) Vital Signs Temp Pulse Pulse Pulse Resp BP BP 12/17/22 15:08 36.6 C 75 16 113/70 12/17/22 13:00 36.5 C 75 16 122/72 12/17/22 12:00 36.4 C L 73 16 121/75 12/17/22 11:03 36.3 C L 73 16 132/78 12/17/22 11:00 36.3 C L 72 16 145/82 H 12/17/22 10:30 36.4 C L 70 16 129/78 12/17/22 10:00 36.5 C 74 16 145/81 H 12/17/22 09:30 36.3 C L 71 12 134/78 12/17/22 09:20 72 12 133/79 12/17/22 09:10 71 12 121/75 12/17/22 09:00 74 14 116/71 12/17/22 09:40 69 13 127/77 12/17/22 08:54 36 C L 71 20 118/72 12/17/22 07:20 37.0 C 78 16 138/83 Pulse Ox O2 Del Method O2 Flow Rate 12/17/22 15:08 96 Room Air 12/17/22 13:00 96 Room Air 12/17/22 12:00 95 Room Air 12/17/22 11:03 96 Room Air 12/17/22 11:00 96 Room Air 12/17/22 10:30 97 Room Air 12/17/22 10:00 97 Room Air 12/17/22 09:30 97 Room Air 12/17/22 09:20 97 Room Air 12/17/22 09:10 99 Oxymask 3 12/17/22 09:00 99 Oxymask 6 12/17/22 09:40 96 Room Air 12/17/22 08:54 98 Oxymask 6 12/17/22 07:20 95 Room Air Laboratory Results Laboratory Results WBC 7.71 K/ul (4.8-10.8) 12/17/22 06:32 RBC 4.50 M/uL (4.70-6.10) L 12/17/22 06:32 Hgb 11.9 g/dl (14.0-18.0) L 12/17/22 06:32 Hct 36.5 % (42.0-52.0) L 12/17/22 06:32 MCV 81.1 fL (80.0-100.0) 12/17/22 06:32 MCH 26.4 pg (25.0-34.0) 12/17/22 06:32 MCHC 32.6 g/dL (32.0-36.0) 12/17/22 06:32 RDW Std Deviation 49.6 fL (36.4-46.3) H 12/17/22 06:32 RDW Coeff of Minnie 17.0 % (11.5-14.5) H 12/17/22 06:32 Plt Count 476 K/uL (130-400) H 12/17/22 06:32 MPV 9.2 fL (9.4-12.4) L 12/17/22 06:32 Immature Gran % (Auto) 0.3 % 12/17/22 06:32 Neut % (Auto) 61.7 % 12/17/22 06:32 Lymph % (Auto) 17.8 % 12/17/22 06:32 Sevier % (Auto) 10.6 % 12/17/22 06:32 Eos % (Auto) 7.8 % 12/17/22 06:32 Baso % (Auto) 1.8 % 12/17/22 06:32 Neut # (Auto) 4.76 K/uL (1.40-6.50) 12/17/22 06:32 Lymph # (Auto) 1.37 K/uL (1.2-3.4) 12/17/22 06:32 Sevier # (Auto) 0.82 K/uL (0.11-0.59) H 12/17/22 06:32 Eos # (Auto) 0.60 K/uL (0-0.50) H 12/17/22 06:32 Baso # (Auto) 0.14 K/uL (0-0.2) 12/17/22 06:32 Immature Gran # (Auto) 0.02 K/uL (0.01-0.20) 12/17/22 06:32 ESR 76 mm/hr (0-20) H 12/16/22 07:37 Sodium 134 mmol/L (136-145) L 12/17/22 06:32 Potassium 4.5 mmol/L (3.5-5.1) 12/17/22 06:32 Chloride 107 mmol/L (98-107) 12/17/22 06:32 Carbon Dioxide 20 mmol/L (21-32) L 12/17/22 06:32 Anion Gap 7 (3-11) 12/17/22 06:32 BUN 33 mg/dl (6-23) H 12/17/22 06:32 Creatinine 2.17 mg/dl (0.6-1.4) H 12/17/22 06:32 Est Cr Clr Drug Dosing 36.0 ml/min 12/17/22 06:32 Est GFR ( Amer) 37.5 ml/min 12/17/22 06:32 Est GFR (Non-Af Amer) 32.4 ml/min 12/17/22 06:32 BUN/Creatinine Ratio 15.2 (10-20) 12/17/22 06:32 Glucose 244 mg/dl (70-99(Fasting)) H 12/17/22 06:32 POC Glucose 231 mg/dl (70-99) H 12/17/22 11:28 Estimat Average Glucose 212 mg/dl 12/15/22 08:22 Hemoglobin A1c 9.0 % (4.5-5.6) H 12/15/22 08:22 Lactate 1.1 mmol/L (0.4-2.0) 12/14/22 17:00 Calcium 8.2 mg/dl (8.6-10.3) L 12/17/22 06:32 Magnesium 1.7 mg/dl (1.7-2.4) 12/14/22 17:00 Total Bilirubin 0.6 mg/dl (0.2-1.0) 12/14/22 17:00 Direct Bilirubin 0.1 mg/dl (0-0.2) 12/14/22 17:00 AST 17 U/L (13-39) 12/14/22 17:00 ALT 15 U/L (7-52) 12/14/22 17:00 Alkaline Phosphatase 96 U/L (34-104) 12/14/22 17:00 C-Reactive Protein 8.18 mg/dl (0-0.5) H 12/16/22 07:37 Total Protein 7.2 gm/dl (6.0-8.3) 12/14/22 17:00 Albumin 3.0 gm/dl (3.4-5.0) L 12/14/22 17:00 Procalcitonin 0.23 ng/ml (0-0.5) 12/14/22 17:00 Nasal Screen MRSA (PCR) Negative (Negative) 12/14/22 22:40 Random Vancomycin 14.2 mcg/ml (10-20) 12/15/22 08:22 SARS-CoV-2, RNA, NAAT NEGATIVE (NEGATIVE) 12/14/22 20:23 Impressions Ankle X-Ray 12/14/22 16:58 XR ankle LT min 3V routine CLINICAL HISTORY: Possible osteomyelitis. COMPARISON: Left ankle MRI December 05, 2022. FINDINGS: Note is made of trace soft tissue defect consistent with wound of the left ankle. There is associated soft tissue swelling. A locule of soft tissue gas is present. There is slight indistinctness of the cortex of the fibular tip with a small adjacent 4 mm bone fragment. Talar dome is intact. No additional sites of bony erosion are identified. Moderate vascular calcification is incidentally noted. No acute fractures. IMPRESSION: 1. Lateral ankle wound with associated soft tissue swelling. 2. Indistinctness of the cortex of the fibular tip suggestive of acute osteomyelitis, as shown on MRI of December 05, 2022. 3. No acute fractures. ACT 112: Negative or not required by law. Electronically signed by: Wong Lazaro M.D. 12/14/2022 6:51 PM Duplex Scan Lower Extremity Artery 12/15/22 10:59 US arterial duplex LE BI CLINICAL HISTORY: concern for peripheral vascular disease. Lower extremity pain. COMPARISON STUDY: None. FINDINGS: Scattered calcified plaque seen throughout the bilateral lower extremity arterial systems. There are normal biphasic to triphasic waveforms seen within the bilateral common femoral, superficial femoral, and right popliteal arteries. Biphasic to monophasic waveforms seen within the right calf arteries. No evidence for arterial occlusion. Monophasic waveforms left popliteal artery. Monophasic waveforms seen within the left calf arteries. Focal elevated peak soft velocities within the bilateral peroneal arteries consistent with areas of hemodynamically significant stenosis. IMPRESSION: 1. Focal areas of hemodynamically significant stenosis in the bilateral peroneal arteries. 2. No evidence for arterial occlusion. 3. Scattered calcified plaque with monophasic waveforms within the left popliteal artery, bilateral calf arteries, and bilateral dorsalis pedis arteries consistent with diffuse atherosclerotic disease. ACT 112: Negative or not required by law. Electronically signed by: Tani Contreras M.D. 12/15/2022 4:00 PM
[2022-12-17] MEDS: TAMSULOSIN HCL 0.4 MG CAP PO SCH (21:39)
[2022-12-17] MEDS: ATORVASTATIN 40 MG TAB PO SCH (21:39)
[2022-12-17] MEDS: LANTUS PER UNIT CHARGE SQ SCH (21:47)
--- NOTE | 2022-12-17 22:51 | Operative Report ---
Post Operative Report Pre & Post Diagnosis Operation Date: 12/17/22 07:30 Pre-Op Diagnosis: Ulcer of left ankle Osteomyelitis of ankle Post-Op Diagnosis: Ulcer of left ankle Osteomyelitis of ankle I identified the patient and participated in the time-out.: Yes Procedure Operation Date: 12/17/22 07:30 Actual Procedures p Left Ankle Incision and Drainage, Left Ankle Arthroscopy, Wound Vac Application - Celestino Stout DPM, MS Surgeon Celestino Stout DPM, MS Tool Adjuster none Estimated Blood Loss 5 Findings Consistent with Post-Op Diagnosis Consistent with pre operative diagnosis Specimens Deep culture swap left ankle - Micro Left fibula bone - Micro Left fibula bone - Path Description of Procedure Patient is a type I diabetic, incarcerated 57 year old male who presents for treatment of a diabetic left ankle wound. MRI has shown osteomyelitis of both the fibula and tibia along with abscess, with septic arthritis of left ankle. Patient is seen today for surgical debridement, excision of non viable bone and soft tissue, arthroscopy with debridement, and application of wound vac. I have reviewed the procedure and post operative recovery with Patient in detail. All questions answered. All potential risks, benefits, complications, alternatives, rehab, potential for incomplete relief of symptoms, need for further surgery, DVT, PE, , persistent pain, swelling, scarring, weakness, neurovascular, wound complications and potential for amputations were discussed with patient. Unwanted outcomes such as, but not limited to were reviewed including under correction, overcorrection, return of deformity, infection. All questions were answered. Patient has decided to proceed with procedure as indicated. Preoperative diagnosis: 1.) Left ankle diabetic wound 2.) Left lateral malleolus Osteomyelitis of fibula 3.) Left tibial plafond osteomyelitis 4.) Septic arthritis of left ankle Postoperative diagnosis: Same Name of operation: 1.) Wound debridement left ankle 2.) Left ankle incision and drainage 3.) Left partial excision fibula 4.) Left ankle arthroscopy with extensive debridement 5.) Left partial excision of tibia Surgeon: Dr. Stout Tool Adjuster: None Anesthesia: General Estimated blood loss: Minimal Procedure in detail: Under mild sedation the patient was brought in the operating room placed on the operating table in supine position. A pneumatic calf tourniquet was then placed about the patient's left calf. Following sedation, the ankle was then prepped, scrubbed, and draped, in the usual aseptic manner. An Esmarch bandage utilized examining the patient's left ankle and the pneumatic ankle tourniquet was inflated. Attention was then directed to the lateral ankle where a 2 x 2 x 2 cm full thickness diabetic ulcer was located. Utilizing a sharp sterile, number 15 blade and incision was placed to elongate the wound posteriorly where MRI shows a 2.8 x 2.9 x 2.0 cm fluid collection. The abscess was released. At this time attention was directed to the wound and wound base. Utilizing a sharp sterile, number 15 blade the 2 x 2 x 2 cm diabetic lateral ankle ulcer was debridement sharply down to healthy bleeding tissue. The wound base exposed the lateral malleolus where the MRI showed osteomyelitis. Utilizing a rongeur and curette the lateral malleolus bone was excised. This was placed on the back table and labeled left fibula bone. A portion was placed in formalin and sent to pathology while the remainder was sent to microbiology for culture and sensitivities. At this time attention was directed to the anterior aspect of the left ankle. An 18 gauge needle was used to infiltrate the medial gutter and approximately 15 mL of lactated Ringer was injected. Next utilizing a sharp sterile 15 blade and incision was created medial to the tibialis anterior at the level of the ankle. Next a curved hemostat was utilized to create a larger opening. A deep culture swap was placed into the ankle joint directly. Next a blunt trocar and sleeve, followed by a camera with in and out flow were introduced medially followed by direct visualization. This was followed by placement of a lateral incision with a sharp sterile 15 blade at the lateral portal allowed for placement of 3.5 Coude shaver. Next, the sequential diagnostic arthroscopy commenced on the anterior aspect of the ankle noting significant synovitis. This was most notable at the lateral gutter. There was an impinging area of capsule at the lateral shoulder. There is some arthrofibrosis within the gutter. Grade 1 and 2 changes were noted to the cartilaginous surfaces, particularly along the anterior aspect of the lateral tibia and the lateral shoulder of the talus. A similar changes noted within the medial shoulder of the talus at the distal articular surface. Utilizing the 3.5 mm Cuda shaver a complete synovectomy of the anterior aspect of the ankle. The area of the lateral capsular impingement was resected. The arthrofibrosis from the lateral gutter was removed. The tibial plafond was inspected and noted to have erosion consistent with the MRI findings. This portion of the tibial plafond was resected with the shaver. The partial excision of the tibial plafond was completed with out incident. Areas of spurring and erosion from the tibial plafond were then contoured. Fill abraded cartilage from the lateral shoulder and tibial plafond were debrided. The inflammatory synovitis from the anterior portions of the joint was resected. The arthrofibrosis and inflammatory changes from the lateral gutter were removed. Fibrillated cartilage was recontoured and the lateral joint could be taken through motion without evidence of impingement. Next, attention was then directed to the chondral surface where the talar dome was inspected. The surfaces were probed, noted to be stable and intact. Instrumentation was then withdrawn and reversed portals. No significant osteochondral defects were observed. There was a grade 2/3 cartilaginous damage which was debrided. All particulate debris was flushed from the joint. Next, the excess fluid was then expressed from the joint. The portal sites were closed using horizontal suture 4-0 nylon. At this time negative pressure wound therapy was applied to the left ankle lateral malleolus wound. The wound vac was placed on 125mmHg continuous. The anterior portial incision sites were dressed with Betadine soaked Adaptic followed by sterile compressive dressing consisting of 4 x 4's and Effie. The pneumatic ankle tourniquet was deflated and a prompt hyperemic response was noted to all digits of the left foot. An Dontae wrap was then applied. The Patient tolerated the procedure and anesthesia well. The Patient was transferred to recovery room with vital signs stable and vascular status intact all toes of the Left foot. Following a period of Postoperative monitoring the Patient will be readmitted to the floor resuming all preoperative orders. I attest to the content of the Intraoperative Record and any orders documented therein. Any exceptions are noted below.
[2022-12-17] MEDS: PATIROMER CALCIUM SORBITEX 8.4 GM PACK PO SCH (23:01)
[2022-12-18] MEDS ORDERED: INSULIN ASPART PER UNIT CHARGE SC SCH
[2022-12-18] MEDS: CEFEPIME 1,000 MG in SYRINGE 0 ML IV SCH (05:53)
[2022-12-18] MEDS: HEPARIN SOD 5,000 UNIT/0.5 ML VIAL SQ SCH ×3 (05:54→22:09)
[2022-12-18] MEDS: LEVOTHYROXINE SODIUM 150 MCG TABLET PO SCH (05:54)
[2022-12-18 07:11] LABS: Basophils # (auto) 0.18 K/uL (0-0.2); Basophils % (auto) 2.1 %; Eosinophils % (auto) 5.9 %; Hematocrit (blood only) 36.1 % (42.0-52.0); Hemoglobin 11.3 g/dl (14.0-18.0); Immature Granulocytes # (auto) 0.03 K/uL (0.01-0.20); Immature Granulocytes % (auto) 0.4 %; Lymphocytes # (auto) 1.64 K/uL (1.2-3.4); Lymphocytes % (auto) 19.3 %; Mean Corpuscular Hemoglobin 26.3 pg (25.0-34.0); Mean Corpuscular Hgb Conc 31.3 g/dL (32.0-36.0); Mean Corpuscular Volume 84.1 fL (80.0-100.0); Mean Platelet Volume 9.2 fL (9.4-12.4); Monocytes # (auto) 0.87 K/uL (0.11-0.59); Monocytes % (auto) 10.2 %; Neutrophils # (auto) 5.27 K/uL (1.40-6.50); Neutrophils % (auto) 62.1 %; Platelet Count 444 K/uL (130-400); RDW Coefficient of Variation 17.2 % (11.5-14.5); RDW Standard Deviation 52.5 fL (36.4-46.3); Red Blood Count 4.29 M/uL (4.70-6.10); White Blood Count 8.49 K/ul (4.8-10.8)
[2022-12-18 07:35] LABS: BUN Creatinine Ratio 16.2 (10-20); Calcium 8.1 mg/dl (8.6-10.3); Creatinine Clr Calc Pharmacy 34.1 ml/min; Est GFR (African American) 35.2 ml/min; Est GFR (Non-African American) 30.3 ml/min; Potassium 4.7 mmol/L (3.5-5.1)
[2022-12-18] MEDS: METOCLOPRAMIDE HCL 10 MG TABLET PO SCH ×4 (07:35→22:09)
[2022-12-18] MEDS: ADVANCED PROBIOTIC 1250 MG CAPSULE PO SCH ×3 (07:35→17:15)
[2022-12-18] MEDS: SODIUM BICARBONATE 650 MG TAB PO SCH ×2 (08:24→22:09)
[2022-12-18] MEDS: PANTOprazole 40 MG TAB PO SCH ×2 (08:24→22:09)
[2022-12-18] MEDS: NEPHROCAPS PO SCH (08:24)
[2022-12-18] MEDS: FLUoxetine HCL 20 MG CAP PO SCH (08:24)
[2022-12-18] MEDS: ZINC SULFATE 220 MG CAPSULE PO SCH (08:24)
[2022-12-18] MEDS: FOLIC ACID 1 MG TAB PO SCH (08:24)
[2022-12-18] MEDS: CYANOCOBALAMIN (B-12) 100 MCG TABLET PO SCH (08:24)
[2022-12-18] MEDS: INSULIN ASPART PER UNIT CHARGE SC SCH ×4 (09:24→22:19)
[2022-12-18] MEDS: LANTUS PER UNIT CHARGE SQ SCH ×2 (09:24→22:20)
--- NOTE | 2022-12-18 16:43 | Hospitalist Progress Note ---
Date of Service December 18, 2022 Assessment & Plan (1) Diabetic ulcer of left ankle: (2) Osteomyelitis of ankle: Plan: Patient is 57-year-old male with PMH DM I, diabetic neuropathy presented to ER for ongoing left ankle ulcer 12/05/22 Left Ankle MRI: 1. Significant motion compromised examination. 2. Large wound with significant cellulitis overlying the lateral ankle. 3. There is a 2.9 cm pocket of fluid deep to the wound which likely represents abscess. Packing material could appear similar but is considered less likely. Correlate clinically. 4. The pocket of fluid to appears to communicated with the joint space. There is a large and complex appearing joint effusion. Septic arthritis at the ankle joint is the diagnosis of exclusion. 5. There is marrow abnormality within the lateral malleolus that is highly suspicious for osteomyelitis. There is also erosion and probable osteomyelitis involving the anterior tibial plafond. 6. Milder nonspecific marrow edema is also seen within the talus and calcaneus. This could be reactive. Infection is not excluded. 7. There is significant complex fluid identified around the peroneal tendons and the flexure hallucis longus tendon. This is consistent with tenosynovitis and may be infectious. 8. There is anterior subluxation/dislocation of the talus. In ER vitals stable. No leukocytosis, lactate WNL, procalcitonin: 0.23 Left ankle x-ray: Lateral ankle wound with associated soft tissue swelling. Indistinctness of the cortex of the fibular tip suggestive of acute osteomyelitis, as shown on MRI of December 05, 2022. No acute fractures. Superficial wound culture from earlier in November grew MSSA. ESR 76, CRP of 8.18 On admission, discussed with orthopedics; recommended vascular surgery evaluation and podiatry consult. Bilateral lower extremity arterial duplex reviewed; focal areas of hemodynamically significant stenosis in bilateral peroneal arteries present. Vascular surgery consulted; did not recommend any procedure. Status post Left ankle incision and drainage, left ankle arthroscopy, wound VAC application on December 17, 2022. Discussed with infectious disease. Based on the culture results from earlier in November; recommended to stop vancomycin and flagyl, continue cefepime. If Intra-Op culture is MSSA only; plan for cefazolin for 6 weeks. Continue dressing changes as per podiatry. Continue wound VAC PT OT eval done; recommend rehab. We will follow-up on Intra-Op culture. Culture negative so far. (3) Diabetes mellitus type 1: Plan: A1c: 9.0% Continue basal bolus insulin Glycemic pharmacy consult (4) CKD (chronic kidney disease), stage III: Plan: CKD III-IV Labs reviewed; creatinine at baseline. Continue on oral bicarb Monitor renal functions, avoid nephrotoxic agents when possible (5) Dyslipidemia: Plan: Continue atorvastatin (6) Chronic hyponatremia: Plan: Labs reviewed; sodium of 135 today. -Continue sodium bicarb tabs (7) Chronic anemia: Plan: Anemia CKD Hgb: 11.5. On Epogen weekly Continue vitamin B12, folic acid (8) Chronic hyperkalemia: Plan: K: 4.5 On [place] (9) Hypothyroidism: Plan: Continue levothyroxine (10) Depression: Plan: Continue fluoxetine (11) Chronic nausea: Plan: Continue PPI, Reglan DVT Prophylaxis heparin Full Code as per discussion with pt Please note the above document was generated using voice recognition software. It may contain grammatical, syntax or spelling errors. Any formal questions or concerns about the content, text or information contained within the body of this dictation should be directly addressed to the provider for clarification Admission and Anticipated Discharge Date Admission Date: December 14, 2022 Subjective Patient seen and examined at bedside. He is sitting up on a chair at side of the bed. Denies any pain or discomfort. Review of Systems Review of Systems: All systems reviewed & are unremarkable except as noted in Subjective Physical Exam Physical Exam: Constitutional: WD/WN, vitals as above, NAD, sitting up in bed, pleasant, conversing easily Respiratory: normal respiratory effort, lungs clear to auscultation, no wheeze, rales, rhonchi. Normal insp/exp effort, no accessory muscle use Cardiovascular: RRR, no murmur, no edema Vessels: no JVD or carotid bruit Chest: normal inspection of chest Abdomen: normal bowel sounds, soft, nontender, no hepatosplenomegaly Musculoskeletal: Bandage in place which is clean dry and intact. Wound VAC in place. Skin: no rashes, warm and dry normal turgor Neurologic: Grossly intact. Decreased sensation in bilateral lower extremities. Chronic. Psychiatric: A+Ox3, euthymic affect Lymphatic: no cervical or axillary lymphadenopathy : deferred Results & Data Results & Data Vital Signs (Past 12 Hours) Vital Signs Temp Pulse Resp BP Pulse Ox O2 Del Method 12/18/22 15:42 36.6 C 80 16 132/80 97 Room Air 12/18/22 11:38 36.4 C L 85 16 97/64 L 96 Room Air 12/18/22 07:41 36.7 C 78 16 139/80 97 Room Air Laboratory Results Laboratory Results WBC 8.49 K/ul (4.8-10.8) 12/18/22 06:45 RBC 4.29 M/uL (4.70-6.10) L 12/18/22 06:45 Hgb 11.3 g/dl (14.0-18.0) L 12/18/22 06:45 Hct 36.1 % (42.0-52.0) L 12/18/22 06:45 MCV 84.1 fL (80.0-100.0) 12/18/22 06:45 MCH 26.3 pg (25.0-34.0) 12/18/22 06:45 MCHC 31.3 g/dL (32.0-36.0) L 12/18/22 06:45 RDW Std Deviation 52.5 fL (36.4-46.3) H 12/18/22 06:45 RDW Coeff of Minnie 17.2 % (11.5-14.5) H 12/18/22 06:45 Plt Count 444 K/uL (130-400) H 12/18/22 06:45 MPV 9.2 fL (9.4-12.4) L 12/18/22 06:45 Immature Gran % (Auto) 0.4 % 12/18/22 06:45 Neut % (Auto) 62.1 % 12/18/22 06:45 Lymph % (Auto) 19.3 % 12/18/22 06:45 [place] % (Auto) 10.2 % 12/18/22 06:45 Eos % (Auto) 5.9 % 12/18/22 06:45 Baso % (Auto) 2.1 % 12/18/22 06:45 Neut # (Auto) 5.27 K/uL (1.40-6.50) 12/18/22 06:45 Lymph # (Auto) 1.64 K/uL (1.2-3.4) 12/18/22 06:45 [place] # (Auto) 0.87 K/uL (0.11-0.59) H 12/18/22 06:45 Eos # (Auto) 0.50 K/uL (0-0.50) 12/18/22 06:45 Baso # (Auto) 0.18 K/uL (0-0.2) 12/18/22 06:45 Immature Gran # (Auto) 0.03 K/uL (0.01-0.20) 12/18/22 06:45 ESR 76 mm/hr (0-20) H 12/16/22 07:37 Sodium 135 mmol/L (136-145) L 12/18/22 06:45 Potassium 4.7 mmol/L (3.5-5.1) 12/18/22 06:45 Chloride 107 mmol/L (98-107) 12/18/22 06:45 Carbon Dioxide 22 mmol/L (21-32) 12/18/22 06:45 Anion Gap 6 (3-11) 12/18/22 06:45 BUN 37 mg/dl (6-23) H 12/18/22 06:45 Creatinine 2.29 mg/dl (0.6-1.4) H 12/18/22 06:45 Est Cr Clr Drug Dosing 34.1 ml/min 12/18/22 06:45 Est GFR ( Amer) 35.2 ml/min 12/18/22 06:45 Est GFR (Non-Af Amer) 30.3 ml/min 12/18/22 06:45 BUN/Creatinine Ratio 16.2 (10-20) 12/18/22 06:45 Glucose 189 mg/dl (70-99(Fasting)) H 12/18/22 06:45 POC Glucose 137 mg/dl (70-99) H 12/18/22 11:54 Estimat Average Glucose 212 mg/dl 12/15/22 08:22 Hemoglobin A1c 9.0 % (4.5-5.6) H 12/15/22 08:22 Lactate 1.1 mmol/L (0.4-2.0) 12/14/22 17:00 Calcium 8.1 mg/dl (8.6-10.3) L 12/18/22 06:45 Magnesium 1.7 mg/dl (1.7-2.4) 12/14/22 17:00 Total Bilirubin 0.6 mg/dl (0.2-1.0) 12/14/22 17:00 Direct Bilirubin 0.1 mg/dl (0-0.2) 12/14/22 17:00 AST 17 U/L (13-39) 12/14/22 17:00 ALT 15 U/L (7-52) 12/14/22 17:00 Alkaline Phosphatase 96 U/L (34-104) 12/14/22 17:00 C-Reactive Protein 8.18 mg/dl (0-0.5) H 12/16/22 07:37 Total Protein 7.2 gm/dl (6.0-8.3) 12/14/22 17:00 Albumin 3.0 gm/dl (3.4-5.0) L 12/14/22 17:00 Procalcitonin 0.23 ng/ml (0-0.5) 12/14/22 17:00 Nasal Screen MRSA (PCR) Negative (Negative) 12/14/22 22:40 Random Vancomycin 14.2 mcg/ml (10-20) 12/15/22 08:22 SARS-CoV-2, RNA, NAAT NEGATIVE (NEGATIVE) 12/14/22 20:23 Impressions Ankle X-Ray 12/14/22 16:58 XR ankle LT min 3V routine CLINICAL HISTORY: Possible osteomyelitis. COMPARISON: Left ankle MRI December 05, 2022. FINDINGS: Note is made of trace soft tissue defect consistent with wound of the left ankle. There is associated soft tissue swelling. A locule of soft tissue gas is present. There is slight indistinctness of the cortex of the fibular tip with a small adjacent 4 mm bone fragment. Talar dome is intact. No additional sites of bony erosion are identified. Moderate vascular calcification is incidentally noted. No acute fractures. IMPRESSION: 1. Lateral ankle wound with associated soft tissue swelling. 2. Indistinctness of the cortex of the fibular tip suggestive of acute osteomyelitis, as shown on MRI of December 05, 2022. 3. No acute fractures. ACT 112: Negative or not required by law. Electronically signed by: Wong Lazaro M.D. 12/14/2022 6:51 PM Duplex Scan Lower Extremity Artery 12/15/22 10:59 US arterial duplex LE BI CLINICAL HISTORY: concern for peripheral vascular disease. Lower extremity pain. COMPARISON STUDY: None. FINDINGS: Scattered calcified plaque seen throughout the bilateral lower extremity arterial systems. There are normal biphasic to triphasic waveforms seen within the bilateral common femoral, superficial femoral, and right popliteal arteries. Biphasic to monophasic waveforms seen within the right calf arteries. No evidence for arterial occlusion. Monophasic waveforms left popliteal artery. Monophasic waveforms seen within the left calf arteries. Focal elevated peak soft velocities within the bilateral peroneal arteries consistent with areas of hemodynamically significant stenosis. IMPRESSION: 1. Focal areas of hemodynamically significant stenosis in the bilateral peroneal arteries. 2. No evidence for arterial occlusion. 3. Scattered calcified plaque with monophasic waveforms within the left poplite al artery, bilateral calf arteries, and bilateral dorsalis pedis arteries consistent with diffuse atherosclerotic disease. ACT 112: Negative or not required by law. Electronically signed by: Tani Contreras M.D. 12/15/2022 4:00 PM
[2022-12-18] MEDS: CEFEPIME 2,000 MG in SYRINGE 0 ML IV SCH (17:30)
[2022-12-18] MEDS: ATORVASTATIN 40 MG TAB PO SCH (22:08)
[2022-12-18] MEDS: TAMSULOSIN HCL 0.4 MG CAP PO SCH (22:09)
[2022-12-19] MEDS: PATIROMER CALCIUM SORBITEX 8.4 GM PACK PO SCH (03:08)
[2022-12-19] MEDS: LEVOTHYROXINE SODIUM 150 MCG TABLET PO SCH (05:35)
[2022-12-19] MEDS: HEPARIN SOD 5,000 UNIT/0.5 ML VIAL SQ SCH ×3 (05:36→22:14)
[2022-12-19] MEDS: CEFEPIME 2,000 MG in SYRINGE 0 ML IV SCH (05:37)
[2022-12-19 06:40] LABS: BUN Creatinine Ratio 16.3 (10-20); Calcium 7.9 mg/dl (8.6-10.3); Creatinine Clr Calc Pharmacy 31.1 ml/min; Est GFR (African American) 31.5 ml/min; Est GFR (Non-African American) 27.1 ml/min; Potassium 4.9 mmol/L (3.5-5.1)
[2022-12-19] MEDS: ADVANCED PROBIOTIC 1250 MG CAPSULE PO SCH ×3 (07:27→18:18)
[2022-12-19] MEDS: FLUoxetine HCL 20 MG CAP PO SCH (07:28)
[2022-12-19] MEDS: CYANOCOBALAMIN (B-12) 100 MCG TABLET PO SCH (07:28)
[2022-12-19] MEDS: PANTOprazole 40 MG TAB PO SCH ×2 (07:28→22:14)
[2022-12-19] MEDS: ZINC SULFATE 220 MG CAPSULE PO SCH (07:28)
[2022-12-19] MEDS: SODIUM BICARBONATE 650 MG TAB PO SCH ×2 (07:28→22:12)
[2022-12-19] MEDS: NEPHROCAPS PO SCH (07:28)
[2022-12-19] MEDS: METOCLOPRAMIDE HCL 10 MG TABLET PO SCH ×4 (07:28→22:13)
[2022-12-19] MEDS: FOLIC ACID 1 MG TAB PO SCH (07:29)
[2022-12-19] MEDS: LANTUS PER UNIT CHARGE SQ SCH ×2 (09:10→22:15)
[2022-12-19] MEDS: INSULIN ASPART PER UNIT CHARGE SC SCH ×4 (09:10→22:15)
--- NOTE | 2022-12-19 15:52 | Hospitalist Progress Note ---
Date of Service December 19, 2022 Assessment & Plan (1) Diabetic ulcer of left ankle: (2) Osteomyelitis of ankle: Plan: Patient is 57-year-old male with PMH DM I, diabetic neuropathy presented to ER for ongoing left ankle ulcer 12/05/22 Left Ankle MRI: 1. Significant motion compromised examination. 2. Large wound with significant cellulitis overlying the lateral ankle. 3. There is a 2.9 cm pocket of fluid deep to the wound which likely represents abscess. Packing material could appear similar but is considered less likely. Correlate clinically. 4. The pocket of fluid to appears to communicated with the joint space. There is a large and complex appearing joint effusion. Septic arthritis at the ankle joint is the diagnosis of exclusion. 5. There is marrow abnormality within the lateral malleolus that is highly suspicious for osteomyelitis. There is also erosion and probable osteomyelitis involving the anterior tibial plafond. 6. Milder nonspecific marrow edema is also seen within the talus and calcaneus. This could be reactive. Infection is not excluded. 7. There is significant complex fluid identified around the peroneal tendons and the flexure hallucis longus tendon. This is consistent with tenosynovitis and may be infectious. 8. There is anterior subluxation/dislocation of the talus. In ER vitals stable. No leukocytosis, lactate WNL, procalcitonin: 0.23 Left ankle x-ray: Lateral ankle wound with associated soft tissue swelling. Indistinctness of the cortex of the fibular tip suggestive of acute osteomyelitis, as shown on MRI of December 05, 2022. No acute fractures. Superficial wound culture from earlier in November grew MSSA. ESR 76, CRP of 8.18 On admission, discussed with orthopedics; recommended vascular surgery evaluation and podiatry consult. Bilateral lower extremity arterial duplex reviewed; focal areas of hemodynamically significant stenosis in bilateral peroneal arteries present. Vascular surgery consulted; did not recommend any procedure. Status post Left ankle incision and drainage, left ankle arthroscopy, wound VAC application on December 17, 2022. Discussed with infectious disease. Based on the culture results from earlier in November; recommended to stop vancomycin and flagyl, continue cefepime. If Intra-Op culture is MSSA only; plan for cefazolin for 6 weeks. Intra-Op cultures reviewed; negative so far. Switched over to cefazolin. Plan for antibiotic therapy till January 27, 2023 to complete 6 weeks course. Continue dressing changes as per podiatry. Continue wound VAC PT OT eval done; recommend rehab. Wound care consulted. (3) Diabetes mellitus type 1: Plan: A1c: 9.0% Continue basal bolus insulin Glycemic pharmacy consult (4) CKD (chronic kidney disease), stage III: Plan: CKD III-IV Labs reviewed; creatinine at baseline. Continue on oral bicarb Monitor renal functions, avoid nephrotoxic agents when possible (5) Dyslipidemia: Plan: Continue atorvastatin (6) Chronic hyponatremia: Plan: Labs reviewed; sodium of 132 today. -Continue sodium bicarb tabs (7) Chronic anemia: Plan: Anemia CKD Hgb: 11.5. On Epogen weekly Continue vitamin B12, folic acid (8) Chronic hyperkalemia: Plan: K: 4.5 On V[place] (9) Hypothyroidism: Plan: Continue levothyroxine (10) Depression: Plan: Continue fluoxetine (11) Chronic nausea: Plan: Continue PPI, Reglan DVT Prophylaxis heparin Full Code Please note the above document was generated using voice recognition software. It may contain grammatical, syntax or spelling errors. Any formal questions or concerns about the content, text or information contained within the body of this dictation should be directly addressed to the provider for clarification Admission and Anticipated Discharge Date Admission Date: December 14, 2022 Subjective Patient seen and examined at bedside. He is lying in the bed comfortably; not in distress. Denies any pain. Wound VAC in place. Review of Systems Review of Systems: All systems reviewed & are unremarkable except as noted in Subjective Physical Exam Physical Exam: Constitutional: WD/WN, vitals as above, NAD, sitting up in bed, pleasant, conversing easily Respiratory: normal respiratory effort, lungs clear to auscultation, no wheeze, rales, rhonchi. Normal insp/exp effort, no accessory muscle use Cardiovascular: RRR, no murmur, no edema Vessels: no JVD or carotid bruit Chest: normal inspection of chest Abdomen: normal bowel sounds, soft, nontender, no hepatosplenomegaly Musculoskeletal: Bandage in place which is clean dry and intact. Wound VAC in place. Skin: no rashes, warm and dry normal turgor Neurologic: Grossly intact. Decreased sensation in bilateral lower extremities. Chronic. Psychiatric: A+Ox3, euthymic affect Lymphatic: no cervical or axillary lymphadenopathy : deferred Results & Data Results & Data Vital Signs (Past 12 Hours) Vital Signs Temp Pulse Resp BP Pulse Ox O2 Del Method 12/19/22 07:36 36.9 C 83 16 134/78 94 Room Air Laboratory Results Laboratory Results WBC 8.49 K/ul (4.8-10.8) 12/18/22 06:45 RBC 4.29 M/uL (4.70-6.10) L 12/18/22 06:45 Hgb 11.3 g/dl (14.0-18.0) L 12/18/22 06:45 Hct 36.1 % (42.0-52.0) L 12/18/22 06:45 MCV 84.1 fL (80.0-100.0) 12/18/22 06:45 MCH 26.3 pg (25.0-34.0) 12/18/22 06:45 MCHC 31.3 g/dL (32.0-36.0) L 12/18/22 06:45 RDW Std Deviation 52.5 fL (36.4-46.3) H 12/18/22 06:45 RDW Coeff of Minnie 17.2 % (11.5-14.5) H 12/18/22 06:45 Plt Count 444 K/uL (130-400) H 12/18/22 06:45 MPV 9.2 fL (9.4-12.4) L 12/18/22 06:45 Immature Gran % (Auto) 0.4 % 12/18/22 06:45 Neut % (Auto) 62.1 % 12/18/22 06:45 Lymph % (Auto) 19.3 % 12/18/22 06:45 [place] % (Auto) 10.2 % 12/18/22 06:45 Eos % (Auto) 5.9 % 12/18/22 06:45 Baso % (Auto) 2.1 % 12/18/22 06:45 Neut # (Auto) 5.27 K/uL (1.40-6.50) 12/18/22 06:45 Lymph # (Auto) 1.64 K/uL (1.2-3.4) 12/18/22 06:45 [place] # (Auto) 0.87 K/uL (0.11-0.59) H 12/18/22 06:45 Eos # (Auto) 0.50 K/uL (0-0.50) 12/18/22 06:45 Baso # (Auto) 0.18 K/uL (0-0.2) 12/18/22 06:45 Immature Gran # (Auto) 0.03 K/uL (0.01-0.20) 12/18/22 06:45 ESR 76 mm/hr (0-20) H 12/16/22 07:37 Sodium 132 mmol/L (136-145) L 12/19/22 05:56 Potassium 4.9 mmol/L (3.5-5.1) 12/19/22 05:56 Chloride 106 mmol/L (98-107) 12/19/22 05:56 Carbon Dioxide 20 mmol/L (21-32) L 12/19/22 05:56 Anion Gap 6 (3-11) 12/19/22 05:56 BUN 41 mg/dl (6-23) H 12/19/22 05:56 Creatinine 2.51 mg/dl (0.6-1.4) H 12/19/22 05:56 Est Cr Clr Drug Dosing 31.1 ml/min 12/19/22 05:56 Est GFR ( Amer) 31.5 ml/min 12/19/22 05:56 Est GFR (Non-Af Amer) 27.1 ml/min 12/19/22 05:56 BUN/Creatinine Ratio 16.3 (10-20) 12/19/22 05:56 Glucose 252 mg/dl (70-99(Fasting)) H 12/19/22 05:56 POC Glucose 211 mg/dl (70-99) H 12/19/22 12:10 Estimat Average Glucose 212 mg/dl 12/15/22 08:22 Hemoglobin A1c 9.0 % (4.5-5.6) H 12/15/22 08:22 Lactate 1.1 mmol/L (0.4-2.0) 12/14/22 17:00 Calcium 7.9 mg/dl (8.6-10.3) L 12/19/22 05:56 Magnesium 1.7 mg/dl (1.7-2.4) 12/14/22 17:00 Total Bilirubin 0.6 mg/dl (0.2-1.0) 12/14/22 17:00 Direct Bilirubin 0.1 mg/dl (0-0.2) 12/14/22 17:00 AST 17 U/L (13-39) 12/14/22 17:00 ALT 15 U/L (7-52) 12/14/22 17:00 Alkaline Phosphatase 96 U/L (34-104) 12/14/22 17:00 C-Reactive Protein 8.18 mg/dl (0-0.5) H 12/16/22 07:37 Total Protein 7.2 gm/dl (6.0-8.3) 12/14/22 17:00 Albumin 3.0 gm/dl (3.4-5.0) L 12/14/22 17:00 Procalcitonin 0.23 ng/ml (0-0.5) 12/14/22 17:00 Nasal Screen MRSA (PCR) Negative (Negative) 12/14/22 22:40 Random Vancomycin 14.2 mcg/ml (10-20) 12/15/22 08:22 SARS-CoV-2, RNA, NAAT NEGATIVE (NEGATIVE) 12/14/22 20:23 Impressions Ankle X-Ray 12/14/22 16:58 XR ankle LT min 3V routine CLINICAL HISTORY: Possible osteomyelitis. COMPARISON: Left ankle MRI December 05, 2022. FINDINGS: Note is made of trace soft tissue defect consistent with wound of the left ankle. There is associated soft tissue swelling. A locule of soft tissue gas is present. There is slight indistinctness of the cortex of the fibular tip with a small adjacent 4 mm bone fragment. Talar dome is intact. No additional sites of bony erosion are identified. Moderate vascular calcification is incidentally noted. No acute fractures. IMPRESSION: 1. Lateral ankle wound with associated soft tissue swelling. 2. Indistinctness of the cortex of the fibular tip suggestive of acute osteomyelitis, as shown on MRI of December 05, 2022. 3. No acute fractures. ACT 112: Negative or not required by law. Electronically signed by: Wong Lazaro M.D. 12/14/2022 6:51 PM Duplex Scan Lower Extremity Artery 12/15/22 10:59 US arterial duplex LE BI CLINICAL HISTORY: concern for peripheral vascular disease. Lower extremity pain. COMPARISON STUDY: None. FINDINGS: Scattered calcified plaque seen throughout the bilateral lower extremity arterial systems. There are normal biphasic to triphasic waveforms seen within the bilateral common femoral, superficial femoral, and right poplite al arteries. Biphasic to monophasic waveforms seen within the right calf arteries. No evidence for arterial occlusion. Monophasic waveforms left popliteal artery. Monophasic waveforms seen within the left calf arteries. Focal elevated peak soft velocities within the bilateral peroneal arteries consistent with areas of hemodynamically significant stenosis. IMPRESSION: 1. Focal areas of hemodynamically significant stenosis in the bilateral peroneal arteries. 2. No evidence for arterial occlusion. 3. Scattered calcified plaque with monophasic waveforms within the left popliteal artery, bilateral calf arteries, and bilateral dorsalis pedis arteries consistent with diffuse atherosclerotic disease. ACT 112: Negative or not required by law. Electronically signed by: Tani Contreras M.D. 12/15/2022 4:00 PM
[2022-12-19] MEDS: ceFAZolin 2000MG 2,000 MG/15 ML SYR IV SCH (18:17)
--- NOTE | 2022-12-19 19:14 | Orthopedic Progress Note ---
Date of Service December 19, 2022 Assessment & Plan (1) Ulcer of left ankle: Plan: Patient seen, evaluated, and treated. Patient status post Day #2 Left ankle surgery. Wound Vac intact and running 125mmHg continus. Wound Care to change 3x week PRN. Awaiting culture and sensitives, No growth to date. Will Continue to follow while in house. (2) Osteomyelitis: (3) Osteomyelitis of ankle: Admission and Anticipated Discharge Date Admission Date: December 14, 2022 Subjective Patient seen at bedside status post Day #2 Left ankle surgery. He relates no complaints. Review of Systems Review of Systems: All systems reviewed & are unremarkable except as noted in Subjective Physical Exam Constitutional: cooperative and comfortable Eyes: normal visual case by confrontation Neck: trachea midline Respiratory: normal respiratory effort Skin: + ulcer (Left ankle Wound Vac intact and running) Results & Data Vital Signs (Past 12 Hours) Vital Signs Temp Pulse Resp BP Pulse Ox O2 Del Method 12/19/22 16:19 36.8 C 78 16 135/76 96 Room Air 12/19/22 07:36 36.9 C 83 16 134/78 94 Room Air (1) Ulcer of left ankle Non-pressure ulcer stage: with necrosis of bone Qualified Code(s): L97.324 - 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
[2022-12-19] MEDS: ATORVASTATIN 40 MG TAB PO SCH (22:12)
[2022-12-19] MEDS: TAMSULOSIN HCL 0.4 MG CAP PO SCH (22:13)
[2022-12-20] MEDS: ceFAZolin 2000MG 2,000 MG/15 ML SYR IV SCH ×2 (04:48→16:42)
[2022-12-20] MEDS: PATIROMER CALCIUM SORBITEX 8.4 GM PACK PO SCH (04:49)
[2022-12-20] MEDS: HEPARIN SOD 5,000 UNIT/0.5 ML VIAL SQ SCH ×3 (06:12→22:30)
[2022-12-20] MEDS: LEVOTHYROXINE SODIUM 150 MCG TABLET PO SCH (06:12)
[2022-12-20 07:45] LABS: BUN Creatinine Ratio 16.7 (10-20); Calcium 8.3 mg/dl (8.6-10.3); Creatinine Clr Calc Pharmacy 31.9 ml/min; Est GFR (African American) 32.4 ml/min; Potassium 4.7 mmol/L (3.5-5.1)
[2022-12-20] MEDS: PANTOprazole 40 MG TAB PO SCH ×2 (08:40→22:32)
[2022-12-20] MEDS: METOCLOPRAMIDE HCL 10 MG TABLET PO SCH ×4 (08:40→22:33)
[2022-12-20] MEDS: ADVANCED PROBIOTIC 1250 MG CAPSULE PO SCH ×3 (08:41→16:42)
[2022-12-20] MEDS: SODIUM BICARBONATE 650 MG TAB PO SCH ×2 (08:41→22:33)
[2022-12-20] MEDS: ZINC SULFATE 220 MG CAPSULE PO SCH (08:41)
[2022-12-20] MEDS: CYANOCOBALAMIN (B-12) 100 MCG TABLET PO SCH (08:41)
[2022-12-20] MEDS: FOLIC ACID 1 MG TAB PO SCH (08:41)
[2022-12-20] MEDS: FLUoxetine HCL 20 MG CAP PO SCH (08:41)
[2022-12-20] MEDS: NEPHROCAPS PO SCH (08:42)
[2022-12-20] MEDS: LANTUS PER UNIT CHARGE SQ SCH ×2 (08:43→22:28)
[2022-12-20] MEDS: INSULIN ASPART PER UNIT CHARGE SC SCH ×4 (08:51→22:29)
--- NOTE | 2022-12-20 12:11 | Pharmacy Report ---
Pharmacy Glycemic Short Note 2 - Date of Service December 20, 2022 - Glycemic Short BSG Results (Last 24 hours): 12/19/22 12/19/22 12/19/22 12:10 16:56 20:40 Glucose POC Glucose 211 H 196 H 205 H 12/20/22 12/20/22 12/20/22 06:32 08:01 09:48 Glucose 137 H POC Glucose 133 H 127 H 12/20/22 11:45 Glucose POC Glucose 115 H OUTPATIENT ANTIDIABETIC REGIMEN: * Lantus 15 units SQ qAM * Novolin-R 2 units SQ BID plus sliding scale * HbA1c: 9.0% (12/15/22) ASSESSMENT: 12/20: * BSGs [phone]/dL the last 24h. Fasting BSG within goal range this AM. Received 14 units of basal and 9 units of bolus insulin yesterday. * Continues on antibiotics, POD#3, and tolerating a diet. * Continue basal dose of 7 units BID. Novolog tightened to yesterday- continue. 12/15: * Mr Fitch is a 57 year old incarcerated M admitted for treatment of L ankle cellulitis/abscess/osteo. * PMH is significant for CKD, significant DM neuropathy, type 1 DM * Lantus dose split into BID dosing for admission, in case pt would become NPO for any procedures. Ortho has been consulted and no procedures are scheduled at this time. Waiting for eval from podiatry and vascular surgery. * Pharmacy will continue to follow and adjust regimen as indicated. PLAN FOR INPATIENT GLYCEMIC CONTROL: * Basal insulin * Lantus 7 units SQ BID * Bolus insulin * NovoLog per scale ACHS or Q6hrs while NPO * Goal Range: Low 110 mg/dL - High 140 mg/dL * Correction Factor: 30 mg/dL/unit * Nutritional / Prandial insulin per carb ratio of 1 unit per 15 grams CHO consumed
--- NOTE | 2022-12-20 17:12 | Hospitalist Progress Note ---
Date of Service December 20, 2022 Assessment & Plan (1) Diabetic ulcer of left ankle: (2) Osteomyelitis of ankle: Plan: Patient is 57-year-old male with PMH DM I, diabetic neuropathy presented to ER for ongoing left ankle ulcer 12/05/22 Left Ankle MRI: 1. Significant motion compromised examination. 2. Large wound with significant cellulitis overlying the lateral ankle. 3. There is a 2.9 cm pocket of fluid deep to the wound which likely represents abscess. Packing material could appear similar but is considered less likely. Correlate clinically. 4. The pocket of fluid to appears to communicated with the joint space. There is a large and complex appearing joint effusion. Septic arthritis at the ankle joint is the diagnosis of exclusion. 5. There is marrow abnormality within the lateral malleolus that is highly suspicious for osteomyelitis. There is also erosion and probable osteomyelitis involving the anterior tibial plafond. 6. Milder nonspecific marrow edema is also seen within the talus and calcaneus. This could be reactive. Infection is not excluded. 7. There is significant complex fluid identified around the peroneal tendons and the flexure hallucis longus tendon. This is consistent with tenosynovitis and may be infectious. 8. There is anterior subluxation/dislocation of the talus. In ER vitals stable. No leukocytosis, lactate WNL, procalcitonin: 0.23 Left ankle x-ray: Lateral ankle wound with associated soft tissue swelling. Indistinctness of the cortex of the fibular tip suggestive of acute osteomyelitis, as shown on MRI of December 05, 2022. No acute fractures. Superficial wound culture from earlier in November grew MSSA. ESR 76, CRP of 8.18 On admission, discussed with orthopedics; recommended vascular surgery evaluation and podiatry consult. Bilateral lower extremity arterial duplex reviewed; focal areas of hemodynamically significant stenosis in bilateral peroneal arteries present. Vascular surgery consulted; did not recommend any procedure. Status post Left ankle incision and drainage, left ankle arthroscopy, wound VAC application on December 17, 2022. Discussed with infectious disease. Based on the culture results from earlier in November; recommended to stop vancomycin and flagyl, continue cefepime. Intra-Op cultures reviewed; negative so far. Switched over to cefazolin. Plan for antibiotic therapy till January 27, 2023 to complete 6 weeks course. Discussed with case management [facility]. PICC line placed. Inform surgery to arrange for wound VAC and IV medications. Discussed with Dr. Stout from podiatry ; follow-up in 7 to 10 days after DC (3) Diabetes mellitus type 1: Plan: A1c: 9.0% Continue basal bolus insulin Glycemic pharmacy consult (4) CKD (chronic kidney disease), stage III: Plan: CKD III-IV Labs reviewed; creatinine at baseline. Continue on oral bicarb Monitor renal functions, avoid nephrotoxic agents when possible (5) Dyslipidemia: Plan: Continue atorvastatin (6) Chronic hyponatremia: Plan: Labs reviewed; sodium of 132 today. -Continue sodium bicarb tabs (7) Chronic anemia: Plan: Anemia CKD Hemoglobin stable On Epogen weekly Continue vitamin B12, folic acid (8) Chronic hyperkalemia: Plan: Stable On Veltassa (9) Hypothyroidism: Plan: Continue levothyroxine (10) Depression: Plan: Continue fluoxetine (11) Chronic nausea: Plan: Continue PPI, Reglan DVT Prophylaxis heparin Full Code Dispo; patient can be transferred back to [facility] after arrangement of IV antibiotics and wound VAC Please note the above document was generated using voice recognition software. It may contain grammatical, syntax or spelling errors. Any formal questions or concerns about the content, text or information contained within the body of this dictation should be directly addressed to the provider for clarification Admission and Anticipated Discharge Date Admission Date: December 14, 2022 Subjective Patient seen and examined at bedside. He is comfortable; not in any distress. He denies any pain. Review of Systems Review of Systems: All systems reviewed & are unremarkable except as noted in Subjective Physical Exam Physical Exam: Constitutional: WD/WN, vitals as above, NAD, sitting up in bed, pleasant, conversing easily Respiratory: normal respiratory effort, lungs clear to auscultation, no wheeze, rales, rhonchi. Normal insp/exp effort, no accessory muscle use Cardiovascular: RRR, no murmur, no edema Vessels: no JVD or carotid bruit Chest: normal inspection of chest Abdomen: normal bowel sounds, soft, nontender, no hepatosplenomegaly Musculoskeletal: Bandage in place which is clean dry and intact. Wound VAC in place. Skin: no rashes, warm and dry normal turgor Neurologic: Grossly intact. Decreased sensation in bilateral lower extremities. Chronic. Psychiatric: A+Ox3, euthymic affect Lymphatic: no cervical or axillary lymphadenopathy : deferred Results & Data Results & Data Vital Signs (Past 12 Hours) Vital Signs Temp Pulse Resp BP Pulse Ox O2 Del Method 12/20/22 15:46 36.7 C 75 16 117/70 96 Room Air 12/20/22 08:40 Room Air 12/20/22 07:36 36.7 C 80 16 126/72 94 Room Air Laboratory Results Laboratory Results WBC 8.49 K/ul (4.8-10.8) 12/18/22 06:45 RBC 4.29 M/uL (4.70-6.10) L 12/18/22 06:45 Hgb 11.3 g/dl (14.0-18.0) L 12/18/22 06:45 Hct 36.1 % (42.0-52.0) L 12/18/22 06:45 MCV 84.1 fL (80.0-100.0) 12/18/22 06:45 MCH 26.3 pg (25.0-34.0) 12/18/22 06:45 MCHC 31.3 g/dL (32.0-36.0) L 12/18/22 06:45 RDW Std Deviation 52.5 fL (36.4-46.3) H 12/18/22 06:45 RDW Coeff of Minnie 17.2 % (11.5-14.5) H 12/18/22 06:45 Plt Count 444 K/uL (130-400) H 12/18/22 06:45 MPV 9.2 fL (9.4-12.4) L 12/18/22 06:45 Immature Gran % (Auto) 0.4 % 12/18/22 06:45 Neut % (Auto) 62.1 % 12/18/22 06:45 Lymph % (Auto) 19.3 % 12/18/22 06:45 [place] % (Auto) 10.2 % 12/18/22 06:45 Eos % (Auto) 5.9 % 12/18/22 06:45 Baso % (Auto) 2.1 % 12/18/22 06:45 Neut # (Auto) 5.27 K/uL (1.40-6.50) 12/18/22 06:45 Lymph # (Auto) 1.64 K/uL (1.2-3.4) 12/18/22 06:45 [place] # (Auto) 0.87 K/uL (0.11-0.59) H 12/18/22 06:45 Eos # (Auto) 0.50 K/uL (0-0.50) 12/18/22 06:45 Baso # (Auto) 0.18 K/uL (0-0.2) 12/18/22 06:45 Immature Gran # (Auto) 0.03 K/uL (0.01-0.20) 12/18/22 06:45 ESR 76 mm/hr (0-20) H 12/16/22 07:37 Sodium 134 mmol/L (136-145) L 12/20/22 06:32 Potassium 4.7 mmol/L (3.5-5.1) 12/20/22 06:32 Chloride 107 mmol/L (98-107) 12/20/22 06:32 Carbon Dioxide 21 mmol/L (21-32) 12/20/22 06:32 Anion Gap 6 (3-11) 12/20/22 06:32 BUN 41 mg/dl (6-23) H 12/20/22 06:32 Creatinine 2.45 mg/dl (0.6-1.4) H 12/20/22 06:32 Est Cr Clr Drug Dosing 31.9 ml/min 12/20/22 06:32 Est GFR ( Amer) 32.4 ml/min 12/20/22 06:32 Est GFR (Non-Af Amer) 28.0 ml/min 12/20/22 06:32 BUN/Creatinine Ratio 16.7 (10-20) 12/20/22 06:32 Glucose 137 mg/dl (70-99(Fasting)) H 12/20/22 06:32 POC Glucose 115 mg/dl (70-99) H 12/20/22 11:45 Estimat Average Glucose 212 mg/dl 12/15/22 08:22 Hemoglobin A1c 9.0 % (4.5-5.6) H 12/15/22 08:22 Lactate 1.1 mmol/L (0.4-2.0) 12/14/22 17:00 Calcium 8.3 mg/dl (8.6-10.3) L 12/20/22 06:32 Magnesium 1.7 mg/dl (1.7-2.4) 12/14/22 17:00 Total Bilirubin 0.6 mg/dl (0.2-1.0) 12/14/22 17:00 Direct Bilirubin 0.1 mg/dl (0-0.2) 12/14/22 17:00 AST 17 U/L (13-39) 12/14/22 17:00 ALT 15 U/L (7-52) 12/14/22 17:00 Alkaline Phosphatase 96 U/L (34-104) 12/14/22 17:00 C-Reactive Protein 8.18 mg/dl (0-0.5) H 12/16/22 07:37 Total Protein 7.2 gm/dl (6.0-8.3) 12/14/22 17:00 Albumin 3.0 gm/dl (3.4-5.0) L 12/14/22 17:00 Procalcitonin 0.23 ng/ml (0-0.5) 12/14/22 17:00 Nasal Screen MRSA (PCR) Negative (Negative) 12/14/22 22:40 Random Vancomycin 14.2 mcg/ml (10-20) 12/15/22 08:22 SARS-CoV-2, RNA, NAAT NEGATIVE (NEGATIVE) 12/14/22 20:23 Impressions Ankle X-Ray 12/14/22 16:58 XR ankle LT min 3V routine CLINICAL HISTORY: Possible osteomyelitis. COMPARISON: Left ankle MRI December 05, 2022. FINDINGS: Note is made of trace soft tissue defect consistent with wound of the left ankle. There is associated soft tissue swelling. A locule of soft tissue gas is present. There is slight indistinctness of the cortex of the fibular tip with a small adjacent 4 mm bone fragment. Talar dome is intact. No additional sites of bony erosion are identified. Moderate vascular calcification is incidentally noted. No acute fractures. IMPRESSION: 1. Lateral ankle wound with associated soft tissue swelling. 2. Indistinctness of the cortex of the fibular tip suggestive of acute osteomyelitis, as shown on MRI of December 05, 2022. 3. No acute fractures. ACT 112: Negative or not required by law. Electronically signed by: Wong Lazaro M.D. 12/14/2022 6:51 PM Duplex Scan Lower Extremity Artery 12/15/22 10:59 US arterial duplex LE BI CLINICAL HISTORY: concern for peripheral vascular disease. Lower extremity pain. COMPARISON STUDY: None. FINDINGS: Scattered calcified plaque seen throughout the bilateral lower extremity arterial systems. There are normal biphasic to triphasic waveforms seen within the bilateral common femoral, superficial femoral, and right popliteal arteries. Biphasic to monophasic waveforms seen within the right calf arteries. No evidence for arterial occlusion. Monophasic waveforms left popliteal artery. Monophasic waveforms seen within the left calf arteries. Focal elevated peak soft velocities within the bilateral peroneal arteries consistent with areas of hemodynamically significant stenosis. IMPRESSION: 1. Focal areas of hemodynamically significant stenosis in the bilateral peroneal arteries. 2. No evidence for arterial occlusion. 3. Scattered calcified plaque with monophasic waveforms within the left popliteal artery, bilateral calf arteries, and bilateral dorsalis pedis arteries consistent with diffuse atherosclerotic disease. ACT 112: Negative or not required by law. Electronically signed by: Tani Contreras M.D. 12/15/2022 4:00 PM
[2022-12-20] MEDS: TAMSULOSIN HCL 0.4 MG CAP PO SCH (22:32)
[2022-12-20] MEDS: ATORVASTATIN 40 MG TAB PO SCH (22:32)
[2022-12-21] MEDS: ceFAZolin 2000MG 2,000 MG/15 ML SYR IV SCH ×2 (04:01→15:59)
[2022-12-21] MEDS: PATIROMER CALCIUM SORBITEX 8.4 GM PACK PO SCH (04:03)
[2022-12-21] MEDS: LEVOTHYROXINE SODIUM 150 MCG TABLET PO SCH (05:50)
[2022-12-21] MEDS: HEPARIN SOD 5,000 UNIT/0.5 ML VIAL SQ SCH ×3 (05:51→21:26)
[2022-12-21 06:38] LABS: Calcium 8.4 mg/dl (8.6-10.3); Potassium 4.8 mmol/L (3.5-5.1)
[2022-12-21 06:44] LABS: BUN Creatinine Ratio 18.6 (10-20); Creatinine Clr Calc Pharmacy 31.6 ml/min; Est GFR (African American) 32.1 ml/min; Est GFR (Non-African American) 27.7 ml/min
[2022-12-21] MEDS: LANTUS PER UNIT CHARGE SQ SCH ×2 (09:40→21:28)
[2022-12-21] MEDS: INSULIN ASPART PER UNIT CHARGE SC SCH ×4 (09:40→21:27)
[2022-12-21] MEDS: FOLIC ACID 1 MG TAB PO SCH (09:46)
[2022-12-21] MEDS: ADVANCED PROBIOTIC 1250 MG CAPSULE PO SCH ×3 (09:46→18:12)
[2022-12-21] MEDS: SODIUM BICARBONATE 650 MG TAB PO SCH ×2 (09:46→21:26)
[2022-12-21] MEDS: NEPHROCAPS PO SCH (09:46)
[2022-12-21] MEDS: PANTOprazole 40 MG TAB PO SCH ×2 (09:46→21:25)
[2022-12-21] MEDS: FLUoxetine HCL 20 MG CAP PO SCH (09:46)
[2022-12-21] MEDS: CYANOCOBALAMIN (B-12) 100 MCG TABLET PO SCH (09:47)
[2022-12-21] MEDS: ZINC SULFATE 220 MG CAPSULE PO SCH (09:47)
[2022-12-21] MEDS: METOCLOPRAMIDE HCL 10 MG TABLET PO SCH ×4 (10:24→21:25)
--- NOTE | 2022-12-21 10:53 | Pharmacy Report ---
Pharmacy Glycemic Short Note 2 - Date of Service December 21, 2022 - Glycemic Short BSG Results (Last 24 hours): 12/20/22 12/20/22 12/20/22 11:45 17:11 20:28 Glucose POC Glucose 115 H 84 125 H 12/21/22 12/21/22 05:46 08:05 Glucose 274 H POC Glucose 266 H OUTPATIENT ANTIDIABETIC REGIMEN: * Lantus 15 units SQ qAM * Novolin-R 2 units SQ BID plus sliding scale * HbA1c: 9.0% (12/15/22) ASSESSMENT: 12/21: * POD4, remains on cefazolin. * Blood sugars well controlled yesterday since adjusting CF/CR on 12/19, but elevated this AM, consider increasing PM Lantus if trend continues, no changes at this time. 12/20: * BSGs [phone]/dL the last 24h. Fasting BSG within goal range this AM. Received 14 units of basal and 9 units of bolus insulin yesterday. * Continues on antibiotics, POD#3, and tolerating a diet. * Continue basal dose of 7 units BID. Novolog tightened to 30/15 yesterday- continue. 12/15: * Mr Fitch is a 57 year old incarcerated M admitted for treatment of L ankle cellulitis/abscess/osteo. * PMH is significant for CKD, significant DM neuropathy, type 1 DM * Lantus dose split into BID dosing for admission, in case pt would become NPO for any procedures. Ortho has been consulted and no procedures are scheduled at this time. Waiting for eval from podiatry and vascular surgery. * Pharmacy will continue to follow and adjust regimen as indicated. PLAN FOR INPATIENT GLYCEMIC CONTROL: * Basal insulin * Lantus 7 units SQ BID * Bolus insulin * NovoLog per scale ACHS or Q6hrs while NPO * Goal Range: Low 110 mg/dL - High 140 mg/dL * Correction Factor: 30 mg/dL/unit * Nutritional / Prandial insulin per carb ratio of 1 unit per 15 grams CHO consumed
[2022-12-21] MEDS ORDERED: LANTUS PER UNIT CHARGE SQ STA (12:07)
--- NOTE | 2022-12-21 19:46 | Hospitalist Progress Note ---
Date of Service December 21, 2022 Assessment & Plan (1) Diabetic ulcer of left ankle: (2) Osteomyelitis of ankle: Plan: Patient is 57-year-old male with PMH DM I, diabetic neuropathy presented to ER for ongoing left ankle ulcer c/b osteomyelitis and abscess MRI performed prehospital revealing osteomyelitis refractory to outpatient doxy PO x 10 days. No sepsis on admission In ER vitals stable. No leukocytosis, lactate WNL, procalcitonin: 0.23 Left ankle x-ray: Lateral ankle wound with associated soft tissue swelling. Indistinctness of the cortex of the fibular tip suggestive of acute osteomyelitis, as shown on MRI of December 05, 2022. No acute fractures. Superficial wound culture from earlier in November grew MSSA. ESR 76, CRP of 8.18 On admission, discussed with orthopedics; recommended vascular surgery evaluation and podiatry consult. Bilateral lower extremity arterial duplex reviewed; focal areas of hemodynamically significant stenosis in bilateral peroneal arteries present. Vascular surgery consulted; did not recommend any procedure. Status post Left ankle incision and drainage, left ankle arthroscopy, wound VAC application on December 17, 2022. Discussed with infectious disease. Based on the culture results from earlier in November; recommended to stop vancomycin and flagyl, continue cefepime. Intra-Op cultures reviewed; negative so far. Switched over to cefazolin. Plan for antibiotic therapy till January 29, 2023 to complete 6 weeks course. PICC placed 12/[address] Stout from podiatry ; follow-up in 7 to 10 days after DC Awaiting wound vac to longterm per case management. (3) Diabetes mellitus type 1: Plan: A1c: 9.0% Continue basal bolus insulin, hyperglycemia x 2 today. Intensified glargine with good result. Cont BSG ACHS (4) CKD (chronic kidney disease), stage III: Plan: CKD III-IV Labs reviewed; creatinine at baseline. Continue on oral bicarb Monitor renal functions, avoid nephrotoxic agents when possible (5) Dyslipidemia: Plan: chronic, stable. Continue atorvastatin per home regimen. (6) Chronic anemia: Plan: Anemia related to CKD Hemoglobin stable On Epogen weekly Continue vitamin B12, folic acid (7) Chronic hyperkalemia: Plan: Stable, On Veltassa (8) Hypothyroidism: Plan: chronic, stable. Continue levothyroxine per home regimen (9) Depression: Plan: chronic, stable. Continue fluoxetine (10) Chronic nausea: Plan: Continue PPI, Reglan DVT Prophylaxis heparin Full Code Dispo; patient can be transferred back to [facility] after arrangement of IV antibiotics and wound VAC Kenya Cagle DO [facility] Hospitalist Admission and Anticipated Discharge Date Admission Date: December 14, 2022 Subjective 57-year-old man presented with severe diabetic ulcer complicated by osteomyelitis and abscess. Patient has a wound VAC in place and reports he has no pain He is afebrile No other symptoms noted. Review of Systems Review of Systems: All systems reviewed negative except as indicated above. Physical Exam Physical Exam: CONSTITUTIONAL: WNWD, vitals as above, generally well-appearing, NAD EYES: PERRL, normal conjunctivae, no scleral icterus, ENT: external ear and nose normal, MMM NECK: trachea midline RESPIRATORY: clear to auscultation bilaterally, no crackles, rales or wheezes, normal respiratory effort CARDIOVASCULAR: regular rate and rhythm, S1 and 2 heard without murmurs, gallops or rubs, no JVD, no peripheral edema CHEST: inspection of chest was normal GASTROINTESTINAL: soft, nontender, ND, no guarding MUSCULOSKELETAL: strength 5/5 throughout, head is normocephalic and atraumatic SKIN: warm and dry, wound vac in place over surgical wound left ankle. NEUROLOGIC: CN 2-12 grossly intact, no sensory deficit, normal cognition, normal speech, no tremor PSYCHIATRIC: alert cooperative and oriented to person, place and time. Euthymic mood, makes good eye contact, language grossly intact, recent and remote memory grossly intact. Results & Data Results & Data Vital Signs (Past 12 Hours) Vital Signs Temp Pulse Resp BP Pulse Ox O2 Del Method 12/21/22 14:55 36.6 C 77 18 121/74 98 Room Air Laboratory Results [facility] 12/21/22 05:46 Sodium 134 L Potassium 4.8 Chloride 108 H Carbon Dioxide 20 L BUN 46 H Creatinine 2.47 H Glucose 274 H Calcium 8.4 L Medications Administered Current Inpatient Medications Acetaminophen (Acetaminophen 325 Mg Tab) 650 mg PO Q4H PRN PRN Reason: pain/fever Stop: 01/13/23 22:19 Last Admin: 12/16/22 06:07 Dose: 650 mg Atorvastatin Calcium (Atorvastatin 40 Mg Tab) 40 mg PO PM MARY Stop: 01/13/23 22:19 Last Admin: 12/20/22 22:32 Dose: 40 mg Cyanocobalamin (Cyanocobalamin (B-12) 100 Mcg Tablet) 100 mcg PO QAM [facility] Stop: 01/14/23 08:59 Last Admin: 12/21/22 09:47 Dose: 100 mcg Dextrose (Dextrose 50% 50 Ml Syringe) 25 - 50 ml IV UD PRN; Protocol PRN Reason: Hypoglycemia Protocol Stop: 01/13/23 22:19 Fluoxetine HCl (Fluoxetine Hcl 20 Mg Cap) 40 mg PO QAM MARY Stop: 01/14/23 08:59 Last Admin: 12/21/22 09:46 Dose: 40 mg Folic Acid (Folic Acid 1 Mg Tab) 1 mg PO QAM [facility] Stop: 01/14/23 08:59 Last Admin: 12/21/22 09:46 Dose: 1 mg Glucagon (Glucagon For Inj 1 Mg Vial) 1 mg SQ UD PRN; Protocol PRN Reason: Hypoglycemia Protocol Stop: 01/13/23 22:19 Glucose (Glucose 10 Tab/Tube) 4 - 8 tab PO UD PRN; Protocol PRN Reason: Hypoglycemia Treatment Stop: 01/13/23 22:19 Glucose (Glucose 40% Gel 15 Gm Tube) 15 - 30 gm PO UD PRN; Protocol PRN Reason: Hypoglycemia Protocol Stop: 01/13/23 22:19 Heparin Sodium (Beef Lung) (Heparin 10 Unit/Ml 5 Ml Flush) 5 ml FLUSH PRN PRN PRN Reason: Flush Stop: 01/19/23 14:51 Last Admin: 12/21/22 05:50 Dose: 5 ml Heparin Sodium (Porcine) (Heparin Sod 5,000 Unit/0.5 Ml Vial) 5,000 units SQ Q8 MARY Stop: 01/14/23 13:59 Last Admin: 12/21/22 15:59 Dose: 5,000 units Cefazolin Sodium (Ancef 2000mg) 2,000 mg in 15 mls @ 3.75 mls/min IV Q12H [facility] Stop: 01/30/23 15:59 Last Admin: 12/21/22 15:59 Dose: 3.75 mls/min Insulin Aspart (Insulin Aspart Per Unit Charge) 0 units SC ACHS MARY Stop: 01/16/23 16:29 Last Admin: 12/21/22 18:13 Dose: 1 units Insulin Glargine (Lantus Per Unit Charge) 12 units SQ BID MARY Stop: 01/20/23 20:59 Lactobacillus Acidophilus (Advanced Probiotic 1250 Mg Capsule) 2 cap PO TIDM MARY Stop: 01/14/23 07:59 Last Admin: 12/21/22 18:12 Dose: 2 cap Levothyroxine Sodium (Levothyroxine Sodium 150 Mcg Tablet) 150 mcg PO DAILYBB MARY Stop: 01/14/23 06:29 Last Admin: 12/21/22 05:50 Dose: 150 mcg Magnesium Hydroxide (Magnesium Hydroxide Susp 30 Ml Udc) 30 ml PO Q6H PRN PRN Reason: Constipation Stop: 01/13/23 22:19 Metoclopramide HCl (Metoclopramide Hcl 10 Mg Tablet) 10 mg PO ACHS MARY Stop: 01/13/23 22:19 Last Admin: 12/21/22 18:12 Dose: 10 mg Miscellaneous (Carbohydrates For Hypoglycemia ) 15 - 30 gm PO UD PRN PRN Reason: Hypoglycemia Protocol Stop: 01/13/23 22:19 Miscellaneous Information (Pharmacy Glycemic Mgmt Consult) 1 each N/A UD PRN PRN Reason: Consult Stop: 01/13/23 22:19 Pantoprazole Sodium (Pantoprazole 40 Mg Tab) 40 mg PO BID MARY Stop: 01/13/23 22:19 Last Admin: 12/21/22 09:46 Dose: 40 mg Patiromer (Patiromer Calcium Sorbitex 8.4 Gm Pack) 25.2 gm PO DAILY@0345 MARY Stop: 01/14/23 03:44 Last Admin: 12/21/22 04:03 Dose: 25.2 gm Polyethylene Glycol (Polyethylene (Miralax) 17 Gm Pack) 17 gm PO DAILY PRN PRN Reason: Constipation Stop: 01/13/23 22:19 Sodium Bicarbonate (Sodium Bicarbonate 650 Mg Tab) 650 mg PO BID MARY Stop: 01/13/23 22:19 Last Admin: 12/21/22 09:46 Dose: 650 mg Tamsulosin HCl (Tamsulosin Hcl 0.4 Mg Cap) 0.4 mg PO HS MARY Stop: 01/13/23 22:19 Last Admin: 12/20/22 22:32 Dose: 0.4 mg Vitamin B Complex/Folic Acid (Nephrocaps) 1 cap PO DAILY MARY Stop: 01/14/23 08:59 Last Admin: 12/21/22 09:46 Dose: 1 cap Zinc Sulfate (Zinc Sulfate 220 Mg Capsule) 220 mg PO [facility] Stop: 01/14/23 08:59 Last Admin: 12/21/22 09:47 Dose: 220 mg
--- NOTE | 2022-12-21 21:12 | Orthopedic Progress Note ---
Date of Service December 21, 2022 Assessment & Plan (1) Ulcer of left ankle: Plan: Patient seen, evaluated, and treated. Patient status post Day #4 Left ankle surgery. Intra operative cultures including bone from fibula and ankle joint swab show no growth. Wound Vac intact and running 125mmHg continuous. Wound Care to change 3x week PRN. Will Continue to follow while in house. (2) Osteomyelitis: (3) Osteomyelitis of ankle: Admission and Anticipated Discharge Date Admission Date: December 14, 2022 Subjective Patient seen at bedside. Wound Vac intact and running 125mmHg continuous as directed. He has no complaints. 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
[2022-12-21] MEDS: ATORVASTATIN 40 MG TAB PO SCH (21:26)
[2022-12-21] MEDS: TAMSULOSIN HCL 0.4 MG CAP PO SCH (21:26)
[2022-12-22] MEDS: ceFAZolin 2000MG 2,000 MG/15 ML SYR IV SCH ×2 (04:08→16:13)
[2022-12-22] MEDS: PATIROMER CALCIUM SORBITEX 8.4 GM PACK PO SCH (04:18)
[2022-12-22] MEDS: LEVOTHYROXINE SODIUM 150 MCG TABLET PO SCH (06:14)
[2022-12-22] MEDS: HEPARIN SOD 5,000 UNIT/0.5 ML VIAL SQ SCH ×2 (06:15→14:50)
[2022-12-22 07:19] LABS: BUN Creatinine Ratio 20.3 (10-20); Calcium 8.6 mg/dl (8.6-10.3); Est GFR (African American) 33.7 ml/min; Est GFR (Non-African American) 29.1 ml/min; Potassium 4.6 mmol/L (3.5-5.1)
[2022-12-22] MEDS: LANTUS PER UNIT CHARGE SQ SCH (09:04)
[2022-12-22] MEDS: INSULIN ASPART PER UNIT CHARGE SC SCH ×2 (09:04→13:08)
[2022-12-22] MEDS: METOCLOPRAMIDE HCL 10 MG TABLET PO SCH ×2 (09:06→12:21)
[2022-12-22] MEDS: FOLIC ACID 1 MG TAB PO SCH (09:06)
[2022-12-22] MEDS: CYANOCOBALAMIN (B-12) 100 MCG TABLET PO SCH (09:06)
[2022-12-22] MEDS: FLUoxetine HCL 20 MG CAP PO SCH (09:06)
[2022-12-22] MEDS: NEPHROCAPS PO SCH (09:06)
[2022-12-22] MEDS: PANTOprazole 40 MG TAB PO SCH (09:06)
[2022-12-22] MEDS: ZINC SULFATE 220 MG CAPSULE PO SCH (09:06)
[2022-12-22] MEDS: ADVANCED PROBIOTIC 1250 MG CAPSULE PO SCH ×2 (09:07→12:21)
[2022-12-22] MEDS: SODIUM BICARBONATE 650 MG TAB PO SCH (09:07)
--- NOTE | 2022-12-22 16:53 | Discharge Summary ---
Discharge Summary Date of Service December 22, 2022 Notes For Next Care Provider Left ankle ulcer complicated by osteomyelitis and abscess s/p Left ankle incision and drainage, left ankle arthroscopy, wound VAC application on December 17, 2022 Cont 6 weeks of cefazolin per ID,podiatry f/u in 7-10d, ID follow up (shelter to arrange) Medication Changes From Visit ContinueIV cefazolin 2gm Q12 till January 29, 2023 to complete 6 week course, daily probiotic, increased glargine to 12 units BID Admission HPI Per Admitting Provider Patient is 57-year-old male with PMH DM I, diabetic neuropathy, HTN, dyslipidemia CKD III, chronic anemia, chronic hyponatremia, chronic hypokalemia, hypothyroidism, depression, chronic nausea vomiting, psoriasis, left ankle diabetic ulcer presented to ER for left ankle ulcer. Patient has had ongoing left ankle ulcer. Has been following with [facility] wound clinic. Previously treated with doxycycline. Patient states area is not healing. He is unaware of any discharge from area. Has neuropathy so denies any pain. 12/05/2022 left ankle MRI showed 2.9 cm pocket of fluid deep to the wound which likely represents abscess, pocket of fluid to appears to communicated with the joint space, large and complex appearing joint effusion, marrow abnormality within the lateral malleolus that is highly suspicious for osteomyelitis and e rosion and probable osteomyelitis involving the anterior tibial plafond. Patient was to have follow-up with [facility] soon. Ortho recommended patient present to hospital. Denies fever/chills, diaphoresis, worsening nausea, V/D/C, CABRERA, dizziness, syncope, vision changes, neck pain, CP, SOB, palpitations, cough, sore throat, rhinorrhea, abdominal pain, paresthesias, extremity weakness, extremity edema, urinary symptoms. Admission Exam Per Admitting Provider General: no distress, WDWN Head: normocephalic, atraumatic Eyes: conjunctiva non-injected, anicteric ENT: normal inspection external ears, nose, mucous membranes moist Neck: supple, trachea midline Lungs: clear, no respiratory distress, no wheezing/rhonchi/rales CV: RRR, no murmur, no pretibial edema Abd: normal BS, soft, non-tender Ext: no cyanosis, no calf tenderness; LLE: lateral malleolus with deep ulcer with mild surrounding erythema, +scant purulent discharge Neuro: A&O x 3, no focal deficits noted, normal affect Skin: warm, dry Principal Dx & Hospital Course #1 = Principal Diagnosis (1) Diabetic ulcer of left ankle: (2) Osteomyelitis of ankle: (3) Diabetes mellitus type 1: (4) CKD (chronic kidney disease), stage III: (5) Dyslipidemia: (6) Chronic anemia: (7) Chronic hyperkalemia: (8) Hypothyroidism: (9) Depression: (10) Chronic nausea: Plan Patient is 57-year-old male with PMH DM I, diabetic neuropathy presented to ER for ongoing left ankle ulcer complicated by osteomyelitis and abscess. MRI performed prehospital revealing osteomyelitis refractory to outpatient doxy PO x 10 days. Left ankle x-ray: Lateral ankle wound with associated soft tissue swelling. Indistinctness of the cortex of the fibular tip suggestive of acute osteomyelitis, as shown on MRI of December 05, 2022. No acute fractures. Status post Left ankle incision and drainage, left ankle arthroscopy, wound VAC application on December 17, 2022. Vascular surgery consulted; did not recommend any procedure. Per infectious disease and review of intra-operative cultures, transitioned to cefazolin 2gm Q12 till January 29, 2023 to complete 6 week course. Will need ID follow up and shelter provider stated they will arrange. PICC placed 12/20. Discussed with Dr. Stout from podiatry ; follow-up in 7-10 days after discharge. Wound Care to change 3x week PRN and wound Vac intact and running 125mmHg continuous. Poorly controlled DM with hgb a1c of 9 so glargine increased to 12 units BID for better blood sugar control. Continue other medications as prescribed. Patient underwent HIV testing during admission and was negative. Discussed results with him in person. Patient comfortable and hemodynamically stable at time of discharge. Discharge Exam Gen: WD/WN, NAD, sitting up in bed, A&Ox3 HEENT: Normocephalic, atraumatic, conjunctivae moist, sclerae anicteric, mucous membranes moist Lung: Clear to Auscultation bilaterally, no wheezes/rales/rhonchi Heart: Regular rate, regular rhythm, no murmurs, rubs, or gallops Abdomen: Soft, NT, ND +BS x 4 Extremities: Wound vac over L foot surgical wound, no edema Skin: Warm, no rash Updated Medication List Medication Instructions Recorded Confirmed Type Lactobacillus acidophilus 1 tab PO TIDM 03/05/22 12/14/22 History (Acidophilus chewable tablet) alendronate 70 mg tablet 70 mg PO WK 03/05/22 12/14/22 History aspirin 81 mg tablet,delayed 81 mg PO QAM 03/05/22 12/14/22 History release ergocalciferol (vitamin D2) 50 mcg 50 mcg PO WK 03/05/22 12/14/22 History (2,000 unit) capsule fluoxetine 20 mg capsule 40 mg PO QAM 03/05/22 12/14/22 History hydroxyzine pamoate 50 mg capsule 50 mg PO HS 03/05/22 12/14/22 History insulin regular human 100 unit/mL 2 unit subcut BID 03/05/22 12/14/22 History injection solution (Novolin R Regular U-100 Insulin) levothyroxine 150 mcg tablet 150 mcg PO DAILYBB 03/05/22 12/14/22 History metoclopramide HCl 10 mg tablet 10 mg PO ACHS 03/05/22 12/14/22 History ondansetron 8 mg disintegrating 8 mg PO TID 03/05/22 12/14/22 History tablet pantoprazole 40 mg tablet,delayed 40 mg PO BID 03/05/22 12/14/22 History release patiromer calcium sorbitex 25.2 25.2 g PO .DAILY @ 03:45 03/05/22 12/14/22 History gram oral powder packet (Veltassa) tamsulosin 0.4 mg capsule 0.4 mg PO HS 03/05/22 12/14/22 History vitamin B complex with C-folic 1 tab PO DAILY 03/05/22 12/14/22 History acid 0.8 mg-zinc citrate 50 mg tablet (Dialyvite 800 with Zinc 50) cyanocobalamin (vitamin B-12) 100 100 mcg PO QAM #30 tabs 03/06/22 12/14/22 Rx mcg tablet (Vitamin B-12) folic acid 1 mg tablet 1 mg PO QAM #30 tabs 03/06/22 12/14/22 Rx epoetin sanchez 10,000 unit/mL 10,000 unit subcut WK 11/21/22 12/14/22 History injection solution (Epogen) ascorbic acid (vitamin C) 500 mg 500 mg PO QAM 12/14/22 12/14/22 History tablet (Vitamin C) atorvastatin 40 mg tablet 40 mg PO PM 12/14/22 12/14/22 History insulin regular human 100 unit/mL 1 sliding scale dose subcut 12/14/22 12/14/22 History injection solution (Novolin R USEASDIRECTD PRN Hyperglycemia Regular U-100 Insulin) sodium bicarbonate 650 mg tablet 650 mg PO BID 12/14/22 12/14/22 History cefazolin 2 gram intravenous 2 g IV Q12 #25 ea 12/22/22 Rx solution insulin glargine 100 unit/mL 12 unit (0.12 mL) subcut BID #10 mL 12/22/22 12/14/22 Rx subcutaneous solution lactobacillus combo no.11 15 1 cap PO DAILY #30 caps 12/22/22 Rx billion cell sprinkle capsule (Probiotic) Hospital Stay Data Consultations 12/14/22 18:06 ED Decision to Admit Stat 12/14/22 22:20 Consult Infectious Diseases Routine Consult Orthopedic Surgery Routine 12/15/22 10:58 Consult Podiatry Routine 12/15/22 14:06 Consult Vascular Surgery Routine 12/19/22 21:58 Consult Wound Care Provider Routine Procedures Performed Operation Date: 12/17/22 07:30 Actual Procedures p Left Ankle Incision and Drainage, Left Ankle Arthroscopy, Wound Vac Application(Left) - Celestino Stout DPM, MS Diagnostic Imagining Performed 12/15/22 10:59 US arterial duplex LE BI Routine Pending Results Patient Have Any Pending Studies at Discharge: No Discharge Instructions Given to Patient (Per Discharging Provider) MEDICATION CHANGES: ContinueIV cefazolin 2gm Q12 till January 29, 2023 to complete 6 week course. Take a daily probiotic for GI Health while receiving IV antibiotics. Increased glargine to 12 units BID for better blood sugar control. SUMMARY OF VISIT: Admitted to hospital secondary to left ankle ulcer complicated by osteomyelitis and abscess Status post Left ankle incision and drainage, left ankle arthroscopy, wound VAC application on December 17, 2022 Per infectious disease and review of intra-operative cultures, transitioned to cefazolin (see above) Discussed with Dr. Stout from podiatry ; follow-up in 7 to 10 days after DC Wound Care to change 3x week PRN Wound Vac intact and running 125mmHg continuous DM poorly controlled with a1c 9 - glargine insulin increased as above Patient will need infectious disease follow-up. Detention provider to arrange, per warm hand off phone call with Marc. PENDING TEST RESULTS: None RECOMMENDATIONS FOR FOLLOW-UP: Follow up with PCP and podiatry as scheduled. Complete antibiotic course as above. Continue medication regimen as scheduled aside from changes noted above. OTHER INSTRUCTIONS: Seek medical attention if you have: * temperature above 101 * chest pain or trouble breathing * abdominal pain, nausea, vomiting * diarrhea, dark stools or bloody stools * any unanswered questions or concerns Call 911 if symptoms are severe. Please take good care of yourself. Call if you have any questions or problems. You can reach a [facility] hospitalist on duty at [facility] 24 hours a day by calling [phone]. Total Time Total Time Spent Total Time Spent (In Minutes): 60
== END 2022-12-22 17:37 | DRG 982 ==
LOC: ED 16:36 → 3W 18:44 → SUATTDRO 18:44 → 3W 21:47

== ENCOUNTER 2023-05-19 12:59 | Inpatient (IN) ==
--- NOTE | 2023-05-19 13:05 | ED Triage Note ---
Date of Service May 19, 2023 History of Present Illness This patient was briefly evaluated while in triage. An abbreviated physical exam was performed. This patient is a 58-year-old Male [place] inmate who presents to the ED for evaluation of right heel necrosis. Attempted debridement at the site was unsuccessful. He has had a similar necrotic wound on the left foot as well that is still open. Patient denies any pain secondary to diabetic neuropathy. According to EMS, they were told by skilled nursing staff that the necrosis started overnight, and was not there yesterday. Physical Exam CONSTITUTIONAL: Healthy and well nourished. HEENT: No conjunctival injection. MUSCULOSKELETAL: Patient is fully dressed and an ankle cuffs. The wound was not evaluated in triage. INTEGUMENTARY: No rash or other significant dermatologic conditions noted. HEMATOLOGIC: No ecchymosis or petechiae. PSYCHIATRIC: Positive affect. NEUROLOGIC: Patient has poor sensation to bilateral feet. Initial orders for labs and / or imaging were placed and patient was placed in the waiting area until a bed is available. Please see further documentation for the full ED course.
--- NOTE | 2023-05-19 13:59 | XRay Report ---
XR calcaneus RT min 2V CLINICAL HISTORY: R heel wound TECHNIQUE: 2 views of the right calcaneus were obtained. Comparison: None available at the time of this dictation. FINDINGS: No evidence of bony erosion is seen. The alignment is anatomic. The joint spaces are well preserved. Vascular calcification and soft tissue swelling are seen. IMPRESSION: No radiographic evidence of osteomyelitis. If clinical concern remains, MRI is a more sensitive modal ity. ACT 112: Negative or not required by law. Electronically signed by: Sb Becker M.D. 05/19/2023 1:58 PM
[2023-05-19 14:46] LABS: Basophils # (auto) 0.16 K/uL (0.00-0.20); Basophils % (auto) 1.3 %; Eosinophils # (auto) 0.41 K/uL (0.00-0.50); Eosinophils % (auto) 3.3 %; Hematocrit (blood only) 24.7 % (42.0-52.0); Hemoglobin 7.7 g/dl (14.0-18.0); Immature Granulocytes # (auto) 0.05 K/uL (0.01-0.20); Immature Granulocytes % (auto) 0.4 %; Lymphocytes # (auto) 2.66 K/uL (1.20-3.40); Lymphocytes % (auto) 21.3 %; Mean Corpuscular Hemoglobin 29.6 pg (25.0-34.0); Mean Corpuscular Hgb Conc 31.2 g/dL (32.0-36.0); Monocytes # (auto) 1.06 K/uL (0.11-0.59); Monocytes % (auto) 8.5 %; Neutrophils # (auto) 8.16 K/uL (1.40-6.50); Neutrophils % (auto) 65.2 %; Platelet Count 440 K/uL (130-400); RDW Coefficient of Variation 16.4 % (11.5-14.5); RDW Standard Deviation 56.7 fL (36.4-46.3)
[2023-05-19 14:59] LABS: Albumin Globulin Ratio 0.9 (0.9-2); Albumin Level 3.5 gm/dl (3.4-5.0); BUN Creatinine Ratio 19.5 (10-20); Bilirubin,Total 0.4 mg/dl (0.2-1.0); Calcium 8.6 mg/dl (8.6-10.3); Globulin 3.8 gm/dl (2.5-4.0); Potassium 5.5 mmol/L (3.5-5.1); Total Protein 7.3 gm/dl (6.0-8.3)
[2023-05-19 15:28] LABS: Polychromasia 1+
[2023-05-19] MEDS ORDERED: VANCOMYCIN HCL 1,500 MG in SODIUM CHLORIDE 0.9% 500 ML IV ONE (16:52)
[2023-05-19] MEDS ORDERED: PIPERACILLIN/TAZOBACTAM 4.5 GM/100 ML BAG IV ONE (16:52)
[2023-05-19] MEDS ORDERED: VANCOMYCIN CONSULT ACTIVE PRN (16:52)
[2023-05-19] MEDS ORDERED: SODIUM CHLORIDE 0.9% 1,000 ML IV ONE (16:56)
--- NOTE | 2023-05-19 16:56 | Emergency Department Note ---
Impression & Plan Diabetic ulcer of right foot, Anemia, Acute hyperkalemia, Chronic kidney insufficiency ED Provider Note NAME: MARIELA [id number] MILTON AGE: 58 SEX: M : 1965 ARRIVES VIA: Ambulance INFORMANT: Patient, ED PROVIDER(S): Mariela Kemp DO CHIEF COMPLAINT: Infection HPI: The patient is a 58-year-old male who has a history of diabetes who pres ented to the emergency department for an evaluation of an ulcer on his right heel. This been ongoing for approximately 1 month but it started to worsen over the course of the last few weeks. He was taking oral antibiotics at the half-way. The patient was sent to the emergency department because of worsening symptoms. ROS: See above HPI for pertinent positives & negatives. A total of 10 systems reviewed and were otherwise negative. PAST MEDICAL HISTORY: See Below PAST SURGICAL HISTORY: See Below FAMILY HISTORY: See Below SOCIAL HISTORY: See Below HOME MEDICATIONS: See Below ALLERGIES: See Below VITALS: See Below PHYSICAL EXAMINATION: GENERAL: Patient is awake alert in no acute distress patient is resting comfortably and showing no signs of anxiety EYES: The conjunctivae are clear. The pupils are round and reactive. EARS, NOSE, MOUTH AND THROAT: The nose is without any evidence of any deformity. NECK: The neck is nontender and supple. RESPIRATORY: Normal respiratory effort is noted there is no evidence of wheezing rhonchi or rales CARDIOVASCULAR: Regular rate and rhythm noted there no murmurs rubs or gallops normal S1 normal S2. GASTROINTESTINAL: The abdomen is soft. Abdomen is nontender. MUSCULOSKELETAL/EXTREMITIES: There is no evidence of gross deformity full range of motion is noted in the hips and shoulders. SKIN: There is swelling and erythema noted to the right foot. There is an ulceration noted on the right heel. Skin is warm and dry. Pedal edema was noted bilaterally right greater than left. NEUROLOGIC: Patient is awake alert and oriented x3 MEDICAL DECISION MAKING: The patient is a 58-year-old male who presented to the emergency department for an evaluation of foot swelling and pain. The patient had a diabetic ulcer. Has been on antibiotics at the present but his symptoms continue to worsen. For this reason I discussed patient's condition with the on-call [facility] ist. He was started on IV antibiotics. Patient may have an underlying infection. Given the fact that he has had surgical intervention in this foot he may require further work-up. Triage Nursing notes reviewed. Prior medical records reviewed. Records from the half-way were reviewed. Vital Signs: reviewed and remarkable for no significant abnormalities Differential diagnosis: Cellulitis, abscess, MRSA infection, DVT, necrotizing fasciitis, dermatitis, drug eruption, allergic reaction, as well as other pathologies. ER treatment provided: See below Diagnostics interpreted by me: ECG: EKG was obtained in the emergency department. My interpretation is normal sinus rhythm at 72 bpm. There is no ectopy. There is no acute ST segment abnormalities noted. This was compared to a tracing from December 14, 2022. No changes were noted. Cardiac Monitoring: An order was placed for continuous cardiac monitoring. The monitor shows a rate of 78 bpm with sinus rhythm. Laboratory studies: As stated above and show below. Imaging studies: See below. Radiographic imaging was reviewed by myself Consultation(s): I discussed this case with Lydia who is on-call for the [facility] hospitalist group. Past Med/Surg History Medical History Chronic anemia Chronic hyperkalemia Chronic hyponatremia Chronic nausea CKD (chronic kidney disease) Diabetes mellitus type 1 Hypothyroidism Non-STEMI (non-ST elevated myocardial infarction) NSTEMI (non-ST elevated myocardial infarction) Orthostatic hypotension on chronic fludrocortisone Proteinuria Psoriasis Surgical History Status post right foot surgery Family History Other Heart disease Social History Smoking Status: Former smoker Tobacco Type: Cigarettes Cigarettes Per Day: 1 ppd; Second Hand Exposure: No; Do You Dip or Chew Tobacco: No; Hx Alcohol Use: No Hx Substance Use: No Preferred Language: Burkinan Communication Ability: Effective Visual Impairment: No Limitations Adjuster Piano Action Required: No Beliefs That Will Affect Care: None Current Living Situation: Other Current Living Situation Comment: inmate Feels Safe at Home: Yes Assistive Devices: None Allergies Allergies Allergy/AdvReac Type Severity Reaction Status Date / Time sodium chloride AdvReac Unknown CONTRAINDIC Verified 11/21/22 09:44 [From [place] Nasal] ATED. Home Meds Home Medications Medication Instructions Recorded Confirmed Lactobacillus acidophilus 1 tab PO TIDM 03/05/22 05/19/23 (Acidophilus chewable tablet) alendronate 70 mg tablet 70 mg PO WK 03/05/22 05/19/23 aspirin 81 mg tablet,delayed 81 mg PO QAM 03/05/22 05/19/23 release ergocalciferol (vitamin D2) 50 mcg 50 mcg PO WK 03/05/22 05/19/23 (2,000 unit) capsule fluoxetine 20 mg capsule 40 mg PO QAM 03/05/22 05/19/23 hydroxyzine pamoate 50 mg capsule 50 mg PO HS 03/05/22 05/19/23 insulin regular human 100 unit/mL 2 unit subcut BID 03/05/22 05/19/23 injection solution (Novolin R Regular U-100 Insulin) levothyroxine 150 mcg tablet 150 mcg PO DAILYBB 03/05/22 05/19/23 metoclopramide HCl 10 mg tablet 10 mg PO ACHS 03/05/22 05/19/23 ondansetron 8 mg disintegrating 8 mg PO TID 03/05/22 05/19/23 tablet pantoprazole 40 mg tablet,delayed 40 mg PO BID 03/05/22 05/19/23 release patiromer calcium sorbitex 25.2 25.2 g PO .DAILY @ 03:45 03/05/22 05/19/23 gram oral powder packet (Veltassa) tamsulosin 0.4 mg capsule 0.4 mg PO HS 03/05/22 05/19/23 vitamin B complex with C-folic 1 tab PO DAILY 03/05/22 05/19/23 acid 0.8 mg-zinc citrate 50 mg tablet (Dialyvite 800 with Zinc 50) epoetin sanchez 10,000 unit/mL 10,000 unit subcut WK 11/21/22 05/19/23 injection solution (Epogen) ascorbic acid (vitamin C) 500 mg 500 mg PO QAM 12/14/22 05/19/23 tablet (Vitamin C) atorvastatin 40 mg tablet 40 mg PO HS 12/14/22 05/19/23 insulin regular human 100 unit/mL 1 sliding scale dose subcut 12/14/22 05/19/23 injection solution (Novolin R USEASDIRECTD PRN Hyperglycemia Regular U-100 Insulin) sodium bicarbonate 650 mg tablet 650 mg PO BID 12/14/22 05/19/23 ibuprofen 600 mg tablet 600 mg PO TID PRN Pain 05/19/23 05/19/23 insulin glargine 100 unit/mL 14 unit subcut DAILY 05/19/23 05/19/23 subcutaneous solution Previous Rx's Medication Instructions Recorded cyanocobalamin (vitamin B-12) 100 100 mcg PO QAM #30 tabs 03/06/22 mcg tablet (Vitamin B-12) folic acid 1 mg tablet 1 mg PO QAM #30 tabs 03/06/22 lactobacillus combo no.11 15 1 cap PO DAILY #30 caps 12/22/22 billion cell sprinkle capsule (Probiotic) Results & Data (ED) Vital Signs Vital Signs - 24 hr 05/19/23 13:03 05/19/23 18:04 05/19/23 18:05 Temperature 36.6 C Temperature Source Oral Pulse Rate 107 H Pulse Rate [Right Finger] 72 Pulse Rhythm [Right Finger] Regular Pulse Strength [Right Finger] Normal Respiratory Rate 18 19 Respiratory Effort / Characteristics Non-Labored Spontaneous Respiratory Depth Normal Blood Pressure 121/76 Blood Pressure Mean 91 Pulse Oximetry 99 97 100 Oxygen Delivery Method Room Air Room Air Sepsis Recent Fever Within 48 Hours No Sepsis New/Unexplained Change in Mental Status N/A Sepsis Action Taken by Nursing No Action Required 05/19/23 18:24 Temperature Temperature Source Pulse Rate 72 Pulse Rate [Right Finger] Pulse Rhythm [Right Finger] Pulse Strength [Right Finger] Respiratory Rate Respiratory Effort / Characteristics Respiratory Depth Blood Pressure Blood Pressure Mean Pulse Oximetry Oxygen Delivery Method Sepsis Recent Fever Within 48 Hours Sepsis New/Unexplained Change in Mental Status Sepsis Action Taken by [facility] Medications Current Medication List: was personally reviewed by me Laboratory Data Attestation: I reviewed the patient's lab results. 05/19/23 14:13 05/19/23 14:13 Lab Results 05/19/23 05/19/23 05/19/23 Range/Units 14:13 14:13 14:14 WBC 12.50 H (4.8-10.8) K/ul RBC 2.60 L (4.70-6.10) M/uL Hgb 7.7 L (14.0-18.0) g/dl Hct 24.7 L (42.0-52.0) % MCV 95.0 (80.0-100.0) fL MCH 29.6 (25.0-34.0) pg MCHC 31.2 L (32.0-36.0) g/dL RDW Std Deviation 56.7 H (36.4-46.3) fL RDW Coeff of Minnie 16.4 H (11.5-14.5) % Plt Count 440 H (130-400) K/uL MPV 9.0 L (9.4-12.4) fL Immature Gran % (Auto) 0.4 % Neut % (Auto) 65.2 % Lymph % (Auto) 21.3 % Park % (Auto) 8.5 % Eos % (Auto) 3.3 % Baso % (Auto) 1.3 % Neut # (Auto) 8.16 H (1.40-6.50) K/uL Lymph # (Auto) 2.66 (1.20-3.40) K/uL Park # (Auto) 1.06 H (0.11-0.59) K/uL Eos # (Auto) 0.41 (0.00-0.50) K/uL Baso # (Auto) 0.16 (0.00-0.20) K/uL Immature Gran # (Auto) 0.05 (0.01-0.20) K/uL Polychromasia 1+ PT 11.3 (9.0-12.0) Seconds INR 1.0 (0.9-1.1) APTT 32.0 H (21.0-31.0) Seconds PTT Ratio 1.1 VBG pH (7.36-7.41) VBG pCO2 (38-50) mmHg VBG pO2 mmHg VBG HCO3 mmol/L VBG O2 Saturation % VBG Base Excess mEq/L Sodium 133 L (136-145) mmol/L Potassium 5.5 H (3.5-5.1) mmol/L Chloride 104 (98-107) mmol/L Carbon Dioxide 21 (21-32) mmol/L Anion Gap 8 (3-11) BUN 52 H (6-23) mg/dl Creatinine 2.67 H (0.6-1.4) mg/dl Est Cr Clr Drug Dosing 32.0 ml/min Est GFR ( Amer) 29.0 ml/min Est GFR (Non-Af Amer) 25.0 ml/min BUN/Creatinine Ratio 19.5 (10-20) Glucose 233 H (70-99(Fasting)) mg/dl Lactate (0.4-2.0) mmol/L Calcium 8.6 (8.6-10.3) mg/dl Magnesium (1.7-2.4) mg/dl Total Bilirubin 0.4 (0.2-1.0) mg/dl Direct Bilirubin (0-0.2) mg/dl AST 16 (13-39) U/L ALT 23 (7-52) U/L Alkaline Phosphatase 89 (34-104) U/L Troponin I High Sens (0-20) pg/ml C-Reactive Protein (0-0.5) mg/dl Total Protein 7.3 (6.0-8.3) gm/dl Albumin 3.5 (3.4-5.0) gm/dl Globulin 3.8 (2.5-4.0) gm/dl Albumin/Globulin Ratio 0.9 (0.9-2) Procalcitonin (0-0.5) ng/ml Blood Type Antibody Screen 05/19/23 05/19/23 05/19/23 Range/Units 14:14 17:30 17:30 WBC (4.8-10.8) K/ul RBC (4.70-6.10) M/uL Hgb (14.0-18.0) g/dl Hct (42.0-52.0) % MCV (80.0-100.0) fL MCH (25.0-34.0) pg MCHC (32.0-36.0) g/dL RDW Std Deviation (36.4-46.3) fL RDW Coeff of Minnie (11.5-14.5) % Plt Count (130-400) K/uL MPV (9.4-12.4) fL Immature Gran % (Auto) % Neut % (Auto) % Lymph % (Auto) % Park % (Auto) % Eos % (Auto) % Baso % (Auto) % Neut # (Auto) (1.40-6.50) K/uL Lymph # (Auto) (1.20-3.40) K/uL Park # (Auto) (0.11-0.59) K/uL Eos # (Auto) (0.00-0.50) K/uL Baso # (Auto) (0.00-0.20) K/uL Immature Gran # (Auto) (0.01-0.20) K/uL Polychromasia PT (9.0-12.0) Seconds INR (0.9-1.1) APTT (21.0-31.0) Seconds PTT Ratio VBG pH (7.36-7.41) VBG pCO2 (38-50) mmHg VBG pO2 mmHg VBG HCO3 mmol/L VBG O2 Saturation % VBG Base Excess mEq/L Sodium 134 L (136-145) mmol/L Potassium 5.0 (3.5-5.1) mmol/L Chloride 105 (98-107) mmol/L Carbon Dioxide 22 (21-32) mmol/L Anion Gap 7 (3-11) BUN 52 H (6-23) mg/dl Creatinine 2.61 H (0.6-1.4) mg/dl Est Cr Clr Drug Dosing 32.8 ml/min Est GFR ( Amer) 29.8 ml/min Est GFR (Non-Af Amer) 25.7 ml/min BUN/Creatinine Ratio 19.9 (10-20) Glucose 228 H (70-99(Fasting)) mg/dl Lactate 0.7 (0.4-2.0) mmol/L Calcium 8.9 (8.6-10.3) mg/dl Magnesium 1.8 (1.7-2.4) mg/dl Total Bilirubin 0.4 (0.2-1.0) mg/dl Direct Bilirubin 0.0 (0-0.2) mg/dl AST 15 (13-39) U/L ALT 23 (7-52) U/L Alkaline Phosphatase 97 (34-104) U/L Troponin I High Sens 3.3 (0-20) pg/ml C-Reactive Protein 3.00 H (0-0.5) mg/dl Total Protein 7.3 (6.0-8.3) gm/dl Albumin 3.5 (3.4-5.0) gm/dl Globulin (2.5-4.0) gm/dl Albumin/Globulin Ratio (0.9-2) Procalcitonin 0.23 (0-0.5) ng/ml Blood Type Antibody Screen 05/19/23 05/19/23 Range/Units 17:30 17:30 WBC (4.8-10.8) K/ul RBC (4.70-6.10) M/uL Hgb (14.0-18.0) g/dl Hct (42.0-52.0) % MCV (80.0-100.0) fL MCH (25.0-34.0) pg MCHC (32.0-36.0) g/dL RDW Std Deviation (36.4-46.3) fL RDW Coeff of Minnie (11.5-14.5) % Plt Count (130-400) K/uL MPV (9.4-12.4) fL Immature Gran % (Auto) % Neut % (Auto) % Lymph % (Auto) % Park % (Auto) % Eos % (Auto) % Baso % (Auto) % Neut # (Auto) (1.40-6.50) K/uL Lymph # (Auto) (1.20-3.40) K/uL Park # (Auto) (0.11-0.59) K/uL Eos # (Auto) (0.00-0.50) K/uL Baso # (Auto) (0.00-0.20) K/uL Immature Gran # (Auto) (0.01-0.20) K/uL Polychromasia PT (9.0-12.0) Seconds INR (0.9-1.1) APTT (21.0-31.0) Seconds PTT Ratio VBG pH 7.29 L (7.36-7.41) VBG pCO2 45 (38-50) mmHg VBG pO2 33 mmHg VBG HCO3 22 mmol/L VBG O2 Saturation < 60.0 % VBG Base Excess -5.0 mEq/L Sodium (136-145) mmol/L Potassium (3.5-5.1) mmol/L Chloride (98-107) mmol/L Carbon Dioxide (21-32) mmol/L Anion Gap (3-11) BUN (6-23) mg/dl Creatinine (0.6-1.4) mg/dl Est Cr Clr Drug Dosing ml/min Est GFR ( Amer) ml/min Est GFR (Non-Af Amer) ml/min BUN/Creatinine Ratio (10-20) Glucose (70-99(Fasting)) mg/dl Lactate (0.4-2.0) mmol/L Calcium (8.6-10.3) mg/dl Magnesium (1.7-2.4) mg/dl Total Bilirubin (0.2-1.0) mg/dl Direct Bilirubin (0-0.2) mg/dl AST (13-39) U/L ALT (7-52) U/L Alkaline Phosphatase (34-104) U/L Troponin I High Sens (0-20) pg/ml C-Reactive Protein (0-0.5) mg/dl Total Protein (6.0-8.3) gm/dl Albumin (3.4-5.0) gm/dl Globulin (2.5-4.0) gm/dl Albumin/Globulin Ratio (0.9-2) Procalcitonin (0-0.5) ng/ml Blood Type A Positive Antibody Screen NEGATIVE Administered Medications Discontinued Medications Piperacillin Sod/Tazobactam Sod (Zosyn) 4.5 gm in 100 mls @ 200 mls/hr IV NOW ONE Stop: 05/19/23 17:21 Last Infusion: 05/19/23 17:56 Dose: 0 mls/hr Documented By: Admin: 05/19/23 17:36 Dose: 200 mls/hr Documented By: BLAKE Vancomycin HCl 1,500 mg/ (Sodium Chloride) 530 mls @ 200 mls/hr IV NOW ONE Stop: 05/19/23 19:30 Last Admin: 05/19/23 17:55 Dose: 200 mls/hr Documented By: BLAKE Sodium Chloride (Nss) 1,000 mls @ 999 mls/hr IV .Q1H1M ONE Stop: 05/19/23 17:56 Last Infusion: 05/19/23 18:34 Dose: 0 mls/hr Documented By: Admin: 05/19/23 17:33 Dose: 999 mls/hr Documented By: BLAKE Imaging Data Attestation: I personally reviewed and interpreted this imaging study as fo llows: My Impression: X-ray of the calcaneus was obtained in the emergency department. My interpretation is no fracture or free air, final report below. 1 view chest x- ray was obtained in the emergency department. My interpretation is no free air or definite infiltrate, final report below. Radiologist's Impression: Calcaneus X-Ray 05/19/23 13:05 XR calcaneus RT min 2V CLINICAL HISTORY: R heel wound TECHNIQUE: 2 views of the right calcaneus were obtained. Comparison: None available at the time of this dictation. FINDINGS: No evidence of bony erosion is seen. The alignment is anatomic. The joint spaces are well preserved. Vascular calcification and soft tissue swelling are seen. IMPRESSION: No radiographic evidence of osteomyelitis. If clinical concern remains, MRI is a more sensitive modality. ACT 112: Negative or not required by law. Electronically signed by: Sb Becker M.D. 05/19/2023 1:58 PM Chest X-Ray 05/19/23 16:28 XR chest 1V portable HISTORY: 58 years-old Male Sepsis acute sepsis COMPARISON: 03/05/2002 TECHNIQUE: AP view of the chest FINDINGS: Cardiomediastinal and hilar silhouettes are within normal limits. No pneumothorax, pleural effusion, airspace consolidation or pulmonary edema. There is no ill-defined ovoid radiodensity projected over the right scapula, possibly external to the patient. Bones appear grossly intact. IMPRESSION: No acute process. ACT 112: Negative or not required by law. The above report was generated using voice recognition software. It may contain grammatical, syntax or spelling errors. Electronically signed by: Villa Leong M.D. 05/19/2023 5:08 PM Discharge Plan Visit Data Chief Complaint: Infection, Wound Stated Complaint: R FOOT WOUND ED Provider: Mariela Kemp Discharge Problem: Diabetic ulcer of right foot, Anemia, Acute hyperkalemia, Chronic kidney insufficiency Patient Disposition: Being Evaluated by Hospitalist Forms Stand Alone Forms: [facility] Prescriptions Prescriptions: No Action Epogen 10,000 unit/mL solution 10,000 unit subcut WK Rx Instructions: FRIDAYS atorvastatin 40 mg Tablet 40 mg PO HS ascorbic acid (vitamin C) [Vitamin C] 500 mg Tablet 500 mg PO QAM sodium bicarbonate 650 mg Tablet 650 mg PO BID Novolin R Regular U100 Insulin 100 unit/mL Solution 1 sliding scale dose SUBCUT USEASDIRECTD PRN (Reason: Hyperglycemia) Rx Instructions: BSG 150-200=2 UNITS, 201-250=4 UNITS, 251-300=6 UNITS, 301-350=8 UNITS, 351- 400=10 UNITS, 401-450=12 UNITS, >450 CALL MD. Probiotic 15 billion cell capsule, sprinkle 1 cap PO DAILY Qty: 30 0RF Rx Instructions: do not crush/chew/cut; swallow whole OR may open and sprinkle in cold drink/food Acidophilus Tablet,Chewable 1 tab PO TIDM alendronate 70 mg Tablet 70 mg PO WK Rx Instructions: TAKE THIS MED EVERY MONDAY IN THE MORNING ON AN EMPTY STOMACH aspirin 81 mg Tablet,Delayed Release (Dr/Ec) 81 mg PO QAM Dialyvite 800 with Zinc 50 0.8-50 mg Tablet 1 tab PO DAILY fluoxetine 20 mg Capsule 40 mg PO QAM hydroxyzine pamoate 50 mg Capsule 50 mg PO HS levothyroxine 150 mcg Tablet 150 mcg PO DAILYBB metoclopramide HCl 10 mg Tablet 10 mg PO ACHS Rx Instructions: TAKE ONE TABLET, ORALLY, FOUR TIMES DAILY 15 MINUTES BEFORE MEALS AND AT BEDTIME ondansetron 8 mg Tablet,Disintegrating 8 mg PO TID pantoprazole 40 mg Tablet,Delayed Release (Dr/Ec) 40 mg PO BID tamsulosin 0.4 mg Capsule 0.4 mg PO HS Veltassa 25.2 gram Powder In Packet 25.2 g PO .DAILY @ 03:45 Rx Instructions: DISSOLVE ONE PACKET IN WATER AND DRINK ONCE DAILY 3 HOURS BEFORE MEALS ergocalciferol (vitamin D2) 50 mcg (2,000 unit) Capsule 50 mcg PO WK Rx Instructions: THURSDAYS Novolin R Regular U100 Insulin 100 unit/mL Solution 2 unit subcut BID cyanocobalamin (vitamin B-12) [Vitamin B-12] 100 mcg Tablet 100 mcg PO QAM Qty: 30 0RF folic acid 1 mg Tablet 1 mg PO QAM Qty: 30 0RF insulin glargine 100 unit/mL solution 14 unit SUBCUT DAILY ibuprofen 600 mg Tablet 600 mg PO TID PRN (Reason: Pain) Referrals Referrals: Deniz ESQUIVEL [Primary Care Provider] - Diabetic ulcer of right foot Qualifiers: Diabetic foot ulcer location: heel Diabetes mellitus type: other specified (including BRITT) Non-pressure ulcer stage: unspecified non-pressure ulcer stage Qualified Code(s): E13.621 - Other specified diabetes mellitus with foot ulcer Anemia Qualifiers: Anemia type: unspecified type Qualified Code(s): D64.9 - Anemia, unspecified Chronic kidney insufficiency Qualifiers: Chronic kidney disease stage: unspecified stage Qualified Code(s): N18.9 - Chronic kidney disease, unspecified
--- NOTE | 2023-05-19 17:10 | XRay Report ---
XR chest 1V portable HISTORY: 58 years-old Male Sepsis acute sepsis COMPARISON: 03/05/2002 TECHNIQUE: AP view of the chest FINDINGS: Cardiomediastinal and hilar silhouettes are within normal limits. No pneumothorax, pleural effusion, airspace consolidation or pulmonary edema. There is no ill-defined ovoid radiodensity projected over the right scapula, possibly external to the patient. Bones appear grossly intact. IMPRESSION: No acute process. ACT 112: Negative or not required by law. The above report was generated using voice recognition software. It may contain grammatical, syntax o r spelling errors. Electronically signed by: Villa Leong M.D. 05/19/2023 5:08 PM
--- NOTE | 2023-05-19 17:29 | History & Physical Report ---
Date of Service May 19, 2023 Assessment & Plan (1) Diabetic ulcer of right foot: (2) Diabetic neuropathy: (3) Diabetes mellitus type 1: Plan: - Admit to med surg -XR of the foot negative for osteomyelitis, check MRI of the right foot to assess the heel, will also check MRI of the left ankle to evaluate previous known osteomyelitis status post I&D in November -Consult podiatry, Dr. Stout, has seen the patient -Consult wound nurse -WBC 12.5, checking CRP, ESR -Wound culture of the heel, blood cultures pending -Started on IV Zosyn and Vanco in the ER, continue -Check MRSA swab -Last A1c was 9, recheck with a.m. labs -ISS with Accu-Cheks ACHS, continue Lantus 7 units Qam to reduce in half with being NPO after midnight in case of surgical procedure. (4) Acute hyperkalemia: Plan: -Potassium noted to be 5.5 on arrival, placed on fluids, recheck BMP QAM -Continue valtessa (5) Anemia: Plan: -Hemoglobin noted to be 7.7, previously has been this low in the past -Pt denies any known bleeding source - Suspect this is d/t anemia of chronic disease with kidney function -Check anemia workup: Iron, ferritin, TIBC, LDH, haptoglobin, B12, folic acid (6) Chronic kidney insufficiency: Plan: -CKD stage III noted in hx, appears he may be stage IV. Today BUN 52, creatinine 2.67, continue IV fluids, pt is not on dialysis or dx with ESRD. -Renally dose medications and avoid nephrotoxins DVT ppx: teds, scds, hold chemical prophylaxis in the setting of possible needs for surgical procedure Lines: 2 PIV FEN/GI: HH/DM type I diet, n.p.o. at midnight, if no surgery tomorrow then allow diet CODE: Full code Dispo: From [facility], likely to remain in the hospital through the weekend. History of Present Illness Chief Complaint: Right heel wound Primary Care Provider: [facility] This is a 58-year-old male, currently incarcerated at [facility], with PMHx of DM type 1, diabetic heel wound,diabetic neuropathy, HTN, dyslipidemia CKD III, chronic anemia, chronic hyponatremia, chronic hypokalemia, hypothyroidism, depression, chronic nausea vomiting, psoriasis. Patient was previously admitted in November 2022 for a left-sided ankle ulcer complicated by osteomyelitis and abscess, which was refractory to outpatient doxycycline. He underwent I&D, left ankle arthroscopy and a wound VAC was applied on December 17, 2022. At that time the patient had an A1c of 9, poorly controlled diabetes. He underwent HIV testing at that time and was negative. He presents now today with a right heel wound which has been followed by [facility] at [facility]. Pt reports having a cracked heel about a month ago, and it has just worsened over the month. He denies fever, chills, sweats. Pt is [facility]ically [place] [facility] per guards who are present at bedside. He recently completed a 7 week course of doxycycline 100 mg BID from 05/12-05/19. He was told by the nurse that it was more swollen today. He notes there is a metal plate in his ankle and was placed many years ago. Pt denies any pain in the foot as he has diabetic neuropathy and has no sensation to light touch until right below his knees bilaterally. He does not wear shoes, wears slip on shoes within the [facility]. Patient has been eating and drinking without difficulty, he does utilize antiemetics routinely throughout the day for chronic nausea. Denies any changes in bowel habits or urinary habits. Allergies Allergy/AdvReac Type Severity Reaction Status Date / Time sodium chloride AdvReac Unknown CONTRAINDIC Verified 11/21/22 09:44 [From [place] Nasal] ATED. Home Medications Medication Instructions Recorded Confirmed Type Lactobacillus acidophilus 1 tab PO TIDM 03/05/22 05/19/23 History (Acidophilus chewable tablet) alendronate 70 mg tablet 70 mg PO WK 03/05/22 05/19/23 History aspirin 81 mg tablet,delayed 81 mg PO QAM 03/05/22 05/19/23 History release ergocalciferol (vitamin D2) 50 mcg 50 mcg PO WK 03/05/22 05/19/23 History (2,000 unit) capsule fluoxetine 20 mg capsule 40 mg PO QAM 03/05/22 05/19/23 History hydroxyzine pamoate 50 mg capsule 50 mg PO HS 03/05/22 05/19/23 History insulin regular human 100 unit/mL 2 unit subcut BID 03/05/22 05/19/23 History injection solution (Novolin R Regular U-100 Insulin) levothyroxine 150 mcg tablet 150 mcg PO DAILYBB 03/05/22 05/19/23 History metoclopramide HCl 10 mg tablet 10 mg PO ACHS 03/05/22 05/19/23 History ondansetron 8 mg disintegrating 8 mg PO TID 03/05/22 05/19/23 History tablet pantoprazole 40 mg tablet,delayed 40 mg PO BID 03/05/22 05/19/23 History release patiromer calcium sorbitex 25.2 25.2 g PO .DAILY @ 03:45 03/05/22 05/19/23 History gram oral powder packet (Veltassa) tamsulosin 0.4 mg capsule 0.4 mg PO HS 03/05/22 05/19/23 History vitamin B complex with C-folic 1 tab PO DAILY 03/05/22 05/19/23 History acid 0.8 mg-zinc citrate 50 mg tablet (Dialyvite 800 with Zinc 50) cyanocobalamin (vitamin B-12) 100 100 mcg PO QAM #30 tabs 03/06/22 05/19/23 Rx mcg tablet (Vitamin B-12) folic acid 1 mg tablet 1 mg PO QAM #30 tabs 03/06/22 05/19/23 Rx epoetin sanchez 10,000 unit/mL 10,000 unit subcut WK 11/21/22 05/19/23 History injection solution (Epogen) ascorbic acid (vitamin C) 500 mg 500 mg PO QAM 12/14/22 05/19/23 History tablet (Vitamin C) atorvastatin 40 mg tablet 40 mg PO HS 12/14/22 05/19/23 History insulin regular human 100 unit/mL 1 sliding scale dose subcut 12/14/22 05/19/23 History injection solution (Novolin R USEASDIRECTD PRN Hyperglycemia Regular U-100 Insulin) sodium bicarbonate 650 mg tablet 650 mg PO BID 12/14/22 05/19/23 History lactobacillus combo no.11 15 1 cap PO DAILY #30 caps 12/22/22 05/19/23 Rx billion cell sprinkle capsule (Probiotic) ibuprofen 600 mg tablet 600 mg PO TID PRN Pain 05/19/23 05/19/23 History insulin glargine 100 unit/mL 14 unit subcut DAILY 05/19/23 05/19/23 History subcutaneous solution Past Med/Surg History Medical History Chronic anemia Chronic hyperkalemia Chronic hyponatremia Chronic nausea CKD (chronic kidney disease) Diabetes mellitus type 1 Hypothyroidism Non-STEMI (non-ST elevated myocardial infarction) NSTEMI (non-ST elevated myocardial infarction) Orthostatic hypotension on chronic fludrocortisone Proteinuria Psoriasis Surgical History Status post right foot surgery Family History Other Heart disease Social History Smoking Status: Former smoker Tobacco Type: Cigarettes Cigarettes Per Day: 1 ppd; Second Hand Exposure: No; Do You Dip or Chew Tobacco: No; Hx Alcohol Use: No Hx Substance Use: No Preferred Language: Niuean Communication Ability: Effective Visual Impairment: No Limitations Fashion Coordinator Required: No Beliefs That Will Affect Care: None Current Living Situation: Other Current Living Situation Comment: inmate Feels Safe at Home: Yes Assistive Devices: None Review of Systems Review of Systems: Constitutional: No fever, sweats or chills Eyes: No diplopia, no worsening or blurred vision ENT: normal hearing, no trouble swallowing Respiratory: No cough, sputum, dyspnea at rest or on exertion Cardiovascular: No chest pain, tightness or palpitations Abdomen: No pain, nausea, vomiting, diarrhea or constipation - pt takes medication routinely for nausea but he cannot elaborate Musculoskeletal: No joint pain, calf pain, swelling Neurologic: No weakness, + numbness/tingling to to knees bilaterally, or balance problems Psychiatric: No anxiety or depression Skin: No rash or itch Physical Exam Physical Exam: General: awake, alert, no apparent distress, elderly white male Head: Normocephalic, atraumatic ENT: PERRL, EOMI, no pharyngeal exudate, mucous membranes moist Extremities: Right foot edematous, swelling in the ankle, heel ulceration with darkened eschar, surrounding erythema but is not spreading, covers the entirety of the heel, left lateral ankle with wound which is about 1 inch in diameter, minimal surrounding erythema. Otherwise normal inspection, no peripheral edema or erythema, calfs nontender to palpation Psych: Normal mood and affect Neuro: AAO x 3, strength intact bilaterally and rated 5/5, no motor deficits, speech is clear, + distal peripheral sensory deficits with numbness at the level of below the knee Please refer to complete physical exam by attending addendum Results & Data Results & Data Vital Signs (Past 12 Hours) Vital Signs Temp Pulse Resp BP Pulse Ox 05/19/23 13:03 36.6 C 107 H 18 121/76 99 Laboratory Results 05/19/23 05/19/23 14:13 14:13 WBC 12.50 H RBC 2.60 L Hgb 7.7 L Hct 24.7 L MCV 95.0 MCH 29.6 MCHC 31.2 L RDW Std Deviation 56.7 H RDW Coeff of Minnie 16.4 H Plt Count 440 H MPV 9.0 L Immature Gran % (Auto) 0.4 Neut % (Auto) 65.2 Lymph % (Auto) 21.3 Schuyler % (Auto) 8.5 Eos % (Auto) 3.3 Baso % (Auto) 1.3 Neut # (Auto) 8.16 H Lymph # (Auto) 2.66 Schuyler # (Auto) 1.06 H Eos # (Auto) 0.41 Baso # (Auto) 0.16 Immature Gran # (Auto) 0.05 Polychromasia 1+ Sodium 133 L Potassium 5.5 H Chloride 104 Carbon Dioxide 21 Anion Gap 8 BUN 52 H Creatinine 2.67 H Est Cr Clr Drug Dosing 32.0 Est GFR ( Amer) 29.0 Est GFR (Non-Af Amer) 25.0 BUN/Creatinine Ratio 19.5 Glucose 233 H Calcium 8.6 Total Bilirubin 0.4 AST 16 ALT 23 Alkaline Phosphatase 89 Total Protein 7.3 Albumin 3.5 Globulin 3.8 Albumin/Globulin Ratio 0.9 Diagnostic Findings Calcaneus X-Ray 05/19/23 13:05 XR calcaneus RT min 2V CLINICAL HISTORY: R heel wound TECHNIQUE: 2 views of the right calcaneus were obtained. Comparison: None available at the time of this dictation. FINDINGS: No evidence of bony erosion is seen. The alignment is anatomic. The joint spaces are well preserved. Vascular calcification and soft tissue swelling are seen. IMPRESSION: No radiographic evidence of osteomyelitis. If clinical concern remains, MRI is a more sensitive modality. ACT 112: Negative or not required by law. Electronically signed by: Sb Becker M.D. 05/19/2023 1:58 PM Chest X-Ray 05/19/23 16:28 XR chest 1V portable HISTORY: 58 years-old Male Sepsis acute sepsis COMPARISON: 03/05/2002 TECHNIQUE: AP view of the chest FINDINGS: Cardiomediastinal and hilar silhouettes are within normal limits. No p neumothorax, pleural effusion, airspace consolidation or pulmonary edema. There is no ill-defined ovoid radiodensity projected over the right scapula, possibly external to the patient. Bones appear grossly intact. IMPRESSION: No acute process. ACT 112: Negative or not required by law. The above report was generated using voice recognition software. It may contain grammatical, syntax or spelling errors. Electronically signed by: Villa Leong M.D. 05/19/2023 5:08 PM ECG Additional Comments: 19-MAY-2023 16:58:43 [facility]-EDSTAT ROUTINE RETRIEVAL Sinus rhythm with short RI Otherwise normal ECG When compared with ECG of 14-DEC-2022 19:31, Nonspecific T wave abnormality no longer evident in Lateral leads 25mm/s10mm/[id number] 243CID: 19Referred by: go2 media Unconfirmed Vent. rate 72 BPM RI interval 110 ms QRS duration 92 ms QT/QTc 416/455 ms Code Status & VTE Plan Code Status Full code-discussed with patient at bedside Supervising Physician Co-Signing Physician Notes 58 year [facility] SCI male inmate with PMHx of DM type 1, diabetic heel wound,diabetic neuropathy, HTN, dyslipidemia CKD III, chronic anemia, chronic hyponatremia, chronic hypokalemia, hypothyroidism, depression, chronic nausea vomiting, psoriasis who was brought in for worsening right foot ulcer. Patient reports this has been ongoing for a month and worsening. Denied any fever, chills, nausea, vomiting Reports b/l LE neuropathy upto knees. On exam, General: No acute distress Eyes: PERRL, conjunctivae normal, not pale, anicteric sclerae, EOM intact bilaterally ENMT: External ear and nose normal, oropharynx normal Respiratory: Normal respiratory effort, no respiratory distress, lungs clear to auscultation, no crackles and no wheezes Cardiovascular: RRR S1 S2 Gastrointestinal (Abdomen): Abdomen is not distended, soft, non-tender to palpation, no guarding, no palpable hepatosplenomegaly, normal bowel sounds Musculoskeletal: Right heel wound with dark slough, Left lateral ankle wound Neurologic: Alert and oriented to person, place, month/year, No focal weakness, +sensory deficits in both legs below knee Psychiatric: Euthymic affect Diabetic foot wounds Continue Vanc and zosyn Get MRI of the feet to rule out Osteomyelitis Podiatry consult Anemia workup (1) Diabetic ulcer of right foot Diabetes mellitus type: other specified (including BRITT) Diabetic foot ulcer location: heel Non-pressure ulcer stage: unspecified non-pressure ulcer stage Qualified Code(s): E13.621 - Other specified diabetes mellitus with foot ulcer; L97.419 - Non-pressure chronic ulcer of right heel and midfoot with unspecified severity (5) Anemia Anemia type: unspecified type Qualified Code(s): D64.9 - Anemia, unspecified (6) Chronic kidney insufficiency Chronic kidney disease stage: unspecified stage Qualified Code(s): N18.9 - Chronic kidney disease, unspecified
[2023-05-19 17:33] LABS: Partial Thromboplastin Ratio 1.1; Prothrombin Time 11.3 Seconds (9.0-12.0)
[2023-05-19 17:50] LABS: HCO3 VBG 22 mmol/L; Oxygen Saturation VBG < 60.0 %; PCO2 VBG 45 mmHg (38-50); PO2 VBG 33 mmHg; pH VBG 7.29 (7.36-7.41)
[2023-05-19 18:10] LABS: Albumin Level 3.5 gm/dl (3.4-5.0); BUN Creatinine Ratio 19.9 (10-20); Bilirubin,Total 0.4 mg/dl (0.2-1.0); Calcium 8.9 mg/dl (8.6-10.3); Creatinine Clr Calc Pharmacy 32.8 ml/min; Est GFR (African American) 29.8 ml/min; Est GFR (Non-African American) 25.7 ml/min; Magnesium 1.8 mg/dl (1.7-2.4); Total Protein 7.3 gm/dl (6.0-8.3)
[2023-05-19 18:15] LABS: Troponin I High Sensitivity 3.3 pg/ml (0-20)
[2023-05-19] MEDS ORDERED: GLUCOSE 40% GEL 15 GM TUBE PO PRN (21:55)
[2023-05-19] MEDS ORDERED: ONDANSETRON INJ 2 MG/ML 2 ML VIAL IV PRN (21:55)
[2023-05-19] MEDS ORDERED: GLUCOSE 10 TAB/TUBE PO PRN (21:55)
[2023-05-19] MEDS ORDERED: GLUCAGON FOR INJ 1 MG VIAL SQ PRN (21:55)
[2023-05-19] MEDS ORDERED: ACETAMINOPHEN 325 MG TAB PO PRN (21:55)
[2023-05-19] MEDS ORDERED: DEXTROSE 50% 50 ML SYRINGE IV PRN (21:55)
[2023-05-19] MEDS: INSULIN ASPART PER UNIT CHARGE SC SCH (22:59)
[2023-05-19 23:18] LABS: Ferritin 505.5 ng/ml (8-388)
[2023-05-19 23:23] LABS: Folate (Folic Acid),Ser orPlas > 22.30 ng/ml (>5.38)
[2023-05-19] MEDS: HEPARIN SOD 5,000 UNIT/0.5 ML VIAL SQ SCH (23:23)
[2023-05-19 23:24] LABS: Vitamin B12 901 pg/ml (180-914)
[2023-05-19] MEDS: PANTOprazole 40 MG TAB PO SCH (23:24)
[2023-05-19] MEDS: SODIUM BICARBONATE 650 MG TAB PO SCH (23:24)
[2023-05-19] MEDS: hydrOXYzine HCl 25 MG TAB PO SCH (23:24)
[2023-05-19] MEDS: TAMSULOSIN HCL 0.4 MG CAP PO SCH (23:25)
[2023-05-19] MEDS: ATORVASTATIN 40 MG TAB PO SCH (23:26)
[2023-05-19] MEDS: PIPERACILLIN/TAZOBACTAM 4.5 GM in DEXTROSE 5% MINI-B 100 ML IV SCH (23:34)
--- NOTE | 2023-05-19 23:35 | Magnetic Resonance Report ---
Exam(s): MRI RIGHT ANKLE Without Contrast EXAM: MR Right Lower Extremity Without Intravenous Contrast, Ankle CLINICAL HISTORY: Reason for exam: R heel, eval for osteomyelitis. TECHNIQUE: Multiplanar magnetic resonance images of the right ankle without intravenous contrast. COMPARISON: No relevant prior studies available. FINDINGS: Fluid: There is ankle joint effusion. There is approximately 4 mm anterior subluxation of the talar dome in relation to the tibial plafond. Bones/joints: There is no bone marrow edema identified in the calcaneus. Evaluation of the midfoot is limited due to extensive artifacts. IMPRESSION: 1. No evidence of calcaneal osteomyelitis. 2. 4 mm anterior subluxation at the tibiotalar joint. Electronically signed by: Bryce Fink MD 05/19/23 23:33 PM
--- NOTE | 2023-05-19 23:46 | Magnetic Resonance Report ---
Exam(s): MRI LEFT ANKLE Without Contrast EXAM: MR Left Lower Extremity Without Intravenous Contrast, Ankle CLINICAL HISTORY: Reason for exam: Eval left ankle wound, eval for osteomyelitis. TECHNIQUE: Multiplanar magnetic resonance images of the left ankle without intravenous contrast. COMPARISON: 12/05/22 FINDINGS: Fluid: There is ankle joint effusion. Bones/joints: There is approximately 4 mm anterior subluxation at the tibiotalar joint. Degenerative arthritic changes seen at the ankle and talocalcaneal joints. There is improvement in the edema and lateral to the lateral malleolus seen on the prior study from 12/05/22. No bone marrow edema seen in the calcaneus. There is soft tissue edema seen in the dorsum of the foot. IMPRESSION: 1. No definite evidence of osteomyelitis 2. Improving soft tissue edema lateral to the lateral malleolus 3. 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 Electronically signed by: Bryce Fink MD 05/19/23 23:45 PM
[2023-05-20 01:55] LABS: Appearance Urine Clear (Clear); Bacteria Urine Automated Negative (Negative); Bilirubin Urine Negative (Negative); Blood Urine Negative (Negative); Color Urine Yellow; Epithelial Cell Urine Auto 0-5 /lpf (0-5); Glucose Urine UA Negative (Negative); Ketones Urine Negative (Negative); Leukocyte Esterase Urine Negative (Negative); Nitrite Urine Negative (Negative); Protein Urine 1+ (Negative); RBC Urine Automated 0-4 /hpf (0-4); Specific Gravity Urine 1.014 (1.000-1.030); Urobilinogen Urine Negative (Negative); WBC Urine Automated 0 /hpf (0-5); pH Urine 6.5 (4.5-7.5)
[2023-05-20] MEDS: INSULIN ASPART PER UNIT CHARGE SC SCH ×5 (02:04→21:16)
[2023-05-20] MEDS: VANCOMYCIN HCL 1,000 MG in SODIUM CHLORIDE 0.9% 250 ML IV SCH (05:27)
[2023-05-20] MEDS: LEVOTHYROXINE SODIUM 150 MCG TABLET PO SCH (06:23)
[2023-05-20] MEDS: PATIROMER CALCIUM SORBITEX 8.4 GM PACK PO SCH (06:24)
[2023-05-20 07:41] LABS: Hematocrit (blood only) 23.1 % (42.0-52.0); Hemoglobin 7.4 g/dl (14.0-18.0); Mean Corpuscular Hemoglobin 29.8 pg (25.0-34.0); Mean Corpuscular Volume 93.1 fL (80.0-100.0); Mean Platelet Volume 8.9 fL (9.4-12.4); Platelet Count 414 K/uL (130-400); RDW Coefficient of Variation 16.2 % (11.5-14.5); RDW Standard Deviation 54.7 fL (36.4-46.3); Red Blood Count 2.48 M/uL (4.70-6.10); White Blood Count 8.55 K/ul (4.8-10.8)
--- NOTE | 2023-05-20 07:44 | Electrocardiogram Report ---
Test Reason : Blood Pressure : / mmHG Vent. Rate : 072 BPM Atrial Rate : 072 BPM P-R Int : 110 ms QRS Dur : 092 ms QT Int : 416 ms P-R-T Axes : 061 020 051 degrees QTc Int : 455 ms Sinus rhythm Otherwise normal ECG When compared with ECG of 14-DEC-2022 19:31, Nonspecific T wave abnormality no longer evident in Lateral leads Confirmed by Omar Servin ([id number]) on 05/20/2023 7:44:28 AM Referred By: [facility] Confirmed By:Keny Servin
[2023-05-20 07:55] LABS: Estimated Average Glucose 151 mg/dl; Hemoglobin A1C 6.9 % (4.5-5.6)
[2023-05-20 08:07] LABS: BUN Creatinine Ratio 20.3 (10-20); Calcium 8.4 mg/dl (8.6-10.3); Chol HDL Ratio 2.9 (0-5); Creatinine Clr Calc Pharmacy 39.4 ml/min; Est GFR (African American) 37.3 ml/min; Est GFR (Non-African American) 32.1 ml/min; Magnesium 1.7 mg/dl (1.7-2.4); Phosphorus 3.8 mg/dl (2.5-4.9); Potassium 4.3 mmol/L (3.5-5.1)
[2023-05-20] MEDS: PIPERACILLIN/TAZOBACTAM 4.5 GM in DEXTROSE 5% MINI-B 100 ML IV SCH ×2 (08:30→16:15)
[2023-05-20] MEDS: ADVANCED PROBIOTIC 1250 MG CAPSULE PO SCH ×3 (08:37→16:14)
[2023-05-20] MEDS: FLUoxetine HCL 20 MG CAP PO SCH (08:37)
[2023-05-20] MEDS: ASPIRIN 81 MG ECTAB PO SCH (08:38)
[2023-05-20] MEDS: CYANOCOBALAMIN (B-12) 100 MCG TABLET PO SCH (08:39)
[2023-05-20] MEDS: FOLIC ACID 1 MG TAB PO SCH (08:39)
--- NOTE | 2023-05-20 08:39 | Orthopedic Consultation ---
Date of Consultation May 20, 2023 Assessment & Plan (1) Diabetic ulcer of right foot: Patient seen and examined at bedside in room 381-1. Patient resting comfortably with no immediate complaints. I examined the patient for an ulcer that has been resistant to healing. A thorough evaluation of the wound was done in detail. Manners in which pressure reduction could be achieved were investigated and initiated. Off-loading is a critical part of this patient's management. Off loading waffle boots ordered and applied to Patient. Patient will need bedside debridement of right heel wound due to significant nonviable wound bed. This was discussed and planed for next visit. Thank you for allowing me to participate in the Patient's care. History of Present Illness Attending Physician: Benji Fontana MD History of Present Illness Patient is 58 year [place] [employer] male inmate seen at [facility] this morning for worsening right foot heel ulcer. Patient has a past medical history significant for DM type 1, diabetic heel wound, diabetic neuropathy, HTN, dyslipidemia CKD III, chronic anemia, chronic hyponatremia, chronic hypokalemia, hypothyroidism, depression, chronic nausea vomiting, psoriasis who was brought to [facility] ED for worsening right foot ulcer. Patient is known to me for left septic ankle and osteomyelitis of fibula and tibia treated earlier this year. Allergies Allergy/AdvReac Type Severity Reaction Status Date / Time sodium chloride AdvReac Unknown CONTRAINDIC Verified 11/21/22 09:44 [From [place] Nasal] ATED. Home Medications Medication Instructions Recorded Confirmed Type Lactobacillus acidophilus 1 tab PO TIDM 03/05/22 05/19/23 History (Acidophilus chewable tablet) alendronate 70 mg tablet 70 mg PO WK 03/05/22 05/19/23 History aspirin 81 mg tablet,delayed 81 mg PO QAM 03/05/22 05/19/23 History release ergocalciferol (vitamin D2) 50 mcg 50 mcg PO WK 03/05/22 05/19/23 History (2,000 unit) capsule fluoxetine 20 mg capsule 40 mg PO QAM 03/05/22 05/19/23 History hydroxyzine pamoate 50 mg capsule 50 mg PO HS 03/05/22 05/19/23 History insulin regular human 100 unit/mL 2 unit subcut BID 03/05/22 05/19/23 History injection solution (Novolin R Regular U-100 Insulin) levothyroxine 150 mcg tablet 150 mcg PO DAILYBB 03/05/22 05/19/23 History metoclopramide HCl 10 mg tablet 10 mg PO ACHS 03/05/22 05/19/23 History ondansetron 8 mg disintegrating 8 mg PO TID 03/05/22 05/19/23 History tablet pantoprazole 40 mg tablet,delayed 40 mg PO BID 03/05/22 05/19/23 History release patiromer calcium sorbitex 25.2 25.2 g PO .DAILY @ 03:45 03/05/22 05/19/23 History gram oral powder packet (Veltassa) tamsulosin 0.4 mg capsule 0.4 mg PO HS 03/05/22 05/19/23 History vitamin B complex with C-folic 1 tab PO DAILY 03/05/22 05/19/23 History acid 0.8 mg-zinc citrate 50 mg tablet (Dialyvite 800 with Zinc 50) cyanocobalamin (vitamin B-12) 100 100 mcg PO QAM #30 tabs 03/06/22 05/19/23 Rx mcg tablet (Vitamin B-12) folic acid 1 mg tablet 1 mg PO QAM #30 tabs 03/06/22 05/19/23 Rx epoetin sanchez 10,000 unit/mL 10,000 unit subcut WK 11/21/22 05/19/23 History injection solution (Epogen) ascorbic acid (vitamin C) 500 mg 500 mg PO QAM 12/14/22 05/19/23 History tablet (Vitamin C) atorvastatin 40 mg tablet 40 mg PO HS 12/14/22 05/19/23 History insulin regular human 100 unit/mL 1 sliding scale dose subcut 12/14/22 05/19/23 History injection solution (Novolin R USEASDIRECTD PRN Hyperglycemia Regular U-100 Insulin) sodium bicarbonate 650 mg tablet 650 mg PO BID 12/14/22 05/19/23 History lactobacillus combo no.11 15 1 cap PO DAILY #30 caps 12/22/22 05/19/23 Rx billion cell sprinkle capsule (Probiotic) ibuprofen 600 mg tablet 600 mg PO TID PRN Pain 05/19/23 05/19/23 History insulin glargine 100 unit/mL 14 unit subcut DAILY 05/19/23 05/19/23 History subcutaneous solution Patient History Medical History Chronic anemia Chronic hyperkalemia Chronic hyponatremia Chronic nausea CKD (chronic kidney disease) Diabetes mellitus type 1 Hypothyroidism Non-STEMI (non-ST elevated myocardial infarction) NSTEMI (non-ST elevated myocardial infarction) Orthostatic hypotension on chronic fludrocortisone Proteinuria Psoriasis Surgical History Status post right foot surgery Family History Other Heart disease Social History Smoking Status: Former smoker Tobacco Type: Cigarettes Cigarettes Per Day: 1 ppd; Second Hand Exposure: No; Do You Dip or Chew Tobacco: No; Tobacco Cessation Education Requested by Patient: No Hx Alcohol Use: No Hx Substance Use: No Preferred Language: Bengali Communication Ability: Effective Visual Impairment: No Limitations Ingot Weigher Required: No Beliefs That Will Affect Care: None Current Living Situation: Other Current Living Situation Comment: [place] Other Information That Helps Us Care for You: No Feels Safe at Home: Yes Safety Concerns: Feels Safe At This Time Assistive Devices: None Review of Systems Review of Systems: All systems reviewed & are unremarkable except as noted in HPI & below Physical Exam Constitutional: cooperative and comfortable Eyes: normal visual case by confrontation Neck: normal visual inspection Respiratory: normal respiratory effort Cardiovascular: Vessels: posterior tibial pulses present and dorsalis pedis pulses present Skin: + ulcer (Right heel ulcer) and + wound (left lateral ankle 1 x 1 cm full thickness wound into subcutaneous tissue) Neurologic: moves all extremities (Absent epicritic sensation) Psychiatric: Orientation: alert and oriented x 3 Results & Data Vital Signs (Past 12 Hours) Vital Signs Temp Pulse Pulse Resp BP Pulse Ox Pulse Ox 05/20/23 07:30 36.9 C 79 18 156/83 H 100 05/20/23 00:00 99 05/20/23 01:11 113/67 05/19/23 23:06 145/87 H 05/19/23 21:58 36.6 C 76 16 157/92 H 99 O2 Del Method O2 Del Method 05/20/23 07:30 Room Air 05/20/23 00:00 Room Air 05/20/23 01:11 05/19/23 23:06 05/19/23 21:58 Room Air Diagnostic Findings [facility], [place] [phone] Magnetic Resonance Report Patient:MARIELA ROSE [id number] Admit Date:05/19/23 MR#:[id number] Address1:[facility] Acct ID:[id number] Address2:[facility] Date:1965 [facility] Zip:[place] [address] Age:58 Location:3N Sex:M Room/Bed:N381 Att Phy:Nichol Robles MD Diagnosis:R FOOT ULCER, DM I Lisa Phy:[facility] Service Date:05/19/23 Fam Phy: Interpreting Phy:Bryce Fnik MDAdmit Phy:Nichol Robles MD Ordering Phy:Elvira Corcoran PA-C cc: ~ Exam(s): MRI RIGHT ANKLE Without Contrast EXAM: MR Right Lower Extremity Without Intravenous Contrast, Ankle CLINICAL HISTORY: Reason for exam: R heel, eval for osteomyelitis. TECHNIQUE: Multiplanar magnetic resonance images of the right ankle without intravenous contrast. COMPARISON: No relevant prior studies available. FINDINGS: Fluid: There is ankle joint effusion. There is approximately 4 mm anterior subluxation of the talar dome in relation to the tibial plafond. Bones/joints: There is no bone marrow edema identified in the calcaneus. Evaluation of the midfoot is limited due to extensive artifacts. IMPRESSION: 1. No evidence of calcaneal osteomyelitis. 2. 4 mm anterior subluxation at the tibiotalar joint. Electronically signed by: Bryce Fink MD 05/19/23 23:33 PM Dictated:05/19/232332 Transcribed: 05/19/232332 (1) Diabetic ulcer of right foot Diabetes mellitus type: other specified (including BRITT) Diabetic foot ulcer location: heel Non-pressure ulcer stage: unspecified non-pressure ulcer stage Qualified Code(s): E13.621 - Other specified diabetes mellitus with foot ulcer; L97.419 - Non-pressure chronic ulcer of right heel and midfoot with unspecified severity
[2023-05-20] MEDS: SODIUM BICARBONATE 650 MG TAB PO SCH ×2 (08:43→21:21)
[2023-05-20] MEDS: PANTOprazole 40 MG TAB PO SCH ×2 (08:43→21:21)
[2023-05-20] MEDS: NEPHROCAPS PO SCH (08:44)
--- NOTE | 2023-05-20 09:31 | Pharmacy Report ---
Pharmacy PK ABX Note - Date of Service May 20, 2023 - Assessment and Plan Assessment * 58 year old M receiving Zosyn and vancomycin for treatment of DM foot ulcer, r/o osteomyelitis. * SCr trended down today, now at/near baseline Plan Vancomycin * Loading dose: 1500 mg IV x 1 * Maintenance dose: 1000 mg IV every 24 hours * Regimen is predicted to achieve target AUC/LINN of 400-600 mg/L.hr * Trough level ordered for: 05/22 @ 0530 Pharmacy will continue to follow and will adjust dose/frequency as necessary. Thank you. Pharmacy has transitioned to AUC monitoring for vancomycin. AUC/LINN is the preferred PK/PD target and is associated with decreased risk of nephrotoxicity compared to traditional trough targets.
[2023-05-20] MEDS: LANTUS PER UNIT CHARGE SQ SCH (10:28)
[2023-05-20] MEDS: HEPARIN SOD 5,000 UNIT/0.5 ML VIAL SQ SCH ×3 (10:46→22:58)
--- NOTE | 2023-05-20 12:48 | Hospitalist Progress Note ---
Date of Service May 20, 2023 Assessment & Plan (1) Diabetic ulcer of right foot: (2) Diabetic neuropathy: (3) Diabetes mellitus type 1: Plan: -Patient presented with bilateral foot infection. History of diabetic foot -XR of the foot negative for osteomyelitis, -MRI of both foot personally reviewed; no osteomyelitis. Soft tissue present Leukocytosis present on admission; improved CRP elevated to 3 As A1c of 6.9%'s Continue on IV antibiotic with Zosyn and vancomycin. Podiatry on board for possible debridement Continue wound care . (4) Acute hyperkalemia: Plan: -Potassium noted to be 5.5 on arrival, -Continue valtessa (5) Anemia: Plan: -Hemoglobin noted to be 7.7, previously has been this low in the past -Pt denies any known bleeding source - Suspect this is d/t anemia of chronic disease with kidney function (6) Chronic kidney insufficiency: Plan: -CKD stage III noted in hx, appears he may be stage IV. -Renally dose medications and avoid nephrotoxins DVT ppx: teds, scds, hold chemical prophylaxis in the setting of possible needs for surgical procedure Lines: 2 PIV FEN/GI: HH/DM type I diet, n.p.o. at midnight, if no surgery tomorrow then allow diet CODE: Full code Dispo: From [facility], admitted for need for IV antibiotic and surgical intervention for diabetic foot Time spent evaluating patient, direct bedside care, chart review, placing orders, interpretation of diagnostic studies, discussion with consultants, patient, and family members, as well as other required patient management activities is 60 minutes Please note the above document was generated using voice recognition software. It may contain grammatical, syntax or spelling errors. Any formal questions or concerns about the content, text or information contained within the body of this dictation should be directly addressed to the provider for clarification Admission and Anticipated Discharge Date Admission Date: May 19, 2023 Subjective Patient seen and examined at bedside. He is not in any distress. Denies pain in his foot. Review of Systems Review of Systems: All systems reviewed & are unremarkable except as noted in Subjective Physical Exam Physical Exam: General: awake, alert, no apparent distress, elderly white male Head: Normocephalic, atraumatic ENT: PERRL, EOMI, no pharyngeal exudate, mucous membranes moist Extremities: Right foot edematous, swelling in the ankle, heel ulceration with darkened eschar, surrounding erythema but is not spreading, covers the entirety of the heel, left lateral ankle with wound which is about 1 inch in diameter, minimal surrounding erythema. Otherwise normal inspection, no peripheral edema or erythema, calfs nontender to palpation Psych: Normal mood and affect Neuro: AAO x 3, strength intact bilaterally and rated 5/5, no motor deficits, speech is clear, + distal peripheral sensory deficits with numbness at the level of below the knee Please refer to complete physical exam by attending addendum Results & Data Results & Data Vital Signs (Past 12 Hours) Vital Signs Temp Pulse Resp BP Pulse Ox O2 Del Method 05/20/23 07:30 36.9 C 79 18 156/83 H 100 Room Air 05/20/23 01:11 113/67 Laboratory Results Laboratory Results WBC 8.55 K/ul (4.8-10.8) 05/20/23 07:06 RBC 2.48 M/uL (4.70-6.10) L 05/20/23 07:06 Hgb 7.4 g/dl (14.0-18.0) L 05/20/23 07:06 Hct 23.1 % (42.0-52.0) L 05/20/23 07:06 MCV 93.1 fL (80.0-100.0) 05/20/23 07:06 MCH 29.8 pg (25.0-34.0) 05/20/23 07:06 MCHC 32.0 g/dL (32.0-36.0) 05/20/23 07:06 RDW Std Deviation 54.7 fL (36.4-46.3) H 05/20/23 07:06 RDW Coeff of Minnie 16.2 % (11.5-14.5) H 05/20/23 07:06 Plt Count 414 K/uL (130-400) H 05/20/23 07:06 MPV 8.9 fL (9.4-12.4) L 05/20/23 07:06 Immature Gran % (Auto) 0.4 % 05/19/23 14:13 Neut % (Auto) 65.2 % 05/19/23 14:13 Lymph % (Auto) 21.3 % 05/19/23 14:13 [place] % (Auto) 8.5 % 05/19/23 14:13 Eos % (Auto) 3.3 % 05/19/23 14:13 Baso % (Auto) 1.3 % 05/19/23 14:13 Neut # (Auto) 8.16 K/uL (1.40-6.50) H 05/19/23 14:13 Lymph # (Auto) 2.66 K/uL (1.20-3.40) 05/19/23 14:13 [place] # (Auto) 1.06 K/uL (0.11-0.59) H 05/19/23 14:13 Eos # (Auto) 0.41 K/uL (0.00-0.50) 05/19/23 14:13 Baso # (Auto) 0.16 K/uL (0.00-0.20) 05/19/23 14:13 Immature Gran # (Auto) 0.05 K/uL (0.01-0.20) 05/19/23 14:13 Polychromasia 1+ 05/19/23 14:13 PT 11.3 Seconds (9.0-12.0) 05/19/23 14:14 INR 1.0 (0.9-1.1) 05/19/23 14:14 APTT 32.0 Seconds (21.0-31.0) H 05/19/23 14:14 PTT Ratio 1.1 05/19/23 14:14 VBG pH 7.29 (7.36-7.41) L 05/19/23 17:30 VBG pCO2 45 mmHg (38-50) 05/19/23 17:30 VBG pO2 33 mmHg 05/19/23 17:30 VBG HCO3 22 mmol/L 05/19/23 17:30 VBG O2 Saturation < 60.0 % 05/19/23 17:30 VBG Base Excess -5.0 mEq/L 05/19/23 17:30 Sodium 138 mmol/L (136-145) 05/20/23 07:06 Potassium 4.3 mmol/L (3.5-5.1) 05/20/23 07:06 Chloride 110 mmol/L (98-107) H 05/20/23 07:06 Carbon Dioxide 22 mmol/L (21-32) 05/20/23 07:06 Anion Gap 6 (3-11) 05/20/23 07:06 BUN 44 mg/dl (6-23) H 05/20/23 07:06 Creatinine 2.17 mg/dl (0.6-1.4) H D 05/20/23 07:06 Est Cr Clr Drug Dosing 39.4 ml/min 05/20/23 07:06 Est GFR ( Amer) 37.3 ml/min 05/20/23 07:06 Est GFR (Non-Af Amer) 32.1 ml/min 05/20/23 07:06 BUN/Creatinine Ratio 20.3 (10-20) H 05/20/23 07:06 Glucose 99 mg/dl (70-99(Fasting)) 05/20/23 07:06 POC Glucose 95 mg/dl (70-99) 05/20/23 11:28 Estimat Average Glucose 151 mg/dl 05/20/23 07:06 Hemoglobin A1c 6.9 % (4.5-5.6) H 05/20/23 07:06 Lactate 0.7 mmol/L (0.4-2.0) 05/19/23 17:30 Calcium 8.4 mg/dl (8.6-10.3) L 05/20/23 07:06 Phosphorus 3.8 mg/dl (2.5-4.9) 05/20/23 07:06 Magnesium 1.7 mg/dl (1.7-2.4) 05/20/23 07:06 Iron 13 mcg/dl (35-175) L 05/19/23 17:30 Unsaturated IBC 181 mcg/dl (155-355) 05/19/23 17:30 Ferritin 505.5 ng/ml (8-388) H 05/19/23 17:30 Total Bilirubin 0.4 mg/dl (0.2-1.0) 05/19/23 17:30 Direct Bilirubin 0.0 mg/dl (0-0.2) 05/19/23 17:30 AST 15 U/L (13-39) 05/19/23 17:30 ALT 23 U/L (7-52) 05/19/23 17:30 Alkaline Phosphatase 97 U/L (34-104) 05/19/23 17:30 Lactate Dehydrogenase 220 U/L (86-244) 05/19/23 17:30 Total Creatine Kinase 49 U/L (30-223) 05/20/23 07:06 Troponin I High Sens 3.3 pg/ml (0-20) 05/19/23 17:30 C-Reactive Protein 3.00 mg/dl (0-0.5) H 05/19/23 17:30 Total Protein 7.3 gm/dl (6.0-8.3) 05/19/23 17:30 Albumin 3.5 gm/dl (3.4-5.0) 05/19/23 17:30 Globulin 3.8 gm/dl (2.5-4.0) 05/19/23 14:13 Albumin/Globulin Ratio 0.9 (0.9-2) 05/19/23 14:13 Triglycerides 98 mg/dl (0-150) 05/20/23 07:06 Cholesterol 100 mg/dl (0-200) 05/20/23 07:06 LDL Cholesterol, Calc 45 mg/dl 05/20/23 07:06 VLDL Cholesterol, Calc 20 mg/dl (0-30) 05/20/23 07:06 HDL Cholesterol 35 mg/dl 05/20/23 07:06 Cholesterol/HDL Ratio 2.9 (0-5) 05/20/23 07:06 Vitamin B12 901 pg/ml (180-914) 05/19/23 17:30 Folate > 22.30 ng/ml (>5.38) 05/19/23 17:30 Folate Cancelled 05/19/23 17:30 Procalcitonin 0.23 ng/ml (0-0.5) 05/19/23 14:14 Urine Color Yellow 05/20/23 Unknown Urine Appearance Clear (Clear) 05/20/23 Unknown Urine pH 6.5 (4.5-7.5) 05/20/23 Unknown Ur Specific [place] 1.014 (1.000-1.030) 05/20/23 Unknown Urine Protein 1+ (Negative) H 05/20/23 Unknown Urine Glucose (UA) Negative (Negative) 05/20/23 Unknown Urine Ketones Negative (Negative) 05/20/23 Unknown Urine Blood Negative (Negative) 05/20/23 Unknown Urine Nitrite Negative (Negative) 05/20/23 Unknown Urine Bilirubin Negative (Negative) 05/20/23 Unknown Urine Urobilinogen Negative (Negative) 05/20/23 Unknown Ur Leukocyte Esterase Negative (Negative) 05/20/23 Unknown Urine WBC (Auto) 0 /hpf (0-5) 05/20/23 Unknown Urine RBC (Auto) 0-4 /hpf (0-4) 05/20/23 Unknown U Hyaline Cast (Auto) 1-5 /lpf (0-5) 05/20/23 Unknown U Epithel Cells (Auto) 0-5 /lpf (0-5) 05/20/23 Unknown Urine Bacteria (Auto) Negative (Negative) 05/20/23 Unknown Nasal Screen MRSA (PCR) Negative (Negative) 05/19/23 Unknown SARS-CoV-2, RNA, NAAT NEGATIVE (NEGATIVE) 05/20/23 Unknown Blood Type A Positive 05/19/23 17:30 Antibody Screen NEGATIVE 05/19/23 17:30 Impressions Calcaneus X-Ray 05/19/23 13:05 XR calcaneus RT min 2V CLINICAL HISTORY: R heel wound TECHNIQUE: 2 views of the right calcaneus were obtained. Comparison: None available at the time of this dictation. FINDINGS: No evidence of bony erosion is seen. The alignment is anatomic. The joint spaces are well preserved. Vascular calcification and soft tissue swelling are seen. IMPRESSION: No radiographic evidence of osteomyelitis. If clinical concern remains, MRI is a more sensitive modality. ACT 112: Negative or not required by law. Electronically signed by: Sb Becker M.D. 05/19/2023 1:58 PM Chest X-Ray 05/19/23 16:28 XR chest 1V portable HISTORY: 58 years-old Male Sepsis acute sepsis COMPARISON: 03/05/2002 TECHNIQUE: AP view of the chest FINDINGS: Cardiomediastinal and hilar silhouettes are within normal limits. No pneumothorax, pleural effusion, airspace consolidation or pulmonary edema. There is no ill-defined ovoid radiodensity projected over the right scapula, possibly external to the patient. Bones appear grossly intact. IMPRESSION: No acute process. ACT 112: Negative or not required by law. The above report was generated using voice recognition software. It may contain grammatical, syntax or spelling errors. Electronically signed by: Villa Leong M.D. 05/19/2023 5:08 PM Ankle MRI 05/19/23 18:01 Exam(s): MRI LEFT ANKLE Without Contrast EXAM: MR Left Lower Extremity Without Intravenous Contrast, Ankle CLINICAL HISTORY: Reason for exam: Eval left ankle wound, eval for osteomyelitis. TECHNIQUE: Multiplanar magnetic resonance images of the left ankle without intravenous contrast. COMPARISON: 12/05/22 FINDINGS: Fluid: There is ankle joint effusion. Bones/joints: There is approximately 4 mm anterior subluxation at the tibiotalar joint. Degenerative arthritic changes seen at the ankle and talocalcaneal joints. There is improvement in the edema and lateral to the lateral malleolus seen on the prior study from 12/05/22. No bone marrow edema seen in the calcaneus. There is soft tissue edema seen in the dorsum of the foot. IMPRESSION: 1. No definite evidence of osteomyelitis 2. Improving soft tissue edema lateral to the lateral malleolus 3. 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 Electronically signed by: Bryce Fink MD 05/19/23 23:45 PM (1) Diabetic ulcer of right foot Diabetes mellitus type: other specified (including BRITT) Diabetic foot ulcer location: heel Non-pressure ulcer stage: unspecified non-pressure ulcer stage Qualified Code(s): E13.621 - Other specified diabetes mellitus with foot ulcer; L97.419 - Non-pressure chronic ulcer of right heel and midfoot with unspecified severity (5) Anemia Anemia type: unspecified type Qualified Code(s): D64.9 - Anemia, unspecified (6) Chronic kidney insufficiency Chronic kidney disease stage: unspecified stage Qualified Code(s): N18.9 - Chronic kidney disease, unspecified
[2023-05-20] MEDS ORDERED: Nursing to Pharmacy Communication SCH (16:45)
[2023-05-20] MEDS: CARBOHYDRATES FOR HYPOGLYCEMIA PO PRN ×2 (17:07→17:25)
[2023-05-20] MEDS: ATORVASTATIN 40 MG TAB PO SCH (21:19)
[2023-05-20] MEDS: hydrOXYzine HCl 25 MG TAB PO SCH (21:20)
[2023-05-20] MEDS: TAMSULOSIN HCL 0.4 MG CAP PO SCH (21:20)
[2023-05-21] MEDS: PIPERACILLIN/TAZOBACTAM 4.5 GM in DEXTROSE 5% MINI-B 100 ML IV SCH ×4 (00:04→23:34)
[2023-05-21] MEDS: VANCOMYCIN HCL 1,000 MG in SODIUM CHLORIDE 0.9% 250 ML IV SCH (06:08)
[2023-05-21] MEDS: PATIROMER CALCIUM SORBITEX 8.4 GM PACK PO SCH (06:22)
[2023-05-21] MEDS: LEVOTHYROXINE SODIUM 150 MCG TABLET PO SCH (06:22)
[2023-05-21 09:11] LABS: Basophils # (auto) 0.15 K/uL (0.00-0.20); Basophils % (auto) 1.3 %; Eosinophils # (auto) 0.33 K/uL (0.00-0.50); Eosinophils % (auto) 2.8 %; Hematocrit (blood only) 25.1 % (42.0-52.0); Hemoglobin 8.3 g/dl (14.0-18.0); Immature Granulocytes # (auto) 0.05 K/uL (0.01-0.20); Immature Granulocytes % (auto) 0.4 %; Lymphocytes # (auto) 2.42 K/uL (1.20-3.40); Lymphocytes % (auto) 20.9 %; Mean Corpuscular Hemoglobin 30.1 pg (25.0-34.0); Mean Corpuscular Hgb Conc 33.1 g/dL (32.0-36.0); Mean Corpuscular Volume 90.9 fL (80.0-100.0); Mean Platelet Volume 8.9 fL (9.4-12.4); Monocytes # (auto) 0.96 K/uL (0.11-0.59); Monocytes % (auto) 8.3 %; Neutrophils # (auto) 7.67 K/uL (1.40-6.50); Neutrophils % (auto) 66.3 %; Platelet Count 452 K/uL (130-400); RDW Coefficient of Variation 16.3 % (11.5-14.5); RDW Standard Deviation 54.6 fL (36.4-46.3); Red Blood Count 2.76 M/uL (4.70-6.10); White Blood Count 11.58 K/ul (4.8-10.8)
[2023-05-21] MEDS: INSULIN ASPART PER UNIT CHARGE SC SCH ×2 (09:11→12:49)
[2023-05-21] MEDS: LANTUS PER UNIT CHARGE SQ SCH (09:11)
[2023-05-21] MEDS: ADVANCED PROBIOTIC 1250 MG CAPSULE PO SCH ×3 (09:15→16:23)
[2023-05-21 09:26] LABS: BUN Creatinine Ratio 17.2 (10-20); Calcium 8.9 mg/dl (8.6-10.3); Creatinine Clr Calc Pharmacy 38.7 ml/min; Est GFR (African American) 36.4 ml/min; Est GFR (Non-African American) 31.4 ml/min; Potassium 4.5 mmol/L (3.5-5.1)
[2023-05-21] MEDS: ASPIRIN 81 MG ECTAB PO SCH (09:26)
[2023-05-21] MEDS: CYANOCOBALAMIN (B-12) 100 MCG TABLET PO SCH (09:27)
[2023-05-21] MEDS: FLUoxetine HCL 20 MG CAP PO SCH (09:27)
[2023-05-21] MEDS: NEPHROCAPS PO SCH (09:29)
[2023-05-21] MEDS: FOLIC ACID 1 MG TAB PO SCH (09:29)
[2023-05-21] MEDS: PANTOprazole 40 MG TAB PO SCH ×2 (09:29→20:12)
[2023-05-21] MEDS: SODIUM BICARBONATE 650 MG TAB PO SCH ×2 (09:30→20:13)
[2023-05-21] MEDS: HEPARIN SOD 5,000 UNIT/0.5 ML VIAL SQ SCH ×2 (10:09→20:12)
--- NOTE | 2023-05-21 13:35 | Hospitalist Progress Note ---
Date of Service May 21, 2023 Assessment & Plan (1) Diabetic ulcer of right foot: (2) Diabetic neuropathy: (3) Diabetes mellitus type 1: Plan: -Patient presented with bilateral foot infection. History of diabetic foot -XR of the foot negative for osteomyelitis, -MRI of both foot personally reviewed; no osteomyelitis. Soft tissue present Leukocytosis present on admission; improved CRP elevated to 3 As A1c of 6.9%'s Continue on IV antibiotic with Zosyn and vancomycin. Podiatry on board for possible debridement. Awaiting timing. Continue wound care . (4) Acute hyperkalemia: Plan: -Potassium noted to be 5.5 on arrival, -Continue valtessa -Hyperkalemia improved (5) Anemia: Plan: -Hemoglobin noted to be 7.7, previously has been this low in the past -Pt denies any known bleeding source - Suspect this is d/t anemia of chronic disease with kidney function (6) Chronic kidney insufficiency: Plan: -CKD stage III noted in hx, appears he may be stage IV. -Renally dose medications and avoid nephrotoxins DVT ppx: Heparin Lines: 2 PIV FEN/GI: HH/DM type I diet, n.p.o. at midnight, if no surgery tomorrow then allow diet CODE: Full code Dispo: From [facility], admitted for need for IV antibiotic and surgical intervention for diabetic foot Please note the above document was generated using voice recognition software. It may contain grammatical, syntax or spelling errors. Any formal questions or concerns about the content, text or information contained within the body of this dictation should be directly addressed to the provider for clarification Admission and Anticipated Discharge Date Admission Date: May 19, 2023 Subjective Patient seen and examined at bedside. No overnight events. \ Review of Systems Review of Systems: All systems reviewed & are unremarkable except as noted in Subjective Physical Exam Physical Exam: General: awake, alert, no apparent distress, elderly white male Head: Normocephalic, atraumatic ENT: PERRL, EOMI, no pharyngeal exudate, mucous membranes moist Extremities: Right foot edematous, swelling in the ankle, heel ulceration with darkened eschar, surrounding erythema but is not spreading, covers the entirety of the heel, left lateral ankle with wound which is about 1 inch in diameter, minimal surrounding erythema. Otherwise normal inspection, no peripheral edema or erythema, calfs nontender to palpation Psych: Normal mood and affect Neuro: AAO x 3, strength intact bilaterally and rated 5/5, no motor deficits, speech is clear, + distal peripheral sensory deficits with numbness at the level of below the knee Results & Data Results & Data Vital Signs (Past 12 Hours) Vital Signs Temp Pulse Resp BP Pulse Ox O2 Del Method 05/21/23 07:22 36.7 C 81 16 157/89 H 97 Room Air Laboratory Results Laboratory Results WBC 11.58 K/ul (4.8-10.8) H 05/21/23 08:34 RBC 2.76 M/uL (4.70-6.10) L 05/21/23 08:34 Hgb 8.3 g/dl (14.0-18.0) L 05/21/23 08:34 Hct 25.1 % (42.0-52.0) L 05/21/23 08:34 MCV 90.9 fL (80.0-100.0) 05/21/23 08:34 MCH 30.1 pg (25.0-34.0) 05/21/23 08:34 MCHC 33.1 g/dL (32.0-36.0) 05/21/23 08:34 RDW Std Deviation 54.6 fL (36.4-46.3) H 05/21/23 08:34 RDW Coeff of Minnie 16.3 % (11.5-14.5) H 05/21/23 08:34 Plt Count 452 K/uL (130-400) H 05/21/23 08:34 MPV 8.9 fL (9.4-12.4) L 05/21/23 08:34 Immature Gran % (Auto) 0.4 % 05/21/23 08:34 Neut % (Auto) 66.3 % 05/21/23 08:34 Lymph % (Auto) 20.9 % 05/21/23 08:34 [place] % (Auto) 8.3 % 05/21/23 08:34 Eos % (Auto) 2.8 % 05/21/23 08:34 Baso % (Auto) 1.3 % 05/21/23 08:34 Neut # (Auto) 7.67 K/uL (1.40-6.50) H 05/21/23 08:34 Lymph # (Auto) 2.42 K/uL (1.20-3.40) 05/21/23 08:34 [place] # (Auto) 0.96 K/uL (0.11-0.59) H 05/21/23 08:34 Eos # (Auto) 0.33 K/uL (0.00-0.50) 05/21/23 08:34 Baso # (Auto) 0.15 K/uL (0.00-0.20) 05/21/23 08:34 Immature Gran # (Auto) 0.05 K/uL (0.01-0.20) 05/21/23 08:34 Polychromasia 1+ 05/19/23 14:13 PT 11.3 Seconds (9.0-12.0) 05/19/23 14:14 INR 1.0 (0.9-1.1) 05/19/23 14:14 APTT 32.0 Seconds (21.0-31.0) H 05/19/23 14:14 PTT Ratio 1.1 05/19/23 14:14 VBG pH 7.29 (7.36-7.41) L 05/19/23 17:30 VBG pCO2 45 mmHg (38-50) 05/19/23 17:30 VBG pO2 33 mmHg 05/19/23 17:30 VBG HCO3 22 mmol/L 05/19/23 17:30 VBG O2 Saturation < 60.0 % 05/19/23 17:30 VBG Base Excess -5.0 mEq/L 05/19/23 17:30 Sodium 138 mmol/L (136-145) 05/21/23 08:34 Potassium 4.5 mmol/L (3.5-5.1) 05/21/23 08:34 Chloride 108 mmol/L (98-107) H 05/21/23 08:34 Carbon Dioxide 22 mmol/L (21-32) 05/21/23 08:34 Anion Gap 8 (3-11) 05/21/23 08:34 BUN 38 mg/dl (6-23) H 05/21/23 08:34 Creatinine 2.21 mg/dl (0.6-1.4) H 05/21/23 08:34 Est Cr Clr Drug Dosing 38.7 ml/min 05/21/23 08:34 Est GFR ( Amer) 36.4 ml/min 05/21/23 08:34 Est GFR (Non-Af Amer) 31.4 ml/min 05/21/23 08:34 BUN/Creatinine Ratio 17.2 (10-20) 05/21/23 08:34 Glucose 95 mg/dl (70-99(Fasting)) 05/21/23 08:34 POC Glucose 102 mg/dl (70-99) H 05/21/23 11:23 Estimat Average Glucose 151 mg/dl 05/20/23 07:06 Hemoglobin A1c 6.9 % (4.5-5.6) H 05/20/23 07:06 Lactate 0.7 mmol/L (0.4-2.0) 05/19/23 17:30 Calcium 8.9 mg/dl (8.6-10.3) 05/21/23 08:34 Phosphorus 3.8 mg/dl (2.5-4.9) 05/20/23 07:06 Magnesium 1.7 mg/dl (1.7-2.4) 05/20/23 07:06 Iron 13 mcg/dl (35-175) L 05/19/23 17:30 Unsaturated IBC 181 mcg/dl (155-355) 05/19/23 17:30 Ferritin 505.5 ng/ml (8-388) H 05/19/23 17:30 Total Bilirubin 0.4 mg/dl (0.2-1.0) 05/19/23 17:30 Direct Bilirubin 0.0 mg/dl (0-0.2) 05/19/23 17:30 AST 15 U/L (13-39) 05/19/23 17:30 ALT 23 U/L (7-52) 05/19/23 17:30 Alkaline Phosphatase 97 U/L (34-104) 05/19/23 17:30 Lactate Dehydrogenase 220 U/L (86-244) 05/19/23 17:30 Total Creatine Kinase 49 U/L (30-223) 05/20/23 07:06 Troponin I High Sens 3.3 pg/ml (0-20) 05/19/23 17:30 C-Reactive Protein 3.00 mg/dl (0-0.5) H 05/19/23 17:30 Total Protein 7.3 gm/dl (6.0-8.3) 05/19/23 17:30 Albumin 3.5 gm/dl (3.4-5.0) 05/19/23 17:30 Globulin 3.8 gm/dl (2.5-4.0) 05/19/23 14:13 Albumin/Globulin Ratio 0.9 (0.9-2) 05/19/23 14:13 Triglycerides 98 mg/dl (0-150) 05/20/23 07:06 Cholesterol 100 mg/dl (0-200) 05/20/23 07:06 LDL Cholesterol, Calc 45 mg/dl 05/20/23 07:06 VLDL Cholesterol, Calc 20 mg/dl (0-30) 05/20/23 07:06 HDL Cholesterol 35 mg/dl 05/20/23 07:06 Cholesterol/HDL Ratio 2.9 (0-5) 05/20/23 07:06 Vitamin B12 901 pg/ml (180-914) 05/19/23 17:30 Folate > 22.30 ng/ml (>5.38) 05/19/23 17:30 Folate Cancelled 05/19/23 17:30 Procalcitonin 0.23 ng/ml (0-0.5) 05/19/23 14:14 Urine Color Yellow 05/20/23 Unknown Urine Appearance Clear (Clear) 05/20/23 Unknown Urine pH 6.5 (4.5-7.5) 05/20/23 Unknown Ur Specific [place] 1.014 (1.000-1.030) 05/20/23 Unknown Urine Protein 1+ (Negative) H 05/20/23 Unknown Urine Glucose (UA) Negative (Negative) 05/20/23 Unknown Urine Ketones Negative (Negative) 05/20/23 Unknown Urine Blood Negative (Negative) 05/20/23 Unknown Urine Nitrite Negative (Negative) 05/20/23 Unknown Urine Bilirubin Negative (Negative) 05/20/23 Unknown Urine Urobilinogen Negative (Negative) 05/20/23 Unknown Ur Leukocyte Esterase Negative (Negative) 05/20/23 Unknown Urine WBC (Auto) 0 /hpf (0-5) 05/20/23 Unknown Urine RBC (Auto) 0-4 /hpf (0-4) 05/20/23 Unknown U Hyaline Cast (Auto) 1-5 /lpf (0-5) 05/20/23 Unknown U Epithel Cells (Auto) 0-5 /lpf (0-5) 05/20/23 Unknown Urine Bacteria (Auto) Negative (Negative) 05/20/23 Unknown Nasal Screen MRSA (PCR) Negative (Negative) 05/19/23 Unknown SARS-CoV-2, RNA, NAAT NEGATIVE (NEGATIVE) 05/20/23 Unknown Blood Type A Positive 05/19/23 17:30 Antibody Screen NEGATIVE 05/19/23 17:30 Impressions Calcaneus X-Ray 05/19/23 13:05 XR calcaneus RT min 2V CLINICAL HISTORY: R heel wound TECHNIQUE: 2 views of the right calcaneus were obtained. Comparison: None available at the time of this dictation. FINDINGS: No evidence of bony erosion is seen. The alignment is anatomic. The joint spaces are well preserved. Vascular calcification and soft tissue swelling are seen. IMPRESSION: No radiographic evidence of osteomyelitis. If clinical concern remains, MRI is a more sensitive modality. ACT 112: Negative or not required by law. Electronically signed by: Sb Becker M.D. 05/19/2023 1:58 PM Chest X-Ray 05/19/23 16:28 XR chest 1V portable HISTORY: 58 years-old Male Sepsis acute sepsis COMPARISON: 03/05/2002 TECHNIQUE: AP view of the chest FINDINGS: Cardiomediastinal and hilar silhouettes are within normal limits. No pneumothorax, pleural effusion, airspace consolidation or pulmonary edema. There is no ill-defined ovoid radiodensity projected over the right scapula, possibly external to the patient. Bones appear grossly intact. IMPRESSION: No acute process. ACT 112: Negative or not required by law. The above report was generated using voice recognition software. It may contain grammatical, syntax or spelling errors. Electronically signed by: Villa Leong M.D. 05/19/2023 5:08 PM Ankle MRI 05/19/23 18:01 Exam(s): MRI LEFT ANKLE Without Contrast EXAM: MR Left Lower Extremity Without Intravenous Contrast, Ankle CLINICAL HISTORY: Reason for exam: Eval left ankle wound, eval for osteomyelitis. TECHNIQUE: Multiplanar magnetic resonance images of the left ankle without intravenous contrast. COMPARISON: 12/05/22 FINDINGS: Fluid: There is ankle joint effusion. Bones/joints: There is approximately 4 mm anterior subluxation at the tibiotalar joint. Degenerative arthritic changes seen at the ankle and talocalcaneal joints. There is improvement in the edema and lateral to the lateral malleolus seen on the prior study from 12/05/22. No bone marrow edema seen in the calcaneus. There is soft tissue edema seen in the dorsum of the foot. IMPRESSION: 1. No definite evidence of osteomyelitis 2. Improving soft tissue edema lateral to the lateral malleolus 3. 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 Electronically signed by: Bryce Fink MD 05/19/23 23:45 PM (1) Diabetic ulcer of right foot Diabetes mellitus type: other specified (including BRITT) Diabetic foot ulcer location: heel Non-pressure ulcer stage: unspecified non-pressure ulcer stage Qualified Code(s): E13.621 - Other specified diabetes mellitus with foot ulcer; L97.419 - Non-pressure chronic ulcer of right heel and midfoot with unspecified severity (5) Anemia Anemia type: unspecified type Qualified Code(s): D64.9 - Anemia, unspecified (6) Chronic kidney insufficiency Chronic kidney disease stage: unspecified stage Qualified Code(s): N18.9 - Chronic kidney disease, unspecified
--- NOTE | 2023-05-21 19:54 | Orthopedic Progress Note ---
Date of Service May 21, 2023 Assessment & Plan (1) Diabetic ulcer of right foot: Plan: Patient seen and examined at bedside in room 381-1. Patient resting comfortably with no immediate complaints. I examined the patient for an ulcer that has been resistant to healing. It was determined wound would be sharply debrided. See procedure noted below. Dry sterile dressing applied. Off loading waffle boots applied to Patient. Will continue to follow while in house. Thank you for allowing me to participate in the Patient's care. Today's procedure is an excisional debridement of deep tissue. There is a minimal serosanguineous exudate draining from the right heel ulcer. The ulcer base is described as containing necrotic wet gangrenous tissue. Necrotic or devitalized tissue is estimated to be present in approximately 90% of the pressure ulcer bed. The ulcer has been exposed full-thickness tissue. I have informed the patient of the risks and benefit of this procedure and they have had the opportunity to ask questions. Appropriate consent has been obtained. The patient refused site marking. The area was prepped and draped in usual aseptic manner. The procedure was performed and a clean field. I debrided the wound sharply with a sterile #15 blade and necrotic tissue was excised down to and including muscle. Bleeding was minimal and hemostasis was achieved using pressure. The patient tolerated procedure and well. Postprocedure no increased pain. Admission and Anticipated Discharge Date Admission Date: May 19, 2023 Subjective Patient seen, evaluated, and treated at bedside in room 381-1. Patient is resting comfortably with no complaints. He is utilizing offloading waffle boots as rx'd. Review of Systems Review of Systems: All systems reviewed & are unremarkable except as noted in Subjective Physical Exam Constitutional: cooperative and comfortable Eyes: normal visual case by confrontation Neck: normal visual inspection Respiratory: normal respiratory effort Cardiovascular: Vessels: posterior tibial pulses present and dorsalis pedis pulses present Skin: + ulcer (Right heel ulcer) and + wound (left lateral ankle 1 x 1 cm full thickness wound into subcutaneous tissue) Neurologic: moves all extremities (Absent epicritic sensation) Psychiatric: Orientation: alert and oriented x 3 Results & Data Vital Signs (Past 12 Hours) Vital Signs Temp Pulse Resp BP Pulse Ox O2 Del Method 05/21/23 15:28 37.2 C 68 16 137/79 98 Room Air (1) Diabetic ulcer of right foot Diabetes mellitus type: other specified (including BRITT) Diabetic foot ulcer location: heel Non-pressure ulcer stage: unspecified non-pressure ulcer stage Qualified Code(s): E13.621 - Other specified diabetes mellitus with foot ulcer; L97.419 - Non-pressure chronic ulcer of right heel and midfoot with unspecified severity
[2023-05-21] MEDS: hydrOXYzine HCl 25 MG TAB PO SCH (20:13)
[2023-05-21] MEDS: ATORVASTATIN 40 MG TAB PO SCH (20:13)
[2023-05-21] MEDS: TAMSULOSIN HCL 0.4 MG CAP PO SCH (20:13)
[2023-05-22] MEDS ORDERED: VANCOMYCIN LEVEL ONE (05:30)
[2023-05-22] MEDS: VANCOMYCIN HCL 1,000 MG in SODIUM CHLORIDE 0.9% 250 ML IV SCH (06:11)
[2023-05-22] MEDS: PATIROMER CALCIUM SORBITEX 8.4 GM PACK PO SCH (06:12)
[2023-05-22] MEDS: LEVOTHYROXINE SODIUM 150 MCG TABLET PO SCH (06:15)
[2023-05-22 06:19] LABS: Basophils # (auto) 0.16 K/uL (0.00-0.20); Basophils % (auto) 1.6 %; Eosinophils # (auto) 0.35 K/uL (0.00-0.50); Eosinophils % (auto) 3.4 %; Hematocrit (blood only) 23.3 % (42.0-52.0); Hemoglobin 7.4 g/dl (14.0-18.0); Immature Granulocytes # (auto) 0.04 K/uL (0.01-0.20); Immature Granulocytes % (auto) 0.4 %; Lymphocytes # (auto) 2.64 K/uL (1.20-3.40); Mean Corpuscular Hemoglobin 29.5 pg (25.0-34.0); Mean Corpuscular Hgb Conc 31.8 g/dL (32.0-36.0); Mean Corpuscular Volume 92.8 fL (80.0-100.0); Mean Platelet Volume 9.1 fL (9.4-12.4); Monocytes # (auto) 1.01 K/uL (0.11-0.59); Monocytes % (auto) 9.9 %; Neutrophils # (auto) 5.97 K/uL (1.40-6.50); Neutrophils % (auto) 58.7 %; Platelet Count 448 K/uL (130-400); RDW Coefficient of Variation 16.2 % (11.5-14.5); RDW Standard Deviation 54.4 fL (36.4-46.3); Red Blood Count 2.51 M/uL (4.70-6.10); White Blood Count 10.17 K/ul (4.8-10.8)
[2023-05-22 06:35] LABS: BUN Creatinine Ratio 14.9 (10-20); Calcium 8.4 mg/dl (8.6-10.3); Creatinine Clr Calc Pharmacy 29.6 ml/min; Est GFR (African American) 26.3 ml/min; Est GFR (Non-African American) 22.7 ml/min; Potassium 4.6 mmol/L (3.5-5.1)
[2023-05-22 06:43] LABS: Anisocytosis Present; Polychromasia 1+
[2023-05-22] MEDS ORDERED: GLUCAGON FOR INJ 1 MG VIAL SQ PRN (06:43)
[2023-05-22] MEDS ORDERED: CARBOHYDRATES FOR HYPOGLYCEMIA PO PRN (06:43)
[2023-05-22] MEDS ORDERED: DEXTROSE 50% 50 ML SYRINGE IV PRN (06:43)
[2023-05-22] MEDS ORDERED: GLUCOSE 40% GEL 15 GM TUBE PO PRN (06:43)
[2023-05-22] MEDS ORDERED: GLUCOSE 10 TAB/TUBE PO PRN (06:43)
--- NOTE | 2023-05-22 07:23 | Pharmacy Report ---
Pharmacy PK ABX Note - Date of Service May 22, 2023 - Assessment and Plan Assessment 05/22: * Reviewed vancomycin level, with slight increase in serum creatinine level predicted to be slightly supratherapeutic. Will decrease dose for now and monitor serum creatinine trends. * Right foot culture growing gram negative rods x2, and probabable enterococus, await further identification and sensitivities 05/20: * 58 year old M receiving Zosyn and vancomycin for treatment of DM foot ulcer, r/o osteomyelitis. * SCr trended down today, now at/near baseline Plan Vancomycin * Maintenance dose: decrease to vancomycin 750 mg IV every 24 hours * Regimen is predicted to achieve target AUC/LINN of 400-600 mg/L.hr * Trough to be ordered once vancomycin reaches steady state Pharmacy will continue to follow and will adjust dose/frequency as necessary. Thank you. Pharmacy has transitioned to AUC monitoring for vancomycin. AUC/LINN is the preferred PK/PD target and is associated with decreased risk of nephrotoxicity compared to traditional trough targets.
[2023-05-22] MEDS: PIPERACILLIN/TAZOBACTAM 4.5 GM in DEXTROSE 5% MINI-B 100 ML IV SCH (07:48)
[2023-05-22] MEDS ORDERED: SODIUM CHLORIDE 0.9% 1,000 ML IV SCH (08:00)
[2023-05-22] MEDS: LANTUS PER UNIT CHARGE SQ SCH (08:27)
[2023-05-22] MEDS: ERTAPENEM SODIUM 1,000 MG in SYRINGE 0 ML IV SCH (08:27)
[2023-05-22] MEDS: HEPARIN SOD 5,000 UNIT/0.5 ML VIAL SQ SCH ×2 (08:28→22:11)
[2023-05-22] MEDS: NEPHROCAPS PO SCH (08:28)
[2023-05-22] MEDS: PANTOprazole 40 MG TAB PO SCH ×2 (08:28→22:13)
[2023-05-22] MEDS: CYANOCOBALAMIN (B-12) 100 MCG TABLET PO SCH (08:28)
[2023-05-22] MEDS: ASPIRIN 81 MG ECTAB PO SCH (08:28)
[2023-05-22] MEDS: FLUoxetine HCL 20 MG CAP PO SCH (08:28)
[2023-05-22] MEDS: SODIUM BICARBONATE 650 MG TAB PO SCH ×2 (08:28→22:14)
[2023-05-22] MEDS: ADVANCED PROBIOTIC 1250 MG CAPSULE PO SCH ×3 (08:28→17:41)
[2023-05-22] MEDS: FOLIC ACID 1 MG TAB PO SCH (08:28)
[2023-05-22] MEDS: INSULIN ASPART PER UNIT CHARGE SC SCH ×4 (08:31→21:48)
--- NOTE | 2023-05-22 15:57 | Hospitalist Progress Note ---
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 Right heel x-ray and right ankle MRI negative for osteomyelitis Podiatry consulted, input appreciated. S/p bedside debridement on 05/21. On Vanco and Zosyn (day 4) Wound culture -Citrobacter freundii, ESBL E. coli, Enterococcus Continue Vanco and Zosyn based upon sensitivities ID consult (3) Diabetes mellitus type 1: Plan: Hgb A1c 6.9 Lantus and NovoLog (4) Acute hyperkalemia: Plan: Potassium noted to be 5.5 on presentation K+ 4.6 today Continue valtessa Monitor BMP (5) Anemia: Plan: History of chronic anemia with Hgb varying between ~ 7.0-11.0 Hgb 7.7 on presentation Hgb 7.4 today No signs of active bleeding Likely chronic anemia in the setting of CKD Monitor CBC (6) Chronic kidney insufficiency: Plan: CKD stage III noted in hx, appears he may be stage IV Baseline creatinine ~ mid 2s Creatinine 2.8 today (up from 2.2 yesterday) Will give gentle 1 L IVF, follow-up BMP in a.m. DVT PROPHYLAXIS SQ heparin Dispo -pending, awaiting ID recommendations regarding antibiotics Patient seen in collaboration with Dr. Fontana. Admission and Anticipated Discharge Date Admission Date: May 19, 2023 Supervising Physician Co-Signing Physician Notes Patient seen and examined independently. Discussed with above provider. Antibiotics changed to ertapenem as per sensitivity results. Infectious disease consultation pending Continue wound care Subjective Follow-up for diabetic foot ulcer. Patient seen and examined. Offers no complaints. Reports chronic neuropathy up to the bilateral knees. Remains afebrile. No chest pain or shortness of breath. Denies abdominal pain and nausea. Physical Exam Constitutional: WD/WN, vitals as above no acute distress Respiratory: normal respiratory effort, lungs clear to auscultation Cardiovascular: Rate/Rhythm: regular rate and regular rhythm Vessels: normal peripheral pulses Gastrointestinal (Abdomen): Percussion/Palpation: abdomen soft; abdomen nontender Skin: no rashes, warm and dry Dressing CDI right foot Neurologic: no focal motor deficits Psychiatric: A+Ox3, euthymic affect Results & Data Results & Data Vital Signs (Past 12 Hours) Vital Signs Temp Pulse Resp BP Pulse Ox O2 Del Method 05/22/23 06:51 36.9 C 83 18 168/91 H 97 Room Air Laboratory Results Short CBC 05/22/23 Range/Units 05:20 WBC 10.17 (4.8-10.8) K/ul Hgb 7.4 L (14.0-18.0) g/dl Hct 23.3 L (42.0-52.0) % Plt Count 448 H (130-400) K/uL BMP 05/22/23 05:20 Sodium 138 Potassium 4.6 Chloride 109 H Carbon Dioxide 22 BUN 43 H Creatinine 2.89 H D Glucose 304 H* Calcium 8.4 L (1) Diabetic ulcer of right foot Diabetes mellitus type: other specified (including BRITT) Diabetic foot ulcer location: heel Non-pressure ulcer stage: unspecified non-pressure ulcer stage Qualified Code(s): E13.621 - Other specified diabetes mellitus with foot ulcer; L97.419 - Non-pressure chronic ulcer of right heel and midfoot with unspecified severity (5) Anemia Anemia type: unspecified type Qualified Code(s): D64.9 - Anemia, unspecified (6) Chronic kidney insufficiency Chronic kidney disease stage: unspecified stage Qualified Code(s): N18.9 - Chronic kidney disease, unspecified
[2023-05-22] MEDS: hydrOXYzine HCl 25 MG TAB PO SCH (22:13)
[2023-05-22] MEDS: TAMSULOSIN HCL 0.4 MG CAP PO SCH (22:13)
[2023-05-22] MEDS: ATORVASTATIN 40 MG TAB PO SCH (22:14)
[2023-05-23] MEDS: LEVOTHYROXINE SODIUM 150 MCG TABLET PO SCH (06:01)
[2023-05-23] MEDS: PATIROMER CALCIUM SORBITEX 8.4 GM PACK PO SCH (06:06)
[2023-05-23 08:16] LABS: Basophils # (auto) 0.11 K/uL (0.00-0.20); Basophils % (auto) 0.9 %; Eosinophils % (auto) 2.6 %; Hematocrit (blood only) 24.1 % (42.0-52.0); Hemoglobin 7.7 g/dl (14.0-18.0); Immature Granulocytes # (auto) 0.04 K/uL (0.01-0.20); Immature Granulocytes % (auto) 0.3 %; Lymphocytes # (auto) 1.62 K/uL (1.20-3.40); Lymphocytes % (auto) 13.8 %; Mean Corpuscular Hemoglobin 30.3 pg (25.0-34.0); Mean Corpuscular Volume 94.9 fL (80.0-100.0); Mean Platelet Volume 8.9 fL (9.4-12.4); Monocytes # (auto) 1.12 K/uL (0.11-0.59); Monocytes % (auto) 9.6 %; Neutrophils # (auto) 8.51 K/uL (1.40-6.50); Neutrophils % (auto) 72.8 %; Platelet Count 459 K/uL (130-400); RDW Coefficient of Variation 16.5 % (11.5-14.5); RDW Standard Deviation 56.8 fL (36.4-46.3); Red Blood Count 2.54 M/uL (4.70-6.10)
[2023-05-23] MEDS: VANCOMYCIN HCL 750 MG in SODIUM CHLORIDE 0.9% 250 ML IV SCH (08:17)
[2023-05-23] MEDS: ERTAPENEM SODIUM 1,000 MG in SYRINGE 0 ML IV SCH (08:18)
[2023-05-23] MEDS: ADVANCED PROBIOTIC 1250 MG CAPSULE PO SCH ×3 (08:23→17:44)
[2023-05-23] MEDS: HEPARIN SOD 5,000 UNIT/0.5 ML VIAL SQ SCH ×2 (08:23→22:09)
[2023-05-23] MEDS: NEPHROCAPS PO SCH (08:23)
[2023-05-23] MEDS: CYANOCOBALAMIN (B-12) 100 MCG TABLET PO SCH (08:23)
[2023-05-23] MEDS: SODIUM BICARBONATE 650 MG TAB PO SCH ×2 (08:23→22:08)
[2023-05-23] MEDS: FLUoxetine HCL 20 MG CAP PO SCH (08:23)
[2023-05-23] MEDS: FOLIC ACID 1 MG TAB PO SCH (08:23)
[2023-05-23] MEDS: LANTUS PER UNIT CHARGE SQ SCH (08:23)
[2023-05-23] MEDS: PANTOprazole 40 MG TAB PO SCH ×2 (08:23→22:09)
[2023-05-23] MEDS: ASPIRIN 81 MG ECTAB PO SCH (08:23)
[2023-05-23] MEDS: INSULIN ASPART PER UNIT CHARGE SC SCH ×4 (08:30→22:09)
[2023-05-23 08:38] LABS: BUN Creatinine Ratio 16.7 (10-20); Calcium 8.8 mg/dl (8.6-10.3); Creatinine Clr Calc Pharmacy 38.5 ml/min; Est GFR (African American) 36.2 ml/min; Est GFR (Non-African American) 31.3 ml/min
[2023-05-23 08:48] LABS: Polychromasia 1+
[2023-05-23] MEDS: BUTT PASTE (ZINC OXIDE 16%) 171 APPLN/57 GM JAR EXT SCH ×2 (09:43→22:09)
[2023-05-23] MEDS ORDERED: LOPERAMIDE HCL 2 MG CAP PO PRN (10:44)
--- NOTE | 2023-05-23 17:08 | Hospitalist Progress Note ---
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 Right heel x-ray and right ankle MRI negative for osteomyelitis Podiatry consulted, input appreciated. S/p bedside debridement on 05/21. Initially placed on Vanco and Zosyn -received for 4 days Wound culture -Citrobacter freundii, ESBL E. coli, Enterococcus Zosyn changed to ertapenem on 05/22 based on sensitivity report. Continue Vanco (day 5) ID consult (3) Diabetes mellitus type 1: Plan: Hgb A1c 6.9 Lantus and NovoLog (4) Acute hyperkalemia: Plan: Potassium noted to be 5.5 on presentation K+ 4.6 today Continue valtessa Monitor BMP (5) Anemia: Plan: History of chronic anemia with Hgb varying between ~ 7.0-11.0 Hgb 7.7 on presentation Hgb 7.7 today No signs of active bleeding Likely chronic anemia in the setting of CKD Monitor CBC (6) Chronic kidney insufficiency: Plan: CKD stage III noted in hx, appears he may be stage IV Baseline creatinine ~ mid 2s Creatinine 2.8 on 05/22 (up from 2.2 the previous day). Received 1 L IVF, creatinine improved to 2.2 today Continue to monitor renal functions DVT PROPHYLAXIS SQ heparin Dispo -pending, awaiting ID recommendations regarding antibiotics Patient seen in collaboration with Dr. Fontana. Admission and Anticipated Discharge Date Admission Date: May 19, 2023 Subjective Follow-up for diabetic foot ulcer. Patient seen and examined. Reporting multiple episodes of diarrhea. C. difficile testing negative. Denies abdominal pain, nausea, vomiting. Remains afebrile. No chest pain or shortness of breath. Physical Exam Constitutional: WD/WN, vitals as above Respiratory: normal respiratory effort, lungs clear to auscultation Cardiovascular: Rate/Rhythm: regular rate and regular rhythm Vessels: normal peripheral pulses Extremities: no edema Gastrointestinal (Abdomen): Percussion/Palpation: abdomen soft; abdomen nontender Skin: dressing CDI right foot Neurologic: no focal motor deficits Psychiatric: A+Ox3, euthymic affect Results & Data Results & Data Vital Signs (Past 12 Hours) Vital Signs Temp Pulse Resp BP Pulse Ox O2 Del Method 05/23/23 15:45 36.8 C 82 14 148/73 H 100 Room Air 05/23/23 08:32 36.8 C 83 16 159/86 H 99 Room Air Laboratory Results Short CBC 05/23/23 Range/Units 07:19 WBC 11.70 H (4.8-10.8) K/ul Hgb 7.7 L (14.0-18.0) g/dl Hct 24.1 L (42.0-52.0) % Plt Count 459 H (130-400) K/uL BMP 05/23/23 07:19 Sodium 141 Potassium 4.0 Chloride 112 H Carbon Dioxide 21 BUN 37 H Creatinine 2.22 H D Glucose 143 H Calcium 8.8 (1) Diabetic ulcer of right foot Diabetes mellitus type: other specified (including BRITT) Diabetic foot ulcer location: heel Non-pressure ulcer stage: unspecified non-pressure ulcer stage Qualified Code(s): E13.621 - Other specified diabetes mellitus with foot ulcer; L97.419 - Non-pressure chronic ulcer of right heel and midfoot with unspecified severity (5) Anemia Anemia type: unspecified type Qualified Code(s): D64.9 - Anemia, unspecified (6) Chronic kidney insufficiency Chronic kidney disease stage: unspecified stage Qualified Code(s): N18.9 - Chronic kidney disease, unspecified
[2023-05-23] MEDS: hydrOXYzine HCl 25 MG TAB PO SCH (22:08)
[2023-05-23] MEDS: TAMSULOSIN HCL 0.4 MG CAP PO SCH (22:09)
[2023-05-23] MEDS: ATORVASTATIN 40 MG TAB PO SCH (22:09)
[2023-05-24] MEDS: LEVOTHYROXINE SODIUM 150 MCG TABLET PO SCH (05:59)
[2023-05-24] MEDS: PATIROMER CALCIUM SORBITEX 8.4 GM PACK PO SCH (06:11)
[2023-05-24 08:05] LABS: Hematocrit (blood only) 23.1 % (42.0-52.0); Hemoglobin 7.3 g/dl (14.0-18.0); Mean Corpuscular Hemoglobin 29.8 pg (25.0-34.0); Mean Corpuscular Hgb Conc 31.6 g/dL (32.0-36.0); Mean Corpuscular Volume 94.3 fL (80.0-100.0); Mean Platelet Volume 8.9 fL (9.4-12.4); Platelet Count 442 K/uL (130-400); RDW Coefficient of Variation 16.8 % (11.5-14.5); RDW Standard Deviation 57.1 fL (36.4-46.3); Red Blood Count 2.45 M/uL (4.70-6.10); White Blood Count 12.28 K/ul (4.8-10.8)
[2023-05-24 08:28] LABS: BUN Creatinine Ratio 18.1 (10-20); Calcium 8.5 mg/dl (8.6-10.3); Creatinine Clr Calc Pharmacy 35.9 ml/min; Est GFR (African American) 33.3 ml/min; Est GFR (Non-African American) 28.7 ml/min; Potassium 4.2 mmol/L (3.5-5.1)
[2023-05-24] MEDS: INSULIN ASPART PER UNIT CHARGE SC SCH ×4 (09:12→21:32)
[2023-05-24] MEDS: LANTUS PER UNIT CHARGE SQ SCH (09:12)
[2023-05-24] MEDS: ERTAPENEM SODIUM 1,000 MG in SYRINGE 0 ML IV SCH (09:13)
[2023-05-24] MEDS: VANCOMYCIN HCL 750 MG in SODIUM CHLORIDE 0.9% 250 ML IV SCH (09:19)
[2023-05-24] MEDS: ADVANCED PROBIOTIC 1250 MG CAPSULE PO SCH ×3 (09:23→18:11)
[2023-05-24] MEDS: ASPIRIN 81 MG ECTAB PO SCH (09:24)
[2023-05-24] MEDS: CYANOCOBALAMIN (B-12) 100 MCG TABLET PO SCH (09:24)
[2023-05-24] MEDS: FLUoxetine HCL 20 MG CAP PO SCH (09:25)
[2023-05-24] MEDS: FOLIC ACID 1 MG TAB PO SCH (09:26)
[2023-05-24] MEDS: HEPARIN SOD 5,000 UNIT/0.5 ML VIAL SQ SCH ×2 (09:26→21:38)
[2023-05-24] MEDS: NEPHROCAPS PO SCH (09:27)
[2023-05-24] MEDS: SODIUM BICARBONATE 650 MG TAB PO SCH ×2 (09:28→21:36)
[2023-05-24] MEDS: PANTOprazole 40 MG TAB PO SCH ×2 (09:28→21:35)
[2023-05-24] MEDS: BUTT PASTE (ZINC OXIDE 16%) 171 APPLN/57 GM JAR EXT SCH ×2 (09:28→22:02)
--- NOTE | 2023-05-24 11:31 | Orthopedic Progress Note ---
Date of Service May 24, 2023 Assessment & Plan (1) Diabetic ulcer of right foot: Plan: Patient seen and examined at bedside in room 381-1. Wound appears stable. No immediate signs or symptoms of infection. Dry sterile dressing change applied. Off loading waffle boots applied to Patient. Will consult wound care for application of negative pressure therapy for left heel ulcer. Will continue to follow while in house. Admission and Anticipated Discharge Date Admission Date: May 19, 2023 Subjective Follow-up for diabetic foot ulcer. Patient seen and examined. Review of Systems Review of Systems: All systems reviewed & are unremarkable except as noted in Subjective Physical Exam Constitutional: cooperative and comfortable Eyes: normal visual case by confrontation Neck: normal visual inspection Respiratory: normal respiratory effort Cardiovascular: Vessels: posterior tibial pulses present and dorsalis pedis pulses present Skin: + ulcer (Right heel ulcer) and + wound (left lateral ankle 1 x 1 cm full thickness wound into subcutaneous tissue) Neurologic: moves all extremities (Absent epicritic sensation) Psychiatric: Orientation: alert and oriented x 3 Results & Data Vital Signs (Past 12 Hours) Vital Signs Temp Pulse Resp BP Pulse Ox O2 Del Method 05/24/23 07:44 36.6 C 77 16 142/74 H 98 Room Air (1) Diabetic ulcer of right foot Diabetes mellitus type: other specified (including BRITT) Diabetic foot ulcer location: heel Non-pressure ulcer stage: unspecified non-pressure ulcer stage Qualified Code(s): E13.621 - Other specified diabetes mellitus with foot ulcer; L97.419 - Non-pressure chronic ulcer of right heel and midfoot with unspecified severity
--- NOTE | 2023-05-24 13:39 | Infectious Disease Consult ---
Date of Service May 24, 2023 Telehealth Information I performed this visit using a real-time telehealth connection between my location and the patients location ([facility]). After connecting through interactive tele-video, patient was identified by name and date of and/or wristband check.Patient (or authorized healthcare sales representative printing) was informed that this was a telemedicine visit and it was being conducted confidentially over secure lines. My office door was closed and no one else was present in the room with me.Patient (or authorized healthcare sales representative printing) provided consent to proceed with the visit, expressed an understanding of privacy and security of the telemedicine visit, and gave permission to have a hospital sales representative printing in the room in order to assist with the visit and to conduct portions of the visit, as needed. I informed the patient (or authorized healthcare sales representative printing) that I reviewed their record and presented the opportunity for them to ask any questions regarding the visit today. The patient agreed to participate. Assessment & Plan (1) Diabetic ulcer of right foot: (2) Diabetic infection of right foot: Plan: Assessment: Diabetic ulcer of R foot Hx of DM I w/ diabetic neuropathy and foot ulcer, R ankle w/ metal plate, L ankle abscess/OM w/ ulcer s/p I&D (11/2022), CKD III-IV 05/21/23 bedside debridement of the R heel Recommendations: - Stop vancomycin iv - Switch zosyn to ertapenem 1 gm iv qd to complete total 14 days of abx therapy from 05/20, ending on 06/02/23 - Start amoxicillin 500 mg po tid to cover E faecalis as well, ending on 06/02/23. - Consider C diff pcr if diarrhea persists (i.e., loose BM >=3 per 24 hours). - Probiotic while on abx therapy - Continue wound care - ID signing off Given no OM, a relatively short course of abx seems reasonable. I would use ertapenem instead of zosyn given the presence of ampC-producing and ESBL organisms. More than 50% of [id number] visit was spent counseling and coordinating care pertaining to the patient's infection diagnosis, additional work-up, and treatment option(s) as well as potential adverse events of the treatment. History of Present Illness History of Present Illness This 58 y/o male ([place]), currenly incarcerated at [facility], w/ hx of DM I w/ diabetic neuropathy and foot ulcer, R ankle w/ metal plate, L ankle abscess/OM w/ ulcer s/p I&D (11/2022), CKD III-IV, chronic anemia, chronic hyponatremia/hypokalemia, hypothyroidism, psoriasis, and depression, presented to [facility] on 05/19/23 for worsening R heel ulcer that started as a crack on skin about a month ago. Tried doxycycline 05/12-05/19/23 but the wound worsened w/ swelling. On presentation, no f/c but mild leukocytosis. XR and MRI were negative for OM. Had bedside debridement on 05/21/23. Wound cultures grew Citrobacter, ESBL E coli, and Enterococcus. ID was called for abx recommendation. Loose BM 4-5 times a day but no f/c, n/v, abd pain, coughing, sob, cp, or urinary symptoms. No pain on foot due to neuropathy. Sandie, nursing staff, was at patients bedside during the telemed encounter. Allergies Allergy/AdvReac Type Severity Reaction Status Date / Time sodium chloride AdvReac Unknown CONTRAINDIC Verified 11/21/22 09:44 [From [place] Nasal] ATED. Home Medications Medication Instructions Recorded Confirmed Type Lactobacillus acidophilus 1 tab PO TIDM 03/05/22 05/19/23 History (Acidophilus chewable tablet) alendronate 70 mg tablet 70 mg PO WK 03/05/22 05/19/23 History aspirin 81 mg tablet,delayed 81 mg PO QAM 03/05/22 05/19/23 History release ergocalciferol (vitamin D2) 50 mcg 50 mcg PO WK 03/05/22 05/19/23 History (2,000 unit) capsule fluoxetine 20 mg capsule 40 mg PO QAM 03/05/22 05/19/23 History hydroxyzine pamoate 50 mg capsule 50 mg PO HS 03/05/22 05/19/23 History insulin regular human 100 unit/mL 2 unit subcut BID 03/05/22 05/19/23 History injection solution (Novolin R Regular U-100 Insulin) levothyroxine 150 mcg tablet 150 mcg PO DAILYBB 03/05/22 05/19/23 History metoclopramide HCl 10 mg tablet 10 mg PO ACHS 03/05/22 05/19/23 History ondansetron 8 mg disintegrating 8 mg PO TID 03/05/22 05/19/23 History tablet pantoprazole 40 mg tablet,delayed 40 mg PO BID 03/05/22 05/19/23 History release patiromer calcium sorbitex 25.2 25.2 g PO .DAILY @ 03:45 03/05/22 05/19/23 H istory gram oral powder packet (Veltassa) tamsulosin 0.4 mg capsule 0.4 mg PO HS 03/05/22 05/19/23 History vitamin B complex with C-folic 1 tab PO DAILY 03/05/22 05/19/23 History acid 0.8 mg-zinc citrate 50 mg tablet (Dialyvite 800 with Zinc 50) cyanocobalamin (vitamin B-12) 100 100 mcg PO QAM #30 tabs 03/06/22 05/19/23 Rx mcg tablet (Vitamin B-12) folic acid 1 mg tablet 1 mg PO QAM #30 tabs 03/06/22 05/19/23 Rx epoetin sanchez 10,000 unit/mL 10,000 unit subcut WK 11/21/22 05/19/23 History injection solution (Epogen) ascorbic acid (vitamin C) 500 mg 500 mg PO QAM 12/14/22 05/19/23 History tablet (Vitamin C) atorvastatin 40 mg tablet 40 mg PO HS 12/14/22 05/19/23 History insulin regular human 100 unit/mL 1 sliding scale dose subcut 12/14/22 05/19/23 History injection solution (Novolin R USEASDIRECTD PRN Hyperglycemia Regular U-100 Insulin) sodium bicarbonate 650 mg tablet 650 mg PO BID 12/14/22 05/19/23 History lactobacillus combo no.11 15 1 cap PO DAILY #30 caps 12/22/22 05/19/23 Rx billion cell sprinkle capsule (Probiotic) ibuprofen 600 mg tablet 600 mg PO TID PRN Pain 05/19/23 05/19/23 History insulin glargine 100 unit/mL 14 unit subcut DAILY 05/19/23 05/19/23 History subcutaneous solution Patient History Medical History Chronic anemia Chronic hyperkalemia Chronic hyponatremia Chronic nausea CKD (chronic kidney disease) Diabetes mellitus type 1 Hypothyroidism Non-STEMI (non-ST elevated myocardial infarction) NSTEMI (non-ST elevated myocardial infarction) Orthostatic hypotension on chronic fludrocortisone Proteinuria Psoriasis Surgical History Status post right foot surgery Family History Other Heart disease Social History Smoking Status: Former smoker Tobacco Type: Cigarettes Cigarettes Per Day: 1 ppd; Second Hand Exposure: No; Do You Dip or Chew Tobacco: No; Tobacco Cessation Education Requested by Patient: No Hx Alcohol Use: No Hx Substance Use: No Preferred Language: Uzbek Communication Ability: Effective Visual Impairment: No Limitations Vision Therapist Required: No Beliefs That Will Affect Care: None Current Living Situation: Other Current Living Situation Comment: [facility] Other Information That Helps Us Care for You: No Feels Safe at Home: Yes Safety Concerns: Feels Safe At This Time Assistive Devices: Wheelchair Review of Systems as HPI and all others negative Physical Exam Gen: no acute distress Ext: unable to examine today Neuro: awake, alert, oriented x3, fully conversant and following commands Results & Data Vital Signs (Past 12 Hours) Vital Signs Temp Pulse Resp BP Pulse Ox O2 Del Method 05/24/23 07:44 36.6 C 77 16 142/74 H 98 Room Air Laboratory Results WBC 12.28K H 7.3 Plt 442K Cr 2.38 (CrCl 35.9) Blood cx (05/19/23): NG MRI of L ankle (05/19): 1. No definite evidence of osteomyelitis 2. Improving soft tissue edema lateral to the lateral malleolus 3. 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 MRI of R ankle (05/19): 1. No evidence of calcaneal osteomyelitis. 2. 4 mm anterior subluxation at the tibiotalar joint. Diagnostic Findings R heel wound cx (05/19): C freundii (S to cefep, ctx, erta, lvq, tanja, zosyn; I to tobra, cipro; R to gent, bact), ESBL E coli (S to ertap, gent, tanja, tobra), E faecalis (S to amp, dapto, pcn, vanco) Medications Administered Zosyn + vancomycin iv -> ertapenem + vancomycin iv (1) Diabetic ulcer of right foot Diabetes mellitus type: other specified (including BRITT) Diabetic foot ulcer location: heel Non-pressure ulcer stage: unspecified non-pressure ulcer stage Qualified Code(s): E13.621 - Other specified diabetes mellitus with foot ulcer; L97.419 - Non-pressure chronic ulcer of right heel and midfoot with unspecified severity
--- NOTE | 2023-05-24 16:23 | Hospitalist Progress Note ---
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. Right heel x-ray and right ankle MRI negative for osteomyelitis Podiatry consulted, input appreciated. S/p bedside debridement on 05/21. Initially placed on Vanco and Zosyn -received for 4 days Wound culture -Citrobacter freundii, ESBL E. coli, Enterococcus Zosyn changed to ertapenem on 05/22 based on sensitivity report. Remains on Vanco (day 6) ID consult, input appreciated: Stop vancomycin iv Ertapenem 1 gm iv qd to complete total 14 days of abx therapy from 05/20, ending on 06/02/23 Start amoxicillin 500 mg po tid to cover E faecalis as well, ending on 06/02/23. Midline ordered for IV ertapenem Wound care nurse following. Dr. Stout requesting wound vac eval. DIARRHEA Had diarrhea on 05/23 C. difficile testing negative Received 1 dose of Imodium with improvement Probiotic while on antibiotics (3) Diabetes mellitus type 1: Plan: Hgb A1c 6.9 Lantus and NovoLog (4) Acute hyperkalemia: Plan: Potassium noted to be 5.5 on presentation K+ 4.2 today Continue valtessa Monitor BMP (5) Anemia: Plan: History of chronic anemia with Hgb varying between ~ 7.0-11.0 Hgb 7.7 on presentation Hgb 7.3 today No signs of active bleeding Likely chronic anemia in the setting of CKD Monitor CBC (6) Chronic kidney insufficiency: Plan: CKD stage III noted in hx, appears he may be stage IV Baseline creatinine ~ mid 2s Creatinine 2.8 on 05/22 (up from 2.2 the previous day). Received 1 L IVF Creatinine 2.3 today Continue to monitor renal functions DVT PROPHYLAXIS SQ heparin Dispo -pending, likely d/c back to [facility] tomorrow on IV ertapenem and once wound care plan is established Patient seen in collaboration with Dr. Bowen. Admission and Anticipated Discharge Date Admission Date: May 19, 2023 Supervising Physician Co-Signing Physician Notes Pt seen and examined by myself, Mirtha Bowen MD on the day of service. Care was coordinated with KAYLIE Williamson. Seen with guards at bedside. Denied chest pain, SOB, N/V. Tolerating food well, having BMs. Appreciate wound care and podiatry recs- question of need for wound vac. Otherwise as above. Subjective Follow-up for diabetic foot ulcer. Patient seen and examined. Doing well, offers no complaints. Diarrhea much improved after 1 dose of Imodium. Remains afebrile. No chest pain or shortness of breath. Denies abdominal pain and nausea. Physical Exam Constitutional: WD/WN, vitals as above no acute distress Respiratory: normal respiratory effort, lungs clear to auscultation Cardiovascular: Rate/Rhythm: regular rate and regular rhythm Vessels: normal peripheral pulses Extremities: no edema Gastrointestinal (Abdomen): Percussion/Palpation: abdomen soft; abdomen nontender Musculoskeletal: Dressing CDI right foot Skin: no rashes, warm and dry Neurologic: no focal motor deficits Psychiatric: A+Ox3, euthymic affect Results & Data Results & Data Vital Signs (Past 12 Hours) Vital Signs Temp Pulse Pulse Resp BP Pulse Ox O2 Del Method 05/24/23 15:22 36.7 C 75 18 151/79 H 99 Room Air 05/24/23 07:44 36.6 C 77 16 142/74 H 98 Room Air Laboratory Results Short CBC 05/24/23 Range/Units 07:28 WBC 12.28 H (4.8-10.8) K/ul Hgb 7.3 L (14.0-18.0) g/dl Hct 23.1 L (42.0-52.0) % Plt Count 442 H (130-400) K/uL BMP 05/24/23 07:28 Sodium 141 Potassium 4.2 Chloride 113 H Carbon Dioxide 22 BUN 43 H Creatinine 2.38 H Glucose 207 H Calcium 8.5 L (1) Diabetic ulcer of right foot Diabetes mellitus type: other specified (including BRITT) Diabetic foot ulcer location: heel Non-pressure ulcer stage: unspecified non-pressure ulcer stage Qualified Code(s): E13.621 - Other specified diabetes mellitus with foot ulcer; L97.419 - Non-pressure chronic ulcer of right heel and midfoot with unspecified severity (5) Anemia Anemia type: unspecified type Qualified Code(s): D64.9 - Anemia, unspecified (6) Chronic kidney insufficiency Chronic kidney disease stage: unspecified stage Qualified Code(s): N18.9 - Chronic kidney disease, unspecified
[2023-05-24] MEDS: CARBOHYDRATES FOR HYPOGLYCEMIA PO PRN ×2 (16:38→16:57)
[2023-05-24] MEDS: hydrOXYzine HCl 25 MG TAB PO SCH (21:36)
[2023-05-24] MEDS: TAMSULOSIN HCL 0.4 MG CAP PO SCH (21:37)
[2023-05-24] MEDS: AMOXICILLIN 500 MG CAP PO SCH (21:37)
[2023-05-24] MEDS: ATORVASTATIN 40 MG TAB PO SCH (23:31)
[2023-05-25] MEDS: PATIROMER CALCIUM SORBITEX 8.4 GM PACK PO SCH (05:46)
[2023-05-25] MEDS: LEVOTHYROXINE SODIUM 150 MCG TABLET PO SCH (05:46)
[2023-05-25] MEDS ORDERED: VANCOMYCIN LEVEL ONE (07:00)
[2023-05-25 07:07] LABS: Basophils # (auto) 0.11 K/uL (0.00-0.20); Basophils % (auto) 1.1 %; Eosinophils # (auto) 0.36 K/uL (0.00-0.50); Eosinophils % (auto) 3.6 %; Hematocrit (blood only) 23.6 % (42.0-52.0); Hemoglobin 7.4 g/dl (14.0-18.0); Immature Granulocytes # (auto) 0.04 K/uL (0.01-0.20); Immature Granulocytes % (auto) 0.4 %; Lymphocytes # (auto) 2.39 K/uL (1.20-3.40); Lymphocytes % (auto) 23.9 %; Mean Corpuscular Hemoglobin 30.1 pg (25.0-34.0); Mean Corpuscular Hgb Conc 31.4 g/dL (32.0-36.0); Mean Corpuscular Volume 95.9 fL (80.0-100.0); Monocytes # (auto) 1.12 K/uL (0.11-0.59); Monocytes % (auto) 11.2 %; Neutrophils # (auto) 5.96 K/uL (1.40-6.50); Neutrophils % (auto) 59.8 %; Platelet Count 440 K/uL (130-400); RDW Standard Deviation 60.4 fL (36.4-46.3); Red Blood Count 2.46 M/uL (4.70-6.10); White Blood Count 9.98 K/ul (4.8-10.8)
[2023-05-25 07:25] LABS: Polychromasia 1+; Schistocytes 1+
[2023-05-25 07:29] LABS: Albumin Globulin Ratio 0.9 (0.9-2); BUN Creatinine Ratio 22.5 (10-20); Bilirubin,Total 0.3 mg/dl (0.2-1.0); Calcium 8.5 mg/dl (8.6-10.3); Creatinine Clr Calc Pharmacy 40.1 ml/min; Est GFR (African American) 38.1 ml/min; Est GFR (Non-African American) 32.9 ml/min; Globulin 3.4 gm/dl (2.5-4.0); Magnesium 1.7 mg/dl (1.7-2.4); Phosphorus 3.9 mg/dl (2.5-4.9); Potassium 4.7 mmol/L (3.5-5.1); Total Protein 6.4 gm/dl (6.0-8.3)
[2023-05-25] MEDS: NEPHROCAPS PO SCH (08:11)
[2023-05-25] MEDS: PANTOprazole 40 MG TAB PO SCH ×2 (08:11→21:44)
[2023-05-25] MEDS: AMOXICILLIN 500 MG CAP PO SCH ×3 (08:11→21:44)
[2023-05-25] MEDS: ADVANCED PROBIOTIC 1250 MG CAPSULE PO SCH ×3 (08:11→17:30)
[2023-05-25] MEDS: FOLIC ACID 1 MG TAB PO SCH (08:11)
[2023-05-25] MEDS: CYANOCOBALAMIN (B-12) 100 MCG TABLET PO SCH (08:11)
[2023-05-25] MEDS: SODIUM BICARBONATE 650 MG TAB PO SCH ×2 (08:12→21:44)
[2023-05-25] MEDS: FLUoxetine HCL 20 MG CAP PO SCH (08:12)
[2023-05-25] MEDS: ERTAPENEM SODIUM 1,000 MG in SYRINGE 0 ML IV SCH (08:12)
[2023-05-25] MEDS: BUTT PASTE (ZINC OXIDE 16%) 171 APPLN/57 GM JAR EXT SCH ×2 (08:13→21:45)
[2023-05-25] MEDS: ASPIRIN 81 MG ECTAB PO SCH (08:13)
[2023-05-25] MEDS: HEPARIN SOD 5,000 UNIT/0.5 ML VIAL SQ SCH ×2 (08:13→21:44)
[2023-05-25] MEDS: LANTUS PER UNIT CHARGE SQ SCH (08:24)
[2023-05-25] MEDS: INSULIN ASPART PER UNIT CHARGE SC SCH ×4 (08:24→21:55)
--- NOTE | 2023-05-25 14:03 | Hospitalist Progress Note ---
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 Right heel x-ray and right ankle MRI negative for osteomyelitis Podiatry consulted, input appreciated. S/p bedside debridement on 05/21. Initially placed on Vanco and Zosyn -received for 4 days Wound culture -Citrobacter freundii, ESBL E. coli, Enterococcus Zosyn changed to ertapenem on 05/22, vanco discontinued 05/25 ID consult, input appreciated: Stop vancomycin iv Ertapenem 1 gm iv qd to complete total 14 days of abx therapy from 05/20, ending on 06/02/23 Start amoxicillin 500 mg po tid to cover E faecalis as well, ending on 06/02/23. Ultrasound guided IV in place - per CM, [facility] is still awaiting IV abx. Plan to dc once they received IV Ertapenem, hopefully tomorrow AM. No plan for wound vac per at discharge per discussion with Dr. Stout DIARRHEA Had diarrhea on 05/23 C. difficile testing negative Received 1 dose of Imodium with improvement Probiotic while on antibiotics (3) Diabetes mellitus type 1: Plan: Hgb A1c 6.9 Lantus and NovoLog (4) Acute hyperkalemia: Plan: Potassium noted to be 5.5 on presentation K+ 4.2 today Continue valtessa Monitor BMP (5) Anemia: Plan: History of chronic anemia with Hgb varying between ~ 7.0-11.0 Hgb 7.7 on presentation Hgb 7.3 today No signs of active bleeding Likely chronic anemia in the setting of CKD Monitor CBC (6) Chronic kidney insufficiency: Plan: CKD stage III noted in hx, appears he may be stage IV Baseline creatinine ~ mid 2s Creatinine 2.13 (improved) Continue to monitor renal functions DVT PROPHYLAXIS SQ heparin Dispo -pending, likely d/c back to [facility] tomorrow Patient seen in collaboration with Dr. Bowen. Admission and Anticipated Discharge Date Admission Date: May 19, 2023 Supervising Physician Co-Signing Physician Notes Pt seen and examined by myself, Mirtha Bowen MD on the day of service. Care was coordinated with Tawnya Harper PA-C. Seen with guards at bedside. Denied chest pain, SOB, N/V. Tolerating food well, having BMs. Appreciate wound care and podiatry recs- question of need for wound vac, per podiatry no plan for wound vac. Awaiting return to [facility] once IV meds in place there. Otherwise as above. Subjective Seen in 381-1 in follow-up for diabetic foot ulcer. Doing well, offers no complaints. Denies continued diarrhea. No F/C, lightheadedness, CP, SOB, N/V, abdominal pain, dysuria. Just had peripheral line placed. Review of Systems Review of Systems: At least ten systems reviewed and negative except as noted in the HPI. Physical Exam Physical Exam: Gen: WD/WN, NAD, sitting in bedside chair, A&Ox3 HEENT: Normocephalic, atraumatic, conjunctivae moist, sclerae anicteric, mucous membranes moist Lung: Clear to Auscultation bilaterally, no wheezes/rales/rhonchi Heart: Regular rate, regular rhythm, no murmurs, rubs, or gallops Abdomen: Soft, NT, ND +BS x 4 Extremities: RLE surgical dressing c/d/i. No edema Skin: Warm, no rash Results & Data Results & Data Vital Signs (Past 12 Hours) Vital Signs Temp Pulse Resp BP Pulse Ox O2 Del Method 05/25/23 08:00 Room Air 05/25/23 07:57 36.7 C 82 18 131/78 98 Room Air Laboratory Results Short CBC 05/25/23 Range/Units 06:38 WBC 9.98 (4.8-10.8) K/ul Hgb 7.4 L (14.0-18.0) g/dl Hct 23.6 L (42.0-52.0) % Plt Count 440 H (130-400) K/uL BMP 05/25/23 06:38 Sodium 141 Potassium 4.7 Chloride 111 H Carbon Dioxide 23 BUN 48 H Creatinine 2.13 H Glucose 222 H Calcium 8.5 L Liver Function 05/25/23 Range/Units 06:38 Total Bilirubin 0.3 (0.2-1.0) mg/dl AST 19 (13-39) U/L ALT 28 (7-52) U/L Alkaline Phosphatase 84 (34-104) U/L Albumin 3.0 L (3.4-5.0) gm/dl Diagnostic Findings Calcaneus X-Ray 05/19/23 13:05 XR calcaneus RT min 2V CLINICAL HISTORY: R heel wound TECHNIQUE: 2 views of the right calcaneus were obtained. Comparison: None available at the time of this dictation. FINDINGS: No evidence of bony erosion is seen. The alignment is anatomic. The joint spaces are well preserved. Vascular calcification and soft tissue swelling are seen. IMPRESSION: No radiographic evidence of osteomyelitis. If clinical concern remains, MRI is a more sensitive modality. ACT 112: Negative or not required by law. Electronically signed by: Sb Becker M.D. 05/19/2023 1:58 PM Chest X-Ray 05/19/23 16:28 XR chest 1V portable HISTORY: 58 years-old Male Sepsis acute sepsis COMPARISON: 03/05/2002 TECHNIQUE: AP view of the chest FINDINGS: Cardiomediastinal and hilar silhouettes are within normal limits. No pneumothorax, pleural effusion, airspace consolidation or pulmonary edema. There is no ill-defined ovoid radiodensity projected over the right scapula, possibly external to the patient. Bones appear grossly intact. IMPRESSION: No acute process. ACT 112: Negative or not required by law. The above report was generated using voice recognition software. It may contain grammatical, syntax or spelling errors. Electronically signed by: Villa Leong M.D. 05/19/2023 5:08 PM Ankle MRI 05/19/23 18:01 Exam(s): MRI LEFT ANKLE Without Contrast EXAM: MR Left Lower Extremity Without Intravenous Contrast, Ankle CLINICAL HISTORY: Reason for exam: Eval left ankle wound, eval for osteomyelitis. TECHNIQUE: Multiplanar magnetic resonance images of the left ankle without intravenous contrast. COMPARISON: 12/05/22 FINDINGS: Fluid: There is ankle joint effusion. Bones/joints: There is approximately 4 mm anterior subluxation at the tibiotalar joint. Degenerative arthritic changes seen at the ankle and talocalcaneal joints. There is improvement in the edema and lateral to the lateral malleolus seen on the prior study from 12/05/22. No bone marrow edema seen in the calcaneus. There is soft tissue edema seen in the dorsum of the foot. IMPRESSION: 1. No definite evidence of osteomyelitis 2. Improving soft tissue edema lateral to the lateral malleolus 3. 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 Electronically signed by: Bryce Fink MD 05/19/23 23:45 PM Ankle MRI 05/19/23 18:01 Exam(s): MRI RIGHT ANKLE Without Contrast EXAM: MR Right Lower Extremity Without Intravenous Contrast, Ankle CLINICAL HISTORY: Reason for exam: R heel, eval for osteomyelitis. TECHNIQUE: Multiplanar magnetic resonance images of the right ankle without intravenous contrast. COMPARISON: No relevant prior studies available. FINDINGS: Fluid: There is ankle joint effusion. There is approximately 4 mm anterior subluxation of the talar dome in relation to the tibial plafond. Bones/joints: There is no bone marrow edema identified in the calcaneus. Evaluation of the midfoot is limited due to extensive artifacts. IMPRESSION: 1. No evidence of calcaneal osteomyelitis. 2. 4 mm anterior subluxation at the tibiotalar joint. Electronically signed by: Bryce Fink MD 05/19/23 23:33 PM (1) Diabetic ulcer of right foot Diabetes mellitus type: other specified (including BRITT) Diabetic foot ulcer location: heel Non-pressure ulcer stage: unspecified non-pressure ulcer stage Qualified Code(s): E13.621 - Other specified diabetes mellitus with foot ulcer; L97.419 - Non-pressure chronic ulcer of right heel and midfoot with unspecified severity (5) Anemia Anemia type: unspecified type Qualified Code(s): D64.9 - Anemia, unspecified (6) Chronic kidney insufficiency Chronic kidney disease stage: unspecified stage Qualified Code(s): N18.9 - Chronic kidney disease, unspecified
[2023-05-25] MEDS: TAMSULOSIN HCL 0.4 MG CAP PO SCH (21:44)
[2023-05-25] MEDS: ATORVASTATIN 40 MG TAB PO SCH (21:44)
[2023-05-25] MEDS: hydrOXYzine HCl 25 MG TAB PO SCH (21:44)
--- NOTE | 2023-05-25 22:59 | Orthopedic Progress Note ---
Date of Service May 25, 2023 Assessment & Plan (1) Diabetic ulcer of right foot: Plan: Patient seen and examined at bedside in room 381-1. Wound appears stable. No immediate signs or symptoms of infection. Dry sterile dressing change applied. Off loading waffle boots applied to Patient. Will consult wound care for application of negative pressure therapy for left heel ulcer. Will continue to follow while in house. Admission and Anticipated Discharge Date Admission Date: May 19, 2023 Subjective Patient seen and examined at beside room 381-1 for diabetic foot ulcer. Patient resting comforta, offers no complaints. Denies continued diarrhea. No F/C, lightheadedness, CP, SOB, N/V, abdominal pain, dysuria. Just had peripheral line placed. Physical Exam Constitutional: cooperative and comfortable Eyes: normal visual case by confrontation Neck: normal visual inspection Respiratory: normal respiratory effort Cardiovascular: Vessels: posterior tibial pulses present and dorsalis pedis pulses present Skin: + ulcer (Right heel ulcer) and + wound ( left lateral ankle 1 x 1 cm full thickness wound into subcutaneous tissue) Neurologic: moves all extremities (Absent epicritic sensation) Psychiatric: Orientation: alert and oriented x 3 Results & Data Vital Signs (Past 12 Hours) Vital Signs Temp Pulse Resp BP BP Pulse Ox O2 Del Method 05/25/23 22:52 36.3 C L 76 18 153/80 H 97 Room Air 05/25/23 14:55 36.4 C 76 18 123/66 100 Room Air (1) Diabetic ulcer of right foot Diabetes mellitus type: other specified (including BRITT) Diabetic foot ulcer location: heel Non-pressure ulcer stage: unspecified non-pressure ulcer stage Qualified Code(s): E13.621 - Other specified diabetes mellitus with foot ulcer; L97.419 - Non-pressure chronic ulcer of right heel and midfoot with unspecified severity
[2023-05-26] MEDS: PATIROMER CALCIUM SORBITEX 8.4 GM PACK PO SCH (05:32)
[2023-05-26] MEDS: LEVOTHYROXINE SODIUM 150 MCG TABLET PO SCH (05:32)
[2023-05-26 07:50] LABS: Basophils # (auto) 0.14 K/uL (0.00-0.20); Basophils % (auto) 1.4 %; Eosinophils # (auto) 0.46 K/uL (0.00-0.50); Eosinophils % (auto) 4.7 %; Hematocrit (blood only) 24.5 % (42.0-52.0); Hemoglobin 7.6 g/dl (14.0-18.0); Immature Granulocytes # (auto) 0.05 K/uL (0.01-0.20); Immature Granulocytes % (auto) 0.5 %; Lymphocytes % (auto) 24.4 %; Mean Corpuscular Hemoglobin 30.3 pg (25.0-34.0); Mean Corpuscular Volume 97.6 fL (80.0-100.0); Mean Platelet Volume 9.2 fL (9.4-12.4); Monocytes # (auto) 1.07 K/uL (0.11-0.59); Monocytes % (auto) 10.9 %; Neutrophils % (auto) 58.1 %; Platelet Count 450 K/uL (130-400); RDW Coefficient of Variation 17.2 % (11.5-14.5); Red Blood Count 2.51 M/uL (4.70-6.10); White Blood Count 9.82 K/ul (4.8-10.8)
[2023-05-26 08:11] LABS: Albumin Globulin Ratio 0.9 (0.9-2); BUN Creatinine Ratio 24.8 (10-20); Bilirubin,Total 0.3 mg/dl (0.2-1.0); Calcium 8.4 mg/dl (8.6-10.3); Creatinine Clr Calc Pharmacy 35.3 ml/min; Est GFR (African American) 32.7 ml/min; Est GFR (Non-African American) 28.2 ml/min; Globulin 3.5 gm/dl (2.5-4.0); Magnesium 1.7 mg/dl (1.7-2.4); Phosphorus 4.7 mg/dl (2.5-4.9); Potassium 4.9 mmol/L (3.5-5.1); Total Protein 6.5 gm/dl (6.0-8.3)
[2023-05-26] MEDS: ERTAPENEM SODIUM 1,000 MG in SYRINGE 0 ML IV SCH (08:14)
[2023-05-26] MEDS: ADVANCED PROBIOTIC 1250 MG CAPSULE PO SCH ×3 (08:18→17:53)
[2023-05-26] MEDS: ASPIRIN 81 MG ECTAB PO SCH (08:19)
[2023-05-26] MEDS: CYANOCOBALAMIN (B-12) 100 MCG TABLET PO SCH (08:19)
[2023-05-26] MEDS: FOLIC ACID 1 MG TAB PO SCH (08:20)
[2023-05-26] MEDS: FLUoxetine HCL 20 MG CAP PO SCH (08:20)
[2023-05-26] MEDS: NEPHROCAPS PO SCH (08:21)
[2023-05-26] MEDS: PANTOprazole 40 MG TAB PO SCH ×2 (08:21→21:13)
[2023-05-26] MEDS: SODIUM BICARBONATE 650 MG TAB PO SCH ×2 (08:22→21:13)
[2023-05-26 08:29] LABS: Polychromasia 1+
[2023-05-26] MEDS: LANTUS PER UNIT CHARGE SQ SCH (08:41)
[2023-05-26] MEDS: INSULIN ASPART PER UNIT CHARGE SC SCH ×4 (08:42→23:15)
[2023-05-26] MEDS: HEPARIN SOD 5,000 UNIT/0.5 ML VIAL SQ SCH ×2 (08:43→21:16)
[2023-05-26] MEDS: AMOXICILLIN 500 MG CAP PO SCH ×3 (08:48→21:13)
[2023-05-26] MEDS: BUTT PASTE (ZINC OXIDE 16%) 171 APPLN/57 GM JAR EXT SCH ×2 (10:19→21:13)
--- NOTE | 2023-05-26 14:12 | Hospitalist Progress Note ---
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 Right heel x-ray and right ankle MRI negative for osteomyelitis Podiatry consulted, input appreciated. S/p bedside debridement on 05/21. Initially placed on Vanco and Zosyn -received for 4 days Wound culture -Citrobacter freundii, ESBL E. coli, Enterococcus Zosyn changed to ertapenem on 05/22, vanco discontinued 05/25 ID consult, input appreciated: Stop vancomycin iv Ertapenem 1 gm iv qd to complete total 14 days of abx therapy from 05/20, ending on 06/02/23 Start amoxicillin 500 mg po tid to cover E faecalis as well, ending on 06/02/23. Ultrasound guided IV in place - per CM, [facility] is still awaiting IV abx. Plan to dc once they received IV Ertapenem (can call [phone], Medical dept to check if arrived overnight) No plan for wound vac per at discharge per discussion with Dr. Stout DIARRHEA Had diarrhea on 05/23 C. difficile testing negative Received 1 dose of Imodium with improvement Probiotic while on antibiotics (3) Diabetes mellitus type 1: Plan: Hgb A1c 6.9 Lantus and NovoLog (4) Acute hyperkalemia: Plan: Potassium noted to be 5.5 on presentation K+ 4.9 today Continue Valtessa Monitor BMP (5) Anemia: Plan: History of chronic anemia with Hgb varying between ~ 7.0-11.0 Hgb 7.7 on presentation Hgb 7.6 today No signs of active bleeding Likely chronic anemia in the setting of CKD Monitor CBC (6) Chronic kidney insufficiency: Plan: CKD stage III noted in hx, appears he may be stage IV Creatinine at baseline~ mid 2s Continue to monitor renal functions DVT PROPHYLAXIS SQ heparin Dispo -pending, likely d/c back to [facility] over the weekend once abx arrives Patient seen in collaboration with Dr. Bowen. Admission and Anticipated Discharge Date Admission Date: May 19, 2023 Supervising Physician Co-Signing Physician Notes Pt seen and examined by myself, Mirtha Bowen MD on the day of service. Care was coordinated with Tawnya Harper PA-C. Seen with guards at bedside. Denied chest pain, SOB, N/V. Tolerating food well, having BMs. Appreciate wound care and podiatry recs- no plan for wound vac. Awaiting return to [facility] once IV meds in place there- reportedly med Ertapenem has not yet arrived. Otherwise as above. Subjective Patient seen and examined at beside room in [id number] for diabetic foot ulcer. Patient resting comfortably, offers no new complaints overnight. Denies continued diarrhea. No F/C, lightheadedness, CP, SOB, N/V, abdominal pain, dysuria. Awaiting discharge. Review of Systems Review of Systems: At least ten systems reviewed and negative except as noted in the HPI. Physical Exam Physical Exam: Gen: WD/WN, NAD, sitting in bedside chair, A&Ox3 HEENT: Normocephalic, atraumatic, conjunctivae moist, sclerae anicteric, mucous membranes moist Lung: Clear to Auscultation bilaterally, no wheezes/rales/rhonchi Heart: Regular rate, regular rhythm, no murmurs, rubs, or gallops Abdomen: Soft, NT, ND +BS x 4 Extremities: RLE surgical dressing c/d/i. No edema Skin: Warm, no rash Results & Data Results & Data Vital Signs (Past 12 Hours) Vital Signs Temp Pulse Resp BP Pulse Ox O2 Del Method 05/26/23 08:04 36.7 C 75 16 155/78 H 100 Room Air Laboratory Results Short CBC 05/26/23 Range/Units 07:10 WBC 9.82 (4.8-10.8) K/ul Hgb 7.6 L (14.0-18.0) g/dl Hct 24.5 L (42.0-52.0) % Plt Count 450 H (130-400) K/uL BMP 05/26/23 07:10 Sodium 140 Potassium 4.9 Chloride 111 H Carbon Dioxide 22 BUN 60 H Creatinine 2.42 H Glucose 186 H Calcium 8.4 L Liver Function 05/26/23 Range/Units 07:10 Total Bilirubin 0.3 (0.2-1.0) mg/dl AST 18 (13-39) U/L ALT 26 (7-52) U/L Alkaline Phosphatase 80 (34-104) U/L Albumin 3.0 L (3.4-5.0) gm/dl Diagnostic Findings Calcaneus X-Ray 05/19/23 13:05 XR calcaneus RT min 2V CLINICAL HISTORY: R heel wound TECHNIQUE: 2 views of the right calcaneus were obtained. Comparison: None available at the time of this dictation. FINDINGS: No evidence of bony erosion is seen. The alignment is anatomic. The joint spaces are well preserved. Vascular calcification and soft tissue swelling are seen. IMPRESSION: No radiographic evidence of osteomyelitis. If clinical concern remains, MRI is a more sensitive modality. ACT 112: Negative or not required by law. Electronically signed by: Sb Becker M.D. 05/19/2023 1:58 PM Chest X-Ray 05/19/23 16:28 XR chest 1V portable HISTORY: 58 years-old Male Sepsis acute sepsis COMPARISON: 03/05/2002 TECHNIQUE: AP view of the chest FINDINGS: Cardiomediastinal and hilar silhouettes are within normal limits. No pneumothorax, pleural effusion, airspace consolidation or pulmonary edema. There is no ill-defined ovoid radiodensity projected over the right scapula, possibly external to the patient. Bones appear grossly intact. IMPRESSION: No acute process. ACT 112: Negative or not required by law. The above report was generated using voice recognition software. It may contain grammatical, syntax or spelling errors. Electronically signed by: Villa Leong M.D. 05/19/2023 5:08 PM Ankle MRI 05/19/23 18:01 Exam(s): MRI LEFT ANKLE Without Contrast EXAM: MR Left Lower Extremity Without Intravenous Contrast, Ankle CLINICAL HISTORY: Reason for exam: Eval left ankle wound, eval for osteomyelitis. TECHNIQUE: Multiplanar magnetic resonance images of the left ankle without intravenous contrast. COMPARISON: 12/05/22 FINDINGS: Fluid: There is ankle joint effusion. Bones/joints: There is approximately 4 mm anterior subluxation at the tibiotalar joint. Degenerative arthritic changes seen at the ankle and talocalcaneal joints. There is improvement in the edema and lateral to the lateral malleolus seen on the prior study from 12/05/22. No bone marrow edema seen in the calcaneus. There is soft tissue edema seen in the dorsum of the foot. IMPRESSION: 1. No definite evidence of osteomyelitis 2. Improving soft tissue edema lateral to the lateral malleolus 3. 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 Electronically signed by: Bryce Fink MD 05/19/23 23:45 PM Ankle MRI 05/19/23 18:01 Exam(s): MRI RIGHT ANKLE Without Contrast EXAM: MR Right Lower Extremity Without Intravenous Contrast, Ankle CLINICAL HISTORY: Reason for exam: R heel, eval for osteomyelitis. TECHNIQUE: Multiplanar magnetic resonance images of the right ankle without intravenous contrast. COMPARISON: No relevant prior studies available. FINDINGS: Fluid: There is ankle joint effusion. There is approximately 4 mm anterior subluxation of the talar dome in relation to the tibial plafond. Bones/joints: There is no bone marrow edema identified in the calcaneus. Evaluation of the midfoot is limited due to extensive artifacts. IMPRESSION: 1. No evidence of calcaneal osteomyelitis. 2. 4 mm anterior subluxation at the tibiotalar joint. Electronically signed by: Bryce Fink MD 05/19/23 23:33 PM (1) Diabetic ulcer of right foot Diabetes mellitus type: other specified (including BRITT) Diabetic foot ulcer location: heel Non-pressure ulcer stage: unspecified non-pressure ulcer stage Qualified Code(s): E13.621 - Other specified diabetes mellitus with foot ulcer; L97.419 - Non-pressure chronic ulcer of right heel and midfoot with unspecified severity (5) Anemia Anemia type: unspecified type Qualified Code(s): D64.9 - Anemia, unspecified (6) Chronic kidney insufficiency Chronic kidney disease stage: unspecified stage Qualified Code(s): N18.9 - Chronic kidney disease, unspecified
[2023-05-26] MEDS: ATORVASTATIN 40 MG TAB PO SCH (21:13)
[2023-05-26] MEDS: TAMSULOSIN HCL 0.4 MG CAP PO SCH (21:13)
[2023-05-26] MEDS: hydrOXYzine HCl 25 MG TAB PO SCH (21:13)
[2023-05-27] MEDS: PATIROMER CALCIUM SORBITEX 8.4 GM PACK PO SCH (06:17)
[2023-05-27] MEDS: LEVOTHYROXINE SODIUM 150 MCG TABLET PO SCH (06:17)
[2023-05-27 07:41] LABS: Hematocrit (blood only) 23.2 % (42.0-52.0); Hemoglobin 7.5 g/dl (14.0-18.0); Mean Corpuscular Hemoglobin 30.7 pg (25.0-34.0); Mean Corpuscular Hgb Conc 32.3 g/dL (32.0-36.0); Mean Corpuscular Volume 95.1 fL (80.0-100.0); Mean Platelet Volume 9.6 fL (9.4-12.4); Platelet Count 475 K/uL (130-400); RDW Coefficient of Variation 16.9 % (11.5-14.5); RDW Standard Deviation 58.8 fL (36.4-46.3); Red Blood Count 2.44 M/uL (4.70-6.10); White Blood Count 9.17 K/ul (4.8-10.8)
[2023-05-27 07:54] LABS: Basophils # (auto) 0.11 K/uL (0.00-0.20); Basophils % (auto) 1.2 %; Eosinophils # (auto) 0.52 K/uL (0.00-0.50); Eosinophils % (auto) 5.7 %; Immature Granulocytes # (auto) 0.16 K/uL (0.01-0.20); Immature Granulocytes % (auto) 1.7 %; Lymphocytes # (auto) 2.14 K/uL (1.20-3.40); Lymphocytes % (auto) 23.3 %; Neutrophils # (auto) 5.14 K/uL (1.40-6.50); Neutrophils % (auto) 56.1 %; Poikilocytosis Present; Polychromasia 1+
[2023-05-27 08:07] LABS: Albumin Globulin Ratio 0.8 (0.9-2); BUN Creatinine Ratio 26.3 (10-20); Bilirubin,Total 0.3 mg/dl (0.2-1.0); Calcium 8.4 mg/dl (8.6-10.3); Creatinine Clr Calc Pharmacy 33.5 ml/min; Est GFR (African American) 30.7 ml/min; Est GFR (Non-African American) 26.4 ml/min; Globulin 3.6 gm/dl (2.5-4.0); Magnesium 1.8 mg/dl (1.7-2.4); Phosphorus 4.8 mg/dl (2.5-4.9); Potassium 4.9 mmol/L (3.5-5.1); Total Protein 6.6 gm/dl (6.0-8.3)
--- NOTE | 2023-05-27 09:03 | Hospitalist Progress Note ---
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 Right heel x-ray and right ankle MRI negative for osteomyelitis Podiatry consulted, input appreciated. S/p bedside debridement on 05/21. Initially placed on Vanco and Zosyn -received for 4 days Wound culture -Citrobacter freundii, ESBL E. coli, Enterococcus Zosyn changed to ertapenem on 05/22, vanco discontinued 05/25 ID consult, input appreciated: Stop vancomycin iv Ertapenem 1 gm iv qd to complete total 14 days of abx therapy from 05/20, ending on 06/02/23 Start amoxicillin 500 mg po tid to cover E faecalis as well, ending on 06/02/23. Ultrasound guided IV in place - per CM, [facility] is still awaiting IV abx. Plan to dc once they received IV Ertapenem (can call [phone], Medical dept to check if arrived overnight) -still do not have IV ertapenem at the halfway No plan for wound vac per at discharge per discussion with Dr. Stout DIARRHEA Had diarrhea on 05/23 C. difficile testing negative Received 1 dose of Imodium with improvement Probiotic while on antibiotics (3) Diabetes mellitus type 1: Plan: Hgb A1c 6.9 Lantus and NovoLog (4) Acute hyperkalemia: Plan: Potassium noted to be 5.5 on presentation Continue Valtessa Monitor BMP (5) Anemia: Plan: History of chronic anemia with Hgb varying between ~ 7.0-11.0 Hgb 7.7 on presentation Hgb 7.6 today No signs of active bleeding Likely chronic anemia in the setting of CKD Monitor CBC (6) Chronic kidney insufficiency: Plan: CKD stage III noted in hx, appears he may be stage IV Creatinine at baseline~ mid 2s Continue to monitor renal functions DVT PROPHYLAXIS SQ heparin Dispo -pending, likely d/c back to [facility] over the weekend once abx arrives Admission and Anticipated Discharge Date Admission Date: May 19, 2023 Subjective [facility] contacted, states that they do not have the ertapenem yet but it is due to come tonight. Notes that they will be getting 3 doses. Pt denies acute concerns. Review of Systems Review of Systems: All systems reviewed & are unremarkable except as noted in Subjective Physical Exam Physical Exam: General: Alert, oriented. No acute distress Skin: No noted rashes or bruises Psych: Appropriate mood and affect Neuro: No gross deficits HEENT: NC/AT, Chest: Nontender to palpation. CV: RRR Resp: Breath sounds clear bilaterally, no increased effort of breathing. Extremities:right foot in boot Results & Data Results & Data Vital Signs (Past 12 Hours) Vital Signs Temp Pulse Resp BP Pulse Ox O2 Del Method 05/27/23 08:03 36.7 C 83 16 155/88 H 99 Room Air (1) Diabetic ulcer of right foot Diabetes mellitus type: other specified (including BRITT) Diabetic foot ulcer location: heel Non-pressure ulcer stage: unspecified non-pressure ulcer stage Qualified Code(s): E13.621 - Other specified diabetes mellitus with foot ulcer; L97.419 - Non-pressure chronic ulcer of right heel and midfoot with unspecified severity (5) Anemia Anemia type: unspecified type Qualified Code(s): D64.9 - Anemia, unspecified (6) Chronic kidney insufficiency Chronic kidney disease stage: unspecified stage Qualified Code(s): N18.9 - Chronic kidney disease, unspecified
[2023-05-27] MEDS: ERTAPENEM SODIUM 1,000 MG in SYRINGE 0 ML IV SCH (09:29)
[2023-05-27] MEDS: ASPIRIN 81 MG ECTAB PO SCH (09:31)
[2023-05-27] MEDS: CYANOCOBALAMIN (B-12) 100 MCG TABLET PO SCH (09:31)
[2023-05-27] MEDS: ADVANCED PROBIOTIC 1250 MG CAPSULE PO SCH ×3 (09:31→17:41)
[2023-05-27] MEDS: AMOXICILLIN 500 MG CAP PO SCH ×3 (09:31→21:39)
[2023-05-27] MEDS: NEPHROCAPS PO SCH (09:31)
[2023-05-27] MEDS: SODIUM BICARBONATE 650 MG TAB PO SCH ×2 (09:31→21:39)
[2023-05-27] MEDS: PANTOprazole 40 MG TAB PO SCH ×2 (09:31→21:39)
[2023-05-27] MEDS: FLUoxetine HCL 20 MG CAP PO SCH (09:31)
[2023-05-27] MEDS: FOLIC ACID 1 MG TAB PO SCH (09:33)
[2023-05-27] MEDS: INSULIN ASPART PER UNIT CHARGE SC SCH ×4 (09:37→22:04)
[2023-05-27] MEDS: HEPARIN SOD 5,000 UNIT/0.5 ML VIAL SQ SCH ×2 (09:42→21:39)
[2023-05-27] MEDS: LANTUS PER UNIT CHARGE SQ SCH (09:43)
[2023-05-27] MEDS: BUTT PASTE (ZINC OXIDE 16%) 171 APPLN/57 GM JAR EXT SCH ×2 (09:51→22:27)
[2023-05-27] MEDS: TAMSULOSIN HCL 0.4 MG CAP PO SCH (21:39)
[2023-05-27] MEDS: hydrOXYzine HCl 25 MG TAB PO SCH (21:39)
[2023-05-27] MEDS: ATORVASTATIN 40 MG TAB PO SCH (21:39)
[2023-05-28] MEDS: PATIROMER CALCIUM SORBITEX 8.4 GM PACK PO SCH (05:30)
[2023-05-28] MEDS: LEVOTHYROXINE SODIUM 150 MCG TABLET PO SCH (05:30)
[2023-05-28 06:42] LABS: Basophils # (auto) 0.13 K/uL (0.00-0.20); Basophils % (auto) 1.4 %; Eosinophils # (auto) 0.45 K/uL (0.00-0.50); Eosinophils % (auto) 4.7 %; Hematocrit (blood only) 23.9 % (42.0-52.0); Hemoglobin 7.6 g/dl (14.0-18.0); Immature Granulocytes # (auto) 0.03 K/uL (0.01-0.20); Immature Granulocytes % (auto) 0.3 %; Lymphocytes # (auto) 2.51 K/uL (1.20-3.40); Lymphocytes % (auto) 26.2 %; Mean Corpuscular Hemoglobin 30.6 pg (25.0-34.0); Mean Corpuscular Hgb Conc 31.8 g/dL (32.0-36.0); Mean Corpuscular Volume 96.4 fL (80.0-100.0); Mean Platelet Volume 9.6 fL (9.4-12.4); Monocytes % (auto) 9.4 %; Neutrophils # (auto) 5.57 K/uL (1.40-6.50); Platelet Count 469 K/uL (130-400); RDW Coefficient of Variation 17.1 % (11.5-14.5); Red Blood Count 2.48 M/uL (4.70-6.10); White Blood Count 9.59 K/ul (4.8-10.8)
[2023-05-28 07:11] LABS: Albumin Globulin Ratio 0.8 (0.9-2); BUN Creatinine Ratio 31.2 (10-20); Bilirubin,Total 0.3 mg/dl (0.2-1.0); Calcium 8.3 mg/dl (8.6-10.3); Creatinine Clr Calc Pharmacy 32.5 ml/min; Est GFR (African American) 29.5 ml/min; Est GFR (Non-African American) 25.5 ml/min; Globulin 3.6 gm/dl (2.5-4.0); Magnesium 1.9 mg/dl (1.7-2.4); Phosphorus 5.3 mg/dl (2.5-4.9); Potassium 4.9 mmol/L (3.5-5.1); Total Protein 6.6 gm/dl (6.0-8.3)
[2023-05-28 07:13] LABS: Polychromasia 1+
[2023-05-28] MEDS: BUTT PASTE (ZINC OXIDE 16%) 171 APPLN/57 GM JAR EXT SCH (09:10)
[2023-05-28] MEDS: ADVANCED PROBIOTIC 1250 MG CAPSULE PO SCH ×3 (09:10→16:43)
[2023-05-28] MEDS: ERTAPENEM SODIUM 1,000 MG in SYRINGE 0 ML IV SCH (09:10)
[2023-05-28] MEDS: HEPARIN SOD 5,000 UNIT/0.5 ML VIAL SQ SCH (09:11)
[2023-05-28] MEDS: INSULIN ASPART PER UNIT CHARGE SC SCH ×3 (09:13→16:38)
[2023-05-28] MEDS: LANTUS PER UNIT CHARGE SQ SCH (09:14)
[2023-05-28] MEDS: PANTOprazole 40 MG TAB PO SCH (09:18)
[2023-05-28] MEDS: NEPHROCAPS PO SCH (09:19)
[2023-05-28] MEDS: ASPIRIN 81 MG ECTAB PO SCH (09:19)
[2023-05-28] MEDS: FOLIC ACID 1 MG TAB PO SCH (09:19)
[2023-05-28] MEDS: FLUoxetine HCL 20 MG CAP PO SCH (09:19)
[2023-05-28] MEDS: SODIUM BICARBONATE 650 MG TAB PO SCH (09:19)
[2023-05-28] MEDS: AMOXICILLIN 500 MG CAP PO SCH ×2 (09:19→12:29)
[2023-05-28] MEDS: CYANOCOBALAMIN (B-12) 100 MCG TABLET PO SCH (09:19)
--- NOTE | 2023-05-28 12:47 | Discharge Summary ---
Discharge Summary Date of Service May 28, 2023 Notes For Next Care Provider See summary and med changes below Medication Changes From Visit Ertapenem 1 gm iv qd to complete total 14 days of abx therapy from 05/20, ending on 06/02/23 Start amoxicillin 500 mg po tid to cover E faecalis as well, ending on 06/02/23. Admission HPI Per Admitting Provider This is a 58-year-old male, currently incarcerated at [facility], with PMHx of DM type 1, diabetic heel wound,diabetic neuropathy, HTN, dyslipidemia CKD III, chronic anemia, chronic hyponatremia, chronic hypokalemia, hypothyroidism, depression, chronic nausea vomiting, psoriasis. Patient was previously admitted in November 2022 for a left-sided ankle ulcer complicated by osteomyelitis and abscess, which was refractory to outpatient doxycycline. He underwent I&D, left ankle arthroscopy and a wound VAC was applied on December 17, 2022. At that time the patient had an A1c of 9, poorly controlled diabetes. He underwent HIV testing at that time and was negative. He presents now today with a right heel wound which has been followed by [facility] at [facility]. Pt reports having a cracked heel about a month ago, and it has just worsened over the month. He denies fever, chills, sweats. Pt is chronically in the inf[facility] at [facility] per guards who are present at bedside. He recently completed a 7 week course of doxycycline 100 mg BID from 05/12-05/19. He was told by the nurse that it was more swollen today. He notes there is a metal plate in his ankle and was placed many years ago. Pt denies any pain in the foot as he has diabetic neuropathy and has no sensation to light touch until right below his knees bilaterally. He does not wear shoes, wears slip on shoes within the [facility]. Patient has been eating and drinking without difficulty, he does utilize antiemetics routinely throughout the day for chronic nausea. Denies any changes in bowel habits or urinary habits. Admission Exam Per Admitting Provider General: awake, alert, no apparent distress, elderly white male Head: Normocephalic, atraumatic ENT: PERRL, EOMI, no pharyngeal exudate, mucous membranes moist Extremities: Right foot edematous, swelling in the ankle, heel ulceration with darkened eschar, surrounding erythema but is not spreading, covers the entirety of the heel, left lateral ankle with wound which is about 1 inch in diameter, minimal surrounding erythema. Otherwise normal inspection, no peripheral edema or erythema, calfs nontender to palpation Psych: Normal mood and affect Neuro: AAO x 3, strength intact bilaterally and rated 5/5, no motor deficits, speech is clear, + distal peripheral sensory deficits with numbness at the level of below the knee Principal Dx & Hospital Course #1 = Principal Diagnosis (1) Diabetic ulcer of right foot: (2) Diabetic neuropathy: (3) Diabetes mellitus type 1: (4) Acute hyperkalemia: (5) Anemia: (6) Chronic kidney insufficiency: Plan 58-year-old male currently incarcerated at [facility] with PMHx significant for DM type 1, diabetic heel wound, diabetic neuropathy, HTN, dyslipidemia, CKD III, chronic anemia, chronic hyponatremia, chronic hypokalemia, hypothyroidism, depression, chronic nausea vomiting, psoriasis admitted with a diabetic ulcer of his right foot. Diabetic ulcer of right foot: Diabetic neuropathy: History of septic left ankle with osteomyelitis of fibula and tibia November 2022 Presented with right heel ulcer not responding to treatment at [facility]. Right heel x-ray and right ankle MRI negative for osteomyelitis Podiatry consulted, input appreciated. -S/p bedside debridement on 05/21. Initially placed on Vanco and Zosyn -received for 4 days Wound culture - grew Citrobacter freundii, ESBL E. coli, Enterococcus Zosyn changed to ertapenem on 05/22, vanco discontinued 05/25 ID consult, input appreciated Stop vancomycin iv Ertapenem 1 gm iv qd to complete total 14 days of abx therapy from 05/20, ending on 06/02/23 Start amoxicillin 500 mg po tid to cover E faecalis as well, ending on 06/02/23. Ultrasound guided IV in place - [facility] confirmed they have the IV ertapenem and amoxicillin on 05/28 by KAYLIE Peterson. Discharge back to [facility] on 05/28 after report given to KAYLIE Peterson. No plan for wound vac per at discharge per discussion with Dr. Stout DIARRHEA Had diarrhea on 05/23 C. difficile testing negative Received 1 dose of Imodium with improvement Probiotic while on antibiotics Diabetes mellitus type 1: Hgb A1c 6.9 Received Lantus and NovoLog per protocol Acute hyperkalemia: Potassium noted to be 5.5 on presentation Continue Valtessa, K 4.9 on discharge Monitor BMP Anemia: History of chronic anemia with Hgb varying between ~ 7.0-11.0 Hgb 7.7 on presentation Hgb 7.6 on discharge No signs of active bleeding Likely chronic anemia in the setting of CKD Monitor CBC Chronic kidney insufficiency: CKD stage III noted in hx, appears he may be stage IV Creatinine at baseline~ mid 2s Continue to monitor renal function Discharge Exam General: Alert, oriented. No acute distress Skin: No noted rashes or bruises Psych: Appropriate mood and affect Neuro: No gross deficits HEENT: NC/AT, Chest: Nontender to palpation. CV: RRR Resp: Breath sounds clear bilaterally, no increased effort of breathing. Extremities:right foot in boot Updated Medication List Medication Instructions Recorded Confirmed Type Lactobacillus acidophilus 1 tab PO TIDM 03/05/22 05/19/23 History (Acidophilus chewable tablet) alendronate 70 mg tablet 70 mg PO WK 03/05/22 05/19/23 History aspirin 81 mg tablet,delayed 81 mg PO QAM 03/05/22 05/19/23 History release ergocalciferol (vitamin D2) 50 mcg 50 mcg PO WK 03/05/22 05/19/23 History (2,000 unit) capsule fluoxetine 20 mg capsule 40 mg PO QAM 03/05/22 05/19/23 History hydroxyzine pamoate 50 mg capsule 50 mg PO HS 03/05/22 05/19/23 History insulin regular human 100 unit/mL 2 unit subcut BID 03/05/22 05/19/23 History injection solution (Novolin R Regular U-100 Insulin) levothyroxine 150 mcg tablet 150 mcg PO DAILYBB 03/05/22 05/19/23 History metoclopramide HCl 10 mg tablet 10 mg PO ACHS 03/05/22 05/19/23 History ondansetron 8 mg disintegrating 8 mg PO TID 03/05/22 05/19/23 History tablet pantoprazole 40 mg tablet,delayed 40 mg PO BID 03/05/22 05/19/23 History release patiromer calcium sorbitex 25.2 25.2 g PO .DAILY @ 03:45 03/05/22 05/19/23 History gram oral powder packet (Veltassa) tamsulosin 0.4 mg capsule 0.4 mg PO HS 03/05/22 05/19/23 History vitamin B complex with C-folic 1 tab PO DAILY 03/05/22 05/19/23 History acid 0.8 mg-zinc citrate 50 mg tablet (Dialyvite 800 with Zinc 50) cyanocobalamin (vitamin B-12) 100 100 mcg PO QAM #30 tabs 03/06/22 05/19/23 Rx mcg tablet (Vitamin B-12) folic acid 1 mg tablet 1 mg PO QAM #30 tabs 03/06/22 05/19/23 Rx epoetin sanchez 10,000 unit/mL 10,000 unit subcut WK 11/21/22 05/19/23 History injection solution (Epogen) ascorbic acid (vitamin C) 500 mg 500 mg PO QAM 12/14/22 05/19/23 History tablet (Vitamin C) atorvastatin 40 mg tablet 40 mg PO HS 12/14/22 05/19/23 History insulin regular human 100 unit/mL 1 sliding scale dose subcut 12/14/22 05/19/23 History injection solution (Novolin R USEASDIRECTD PRN Hyperglycemia Regular U-100 Insulin) sodium bicarbonate 650 mg tablet 650 mg PO BID 12/14/22 05/19/23 History lactobacillus combo no.11 15 1 cap PO DAILY #30 caps 12/22/22 05/19/23 Rx billion cell sprinkle capsule (Probiotic) ibuprofen 600 mg tablet 600 mg PO TID PRN Pain 05/19/23 05/19/23 History insulin glargine 100 unit/mL 14 unit subcut DAILY 05/19/23 05/19/23 History subcutaneous solution amoxicillin 500 mg capsule 500 mg PO TID #15 caps 05/28/23 Rx ertapenem 1 gram solution for 1 g IV DAILY #10 ea 05/28/23 Rx injection Additional Medication Comments Current Inpatient Medications Acetaminophen (Acetaminophen 325 Mg Tab) 650 mg PO Q4H PRN PRN Reason: Moderate Pain (Scale 4, 5, 6) Stop: 06/18/23 21:54 Amoxicillin (Amoxicillin 500 Mg Cap) 500 mg PO TID [facility]; Protocol Stop: 06/02/23 20:59 Last Admin: 05/28/23 12:29 Dose: 500 mg Aspirin (Aspirin 81 Mg Ectab) 81 mg PO QAM [facility] Stop: 06/19/23 08:59 Last Admin: 05/28/23 09:19 Dose: 81 mg Atorvastatin Calcium (Atorvastatin 40 Mg Tab) 40 mg PO HS [facility] Stop: 06/18/23 21:54 Last Admin: 05/27/23 21:39 Dose: 40 mg Cyanocobalamin (Cyanocobalamin (B-12) 100 Mcg Tablet) 100 mcg PO QAM [facility] Stop: 06/19/23 08:59 Last Admin: 05/28/23 09:19 Dose: 100 mcg Dextrose (Dextrose 50% 50 Ml Syringe) 25 - 50 ml IV UD PRN; Protocol PRN Reason: Hypoglycemia Protocol Stop: 06/18/23 21:54 Dextrose (Dextrose 50% 50 Ml Syringe) 25 - 50 ml IV UD PRN; Protocol PRN Reason: Hypoglycemia Protocol Stop: 06/21/23 06:42 Fluoxetine HCl (Fluoxetine Hcl 20 Mg Cap) 40 mg PO QAM [facility] Stop: 06/19/23 08:59 Last Admin: 05/28/23 09:19 Dose: 40 mg Folic Acid (Folic Acid 1 Mg Tab) [facility] [place] Stop: 06/19/23 08:59 Last Admin: 05/28/23 09:19 Dose: 1 mg Glucagon (Glucagon For Inj 1 Mg Vial) 1 mg SQ UD PRN; Protocol PRN Reason: Hypoglycemia Protocol Stop: 06/18/23 21:54 Glucagon (Glucagon For Inj 1 Mg Vial) 1 mg SQ UD PRN; Protocol PRN Reason: Hypoglycemia Protocol Stop: 06/21/23 06:42 Glucose (Glucose 10 Tab/Tube) 4 - 8 tab PO UD PRN; Protocol PRN Reason: Hypoglycemia Treatment Stop: 06/18/23 21:54 Glucose (Glucose 40% Gel 15 Gm Tube) 15 - 30 gm PO UD PRN; Protocol PRN Reason: Hypoglycemia Protocol Stop: 06/18/23 21:54 Glucose (Glucose 10 Tab/Tube) 4 - 8 tab PO UD PRN; Protocol PRN Reason: Hypoglycemia Treatment Stop: 06/21/23 06:42 Glucose (Glucose 40% Gel 15 Gm Tube) 15 - 30 gm PO UD PRN; Protocol PRN Reason: Hypoglycemia Protocol Stop: 06/21/23 06:42 Heparin Sodium (Porcine) (Heparin Sod 5,000 Unit/0.5 Ml Vial) 5,000 units SQ Q12 MARY Stop: 06/18/23 21:54 Last Admin: 05/28/23 09:11 Dose: 5,000 units Hydroxyzine HCl (Hydroxyzine Hcl 25 Mg Tab) 50 mg PO HS [facility] Stop: 06/18/23 21:54 Last Admin: 05/27/23 21:39 Dose: 50 mg Ertapenem 1,000 mg/ Syringe 10 mls @ 2 mls/min IV Q24H MARY Stop: 05/29/23 07:59 Last Admin: 05/28/23 09:10 Dose: 2 mls/min Insulin Aspart (Insulin Aspart Per Unit Charge) 0 units SC ACHS [facility] Stop: 06/21/23 07:29 Last Admin: 05/28/23 12:49 Dose: 8 units Insulin Glargine (Lantus Per Unit Charge) 14 units SQ QAM [facility] Stop: 06/21/23 08:59 Last Admin: 05/28/23 09:14 Dose: 14 units Lactobacillus Acidophilus (Advanced Probiotic 1250 Mg Capsule) 2 cap PO TIDM [facility] Stop: 06/19/23 07:59 Last Admin: 05/28/23 12:29 Dose: 2 cap Levothyroxine Sodium (Levothyroxine Sodium 150 Mcg Tablet) 150 mcg PO DAILYBB [facility] Stop: 06/19/23 06:29 Last Admin: 05/28/23 05:30 Dose: 150 mcg Loperamide HCl (Loperamide Hcl 2 Mg Cap) 2 mg PO BID PRN PRN Reason: diarrhea Stop: 06/22/23 10:43 Last Admin: 05/23/23 12:41 Dose: 2 mg Miscellaneous (Carbohydrates For Hypoglycemia ) 15 - 30 gm PO UD PRN PRN Reason: Hypoglycemia Protocol Stop: 06/18/23 21:54 Last Admin: 05/24/23 16:57 Dose: 15 gm Miscellaneous (Carbohydrates For Hypoglycemia ) 15 - 30 gm PO UD PRN PRN Reason: Hypoglycemia Protocol Stop: 06/21/23 06:42 Ondansetron HCl (Ondansetron Inj 2 Mg/Ml 2 Ml Vial) 4 mg IV Q4H PRN PRN Reason: Nausea And Vomiting Stop: 06/18/23 21:54 Pantoprazole Sodium (Pantoprazole 40 Mg Tab) 40 mg PO BID [facility] Stop: 06/18/23 21:54 Last Admin: 05/28/23 09:18 Dose: 40 mg Patiromer (Patiromer Calcium Sorbitex 8.4 Gm Pack) 25.2 gm PO DAILYBB [facility]ARY Stop: 06/19/23 06:29 Last Admin: 05/28/23 05:30 Dose: Not Given Petrolatum (Butt Paste (Zinc Oxide 16%) 171 Appln/57 Gm Jar) 1 appln EXT BID MARY Stop: 06/22/23 08:59 Last Admin: 05/28/23 09:10 Dose: 1 appln Sodium Bicarbonate (Sodium Bicarbonate 650 Mg Tab) 650 mg PO BID MARY Stop: 06/18/23 21:54 Last Admin: 05/28/23 09:19 Dose: 650 mg Tamsulosin HCl (Tamsulosin Hcl 0.4 Mg Cap) 0.4 mg PO HS MARY Stop: 06/18/23 21:54 Last Admin: 05/27/23 21:39 Dose: 0.4 mg Vitamin B Complex/Folic Acid (Nephrocaps) 1 cap PO DAILY MARY Stop: 06/19/23 08:59 Last Admin: 05/28/23 09:19 Dose: 1 cap Hospital Stay Data Consultations 05/19/23 17:21 ED Decision to Admit Stat 05/19/23 18:04 Consult Orthopedic Surgery Routine 05/22/23 08:01 Consult Infectious Diseases Routine Diagnostic Imagining Performed 05/19/23 18:01 MR ankle LT wo con Stat MR ankle RT wo con Stat Calcaneus X-Ray 05/19/23 13:05 XR calcaneus RT min 2V CLINICAL HISTORY: R heel wound TECHNIQUE: 2 views of the right calcaneus were obtained. Comparison: None available at the time of this dictation. FINDINGS: No evidence of bony erosion is seen. The alignment is anatomic. The joint spaces are well preserved. Vascular calcification and soft tissue swelling are seen. IMPRESSION: No radiographic evidence of osteomyelitis. If clinical concern remains, MRI is a more sensitive modality. ACT 112: Negative or not required by law. Electronically signed by: Sb Becker M.D. 05/19/2023 1:58 PM Chest X-Ray 05/19/23 16:28 XR chest 1V portable HISTORY: 58 years-old Male Sepsis acute sepsis COMPARISON: 03/05/2002 TECHNIQUE: AP view of the chest FINDINGS: Cardiomediastinal and hilar silhouettes are within normal limits. No pneumothorax, pleural effusion, airspace consolidation or pulmonary edema. There is no ill-defined ovoid radiodensity projected over the right scapula, possibly external to the patient. Bones appear grossly intact. IMPRESSION: No acute process. ACT 112: Negative or not required by law. The above report was generated using voice recognition software. It may contain grammatical, syntax or spelling errors. Electronically signed by: Villa Leong M.D. 05/19/2023 5:08 PM Ankle MRI 05/19/23 18:01 Exam(s): MRI LEFT ANKLE Without Contrast EXAM: MR Left Lower Extremity Without Intravenous Contrast, Ankle CLINICAL HISTORY: Reason for exam: Eval left ankle wound, eval for osteomyelitis. TECHNIQUE: Multiplanar magnetic resonance images of the left ankle without intravenous contrast. COMPARISON: 12/05/22 FINDINGS: Fluid: There is ankle joint effusion. Bones/joints: There is approximately 4 mm anterior subluxation at the tibiotalar joint. Degenerative arthritic changes seen at the ankle and talocalcaneal joints. There is improvement in the edema and lateral to the lateral malleolus seen on the prior study from 12/05/22. No bone marrow edema seen in the calcaneus. There is soft tissue edema seen in the dorsum of the foot. IMPRESSION: 1. No definite evidence of osteomyelitis 2. Improving soft tissue edema lateral to the lateral malleolus 3. 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 Electronically signed by: Bryce Fink MD 05/19/23 23:45 PM Ankle MRI 05/19/23 18:01 Exam(s): MRI RIGHT ANKLE Without Contrast EXAM: MR Right Lower Extremity Without Intravenous Contrast, Ankle CLINICAL HISTORY: Reason for exam: R heel, eval for osteomyelitis. TECHNIQUE: Multiplanar magnetic resonance images of the right ankle without intravenous contrast. COMPARISON: No relevant prior studies available. FINDINGS: Fluid: There is ankle joint effusion. There is approximately 4 mm anterior subluxation of the talar dome in relation to the tibial plafond. Bones/joints: There is no bone marrow edema identified in the calcaneus. Evaluation of the midfoot is limited due to extensive artifacts. IMPRESSION: 1. No evidence of calcaneal osteomyelitis. 2. 4 mm anterior subluxation at the tibiotalar joint. Electronically signed by: Bryce Fink MD 05/19/23 23:33 PM Pending Results Patient Have Any Pending Studies at Discharge: No Discharge Instructions Given to Patient (Per Discharging Provider) 58-year-old male currently incarcerated at [facility] with PMHx significant for DM type 1, diabetic heel wound, diabetic neuropathy, HTN, dyslipidemia, CKD III, chronic anemia, chronic hyponatremia, chronic hypokalemia, hypothyroidism, depression, chronic nausea vomiting, psoriasis admitted with a diabetic ulcer of his right foot. Diabetic ulcer of right foot: Diabetic neuropathy: History of septic left ankle with osteomyelitis of fibula and tibia November 2022 Presented with right heel ulcer not responding to treatment at [facility]. Right heel x-ray and right ankle MRI negative for osteomyelitis Podiatry consulted, input appreciated. -S/p bedside debridement on 05/21. Initially placed on Vanco and Zosyn -received for 4 days Wound culture - grew Citrobacter freundii, ESBL E. coli, Enterococcus Zosyn changed to ertapenem on 05/22, vanco discontinued 05/25 ID consult, input appreciated Stop vancomycin iv Ertapenem 1 gm iv qd to complete total 14 days of abx therapy from 05/20, ending on 06/02/23 Start amoxicillin 500 mg po tid to cover E faecalis as well, ending on 06/02/23. Ultrasound guided IV in place - [facility] confirmed they have the IV ertapenem and amoxicillin on 05/28 by KAYLIE Peterson. Discharge back to [facility] on 05/28 after report given to KAYLIE Peterson. No plan for wound vac per at discharge per discussion with Dr. Stout DIARRHEA Had diarrhea on 05/23 C. difficile testing negative Received 1 dose of Imodium with improvement Probiotic while on antibiotics Diabetes mellitus type 1: Hgb A1c 6.9 Received Lantus and NovoLog per protocol Acute hyperkalemia: Potassium noted to be 5.5 on presentation Continue Valtessa, K 4.9 on discharge Monitor BMP Anemia: History of chronic anemia with Hgb varying between ~ 7.0-11.0 Hgb 7.7 on presentation Hgb 7.6 on discharge No signs of active bleeding Likely chronic anemia in the setting of CKD Monitor CBC Chronic kidney insufficiency: CKD stage III noted in hx, appears he may be stage IV Creatinine at baseline~ mid 2s Continue to monitor renal function Total Time Total Time Spent Total Time Spent (In Minutes): > 30 minutes
== END 2023-05-28 18:32 | DRG 623 ==
LOC: ED 12:59 → 3N 17:34 → SUATTDRO 17:34 → 3N 21:31

== ENCOUNTER 2023-07-19 10:45 | Inpatient (IN) ==
[2023-07-19 12:07] LABS: Basophils # (auto) 0.13 K/uL (0.00-0.20); Basophils % (auto) 1.5 %; Eosinophils # (auto) 0.37 K/uL (0.00-0.50); Eosinophils % (auto) 4.4 %; Hematocrit (blood only) 35.2 % (42.0-52.0); Hemoglobin 10.8 g/dl (14.0-18.0); Immature Granulocytes # (auto) 0.02 K/uL (0.01-0.20); Immature Granulocytes % (auto) 0.2 %; Lymphocytes # (auto) 2.66 K/uL (1.20-3.40); Lymphocytes % (auto) 31.4 %; Mean Corpuscular Hemoglobin 28.5 pg (25.0-34.0); Mean Corpuscular Hgb Conc 30.7 g/dL (32.0-36.0); Mean Corpuscular Volume 92.9 fL (80.0-100.0); Mean Platelet Volume 8.4 fL (9.4-12.4); Monocytes # (auto) 0.73 K/uL (0.11-0.59); Monocytes % (auto) 8.6 %; Neutrophils # (auto) 4.55 K/uL (1.40-6.50); Neutrophils % (auto) 53.9 %; Platelet Count 418 K/uL (130-400); RDW Coefficient of Variation 15.8 % (11.5-14.5); RDW Standard Deviation 53.4 fL (36.4-46.3); Red Blood Count 3.79 M/uL (4.70-6.10); White Blood Count 8.46 K/ul (4.8-10.8)
[2023-07-19 12:24] LABS: Albumin Globulin Ratio 0.8 (0.9-2); Albumin Level 3.3 gm/dl (3.4-5.0); Bilirubin,Total 0.3 mg/dl (0.2-1.0); Calcium 8.5 mg/dl (8.6-10.3); Creatinine Clr Calc Pharmacy 38.2 ml/min; Est GFR (African American) 37.7 ml/min; Est GFR (Non-African American) 32.5 ml/min; Globulin 3.9 gm/dl (2.5-4.0); Total Protein 7.2 gm/dl (6.0-8.3)
[2023-07-19] MEDS ORDERED: LACTATED RINGER'S 1,000 ML IV ONE (13:08)
--- NOTE | 2023-07-19 13:14 | Emergency Department Note ---
Impression & Plan Osteomyelitis, Anemia, Cellulitis of right foot, CRF (chronic renal failure) ED Provider Note NAME: MARIELA [id number] AGE: 58 SEX: M : 1965 ARRIVES VIA: Ambulance INFORMANT: Patient[EMS, guards] ED PROVIDER(S): [Kendall Lantigua MD] CHIEF COMPLAINT: Foot ulcer HISTORY OF PRESENT ILLNESS: The patient is a 58-year-old male with diabetes and neuropathy. He has a known ulcer on the right heel. He was actually hospitalized last month and multiple organisms grew for which he required IV antibiotic therapy even in the outpatient setting once discharged. He is not currently on antibiotics. As per the staff at the [facility], the wound has enlarged and there is now some surrounding erythema with a foul odor. The patient was sent for evaluation. The patient has no pain, he has not had fever, chills, cough or congestion. No vomiting. PMHx/PSHx/Social Hx: See Below PHYSICAL EXAM: GENERAL: Patient is in no acute distress. HEENT: No acute trauma, normocephalic atraumatic, mucous membranes moist, no nasal congestion. NECK: No stridor, no adenopathy, no meningismus, trachea is midline. LUNGS: Clear to auscultation bilaterally, no wheeze, no rhonchi, breath sounds equal. HEART: Without murmurs gallops or rubs, regular rate and rhythm. ABDOMEN: Soft, nontender, no peritonitis. EXTREMITIES: No cyanosis, full range of motion of all the joints without pain or difficulty. Patient has a 4 cm ulcer to the right posterior heel. There is a foul odor. There is some surrounding erythema, no warmth. NEUROLOGIC: Oriented x 3, no acute motor or sensory deficits, no focal weakness. SKIN: No jaundice, no diaphoresis. DIFFERENTIAL DIAGNOSIS: Osteomyelitis, cellulitis, diabetic ulcer, electrolyte imbalance, anemia, among others. EMERGENCY DEPARTMENT PROCEDURES: MEDICAL DECISION MAKING: There is no leukocytosis. The patient is anemic however, there is a history of anemia. There is a slight elevation to the platelet count. There was evidence for chronic renal failure but this was baseline looking back at previous testing. No emergent electrolyte abnormality. No concerning liver enzyme elevation. COVID test returned positive. Right foot CT does show potential osteomyelitis with cellulitis. Wound culture results are pending. Patient was given IV vancomycin and IV meropenem. The antibiotics were given based on his previous foot culture results. He received 1 L of IV lactated Ringer's for hydration. The patient is diabetic with a right foot ulcer which appears now to show progression to cellulitis and osteomyelitis. He has grown resistant organisms in the past. Hospitalization is indicated. Patient was found to be COVID-positive however, he was recently diagnosed with this disease, he has no ongoing respiratory symptoms today. I spoke with the patient and the guards, case management was consulted. The on- call hospitalist was consulted. Prior/Outside records/notes reviewed: Discharge summary note from 05/28/2023 discussing his right foot infection and the need for IV antibiotic therapy. Imaging/x-ray results per my interpretation: Chronic Medical/Social conditions affecting care: Incarceration, diabetes with neuropathy. Care/Management discussed with: Case management, the on-call hospitalist. Level of care consideration(s): After review of the information above and other included data: --I believe the patient requires escalation of care to admission DISPOSITION: Admission Past Med/Surg History Medical History HTN (hypertension) Osteomyelitis of ankle CKD (chronic kidney disease), stage III Diabetic ulcer of left ankle Diabetic neuropathy Chronic nausea Chronic hyperkalemia Chronic anemia Chronic hyponatremia CKD (chronic kidney disease) Psoriasis Orthostatic hypotension on chronic fludrocortisone Proteinuria NSTEMI (non-ST elevated myocardial infarction) Diabetes mellitus type 1 Non-STEMI (non-ST elevated myocardial infarction) Hypothyroidism Surgical History Status post right foot surgery Family History Other Heart disease Social History Smoking Status: Former smoker Tobacco Type: Cigarettes Cigarettes Per Day: 1 ppd; Second Hand Exposure: No; Do You Dip or Chew Tobacco: No; Hx Alcohol Use: No Hx Substance Use: No Preferred Language: Japanese Communication Ability: Effective Visual Impairment: No Limitations Fueler Required: No Beliefs That Will Affect Care: None Current Living Situation: Other Current Living Situation Comment: [facility] Feels Safe at Home: Yes Assistive Devices: Wheelchair Allergies Allergies Allergy/AdvReac Type Severity Reaction Status Date / Time sodium chloride AdvReac Unknown CONTRAINDIC Verified 07/19/23 15:29 [From [place] Nasal] ATED. Home Meds Home Medications Medication Instructions Recorded Confirmed alendronate 70 mg tablet 70 mg PO WK 03/05/22 07/19/23 aspirin 81 mg tablet,delayed 81 mg PO QAM 03/05/22 07/19/23 release ergocalciferol (vitamin D2) 50 mcg 50 mcg PO WK 03/05/22 07/19/23 (2,000 unit) capsule fluoxetine 20 mg capsule 40 mg PO QAM 03/05/22 07/19/23 hydroxyzine pamoate 50 mg capsule 50 mg PO HS 03/05/22 07/19/23 insulin regular human 100 unit/mL 2 unit subcut BID 03/05/22 07/19/23 injection solution (Novolin R Regular U-100 Insulin) levothyroxine 150 mcg tablet 150 mcg PO DAILYBB 03/05/22 07/19/23 metoclopramide HCl 10 mg tablet 10 mg PO ACHS 03/05/22 07/19/23 ondansetron 8 mg disintegrating 8 mg PO TID 03/05/22 07/19/23 tablet pantoprazole 40 mg tablet,delayed 40 mg PO BID 03/05/22 07/19/23 release patiromer calcium sorbitex 25.2 25.2 g PO QPM 03/05/22 07/19/23 gram oral powder packet (Veltassa) tamsulosin 0.4 mg capsule 0.4 mg PO HS 03/05/22 07/19/23 vitamin B complex with C-folic 1 tab PO DAILY 03/05/22 07/19/23 acid 0.8 mg-zinc citrate 50 mg tablet (Dialyvite 800 with Zinc 50) epoetin sanchez 10,000 unit/mL 10,000 unit subcut WK 11/21/22 07/19/23 injection solution (Epogen) ascorbic acid (vitamin C) 500 mg 500 mg PO QAM 12/14/22 07/19/23 tablet (Vitamin C) atorvastatin 40 mg tablet 40 mg PO HS 12/14/22 07/19/23 insulin regular human 100 unit/mL 1 sliding scale dose subcut 12/14/22 07/19/23 injection solution (Novolin R USEASDIRECTD PRN Hyperglycemia Regular U-100 Insulin) sodium bicarbonate 650 mg tablet 650 mg PO BID 12/14/22 07/19/23 ibuprofen 600 mg tablet 600 mg PO TID PRN Pain 05/19/23 07/19/23 insulin glargine 100 unit/mL 14 unit subcut DAILY 05/19/23 07/19/23 subcutaneous solution acetaminophen 500 mg tablet 1,000 mg PO TID 07/19/23 07/19/23 (Tylenol Extra Strength) loperamide 2 mg capsule (Imodium 4 mg PO BID PRN LOOSE STOOLS 07/19/23 07/19/23 A-D) Previous Rx's Medication Instructions Recorded cyanocobalamin (vitamin B-12) 100 100 mcg PO QAM #30 tabs 03/06/22 mcg tablet (Vitamin B-12) folic acid 1 mg tablet 1 mg PO QAM #30 tabs 03/06/22 lactobacillus combo no.11 15 1 cap PO DAILY #30 caps 12/22/22 billion cell sprinkle capsule (Probiotic) Results & Data (ED) Vital Signs Vital Signs - 24 hr 07/19/23 11:05 07/19/23 13:18 07/19/23 13:19 Temperature 36.8 C Temperature Source Skin Pulse Rate 81 73 73 Pulse Rate [Apical] Respiratory Rate 20 14 15 Respiratory Effort / Characteristics Non-Labored Spontaneous Respiratory Depth Normal Respiratory Pattern Regular Blood Pressure 102/75 Blood Pressure [Left Arm] Blood Pressure Mean 84 Blood Pressure Mean [Left Arm] Pulse Oximetry 99 Oxygen Delivery Method Room Air Sepsis Recent Fever Within 48 Hours No Sepsis New/Unexplained Change in Mental Status N/A Sepsis Action Taken by Nursing No Action Required 07/19/23 13:19 07/19/23 13:20 07/19/23 13:27 Temperature Temperature Source Pulse Rate 72 Pulse Rate [Apical] 73 Respiratory Rate 17 20 Respiratory Effort / Characteristics Non-Labored Spontaneous Respiratory Depth Normal Respiratory Pattern Blood Pressure 152/98 H Blood Pressure [Left Arm] 152/98 H Blood Pressure Mean 115 Blood Pressure Mean [Left Arm] 116 Pulse Oximetry 97 Oxygen Delivery Method Room Air Sepsis Recent Fever Within 48 Hours Sepsis New/Unexplained Change in Mental Status Sepsis Action Taken by Nursing 07/19/23 13:30 Temperature Temperature Source Pulse Rate 73 Pulse Rate [Apical] Respiratory Rate 16 Respiratory Effort / Characteristics Respiratory Depth Respiratory Pattern Blood Pressure Blood Pressure [Left Arm] Blood Pressure Mean Blood Pressure Mean [Left Arm] Pulse Oximetry Oxygen Delivery Method Sepsis Recent Fever Within 48 Hours Sepsis New/Unexplained Change in Mental Status Sepsis Action Taken by [facility] Medications Current Medication List: was personally reviewed by me Laboratory Data Attestation: I reviewed the patient's lab results. 07/19/23 11:39 07/19/23 11:39 Lab Results 07/19/23 07/19/23 Range/Units 11:39 13:21 WBC 8.46 (4.8-10.8) K/ul RBC 3.79 L (4.70-6.10) M/uL Hgb 10.8 L (14.0-18.0) g/dl Hct 35.2 L (42.0-52.0) % MCV 92.9 (80.0-100.0) fL MCH 28.5 (25.0-34.0) pg MCHC 30.7 L (32.0-36.0) g/dL RDW Std Deviation 53.4 H (36.4-46.3) fL RDW Coeff of Minnie 15.8 H (11.5-14.5) % Plt Count 418 H (130-400) K/uL MPV 8.4 L (9.4-12.4) fL Immature Gran % (Auto) 0.2 % Neut % (Auto) 53.9 % Lymph % (Auto) 31.4 % [place] % (Auto) 8.6 % Eos % (Auto) 4.4 % Baso % (Auto) 1.5 % Neut # (Auto) 4.55 (1.40-6.50) K/uL Lymph # (Auto) 2.66 (1.20-3.40) K/uL [place] # (Auto) 0.73 H (0.11-0.59) K/uL Eos # (Auto) 0.37 (0.00-0.50) K/uL Baso # (Auto) 0.13 (0.00-0.20) K/uL Immature Gran # (Auto) 0.02 (0.01-0.20) K/uL Sodium 137 (136-145) mmol/L Potassium 5.0 (3.5-5.1) mmol/L Chloride 108 H (98-107) mmol/L Carbon Dioxide 24 (21-32) mmol/L Anion Gap 5 (3-11) BUN 30 H (6-23) mg/dl Creatinine 2.15 H (0.6-1.4) mg/dl Est Cr Clr Drug Dosing 38.2 ml/min Est GFR ( Amer) 37.7 ml/min Est GFR (Non-Af Amer) 32.5 ml/min BUN/Creatinine Ratio 14.0 (10-20) Glucose 60 L (70-99(Fasting)) mg/dl Calcium 8.5 L (8.6-10.3) mg/dl Total Bilirubin 0.3 (0.2-1.0) mg/dl AST 20 (13-39) U/L ALT 22 (7-52) U/L Alkaline Phosphatase 120 H (34-104) U/L Total Protein 7.2 (6.0-8.3) gm/dl Albumin 3.3 L (3.4-5.0) gm/dl Globulin 3.9 (2.5-4.0) gm/dl Albumin/Globulin Ratio 0.8 L (0.9-2) SARS-CoV-2, RNA, NAAT POSITIVE A* (NEGATIVE) Administered Medications Discontinued Medications Hydralazine HCl (Hydralazine Hcl 20 Mg/Ml Vial) 10 mg IV NOW STA Stop: 07/19/23 16:37 Last Admin: 07/19/23 17:49 Dose: 10 mg Documented By: MARSHA Lactated Ringer's (Lr) 1,000 mls @ 999 mls/hr IV .Q1H1M ONE Stop: 07/19/23 14:08 Last Infusion: 07/19/23 15:53 Dose: Infused Documented By: Admin: 07/19/23 13:18 Dose: 999 mls/hr Documented By: HS Meropenem 500 mg/ Syringe 10 mls @ 2 mls/min IV NOW ONE; Protocol Stop: 07/19/23 13:19 Last Admin: 07/19/23 14:46 Dose: 2 mls/min Documented By: HS Vancomycin HCl 1,500 mg/ (Sodium Chloride) 530 mls @ 200 mls/hr IV NOW ONE Stop: 07/19/23 15:53 Last Infusion: 07/19/23 17:08 Dose: Infused Documented By: Admin: 07/19/23 14:16 Dose: 200 mls/hr Documented By: Imaging Data Radiologist's Impression: Foot CT 07/19/23 13:[address] WITHOUT CONTRAST CLINICAL HISTORY: Right heel wound. Possible osteomyelitis. COMPARISON STUDY: Right calcaneus radiographs and MRI of the right ankle May 19, 2023. TECHNIQUE: Axial images of the right foot were obtained without IV contrast. Sagittal and coronal reconstructions were viewed. Automated exposure control was utilized for the study. A dose lowering technique was utilized adhering to the principles of ALARA. FINDINGS: Right midfoot fusion is noted. The hardware is intact. No acute fracture within the right foot is present. Degenerative changes within the midfoot are present. No soft tissue gas is present. There are no fluid collections. Extensive vascular calcification is incidentally noted. Talar dome is intact. Right heel wound is noted infiltration of the subcutaneous fat. This suggests cellulitis. There is possible subtle erosion of the adjacent posterior aspect of the right calcaneus shown on axial image 58 of 301. No additional bony erosions are identified. IMPRESSION: 1. Right heel wound. Associated cellulitis. No fluid collections. No soft tissue gas. 2. Possible subtle erosion of the adjacent posterior aspect of the right calcaneus. The findings could reflect early acute osteomyelitis. MRI could be obtained for further evaluation. 3. Right midfoot fusion. Hardware intact. ACT 112: Negative or not required by law. Electronically signed by: Wong Lazaro M.D. 07/19/2023 2:13 PM Discharge Plan Visit Data Chief Complaint: Foot Injury/Pain ED Provider: Kendall Lantigua Discharge Problem: Osteomyelitis, Anemia, Cellulitis of right foot, CRF (chronic renal failure) Patient Disposition: Admitted As Inpatient Condition: Fair Discharge Instructions Interventions: ED Discharge Assessment Last Done: 07/19/23 16:37 Discharge Problem: Osteomyelitis Qualifiers: Osteomyelitis type: unspecified type Osteomyelitis location: foot Laterality: r ight Qualified Code(s): M86.9 - Osteomyelitis, unspecified Anemia Qualifiers: Anemia type: unspecified type Qualified Code(s): D64.9 - Anemia, unspecified CRF (chronic renal failure) Qualifiers: Chronic kidney disease stage: unspecified stage Qualified Code(s): N18.9 - Chronic kidney disease, unspecified
[2023-07-19] MEDS ORDERED: MEROPENEM 500 MG in SYRINGE 0 ML IV ONE (13:15)
[2023-07-19] MEDS ORDERED: VANCOMYCIN HCL 1,500 MG in SODIUM CHLORIDE 0.9% 500 ML IV ONE (13:15)
--- NOTE | 2023-07-19 14:14 | CT Scan Report ---
RIGHT FOOT CT WITHOUT CONTRAST CLINICAL HISTORY: Right heel wound. Possible osteomyelitis. COMPARISON STUDY: Right calcaneus radiographs and MRI of the right ankle May 19, 2023. TECHNIQUE: Axial images of the right foot were obtained without IV contrast. Sagittal and coronal rec onstructions were viewed. Automated exposure control was utilized for the study. A dose lowering viri hnique was utilized adhering to the principles of ALARA. FINDINGS: Right midfoot fusion is noted. The hardware is intact. No acute fracture within the right f oot is present. Degenerative changes within the midfoot are present. No soft tissue gas is present. T here are no fluid collections. Extensive vascular calcification is incidentally noted. Talar dome is intact. Right heel wound is noted infiltration of the subcutaneous fat. This suggests cellulitis. The re is possible subtle erosion of the adjacent posterior aspect of the right calcaneus shown on axial image 58 of 301. No additional bony erosions are identified. IMPRESSION: 1. Right heel wound. Associated cellulitis. No fluid collections. No soft tissue gas. 2. Possible subtle erosion of the adjacent posterior aspect of the right calcaneus. The findings coul d reflect early acute osteomyelitis. MRI could be obtained for further evaluation. 3. Right midfoot fusion. Hardware intact. ACT 112: Negative or not required by law. Electronically signed by: Wong Lazaro M.D. 07/19/2023 2:13 PM
[2023-07-19] MEDS ORDERED: hydrALAZINE HCL 20 MG/ML VIAL IV STA (16:36)
[2023-07-19] MEDS ORDERED: GLUCOSE 10 TAB/TUBE PO PRN (16:37)
[2023-07-19] MEDS ORDERED: GLUCAGON FOR INJ 1 MG VIAL SQ PRN (16:37)
[2023-07-19] MEDS ORDERED: ACETAMINOPHEN 325 MG TAB PO PRN (16:37)
[2023-07-19] MEDS ORDERED: VANCOMYCIN CONSULT ACTIVE PRN (16:37)
[2023-07-19] MEDS ORDERED: GLUCOSE 40% GEL 15 GM TUBE PO PRN (16:37)
--- NOTE | 2023-07-19 16:47 | History & Physical Report ---
Date of Service July 19, 2023 Assessment & Plan (1) Osteomyelitis: (2) Diabetic ulcer of right foot: (3) Diabetic infection of right foot: Plan: Admit to med/surg Patient presenting from [facility] for evaluation of worsening right heel wound. Recently admitted to [facility] 05/19 through 05/28 for polymicrobial right heel wound. Patient was discharged on IV ertapenem and oral amoxicillin. Completed antibiotic courses on 06/02. In the ED, patient is hemodynamically stable, does not appear septic CT right foot suggesting signs of early osteomyelitis of the right calcaneus Received IV meropenem and IV Vanco in the ED based upon previous culture results, will continue with both Right foot MRI Podiatry consult with Dr. Stout Follow wound culture Will need ID consult once wound cultures finalized (4) Diabetes mellitus type 1: Plan: Hgb A1c 6.9 04/2023 Noted to be hypoglycemic on labs, glucose 60, asymptomatic Monitor BSG, hold basal insulin for now, NovoLog per protocol (5) HTN (hypertension): Plan: Hypertensive with BP 185/117 Hydralazine 10 mg IV x 1 ordered Currently not on antihypertensives, history of orthostatic hypotension previously on midodrine Monitor BPs, provide additional antihypertensive if needed (6) COVID-19: Plan: Patient tested positive for COVID-19 reports infection 2 weeks ago with mild symptoms, currently asymptomatic (7) Chronic hyperkalemia: Plan: K+ 5.0 Continue Veltassa (8) CKD (chronic kidney disease), stage III: Plan: Baseline creatinine low - mid 2s Creatinine 2.1 today Continue routine renal medications (9) Chronic anemia: Plan: In the setting of CKD Hgb stable 10.8 Receives Procrit injections weekly (10) Hypothyroidism: Plan: Chronic, stable Continue levothyroxine (11) Depression: Plan: Chronic, stable Continue home meds DVT PROPHYLAXIS SQ heparin Patient seen in collaboration with Dr. Montilla. I spent a total of 75 minutes coordinating, documenting, and providing care for this patient excluding time spent in the performance of separately billed services. This included personally reviewing all current laboratories and imaging studies, medication reconciliation, outpatient chart review, and discussion with specialists. Admission and Anticipated Discharge Date Admission Date: July 19, 2023 History of Present Illness Chief Complaint: Right heel wound Primary Care Provider: [facility] 58-year-old male with PMH DM type I, CKD stage III, diabetic neuropathy, HTN, hypothyroidism, chronic hyperkalemia, chronic anemia, and other problems listed below who presents to the ED for evaluation of right heel wound. History is obtained from the patient and review of records sent from [facility]. Patient is somewhat of a poor historian. Recently admitted to [facility] 05/19 through 05/28 for polymicrobial right heel wound. Patient was discharged on IV ertapenem and oral amoxicillin. Completed antibiotic courses on 06/02. Patient reports worsening of his right heel wound over the past couple of weeks. Thinks he may have been on any antibiotic course but he is unsure. Reports that he was evaluated in the [facility] today and they recommended he be evaluated in the ED. Patient denies fevers and chills. Reports ongoing drainage of the right heel wound since last hospitalization. No chest pain or shortness of breath. Denies lightheadedness, dizziness, diaphoresis, syncopal events. No abdominal pain, nausea, vomiting, diarrhea. No urinary symptoms. In the ED, patient is afebrile, hemodynamically stable. Right foot CT suggest early osteomyelitis of the calcaneus. Patient was given IV meropenem and IV vancomycin. He also has tested positive for COVID-19 however reports being infected about 2 weeks ago and has no further symptoms. Allergies Allergy/AdvReac Type Severity Reaction Status Date / Time sodium chloride AdvReac Unknown CONTRAINDIC Verified 07/19/23 15:29 [From [place] Nasal] ATED. Home Medications Medication Instructions Recorded Confirmed Type alendronate 70 mg tablet 70 mg PO WK 03/05/22 07/19/23 History aspirin 81 mg tablet,delayed 81 mg PO QAM 03/05/22 07/19/23 History release ergocalciferol (vitamin D2) 50 mcg 50 mcg PO WK 03/05/22 07/19/23 History (2,000 unit) capsule fluoxetine 20 mg capsule 40 mg PO QAM 03/05/22 07/19/23 History hydroxyzine pamoate 50 mg capsule 50 mg PO HS 03/05/22 07/19/23 History insulin regular human 100 unit/mL 2 unit subcut BID 03/05/22 07/19/23 History injection solution (Novolin R Regular U-100 Insulin) levothyroxine 150 mcg tablet 150 mcg PO DAILYBB 03/05/22 07/19/23 History metoclopramide HCl 10 mg tablet 10 mg PO ACHS 03/05/22 07/19/23 History ondansetron 8 mg disintegrating 8 mg PO TID 03/05/22 07/19/23 History tablet pantoprazole 40 mg tablet,delayed 40 mg PO BID 03/05/22 07/19/23 History release patiromer calcium sorbitex 25.2 25.2 g PO QPM 03/05/22 07/19/23 History gram oral powder packet (Veltassa) tamsulosin 0.4 mg capsule 0.4 mg PO HS 03/05/22 07/19/23 History vitamin B complex with C-folic 1 tab PO DAILY 03/05/22 07/19/23 History acid 0.8 mg-zinc citrate 50 mg tablet (Dialyvite 800 with Zinc 50) cyanocobalamin (vitamin B-12) 100 100 mcg PO QAM #30 tabs 03/06/22 07/19/23 Rx mcg tablet (Vitamin B-12) folic acid 1 mg tablet 1 mg PO QAM #30 tabs 03/06/22 07/19/23 Rx epoetin sanchez 10,000 unit/mL 10,000 unit subcut WK 11/21/22 07/19/23 History injection solution (Epogen) ascorbic acid (vitamin C) 500 mg 500 mg PO QAM 12/14/22 07/19/23 History tablet (Vitamin C) atorvastatin 40 mg tablet 40 mg PO HS 12/14/22 07/19/23 History insulin regular human 100 unit/mL 1 sliding scale dose subcut 12/14/22 07/19/23 History injection solution (Novolin R USEASDIRECTD PRN Hyperglycemia Regular U-100 Insulin) sodium bicarbonate 650 mg tablet 650 mg PO BID 12/14/22 07/19/23 History lactobacillus combo no.11 15 1 cap PO DAILY #30 caps 12/22/22 07/19/23 Rx billion cell sprinkle capsule (Probiotic) ibuprofen 600 mg tablet 600 mg PO TID PRN Pain 05/19/23 07/19/23 History insulin glargine 100 unit/mL 14 unit subcut DAILY 05/19/23 07/19/23 History subcutaneous solution acetaminophen 500 mg tablet 1,000 mg PO TID 07/19/23 07/19/23 History (Tylenol Extra Strength) loperamide 2 mg capsule (Imodium 4 mg PO BID PRN LOOSE STOOLS 07/19/23 07/19/23 History A-D) Past Med/Surg History Medical History (Updated 07/19/23 @ 17:13 by KAYLIE Williamson) HTN (hypertension) Osteomyelitis of ankle CKD (chronic kidney disease), stage III Diabetic ulcer of left ankle Diabetic neuropathy Chronic nausea Chronic hyperkalemia Chronic anemia Chronic hyponatremia CKD (chronic kidney disease) Psoriasis Orthostatic hypotension on chronic fludrocortisone Proteinuria NSTEMI (non-ST elevated myocardial infarction) Diabetes mellitus type 1 Non-STEMI (non-ST elevated myocardial infarction) Hypothyroidism Surgical History Status post right foot surgery Family History Other Heart disease Social History Smoking Status: Former smoker Tobacco Type: Cigarettes Cigarettes Per Day: 1 ppd; Second Hand Exposure: No; Do You Dip or Chew Tobacco: No; Hx Alcohol Use: No Hx Substance Use: No Preferred Language: Iranian Communication Ability: Effective Visual Impairment: No 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 Beliefs That Will Affect Care: None Current Living Situation: Other Current Living Situation Comment: [facility] Feels Safe at Home: Yes Assistive Devices: Wheelchair Physical Exam Constitutional: WD/WN, vitals as above no acute distress Eyes: PERRL, conjunctivae normal, anicteric sclerae ENMT: external ear and nose normal, oropharynx normal Respiratory: normal respiratory effort, lungs clear to auscultation Cardiovascular: Rate/Rhythm: regular rate and regular rhythm Vessels: normal peripheral pulses Extremities: no edema Gastrointestinal (Abdomen): normal bowel sounds, soft, nontender, no hepatosplenomegaly Musculoskeletal: no cyanosis or clubbing, extremities motor strength 5/5 Skin: no rashes, warm and dry wound noted to right heel ~ 5cm with white/yellow wound bed, no significant drainage or erythema noted Neurologic: PERRL, EOMI, accommodation nl, no face palsy, no dysarthria Psychiatric: A+Ox3, euthymic affect Results & Data Results & Data Vital Signs (Past 12 Hours) Vital Signs Temp Pulse Pulse Resp BP BP Pulse Ox 07/19/23 16:00 77 20 100 07/19/23 16:00 185/117 H 07/19/23 15:50 77 17 99 07/19/23 15:40 79 16 100 07/19/23 15:30 77 18 99 07/19/23 15:20 76 16 99 07/19/23 15:10 76 16 100 07/19/23 15:00 175/112 H 07/19/23 15:00 75 16 98 07/19/23 14:54 75 14 99 07/19/23 14:54 174/109 H 07/19/23 14:53 75 22 174/109 H 99 07/19/23 14:50 76 15 100 07/19/23 14:48 76 17 07/19/23 13:30 73 16 07/19/23 13:27 73 20 152/98 H 97 07/19/23 13:20 72 17 07/19/23 13:19 152/98 H 07/19/23 13:19 73 15 07/19/23 13:18 73 14 07/19/23 11:05 36.8 C 81 20 102/75 99 O2 Del Method 07/19/23 16:00 07/19/23 16:00 07/19/23 15:50 07/19/23 15:40 07/19/23 15:30 07/19/23 15:20 07/19/23 15:10 07/19/23 15:00 07/19/23 15:00 07/19/23 14:54 07/19/23 14:54 07/19/23 14:53 Room Air 07/19/23 14:50 07/19/23 14:48 07/19/23 13:30 07/19/23 13:27 Room Air 07/19/23 13:20 07/19/23 13:19 07/19/23 13:19 07/19/23 13:18 07/19/23 11:05 Room Air Laboratory Results Short CBC 07/19/23 Range/Units 11:39 WBC 8.46 (4.8-10.8) K/ul Hgb 10.8 L (14.0-18.0) g/dl Hct 35.2 L (42.0-52.0) % Plt Count 418 H (130-400) K/uL BMP 07/19/23 11:39 Sodium 137 Potassium 5.0 Chloride 108 H Carbon Dioxide 24 BUN 30 H Creatinine 2.15 H Glucose 60 L Calcium 8.5 L Liver Function 07/19/23 Range/Units 11:39 Total Bilirubin 0.3 (0.2-1.0) mg/dl AST 20 (13-39) U/L ALT 22 (7-52) U/L Alkaline Phosphatase 120 H (34-104) U/L Albumin 3.3 L (3.4-5.0) gm/dl Diagnostic Findings Foot CT 07/19/23 13:[address] WITHOUT CONTRAST CLINICAL HISTORY: Right heel wound. Possible osteomyelitis. COMPARISON STUDY: Right calcaneus radiographs and MRI of the right ankle May 19, 2023. TECHNIQUE: Axial images of the right foot were obtained without IV contrast. Sagittal and coronal reconstructions were viewed. Automated exposure control was utilized for the study. A dose lowering technique was utilized adhering to the principles of ALARA. FINDINGS: Right midfoot fusion is noted. The hardware is intact. No acute fracture within the right foot is present. Degenerative changes within the midfoot are present. No soft tissue gas is present. There are no fluid collections. Extensive vascular calcification is incidentally noted. Talar dome is intact. Right heel wound is noted infiltration of the subcutaneous fat. This suggests cellulitis. There is possible subtle erosion of the adjacent posterior aspect of the right calcaneus shown on axial image 58 of 301. No additional bony erosions are identified. IMPRESSION: 1. Right heel wound. Associated cellulitis. No fluid collections. No soft tissue gas. 2. Possible subtle erosion of the adjacent posterior aspect of the right calcaneus. The findings could reflect early acute osteomyelitis. MRI could be obtained for further evaluation. 3. Right midfoot fusion. Hardware intact. ACT 112: Negative or not required by law. Electronically signed by: Wong Lazaro M.D. 07/19/2023 2:13 PM Code Status & VTE Plan VTE Prophylaxis Plan VTE Prophylaxis will be ordered: Yes Supervising Physician Co-Signing Physician Notes Attending addendum: The patient was seen and examined in emergency room He was sent send pain from the shelter with ongoing deterioration of right heel ulcer No pain sensation due to neuropathy and denies any fever and or chills or any other significant symptoms Possible osteomyelitis as per the scan On examination Lying in bed comfortably Hemodynamically stable with blood pressure elevated at 172/101 Chest-clear to auscultate bilateral Heart-S1, [id number] Abdomen-benign Extremities-right heel has ulcer with pussy drainage from the heel and adjoining swelling and inflammation His labs, imaging studies reviewed Has nonhealing right heel ulcer with possible osteomyelitis Will continue with current antibiotic and 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
[2023-07-19] MEDS: METOCLOPRAMIDE HCL 10 MG TABLET PO SCH ×2 (18:43→20:04)
[2023-07-19] MEDS: CARBOHYDRATES FOR HYPOGLYCEMIA PO PRN (18:43)
[2023-07-19] MEDS: INSULIN ASPART PER UNIT CHARGE SC SCH ×2 (19:25→21:35)
[2023-07-19] MEDS ORDERED: LOPERAMIDE HCL 2 MG CAP PO STA (19:31)
[2023-07-19] MEDS: SODIUM BICARBONATE 650 MG TAB PO SCH (20:04)
[2023-07-19] MEDS: PANTOprazole 40 MG TAB PO SCH (20:04)
[2023-07-19] MEDS: hydrOXYzine HCl 25 MG TAB PO SCH (20:04)
[2023-07-19] MEDS: ATORVASTATIN 40 MG TAB PO SCH (20:04)
[2023-07-19] MEDS ORDERED: ENOXAPARIN INJ 40 MG/0.4 ML SYR SQ SCH (21:00)
--- NOTE | 2023-07-19 21:43 | Orthopedic Consultation ---
Date of Consultation July 19, 2023 Assessment & Plan (1) Osteomyelitis: Patient seen, evaluated, and treated. Reviewed CT images and CT findings +OM. Awaiting MRI for further evaluation. Patient scheduled for wound debridement with partial calcaneus ostectomy 07/20/23 3pm. Reviewed plan of care with Patient. Thank you for allowing me to participate in the care of this Patient. (2) Cellulitis of right foot: (3) Anemia: History of Present Illness Attending Physician: Shayy Montilla MD History of Present Illness Patient is a 58-year-old male seen at bedside in room 358-1 for right heel wound. Patient has a past medical history significant for DM type I, CKD stage III, diabetic neuropathy, HTN, hypothyroidism, chronic hyperkalemia, chronic anemia, and other problems listed below. History is obtained from previous documentation and from the patient. Patient has prior admittance to [facility] 05/19 through 05/28 for polymicrobial right heel wound. Patient was discharged on IV ertapenem and oral amoxicillin. Completed antibiotic courses on 06/02. Patient reports worsening of his right heel wound over the past couple of weeks. Reports that he was evaluated in the [facility] today and they recommended he be evaluated at [facility] ED. Right foot CT suggest early osteomyelitis of the calcaneus. Patient was given IV meropenem and IV vancomycin. He also has tested positive for COVID-19 however reports being infected about 2 weeks ago and has no further symptoms. Allergies Allergy/AdvReac Type Severity Reaction Status Date / Time sodium chloride AdvReac Unknown CONTRAINDIC Verified 07/19/23 15:29 [From [place] Nasal] ATED. Home Medications Medication Instructions Recorded Confirmed Type alendronate 70 mg tablet 70 mg PO WK 03/05/22 07/19/23 History aspirin 81 mg tablet,delayed 81 mg PO QAM 03/05/22 07/19/23 History release ergocalciferol (vitamin D2) 50 mcg 50 mcg PO WK 03/05/22 07/19/23 History (2,000 unit) capsule fluoxetine 20 mg capsule 40 mg PO QAM 03/05/22 07/19/23 History hydroxyzine pamoate 50 mg capsule 50 mg PO HS 03/05/22 07/19/23 History insulin regular human 100 unit/mL 2 unit subcut BID 03/05/22 07/19/23 History injection solution (Novolin R Regular U-100 Insulin) levothyroxine 150 mcg tablet 150 mcg PO DAILYBB 03/05/22 07/19/23 History metoclopramide HCl 10 mg tablet 10 mg PO ACHS 03/05/22 07/19/23 History ondansetron 8 mg disintegrating 8 mg PO TID 03/05/22 07/19/23 History tablet pantoprazole 40 mg tablet,delayed 40 mg PO BID 03/05/22 07/19/23 History release patiromer calcium sorbitex 25.2 25.2 g PO QPM 03/05/22 07/19/23 History gram oral powder packet (Veltassa) tamsulosin 0.4 mg capsule 0.4 mg PO HS 03/05/22 07/19/23 History vitamin B complex with C-folic 1 tab PO DAILY 03/05/22 07/19/23 History acid 0.8 mg-zinc citrate 50 mg tablet (Dialyvite 800 with Zinc 50) cyanocobalamin (vitamin B-12) 100 100 mcg PO QAM #30 tabs 03/06/22 07/19/23 Rx mcg tablet (Vitamin B-12) folic acid 1 mg tablet 1 mg PO QAM #30 tabs 03/06/22 07/19/23 Rx epoetin sanchez 10,000 unit/mL 10,000 unit subcut WK 11/21/22 07/19/23 History injection solution (Epogen) ascorbic acid (vitamin C) 500 mg 500 mg PO QAM 12/14/22 07/19/23 History tablet (Vitamin C) atorvastatin 40 mg tablet 40 mg PO HS 12/14/22 07/19/23 History insulin regular human 100 unit/mL 1 sliding scale dose subcut 12/14/22 07/19/23 History injection solution (Novolin R USEASDIRECTD PRN Hyperglycemia Regular U-100 Insulin) sodium bicarbonate 650 mg tablet 650 mg PO BID 12/14/22 07/19/23 History lactobacillus combo no.11 15 1 cap PO DAILY #30 caps 12/22/22 07/19/23 Rx billion cell sprinkle capsule (Probiotic) ibuprofen 600 mg tablet 600 mg PO TID PRN Pain 05/19/23 07/19/23 History insulin glargine 100 unit/mL 14 unit subcut DAILY 05/19/23 07/19/23 History subcutaneous solution acetaminophen 500 mg tablet 1,000 mg PO TID 07/19/23 07/19/23 History (Tylenol Extra Strength) loperamide 2 mg capsule (Imodium 4 mg PO BID PRN LOOSE STOOLS 07/19/23 07/19/23 History A-D) Patient History Medical History HTN (hypertension) Osteomyelitis of ankle CKD (chronic kidney disease), stage III Diabetic ulcer of left ankle Diabetic neuropathy Chronic nausea Chronic hyperkalemia Chronic anemia Chronic hyponatremia CKD (chronic kidney disease) Psoriasis Orthostatic hypotension on chronic fludrocortisone Proteinuria NSTEMI (non-ST elevated myocardial infarction) Diabetes mellitus type 1 Non-STEMI (non-ST elevated myocardial infarction) Hypothyroidism Surgical History Status post right foot surgery Family History Other Heart disease Social History Smoking Status: Former smoker Tobacco Type: Cigarettes Cigarettes Per Day: 1 ppd; Second Hand Exposure: No; Do You Dip or Chew Tobacco: No; Hx Alcohol Use: No Hx Substance Use: No Preferred Language: Polish Communication Ability: Effective Visual Impairment: No Limitations 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: No Beliefs That Will Affect Care: None Current Living Situation: Other Current Living Situation Comment: [facility] Feels Safe at Home: Yes Assistive Devices: Wheelchair Review of Systems Review of Systems: All systems reviewed & are unremarkable except as noted in HPI & below Physical Exam Constitutional: + frail appearing, cooperative and comfo rtable Eyes: normal visual case by confrontation Neck: normal visual inspection Respiratory: normal respiratory effort Cardiovascular: Rate/Rhythm: regular rate and regular rhythm Musculoskeletal: Extremities: extremities normal to inspection Skin: + ulcer (Right full thickness heel wound , boggy eschar) Psychiatric: Orientation: alert and oriented x 3 Results & Data Vital Signs (Past 12 Hours) Vital Signs Temp Pulse Pulse Pulse Resp BP BP 07/19/23 18:25 36.6 C 83 18 168/86 H 07/19/23 17:50 77 16 07/19/23 17:40 76 18 07/19/23 17:30 75 17 07/19/23 17:20 76 17 07/19/23 17:10 75 18 07/19/23 17:00 74 17 07/19/23 17:00 170/101 H 07/19/23 16:50 76 17 07/19/23 16:40 75 17 07/19/23 16:30 77 15 07/19/23 16:20 77 15 07/19/23 16:10 78 19 07/19/23 16:00 77 20 07/19/23 16:00 185/117 H 07/19/23 15:50 77 17 07/19/23 15:40 79 16 07/19/23 15:30 77 18 07/19/23 15:20 76 16 07/19/23 15:10 76 16 07/19/23 15:00 175/112 H 07/19/23 15:00 75 16 07/19/23 14:54 75 14 07/19/23 14:54 174/109 H 07/19/23 14:53 75 22 174/109 H 07/19/23 14:50 76 15 07/19/23 14:48 76 17 07/19/23 13:30 73 16 07/19/23 13:27 73 20 152/98 H 07/19/23 13:20 72 17 07/19/23 13:19 152/98 H 07/19/23 13:19 73 15 07/19/23 13:18 73 14 07/19/23 11:05 36.8 C 81 20 102/75 Pulse Ox O2 Del Method 07/19/23 18:25 100 Room Air 07/19/23 17:50 99 07/19/23 17:40 99 07/19/23 17:30 99 07/19/23 17:20 100 07/19/23 17:10 99 07/19/23 17:00 99 07/19/23 17:00 07/19/23 16:50 100 07/19/23 16:40 100 07/19/23 16:30 100 07/19/23 16:20 100 07/19/23 16:10 100 07/19/23 16:00 100 07/19/23 16:00 07/19/23 15:50 99 07/19/23 15:40 100 07/19/23 15:30 99 07/19/23 15:20 99 07/19/23 15:10 100 07/19/23 15:00 07/19/23 15:00 98 07/19/23 14:54 99 07/19/23 14:54 07/19/23 14:53 99 Room Air 07/19/23 14:50 100 07/19/23 14:48 07/19/23 13:30 07/19/23 13:27 97 Room Air 07/19/23 13:20 07/19/23 13:19 07/19/23 13:19 07/19/23 13:18 07/19/23 11:05 99 Room Air Diagnostic Findings [place], [place] [phone] CT Scan Report Patient: MARIELA ROSE [id number] Admit Date: 07/19/23 MR#: [id number] Address1: [facility] A Acct ID:[id number] Address2: [facility] Date: 1965 [facility] Zip: [place] [address] Age: 58 Location: ED Sex: M Room/Bed: Att Phy: Diagnosis: FOOT PAIN Lisa Phy: [facility] Service Date: 07/19/23 Fam Phy: Interpreting Phy: Wong Lazaro MDAdmit Phy: Ordering Phy: Kendall Lantigua M.D. cc: ~ RIGHT FOOT CT WITHOUT CONTRAST CLINICAL HISTORY: Right heel wound. Possible osteomyelitis. COMPARISON STUDY: Right calcaneus radiographs and MRI of the right ankle May 19, 2023. TECHNIQUE: Axial images of the right foot were obtained without IV contrast. Sagittal and coronal reconstructions were viewed. Automated exposure control was utilized for the study. A dose lowering technique was utilized adhering to the principles of ALARA. FINDINGS: Right midfoot fusion is noted. The hardware is intact. No acute fracture within the right foot is present. Degenerative changes within the midfoot are present. No soft tissue gas is present. There are no fluid collections. Extensive vascular calcification is incidentally noted. Talar dome is intact. Right heel wound is noted infiltration of the subcutaneous fat. This suggests cellulitis. There is possible subtle erosion of the adjacent posterior aspect of the right calcaneus shown on axial image 58 of 301. No additional bony erosions are identified. IMPRESSION: 1. Right heel wound. Associated cellulitis. No fluid collections. No soft tissue gas. 2. Possible subtle erosion of the adjacent posterior aspect of the right calcaneus. The findings could reflect early acute osteomyelitis. MRI could be obtained for further evaluation. 3. Right midfoot fusion. Hardware intact. ACT 112: Negative or not required by law. Electronically signed by: Wong Lazaro M.D. 07/19/2023 2:13 PM (1) Osteomyelitis Laterality: right Osteomyelitis location: foot Osteomyelitis type: unspecified type Qualified Code(s): M86.9 - Osteomyelitis, unspecified (3) Anemia Anemia type: unspecified type Qualified Code(s): D64.9 - Anemia, unspecified
[2023-07-19] MEDS: ACETAMINOPHEN 500 MG TAB PO SCH (21:44)
[2023-07-19] MEDS: HEPARIN SOD 5,000 UNIT/0.5 ML VIAL SQ SCH (21:44)
[2023-07-19] MEDS: MEROPENEM 500 MG in SYRINGE 0 ML IV SCH (21:44)
[2023-07-19] MEDS: TAMSULOSIN HCL 0.4 MG CAP PO SCH (21:52)
[2023-07-20] MEDS: VANCOMYCIN HCL 1,000 MG in SODIUM CHLORIDE 0.9% 250 ML IV SCH (00:38)
[2023-07-20] MEDS ORDERED: Nursing to Pharmacy Communication SCH ×2 (00:45→18:30)
--- NOTE | 2023-07-20 02:59 | Magnetic Resonance Report ---
Exam(s): MRI RIGHT ANKLE Without Contrast EXAM: MR Right Lower Extremity Without Intravenous Contrast, Ankle CLINICAL HISTORY: Reason for exam: Evaluate for Osteomyelitis. TECHNIQUE: Multiplanar magnetic resonance images of the right ankle without intravenous contrast. COMPARISON: CT right ankle 07/19/23; MRI right ankle 05/19/23 FINDINGS: There is unchanged anterior subluxation of the talus with respect to the tibia. There is a moderate tibiotalar joint effusion without evidence of septic arthritis. There is soft tissue ulceration over the calcaneal tuberosity. There is T2 hyperintense, T1 hypointense marrow signal abnormality within the subjacent calcaneal tuberosity, associated with cortical thinning, concerning for acute osteomyelitis. No acute fractures are visualized. There is hardware within the midfoot and forefoot; associated susceptibility artifact limits evaluation. Muscles appear atrophic. Ankle tendons appear intact. IMPRESSION: Soft tissue ulcer over the calcaneal tuberosity with early acute osteomyelitis within the peripheral, posterior/plantar aspect of the tuberosity. Electronically signed by: Jorden Griffith M.D. 07/20/23 02:08 AM
[2023-07-20] MEDS: DEXTROSE 50% 50 ML SYRINGE IV PRN (05:57)
[2023-07-20] MEDS: MEROPENEM 500 MG in SYRINGE 0 ML IV SCH ×3 (06:01→21:43)
[2023-07-20] MEDS: ACETAMINOPHEN 500 MG TAB PO SCH ×3 (06:01→21:42)
[2023-07-20] MEDS: LEVOTHYROXINE SODIUM 150 MCG TABLET PO SCH (06:01)
[2023-07-20] MEDS: HEPARIN SOD 5,000 UNIT/0.5 ML VIAL SQ SCH ×2 (06:02→12:51)
[2023-07-20 06:13] LABS: Hematocrit (blood only) 30.5 % (42.0-52.0); Hemoglobin 9.4 g/dl (14.0-18.0); Mean Corpuscular Hemoglobin 28.3 pg (25.0-34.0); Mean Corpuscular Hgb Conc 30.8 g/dL (32.0-36.0); Mean Corpuscular Volume 91.9 fL (80.0-100.0); Mean Platelet Volume 8.5 fL (9.4-12.4); Platelet Count 377 K/uL (130-400); RDW Coefficient of Variation 15.8 % (11.5-14.5); RDW Standard Deviation 52.6 fL (36.4-46.3); Red Blood Count 3.32 M/uL (4.70-6.10); White Blood Count 7.14 K/ul (4.8-10.8)
[2023-07-20 06:32] LABS: BUN Creatinine Ratio 14.6 (10-20); Calcium 8.1 mg/dl (8.6-10.3); Creatinine Clr Calc Pharmacy 44.6 ml/min; Est GFR (African American) 45.2 ml/min; Potassium 4.6 mmol/L (3.5-5.1)
[2023-07-20] MEDS ORDERED: D5W AND NSS 1,000 ML IV SCH (06:45)
[2023-07-20] MEDS: INSULIN ASPART PER UNIT CHARGE SC SCH ×4 (06:50→20:48)
--- NOTE | 2023-07-20 07:11 | Communication Note ---
Date of Service: July 20, 2023. Placed on d5ns@75ml/hr as patient having hypoglycemic episodes. thanks
[2023-07-20 07:26] LABS: Estimated Average Glucose 148 mg/dl; Hemoglobin A1C 6.8 % (4.5-5.6)
[2023-07-20] MEDS: METOCLOPRAMIDE HCL 10 MG TABLET PO SCH ×4 (08:17→20:49)
[2023-07-20] MEDS: SODIUM BICARBONATE 650 MG TAB PO SCH ×2 (08:17→20:52)
[2023-07-20] MEDS: PANTOprazole 40 MG TAB PO SCH ×2 (08:17→20:50)
[2023-07-20] MEDS: FOLIC ACID 1 MG TAB PO SCH (08:22)
[2023-07-20] MEDS: ADVANCED PROBIOTIC 1250 MG CAPSULE PO SCH (08:23)
[2023-07-20] MEDS: ASPIRIN 81 MG ECTAB PO SCH (08:23)
[2023-07-20] MEDS: FLUoxetine HCL 20 MG CAP PO SCH (08:23)
[2023-07-20] MEDS: CYANOCOBALAMIN (B-12) 100 MCG TABLET PO SCH (08:23)
[2023-07-20] MEDS: CHOLECALCIFEROL 1,000 UNITS 25 MCG TAB PO SCH (08:23)
--- NOTE | 2023-07-20 09:12 | Pharmacy Report ---
Pharmacy PK ABX Note - Date of Service July 20, 2023 - Assessment and Plan Assessment 58 year old M receiving empiric vancomycin and meropenem for treatment of right foot osteomyelitis. Pertinent microbiologic data includes: negative MRSA Nasal Swab, right foot culture (07/19): pending. Prior right foot culture from 05/19 grew ESBL E.coli, Citrobacter freundii, and Enterococcus faecalis. Scheduled for right heel wound debridement today. Pertinent PMH includes T1DM, stage 3 CKD (baseline SCr appears to be low-mid 2 mg/dL, historically fluctuates), and history of right heel infection. Patient incarcerated. Day # 2 of antimicrobial therapy. Plan Vancomycin * Loading dose: 1500 mg IV x 1 * Maintenance dose: 1000 mg IV every 24 hours * Regimen is predicted to achieve target AUC/LINN of 400-600 mg/L.hr * Random level ordered for: 07/21/23 Meropenem * Target dose of 500 mg IV q6h for osteomyelitis, reduced to 500 mg IV q8h based on renal function Pharmacy will continue to follow and will adjust dose/frequency as necessary. Thank you. Pharmacy has transitioned to AUC monitoring for vancomycin. AUC/LINN is the preferred PK/PD target and is associated with decreased risk of nephrotoxicity compared to traditional trough targets.
[2023-07-20] MEDS: PATIROMER CALCIUM SORBITEX 8.4 GM PACK PO SCH (12:23)
--- NOTE | 2023-07-20 14:44 | Hospitalist Progress Note ---
Date of Service July 20, 2023 Assessment & Plan (1) Osteomyelitis: (2) Diabetic ulcer of right foot: (3) Diabetic infection of right foot: (4) Diabetes mellitus type 1: (5) HTN (hypertension): (6) COVID-19: (7) Chronic hyperkalemia: (8) CKD (chronic kidney disease), stage III: (9) Chronic anemia: (10) Hypothyroidism: (11) Depression: Plan 58-year-old male with PMHx significant for DM type I, CKD stage III, diabetic neuropathy, HTN, hypothyroidism, chronic hyperkalemia, chronic anemia admitted with osteomyelitis of right heel. Osteomyelitis Diabetic ulcer of right foot Diabetic infection of right foot Patient presenting from [facility] for evaluation of worsening right heel wound. Recently admitted to [facility] 05/19 through 05/28 for polymicrobial right heel wound. Patient was discharged on IV ertapenem and oral amoxicillin. Completed antibiotic courses on 06/02. Heel worsening since then, presented for reevaluation Hemodynamically stable on admission, not septic CT right foot suggesting signs of early osteomyelitis of the right calcaneus MRI of the right ankle confirming osteomyelitis Wound Cx from 05/19 growing staph and GBS currently Podiatry consult with Dr. Stout- appreciate recs -s/p right heel wound debridement and calcaneal ostectomy with application wound vac on 07/20 -deep wound Cx obtained-follow Currently on Vancomycin and Meropenem Consider ID consult, narrow based on results Diabetes mellitus, Type 1 Hgb A1c 6.8 06/2023 Noted to be hypoglycemic on labs, glucose 60, asymptomatic Basal home insulin previously held, re-started after surgery ISS Continue to monitor glucose levels HTN (hypertension) Hypertensive with BP 185/117 on admission Hydralazine 10 mg IV x 1 Currently not on antihypertensives, history of orthostatic hypotension previously on midodrine Monitor BPs, provide additional antihypertensive support if needed COVID-19 Patient tested positive for COVID-19 reports infection 2 weeks [employer] with mild symptoms currently asymptomatic Chronic hyperkalemia K+ 5.0 on admission Continue Veltassa CKD (chronic kidney disease), stage III: Baseline creatinine low - mid 2s Creatinine at baseline on admission Avoid nephrotoxic meds Continue renal meds-dialyvyte, sodium bicarb Continue to monitor Chronic anemia In the setting of CKD Recent baseline ~7, currently 10.8 on admission Receives Procrit injections weekly Hypothyroidism Chronic, stable Continue levothyroxine Depression Chronic, stable Continue home meds DVT PROPHYLAXIS: SQ heparin currently on hold in will-op setting Diet: DMII CODE STATUS: Full code Dispo: d/c back to [facility] once abx treatment finalized Admission and Anticipated Discharge Date Admission Date: July 19, 2023 Subjective Pt seen in the AM before his surgery. Was sleeping, denied acute concerns once awakened. Stated that there was no pain at that time. Denied fevers, chills, night sweats Review of Systems Review of Systems: All systems reviewed & are unremarkable except as noted in Subjective Physical Exam Physical Exam: General: Alert, oriented. No acute distress Skin: No noted rashes or bruises Psych: Appropriate mood and affect Neuro: No gross deficits while laying in bed, able to move all extremities HEENT: NC/AT CV: RRR Resp: Breath sounds clear bilaterally, no increased effort of breathing. Abdomen: Soft, nontender, nondistended. Extremities: right foot bandaged and in boot at time of exam Results & Data Results & Data Vital Signs (Past 12 Hours) Vital Signs Temp Pulse Resp BP Pulse Ox O2 Del Method 07/20/23 07:01 36.8 C 80 20 118/68 97 Room Air (1) Osteomyelitis Laterality: left Osteomyelitis location: ankle Osteomyelitis type: unspecified type Qualified Code(s): M86.9 - Osteomyelitis, unspecified (2) Diabetic ulcer of right foot Diabetes mellitus type: other specified (including BRITT) Diabetic foot ulcer location: heel Non-pressure ulcer stage: unspecified non-pressure ulcer stage Qualified Code(s): E13.621 - Other specified diabetes mellitus with foot ulcer; L97.419 - Non-pressure chronic ulcer of right heel and midfoot with unspecified severity
--- NOTE | 2023-07-20 15:40 | Anesthesiology Consultation ---
Date of Service July 20, 2023 Assessment & Plan (1) Encounter for pre-operative examination: Chart Review Chart Review: Acceptable Risk for Surgery History Surgery Operation Date: 07/20/23 07:00 Proposed Procedures p Right Heel Wound Debridement Calcaneal Ostetectomy - Celestino Stout, ROMANM, MS Height/Weight Height: 6 ft Weight: 73.4 kg Allergies Allergy/AdvReac Type Severity Reaction Status Date / Time sodium chloride AdvReac Unknown CONTRAINDIC Verified 07/19/23 15:29 [From [place] Nasal] ATED. Medications Home Medications Medication Instructions Recorded Confirmed Last Taken alendronate 70 mg tablet 70 mg PO WK 03/05/22 07/19/23 07/18/23 aspirin 81 mg tablet,delayed 81 mg PO QAM 03/05/22 07/19/23 07/19/23 release ergocalciferol (vitamin D2) 50 mcg 50 mcg PO WK 03/05/22 07/19/23 07/13/23 (2,000 unit) capsule fluoxetine 20 mg capsule 40 mg PO QAM 03/05/22 07/19/23 07/19/23 hydroxyzine pamoate 50 mg capsule 50 mg PO HS 03/05/22 07/19/23 07/18/23 insulin regular human 100 unit/mL 2 unit subcut BID 03/05/22 07/19/23 07/18/23 injection solution (Novolin R Regular U-100 Insulin) levothyroxine 150 mcg tablet 150 mcg PO DAILYBB 03/05/22 07/19/23 07/19/23 metoclopramide HCl 10 mg tablet 10 mg PO ACHS 03/05/22 07/19/23 07/19/23 06:30 ondansetron 8 mg disintegrating 8 mg PO TID 03/05/22 07/19/23 07/19/23 06:30 tablet pantoprazole 40 mg tablet,delayed 40 mg PO BID 03/05/22 07/19/23 07/19/23 06:30 release patiromer calcium sorbitex 25.2 25.2 g PO QPM 03/05/22 07/19/23 07/18/23 gram oral powder packet (Veltassa) tamsulosin 0.4 mg capsule 0.4 mg PO HS 03/05/22 07/19/23 07/18/23 vitamin B complex with C-folic 1 tab PO DAILY 03/05/22 07/19/23 07/19/23 acid 0.8 mg-zinc citrate 50 mg tablet (Dialyvite 800 with Zinc 50) cyanocobalamin (vitamin B-12) 100 100 mcg PO QAM #30 tabs 03/06/22 07/19/23 07/19/23 mcg tablet (Vitamin B-12) folic acid 1 mg tablet 1 mg PO QAM #30 tabs 03/06/22 07/19/23 07/19/23 epoetin sanchez 10,000 unit/mL 10,000 unit subcut WK 11/21/22 07/19/23 07/14/23 injection solution (Epogen) ascorbic acid (vitamin C) 500 mg 500 mg PO QAM 12/14/22 07/19/23 07/19/23 tablet (Vitamin C) atorvastatin 40 mg tablet 40 mg PO HS 12/14/22 07/19/23 07/18/23 insulin regular human 100 unit/mL 1 sliding scale dose subcut 12/14/22 07/19/23 05/19/23 injection solution (Novolin R USEASDIRECTD PRN Hyperglycemia Regular U-100 Insulin) sodium bicarbonate 650 mg tablet 650 mg PO BID 12/14/22 07/19/23 07/19/23 06:30 lactobacillus combo no.11 15 1 cap PO DAILY #30 caps 12/22/22 07/19/23 07/19/23 billion cell sprinkle capsule (Probiotic) ibuprofen 600 mg tablet 600 mg PO TID PRN Pain 05/19/23 07/19/23 07/19/23 06:36 insulin glargine 100 unit/mL 14 unit subcut DAILY 05/19/23 07/19/23 07/19/23 06:30 subcutaneous solution acetaminophen 500 mg tablet 1,000 mg PO TID 07/19/23 07/19/23 07/19/23 06:30 (Tylenol Extra Strength) loperamide 2 mg capsule (Imodium 4 mg PO BID PRN LOOSE STOOLS 07/19/23 07/19/23 07/18/23 10:53 A-D) Active Medications Generic Name Dose Route Start Last Admin Trade Name Freq PRN Reason Stop Dose Admin Acetaminophen 1,000 mg 07/19/23 22:00 07/20/23 12:51 Acetaminophen 500 Mg Tab PO 08/18/23 21:59 Not Given Q8 MARY Aspirin 81 mg 07/20/23 09:00 07/20/23 08:23 Aspirin 81 Mg Ectab PO 08/19/23 08:59 81 mg QAM MARY Administration Atorvastatin Calcium 40 mg 07/19/23 21:00 07/19/23 20:04 Atorvastatin 40 Mg Tab PO 08/18/23 20:59 40 mg HS MARY Administration Cyanocobalamin 100 mcg 07/20/23 09:00 07/20/23 08:23 Cyanocobalamin (B-12) 100 Mcg Tablet PO 08/19/23 08:59 100 mcg QAM MARY Administration Dextrose 25 - 50 ml 07/19/23 16:37 07/20/23 05:57 Dextrose 50% 50 Ml Syringe IV 08/18/23 16:36 50 ml UD PRN Administration Hypoglycemia Protocol Protocol Fluoxetine HCl 40 mg 07/20/23 09:00 07/20/23 08:23 Fluoxetine Hcl 20 Mg Cap PO 08/19/23 08:59 40 mg QAM MARY Administration Folic Acid 1 mg 07/20/23 09:00 07/20/23 08:22 Folic Acid 1 Mg Tab PO 08/19/23 08:59 1 mg QAM MARY Administration Heparin Sodium (Porcine) 5,000 units 07/19/23 22:00 07/20/23 12:51 Heparin Sod 5,000 Unit/0.5 Ml Vial SQ 08/18/23 21:59 Not Given Q8 MARY Hydroxyzine HCl 50 mg 07/19/23 21:00 07/19/23 20:04 Hydroxyzine Hcl 25 Mg Tab PO 08/18/23 20:59 50 mg HS MARY Administration Meropenem 500 mg/ Syringe 10 mls @ 2 mls/min 07/19/23 22:00 07/20/23 15:11 IV 07/26/23 21:59 2 mls/min Q8H MARY Administration Protocol Vancomycin HCl 1,000 mg/ 270 mls @ 200 mls/hr 07/20/23 00:00 07/20/23 03:10 Sodium Chloride IV 08/31/23 00:00 Infused Q24H MARY Infusion Dextrose/Sodium Chloride 1,000 mls @ 75 mls/hr 07/20/23 06:45 07/20/23 08:17 D5w And Nss IV 08/19/23 06:44 75 mls/hr .[id number] MARY Administration Insulin Aspart 0 units 07/20/23 06:00 07/20/23 11:59 Insulin Aspart Per Unit Charge SC 08/19/23 05:59 Not Given Q6 MARY Lactobacillus Acidophilus 2 cap 07/20/23 09:00 07/20/23 08:23 Advanced Probiotic 1250 Mg Capsule PO 08/19/23 08:59 2 cap DAILY MARY Administration Levothyroxine Sodium 150 mcg 07/20/23 06:30 07/20/23 06:01 Levothyroxine Sodium 150 Mcg Tablet PO 08/19/23 06:29 150 mcg DAILYBB MARY Administration Metoclopramide HCl 10 mg 07/19/23 16:37 07/20/23 12:23 Metoclopramide Hcl 10 Mg Tablet PO 08/18/23 16:36 Not Given ACHS MARY Miscellaneous 15 - 30 gm 07/19/23 16:37 07/19/23 18:43 Carbohydrates For Hypoglycemia PO 08/18/23 16:36 15 gm UD PRN Administration Hypoglycemia Protocol Pantoprazole Sodium 40 mg 07/19/23 21:00 07/20/23 08:17 Pantoprazole 40 Mg Tab PO 08/18/23 20:59 40 mg BID MARY Administration Patiromer 25.2 gm 07/20/23 13:00 07/20/23 12:23 Patiromer Calcium Sorbitex 8.4 Gm Pack PO 08/19/23 12:59 Not Given Q24H MARY Sodium Bicarbonate 650 mg 07/19/23 21:00 07/20/23 08:17 Sodium Bicarbonate 650 Mg Tab PO 08/18/23 20:59 650 mg BID MARY Administration Tamsulosin HCl 0.4 mg 07/19/23 21:00 07/19/23 21:52 Tamsulosin Hcl 0.4 Mg Cap PO 08/18/23 20:59 0.4 mg HS MARY Administration Vitamin D 2,000 units 07/20/23 09:00 07/20/23 08:23 Cholecalciferol 1,000 Units 25 Mcg Tab PO 08/19/23 08:59 2,000 units Th MARY Administration Past Medical History Medical History HTN (hypertension) Osteomyelitis of ankle CKD (chronic kidney disease), stage III Diabetic ulcer of left ankle Diabetic neuropathy Chronic nausea Chronic hyperkalemia Chronic anemia Chronic hyponatremia CKD (chronic kidney disease) Psoriasis Orthostatic hypotension on chronic fludrocortisone Proteinuria NSTEMI (non-ST elevated myocardial infarction) Diabetes mellitus type 1 Non-STEMI (non-ST elevated myocardial infarction) Hypothyroidism Past Family History Family History Other Heart disease Past Surgical History Surgical History Status post right foot surgery Social History Smoking Status: Former smoker tobacco type: cigarettes Smoking cigarettes per day: 1 ppd Do You Dip or Chew Tobacco: No Hx Alcohol Use: No Hx Substance Use: No substance use type: does not use Physical Exam Vital Signs Last Vital Signs Temp 36.8 C 07/20/23 07:01 Pulse 80 07/20/23 07:01 Resp 20 07/20/23 07:01 BP 118/68 07/20/23 07:01 Pulse Ox 97 07/20/23 07:01 O2 Del Method Room Air 07/20/23 07:01 Testing Laboratory Results 07/20/23 05:35 07/20/23 05:35 Hemoglobin A1c 6.8 % (4.5-5.6) H 07/20/23 05:35 07/19/23 13:08 Gram Stain - Final Foot,Right Aerobic and Anaerobic Culture - Preliminary Staphylococcus species Group B Beta Strep 07/20/23 07/20/23 07/20/23 11:44 06:16 05:50 POC Glucose 97 138 H 45 L* 07/20/23 05:49 POC Glucose 43 L* BSG at 97 at 11:44
[2023-07-20] MEDS ORDERED: fentaNYL citrate PF 100 MCG/2 ML VIAL ONE (15:50)
[2023-07-20] MEDS ORDERED: LIDOCAINE 2% 2 ML VIAL/AMP(20MG/ML) INFIL ONE (15:50)
[2023-07-20] MEDS ORDERED: MIDAZOLAM HCL 1 MG/ML 2ML VIAL ONE (15:50)
[2023-07-20] MEDS ORDERED: ONDANSETRON INJ 2 MG/ML 2 ML VIAL ONE (15:50)
[2023-07-20] MEDS ORDERED: PROPOFOL IV EMULSION 10 MG/ML 20 ML VIAL IV ONE ×2 (15:50→16:45)
--- NOTE | 2023-07-20 16:06 | History & Physical Bridge Note ---
Date of Service July 20, 2023 History & Physical Bridge Note I have examined the patient, reviewed the History & Physical and in the interval since the performance of the History & Physical I have noted the following changes of clinical significance: no changes noted
[2023-07-20] MEDS ORDERED: ATROPINE SULFATE 0.1 MG/ML 10ML SYR IV PRN (16:18)
[2023-07-20] MEDS ORDERED: LABETALOL HCL IV 5 MG/ML 20ML IV PRN (16:18)
[2023-07-20] MEDS ORDERED: fentaNYL citrate PF 100 MCG/2 ML VIAL IV PRN (16:18)
[2023-07-20] MEDS ORDERED: ONDANSETRON INJ 2 MG/ML 2 ML VIAL IV PRN (16:18)
[2023-07-20] MEDS ORDERED: LIDOCAINE 1%/EPINEPHRINE 1:100,000 20 ML VIAL ONE (16:28)
[2023-07-20] MEDS ORDERED: ePHEDrine sulfate 50 MG/5 ML SYR ONE (16:38)
--- NOTE | 2023-07-20 17:11 | Post Operative Brief Note ---
Immediate Post Op Note v1 Date of Surgery July 20, 2023 Pre & Post Diagnosis Operation Date: 07/20/23 07:00 <No data on this case meets the specified criteria> I identified the patient and participated in the time-out.: Yes Procedure Operation Date: 07/20/23 07:00 <No data on this case meets the specified criteria> Surgeon Celestino Stout, JAYLA, MS Cushion Spring Assembler none Estimated Blood Loss 0 Findings Consistent with Post-Op Diagnosis consistent with pre operative diagnosis Specimens deep culture Right ankle Calcaneus Right - microbiology / pathology
--- NOTE | 2023-07-20 18:01 | Anesthesiology Progress Note ---
Date of Service July 20, 2023 Anesthesia Post Procedure Vital Signs Vital Signs: Temp Pulse Pulse Resp BP BP Pulse Ox 07/20/23 17:50 93 H 17 112/65 99 07/20/23 17:40 36.2 C L 95 H 16 102/56 L 98 07/20/23 17:30 96 H 16 111/59 L 98 07/20/23 17:20 98 H 13 115/63 100 07/20/23 17:10 36.2 C L 100 H 16 139/68 100 07/20/23 15:58 36.4 C L 81 18 173/97 H 97 07/20/23 15:44 36.7 C 81 18 173/91 H 99 07/20/23 07:01 36.8 C 80 20 118/68 97 07/19/23 22:00 36.6 C 82 18 148/79 H 99 07/19/23 18:25 36.6 C 83 18 168/86 H 100 O2 Del Method O2 Flow Rate 07/20/23 17:50 Room Air 07/20/23 17:40 Room Air 07/20/23 17:30 Nasal Cannula 2 07/20/23 17:20 Nasal Cannula 2 07/20/23 17:10 Nasal Cannula 2 07/20/23 15:58 Room Air 07/20/23 15:44 Room Air 07/20/23 07:01 Room Air 07/19/23 22:00 Room Air 07/19/23 18:25 Room Air Transfer of Care Handoff Completed per policy Notes Mental Status: alert / awake / arousable Patient Amnestic to Procedure: Yes Nausea / Vomiting: adequately controlled Pain: adequately controlled Airway Patency, RR, SpO2: stable & adequate BP & HR: stable & adequate Hydration State: stable & adequate Anesthetic Complications: no major complications apparent
[2023-07-20] MEDS: ATORVASTATIN 40 MG TAB PO SCH (20:51)
[2023-07-20] MEDS: TAMSULOSIN HCL 0.4 MG CAP PO SCH (20:51)
--- NOTE | 2023-07-20 20:56 | Operative Report ---
Post Operative Report Pre & Post Diagnosis Operation Date: 07/20/23 07:00 Pre-Op Diagnosis: (1) Osteomyelitis (2) Diabetic ulcer of right foot (3) Diabetic infection of right foot Post-Op Diagnosis: (1) Osteomyelitis (2) Diabetic ulcer of right foot (3) Diabetic infection of right foot I identified the patient and participated in the time-out.: Yes Procedure Operation Date: 07/20/23 07:00 Actual Procedures p Right Heel Wound Debridement, Calcaneal Ostetectomy, application wound vac(Right) - Celestino Stout DPM, MS Surgeon Celestino Stout DPM, MS Lumber Scaler none Estimated Blood Loss 0 Findings Consistent with Post-Op Diagnosis Consistent with pre operative diagnosis Specimens 1.0 Deep culture right ankle - microbiology 2.) Bone calcaneus right - microbiology / pathology Description of Procedure History of Present Illness: Patient is a type I diabetic, 58 year old male with history of right heel wound and recent signs of Osteomyelitis of Right calcaneus. MRI positive for osteomyelitis. Patient is at severe risk for loss of life or limb. All questions answered. All potential risks, benefits, complications, alternatives, rehab, potential for incomplete relief of symptoms, need for further surgery, DVT, PE, , persistent pain, swelling, scarring, weakness, neurovascular, wound complications and potential for amputations were discussed with patient. Unwanted outcomes such as, but not limited to were reviewed including under correction, overcorrection, return of deformity, infection. All questions were answered. Patient has decided to proceed with procedure as indicated. Preoperative diagnosis: 1.) Right calcaneus osteomyelitis 2.) Right heel diabetic ulcer Postoperative diagnosis: Same Name of operation: 1.) Right heel wound debridement, excision of wound 2.) Partial excision, ostectomy of calcaneus Right 3.) Application of negative pressure wound vac therapy Surgeon: Dr. Stout Lumber Scaler: None Anesthesia: Monitored anesthesia care Estimated blood loss: Minimal Procedure in detail: Under mild sedation the patient was brought in the operating room placed on the operating table in prone position. A Pneumatic calf tourniquet was then placed about the patient's calf. The right lower limb was then prepped, scrubbed, and draped, in the usual aseptic manner. An Esmarch bandage utilized examining the patient's right ankle and the pneumatic calf tourniquet was inflated. Attention was directed to the posterior aspect of the patient's right lower extremity. The posterior heel wound measured 8 cm x 6 cm x 0.1 cm. Utilizing a sharp, sterile, 15 blade, nonviable tissue was excised sharply from the right retrocalcaneal heel to level of bone. Deep culture swab was then taken. At this time an oscillating bone saw was utilized to resect the posterior tube rosity of the calcaneus. Once the ostectomy was completed the portion of the excised calcaneus was removed and place on the back table labeled and sent to microbiology and pathology. Next 1 Liter of lactate ringer was utilized to irrigate under low flow. Following irrigation negative pressure therapy was applied to the right heel wound. KCI wound vac was placed with black foam and set to 125mmHg continuous. Patient tolerated procedure and anesthesia well. The Patient was transferred to recovery room with vital signs stable and vascular status intact to the right foot. Following a period of postoperative monitoring the patient will be re admitted to the floor resuming all pre operative orders. I attest to the content of the Intraoperative Record and any orders documented therein. Any exceptions are noted below.
[2023-07-20] MEDS: hydrOXYzine HCl 25 MG TAB PO SCH (21:42)
[2023-07-21] MEDS: VANCOMYCIN HCL 1,000 MG in SODIUM CHLORIDE 0.9% 250 ML IV SCH ×2 (00:13→23:52)
[2023-07-21] MEDS: ACETAMINOPHEN 500 MG TAB PO SCH ×3 (05:46→21:39)
[2023-07-21] MEDS: LEVOTHYROXINE SODIUM 150 MCG TABLET PO SCH (05:46)
[2023-07-21] MEDS: MEROPENEM 500 MG in SYRINGE 0 ML IV SCH ×3 (05:46→21:41)
[2023-07-21] MEDS: PANTOprazole 40 MG TAB PO SCH ×2 (08:00→21:35)
[2023-07-21] MEDS: ADVANCED PROBIOTIC 1250 MG CAPSULE PO SCH (08:00)
[2023-07-21] MEDS: CYANOCOBALAMIN (B-12) 100 MCG TABLET PO SCH (08:01)
[2023-07-21] MEDS: FLUoxetine HCL 20 MG CAP PO SCH (08:01)
[2023-07-21] MEDS: FOLIC ACID 1 MG TAB PO SCH (08:01)
[2023-07-21] MEDS: METOCLOPRAMIDE HCL 10 MG TABLET PO SCH ×4 (08:01→21:34)
[2023-07-21] MEDS: ASPIRIN 81 MG ECTAB PO SCH (08:01)
[2023-07-21] MEDS: SODIUM BICARBONATE 650 MG TAB PO SCH ×2 (08:01→21:35)
[2023-07-21] MEDS: LANTUS PER UNIT CHARGE SQ SCH (08:09)
[2023-07-21] MEDS: INSULIN ASPART PER UNIT CHARGE SC SCH ×4 (08:09→21:41)
[2023-07-21] MEDS: EPOETIN ALFA 10,000 UNITS/ML VIAL SQ SCH (09:42)
--- NOTE | 2023-07-21 12:07 | Pharmacy Report ---
Pharmacy PK ABX Note - Date of Service July 21, 2023 - Assessment and Plan Assessment 58 year old M receiving empiric vancomycin and meropenem for treatment of right foot osteomyelitis. Pertinent microbiologic data includes: negative MRSA Nasal Swab, right foot culture (07/19): growing MRSA and Group B Strep. Awaiting ID consult, discussed DC meropenem with Dr Bowen, she will decide by end of the day. Prior right foot culture from 05/19 grew ESBL E.coli, Citrobacter freundii, and Enterococcus faecalis. S/p right heel wound debridement 07/20/23. Pertinent PMH includes T1DM, stage 3 CKD (baseline SCr appears to be low-mid 2 mg/dL, historically fluctuates), and history of right heel infection. Patient incarcerated. Day # 3 of antimicrobial therapy. Plan Vancomycin * Current regimen: 1000 mg IV every 24 hours * Random level obtained 07/21/23 resulted as 17.7 mcg/mL. This is predicted to achieve target AUC/LINN of 400-600 mg/L.hr * Predicted AUC at steady state: 521 mg/L.hr * Continue 1000 mg IV every 24 hours * Will repeat level in the next 48-72 hours if therapy is continued and/or change in patient clinical status Meropenem * Target dose of 500 mg IV q6h for osteomyelitis, reduced to 500 mg IV q8h based on renal function Pharmacy will continue to follow and will adjust dose/frequency as necessary. Thank you. Pharmacy has transitioned to AUC monitoring for vancomycin. AUC/LINN is the preferred PK/PD target and is associated with decreased risk of nephrotoxicity compared to traditional trough targets.
[2023-07-21] MEDS: PATIROMER CALCIUM SORBITEX 8.4 GM PACK PO SCH (12:23)
[2023-07-21 12:33] LABS: Basophils % (auto) 1.4 %; Eosinophils # (auto) 0.17 K/uL (0.00-0.50); Eosinophils % (auto) 2.3 %; Hematocrit (blood only) 30.9 % (42.0-52.0); Hemoglobin 9.4 g/dl (14.0-18.0); Immature Granulocytes # (auto) 0.03 K/uL (0.01-0.20); Immature Granulocytes % (auto) 0.4 %; Lymphocytes # (auto) 1.56 K/uL (1.20-3.40); Lymphocytes % (auto) 21.1 %; Mean Corpuscular Hemoglobin 28.2 pg (25.0-34.0); Mean Corpuscular Hgb Conc 30.4 g/dL (32.0-36.0); Mean Corpuscular Volume 92.8 fL (80.0-100.0); Mean Platelet Volume 8.9 fL (9.4-12.4); Monocytes # (auto) 0.81 K/uL (0.11-0.59); Monocytes % (auto) 10.9 %; Neutrophils # (auto) 4.73 K/uL (1.40-6.50); Neutrophils % (auto) 63.9 %; Platelet Count 337 K/uL (130-400); RDW Coefficient of Variation 16.2 % (11.5-14.5); RDW Standard Deviation 54.6 fL (36.4-46.3); Red Blood Count 3.33 M/uL (4.70-6.10)
[2023-07-21 12:49] LABS: Albumin Globulin Ratio 0.9 (0.9-2); Albumin Level 2.9 gm/dl (3.4-5.0); BUN Creatinine Ratio 12.6 (10-20); Bilirubin,Total 0.2 mg/dl (0.2-1.0); Calcium 8.4 mg/dl (8.6-10.3); Creatinine Clr Calc Pharmacy 41.7 ml/min; Est GFR (African American) 41.6 ml/min; Est GFR (Non-African American) 35.9 ml/min; Globulin 3.4 gm/dl (2.5-4.0); Magnesium 1.9 mg/dl (1.7-2.4); Potassium 4.8 mmol/L (3.5-5.1); Total Protein 6.3 gm/dl (6.0-8.3)
--- NOTE | 2023-07-21 14:25 | Hospitalist Progress Note ---
Date of Service July 21, 2023 Assessment & Plan (1) Osteomyelitis: (2) Diabetic ulcer of right foot: (3) Diabetic infection of right foot: (4) Diabetes mellitus type 1: (5) HTN (hypertension): (6) COVID-19: (7) Chronic hyperkalemia: (8) CKD (chronic kidney disease), stage III: (9) Chronic anemia: (10) Hypothyroidism: (11) Depression: Plan 58-year-old male with PMHx significant for DM type I, CKD stage III, diabetic neuropathy, HTN, hypothyroidism, chronic hyperkalemia, chronic anemia admitted with osteomyelitis of right heel. Osteomyelitis Diabetic ulcer of right foot Diabetic infection of right foot Patient presenting from [facility] for evaluation of worsening right heel wound. Recently admitted to [facility] 05/19 through 05/28 for polymicrobial right heel wound. Patient was discharged on IV ertapenem and oral amoxicillin. Completed antibiotic courses on 06/02. Heel worsening since then, presented for reevaluation Hemodynamically stable on admission, not septic CT right foot suggesting signs of early osteomyelitis of the right calcaneus MRI of the right ankle confirming osteomyelitis Wound Cx from 05/19 growing MRSA and GBS currently, MRSA sensitive to Vancomycin Podiatry consult with Dr. Stout- appreciate recs -s/p right heel wound debridement and calcaneal ostectomy with application wound vac on 07/20 -deep wound Cx obtained-currently growing staph -bone pathology sample- currently growing staph Currently on Vancomycin and Meropenem, meropenem discontinued as Vancomycin covers both MRSA and GBS ID consult for further recs- pending Per nurse navigator and CM, [facility]ci will only take IV abx after discharge via a PICC line (not USG IV), consider PICC line placement closer to discharge Diabetes mellitus, Type 1 Hgb A1c 6.8 06/2023 Noted to be hypoglycemic on labs, glucose 60, asymptomatic Basal home insulin previously held, re-started after surgery ISS Continue to monitor glucose levels HTN (hypertension) Hypertensive with BP 185/117 on admission Hydralazine 10 mg IV x 1 Currently not on antihypertensives, history of orthostatic hypotension previously on midodrine Monitor BPs, provide additional antihypertensive support if needed COVID-19 Patient tested positive for COVID-19 reports infection 2 weeks [employer] with mild symptoms currently asymptomatic Chronic hyperkalemia K+ 5.0 on admission Continue Veltassa CKD (chronic kidney disease), stage III: Baseline creatinine low - mid 2s Creatinine at baseline on admission Avoid nephrotoxic meds Continue renal meds-dialyvyte, sodium bicarb Continue to monitor Chronic anemia In the setting of CKD Recent baseline ~7, currently 10.8 on admission Receives Procrit injections weekly Hypothyroidism Chronic, stable Continue levothyroxine Depression Chronic, stable Continue home meds DVT PROPHYLAXIS: SQ heparin currently on hold in will-op setting Diet: DMII CODE STATUS: Full code Dispo: d/c back to [facility] once abx treatment finalized Admission and Anticipated Discharge Date Admission Date: July 19, 2023 Subjective Pt seen with guards at bedside. Denied acute concerns. Per nursing, there was an issue with the wound vac placed during his recent surgery. Review of Systems Review of Systems: All systems reviewed & are unremarkable except as noted in Subjective Physical Exam Physical Exam: General: Alert, oriented. No acute distress Skin: No noted rashes or bruises Psych: Appropriate mood and affect Neuro: No gross deficits while laying in bed, able to move all extremities HEENT: NC/AT CV: RRR Resp: Breath sounds clear bilaterally, no increased effort of breathing. Abdomen: Soft, nontender, nondistended. Extremities: right foot bandaged at time of exam Results & Data Results & Data Vital Signs (Past 12 Hours) Vital Signs Temp Pulse Resp BP Pulse Ox O2 Del Method 07/21/23 07:20 Room Air 07/21/23 06:54 37.2 C 94 H 18 152/78 H 100 Room Air (1) Osteomyelitis Laterality: left Osteomyelitis location: ankle Osteomyelitis type: unspecified type Qualified Code(s): M86.9 - Osteomyelitis, unspecified (2) Diabetic ulcer of right foot Diabetes mellitus type: other specified (including BRITT) Diabetic foot ulcer location: heel Non-pressure ulcer stage: unspecified non-pressure ulcer stage Qualified Code(s): E13.621 - Other specified diabetes mellitus with foot ulcer; L97.419 - Non-pressure chronic ulcer of right heel and midfoot with unspecified severity
--- NOTE | 2023-07-21 20:57 | Orthopedic Progress Note ---
Date of Service July 21, 2023 Assessment & Plan (1) Osteomyelitis: Plan: Patient seen and evaluated in [facility]- resting comfortably with no complaints. Patient is status post day #1 partial ostectomy of calcaneus. Clear margins and source control obtained. Wound vac has been removed due to clogged line. Will continue to follow. (2) Cellulitis of right foot: (3) Anemia: Admission and Anticipated Discharge Date Admission Date: July 19, 2023 Subjective Patient seen at bedside resting comfortably in [facility]-. Patient is status post day #1 right calcaneus partial ostectomy. He states no complaints. Physical Exam Constitutional: + frail appearing, cooperative and comfo rtable Eyes: normal visual case by confrontation Neck: normal visual inspection Respiratory: normal respiratory effort Cardiovascular: Rate/Rhythm: regular rate and regular rhythm Musculoskeletal: Extremities: extremities normal to inspection Skin: + ulcer (Right full thickness heel wound with exposed bone. Healthy bleeding tissue.) Psychiatric: Orientation: alert and oriented x 3 Results & Data Vital Signs (Past 12 Hours) Vital Signs Temp Pulse Resp BP Pulse Ox O2 Del Method 07/21/23 20:31 36.7 C 81 18 154/87 H 99 Room Air 07/21/23 15:49 36.8 C 83 15 162/87 H 99 Room Air (1) Osteomyelitis Laterality: right Osteomyelitis location: foot Osteomyelitis type: unspecified type Qualified Code(s): M86.9 - Osteomyelitis, unspecified (3) Anemia Anemia type: unspecified type Qualified Code(s): D64.9 - Anemia, unspecified
[2023-07-21] MEDS: ATORVASTATIN 40 MG TAB PO SCH (21:34)
[2023-07-21] MEDS: TAMSULOSIN HCL 0.4 MG CAP PO SCH (21:35)
[2023-07-21] MEDS: hydrOXYzine HCl 25 MG TAB PO SCH (21:41)
[2023-07-22] MEDS: ACETAMINOPHEN 500 MG TAB PO SCH ×3 (06:19→22:03)
[2023-07-22] MEDS: LEVOTHYROXINE SODIUM 150 MCG TABLET PO SCH (06:20)
[2023-07-22 08:52] LABS: Basophils % (auto) 1.2 %; Eosinophils # (auto) 0.43 K/uL (0.00-0.50); Eosinophils % (auto) 5.3 %; Hematocrit (blood only) 32.1 % (42.0-52.0); Immature Granulocytes # (auto) 0.02 K/uL (0.01-0.20); Immature Granulocytes % (auto) 0.2 %; Lymphocytes # (auto) 1.87 K/uL (1.20-3.40); Lymphocytes % (auto) 23.3 %; Mean Corpuscular Hemoglobin 28.5 pg (25.0-34.0); Mean Corpuscular Hgb Conc 31.2 g/dL (32.0-36.0); Mean Corpuscular Volume 91.5 fL (80.0-100.0); Mean Platelet Volume 8.5 fL (9.4-12.4); Monocytes # (auto) 0.84 K/uL (0.11-0.59); Monocytes % (auto) 10.4 %; Neutrophils # (auto) 4.78 K/uL (1.40-6.50); Neutrophils % (auto) 59.6 %; Platelet Count 323 K/uL (130-400); RDW Coefficient of Variation 15.8 % (11.5-14.5); RDW Standard Deviation 52.5 fL (36.4-46.3); Red Blood Count 3.51 M/uL (4.70-6.10); White Blood Count 8.04 K/ul (4.8-10.8)
[2023-07-22 09:10] LABS: Albumin Globulin Ratio 0.9 (0.9-2); Albumin Level 2.9 gm/dl (3.4-5.0); BUN Creatinine Ratio 13.7 (10-20); Bilirubin,Total 0.3 mg/dl (0.2-1.0); Creatinine Clr Calc Pharmacy 40.3 ml/min; Est GFR (African American) 39.9 ml/min; Est GFR (Non-African American) 34.4 ml/min; Globulin 3.3 gm/dl (2.5-4.0); Magnesium 1.8 mg/dl (1.7-2.4); Phosphorus 3.2 mg/dl (2.5-4.9); Potassium 5.3 mmol/L (3.5-5.1); Total Protein 6.2 gm/dl (6.0-8.3)
[2023-07-22] MEDS: FLUoxetine HCL 20 MG CAP PO SCH (09:11)
[2023-07-22] MEDS: SODIUM BICARBONATE 650 MG TAB PO SCH ×2 (09:11→21:51)
[2023-07-22] MEDS: FOLIC ACID 1 MG TAB PO SCH (09:11)
[2023-07-22] MEDS: ASPIRIN 81 MG ECTAB PO SCH (09:11)
[2023-07-22] MEDS: CYANOCOBALAMIN (B-12) 100 MCG TABLET PO SCH (09:11)
[2023-07-22] MEDS: METOCLOPRAMIDE HCL 10 MG TABLET PO SCH ×4 (09:11→21:50)
[2023-07-22] MEDS: ADVANCED PROBIOTIC 1250 MG CAPSULE PO SCH (09:11)
[2023-07-22] MEDS: PANTOprazole 40 MG TAB PO SCH ×2 (09:11→21:50)
[2023-07-22] MEDS: LANTUS PER UNIT CHARGE SQ SCH (09:13)
[2023-07-22] MEDS: INSULIN ASPART PER UNIT CHARGE SC SCH ×4 (09:13→22:03)
--- NOTE | 2023-07-22 11:07 | Orthopedic Progress Note ---
Date of Service July 22, 2023 Assessment & Plan (1) Osteomyelitis: Plan: Patient seen and evaluated in [facility] resting comfortably with no complaints. Patient is status post day #2 partial ostectomy of calcaneus (DOS: 07/20/23). Cultures preliminary show MRSA & Group B Beta Strep. Wound vac applied with out incident 125 mmHg continuous. Healthy bleeding does seem to be continuing. If problems with Vac arise then adaptic, 4x4, abd, kerlix will be applied. Will continue to follow. (2) Cellulitis of right foot: (3) Anemia: Admission and Anticipated Discharge Date Admission Date: July 19, 2023 Subjective Patient seen and evaluated in [facility]. Patient status post day #2 right calcaneal tuberosity excision (DOS: 07/20/23). Patient resting comfortably. There are no complaints. Off loading boots are applied, guards present. Physical Exam Constitutional: + frail appearing, cooperative and comfo rtable Eyes: normal visual case by confrontation Neck: normal visual inspection Respiratory: normal respiratory effort Cardiovascular: Rate/Rhythm: regular rate and regular rhythm Musculoskeletal: Extremities: extremities normal to inspection Skin: + ulcer (Right full thickness heel wound with exposed bone. Healthy bleeding tissue.) Psychiatric: Orientation: alert and oriented x 3 Results & Data Vital Signs (Past 12 Hours) Vital Signs Temp Pulse Resp BP Pulse Ox O2 Del Method 07/22/23 06:34 36.9 C 80 18 168/86 H 98 Room Air Diagnostic Findings [address], [place] [address] / Director: Castro Allen M.D. Clinical Laboratory Report Name: MARIELA ROSE [id number] Acct: [id number] Status: ADM IN : 1965 [facility] Date: 07/19/23 Age: 58 Sex: M Dis Date: Loc: Medical/Surgical/Ortho 3 [facility]/Bed: W358-1 Spec: [id number] Collected: 07/20/23-UNK Received: 07/20/23-[address]: Celestino Stout, DPM, MS Copy To: Shayy Montilla MD Source: Bone OV Order: Ordered: Aer/Amna Cult/Sm Comments: Comment Right heel bone for microbiology then to pathology Procedure Result Verified Site Gram Stain Final 07/21/23 Gram Stain Result Few WBCs Seen No Organisms Seen Aero/Amna Cult Preliminary 07/22/23-1053 Organism 1 Staph aureus MRSA Quantity Rare Sens Sensitivities to Follow +MixWound Plus Low Counts of Probable Skin Kaleigh Organism 2 Group B Beta Strep Quantity Rare Sens No Sensitivities to Follow Please see culture number [id number] for Grp B Strep sensitivities. MRSA RX M.I.C. --- --------- Clindamycin S <=0.5 Daptomycin S 1 Erythromycin R >4 Oxacillin R >2 Rifampin S <=1 Tetracycline S <=4 Trimeth/Sulfa S <=0.5/9.5 Vancomycin S 2 S = SENSITIVE I = INTERMEDIATE R = RESISTANT Name: MARIELA ROSE [id number] : 1965 PAGE 1 Printed: 07/22/23 1101 END OF REPORT (1) Osteomyelitis Laterality: right Osteomyelitis location: foot Osteomyelitis type: unspecified type Qualified Code(s): M86.9 - Osteomyelitis, unspecified (3) Anemia Anemia type: unspecified type Qualified Code(s): D64.9 - Anemia, unspecified
[2023-07-22] MEDS: LACTATED RINGER'S 1,000 ML IV SCH ×2 (11:58→23:43)
[2023-07-22] MEDS: PATIROMER CALCIUM SORBITEX 8.4 GM PACK PO SCH (13:57)
--- NOTE | 2023-07-22 18:07 | Hospitalist Progress Note ---
Date of Service July 22, 2023 Assessment & Plan (1) Osteomyelitis: (2) Diabetic ulcer of right foot: (3) Diabetic infection of right foot: (4) Diabetes mellitus type 1: (5) HTN (hypertension): (6) COVID-19: (7) Chronic hyperkalemia: (8) CKD (chronic kidney disease), stage III: (9) Chronic anemia: (10) Hypothyroidism: (11) Depression: Plan 58-year-old male with PMHx significant for DM type I, CKD stage III, diabetic neuropathy, HTN, hypothyroidism, chronic hyperkalemia, chronic anemia admitted with osteomyelitis of right heel. Osteomyelitis Diabetic ulcer of right foot Diabetic infection of right foot Patient presenting from [facility] for evaluation of worsening right heel wound. Recently admitted to [facility] 05/19 through 05/28 for polymicrobial right heel wound. Patient was discharged on IV ertapenem and oral amoxicillin. Completed antibiotic courses on 06/02. Heel worsening since then, presented for reevaluation Hemodynamically stable on admission, not septic CT right foot suggesting signs of early osteomyelitis of the right calcaneus MRI of the right ankle confirming osteomyelitis Wound Cx from 05/19 growing MRSA and GBS currently, MRSA sensitive to Vancomycin Podiatry consult with Dr. Stout- appreciate recs -s/p right heel wound debridement and calcaneal ostectomy with application wound vac on 07/20 -deep wound Cx obtained-currently growing MRSA and GBS -bone pathology sample- currently growing MRSA and GBS Was on Vancomycin and Meropenem, meropenem discontinued as Vancomycin covers both MRSA and GBS Continue with only Vancomycin ID consult for further recs for discharge- pending Per nurse navigator and CM, intermediate will only take IV abx after discharge via a PICC line (not USG IV), consider PICC line placement closer to discharge Diabetes mellitus, Type 1 Hgb A1c 6.8 06/2023 Noted to be hypoglycemic on labs, glucose 60, asymptomatic Basal home insulin previously held, re-started after surgery ISS Continue to monitor glucose levels HTN (hypertension) Hypertensive with BP 185/117 on admission Hydralazine 10 mg IV x 1 Currently not on antihypertensives, history of orthostatic hypotension previously on midodrine Monitor BPs, provide additional antihypertensive support if needed COVID-19 Patient tested positive for COVID-19 reports infection 2 weeks [employer] with mild symptoms currently asymptomatic Chronic hyperkalemia K+ 5.0 on admission Continue Veltassa CKD (chronic kidney disease), stage III: Baseline creatinine low - mid 2s Creatinine at baseline on admission Avoid nephrotoxic meds Continue renal meds-dialyvyte, sodium bicarb Continue to monitor Chronic anemia In the setting of CKD Recent baseline ~7, currently 10.8 on admission Receives Procrit injections weekly Hypothyroidism Chronic, stable Continue levothyroxine Depression Chronic, stable Continue home meds DVT PROPHYLAXIS: SQ heparin currently on hold in will-op setting Diet: DMII CODE STATUS: Full code Dispo: d/c back to [facility] once abx treatment finalized Admission and Anticipated Discharge Date Admission Date: July 19, 2023 Subjective Seen with guards at bedside. Denied acute concerns. Review of Systems Review of Systems: All systems reviewed & are unremarkable except as noted in Subjective Physical Exam Physical Exam: General: Alert, oriented. No acute distress Skin: No noted rashes or bruises Psych: Appropriate mood and affect Neuro: No gross deficits while laying in bed, able to move all extremities HEENT: NC/AT CV: RRR Resp: Breath sounds clear bilaterally, no increased effort of breathing. Abdomen: Soft, nontender, nondistended. Extremities: right foot bandaged at time of exam Results & Data Results & Data Vital Signs (Past 12 Hours) Vital Signs Temp Pulse Resp BP Pulse Ox O2 Del Method 07/22/23 14:07 36.8 C 66 16 137/78 98 Room Air 07/22/23 07:47 Room Air 07/22/23 06:34 36.9 C 80 18 168/86 H 98 Room Air (1) Osteomyelitis Laterality: left Osteomyelitis location: ankle Osteomyelitis type: unspecified type Qualified Code(s): M86.9 - Osteomyelitis, unspecified (2) Diabetic ulcer of right foot Diabetes mellitus type: other specified (including BRITT) Diabetic foot ulcer location: heel Non-pressure ulcer stage: unspecified non-pressure ulcer stage Qualified Code(s): E13.621 - Other specified diabetes mellitus with foot ulcer; L97.419 - Non-pressure chronic ulcer of right heel and midfoot with unspecified severity
[2023-07-22] MEDS: TAMSULOSIN HCL 0.4 MG CAP PO SCH (21:51)
[2023-07-22] MEDS: ATORVASTATIN 40 MG TAB PO SCH (21:51)
[2023-07-22] MEDS: hydrOXYzine HCl 25 MG TAB PO SCH (22:03)
[2023-07-22] MEDS: VANCOMYCIN HCL 1,000 MG in SODIUM CHLORIDE 0.9% 250 ML IV SCH (23:38)
[2023-07-23] MEDS: LEVOTHYROXINE SODIUM 150 MCG TABLET PO SCH (05:53)
[2023-07-23] MEDS: ACETAMINOPHEN 500 MG TAB PO SCH ×3 (05:53→20:57)
[2023-07-23 07:58] LABS: Hematocrit (blood only) 27.3 % (42.0-52.0); Hemoglobin 8.5 g/dl (14.0-18.0); Mean Corpuscular Hemoglobin 28.1 pg (25.0-34.0); Mean Corpuscular Hgb Conc 31.1 g/dL (32.0-36.0); Mean Corpuscular Volume 90.1 fL (80.0-100.0); Mean Platelet Volume 9.4 fL (9.4-12.4); Platelet Count 312 K/uL (130-400); RDW Coefficient of Variation 15.9 % (11.5-14.5); RDW Standard Deviation 51.8 fL (36.4-46.3); Red Blood Count 3.03 M/uL (4.70-6.10); White Blood Count 7.49 K/ul (4.8-10.8)
[2023-07-23 08:12] LABS: BUN Creatinine Ratio 18.6 (10-20); Calcium 7.8 mg/dl (8.6-10.3); Creatinine Clr Calc Pharmacy 43.9 ml/min; Est GFR (African American) 44.3 ml/min; Est GFR (Non-African American) 38.2 ml/min; Potassium 4.6 mmol/L (3.5-5.1)
[2023-07-23] MEDS: METOCLOPRAMIDE HCL 10 MG TABLET PO SCH ×4 (08:15→20:57)
[2023-07-23] MEDS: ASPIRIN 81 MG ECTAB PO SCH (08:16)
[2023-07-23] MEDS: CYANOCOBALAMIN (B-12) 100 MCG TABLET PO SCH (08:16)
[2023-07-23] MEDS: FLUoxetine HCL 20 MG CAP PO SCH (08:16)
[2023-07-23] MEDS: FOLIC ACID 1 MG TAB PO SCH (08:16)
[2023-07-23] MEDS: PANTOprazole 40 MG TAB PO SCH ×2 (08:16→20:57)
[2023-07-23] MEDS: ADVANCED PROBIOTIC 1250 MG CAPSULE PO SCH (08:16)
[2023-07-23] MEDS: SODIUM BICARBONATE 650 MG TAB PO SCH ×2 (08:17→20:57)
[2023-07-23] MEDS: INSULIN ASPART PER UNIT CHARGE SC SCH ×4 (08:19→21:12)
[2023-07-23] MEDS: LANTUS PER UNIT CHARGE SQ SCH (08:19)
--- NOTE | 2023-07-23 10:33 | Hospitalist Progress Note ---
Date of Service July 23, 2023 Assessment & Plan (1) Osteomyelitis: (2) Diabetic ulcer of right foot: (3) Diabetic infection of right foot: (4) Diabetes mellitus type 1: (5) HTN (hypertension): (6) COVID-19: (7) Chronic hyperkalemia: (8) CKD (chronic kidney disease), stage III: (9) Chronic anemia: (10) Hypothyroidism: (11) Depression: Plan 58-year-old male with PMHx significant for DM type I, CKD stage III, diabetic neuropathy, HTN, hypothyroidism, chronic hyperkalemia, chronic anemia admitted with osteomyelitis of right heel. Osteomyelitis Diabetic ulcer of right foot Diabetic infection of right foot Patient presenting from [facility] for evaluation of worsening right heel wound. Recently admitted to [facility] 05/19 through 05/28 for polymicrobial right heel wound. Patient was discharged on IV ertapenem and oral amoxicillin. Completed antibiotic courses on 06/02. Heel worsening since then, presented for reevaluation Hemodynamically stable on admission, not septic CT right foot suggesting signs of early osteomyelitis of the right calcaneus MRI of the right ankle confirming osteomyelitis Wound Cx from 05/19 growing MRSA and GBS currently, MRSA sensitive to Vancomycin Podiatry consult with Dr. Stout- appreciate recs -s/p right heel wound debridement and calcaneal ostectomy with application wound vac on 07/20 -deep wound Cx obtained-currently growing MRSA and GBS -bone pathology sample- currently growing MRSA and GBS Was on Vancomycin and Meropenem, meropenem discontinued as Vancomycin covers both MRSA and GBS Continue with only Vancomycin ID consult for further recs for discharge- pending Per nurse navigator and CM, nursing home will only take IV abx after discharge via a PICC line (not USG IV), consider PICC line placement closer to discharge Diabetes mellitus, Type 1 Hgb A1c 6.8 06/2023 Noted to be hypoglycemic on labs, glucose 60, asymptomatic Basal home insulin previously held, re-started after surgery ISS-added carb coverage 07/23 Continue to monitor glucose levels HTN (hypertension) Hypertensive with BP 185/117 on admission Hydralazine 10 mg IV x 1 Currently not on antihypertensives, history of orthostatic hypotension previously on midodrine Monitor BPs, provide additional antihypertensive support if needed--trial amlodipine 2.5 qHS COVID-19 Patient tested positive for COVID-19 reports infection 2 weeks [employer] with mild symptoms currently asymptomatic Chronic hyperkalemia K+ 5.0 on admission Continue Veltassa CKD (chronic kidney disease), stage III: Baseline creatinine low - mid 2s Creatinine at baseline on admission Avoid nephrotoxic meds Continue renal meds-dialyvyte, sodium bicarb Continue to monitor Chronic anemia In the setting of CKD Recent baseline ~7, currently 10.8 on admission Receives Procrit injections weekly Hypothyroidism Chronic, stable Continue levothyroxine Depression Chronic, stable Continue home meds DVT PROPHYLAXIS: SQ heparin currently on hold in will-op setting Diet: DMII CODE STATUS: Full code Dispo: d/c back to [facility] once abx treatment finalized Kenya Cagle DO [facility] Hospitalist Admission and Anticipated Discharge Date Admission Date: July 19, 2023 Subjective 58 yo incarcerated man who is wheelchair bound with peripheral neuropathy presents with osteomyelitis s/p partial ostectomy of calcaneus on 07/20. Doing well post op denies pain tolerating PO afebrile Physical Exam Physical Exam: CONSTITUTIONAL: WNWD, vitals as above, generally well-appearing, NAD EYES: normal conjunctivae, no scleral icterus ENT: external ear and nose normal, MMM NECK: trachea midline, RESPIRATORY: clear to auscultation bilaterally, no crackles, rales or wheezes, normal respiratory effort CARDIOVASCULAR: regular rate and rhythm, S1 and 2 heard without murmurs, gallops or rubs, no JVD, no peripheral edema, CHEST: inspection of chest was normal GASTROINTESTINAL: soft, nontender, ND, no guarding MUSCULOSKELETAL: strength 5/5 throughout, head is normocephalic and atraumatic SKIN: warm and dry, incision site was not evaluated. NEUROLOGIC: CN 2-12 grossly intact, no sensory deficit, normal cognition, normal speech, no tremor PSYCHIATRIC: alert cooperative and oriented to person, place and time. Euthymic mood, makes good eye contact, language grossly intact, recent and remote memory grossly intact. Results & Data Results & Data Vital Signs (Past 12 Hours) Vital Signs Temp Pulse Resp BP Pulse Ox O2 Del Method 07/23/23 07:41 36.9 C 77 16 175/84 H 97 Room Air 07/23/23 07:38 Room Air Laboratory Results Short CBC 07/23/23 Range/Units 07:32 WBC 7.49 (4.8-10.8) K/ul Hgb 8.5 L (14.0-18.0) g/dl Hct 27.3 L (42.0-52.0) % Plt Count 312 (130-400) K/uL [facility] 07/23/23 07:32 Sodium 137 Potassium 4.6 Chloride 110 H Carbon Dioxide 22 BUN 35 H Creatinine 1.88 H Glucose 194 H Calcium 7.8 L Medications Administered Current Inpatient Medications Acetaminophen (Acetaminophen 500 Mg Tab) 1,000 mg PO Q8 MARY Stop: 08/18/23 21:59 Last Admin: 07/23/23 05:53 Dose: 1,000 mg Alendronate Sodium (Alendronate Sodium 70 Mg Tab) 70 mg PO [facility] Stop: 08/24/23 06:29 Aspirin (Aspirin 81 Mg Ectab) 81 mg PO QAM [facility] Stop: 08/19/23 08:59 Last Admin: 07/23/23 08:16 Dose: 81 mg Atorvastatin Calcium (Atorvastatin 40 Mg Tab) [address] [facility] Stop: 08/18/23 20:59 Last Admin: 07/22/23 21:51 Dose: 40 mg Cyanocobalamin (Cyanocobalamin (B-12) 100 Mcg Tablet) [facility] Stop: 08/19/23 08:59 Last Admin: 07/23/23 08:16 Dose: 100 mcg Dextrose (Dextrose 50% 50 Ml Syringe) 25 - 50 ml IV UD PRN; Protocol PRN Reason: Hypoglycemia Protocol Stop: 08/18/23 16:36 Last Admin: 07/20/23 05:57 Dose: 50 ml Epoetin Erick (Epoetin Erick 10,000 Units/Ml Vial) 10,000 units SQ Fr MARY Stop: 08/20/23 08:59 Last Admin: 07/21/23 09:42 Dose: 10,000 units Fluoxetine HCl (Fluoxetine Hcl 20 Mg Cap) 40 mg PO QAM [facility] Stop: 08/19/23 08:59 Last Admin: 07/23/23 08:16 Dose: 40 mg Folic Acid (Folic Acid 1 Mg Tab) [facility] Stop: 08/19/23 08:59 Last Admin: 07/23/23 08:16 Dose: 1 mg Glucagon (Glucagon For Inj 1 Mg Vial) 1 mg SQ UD PRN; Protocol PRN Reason: Hypoglycemia Protocol Stop: 08/18/23 16:36 Glucose (Glucose 10 Tab/Tube) 4 - 8 tab PO UD PRN; Protocol PRN Reason: Hypoglycemia Treatment Stop: 08/18/23 16:36 Glucose (Glucose 40% Gel 15 Gm Tube) 15 - 30 gm PO UD PRN; Protocol PRN Reason: Hypoglycemia Protocol Stop: 08/18/23 16:36 Hydroxyzine HCl (Hydroxyzine Hcl 25 Mg Tab) 50 mg PO HS [facility] Stop: 08/18/23 20:59 Last Admin: 07/22/23 22:03 Dose: 50 mg Vancomycin HCl 1,000 mg/ (Sodium Chloride) 270 mls @ 200 mls/hr IV Q24H MARY Stop: 08/31/23 00:00 Last Infusion: 07/23/23 02:26 Dose: Infused Lactated Ringer's (Lr) 1,000 mls @ 80 mls/hr IV .[id number] [facility] Stop: 07/23/23 12:44 Last Infusion: 07/23/23 05:55 Dose: 80 mls/hr Insulin Aspart (Insulin Aspart Per Unit Charge) 0 units SC [facility] Stop: 08/19/23 05:59 Last Admin: 07/23/23 08:19 Dose: 2 units Insulin Glargine (Lantus Per Unit Charge) 14 units SQ DAILY [facility] Stop: 08/20/23 08:59 Last Admin: 07/23/23 08:19 Dose: 14 units Lactobacillus Acidophilus (Advanced Probiotic 1250 Mg Capsule) 2 cap PO DAILY MARY Stop: 08/19/23 08:59 Last Admin: 07/23/23 08:16 Dose: 2 cap Levothyroxine Sodium (Levothyroxine Sodium 150 Mcg Tablet) 150 mcg PO DAILYBB MARY Stop: 08/19/23 06:29 Last Admin: 07/23/23 05:53 Dose: 150 mcg Metoclopramide HCl (Metoclopramide Hcl 10 Mg Tablet) 10 mg PO ACHS [facility] Stop: 08/18/23 16:36 Last Admin: 07/23/23 08:15 Dose: 10 mg Miscellaneous (Carbohydrates For Hypoglycemia ) 15 - 30 gm PO UD PRN PRN Reason: Hypoglycemia Protocol Stop: 08/18/23 16:36 Last Admin: 07/19/23 18:43 Dose: 15 gm Miscellaneous Information (Vancomycin Consult Active) 1 each N/A UD PRN PRN Reason: Consult Stop: 08/18/23 16:36 Pantoprazole Sodium (Pantoprazole 40 Mg Tab) 40 mg PO BID [facility] Stop: 08/18/23 20:59 Last Admin: 07/23/23 08:16 Dose: 40 mg Patiromer (Patiromer Calcium Sorbitex 8.4 Gm Pack) 25.2 gm PO Q24H MARY Stop: 08/19/23 12:59 Last Admin: 07/22/23 13:57 Dose: 25.2 gm Sodium Bicarbonate (Sodium Bicarbonate 650 Mg Tab) 650 mg PO BID MARY Stop: 08/18/23 20:59 Last Admin: 07/23/23 08:17 Dose: 650 mg Tamsulosin HCl (Tamsulosin Hcl 0.4 Mg Cap) 0.4 mg PO HS [facility] Stop: 08/18/23 20:59 Last Admin: 07/22/23 21:51 Dose: 0.4 mg Vitamin D (Cholecalciferol 1,000 Units 25 Mcg Tab) 2,000 units PO Th [facility] Stop: 08/19/23 08:59 Last Admin: 07/20/23 08:23 Dose: 2,000 units (1) Osteomyelitis Laterality: left Osteomyelitis location: ankle Osteomyelitis type: unspecified type Qualified Code(s): M86.9 - Osteomyelitis, unspecified (2) Diabetic ulcer of right foot Diabetes mellitus type: other specified (including BRITT) Diabetic foot ulcer location: heel Non-pressure ulcer stage: unspecified non-pressure ulcer stage Qualified Code(s): E13.621 - Other specified diabetes mellitus with foot ulcer; L97.419 - Non-pressure chronic ulcer of right heel and midfoot with unspecified severity
[2023-07-23] MEDS: PATIROMER CALCIUM SORBITEX 8.4 GM PACK PO SCH (12:25)
[2023-07-23] MEDS ORDERED: amLODIPine BESYLATE 5 MG TAB PO SCH (18:45)
[2023-07-23] MEDS: hydrOXYzine HCl 25 MG TAB PO SCH (20:57)
[2023-07-23] MEDS: ATORVASTATIN 40 MG TAB PO SCH (20:57)
[2023-07-23] MEDS: amLODIPine BESYLATE 5 MG TAB PO SCH (20:57)
[2023-07-23] MEDS: TAMSULOSIN HCL 0.4 MG CAP PO SCH (20:57)
--- NOTE | 2023-07-23 21:30 | Orthopedic Progress Note ---
Date of Service July 23, 2023 Assessment & Plan (1) Osteomyelitis: Plan: Patient seen and evaluated in 259-1 resting comfortably with no complaints. Patient is status post day #3 partial ostectomy of calcaneus (DOS: 07/20/23). Dry, sterile, dressing intact. Plan to apply wound vac 07/24/23. No other intervention planned at this time. Will continue to follow while in house. (2) Cellulitis of right foot: (3) Anemia: Admission and Anticipated Discharge Date Admission Date: July 19, 2023 Subjective Patient seen and examined at bedside in 259-1 resting comfortably. Patient has no complaints. Physical Exam Constitutional: + frail appearing, cooperative and comfo rtable Eyes: normal visual case by confrontation Neck: normal visual inspection Respiratory: normal respiratory effort Cardiovascular: Rate/Rhythm: regular rate and regular rhythm Musculoskeletal: Extremities: extremities normal to inspection Skin: + ulcer (Right full thickness heel wound with exposed bone. Healthy bleeding tissue.) Psychiatric: Orientation: alert and oriented x 3 Results & Data Vital Signs (Past 12 Hours) Vital Signs Temp Pulse Resp BP Pulse Ox O2 Del Method 07/23/23 21:09 36.6 C 77 18 130/76 98 Room Air 07/23/23 13:17 36.8 C 79 16 126/60 98 Room Air 07/23/23 11:03 163/83 H (1) Osteomyelitis Laterality: right Osteomyelitis location: foot Osteomyelitis type: unspecified type Qualified Code(s): M86.9 - Osteomyelitis, unspecified (3) Anemia Anemia type: unspecified type Qualified Code(s): D64.9 - Anemia, unspecified
[2023-07-24] MEDS: VANCOMYCIN HCL 1,000 MG in SODIUM CHLORIDE 0.9% 250 ML IV SCH ×2 (00:11→23:45)
[2023-07-24] MEDS: ACETAMINOPHEN 500 MG TAB PO SCH ×3 (05:26→20:54)
[2023-07-24] MEDS: LEVOTHYROXINE SODIUM 150 MCG TABLET PO SCH (05:26)
[2023-07-24] MEDS: PANTOprazole 40 MG TAB PO SCH ×2 (08:17→20:54)
[2023-07-24] MEDS: FLUoxetine HCL 20 MG CAP PO SCH (08:17)
[2023-07-24] MEDS: FOLIC ACID 1 MG TAB PO SCH (08:17)
[2023-07-24] MEDS: SODIUM BICARBONATE 650 MG TAB PO SCH ×2 (08:17→20:54)
[2023-07-24] MEDS: ADVANCED PROBIOTIC 1250 MG CAPSULE PO SCH (08:17)
[2023-07-24] MEDS: ASPIRIN 81 MG ECTAB PO SCH (08:17)
[2023-07-24] MEDS: CYANOCOBALAMIN (B-12) 100 MCG TABLET PO SCH (08:18)
[2023-07-24] MEDS: METOCLOPRAMIDE HCL 10 MG TABLET PO SCH ×3 (08:18→17:48)
[2023-07-24] MEDS: INSULIN ASPART PER UNIT CHARGE SC SCH ×4 (08:19→20:55)
[2023-07-24] MEDS: LANTUS PER UNIT CHARGE SQ SCH (08:19)
[2023-07-24 08:52] LABS: Creatinine Clr Calc Pharmacy 42.3 ml/min; Est GFR (African American) 42.4 ml/min; Est GFR (Non-African American) 36.6 ml/min
--- NOTE | 2023-07-24 11:36 | Pharmacy Report ---
Pharmacy PK ABX Note - Date of Service July 24, 2023 - Assessment and Plan Assessment 58 year old M receiving empiric vancomycin for treatment of right foot osteomyelitis. Meropenem was discontinued on 07/22. Pertinent microbiologic data includes: negative MRSA Nasal Swab, bone culture (07/20): growing MRSA, Group B Strep, probable Enterococcus Prior right foot culture from 05/19 grew ESBL E.coli, Citrobacter freundii, and Enterococcus faecalis. S/p right heel wound debridement 07/20/23. Pertinent PMH includes T1DM, stage 3 CKD (baseline SCr appears to be low-mid 2 mg/dL, historically fluctuates), and history of right heel infection. Patient incarcerated. Day # 6 of antimicrobial therapy. Plan Vancomycin * Current regimen: 1000 mg IV every 24 hours * Random level obtained 07/24/23 resulted as 22.6 mcg/mL. This is predicted to achieve target AUC/LINN of 400-600 mg/L.hr * Predicted AUC at steady state: 549 mg/L.hr * Continue 1000 mg IV every 24 hours * Will repeat level in the next ~72 hours if therapy is continued and/or change in patient clinical status Pharmacy will continue to follow and will adjust dose/frequency as necessary. Thank you. Pharmacy has transitioned to AUC monitoring for vancomycin. AUC/LINN is the preferred PK/PD target and is associated with decreased risk of nephrotoxicity compared to traditional trough targets.
[2023-07-24] MEDS: PATIROMER CALCIUM SORBITEX 8.4 GM PACK PO SCH ×2 (13:23→13:25)
--- NOTE | 2023-07-24 14:55 | Hospitalist Progress Note ---
Date of Service July 24, 2023 Assessment & Plan (1) Osteomyelitis: (2) Diabetic ulcer of right foot: (3) Diabetic infection of right foot: (4) Diabetes mellitus type 1: (5) HTN (hypertension): (6) COVID-19: (7) Chronic hyperkalemia: (8) CKD (chronic kidney disease), stage III: (9) Chronic anemia: (10) Hypothyroidism: (11) Depression: Plan 58-year-old male with PMHx significant for DM type I, CKD stage III, diabetic neuropathy, HTN, hypothyroidism, chronic hyperkalemia, chronic anemia admitted with osteomyelitis of right heel. Osteomyelitis Diabetic ulcer of right foot Diabetic infection of right foot Patient presenting from [facility] for evaluation of worsening right heel wound. Recently admitted to [facility] 05/19 through 05/28 for polymicrobial right heel wound. Patient was discharged on IV ertapenem and oral amoxicillin. Completed antibiotic courses on 06/02. Heel worsening since then, presented for reevaluation Hemodynamically stable on admission, not septic CT right foot suggesting signs of early osteomyelitis of the right calcaneus MRI of the right ankle confirming osteomyelitis Wound Cx from 05/19 growing MRSA and GBS currently, MRSA sensitive to Vancomycin Podiatry consult with Dr. Stout- appreciate recs -s/p right heel wound debridement and calcaneal ostectomy with application wound vac on 07/20 -deep wound Cx obtained-currently growing MRSA and GBS -bone pathology sample- currently growing MRSA and GBS Was on Vancomycin and Meropenem, meropenem discontinued as Vancomycin covers both MRSA and GBS Continue with only Vancomycin ID consult for further recs for discharge- pending Per nurse navigator and CM, longterm will only take IV abx after discharge via a PICC line (not USG IV), consider PICC line placement closer to discharge Diabetes mellitus, Type 1 Hgb A1c 6.8 06/2023 Noted to be hypoglycemic on labs, glucose 60, asymptomatic Basal home insulin previously held, re-started after surgery ISS-added carb coverage 07/23 Continue to monitor glucose levels HTN (hypertension) Hypertensive with BP 185/117 on admission Hydralazine 10 mg IV x 1 Currently not on antihypertensives, history of orthostatic hypotension previously on midodrine Monitor BPs, provide additional antihypertensive support if needed--trial amlodipine 2.5 qHS COVID-19 Patient tested positive for COVID-19 reports infection 2 weeks [employer] with mild symptoms currently asymptomatic Chronic hyperkalemia K+ 5.0 on admission Continue Veltassa CKD (chronic kidney disease), stage III: Baseline creatinine low - mid 2s Creatinine at baseline on admission Avoid nephrotoxic meds Continue renal meds-dialyvyte, sodium bicarb Continue to monitor Chronic anemia In the setting of CKD Recent baseline ~7, currently 10.8 on admission Receives Procrit injections weekly Hypothyroidism Chronic, stable Continue levothyroxine Depression Chronic, stable Continue home meds DVT PROPHYLAXIS: SQ heparin currently on hold in will-op setting Diet: DMII CODE STATUS: Full code Dispo: d/c back to [facility] once abx treatment finalized Kenya Cagle DO [facility] Hospitalist Admission and Anticipated Discharge Date Admission Date: July 19, 2023 Subjective 58 yo incarcerated man who is wheelchair bound with peripheral neuropathy presents with osteomyelitis s/p partial ostectomy of calcaneus on 07/20. Doing well post op denies pain tolerating PO afebrile dropped reglan to BID and monitoring for effect-no issues today discussed care plan with Dr. Celestino Stout, surgeon Physical Exam Physical Exam: CONSTITUTIONAL: WNWD, vitals as above, generally well-appearing, NAD EYES: normal conjunctivae, no scleral icterus ENT: external ear and nose normal, MMM NECK: trachea midline, RESPIRATORY: clear to auscultation bilaterally, no crackles, rales or wheezes, normal respiratory effort CARDIOVASCULAR: regular rate and rhythm, S1 and 2 heard without murmurs, gallops or rubs, no JVD, no peripheral edema, CHEST: inspection of chest was normal GASTROINTESTINAL: soft, nontender, ND, no guarding MUSCULOSKELETAL: strength 5/5 throughout, head is normocephalic and atraumatic SKIN: warm and dry, incision site was not evaluated. Wrapped in fresh dressing. NEUROLOGIC: CN 2-12 grossly intact, no sensory deficit, normal cognition, normal speech, no tremor PSYCHIATRIC: alert cooperative and oriented to person, place and time. Euthymic mood, makes good eye contact, language grossly intact, recent and remote memory grossly intact. Results & Data Results & Data Vital Signs (Past 12 Hours) Vital Signs Temp Pulse Resp BP Pulse Ox O2 Del Method 07/24/23 08:13 36.6 C 72 16 157/78 H 99 Room Air Laboratory Results BMP 07/24/23 08:11 Creatinine 1.95 H Medications Administered Current Inpatient Medications Acetaminophen (Acetaminophen 500 Mg Tab) 1,000 mg PO Q8 [facility] Stop: 08/18/23 21:59 Last Admin: 07/24/23 13:23 Dose: 1,000 mg Alendronate Sodium (Alendronate Sodium 70 Mg Tab) 70 mg PO Tu [facility] Stop: 08/24/23 06:29 Amlodipine Besylate (Amlodipine Besylate 5 Mg Tab) 2.5 mg PO [facility] Stop: 08/22/23 20:59 Last Admin: 07/23/23 20:57 Dose: 2.5 mg Aspirin (Aspirin 81 Mg Ectab) 81 mg PO [facility] Stop: 08/19/23 08:59 Last Admin: 07/24/23 08:17 Dose: 81 mg Atorvastatin Calcium (Atorvastatin 40 Mg Tab) 40 mg PO [facility] Stop: 08/18/23 20:59 Last Admin: 07/23/23 20:57 Dose: 40 mg Cyanocobalamin (Cyanocobalamin (B-12) 100 Mcg Tablet) 100 mcg PO [facility] Stop: 08/19/23 08:59 Last Admin: 07/24/23 08:18 Dose: 100 mcg Dextrose (Dextrose 50% 50 Ml Syringe) 25 - 50 ml IV UD PRN; Protocol PRN Reason: Hypoglycemia Protocol Stop: 08/18/23 16:36 Last Admin: 07/20/23 05:57 Dose: 50 ml Epoetin Erick (Epoetin Erick 10,000 Units/Ml Vial) 10,000 units SQ Fr [facility] Stop: 08/20/23 08:59 Last Admin: 07/21/23 09:42 Dose: 10,000 units Fluoxetine HCl (Fluoxetine Hcl 20 Mg Cap) 40 mg PO [facility] Stop: 08/19/23 08:59 Last Admin: 07/24/23 08:17 Dose: 40 mg Folic Acid (Folic Acid 1 Mg Tab) 1 mg PO [facility] Stop: 08/19/23 08:59 Last Admin: 07/24/23 08:17 Dose: 1 mg Glucagon (Glucagon For Inj 1 Mg Vial) 1 mg SQ UD PRN; Protocol PRN Reason: Hypoglycemia Protocol Stop: 08/18/23 16:36 Glucose (Glucose 10 Tab/Tube) 4 - 8 tab PO UD PRN; Protocol PRN Reason: Hypoglycemia Treatment Stop: 08/18/23 16:36 Glucose (Glucose 40% Gel 15 Gm Tube) 15 - 30 gm PO UD PRN; Protocol PRN Reason: Hypoglycemia Protocol Stop: 08/18/23 16:36 Hydroxyzine HCl (Hydroxyzine Hcl 25 Mg Tab) 50 mg PO HS [facility] Stop: 08/18/23 20:59 Last Admin: 07/23/23 20:57 Dose: 50 mg Vancomycin HCl 1,000 mg/ (Sodium Chloride) 270 mls @ 200 mls/hr IV Q24H [facility] Stop: 08/31/23 00:00 Last Infusion: 07/24/23 01:37 Dose: Infused Insulin Aspart (Insulin Aspart Per Unit Charge) 0 units SC ACHS [facility] Stop: 08/19/23 05:59 Last Admin: 07/24/23 13:04 Dose: 7 units Insulin Glargine (Lantus Per Unit Charge) 14 units SQ DAILY [facility] Stop: 08/20/23 08:59 Last Admin: 07/24/23 08:19 Dose: Not Given Lactobacillus Acidophilus (Advanced Probiotic 1250 Mg Capsule) 2 cap PO DAILY [facility] Stop: 08/19/23 08:59 Last Admin: 07/24/23 08:17 Dose: 2 cap Levothyroxine Sodium (Levothyroxine Sodium 150 Mcg Tablet) 150 mcg PO DAILYBB [facility] Stop: 08/19/23 06:29 Last Admin: 07/24/23 05:26 Dose: 150 mcg Metoclopramide HCl (Metoclopramide Hcl 10 Mg Tablet) 10 mg PO BIDM [facility] Stop: 08/23/23 16:59 Miscellaneous (Carbohydrates For Hypoglycemia ) 15 - 30 gm PO UD PRN PRN Reason: Hypoglycemia Protocol Stop: 08/18/23 16:36 Last Admin: 07/19/23 18:43 Dose: 15 gm Miscellaneous Information (Vancomycin Consult Active) 1 each N/A UD PRN PRN Reason: Consult Stop: 08/18/23 16:36 Pantoprazole Sodium (Pantoprazole 40 Mg Tab) 40 mg PO BID [facility] Stop: 08/18/23 20:59 Last Admin: 07/24/23 08:17 Dose: 40 mg Patiromer (Patiromer Calcium Sorbitex 8.4 Gm Pack) 25.2 gm PO Q24H [facility]ARY Stop: 08/19/23 12:59 Last Admin: 07/24/23 13:25 Dose: Not Given Sodium Bicarbonate (Sodium Bicarbonate 650 Mg Tab) 650 mg PO BID [facility] Stop: 08/18/23 20:59 Last Admin: 07/24/23 08:17 Dose: 650 mg Tamsulosin HCl (Tamsulosin Hcl 0.4 Mg Cap) 0.4 mg PO HS [facility] Stop: 08/18/23 20:59 Last Admin: 07/23/23 20:57 Dose: 0.4 mg Vitamin D (Cholecalciferol 1,000 Units 25 Mcg Tab) 2,000 units PO Th [facility] Stop: 08/19/23 08:59 Last Admin: 07/20/23 08:23 Dose: 2,000 units (1) Osteomyelitis Laterality: left Osteomyelitis location: ankle Osteomyelitis type: unspecified type Qualified Code(s): M86.9 - Osteomyelitis, unspecified (2) Diabetic ulcer of right foot Diabetes mellitus type: other specified (including BRITT) Diabetic foot ulcer location: heel Non-pressure ulcer stage: unspecified non-pressure ulcer stage Qualified Code(s): E13.621 - Other specified diabetes mellitus with foot ulcer; L97.419 - Non-pressure chronic ulcer of right heel and midfoot with unspecified severity
--- NOTE | 2023-07-24 20:12 | Orthopedic Progress Note ---
Date of Service July 24, 2023 Assessment & Plan (1) Osteomyelitis: Plan: Patient seen and evaluated in 259-1 resting comfortably with no complaints. Patient is status post day #4 partial ostectomy of calcaneus (DOS: 07/20/23). Dry, sterile, dressing intact. Plan to apply wound vac 07/25/23. No other intervention planned at this time. Will continue to follow while in house. (2) Cellulitis of right foot: (3) Anemia: Admission and Anticipated Discharge Date Admission Date: July 19, 2023 Subjective Patient seen and evaluated in 259-1 resting comfortably with no complaints. Patient is status post day #4 partial ostectomy of calcaneus (DOS: 07/20/23). Physical Exam Constitutional: + frail appearing, cooperative and comfo rtable Eyes: normal visual case by confrontation Neck: normal visual inspection Respiratory: normal respiratory effort Cardiovascular: Rate/Rhythm: regular rate and regular rhythm Musculoskeletal: Extremities: extremities normal to inspection Skin: + ulcer (Right full thickness heel wound with exposed bone. Healthy bleeding tissue.) Psychiatric: Orientation: alert and oriented x 3 Results & Data Vital Signs (Past 12 Hours) Vital Signs Temp Pulse Resp BP Pulse Ox O2 Del Method 07/24/23 16:47 36.7 C 73 18 154/81 H 99 Room Air 07/24/23 08:13 36.6 C 72 16 157/78 H 99 Room Air (1) Osteomyelitis Laterality: right Osteomyelitis location: foot Osteomyelitis type: unspecified type Qualified Code(s): M86.9 - Osteomyelitis, unspecified (3) Anemia Anemia type: unspecified type Qualified Code(s): D64.9 - Anemia, unspecified
[2023-07-24] MEDS: ATORVASTATIN 40 MG TAB PO SCH (20:54)
[2023-07-24] MEDS: amLODIPine BESYLATE 5 MG TAB PO SCH (20:54)
[2023-07-24] MEDS: hydrOXYzine HCl 25 MG TAB PO SCH (20:54)
[2023-07-24] MEDS: TAMSULOSIN HCL 0.4 MG CAP PO SCH (20:54)
[2023-07-25] MEDS: ACETAMINOPHEN 500 MG TAB PO SCH ×3 (05:42→20:15)
[2023-07-25] MEDS: LEVOTHYROXINE SODIUM 150 MCG TABLET PO SCH (05:42)
[2023-07-25] MEDS ORDERED: ALENDRONATE SODIUM 70 MG TAB PO SCH (06:30)
[2023-07-25] MEDS: INSULIN ASPART PER UNIT CHARGE SC SCH ×4 (09:53→21:00)
[2023-07-25] MEDS: ADVANCED PROBIOTIC 1250 MG CAPSULE PO SCH (09:54)
[2023-07-25] MEDS: PANTOprazole 40 MG TAB PO SCH ×2 (09:54→20:14)
[2023-07-25] MEDS: SODIUM BICARBONATE 650 MG TAB PO SCH ×2 (09:54→20:15)
[2023-07-25] MEDS: ASPIRIN 81 MG ECTAB PO SCH (09:54)
[2023-07-25] MEDS: CYANOCOBALAMIN (B-12) 100 MCG TABLET PO SCH (09:54)
[2023-07-25] MEDS: FLUoxetine HCL 20 MG CAP PO SCH (09:54)
[2023-07-25] MEDS: FOLIC ACID 1 MG TAB PO SCH (09:54)
[2023-07-25] MEDS: METOCLOPRAMIDE HCL 10 MG TABLET PO SCH ×2 (09:54→17:55)
[2023-07-25 10:44] LABS: Creatinine Clr Calc Pharmacy 47.2 ml/min; Est GFR (African American) 48.3 ml/min; Est GFR (Non-African American) 41.7 ml/min
[2023-07-25] MEDS ORDERED: DAPTOmycin 750 MG in SYRINGE 0 ML IV SCH (12:00)
[2023-07-25] MEDS: PATIROMER CALCIUM SORBITEX 8.4 GM PACK PO SCH (13:37)
--- NOTE | 2023-07-25 14:22 | Infectious Disease Consult ---
Date of Service July 25, 2023 Telehealth Information I performed this visit using a real-time telehealth connection between my location and the patients location ([facility]). After connecting through interactive tele-video, patient was identified Assessment & Plan (1) Osteomyelitis: (2) CKD (chronic kidney disease), stage III: (3) Diabetic infection of right foot: (4) Diabetic ulcer of right foot: Plan Recommend continuing daptomycin for 6 weeks with weekly CBC CMP and CK History of Present Illness History of Present Illness 58 y/o M inmate PMHx DM type I, CKD stage III, diabetic neuropathy, HTN, hypothyroidism, chronic hyperkalemia, chronic anemia,who presented to the ED for evaluation of right heel wound. Patient was recently admitted to [facility] 05/19 through 05/28 for polymicrobial right heel wound and was discharged on IV ertapenem and oral amoxicillin. He completed antibiotic courses on 06/02 and reported worsening of his right heel wound over the past couple of weeks. Reports that he was evaluated in the [facility] and they recommended he be evaluated in the ED. Patient denies fevers and chills but reports ongoing drainage of the right heel wound since last hospitalization. His right foot CT suggest early osteomyelitis of the calcaneus. Patient was given IV meropenem and IV vancomycin. He also has tested positive for COVID-19 however reports being infected about 2 weeks ago and has no further symptoms.He was taken to the OR for 1.) Right heel wound debridement, excision of wound 2.) Partial excision , ostectomy of right calcaneus 3.) Application of negative pressure wound vac therapy.His wound cultures have grown MRSA ,Beta streptococcus and VRE and he is currently on daptomycin Allergies Allergy/AdvReac Type Severity Reaction Status Date / Time sodium chloride AdvReac Unknown CONTRAINDIC Verified 07/19/23 15:29 [From [place] Nasal] ATED. Home Medications Medication Instructions Recorded Confirmed Type alendronate 70 mg tablet 70 mg PO WK 03/05/22 07/19/23 History aspirin 81 mg tablet,delayed 81 mg PO QAM 03/05/22 07/19/23 History release ergocalciferol (vitamin D2) 50 mcg 50 mcg PO WK 03/05/22 07/19/23 History (2,000 unit) capsule fluoxetine 20 mg capsule 40 mg PO QAM 03/05/22 07/19/23 History hydroxyzine pamoate 50 mg capsule 50 mg PO HS 03/05/22 07/19/23 History insulin regular human 100 unit/mL 2 unit subcut BID 03/05/22 07/19/23 History injection solution (Novolin R Regular U-100 Insulin) levothyroxine 150 mcg tablet 150 mcg PO DAILYBB 03/05/22 07/19/23 History metoclopramide HCl 10 mg tablet 10 mg PO ACHS 03/05/22 07/19/23 History ondansetron 8 mg disintegrating 8 mg PO TID 03/05/22 07/19/23 History tablet pantoprazole 40 mg tablet,delayed 40 mg PO BID 03/05/22 07/19/23 History release patiromer calcium sorbitex 25.2 25.2 g PO QPM 03/05/22 07/19/23 History gram oral powder packet (Veltassa) tamsulosin 0.4 mg capsule 0.4 mg PO HS 03/05/22 07/19/23 History vitamin B complex with C-folic 1 tab PO DAILY 03/05/22 07/19/23 History acid 0.8 mg-zinc citrate 50 mg tablet (Dialyvite 800 with Zinc 50) cyanocobalamin (vitamin B-12) 100 100 mcg PO QAM #30 tabs 03/06/22 07/19/23 Rx mcg tablet (Vitamin B-12) folic acid 1 mg tablet 1 mg PO QAM #30 tabs 03/06/22 07/19/23 Rx epoetin sanchez 10,000 unit/mL 10,000 unit subcut WK 11/21/22 07/19/23 History injection solution (Epogen) ascorbic acid (vitamin C) 500 mg 500 mg PO QAM 12/14/22 07/19/23 History tablet (Vitamin C) atorvastatin 40 mg tablet 40 mg PO HS 12/14/22 07/19/23 History insulin regular human 100 unit/mL 1 sliding scale dose subcut 12/14/22 07/19/23 History injection solution (Novolin R USEASDIRECTD PRN Hyperglycemia Regular U-100 Insulin) sodium bicarbonate 650 mg tablet 650 mg PO BID 12/14/22 07/19/23 History lactobacillus combo no.11 15 1 cap PO DAILY #30 caps 12/22/22 07/19/23 Rx billion cell sprinkle capsule (Probiotic) ibuprofen 600 mg tablet 600 mg PO TID PRN Pain 05/19/23 07/19/23 History insulin glargine 100 unit/mL 14 unit subcut DAILY 05/19/23 07/19/23 History subcutaneous solution acetaminophen 500 mg tablet 1,000 mg PO TID 07/19/23 07/19/23 History (Tylenol Extra Strength) loperamide 2 mg capsule (Imodium 4 mg PO BID PRN LOOSE STOOLS 07/19/23 07/19/23 History A-D) Patient History Medical History HTN (hypertension) Osteomyelitis of ankle CKD (chronic kidney disease), stage III Diabetic ulcer of left ankle Diabetic neuropathy Chronic nausea Chronic hyperkalemia Chronic anemia Chronic hyponatremia CKD (chronic kidney disease) Psoriasis Orthostatic hypotension on chronic fludrocortisone Proteinuria NSTEMI (non-ST elevated myocardial infarction) Diabetes mellitus type 1 Non-STEMI (non-ST elevated myocardial infarction) Hypothyroidism Surgical History Status post right foot surgery Family History Other Heart disease Social History Smoking Status: Former smoker Tobacco Type: Cigarettes Cigarettes Per Day: 1 ppd; Second Hand Exposure: No; Do You Dip or Chew Tobacco: No; Hx Alcohol Use: No Hx Substance Use: No Preferred Language: Emirati Communication Ability: Effective Visual Impairment: No Limitations Finishing Range Supervisor Required: No Beliefs That Will Affect Care: None Current Living Situation: Other Current Living Situation Comment: assisted Other Information That Helps Us Care for You: No Feels Safe at Home: Yes Safety Concerns: Feels Safe At This Time Assistive Devices: None Results & Data Vital Signs (Past 12 Hours) Vital Signs Temp Pulse Resp BP Pulse Ox O2 Del Method 07/25/23 14:10 36.6 C 75 16 178/88 H 100 Room Air 07/25/23 07:01 36.6 C 71 16 175/87 H 99 Room Air Diagnostic Findings MRSA VRE E fa RX M.I.C. RX M.I.C. --- --------- --- --------- Ampicillin R >8 Clindamycin S <=0.5 Daptomycin S 1 S 4 Erythromycin R >4 Gent Synergy S <=500 MRSA Grp.B Strp RX M.I.C. RX M.I.C. --- --------- --- --------- Ampicillin S 0.12 MRSA RX M.I.C. --- --------- Clindamycin S <=0.5 Daptomycin S 1 Erythromycin R >4 Oxacillin R >2 Rifampin S <=1 Tetracycline S <=4 Trimeth/Sulfa S <=0.5/9.5 Vancomycin S 2 S = SENSITIVE I = INTERMEDIATE R = RESISTANT Azithromycin R >2 Cefepime S <=0.25 Cefotaxime S <=0.25 Ceftriaxone S <=0.25 Chloramphenicol S 4 Clindamycin S <=0.5 R >0.5 Daptomycin S 1 Erythromycin R >4 R >0.5 Oxacillin R >2 Penicillin S 0.06 Rifampin S <=1 Tetracycline S <=4 Trimeth/Sulfa S <=0.5/9.5 Vancomycin S 2 S 0.5 S = SENSITIVE I = INTERMEDIATE R = RESISTANT Oxacillin R >2 Penicillin R >8 Rifampin S <=1 Strep Synergy R >1000 Tetracycline S <=4 Trimeth/Sulfa S <=0.5/9.5 Vancomycin S 2 R >16 Enterococcus faecium VRE: Positive Combo 33 Streptomycin Synergy Screen R Gentamicin Synergy Screen S S = SENSITIVE I = INTERMEDIATE R = RESISTANT (1) Osteomyelitis Laterality: right Osteomyelitis location: foot Osteomyelitis type: unspecified type Qualified Code(s): M86.9 - Osteomyelitis, unspecified (4) Diabetic ulcer of right foot Diabetes mellitus type: other specified (including BRITT) Diabetic foot ulcer location: heel Non-pressure ulcer stage: unspecified non-pressure ulcer stage Qualified Code(s): E13.621 - Other specified diabetes mellitus with foot ulcer; L97.419 - Non-pressure chronic ulcer of right heel and midfoot with unspecified severity
[2023-07-25] MEDS: amLODIPine BESYLATE 5 MG TAB PO SCH (20:15)
[2023-07-25] MEDS: TAMSULOSIN HCL 0.4 MG CAP PO SCH (20:15)
[2023-07-25] MEDS: hydrOXYzine HCl 25 MG TAB PO SCH (20:16)
[2023-07-25] MEDS: TRIMETHOPRIM/POLYMYXIN B OP SCH (20:47)
[2023-07-26] MEDS: ACETAMINOPHEN 500 MG TAB PO SCH ×3 (05:40→21:00)
[2023-07-26] MEDS: LEVOTHYROXINE SODIUM 150 MCG TABLET PO SCH (05:40)
[2023-07-26 07:23] LABS: Hematocrit (blood only) 27.2 % (42.0-52.0); Hemoglobin 8.8 g/dl (14.0-18.0); Mean Corpuscular Hemoglobin 28.9 pg (25.0-34.0); Mean Corpuscular Hgb Conc 32.4 g/dL (32.0-36.0); Mean Corpuscular Volume 89.2 fL (80.0-100.0); Mean Platelet Volume 8.6 fL (9.4-12.4); Platelet Count 377 K/uL (130-400); RDW Coefficient of Variation 16.1 % (11.5-14.5); RDW Standard Deviation 51.8 fL (36.4-46.3); Red Blood Count 3.05 M/uL (4.70-6.10); White Blood Count 9.17 K/ul (4.8-10.8)
[2023-07-26 07:44] LABS: BUN Creatinine Ratio 19.1 (10-20); C Reactive Protein 0.53 mg/dl (0-0.5); Calcium 7.7 mg/dl (8.6-10.3); Creatinine Clr Calc Pharmacy 37.5 ml/min; Est GFR (African American) 36.6 ml/min; Est GFR (Non-African American) 31.6 ml/min; Potassium 4.5 mmol/L (3.5-5.1)
--- NOTE | 2023-07-26 09:08 | Hospitalist Progress Note ---
Date of Service July 25, 2023 (pt seen on 07/25, note documentation placed on 07/26) Assessment & Plan (1) Osteomyelitis: (2) Diabetic ulcer of right foot: (3) Diabetic infection of right foot: (4) Diabetes mellitus type 1: (5) HTN (hypertension): (6) COVID-19: (7) Chronic hyperkalemia: (8) CKD (chronic kidney disease), stage III: (9) Chronic anemia: (10) Hypothyroidism: (11) Depression: Plan 58-year-old male with PMHx significant for DM type I, CKD stage III, diabetic neuropathy, HTN, hypothyroidism, chronic hyperkalemia, chronic anemia admitted with osteomyelitis of right heel. Osteomyelitis Diabetic ulcer of right foot Diabetic infection of right foot Patient presenting from [facility] for evaluation of worsening right heel wound. Recently admitted to [facility] 05/19 through 05/28 for polymicrobial right heel wound. Patient was discharged on IV ertapenem and oral amoxicillin. Completed antibiotic courses on 06/02. Heel worsening since then, presented for reevaluation Hemodynamically stable on admission, not septic CT right foot suggesting signs of early osteomyelitis of the right calcaneus MRI of the right ankle confirming osteomyelitis Wound Cx from 05/19 growing MRSA and GBS currently, MRSA sensitive to Vancomycin Podiatry consult with Dr. Stout- appreciate recs -s/p right heel wound debridement and calcaneal ostectomy with application wound vac on 07/20 -deep wound Cx obtained-currently growing MRSA and GBS -bone pathology sample- currently growing MRSA and GBS Was on Vancomycin and Meropenem, meropenem discontinued as Vancomycin covers both MRSA and GBS Continue with only Vancomycin ID consult for further recs for discharge-given culture grew VRE on 07/25, vanco was switched to dapto and recs for 6 weeks. Per nurse navigator and CM, assisted will only take IV abx after discharge via a PICC line (not USG IV), consider PICC line placement closer to discharge He was consented for PICC on 07/25 and order placed. Cont dapto x 6 weeks. CK in am. Diabetes mellitus, Type 1 Hgb A1c 6.8 06/2023 Noted to be hypoglycemic on labs, glucose 60, asymptomatic Cont insulin with close monitoring HTN (hypertension) Hypertensive with BP 185/117 on admission Hydralazine 10 mg IV x 1 Currently not on antihypertensives, history of orthostatic hypotension previously on midodrine BP still above goal--trial amlodipine increased to 10mg qHS COVID-19 Patient tested positive for COVID-19 reports infection 2 weeks [employer] with mild symptoms currently asymptomatic Chronic hyperkalemia K+ 5.0 on admission Continue Veltassa CKD (chronic kidney disease), stage III: Baseline creatinine low - mid 2s Creatinine at baseline on admission Avoid nephrotoxic meds Continue renal meds-dialyvyte, sodium bicarb Continue to monitor Chronic anemia In the setting of CKD Recent baseline ~7, currently 10.8 on admission Receives Procrit injections weekly Hypothyroidism Chronic, stable Continue levothyroxine Depression Chronic, stable Continue home meds DVT PROPHYLAXIS: SQ heparin currently on hold in will-op setting Diet: DMII CODE STATUS: Full code Dispo: d/c back to [facility] once antibiotics can be set up. Patient also now has a wound vac in place. Defer to podiatry for how long this should stay on, which may also impact his discharge with arranging equipment as needed. Kenya Cagle [facility] Ad[facility] and Anticipated Discharge Date Admission Date: July 19, 2023 Subjective 58 yo incarcerated man who is wheelchair bound with peripheral neuropathy presents with osteomyelitis s/p partial ostectomy of calcaneus on 07/20. Doing well post op denies pain tolerating PO afebrile VRE grew in culture--switched vanco to dapto Physical Exam Physical Exam: CONSTITUTIONAL: WNWD, vitals as above, generally well-appearing, NAD EYES: normal conjunctivae, no scleral icterus ENT: external ear and nose normal, MMM NECK: trachea midline, RESPIRATORY: clear to auscultation bilaterally, no crackles, rales or wheezes, normal respiratory effort CARDIOVASCULAR: regular rate and rhythm, S1 and 2 heard without murmurs, gallops or rubs, no JVD, no peripheral edema, CHEST: inspection of chest was normal GASTROINTESTINAL: soft, nontender, ND, no guarding MUSCULOSKELETAL: strength 5/5 throughout, head is normocephalic and atraumatic, extremities are warm and well perfused. SKIN: warm and dry, surgical site covered with dressing that is c/d/i NEUROLOGIC: CN 2-12 grossly intact, no sensory deficit, normal cognition, normal speech, no tremor PSYCHIATRIC: alert cooperative and oriented to person, place and time. Euthymic mood, makes good eye contact, language grossly intact, recent and remote memory grossly intact. Results & Data Results & Data Vital Signs (Past 12 Hours) Vital Signs Temp Pulse Resp BP Pulse Ox O2 Del Method 07/26/23 07:02 36.7 C 78 16 149/77 H 98 Room Air (1) Osteomyelitis Laterality: left Osteomyelitis location: ankle Osteomyelitis type: unspecified type Qualified Code(s): M86.9 - Osteomyelitis, unspecified (2) Diabetic ulcer of right foot Diabetes mellitus type: other specified (including BRITT) Diabetic foot ulcer location: heel Non-pressure ulcer stage: unspecified non-pressure ulcer stage Qualified Code(s): E13.621 - Other specified diabetes mellitus with foot ulcer; L97.419 - Non-pressure chronic ulcer of right heel and midfoot with unspecified severity
[2023-07-26] MEDS: INSULIN ASPART PER UNIT CHARGE SC SCH ×4 (09:12→20:57)
[2023-07-26] MEDS: FOLIC ACID 1 MG TAB PO SCH (09:20)
[2023-07-26] MEDS: PANTOprazole 40 MG TAB PO SCH ×2 (09:20→20:27)
[2023-07-26] MEDS: ADVANCED PROBIOTIC 1250 MG CAPSULE PO SCH (09:20)
[2023-07-26] MEDS: SODIUM BICARBONATE 650 MG TAB PO SCH ×2 (09:20→20:27)
[2023-07-26] MEDS: ASPIRIN 81 MG ECTAB PO SCH (09:20)
[2023-07-26] MEDS: FLUoxetine HCL 20 MG CAP PO SCH (09:20)
[2023-07-26] MEDS: METOCLOPRAMIDE HCL 10 MG TABLET PO SCH ×2 (09:20→17:46)
[2023-07-26] MEDS: CYANOCOBALAMIN (B-12) 100 MCG TABLET PO SCH (09:20)
[2023-07-26] MEDS: TRIMETHOPRIM/POLYMYXIN B OP SCH ×4 (09:21→20:27)
[2023-07-26] MEDS: DAPTOmycin 600 MG in SYRINGE 0 ML IV SCH (15:14)
[2023-07-26] MEDS: PATIROMER CALCIUM SORBITEX 8.4 GM PACK PO SCH ×2 (15:16→15:18)
--- NOTE | 2023-07-26 15:45 | Hospitalist Progress Note ---
Date of Service July 26, 2023 Assessment & Plan (1) Osteomyelitis: (2) Diabetic ulcer of right foot: (3) Diabetic infection of right foot: (4) Diabetes mellitus type 1: (5) HTN (hypertension): (6) COVID-19: (7) Chronic hyperkalemia: (8) CKD (chronic kidney disease), stage III: (9) Chronic anemia: (10) Hypothyroidism: (11) Depression: Plan 58-year-old male with PMHx significant for DM type I, CKD stage III, diabetic neuropathy, HTN, hypothyroidism, chronic hyperkalemia, chronic anemia admitted with osteomyelitis of right heel. Osteomyelitis Diabetic ulcer of right foot Diabetic infection of right foot Patient presenting from [facility] for evaluation of worsening right heel wound. Recently admitted to [facility] 05/19 through 05/28 for polymicrobial right heel wound. Patient was discharged on IV ertapenem and oral amoxicillin. Completed antibiotic courses on 06/02. Heel worsening since then, presented for reevaluation CT right foot suggesting signs of early osteomyelitis of the right calcaneus MRI of the right ankle confirming osteomyelitis Wound Cx from 05/20growing MRSA and GBS and VRE. Podiatry consult with Dr. Stout- appreciate recs -s/p right heel wound debridement and calcaneal ostectomy with application wound vac on 07/20 -deep wound Cx obtained-currently growing MRSA and GBS -bone pathology sample- currently growing MRSA and GBS Was on Vancomycin and Meropenem, meropenem discontinued. Switched over to dapt omycin on 07/25. ID consult for further recs for discharge-given culture grew VRE on 07/25, vanco was switched to dapto and recs for 6 weeks. Per nurse navigator and CM, fci will only take IV abx after discharge via a PICC line (not USG IV) Discussed with [facility] At the present. Daptomycin to be ordered. Discharge when daptomycin is in place at the present. Diabetes mellitus, Type 1 Hgb A1c 6.8 06/2023 Noted to be hypoglycemic on labs, glucose 60, asymptomatic Cont insulin with close monitoring HTN (hypertension) Currently not on antihypertensives, history of orthostatic hypotension previously on midodrine On amlodipine 10 mg COVID-19 Patient tested positive for COVID-19 reports infection 2 weeks [employer] with mild symptoms currently asymptomatic Chronic hyperkalemia K+ 5.0 on admission Continue Veltassa CKD (chronic kidney disease), stage III: Baseline creatinine low - mid 2s Creatinine at baseline on admission Avoid nephrotoxic meds Continue renal meds-dialyvyte, sodium bicarb Continue to monitor Chronic anemia In the setting of CKD Recent baseline ~7, currently 10.8 on admission Receives Procrit injections weekly Hypothyroidism Chronic, stable Continue levothyroxine Depression Chronic, stable Continue home meds DVT PROPHYLAXIS: SQ heparin currently on hold in will-op setting Diet: DMII CODE STATUS: Full code Dispo: d/c back to [facility] once antibiotics can be set up. Discussed with physician at [facility] . Patient also now has a wound vac in place. Please note the above document was generated using voice recognition software. It may contain grammatical, syntax or spelling errors. Any formal questions or concerns about the content, text or information contained within the body of this dictation should be directly addressed to the provider for clarification Admission and Anticipated Discharge Date Admission Date: July 19, 2023 Subjective Patient seen and examined at bedside. He is lying in the bed comfortably. Denies fever, chills, chest pain or shortness of breath. Review of Systems Review of Systems: All systems reviewed & are unremarkable except as noted in Subjective Physical Exam Physical Exam: Constitutional: WD/WN, vitals as above, NAD, sitting up in bed, pleasant, conversing easily Respiratory: normal respiratory effort, lungs clear to auscultation, no wheeze, rales, rhonchi. Normal insp/exp effort, no accessory muscle use Cardiovascular: RRR, no murmur, no edema Vessels: no JVD or carotid bruit Chest: normal inspection of chest Abdomen: normal bowel sounds, soft, nontender, no hepatosplenomegaly Musculoskeletal: Wound VAC present on right foot. Dressing in place; clean dry and intact. Skin: no rashes, warm and dry normal turgor Neurologic: PERRL, EOMI, accommodation nl, no face palsy, no dysarthria CN's II- XI intact bilaterally and moves all extremities Psychiatric: A+Ox3, euthymic affect Results & Data Results & Data Vital Signs (Past 12 Hours) Vital Signs Temp Pulse Resp BP Pulse Ox O2 Del Method 07/26/23 13:55 36.8 C 75 16 112/67 99 Room Air 07/26/23 07:02 36.7 C 78 16 149/77 H 98 Room Air (1) Osteomyelitis Laterality: left Osteomyelitis location: ankle Osteomyelitis type: unspecified type Qualified Code(s): M86.9 - Osteomyelitis, unspecified (2) Diabetic ulcer of right foot Diabetes mellitus type: other specified (including BRITT) Diabetic foot ulcer location: heel Non-pressure ulcer stage: unspecified non-pressure ulcer stage Qualified Code(s): E13.621 - Other specified diabetes mellitus with foot ulcer; L97.419 - Non-pressure chronic ulcer of right heel and midfoot with unspecified severity
[2023-07-26] MEDS: amLODIPine BESYLATE 5 MG TAB PO SCH (20:26)
[2023-07-26] MEDS: TAMSULOSIN HCL 0.4 MG CAP PO SCH (20:27)
[2023-07-26] MEDS: hydrOXYzine HCl 25 MG TAB PO SCH (20:29)
[2023-07-26] MEDS: HEPARIN SOD 5,000 UNIT/0.5 ML VIAL SQ SCH (21:00)
--- NOTE | 2023-07-26 21:50 | Orthopedic Progress Note ---
Date of Service July 26, 2023 Assessment & Plan (1) Osteomyelitis: Plan: Patient seen and evaluated in [facility]- resting comfortably in bed with no complaints. Patient is status post day #6 partial ostectomy of calcaneus (DOS: 07/20/23). Wound vac intact and running 125mmHg as directed. No other intervention planned at this time. Will continue to follow while in house. (2) Cellulitis of right foot: (3) Anemia: Admission and Anticipated Discharge Date Admission Date: July 19, 2023 Subjective Patient seen and examined at bedside in [facility]- resting comfortably. Physical Exam Constitutional: + frail appearing, cooperative and comfo rtable Eyes: normal visual case by confrontation Neck: normal visual inspection Respiratory: normal respiratory effort Cardiovascular: Rate/Rhythm: regular rate and regular rhythm Musculoskeletal: Extremities: extremities normal to inspection Skin: + ulcer (Right full thickness heel wound with exposed bone. Healthy bleeding tissue.) Psychiatric: Orientation: alert and oriented x 3 Results & Data Vital Signs (Past 12 Hours) Vital Signs Temp Pulse Resp BP Pulse Ox O2 Del Method 07/26/23 20:24 36.9 C 83 16 146/80 H 98 Room Air 07/26/23 13:55 36.8 C 75 16 112/67 99 Room Air (1) Osteomyelitis Laterality: right Osteomyelitis location: foot Osteomyelitis type: unspecified type Qualified Code(s): M86.9 - Osteomyelitis, unspecified (3) Anemia Anemia type: unspecified type Qualified Code(s): D64.9 - Anemia, unspecified
[2023-07-27] MEDS: LEVOTHYROXINE SODIUM 150 MCG TABLET PO SCH (05:36)
[2023-07-27] MEDS: ACETAMINOPHEN 500 MG TAB PO SCH ×3 (05:36→20:31)
[2023-07-27] MEDS: HEPARIN SOD 5,000 UNIT/0.5 ML VIAL SQ SCH ×3 (05:36→20:21)
[2023-07-27 07:28] LABS: BUN Creatinine Ratio 25.7 (10-20); Calcium 7.7 mg/dl (8.6-10.3); Creatinine Clr Calc Pharmacy 39.3 ml/min; Est GFR (African American) 38.8 ml/min; Est GFR (Non-African American) 33.4 ml/min; Potassium 4.6 mmol/L (3.5-5.1)
[2023-07-27 07:33] LABS: Basophils # (auto) 0.21 K/uL (0.00-0.20); Basophils % (auto) 2.3 %; Eosinophils # (auto) 0.51 K/uL (0.00-0.50); Eosinophils % (auto) 5.7 %; Hematocrit (blood only) 27.6 % (42.0-52.0); Hemoglobin 8.7 g/dl (14.0-18.0); Immature Granulocytes # (auto) 0.03 K/uL (0.01-0.20); Immature Granulocytes % (auto) 0.3 %; Lymphocytes # (auto) 2.75 K/uL (1.20-3.40); Lymphocytes % (auto) 30.5 %; Mean Corpuscular Hemoglobin 28.4 pg (25.0-34.0); Mean Corpuscular Hgb Conc 31.5 g/dL (32.0-36.0); Mean Corpuscular Volume 90.2 fL (80.0-100.0); Mean Platelet Volume 9.6 fL (9.4-12.4); Monocytes # (auto) 0.79 K/uL (0.11-0.59); Monocytes % (auto) 8.8 %; Neutrophils # (auto) 4.73 K/uL (1.40-6.50); Neutrophils % (auto) 52.4 %; Platelet Count 423 K/uL (130-400); RDW Coefficient of Variation 16.1 % (11.5-14.5); RDW Standard Deviation 52.3 fL (36.4-46.3); Red Blood Count 3.06 M/uL (4.70-6.10); White Blood Count 9.02 K/ul (4.8-10.8)
[2023-07-27] MEDS: METOCLOPRAMIDE HCL 10 MG TABLET PO SCH ×2 (08:44→17:04)
[2023-07-27] MEDS: CHOLECALCIFEROL 1,000 UNITS 25 MCG TAB PO SCH (08:44)
[2023-07-27] MEDS: TRIMETHOPRIM/POLYMYXIN B OP SCH ×4 (08:44→20:20)
[2023-07-27] MEDS: ASPIRIN 81 MG ECTAB PO SCH (08:44)
[2023-07-27] MEDS: FLUoxetine HCL 20 MG CAP PO SCH (08:45)
[2023-07-27] MEDS: FOLIC ACID 1 MG TAB PO SCH (08:45)
[2023-07-27] MEDS: ADVANCED PROBIOTIC 1250 MG CAPSULE PO SCH (08:45)
[2023-07-27] MEDS: SODIUM BICARBONATE 650 MG TAB PO SCH ×2 (08:45→20:30)
[2023-07-27] MEDS: CYANOCOBALAMIN (B-12) 100 MCG TABLET PO SCH (08:45)
[2023-07-27] MEDS: PANTOprazole 40 MG TAB PO SCH ×2 (08:45→20:31)
[2023-07-27] MEDS: INSULIN ASPART PER UNIT CHARGE SC SCH ×4 (09:06→21:00)
[2023-07-27] MEDS ORDERED: INSULIN ASPART PER UNIT CHARGE SC STA (10:45)
[2023-07-27] MEDS ORDERED: PHARMACY GLYCEMIC MGMT CONSULT PRN (10:45)
[2023-07-27] MEDS ORDERED: LANTUS PER UNIT CHARGE SQ SCH (11:00)
[2023-07-27] MEDS: PATIROMER CALCIUM SORBITEX 8.4 GM PACK PO SCH (12:02)
[2023-07-27] MEDS ORDERED: INSULIN HUMAN REGULAR PER UNIT 7 UNITS in SYRINGE 6.93 ML IV SCH (13:30)
[2023-07-27] MEDS: DAPTOmycin 600 MG in SYRINGE 0 ML IV SCH (13:35)
--- NOTE | 2023-07-27 14:41 | Pharmacy Report ---
Pharmacy Glycemic Short Note 2 - Date of Service July 27, 2023 - Glycemic Short BSG Results (Last 24 hours): 07/26/23 07/26/23 07/27/23 16:31 20:44 06:24 Glucose 326 H* POC Glucose 118 H 290 H 07/27/23 07/27/23 07/27/23 08:02 08:03 10:36 Glucose POC Glucose 323 H* 314 H* 378 H* 07/27/23 07/27/23 07/27/23 11:37 11:39 13:11 Glucose POC Glucose 405 H* 371 H* 380 H* 07/27/23 13:12 Glucose POC Glucose 391 H* OUTPATIENT ANTIDIABETIC REGIMEN: * Insulin glargine 14 units SC daily * Regular Insulin 2 units SC BID with lunch and dinner + sliding scale prn HbA1c = 6.8% ASSESSMENT: * 58 y/o M admitted with Osteomyelitis currently on IV antibiotic therapy. He is a Type 1 diabetic managed on basal and bolus insulins at home. * Patient was admitted on 07/19/23 and basal insulin home dose was started for him at the time. However, BSGs trended down and he refused his dose on 07/24/23. Since then his basal insulin was held which has contributed to high blood sugars today. Pharmacy consulted for glycemic management. * Currently basal insulin 14 units given this morning and ongoing QAM. This dose may need adjusted down. * Novolog parameters continued as ordered yesterday but since hyperglycemia at breakfast and lunch checks, loosened parameters slightly at lunch so that she would not stack on insulin doses and become hypoglycemic later on. Additionally 7 units of IV bolus insulin was also given due to persistent hyperglycemia. * Novolog parameter tightened back up at dinner. PLAN FOR INPATIENT GLYCEMIC CONTROL: * Basal insulin * Lantus 14 units SQ QAM * Bolus insulin * NovoLog per scale ACHS or Q6hrs while NPO * Goal Range: Low 120 mg/dL - High 150 mg/dL * Correction Factor: 30 mg/dL/unit * Nutritional / Prandial insulin per carb ratio of 1 unit per 11 grams CHO consumed
--- NOTE | 2023-07-27 14:48 | Hospitalist Progress Note ---
Date of Service July 27, 2023 Assessment & Plan (1) Osteomyelitis: (2) Diabetic ulcer of right foot: (3) Diabetic infection of right foot: (4) Diabetes mellitus type 1: (5) HTN (hypertension): (6) COVID-19: (7) Chronic hyperkalemia: (8) CKD (chronic kidney disease), stage III: (9) Chronic anemia: (10) Hypothyroidism: (11) Depression: Plan 58-year-old male with PMHx significant for DM type I, CKD stage III, diabetic neuropathy, HTN, hypothyroidism, chronic hyperkalemia, chronic anemia admitted with osteomyelitis of right heel. Osteomyelitis Diabetic ulcer of right foot Diabetic infection of right foot Patient presenting from [facility] for evaluation of worsening right heel wound. Recently admitted to [facility] 05/19 through 05/28 for polymicrobial right heel wound. Patient was discharged on IV ertapenem and oral amoxicillin. Completed antibiotic courses on 06/02. Heel worsening since then, presented for reevaluation CT right foot suggesting signs of early osteomyelitis of the right calcaneus MRI of the right ankle confirming osteomyelitis Wound Cx from 05/20 growing MRSA and GBS and VRE. Podiatry consult with Dr. Stout- appreciate recs -s/p right heel wound debridement and calcaneal ostectomy with application wound vac on 07/20 -deep wound Cx obtained-currently growing MRSA and GBS -bone pathology sample- currently growing MRSA and GBS Was on Vancomycin and Meropenem, meropenem discontinued. Switched over to dap tomycin on 07/25. ID consult for further recs for discharge-given culture grew VRE on 07/25, vanco was switched to dapto and recs for 6 weeks. Per nurse navigator and CM, longterm will only take IV abx after discharge via a PICC line (not USG IV) [facility]. Discharge when daptomycin is in place at the longterm. Diabetes mellitus, Type 1 Hgb A1c 6.8 06/2023 Noted to be hypoglycemic on labs, glucose 60, asymptomatic Cont insulin with close monitoring HTN (hypertension) Currently not on antihypertensives, history of orthostatic hypotension previously on midodrine On amlodipine 10 mg COVID-19 Patient tested positive for COVID-19 reports infection 2 weeks [employer] with mild symptoms currently asymptomatic Chronic hyperkalemia K+ 5.0 on admission Continue Veltassa CKD (chronic kidney disease), stage III: Baseline creatinine low - mid 2s Creatinine at baseline on admission Avoid nephrotoxic meds Continue renal meds-dialyvyte, sodium bicarb Continue to monitor Chronic anemia In the setting of CKD Recent baseline ~7, currently 10.8 on admission Receives Procrit injections weekly Hypothyroidism Chronic, stable Continue levothyroxine Depression Chronic, stable Continue home meds DVT PROPHYLAXIS: SQ heparin Diet: DMII CODE STATUS: Full code Dispo: d/c back to [facility] once antibiotics can be set up. Discussed with physician at [facility] . Patient also now has a wound vac in place. Please note the above document was generated using voice recognition software. It may contain grammatical, syntax or spelling errors. Any formal questions or concerns about the content, text or information contained within the body of this dictation should be directly addressed to the provider for clarification Admission and Anticipated Discharge Date Admission Date: July 19, 2023 Subjective Patient seen and examined at bedside. Is comfortably lying on the bed; not in distress. He denies fever, chills, chest pain, shortness of breath or abdominal pain. Review of Systems Review of Systems: All systems reviewed & are unremarkable except as noted in Subjective Physical Exam Physical Exam: Constitutional: WD/WN, vitals as above, NAD, sitting up in bed, pleasant, conversing easily Respiratory: normal respiratory effort, lungs clear to auscultation, no wheeze, rales, rhonchi. Normal insp/exp effort, no accessory muscle use Cardiovascular: RRR, no murmur, no edema Vessels: no JVD or carotid bruit Chest: normal inspection of chest Abdomen: normal bowel sounds, soft, nontender, no hepatosplenomegaly Musculoskeletal: Wound VAC present on right foot. Dressing in place; clean dry and intact. Skin: no rashes, warm and dry normal turgor Neurologic: PERRL, EOMI, accommodation nl, no face palsy, no dysarthria CN's II- XI intact bilaterally and moves all extremities Psychiatric: A+Ox3, euthymic affect Results & Data Results & Data Vital Signs (Past 12 Hours) Vital Signs Temp Pulse Pulse Resp BP BP Pulse Ox 07/27/23 14:42 36.7 C 78 16 110/62 98 07/27/23 08:04 36.7 C 83 16 148/78 H 96 07/27/23 07:53 O2 Del Method 07/27/23 14:42 Room Air 07/27/23 08:04 Room Air 07/27/23 07:53 Room Air (1) Osteomyelitis Laterality: left Osteomyelitis location: ankle Osteomyelitis type: unspecified type Qualified Code(s): M86.9 - Osteomyelitis, unspecified (2) Diabetic ulcer of right foot Diabetes mellitus type: other specified (including BRITT) Diabetic foot ulcer location: heel Non-pressure ulcer stage: unspecified non-pressure ulcer stage Qualified Code(s): E13.621 - Other specified diabetes mellitus with foot ulcer; L97.419 - Non-pressure chronic ulcer of right heel and midfoot with unspecified severity
--- NOTE | 2023-07-27 19:04 | XRay Report ---
XR chest 1V portable HISTORY: PICC line placement to left arm COMPARISON: Chest 05/19/2023. FINDINGS: No pneumothorax. No pleural effusions. The heart is normal in size. Bibasilar linear densit ies favor subsegmental atelectasis or scarring. No evidence for pulmonary edema. A left PICC terminat es in the SVC. IMPRESSION: The left PICC terminates in the SVC. ACT 112: Negative or not required by law. Electronically signed by: Tani Contreras M.D. 07/27/2023 7:03 PM
[2023-07-27] MEDS: TAMSULOSIN HCL 0.4 MG CAP PO SCH (20:21)
[2023-07-27] MEDS: amLODIPine BESYLATE 5 MG TAB PO SCH (20:21)
[2023-07-27] MEDS: hydrOXYzine HCl 25 MG TAB PO SCH (20:32)
[2023-07-27] MEDS: CARBOHYDRATES FOR HYPOGLYCEMIA PO PRN (21:04)
[2023-07-27] MEDS: DEXTROSE 50% 50 ML SYRINGE IV PRN (21:32)
[2023-07-28] MEDS: HEPARIN SOD 5,000 UNIT/0.5 ML VIAL SQ SCH ×3 (05:52→20:59)
[2023-07-28] MEDS: LEVOTHYROXINE SODIUM 150 MCG TABLET PO SCH (05:52)
[2023-07-28] MEDS: ACETAMINOPHEN 500 MG TAB PO SCH ×3 (05:52→21:05)
[2023-07-28 07:25] LABS: Basophils # (auto) 0.11 K/uL (0.00-0.20); Basophils % (auto) 1.3 %; Eosinophils # (auto) 0.39 K/uL (0.00-0.50); Eosinophils % (auto) 4.8 %; Hematocrit (blood only) 28.2 % (42.0-52.0); Hemoglobin 8.7 g/dl (14.0-18.0); Immature Granulocytes # (auto) 0.03 K/uL (0.01-0.20); Immature Granulocytes % (auto) 0.4 %; Lymphocytes # (auto) 2.13 K/uL (1.20-3.40); Lymphocytes % (auto) 26.1 %; Mean Corpuscular Hemoglobin 28.3 pg (25.0-34.0); Mean Corpuscular Hgb Conc 30.9 g/dL (32.0-36.0); Mean Corpuscular Volume 91.9 fL (80.0-100.0); Mean Platelet Volume 8.9 fL (9.4-12.4); Monocytes # (auto) 0.67 K/uL (0.11-0.59); Monocytes % (auto) 8.2 %; Neutrophils # (auto) 4.84 K/uL (1.40-6.50); Neutrophils % (auto) 59.2 %; Platelet Count 414 K/uL (130-400); RDW Coefficient of Variation 16.4 % (11.5-14.5); RDW Standard Deviation 54.9 fL (36.4-46.3); Red Blood Count 3.07 M/uL (4.70-6.10); White Blood Count 8.17 K/ul (4.8-10.8)
[2023-07-28 07:30] LABS: BUN Creatinine Ratio 24.8 (10-20); Calcium 7.9 mg/dl (8.6-10.3); Creatinine Clr Calc Pharmacy 39.3 ml/min; Est GFR (African American) 38.8 ml/min; Est GFR (Non-African American) 33.4 ml/min; Potassium 4.5 mmol/L (3.5-5.1)
[2023-07-28] MEDS: METOCLOPRAMIDE HCL 10 MG TABLET PO SCH ×2 (08:12→17:14)
[2023-07-28] MEDS: TRIMETHOPRIM/POLYMYXIN B OP SCH ×4 (08:12→20:59)
[2023-07-28] MEDS: CYANOCOBALAMIN (B-12) 100 MCG TABLET PO SCH (08:13)
[2023-07-28] MEDS: ASPIRIN 81 MG ECTAB PO SCH (08:13)
[2023-07-28] MEDS: FLUoxetine HCL 20 MG CAP PO SCH (08:13)
[2023-07-28] MEDS: PANTOprazole 40 MG TAB PO SCH ×2 (08:13→20:59)
[2023-07-28] MEDS: FOLIC ACID 1 MG TAB PO SCH (08:13)
[2023-07-28] MEDS: ADVANCED PROBIOTIC 1250 MG CAPSULE PO SCH (08:13)
[2023-07-28] MEDS: SODIUM BICARBONATE 650 MG TAB PO SCH ×2 (08:14→20:59)
[2023-07-28] MEDS: INSULIN ASPART PER UNIT CHARGE SC SCH ×4 (08:20→21:03)
[2023-07-28] MEDS: LANTUS PER UNIT CHARGE SC SCH (08:21)
[2023-07-28] MEDS ORDERED: LANTUS PER UNIT CHARGE SC SCH (09:00)
--- NOTE | 2023-07-28 09:19 | Pharmacy Report ---
Pharmacy Glycemic Short Note 2 - Date of Service July 28, 2023 - Glycemic Short BSG Results (Last 24 hours): 07/27/23 07/27/23 07/27/23 10:36 11:37 11:39 Glucose POC Glucose 378 H* 405 H* 371 H* 07/27/23 07/27/23 07/27/23 13:11 13:12 14:39 Glucose POC Glucose 380 H* 391 H* 243 H 07/27/23 07/27/23 07/27/23 15:36 16:27 20:51 Glucose POC Glucose 139 H 88 53 L* 07/27/23 07/27/23 07/27/23 20:57 21:19 21:55 Glucose POC Glucose 54 L* 56 L* 183 H 07/28/23 07/28/23 06:41 07:15 Glucose 242 H POC Glucose 220 H OUTPATIENT ANTIDIABETIC REGIMEN: * Insulin glargine 14 units SC daily * Regular Insulin 2 units SC BID with lunch and dinner + sliding scale prn HbA1c = 6.8% (07/20/23) ASSESSMENT: 07/28/23: * BSGs were trending down nicely yesterday, but unfortunately patient with hypoglycemia at bedtime (BSG of 53 mg/dL) * Received 43 units of insulin yesterday (14 units of basal and 29 units of prandial/correctional bolus) * Will be slightly conservative w/ insulin regimen today to avoid hypoglycemia 07/27/23: * 58 y/o M admitted with Osteomyelitis currently on IV antibiotic therapy. He is a Type 1 diabetic managed on basal and bolus insulins at home. * Patient was admitted on 07/19/23 and basal insulin home dose was started for him at the time. However, BSGs trended down and he refused his dose on 07/24/23. Since then his basal insulin was held which has contributed to high blood sugars today. Pharmacy consulted for glycemic management. * Currently basal insulin 14 units given this morning and ongoing QAM. This dose may need adjusted down. * Novolog parameters continued as ordered yesterday but since hyperglycemia at breakfast and lunch checks, loosened parameters slightly at lunch so that she would not stack on insulin doses and become hypoglycemic later on. Additionally 7 units of IV bolus insulin was also given due to persistent hyperglycemia. * Novolog parameter tightened back up at dinner. PLAN FOR INPATIENT GLYCEMIC CONTROL: * Basal insulin - decrease * Lantus 12 units SQ QAM * Bolus insulin - loosen * NovoLog per scale ACHS or Q6hrs while NPO * Goal Range: Low 120 mg/dL - High 150 mg/dL * Correction Factor: 40 mg/dL/unit * Nutritional / Prandial insulin per carb ratio of 1 unit per 20 grams CHO consumed
[2023-07-28] MEDS: EPOETIN ALFA 10,000 UNITS/ML VIAL SQ SCH (10:42)
[2023-07-28] MEDS: PATIROMER CALCIUM SORBITEX 8.4 GM PACK PO SCH (12:00)
[2023-07-28] MEDS: DAPTOmycin 600 MG in SYRINGE 0 ML IV SCH (13:10)
--- NOTE | 2023-07-28 13:47 | Hospitalist Progress Note ---
Date of Service July 28, 2023 Assessment & Plan (1) Osteomyelitis: (2) Diabetic ulcer of right foot: (3) Diabetic infection of right foot: (4) Diabetes mellitus type 1: (5) HTN (hypertension): (6) COVID-19: (7) Chronic hyperkalemia: (8) CKD (chronic kidney disease), stage III: (9) Chronic anemia: (10) Hypothyroidism: (11) Depression: Plan 58-year-old male with PMHx significant for DM type I, CKD stage III, diabetic neuropathy, HTN, hypothyroidism, chronic hyperkalemia, chronic anemia admitted with osteomyelitis of right heel. Osteomyelitis Diabetic ulcer of right foot Diabetic infection of right foot Patient presenting from [facility] for evaluation of worsening right heel wound. Recently admitted to [facility] 05/19 through 05/28 for polymicrobial right heel wound. Patient was discharged on IV ertapenem and oral amoxicillin. Completed antibiotic courses on 06/02. Heel worsening since then, presented for reevaluation CT right foot suggesting signs of early osteomyelitis of the right calcaneus MRI of the right ankle confirming osteomyelitis Wound Cx from 05/20 growing MRSA and GBS and VRE. Podiatry consult with Dr. Stout- appreciate recs -s/p right heel wound debridement and calcaneal ostectomy with application wound vac on 07/20 -deep wound Cx obtained-currently growing MRSA and GBS -bone pathology sample- currently growing MRSA and GBS Was on Vancomycin and Meropenem, meropenem discontinued. Switched over to dap tomycin on 07/25. ID consult for further recs for discharge-given culture grew VRE on 07/25, vanco was switched to dapto and recs for 6 weeks. Discussed with [facility] Doctor At the custodial on July 26, 2023. Discharge when daptomycin and wound VAC arein place at the custodial. 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[employer] with mild symptoms currently asymptomatic Chronic hyperkalemia K+ 5.0 on admission Continue Veltassa CKD (chronic kidney disease), stage III: Baseline creatinine low - mid 2s Creatinine at baseline on admission Avoid nephrotoxic meds Continue renal meds-dialyvyte, sodium bicarb Continue to monitor Chronic anemia In the setting of CKD Recent baseline ~7, currently 10.8 on admission Receives Procrit injections weekly Hypothyroidism Chronic, stable Continue levothyroxine Depression Chronic, stable Continue home meds DVT PROPHYLAXIS: SQ heparin Diet: DMII CODE STATUS: Full code Dispo: d/c back to [facility] once antibiotics and wound VAC are set up. Dis cussed with physician at [facility] on July 26, 2023. Please note the above document was generated using voice recognition software. It may contain grammatical, syntax or spelling errors. Any formal questions or concerns about the content, text or information contained within the body of this dictation should be directly addressed to the provider for clarification Admission and Anticipated Discharge Date Admission Date: July 19, 2023 Subjective Patient seen and examined at bedside. Patient is lying in the bed comfortably; not in distress. He denies any fever, chills, chest pain, shortness of breath or abdominal pain. Review of Systems Review of Systems: All systems reviewed & are unremarkable except as noted in Subjective Physical Exam Physical Exam: Constitutional: WD/WN, vitals as above, NAD, sitting up in bed, pleasant, conversing easily Respiratory: normal respiratory effort, lungs clear to auscultation, no wheeze, rales, rhonchi. Normal insp/exp effort, no accessory muscle use Cardiovascular: RRR, no murmur, no edema Vessels: no JVD or carotid bruit Chest: normal inspection of chest Abdomen: normal bowel sounds, soft, nontender, no hepatosplenomegaly Musculoskeletal: Wound VAC present on right foot. Dressing in place; clean dry and intact. Skin: no rashes, warm and dry normal turgor Neurologic: PERRL, EOMI, accommodation nl, no face palsy, no dysarthria CN's II- XI intact bilaterally and moves all extremities Psychiatric: A+Ox3, euthymic affect Results & Data Results & Data Vital Signs (Past 12 Hours) Vital Signs Temp Pulse Resp BP Pulse Ox O2 Del Method 07/28/23 07:15 Room Air 07/28/23 07:13 36.8 C 76 16 139/77 98 Room Air (1) Osteomyelitis Laterality: left Osteomyelitis location: ankle Osteomyelitis type: unspec ified type Qualified Code(s): M86.9 - Osteomyelitis, unspecified (2) Diabetic ulcer of right foot Diabetes mellitus type: other specified (including BRITT) Diabetic foot ulcer location: heel Non-pressure ulcer stage: unspecified non-pressure ulcer stage Qualified Code(s): E13.621 - Other specified diabetes mellitus with foot ulcer; L97.419 - Non-pressure chronic ulcer of right heel and midfoot with unspecified severity
[2023-07-28] MEDS: TAMSULOSIN HCL 0.4 MG CAP PO SCH (20:59)
[2023-07-28] MEDS: amLODIPine BESYLATE 5 MG TAB PO SCH (20:59)
[2023-07-28] MEDS: hydrOXYzine HCl 25 MG TAB PO SCH (21:06)
[2023-07-29] MEDS: HEPARIN SOD 5,000 UNIT/0.5 ML VIAL SQ SCH ×3 (05:45→21:47)
[2023-07-29] MEDS: LEVOTHYROXINE SODIUM 150 MCG TABLET PO SCH (05:45)
[2023-07-29] MEDS: ACETAMINOPHEN 500 MG TAB PO SCH ×3 (05:47→21:46)
[2023-07-29] MEDS: SODIUM BICARBONATE 650 MG TAB PO SCH ×2 (08:37→21:46)
[2023-07-29] MEDS: PANTOprazole 40 MG TAB PO SCH ×2 (08:38→21:46)
[2023-07-29] MEDS: ASPIRIN 81 MG ECTAB PO SCH (08:38)
[2023-07-29] MEDS: METOCLOPRAMIDE HCL 10 MG TABLET PO SCH ×2 (08:38→17:13)
[2023-07-29] MEDS: CYANOCOBALAMIN (B-12) 100 MCG TABLET PO SCH (08:39)
[2023-07-29] MEDS: FLUoxetine HCL 20 MG CAP PO SCH (08:39)
[2023-07-29] MEDS: FOLIC ACID 1 MG TAB PO SCH (08:39)
[2023-07-29] MEDS: TRIMETHOPRIM/POLYMYXIN B OP SCH ×4 (08:40→21:46)
[2023-07-29] MEDS: ADVANCED PROBIOTIC 1250 MG CAPSULE PO SCH (08:40)
[2023-07-29] MEDS: LANTUS PER UNIT CHARGE SC SCH (08:50)
[2023-07-29] MEDS: INSULIN ASPART PER UNIT CHARGE SC SCH ×4 (08:50→21:00)
[2023-07-29 09:45] LABS: Basophils # (auto) 0.11 K/uL (0.00-0.20); Basophils % (auto) 1.1 %; Eosinophils # (auto) 0.12 K/uL (0.00-0.50); Eosinophils % (auto) 1.3 %; Hematocrit (blood only) 30.4 % (42.0-52.0); Hemoglobin 9.4 g/dl (14.0-18.0); Immature Granulocytes # (auto) 0.02 K/uL (0.01-0.20); Immature Granulocytes % (auto) 0.2 %; Lymphocytes # (auto) 1.24 K/uL (1.20-3.40); Lymphocytes % (auto) 12.9 %; Mean Corpuscular Hemoglobin 28.6 pg (25.0-34.0); Mean Corpuscular Hgb Conc 30.9 g/dL (32.0-36.0); Mean Corpuscular Volume 92.4 fL (80.0-100.0); Monocytes % (auto) 5.2 %; Neutrophils % (auto) 79.3 %; Platelet Count 419 K/uL (130-400); RDW Coefficient of Variation 16.8 % (11.5-14.5); RDW Standard Deviation 56.2 fL (36.4-46.3); Red Blood Count 3.29 M/uL (4.70-6.10); White Blood Count 9.59 K/ul (4.8-10.8)
[2023-07-29 10:03] LABS: BUN Creatinine Ratio 21.8 (10-20); Calcium 8.4 mg/dl (8.6-10.3); Creatinine Clr Calc Pharmacy 39.1 ml/min; Est GFR (African American) 38.5 ml/min; Est GFR (Non-African American) 33.3 ml/min; Potassium 4.1 mmol/L (3.5-5.1)
[2023-07-29] MEDS: PATIROMER CALCIUM SORBITEX 8.4 GM PACK PO SCH (12:33)
--- NOTE | 2023-07-29 14:45 | Hospitalist Progress Note ---
Date of Service July 29, 2023 Assessment & Plan (1) Osteomyelitis: (2) Diabetic ulcer of right foot: (3) Diabetic infection of right foot: (4) Diabetes mellitus type 1: (5) HTN (hypertension): (6) COVID-19: (7) Chronic hyperkalemia: (8) CKD (chronic kidney disease), stage III: (9) Chronic anemia: (10) Hypothyroidism: (11) Depression: Plan 58-year-old male with PMHx significant for DM type I, CKD stage III, diabetic neuropathy, HTN, hypothyroidism, chronic hyperkalemia, chronic anemia admitted with osteomyelitis of right heel. Osteomyelitis Diabetic ulcer of right foot Diabetic infection of right foot Patient presenting from [facility] for evaluation of worsening right heel wound. Recently admitted to [facility] 05/19 through 05/28 for polymicrobial right heel wound. Patient was discharged on IV ertapenem and oral amoxicillin. Completed antibiotic courses on 06/02. Heel worsening since then, presented for reevaluation CT right foot suggesting signs of early osteomyelitis of the right calcaneus MRI of the right ankle confirming osteomyelitis Wound Cx from 05/20 growing MRSA and GBS and VRE. Podiatry consult with Dr. Stout- appreciate recs -s/p right heel wound debridement and calcaneal ostectomy with application wound vac on 07/20 -deep wound Cx obtained-currently growing MRSA and GBS -bone pathology sample- currently growing MRSA and GBS Was on Vancomycin and Meropenem, meropenem discontinued. Switched over to dap tomycin on 07/25. ID consult for further recs for discharge-given culture grew VRE on 07/25, vanco was switched to dapto and recs for 6 weeks. Discussed with [facility] Doctor At the half-way on July 26, 2023. Discharge when daptomycin and wound VAC are in place at the half-way. 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 currently asymptomatic Chronic hyperkalemia K+ 5.0 on admission Continue Veltassa CKD (chronic kidney disease), stage III: Baseline creatinine low - mid 2s Creatinine at baseline on admission Avoid nephrotoxic meds Continue renal meds-dialyvyte, sodium bicarb Continue to monitor Chronic anemia In the setting of CKD Recent baseline ~7, currently 10.8 on admission Receives Procrit injections weekly Hypothyroidism Chronic, stable Continue levothyroxine Depression Chronic, stable Continue home meds DVT PROPHYLAXIS: SQ heparin Diet: DMII CODE STATUS: Full code Dispo: d/c back to [facility] once antibiotics and wound VAC are set up. Di scussed with physician at [facility] on July 26, 2023. Please note the above document was generated using voice recognition software. It may contain grammatical, syntax or spelling errors. Any formal questions or concerns about the content, text or information contained within the body of this dictation should be directly addressed to the provider for clarification Admission and Anticipated Discharge Date Admission Date: July 19, 2023 Subjective Patient seen and examined at bedside. Comfortable; not in distress. Denies fever, chills, chest pain, shortness of breath, abdominal pain or urinary symptoms. No significant overnight events Review of Systems Review of Systems: All systems reviewed & are unremarkable except as noted in Subjective Physical Exam Physical Exam: Constitutional: WD/WN, vitals as above, NAD, sitting up in bed, pleasant, conversing easily Respiratory: normal respiratory effort, lungs clear to auscultation, no wheeze, rales, rhonchi. Normal insp/exp effort, no accessory muscle use Cardiovascular: RRR, no murmur, no edema Vessels: no JVD or carotid bruit Chest: normal inspection of chest Abdomen: normal bowel sounds, soft, nontender, no hepatosplenomegaly Musculoskeletal: Wound VAC present on right foot. Dressing in place; clean dry and intact. Skin: no rashes, warm and dry normal turgor Neurologic: PERRL, EOMI, accommodation nl, no face palsy, no dysarthria CN's II- XI intact bilaterally and moves all extremities Psychiatric: A+Ox3, euthymic affect Results & Data Results & Data Vital Signs (Past 12 Hours) Vital Signs Temp Pulse Resp BP Pulse Ox O2 Del Method 07/29/23 08:30 Room Air 07/29/23 08:21 37.1 C 81 16 150/80 H 98 Room Air (1) Osteomyelitis Laterality: left Osteomyelitis location: ankle Osteomyelitis type: unspecified type Qualified Code(s): M86.9 - Osteomyelitis, unspecified (2) Diabetic ulcer of right foot Diabetes mellitus type: other specified (including BRITT) Diabetic foot ulcer location: heel Non-pressure ulcer stage: unspecified non-pressure ulcer stage Qualified Code(s): E13.621 - Other specified diabetes mellitus with foot ulcer; L97.419 - Non-pressure chronic ulcer of right heel and midfoot with unspecified severity
[2023-07-29] MEDS: DAPTOmycin 600 MG in SYRINGE 0 ML IV SCH (15:35)
[2023-07-29] MEDS: amLODIPine BESYLATE 5 MG TAB PO SCH (21:46)
[2023-07-29] MEDS: TAMSULOSIN HCL 0.4 MG CAP PO SCH (21:46)
[2023-07-29] MEDS: hydrOXYzine HCl 25 MG TAB PO SCH (21:46)
--- NOTE | 2023-07-29 21:53 | Orthopedic Progress Note ---
Date of Service July 29, 2023 Assessment & Plan (1) Osteomyelitis: Plan: Patient seen and evaluated in 359-1 resting comfortably in bed with no complaints. Patient is status post day #6 partial ostectomy of calcaneus (DOS: 07/20/23). Wound vac intact and running 125mmHg as directed. Discharge when daptomycin and wound VAC are in [facility] at the shelter. Will continue to follow while in house. (2) Cellulitis of right foot: (3) Anemia: Admission and Anticipated Discharge Date Admission Date: July 19, 2023 Subjective Patient seen and evaluated in 359-1 resting comfortably in bed with no complaints. Patient is status post day #9 partial ostectomy of calcaneus (DOS: 07/20/23). Denies any constitutional symptoms. Physical Exam Constitutional: cooperative and comfortable Eyes: normal visual case by confrontation Neck: normal visual inspection Respiratory: normal respiratory effort Cardiovascular: Vessels: posterior tibial pulses present and dorsalis pedis pulses present Musculoskeletal: Extremities: extremities normal to inspection Skin: + ulcer (Right heel) Neurologic: normal touch/pain/proprioception (Absent epicritic sensation) Psychiatric: Orientation: alert and oriented x 3 Results & Data Vital Signs (Past 12 Hours) Vital Signs Temp Pulse Resp BP Pulse Ox O2 Del Method 07/29/23 16:00 36.7 C 77 18 122/66 99 Room Air (1) Osteomyelitis Laterality: right Osteomyelitis location: foot Osteomyelitis type: unspecified type Qualified Code(s): M86.9 - Osteomyelitis, unspecified (3) Anemia Anemia type: unspecified type Qualified Code(s): D64.9 - Anemia, unspecified
[2023-07-30] MEDS: ACETAMINOPHEN 500 MG TAB PO SCH ×3 (05:43→21:11)
[2023-07-30] MEDS: LEVOTHYROXINE SODIUM 150 MCG TABLET PO SCH (05:43)
[2023-07-30] MEDS: HEPARIN SOD 5,000 UNIT/0.5 ML VIAL SQ SCH ×3 (05:43→21:11)
[2023-07-30] MEDS: TRIMETHOPRIM/POLYMYXIN B OP SCH ×4 (08:45→21:11)
[2023-07-30] MEDS: PANTOprazole 40 MG TAB PO SCH ×2 (08:45→21:10)
[2023-07-30] MEDS: SODIUM BICARBONATE 650 MG TAB PO SCH ×2 (08:45→21:10)
[2023-07-30] MEDS: INSULIN ASPART PER UNIT CHARGE SC SCH ×4 (08:56→23:07)
[2023-07-30] MEDS: LANTUS PER UNIT CHARGE SC SCH (08:58)
[2023-07-30] MEDS ORDERED: LANTUS PER UNIT CHARGE SC SCH (09:00)
[2023-07-30] MEDS: CYANOCOBALAMIN (B-12) 100 MCG TABLET PO SCH (09:02)
[2023-07-30] MEDS: FOLIC ACID 1 MG TAB PO SCH (09:03)
[2023-07-30] MEDS: FLUoxetine HCL 20 MG CAP PO SCH (09:03)
[2023-07-30] MEDS: METOCLOPRAMIDE HCL 10 MG TABLET PO SCH ×2 (09:03→17:52)
[2023-07-30] MEDS: ASPIRIN 81 MG ECTAB PO SCH (09:04)
[2023-07-30] MEDS: ADVANCED PROBIOTIC 1250 MG CAPSULE PO SCH (09:04)
[2023-07-30] MEDS: DAPTOmycin 600 MG in SYRINGE 0 ML IV SCH (13:00)
[2023-07-30] MEDS: PATIROMER CALCIUM SORBITEX 8.4 GM PACK PO SCH ×2 (13:18→13:29)
--- NOTE | 2023-07-30 14:29 | Hospitalist Progress Note ---
Date of Service July 30, 2023 Assessment & Plan (1) Osteomyelitis: (2) Diabetic ulcer of right foot: (3) Diabetic infection of right foot: (4) Diabetes mellitus type 1: (5) HTN (hypertension): (6) COVID-19: (7) Chronic hyperkalemia: (8) CKD (chronic kidney disease), stage III: (9) Chronic anemia: (10) Hypothyroidism: (11) Depression: Plan 58-year-old male with PMHx significant for DM type I, CKD stage III, diabetic neuropathy, HTN, hypothyroidism, chronic hyperkalemia, chronic anemia admitted with osteomyelitis of right heel. Osteomyelitis Diabetic ulcer of right foot Diabetic infection of right foot Patient presenting from [facility] for evaluation of worsening right heel wound. Recently admitted to [facility] 05/19 through 05/28 for polymicrobial right heel wound. Patient was discharged on IV ertapenem and oral amoxicillin. Completed antibiotic courses on 06/02. Heel worsening since then, presented for reevaluation CT right foot suggesting signs of early osteomyelitis of the right calcaneus MRI of the right ankle confirming osteomyelitis Wound Cx from 05/20 growing MRSA and GBS and VRE. Podiatry consult with Dr. Stout- appreciate recs -s/p right heel wound debridement and calcaneal ostectomy with application wound vac on 07/20 -deep wound Cx obtained-currently growing MRSA and GBS -bone pathology sample- currently growing MRSA and GBS Was on Vancomycin and Meropenem, meropenem discontinued. Switched over to dap tomycin on 07/25. ID consult for further recs for discharge-given culture grew VRE on 07/25, vanco was switched to dapto and recs for 6 weeks. Discussed with [facility] Doctor At the long term on July 26, 2023. Discharge when daptomycin and wound VAC are in place at the long term. Diabetes mellitus, Type 1 Hgb A1c 6.8 06/2023 Noted to be hypoglycemic on labs, glucose 60, asymptomatic Cont insulin with close monitoring HTN (hypertension) Currently not on antihypertensives, history of orthostatic hypotension previously on midodrine On amlodipine 10 mg COVID-19 Patient tested positive for COVID-19 reports infection 2 weeks [employer] with mild symptoms currently asymptomatic Chronic hyperkalemia K+ 5.0 on admission Continue Veltassa CKD (chronic kidney disease), stage III: Baseline creatinine low - mid 2s Creatinine at baseline on admission Avoid nephrotoxic meds Continue renal meds-dialyvyte, sodium bicarb Continue to monitor Chronic anemia In the setting of CKD Stable Receives Procrit injections weekly Hypothyroidism Chronic, stable Continue levothyroxine Depression Chronic, stable Continue home meds DVT PROPHYLAXIS: SQ heparin Diet: DMII CODE STATUS: Full code Dispo: d/c back to [facility] once antibiotics and wound VAC are set up. Discussed with physician at [facility] on July 26, 2023. Please note the above document was generated using voice recognition software. It may contain grammatical, syntax or spelling errors. Any formal questions or concerns about the content, text or information contained within the body of this dictation should be directly addressed to the provider for clarification Admission and Anticipated Discharge Date Admission Date: July 19, 2023 Subjective Patient seen and examined at bedside. Comfortable; not in distress. Denies fever, chills, chest pain, shortness of breath, abdominal pain or urinary symptoms. No significant overnight events Review of Systems Review of Systems: All systems reviewed & are unremarkable except as noted in Subjective Physical Exam Physical Exam: Constitutional: WD/WN, vitals as above, NAD, sitting up in bed, pleasant, conversing easily Respiratory: normal respiratory effort, lungs clear to auscultation, no wheeze, rales, rhonchi. Normal insp/exp effort, no accessory muscle use Cardiovascular: RRR, no murmur, no edema Vessels: no JVD or carotid bruit Chest: normal inspection of chest Abdomen: normal bowel sounds, soft, nontender, no hepatosplenomegaly Musculoskeletal: Wound VAC present on right foot. Dressing in place; clean dry and intact. Skin: no rashes, warm and dry normal turgor Neurologic: PERRL, EOMI, accommodation nl, no face palsy, no dysarthria CN's II- XI intact bilaterally and moves all extremities Psychiatric: A+Ox3, euthymic affect Results & Data Results & Data Vital Signs (Past 12 Hours) Vital Signs Temp Pulse Resp BP Pulse Ox O2 Del Method 07/30/23 08:19 36.8 C 73 16 121/69 96 Room Air (1) Osteomyelitis Laterality: left Osteomyelitis location: ankle Osteomyelitis type: unspecified type Qualified Code(s): M86.9 - Osteomyelitis, unspecified (2) Diabetic ulcer of right foot Diabetes mellitus type: other specified (including BRITT) Diabetic foot ulcer location: heel Non-pressure ulcer stage: unspecified non-pressure ulcer stage Qualified Code(s): E13.621 - Other specified diabetes mellitus with foot ulcer; L97.419 - Non-pressure chronic ulcer of right heel and midfoot with unspecified severity
[2023-07-30] MEDS: hydrOXYzine HCl 25 MG TAB PO SCH (21:11)
[2023-07-30] MEDS: TAMSULOSIN HCL 0.4 MG CAP PO SCH (21:11)
[2023-07-30] MEDS: amLODIPine BESYLATE 5 MG TAB PO SCH (21:11)
[2023-07-31] MEDS: ACETAMINOPHEN 500 MG TAB PO SCH ×2 (05:33→13:49)
[2023-07-31] MEDS: LEVOTHYROXINE SODIUM 150 MCG TABLET PO SCH (05:34)
[2023-07-31] MEDS: HEPARIN SOD 5,000 UNIT/0.5 ML VIAL SQ SCH ×2 (05:34→13:49)
[2023-07-31] MEDS: ADVANCED PROBIOTIC 1250 MG CAPSULE PO SCH (08:04)
[2023-07-31] MEDS: METOCLOPRAMIDE HCL 10 MG TABLET PO SCH (08:05)
[2023-07-31] MEDS: ASPIRIN 81 MG ECTAB PO SCH (08:05)
[2023-07-31] MEDS: PANTOprazole 40 MG TAB PO SCH (08:05)
[2023-07-31] MEDS: CYANOCOBALAMIN (B-12) 100 MCG TABLET PO SCH (08:05)
[2023-07-31] MEDS: FLUoxetine HCL 20 MG CAP PO SCH (08:05)
[2023-07-31] MEDS: SODIUM BICARBONATE 650 MG TAB PO SCH (08:05)
[2023-07-31] MEDS: FOLIC ACID 1 MG TAB PO SCH (08:05)
[2023-07-31] MEDS: TRIMETHOPRIM/POLYMYXIN B OP SCH ×2 (08:06→13:49)
[2023-07-31] MEDS: INSULIN ASPART PER UNIT CHARGE SC SCH ×2 (08:06→12:13)
[2023-07-31] MEDS: LANTUS PER UNIT CHARGE SC SCH (08:06)
--- NOTE | 2023-07-31 12:55 | Pharmacy Report ---
Pharmacy Glycemic Short Note 2 - Date of Service July 31, 2023 - Glycemic Short BSG Results (Last 24 hours): 07/30/23 07/30/23 07/31/23 16:57 20:51 07:39 POC Glucose 128 H 84 146 H 07/31/23 11:49 POC Glucose 129 H OUTPATIENT ANTIDIABETIC REGIMEN: * Insulin glargine 14 units SC daily * Regular Insulin 2 units SC BID with lunch and dinner + sliding scale prn HbA1c = 6.8% (07/20/23) ASSESSMENT: 07/31/23: * Patient has been well controlled in past 24 hours * Fasting today 146 mg/dL, up from yesterday but will continue to monitor * Prandial BSG 126 mg/dL- continue current novolog parameters 07/28/23: * BSGs were trending down nicely yesterday, but unfortunately patient with hypoglycemia at bedtime (BSG of 53 mg/dL) * Received 43 units of insulin yesterday (14 units of basal and 29 units of prandial/correctional bolus) * Will be slightly conservative w/ insulin regimen today to avoid hypoglycemia 07/27/23: * 58 y/o M admitted with Osteomyelitis currently on IV antibiotic therapy. He is a Type 1 diabetic managed on basal and bolus insulins at home. * Patient was admitted on 07/19/23 and basal insulin home dose was started for him at the time. However, BSGs trended down and he refused his dose on 07/24/23. Since then his basal insulin was held which has contributed to high blood sugars today. Pharmacy consulted for glycemic management. * Currently basal insulin 14 units given this morning and ongoing QAM. This dose may need adjusted down. * Novolog parameters continued as ordered yesterday but since hyperglycemia at breakfast and lunch checks, loosened parameters slightly at lunch so that she would not stack on insulin doses and become hypoglycemic later on. Additionally 7 units of IV bolus insulin was also given due to persistent hyperglycemia. * Novolog parameter tightened back up at dinner. PLAN FOR INPATIENT GLYCEMIC CONTROL: * Basal insulin - * Lantus 12 units SQ QAM * Bolus insulin - loosen * NovoLog per scale ACHS or Q6hrs while NPO * Goal Range: Low 120 mg/dL - High 150 mg/dL * Correction Factor: 40 mg/dL/unit * Nutritional / Prandial insulin per carb ratio of 1 unit per 20 grams CHO consumed
[2023-07-31] MEDS: DAPTOmycin 600 MG in SYRINGE 0 ML IV SCH (13:49)
[2023-07-31] MEDS: PATIROMER CALCIUM SORBITEX 8.4 GM PACK PO SCH (13:54)
--- NOTE | 2023-07-31 14:34 | Discharge Summary ---
Date of Service July 31, 2023 Admission HPI Per Admitting Provider 58-year-old male with PMH DM type I, CKD stage III, diabetic neuropathy, HTN, hypothyroidism, chronic hyperkalemia, chronic anemia, and other problems listed below who presents to the ED for evaluation of right heel wound. History is obtained from the patient and review of records sent from [facility]. Patient is somewhat of a poor historian. Recently admitted to [facility] 05/19 through 05/28 for polymicrobial right heel wound. Patient was discharged on IV ertapenem and oral amoxicillin. Completed antibiotic courses on 06/02. Patient reports worsening of his right heel wound over the past couple of weeks. Thinks he may have been on any antibiotic course but he is unsure. [facility] and they recommended he be evaluated in the ED. Patient denies fevers and chills. Reports ongoing drainage of the right heel wound since last hospitalization. No chest pain or shortness of breath. Denies lightheadedness, dizziness, diaphoresis, syncopal events. No abdominal pain, nausea, vomiting, diarrhea. No urinary symptoms. In the ED, patient is afebrile, hemodynamically stable. Right foot CT suggest early osteomyelitis of the calcaneus. Patient was given IV meropenem and IV vancomycin. He also has tested positive for COVID-19 however reports being infected about 2 weeks ago and has no further symptoms. Admission Exam Per Admitting Provider Constitutional: WD/WN, vitals as above no acute distress Eyes: PERRL, conjunctivae normal, anicteric sclerae ENMT: external ear and nose normal, oropharynx normal Respiratory: normal respiratory effort, lungs clear to auscultation Cardiovascular: Rate/Rhythm: regular rate and regular rhythm Vessels: normal peripheral pulses Extremities: no edema Gastrointestinal (Abdomen): normal bowel sounds, soft, nontender, no hepatosplenomegaly Musculoskeletal: no cyanosis or clubbing, extremities motor strength 5/5 Skin: no rashes, warm and dry wound noted to right heel ~ 5cm with white/yellow wound bed, no significant drainage or erythema noted Neurologic: PERRL, EOMI, accommodation nl, no face palsy, no dysarthria Psychiatric: A+Ox3, euthymic affect Principal Diagnosis Osteomyelitis Diabetic ulcer of right foot Diabetic infection of right foot Discharge Exam Constitutional: WD/WN, vitals as above, NAD, sitting up in bed, pleasant, conversing easily Respiratory: normal respiratory effort, lungs clear to auscultation, no wheeze, rales, rhonchi. Normal insp/exp effort, no accessory muscle use Cardiovascular: RRR, no murmur, no edema Vessels: no JVD or carotid bruit Chest: normal inspection of chest Abdomen: normal bowel sounds, soft, nontender, no hepatosplenomegaly Musculoskeletal: Wound VAC present on right foot. Dressing in place; clean dry and intact. Skin: no rashes, warm and dry normal turgor Neurologic: PERRL, EOMI, accommodation nl, no face palsy, no dysarthria CN's II- XI intact bilaterally and moves all extremities Psychiatric: A+Ox3, euthymic affect Discharge Data Allergies Allergy/AdvReac Type Severity Reaction Status Date / Time sodium chloride AdvReac Unknown CONTRAINDIC Verified 07/19/23 15:29 [From [place] Nasal] ATED. Consultations 07/19/23 14:32 ED Decision to Admit Stat 07/19/23 16:37 Consult Podiatry Routine 07/21/23 09:22 Consult Infectious Diseases Routine Procedures Performed Operation Date: 07/20/23 07:00 Actual Procedures p Right Heel Wound Debridement, Calcaneal Ostetectomy, application wound vac(Right) - Celestino Stout DPM, MS Ordered Studies 07/19/23 13:07 CT foot RT wo con Stat 07/20/23 00:45 MR ankle RT wo con Routine Hospital Course (1) Osteomyelitis: (2) Diabetic ulcer of right foot: (3) Diabetic infection of right foot: (4) Diabetes mellitus type 1: (5) HTN (hypertension): (6) COVID-19: (7) Chronic hyperkalemia: (8) CKD (chronic kidney disease), stage III: (9) Chronic anemia: (10) Hypothyroidism: (11) Depression: Plan 58-year-old male with PMHx significant for DM type I, CKD stage III, diabetic neuropathy, HTN, hypothyroidism, chronic hyperkalemia, chronic anemia admitted with osteomyelitis of right heel. Osteomyelitis Diabetic ulcer of right foot Diabetic infection of right foot Patient presenting from [facility] for evaluation of worsening right heel wound. Recently admitted to [facility] 05/19 through 05/28 for polymicrobial right heel wound. Patient was discharged on IV ertapenem and oral amoxicillin. Completed antibiotic courses on 06/02. Heel worsening since then, presented for reevaluation CT right foot suggesting signs of early osteomyelitis of the right calcaneus MRI of the right ankle confirming osteomyelitis Wound Cx from 05/20 growing MRSA and GBS and VRE. Podiatry consult with Dr. Stout- appreciate recs -s/p right heel wound debridement and calcaneal ostectomy with application wound vac on 07/20 -deep wound Cx obtained-currently growing MRSA and GBS -bone pathology sample- currently growing MRSA and GBS Was on Vancomycin and Meropenem, meropenem discontinued. Switched over to daptomycin on 07/25. ID consult for further recs for discharge-given culture grew VRE on 07/25, vanco was switched to dapto and recs for 6 weeks. Patient was discharged on 6 weeks of daptomycin. Wound VAC at 125 mmHg Wound care Patient to follow-up with PCP D[facility] with [facility]. Please note the above document was generated using voice recognition software. It may contain grammatical, syntax or spelling errors. Any formal questions or concerns about the content, text or information contained within the body of this dictation should be directly addressed to the provider for clarification Total Time Total Time Spent Total Time Spent (In Minutes): 35 Total Time Includes: Examination of the Patient, Discharge Planning, Medication Reconciliation, Communication With Other Providers and Other Discharge Plan Discharge Items [facility] Disposition[facility] Reason For Visit: HEEL WOUND, OSTEOMYELITIS Discharge Diagnosis: Osteomyelitis Diabetic ulcer of right foot Diabetic infection of right foot Condition on Discharge: Fair Activity: Resume your previous activity Non-emergency contact: Primary Care Provider Call non-emergency contact if: you have any medication questions and your symptoms worsen Follow-up/Referrals: Deniz ESQUIVEL [Primary Care Provider] - Diet: Carb Consistent or DM2 Addtl Attending Provider Instructions: You were admitted to the hospital due to right heel wound for which you underwent surgery by Dr. Stout(podiatry) on July 20. Continue wound VAC as per wound care instructions Please continue IV antibiotics with daptomycin till September 04, 2023. While you are on antibiotics, obtain CBC, CMP, ESR every week. Please continue wound VAC vac at 125 mmHg. The wound care instructions are as follows; Clean with normal saline, pat dry Apply Adaptic to wound bed Cover with 4 x 4 and secure with Kerlix Please follow-up with podiatry as outpatient. Pending Studies at Discharge: No Stand-Alone Forms: [facility] Skilled Items Patient informed of condition?: No Discharge Level of Care: Other Communicable Disease: No Discharge Prognosis: Stable Lines: PICC Urinary Catheter: No Medications and DC Order Prescriptions: Continued Epogen 10,000 unit/mL solution 10,000 unit subcut WK Rx Instructions: FRIDAYS atorvastatin 40 mg Tablet 40 mg PO HS ascorbic acid (vitamin C) [Vitamin C] 500 mg Tablet 500 mg PO QAM sodium bicarbonate 650 mg Tablet 650 mg PO BID Novolin R Regular U100 Insulin 100 unit/mL Solution 1 sliding scale dose SUBCUT USEASDIRECTD PRN (Reason: Hyperglycemia) Rx Instructions: BSG 150-200=2 UNITS, 201-250=4 UNITS, 251-300=6 UNITS, 301-350=8 UNITS, 351- 400=10 UNITS, 401-450=12 UNITS, >450 CALL MD. Probiotic 15 billion cell capsule, sprinkle 1 cap PO DAILY Qty: 30 0RF Rx Instructions: do not crush/chew/cut; swallow whole OR may open and sprinkle in cold drink/food alendronate 70 mg Tablet 70 mg PO WK Rx Instructions: TAKE THIS MED EVERY MONDAY IN THE MORNING ON AN EMPTY STOMACH aspirin 81 mg Tablet,Delayed Release (Dr/Ec) 81 mg PO QAM Dialyvite 800 with Zinc 50 0.8-50 mg Tablet 1 tab PO DAILY fluoxetine 20 mg Capsule 40 mg PO QAM hydroxyzine pamoate 50 mg Capsule 50 mg PO HS levothyroxine 150 mcg Tablet 150 mcg PO DAILYBB metoclopramide HCl 10 mg Tablet 10 mg PO ACHS Rx Instructions: TAKE ONE TABLET, ORALLY, FOUR TIMES DAILY 15 MINUTES BEFORE MEALS AND AT BED TIME ondansetron 8 mg Tablet,Disintegrating 8 mg PO TID pantoprazole 40 mg Tablet,Delayed Release (Dr/Ec) 40 mg PO BID tamsulosin 0.4 mg Capsule 0.4 mg PO HS Veltassa 25.2 gram Powder In Packet 25.2 g PO QPM Rx Instructions: DISSOLVE ONE PACKET IN WATER AND DRINK ONCE DAILY 3 HOURS BEFORE MEALS ergocalciferol (vitamin D2) 50 mcg (2,000 unit) Capsule 50 mcg PO WK Rx Instructions: THURSDAYS Novolin R Regular U100 Insulin 100 unit/mL Solution 2 unit subcut BID Rx Instructions: TAKES AT 1100 & 1630 cyanocobalamin (vitamin B-12) [Vitamin B-12] 100 mcg Tablet 100 mcg PO QAM Qty: 30 0RF folic acid 1 mg Tablet 1 mg PO QAM Qty: 30 0RF insulin glargine 100 unit/mL solution 14 unit SUBCUT DAILY ibuprofen 600 mg Tablet 600 mg PO TID PRN (Reason: Pain) Rx Instructions: DISCONTINUED AFTER THIS DOSE. acetaminophen [Tylenol Extra Strength] 500 mg Tablet 1,000 mg PO TID loperamide [Imodium A-D] 2 mg Capsule 4 mg PO BID PRN (Reason: LOOSE STOOLS) Discharge Orders: Discharge Order (Routine); Ordered 07/31/23 Ordered By: Benji Whatley/Neha Patient Handouts: A1C, Nutrition for Wound Healing, Managing Type 1 Diabetes Admission Data Admit Date/Time: 07/19/23 14:48 Attending Provider: Benji Fontana Admit Provider: Shayy Montilla Primary Care Provider: Deniz ESQUIVEL Other Providers: Shayy Montilla; Celestino Stout; Eduin Campos; Dominic Robles; Yao Harper I.; Caden Ellis II; Dulce Dumont; Miguel Cary; Austyn Vargas; Sage Keenan Other Interventions: Discharge Summary Assessment (RN) Last Done: 07/31/23 10:57
== END 2023-07-31 15:10 | DRG 622 ==
LOC: ED 10:45 → EDINP 14:48 → SUATTDRO 14:48 → 3W 16:37

== ENCOUNTER 2023-08-25 15:11 | Inpatient (IN) ==
--- NOTE | 2023-08-25 15:17 | ED Triage Note ---
Date of Service August 25, 2023 Provider in Triage Author: Rukhsana Farnsworth History of Present Illness This patient was briefly evaluated while in triage. An abbreviated physical exam was performed. This patient is a 58-year-old Male who presents to the ED for evaluation of inmate from [facility] right heel amputation in July continued infection - Dapto via PICC, wound vac Physical Exam GENERAL: NAD, shackled in a wheelchair, COs present. CARDIOVASCULAR: RRR RESPIRATORY: CTA EXT: Right heel dressing intact Initial orders for labs and / or imaging were placed and patient was placed in the waiting area until a bed is available. Please see further documentation for the full ED course.
[2023-08-25 16:19] LABS: Basophils # (auto) 0.13 K/uL (0.00-0.20); Basophils % (auto) 0.8 %; Eosinophils # (auto) 0.27 K/uL (0.00-0.50); Eosinophils % (auto) 1.6 %; Hematocrit (blood only) 34.4 % (42.0-52.0); Immature Granulocytes # (auto) 0.06 K/uL (0.01-0.20); Immature Granulocytes % (auto) 0.4 %; Lymphocytes # (auto) 1.92 K/uL (1.20-3.40); Lymphocytes % (auto) 11.5 %; Mean Corpuscular Hemoglobin 27.2 pg (25.0-34.0); Mean Corpuscular Volume 85.1 fL (80.0-100.0); Mean Platelet Volume 8.9 fL (9.4-12.4); Monocytes # (auto) 2.11 K/uL (0.11-0.59); Monocytes % (auto) 12.6 %; Neutrophils # (auto) 12.23 K/uL (1.40-6.50); Neutrophils % (auto) 73.1 %; Platelet Count 677 K/uL (130-400); RDW Coefficient of Variation 16.2 % (11.5-14.5); RDW Standard Deviation 50.4 fL (36.4-46.3); Red Blood Count 4.04 M/uL (4.70-6.10); White Blood Count 16.72 K/ul (4.8-10.8)
[2023-08-25] MEDS: SODIUM CHLORIDE 0.9% 1,000 ML IV SCH ×2 (16:22→22:54)
[2023-08-25 16:37] LABS: Alanine Aminotransferase 47 U/L (7-52); Alkaline Phosphatase 133 U/L (34-104); Anion Gap 8 (3-11); Aspartate Aminotransferase 58 U/L (13-39); BUN Creatinine Ratio 12.4 (10-20); Bilirubin Direct 0.1 mg/dl (0-0.2); Bilirubin,Total 0.3 mg/dl (0.2-1.0); Blood Urea Nitrogen 34 mg/dl (6-23); Calcium 8.6 mg/dl (8.6-10.3); Carbon Dioxide 21 mmol/L (21-32); Chloride 104 mmol/L (98-107); Est GFR (Non-African American) 24.1 ml/min; Glucose 110 mg/dl (70-99(Fasting)); Magnesium 1.9 mg/dl (1.7-2.4); Potassium 4.7 mmol/L (3.5-5.1); Sodium 133 mmol/L (136-145); Total Protein 6.7 gm/dl (6.0-8.3)
--- NOTE | 2023-08-25 16:47 | Emergency Department Note ---
Impression & Plan Infected surgical wound ADMIT ED Provider Note HPI: History obtained from patient. The patient is a 58-year-old gentleman with history of diabetes, who presents emergency department from long term over concern for right heel wound infection. Patient had surgery performed on 07/20 for partial right heel amputation with Dr. Stout of podiatry. Patient had his wound evaluated today by medical staff at the long term and was advised to come to the ER to be assessed for wound infection. Patient states he is otherwise been in his normal state of health, he denies any recent fevers, on my assessment here in the ED he states he feels "fine". Patient is hemodynamically stable on arrival. ROS: - Per HPI Differential Diagnosis: Cellulitis of surgical wound, necrotizing fasciitis, osteomyelitis, amongst other potential pathologies. *Outpatient medications and allergy history reviewed. PE: General: Alert HEENT: Normocephalic, trachea midline Eyes: Extraocular eye movement is intact, no scleral erythema Pulmonary: Clear to auscultation bilaterally, no wheezing Cardio: Regular rate and rhythm GI: Abdomen is soft to palpation : No suprapubic tenderness MSK: No evidence of trauma or malformation of the extremities, no edema Skin: No evidence of rash, there is surgical wound measuring approximately 5 cm in diameter at the base of the right heel with surrounding erythema, the wound is malodorous but there is no active purulent drainage Neuro: Alert, no focal deficits Psychiatric: Cooperative INDEPENDENT INTERPRETATIONS: pvc monitor: (As interpreted by myself): - An order was placed for continuous cardiac monitoring - Patient was noted to be in sinus rhythm with a rate of 85 X-ray right heel: -No evidence of subcutaneous gas, there is soft tissue edema concerning for possible cellulitis Interventions provided in ED: -IV fluid bolus, IV vancomycin Medical Decision Making: IV was established and lab work obtained, patient was placed on manager cardiac. Lab work shows a leukocytosis of 16.7, blood cultures were ordered, hemoglobin is stable at 11.0, platelet count is elevated at 677, sodium is 133, creatinine is near baseline at 2.75, procalcitonin is elevated at 0.62. X-ray of the right heel shows some changes concerning for infection but no obvious subcutaneous air. I discussed the patient's presentation with Dr. Stout of podiatry, he did evaluate the patient at the bedside and determined the patient appropriate for admission with administration of IV antibiotics and he states he will likely take the patient to the operating room tomorrow for debridement of his wound. Patient is in agreement to this plan. Case was also discussed with the on-call hospitalist service for [facility], case was discussed with Kinjal Nunes PA-C, and the patient was placed for admission in stable condition to the [facility] hospitalist service under Dr. Bowen. Consultants/Discussions held with other healthcare providers: -Podiatry, Dr. Stout -Hospitalist service, Kinjal Perez PA-C Disposition discussion held by myself with: -Patient and present staff at the bedside Diagnosis: 1. Infected surgical wound of the right heel, acute 2. Leukocytosis, acute 3. Elevated procalcitonin, acute 4. Anemia, chronic Disposition: Admission Miguel Tang DO Emergency Medicine Past Med/Surg History Medical History HTN (hypertension) Osteomyelitis of ankle CKD (chronic kidney disease), stage III Diabetic ulcer of left ankle Diabetic neuropathy Chronic nausea Chronic hyperkalemia Chronic anemia Chronic hyponatremia CKD (chronic kidney disease) Psoriasis Orthostatic hypotension on chronic fludrocortisone Proteinuria NSTEMI (non-ST elevated myocardial infarction) Diabetes mellitus type 1 Non-STEMI (non-ST elevated myocardial infarction) Hypothyroidism Surgical History Status post right foot surgery Family History Other Heart disease Social History Smoking Status: Never smoker Tobacco Type: Cigarettes Second Hand Exposure: No; Hx Alcohol Use: No Hx Substance Use: No Preferred Language: Jordanian Communication Ability: Effective Visual Impairment: No Limitations Charge Coordinator Required: No Beliefs That Will Affect Care: None Current Living Situation: Other Current Living Situation Comment: long term Other Information That Helps Us Care for You: No Feels Safe at Home: Yes Safety Concerns: Feels Safe At This Time Assistive Devices: Wheelchair Allergies Allergies Allergy/AdvReac Type Severity Reaction Status Date / Time sodium chloride AdvReac Unknown CONTRAINDIC Verified 07/19/23 15:29 [From [place] Nasal] ATED. Home Meds Home Medications Medication Instructions Recorded Confirmed alendronate 70 mg tablet 70 mg PO WK 03/05/22 08/25/23 aspirin 81 mg tablet,delayed 81 mg PO QAM 03/05/22 08/25/23 release ergocalciferol (vitamin D2) 50 mcg 50 mcg PO WK 03/05/22 08/25/23 (2,000 unit) capsule fluoxetine 20 mg capsule 40 mg PO QAM 03/05/22 08/25/23 hydroxyzine pamoate 50 mg capsule 50 mg PO HS 03/05/22 08/25/23 insulin regular human 100 unit/mL 2 unit subcut BID 03/05/22 08/25/23 injection solution (Novolin R Regular U-100 Insulin) levothyroxine 150 mcg tablet 150 mcg PO DAILYBB 03/05/22 08/25/23 metoclopramide HCl 10 mg tablet 10 mg PO ACHS 03/05/22 08/25/23 ondansetron 8 mg disintegrating 8 mg PO .EVERY 8 HOURS 03/05/22 08/25/23 tablet pantoprazole 40 mg tablet,delayed 40 mg PO BID 03/05/22 08/25/23 release patiromer calcium sorbitex 25.2 25.2 g PO QPM 03/05/22 08/25/23 gram oral powder packet (Veltassa) tamsulosin 0.4 mg capsule 0.4 mg PO HS 03/05/22 08/25/23 vitamin B complex with C-folic 1 tab PO DAILY 03/05/22 08/25/23 acid 0.8 mg-zinc citrate 50 mg tablet (Dialyvite 800 with Zinc 50) epoetin sanchez 10,000 unit/mL 10,000 unit subcut WK 11/21/22 08/25/23 injection solution (Epogen) ascorbic acid (vitamin C) 500 mg 500 mg PO QAM 12/14/22 08/25/23 tablet (Vitamin C) atorvastatin 40 mg tablet 40 mg PO HS 12/14/22 08/25/23 insulin regular human 100 unit/mL 1 sliding scale dose subcut 12/14/22 08/25/23 injection solution (Novolin R USEASDIRECTD PRN Hyperglycemia Regular U-100 Insulin) sodium bicarbonate 650 mg tablet 650 mg PO BID 12/14/22 08/25/23 insulin glargine 100 unit/mL 14 unit subcut DAILY 05/19/23 08/25/23 subcutaneous solution acetaminophen 500 mg tablet 1,000 mg PO TID 07/19/23 08/25/23 (Tylenol Extra Strength) loperamide 2 mg capsule (Imodium 4 mg PO BID PRN LOOSE STOOLS 07/19/23 08/25/23 A-D) Daptomycin 750mg/Ns 750 mg IV DAILY 08/25/23 08/25/23 Lactobacillus acidoph-L.bulgaricus 1 tab PO TIDM 08/25/23 08/25/23 1 million cell tablet (Floranex) cyanocobalamin (vitamin B-12) 100 100 mcg PO DAILY 08/25/23 08/25/23 mcg tablet (Vitamin B-12) dextrose 40 % oral gel (Glutose-15) 1 ea PO DAILY PRN Hypoglycemia 08/25/23 08/25/23 glucagon 1 mg solution for 0 mg subcut UD PRN low blood sugar 08/25/23 08/25/23 injection (Glucagon Emergency Kit) Previous Rx's Medication Instructions Recorded folic acid 1 mg tablet 1 mg PO QAM #30 tabs 03/06/22 Results & Data (ED) Vital Signs Vital Signs - 24 hr 08/25/23 15:20 08/25/23 15:38 08/25/23 15:38 Temperature 36.9 C Temperature Source Temporal Artery Scan Pulse Rate 84 83 Pulse Rate [Apical] 84 Pulse Rhythm Regular Pulse Rhythm [Apical] Regular Pulse Strength [Apical] Respiratory Rate 18 14 14 Respiratory Effort / Characteristics Non-Labored Spontaneous Non-Labored Spontaneous Respiratory Depth Normal Normal Respiratory Pattern Regular Blood Pressure 80/54 L Blood Pressure [Right Arm] 134/81 Blood Pressure Mean 62 Blood Pressure Mean [Right Arm] 98 Blood Pressure Position Sitting Blood Pressure Position [Right Arm] Pulse Oximetry 97 100 100 Oxygen Delivery Method Room Air Room Air Room Air Sepsis Recent Fever Within 48 Hours No Sepsis New/Unexplained Change in Mental Status No Sepsis Action Taken by Nursing No Action Required 08/25/23 17:11 08/25/23 19:26 Temperature Temperature Source Pulse Rate 80 Pulse Rate [Apical] 83 Pulse Rhythm Pulse Rhythm [Apical] Regular Pulse Strength [Apical] Normal Respiratory Rate 16 Respiratory Effort / Characteristics Non-Labored Spontaneous Respiratory Depth Normal Respiratory Pattern Regular Blood Pressure Blood Pressure [Right Arm] 138/84 Blood Pressure Mean Blood Pressure Mean [Right Arm] 102 Blood Pressure Position Blood Pressure Position [Right Arm] Sitting Pulse Oximetry 98 Oxygen Delivery Method Room Air Sepsis Recent Fever Within 48 Hours Sepsis New/Unexplained Change in Mental Status Sepsis Action Taken by Nursing Laboratory Data 08/25/23 15:56 08/25/23 15:56 Lab Results 08/25/23 Range/Units 15:56 WBC 16.72 H (4.8-10.8) K/ul RBC 4.04 L (4.70-6.10) M/uL Hgb 11.0 L (14.0-18.0) g/dl Hct 34.4 L (42.0-52.0) % MCV 85.1 (80.0-100.0) fL MCH 27.2 (25.0-34.0) pg MCHC 32.0 (32.0-36.0) g/dL RDW Std Deviation 50.4 H (36.4-46.3) fL RDW Coeff of Minnie 16.2 H (11.5-14.5) % Plt Count 677 H (130-400) K/uL MPV 8.9 L (9.4-12.4) fL Immature Gran % (Auto) 0.4 % Neut % (Auto) 73.1 % Lymph % (Auto) 11.5 % Wright % (Auto) 12.6 % Eos % (Auto) 1.6 % Baso % (Auto) 0.8 % Neut # (Auto) 12.23 H (1.40-6.50) K/uL Lymph # (Auto) 1.92 (1.20-3.40) K/uL Wright # (Auto) 2.11 H (0.11-0.59) K/uL Eos # (Auto) 0.27 (0.00-0.50) K/uL Baso # (Auto) 0.13 (0.00-0.20) K/uL Immature Gran # (Auto) 0.06 (0.01-0.20) K/uL Sodium 133 L (136-145) mmol/L Potassium 4.7 (3.5-5.1) mmol/L Chloride 104 (98-107) mmol/L Carbon Dioxide 21 (21-32) mmol/L Anion Gap 8 (3-11) BUN 34 H (6-23) mg/dl Creatinine 2.75 H (0.6-1.4) mg/dl Est Cr Clr Drug Dosing Not Reportable Est GFR ( Amer) 28.0 ml/min Est GFR (Non-Af Amer) 24.1 ml/min BUN/Creatinine Ratio 12.4 (10-20) Glucose 110 H (70-99(Fasting)) mg/dl Lactate 1.2 (0.4-2.0) mmol/L Calcium 8.6 (8.6-10.3) mg/dl Magnesium 1.9 (1.7-2.4) mg/dl Total Bilirubin 0.3 (0.2-1.0) mg/dl Direct Bilirubin 0.1 (0-0.2) mg/dl AST 58 H (13-39) U/L ALT 47 (7-52) U/L Alkaline Phosphatase 133 H (34-104) U/L Total Protein 6.7 (6.0-8.3) gm/dl Albumin 3.0 L (3.4-5.0) gm/dl Procalcitonin 0.62 H (0-0.5) ng/ml Administered Medications Vancomycin HCl 1,500 mg/ (Sodium Chloride) 530 mls @ 200 mls/hr IV NOW ONE Stop: 08/25/23 20:22 Last Admin: 08/25/23 18:40 Dose: 200 mls/hr Documented By: GENA Discontinued Medications Sodium Chloride (Nss) 1,000 mls @ 999 mls/hr IV .Q1H1M MARY Stop: 08/25/23 16:23 Last Infusion: 08/25/23 18:44 Dose: Infused Documented By: Admin: 08/25/23 16:22 Dose: 999 mls/hr Documented By: GENA Miscellaneous (Patient's Height &/Or Weight Needed) 1 each N/A NOW STA Stop: 08/25/23 17:27 Last Admin: 08/25/23 19:12 Dose: Not Given Documented By: EVAN Imaging Data Radiologist's Impression: Foot X-Ray 08/25/23 15:23 RIGHT FOOT 3 VIEWS CLINICAL HISTORY: Right foot pain. Infection. FINDINGS: 3 views of the right foot are correlated with CT scan of the right foot dated 07/19/2023. The skeletal structures are osteopenic. No acute fracture is seen. There is a rocker-bottom deformity. Extensive postsurgical change and fusion is seen throughout the midfoot. A cortical lag screw and buttress plate transfixes the first tarsometatarsal articulations. Cortical lag screws also transfix the second through fifth tarsometatarsal articulations. Mild osteoarthritic changes seen involving the metatarsophalangeal and interphalangeal joints. There is a large dorsal soft tissue heel ulcer/wound. This appears to extend to the bony cortex of the dorsal calcaneus. Overlying bandage material significantly obscures the bony cortex. Soft tissue edema throughout the hindfoot likely represents cellulitis. No soft tissue gas is seen. There is advanced atherosclerotic calcification of the regional arteries. IMPRESSION: 1. Large dorsal heel ulcer/wound which appears to reach the calcaneal cortex. The underlying cortex is not well assessed due to overlying bandage material. Correlate with direct visualization. 2. No fracture is seen. 3. Extensive postsurgical change and deformity is seen throughout the right foot as above. 4. Soft tissue edema of the hindfoot likely represents cellulitis. Correlate clinically. Dictated: 08/25/2023 3:52 PM Transcribed: 08/25/2023 4:08 PM Nikki [id number] YANET_Marvin [phone] Electronically signed by: Kendall Pardo M.D. 08/25/2023 5:03 PM Discharge Plan Visit Data Chief Complaint: Infection Stated Complaint: INFECTION ED Provider: Miguel Tang Discharge Problem: Infected surgical wound Forms Stand Alone Forms: My [facility] Prescriptions Prescriptions: No Action Epogen 10,000 unit/mL solution 10,000 unit subcut WK Rx Instructions: FRIDAYS atorvastatin 40 mg Tablet 40 mg PO HS ascorbic acid (vitamin C) [Vitamin C] 500 mg Tablet 500 mg PO QAM sodium bicarbonate 650 mg Tablet 650 mg PO BID Novolin R Regular U100 Insulin 100 unit/mL Solution 1 sliding scale dose SUBCUT USEASDIRECTD PRN (Reason: Hyperglycemia) Rx Instructions: BSG 150-200=2 UNITS, 201-250=4 UNITS, 251-300=6 UNITS, 301-350=8 UNITS, 351- 400=10 UNITS, 401-450=12 UNITS, >450 CALL . alendronate 70 mg Tablet 70 mg PO WK Rx Instructions: TAKE THIS MED EVERY MONDAY IN THE MORNING ON AN EMPTY STOMACH aspirin 81 mg Tablet,Delayed Release (Dr/Ec) 81 mg PO QAM Dialyvite 800 with Zinc 50 0.8-50 mg Tablet 1 tab PO DAILY fluoxetine 20 mg Capsule 40 mg PO QAM hydroxyzine pamoate 50 mg Capsule 50 mg PO HS levothyroxine 150 mcg Tablet 150 mcg PO DAILYBB metoclopramide HCl 10 mg Tablet 10 mg PO ACHS Rx Instructions: TAKE ONE TABLET, ORALLY, FOUR TIMES DAILY 15 MINUTES BEFORE MEALS AND AT BEDTIME ondansetron 8 mg Tablet,Disintegrating 8 mg PO .EVERY 8 HOURS pantoprazole 40 mg Tablet,Delayed Release (Dr/Ec) 40 mg PO BID tamsulosin 0.4 mg Capsule 0.4 mg PO HS Veltassa 25.2 gram Powder In Packet 25.2 g PO QPM Rx Instructions: DISSOLVE ONE PACKET IN WATER AND DRINK ONCE DAILY 3 HOURS BEFORE MEALS ergocalciferol (vitamin D2) 50 mcg (2,000 unit) Capsule 50 mcg PO WK Rx Instructions: THURSDAYS Novolin R Regular U100 Insulin 100 unit/mL Solution 2 unit subcut BID Rx Instructions: TAKES AT 1100 & 1630 folic acid 1 mg Tablet 1 mg PO QAM Qty: 30 0RF insulin glargine 100 unit/mL solution 14 unit SUBCUT DAILY acetaminophen [Tylenol Extra Strength] 500 mg Tablet 1,000 mg PO TID loperamide [Imodium A-D] 2 mg Capsule 4 mg PO BID PRN (Reason: LOOSE STOOLS) Daptomycin 750mg/Ns 750 mg IV DAILY Glucagon Emergency Kit (human) 1 mg Recon Soln 0 mg subcut UD PRN (Reason: low blood sugar) cyanocobalamin (vitamin B-12) [Vitamin B-12] 100 mcg Tablet 100 mcg PO DAILY Lactobacillus acidoph-L.bulgar [Floranex] 1 million cell Tablet 1 tab PO TIDM dextrose [Glutose-15] 40 % Gel 1 ea PO DAILY PRN (Reason: Hypoglycemia) Referrals Referrals: Deniz ESQUIVEL [Primary Care Provider] -
--- NOTE | 2023-08-25 17:04 | XRay Report ---
RIGHT FOOT 3 VIEWS CLINICAL HISTORY: Right foot pain. Infection. FINDINGS: 3 views of the right foot are correlated with CT scan of the right foot dated 07/19/2023. T he skeletal structures are osteopenic. No acute fracture is seen. There is a rocker-bottom deformity. Extensive postsurgical change and fusion is seen throughout the midfoot. A cortical lag screw and bu ttress plate transfixes the first tarsometatarsal articulations. Cortical lag screws also transfix th e second through fifth tarsometatarsal articulations. Mild osteoarthritic changes seen involving the metatarsophalangeal and interphalangeal joints. There is a large dorsal soft tissue heel ulcer/wound. This appears to extend to the bony cortex of the dorsal calcaneus. Overlying bandage material signif icantly obscures the bony cortex. Soft tissue edema throughout the hindfoot likely represents celluli tis. No soft tissue gas is seen. There is advanced atherosclerotic calcification of the regional fred pernell. IMPRESSION: 1. Large dorsal heel ulcer/wound which appears to reach the calcaneal cortex. The underlying cortex i s not well assessed due to overlying bandage material. Correlate with direct visualization. 2. No fracture is seen. 3. Extensive postsurgical change and deformity is seen throughout the right foot as above. 4. Soft tissue edema of the hindfoot likely represents cellulitis. Correlate clinically. Dictated: 08/25/2023 3:52 PM Transcribed: 08/25/2023 4:08 PM Nikki [id number] YANET_Marvin [id number] Electronically signed by: Kendall Pardo M.D. 08/25/2023 5:03 PM
[2023-08-25] MEDS ORDERED: VANCOMYCIN CONSULT ACTIVE PRN (17:44)
--- NOTE | 2023-08-25 18:13 | History & Physical Report ---
Date of Service August 25, 2023 Assessment & Plan (1) Diabetic ulcer of right foot: (2) Cellulitis of right foot: Plan: Patient is 58-year-old male with PMH DM type I, CKD stage III, diabetic neuropathy, HTN, hypothyroidism, chronic hyperkalemia, chronic anemia, and other problems listed below who presents to the ED from [facility] for worsening foot wound. Denies fever, chills History 05/2023 polymicrobial right heel wound that was treated with ertapenem and amoxicillin. 06/2023-07/2023 diabetic ulcer of right foot, osteomyelitis s/p wound debridement and calcaneal ostectomy, with wound vac. Bone pathology sample + MRSA, GBS, VRE. ID had recommended daptomycin x 6 weeks. In ER given 1L NSS, vancomycin WBC: 16. Lactate WNL Blood culture pending With history of MRSA and VRE from previous culture will continue daptomycin Podiatry consult, Dr. Stout saw patient in ER. Would plan for surgical debridement tomorrow EKG pending for preop evaluation NPO midnight MRI foot pending Hold aspirin for pending procedure CBC, BMP in a.m. Will need ID consult after cultures obtained in OR (3) Diarrhea: Plan: Diarrhea present upon arrival. Reported diarrhea x 2-3 days Is on antibiotics C. difficile, stool cultures pending Hold on Imodium until C. difficile results (4) Diabetes mellitus type 1: Plan: On chronic insulin A1c: 6.8 on 07/20/2023 Continue basal bolus insulin (5) CKD (chronic kidney disease), stage III: Plan: Cr: 2.75. Per chart review baseline appears low-mid 2's Continue renal vitamin If worsening renal functions may need to consider nephrology consult (6) Chronic hyperkalemia: Plan: K: 4.7 Continue Veltassa (7) Chronic anemia: Plan: Hgb: 11. Baseline appears~9 On Epogen weekly Continue folic acid, B12 (8) Hypothyroidism: Plan: Chronic Continue levothyroxine (9) Depression: Plan: Chronic, stable Continue fluoxetine, hydroxyzine (10) Dyslipidemia: Plan: Chronic Hold atorvastatin while on daptomycin (11) Chronic hyponatremia: Plan: Na:133 Monitor BMP DVT Prophylaxis SCDs Full Code as per discussion with pt Pt was seen and care coordinated with Dr Bowen. See addendum I spent a total of 75 minutes reviewing notes, outpatient records, labs, medication, coordinating, documenting and providing care for this patient excluding time spent in the performance of separately billed services. History of Present Illness Chief Complaint: Foot wound Primary Care Provider: [facility] Patient is 58-year-old male with PMH DM type I, CKD stage III, diabetic neuropathy, HTN, hypothyroidism, chronic hyperkalemia, chronic anemia, and other problems listed below who presents to the ED from [facility] for foot wound. History obtained from patient as well as inpatient chart review. Patient with history hospitalization 05/19/2023-05/28/2023 for polymicrobial right heel wound that was treated with ertapenem and amoxicillin. History hospitalization 07/19/2023-07/31/2023 for diabetic ulcer of right foot, osteomyelitis s/p wound debridement and calcaneal ostectomy, with wound vac. Bone pathology sample + MRSA, GBS, VRE. Initially treated with vancomycin and meropenem and then meropenem was discontinued and switched to daptomycin. ID consulted and recommended daptomycin x 6 weeks. Patient states has been on daily daptomycin. He states area has not been healing and is swollen, red and has discharge. He states he has been using wound vac. Chronic neuropathy and denies pain to foot. Patient states the past couple days has had loose watery stool several episodes daily. He states he started Imodium and today did not have loose stools. Denies fever/chills, diaphoresis, N/V, CABRERA, dizziness, syncope, CP, SOB, palpitations, cough, sore throat, rhinorrhea, abdominal pain, extremity weakness, urinary symptoms. Allergies Allergy/AdvReac Type Severity Reaction Status Date / Time sodium chloride AdvReac Unknown CONTRAINDIC Verified 07/19/23 15:29 [From [place] Nasal] ATED. Home Medications Medication Instructions Recorded Confirmed Type alendronate 70 mg tablet 70 mg PO WK 03/05/22 08/25/23 History aspirin 81 mg tablet,delayed 81 mg PO QAM 03/05/22 08/25/23 History release ergocalciferol (vitamin D2) 50 mcg 50 mcg PO WK 03/05/22 08/25/23 History (2,000 unit) capsule fluoxetine 20 mg capsule 40 mg PO QAM 03/05/22 08/25/23 History hydroxyzine pamoate 50 mg capsule 50 mg PO HS 03/05/22 08/25/23 History insulin regular human 100 unit/mL 2 unit subcut BID 03/05/22 08/25/23 History injection solution (Novolin R Regular U-100 Insulin) levothyroxine 150 mcg tablet 150 mcg PO DAILYBB 03/05/22 08/25/23 History metoclopramide HCl 10 mg tablet 10 mg PO ACHS 03/05/22 08/25/23 History ondansetron 8 mg disintegrating 8 mg PO .EVERY 8 HOURS 03/05/22 08/25/23 History tablet pantoprazole 40 mg tablet,delayed 40 mg PO BID 03/05/22 08/25/23 History release patiromer calcium sorbitex 25.2 25.2 g PO QPM 03/05/22 08/25/23 History gram oral powder packet (Veltassa) tamsulosin 0.4 mg capsule 0.4 mg PO HS 03/05/22 08/25/23 History vitamin B complex with C-folic 1 tab PO DAILY 03/05/22 08/25/23 History acid 0.8 mg-zinc citrate 50 mg tablet (Dialyvite 800 with Zinc 50) folic acid 1 mg tablet 1 mg PO QAM #30 tabs 03/06/22 08/25/23 Rx epoetin sanchez 10,000 unit/mL 10,000 unit subcut WK 11/21/22 08/25/23 History injection solution (Epogen) ascorbic acid (vitamin C) 500 mg 500 mg PO QAM 12/14/22 08/25/23 History tablet (Vitamin C) atorvastatin 40 mg tablet 40 mg PO HS 12/14/22 08/25/23 History insulin regular human 100 unit/mL 1 sliding scale dose subcut 12/14/22 08/25/23 History injection solution (Novolin R USEASDIRECTD PRN Hyperglycemia Regular U-100 Insulin) sodium bicarbonate 650 mg tablet 650 mg PO BID 12/14/22 08/25/23 History insulin glargine 100 unit/mL 14 unit subcut DAILY 05/19/23 08/25/23 History subcutaneous solution acetaminophen 500 mg tablet 1,000 mg PO TID 07/19/23 08/25/23 History (Tylenol Extra Strength) loperamide 2 mg capsule (Imodium 4 mg PO BID PRN LOOSE STOOLS 07/19/23 08/25/23 History A-D) Daptomycin 750mg/Ns 750 mg IV DAILY 08/25/23 08/25/23 History Lactobacillus acidoph-L.bulgaricus 1 tab PO TIDM 08/25/23 08/25/23 History 1 million cell tablet (Floranex) cyanocobalamin (vitamin B-12) 100 100 mcg PO DAILY 08/25/23 08/25/23 History mcg tablet (Vitamin B-12) dextrose 40 % oral gel (Glutose-15) 1 ea PO DAILY PRN Hypoglycemia 08/25/23 08/25/23 History glucagon 1 mg solution for 0 mg subcut UD PRN low blood sugar 08/25/23 08/25/23 History injection (Glucagon Emergency Kit) Past Med/Surg History Medical History HTN (hypertension) Osteomyelitis of ankle CKD (chronic kidney disease), stage III Diabetic ulcer of left ankle Diabetic neuropathy Chronic nausea Chronic hyperkalemia Chronic anemia Chronic hyponatremia CKD (chronic kidney disease) Psoriasis Orthostatic hypotension on chronic fludrocortisone Proteinuria NSTEMI (non-ST elevated myocardial infarction) Diabetes mellitus type 1 Non-STEMI (non-ST elevated myocardial infarction) Hypothyroidism Surgical History Status post right foot surgery Family History Other Heart disease Social History Smoking Status: Never smoker Tobacco Type: Cigarettes Second Hand Exposure: No; Hx Alcohol Use: No Hx Substance Use: No Preferred Language: Latvian Communication Ability: Effective Visual Impairment: No Limitations Scrap Materials Buyer Required: No Beliefs That Will Affect Care: None Current Living Situation: Other Current Living Situation Comment: skilled nursing Other Information That Helps Us Care for You: No Feels Safe at Home: Yes Safety Concerns: Feels Safe At This Time Assistive Devices: Wheelchair Review of Systems Review of Systems: All systems reviewed & are unremarkable except as noted in HPI & below Physical Exam Physical Exam: General: no distress, chronic ill appearing male Head: normocephalic, atraumatic Eyes: conjunctiva non-injected, anicteric ENT: normal inspection external ears, nose, mucous membranes moist Neck: supple, trachea midline Lungs: clear, no respiratory distress, no wheezing/rhonchi/rales CV: RRR, no murmur Abd: normal BS, soft, non-tender Ext: no cyanosis, no calf tenderness; RLE: +large deep ulcer to right calcaneus with foul odor with surrounding erythema and edema to entire foot, area nontender to palpation Neuro: A&O x 3, no focal deficits noted, normal affect Skin: warm, dry, RLE as above Results & Data Results & Data Vital Signs (Past 12 Hours) Vital Signs Temp Pulse Pulse Resp BP BP Pulse Ox 08/25/23 17:11 80 08/25/23 15:38 83 14 100 08/25/23 15:38 84 14 134/81 100 08/25/23 15:20 36.9 C 84 18 80/54 L 97 O2 Del Method 08/25/23 17:11 08/25/23 15:38 Room Air 08/25/23 15:38 Room Air 08/25/23 15:20 Room Air Laboratory Results Short CBC 08/25/23 Range/Units 15:56 WBC 16.72 H (4.8-10.8) K/ul Hgb 11.0 L (14.0-18.0) g/dl Hct 34.4 L (42.0-52.0) % Plt Count 677 H (130-400) K/uL BMP 08/25/23 15:56 Sodium 133 L Potassium 4.7 Chloride 104 Carbon Dioxide 21 BUN 34 H Creatinine 2.75 H Glucose 110 H Calcium 8.6 Liver Function 08/25/23 Range/Units 15:56 Total Bilirubin 0.3 (0.2-1.0) mg/dl Direct Bilirubin 0.1 (0-0.2) mg/dl AST 58 H (13-39) U/L ALT 47 (7-52) U/L Alkaline Phosphatase 133 H (34-104) U/L Albumin 3.0 L (3.4-5.0) gm/dl Diagnostic Findings Foot X-Ray 08/25/23 15:23 RIGHT FOOT 3 VIEWS CLINICAL HISTORY: Right foot pain. Infection. FINDINGS: 3 views of the right foot are correlated with CT scan of the right foot dated 07/19/2023. The skeletal structures are osteopenic. No acute fracture is seen. There is a rocker-bottom deformity. Extensive postsurgical change and fusion is seen throughout the midfoot. A cortical lag screw and buttress plate transfixes the first tarsometatarsal articulations. Cortical lag screws also transfix the second through fifth tarsometatarsal articulations. Mild osteoarthritic changes seen involving the metatarsophalangeal and interphalangeal joints. There is a large dorsal soft tissue heel ulcer/wound. This appears to extend to the bony cortex of the dorsal calcaneus. Overlying ba ndage material significantly obscures the bony cortex. Soft tissue edema throughout the hindfoot likely represents cellulitis. No soft tissue gas is seen. There is advanced atherosclerotic calcification of the regional arteries. IMPRESSION: 1. Large dorsal heel ulcer/wound which appears to reach the calcaneal cortex. The underlying cortex is not well assessed due to overlying bandage material. Correlate with direct visualization. 2. No fracture is seen. 3. Extensive postsurgical change and deformity is seen throughout the right foot as above. 4. Soft tissue edema of the hindfoot likely represents cellulitis. Correlate clinically. Dictated: 08/25/2023 3:52 PM Transcribed: 08/25/2023 4:08 PM Nikki [id number] YANET_Marvin [id number] Electronically signed by: Kendall Pardo M.D. 08/25/2023 5:03 PM Supervising Physician Co-Signing Physician Notes Pt seen and examined by myself, Mirtha Bowen MD on the day of service. Care was coordinated with Kinjal Nunes PA-C. Patient is a 58yoM with PMHx significant for DM type I with diabetic neuropathy, CKD stage III, HTN, hypothyroidism, chronic hyperkalemia, chronic anemia, chronic right heel wound presenting with concern for worsening heel infection from [facility]. Per pt, he was having a regular nurse check of the wound when he was advised to follow up for further evaluation. Denied fevers, chills or night sweats, states he is cold at baseline. Was on IV Dapto and using wound vac at the skilled nursing per pt as well. WBC 16K, Hgb 11, platelets 677K, Na 133, Cr 2.75, Glucose 110, AST 58, ALT 47, Alk phos 133, procal 0.62 UA with blood, trace ketones, urine protein Foot XRAY- notes cellulitis and wound reaching calcaneal cortex MRI ankle- notes worsening osteomyelitis of calcaneal tuberosity Temp 36.9 on arrival, BP 85/54, HR 84 On exam, alert and oriented no acute distress. RRR, breath sounds clear bilaterally. R foot with open wound on heel with deep tissue visible, noted surrounding erythema and swelling around the heel R foot cellulitis/R calcaneus Osteomyelitis- podiatry consulted, appreciate recs. Given pt on continuous abx to which his wound infection had been susceptible, likely needs debridement/?amputation. Continue with Daptomycin at this time. Appreciate podiatry recs. Consider wound consult, ID consult if/when repeat cultures obtained. Acute on chronic kidney disease- cr elevated above recent baseline, gentle hydration. Monitor with AM labs. Otherwise as above. (1) Diabetic ulcer of right foot Diabetes mellitus type: other specified (including BRITT) Diabetic foot ulcer location: heel Non-pressure ulcer stage: unspecified non-pressure ulcer stage Qualified Code(s): E13.621 - Other specified diabetes mellitus with foot ulcer; L97.419 - Non-pressure chronic ulcer of right heel and midfoot with unspecified severity
[2023-08-25] MEDS: VANCOMYCIN HCL 1,500 MG in SODIUM CHLORIDE 0.9% 500 ML IV ONE (18:40)
[2023-08-25] MEDS: Patient's HEIGHT &/or WEIGHT Needed STA (19:12)
--- NOTE | 2023-08-25 19:21 | Orthopedic Consultation ---
Date of Consultation August 25, 2023 Assessment & Plan (1) Osteomyelitis: Patient seen and evaluated in [facility] Emergency Department POD C03. Reviewed right heel wound, exposed bone, adjacent erythema WBC 17 Reviewed diagnostic x-ray, MRI. Patient admitted to floor for right foot cellulitis, osteomyelitis right calcaneus. Plan for right heel wound debridement, excision of nonviable bone right foot. Thank you for allowing me to participate in the care of this Patient. (2) Diabetic infection of right foot: (3) Diabetic neuropathy: History of Present Illness History of Present Illness Patient is a 58-year-old male seen in [facility] Emergency Department POD C03 for right heel wound. Patient has a past medical history significant for DM type I, CKD stage III, diabetic neuropathy, HTN, hypothyroidism, chronic hyperkalemia, chronic anemia. Patient is well known to me from prior admittance. Patient has prior admittance to [facility] most recently 07/19/23 though 07/31/23 and earlier 05/19/23 through 05/28/23 for polymicrobial right heel wound. Patient was discharged on 6 weeks IV daptomycin. Patient reports worsening of his right heel wound over the past couple of days and seen today with malodor during negative pressure wound vac change. Reports that he was evaluated in the [facility] today and they recommended he be evaluated at [facility] ED. Allergies Allergy/AdvReac Type Severity Reaction Status Date / Time sodium chloride AdvReac Unknown CONTRAINDIC Verified 07/19/23 15:29 [From [place] Nasal] ATED. Home Medications Medication Instructions Recorded Confirmed Type alendronate 70 mg tablet 70 mg PO WK 03/05/22 08/25/23 History aspirin 81 mg tablet,delayed 81 mg PO QAM 03/05/22 08/25/23 History release ergocalciferol (vitamin D2) 50 mcg 50 mcg PO WK 03/05/22 08/25/23 History (2,000 unit) capsule fluoxetine 20 mg capsule 40 mg PO QAM 03/05/22 08/25/23 History hydroxyzine pamoate 50 mg capsule 50 mg PO HS 03/05/22 08/25/23 History insulin regular human 100 unit/mL 2 unit subcut BID 03/05/22 08/25/23 History injection solution (Novolin R Regular U-100 Insulin) levothyroxine 150 mcg tablet 150 mcg PO DAILYBB 03/05/22 08/25/23 History metoclopramide HCl 10 mg tablet 10 mg PO ACHS 03/05/22 08/25/23 History ondansetron 8 mg disintegrating 8 mg PO .EVERY 8 HOURS 03/05/22 08/25/23 History tablet pantoprazole 40 mg tablet,delayed 40 mg PO BID 03/05/22 08/25/23 History release patiromer calcium sorbitex 25.2 25.2 g PO QPM 03/05/22 08/25/23 History gram oral powder packet (Veltassa) tamsulosin 0.4 mg capsule 0.4 mg PO HS 03/05/22 08/25/23 History vitamin B complex with C-folic 1 tab PO DAILY 03/05/22 08/25/23 History acid 0.8 mg-zinc citrate 50 mg tablet (Dialyvite 800 with Zinc 50) folic acid 1 mg tablet 1 mg PO QAM #30 tabs 03/06/22 08/25/23 Rx epoetin sanchez 10,000 unit/mL 10,000 unit subcut WK 11/21/22 08/25/23 History injection solution (Epogen) ascorbic acid (vitamin C) 500 mg 500 mg PO QAM 12/14/22 08/25/23 History tablet (Vitamin C) atorvastatin 40 mg tablet 40 mg PO HS 12/14/22 08/25/23 History insulin regular human 100 unit/mL 1 sliding scale dose subcut 12/14/22 08/25/23 History injection solution (Novolin R USEASDIRECTD PRN Hyperglycemia Regular U-100 Insulin) sodium bicarbonate 650 mg tablet 650 mg PO BID 12/14/22 08/25/23 History insulin glargine 100 unit/mL 14 unit subcut DAILY 05/19/23 08/25/23 History subcutaneous solution acetaminophen 500 mg tablet 1,000 mg PO TID 07/19/23 08/25/23 History (Tylenol Extra Strength) loperamide 2 mg capsule (Imodium 4 mg PO BID PRN LOOSE STOOLS 07/19/23 08/25/23 History A-D) Daptomycin 750mg/Ns 750 mg IV DAILY 08/25/23 08/25/23 History Lactobacillus acidoph-L.bulgaricus 1 tab PO TIDM 08/25/23 08/25/23 History 1 million cell tablet (Floranex) cyanocobalamin (vitamin B-12) 100 100 mcg PO DAILY 08/25/23 08/25/23 History mcg tablet (Vitamin B-12) dextrose 40 % oral gel (Glutose-15) 1 ea PO DAILY PRN Hypoglycemia 08/25/23 08/25/23 History glucagon 1 mg solution for 0 mg subcut UD PRN low blood sugar 08/25/23 08/25/23 History injection (Glucagon Emergency Kit) Patient History Medical History HTN (hypertension) Osteomyelitis of ankle CKD (chronic kidney disease), stage III Diabetic ulcer of left ankle Diabetic neuropathy Chronic nausea Chronic hyperkalemia Chronic anemia Chronic hyponatremia CKD (chronic kidney disease) Psoriasis Orthostatic hypotension on chronic fludrocortisone Proteinuria NSTEMI (non-ST elevated myocardial infarction) Diabetes mellitus type 1 Non-STEMI (non-ST elevated myocardial infarction) Hypothyroidism Surgical History Status post right foot surgery Family History Other Heart disease Social History Smoking Status: Never smoker Tobacco Type: Cigarettes Second Hand Exposure: No; Hx Alcohol Use: No Hx Substance Use: No Preferred Language: German Communication Ability: Effective Visual Impairment: No Limitations Motor Boss Required: No Beliefs That Will Affect Care: None Current Living Situation: Other Current Living Situation Comment: group home Feels Safe at Home: Yes Assistive Devices: Wheelchair Review of Systems Review of Systems: All systems reviewed & are unremarkable except as noted in HPI & below Physical Exam Constitutional: + frail appearing, cooperative and comfo rtable Eyes: normal visual case by confrontation Respiratory: normal respiratory effort Cardiovascular: Rate/Rhythm: regular rate and regular rhythm Vessels: posterior tibial pulses present and dorsalis pedis pulses present Musculoskeletal: Extremities: extremities normal to inspection Skin: + ulcer (right full thickness exposed ne crotic calcaneus ) and + erythema (Right heel wound) Neurologic: Absent epicritic sensation to RLE Psychiatric: Orientation: alert and oriented x 3 Results & Data Vital Signs (Past 12 Hours) Vital Signs Temp Pulse Pulse Resp BP BP Pulse Ox 08/25/23 17:11 80 08/25/23 15:38 83 14 100 08/25/23 15:38 84 14 134/81 100 08/25/23 15:20 36.9 C 84 18 80/54 L 97 O2 Del Method 08/25/23 17:11 08/25/23 15:38 Room Air 08/25/23 15:38 Room Air 08/25/23 15:20 Room Air Diagnostic Findings Exam(s): MRI RIGHT ANKLE Without Contrast EXAM: MR Right Lower Extremity Without Intravenous Contrast, Ankle CLINICAL HISTORY: Reason for exam: r/o osteomyelitis Calcaneus. TECHNIQUE: Multiplanar magnetic resonance images of the right ankle without intravenous contrast. COMPARISON: MR right ankle 07/20/23 FINDINGS: Region of soft tissue ulceration over the calcaneal tuberosity appears increased from prior exam. There is more extensive T2 hyperintense, T1 hypointense marrow signal abnormality within the calcaneal tuberosity concerning for worsening osteomyelitis. No additional foci of osteomyelitis are demonstrated. There is persistent anterior subluxation of the talus with respect to the tibia, associated with small tibiotalar joint effusion. Hardware is noted within the midfoot and forefoot. IMPRESSION: Worsening osteomyelitis of the calcaneal tuberosity. Electronically signed by: Jorden Griffith M.D. 08/25/23 23:20 PM Dictated: 08/25/[id number] Transcribed: 08/25/232319 (1) Osteomyelitis Laterality: right Osteomyelitis location: foot Osteomyelitis type: unspecified type Qualified Code(s): M86.9 - Osteomyelitis, unspecified
[2023-08-25] MEDS ORDERED: PROMETHAZINE HCL 6.25 MG in SODIUM CHLORIDE 0.9% 50 ML IV PRN (21:36)
[2023-08-25] MEDS ORDERED: GLUCAGON FOR INJ 1 MG VIAL SQ PRN (21:36)
[2023-08-25] MEDS ORDERED: GLUCOSE 10 TAB/TUBE PO PRN (21:36)
[2023-08-25] MEDS ORDERED: GLUCOSE 40% GEL 15 GM TUBE PO PRN (21:36)
[2023-08-25] MEDS ORDERED: POLYETHYLENE (MIRALAX) 17 GM PACK PO PRN (21:36)
[2023-08-25] MEDS: CARBOHYDRATES FOR HYPOGLYCEMIA PO PRN (22:07)
[2023-08-25] MEDS: METOCLOPRAMIDE HCL 10 MG TABLET PO SCH (22:53)
[2023-08-25] MEDS: TAMSULOSIN HCL 0.4 MG CAP PO SCH (22:53)
[2023-08-25] MEDS: DEXTROSE 50% 50 ML SYRINGE IV PRN (22:53)
[2023-08-25] MEDS: PANTOprazole 40 MG TAB PO SCH (22:54)
[2023-08-25] MEDS: SODIUM BICARBONATE 650 MG TAB PO SCH (22:54)
[2023-08-25] MEDS: ACETAMINOPHEN 500 MG TAB PO SCH (22:54)
[2023-08-25] MEDS: hydrOXYzine HCl 25 MG TAB PO SCH (22:54)
[2023-08-25] MEDS: INSULIN ASPART PER UNIT CHARGE SC SCH ×2 (23:05→23:40)
[2023-08-25 23:15] LABS: Appearance Urine Clear (Clear); Bacteria Urine Automated Negative (Negative); Bilirubin Urine Negative (Negative); Blood Urine 1+ (Negative); Cast Urine Automated 0 /lpf (0-5); Color Urine Dark Yellow; Epithelial Cell Urine Auto 0-5 /lpf (0-5); Glucose Urine UA Negative (Negative); Ketones Urine Trace (Negative); Leukocyte Esterase Urine Negative (Negative); Nitrite Urine Negative (Negative); Protein Urine 2+ (Negative); RBC Urine Automated 0-4 /hpf (0-4); Specific Gravity Urine 1.019 (1.000-1.030); Urobilinogen Urine Negative (Negative); pH Urine 5.5 (4.5-7.5)
--- NOTE | 2023-08-25 23:21 | Magnetic Resonance Report ---
Exam(s): MRI RIGHT ANKLE Without Contrast EXAM: MR Right Lower Extremity Without Intravenous Contrast, Ankle CLINICAL HISTORY: Reason for exam: r/o osteomyelitis Calcaneus. TECHNIQUE: Multiplanar magnetic resonance images of the right ankle without intravenous contrast. COMPARISON: MR right ankle 07/20/23 FINDINGS: Region of soft tissue ulceration over the calcaneal tuberosity appears increased from prior exam. There is more extensive T2 hyperintense, T1 hypointense marrow signal abnormality within the calcaneal tuberosity concerning for worsening osteomyelitis. No additional foci of osteomyelitis are demonstrated. There is persistent anterior subluxation of the talus with respect to the tibia, associated with small tibiotalar joint effusion. Hardware is noted within the midfoot and forefoot. IMPRESSION: Worsening osteomyelitis of the calcaneal tuberosity. Electronically signed by: Jorden Griffith M.D. 08/25/23 23:20 PM
[2023-08-25] MEDS: D5W AND NSS 1,000 ML IV SCH (23:57)
[2023-08-26] MEDS: LEVOTHYROXINE SODIUM 150 MCG TABLET PO SCH (06:10)
[2023-08-26] MEDS: DAPTOmycin 475 MG in SYRINGE 0 ML IV SCH (06:10)
--- NOTE | 2023-08-26 07:45 | Anesthesiology Consultation ---
Date of Service August 26, 2023 Assessment & Plan Chart Review Chart Review: Acceptable Risk for Surgery and Patient NOT seen in Pre Admission Testing Consults Requested none ASA ASA4 Proposed Anesthesia Anesthesia Type: MAC History Surgery Operation Date: 08/26/23 10:30 Proposed Procedures p right partial excision calcaneous osteotomy(Right) - Celestino Stout DPM, MS Height/Weight Height: 6 ft Weight: 75.1 kg Allergies Allergy/AdvReac Type Severity Reaction Status Date / Time sodium chloride AdvReac Unknown CONTRAINDIC Verified 07/19/23 15:29 [From [place] Nasal] ATED. Medications Home Medications Medication Instructions Recorded Confirmed Last Taken alendronate 70 mg tablet 70 mg PO WK 03/05/22 08/25/23 07/18/23 aspirin 81 mg tablet,delayed 81 mg PO QAM 03/05/22 08/25/23 08/25/23 release ergocalciferol (vitamin D2) 50 mcg 50 mcg PO WK 03/05/22 08/25/23 08/24/23 (2,000 unit) capsule fluoxetine 20 mg capsule 40 mg PO QAM 03/05/22 08/25/23 08/25/23 hydroxyzine pamoate 50 mg capsule 50 mg PO HS 03/05/22 08/25/23 08/24/23 insulin regular human 100 unit/mL 2 unit subcut BID 03/05/22 08/25/23 08/25/23 injection solution (Novolin R Regular U-100 Insulin) levothyroxine 150 mcg tablet 150 mcg PO DAILYBB 03/05/22 08/25/23 08/25/23 metoclopramide HCl 10 mg tablet 10 mg PO ACHS 03/05/22 08/25/23 08/25/23 ondansetron 8 mg disintegrating 8 mg PO .EVERY 8 HOURS 03/05/22 08/25/23 08/25/23 tablet pantoprazole 40 mg tablet,delayed 40 mg PO BID 03/05/22 08/25/23 08/25/23 release patiromer calcium sorbitex 25.2 25.2 g PO QPM 03/05/22 08/25/23 07/18/23 gram oral powder packet (Veltassa) tamsulosin 0.4 mg capsule 0.4 mg PO HS 03/05/22 08/25/23 08/24/23 vitamin B complex with C-folic 1 tab PO DAILY 03/05/22 08/25/23 08/25/23 acid 0.8 mg-zinc citrate 50 mg tablet (Dialyvite 800 with Zinc 50) folic acid 1 mg tablet 1 mg PO QAM #30 tabs 03/06/22 08/25/23 08/25/23 epoetin sanchez 10,000 unit/mL 10,000 unit subcut WK 11/21/22 08/25/23 08/25/23 injection solution (Epogen) ascorbic acid (vitamin C) 500 mg 500 mg PO QAM 12/14/22 08/25/23 08/25/23 tablet (Vitamin C) atorvastatin 40 mg tablet 40 mg PO HS 12/14/22 08/25/23 08/24/23 insulin regular human 100 unit/mL 1 sliding scale dose subcut 12/14/22 08/25/23 05/19/23 injection solution (Novolin R USEASDIRECTD PRN Hyperglycemia Regular U-100 Insulin) sodium bicarbonate 650 mg tablet 650 mg PO BID 12/14/22 08/25/23 08/25/23 insulin glargine 100 unit/mL 14 unit subcut DAILY 05/19/23 08/25/23 08/25/23 subcutaneous solution acetaminophen 500 mg tablet 1,000 mg PO TID 07/19/23 08/25/23 08/25/23 (Tylenol Extra Strength) loperamide 2 mg capsule (Imodium 4 mg PO BID PRN LOOSE STOOLS 07/19/23 08/25/23 07/18/23 10:53 A-D) Daptomycin 750mg/Ns 750 mg IV DAILY 08/25/23 08/25/23 08/24/23 Lactobacillus acidoph-L.bulgaricus 1 tab PO TIDM 08/25/23 08/25/23 Unknown 1 million cell tablet (Floranex) cyanocobalamin (vitamin B-12) 100 100 mcg PO DAILY 08/25/23 08/25/23 08/25/23 mcg tablet (Vitamin B-12) dextrose 40 % oral gel (Glutose-15) 1 ea PO DAILY PRN Hypoglycemia 08/25/23 08/25/23 08/04/23 glucagon 1 mg solution for 0 mg subcut UD PRN low blood sugar 08/25/23 08/25/23 08/13/23 injection (Glucagon Emergency Kit) Active Medications Generic Name Dose Route Start Last Admin Trade Name Bill PRN Reason Stop Dose Admin Acetaminophen 1,000 mg 08/25/23 22:00 08/25/23 22:54 Acetaminophen 500 Mg Tab PO 09/24/23 21:59 1,000 mg TID MARY Administration Dextrose 25 - 50 ml 08/25/23 21:36 08/25/23 22:53 Dextrose 50% 50 Ml Syringe IV 09/24/23 21:35 25 ml UD PRN Administration Hypoglycemia Protocol Protocol Hydroxyzine HCl 50 mg 08/25/23 22:00 08/25/23 22:54 Hydroxyzine Hcl 25 Mg Tab PO 09/24/23 21:59 50 mg HS MARY Administration Daptomycin 475 mg/ Syringe 9.5 mls @ 4.75 mls/min 08/26/23 06:00 08/26/23 06:10 IV 10/07/23 05:59 4.75 mls/min Q24H MARY Administration Protocol Dextrose/Sodium Chloride 1,000 mls @ 80 mls/hr 08/25/23 23:45 08/25/23 23:57 D5w And Nss IV 08/27/23 00:44 80 mls/hr .[id number] MARY Administration Insulin Aspart 0 units 08/26/23 00:00 08/26/23 06:16 Insulin Aspart Per Unit Charge SC 09/25/23 00:00 1 units Q6 MARY Administration Levothyroxine Sodium 150 mcg 08/26/23 06:30 08/26/23 06:10 Levothyroxine Sodium 150 Mcg Tablet PO 09/25/23 06:29 150 mcg DAILYBB MARY Administration Metoclopramide HCl 10 mg 08/25/23 22:00 08/25/23 22:53 Metoclopramide Hcl 10 Mg Tablet PO 09/24/23 21:59 10 mg ACHS MARY Administration Miscellaneous 15 - 30 gm 08/25/23 21:36 08/25/23 22:25 Carbohydrates For Hypoglycemia PO 09/24/23 21:35 15 gm UD PRN Administration Hypoglycemia Protocol Pantoprazole Sodium 40 mg 08/25/23 22:00 08/25/23 22:54 Pantoprazole 40 Mg Tab PO 09/24/23 21:59 40 mg BID MARY Administration Sodium Bicarbonate 650 mg 08/25/23 22:00 08/25/23 22:54 Sodium Bicarbonate 650 Mg Tab PO 09/24/23 21:59 650 mg BID MARY Administration Tamsulosin HCl 0.4 mg 08/25/23 22:00 08/25/23 22:53 Tamsulosin Hcl 0.4 Mg Cap PO 09/24/23 21:59 0.4 mg HS MARY Administration Past Medical History Medical History HTN (hypertension) Osteomyelitis of ankle CKD (chronic kidney disease), stage III Diabetic ulcer of left ankle Diabetic neuropathy Chronic nausea Chronic hyperkalemia Chronic anemia Chronic hyponatremia CKD (chronic kidney disease) Psoriasis Orthostatic hypotension on chronic fludrocortisone Proteinuria NSTEMI (non-ST elevated myocardial infarction) Diabetes mellitus type 1 Non-STEMI (non-ST elevated myocardial infarction) Hypothyroidism ASCVD Aorta Exercise / Class Metabolic Activity III < 4 Walking/Shop/Light housework Past Family History Family History Other Heart disease Past Surgical History Surgical History Status post right foot surgery Past Anesthesia History No Hx of Anesthesia Complications and No Family Hx of Anesthesia Complications History of PONV No Hx of PONV and No Hx of Motion Sickness Social History Smoking Status: Never smoker tobacco type: cigarettes Hx Alcohol Use: No Hx Substance Use: No substance use type: does not use Physical Exam Vital Signs Last Vital Signs Temp 37.0 C 08/26/23 07:39 Pulse 83 08/26/23 07:39 Resp 18 08/26/23 07:39 BP 115/64 08/26/23 07:39 Pulse Ox 96 08/26/23 07:39 O2 Del Method Room Air 08/26/23 07:39 Testing Laboratory Results 08/25/23 15:56 08/25/23 15:56 Urine Color Dark Yellow 08/25/23 23:00 Urine Appearance Clear (Clear) 08/25/23 23:00 Urine pH 5.5 (4.5-7.5) 08/25/23 23:00 Ur Specific [place] 1.019 (1.000-1.030) 08/25/23 23:00 Urine Protein 2+ (Negative) H 08/25/23 23:00 Urine Glucose (UA) Negative (Negative) 08/25/23 23:00 Urine Ketones Trace (Negative) H 08/25/23 23:00 Urine Nitrite Negative (Negative) 08/25/23 23:00 Ur Leukocyte Esterase Negative (Negative) 08/25/23 23:00 Urine WBC (Auto) 1-5 /hpf (0-5) 08/25/23 23:00 Urine RBC (Auto) 0-4 /hpf (0-4) 08/25/23 23:00 U Hyaline Cast (Auto) 0 /lpf (0-5) 08/25/23 23:00 U Epithel Cells (Auto) 0-5 /lpf (0-5) 08/25/23 23:00 Urine Bacteria (Auto) Negative (Negative) 08/25/23 23:00 08/26/23 08/25/23 08/25/23 06:12 23:08 22:44 POC Glucose 157 H 128 H 61 L* 08/25/23 08/25/23 22:25 22:02 POC Glucose 52 L* 53 L* Electrocardiogram Date: 08/25/23 Findings: + NSR @ (@ 97;Lateral infarct,age ?;ST & T wave abnl) Chest X-Ray Date: 07/27/23 Findings: + NAD and + other (PICC line ends in SVC) Echocardiogram Date: 06/30/20 EF: 55% LV Function: normal RWMA: + none Other Findings: + LVH (mild) and + diastolic dysfunction (Grade 2) Valvular Disease: + no significant valvular disease
[2023-08-26 08:01] LABS: Basophils # (auto) 0.13 K/uL (0.00-0.20); Basophils % (auto) 0.8 %; Eosinophils # (auto) 0.06 K/uL (0.00-0.50); Eosinophils % (auto) 0.4 %; Hematocrit (blood only) 29.1 % (42.0-52.0); Hemoglobin 9.4 g/dl (14.0-18.0); Immature Granulocytes # (auto) 0.09 K/uL (0.01-0.20); Immature Granulocytes % (auto) 0.5 %; Lymphocytes # (auto) 1.76 K/uL (1.20-3.40); Lymphocytes % (auto) 10.6 %; Mean Corpuscular Hemoglobin 27.6 pg (25.0-34.0); Mean Corpuscular Hgb Conc 32.3 g/dL (32.0-36.0); Mean Corpuscular Volume 85.3 fL (80.0-100.0); Mean Platelet Volume 8.9 fL (9.4-12.4); Monocytes # (auto) 1.93 K/uL (0.11-0.59); Monocytes % (auto) 11.6 %; Neutrophils # (auto) 12.61 K/uL (1.40-6.50); Neutrophils % (auto) 76.1 %; Platelet Count 632 K/uL (130-400); RDW Coefficient of Variation 16.2 % (11.5-14.5); RDW Standard Deviation 50.6 fL (36.4-46.3); Red Blood Count 3.41 M/uL (4.70-6.10); White Blood Count 16.58 K/ul (4.8-10.8)
[2023-08-26 08:12] LABS: Albumin Globulin Ratio 0.8 (0.9-2); Albumin Level 2.5 gm/dl (3.4-5.0); Bilirubin,Total 0.3 mg/dl (0.2-1.0); Calcium 7.5 mg/dl (8.6-10.3); Creatinine Clr Calc Pharmacy 35.4 ml/min; Est GFR (African American) 33.2 ml/min; Est GFR (Non-African American) 28.6 ml/min; Globulin 3.1 gm/dl (2.5-4.0); Potassium 4.6 mmol/L (3.5-5.1); Total Protein 5.6 gm/dl (6.0-8.3)
[2023-08-26] MEDS: NEPHROCAPS PO SCH (09:32)
[2023-08-26] MEDS: CYANOCOBALAMIN (B-12) 100 MCG TABLET PO SCH (09:32)
[2023-08-26] MEDS: FLUoxetine HCL 20 MG CAP PO SCH (09:32)
[2023-08-26] MEDS: FOLIC ACID 1 MG TAB PO SCH (09:32)
[2023-08-26] MEDS: ASCORBIC ACID 500 MG TAB PO SCH (09:32)
--- NOTE | 2023-08-26 13:28 | Hospitalist Progress Note ---
Date of Service August 26, 2023 Assessment & Plan (1) Diabetic ulcer of right foot: (2) Cellulitis of right foot: Plan: Patient is 58-year-old male with PMH DM type I, CKD stage III, diabetic neuropathy, HTN, hypothyroidism, chronic hyperkalemia, chronic anemia, and other problems listed below who presents to the ED from [facility] for worsening foot wound. Denies fever, chills History 05/2023 polymicrobial right heel wound that was treated with ertapenem and amoxicillin. 06/2023-07/2023 diabetic ulcer of right foot, osteomyelitis s/p wound debridement and calcaneal ostectomy, with wound vac. Bone pathology sample + MRSA, GBS, VRE. ID had recommended daptomycin x 6 weeks. Leukocytosis present on admission MRI of foot shows worsening osteomyelitis of the calcaneal tuberosity Orthopedic on consult; plan for right heel wound debridement and excision of nonviable bone. N.p.o. from midnight Aspirin currently on hold Continue IV antibiotics with daptomycin Will follow-up on blood culture (3) Diarrhea: Plan: Diarrhea present upon arrival. Reported diarrhea x 2-3 days Is on antibiotics C. difficile, stool cultures pending Hold on Imodium until C. difficile results (4) Diabetes mellitus type 1: Plan: On chronic insulin A1c: 6.8 on 07/20/2023 Continue basal bolus insulin (5) CKD (chronic kidney disease), stage III: Plan: Cr: 2.75 on admission Improvement on subsequent lab. Avoid nephrotoxic agents (6) Chronic hyperkalemia: Plan: K: 4.7 Continue Veltassa (7) Chronic anemia: Plan: Hgb: 11. Baseline appears~9 On Epogen weekly Continue folic acid, B12 (8) Hypothyroidism: Plan: Chronic Continue levothyroxine (9) Depression: Plan: Chronic, stable Continue fluoxetine, hydroxyzine (10) Dyslipidemia: Plan: Chronic Hold atorvastatin while on daptomycin (11) Chronic hyponatremia: Plan: Na:133 Monitor BMP DVT Prophylaxis SCDs Full Code as per discussion with pt Time spent evaluating patient, direct bedside care, chart review, placing orders, interpretation of diagnostic studies, discussion with consultants, patient, and family members, as well as other required patient management activities is 55-minute Please note the above document was generated using voice recognition software. It may contain grammatical, syntax or spelling errors. Any formal questions or concerns about the content, text or information contained within the body of this dictation should be directly addressed to the provider for clarification Admission and Anticipated Discharge Date Admission Date: August 25, 2023 Subjective Patient seen and examined at bedside. Is comfortable lying on the bed; not in distress. Denies any pain. No overnight events. Review of Systems Review of Systems: All systems reviewed & are unremarkable except as noted in Subjective Physical Exam Physical Exam: General: no distress, chronic ill appearing male Head: normocephalic, atraumatic Eyes: conjunctiva non-injected, anicteric ENT: normal inspection external ears, nose, mucous membranes moist Neck: supple, trachea midline Lungs: clear, no respiratory distress, no wheezing/rhonchi/rales CV: RRR, no murmur Abd: normal BS, soft, non-tender Ext: no cyanosis, no calf tenderness; RLE: +large deep ulcer to right calcaneus with foul odor with surrounding erythema and edema to entire foot. Soakage present. Neuro: A&O x 3, no focal deficits noted, normal affect Skin: warm, dry, RLE as above Results & Data Results & Data Vital Signs (Past 12 Hours) Vital Signs Temp Pulse Pulse Resp BP Pulse Ox O2 Del Method 08/26/23 11:08 37.2 C 80 18 119/60 95 Room Air 08/26/23 07:39 37.0 C 83 18 115/64 96 Room Air 08/26/23 07:30 82 08/26/23 02:26 37.8 C H 90 16 129/66 95 Room Air (1) Diabetic ulcer of right foot Diabetes mellitus type: other specified (including BRITT) Diabetic foot ulcer location: heel Non-pressure ulcer stage: unspecified non-pressure ulcer stage Qualified Code(s): E13.621 - Other specified diabetes mellitus with foot ulcer; L97.419 - Non-pressure chronic ulcer of right heel and midfoot with unspecified severity
[2023-08-26] MEDS: PATIROMER CALCIUM SORBITEX 8.4 GM PACK PO SCH (18:01)
[2023-08-26] MEDS: LANTUS PER UNIT CHARGE SQ SCH (22:25)
[2023-08-27] MEDS: D5W AND NSS 1,000 ML IV SCH (04:24)
--- NOTE | 2023-08-27 06:15 | Electrocardiogram Report ---
Test Reason : Blood Pressure : / mmHG Vent. Rate : 097 BPM Atrial Rate : 097 BPM P-R Int : 112 ms QRS Dur : 082 ms QT Int : 354 ms P-R-T Axes : 086 108 -27 degrees QTc Int : 449 ms Poor data quality, interpretation may be adversely affected Normal sinus rhythm Lateral infarct (cited on or before 25-AUG-2023) Abnormal ECG When compared with ECG of 19-May-2023 16:58, T wave inversion now evident in Inferior leads Lateral infarct is now Present Confirmed by Tejas Noland ([id number]) on 08/27/2023 6:14:39 AM Referred By: REFERRED SELF Confirmed By:Tejas Noland
[2023-08-27 07:24] LABS: Basophils # (auto) 0.15 K/uL (0.00-0.20); Basophils % (auto) 0.7 %; Eosinophils # (auto) 0.05 K/uL (0.00-0.50); Eosinophils % (auto) 0.2 %; Hematocrit (blood only) 32.7 % (42.0-52.0); Hemoglobin 10.2 g/dl (14.0-18.0); Immature Granulocytes # (auto) 0.19 K/uL (0.01-0.20); Immature Granulocytes % (auto) 0.9 %; Lymphocytes # (auto) 0.88 K/uL (1.20-3.40); Mean Corpuscular Hemoglobin 27.1 pg (25.0-34.0); Mean Corpuscular Hgb Conc 31.2 g/dL (32.0-36.0); Mean Corpuscular Volume 86.7 fL (80.0-100.0); Mean Platelet Volume 8.6 fL (9.4-12.4); Monocytes # (auto) 1.98 K/uL (0.11-0.59); Monocytes % (auto) 9.1 %; Neutrophils # (auto) 18.61 K/uL (1.40-6.50); Neutrophils % (auto) 85.1 %; Platelet Count 669 K/uL (130-400); RDW Coefficient of Variation 16.4 % (11.5-14.5); RDW Standard Deviation 51.3 fL (36.4-46.3); Red Blood Count 3.77 M/uL (4.70-6.10); White Blood Count 21.86 K/ul (4.8-10.8)
[2023-08-27] MEDS ORDERED: ROCURONIUM BROMIDE 10 MG/ML 5 ML VIAL IV ONE (07:37)
[2023-08-27] MEDS ORDERED: ONDANSETRON INJ 2 MG/ML 2 ML VIAL ONE (07:37)
[2023-08-27] MEDS ORDERED: fentaNYL citrate PF 100 MCG/2 ML VIAL ONE (07:37)
[2023-08-27] MEDS ORDERED: PROPOFOL IV EMULSION 10 MG/ML 20 ML VIAL IV ONE (07:37)
[2023-08-27] MEDS ORDERED: SUCCINYLCHOLINE CHLORIDE 20 MG/ML 10 ML VIAL IV ONE (07:37)
[2023-08-27] MEDS ORDERED: DEXAMETHASONE SOD INJ 4 MG/ML VIAL ONE (07:37)
[2023-08-27] MEDS ORDERED: SUGAMMADEX SODIUM 200 MG/2 ML VIAL IV ONE (07:39)
[2023-08-27 07:40] LABS: BUN Creatinine Ratio 13.7 (10-20); C Reactive Protein 19.15 mg/dl (0-0.5); Calcium 7.7 mg/dl (8.6-10.3); Creatinine Clr Calc Pharmacy 40.3 ml/min; Est GFR (African American) 40.1 ml/min; Est GFR (Non-African American) 34.6 ml/min
[2023-08-27] MEDS ORDERED: ePHEDrine sulfate 50 MG/ML AMP IV PRN (07:46)
[2023-08-27] MEDS ORDERED: ATROPINE SULFATE 0.1 MG/ML 10ML SYR IV PRN (07:46)
--- NOTE | 2023-08-27 07:51 | History & Physical Bridge Note ---
Date of Service August 27, 2023 History & Physical Bridge Note I have examined the patient, reviewed the History & Physical and in the interval since the performance of the History & Physical I have noted the following changes of clinical significance: no changes noted
[2023-08-27] MEDS ORDERED: MIDAZOLAM HCL 1 MG/ML 2ML VIAL ONE (07:52)
[2023-08-27] MEDS: GENTAMICIN SULFATE 40 MG/ML 2 ML VIAL ONE (08:28)
[2023-08-27] MEDS: BUPIVACAINE 0.5 % 5 MG/1 ML MPF 30ML VIAL ONE (08:28)
[2023-08-27] MEDS: VANCOMYCIN HCL 1000MG/20ML VIAL ONE (08:28)
[2023-08-27] MEDS: LIDOCAINE 1%/EPINEPHRINE 1:100,000 20 ML VIAL ONE (08:29)
--- NOTE | 2023-08-27 08:49 | Post Operative Brief Note ---
Immediate Post Op Note v1 Date of Surgery August 27, 2023 Pre & Post Diagnosis Operation Date: 08/27/23 07:30 <No data on this case meets the specified criteria> I identified the patient and participated in the time-out.: Yes Procedure Operation Date: 08/27/23 07:30 <No data on this case meets the specified criteria> Surgeon Celestino Stout, JAYLA, MS Umbrella Finisher none Estimated Blood Loss 5 Findings Consistent with Post-Op Diagnosis Consistent with preoperative findings. Specimens Right calcaneus - microbiology Right calcaneus - pathology Right calcaneus clear margin - pathology
--- NOTE | 2023-08-27 09:08 | Anesthesiology Progress Note ---
Date of Service August 27, 2023 Anesthesia Post Procedure Vital Signs Vital Signs: Temp Pulse Pulse Pulse Resp BP Pulse Ox 08/27/23 09:00 95 H 17 124/66 96 08/27/23 08:50 37.1 C 97 H 16 123/62 96 08/27/23 08:42 36.8 C 98 H 14 118/72 98 08/27/23 02:53 37.1 C 90 16 130/78 96 08/26/23 23:07 37.3 C 90 18 122/57 L 97 08/26/23 22:00 85 08/26/23 19:55 36.6 C 90 16 133/63 96 08/26/23 15:34 37.1 C 84 18 108/62 96 08/26/23 15:00 87 08/26/23 11:08 37.2 C 80 18 119/60 95 O2 Del Method 08/27/23 09:00 Room Air 08/27/23 08:50 Room Air 08/27/23 08:42 Room Air 08/27/23 02:53 Room Air 08/26/23 23:07 Room Air 08/26/23 22:00 08/26/23 19:55 Room Air 08/26/23 15:34 Room Air 08/26/23 15:00 08/26/23 11:08 Room Air Transfer of Care Handoff Completed per policy Notes Mental Status: alert / awake / arousable Patient Amnestic to Procedure: Yes Nausea / Vomiting: adequately controlled Pain: adequately controlled Airway Patency, RR, SpO2: stable & adequate BP & HR: stable & adequate Hydration State: stable & adequate Anesthetic Complications: no major complications apparent
--- NOTE | 2023-08-27 12:48 | Hospitalist Progress Note ---
Date of Service August 27, 2023 Assessment & Plan (1) Diabetic ulcer of right foot: (2) Cellulitis of right foot: (3) Osteomyelitis of ankle or foot, acute: Plan: Patient is 58-year-old male with PMH DM type I, CKD stage III, diabetic neuropathy, HTN, hypothyroidism, chronic hyperkalemia, chronic anemia, and other problems listed below who presents to the ED from [facility] for worsening foot wound. Denies fever, chills History 05/2023 polymicrobial right heel wound that was treated with ertapenem and amoxicillin. 06/2023-07/2023 diabetic ulcer of right foot, osteomyelitis s/p wound debridement and calcaneal ostectomy, with wound vac. Bone pathology sample + MRSA, GBS, VRE. ID had recommended daptomycin x 6 weeks. Leukocytosis present on admission MRI of foot shows worsening osteomyelitis of the calcaneal tuberosity ESR elevated to 90, CRP elevated to 19.1 Mg per DL on August 27, 2023 Status post I&D of right heel wound with partial excision calcaneus osteotomy on August 27, 2023 Blood cultureno growth till date Continue IV antibiotics with daptomycin. Awaiting IntraOp culture. Will need infectious disease recommendation to determine antibiotic duration. (4) Diarrhea: Plan: Diarrhea present upon arrival. Reported diarrhea x 2-3 days Is on antibiotics Does not report diarrhea at the moment. Continue to monitor (5) Diabetes mellitus type 1: Plan: On chronic insulin A1c: 6.8 on 07/20/2023 Continue basal bolus insulin (6) Acute kidney injury superimposed on CKD: Plan: Presented with creatinine of 2.75; baseline creatinine around 2.2 Improved with (7) Chronic hyperkalemia: Plan: K: Around 4.5-5 Continue Veltassa (8) Chronic anemia: Plan: Hgb: 11. Baseline appears~9 On Epogen weekly Continue folic acid, B12 (9) Hypothyroidism: Plan: Chronic Continue levothyroxine (10) Depression: Plan: Chronic, stable Continue fluoxetine, hydroxyzine (11) Dyslipidemia: Plan: Chronic Hold atorvastatin while on daptomycin (12) Chronic hyponatremia: Plan: Sodium around 1 31-1 34 Monitor BMP DVT Prophylaxis Heparin Full Code as per discussion with pt Dispositionpresents with right calcaneum osteomyelitis status post I&D and excision. Awaiting IntraOp culture to determine antibiotic route and duration. Time spent evaluating patient, direct bedside care, chart review, placing orders, interpretation of diagnostic studies, discussion with consultants, patient, and family members, as well as other required patient management activities is 50-minute Please note the above document was generated using voice recognition software. It may contain grammatical, syntax or spelling errors. Any formal questions or concerns about the content, text or information contained within the body of this dictation should be directly addressed to the provider for clarification Admission and Anticipated Discharge Date Admission Date: August 25, 2023 Subjective Patient seen and examined at bedside. He is sitting up; not in distress. He denies any pain or discomfort. No diarrhea, vomiting, fever or chills. Review of Systems Review of Systems: All systems reviewed & are unremarkable except as noted in Subjective Physical Exam Physical Exam: General: no distress, chronic ill appearing male Head: normocephalic, atraumatic Eyes: conjunctiva non-injected, anicteric ENT: normal inspection external ears, nose, mucous membranes moist Neck: supple, trachea midline Lungs: clear, no respiratory distress, no wheezing/rhonchi/rales CV: RRR, no murmur Abd: normal BS, soft, non-tender Ext: no cyanosis, no calf tenderness; right foot with dressing in place; soakage present. Neuro: A&O x 3, no focal deficits noted, normal affect Skin: warm, dry, RLE as above Results & Data Results & Data Vital Signs (Past 12 Hours) Vital Signs Temp Pulse Pulse Pulse Resp BP Pulse Ox 08/27/23 11:32 36.7 C 89 20 128/74 95 08/27/23 10:05 37 C 92 H 18 124/72 95 08/27/23 09:45 36.7 C 64 18 134/74 96 08/27/23 09:31 36.8 C 96 H 18 132/72 95 08/27/23 09:00 95 H 17 124/66 96 08/27/23 08:50 37.1 C 97 H 16 123/62 96 08/27/23 08:42 36.8 C 98 H 14 118/72 98 08/27/23 02:53 37.1 C 90 16 130/78 96 O2 Del Method 08/27/23 11:32 Room Air 08/27/23 10:05 Room Air 08/27/23 09:45 Room Air 02/04/24 09:31 Room Air 08/27/23 09:00 Room Air 08/27/23 08:50 Room Air 08/27/23 08:42 Room Air 08/27/23 02:53 Room Air (1) Diabetic ulcer of right foot Diabetes mellitus type: other specified (including BRITT) Diabetic foot ulcer location: heel Non-pressure ulcer stage: unspecified non-pressure ulcer stage Qualified Code(s): E13.621 - Other specified diabetes mellitus with foot ulcer; L97.419 - Non-pressure chronic ulcer of right heel and midfoot with unspecified severity
--- NOTE | 2023-08-27 13:41 | Operative Report ---
Post Operative Report Pre & Post Diagnosis Operation Date: 08/27/23 07:30 Pre-Op Diagnosis: FOOT INFECTION Post-Op Diagnosis: FOOT INFECTION I identified the patient and participated in the time-out.: Yes Procedure Operation Date: 08/27/23 07:30 Actual Procedures p Incision and Drainage Right Heel Wound, Partial Excision Calcaneous Osteotomy(Right) - Celestino Stout DPM, MS Surgeon Celestino Stout DPM, MS Anger Control Counselor none Estimated Blood Loss 5 Findings Consistent with Post-Op Diagnosis Consistent with pre operative findings Specimens 1. Right calcaneus bone - Microbiology 2. Right calcaneus bone - pathology 3. Right calcaneus bone clear margin - pathology Description of Procedure History of Present Illness: Patient is 58-year-old, type I diabetic male with chronic right heel wound and osteomyelitis of Right calcaneus. MRI on 08/25/23 positive for osteomyelitis. Patient is at severe risk for loss of life or limb. All questions answered. All potential risks, benefits, complications, alternatives, rehab, potential for incomplete relief of symptoms, need for further surgery, DVT, PE, , persistent pain, swelling, scarring, weakness, neurovascular, wound complications and potential for amputations were discussed with patient. Unwanted outcomes such as, but not limited to were reviewed including under correction, overcorrection, return of deformity, infection. All questions were answered. Patient has decided to proceed with procedure as indicated. Preoperative diagnosis: 1.) Right calcaneus osteomyelitis 2.) Right heel diabetic ulcer Postoperative diagnosis: Same Name of operation: 1.) Right heel wound debridement, excision of wound 2.) Partial excision, ostectomy of calcaneus Right 3.) Application of antibiotic beads right foot Surgeon: Dr. Stout Anger Control Counselor: None Anesthesia: Monitored anesthesia care Estimated blood loss: Minimal Procedure in detail: The patient was brought in the operating room under mild sedation and placed on the operating table in the prone position. A Pneumatic calf tourniquet was then placed about the patient's calf. The right lower limb was then prepped, scrubbed, and draped, in the usual aseptic manner. An Esmarch bandage utilized examining the patient's right ankle and the pneumatic calf tourniquet was inflated. Attention was directed to the posterior aspect of the patient's right lower extremity. The posterior heel wound measured 9 cm x 8 cm x 0.4 cm. Utilizing a sharp, sterile, 15 blade, nonviable tissue was excised sharply from the right retrocalcaneal heel to level of bone. Necrotic tissue tracked to posterior plantar medial. Significant malodor was appreciated. The plantar fascia was released and resected. At this time an oscillating bone saw was utilized to resect the posterior calcaneus. Once the ostectomy was completed the portion of the excised calcaneus was removed and place on the back table labeled with a portion sent to microbiology and the remainder sent in formalin to pathology. At this time an additional resection of bone was removed with the oscillating bone saw. This additional portion was placed on the back table and labeled right calcaneus clear margin, placed in formalin and sent to pathology. Next 1 Liter of lactate ringer was utilized to irrigate under low flow. A significant deficit was noted to the posterior heel. The new posterior heel wound measurements were approximately 12 cm x 8 cm x 4 cm. At this time 10cc of STIMULAN absorbable calcium sulfate beads mixed with Gentamicin and vancomycin were placed in the wound deficit. The wound was covered with 4x4 gauze, ABD, Kerlix, Dontae. Patient tolerated procedure and anesthesia well. The Patient was transferred to recovery room with vital signs stable and vascular status intact to the right foot. Following a period of postoperative monitoring the patient will be re admitted to the floor resuming all pre operative orders. I attest to the content of the Intraoperative Record and any orders documented therein. Any exceptions are noted below.
[2023-08-28 05:17] LABS: Basophils # (auto) 0.11 K/uL (0.00-0.20); Basophils % (auto) 0.6 %; Eosinophils # (auto) 0.09 K/uL (0.00-0.50); Eosinophils % (auto) 0.5 %; Hematocrit (blood only) 30.8 % (42.0-52.0); Immature Granulocytes # (auto) 0.13 K/uL (0.01-0.20); Immature Granulocytes % (auto) 0.7 %; Lymphocytes # (auto) 1.37 K/uL (1.20-3.40); Mean Corpuscular Hemoglobin 27.4 pg (25.0-34.0); Mean Corpuscular Hgb Conc 32.5 g/dL (32.0-36.0); Mean Corpuscular Volume 84.4 fL (80.0-100.0); Mean Platelet Volume 8.7 fL (9.4-12.4); Monocytes # (auto) 1.55 K/uL (0.11-0.59); Monocytes % (auto) 7.9 %; Neutrophils # (auto) 16.41 K/uL (1.40-6.50); Neutrophils % (auto) 83.3 %; Platelet Count 737 K/uL (130-400); RDW Coefficient of Variation 16.6 % (11.5-14.5); RDW Standard Deviation 51.1 fL (36.4-46.3); Red Blood Count 3.65 M/uL (4.70-6.10); White Blood Count 19.66 K/ul (4.8-10.8)
[2023-08-28 05:34] LABS: BUN Creatinine Ratio 13.7 (10-20); Creatinine Clr Calc Pharmacy 36.4 ml/min; Est GFR (African American) 35.5 ml/min; Est GFR (Non-African American) 30.6 ml/min; Potassium 4.4 mmol/L (3.5-5.1)
[2023-08-28] MEDS: HEPARIN SOD 5,000 UNIT/0.5 ML VIAL SQ SCH (08:34)
--- NOTE | 2023-08-28 15:47 | Hospitalist Progress Note ---
Date of Service August 28, 2023 Assessment & Plan (1) Diabetic ulcer of right foot: (2) Cellulitis of right foot: (3) Osteomyelitis of ankle or foot, acute: Plan: Patient is 58-year-old male with PMH DM type I, CKD stage III, diabetic neuropathy, HTN, hypothyroidism, chronic hyperkalemia, chronic anemia, and other problems listed below who presents to the ED from [facility] for worsening foot wound. Denies fever, chills History 05/2023 polymicrobial right heel wound that was treated with ertapenem and amoxicillin. 06/2023-07/2023 diabetic ulcer of right foot, osteomyelitis s/p wound debridement and calcaneal ostectomy, with wound vac. Bone pathology sample + MRSA, GBS, VRE. ID had recommended daptomycin x 6 weeks. Leukocytosis present on admission MRI of foot shows worsening osteomyelitis of the calcaneal tuberosity ESR elevated to 90, CRP elevated to 19.1 Mg per DL on August 27, 2023 Status post I&D of right heel wound with partial excision calcaneus osteotomy on August 27, 2023 Blood cultureno growth till date IntraOp Gram stain negative Cultures shows pinpoint growth Continue IV antibiotics with daptomycin. Appreciate infectious disease recommendation to determine choice of antibiotic and duration. (4) Diarrhea: Plan: Diarrhea present upon arrival. Reported diarrhea x 2-3 days Is on antibiotics Awaiting C. difficile (5) Diabetes mellitus type 1: Plan: On chronic insulin A1c: 6.8 on 07/20/2023 Continue basal bolus insulin (6) Acute kidney injury superimposed on CKD: Plan: Presented with creatinine of 2.75; baseline creatinine around 2.2 Improved with IV hydration (7) Chronic hyperkalemia: Plan: K: Around 4.5-5 Continue Veltassa (8) Chronic anemia: Plan: Hgb: 11. Baseline appears~9 On Epogen weekly Continue folic acid, B12 (9) Hypothyroidism: Plan: Chronic Continue levothyroxine (10) Depression: Plan: Chronic, stable Continue fluoxetine, hydroxyzine (11) Dyslipidemia: Plan: Chronic Hold atorvastatin while on daptomycin (12) Chronic hyponatremia: Plan: Sodium around 1 31-1 34 Monitor BMP DVT Prophylaxis Heparin Full Code as per discussion with pt Dispositionpresents with right calcaneum osteomyelitis status post I&D and excision. Awaiting IntraOp culture to determine antibiotic route and duration. Infectious disease consulted. Time spent evaluating patient, direct bedside care, chart review, placing orders, interpretation of diagnostic studies, discussion with consultants, patient, and family members, as well as other required patient management activities is 50-minute Please note the above document was generated using voice recognition software. It may contain grammatical, syntax or spelling errors. Any formal questions or concerns about the content, text or information contained within the body of this dictation should be directly addressed to the provider for clarification Admission and Anticipated Discharge Date Admission Date: August 25, 2023 Subjective Patient seen and examined at bedside. He is lying comfortably on the bed; not in distress. He reports ongoing intermittent diarrhea. Review of Systems Review of Systems: All systems reviewed & are unremarkable except as noted in Subjective Physical Exam Physical Exam: General: no distress, chronic ill appearing male Head: normocephalic, atraumatic Eyes: conjunctiva non-injected, anicteric ENT: normal inspection external ears, nose, mucous membranes moist Neck: supple, trachea midline Lungs: clear, no respiratory distress, no wheezing/rhonchi/rales CV: RRR, no murmur Abd: normal BS, soft, non-tender Ext: no cyanosis, no calf tenderness; right foot with dressing in place Neuro: A&O x 3, no focal deficits noted, normal affect Skin: warm, dry, RLE as above Results & Data Results & Data Vital Signs (Past 12 Hours) Vital Signs Temp Pulse Pulse Resp BP Pulse Ox O2 Del Method 08/28/23 15:27 36.6 C 82 16 154/81 H 99 Room Air 08/28/23 15:07 77 08/28/23 11:20 37.0 C 85 16 148/74 H 98 Room Air 08/28/23 07:39 37.1 C 88 18 156/82 H 96 Room Air 08/28/23 07:30 91 H (1) Diabetic ulcer of right foot Diabetes mellitus type: other specified (including BRITT) Diabetic foot ulcer location: heel Non-pressure ulcer stage: unspecified non-pressure ulcer stage Qualified Code(s): E13.621 - Other specified diabetes mellitus with foot ulcer; L97.419 - Non-pressure chronic ulcer of right heel and midfoot with unspecified severity
[2023-08-28 18:08] LABS: Adenovirus F 40/41 PCR Not Detected (NotDetected); Astrovirus PCR Not Detected (NotDetected); Campylobacter PCR Not Detected (NotDetected); Cryptosporidium PCR Not Detected (NotDetected); Cyclospora cayetanensis PCR Not Detected (NotDetected); Entamoeba histolytica PCR Not Detected (NotDetected); Enteroaggregative E.coli(EAEC) Not Detected (NotDetected); Enteropathogenic E.coli (EPEC) Not Detected (NotDetected); Enterotoxigenic E.coli (ETEC) Not Detected (NotDetected); Giardia lamblia PCR Not Detected (NotDetected); Norovirus GI/GII PCR Not Detected (NotDetected); Plesiomonas shigelloides PCR Not Detected (NotDetected); Rotavirus A PCR Not Detected (NotDetected); Salmonella PCR Not Detected (NotDetected); Sapovirus PCR Not Detected (NotDetected); Shiga-like Toxin E.coli (STEC) Not Detected (NotDetected); Shigella/Enteroinvasive E.coli Not Detected (NotDetected); Vibrio cholerae PCR Not Detected (NotDetected); Vibrio species PCR Not Detected (NotDetected); Yersinia enterocolitica PCR Not Detected (NotDetected)
--- NOTE | 2023-08-28 20:10 | Orthopedic Progress Note ---
Date of Service August 28, 2023 Assessment & Plan (1) Osteomyelitis of ankle or foot, acute: Plan: Patient seen and evaluated in room 254-1. Patient is status post day #1 right calcaneus resection (DOS: 08/27/23). Offloading is an important part of this Patient's management. Offloading Waffle boots ordered to bedside. Awaiting clear margins from bone resection. Awaiting cultures from bone. Reviewed previous vascular studies from 12/13 and 05/15. Due to extent of wound Patient will benefit from attempted delayed primary closure. Will wait until WBC trends down later in week. Thank you for allowing me to participate in the care of this Patient. Admission and Anticipated Discharge Date Admission Date: August 25, 2023 Subjective Patient seen at bedside in W254-1. Patient status post day #1 right calcaneus ostectomy (DOS:08/27/23). He is resting comfortably. He states no complaints. Physical Exam Constitutional: + frail appearing, cooperative and comfo rtable Eyes: normal visual case by confrontation Respiratory: normal respiratory effort Cardiovascular: Rate/Rhythm: regular rate and regular rhythm Vessels: posterior tibial pulses present and dorsalis pedis pulses present Musculoskeletal: Extremities: extremities normal to inspection Skin: + ulcer (right full thickness ) Psychiatric: Orientation: alert and oriented x 3 Results & Data Vital Signs (Past 12 Hours) Vital Signs Temp Pulse Pulse Resp BP Pulse Ox O2 Del Method 08/28/23 19:59 36.9 C 87 18 174/90 H 98 Room Air 08/28/23 15:27 36.6 C 82 16 154/81 H 99 Room Air 08/28/23 15:07 77 08/28/23 11:20 37.0 C 85 16 148/74 H 98 Room Air
[2023-08-29 04:19] LABS: Hematocrit (blood only) 32.6 % (42.0-52.0); Mean Corpuscular Hemoglobin 26.2 pg (25.0-34.0); Mean Corpuscular Hgb Conc 30.7 g/dL (32.0-36.0); Mean Corpuscular Volume 85.6 fL (80.0-100.0); Platelet Count 846 K/uL (130-400); RDW Coefficient of Variation 16.6 % (11.5-14.5); RDW Standard Deviation 51.8 fL (36.4-46.3); Red Blood Count 3.81 M/uL (4.70-6.10); White Blood Count 23.95 K/ul (4.8-10.8)
[2023-08-29 04:24] LABS: BUN Creatinine Ratio 12.4 (10-20); Calcium 8.4 mg/dl (8.6-10.3); Creatinine Clr Calc Pharmacy 37.1 ml/min; Est GFR (African American) 35.5 ml/min; Est GFR (Non-African American) 30.6 ml/min; Potassium 4.6 mmol/L (3.5-5.1)
[2023-08-29 04:45] LABS: Basophils # (auto) 0.14 K/uL (0.00-0.20); Basophils % (auto) 0.6 %; Echinocytes 1+; Eosinophils # (auto) 0.06 K/uL (0.00-0.50); Eosinophils % (auto) 0.3 %; Immature Granulocytes # (auto) 0.21 K/uL (0.01-0.20); Immature Granulocytes % (auto) 0.9 %; Lymphocytes # (auto) 1.11 K/uL (1.20-3.40); Lymphocytes % (auto) 4.6 %; Monocytes # (auto) 1.74 K/uL (0.11-0.59); Monocytes % (auto) 7.3 %; Neutrophils # (auto) 20.69 K/uL (1.40-6.50); Neutrophils % (auto) 86.3 %; Polychromasia 1+
[2023-08-29] MEDS: INSULIN ASPART PER UNIT CHARGE SC SCH (09:04)
--- NOTE | 2023-08-29 12:20 | Infectious Disease Consult ---
Date of Service August 29, 2023 Telehealth Information I performed this visit using a real-time telehealth connection between my location and the patients location ([facility]). After connecting through interactive tele-video, patient was identified by name and date of and/or wristband check.Patient (or authorized healthcare b2b sales representative) was informed that this was a telemedicine visit and it was being conducted confidentially over secure lines. My office door was closed and no one else was present in the room with me.Patient (or authorized healthcare b2b sales representative) provided consent to proceed with the visit, expressed an understanding of privacy and security of the telemedicine visit, and gave permission to have a hospital b2b sales representative in the room in order to assist with the visit and to conduct portions of the visit, as needed. I informed the patient (or authorized healthcare b2b sales representative) that I reviewed their record and presented the opportunity for them to ask any questions regarding the visit today. The patient agreed to participate. Assessment & Plan (1) Osteomyelitis of ankle or foot, acute: Plan: Chronic problem since at least May. Multiple debridements now with no resolution despite prolonged IV antibiotics. Cultures now showing new GNR and resistance a concern. Calcaneal osteomyelitis has a very low cure rate and given his history over the past 2-3 months, the likelihood that we will cure this infection is low. I suspect his osteomyelitis will progress and he will ultimately require a BKA. Plan For now, please start pip-tazo 4.5 g IV q 12. If pharmacy would prefer a different dosing schedule, that should be OK. Final abx plans remain pending for now while his wound cultures are pending. I would continue the daptomycin in the meantime. I anticipate he will need a PICC line and a 6 week course of IV therapy but I have very little optimism that his infection will resolve. He will almost certainly go on to require BKA. ID will continue to follow along wt you. History of Present Illness History of Present Illness Mr. Fitch is a 58yo male prisoner. He was admitted to [facility] on 08/25/23 due to worsening of a right calcaneal he has had since at least May of last year. At that time he was treated with ertapenem followed by amoxicillin. Further debridement of the wound in June showed MRSA, VRE and GBS. For that he was placed on daptomycin x 6 weeks. He states that he got those infusions and to lerated them well, but the wound did not resolve. Recently it worsened again with increasing drainage and erythema. He had no pain, but has severe neuropathy. He denies any fevers prior to admission. Upon evaluation here, imaging suggested progressive osteomyelitis of the calcaneous and he was placed back on daptomycin. He went back to the OR on 08/27/23 and had another local debridement of the calcaneous. Cultures so far are showing multiple GNR. Today he feels well and denies any complaints. No fevers. No N/V, diarrhea or rash. Allergies Allergy/AdvReac Type Severity Reaction Status Date / Time sodium chloride AdvReac Unknown CONTRAINDIC Verified 07/19/23 15:29 [From Green Nasal] ATED. Home Medications Medication Instructions Recorded Confirmed Type alendronate 70 mg tablet 70 mg PO WK 03/05/22 08/25/23 History aspirin 81 mg tablet,delayed 81 mg PO QAM 03/05/22 08/25/23 History release ergocalciferol (vitamin D2) 50 mcg 50 mcg PO WK 03/05/22 08/25/23 History (2,000 unit) capsule fluoxetine 20 mg capsule 40 mg PO QAM 03/05/22 08/25/23 History hydroxyzine pamoate 50 mg capsule 50 mg PO HS 03/05/22 08/25/23 History insulin regular human 100 unit/mL 2 unit subcut BID 03/05/22 08/25/23 History injection solution (Novolin R Regular U-100 Insulin) levothyroxine 150 mcg tablet 150 mcg PO DAILYBB 03/05/22 08/25/23 History metoclopramide HCl 10 mg tablet 10 mg PO ACHS 03/05/22 08/25/23 History ondansetron 8 mg disintegrating 8 mg PO .EVERY 8 HOURS 03/05/22 08/25/23 History tablet pantoprazole 40 mg tablet,delayed 40 mg PO BID 03/05/22 08/25/23 History release patiromer calcium sorbitex 25.2 25.2 g PO QPM 03/05/22 08/25/23 History gram oral powder packet (Veltassa) tamsulosin 0.4 mg capsule 0.4 mg PO HS 03/05/22 08/25/23 History vitamin B complex with C-folic 1 tab PO DAILY 03/05/22 08/25/23 History acid 0.8 mg-zinc citrate 50 mg tablet (Dialyvite 800 with Zinc 50) folic acid 1 mg tablet 1 mg PO QAM #30 tabs 03/06/22 08/25/23 Rx epoetin sanchez 10,000 unit/mL 10,000 unit subcut WK 11/21/22 08/25/23 History injection solution (Epogen) ascorbic acid (vitamin C) 500 mg 500 mg PO QAM 12/14/22 08/25/23 History tablet (Vitamin C) atorvastatin 40 mg tablet 40 mg PO HS 12/14/22 08/25/23 History insulin regular human 100 unit/mL 1 sliding scale dose subcut 12/14/22 08/25/23 History injection solution (Novolin R USEASDIRECTD PRN Hyperglycemia Regular U-100 Insulin) sodium bicarbonate 650 mg tablet 650 mg PO BID 12/14/22 08/25/23 History insulin glargine 100 unit/mL 14 unit subcut DAILY 05/19/23 08/25/23 History subcutaneous solution acetaminophen 500 mg tablet 1,000 mg PO TID 07/19/23 08/25/23 History (Tylenol Extra Strength) loperamide 2 mg capsule (Imodium 4 mg PO BID PRN LOOSE STOOLS 07/19/23 08/25/23 History A-D) Daptomycin 750mg/Ns 750 mg IV DAILY 08/25/23 08/25/23 History Lactobacillus acidoph-L.bulgaricus 1 tab PO TIDM 08/25/23 08/25/23 History 1 million cell tablet (Floranex) cyanocobalamin (vitamin B-12) 100 100 mcg PO DAILY 08/25/23 08/25/23 History mcg tablet (Vitamin B-12) dextrose 40 % oral gel (Glutose-15) 1 ea PO DAILY PRN Hypoglycemia 08/25/23 08/25/23 History glucagon 1 mg solution for 0 mg subcut UD PRN low blood sugar 08/25/23 08/25/23 History injection (Glucagon Emergency Kit) Patient History Medical History HTN (hypertension) Osteomyelitis of ankle CKD (chronic kidney disease), stage III Diabetic ulcer of left ankle Diabetic neuropathy Chronic nausea Chronic hyperkalemia Chronic anemia Chronic hyponatremia CKD (chronic kidney disease) Psoriasis Orthostatic hypotension on chronic fludrocortisone Proteinuria NSTEMI (non-ST elevated myocardial infarction) Diabetes mellitus type 1 Non-STEMI (non-ST elevated myocardial infarction) Hypothyroidism Surgical History Status post right foot surgery Family History Other Heart disease Social History Smoking Status: Never smoker Tobacco Type: Cigarettes Second Hand Exposure: No; Hx Alcohol Use: No Hx Substance Use: No Preferred Language: Persian Communication Ability: Effective Visual Impairment: No Limitations Liquor Tester Required: No Beliefs That Will Affect Care: None Current Living Situation: Other Current Living Situation Comment: jail Other Information That Helps Us Care for You: No Feels Safe at Home: Yes Safety Concerns: Feels Safe At This Time Assistive Devices: Wheelchair Review of Systems Gen- No weakness, fevers, or other complaints HEENT- No CABRERA, sore throat Lungs- No SOB or cough CV- No chest pain or LE edema GI- No N/V or diarrhea - no dysuria, currently has mukherjee cath in place MSK- No pain, but has right heel wound as per HPI SKin- No rash Neuro- LE neuropathy as per HPI Physical Exam Gen- NAD, cooperative with exam HEENT- NC AT, neck ROM intact Lungs- Normal respiratory rate on room air - Mukherjee cath in place MSK-- Surgical bandage in place on right foot Ext- No edema or visible cellulitis Skin- No rash Neuro- alert and oriented Results & Data Vital Signs (Past 12 Hours) Vital Signs Temp Pulse Pulse Resp BP Pulse Ox O2 Del Method 08/29/23 10:19 37.2 C 87 16 146/81 H 96 Room Air 08/29/23 09:25 87 08/29/23 07:28 37.2 C 89 16 167/86 H 96 Room Air 08/29/23 03:41 37 C 93 H 16 147/84 H 98 Room Air 08/29/23 00:33 37.1 C 82 16 146/77 H 98 Room Air Laboratory Results WBC 16 ->23 Hgb 10 Platelets 846 ESR 90 Na 137 Creatinine 2.26 BUN 28 Diagnostic Findings C diff and GI pathogen panel negative Blood cultures 08/25/23 negative Foot wound cultures: three different GNR, ID pending MRI of foot reviewed: worsening calcaneal osteomyelitis
--- NOTE | 2023-08-29 16:28 | Hospitalist Progress Note ---
Date of Service August 29, 2023 Assessment & Plan (1) Diabetic ulcer of right foot: (2) Cellulitis of right foot: (3) Osteomyelitis of ankle or foot, acute: Plan: Patient is 58-year-old male with PMH DM type I, CKD stage III, diabetic neuropathy, HTN, hypothyroidism, chronic hyperkalemia, chronic anemia, and other problems listed below who presents to the ED from [facility] for worsening foot wound. Denies fever, chills History 05/2023 polymicrobial right heel wound that was treated with ertapenem and amoxicillin. 06/2023-07/2023 diabetic ulcer of right foot, osteomyelitis s/p wound debridement and calcaneal ostectomy, with wound vac. Bone pathology sample + MRSA, GBS, VRE. ID had recommended daptomycin x 6 weeks. Leukocytosis present on admission MRI of foot shows worsening osteomyelitis of the calcaneal tuberosity ESR elevated to 90, CRP elevated to 19.1 Mg per DL on August 27, 2023 Status post I&D of right heel wound with partial excision calcaneus osteotomy on August 27, 2023 Blood cultureno growth till date IntraOp Gram stain negative Cultures growing gram-negative bacilli. Discussed with infectious disease; they recommend changing the antibiotic from daptomycin to Zosyn. Will need to follow-up final culture and sensitivity and reach out to infectious disease again to determine route and duration of medication. (4) Diarrhea: Plan: Diarrhea present upon arrival. Reported diarrhea x 2-3 days Is on antibiotics C. difficile negative Imodium as needed (5) Diabetes mellitus type 1: Plan: On chronic insulin A1c: 6.8 on 07/20/2023 Continue basal bolus insulin (6) Acute kidney injury superimposed on CKD: Plan: Presented with creatinine of 2.75; baseline creatinine around 2.2 Improved with IV hydration (7) Chronic hyperkalemia: Plan: K: Around 4.5-5 Continue Veltassa (8) Chronic anemia: Plan: Hgb: 11. Baseline appears~9 On Epogen weekly Continue folic acid, B12 (9) Hypothyroidism: Plan: Chronic Continue levothyroxine (10) Depression: Plan: Chronic, stable Continue fluoxetine, hydroxyzine (11) Dyslipidemia: Plan: Chronic Hold atorvastatin while on daptomycin (12) Chronic hyponatremia: Plan: Sodium around 1 31-1 34 Monitor BMP DVT Prophylaxis Heparin Full Code as per discussion with pt Dispositionpresents with right calcaneum osteomyelitis status post I&D and excision. Awaiting IntraOp culture and sensitivity to determine antibiotic route and duration. Time spent evaluating patient, direct bedside care, chart review, placing orders, interpretation of diagnostic studies, discussion with consultants, patient, and family members, as well as other required patient management activities is 50-minute Please note the above document was generated using voice recognition software. It may contain grammatical, syntax or spelling errors. Any formal questions or concerns about the content, text or information contained within the body of this dictation should be directly addressed to the provider for clarification Admission and Anticipated Discharge Date Admission Date: August 25, 2023 Subjective Patient seen and examined at bedside. He is comfortable lying in the bed; not in distress. He denies any pain or discomfort. Review of Systems Review of Systems: All systems reviewed & are unremarkable except as noted in Subjective Physical Exam Physical Exam: General: no distress, chronic ill appearing male Head: normocephalic, atraumatic Eyes: conjunctiva non-injected, anicteric ENT: normal inspection external ears, nose, mucous membranes moist Neck: supple, trachea midline Lungs: clear, no respiratory distress, no wheezing/rhonchi/rales CV: RRR, no murmur Abd: normal BS, soft, non-tender Ext: no cyanosis, no calf tenderness; right foot with dressing in place Neuro: A&O x 3, no focal deficits noted, normal affect Skin: warm, dry, RLE as above Results & Data Results & Data Vital Signs (Past 12 Hours) Vital Signs Temp Pulse Pulse Resp BP Pulse Ox O2 Del Method 08/29/23 15:40 77 08/29/23 14:50 36.7 C 82 16 124/72 98 Room Air 08/29/23 10:19 37.2 C 87 16 146/81 H 96 Room Air 08/29/23 09:25 87 08/29/23 07:28 37.2 C 89 16 167/86 H 96 Room Air (1) Diabetic ulcer of right foot Diabetes mellitus type: other specified (including BRITT) Diabetic foot ulcer location: heel Non-pressure ulcer stage: unspecified non-pressure ulcer stage Qualified Code(s): E13.621 - Other specified diabetes mellitus with foot ulcer; L97.419 - Non-pressure chronic ulcer of right heel and midfoot with unspecified severity
[2023-08-29] MEDS: PIPER/TAZO 4.5g in D5W MINI-B 100 ML IV ONE (18:04)
[2023-08-29] MEDS: PIPERACILLIN/TAZOBACTAM 4.5 GM in DEXTROSE 5% MINI-B 100 ML IV SCH (21:24)
--- NOTE | 2023-08-29 21:27 | Orthopedic Progress Note ---
Date of Service August 29, 2023 Assessment & Plan (1) Osteomyelitis of ankle or foot, acute: Plan: Patient seen and evaluated in room 254-1. Patient is status post day #2 right calcaneus resection (DOS: 08/27/23). Reviewed ID note. Appreciate recommendations. Reviewed BKA with Patient. Awaiting cultures from bone. Concern for WBC trending up. Possible delayed closure Monday. Thank you for allowing me to participate in the care of this Patient. Admission and Anticipated Discharge Date Admission Date: August 25, 2023 Subjective Patient seen and examined at bedside in w254-1. Patient is status post day #2 right calcaneus resection (DOS: 08/27/23) Physical Exam Constitutional: + frail appearing, cooperative and comfo rtable Eyes: normal visual case by confrontation Respiratory: normal respiratory effort Cardiovascular: Rate/Rhythm: regular rate and regular rhythm Vessels: posterior tibial pulses present and dorsalis pedis pulses present Musculoskeletal: Extremities: extremities normal to inspection Skin: + ulcer (right full thickness ) and + er ythema (Right heel wound) Psychiatric: Orientation: alert and oriented x 3 Results & Data Vital Signs (Past 12 Hours) Vital Signs Temp Pulse Pulse Resp BP Pulse Ox O2 Del Method 08/29/23 20:09 36.7 C 80 20 134/73 98 Room Air 08/29/23 15:40 77 08/29/23 14:50 36.7 C 82 16 124/72 98 Room Air 08/29/23 10:19 37.2 C 87 16 146/81 H 96 Room Air 08/29/23 09:25 87
[2023-08-29] MEDS: LOPERAMIDE HCL 2 MG CAP PO PRN (21:32)
[2023-08-30 06:25] LABS: Basophils # (auto) 0.12 K/uL (0.00-0.20); Basophils % (auto) 0.8 %; Eosinophils # (auto) 0.25 K/uL (0.00-0.50); Eosinophils % (auto) 1.6 %; Hematocrit (blood only) 32.9 % (42.0-52.0); Hemoglobin 10.3 g/dl (14.0-18.0); Immature Granulocytes # (auto) 0.14 K/uL (0.01-0.20); Immature Granulocytes % (auto) 0.9 %; Lymphocytes % (auto) 10.5 %; Mean Corpuscular Hemoglobin 26.7 pg (25.0-34.0); Mean Corpuscular Hgb Conc 31.3 g/dL (32.0-36.0); Mean Corpuscular Volume 85.2 fL (80.0-100.0); Mean Platelet Volume 8.7 fL (9.4-12.4); Monocytes # (auto) 1.14 K/uL (0.11-0.59); Monocytes % (auto) 7.5 %; Neutrophils # (auto) 11.93 K/uL (1.40-6.50); Neutrophils % (auto) 78.7 %; Platelet Count 830 K/uL (130-400); RDW Coefficient of Variation 16.8 % (11.5-14.5); RDW Standard Deviation 52.2 fL (36.4-46.3); Red Blood Count 3.86 M/uL (4.70-6.10); White Blood Count 15.18 K/ul (4.8-10.8)
[2023-08-30 06:45] LABS: BUN Creatinine Ratio 13.7 (10-20); Calcium 8.4 mg/dl (8.6-10.3); Creatinine Clr Calc Pharmacy 31.9 ml/min; Est GFR (African American) 31.5 ml/min; Est GFR (Non-African American) 27.2 ml/min; Potassium 4.9 mmol/L (3.5-5.1)
[2023-08-30] MEDS: ERTAPENEM SODIUM 1,000 MG in SYRINGE 0 ML IV SCH (09:45)
[2023-08-30] MEDS: LACTATED RINGER'S 1,000 ML IV SCH (09:46)
--- NOTE | 2023-08-30 20:00 | Orthopedic Progress Note ---
Date of Service August 30, 2023 Assessment & Plan (1) Osteomyelitis of ankle or foot, acute: Plan: Patient seen and evaluated in room 254-1. Patient is status post day #3 right calcaneus resection (DOS: 08/27/23). Reviewed BKA with Patient. Patient would like to attempt limb salvage. Declines BKA. Cultures from bone show poly microbial growth. Pathology shows source control not obtained with failure of clear margins. WBC trending down. Further resection of calcaneus for attempted clear margins with some delayed closure planned. Awaiting OR availability. Thank you for allowing me to participate in the care of this Patient. Admission and Anticipated Discharge Date Admission Date: August 25, 2023 Subjective Patient seen and examined at bedside in w254-1. Patient has no complaints. Patient is status post day #3 right calcaneus resection (DOS: 08/27/23) Physical Exam Constitutional: + frail appearing, cooperative and comfo rtable Eyes: normal visual case by confrontation Respiratory: normal respiratory effort Cardiovascular: Rate/Rhythm: regular rate and regular rhythm Vessels: posterior tibial pulses present and dorsalis pedis pulses present Musculoskeletal: Extremities: extremities normal to inspection Skin: + ulcer (right full thickness ) and + er ythema (Right heel wound) Psychiatric: Orientation: alert and oriented x 3 Results & Data Vital Signs (Past 12 Hours) Vital Signs Temp Pulse Pulse Resp BP Pulse Ox O2 Del Method 08/30/23 15:37 36.6 C 83 17 154/81 H 98 Room Air 08/30/23 15:19 89 Diagnostic Findings [address] [place] [address] Castro Allen M.D. 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 Phys.: Celestino Stout, JAYLA, MS Case #: [id number] Collected: 08/27/23 Received: 08/28/23 Copies To Celestino Stout DPM, Mirtha Flood MD FINAL DIAGNOSIS A. Bone, right calcaneus, partial excision: - Acute osteomyelitis B. Bone, right calcaneus clear margins, partial excision: - Viable bone with fibrosis and chronic osteomyelitis - Soft tissue with arterial narrowing and calcifications at 1305. Clinical History Right calcaneus osteomyelitis. Right heel diabetic ulcer. Procedure performed: Right heel wound debridement, excision of wound. Partial excision, ostectomy of right calcaneus. Gross Description A. RIGHT CALCANEUS The specimen is received in a container labeled right calcaneus with the patient name. The specimen consists of a rounded fragment of bone with associated soft tissue. The specimen, overall, measures 5.3 x 4.8 x 2 cm. The cortical surface of the bone shows a slight concavity which measures 3.5 cm in diameter. The base of this consists of a dull grayish soft tissue. Additional dull hoyt to grayish soft tissue is attached to the fragment, peripherally. Sectioning through the fragment reveals dull hoyt to grayish cancellous bone, much of which is markedly softened. Cell Stripper sections are submitted in two cassettes with A1 representing bone for decalcification and A2, soft tissue. B. RIGHT CALCANEUS CLEAR MARGINS The specimen is received in a container labeled right calcaneus clear margins with the patient name. The specimen consists of two irregular fragments of bone and attached soft tissue which measure 4 x 2.8 x 1.3 cm and 3.5 x 1.8 x 1 cm. Sectioning through both fragments reveals marked softening and areas of faint grayish discoloration. Within both fragments this focally appears to involve a near to definite full-thickness of the fragment. Cell Stripper sections are submitted in three cassettes with B1 representing full-thickness sections of the slightly smaller fragment; B2, full-thickness sections of the slightly larger fragment (B1 and B2 for decalcification) and B3, sections of soft tissue from both fragments. Surgical Pathology Report Page 1 of 2 [facility] Surgical Pathology Report Name: MARIELA ROSE [id number] : 1965 Case #: [id number] Continued Current Procedural Terminology A. [id number], [id number] B. [id number], [id number] [place] [address] / Director: Castro Allen M.D. Clinical Laboratory Report Name: MARIELA ROSE [id number] Acct: [id number] Status: ADM [place] : 1965 [facility] Date: 08/25/23 Age: 58 Sex: M Dis Date: Loc: [address]/Bed: W254-1 Spec: [id number] Collected: 08/27/23 Received: 08/27/[address]: Celestino Stout, DPM, MS Copy To: Mirtha Bowen MD Source: Foot,Right OV Order: Ordered: Aer/Amna Cult/Sm Comments: Comment 1) Right Calcaneous Bone Procedure Result Verified Site Gram Stain Final 08/27/23 Gram Stain Result No WBCs Seen No Organisms Seen Aero/Amna Cult Preliminary 08/30/23-1408 Organism 1 Klebsiella pneumoniae Quantity Moderate Sens Sensitivities to Follow Organism 2 Escherichia coli ESBL Quantity Moderate Sens Sensitivities to Follow Organism 3 Proteus mirabilis Quantity Moderate Sens Sensitivities to Follow Organism 4 Bacteroides vulgatus Quantity Moderate Sens No Sensitivities to Follow Kleb pneum ESBL E col P mirabili RX M.I.C. RX M.I.C. RX M.I.C. --- --------- --- --------- --- --------- Amox/Clav S <=8/4 I 16/8 S <=8/4 Ampicillin R >16 S <=8 Amp/Sul S <=8/4 R >16/8 S <=8/4 Cefazolin S <=2 R >16 S <=2 Cefepime S <=2 R >16 S <=2 Cefotaxime R >16 Ceftriaxone S <=1 R >2 S <=1 Ciprofloxacin S <=0.25 R >2 S <=0.25 Ertapenem S <=0.5 S <=0.5 S <=0.5 Gentamicin S <=4 S <=4 S <=4 Levofloxacin S <=0.5 R >4 S <=0.5 Meropenem S <=1 S <=1 S <=1 Tobramycin S <=4 S <=4 S <=4 Trimeth/Sulfa S <=2/38 R >2/38 S <=2/38 Pip/Tazo S <=16 I 64 S <=16 S = SENSITIVE I = INTERMEDIATE R = RESISTANT Name: MARIELA ROSE [id number] : 1965 PAGE 1 Printed: 08/30/23 2044 END OF REPORT
--- NOTE | 2023-08-30 22:29 | Hospitalist Progress Note ---
Date of Service August 30, 2023 Assessment & Plan (1) Osteomyelitis of ankle or foot, acute: (2) Acute kidney injury superimposed on CKD: (3) Diarrhea: (4) CRF (chronic renal failure): (5) Cellulitis of right foot: (6) Anemia: (7) HTN (hypertension): Plan Patient is a 58yoM with PMHx significant for DM type I, CKD stage III, diabetic neuropathy, HTN, hypothyroidism, chronic hyperkalemia, chronic anemia who presents to the ED from [facility] for worsening foot wound. Denies fever, chills. History: 05/2023 polymicrobial right heel wound that was treated with ertapenem and amoxicillin. 06/2023-07/2023 diabetic ulcer of right foot, osteomyelitis s/p wound debridement and calcaneal ostectomy, with wound vac. Bone pathology sample + MRSA, GBS, VRE. ID had recommended daptomycin x 6 weeks. Leukocytosis present on admission MRI of foot shows worsening osteomyelitis of the calcaneal tuberosity ESR elevated to 90, CRP elevated to 19.1 Mg per DL on August 27, 2023 R calcaneus Osteomyelitis Status post I&D of right heel wound with partial excision calcaneus osteotomy on August 27, 2023 Culture, right foot 08/27- grew K pneumoniae, ESBL E coli, Proteus and Bacteroides, all sensitive to Ertapenem. Blood [id number] growth to date IntraOp Gram stain negative ID consulted- appreciate recs -recommended switching from Daptomycin to Zosyn before cultures were finalized. -Zosyn switched to Invanz on 08/30, continue -ID recommending amputation, stating likely infection would not be able to be cured with antibiotics only. Appreciate further recs from ID for duration of treatment Appreciate podiatry recs- amputation vs. further debridement Diarrhea Diarrhea present upon arrival. Reported diarrhea x 2-3 days Is on antibiotics C. difficile negative Imodium as needed Diabetes mellitus type 1 On chronic insulin A1c: 6.8 on 07/20/2023 Continue basal bolus insulin Acute kidney injury superimposed on CKD Presented with creatinine of 2.75; baseline creatinine around 2.2 Improved with IV hydration hydrate as needed Chronic hyperkalemia K: Around 4.5-5 Continue Veltassa Chronic anemia Hgb: 11. Baseline appears~9 On Epogen weekly Continue folic acid, B12 Hypothyroidism Chronic Continue levothyroxine Depression Chronic, stable Continue fluoxetine, hydroxyzine Dyslipidemia Chronic Held atorvastatin while on daptomycin Resumed on Invanz Chronic hyponatremia Sodium around 131-134 Currently wnl Monitor BMP DVT Prophylaxis: Heparin SQ CODE STATUS: Full Code as per discussion with pt Diet: DMI Dispo: From [facility], to return once treatment complete Admission and Anticipated Discharge Date Admission Date: August 25, 2023 Subjective Pt was seen with guards present. Had just had a BM. States that he had questions about why an amputation is possibly needed. Otherwise denied further concerns. Review of Systems Review of Systems: All systems reviewed & are unremarkable except as noted in Subjective Physical Exam Physical Exam: General: Alert, oriented. No acute distress Psych: Appropriate mood and affect Neuro: No gross deficits HEENT: NC/AT CV: RRR Resp: Breath sounds clear bilaterally, no increased effort of breathing. Abdomen: Soft, nontender, nondistended. Extremities: No edema in lower extremities bilaterally. right foot bandaged. Results & Data Results & Data Vital Signs (Past 12 Hours) Vital Signs Temp Pulse Pulse Resp BP Pulse Ox O2 Del Method 08/30/23 07:50 36.9 C 83 17 158/85 H 98 Room Air 08/30/23 07:20 86 08/30/23 04:42 36.8 C 87 20 169/91 H 98 Room Air (4) CRF (chronic renal failure) Chronic kidney disease stage: unspecified stage Qualified Code(s): N18.9 - Chronic kidney disease, unspecified (6) Anemia Anemia type: unspecified type Qualified Code(s): D64.9 - Anemia, unspecified
[2023-08-31 06:52] LABS: Albumin Globulin Ratio 0.7 (0.9-2); Albumin Level 2.5 gm/dl (3.4-5.0); BUN Creatinine Ratio 13.9 (10-20); Bilirubin,Total 0.2 mg/dl (0.2-1.0); Calcium 8.2 mg/dl (8.6-10.3); Creatinine Clr Calc Pharmacy 39.2 ml/min; Est GFR (African American) 40.6 ml/min; Est GFR (Non-African American) 35.1 ml/min; Globulin 3.4 gm/dl (2.5-4.0); Magnesium 1.5 mg/dl (1.7-2.4); Phosphorus 3.3 mg/dl (2.5-4.9); Potassium 4.8 mmol/L (3.5-5.1); Total Protein 5.9 gm/dl (6.0-8.3)
[2023-08-31 06:54] LABS: Basophils # (auto) 0.15 K/uL (0.00-0.20); Basophils % (auto) 1.2 %; Eosinophils # (auto) 0.36 K/uL (0.00-0.50); Eosinophils % (auto) 2.8 %; Hematocrit (blood only) 32.4 % (42.0-52.0); Hemoglobin 10.1 g/dl (14.0-18.0); Immature Granulocytes # (auto) 0.16 K/uL (0.01-0.20); Immature Granulocytes % (auto) 1.3 %; Lymphocytes # (auto) 1.74 K/uL (1.20-3.40); Lymphocytes % (auto) 13.7 %; Mean Corpuscular Hemoglobin 26.7 pg (25.0-34.0); Mean Corpuscular Hgb Conc 31.2 g/dL (32.0-36.0); Mean Corpuscular Volume 85.7 fL (80.0-100.0); Mean Platelet Volume 8.9 fL (9.4-12.4); Monocytes # (auto) 0.98 K/uL (0.11-0.59); Monocytes % (auto) 7.7 %; Neutrophils # (auto) 9.34 K/uL (1.40-6.50); Neutrophils % (auto) 73.3 %; Platelet Count 824 K/uL (130-400); RDW Coefficient of Variation 17.1 % (11.5-14.5); RDW Standard Deviation 53.4 fL (36.4-46.3); Red Blood Count 3.78 M/uL (4.70-6.10); White Blood Count 12.73 K/ul (4.8-10.8)
[2023-08-31] MEDS: CHOLECALCIFEROL 25 MCG (1000 UNITS) TAB PO SCH (08:18)
[2023-08-31] MEDS: MAGNESIUM SULFATE / D5W 1 GM/100 ML BAG IV SCH (10:52)
--- NOTE | 2023-09-01 04:38 | Hospitalist Progress Note ---
Date of Service August 31, 2023 Assessment & Plan (1) Osteomyelitis of ankle or foot, acute: (2) Acute kidney injury superimposed on CKD: (3) Diarrhea: (4) CRF (chronic renal failure): (5) Cellulitis of right foot: (6) Anemia: (7) HTN (hypertension): Plan Patient is a 58yoM with PMHx significant for DM type I, CKD stage III, diabetic neuropathy, HTN, hypothyroidism, chronic hyperkalemia, chronic anemia who presents to the ED from [facility] for worsening foot wound. Denies fever, chills. History: 05/2023 polymicrobial right heel wound that was treated with ertapenem and amoxicillin. 06/2023-07/2023 diabetic ulcer of right foot, osteomyelitis s/p wound debridement and calcaneal ostectomy, with wound vac. Bone pathology sample + MRSA, GBS, VRE. ID had recommended daptomycin x 6 weeks. Leukocytosis present on admission MRI of foot shows worsening osteomyelitis of the calcaneal tuberosity ESR elevated to 90, CRP elevated to 19.1 Mg per DL on August 27, 2023 R calcaneus Osteomyelitis Status post I&D of right heel wound with partial excision calcaneus osteotomy on August 27, 2023 Culture, right foot 08/27- grew K pneumoniae, ESBL E coli, Proteus and Bacteroides, all sensitive to Ertapenem. Blood [id number] growth to date IntraOp Gram stain negative ID consulted- appreciate recs -recommended switching from Daptomycin to Zosyn before cultures were finalized. -Zosyn switched to Invanz on 08/30, continue -ID recommending amputation, stating likely infection would not be able to be cured with antibiotics only. Appreciate further recs from ID for duration of treatment Appreciate podiatry recs- amputation vs. further debridement Diarrhea Diarrhea present upon arrival. Reported diarrhea x 2-3 days Is on antibiotics C. difficile negative Imodium as needed Diabetes mellitus type 1 On chronic insulin A1c: 6.8 on 07/20/2023 Continue basal bolus insulin Acute kidney injury superimposed on CKD Presented with creatinine of 2.75; baseline creatinine around 2.2 Improved with IV hydration hydrate as needed Chronic hyperkalemia K: Around 4.5-5 Continue Veltassa Chronic anemia Hgb: 11. Baseline appears~9 On Epogen weekly Continue folic acid, B12 Hypothyroidism Chronic Continue levothyroxine Depression Chronic, stable Continue fluoxetine, hydroxyzine Dyslipidemia Chronic Held atorvastatin while on daptomycin Resumed on Invanz Chronic hyponatremia Sodium around 131-134 Currently wnl Monitor BMP DVT Prophylaxis: Heparin SQ CODE STATUS: Full Code as per discussion with pt Diet: DMI Dispo: From [facility], to return once treatment complete Admission and Anticipated Discharge Date Admission Date: August 25, 2023 Subjective Pt was seen with guards present. Sheet over head originally. Denied acute concerns. Review of Systems Review of Systems: All systems reviewed & are unremarkable except as noted in Subjective Physical Exam Physical Exam: General: Alert, oriented. No acute distress Psych: Appropriate mood and affect Neuro: No gross deficits HEENT: NC/AT CV: RRR Resp: Breath sounds clear bilaterally, no increased effort of breathing. Abdomen: Soft, nontender, nondistended. Extremities: No edema in lower extremities bilaterally. right foot bandaged. Results & Data Results & Data Vital Signs (Past 12 Hours) Vital Signs Temp Pulse Pulse Resp BP Pulse Ox O2 Del Method 08/31/23 14:48 71 08/31/23 08:08 80 08/31/23 07:56 36.9 C 80 17 165/88 H 97 Room Air 08/31/23 03:10 36.7 C 82 20 169/91 H 99 Room Air (4) CRF (chronic renal failure) Chronic kidney disease stage: unspecified stage Qualified Code(s): N18.9 - Chronic kidney disease, unspecified (6) Anemia Anemia type: unspecified type Qualified Code(s): D64.9 - Anemia, unspecified
[2023-09-01 05:34] LABS: Basophils # (auto) 0.15 K/uL (0.00-0.20); Basophils % (auto) 1.1 %; Eosinophils # (auto) 0.49 K/uL (0.00-0.50); Eosinophils % (auto) 3.7 %; Hematocrit (blood only) 31.4 % (42.0-52.0); Hemoglobin 10.2 g/dl (14.0-18.0); Immature Granulocytes # (auto) 0.22 K/uL (0.01-0.20); Immature Granulocytes % (auto) 1.7 %; Lymphocytes # (auto) 1.97 K/uL (1.20-3.40); Lymphocytes % (auto) 14.9 %; Mean Corpuscular Hemoglobin 26.9 pg (25.0-34.0); Mean Corpuscular Hgb Conc 32.5 g/dL (32.0-36.0); Mean Corpuscular Volume 82.8 fL (80.0-100.0); Mean Platelet Volume 8.6 fL (9.4-12.4); Monocytes # (auto) 0.97 K/uL (0.11-0.59); Monocytes % (auto) 7.4 %; Neutrophils # (auto) 9.38 K/uL (1.40-6.50); Neutrophils % (auto) 71.2 %; Platelet Count 806 K/uL (130-400); RDW Standard Deviation 50.6 fL (36.4-46.3); Red Blood Count 3.79 M/uL (4.70-6.10); White Blood Count 13.18 K/ul (4.8-10.8)
[2023-09-01 05:41] LABS: Albumin Globulin Ratio 0.6 (0.9-2); Albumin Level 2.4 gm/dl (3.4-5.0); BUN Creatinine Ratio 13.3 (10-20); Bilirubin,Total 0.2 mg/dl (0.2-1.0); Calcium 8.3 mg/dl (8.6-10.3); Creatinine Clr Calc Pharmacy 37.7 ml/min; Est GFR (African American) 38.8 ml/min; Est GFR (Non-African American) 33.4 ml/min; Globulin 3.8 gm/dl (2.5-4.0); Magnesium 1.8 mg/dl (1.7-2.4); Phosphorus 3.5 mg/dl (2.5-4.9); Total Protein 6.2 gm/dl (6.0-8.3)
--- NOTE | 2023-09-01 07:54 | Orthopedic Progress Note ---
Date of Service September 01, 2023 Assessment & Plan (1) Osteomyelitis of ankle or foot, acute: Plan: Patient seen and evaluated in room 254-1. Patient is status post day #5 right calcaneus resection (DOS: 08/27/23). Reviewed BKA with Patient. Patient would like to attempt limb salvage. Declines BKA. Pathology shows source control not obtained with failure of clear margins. Planned procedure 7;30am, 09/06/23 further resection of calcaneus for attempted clear margins with some delayed closure. Thank you for allowing me to participate in the care of this Patient. Admission and Anticipated Discharge Date Admission Date: August 25, 2023 Subjective Patient seen at bedside. He has no new complaints. Physical Exam Constitutional: + frail appearing, cooperative and comfo rtable Eyes: normal visual case by confrontation Respiratory: normal respiratory effort Cardiovascular: Rate/Rhythm: regular rate and regular rhythm Vessels: posterior tibial pulses present and dorsalis pedis pulses present Musculoskeletal: Extremities: extremities normal to inspection Skin: + ulcer (right full thickness ) and + er ythema (Right heel wound) Psychiatric: Orientation: alert and oriented x 3 Results & Data Vital Signs (Past 12 Hours) Vital Signs Temp Pulse Pulse Resp BP Pulse Ox O2 Del Method 09/01/23 07:12 76 09/01/23 03:30 36.5 C 81 20 168/84 H 97 Room Air 08/31/23 23:46 36.6 C 80 20 168/95 H 99 Room Air 08/31/23 23:00 69
--- NOTE | 2023-09-01 17:45 | Hospitalist Progress Note ---
Date of Service September 01, 2023 Assessment & Plan (1) Osteomyelitis of ankle or foot, acute: (2) Acute kidney injury superimposed on CKD: (3) Diarrhea: (4) CRF (chronic renal failure): (5) Cellulitis of right foot: (6) Anemia: (7) HTN (hypertension): Plan Patient is a 58yoM with PMHx significant for DM type I, CKD stage III, diabetic neuropathy, HTN, hypothyroidism, chronic hyperkalemia, chronic anemia who presents to the ED from [facility] for worsening foot wound. Denies fever, chills. History: 05/2023 polymicrobial right heel wound that was treated with ertapenem and amoxicillin. 06/2023-07/2023 diabetic ulcer of right foot, osteomyelitis s/p wound debridement and calcaneal ostectomy, with wound vac. Bone pathology sample + MRSA, GBS, VRE. ID had recommended daptomycin x 6 weeks. Leukocytosis present on admission MRI of foot shows worsening osteomyelitis of the calcaneal tuberosity ESR elevated to 90, CRP elevated to 19.1 Mg per DL on August 27, 2023 R calcaneus Osteomyelitis Status post I&D of right heel wound with partial excision calcaneus osteotomy on August 27, 2023 Culture, right foot 08/27- grew K pneumoniae, ESBL E coli, Proteus and Bacteroides, all sensitive to Ertapenem. Blood [id number] growth to date IntraOp Gram stain negative ID consulted- appreciate recs -recommended switching from Daptomycin to Zosyn before cultures were finalized. -Zosyn switched to Invanz on 08/30, continue -ID recommending amputation, stating likely infection would not be able to be cured with antibiotics only. Appreciate further recs from ID for duration of treatment in setting of no amputation Appreciate podiatry recs- amputation vs. further debridement -pt to undergo further resection of calcaneus for attempted clear margins with some delayed closure on 09/02/23 Diarrhea Diarrhea present upon arrival. Reported diarrhea x 2-3 days Is on antibiotics C. difficile negative Imodium as needed Diabetes mellitus type 1 On chronic insulin A1c: 6.8 on 07/20/2023 Continue basal bolus insulin Acute kidney injury superimposed on CKD Presented with creatinine of 2.75; baseline creatinine around 2.2 Improved with IV hydration hydrate as needed Chronic hyperkalemia K: Around 4.5-5 Continue Veltassa- pt has been refusing doses Continue to monitor potassium level Chronic anemia Hgb: 11. Baseline appears~9 On Epogen weekly Continue folic acid, B12 Hypothyroidism Chronic Continue levothyroxine Depression Chronic, stable Continue fluoxetine, hydroxyzine Dyslipidemia Chronic Held atorvastatin while on daptomycin Resumed on Invanz Chronic hyponatremia Sodium around 131-134 Currently wnl Monitor BMP DVT Prophylaxis: Heparin SQ CODE STATUS: Full Code as per discussion with pt Diet: DMI Dispo: From [facility], to return once treatment complete Admission and Anticipated Discharge Date Admission Date: August 25, 2023 Subjective Pt was seen with guards present. Sheet over head originally. Denied acute concerns. States that he is still thinking of having an amputation. Review of Systems Review of Systems: All systems reviewed & are unremarkable except as noted in Subjective Physical Exam Physical Exam: General: Alert, oriented. No acute distress Psych: Appropriate mood and affect Neuro: No gross deficits HEENT: NC/AT CV: RRR Resp: Breath sounds clear bilaterally, no increased effort of breathing. Abdomen: Soft, nontender, nondistended. Extremities: No edema in lower extremities bilaterally. right foot bandaged. Results & Data Results & Data Vital Signs (Past 12 Hours) Vital Signs Temp Pulse Pulse Resp BP Pulse Ox O2 Del Method 09/01/23 14:37 73 09/01/23 11:18 36.6 C 76 18 150/88 H 99 Room Air 09/01/23 08:50 36.4 C L 79 18 135/69 95 Room Air 09/01/23 08:05 36.9 C 80 18 161/88 H 98 Room Air 09/01/23 07:12 76 (4) CRF (chronic renal failure) Chronic kidney disease stage: unspecified stage Qualified Code(s): N18.9 - Chronic kidney disease, unspecified (6) Anemia Anemia type: unspecified type Qualified Code(s): D64.9 - Anemia, unspecified
[2023-09-01] MEDS: ATORVASTATIN 40 MG TAB PO SCH (21:21)
[2023-09-02] MEDS: PATIROMER CALCIUM SORBITEX 8.4 GM PACK PO SCH (01:27)
[2023-09-02 05:52] LABS: Basophils # (auto) 0.12 K/uL (0.00-0.20); Basophils % (auto) 0.9 %; Eosinophils # (auto) 0.33 K/uL (0.00-0.50); Eosinophils % (auto) 2.6 %; Hematocrit (blood only) 32.7 % (42.0-52.0); Hemoglobin 10.4 g/dl (14.0-18.0); Immature Granulocytes # (auto) 0.26 K/uL (0.01-0.20); Lymphocytes % (auto) 14.9 %; Mean Corpuscular Hemoglobin 26.8 pg (25.0-34.0); Mean Corpuscular Hgb Conc 31.8 g/dL (32.0-36.0); Mean Corpuscular Volume 84.3 fL (80.0-100.0); Mean Platelet Volume 8.8 fL (9.4-12.4); Monocytes # (auto) 0.93 K/uL (0.11-0.59); Monocytes % (auto) 7.3 %; Neutrophils # (auto) 9.19 K/uL (1.40-6.50); Neutrophils % (auto) 72.3 %; Platelet Count 768 K/uL (130-400); RDW Coefficient of Variation 17.3 % (11.5-14.5); RDW Standard Deviation 52.2 fL (36.4-46.3); Red Blood Count 3.88 M/uL (4.70-6.10); White Blood Count 12.73 K/ul (4.8-10.8)
[2023-09-02 06:04] LABS: Albumin Globulin Ratio 0.7 (0.9-2); Albumin Level 2.6 gm/dl (3.4-5.0); BUN Creatinine Ratio 15.3 (10-20); Bilirubin,Total 0.2 mg/dl (0.2-1.0); Calcium 8.1 mg/dl (8.6-10.3); Creatinine Clr Calc Pharmacy 40.4 ml/min; Est GFR (African American) 40.4 ml/min; Est GFR (Non-African American) 34.8 ml/min; Globulin 3.6 gm/dl (2.5-4.0); Magnesium 1.5 mg/dl (1.7-2.4); Phosphorus 3.6 mg/dl (2.5-4.9); Potassium 5.2 mmol/L (3.5-5.1); Total Protein 6.2 gm/dl (6.0-8.3)
[2023-09-02] MEDS ORDERED: MIDAZOLAM HCL 1 MG/ML 2ML VIAL ONE ×2 (07:03→08:03)
[2023-09-02] MEDS ORDERED: ATROPINE SULFATE 0.1 MG/ML 10ML SYR IV PRN (07:33)
[2023-09-02] MEDS ORDERED: fentaNYL citrate PF 100 MCG/2 ML VIAL IV PRN (07:33)
[2023-09-02] MEDS ORDERED: ePHEDrine sulfate 50 MG/ML AMP IV PRN (07:33)
--- NOTE | 2023-09-02 07:33 | Anesthesiology Consultation ---
Date of Service September 02, 2023 Assessment & Plan Chart Review Chart Review: Acceptable Risk for Surgery Consults Requested none ASA ASA3 Proposed Anesthesia Anesthesia Type: MAC History Surgery Operation Date: 08/26/23 10:30 Proposed Procedures p right partial excision calcaneous osteotomy(Right) - Celestino Stout DPM, Operation Date: 08/27/23 07:30 Proposed Procedures p Incision and Drainage Extremity(Right) - Celestino Stout DPM, Operation Date: 09/02/23 07:30 Proposed Procedures p Right Foot Partial Calcaneus Resection, Delayed Primary Closure - Celestino Stout DPM, MS Height/Weight Height: 6 ft Weight: 72.2 kg Allergies Allergy/AdvReac Type Severity Reaction Status Date / Time sodium chloride AdvReac Unknown CONTRAINDIC Verified 07/19/23 15:29 [From [place] Nasal] ATED. Medications Home Medications Medication Instructions Recorded Confirmed Last Taken alendronate 70 mg tablet 70 mg PO WK 03/05/22 08/25/23 07/18/23 aspirin 81 mg tablet,delayed 81 mg PO QAM 03/05/22 08/25/23 08/25/23 release ergocalciferol (vitamin D2) 50 mcg 50 mcg PO WK 03/05/22 08/25/23 08/24/23 (2,000 unit) capsule fluoxetine 20 mg capsule 40 mg PO QAM 03/05/22 08/25/23 08/25/23 hydroxyzine pamoate 50 mg capsule 50 mg PO HS 03/05/22 08/25/23 08/24/23 insulin regular human 100 unit/mL 2 unit subcut BID 03/05/22 08/25/23 08/25/23 injection solution (Novolin R Regular U-100 Insulin) levothyroxine 150 mcg tablet 150 mcg PO DAILYBB 03/05/22 08/25/23 08/25/23 metoclopramide HCl 10 mg tablet 10 mg PO ACHS 03/05/22 08/25/23 08/25/23 ondansetron 8 mg disintegrating 8 mg PO .EVERY 8 HOURS 03/05/22 08/25/23 08/25/23 tablet pantoprazole 40 mg tablet,delayed 40 mg PO BID 03/05/22 08/25/23 08/25/23 release patiromer calcium sorbitex 25.2 25.2 g PO QPM 03/05/22 08/25/23 07/18/23 gram oral powder packet (Veltassa) tamsulosin 0.4 mg capsule 0.4 mg PO HS 03/05/22 08/25/23 08/24/23 vitamin B complex with C-folic 1 tab PO DAILY 03/05/22 08/25/23 08/25/23 acid 0.8 mg-zinc citrate 50 mg tablet (Dialyvite 800 with Zinc 50) folic acid 1 mg tablet 1 mg PO QAM #30 tabs 03/06/22 08/25/23 08/25/23 epoetin sanchez 10,000 unit/mL 10,000 unit subcut WK 11/21/22 08/25/23 08/25/23 injection solution (Epogen) ascorbic acid (vitamin C) 500 mg 500 mg PO QAM 12/14/22 08/25/23 08/25/23 tablet (Vitamin C) atorvastatin 40 mg tablet 40 mg PO HS 12/14/22 08/25/23 08/24/23 insulin regular human 100 unit/mL 1 sliding scale dose subcut 12/14/22 08/25/23 05/19/23 injection solution (Novolin R USEASDIRECTD PRN Hyperglycemia Regular U-100 Insulin) sodium bicarbonate 650 mg tablet 650 mg PO BID 12/14/22 08/25/23 08/25/23 insulin glargine 100 unit/mL 14 unit subcut DAILY 05/19/23 08/25/23 08/25/23 subcutaneous solution acetaminophen 500 mg tablet 1,000 mg PO TID 07/19/23 08/25/23 08/25/23 (Tylenol Extra Strength) loperamide 2 mg capsule (Imodium 4 mg PO BID PRN LOOSE STOOLS 07/19/23 08/25/23 07/18/23 10:53 A-D) Daptomycin 750mg/Ns 750 mg IV DAILY 08/25/23 08/25/23 08/24/23 Lactobacillus acidoph-L.bulgaricus 1 tab PO TIDM 08/25/23 08/25/23 Unknown 1 million cell tablet (Floranex) cyanocobalamin (vitamin B-12) 100 100 mcg PO DAILY 08/25/23 08/25/23 08/25/23 mcg tablet (Vitamin B-12) dextrose 40 % oral gel (Glutose-15) 1 ea PO DAILY PRN Hypoglycemia 08/25/23 08/25/23 08/04/23 glucagon 1 mg solution for 0 mg subcut UD PRN low blood sugar 08/25/23 08/25/23 08/13/23 injection (Glucagon Emergency Kit) Active Medications Generic Name Dose Route Start Last Admin Trade Name Freq PRN Reason Stop Dose Admin Acetaminophen 1,000 mg 08/25/23 22:00 09/01/23 21:19 Acetaminophen 500 Mg Tab PO 09/24/23 21:59 1,000 mg TID MARY Administration Ascorbic Acid 500 mg 08/26/23 09:00 09/01/23 08:02 Ascorbic Acid 500 Mg Tab PO 09/25/23 08:59 500 mg QAM MARY Administration Atorvastatin Calcium 40 mg 09/01/23 21:00 09/01/23 21:21 Atorvastatin 40 Mg Tab PO 10/01/23 20:59 40 mg HS MARY Administration Cyanocobalamin 100 mcg 08/26/23 09:00 09/01/23 08:02 Cyanocobalamin (B-12) 100 Mcg Tablet PO 09/25/23 08:59 100 mcg DAILY MARY Administration Dextrose 25 - 50 ml 08/25/23 21:36 08/27/23 02:05 Dextrose 50% 50 Ml Syringe IV 09/24/23 21:35 50 ml UD PRN Administration Hypoglycemia Protocol Protocol Fluoxetine HCl 40 mg 08/26/23 09:00 09/01/23 08:03 Fluoxetine Hcl 20 Mg Cap PO 09/25/23 08:59 40 mg QAM MARY Administration Folic Acid 1 mg 08/26/23 09:00 09/01/23 08:03 Folic Acid 1 Mg Tab PO 09/25/23 08:59 1 mg QAM MARY Administration Heparin Sodium (Porcine) 5,000 units 08/28/23 09:00 09/02/23 06:44 Heparin Sod 5,000 Unit/0.5 Ml Vial SQ 09/27/23 08:59 5,000 units Q8 MARY Administration Hydroxyzine HCl 50 mg 08/25/23 22:00 09/01/23 21:21 Hydroxyzine Hcl 25 Mg Tab PO 09/24/23 21:59 50 mg HS MARY Administration Ertapenem 1,000 mg/ Syringe 10 mls @ 2 mls/min 08/30/23 09:00 09/01/23 08:01 IV 10/11/23 08:59 2 mls/min Q24H MARY Administration Protocol Insulin Aspart 0 units 08/29/23 07:30 09/01/23 20:39 Insulin Aspart Per Unit Charge SC 09/28/23 07:29 Not Given ACHS MARY Insulin Glargine 0 - 7 units 08/26/23 21:00 09/01/23 21:22 Lantus Per Unit Charge SQ 09/25/23 20:59 4 units BID MARY Administration Levothyroxine Sodium 150 mcg 08/26/23 06:30 09/02/23 06:44 Levothyroxine Sodium 150 Mcg Tablet PO 09/25/23 06:29 150 mcg DAILYBB MARY Administration Loperamide HCl 2 mg 08/29/23 07:57 08/30/23 13:15 Loperamide Hcl 2 Mg Cap PO 09/28/23 07:56 2 mg Q6H PRN Administration Diarrhea Metoclopramide HCl 10 mg 08/25/23 22:00 09/01/23 21:22 Metoclopramide Hcl 10 Mg Tablet PO 09/24/23 21:59 10 mg ACHS MARY Administration Miscellaneous 15 - 30 gm 08/25/23 21:36 08/25/23 22:25 Carbohydrates For Hypoglycemia PO 09/24/23 21:35 15 gm UD PRN Administration Hypoglycemia Protocol Pantoprazole Sodium 40 mg 08/25/23 22:00 09/01/23 21:20 Pantoprazole 40 Mg Tab PO 09/24/23 21:59 40 mg BID MARY Administration Patiromer 25.2 gm 09/02/23 00:00 09/02/23 01:27 Patiromer Calcium Sorbitex 8.4 Gm Pack PO 10/02/23 00:00 Not Given 0000 MARY Sodium Bicarbonate 650 mg 08/25/23 22:00 09/01/23 21:20 Sodium Bicarbonate 650 Mg Tab PO 09/24/23 21:59 650 mg BID MARY Administration Tamsulosin HCl 0.4 mg 08/25/23 22:00 09/01/23 21:20 Tamsulosin Hcl 0.4 Mg Cap PO 09/24/23 21:59 0.4 mg HS MARY Administration Vitamin B Complex/Folic Acid 1 cap 08/26/23 09:00 09/01/23 08:02 Nephrocaps PO 09/25/23 08:59 1 cap DAILY MARY Administration Vitamin D 50 mcg 08/31/23 09:00 08/31/23 08:18 Cholecalciferol 25 Mcg (1000 Units) Tab PO 09/30/23 08:59 50 mcg Th@0900 MARY Administration NPO Date Last Intake of Fluids: 08/26/23 Time Last Intake of Fluids: 22:00 Date Last Intake of Solids: 08/26/23 Time Last Intake of Solids: 18:00 Past Medical History Medical History HTN (hypertension) Osteomyelitis of ankle CKD (chronic kidney disease), stage III Diabetic ulcer of left ankle Diabetic neuropathy Chronic nausea Chronic hyperkalemia Chronic anemia Chronic hyponatremia CKD (chronic kidney disease) Psoriasis Orthostatic hypotension on chronic fludrocortisone Proteinuria NSTEMI (non-ST elevated myocardial infarction) Diabetes mellitus type 1 Non-STEMI (non-ST elevated myocardial infarction) Hypothyroidism Past Family History Family History Other Heart disease Past Surgical History Surgical History Status post right foot surgery Social History Smoking Status: Never smoker tobacco type: cigarettes Hx Alcohol Use: No Hx Substance Use: No substance use type: does not use Physical Exam Vital Signs Last Vital Signs Temp 36.9 C 09/02/23 03:47 Pulse 77 09/02/23 03:47 Resp 18 09/02/23 03:47 BP 148/81 H 09/02/23 03:47 Pulse Ox 95 09/02/23 03:47 O2 Del Method Room Air 09/02/23 03:47 Constitutional + frail appearing, cooperative and comfortable; no acute distress and not cachectic Eyes normal visual case by confrontation ENMT Mouth: + dentition abnormality, + dental caries, + edentulous, + poor dentition and + loose teeth Thyromental Distance: > or= 3.5 Finger Breadths Mallampati Class: II Neck normal visual inspection, trachea midline and + facial hair; neck extension not limited Respiratory normal respiratory effort; no respiratory distress Auscultation: + diminished lung sounds Cardiovascular Rate/Rhythm: regular rate and regular rhythm Heart Sounds: no murmur Vessels: posterior tibial pulses present and dorsalis pedis pulses present; no carotid bruit Musculoskeletal Spine: normal cervical ROM and no pain with cervical ROM Extremities: extremities normal to inspection; full ROM of extremities Skin + ulcer (right full thickness ) and + erythema (Right heel wound) Neurologic moves all extremities Motor/Sensory: + sensory deficit Psychiatric Orientation: alert and oriented x 3 Testing Laboratory Results 09/02/23 05:06 09/02/23 05:06 Urine Color Dark Yellow 08/25/23 23:00 Urine Appearance Clear (Clear) 08/25/23 23:00 Urine pH 5.5 (4.5-7.5) 08/25/23 23:00 Ur Specific [place] 1.019 (1.000-1.030) 08/25/23 23:00 Urine Protein 2+ (Negative) H 08/25/23 23:00 Urine Glucose (UA) Negative (Negative) 08/25/23 23:00 Urine Ketones Trace (Negative) H 08/25/23 23:00 Urine Nitrite Negative (Negative) 08/25/23 23:00 Ur Leukocyte Esterase Negative (Negative) 08/25/23 23:00 Urine WBC (Auto) 1-5 /hpf (0-5) 08/25/23 23:00 Urine RBC (Auto) 0-4 /hpf (0-4) 08/25/23 23:00 U Hyaline Cast (Auto) 0 /lpf (0-5) 08/25/23 23:00 U Epithel Cells (Auto) 0-5 /lpf (0-5) 08/25/23 23:00 Urine Bacteria (Auto) Negative (Negative) 08/25/23 23:00 08/27/23 08:23 Gram Stain - Final Foot,Right Aerobic and Anaerobic Culture - Final Klebsiella pneumoniae Escherichia coli ESBL Proteus mirabilis Bacteroides vulgatus Prevotella bivia 08/25/23 16:20 Aerobic Blood Culture - Final Blood No growth in Aerobic bottle after 5 days. Anaerobic Blood Culture - Final No growth in Anaerobic bottle after 5 days. 08/25/23 15:56 Aerobic Blood Culture - Final Blood No growth in Aerobic bottle after 5 days. Anaerobic Blood Culture - Final No growth in Anaerobic bottle after 5 days. 09/01/23 20:31 POC Glucose 128 H Electrocardiogram Date: 08/25/23 Findings: + NSR @ (@ 97;Lateral infarct,age ?;ST & T wave abnl) Chest X-Ray Date: 07/27/23 Findings: + NAD and + other (PICC line ends in SVC) Echocardiogram Date: 06/30/20 EF: 55% LV Function: normal RWMA: + none Other Findings: + LVH (mild) and + diastolic dysfunction (Grade 2) Valvular Disease: + no significant valvular disease
--- NOTE | 2023-09-02 07:49 | History & Physical Bridge Note ---
Date of Service September 02, 2023 History & Physical Bridge Note I have examined the patient, reviewed the History & Physical and in the interval since the performance of the History & Physical I have noted the following changes of clinical significance: no changes noted
[2023-09-02] MEDS ORDERED: PROPOFOL IV EMULSION 10 MG/ML 20 ML VIAL IV ONE (08:21)
[2023-09-02] MEDS: LIDOCAINE 1%/EPINEPHRINE 1:100,000 20 ML VIAL ONE (08:43)
--- NOTE | 2023-09-02 08:58 | Post Operative Brief Note ---
Immediate Post Op Note v1 Date of Surgery September 02, 2023 Pre & Post Diagnosis Operation Date: 09/02/23 07:30 Pre-Op Diagnosis: Osteomyelitis of right foot Post-Op Diagnosis: Osteomyelitis of right foot I identified the patient and participated in the time-out.: Yes Procedure Operation Date: 09/02/23 07:30 Actual Procedures p Right Foot Partial Calcectomy, Delayed Primary Closure(Right) - Celestino Stout DPM, MS Surgeon Celestino Stout DPM, MS Contact Lens Blocker none Estimated Blood Loss 5 Findings Consistent with Post-Op Diagnosis Specimens Right calcaneus - microbiology Right calcaneus - pathology Right calcaneus clear margin - pathology
--- NOTE | 2023-09-02 09:08 | Anesthesiology Progress Note ---
Date of Service September 02, 2023 Anesthesia Post Procedure Vital Signs Vital Signs: Temp Pulse Pulse Resp BP Pulse Ox O2 Del Method 09/02/23 03:47 36.9 C 77 18 148/81 H 95 Room Air 09/02/23 01:56 72 09/01/23 23:13 37.0 C 77 18 148/82 H 96 Room Air 09/01/23 19:30 36.7 C 74 18 157/85 H 97 Room Air 09/01/23 14:37 73 09/01/23 11:18 36.6 C 76 18 150/88 H 99 Room Air Transfer of Care Handoff Completed per policy Notes Mental Status: alert / awake / arousable Patient Amnestic to Procedure: Yes Nausea / Vomiting: adequately controlled Pain: adequately controlled Airway Patency, RR, SpO2: stable & adequate BP & HR: stable & adequate Hydration State: stable & adequate Anesthetic Complications: no major complications apparent and Pt Satisfied with anesthetic care
--- NOTE | 2023-09-02 09:11 | Hospitalist Progress Note ---
Date of Service September 02, 2023 Assessment & Plan (1) Osteomyelitis of ankle or foot, acute: (2) Acute kidney injury superimposed on CKD: (3) Diarrhea: (4) CRF (chronic renal failure): (5) Cellulitis of right foot: (6) Anemia: (7) HTN (hypertension): Plan Patient is a 58yoM with PMHx significant for DM type I, CKD stage III, diabetic neuropathy, HTN, hypothyroidism, chronic hyperkalemia, chronic anemia who presents to the ED from [facility] for worsening foot wound. Denies fever, chills. History: 05/2023 polymicrobial right heel wound that was treated with ertapenem and amoxicillin. 06/2023-07/2023 diabetic ulcer of right foot, osteomyelitis s/p wound debridement and calcaneal ostectomy, with wound vac. Bone pathology sample + MRSA, GBS, VRE. ID had recommended daptomycin x 6 weeks. Leukocytosis present on admission MRI of foot shows worsening osteomyelitis of the calcaneal tuberosity ESR elevated to 90, CRP elevated to 19.1 Mg per DL on August 27, 2023 R calcaneus Osteomyelitis Status post I&D of right heel wound with partial excision calcaneus osteotomy on August 27, 2023 Culture, right foot 08/27- grew K pneumoniae, ESBL E coli, Proteus and Bacteroides, all sensitive to Ertapenem. Blood [id number] growth to date IntraOp Gram stain negative ID consulted- appreciate recs -recommended switching from Daptomycin to Zosyn before cultures were finalized. -Zosyn switched to Invanz on 08/30, continue -ID recommending amputation, stating likely infection would not be able to be cured with antibiotics only. Per podiatry, pt refusing amputation, would like to salvage limb. -Awaiting further recs from ID for duration of treatment in setting of no amputation, post-procedure (Right Foot Partial Calcectomy, Delayed Primary Closure) on 09/02 Appreciate podiatry recs- amputation vs. further debridement -s/p further resection of calcaneus for attempted clear margins with some delayed closure on 09/02/23 Chronic hyperkalemia K: Around 4.5-5 on admission, wnl Treated with daily Veltassa Pt has been refusing doses, stating that it "makes me sick" K+ elevated at 5.3 on 09/02, pt still declining Veltassa Low potassium diet ordered Continue to monitor Diarrhea Diarrhea present upon arrival. Reported diarrhea x 2-3 days Is on antibiotics C. difficile negative Imodium as needed Diabetes mellitus type 1 On chronic insulin A1c: 6.8 on 07/20/2023 Continue basal bolus insulin Acute kidney injury superimposed on CKD Presented with creatinine of 2.75; baseline creatinine around 2.2 Improved with IV hydration hydrate as needed Chronic anemia Hgb: 11. Baseline appears~9 On Epogen weekly Continue folic acid, B12 Hypothyroidism Chronic Continue levothyroxine Depression Chronic, stable Continue fluoxetine, hydroxyzine Dyslipidemia Chronic Held atorvastatin while on daptomycin Resumed on Invanz Chronic hyponatremia Sodium around 131-134 Currently wnl Monitor BMP DVT Prophylaxis: Heparin SQ CODE STATUS: Full Code as per discussion with pt Diet: DMI Dispo: From [facility], to return once treatment complete Admission and Anticipated Discharge Date Admission Date: August 25, 2023 Subjective Pt was seen post-procedure. States that he feels "good". Asking about discharge. Notes that he has not been taking the Veltassa as it makes him "sick" Review of Systems Review of Systems: All systems reviewed & are unremarkable except as noted in Subjective Physical Exam Physical Exam: General: Alert, oriented. No acute distress Psych: Appropriate mood and affect Neuro: No gross deficits HEENT: NC/AT CV: RRR Resp: Breath sounds clear bilaterally, no increased effort of breathing. Abdomen: Soft, nontender, nondistended. Extremities: No edema in lower extremities bilaterally. right foot bandaged. Results & Data Results & Data Vital Signs (Past 12 Hours) Vital Signs Temp Pulse Pulse Resp BP Pulse Ox O2 Del Method 09/02/23 03:47 36.9 C 77 18 148/81 H 95 Room Air 09/02/23 01:56 72 09/01/23 23:13 37.0 C 77 18 148/82 H 96 Room Air (4) CRF (chronic renal failure) Chronic kidney disease stage: unspecified stage Qualified Code(s): N18.9 - Chronic kidney disease, unspecified (6) Anemia Anemia type: unspecified type Qualified Code(s): D64.9 - Anemia, unspecified
[2023-09-02] MEDS: MAGNESIUM OXIDE 400 MG TAB PO SCH (13:15)
[2023-09-02] MEDS: MAGNESIUM SULFATE / D5W 1 GM/100 ML BAG IV SCH (13:55)
--- NOTE | 2023-09-02 22:28 | Operative Report ---
Post Operative Report Pre & Post Diagnosis Operation Date: 09/02/23 07:30 Pre-Op Diagnosis: Osteomyelitis of right foot Post-Op Diagnosis: Osteomyelitis of right foot I identified the patient and participated in the time-out.: Yes Procedure Operation Date: 09/02/23 07:30 Actual Procedures p Right Foot Partial Calcectomy, Delayed Primary Closure(Right) - Celestino Stout DPM, MS Surgeon Celestino Stout DPM, MS General Practice none Estimated Blood Loss 5 Findings Consistent with Post-Op Diagnosis consistent with pre operative diagnosis Specimens Right calcaneus - pathology Description of Procedure History of Present Illness: Patient is 58-year-old, type I diabetic male with chronic right heel wound and osteomyelitis of Right calcaneus. Prior resection completed on 08/27/23 failed to show clear margins by pathology. Patient presents today for further resection and delayed secondary closure of wound. Patient is at severe risk for loss of life or limb. All questions answered. All potential risks, benefits, complications, alternatives, rehab, potential for incomplete relief of symptoms, need for further surgery, DVT, PE, , persistent pain, swelling, scarring, weakness, neurovascular, wound complications and potential for amputations were discussed with patient. Unwanted outcomes such as, but not limited to were reviewed including under correction, overcorrection, return of deformity, infection. All questions were answered. Patient has decided to proceed with procedure as indicated. Preoperative diagnosis: 1.) Right calcaneus osteomyelitis 2.) Right heel diabetic ulcer Postoperative diagnosis: Same Name of operation: 1.) Partial excision, ostectomy of calcaneus Right 2.) Delayed secondary closure of wound with skin plasty advancement Surgeon: Dr. Stout General Practice: None Anesthesia: Monitored anesthesia care Estimated blood loss: Minimal Procedure in detail: The patient was brought in the operating room under mild sedation and placed on the operating table in the prone position. A Pneumatic calf tourniquet was then placed about the patient's calf. The right lower limb was then prepped, scrubbed, and draped, in the usual aseptic manner. An Esmarch bandage utilized examining the patient's right ankle and the pneumatic calf tourniquet was inflated. Attention was directed to the posterior aspect of the patient's right lower extremity. The posterior heel wound measured 12 cm x 8 cm x 4 cm. Utilizing a sharp, sterile, 15 blade, nonviable tissue was excised sharply from the right retrocalcaneal heel to level of bone. At this time an oscillating bone saw was utilized to resect the posterior calcaneus. Once the ostectomy was completed the excised calcaneus was removed and placed on the back table, labeled and sent in formalin to pathology. Next 1 Liter of lactate ringer was utilized to irrigate under low flow. A significant deficit was noted to the posterior heel. The new posterior heel wound measurements were approximately 12 cm x 8 cm x 5 cm. At this time a rotational advancement skin plasty was applied with and attentional incision made adjacent to the wound over the lateral aspect of heel allowing for full thickness flaps to cover the deficit. The wound was then closed with horizontal mattress suture technique utilizing 2-0 nylon. Simple sutures were also applied with 2-0 nylon for complete reapproximation. The wound was covered with 4x4 gauze, ABD, Kerlix, Dontae. Patient tolerated procedure and anesthesia well. The Patient was transferred to recovery room with vital signs stable and vascular status intact to the right foot. Following a period of postoperative monitoring the patient will be re admitted to the floor resuming all pre operative orders. I attest to the content of the Intraoperative Record and any orders documented therein. Any exceptions are noted below.
[2023-09-03 06:07] LABS: Basophils % (auto) 0.7 %; Eosinophils # (auto) 0.14 K/uL (0.00-0.50); Eosinophils % (auto) 0.9 %; Hematocrit (blood only) 29.5 % (42.0-52.0); Hemoglobin 9.6 g/dl (14.0-18.0); Immature Granulocytes # (auto) 0.18 K/uL (0.01-0.20); Immature Granulocytes % (auto) 1.2 %; Lymphocytes # (auto) 1.89 K/uL (1.20-3.40); Lymphocytes % (auto) 12.6 %; Mean Corpuscular Hemoglobin 26.6 pg (25.0-34.0); Mean Corpuscular Hgb Conc 32.5 g/dL (32.0-36.0); Mean Corpuscular Volume 81.7 fL (80.0-100.0); Mean Platelet Volume 9.2 fL (9.4-12.4); Monocytes # (auto) 1.86 K/uL (0.11-0.59); Monocytes % (auto) 12.4 %; Neutrophils # (auto) 10.87 K/uL (1.40-6.50); Neutrophils % (auto) 72.2 %; Platelet Count 704 K/uL (130-400); RDW Coefficient of Variation 18.1 % (11.5-14.5); RDW Standard Deviation 52.8 fL (36.4-46.3); Red Blood Count 3.61 M/uL (4.70-6.10); White Blood Count 15.04 K/ul (4.8-10.8)
[2023-09-03 06:19] LABS: Albumin Globulin Ratio 0.7 (0.9-2); Albumin Level 2.5 gm/dl (3.4-5.0); Bilirubin,Total 0.2 mg/dl (0.2-1.0); Creatinine Clr Calc Pharmacy 40.6 ml/min; Est GFR (African American) 41.1 ml/min; Est GFR (Non-African American) 35.5 ml/min; Globulin 3.6 gm/dl (2.5-4.0); Magnesium 1.9 mg/dl (1.7-2.4); Phosphorus 3.3 mg/dl (2.5-4.9); Potassium 5.2 mmol/L (3.5-5.1); Total Protein 6.1 gm/dl (6.0-8.3)
--- NOTE | 2023-09-03 14:41 | Hospitalist Progress Note ---
Date of Service September 03, 2023 Assessment & Plan (1) Osteomyelitis of ankle or foot, acute: (2) Acute kidney injury superimposed on CKD: (3) Diarrhea: (4) CRF (chronic renal failure): (5) Cellulitis of right foot: (6) Anemia: (7) HTN (hypertension): Plan Patient is a 58yoM with PMHx significant for DM type I, CKD stage III, diabetic neuropathy, HTN, hypothyroidism, chronic hyperkalemia, chronic anemia who presents to the ED from [facility] for worsening foot wound. Denies fever, chills. History: 05/2023 polymicrobial right heel wound that was treated with ertapenem and amoxicillin. 06/2023-07/2023 diabetic ulcer of right foot, osteomyelitis s/p wound debridement and calcaneal ostectomy, with wound vac. Bone pathology sample + MRSA, GBS, VRE. ID had recommended daptomycin x 6 weeks. Leukocytosis present on admission MRI of foot shows worsening osteomyelitis of the calcaneal tuberosity ESR elevated to 90, CRP elevated to 19.1 Mg per DL on August 27, 2023 R calcaneus Osteomyelitis Status post I&D of right heel wound with partial excision calcaneus osteotomy on August 27, 2023 Culture, right foot 08/27- grew K pneumoniae, ESBL E coli, Proteus, Bacteroides and Prevotella, the first 3 all sensitive to Ertapenem. Blood [id number] growth to date IntraOp Gram stain negative ID consulted- appreciate recs -recommended switching from Daptomycin to Zosyn before cultures were finalized. -Zosyn switched to Invanz on 08/30, continue -ID recommending amputation, stating likely infection would not be able to be cured with antibiotics only. Per podiatry, pt refusing amputation, would like to salvage limb. -Awaiting further recs from ID for duration of treatment in setting of no amputation, post-procedure (Right Foot Partial Calcectomy, Delayed Primary Closure) on 09/02 Appreciate podiatry recs- amputation vs. further debridement -s/p further resection of calcaneus for attempted clear margins with some delayed closure on 09/02/23 Continue with Invanz pending further recs from ID Chronic hyperkalemia K: Around 4.5-5 on admission, wnl Treated with daily Veltassa Pt has been refusing doses, stating that it "makes me sick" K+ elevated at 5.3 on 09/02, pt still declining Veltassa Low potassium diet ordered Continue to monitor Diarrhea Diarrhea present upon arrival. Reported diarrhea x 2-3 days Is on antibiotics C. difficile negative Imodium as needed Diabetes mellitus type 1 On chronic insulin A1c: 6.8 on 07/20/2023 Continue basal bolus insulin Acute kidney injury superimposed on CKD Presented with creatinine of 2.75; baseline creatinine around 2.2 Improved with IV hydration hydrate as needed Chronic anemia Hgb: 11. Baseline appears~9 On Epogen weekly Continue folic acid, B12 Hypothyroidism Chronic Continue levothyroxine Depression Chronic, stable Continue fluoxetine, hydroxyzine Dyslipidemia Chronic Held atorvastatin while on daptomycin Resumed on Invanz Chronic hyponatremia Sodium around 131-134 Currently wnl Monitor BMP DVT Prophylaxis: Heparin SQ CODE STATUS: Full Code as per discussion with pt Diet: DMI Dispo: From [facility], to return once treatment complete Admission and Anticipated Discharge Date Admission Date: August 25, 2023 Subjective Pt was seen with guards at bedside. Denied acute concerns. Review of Systems Review of Systems: All systems reviewed & are unremarkable except as noted in Subjective Physical Exam Physical Exam: General: Alert, oriented. No acute distress Psych: Appropriate mood and affect Neuro: No gross deficits HEENT: NC/AT CV: RRR Resp: Breath sounds clear bilaterally, no increased effort of breathing. Abdomen: Soft, nontender, nondistended. Extremities: No edema in lower extremities bilaterally. right foot bandaged. Results & Data Results & Data Vital Signs (Past 12 Hours) Vital Signs Temp Pulse Pulse Resp BP Pulse Ox O2 Del Method 09/03/23 10:37 36.8 C 76 17 113/68 100 Room Air 09/03/23 08:02 36.9 C 82 16 160/78 H 97 Room Air 09/03/23 05:57 71 09/03/23 04:00 36.9 C 85 18 147/80 H 98 Room Air (4) CRF (chronic renal failure) Chronic kidney disease stage: unspecified stage Qualified Code(s): N18.9 - Chronic kidney disease, unspecified (6) Anemia Anemia type: unspecified type Qualified Code(s): D64.9 - Anemia, unspecified
--- NOTE | 2023-09-03 19:16 | Orthopedic Progress Note ---
Date of Service September 03, 2023 Assessment & Plan (1) Osteomyelitis of ankle or foot, acute: Plan: Patient seen and evaluated in room 254-1. Patient is status post day #1 right calcaneus resection with delayed closure (DOS: 09/03/23). Reviewed BKA with Patient. Declines BKA. Awaiting new Pathology results for conformation of clear margins. Thank you for allowing me to participate in the care of this Patient. Admission and Anticipated Discharge Date Admission Date: August 25, 2023 Subjective Patient seen at bedside in room W254-1. Patient is status post day #1 resection of calcaneus with delayed closure (DOS: 09/02/23) Denied acute concerns. Physical Exam Constitutional: + frail appearing, cooperative and comfo rtable Eyes: normal visual case by confrontation Respiratory: normal respiratory effort Cardiovascular: Rate/Rhythm: regular rate and regular rhythm Vessels: posterior tibial pulses present and dorsalis pedis pulses present Musculoskeletal: Extremities: extremities normal to inspection Skin: + ecchymosis (Right heel ) Psychiatric: Orientation: alert and oriented x 3 Results & Data Vital Signs (Past 12 Hours) Vital Signs Temp Pulse Pulse Resp BP Pulse Ox O2 Del Method 09/03/23 15:26 36.6 C 70 18 144/78 H 98 Room Air 09/03/23 14:16 68 09/03/23 13:51 36.8 C 75 16 106/65 97 Room Air 09/03/23 10:37 36.8 C 76 17 113/68 100 Room Air 09/03/23 08:02 36.9 C 82 16 160/78 H 97 Room Air
[2023-09-04 05:22] LABS: Basophils # (auto) 0.09 K/uL (0.00-0.20); Basophils % (auto) 0.6 %; Eosinophils # (auto) 0.38 K/uL (0.00-0.50); Eosinophils % (auto) 2.6 %; Hematocrit (blood only) 31.1 % (42.0-52.0); Immature Granulocytes # (auto) 0.22 K/uL (0.01-0.20); Immature Granulocytes % (auto) 1.5 %; Lymphocytes # (auto) 1.97 K/uL (1.20-3.40); Lymphocytes % (auto) 13.5 %; Mean Corpuscular Hemoglobin 27.3 pg (25.0-34.0); Mean Corpuscular Hgb Conc 32.2 g/dL (32.0-36.0); Mean Platelet Volume 9.1 fL (9.4-12.4); Monocytes # (auto) 1.46 K/uL (0.11-0.59); Neutrophils # (auto) 10.42 K/uL (1.40-6.50); Neutrophils % (auto) 71.8 %; Platelet Count 674 K/uL (130-400); RDW Coefficient of Variation 18.2 % (11.5-14.5); RDW Standard Deviation 55.5 fL (36.4-46.3); Red Blood Count 3.66 M/uL (4.70-6.10); White Blood Count 14.54 K/ul (4.8-10.8)
[2023-09-04 05:40] LABS: Albumin Globulin Ratio 0.7 (0.9-2); Albumin Level 2.5 gm/dl (3.4-5.0); BUN Creatinine Ratio 19.7 (10-20); Bilirubin,Total 0.2 mg/dl (0.2-1.0); Calcium 8.1 mg/dl (8.6-10.3); Creatinine Clr Calc Pharmacy 41.7 ml/min; Est GFR (African American) 42.9 ml/min; Globulin 3.7 gm/dl (2.5-4.0); Magnesium 1.8 mg/dl (1.7-2.4); Phosphorus 3.3 mg/dl (2.5-4.9); Potassium 5.3 mmol/L (3.5-5.1); Total Protein 6.2 gm/dl (6.0-8.3)
[2023-09-04] MEDS ORDERED: GLUCOSE 40% GEL 15 GM TUBE PO PRN (05:52)
[2023-09-04] MEDS ORDERED: GLUCOSE 10 TAB/TUBE PO PRN (05:52)
[2023-09-04] MEDS ORDERED: GLUCAGON FOR INJ 1 MG VIAL SQ PRN (05:52)
[2023-09-04] MEDS: SODIUM CHLORIDE 0.9% 1,000 ML IV ONE (06:05)
[2023-09-04] MEDS: INSULIN ASPART PER UNIT CHARGE SC SCH (06:06)
[2023-09-04] MEDS: LANTUS PER UNIT CHARGE SQ SCH (06:06)
[2023-09-04 07:41] LABS: Estimated Average Glucose 160 mg/dl; Hemoglobin A1C 7.2 % (4.5-5.6)
[2023-09-04] MEDS: SODIUM BICARBONATE 650 MG TAB PO SCH (08:08)
--- NOTE | 2023-09-04 16:43 | Hospitalist Progress Note ---
Date of Service September 04, 2023 Assessment & Plan (1) Osteomyelitis of ankle or foot, acute: (2) Acute kidney injury superimposed on CKD: (3) Diarrhea: (4) CRF (chronic renal failure): (5) Cellulitis of right foot: (6) Anemia: (7) HTN (hypertension): Plan Patient is a 58yoM with PMHx significant for DM type I, CKD stage III, diabetic neuropathy, HTN, hypothyroidism, chronic hyperkalemia, chronic anemia who presents to the ED from [facility] for worsening foot wound. Denies fever, chills. History: 05/2023 polymicrobial right heel wound that was treated with ertapenem and amoxicillin. 06/2023-07/2023 diabetic ulcer of right foot, osteomyelitis s/p wound debridement and calcaneal ostectomy, with wound vac. Bone pathology sample + MRSA, GBS, VRE. ID had recommended daptomycin x 6 weeks. Leukocytosis present on admission MRI of foot shows worsening osteomyelitis of the calcaneal tuberosity ESR elevated to 90, CRP elevated to 19.1 Mg per DL on August 27, 2023 R calcaneus Osteomyelitis Status post I&D of right heel wound with partial excision calcaneus osteotomy on August 27, 2023 Culture, right foot 08/27- grew K pneumoniae, ESBL E coli, Proteus, Bacteroides and Prevotella, the first 3 all sensitive to Ertapenem. Blood [id number] growth to date IntraOp Gram stain negative ID consulted- appreciate recs -recommended switching from Daptomycin to Zosyn before cultures were finalized. -Zosyn switched to Invanz on 08/30, continue -ID recommending amputation, stating likely infection would not be able to be cured with antibiotics only. Per podiatry, pt refusing amputation, would like to salvage limb. -Awaiting further recs from ID for duration of treatment in setting of no amputation, post-procedure (Right Foot Partial Calcectomy, Delayed Primary Closure) on 09/02 Appreciate podiatry recs- amputation vs. further debridement -s/p further resection of calcaneus for attempted clear margins with some delayed closure on 09/02/23 -currently awaiting pathology results to confirm clear margins per podiatry on 09/04 Continue with Invanz pending further recs from ID -case discussed with ID Dr Ellis on 09/04. Strongly advising amputation. However, states that if IV antibiotics is needed for treatment continue with IV Invanz for 6 weeks. Appreciate recs. [facility] called and updated. Chronic hyperkalemia K: Around 4.5-5 on admission, wnl Treated with daily Veltassa Pt has been refusing doses, stating that it "makes me sick" K+ elevated at 5.3 on 09/02, pt still declining Veltassa Low potassium diet ordered Continue to monitor Diarrhea Diarrhea present upon arrival. Reported diarrhea x 2-3 days Is on antibiotics C. difficile negative Imodium as needed Diabetes mellitus type 1 On chronic insulin A1c: 6.8 on 07/20/2023 Continue basal bolus insulin Acute kidney injury superimposed on CKD Presented with creatinine of 2.75; baseline creatinine around 2.2 Improved with IV hydration hydrate as needed Chronic anemia Hgb: 11. Baseline appears~9 On Epogen weekly Continue folic acid, B12 Hypothyroidism Chronic Continue levothyroxine Depression Chronic, stable Continue fluoxetine, hydroxyzine Dyslipidemia Chronic Held atorvastatin while on daptomycin Resumed on Invanz Chronic hyponatremia Sodium around 131-134 Currently wnl Monitor BMP DVT Prophylaxis: Heparin SQ CODE STATUS: Full Code as per discussion with pt Diet: DMI Dispo: From [facility], to return once treatment complete Admission and Anticipated Discharge Date Admission Date: August 25, 2023 Subjective Pt seen with guards at bedside. Denies acute concerns. Podiatry awaiting pathology to confirm clear margins. Discussed case with ID, recommending 6 weeks of Invanz [facility] called and updated that pt will likely need 6 weeks of Invanz per ID recs. Review of Systems Review of Systems: All systems reviewed & are unremarkable except as noted in Subjective Physical Exam Physical Exam: General: Alert, oriented. No acute distress Psych: Appropriate mood and affect Neuro: No gross deficits HEENT: NC/AT CV: RRR Resp: Breath sounds clear bilaterally, no increased effort of breathing. Abdomen: Soft, nontender, nondistended. Extremities: No edema in lower extremities bilaterally. right foot bandaged. Results & Data Results & Data Vital Signs (Past 12 Hours) Vital Signs Temp Pulse Pulse Resp BP Pulse Ox O2 Del Method 09/04/23 16:23 36.7 C 72 18 128/72 97 Room Air 09/04/23 15:02 73 09/04/23 11:38 36.6 C 76 18 162/86 H 97 Room Air 09/04/23 08:10 Room Air 09/04/23 07:39 36.8 C 74 18 120/73 95 Room Air 09/04/23 07:22 79 (4) CRF (chronic renal failure) Chronic kidney disease stage: unspecified stage Qualified Code(s): N18.9 - Chronic kidney disease, unspecified (6) Anemia Anemia type: unspecified type Qualified Code(s): D64.9 - Anemia, unspecified
--- NOTE | 2023-09-04 20:46 | Orthopedic Progress Note ---
Date of Service September 04, 2023 Assessment & Plan (1) Osteomyelitis of ankle or foot, acute: Plan: Patient seen and evaluated in room 254-1. Patient is status post day #2 right calcaneus resection with delayed closure (DOS: 09/03/23). Awaiting new Pathology results for conformation of clear margins. Thank you for allowing me to participate in the care of this Patient. Admission and Anticipated Discharge Date Admission Date: August 25, 2023 Subjective Patient seen at bedside in room W254-1. Patient is status post day #2 resection of calcaneus with delayed closure (DOS: 09/02/23) Patient has no complaints. Physical Exam Constitutional: + frail appearing, cooperative and comfo rtable Eyes: normal visual case by confrontation Respiratory: normal respiratory effort Cardiovascular: Rate/Rhythm: regular rate and regular rhythm Vessels: posterior tibial pulses present and dorsalis pedis pulses present Musculoskeletal: Extremities: extremities normal to inspection Skin: + ulcer (right full thickness ), + ecchy mosis (Right heel ) and + erythema (Right heel wound) Psychiatric: Orientation: alert and oriented x 3 Results & Data Vital Signs (Past 12 Hours) Vital Signs Temp Pulse Pulse Resp BP Pulse Ox O2 Del Method 09/04/23 19:56 36.7 C 72 18 152/79 H 98 Room Air 09/04/23 16:23 36.7 C 72 18 128/72 97 Room Air 09/04/23 15:02 73 09/04/23 11:38 36.6 C 76 18 162/86 H 97 Room Air
[2023-09-05 06:31] LABS: Basophils # (auto) 0.14 K/uL (0.00-0.20); Eosinophils # (auto) 0.52 K/uL (0.00-0.50); Eosinophils % (auto) 3.8 %; Hemoglobin 9.7 g/dl (14.0-18.0); Immature Granulocytes # (auto) 0.19 K/uL (0.01-0.20); Immature Granulocytes % (auto) 1.4 %; Lymphocytes # (auto) 1.93 K/uL (1.20-3.40); Lymphocytes % (auto) 14.1 %; Mean Corpuscular Hemoglobin 26.6 pg (25.0-34.0); Mean Corpuscular Hgb Conc 31.3 g/dL (32.0-36.0); Mean Corpuscular Volume 85.2 fL (80.0-100.0); Mean Platelet Volume 9.4 fL (9.4-12.4); Monocytes # (auto) 0.94 K/uL (0.11-0.59); Monocytes % (auto) 6.8 %; Neutrophils # (auto) 10.01 K/uL (1.40-6.50); Neutrophils % (auto) 72.9 %; Platelet Count 691 K/uL (130-400); RDW Coefficient of Variation 18.3 % (11.5-14.5); RDW Standard Deviation 56.9 fL (36.4-46.3); Red Blood Count 3.64 M/uL (4.70-6.10); White Blood Count 13.73 K/ul (4.8-10.8)
[2023-09-05 07:02] LABS: Albumin Globulin Ratio 0.7 (0.9-2); Albumin Level 2.6 gm/dl (3.4-5.0); BUN Creatinine Ratio 18.9 (10-20); Bilirubin,Total 0.2 mg/dl (0.2-1.0); Calcium 8.1 mg/dl (8.6-10.3); Creatinine Clr Calc Pharmacy 41.1 ml/min; Est GFR (African American) 42.1 ml/min; Est GFR (Non-African American) 36.4 ml/min; Globulin 3.7 gm/dl (2.5-4.0); Magnesium 1.8 mg/dl (1.7-2.4); Phosphorus 3.2 mg/dl (2.5-4.9); Potassium 5.2 mmol/L (3.5-5.1); Total Protein 6.3 gm/dl (6.0-8.3)
--- NOTE | 2023-09-05 15:44 | Hospitalist Progress Note ---
Date of Service September 05, 2023 Assessment & Plan (1) Osteomyelitis of ankle or foot, acute: (2) Acute kidney injury superimposed on CKD: (3) Diarrhea: (4) CRF (chronic renal failure): (5) Cellulitis of right foot: (6) Anemia: (7) HTN (hypertension): Plan Patient is a 58yoM with PMHx significant for DM type I, CKD stage III, diabetic neuropathy, HTN, hypothyroidism, chronic hyperkalemia, chronic anemia who presents to the ED from [facility] for worsening foot wound. Denies fever, chills. History: 05/2023 polymicrobial right heel wound that was treated with ertapenem and amoxicillin. 06/2023-07/2023 diabetic ulcer of right foot, osteomyelitis s/p wound debridement and calcaneal ostectomy, with wound vac. Bone pathology sample + MRSA, GBS, VRE. ID had recommended daptomycin x 6 weeks. Leukocytosis present on admission MRI of foot shows worsening osteomyelitis of the calcaneal tuberosity ESR elevated to 90, CRP elevated to 19.1 Mg per DL on August 27, 2023 R calcaneus Osteomyelitis Status post I&D of right heel wound with partial excision calcaneus osteotomy on August 27, 2023 Culture, right foot 08/27- grew K pneumoniae, ESBL E coli, Proteus, Bacteroides and Prevotella, the first 3 all sensitive to Ertapenem. Blood [id number] growth to date IntraOp Gram stain negative ID consulted- appreciate recs -recommended switching from Daptomycin to Zosyn before cultures were finalized. -Zosyn switched to Invanz on 08/30, continue -ID recommending amputation, stating likely infection would not be able to be cured with antibiotics only. Per podiatry, pt refusing amputation, would like to salvage limb. -Awaiting further recs from ID for duration of treatment in setting of no amputation, post-procedure (Right Foot Partial Calcectomy, Delayed Primary Closure) on 09/02 Appreciate podiatry recs- amputation vs. further debridement -s/p further resection of calcaneus for attempted clear margins with some delayed closure on 09/02/23 -currently awaiting pathology results to confirm clear margins per podiatry on 09/04 Continue with Invanz pending further recs from ID -case discussed with ID Dr Ellis on 09/04. Strongly advising amputation. However, states that if IV antibiotics is needed for treatment continue with IV Invanz for 6 weeks. Appreciate recs. [facility] called and updated. 09/05- awaiting pathology results from podiatry sample Chronic hyperkalemia K: Around 4.5-5 on admission, wnl Treated with daily Veltassa Pt has been refusing doses, stating that it "makes me sick" K+ elevated at 5.3 on 09/02, pt still declining Veltassa Low potassium diet ordered Continue to monitor Diarrhea Diarrhea present upon arrival. Reported diarrhea x 2-3 days Is on antibiotics C. difficile negative Imodium as needed Diabetes mellitus type 1 On chronic insulin A1c: 6.8 on 07/20/2023 Continue basal bolus insulin Acute kidney injury superimposed on CKD Presented with creatinine of 2.75; baseline creatinine around 2.2 Improved with IV hydration hydrate as needed Chronic anemia Hgb: 11. Baseline appears~9 On Epogen weekly Continue folic acid, B12 Hypothyroidism Chronic Continue levothyroxine Depression Chronic, stable Continue fluoxetine, hydroxyzine Dyslipidemia Chronic Held atorvastatin while on daptomycin Resumed on Invanz Chronic hyponatremia Sodium around 131-134 Currently wnl Monitor BMP DVT Prophylaxis: Heparin SQ CODE STATUS: Full Code as per discussion with pt Diet: DMI Dispo: From [facility], to return once pathology and abx rx finalized Admission and Anticipated Discharge Date Admission Date: August 25, 2023 Subjective Pt seen with guards at bedside. Denies acute concerns. Review of Systems Review of Systems: All systems reviewed & are unremarkable except as noted in Subjective Physical Exam Physical Exam: General: Alert, oriented. No acute distress Psych: Appropriate mood and affect Neuro: No gross deficits HEENT: NC/AT CV: RRR Resp: Breath sounds clear bilaterally, no increased effort of breathing. Abdomen: Soft, nontender, nondistended. Extremities: No edema in lower extremities bilaterally. right foot bandaged. Results & Data Results & Data Vital Signs (Past 12 Hours) Vital Signs Temp Pulse Resp BP Pulse Ox O2 Del Method 09/05/23 12:42 36.9 C 75 18 112/68 100 Room Air 09/05/23 08:48 36.8 C 77 18 164/84 H 99 Room Air (4) CRF (chronic renal failure) Chronic kidney disease stage: unspecified stage Qualified Code(s): N18.9 - Chronic kidney disease, unspecified (6) Anemia Anemia type: unspecified type Qualified Code(s): D64.9 - Anemia, unspecified
[2023-09-06 06:30] LABS: Basophils # (auto) 0.12 K/uL (0.00-0.20); Eosinophils # (auto) 0.47 K/uL (0.00-0.50); Eosinophils % (auto) 3.8 %; Hematocrit (blood only) 31.1 % (42.0-52.0); Hemoglobin 9.7 g/dl (14.0-18.0); Immature Granulocytes # (auto) 0.12 K/uL (0.01-0.20); Lymphocytes # (auto) 1.96 K/uL (1.20-3.40); Lymphocytes % (auto) 15.9 %; Mean Corpuscular Hemoglobin 26.7 pg (25.0-34.0); Mean Corpuscular Hgb Conc 31.2 g/dL (32.0-36.0); Mean Corpuscular Volume 85.7 fL (80.0-100.0); Mean Platelet Volume 9.4 fL (9.4-12.4); Monocytes # (auto) 0.96 K/uL (0.11-0.59); Monocytes % (auto) 7.8 %; Neutrophils # (auto) 8.69 K/uL (1.40-6.50); Neutrophils % (auto) 70.5 %; Platelet Count 735 K/uL (130-400); RDW Coefficient of Variation 18.5 % (11.5-14.5); RDW Standard Deviation 58.2 fL (36.4-46.3); Red Blood Count 3.63 M/uL (4.70-6.10); White Blood Count 12.32 K/ul (4.8-10.8)
[2023-09-06 07:17] LABS: Albumin Globulin Ratio 0.7 (0.9-2); Albumin Level 2.6 gm/dl (3.4-5.0); BUN Creatinine Ratio 18.6 (10-20); Bilirubin,Total 0.2 mg/dl (0.2-1.0); Calcium 8.2 mg/dl (8.6-10.3); Creatinine Clr Calc Pharmacy 37.4 ml/min; Est GFR (African American) 37.7 ml/min; Est GFR (Non-African American) 32.5 ml/min; Globulin 3.7 gm/dl (2.5-4.0); Magnesium 1.9 mg/dl (1.7-2.4); Phosphorus 2.9 mg/dl (2.5-4.9); Potassium 5.7 mmol/L (3.5-5.1); Total Protein 6.3 gm/dl (6.0-8.3)
--- NOTE | 2023-09-06 10:51 | Hospitalist Progress Note ---
Date of Service September 06, 2023 Assessment & Plan (1) Osteomyelitis of ankle or foot, acute: (2) Acute kidney injury superimposed on CKD: (3) Diarrhea: (4) CRF (chronic renal failure): (5) Cellulitis of right foot: (6) Anemia: (7) HTN (hypertension): Plan 58 year old man with PMHx significant for DM type I, CKD stage III, diabetic neuropathy, HTN, hypothyroidism, chronic hyperkalemia, chronic anemia who presents to the ED from [facility] for worsening right foot wound. Denied fever, chills. History: 05/2023 polymicrobial right heel wound that was treated with ertapenem and amoxicillin. 06/2023-07/2023 diabetic ulcer of right foot, osteomyelitis s/p wound debridement and calcaneal ostectomy, with wound vac. Bone pathology sample + MRSA, GBS, VRE. ID had recommended daptomycin x 6 weeks. Leukocytosis present on admission MRI of foot shows worsening osteomyelitis of the calcaneal tuberosity ESR elevated to 90, CRP elevated to 19.1 Mg per DL on August 27, 2023 R calcaneus Osteomyelitis Status post I&D of right heel wound with partial excision calcaneus osteotomy on August 27, 2023 Culture, right foot 08/27- grew K pneumoniae, ESBL E coli, Proteus, Bacteroides and Prevotella, the first 3 all sensitive to Ertapenem. Blood [id number] growth to date IntraOp Gram stain negative ID consulted- appreciate recs -recommended switching from Daptomycin to Zosyn before cultures were finalized. -Zosyn switched to Invanz on 08/30 -ID recommending amputation, stating likely infection would not be able to be cured with antibiotics only. Per podiatry, pt refusing amputation, would like to salvage limb. S/p further resection of calcaneus for attempted clear margins with some delayed closure on 09/02/23 Continue with Invanz pending further recs from ID/plans by Podiatry Dr Bowen discussed with ID Dr Ellis on 09/04/23. ID strongly advising amputation. However, states that if IV antibiotics is needed for treatment continue with IV Invanz for 6 weeks. Currently awaiting pathology results to confirm clear margins per podiatry on 09/04 Chronic hyperkalemia K: Around 4.5-5 on admission Treated with daily Veltassa. However, he has been refusing doses, stating that it causes GI upset Currently on low potassium diet K is 5.7 today Counseled patient on risks of hyperkalemia including cardiac arrest, need for HD if he keeps refusing to take meds and it keeps trending up He agreed to take veltassa today. RN notified Diarrhea Diarrhea present upon arrival. Reported diarrhea x 2-3 days Is on antibiotics C. difficile negative Imodium as needed Diabetes mellitus type 1 On chronic insulin A1c: 6.8 on 07/20/2023 Continue basal bolus insulin Acute kidney injury superimposed on CKD3 Presented with creatinine of 2.75; baseline creatinine around 2.2 Improved with IV hydration Monitor Chronic anemia Hgb stable On Epogen weekly Continue folic acid, B12 Hypothyroidism Chronic Continue levothyroxine Depression Chronic, stable Continue fluoxetine, hydroxyzine Dyslipidemia Chronic On atorvastatin Chronic hyponatremia Sodium around 131-134 Monitor BMP DVT Prophylaxis: Heparin SQ CODE STATUS: Full Code as per discussion with pt Diet: DMI Dispo: From [facility], to return once stable I spent a total of 50 minutes coordinating, documenting and providing care for this patient excluding time spent in performance of separately billed services Admission and Anticipated Discharge Date Admission Date: August 25, 2023 Subjective Patient seen and examined Denied any new complaints Denied any pain in LE due to chronic neuropathy upto knees Denied fever, chills, nausea, vomiting, abd pain, diarrhea Denied cough, chest pain, SOB Physical Exam Constitutional: + well hydrated; no acute distress Eyes: PERRL, conjunctivae normal, anicteric sclerae ENMT: external ear and nose normal, oropharynx normal Respiratory: normal respiratory effort, lungs clear to auscultation Cardiovascular: Rate/Rhythm: regular rate and regular rhythm S1 S2 Gastrointestinal (Abdomen): normal bowel sounds, soft, nontender, no hepatosplenomegaly Musculoskeletal: Right foot bandaged Neurologic: PERRL, EOMI, accommodation nl, no face palsy, no dysarthria Psychiatric: A+Ox3, euthymic affect Results & Data Results & Data Vital Signs (Past 12 Hours) Vital Signs Temp Pulse Pulse Resp BP Pulse Ox O2 Del Method 09/06/23 07:36 36.8 C 76 17 151/85 H 97 Room Air 09/06/23 07:28 73 09/06/23 03:00 36.7 C 77 16 156/81 H 97 Room Air 09/05/23 22:54 67 Laboratory Results Abnormal lab results 09/05/23 09/05/23 09/05/23 Range/Units 11:47 16:36 16:39 WBC (4.8-10.8) K/ul RBC (4.70-6.10) M/uL Hgb (14.0-18.0) g/dl Hct (42.0-52.0) % MCHC (32.0-36.0) g/dL RDW Std Deviation (36.4-46.3) fL RDW Coeff of Minnie (11.5-14.5) % Plt Count (130-400) K/uL Neut # (Auto) (1.40-6.50) K/uL Sumner # (Auto) (0.11-0.59) K/uL Sodium (136-145) mmol/L Potassium (3.5-5.1) mmol/L BUN (6-23) mg/dl Creatinine (0.6-1.4) mg/dl Glucose (70-99(Fasting)) mg/dl POC Glucose 158 H 59 L* 62 L* (70-99) mg/dl Calcium (8.6-10.3) mg/dl Albumin (3.4-5.0) gm/dl Albumin/Globulin Ratio (0.9-2) 09/05/23 09/05/23 09/05/23 Range/Units 16:40 17:02 17:31 WBC (4.8-10.8) K/ul RBC (4.70-6.10) M/uL Hgb (14.0-18.0) g/dl Hct (42.0-52.0) % MCHC (32.0-36.0) g/dL RDW Std Deviation (36.4-46.3) fL RDW Coeff of Minnie (11.5-14.5) % Plt Count (130-400) K/uL Neut # (Auto) (1.40-6.50) K/uL Sumner # (Auto) (0.11-0.59) K/uL Sodium (136-145) mmol/L Potassium (3.5-5.1) mmol/L BUN (6-23) mg/dl Creatinine (0.6-1.4) mg/dl Glucose (70-99(Fasting)) mg/dl POC Glucose 60 L* 69 L* 103 H (70-99) mg/dl Calcium (8.6-10.3) mg/dl Albumin (3.4-5.0) gm/dl Albumin/Globulin Ratio (0.9-2) 09/05/23 09/06/23 Range/Units 20:25 05:33 WBC 12.32 H (4.8-10.8) K/ul RBC 3.63 L (4.70-6.10) M/uL Hgb 9.7 L (14.0-18.0) g/dl Hct 31.1 L (42.0-52.0) % MCHC 31.2 L (32.0-36.0) g/dL RDW Std Deviation 58.2 H (36.4-46.3) fL RDW Coeff of Minnie 18.5 H (11.5-14.5) % Plt Count 735 H (130-400) K/uL Neut # (Auto) 8.69 H (1.40-6.50) K/uL Sumner # (Auto) 0.96 H (0.11-0.59) K/uL Sodium 135 L (136-145) mmol/L Potassium 5.7 H (3.5-5.1) mmol/L BUN 40 H (6-23) mg/dl Creatinine 2.15 H (0.6-1.4) mg/dl Glucose 167 H (70-99(Fasting)) mg/dl POC Glucose 151 H (70-99) mg/dl Calcium 8.2 L (8.6-10.3) mg/dl Albumin 2.6 L (3.4-5.0) gm/dl Albumin/Globulin Ratio 0.7 L (0.9-2) (4) CRF (chronic renal failure) Chronic kidney disease stage: unspecified stage Qualified Code(s): N18.9 - Chronic kidney disease, unspecified (6) Anemia Anemia type: unspecified type Qualified Code(s): D64.9 - Anemia, unspecified
[2023-09-06] MEDS: PATIROMER CALCIUM SORBITEX 8.4 GM PACK PO SCH (14:07)
[2023-09-07 06:32] LABS: Hematocrit (blood only) 30.4 % (42.0-52.0); Hemoglobin 9.8 g/dl (14.0-18.0); Mean Corpuscular Hemoglobin 26.6 pg (25.0-34.0); Mean Corpuscular Hgb Conc 32.2 g/dL (32.0-36.0); Mean Corpuscular Volume 82.6 fL (80.0-100.0); Mean Platelet Volume 8.8 fL (9.4-12.4); Platelet Count 680 K/uL (130-400); RDW Coefficient of Variation 18.9 % (11.5-14.5); RDW Standard Deviation 56.7 fL (36.4-46.3); Red Blood Count 3.68 M/uL (4.70-6.10); White Blood Count 13.01 K/ul (4.8-10.8)
[2023-09-07 07:23] LABS: Calcium 8.3 mg/dl (8.6-10.3); Creatinine Clr Calc Pharmacy 34.5 ml/min; Est GFR (African American) 34.4 ml/min; Est GFR (Non-African American) 29.7 ml/min; Potassium 6.1 mmol/L (3.5-5.1)
[2023-09-07] MEDS ORDERED: STAT IV/IM STA (07:34)
[2023-09-07] MEDS: INSULIN HUMAN REGULAR PER UNIT 10 UNITS in SYRINGE 9.9 ML IV ONE (08:28)
[2023-09-07] MEDS: CALCIUM GLUCONATE 10% 1,000 MG in SODIUM CHLOR 0.9% MINI-B 50 ML IV ONE (08:28)
--- NOTE | 2023-09-07 11:00 | Hospitalist Progress Note ---
Date of Service September 07, 2023 Assessment & Plan (1) Osteomyelitis of ankle or foot, acute: (2) Acute kidney injury superimposed on CKD: (3) Diarrhea: (4) CRF (chronic renal failure): (5) Cellulitis of right foot: (6) Anemia: (7) HTN (hypertension): Plan 58 year old man with PMHx significant for DM type I, CKD stage III, diabetic neuropathy, HTN, hypothyroidism, chronic hyperkalemia, chronic anemia who presents to the ED from [facility] for worsening right foot wound. Denied fever, chills. History: 05/2023 polymicrobial right heel wound that was treated with ertapenem and amoxicillin. 06/2023-07/2023 diabetic ulcer of right foot, osteomyelitis s/p wound debridement and calcaneal ostectomy, with wound vac. Bone pathology sample + MRSA, GBS, VRE. ID had recommended daptomycin x 6 weeks. Leukocytosis present on admission MRI of foot shows worsening osteomyelitis of the calcaneal tuberosity ESR elevated to 90, CRP elevated to 19.1 Mg per DL on August 27, 2023 R calcaneus Osteomyelitis Status post I&D of right heel wound with partial excision calcaneus osteotomy on August 27, 2023 Culture, right foot 08/27- grew K pneumoniae, ESBL E coli, Proteus, Bacteroides and Prevotella, the first 3 all sensitive to Ertapenem. Blood [id number] growth to date IntraOp Gram stain negative ID consulted- appreciate recs -recommended switching from Daptomycin to Zosyn before cultures were finalized. -Zosyn switched to Invanz on 08/30 -ID recommending amputation, stating likely infection would not be able to be cured with antibiotics only. Per podiatry, pt refusing amputation, would like to salvage limb. S/p further resection of calcaneus for attempted clear margins with some delayed closure on 09/02/23 Continue with Renato Bowen discussed with ID Dr Ellis on 09/04/23. ID strongly advising amputation. However, states that if IV antibiotics is needed for treatment continue with IV Invanz for 6 weeks. Pathology from 09/04/23 reviewed Discussed with Warehouse Examiner Dr Stout. He will discuss further with patient to determine if patient wants the BKA or continue to defer that until infection worsens. Will follow up with Warehouse Examiner's plans after he discusses with patient. Chronic hyperkalemia K: Around 4.5-5 on admission He was on daily Veltassa. However, he had been declining it for days, stating that it causes GI upset He only agreed to resume it yesterday Currently on low potassium diet K is 6.1 today IV calcium gluconate and insulin ordered per hyperkalemia protocol. No glucose given as glucose was >250 at the time Considering this and his renal function, I will appreciate nephrology's recs Diarrhea Diarrhea present upon arrival. Reported diarrhea x 2-3 days C. difficile negative Imodium as needed Diabetes mellitus type 1 On chronic insulin A1c: 6.8 on 07/20/2023 Continue basal bolus insulin Acute kidney injury superimposed on CKD3 Presented with creatinine of 2.75; baseline creatinine around 2.2 Improved with IV hydration Cr is 2.32 today Chronic anemia Hgb stable On Epogen weekly Continue folic acid, B12 Hypothyroidism Chronic Continue levothyroxine Depression Chronic, stable Continue fluoxetine, hydroxyzine Dyslipidemia Chronic On atorvastatin Chronic hyponatremia Sodium around 131-134 Monitor BMP DVT Prophylaxis: Heparin SQ CODE STATUS: Full Code Diet: DMI Dispo: From [facility], to return once stable I spent a total of 50 minutes coordinating, documenting and providing care for this patient excluding time spent in performance of separately billed services Admission and Anticipated Discharge Date Admission Date: August 25, 2023 Subjective Patient seen and examined Denied any new complaints No LE pains. Has neuropathy to knees No fever, chill, nausea, vomiting Denied cough, chest pain, SOB Physical Exam Constitutional: + well hydrated; no acute distress Eyes: PERRL, conjunctivae normal, anicteric sclerae ENMT: external ear and nose normal, oropharynx normal Respiratory: normal respiratory effort, lungs clear to auscultation Cardiovascular: Rate/Rhythm: regular rate and regular rhythm S1 S2 Gastrointestinal (Abdomen): normal bowel sounds, soft, nontender, no hepatosplenomegaly Musculoskeletal: RLE bandaged Neurologic: PERRL, EOMI, accommodation nl, no face palsy, no dysarthria Psychiatric: A+Ox3, euthymic affect Results & Data Results & Data Vital Signs (Past 12 Hours) Vital Signs Temp Pulse Pulse Resp BP Pulse Ox O2 Del Method 09/07/23 07:55 36.8 C 84 18 158/82 H 95 Room Air 09/07/23 07:35 82 09/07/23 04:45 36.8 C 82 20 159/83 H 97 Room Air 09/06/23 23:16 36.8 C 84 20 127/83 98 Room Air Laboratory Results Abnormal lab results 09/06/23 09/06/23 09/06/23 Range/Units 12:00 17:03 20:06 WBC (4.8-10.8) K/ul RBC (4.70-6.10) M/uL Hgb (14.0-18.0) g/dl Hct (42.0-52.0) % RDW Std Deviation (36.4-46.3) fL RDW Coeff of Minnie (11.5-14.5) % Plt Count (130-400) K/uL MPV (9.4-12.4) fL Sodium (136-145) mmol/L Potassium (3.5-5.1) mmol/L Carbon Dioxide (21-32) mmol/L BUN (6-23) mg/dl Creatinine (0.6-1.4) mg/dl Glucose (70-99(Fasting)) mg/dl POC Glucose 215 H 179 H 193 H (70-99) mg/dl Calcium (8.6-10.3) mg/dl 09/07/23 09/07/23 09/07/23 Range/Units 06:13 07:41 07:42 WBC 13.01 H (4.8-10.8) K/ul RBC 3.68 L (4.70-6.10) M/uL Hgb 9.8 L (14.0-18.0) g/dl Hct 30.4 L (42.0-52.0) % RDW Std Deviation 56.7 H (36.4-46.3) fL RDW Coeff of Minnie 18.9 H (11.5-14.5) % Plt Count 680 H (130-400) K/uL MPV 8.8 L (9.4-12.4) fL Sodium 131 L (136-145) mmol/L Potassium 6.1 H* (3.5-5.1) mmol/L Carbon Dioxide 20 L (21-32) mmol/L BUN 44 H (6-23) mg/dl Creatinine 2.32 H (0.6-1.4) mg/dl Glucose 308 H* (70-99(Fasting)) mg/dl POC Glucose 336 H* 307 H* (70-99) mg/dl Calcium 8.3 L (8.6-10.3) mg/dl 09/07/23 09/07/23 Range/Units 09:31 10:46 WBC (4.8-10.8) K/ul RBC (4.70-6.10) M/uL Hgb (14.0-18.0) g/dl Hct (42.0-52.0) % RDW Std Deviation (36.4-46.3) fL RDW Coeff of Minnie (11.5-14.5) % Plt Count (130-400) K/uL MPV (9.4-12.4) fL Sodium (136-145) mmol/L Potassium (3.5-5.1) mmol/L Carbon Dioxide (21-32) mmol/L BUN (6-23) mg/dl Creatinine (0.6-1.4) mg/dl Glucose (70-99(Fasting)) mg/dl POC Glucose 291 H 204 H (70-99) mg/dl Calcium (8.6-10.3) mg/dl (4) CRF (chronic renal failure) Chronic kidney disease stage: unspecified stage Qualified Code(s): N18.9 - Chronic kidney disease, unspecified (6) Anemia Anemia type: unspecified type Qualified Code(s): D64.9 - Anemia, unspecified
--- NOTE | 2023-09-07 11:16 | Nephrology Consultation ---
Date of Consultation September 07, 2023 Assessment & Plan (1) Hyperkalemia: Stop Veltassa Give Lokelma 10 gm tid. Villalba and quicker acting for current Situation lasix 80 iv x 1 Low K diet. Control blood glucose < 200. give insulin-lowers glucose also Continue Sodium Bicarb (2) Acute kidney injury superimposed on CKD: baseline creat about 2 and now is slightly higher given current situation of Infection/Surgery/Abx. No need of Iv fluid or further workup From underlying Diabetic nephropathy. he Sees nephrology in [facility] through telemed. (3) Osteomyelitis of ankle or foot, acute: On abx and S/p surgery Plan Time spent 62 mins History of Present Illness Reason for Consultation: Hyperkalemia and CKD Attending Physician: Nichol Robles MD History of Present Illness 58/M with CKD 3 B baseline creat around low 2's from LOng standing DM. Admitted for Osteo of the Diabetic foot. Did have surgery few days ago. On ABX. he has been on some type for a while now. K is high at 6.1--Acute on chronic Problem. Does see nephrology at the [facility] through telemed. In fact he is on Sodium bicarb and veltassa through card cutter helper. Creat is slightly higher than baseline. He feels fine. records say has Chronic orthostatic Hypotension and is on Florinef but dont see that in med list ?? ROS--12 Systems reviewed and negative Physical Exam Constitutional: + well hydrated; no acute distress Eyes: PERRL, conjunctivae normal, anicteric sclerae ENMT: external ear and nose normal, oropharynx normal Respiratory: normal respiratory effort, lungs clear to auscultation Cardiovascular: Rate/Rhythm: regular rate and regular rhythm S1 S2 Gastrointestinal (Abdomen): soft, nontender Musculoskeletal: Right foot bandaged. No edema Neurologic: No focal deficit Psychiatric: A+Ox3, euthymic affect Allergies Allergy/AdvReac Type Severity Reaction Status Date / Time sodium chloride AdvReac Unknown CONTRAINDIC Verified 07/19/23 15:29 [From Izard Nasal] ATED. Home Medications Medication Instructions Recorded Confirmed Type alendronate 70 mg tablet 70 mg PO WK 03/05/22 08/25/23 History aspirin 81 mg tablet,delayed 81 mg PO QAM 03/05/22 08/25/23 History release ergocalciferol (vitamin D2) 50 mcg 50 mcg PO WK 03/05/22 08/25/23 History (2,000 unit) capsule fluoxetine 20 mg capsule 40 mg PO QAM 03/05/22 08/25/23 History hydroxyzine pamoate 50 mg capsule 50 mg PO HS 03/05/22 08/25/23 History insulin regular human 100 unit/mL 2 unit subcut BID 03/05/22 08/25/23 History injection solution (Novolin R Regular U-100 Insulin) levothyroxine 150 mcg tablet 150 mcg PO DAILYBB 03/05/22 08/25/23 History metoclopramide HCl 10 mg tablet 10 mg PO ACHS 03/05/22 08/25/23 History ondansetron 8 mg disintegrating 8 mg PO .EVERY 8 HOURS 03/05/22 08/25/23 History tablet pantoprazole 40 mg tablet,delayed 40 mg PO BID 03/05/22 08/25/23 History release patiromer calcium sorbitex 25.2 25.2 g PO QPM 03/05/22 08/25/23 History gram oral powder packet (Veltassa) tamsulosin 0.4 mg capsule 0.4 mg PO HS 03/05/22 08/25/23 History vitamin B complex with C-folic 1 tab PO DAILY 03/05/22 08/25/23 History acid 0.8 mg-zinc citrate 50 mg tablet (Dialyvite 800 with Zinc 50) folic acid 1 mg tablet 1 mg PO QAM #30 tabs 03/06/22 08/25/23 Rx epoetin sanchez 10,000 unit/mL 10,000 unit subcut WK 11/21/22 08/25/23 History injection solution (Epogen) ascorbic acid (vitamin C) 500 mg 500 mg PO QAM 12/14/22 08/25/23 History tablet (Vitamin C) atorvastatin 40 mg tablet 40 mg PO HS 12/14/22 08/25/23 History insulin regular human 100 unit/mL 1 sliding scale dose subcut 12/14/22 08/25/23 History injection solution (Novolin R USEASDIRECTD PRN Hyperglycemia Regular U-100 Insulin) sodium bicarbonate 650 mg tablet 650 mg PO BID 12/14/22 08/25/23 History insulin glargine 100 unit/mL 14 unit subcut DAILY 05/19/23 08/25/23 History subcutaneous solution acetaminophen 500 mg tablet 1,000 mg PO TID 07/19/23 08/25/23 History (Tylenol Extra Strength) loperamide 2 mg capsule (Imodium 4 mg PO BID PRN LOOSE STOOLS 07/19/23 08/25/23 History A-D) Daptomycin 750mg/Ns 750 mg IV DAILY 08/25/23 08/25/23 History Lactobacillus acidoph-L.bulgaricus 1 tab PO TIDM 08/25/23 08/25/23 History 1 million cell tablet (Floranex) cyanocobalamin (vitamin B-12) 100 100 mcg PO DAILY 08/25/23 08/25/23 History mcg tablet (Vitamin B-12) dextrose 40 % oral gel (Glutose-15) 1 ea PO DAILY PRN Hypoglycemia 08/25/23 08/25/23 History glucagon 1 mg solution for 0 mg subcut UD PRN low blood sugar 08/25/23 08/25/23 History injection (Glucagon Emergency Kit) Patient History Medical History Encounter for pre-operative examination HTN (hypertension) Osteomyelitis of ankle CKD (chronic kidney disease), stage III Diabetic ulcer of left ankle Diabetic neuropathy Chronic nausea Chronic hyperkalemia Chronic anemia Chronic hyponatremia CKD (chronic kidney disease) Psoriasis Orthostatic hypotension on chronic fludrocortisone Proteinuria NSTEMI (non-ST elevated myocardial infarction) Diabetes mellitus type 1 Non-STEMI (non-ST elevated myocardial infarction) Hypothyroidism Surgical History Status post right foot surgery Family History Other Heart disease Social History Smoking Status: Never smoker Tobacco Type: Cigarettes Second Hand Exposure: No; Hx Alcohol Use: No Hx Substance Use: No Preferred Language: German Communication Ability: Effective Visual Impairment: No Limitations Quality Intern Required: No Beliefs That Will Affect Care: None Current Living Situation: Other Current Living Situation Comment: [facility] Other Information That Helps Us Care for You: No Feels Safe at Home: Yes Safety Concerns: Feels Safe At This Time Assistive Devices: Wheelchair Results & Data Vital Signs (Past 12 Hours) Vital Signs Temp Pulse Pulse Resp BP Pulse Ox O2 Del Method 09/07/23 07:55 36.8 C 84 18 158/82 H 95 Room Air 09/07/23 07:35 82 09/07/23 04:45 36.8 C 82 20 159/83 H 97 Room Air 09/06/23 23:16 36.8 C 84 20 127/83 98 Room Air Laboratory Results reveiwed Diagnostic Findings reveiwed
[2023-09-07] MEDS: FUROSEMIDE 40 MG/4 ML VIAL IV ONE (11:19)
[2023-09-07] MEDS: SODIUM ZIRCONIUM CYCLOSILICATE 10 GM PACKET PO SCH (12:57)
[2023-09-07 16:29] LABS: Albumin Level 2.6 gm/dl (3.4-5.0); BUN Creatinine Ratio 18.5 (10-20); Creatinine Clr Calc Pharmacy 31.5 ml/min; Est GFR (African American) 30.8 ml/min; Est GFR (Non-African American) 26.6 ml/min; Phosphorus 3.2 mg/dl (2.5-4.9); Potassium 5.2 mmol/L (3.5-5.1)
[2023-09-07] MEDS: DEXTROSE 50% 50 ML SYRINGE IV PRN (16:32)
[2023-09-07] MEDS ORDERED: PHARMACY GLYCEMIC MGMT CONSULT PRN (17:01)
--- NOTE | 2023-09-07 20:52 | Orthopedic Progress Note ---
Date of Service September 07, 2023 Assessment & Plan (1) Osteomyelitis of ankle or foot, acute: Plan: Patient seen and evaluated in room 254-1. Patient is status post day #4 right calcaneus resection with delayed closure (DOS: 09/03/23). I reviewed recent Pathology results with Patient and he understands source control was not obtained. We did discuss recommendation of BKA. He asks to think about this procedure overnight. We will revisit this tomorrow 09/08/23. If Patient declines BKA he is cleared for discharge per podiatry and will receive extended IV abx coverage per ID. Admission and Anticipated Discharge Date Admission Date: August 25, 2023 Subjective Patient seen and examined in W254-1 with guards present. Patient resting comfortably and has no complaints. Physical Exam Constitutional: + frail appearing, cooperative and comfo rtable Eyes: normal visual case by confrontation Respiratory: normal respiratory effort Cardiovascular: Rate/Rhythm: regular rate and regular rhythm Vessels: posterior tibial pulses present and dorsalis pedis pulses present Musculoskeletal: Extremities: extremities normal to inspection Skin: + ulcer (right full thickness ), + ecchy mosis (Right heel ) and + erythema (Right heel wound) Psychiatric: Orientation: alert and oriented x 3 Results & Data Vital Signs (Past 12 Hours) Vital Signs Temp Pulse Pulse Resp BP Pulse Ox O2 Del Method 09/07/23 19:29 36.5 C 73 18 133/79 98 Room Air 09/07/23 15:01 69 09/07/23 14:34 36.8 C 71 16 100/56 L 98 Room Air 09/07/23 12:09 36.6 C 72 18 115/64 100 Room Air Diagnostic Findings [address] [place] [address] Castro Allen M.D. Allergist/Md Pathology Report Name: MARIELA ROSE [id number] Age/Sex: 58/M Location: 2W MR#: [id number] : 1964 Rm/Bed: [facility] Subm. Phys.: Celestino Stout, JAYLA, MS Case #: [id number] Collected: 09/02/23 Received: 09/04/23 Copies To Celestino Stout DPM, MS Mirtha Bowen, FINAL DIAGNOSIS Bone, right calcaneal bone, partial resection: - Acute osteomyelitis. at 1139. Clinical History Osteomyelitis right foot. Procedure performed: Right foot partial calcaneus resection. Gross Description RIGHT CALCANEAL BONE The specimen is received in a container labeled right calcaneal bone with the patient name. The specimen consists of a roughly oval fragment of hoyt and dull gomez bone which measures 4.8 x 2.6 x 1.1 cm. One aspect of the fragment is dull pink to gomez and focally softened. Sectioning reveals broad regions of dull gomez to nearly black discoloration, associated with marked softening. A technical service representative section is submitted in a single cassette as A1 for decalcification. Current Procedural Terminology [id number] Surgical Pathology Report Page 1 of 1
[2023-09-08 06:14] LABS: Hematocrit (blood only) 31.7 % (42.0-52.0); Hemoglobin 9.9 g/dl (14.0-18.0); Mean Corpuscular Hemoglobin 26.3 pg (25.0-34.0); Mean Corpuscular Hgb Conc 31.2 g/dL (32.0-36.0); Mean Corpuscular Volume 84.3 fL (80.0-100.0); Mean Platelet Volume 9.2 fL (9.4-12.4); Platelet Count 708 K/uL (130-400); RDW Coefficient of Variation 18.7 % (11.5-14.5); RDW Standard Deviation 57.4 fL (36.4-46.3); Red Blood Count 3.76 M/uL (4.70-6.10); White Blood Count 11.33 K/ul (4.8-10.8)
[2023-09-08 06:35] LABS: BUN Creatinine Ratio 20.9 (10-20); Calcium 9.1 mg/dl (8.6-10.3); Creatinine Clr Calc Pharmacy 34.2 ml/min; Est GFR (African American) 34.7 ml/min; Potassium 5.7 mmol/L (3.5-5.1)
[2023-09-08] MEDS: LANTUS PER UNIT CHARGE SQ SCH (08:50)
--- NOTE | 2023-09-08 09:15 | Nephrology Progress Note ---
Date of Service September 08, 2023 Assessment & Plan Admission and Anticipated Discharge Date Admission Date: August 25, 2023 Subjective Assessment & Plan (1) Hyperkalemia: Conitnue Lokelma 10 gm tid. Garfield and quicker acting for current Situation- inpt lasix 80 iv x 1 again Add torsemide 20 daily for outpt to Control K better Low K diet. Control blood glucose < 200. give insulin-lowers glucose also Continue Sodium Bicarb tabs Continue veltassa for outpt. If k less than 5.4 this Afternoon can be discharged. rpt BMP at 3 PM (2) Acute kidney injury superimposed on CKD: baseline creat about 2 and now is slightly higher given current situation of Infection/Surgery/Abx. No need of Iv fluid or further workup From underlying Diabetic nephropathy. he Sees nephrology in group home through telemed. Creat did go down a bit overnight.. (3) Osteomyelitis of ankle or foot, acute: On abx and S/p surgery S---No new issues. Feels fine. No edema. Physical Exam Constitutional: + well hydrated; no acute distress Eyes: PERRL, conjunctivae normal, anicteric sclerae ENMT: external ear and nose normal, oropharynx normal Respiratory: normal respiratory effort, lungs clear to auscultation Cardiovascular: Rate/Rhythm: regular rate and regular rhythm S1 S2 Gastrointestinal (Abdomen): soft, nontender Musculoskeletal: Right foot bandaged. No edema Neurologic: No focal deficit Psychiatric: A+Ox3, euthymic affect Results & Data Vital Signs (Past 12 Hours) Vital Signs Temp Pulse Pulse Resp BP Pulse Ox O2 Del Method 09/08/23 07:55 36.7 C 77 16 144/78 H 99 Room Air 09/08/23 06:58 73 09/08/23 03:02 36.6 C 75 18 154/84 H 98 Room Air 09/07/23 23:13 36.6 C 76 18 135/79 100 Room Air 09/07/23 23:00 71
[2023-09-08] MEDS: FUROSEMIDE 40 MG/4 ML VIAL IV ONE (09:42)
[2023-09-08] MEDS: TORSEMIDE 20 MG TAB PO SCH (09:42)
--- NOTE | 2023-09-08 10:18 | Pharmacy Report ---
Pharmacy Glycemic Short Note 2 - Date of Service September 08, 2023 - Glycemic Short BSG Results (Last 24 hours): 09/07/23 09/07/23 09/07/23 10:46 12:06 15:45 Glucose 47 L* POC Glucose 204 H 138 H 09/07/23 09/07/23 09/07/23 16:32 16:57 20:07 Glucose POC Glucose 40 L* 140 H 133 H 09/08/23 09/08/23 05:24 08:13 Glucose 211 H POC Glucose 199 H OUTPATIENT ANTIDIABETIC REGIMEN: * Lantus 14 units daily, regular insulin 2 units bid + SSI ASSESSMENT: * 58 year old currently admitted for bone/joint infection - managed on ertapenem. Pharmacy consulted for glycemic management, patient type 1 diabetic. Patient with low BSG yesterday evening at time of consult. Novolog parameters loosened. Patient known to glycemic service from other admissions, most recently last month. Plan to utilize parameters similar to last admission which resulted in stable blood sugars. PLAN FOR INPATIENT GLYCEMIC CONTROL: * Hold outpatient oral diabetes medications * Basal insulin * Lantus 12 units SQ daily * Bolus insulin * NovoLog per scale ACHS or Q6hrs while NPO * Goal Range: Low 120 mg/dL - High 150 mg/dL * Correction Factor: 40 mg/dL/unit * Nutritional / Prandial insulin per carb ratio of 1 unit per 20 grams CHO consumed
--- NOTE | 2023-09-08 11:07 | Hospitalist Progress Note ---
Date of Service September 08, 2023 Assessment & Plan (1) Osteomyelitis of ankle or foot, acute: (2) Acute kidney injury superimposed on CKD: (3) Diarrhea: (4) CRF (chronic renal failure): (5) Cellulitis of right foot: (6) Anemia: (7) HTN (hypertension): Plan 58 year old man with PMHx significant for DM type I, CKD stage III, diabetic neuropathy, HTN, hypothyroidism, chronic hyperkalemia, chronic anemia who presents to the ED from [facility] for worsening right foot wound. Denied fever, chills. History: 05/2023 polymicrobial right heel wound that was treated with ertapenem and amoxicillin. 06/2023-07/2023 diabetic ulcer of right foot, osteomyelitis s/p wound debridement and calcaneal ostectomy, with wound vac. Bone pathology sample + MRSA, GBS, VRE. ID had recommended daptomycin x 6 weeks. Leukocytosis present on admission MRI of foot shows worsening osteomyelitis of the calcaneal tuberosity ESR elevated to 90, CRP elevated to 19.1 Mg per DL on August 27, 2023 R calcaneus Osteomyelitis Status post I&D of right heel wound with partial excision calcaneus osteotomy on August 27, 2023 Culture, right foot 08/27- grew K pneumoniae, ESBL E coli, Proteus, Bacteroides and Prevotella, the first 3 all sensitive to Ertapenem. Blood [id number] growth to date IntraOp Gram stain negative ID consulted- appreciate recs -recommended switching from Daptomycin to Zosyn before cultures were finalized. -Zosyn switched to Invanz on 08/30 -ID recommending amputation, stating likely infection would not be able to be cured with antibiotics only. S/p further resection of calcaneus for attempted clear margins with some delayed closure on 09/02/23 Continue with Renato Bowen discussed with ID Dr Ellis on 09/04/23. ID strongly advising amputation. However, states that if IV antibiotics is needed for treatment continue with IV Invanz for 6 weeks. Pathology from 09/04/23 reviewed Patient had been declining amputation and Podiatry has been trying to salvage limb After discussion with patient today, he agreed to amputation Ortho consulted for evaluation for this Chronic hyperkalemia K: Around 4.5-5 on admission He was on daily Veltassa. However, he had been declining it for days, stating that it causes GI upset He only agreed to resume it yesterday Currently on low potassium diet K is 5.7 today Nephro recs noted Discussed with Nephro. Recommends po torsemide 20mg going forward Monitor K Diarrhea Diarrhea present upon arrival. Reported diarrhea x 2-3 days C. difficile negative Imodium as needed Diabetes mellitus type 1 On chronic insulin A1c: 6.8 on 07/20/2023 Continue basal bolus insulin Acute kidney injury superimposed on CKD3 Presented with creatinine of 2.75; baseline creatinine around 2.2 Improved with IV hydration Cr is 2.30 today Chronic anemia Hgb stable On Epogen weekly Continue folic acid, B12 Hypothyroidism Chronic Continue levothyroxine Depression Chronic, stable Continue fluoxetine, hydroxyzine Dyslipidemia Chronic On atorvastatin Chronic hyponatremia Sodium around 131-134 Monitor BMP DVT Prophylaxis: Heparin SQ CODE STATUS: Full Code Diet: DMI Dispo: From [facility], to return once stable CM confirmed [facility] I called [facility] and spoke with Provider electronics specialist Man Morrsi PA-C I updated her about patient and ortho recs regarding doing surgery outpatient next week and my plan to possibly discharge patient tomorrow and they can follow up with Ortho about surgery next week. She stated she will need to confirm with their Dr prior to dc Will await her call back I spent a total of 50 minutes coordinating, documenting and providing care for this patient excluding time spent in performance of separately billed services Admission and Anticipated Discharge Date Admission Date: August 25, 2023 Subjective Patient seen and examined Denied any new complaints No LE pains. Has neuropathy to knees Physical Exam Constitutional: + well hydrated; no acute distress Eyes: PERRL, conjunctivae normal, anicteric sclerae ENMT: external ear and nose normal, oropharynx normal Respiratory: normal respiratory effort, lungs clear to auscultation Cardiovascular: Rate/Rhythm: regular rate and regular rhythm S1 S2 Gastrointestinal (Abdomen): normal bowel sounds, soft, nontender, no hepatosplenomegaly Musculoskeletal: Right leg bandaged Neurologic: PERRL, EOMI, accommodation nl, no face palsy, no dysarthria Psychiatric: A+Ox3, euthymic affect Results & Data Results & Data Vital Signs (Past 12 Hours) Vital Signs Temp Pulse Pulse Resp BP Pulse Ox O2 Del Method 02/16/24 07:55 36.7 C 77 16 144/78 H 99 Room Air 09/08/23 06:58 73 09/08/23 03:02 36.6 C 75 18 154/84 H 98 Room Air 09/07/23 23:13 36.6 C 76 18 135/79 100 Room Air Laboratory Results Abnormal lab results 09/07/23 09/07/23 09/07/23 Range/Units 15:45 16:32 16:57 WBC (4.8-10.8) K/ul RBC (4.70-6.10) M/uL Hgb (14.0-18.0) g/dl Hct (42.0-52.0) % MCHC (32.0-36.0) g/dL RDW Std Deviation (36.4-46.3) fL RDW Coeff of Minnie (11.5-14.5) % Plt Count (130-400) K/uL MPV (9.4-12.4) fL Sodium (136-145) mmol/L Potassium 5.2 H (3.5-5.1) mmol/L BUN 47 H (6-23) mg/dl Creatinine 2.54 H (0.6-1.4) mg/dl BUN/Creatinine Ratio (10-20) Glucose 47 L* (70-99(Fasting)) mg/dl POC Glucose 40 L* 140 H (70-99) mg/dl Albumin 2.6 L (3.4-5.0) gm/dl 09/07/23 09/08/23 09/08/23 Range/Units 20:07 05:24 08:13 WBC 11.33 H (4.8-10.8) K/ul RBC 3.76 L (4.70-6.10) M/uL Hgb 9.9 L (14.0-18.0) g/dl Hct 31.7 L (42.0-52.0) % MCHC 31.2 L (32.0-36.0) g/dL RDW Std Deviation 57.4 H (36.4-46.3) fL RDW Coeff of Minnie 18.7 H (11.5-14.5) % Plt Count 708 H (130-400) K/uL MPV 9.2 L (9.4-12.4) fL Sodium 134 L (136-145) mmol/L Potassium 5.7 H (3.5-5.1) mmol/L BUN 48 H (6-23) mg/dl Creatinine 2.30 H (0.6-1.4) mg/dl BUN/Creatinine Ratio 20.9 H (10-20) Glucose 211 H (70-99(Fasting)) mg/dl POC Glucose 133 H 199 H (70-99) mg/dl Albumin (3.4-5.0) gm/dl 09/08/23 Range/Units 12:09 WBC (4.8-10.8) K/ul RBC (4.70-6.10) M/uL Hgb (14.0-18.0) g/dl Hct (42.0-52.0) % MCHC (32.0-36.0) g/dL RDW Std Deviation (36.4-46.3) fL RDW Coeff of Minnie (11.5-14.5) % Plt Count (130-400) K/uL MPV (9.4-12.4) fL Sodium (136-145) mmol/L Potassium (3.5-5.1) mmol/L BUN (6-23) mg/dl Creatinine (0.6-1.4) mg/dl BUN/Creatinine Ratio (10-20) Glucose (70-99(Fasting)) mg/dl POC Glucose 176 H (70-99) mg/dl Albumin (3.4-5.0) gm/dl (4) CRF (chronic renal failure) Chronic kidney disease stage: unspecified stage Qualified Code(s): N18.9 - Chronic kidney disease, unspecified (6) Anemia Anemia type: unspecified type Qualified Code(s): D64.9 - Anemia, unspecified
--- NOTE | 2023-09-08 12:24 | Orthopedic Consultation ---
Date of Consultation September 08, 2023 Assessment & Plan (1) Osteomyelitis of ankle or foot, acute: Patient would like to proceed with below knee amputation. Consent form was filled out and Dr. Tomas will discuss it with him. Patient is not septic. Surgical invention can be done electively. Supervising Physician Co-Signing Physician Notes I saw and examined the patient this morning. Agree with the above note. He has calcaneal osteomyelitis which is failed local treatment. Below-knee amputation is indicated to eradicate the infection. I reviewed the risks and benefits of below-knee amputation. These include failure of the stump to heal as well as difficulty ambulating including falls. After reviewing all of his options he elects to proceed. Surgical site was marked. Plan on doing the surgery tomorrow. He should be n.p.o. after midnight tonight. Spoke with his hospitalist who will optimize him for surgery tomorrow. History of Present Illness Reason for Consultation: Eval / Discussion for Right below the knee amputation Requesting Physician: Castro Tomas MD Attending Physician: Nichol Robles MD History of Present Illness This 58-year-old male inmate seen in consultation for right foot osteomyelitis and discussion of below the knee amputation. Patient has been hospitalized since early August and was being followed by Dr. Stout for diabetic ulcerations and Charcot foot. Patient had a few procedures performed by Dr. Stout without eradication of the diseased bone. Patient has been seen by infectious disease as well, has a PICC line in and is currently receiving daptomycin and piperacillin. Patient is also being followed by nephrology due to his chronic kidney disease. Currently he denies chest pain, shortness of breath, fever, chills, sweats. He states he has severe neuropathy in the right lower extremity and is unable to feel anything below his mid calf. He states that he has been diabetic for over 30 years with poor control. He states that he has never had ulcerations to the right foot previously but has not had them in the left foot. Patient does wish to proceed with surgical intervention which includes a right below the knee amputation. Allergies Allergy/AdvReac Type Severity Reaction Status Date / Time sodium chloride AdvReac Unknown CONTRAINDIC Verified 07/19/23 15:29 [From [facility] Nasal] ATED. Home Medications Medication Instructions Recorded Confirmed Type alendronate 70 mg tablet 70 mg PO WK 03/05/22 08/25/23 History aspirin 81 mg tablet,delayed 81 mg PO QAM 03/05/22 08/25/23 History release ergocalciferol (vitamin D2) 50 mcg 50 mcg PO WK 03/05/22 08/25/23 History (2,000 unit) capsule fluoxetine 20 mg capsule 40 mg PO QAM 03/05/22 08/25/23 History hydroxyzine pamoate 50 mg capsule 50 mg PO HS 03/05/22 08/25/23 History insulin regular human 100 unit/mL 2 unit subcut BID 03/05/22 08/25/23 History injection solution (Novolin R Regular U-100 Insulin) levothyroxine 150 mcg tablet 150 mcg PO DAILYBB 03/05/22 08/25/23 History metoclopramide HCl 10 mg tablet 10 mg PO ACHS 03/05/22 08/25/23 History ondansetron 8 mg disintegrating 8 mg PO .EVERY 8 HOURS 03/05/22 08/25/23 History tablet pantoprazole 40 mg tablet,delayed 40 mg PO BID 03/05/22 08/25/23 History release patiromer calcium sorbitex 25.2 25.2 g PO QPM 03/05/22 08/25/23 History gram oral powder packet (Veltassa) tamsulosin 0.4 mg capsule 0.4 mg PO HS 03/05/22 08/25/23 History vitamin B complex with C-folic 1 tab PO DAILY 03/05/22 08/25/23 History acid 0.8 mg-zinc citrate 50 mg tablet (Dialyvite 800 with Zinc 50) folic acid 1 mg tablet 1 mg PO QAM #30 tabs 03/06/22 08/25/23 Rx epoetin sanchez 10,000 unit/mL 10,000 unit subcut WK 11/21/22 08/25/23 History injection solution (Epogen) ascorbic acid (vitamin C) 500 mg 500 mg PO QAM 12/14/22 08/25/23 History tablet (Vitamin C) atorvastatin 40 mg tablet 40 mg PO HS 12/14/22 08/25/23 History insulin regular human 100 unit/mL 1 sliding scale dose subcut 12/14/22 08/25/23 History injection solution (Novolin R USEASDIRECTD PRN Hyperglycemia Regular U-100 Insulin) sodium bicarbonate 650 mg tablet 650 mg PO BID 12/14/22 08/25/23 History insulin glargine 100 unit/mL 14 unit subcut DAILY 05/19/23 08/25/23 History subcutaneous solution acetaminophen 500 mg tablet 1,000 mg PO TID 07/19/23 08/25/23 History (Tylenol Extra Strength) loperamide 2 mg capsule (Imodium 4 mg PO BID PRN LOOSE STOOLS 07/19/23 08/25/23 History A-D) Daptomycin 750mg/Ns 750 mg IV DAILY 08/25/23 08/25/23 History Lactobacillus acidoph-L.bulgaricus 1 tab PO TIDM 08/25/23 08/25/23 History 1 million cell tablet (Floranex) cyanocobalamin (vitamin B-12) 100 100 mcg PO DAILY 08/25/23 08/25/23 History mcg tablet (Vitamin B-12) dextrose 40 % oral gel (Glutose-15) 1 ea PO DAILY PRN Hypoglycemia 08/25/23 08/25/23 History glucagon 1 mg solution for 0 mg subcut UD PRN low blood sugar 08/25/23 08/25/23 History injection (Glucagon Emergency Kit) Patient History Medical History Encounter for pre-operative examination HTN (hypertension) Osteomyelitis of ankle CKD (chronic kidney disease), stage III Diabetic ulcer of left ankle Diabetic neuropathy Chronic nausea Chronic hyperkalemia Chronic anemia Chronic hyponatremia CKD (chronic kidney disease) Psoriasis Orthostatic hypotension on chronic fludrocortisone Proteinuria NSTEMI (non-ST elevated myocardial infarction) Diabetes mellitus type 1 Non-STEMI (non-ST elevated myocardial infarction) Hypothyroidism Surgical History Status post right foot surgery Family History Other Heart disease Social History Smoking Status: Never smoker Tobacco Type: Cigarettes Second Hand Exposure: No; Hx Alcohol Use: No Hx Substance Use: No Preferred Language: Macedonian Communication Ability: Effective Visual Impairment: No Limitations Psychiatric Np Required: No Beliefs That Will Affect Care: None Current Living Situation: Other Current Living Situation Comment: intermediate Other Information That Helps Us Care for You: No Feels Safe at Home: Yes Safety Concerns: Feels Safe At This Time Assistive Devices: Wheelchair Review of Systems Review of Systems: All systems reviewed & are unremarkable except as noted in Subjective Physical Exam Physical Exam: Right lower extremity: Patient has dressings in place on the right foot. They were removed. He has 2 necrotic areas on the plantar surface of the foot near the heel there is also sutures in place from his previous surgical procedure. Patient is able to detect light sensation to touch over the plantar surface of the foot or base of the toes. He has visible show code deformity. There is no active drainage from the incision sites. I was unable to his dorsalis pedis or posterior tibial pulses. Palpate he was unable to feel me palpate from his mid calf distally. He was able to slightly move his foot medially and laterally but is unable to dorsi or plantarflex due to the Charcot deformity. Results & Data Vital Signs (Past 12 Hours) Vital Signs Temp Pulse Pulse Resp BP Pulse Ox O2 Del Method 09/08/23 11:42 36.6 C 73 20 101/61 98 Room Air 09/08/23 07:55 36.7 C 77 16 144/78 H 99 Room Air 09/08/23 06:58 73 09/08/23 03:02 36.6 C 75 18 154/84 H 98 Room Air Diagnostic Findings Laboratory Results WBC 11.33 K/ul (4.8-10.8) H 09/08/23 05:24 RBC 3.76 M/uL (4.70-6.10) L 09/08/23 05:24 Hgb 9.9 g/dl (14.0-18.0) L 09/08/23 05:24 Hct 31.7 % (42.0-52.0) L 09/08/23 05:24 MCV 84.3 fL (80.0-100.0) 09/08/23 05:24 MCH 26.3 pg (25.0-34.0) 09/08/23 05:24 MCHC 31.2 g/dL (32.0-36.0) L 09/08/23 05:24 RDW Std Deviation 57.4 fL (36.4-46.3) H 09/08/23 05:24 RDW Coeff of Minnie 18.7 % (11.5-14.5) H 09/08/23 05:24 Plt Count 708 K/uL (130-400) H 09/08/23 05:24 MPV 9.2 fL (9.4-12.4) L 09/08/23 05:24 Immature Gran % (Auto) 1.0 % 09/06/23 05:33 Neut % (Auto) 70.5 % 09/06/23 05:33 Lymph % (Auto) 15.9 % 09/06/23 05:33 Scott % (Auto) 7.8 % 09/06/23 05:33 Eos % (Auto) 3.8 % 09/06/23 05:33 Baso % (Auto) 1.0 % 09/06/23 05:33 Neut # (Auto) 8.69 K/uL (1.40-6.50) H 09/06/23 05:33 Lymph # (Auto) 1.96 K/uL (1.20-3.40) 09/06/23 05:33 Scott # (Auto) 0.96 K/uL (0.11-0.59) H 09/06/23 05:33 Eos # (Auto) 0.47 K/uL (0.00-0.50) 09/06/23 05:33 Baso # (Auto) 0.12 K/uL (0.00-0.20) 09/06/23 05:33 Immature Gran # (Auto) 0.12 K/uL (0.01-0.20) 09/06/23 05:33 Polychromasia 1+ 08/29/23 03:00 Echinocytes 1+ 08/29/23 03:00 ESR 90 mm/hr (0-20) H 08/27/23 06:59 Sodium 134 mmol/L (136-145) L 09/08/23 05:24 Potassium 5.7 mmol/L (3.5-5.1) H 09/08/23 05:24 Chloride 104 mmol/L (98-107) 09/08/23 05:24 Carbon Dioxide 22 mmol/L (21-32) 09/08/23 05:24 Anion Gap 8 (3-11) 09/08/23 05:24 BUN 48 mg/dl (6-23) H 02/16/24 05:24 Creatinine 2.30 mg/dl (0.6-1.4) H 09/08/23 05:24 Est Cr Clr Drug Dosing 34.2 ml/min 09/08/23 05:24 Est GFR ( Amer) 34.7 ml/min 09/08/23 05:24 Est GFR (Non-Af Amer) 30.0 ml/min 09/08/23 05:24 BUN/Creatinine Ratio 20.9 (10-20) H 09/08/23 05:24 Glucose 211 mg/dl (70-99(Fasting)) H 09/08/23 05:24 POC Glucose 176 mg/dl (70-99) H 09/08/23 12:09 Estimat Average Glucose 160 mg/dl 09/04/23 04:53 Hemoglobin A1c 7.2 % (4.5-5.6) H 09/04/23 04:53 Lactate 1.2 mmol/L (0.4-2.0) 08/25/23 15:56 Calcium 9.1 mg/dl (8.6-10.3) 09/08/23 05:24 Phosphorus 3.2 mg/dl (2.5-4.9) 09/07/23 15:45 Magnesium 1.9 mg/dl (1.7-2.4) 09/06/23 05:33 Total Bilirubin 0.2 mg/dl (0.2-1.0) 09/06/23 05:33 Direct Bilirubin 0.1 mg/dl (0-0.2) 08/25/23 15:56 AST 17 U/L (13-39) 09/06/23 05:33 ALT 21 U/L (7-52) 09/06/23 05:33 Alkaline Phosphatase 84 U/L (34-104) 09/06/23 05:33 C-Reactive Protein 19.15 mg/dl (0-0.5) H 08/27/23 06:59 Total Protein 6.3 gm/dl (6.0-8.3) 09/06/23 05:33 Albumin 2.6 gm/dl (3.4-5.0) L 09/07/23 15:45 Globulin 3.7 gm/dl (2.5-4.0) 09/06/23 05:33 Albumin/Globulin Ratio 0.7 (0.9-2) L 09/06/23 05:33 Procalcitonin 0.62 ng/ml (0-0.5) H 08/25/23 15:56 Urine Color Dark Yellow 08/25/23 23:00 Urine Appearance Clear (Clear) 08/25/23 23:00 Urine pH 5.5 (4.5-7.5) 08/25/23 23:00 Ur Specific Adrian 1.019 (1.000-1.030) 08/25/23 23:00 Urine Protein 2+ (Negative) H 08/25/23 23:00 Urine Glucose (UA) Negative (Negative) 08/25/23 23:00 Urine Ketones Trace (Negative) H 08/25/23 23:00 Urine Blood 1+ (Negative) H 08/25/23 23:00 Urine Nitrite Negative (Negative) 08/25/23 23:00 Urine Bilirubin Negative (Negative) 08/25/23 23:00 Urine Urobilinogen Negative (Negative) 08/25/23 23:00 Ur Leukocyte Esterase Negative (Negative) 08/25/23 23:00 Urine WBC (Auto) 1-5 /hpf (0-5) 08/25/23 23:00 Urine RBC (Auto) 0-4 /hpf (0-4) 08/25/23 23:00 U Hyaline Cast (Auto) 0 /lpf (0-5) 08/25/23 23:00 U Epithel Cells (Auto) 0-5 /lpf (0-5) 08/25/23 23:00 Urine Bacteria (Auto) Negative (Negative) 08/25/23 23:00 Stl C. cayetanensis PCR Not Detected (NotDetected) 08/28/23 16:35 Stool Rotavirus A PCR Not Detected (NotDetected) 08/28/23 16:35 Stl Adenov F 40/41 PCR Not Detected (NotDetected) 08/28/23 16:35 Stool Astrovirus (PCR) Not Detected (NotDetected) 08/28/23 16:35 Stool Campylobacter PCR Not Detected (NotDetected) 08/28/23 16:35 Stl C. diff Tox B Gene Negative Cdiff Gene (Neg) 08/28/23 Unknown Stool Cryptosporidium PCR Not Detected (NotDetected) 08/28/23 16:35 Stl E.coli Shiga Tox PCR Not Detected (NotDetected) 08/28/23 16:35 Stl Enterotoxigenic E PCR Not Detected (NotDetected) 08/28/23 16:35 Stool EPEC (PCR) Not Detected (NotDetected) 08/28/23 16:35 Stool EAEC (PCR) Not Detected (NotDetected) 08/28/23 16:35 Stl E. histolytica PCR Not Detected (NotDetected) 08/28/23 16:35 Stool Giardia Lamblia PCR Not Detected (NotDetected) 08/28/23 16:35 Stool Salmonella PCR Not Detected (NotDetected) 08/28/23 16:35 Stool Sapovirus (PCR) Not Detected (NotDetected) 08/28/23 16:35 Stl P. shigelloides PCR Not Detected (NotDetected) 08/28/23 16:35 Stl Shigella/EIEC PCR Not Detected (NotDetected) 08/28/23 16:35 St Y.enterocolitica PCR Not Detected (NotDetected) 08/28/23 16:35 Stool Vibrio (PCR) Not Detected (NotDetected) 08/28/23 16:35 Stl Vibrio cholerae PCR Not Detected (NotDetected) 08/28/23 16:35 Stl Norovirus GI/GII PCR Not Detected (NotDetected) 08/28/23 16:35 Impressions Foot X-Ray 08/25/23 15:23 RIGHT FOOT 3 VIEWS CLINICAL HISTORY: Right foot pain. Infection. FINDINGS: 3 views of the right foot are correlated with CT scan of the right foot dated 07/19/2023. The skeletal structures are osteopenic. No acute fracture is seen. There is a rocker-bottom deformity. Extensive postsurgical change and fusion is seen throughout the midfoot. A cortical lag screw and buttress plate transfixes the first tarsometatarsal articulations. Cortical lag screws also transfix the second through fifth tarsometatarsal articulations. Mild osteoarthritic changes seen involving the metatarsophalangeal and interphalangeal joints. There is a large dorsal soft tissue heel ulcer/wound. This appears to extend to the bony cortex of the dorsal calcaneus. Overlying bandage material significantly obscures the bony cortex. Soft tissue edema throughout the hindfoot likely represents cellulitis. No soft tissue gas is seen. There is advanced atherosclerotic calcification of the regional arteries. IMPRESSION: 1. Large dorsal heel ulcer/wound which appears to reach the calcaneal cortex. The underlying cortex is not well assessed due to overlying bandage material. Correlate with direct visualization. 2. No fracture is seen. 3. Extensive postsurgical change and deformity is seen throughout the right foot as above. 4. Soft tissue edema of the hindfoot likely represents cellulitis. Correlate clinically. Dictated: 08/25/2023 3:52 PM Transcribed: 08/25/2023 4:08 PM Nikki [id number] YANET_Marvin [id number] Electronically signed by: Kendall Pardo M.D. 08/25/2023 5:03 PM Ankle MRI 08/25/23 19:26 Exam(s): MRI RIGHT ANKLE Without Contrast EXAM: MR Right Lower Extremity Without Intravenous Contrast, Ankle CLINICAL HISTORY: Reason for exam: r/o osteomyelitis Calcaneus. TECHNIQUE: Multiplanar magnetic resonance images of the right ankle without intravenous contrast. COMPARISON: MR right ankle 07/20/23 FINDINGS: Region of soft tissue ulceration over the calcaneal tuberosity appears increased from prior exam. There is more extensive T2 hyperintense, T1 hypointense marrow signal abnormality within the calcaneal tuberosity concerning for worsening osteomyelitis. No additional foci of osteomyelitis are demonstrated. There is persistent anterior subluxation of the talus with respect to the tibia, associated with small tibiotalar joint effusion. Hardware is noted within the midfoot and forefoot. IMPRESSION: Worsening osteomyelitis of the calcaneal tuberosity. Electronically signed by: Jorden Griffith M.D. 08/25/23 23:20 PM
[2023-09-08] MEDS: CARBOHYDRATES FOR HYPOGLYCEMIA PO PRN (20:14)
--- NOTE | 2023-09-09 08:20 | Anesthesiology Consultation ---
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 History Surgery Operation Date: 08/26/23 10:30 Proposed Procedures p right partial excision calcaneous osteotomy(Right) - Celestino Stout DPM, MS Operation Date: 08/27/23 07:30 Proposed Procedures p Incision and Drainage Extremity(Right) - Celestino Stout DPM, MS Operation Date: 09/02/23 07:30 Proposed Procedures p Right Foot Partial Calcaneus Resection, Delayed Primary Closure - Celestino Stout DPM, MS Operation Date: 09/10/23 09:00 Proposed Procedures p Amputation Leg(Right) - Castro Tomas MD Height/Weight Height: 6 ft Weight: 69.6 kg Allergies Allergy/AdvReac Type Severity Reaction Status Date / Time sodium chloride AdvReac Unknown CONTRAINDIC Verified 07/19/23 15:29 [From [place] Nasal] ATED. Medications Home Medications Medication Instructions Recorded Confirmed Last Taken alendronate 70 mg tablet 70 mg PO WK 03/05/22 08/25/23 07/18/23 aspirin 81 mg tablet,delayed 81 mg PO QAM 03/05/22 08/25/23 08/25/23 release ergocalciferol (vitamin D2) 50 mcg 50 mcg PO WK 03/05/22 08/25/23 08/24/23 (2,000 unit) capsule fluoxetine 20 mg capsule 40 mg PO QAM 03/05/22 08/25/23 08/25/23 hydroxyzine pamoate 50 mg capsule 50 mg PO HS 03/05/22 08/25/23 08/24/23 insulin regular human 100 unit/mL 2 unit subcut BID 03/05/22 08/25/23 08/25/23 injection solution (Novolin R Regular U-100 Insulin) levothyroxine 150 mcg tablet 150 mcg PO DAILYBB 03/05/22 08/25/23 08/25/23 metoclopramide HCl 10 mg tablet 10 mg PO ACHS 03/05/22 08/25/23 08/25/23 ondansetron 8 mg disintegrating 8 mg PO .EVERY 8 HOURS 03/05/22 08/25/23 08/25/23 tablet pantoprazole 40 mg tablet,delayed 40 mg PO BID 03/05/22 08/25/23 08/25/23 release patiromer calcium sorbitex 25.2 25.2 g PO QPM 03/05/22 08/25/23 07/18/23 gram oral powder packet (Veltassa) tamsulosin 0.4 mg capsule 0.4 mg PO HS 03/05/22 08/25/23 08/24/23 vitamin B complex with C-folic 1 tab PO DAILY 03/05/22 08/25/23 08/25/23 acid 0.8 mg-zinc citrate 50 mg tablet (Dialyvite 800 with Zinc 50) folic acid 1 mg tablet 1 mg PO QAM #30 tabs 03/06/22 08/25/23 08/25/23 epoetin sanchez 10,000 unit/mL 10,000 unit subcut WK 11/21/22 08/25/23 08/25/23 injection solution (Epogen) ascorbic acid (vitamin C) 500 mg 500 mg PO QAM 12/14/22 08/25/23 08/25/23 tablet (Vitamin C) atorvastatin 40 mg tablet 40 mg PO HS 12/14/22 08/25/23 08/24/23 insulin regular human 100 unit/mL 1 sliding scale dose subcut 12/14/22 08/25/23 05/19/23 injection solution (Novolin R USEASDIRECTD PRN Hyperglycemia Regular U-100 Insulin) sodium bicarbonate 650 mg tablet 650 mg PO BID 12/14/22 08/25/23 08/25/23 insulin glargine 100 unit/mL 14 unit subcut DAILY 05/19/23 08/25/23 08/25/23 subcutaneous solution acetaminophen 500 mg tablet 1,000 mg PO TID 07/19/23 08/25/23 08/25/23 (Tylenol Extra Strength) loperamide 2 mg capsule (Imodium 4 mg PO BID PRN LOOSE STOOLS 07/19/23 08/25/23 07/18/23 10:53 A-D) Daptomycin 750mg/Ns 750 mg IV DAILY 08/25/23 08/25/23 08/24/23 Lactobacillus acidoph-L.bulgaricus 1 tab PO TIDM 08/25/23 08/25/23 Unknown 1 million cell tablet (Floranex) cyanocobalamin (vitamin B-12) 100 100 mcg PO DAILY 08/25/23 08/25/23 08/25/23 mcg tablet (Vitamin B-12) dextrose 40 % oral gel (Glutose-15) 1 ea PO DAILY PRN Hypoglycemia 08/25/23 08/25/23 08/04/23 glucagon 1 mg solution for 0 mg subcut UD PRN low blood sugar 08/25/23 08/25/23 08/13/23 injection (Glucagon Emergency Kit) Active Medications Generic Name Dose Route Start Last Admin Trade Name Freq PRN Reason Stop Dose Admin Acetaminophen 1,000 mg 08/25/23 22:00 09/08/23 21:07 Acetaminophen 500 Mg Tab PO 09/24/23 21:59 1,000 mg TID MARY Administration Ascorbic Acid 500 mg 08/26/23 09:00 09/08/23 07:46 Ascorbic Acid 500 Mg Tab PO 09/25/23 08:59 500 mg QAM MARY Administration Atorvastatin Calcium 40 mg 09/01/23 21:00 09/08/23 21:02 Atorvastatin 40 Mg Tab PO 10/01/23 20:59 40 mg HS MARY Administration Cyanocobalamin 100 mcg 08/26/23 09:00 09/08/23 07:44 Cyanocobalamin (B-12) 100 Mcg Tablet PO 09/25/23 08:59 100 mcg DAILY MARY Administration Dextrose 25 - 50 ml 09/04/23 05:52 09/07/23 16:32 Dextrose 50% 50 Ml Syringe IV 10/04/23 05:51 50 ml UD PRN Administration Hypoglycemia Protocol Protocol Fluoxetine HCl 40 mg 08/26/23 09:00 09/08/23 07:46 Fluoxetine Hcl 20 Mg Cap PO 09/25/23 08:59 40 mg QAM MARY Administration Folic Acid 1 mg 08/26/23 09:00 09/08/23 07:45 Folic Acid 1 Mg Tab PO 09/25/23 08:59 1 mg QAM MARY Administration Heparin Sodium (Beef Lung) 5 ml 09/02/23 10:44 09/03/23 08:25 Heparin 10 Unit/Ml 5 Ml Flush FLUSH 10/02/23 10:43 5 ml PRN PRN Administration Flush Heparin Sodium (Porcine) 5,000 units 08/28/23 09:00 09/09/23 05:49 Heparin Sod 5,000 Unit/0.5 Ml Vial SQ 09/27/23 08:59 5,000 units Q8 MARY Administration Hydroxyzine HCl 50 mg 08/25/23 22:00 09/08/23 21:05 Hydroxyzine Hcl 25 Mg Tab PO 09/24/23 21:59 50 mg HS MARY Administration Ertapenem 1,000 mg/ Syringe 10 mls @ 2 mls/min 08/30/23 09:00 09/08/23 08:00 IV 10/11/23 08:59 2 mls/min Q24H MARY Administration Protocol Insulin Aspart 0 units 09/04/23 05:55 09/08/23 20:38 Insulin Aspart Per Unit Charge SC 10/04/23 05:54 Not Given ACHS MARY Insulin Glargine 12 units 09/08/23 09:00 09/08/23 08:50 Lantus Per Unit Charge SQ 10/08/23 08:59 12 units DAILY MARY Administration Levothyroxine Sodium 150 mcg 08/26/23 06:30 09/09/23 05:47 Levothyroxine Sodium 150 Mcg Tablet PO 09/25/23 06:29 150 mcg DAILYBB MARY Administration Loperamide HCl 2 mg 08/29/23 07:57 09/02/23 13:20 Loperamide Hcl 2 Mg Cap PO 09/28/23 07:56 2 mg Q6H PRN Administration Diarrhea Magnesium Oxide 400 mg 09/02/23 09:45 09/08/23 21:03 Magnesium Oxide 400 Mg Tab PO 10/02/23 09:44 400 mg BID MARY Administration Metoclopramide HCl 10 mg 08/25/23 22:00 09/08/23 21:01 Metoclopramide Hcl 10 Mg Tablet PO 09/24/23 21:59 10 mg ACHS MARY Administration Miscellaneous 15 - 30 gm 09/04/23 05:52 09/08/23 20:14 Carbohydrates For Hypoglycemia PO 10/04/23 05:51 15 gm UD PRN Administration Hypoglycemia Protocol Pantoprazole Sodium 40 mg 08/25/23 22:00 09/08/23 21:05 Pantoprazole 40 Mg Tab PO 09/24/23 21:59 40 mg BID MARY Administration Sodium Bicarbonate 650 mg 09/04/23 05:55 09/08/23 21:04 Sodium Bicarbonate 650 Mg Tab PO 10/04/23 05:54 650 mg BID MARY Administration Tamsulosin HCl 0.4 mg 08/25/23 22:00 02/16/24 21:02 Tamsulosin Hcl 0.4 Mg Cap PO 09/24/23 21:59 0.4 mg HS MARY Administration Torsemide 20 mg 09/08/23 09:15 09/08/23 09:42 Torsemide 20 Mg Tab PO 10/08/23 09:14 20 mg QAM MARY Administration Vitamin B Complex/Folic Acid 1 cap 08/26/23 09:00 09/08/23 07:45 Nephrocaps PO 09/25/23 08:59 1 cap DAILY MARY Administration Vitamin D 50 mcg 08/31/23 09:00 09/07/23 08:11 Cholecalciferol 25 Mcg (1000 Units) Tab PO 09/30/23 08:59 50 mcg Th@0900 MARY Administration NPO Date Last Intake of Fluids: 08/26/23 Time Last Intake of Fluids: 22:00 Date Last Intake of Solids: 08/26/23 Time Last Intake of Solids: 18:00 Past Medical History Medical History Encounter for pre-operative examination HTN (hypertension) Osteomyelitis of ankle CKD (chronic kidney disease), stage III Diabetic ulcer of left ankle Diabetic neuropathy Chronic nausea Chronic hyperkalemia Chronic anemia Chronic hyponatremia CKD (chronic kidney disease) Psoriasis Orthostatic hypotension on chronic fludrocortisone Proteinuria NSTEMI (non-ST elevated myocardial infarction) Diabetes mellitus type 1 Non-STEMI (non-ST elevated myocardial infarction) Hypothyroidism Past Family History Family History Other Heart disease Past Surgical History Surgical History Status post right foot surgery Social History Smoking Status: Never smoker tobacco type: cigarettes Hx Alcohol Use: No Hx Substance Use: No substance use type: does not use Physical Exam Vital Signs Last Vital Signs Temp 98.2 F 09/09/23 07:29 Pulse 73 09/09/23 07:41 Resp 18 09/09/23 07:29 BP 137/80 09/09/23 07:29 Pulse Ox 98 09/09/23 07:29 O2 Del Method Room Air 09/09/23 07:29 Testing Laboratory Results 09/08/23 05:24 09/08/23 16:24 Hemoglobin A1c 7.2 % (4.5-5.6) H 09/04/23 04:53 Urine Color Dark Yellow 08/25/23 23:00 Urine Appearance Clear (Clear) 08/25/23 23:00 Urine pH 5.5 (4.5-7.5) 08/25/23 23:00 Ur Specific Orange 1.019 (1.000-1.030) 08/25/23 23:00 Urine Protein 2+ (Negative) H 08/25/23 23:00 Urine Glucose (UA) Negative (Negative) 08/25/23 23:00 Urine Ketones Trace (Negative) H 08/25/23 23:00 Urine Nitrite Negative (Negative) 08/25/23 23:00 Ur Leukocyte Esterase Negative (Negative) 08/25/23 23:00 Urine WBC (Auto) 1-5 /hpf (0-5) 08/25/23 23:00 Urine RBC (Auto) 0-4 /hpf (0-4) 08/25/23 23:00 U Hyaline Cast (Auto) 0 /lpf (0-5) 08/25/23 23:00 U Epithel Cells (Auto) 0-5 /lpf (0-5) 08/25/23 23:00 Urine Bacteria (Auto) Negative (Negative) 08/25/23 23:00 08/27/23 08:23 Gram Stain - Final Foot,Right Aerobic and Anaerobic Culture - Final Klebsiella pneumoniae Escherichia coli ESBL Proteus mirabilis Bacteroides vulgatus Prevotella bivia 08/25/23 16:20 Aerobic Blood Culture - Final Blood No growth in Aerobic bottle after 5 days. Anaerobic Blood Culture - Final No growth in Anaerobic bottle after 5 days. 08/25/23 15:56 Aerobic Blood Culture - Final Blood No growth in Aerobic bottle after 5 days. Anaerobic Blood Culture - Final No growth in Anaerobic bottle after 5 days. 09/09/23 09/08/23 08:14 20:32 POC Glucose 210 H 72 Electrocardiogram Date: 08/25/23 Findings: + NSR @ (@ 97;Lateral infarct,age ?;ST & T wave abnl) Chest X-Ray Date: 07/27/23 Findings: + NAD and + other (PICC line ends in SVC) Echocardiogram Date: 06/30/20 EF: 55% LV Function: normal RWMA: + none Other Findings: + LVH (mild) and + diastolic dysfunction (Grade 2) Valvular Disease: + no significant valvular disease
[2023-09-09] MEDS ORDERED: LANTUS PER UNIT CHARGE SQ SCH (09:00)
[2023-09-09] MEDS: LANTUS PER UNIT CHARGE SQ SCH (09:32)
[2023-09-09 09:59] LABS: Hematocrit (blood only) 30.2 % (42.0-52.0); Hemoglobin 9.8 g/dl (14.0-18.0); Mean Corpuscular Hemoglobin 26.7 pg (25.0-34.0); Mean Corpuscular Hgb Conc 32.5 g/dL (32.0-36.0); Mean Corpuscular Volume 82.3 fL (80.0-100.0); Mean Platelet Volume 9.4 fL (9.4-12.4); Platelet Count 700 K/uL (130-400); RDW Coefficient of Variation 19.3 % (11.5-14.5); RDW Standard Deviation 57.7 fL (36.4-46.3); Red Blood Count 3.67 M/uL (4.70-6.10); White Blood Count 11.23 K/ul (4.8-10.8)
[2023-09-09 10:18] LABS: BUN Creatinine Ratio 22.9 (10-20); Calcium 8.8 mg/dl (8.6-10.3); Creatinine Clr Calc Pharmacy 30.3 ml/min; Est GFR (African American) 30.2 ml/min; Est GFR (Non-African American) 26.1 ml/min; Potassium 5.6 mmol/L (3.5-5.1)
--- NOTE | 2023-09-09 11:52 | Hospitalist Progress Note ---
Date of Service September 09, 2023 Assessment & Plan (1) Osteomyelitis of ankle or foot, acute: (2) Acute kidney injury superimposed on CKD: (3) Diarrhea: (4) CRF (chronic renal failure): (5) Cellulitis of right foot: (6) Anemia: (7) HTN (hypertension): Plan 58 year old man with PMHx significant for DM type I, CKD stage III, diabetic neuropathy, HTN, hypothyroidism, chronic hyperkalemia, chronic anemia who presents to the ED from [facility] for worsening right foot wound. Denied fever, chills. History: 05/2023 polymicrobial right heel wound that was treated with ertapenem and amoxicillin. 06/2023-07/2023 diabetic ulcer of right foot, osteomyelitis s/p wound debridement and calcaneal ostectomy, with wound vac. Bone pathology sample + MRSA, GBS, VRE. ID had recommended daptomycin x 6 weeks. Leukocytosis present on admission MRI of foot shows worsening osteomyelitis of the calcaneal tuberosity ESR elevated to 90, CRP elevated to 19.1 Mg per DL on August 27, 2023 R calcaneus Osteomyelitis Status post I&D of right heel wound with partial excision calcaneus osteotomy on August 27, 2023 Culture, right foot 08/27- grew K pneumoniae, ESBL E coli, Proteus, Bacteroides and Prevotella, the first 3 all sensitive to Ertapenem. Blood [id number] growth to date IntraOp Gram stain negative ID consulted- appreciate recs -recommended switching from Daptomycin to Zosyn before cultures were finalized. -Zosyn switched to Invanz on 08/30 -ID recommended amputation, stating likely infection would not be able to be cured with antibiotics only. S/p further resection of calcaneus for attempted clear margins with some delayed closure on 09/02/23 Currently on IV ertapenem Dr Bowen discussed with ID Dr Ellis on 09/04/23. ID strongly advising amputation. However, states that if IV antibiotics is needed for treatment continue with IV Invanz for 6 weeks. Pathology from 09/04/23 reviewed Patient was initially declining amputation and Podiatry has been trying to salvage limb He agreed to amputation on 09/08/23 Discussed with Ortho surgeon today. Plan for OR for Rt BKA tomorrow Keep NPO PMN Chronic hyperkalemia K: Around 4.5-5 on admission He was on daily Veltassa. However, he had been declining it for days, stating that it causes GI upset He only agreed to resume it yesterday Currently on low potassium diet K is 5.6 today Nephro recs noted Discussed with Nephro. Recommends po torsemide 20mg going forward Monitor K Diarrhea Diarrhea present upon arrival. Reported diarrhea x 2-3 days C. difficile negative Imodium as needed Diabetes mellitus type 1 On chronic insulin A1c: 6.8 on 07/20/2023 I discussed with Glycemic pharm regarding making adjustments to his insulin regimen as he has hypoglycemic episode yesterday evening. Trend of episodes in the past show similar pattern Adjust novolog. Also pharm to adjust total dosing today in view of plan for NPO after midnight for OR Will monitor Acute kidney injury superimposed on CKD3 Presented with creatinine of 2.75; baseline creatinine around 2.2 Initially improved with IV hydration Cr is 2.58 today Chronic anemia Hgb stable On Epogen weekly Continue folic acid, B12 Hypothyroidism Chronic Continue levothyroxine Depression Chronic, stable Continue fluoxetine, hydroxyzine Dyslipidemia Chronic On atorvastatin Chronic hyponatremia Sodium around 131-134 Monitor BMP DVT Prophylaxis: Heparin SQ CODE STATUS: Full Code Diet: DMI Dispo: From [facility], to return once stable I spent a total of 50 minutes coordinating, documenting and providing care for this patient excluding time spent in performance of separately billed services Admission and Anticipated Discharge Date Admission Date: August 25, 2023 Subjective Patient seen and examined Denied any new complaints Physical Exam Constitutional: + well hydrated; no acute distress Eyes: PERRL, conjunctivae normal, anicteric sclerae ENMT: external ear and nose normal, oropharynx normal Respiratory: normal respiratory effort, lungs clear to auscultation Cardiovascular: Rate/Rhythm: regular rate and regular rhythm S1 S2 Gastrointestinal (Abdomen): normal bowel sounds, soft, nontender, no hepatosplenomegaly Musculoskeletal: R leg bandaged Neurologic: PERRL, EOMI, accommodation nl, no face palsy, no dysarthria Psychiatric: A+Ox3, euthymic affect Results & Data Results & Data Vital Signs (Past 12 Hours) Vital Signs Temp Pulse Pulse Resp BP Pulse Ox O2 Del Method 09/09/23 11:20 36.3 C L 74 18 118/73 97 Room Air 09/09/23 07:41 73 09/09/23 07:29 36.8 C 78 18 137/80 98 Room Air 09/09/23 02:47 36.7 C 75 18 137/78 98 Room Air Laboratory Results Abnormal lab results 09/08/23 09/08/23 09/08/23 Range/Units 16:24 17:28 20:08 WBC (4.8-10.8) K/ul RBC (4.70-6.10) M/uL Hgb (14.0-18.0) g/dl Hct (42.0-52.0) % RDW Std Deviation (36.4-46.3) fL RDW Coeff of Minnie (11.5-14.5) % Plt Count (130-400) K/uL Sodium (136-145) mmol/L Potassium 5.6 H (3.5-5.1) mmol/L BUN (6-23) mg/dl Creatinine (0.6-1.4) mg/dl BUN/Creatinine Ratio (10-20) Glucose (70-99(Fasting)) mg/dl POC Glucose 127 H 63 L* (70-99) mg/dl 09/08/23 09/09/23 09/09/23 Range/Units 20:09 08:14 09:13 WBC 11.23 H (4.8-10.8) K/ul RBC 3.67 L (4.70-6.10) M/uL Hgb 9.8 L (14.0-18.0) g/dl Hct 30.2 L (42.0-52.0) % RDW Std Deviation 57.7 H (36.4-46.3) fL RDW Coeff of Minnie 19.3 H (11.5-14.5) % Plt Count 700 H (130-400) K/uL Sodium 134 L (136-145) mmol/L Potassium 5.6 H (3.5-5.1) mmol/L BUN 59 H (6-23) mg/dl Creatinine 2.58 H (0.6-1.4) mg/dl BUN/Creatinine Ratio 22.9 H (10-20) Glucose 242 H (70-99(Fasting)) mg/dl POC Glucose 69 L* 210 H (70-99) mg/dl 09/09/23 Range/Units 11:50 WBC (4.8-10.8) K/ul RBC (4.70-6.10) M/uL Hgb (14.0-18.0) g/dl Hct (42.0-52.0) % RDW Std Deviation (36.4-46.3) fL RDW Coeff of Minnie (11.5-14.5) % Plt Count (130-400) K/uL Sodium (136-145) mmol/L Potassium (3.5-5.1) mmol/L BUN (6-23) mg/dl Creatinine (0.6-1.4) mg/dl BUN/Creatinine Ratio (10-20) Glucose (70-99(Fasting)) mg/dl POC Glucose 173 H (70-99) mg/dl (4) CRF (chronic renal failure) Chronic kidney disease stage: unspecified stage Qualified Code(s): N18.9 - Chronic kidney disease, unspecified (6) Anemia Anemia type: unspecified type Qualified Code(s): D64.9 - Anemia, unspecified
[2023-09-09] MEDS: INSULIN ASPART PER UNIT CHARGE SC SCH (13:07)
[2023-09-10] MEDS: INSULIN ASPART PER UNIT CHARGE SC SCH (05:49)
[2023-09-10 08:19] LABS: Hematocrit (blood only) 31.3 % (42.0-52.0); Mean Corpuscular Hemoglobin 26.6 pg (25.0-34.0); Mean Corpuscular Hgb Conc 31.9 g/dL (32.0-36.0); Mean Corpuscular Volume 83.2 fL (80.0-100.0); Mean Platelet Volume 9.2 fL (9.4-12.4); Platelet Count 700 K/uL (130-400); RDW Coefficient of Variation 19.1 % (11.5-14.5); RDW Standard Deviation 57.9 fL (36.4-46.3); Red Blood Count 3.76 M/uL (4.70-6.10); White Blood Count 11.25 K/ul (4.8-10.8)
[2023-09-10] MEDS ORDERED: ATROPINE SULFATE 0.1 MG/ML 10ML SYR IV PRN (08:23)
[2023-09-10] MEDS ORDERED: fentaNYL citrate PF 100 MCG/2 ML VIAL IV PRN (08:23)
[2023-09-10] MEDS ORDERED: ePHEDrine sulfate 50 MG/ML AMP IV PRN (08:23)
[2023-09-10] MEDS ORDERED: ONDANSETRON INJ 2 MG/ML 2 ML VIAL IV PRN ×2 (08:23→12:50)
[2023-09-10] MEDS ORDERED: ROPIVACAINE 0.5% 5 MG/ML 30 ML VIAL ONE (08:27)
[2023-09-10 08:31] LABS: BUN Creatinine Ratio 24.9 (10-20); Calcium 8.8 mg/dl (8.6-10.3); Creatinine Clr Calc Pharmacy 29.5 ml/min; Est GFR (African American) 29.3 ml/min; Est GFR (Non-African American) 25.2 ml/min; Potassium 5.4 mmol/L (3.5-5.1)
--- NOTE | 2023-09-10 08:53 | Hospitalist Progress Note ---
Date of Service September 10, 2023 Assessment & Plan (1) Osteomyelitis of ankle or foot, acute: (2) Acute kidney injury superimposed on CKD: (3) Diarrhea: (4) CRF (chronic renal failure): (5) Cellulitis of right foot: (6) Anemia: (7) HTN (hypertension): Plan 58 year old man with PMHx significant for DM type I, CKD stage III, diabetic neuropathy, HTN, hypothyroidism, chronic hyperkalemia, chronic anemia who presents to the ED from [facility] for worsening right foot wound. Denied fever, chills. History: 05/2023 polymicrobial right heel wound that was treated with ertapenem and amoxicillin. 06/2023-07/2023 diabetic ulcer of right foot, osteomyelitis s/p wound debridement and calcaneal ostectomy, with wound vac. Bone pathology sample + MRSA, GBS, VRE. ID had recommended daptomycin x 6 weeks. Leukocytosis present on admission MRI of foot shows worsening osteomyelitis of the calcaneal tuberosity ESR elevated to 90, CRP elevated to 19.1 Mg per DL on August 27, 2023 R calcaneus Osteomyelitis Status post I&D of right heel wound with partial excision calcaneus osteotomy on August 27, 2023 Culture, right foot 08/27- grew K pneumoniae, ESBL E coli, Proteus, Bacteroides and Prevotella, the first 3 all sensitive to Ertapenem. Blood [id number] growth to date IntraOp Gram stain negative ID consulted- appreciate recs -recommended switching from Daptomycin to Zosyn before cultures were finalized. -Zosyn switched to Invanz on 08/30 -ID recommended amputation, stating likely infection would not be able to be cured with antibiotics only. S/p further resection of calcaneus for attempted clear margins with some delayed closure on 09/02/23 Currently on IV ertapenem Dr Bowen discussed with ID Dr Ellis on 09/04/23. ID strongly advising amputation. However, states that if IV antibiotics is needed for treatment continue with IV Invanz for 6 weeks. Pathology from 09/04/23 reviewed Patient was initially declining amputation and Podiatry has been trying to salvage limb He agreed to amputation on 09/08/23 Plan for OR for Right BKA today Will follow up with ID tomorrow regarding antibiotics after surgery Chronic hyperkalemia K: Around 4.5-5 on admission He was on daily Veltassa. However, he had been declining it for days, stating that it causes GI upset He only agreed to resume it yesterday Currently on low potassium diet K is 5.4 today Nephro recs noted Discussed with Nephro. Recommends po torsemide 20mg going forward Monitor K Diarrhea Diarrhea present upon arrival. Reported diarrhea x 2-3 days Resolved C. difficile negative Imodium as needed Diabetes mellitus type 1 On chronic insulin A1c: 6.8 on 07/20/2023 Monitor blood glucose Acute kidney injury superimposed on CKD3 Presented with creatinine of 2.75; baseline creatinine around 2.2 Initially improved with IV hydration Cr is 2.65 today Chronic anemia Hgb stable On Epogen weekly Continue folic acid, B12 Hypothyroidism Chronic Continue levothyroxine Depression Chronic, stable Continue fluoxetine, hydroxyzine Dyslipidemia Chronic On atorvastatin Chronic hyponatremia Sodium around 131-135 Monitor BMP DVT Prophylaxis: Heparin SQ held for OR CODE STATUS: Full Code Diet: DMI Dispo: From [facility], to return once stable I spent a total of 40 minutes coordinating, documenting and providing care for this patient excluding time spent in performance of separately billed services Admission and Anticipated Discharge Date Admission Date: August 25, 2023 Subjective Patient seen and examined Denied any new complaints Physical Exam Constitutional: + well hydrated; no acute distress Eyes: PERRL, conjunctivae normal, anicteric sclerae ENMT: external ear and nose normal, oropharynx normal Respiratory: normal respiratory effort, lungs clear to auscultation Cardiovascular: Rate/Rhythm: regular rate and regular rhythm S1 S2 Gastrointestinal (Abdomen): normal bowel sounds, soft, nontender, no hepatosplenomegaly Musculoskeletal: RLE bandaged Neurologic: PERRL, EOMI, accommodation nl, no face palsy, no dysarthria Psychiatric: A+Ox3, euthymic affect Results & Data Results & Data Vital Signs (Past 12 Hours) Vital Signs Temp Pulse Pulse Resp BP Pulse Ox O2 Del Method 09/10/23 07:27 36.5 C 73 18 124/77 97 Room Air 09/10/23 07:05 82 09/10/23 03:22 36.5 C 74 18 138/78 94 Room Air 09/10/23 00:09 36.4 C L 72 18 116/73 97 Room Air 09/09/23 21:57 75 Laboratory Results Abnormal lab results 09/09/23 09/10/23 09/10/23 Range/Units 19:57 00:03 05:25 WBC (4.8-10.8) K/ul RBC (4.70-6.10) M/uL Hgb (14.0-18.0) g/dl Hct (42.0-52.0) % MCHC (32.0-36.0) g/dL RDW Std Deviation (36.4-46.3) fL RDW Coeff of Minnie (11.5-14.5) % Plt Count (130-400) K/uL MPV (9.4-12.4) fL Sodium (136-145) mmol/L Potassium (3.5-5.1) mmol/L BUN (6-23) mg/dl Creatinine (0.6-1.4) mg/dl BUN/Creatinine Ratio (10-20) Glucose (70-99(Fasting)) mg/dl POC Glucose 133 H 169 H 182 H (70-99) mg/dl 09/10/23 09/10/23 09/10/23 Range/Units 07:49 08:18 12:07 WBC 11.25 H (4.8-10.8) K/ul RBC 3.76 L (4.70-6.10) M/uL Hgb 10.0 L (14.0-18.0) g/dl Hct 31.3 L (42.0-52.0) % MCHC 31.9 L (32.0-36.0) g/dL RDW Std Deviation 57.9 H (36.4-46.3) fL RDW Coeff of Minnie 19.1 H (11.5-14.5) % Plt Count 700 H (130-400) K/uL MPV 9.2 L (9.4-12.4) fL Sodium 135 L (136-145) mmol/L Potassium 5.4 H (3.5-5.1) mmol/L BUN 66 H (6-23) mg/dl Creatinine 2.65 H (0.6-1.4) mg/dl BUN/Creatinine Ratio 24.9 H (10-20) Glucose 149 H (70-99(Fasting)) mg/dl POC Glucose 140 H 147 H (70-99) mg/dl 09/10/23 Range/Units 16:52 WBC (4.8-10.8) K/ul RBC (4.70-6.10) M/uL Hgb (14.0-18.0) g/dl Hct (42.0-52.0) % MCHC (32.0-36.0) g/dL RDW Std Deviation (36.4-46.3) fL RDW Coeff of Minnie (11.5-14.5) % Plt Count (130-400) K/uL MPV (9.4-12.4) fL Sodium (136-145) mmol/L Potassium (3.5-5.1) mmol/L BUN (6-23) mg/dl Creatinine (0.6-1.4) mg/dl BUN/Creatinine Ratio (10-20) Glucose (70-99(Fasting)) mg/dl POC Glucose 260 H (70-99) mg/dl (4) CRF (chronic renal failure) Chronic kidney disease stage: unspecified stage Qualified Code(s): N18.9 - Chronic kidney disease, unspecified (6) Anemia Anemia type: unspecified type Qualified Code(s): D64.9 - Anemia, unspecified
[2023-09-10] MEDS ORDERED: PROPOFOL IV EMULSION 10 MG/ML 20 ML VIAL IV ONE ×2 (09:04→11:22)
[2023-09-10] MEDS ORDERED: MIDAZOLAM HCL 1 MG/ML 2ML VIAL ONE ×2 (09:04)
[2023-09-10] MEDS ORDERED: fentaNYL citrate PF 100 MCG/2 ML VIAL ONE (09:04)
--- NOTE | 2023-09-10 12:22 | Operative Report ---
Post Operative Report Pre & Post Diagnosis Operation Date: 09/10/23 09:00 Pre-Op Diagnosis: FOOT INFECTION Post-Op Diagnosis: FOOT INFECTION I identified the patient and participated in the time-out.: Yes Procedure Operation Date: 09/10/23 09:00 Actual Procedures p Amputation Below the Knee, Right (Right) - Castro Tomas MD Surgeon Heaven Tomas MD Caddie Shellie WEAVER Estimated Blood Loss 50 Findings Consistent with Post-Op Diagnosis see operative report Specimens see operative report Drains none Complications none Disposition Accompanied Patient To Recovery: Yes Indications This 58 year old male presented to the ED for complaints of right heel infection. Amputation was recommended by infectious disease due to recurrence of a postsurgical infection after previous calcaneal excision. He elected to proceed with surgical invention after being educated about potential risks and outcomes. Preoperative imaging was obtained. Description of Procedure Patient was taken to the operating room where he was given general anesthesia. He was prepped and draped in the usual sterile fashion. Please see Dr. Tomas's operative report for specifics of the procedure. I was present for the entire case from initial patient positioning through final closure. Assistance was provided in tissue retraction, hemostasis, final wound closure, and postsurgical splinting. The patient was taken to the recovery room in satisfactory condition. I attest to the content of the Intraoperative Record and any orders documented therein. Any exceptions are noted below.
--- NOTE | 2023-09-10 12:25 | Operative Report ---
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 He has undergone multiple surgical procedures on his right foot and attempt to eradicate the calcaneal osteomyelitis which have been unsuccessful. His executive wellness programs director Dr. Stout as well as the infectious disease doctor following him for his osteomyelitis recommended below-knee amputation. I had a long discussion with him about the risks and benefits of surgery, alternatives to surgery, and expected outcomes. After reviewing these he elected to proceed with surgery. All questions were answered. Informed consent was signed. Description of Procedure Patient was identified in the preoperative holding area where his surgical site was marked. He was given femoral and popliteal nerve blocks, then brought back to the main operating room where he was carefully moved onto the operating room table and general anesthesia was administered. All bony prominences were padded. Perioperative antibiotics were administered. Nonsterile tourniquet was placed in the proximal thigh. Ioban dressing was placed over his toes as well as his calcaneal wound to prevent cross-contamination during her surgical prep. His entire right lower extremity, including the Ioban, was prepped and then he was draped in the usual sterile fashion with a stockinette over the foot. Prior to incision a multidisciplinary timeout was called. All in the room were in agreement. I began by exsanguinating the limb with an Esmarch bandage. Tourniquet was inflated to 250 mmHg. Total tourniquet time for the case was 43 minutes. A fishmouth type incision was made starting approximately 10 cm below the tibial tubercle. I dissected down through subcutaneous tissues to level the fascia. The fascia overlying the anterior lateral compartments was then incised. I then used electrocautery to dissect through the muscle of the lateral compartment to identify the superficial peroneal nerve. This was then pulled into the wound and sharply amputated with a fresh scalpel blade and allowed to retract into the muscle of the lateral compartment. We then continued our dissection through the anterior compartments until were able to identify the anterior tibial artery with its associated veins and the deep peroneal nerve just above the interosseous membrane. Deep peroneal nerve was similarly pulled on and then amputated sharply with a scalpel and allowed to retract into the muscle. The artery and vein were then isolated and clipped with hemostats. #0 silk ties were then used to suture ligate the anterior tibial artery and associated veins. Next, the fibula was exposed subperiosteally. A saw was used to osteotomize the fibula and ankle direction so as to eliminate any sharp bony prominence laterally. Once this was complete the tibia was osteotomized approximately 1 cm distal to the fibular osteotomy site. Approximately 5 mm of the anterior tibial crest was then removed at a 45 degree angle with a saw so as to not leave a sharp bony edge sticking out anteriorly. A rasp was then used to rasp the edges of the saw cuts. Once this was complete the amputation knife was then slid along the posterior aspect of the tibia and fibula distally to the level of our skin incision. Specimen was passed off the operating room table and sent to pathology. Next, large arterial and venous branches of the posterior tibial artery and vein were identified and snapped. 0 silk ties were again used to suture ligate these. The posterior tibial nerve was then identified and dissected all the way proximal to the tibial osteotomy. I pulled on the nerve and then sharply amputated this with a knife allowing the nerve to retract proximally. Next, the tourniquet was let down and complete hemostasis was ensured. Once this was complete the surgical incision was irrigated out with copious amounts of normal saline. We then began to close the amputation stump. A 1.5 mm drill was used to make 3 drill holes in the anterior medial aspect of the tibia. 0 Vicryl sutures were passed through these and then a simple stitch pattern passed through the fascia overlying the gastrocnemius flap and tied down without difficulty. 0 Vicryl sutures were used for the anterior and lateral compartment fascia which was close to the gastrocnemius. Once the fascia was completely closed we then closed the skin with 2-0 Vicryl sutures. Small modifications to the skin incision were made to decrease the size of the dogears medially and laterally. Stapler was then used for the skin. Xeroform was then applied followed by 4 x 4 gauze and cast padding. Patient was then placed into a well molded plaster cast extending up to his mid thigh. He had a knee flexion contracture preoperatively so we tried to hold his knee as extended as possible which was approximately 15 degrees short of full knee extension. Once the plaster was dry the patient was awoke from anesthesia, transferred to the [facility], then transferred to the recovery room in stable condition. Postoperative course: Patient will be admitted back to the hospitalist service. He will continue his IV antibiotics as instructed by infectious diseases. Presumably he could have his antibiotic stopped within 24 hours of surgery since this was a clean incision. Of note, Dr. Miranda's anesthesiologist noted a superficial clot in the groin when doing the femoral nerve block. There was no clot of the femoral vein and he did not have any swelling to suggest a symptomatic DVT. However we will order Doppler ultrasound to evaluate for DVT in both extremities. DVT prophylaxis can begin tomorrow morning at the di scretion of his hospitalist team. Patient's leg should be elevated while in bed. Will need to follow-up 2 weeks from now for removal of his cast and staple removal. I attest to the content of the Intraoperative Record and any orders documented therein. Any exceptions are noted below.
--- NOTE | 2023-09-10 12:39 | Anesthesiology Progress Note ---
Date of Service September 10, 2023 Anesthesia Post Procedure Vital Signs Vital Signs: Temp Pulse Pulse Pulse Resp BP Pulse Ox 09/10/23 12:35 87 16 101/59 L 96 09/10/23 12:25 97.5 F L 89 20 101/53 L 96 09/10/23 12:15 90 19 98/51 L 99 09/10/23 12:06 97.5 F L 88 26 H 92/51 L 100 09/10/23 07:27 97.7 F 73 18 124/77 97 09/10/23 07:05 82 09/10/23 03:22 97.7 F 74 18 138/78 94 09/10/23 00:09 97.5 F L 72 18 116/73 97 09/09/23 21:57 75 09/09/23 19:57 97.7 F 70 18 116/65 98 09/09/23 16:02 70 09/09/23 15:40 97.5 F L 72 18 110/66 96 O2 Del Method O2 Flow Rate 09/10/23 12:35 Room Air 09/10/23 12:25 Room Air 09/10/23 12:15 Oxymask 4 09/10/23 12:06 Oxymask 9 09/10/23 07:27 Room Air 09/10/23 07:05 09/10/23 03:22 Room Air 09/10/23 00:09 Room Air 09/09/23 21:57 09/09/23 19:57 Room Air 09/09/23 16:02 09/09/23 15:40 Room Air Transfer of Care Handoff Completed per policy Notes Mental Status: alert / awake / arousable and participated in evaluation Patient Amnestic to Procedure: Yes Nausea / Vomiting: adequately controlled Pain: adequately controlled Airway Patency, RR, SpO2: stable & adequate BP & HR: stable & adequate Hydration State: stable & adequate Anesthetic Complications: no major complications apparent and Pt Satisfied with anesthetic care
[2023-09-10] MEDS ORDERED: diphenhydrAMINE 50 MG/ML VIAL IV PRN (12:50)
[2023-09-10] MEDS ORDERED: METOCLOPRAMIDE HCL INJ 5 MG/ML 2 ML VIAL IV PRN (12:50)
[2023-09-10] MEDS ORDERED: NALOXONE HCL 0.4 MG/1 ML VIAL/CARP IV PRN (12:50)
[2023-09-10] MEDS ORDERED: bisacodyL 10 MG SUPP PR PRN (12:50)
[2023-09-10] MEDS ORDERED: MAGNESIUM HYDROXIDE SUSP 30 ML UDC PO PRN (12:50)
[2023-09-10] MEDS: TRANEXAMIC ACID / 0.7% NACL 1000MG/100ML BAG IV ONE (12:52)
--- NOTE | 2023-09-10 16:38 | Ultrasound Report ---
BILATERAL LOWER EXTREMITY VENOUS DOPPLER CLINICAL HISTORY: r/o DVT right thigh left leg COMPARISON STUDY: Bilateral lower extremity venous Doppler ultrasound May 31, 2020. TECHNIQUE: Sonography of the deep venous system of the bilateral lower extremities was performed. Co mpression and augmentation were evaluated. FINDINGS: Prominent bilateral inguinal lymph nodes have benign imaging characteristics. The right com mon femoral, superficial femoral and popliteal veins were compressible. Patient status post right bel ow knee amputation. There is no deep venous thrombus within the left lower extremity. Augmentation wa s normal. Flow was shown within the deep left calf vessels. IMPRESSION: No evidence of deep venous thrombus within the bilateral lower extremities. ACT 112: Negative or not required by law. Electronically signed by: Wong Lazaro M.D. 09/10/2023 4:37 PM
[2023-09-10] MEDS: FERROUS GLUCONATE 324 MG TAB PO SCH (17:57)
[2023-09-10] MEDS: oxyCODONE HCL IR 5 MG TAB (IMMEDIATE RELEASE) PO PRN (18:02)
[2023-09-10] MEDS: LANTUS PER UNIT CHARGE SQ SCH (18:02)
[2023-09-10] MEDS: SENNA 8.6 MG TAB PO SCH (20:37)
[2023-09-10] MEDS: DOCUSATE SODIUM 100 MG CAP PO SCH (20:41)
[2023-09-11] MEDS: INSULIN ASPART PER UNIT CHARGE SC SCH (09:21)
[2023-09-11 09:49] LABS: Hematocrit (blood only) 27.9 % (42.0-52.0); Hemoglobin 8.9 g/dl (14.0-18.0); Mean Corpuscular Hemoglobin 26.8 pg (25.0-34.0); Mean Corpuscular Hgb Conc 31.9 g/dL (32.0-36.0); Mean Platelet Volume 9.3 fL (9.4-12.4); Platelet Count 674 K/uL (130-400); RDW Coefficient of Variation 19.4 % (11.5-14.5); RDW Standard Deviation 59.1 fL (36.4-46.3); Red Blood Count 3.32 M/uL (4.70-6.10); White Blood Count 13.34 K/ul (4.8-10.8)
--- NOTE | 2023-09-11 10:13 | Orthopedic Progress Note ---
Date of Service September 11, 2023 Assessment & Plan (1) S/P BKA (below knee amputation): Plan: 58 year old male POD1 s/p right BKA by Dr Tomas Leave cast/dressing place. Will remain for 2 weeks. We will see him in the office in two weeks for cast and suture removal. Pain control and dvt phx per primary. US BL LE were negative. Abx recs per ID Ice/elevate Admission and Anticipated Discharge Date Admission Date: August 25, 2023 Subjective Pt seen and examined bedside. POD 1 R BKA. He says he is having 10/10 pain. He denies f/c, cp, sob, n/v, cp. He says cast is fitting comfortably. He has no further questions or concerns. Review of Systems Review of Systems: per hpi Physical Exam Physical Exam: General: Pt laying in hospital bed AA&O, in NAD, calm and cooperative during exam Lower Extremity: Dressing/cast in tact, clean, fitting appropriately. Pt thigh soft and compressible. He is able to lift his stump. Results & Data Vital Signs (Past 12 Hours) Vital Signs Temp Pulse Resp BP Pulse Ox O2 Del Method 09/11/23 08:20 36.8 C 91 H 18 146/76 H 96 Room Air 09/11/23 02:56 36.9 C 88 18 134/68 98 Room Air 09/10/23 22:48 36.7 C 86 18 122/61 98 Room Air
[2023-09-11 10:14] LABS: BUN Creatinine Ratio 26.4 (10-20); Calcium 8.5 mg/dl (8.6-10.3); Creatinine Clr Calc Pharmacy 32.8 ml/min; Est GFR (African American) 33.2 ml/min; Est GFR (Non-African American) 28.6 ml/min; Potassium 5.4 mmol/L (3.5-5.1)
--- NOTE | 2023-09-11 12:11 | Hospitalist Progress Note ---
Date of Service September 11, 2023 Assessment & Plan (1) Osteomyelitis of ankle or foot, acute: (2) Acute kidney injury superimposed on CKD: (3) Diarrhea: (4) CRF (chronic renal failure): (5) Cellulitis of right foot: (6) Anemia: (7) HTN (hypertension): Plan 58 year old man with PMHx significant for DM type I, CKD stage III, diabetic neuropathy, HTN, hypothyroidism, chronic hyperkalemia, chronic anemia who presents to the ED from [facility] for worsening right foot wound. Denied fever, chills. History: 05/2023 polymicrobial right heel wound that was treated with ertapenem and amoxicillin. 06/2023-07/2023 diabetic ulcer of right foot, osteomyelitis s/p wound debridement and calcaneal ostectomy, with wound vac. Bone pathology sample + MRSA, GBS, VRE. ID had recommended daptomycin x 6 weeks. Leukocytosis present on admission MRI of foot shows worsening osteomyelitis of the calcaneal tuberosity ESR elevated to 90, CRP elevated to 19.1 Mg per DL on August 27, 2023 R calcaneus Osteomyelitis Status post I&D of right heel wound with partial excision calcaneus osteotomy on August 27, 2023 Culture, right foot 08/27- grew K pneumoniae, ESBL E coli, Proteus, Bacteroides and Prevotella, the first 3 all sensitive to Ertapenem. Blood [id number] growth to date IntraOp Gram stain negative ID was consulted and made recommendations -recommended switching from Daptomycin to Zosyn before cultures were finali zed. -Zosyn switched to Invanz on 08/30 -ID recommended amputation, stating likely infection would not be able to be cured with antibiotics only. S/p further resection of calcaneus for attempted clear margins with some delayed closure on 09/02/23 Currently on IV ertapenem Dr Bowen discussed with ID Dr Ellis on 09/04/23. ID strongly advising amputation. However, states that if IV antibiotics is needed for treatment continue with IV Invanz for 6 weeks. Pathology from 09/04/23 reviewed Patient was initially declining amputation and Podiatry has been trying to salvage limb He agreed to amputation on 09/08/23 Had Right BKA on 09/10/23 POD 1 Doing well I discussed with ID Dr Dumont. No further antibiotics recommended with source control Chronic hyperkalemia K: Around 4.5-5 on admission He was on daily Veltassa. However, he had been declining it for days, stating that it causes GI upset He only agreed to resume it yesterday Currently on low potassium diet K is 5.4 today Nephro recs noted Discussed with Nephro. Recommends po torsemide 20mg going forward Monitor K Diarrhea Diarrhea present upon arrival. Reported diarrhea x 2-3 days Resolved C. difficile negative Imodium as needed Diabetes mellitus type 1 On chronic insulin A1c: 6.8 on 07/20/2023 Monitor blood glucose Acute kidney injury superimposed on CKD3 Presented with creatinine of 2.75; baseline creatinine around 2.2 Initially improved with IV hydration Cr is 2.39 today Chronic anemia Hgb stable On Epogen weekly Continue folic acid, B12 Hypothyroidism Chronic Continue levothyroxine Depression Chronic, stable Continue fluoxetine, hydroxyzine Dyslipidemia Chronic On atorvastatin Chronic hyponatremia Sodium around 131-135 Monitor BMP DVT Prophylaxis: Heparin SQ CODE STATUS: Full Code Diet: DMI Dispo: From [facility], to return once stable Patient has been wheelchair bound for years per Pt and guards I called [facility] and spoke to RN. Reviewed patient's stay, plan and med changes She recommends better to dc tomorrow when they will have a physician in house I spent a total of 50 minutes coordinating, documenting and providing care for this patient excluding time spent in performance of separately billed services Admission and Anticipated Discharge Date Admission Date: August 25, 2023 Subjective Patient seen and examined Reports only surgical site soreness/pain well controlled Denied any other complaints Physical Exam Constitutional: + well hydrated; no acute distress Eyes: PERRL, conjunctivae normal, anicteric sclerae ENMT: external ear and nose normal, oropharynx normal Respiratory: normal respiratory effort, lungs clear to auscultation Cardiovascular: Rate/Rhythm: regular rate and regular rhythm S1 S2 Gastrointestinal (Abdomen): normal bowel sounds, soft, nontender, no hepatosplenomegaly Musculoskeletal: Rt BKA with cast Neurologic: PERRL, EOMI, accommodation nl, no face palsy, no dysarthria Psychiatric: A+Ox3, euthymic affect Results & Data Results & Data Vital Signs (Past 12 Hours) Vital Signs Temp Pulse Resp BP Pulse Ox O2 Del Method 09/11/23 08:20 36.8 C 91 H 18 146/76 H 96 Room Air 09/11/23 02:56 36.9 C 88 18 134/68 98 Room Air Laboratory Results Abnormal lab results 09/10/23 09/10/23 09/11/23 Range/Units 16:52 20:07 08:01 WBC (4.8-10.8) K/ul RBC (4.70-6.10) M/uL Hgb (14.0-18.0) g/dl Hct (42.0-52.0) % MCHC (32.0-36.0) g/dL RDW Std Deviation (36.4-46.3) fL RDW Coeff of Minnie (11.5-14.5) % Plt Count (130-400) K/uL MPV (9.4-12.4) fL Sodium (136-145) mmol/L Potassium (3.5-5.1) mmol/L BUN (6-23) mg/dl Creatinine (0.6-1.4) mg/dl BUN/Creatinine Ratio (10-20) Glucose (70-99(Fasting)) mg/dl POC Glucose 260 H 231 H 311 H* (70-99) mg/dl Calcium (8.6-10.3) mg/dl 09/11/23 09/11/23 09/11/23 Range/Units 08:02 09:15 12:10 WBC 13.34 H (4.8-10.8) K/ul RBC 3.32 L (4.70-6.10) M/uL Hgb 8.9 L (14.0-18.0) g/dl Hct 27.9 L (42.0-52.0) % MCHC 31.9 L (32.0-36.0) g/dL RDW Std Deviation 59.1 H (36.4-46.3) fL RDW Coeff of Minnie 19.4 H (11.5-14.5) % Plt Count 674 H (130-400) K/uL MPV 9.3 L (9.4-12.4) fL Sodium 132 L (136-145) mmol/L Potassium 5.4 H (3.5-5.1) mmol/L BUN 63 H (6-23) mg/dl Creatinine 2.39 H (0.6-1.4) mg/dl BUN/Creatinine Ratio 26.4 H (10-20) Glucose 342 H* (70-99(Fasting)) mg/dl POC Glucose 302 H* 228 H (70-99) mg/dl Calcium 8.5 L (8.6-10.3) mg/dl (4) CRF (chronic renal failure) Chronic kidney disease stage: unspecified stage Qualified Code(s): N18.9 - Chronic kidney disease, unspecified (6) Anemia Anemia type: unspecified type Qualified Code(s): D64.9 - Anemia, unspecified
--- NOTE | 2023-09-11 14:55 | Nephrology Progress Note ---
Date of Service September 11, 2023 Assessment & Plan (1) Hyperkalemia: Plan: continue Lokelma 10 gm tid. 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 Control blood glucose < 200. give insulin-lowers glucose also Continue Sodium Bicarb (2) Acute kidney injury superimposed on CKD: Plan: baseline creat about 2 and now is slightly higher given current situation of Infection/Surgery/Abx. No need of Iv fluid or further workup From underlying Diabetic nephropathy. he Sees nephrology in shelter through telemed. (3) Osteomyelitis of ankle or foot, acute: Plan: On abx and S/p surgery Plan Time spent 62 mins Admission and Anticipated Discharge Date Admission Date: August 25, 2023 Subjective some uncontrolled pain at RLE surgical site; no n/v, no sob, no other pain, no palpitations Review of Systems 2 Review of Systems: All systems reviewed & are unremarkable except as noted in Subjective Physical Exam 2 Constitutional: well developed and well nourished Eyes: EOM intact bilaterally ENMT: Ears: no external ear abnormality Nose: no external nose abnormality Mouth: + dry oral mucous membranes Neck: no nuchal rigidity Respiratory: normal respiratory effort Auscultation: + diminished lung sounds Gastrointestinal (Abdomen): Inspection/Auscultation: normal bowel sounds P ercussion/Palpation: abdomen soft; abdomen nontender Musculoskeletal: Extremities: strength 5/5 throughout and + lower leg abnormality (s/p R BKA) Skin: no rashes, warm and dry Neurologic: gutierrez, fluent but limited speech, no tremor Results & Data Vital Signs (Past 12 Hours) Vital Signs Temp Pulse Resp BP Pulse Ox O2 Del Method 09/11/23 12:25 36.9 C 91 H 18 135/71 93 Room Air 09/11/23 08:20 36.8 C 91 H 18 146/76 H 96 Room Air 09/11/23 02:56 36.9 C 88 18 134/68 98 Room Air Laboratory Results 09/11/23 09:15 09/11/23 09:15
[2023-09-12 08:06] LABS: Hemoglobin 8.6 g/dl (14.0-18.0); Mean Corpuscular Hgb Conc 31.9 g/dL (32.0-36.0); Mean Corpuscular Volume 84.9 fL (80.0-100.0); Mean Platelet Volume 9.5 fL (9.4-12.4); Platelet Count 623 K/uL (130-400); RDW Coefficient of Variation 19.2 % (11.5-14.5); RDW Standard Deviation 59.1 fL (36.4-46.3); Red Blood Count 3.18 M/uL (4.70-6.10); White Blood Count 11.56 K/ul (4.8-10.8)
[2023-09-12 08:45] LABS: BUN Creatinine Ratio 26.9 (10-20); Calcium 8.3 mg/dl (8.6-10.3); Creatinine Clr Calc Pharmacy 32.9 ml/min; Est GFR (African American) 33.3 ml/min; Est GFR (Non-African American) 28.7 ml/min; Potassium 5.3 mmol/L (3.5-5.1)
--- NOTE | 2023-09-12 08:52 | Pharmacy Report ---
Pharmacy Glycemic Short Note 2 - Date of Service September 12, 2023 - Glycemic Short BSG Results (Last 24 hours): 09/11/23 09/11/23 09/11/23 09:15 12:10 17:11 Glucose 342 H* POC Glucose 228 H 167 H 09/11/23 09/12/23 09/12/23 20:36 08:18 08:18 Glucose POC Glucose 122 H 347 H* 330 H* OUTPATIENT ANTIDIABETIC REGIMEN: * Lantus 14 units daily, regular insulin 2 units bid + SSI HbA1c: 7.2% (09/04/23) ASSESSMENT: 09/12/23: * Fasting BSG of 330 mg/dL this morning, elevated on 09/11 as well - will increase basal insulin today (keep once daily) * Patient previously controlled with CF of 40 and carb ratio of 20. Loosened at lunch, dinner, HS more recently due to low on 09/08. * POD #2 s/p right below knee amputation * Ertapenem completed 09/08/23: * 58 year old currently admitted for bone/joint infection - managed on ertapenem. Pharmacy consulted for glycemic management, patient type 1 diabetic. Patient with low BSG yesterday evening at time of consult. Novolog parameters loosened. Patient known to glycemic service from other admissions, most recently last month. Plan to utilize parameters similar to last admission which resulted in stable blood sugars. PLAN FOR INPATIENT GLYCEMIC CONTROL: * Basal insulin - increase * Lantus 13 units SQ daily * Bolus insulin - tighten carb ratio at lunch, dinner, HS * NovoLog per scale ACHS or Q6hrs while NPO * Goal Range: Low 120 mg/dL - High 150 mg/dL * Correction Factor: 40 mg/dL/unit * Nutritional / Prandial insulin per carb ratio of 1 unit per 20 grams CHO consumed at breakfast * Nutritional / Prandial insulin per carb ratio of 1 unit per 25 grams CHO consumed at lunch, dinner, and HS
[2023-09-12] MEDS: LANTUS PER UNIT CHARGE SQ SCH (09:16)
--- NOTE | 2023-09-12 12:41 | Discharge Summary ---
Date of Service September 12, 2023 Admission HPI Per Admitting Provider Patient is 58-year-old male with PMH DM type I, CKD stage III, diabetic neuropathy, HTN, hypothyroidism, chronic hyperkalemia, chronic anemia, and other problems listed below who presents to the ED from [facility] for foot wound. History obtained from patient as well as inpatient chart review. Patient with history hospitalization 05/19/2023-05/28/2023 for polymicrobial right heel wound that was treated with ertapenem and amoxicillin. History hospitalization 07/19/2023-07/31/2023 for diabetic ulcer of right foot, osteomyelitis s/p wound debridement and calcaneal ostectomy, with wound vac. Bone pathology sample + MRSA, GBS, VRE. Initially treated with vancomycin and meropenem and then meropenem was discontinued and switched to daptomycin. ID consulted and recommended daptomycin x 6 weeks. Patient states has been on daily daptomycin. He states area has not been healing and is swollen, red and has discharge. He states he has been using wound vac. Chronic neuropathy and denies pain to foot. Patient states the past couple days has had loose watery stool several episodes daily. He states he started Imodium and today did not have loose stools. Denies fever/chills, diaphoresis, N/V, CABRERA, dizziness, syncope, CP, SOB, palpitations, cough, sore throat, rhinorrhea, abdominal pain, extremity weakness, urinary symptoms. Admission Exam Per Admitting Provider General: no distress, chronic ill appearing male Head: normocephalic, atraumatic Eyes: conjunctiva non-injected, anicteric ENT: normal inspection external ears, nose, mucous membranes moist Neck: supple, trachea midline Lungs: clear, no respiratory distress, no wheezing/rhonchi/rales CV: RRR, no murmur Abd: normal BS, soft, non-tender Ext: no cyanosis, no calf tenderness; RLE: +large deep ulcer to right calcaneus with foul odor with surrounding erythema and edema to entire foot, area nontender to palpation Neuro: A&O x 3, no focal deficits noted, normal affect Skin: warm, dry, RLE as above Principal Diagnosis Right foot osteomyelitis Status post Right Below Knee Amputation Hyperkalemia XOCHITL on CKD Discharge Exam Constitutional + well hydrated; no acute distress Eyes PERRL, conjunctivae normal, anicteric sclerae ENMT external ear and nose normal, oropharynx normal Respiratory normal respiratory effort, lungs clear to auscultation Cardiovascular Rate/Rhythm: regular rate and regular rhythm S1 S2 Gastrointestinal (Abdomen) normal bowel sounds, soft, nontender, no hepatosplenomegaly Musculoskeletal Right BKA in cast Neurologic PERRL, EOMI, accommodation nl, no face palsy, no dysarthria Psychiatric A+Ox3, euthymic affect Discharge Data Allergies Allergy/AdvReac Type Severity Reaction Status Date / Time sodium chloride AdvReac Unknown CONTRAINDIC Verified 07/19/23 15:29 [From [place] Nasal] ATED. Consultations 08/25/23 17:25 Consult Podiatry Stat 08/25/23 18:20 ED Decision to Admit Stat 08/25/23 21:36 Consult Podiatry Routine 08/28/23 15:45 Consult Infectious Diseases Routine 09/07/23 07:34 Consult Nephrology Routine 09/08/23 10:13 Consult Orthopedic Surgery Routine Procedures Performed Operation Date: 09/10/23 09:00 Actual Procedures p Amputation Below the Knee, Right (Right) - Castro Tomas MD Ordered Studies 08/25/23 19:26 MRI Ankle [MR ankle RT wo con] Stat 09/10/23 08:19 US - OR guided needle placemen Routine 09/10/23 12:50 US venous doppler [facility] Urgent Hospital Course (1) Osteomyelitis of ankle or foot, acute: (2) Acute kidney injury superimposed on CKD: (3) Diarrhea: (4) CRF (chronic renal failure): (5) Cellulitis of right foot: (6) Anemia: (7) HTN (hypertension): Plan 58 year old man with PMHx significant for DM type I, CKD stage III, diabetic neuropathy, HTN, hypothyroidism, chronic hyperkalemia, chronic anemia who presents to the ED from [facility] for worsening right foot wound. Denied fever, chills. History: 05/2023 polymicrobial right heel wound that was treated with ertapenem and amoxicillin. 06/2023-07/2023 diabetic ulcer of right foot, osteomyelitis s/p wound debridement and calcaneal ostectomy, with wound vac. Bone pathology sample + MRSA, GBS, VRE. ID had recommended daptomycin x 6 weeks. Leukocytosis present on admission MRI of foot shows worsening osteomyelitis of the calcaneal tuberosity ESR elevated to 90, CRP elevated to 19.1 Mg /dl on August 27, 2023 R calcaneus Osteomyelitis Status post I&D of right heel wound with partial excision calcaneus osteotomy on August 27, 2023 Culture, right foot 08/27- grew K pneumoniae, ESBL E coli, Proteus, Bacteroides and Prevotella, the first 3 all sensitive to Ertapenem. Blood [id number] growth to date IntraOp Gram stain negative Patient was on IV antibiotics while in the hospital S/p further resection of calcaneus for attempted clear margins with some delayed closure on 09/02/23 Patient was initially declining amputation and Podiatry has been trying to salvage limb He later agreed to amputation on 09/08/23 Had Right BKA on 09/10/23 POD 2 Doing well Pain is controlled Patient is to follow up with Ortho surgery in 2 weeks for cast and suture removal No need for further antibiotics at this time Chronic hyperkalemia Acute kidney injury superimposed on CKD3 Presented with creatinine of 2.75; baseline creatinine around 2.2 Initially improved with IV hydration Cr is 2.38 today K is 5.3 today Was started on torsemide 20mg daily Nephrology recommends continuing veltassa/bicarb on dc, to get BMP in 72hr and to follow up with nephrology Diarrhea Diarrhea present upon arrival. Reported diarrhea x 2-3 days Resolved C. difficile negative Diabetes mellitus type 1 On chronic insulin A1c: 6.8 on 07/20/2023 Chronic anemia Hgb stable On Epogen weekly Continue folic acid, B12 Hypothyroidism Chronic Continue levothyroxine Depression Chronic, stable Continue fluoxetine, hydroxyzine Dyslipidemia Chronic On atorvastatin Chronic hyponatremia Sodium around 131-135 I called [facility] and updated Provider at facility about plans and recommendations Total Time Total Time Spent Total Time Spent (In Minutes): 45 Total Time Includes: Examination of the Patient, Discharge Planning, Medication Reconciliation, Communication With Other Providers and Other Discharge Plan Discharge Items [facility] Reason For Visit: FOOT INFECTION Discharge Diagnosis: Right foot osteomyelitis Status post Right Below Knee Amputation Hyperkalemia Activity: Resume your previous activity Non-emergency contact: Primary Care Provider Call non-emergency contact if: you have any medication questions and your symptoms worsen Follow-up/Referrals: [place] Drummond PA-C [[facility]] - (2 weeks for cast and suture removal. fpc will need to call to schedule.) Deniz ESQUIVEL [Primary Care Provider] - Diet: Carb Consistent or DM2 and Heart Healthy Addtl Attending Provider Instructions: Mr Fitch You came to the hospital with worsening right foot wound. You were managed for Right foot osteomyelitis. Had wound debridement and u ltimately right Below Knee amputation. You were started on torsemide 20mg daily for management of your hyperkalemia Please ensure you follow up with Surgeon Please check BMP in 72hours and follow up result with Nephrology Please ensure follow up with a Temporary Administrative Assistant for management of your Chronic kidney disease and hyperkalemia. Addtl Tow Feeder Provider Instructions: Keep cast in place for 2 weeks Follow up with MONA Drummond PA-C in two weeks for cast and suture removal. Pending Studies at Discharge: No Stand-Alone Forms: My [facility] Skilled Items Patient informed of condition?: Yes Discharge Level of Care: Other Communicable Disease: No Discharge Prognosis: Stable Lines: None Urinary Catheter: No Medications and DC Order Prescriptions: New torsemide 20 mg Tablet 20 mg PO QAM Qty: 30 0RF oxycodone 5 mg Tablet 5 mg PO Q6H PRN (Reason: pain) Qty: 20 0RF Continued Epogen 10,000 unit/mL solution 10,000 unit subcut WK Rx Instructions: FRIDAYS atorvastatin 40 mg Tablet 40 mg PO HS ascorbic acid (vitamin C) [Vitamin C] 500 mg Tablet 500 mg PO QAM sodium bicarbonate 650 mg Tablet 650 mg PO BID Novolin R Regular U100 Insulin 100 unit/mL Solution 1 sliding scale dose SUBCUT USEASDIRECTD PRN (Reason: Hyperglycemia) Rx Instructions: BSG 150-200=2 UNITS, 201-250=4 UNITS, 251-300=6 UNITS, 301-350=8 UNITS, 351- 400=10 UNITS, 401-450=12 UNITS, >450 CALL MD. alendronate 70 mg Tablet 70 mg PO WK Rx Instructions: TAKE THIS MED EVERY MONDAY IN THE MORNING ON AN EMPTY STOMACH aspirin 81 mg Tablet,Delayed Release (Dr/Ec) 81 mg PO QAM Dialyvite 800 with Zinc 50 0.8-50 mg Tablet 1 tab PO DAILY fluoxetine 20 mg Capsule 40 mg PO QAM hydroxyzine pamoate 50 mg Capsule 50 mg PO HS levothyroxine 150 mcg Tablet 150 mcg PO DAILYBB metoclopramide HCl 10 mg Tablet 10 mg PO ACHS Rx Instructions: TAKE ONE TABLET, ORALLY, FOUR TIMES DAILY 15 MINUTES BEFORE MEALS AND AT BEDTIME ondansetron 8 mg Tablet,Disintegrating 8 mg PO .EVERY 8 HOURS pantoprazole 40 mg Tablet,Delayed Release (Dr/Ec) 40 mg PO BID tamsulosin 0.4 mg Capsule 0.4 mg PO HS Veltassa 25.2 gram Powder In Packet 25.2 g PO QPM Rx Instructions: DISSOLVE ONE PACKET IN WATER AND DRINK ONCE DAILY 3 HOURS BEFORE MEALS ergocalciferol (vitamin D2) 50 mcg (2,000 unit) Capsule 50 mcg PO WK Rx Instructions: THURSDAYS Novolin R Regular U100 Insulin 100 unit/mL Solution 2 unit subcut BID Rx Instructions: TAKES AT 1100 & 1630 folic acid 1 mg Tablet 1 mg PO QAM Qty: 30 0RF insulin glargine 100 unit/mL solution 14 unit SUBCUT DAILY acetaminophen [Tylenol Extra Strength] 500 mg Tablet 1,000 mg PO TID loperamide [Imodium A-D] 2 mg Capsule 4 mg PO BID PRN (Reason: LOOSE STOOLS) Glucagon Emergency Kit (human) 1 mg Recon Soln 0 mg subcut UD PRN (Reason: low blood sugar) cyanocobalamin (vitamin B-12) [Vitamin B-12] 100 mcg Tablet 100 mcg PO DAILY Lactobacillus acidoph-L.bulgar [Floranex] 1 million cell Tablet 1 tab PO TIDM dextrose [Glutose-15] 40 % Gel 1 ea PO DAILY PRN (Reason: Hypoglycemia) Discontinued Daptomycin 750mg/Ns 750 mg IV DAILY Discharge Orders: Discharge Order (Routine); Ordered 09/12/23 Ordered By: Nichol Whatley/Other Patient Handouts: Nutrition for Wound Healing Admission Data Admit Date/Time: 08/25/23 19:50 Attending Provider: Nichol Robles I. Admit Provider: Mirtha Bowen [facility] Other Providers: Celestino Stout; Mirtha Bowen; Eduin Campos; Dominic Robles; Yao Harper I.; Caden Ellis II; Dulce Dumont; Miguel Cary; Austyn Vargas; Sage Keenan; Candido Peña; Javier Del Valle; Chino Patel; Castro Tomas Other Interventions: Discharge Summary Assessment (RN) Last Done: 09/12/23 12:43
--- NOTE | 2023-09-14 09:14 | Coding Query ---
To promote full compliance with coding requirements relating to patient care, provider participation is requested in all cases of career development consultant uncertainty. Please assist us with the question(s) below: Coding Question(s): The diagnosis below was documented in the Addendum on the 09/01 Hospitalist Progress Note, then subsequently fell off all further documentation. Please indicate if it is still a possible diagnosis or ruled out. Physician's Response(s): METABOLIC ENCEPHALOPATHY - (documentation on addendum on the 08/29 Hospitalist Progress Notes of, "Metabolic encephalopathy likely secondary to hyponatremia Patient presented with confusion with sodium of 121; improvement in sodium level to 137 Continue to monitor mentation. Continue delirium precaution): ( X ) Diagnosed and POA ( ) Diagnosed and not POA ( ) Diagnosed and POA status is clinically undetermined ( ) Ruled out ( ) Other (please specify) MTDD
--- NOTE | 2023-09-14 09:22 | Coding Query ---
CODING QUERY To promote full compliance with coding requirements relating to patient care, provider participation is requested in all cases of eating disorder psychologist uncertainty. Please assist us with the question(s) below: Coding Question(s): The 2/2 ER Visit Note documents, "Infected surgical wound of the right heel, acute", and there is no other documentation in the record of infected surgical wound, and the 2/2 Orthopedic Consultation documents, "(1) Osteomyelitis: Patient seen and evaluated in [facility] Emergency Department POD C03. Reviewed right heel wound, exposed bone, adjacent erythema WBC 17 Reviewed diagnostic x-ray, MRI. Patient admitted to floor for right foot cellulitis, osteomyelitis right calcaneus. Plan for right heel wound debridement, excision of nonviable bone right foot. Thank you for allowing me to participate in the care of this Patient. (2) Diabetic infection of right foot: (3) Diabetic neuropathy:". Due to the documentation on the ER, please clarify below, regarding documentation of Infected surgical wound of the right heel: ( ) Infection is likely postprocedural complication ( x) Infection is Diabetic infection, and there is no postprocedural complication ( ) Infection is Other: Please Specify Physician's Response(s): Thank you Leslie Dodge Principal Diagnosis: "that condition established after study, to be chiefly responsible for occasioning the admission of the patient to the hospital for care." Co-Existing Principal Diagnosis: "when two or more diagnoses equally meet the criteria for principal diagnosis as determined by the circumstances of admission, diagnostic work up, and/or therapy provided, and the Alphabetic Index, Tabular List, or another coding guideline does not provide sequencing direction, any one of the diagnoses may be sequenced first." "When the physician has documented what appears to be a current diagnosis in the body of the record, but has not included the diagnosis in the final diagnostic statement, the physician should be asked whether the diagnosis should be added." (Source Coding Clinic 2 QTR90. p3-4) [place]
== END 2023-09-12 20:41 | DRG 616 ==
LOC: ED 15:11 → 2W 19:50 → SUATTDRO 19:50 → 2W 21:23